=== PATIENT | male | born 1955 | race Caucasian/White ===

== ENCOUNTER 2022-09-13 20:25 | Emergency (ER) | payer OTHER, MEDICARE, SELFPAY ==
[2022-09-13 20:26] VITALS: BP 139/86; PULSE 71; RESP 16; TEMP 36.2; O2SAT 97
[2022-09-13 20:56] VITALS: BMI 25.0
--- NOTE | 2022-09-13 21:04 | RAD_ITS ---
INDICATION: Injury/Pain EXAMINATION/TECHNIQUE: X-RAY - RIGHT XR Foot 3 VIEWS COMPARISON: FINDINGS: SOFT TISSUES: No soft tissue swelling or gas. No radiopaque foreign body. BONES/JOINTS: No acute fracture or subluxation.. There is an orthopedic screw through the distal end of the talus. Normal alignment. Preservation of the joint space.. No sclerotic or destructive changes observed. RAD/Foot min 3 Views IMPRESSION: No acute bony injury. Electronically Signed: Brady Feliciano DO at 22:49 EDT ,
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
--- NOTE | 2022-09-13 22:14 | ED.RN ---
Pt initially states he needed drug screening, then later told another RN he did not. Later this RN called to room, pt stating he made a mistake and really does need drug screening per employer request. Pt had configuration release manager Christian Rodriguez on speaker phone with this RN at bedside. Christian states pt is required to have drug screening. Cindy Care still in ED, Mireya notified and states she will go speak to pt.
--- NOTE | 2022-09-13 22:23 | ED.RN ---
After speaking to Mireya from [facility], Christian Rodriguez employer's ship manager decided pt did not require drug screen.
== END 2022-09-13 23:20 | disposition home or self-care (01) ==
PROVIDERS: Emergency Provider Emergency Medicine; Visit Provider Emergency Medicine
DX: S93.601A Unspecified sprain of right foot, initial encounter (principal); F17.210 Nicotine dependence, cigarettes, uncomplicated; V09.29XA Pedestrian injured in traffic accident involving other motor vehicles, initial encounter; Y99.0 Civilian activity done for income or pay
CPT/HCPCS: 73630; 99283

== ENCOUNTER 2024-11-16 05:55 | Inpatient (IN) | payer MEDICARE, BC, SELFPAY ==
[2024-11-16] VITALS (10 sets, daily range): BP systolic 115–151; BP diastolic 70–80; PULSE 71–97; RESP 15–22; TEMP 36.9–39.6; O2SAT 93–99; BMI 24.8
--- NOTE | 2024-11-16 06:08 | CT_ITS ---
EXAM: CT Head Without Intravenous Contrast CLINICAL INDICATION: HEADACHE TECHNIQUE: Axial computed tomography images of the head/brain without intravenous contrast. This CT exam was performed using one or more of the following dose reduction techniques: automated exposure control, adjustment of the mA and/or kV according to patient size, and/or use of iterative reconstruction technique. COMPARISON: No relevant prior studies available. FINDINGS: BRAIN AND EXTRA-AXIAL SPACES: The cerebral and cerebellar sulci are mildly prominent consistent with mild brain atrophy. No acute intracranial hemorrhage, midline shift or mass effect. If symptoms persist, further evaluation with MRI is recommended. Mild areas of decreased attenuation in the deep cerebral white matter are consistent with mild small vessel ischemic/degenerative changes. BONES/JOINTS: Unremarkable. No acute fracture. SOFT TISSUES: Unremarkable. SINUSES: Mucosal thickening of the ethmoid sinuses. MASTOID AIR CELLS: Unremarkable as visualized. No mastoid effusion. CT/Brain/Head without Contrast IMPRESSION: 1. No acute intracranial hemorrhage, midline shift or mass effect. If symptoms persist, further evaluation with MRI is recommended. 2. Mild small vessel ischemic/degenerative changes. Reading Location: [id number]
[2024-11-16] MEDS: 0.9% Normal Saline (1000mL) 1,000 ML 999 ML IV (06:32)
--- NOTE | 2024-11-16 06:45 | RAD_ITS ---
EXAM: XR Chest, 1 View CLINICAL INDICATION: WEAKNESS TECHNIQUE: Frontal view of the chest. COMPARISON: No relevant prior studies available. FINDINGS: LUNGS AND PLEURAL SPACES: Unremarkable. No consolidation. No pneumothorax. HEART: Unremarkable. No cardiomegaly. MEDIASTINUM: Unremarkable. Normal mediastinal contour. BONES/JOINTS: Unremarkable. No acute fracture. RAD/Chest 1 View (Portable) IMPRESSION: No acute cardiopulmonary process. Reading Location: [id number]
--- OUTSIDE RECORDS SUMMARY | 2024-11-16 06:52 | XMS RPT_ITS | CCD ---
Author Organization [facility] Care Team Providers Care Model Maker Name Role Phone Unknown, Referring Provider Unavailable Unav ailable PCP, NONE Primary Care Unavailable Ryan Cohn Attending Unavailable Ryan Cohn Attending Unavailable Ryan Cohn Primary Care Unavailable DOMINIC WEBBER Attending Unavail able DOMINIC WEBBER Referring Unavail able UNKNOWN, PCP Primary Care Unavailable Ryan Cohn Attending Unavailable UNKNOWN, PCP Primary Care Unavailable Unavailable Primary Care Provider Unavailabl e Unavailable Unavailable Dr. Juana Scales Attending Unava ilable Danica, Dr. House Admitting Unava ilable Danica, Dr. House Attending Unava ilable Danica, Dr. House Referring Unava ilable Danica, Dr. House Admitting Unava ilable Erik Cota MD Primary Care Provider Ms. Svitlana Chino Attending U Anya Barriga RN Unavailable [phone] UNKNOWN, PCP Primary Care Unavailable MD JUANA SCALES Referring Unavai labMD JUANA Jason Attending Unavai labjodi UNKNOWN, PCP Primary Care Unavailable MD RYAN COHN Attending Unavailable Ryan Cohn Admitting Unavailable RYLEE HOLBROOK Attending Unavailable MD RYAN COHN Admitting Unavailable MD RYAN COHN Admitting Unavailable UNKNOWN, PCP Primary Care Unavailable MD RYAN COHN Attending Unavailable UNKNOWN, PCP Primary Care Unavailable MD RYAN COHN Attending Unavailable UNKNOWN, PCP Primary Care Unavailable MD RYAN COHN Referring Unavailable Erica, Dr. Scott Carmona Attending Jeannie vailable UNKNOWN, PCP Primary Care Unavailable MD RYAN COHN Referring Unavailable Erica, Dr. Scott Carmona Attending Jeannie vailable MD RYAN COHN Admitting Unavailable UNKNOWN, PCP Primary Care Unavailable MD YRAN COHN Attending Unavailable UNKNOWN, PCP Primary Care Unavailable MD RYAN COHN Attending Unavailable MD RYAN COHN Admitting Unavailable UNKNOWN, PCP Primary Care Unavailable Toni, Ms. Salgado Fatimah Attending Unav ailable UNKNOWN, PCP Primary Care Unavailable MD RYAN COHN Referring Unavailable Sanket Burgess Attending Unavailable UNKNOWN, PCP Primary Care Unavailable Sanket Burgess Referring Unavailable Sanket Burgess Attending Unavailable UNKNOWN, PCP Primary Care Unavailable MD RYAN COHN Referring Unavailable Lauren, Dr. Matt Colón Attending Unavailab le UNKNOWN, PCP Primary Care Unavailable ANTONY, JAMES TAYLOR Referring Unavailable ANTONY, JAMES TAYLOR Attending Unavailable UNKNOWN, UNKNOWN Referring Unavailable MD JUANA SCALES Attending MD JUANA Jim Referring MD JUANA Jim Attending Ori de la fuente UNKNOWN, PCP Primary Care Unavailable MD JUANA SCALES Referring MD JUANA Jim Attending Ori labjodi UNKNOWN, PCP Primary Care Unavailable MD JUANA SCALES Referring MD UJANA Jim Attending Ori labjodi Rahman MD Tatiana Unavailable Unavailable Primary Care Provider Unavailabl e JUANA SCALES Attending Unavailab Erik Ludwig MD Primary Care Provider Spieldenner Gildardo RAMIREZ Primary Care Provide r GILDARDO FOSTER Primary Care Unavaila JESSE Nguyễn Attending Unavailable YON QUINTEROS Referring Unavaila ble YON QUINTEROS Admitting Unavaila ble ALDAIR, HARSH STEVENSON Attending Unavailable GILDARDO FOSTER Primary Care Unavaila ble SPIGILDARDO MCHUGH Primary Care Unavaila ble ALDAIR, HARSH STEVENSON Attending Unavailable ALDAIR, HARSH STEVENSON Admitting Unavailable GILDARDO FOSTER Primary Care Unavaila ble SPIELDENNEGILDARDO Johnson Attending Unavaila ble SPIELDENNER, GILDARDO DELGADO Primary Care Unavaila ble SPIELDENNER, GILDARDO DELGADO Attending Unavaila ble SORTFRANTZ FLANNERY Attending Unavailable SPIELDENNER, GILDARDO DELGADO Primary Care Unavaila ble SPIELDENNER, GILDARDO DELGADO Primary Care Unavaila ble SPIELDENNER, GILDARDO DELGADO Attending Unavaila ble SPIELDENNER, GILDARDO DELGADO Referring Unavaila ble SPIELDENNER, GILDARDO DELGADO Admitting Unavaila ble SPIELDENNER, GILDARDO DELGADO Primary Care Unavaila ble ALCANTARA, SAHIL LEAL Attending Unavailab le SPIELDENNER, GILDARDO DELGADO Primary Care Unavaila ble ALCANTARA, SAHIL LEAL Attending Unavailab le SPIELDENNER, GILDARDO DELGADO Primary Care Unavaila ble HERON WILLIS Attending Unavaila ble ALDAIR, YON HCALO Referring Unavaila ble Generic Provider MD, No Assigned Pcp Primary Car e Provider Unavailable Barata Rodolfo RENE Unavailable Generic Provider MD, No Assigned Pcp Primary Car e Provider Unavailable Podlogar HEAD START DIRECTOR.JAMES, Naima Unavailable ALEX RODOLFO Alona Attending Unavailable GENERIC PROVIDER, NO ASSIGNED PCP Primary Care Unavailable GENERIC PROVIDER, NO ASSIGNED PCP Primary Care Unavailable BARATA RODOLFO M Attending Unavailable GENERIC PROVIDER, NO ASSIGNED PCP Primary Care Unavailable BARATA, RODOLFO M Attending Unavailable BARATA, RODOLFO M Referring Unavailable GENERIC PROVIDER, NO ASSIGNED PCP Primary Care Unavailable GENERIC PROVIDER, NO ASSIGNED PCP Primary Care Unavailable BARATA, RODOLFO M Attending Unavailable GENERIC PROVIDER, NO ASSIGNED PCP Primary Care Unavailable BARATA, RODOLFO M Referring Unavailable GENERIC PROVIDER, NO ASSIGNED PCP Primary Care Unavailable BARATA, RODOLFO M Referring Unavailable GENERIC PROVIDER, NO ASSIGNED PCP Primary Care Unavailable BARATA, RODOLFO M Attending Unavailable BARATA, RODOLFO M Referring Unavailable GENERIC PROVIDER, NO ASSIGNED PCP Primary Care Unavailable ROSALINDA HUYNH Referring Unavailable SPIELDENNER, GILDARDO DELGADO Attending Unavaila ble SPIELDENNER, GILDARDO DELGADO Primary Care Unavaila ble YON QUINTEROS Attending Unavaila ble SPIELDENNER, GILDARDO DELGADO Primary Care Unavaila ble QUINTEROS, YON GIRISHKAYLEIGH Referring Unavaila ble SPIELDENNER, GILDARDO DELGADO Primary Care Unavaila ble YON QUINTEROS Attending Unavaila ble QUINTEROS, YON GIRISHKAYLEIGH Referring Unavaila ble SPIELDENNER, GILDARDO DELGADO Primary Care Unavaila ble ISAI BAZAN Attending Unavailab ISAI Pinto Referring Unavailab SAHIL Foster Admitting Unavailab SAHIL Foster Attending Unavailab le SPIELDENNERGILDARDO Primary Care Unavaila ble SPIELDENNER, GILDARDO DELGADO Primary Care Unavaila ble ALDAIR, YON ISABEL Attending Unavaila ble ALDAIR, YON ISABEL Referring Unavaila ble SPIELDENNER, GILDARDO DELGADO Primary Care Unavaila ble SPIELDENNER, GILDARDO DELGADO Attending Unavaila ble SPIELDENNER, GILDARDO DELGADO Referring Unavaila ble SPIELDENNER, GILDARDO DELGADO Primary Care Unavaila ble SPIELDENNER, GILDARDO DELGADO Attending Unavaila ble SPIELDENNER, GILDARDO DELGADO Referring Unavaila ble SPIELDENNER, GILDARDO DELGADO Primary Care Unavaila ble ALDAIR, YON ISABEL Referring Unavaila ble ALDAIR, YON ISABEL Attending Unavaila ble QUINTEROS, YON ISABEL Attending Unavaila ble SPIELDENNERGILDARDO Primary Care Unavaila ble QUINTEROS, YON ISABLE Referring Unavaila ble Knoble HEAD START DIRECTOR.TOOL GRINDER SET UP OPERATOR GEAR, Chasidy Unavailable Knbrielle HEAD START DIRECTOR.TOOL GRINDER SET UP OPERATOR GEAR, Chasidy Unavailable KAVON NINO Referring Unavailable ERIK COTA Primary Care Unavailab le KAVON NINO Referring Unavailable ERIK COTA Primary Care Unavailab le GILDARDO FOSTER Primary Care Unavaila ble ALDAIR, YON ISABEL Attending Unavaila ble SPIELDENNERGILDARDO Primary Care Unavaila ble QUINTEROS, YON ISABEL Attending Unavaila ble SPIELDENNERGILDARDO Admitting Unavaila ble ALDAIR, YON ISABEL Attending Unavaila ble SPIELDENNEGILDARDO Johnson Referring Unavaila ble SPIELDENNERGILDARDO Primary Care Unavaila ble Sobia Oakes MD Unavailable ALINA BRYSON Attending Unavailable ERIK COTA Primary Care Unavailab AMADEO Lucero Attending Unavailable PREGABBY ALINA Referring Unavailable ERIK COTA Primary Care Unavailab le PREBISH, ALINA Attending Unavailable TOM COTAER B Primary Care Unavailab le PREBISH, ALINA Attending Unavailable ERIK COTA Primary Care Unavailab AMADEO Lucero Attending Unavailable PREBISH, ALINA Referring Unavailable OSIRIS COTAOPHER B Primary Care Unavailab le PREBISH, ALINA Attending Unavailable OSIRIS COTAOPHER B Primary Care Unavailab le PREBIJERSEY, ALINA Attending Unavailable ERIK COTA Primary Care Unavailab AMADEO Lucero Attending Unavailable PREBISH, ALINA Referring Unavailable JETTLEY, CHRISTOPHER B Primary Care Unavailab le Knoble HEAD START DIRECTOR.TOOL GRINDER SET UP OPERATOR GEAR, Chasidy Unavailable PODLOGAR, NAIMA Referring Unavailable ERIK COTA B Primary Care Unavailab le MONICA JUNG Referring Unavailable CIPRIANO, OSIRISOPHER B Primary Care Unavailab le OSIRIS COTAOPHER B Primary Care Unavailab le MONICA JUNG Referring Unavailable TOM COTAER B Primary Care Unavailab SOBIA Voss Attending Unavailable OSIRIS COTAOPHER B Primary Care Unavailab le KAVON NINO Referring Unavailable CIPRIANO CHRISTOPHER B Primary Care Unavailab le MONICA JUNG Referring Unavailable OSIRIS COTAOPHER B Primary Care Unavailab le MONICA JUNG Referring Unavailable TOM COTAER B Primary Care Unavailab le MONICA JUNG Referring Unavailable PODNAIMA INFANTE Attending Unavailable OSIRIS COTAOPHER B Primary Care Unavailab le JETTLEY, CHRISTOPHER B Primary Care Unavailab le JETTLEY, CHRISTOPHER B Primary Care Unavailab le KAVON NINO Attending Unavailable OSIRIS COTAOPHER B Primary Care Unavailab le MONICA JUNG Attending Unavailable OSIRIS COTAOPHER B Primary Care Unavailab le CIPRIANO CHRISTOPHER B Primary Care Unavailab le MONICA JUNG Referring Unavailable OSIRIS COTAOPHER B Primary Care Unavailab le MONICA JUNG Attending Unavailable TOM COTAER B Primary Care Unavailab le MONICA JUNG Referring Unavailable PODLOGNAIMA MONTILLA Referring Unavailable OSIRIS COTAOPHER B Primary Care Unavailab le CIPRIANO, CHRISTOPHER B Primary Care Unavailab le JETTLEY, CHRISTOPHER B Primary Care Unavailab le PREBIJERSEY, ALINA Referring Unavailable MONICA JUNG Attending Unavailable TOM COTAER B Primary Care Unavailab le CIPRIANO, CHRISTOPHER B Primary Care Unavailab le MASCMONICA Rucker Referring Unavailable MONICA JUNG Attending Unavailable TOM COTAER B Primary Care Unavailab le CIPRIANO, CHRISTOPHER B Primary Care Unavailab le SOBIA OAKES Attending Unavailable TOM COTAER B Primary Care Unavailab le PODLOGNAIMA MONTILLA Attending Unavailable TOM COTAER B Primary Care Unavailab le CIPRIANO, CHRISTOPHER B Primary Care Unavailab le SOBIA OAKES Attending Unavailable MONICA JUNG Referring Unavailable MONICA JUNG Attending Unavailable OSIRIS COTAOPHER B Primary Care Unavailab le CIPRIANO, CHRISTOPHER B Primary Care Unavailab le CIPRIANO, OSIRISOPHER B Primary Care Unavailab le MASCMONICA Rucker Referring Unavailable MONICA JUNG Attending Unavailable TOM COTAER B Primary Care Unavailab le CIPRIANO, CHRISTOPHER B Primary Care Unavailab le KURT, DAJUAN Referring Unavailable SOBIA OAKES Attending Unavailable TOM COTAER B Primary Care Unavailab le MASCMONICA Rucker Referring Unavailable OSIRIS COTAOPHER B Primary Care Unavailab le SOBIA OAKES Attending Unavailable OSIRIS COTAOPHER B Primary Care Unavailab le CIPRIANO, CHRISTOPHER B Primary Care Unavailab KAVON Soto Referring Unavailable PODLOGARNAIMA Referring Unavailable OSIRIS COTAOPHER B Primary Care Unavailab le CIPRIANO, OSIRISOPHER B Primary Care Unavailab le CIPRIANO, CHRISTOPHER B Primary Care Unavailab le CIPRIANO, CHRISTOPHER B Primary Care Unavailab le CIPRIANO, CHRISTOPHER B Primary Care Unavailab le JETTLEY, CHRISTOPHER B Primary Care Unavailab SOBIA Voss Attending Unavailable OSIRIS COTAOPHER B Primary Care Unavailab le MONICA JUNG Referring Unavailable MONICA JUNG Referring Unavailable OSIRIS COTAOPHER B Primary Care Unavailab le CIPRIANO, OSIRISOPHER B Primary Care Unavailab le MASCMONICA Rucker Referring Unavailable OSIRIS COTAOPHER B Primary Care Unavailab ADIEL Marks Attending Unavailable PODLOGNAIMA MONTILLA Referring Unavailable TOM COTAER B Primary Care Unavailab le PODLOGNAIMA MONTILLA Referring Unavailable BROWN, AIMEE TANYA Attending Unavailable ERIK COTA Primary Care Unavailab ERIK Ludwig Primary Care Unavailab jodi Allergies Allergy Classification Reported Allergen(s) Allergy Type Date of Onset Reaction(s) Facility Corticosteroids (3 sources) predniSONE Drug Allergy 3 Other (See Comments) [facility] Opioid Agonists (3 sources) Morphine Drug Allergy 3 Itching, Rash [facility] (20 sources) Morphine; Translations: [morphine] Drug Allergy 3 Rash, Itching [facility] (20 sources) predniSONE; Translations: [predniSONE] Drug Allergy 3 Mental Status Change, Other (See Comments), Other [facility] (1 source) ALLERGIES NOT ON FILE; Translations: [ALLERGIES NOT ON FILE] Propensity to adverse reactions (disorder) [facility] 1 Repository Medications Current Medications Medication Drug Class(es) Dates Sig (Normalized) Sig (Original) [id number] 200 actuat albuterol 0.09 mg/actuat metered dose inhaler (20 sources) beta2-Adrenergic Agonist Start: 09-24-2023 End: 03-22-2024 take 2 puff(s) by inhalation every four hours as needed for cough albuterol 90 mcg/actuation inhaler Inhale 2 (two) puffs every 4 (four) hours as needed for wheezing, shortness of breath or cough . 12 g 5 09/24/2023 Active Start: 01-31-2023 End: 09-14-2024 take 2 puff(s) by inhalation every four hours as needed for wheezing albuterol HFA (VENTOLIN HFA) 90 mcg/actuation inhaler Indications: Chronic obstructive pulmonary disease, unspecified COPD type (HCC) Inhale 2 puffs as instructed every 4 hours as needed for wheezing/shortness of breath. 1 each 5 09/14/2024 Active Comment on above: Inhale 2 Puffs as in structed every 4 hours as needed for wheezing/shortness of breath. ALPRAZolam 0.5 mg disintegrating oral tablet (3 sources) Benzodiazepine Start: End: ALPRAZolam 0.5 mg dissolvable tablet Indications: ACUTE PROCEDURE-RELATED ANXIETY BRING 2 TABLETS TO PROCEDURE LOCATION ON THE DAY OF PROCEDURE, TO BE ADMINISTERED BY STAFF 2 tablet 0 06/06/2023 06/06/2023 Active Comment on above: BRING 2 TABLETS TO [facility] LOCATION ON THE DAY OF PROCEDURE, TO BE ADMINISTERED BY STAFF amLODIPine 5 mg oral tablet (20 sources) Dihydropyridine Calcium Channel Nabil Start: End: take 1 tablet by mouth once daily amLODIPine (NORVASC) 5 mg tablet Take 1 tablet by mouth once daily. 90 tablet 1 09/14/2024 Active aspirin 81 mg delayed release oral tablet (20 sources) Platelet Aggregation Inhibitor, Nonsteroidal Anti-inflammatory Drug take 1 tablet by mouth once daily aspirin, enteric coated (ASPIRIN, ENTERIC COATED) 81 mg EC tablet Take 81 mg by mouth once daily. Active Comment on above: Take 81 mg by mouth once daily. atenolol 25 mg oral tablet (20 sources) beta-Adrenergic Nabil Start: atenolol (TENORMIN) 25 mg tablet Take one tablet daily along with the 50 mg tablet to equal 75 mg daily 90 tablet 1 09/14/2024 Active Start: 08-11-2023 End: 03-01-2024 atenolol (TENORMIN) 25 mg ta blet Take one tablet daily along with 50 mg to equal 75 mg daily 30 tablet 1 08/11/2023 03/01/2024 Discontinued (Duplicate Entry) Start: 08-05-2023 End: 09-14-2024 atenolol (TENORMIN) 50 mg ta blet Take one tablet daily along with 25 mg tablet to equal 75 mg daily 90 tablet 09/14/2024 Active Start: 07-16-2023 take 1 tablet by samy th once daily atenolol (TENORMIN) 25 mg tablet Indications: Essential hypertension Take 1 tablet by mouth once daily. 30 tablet 1 07/16/2023 Active Comment on above: Take 1 tablet by samy th once daily. atorvastatin 40 mg oral tablet (20 sources) HMG-CoA Reductase Inhibitor Start: End: take 1 tablet by mouth once daily at bedtime for hyperlipidemia atorvastatin (LIPITOR) 40 mg tablet Take 1 tablet by mouth daily at bedtime. For cholesterol. 90 tablet 09/14/2024 03/13/2025 Active Comment on above: Take 1 tablet by samy th daily at bedtime. For cholesterol. azithromycin 250 mg oral tablet (5 sources) Macrolide Antimicrobial Start: End: take 2 tablets by mouth once daily, then take 1 tablet by mouth once daily azithromycin (ZITHROMAX) 250 mg tablet Indications: Acute cough , COPD with exacerbation (HCC) Take 2 tablets by mouth once daily for 1 day, THEN 1 tablet once daily for 4 days. 6 tablet 03/01/2024 03/06/2024 Active benoxinate hydrochloride 4 mg/ml / fluorescein sodium 3 mg/ml ophthalmic solution (2 sources) Diagnostic Dye Start: End: fluorescein-benoxi bony 0.3-0.4 % 1 drop (FLURESS) Start: 10-19-2024 End: 10-19-2024 1 drop, BOTH EYES, DIRECT ED, Starting on Fri10/19/24 at 1000, Until Fri10/19/24 at 2159, Administer for applanation tonometry. In the event of a Fluress shortage, administer [place]-Fluor 1 drop into both eyes as directed for applanation tonometry beta-carotene,A,-vits C,E/mi ns (OCUVITE ORAL) (20 sources) take 1 tablet by mouth once daily beta-carotene,A,-vits C,E/mins (OCUVITE ORAL) Take 1 tablet by mouth once daily. Active take 1 tablet by mouth once titi y beta-carotene,A,-vits C,E/mins (OCUVITE ORAL) Take 1 tablet by mouth once daily. 0 Active take 1 tablet by mouth once titi y beta-carotene,A,-vits C,E/mins (OCUVITE ORAL) Take 1 tablet by mouth once daily. 0 Suspended Comment on above: Take 1 tablet by samy th once daily. Calcium Carbonate (20 sources) take 1 tablet by mouth once daily calcium carbonate (CALCIUM 600 ORAL) Take 1 tablet by mouth once daily. Active take 1 tablet by mouth once titi y calcium carbonate (CALCIUM 600 ORAL) Take 1 tablet by mouth once daily. 0 Active take 1 tablet by mouth once titi y calcium carbonate (CALCIUM 600 ORAL) Take 1 tablet by mouth once daily. 0 Suspended Comment on above: Take 1 tablet by samy th once daily. cholecalciferol 0.05 mg oral tablet (20 sources) Vitamin D take 1 tablet by mouth once daily cholecalciferol (VITAMIN D-3) 50 mcg (2,000 unit) tablet Take 2,000 Units by mouth once daily. Active Comment on above: Take 2,000 Units by mouth once daily. cyclobenzaprine hydrochloride 10 mg oral tablet (20 sources) Muscle Relaxant Start: 2023 End: 2024 cyclobenzaprine (FLEXERIL) 10 mg tablet Indications: Myalgia Take 1 tablet by mouth as directed. 1/2 to 1 tablet po qhs as needed for spasm 30 tablet 5 06/18/2024 Active Comment on above: Take 1 tablet by samy th as directed. 1/2 to 1 tablet po qhs as needed for spasm dexamethasone 1 mg oral tablet (15 sources) Corticosteroid Start: 2024 take 1 tablet by mouth once daily at breakfast dexAMETHasone (DECADRON) 1 mg tablet Take 1 mg by mouth daily with breakfast. 09/23/2024 Active Start: 08-16-2024 End: 08-16-2024 dexAMETHasone sodium phospha te 10 mg injection (DECADRON) Start: 08-16-2024 End: 08-16-2024 10 mg, OTHER, ONCE, 1 dose, On 08/16/24 at 1230, Administer over 5 minutes. enzalutamide 80 mg oral tablet (20 sources) Androgen Receptor Inhibitor Start: 08-27-2024 take 2 tablets by mouth once daily in the evening enzalutamide (XTANDI) 80 mg tablet Indications: Malignant neoplasm of prostate metastatic to bone (HCC) Take 2 tablets (160 mg) by mouth once daily. 60 tablet 5 11/01/2024 2:11 PM EDT 08/27/2024 Active famotidine 40 mg oral tablet (20 sources) Histamine-2 Receptor Antagonist Start: 10-30-2023 End: 09-14-2025 take 1 tablet by mouth once daily famotidine (PEPCID) 40 mg tablet Take 1 tablet by mouth once daily. 30 tablet 11 09/14/2024 09/14/2025 Active fluticasone-umecli din-vilanter (TRELEGY ELLIPTA) 200-62.5-25 mcg inhalation powder (13 sources) Start: 09-24-2024 take 1 puff(s) by inhalation once daily fluticasone-umeclid in-vilanter (TRELEGY ELLIPTA) 200-62.5-25 mcg inhalation powder Indications: Asthma-COPD overlap syndrome (HCC) Inhale 1 puff as instructed once daily. 1 each 09/24/2024 Active levoFLOXacin 500 mg oral tablet (2 sources) Quinolone Antimicrobial Start: 09-02-2023 End: 09-09-2023 take 1 tablet by mouth once daily levoFLOXacin (LEVAQUIN) 500 MG tablet Take 1 (one) tablet (500 mg total) by mouth daily for 7 days . 7 tablet 0 09/02/2023 09/09/2023 Active lisinopril 40 mg oral tablet (20 sources) Angiotensin Converting Enzyme Inhibitor Start: 05-05-2023 End: 03-13-2025 take 1 tablet by mouth once daily lisinopril (ZESTRIL) 40 mg tablet Indications: Mixed hyperlipidemia Take 1 tablet by mouth once daily. 90 tablet 09/14/2024 03/13/2025 Active Start: 03-17-2023 End: 05-05-2023 take 1 tablet by mouth once daily lisinopril (ZESTRIL) 20 mg tablet Take 1 tablet by mouth once daily. 90 tablet 1 03/17/2023 05/05/2023 Discontinued Comment on above: Take 20 mg by mouth once daily. Take 1 tablet by samy th once daily. meloxicam 15 mg oral tablet (20 sources) Nonsteroidal Anti-inflammatory Drug Start: 10-25-2024 take 1 tablet by mouth once daily meloxicam (MOBIC) 15 mg tablet Take 1 tablet by mouth once daily. 30 tablet 5 10/25/2024 Active Start: 10-25-2022 End: 12-16-2023 take 1 tablet by mouth once daily meloxicam (Mobic) 15 mg tablet Take 1 tablet (15 mg) by mouth once daily. 03/05/2023 Active Comment on above: Take 1 tablet by samy th once daily. With food. Multivitamin capsule (20 sources) take 1 capsule by mouth once daily Multivitamin capsule Take 1 capsule by mouth once daily. Active take 1 capsule by mouth once lalit ly Multivitamin capsule Take 1 capsule by mouth once daily. 0 Active take 1 capsule by mouth once lalit ly Multivitamin capsule Take 1 capsule by mouth once daily. 0 Suspended Comment on above: Take 1 capsule by mo uth once daily. multivitamin with minerals cap (20 sources) take 1 capsule by mouth once daily multivitamin with minerals cap Take 1 capsule by mouth daily . Active take 1 capsule by mouth once lalit ly multivitamin with minerals cap Take 1 capsule by mouth daily . 0 Active multivitamin with minerals capsule (6 sources) take 1 capsule by mouth once daily multivitamin with minerals capsule Take 1 capsule by mouth once daily. Active nicotine 4 mg inhalation solution (13 sources) Cholinergic Nicotinic Agonist nicotine (Nicotrol) 10 mg inhaler Inhale. Active End: 10-30-2023 nicotine (Nicotrol) 10 mg in haler 10/30/2023 Discontinued (Patient's Request) omeprazole 40 mg delayed release oral capsule (20 sources) Proton Pump Inhibitor Start: 02-28-2023 End: 12-13-2024 take 1 capsule by mouth twice daily omeprazole (PRILOSEC) 40 mg capsule Take 1 capsule by mouth two times a day. 180 capsule 09/14/2024 12/13/2024 Active End: 02-26-2023 take 1 capsule by mouth twice daily omeprazole (PRILOSEC) 40 mg capsule Take 40 mg by mouth twice daily. 0 02/26/2023 Discontinued Comment on above: Take 40 mg by mouth twice daily. Take 1 capsule by [facility] two times a day. oxyCODONE hydrochloride 5 mg oral tablet (1 source) Opioid Agonist Start: End: take 1 tablet by mouth every six hours as needed for pain oxyCODONE IR (ROXICODONE) 5 mg immediate release tablet Indications: Malignant neoplasm of prostate metastatic to bone (HCC) , Bilateral hip pain Take 1 tablet by mouth every 6 hours as needed for pain for up to 7 days. FOR PAIN. 28 tablet 08/27/2024 09/03/2024 Active phenylephrine hydrochloride 25 mg/ml ophthalmic solution (2 sources) alpha-1 Adrenergic Agonist Start: End: PHENYLephrine 2.5 % 1 drop (AK-DILATE, NAOMI-SYNEPHRINE) Start: 10-19-2024 End: 10-19-2024 1 drop, BOTH EYES, DIRECT ED, Starting on Fri10/19/24 at 1000, Until Fri10/19/24 at 2159, Administer for dilation PROTECT FROM LIGHT pregabalin 150 mg oral capsule (20 sources) Start: 09-14-2024 End: 01-12-2025 take 1 capsule by mouth three times daily pregabalin (LYRICA) 150 mg capsule Indications: Spinal stenosis of lumbar region with neurogenic claudication Take 1 capsule by mouth three times a day for 120 days. 90 capsule 3 09/14/2024 01/12/2025 Active Start: 06-04-2024 End: 12-01-2024 take 1 capsule by mouth three times daily pregabalin (LYRICA) 100 mg capsule Indications: Spinal stenosis of lumbar region with neurogenic claudication Take 1 capsule by mouth three times a day for 30 days. 90 capsule 09/06/2024 10/06/2024 Active Start: 03-11-2024 End: 11-09-2024 take 1 capsule by mouth twice daily pregabalin (LYRICA) 100 mg capsule Indications: Spinal stenosis of lumbar region with neurogenic claudication Take 1 capsule by mouth two times a day for 180 days. 180 capsule 1 05/13/2024 06/04/2024 Discontinued Start: 10-30-2023 End: 10-30-2023 take 2 capsules by mouth once daily pregabalin (LYRICA) 75 MG capsule Indications: Chronic bilateral low back pain without sciatica Take 2 (two) capsules (150 mg total) by mouth nightly . 180 capsule 1 10/30/2023 Active Start: 05-01-2023 End: 07-05-2024 pregabalin (LYRICA) 75 mg ca psule Indications: fibromyalgia Take one pill twice daily 60 capsule 5 05/01/2023 07/05/2024 Discontinued Comment on above: Take one pill twice daily sennosides, halfway 8.6 mg oral tablet (20 sources) Start: 025 take 1 tablet by mouth twice daily senna (SENOKOT) 8.6 mg tab Take 1 tablet by mouth two times a day. 09/14/2024 Active sildenafil 100 mg oral tablet (13 sources) Phosphodiesterase 5 Inhibitor End: 024 sildenafil (Viagra) 100 mg tablet Take 1 tablet (100 mg) by mouth if needed. Active spironolactone 25 mg oral tablet (20 sources) Aldosterone Antagonist Start: End: take 1 tablet by mouth once daily spironolactone (ALDACTONE) 25 MG tablet Take 1 (one) tablet (25 mg total) by mouth daily . 90 tablet 3 10/30/2023 Active Comment on above: Take 1 tablet by samy once daily. tiZANidine 4 mg oral tablet (13 sources) Central alpha-2 Adrenergic Agonist End: take 1 tablet by mouth every eight hours tiZANidine (Zanaflex) 4 mg tablet Take 1 tablet (4 mg) by mouth every 8 hours. Active tropicamide 10 mg/ml ophthalmic solution (2 sources) Anticholinergic Start: End: tropicamide 1 % 1 drop (MYDRIACYL) Start: 10-19-2024 End: 10-19-2024 1 drop, BOTH EYES, DIRECT ED, Starting on Fri10/19/24 at 1000, Until Fri10/19/24 at 2159, Administer for dilation Completed/Discontinued Medications Medication Drug Class(es) Dates Sig (Normalized) Sig (Original) 0.9% NaCl 10 mL flush (5 sources) Start: 08-16-2024 End: 08-16-2024 0.9% NaCl 10 mL flush Start: 08-16-2024 End: 08-16-2024 10 mL, OTHER, ONCE, 1 dose, On Fri08/16/24 at 1230 Start: 04-26-2024 End: 04-26-2024 0.9% NaCl 10 mL flush Start: 04-26-2024 End: 04-26-2024 10 mL, OTHER, ONCE, 1 dose, On Fri04/26/24 at 1000 Start: 07-16-2023 End: 07-16-2023 0.9% NaCl 10 mL flush acetaminophen 325 mg oral tablet (20 sources) Start: 10-05-2024 End: 10-05-2024 take 1 dose by mouth once, then take 4000 mg by mouth once daily 650 mg, ORAL, ONCE, 1 dose, On Fri10/05/24 at 1530, No more than 4000 mg of acetaminophen should be given per day (FROM ALL SOURCES) take 2 tablets by mo [facility] every eight hours as needed acetaminophen (TYLENOL EXTRA STRENGTH) 5 00 mg tablet Take 1,000 mg by mouth every 8 hours as needed. Active Comment on above: Take 1,000 mg by samy th every 8 hours as needed. 20 ml bupivacaine hydrochloride 7.5 mg/ml injection (3 sources) Amide Local Anesthetic Start: 07-16-2023 End: 07-16-2023 bupivacaine(PF) 0.75 % (7.5 mg/mL) 7.5 mg injection (MARCAINE PF) Start: 06-04-2023 End: 06-04-2023 bupivacaine(PF) 0.75 % (7.5 mg/mL) 7.5 mg injection (MARCAINE PF) Start: 05-21-2023 End: 05-21-2023 bupivacaine(PF) 0.75 % (7.5 mg/mL) 7.5 mg injection (MARCAINE PF) cefadroxil 500 mg oral capsule (12 sources) Cephalosporin Antibacterial End: 04-27-2024 cefadroxil (Duricef) 500 mg capsule Take 1 capsule (500 mg) by mouth. 04/27/2024 Discontinued (Therapy completed) celecoxib 200 mg oral capsule (12 sources) Nonsteroidal Anti-inflammatory Drug End: 04-27-2024 celecoxib (CeleBREX) 200 mg capsule Take 1 capsule (200 mg) by mouth. 04/27/2024 Discontinued (Therapy completed) docusate sodium 100 mg oral capsule (20 sources) End: 09-14-2024 take 1 capsule by mouth twice daily docusate sodium (STOOL SOFTENER) 100 mg capsule Take 100 mg by mouth twice daily. 09/14/2024 Discontinued (Course of therapy completed) Comment on above: Take 100 mg by mouth twice daily. [id number] injection 5.85 millicurie (1 source) Start: 04-27-2024 End: 04-27-2024 5.85 millicurie, intravenous, Once in imaging, Starting on Fri04/27/24 at 1335, For 1 dose, Administer 60 minutes prior to imaging unless otherwise indicated. gabapentin 300 mg oral capsule (20 sources) Anti-epileptic Agent Start: 03-17-2023 End: 06-06-2023 take 1 capsule by mouth twice daily gabapentin (NEURONTIN) 300 mg capsule Indications: Chronic bilateral low back pain with bilateral sciatica Take 1 capsule by mouth two times a day for 30 days. 03/17/2023 06/06/2023 Discontinued Start: 03-03-2023 End: 06-01-2023 take 1 capsule by mouth three times daily gabapentin (NEURONTIN) 300 mg capsule Take 1 capsule by mouth three times a day for 90 days. 270 capsule 0 03/03/2023 03/17/2023 Discontinued Start: 11-04-2022 End: 04-27-2024 take 2 capsules by mouth twice daily gabapentin (Neurontin) 300 mg capsule Take 2 capsules (600 mg) by mouth 2 times a day. 11/04/2022 04/27/2024 Discontinued (Therapy completed) End: 02-28-2023 take 1 capsule by mouth three times daily gabapentin (NEURONTIN) 300 mg capsule Take 300 mg by mouth three times daily. 0 02/28/2023 Discontinued Comment on above: Take 300 mg by mouth three times daily. Take 1 capsule by mo uth three times a day for 90 days. Take 1 capsule by mo uth two times a day for 30 days. hydroCHLOROthiazide 25 mg oral tablet (20 sources) Thiazide Diuretic Start: 019 End: take 1 tablet by mouth once daily hydroCHLOROthiazide (HYDRODiuril) 25 mg tablet Take 1 tablet (25 mg) by mouth once daily. 02/12/2023 04/27/2024 Discontinued (Therapy completed) Comment on above: Take 25 mg by mouth once daily. iohexol 300 mg injection (OMNIPAQUE 300) (7 sources) Start: 025 End: iohexol 300 mg injection (OMNIPAQUE 300) Start: 08-16-2024 End: 08-16-2024 300 mg, OTHER, ONCE, 1 dose, On Fri08/16/24 at 1230 Start: 04-26-2024 End: 04-26-2024 iohexol 300 mg injection (OM NIPAQUE 300) Start: 04-26-2024 End: 04-26-2024 300 mg, OTHER, ONCE, 1 dose, On Fri04/26/24 at 1000 Start: 07-16-2023 End: 07-16-2023 iohexol 300 mg injection (OM NIPAQUE 300) Start: 06-04-2023 End: 06-04-2023 iohexol 300 mg injection (OM NIPAQUE 300) Start: 05-21-2023 End: 05-21-2023 iohexol 300 mg injection (OM NIPAQUE 300) 0.375 ml leuprolide acetate 60 mg/ml prefilled syringe (2 sources) Gonadotropin Releasing Hormone Receptor Agonist Start: 10-25-2024 End: 10-25-2024 inject 1 dose by subcutaneous injection once 22.5 mg, SUBCUTANEOUS, ONCE, 1 dose, On Fri10/25/24 at 0830, Hazardous Chemotherapy Drug: Use appropriate PPE. Start: 07-21-2024 End: 07-21-2024 inject 1 dose by subcutaneous injection once 22.5 mg, SUBCUTANEOUS, ONCE, 1 dose, On Fri07/21/24 at 1500, Hazardous Chemotherapy Drug: Use appropriate PPE. 10 ml lidocaine hydrochloride 10 mg/ml injection (11 sources) Antiarrhythmic, Amide Local Anesthetic Start: 08-16-2024 End: 08-16-2024 lidocaine (PF) 10 mg/mL (1 %) 100 mg injection (XYLOCAINE) Start: 08-16-2024 End: 08-16-2024 100 mg, OTHER, ONCE, 1 dose, On Fri08/16/24 at 1230 Start: 05-31-2024 End: 05-31-2024 lidocaine (PF) 10 mg/mL (1 % ) 100 mg injection (XYLOCAINE) Start: 05-31-2024 End: 05-31-2024 100 mg, OTHER, ONCE, 1 dose, On Fri05/31/24 at 1200 Start: 05-31-2024 End: 05-31-2024 lidocaine (PF) 20 mg/mL (2 % ) 200 mg injection (XYLOCAINE) Start: 05-31-2024 End: 05-31-2024 200 mg, OTHER, ONCE, 1 dose, On Fri05/31/24 at 1200 Start: 04-26-2024 End: 04-26-2024 lidocaine (PF) 10 mg/mL (1 % ) 100 mg injection (XYLOCAINE) Start: 04-26-2024 End: 04-26-2024 100 mg, OTHER, ONCE, 1 dose, On Fri04/26/24 at 1000 Start: 07-16-2023 End: 07-16-2023 lidocaine (PF) 20 mg/mL (2 % ) 200 mg injection (XYLOCAINE) Start: 06-04-2023 End: 06-04-2023 lidocaine (PF) 10 mg/mL (1 % ) 100 mg injection (XYLOCAINE) Start: 05-21-2023 End: 05-21-2023 lidocaine (PF) 10 mg/mL (1 % ) 100 mg injection (XYLOCAINE) 1 ml methylPREDNISolone acetate 40 mg/ml injection (8 sources) Corticosteroid Start: 05-31-2024 End: 05-31-2024 methylPREDNISolone acetate 40 mg injection (DEPO-Medrol) Start: 05-31-2024 End: 05-31-2024 40 mg, OTHER, ONCE, 1 dose, On Fri05/31/24 at 1200 Start: 05-13-2024 End: 05-19-2024 methylPREDNISolone (MEDROL, SWEETIE,) 4 mg Dose-Pack As pkg directs 21 tablet 05/13/2024 05/19/2024 Active Start: 04-26-2024 End: 04-26-2024 methylPREDNISolone acetate 4 0 mg injection (DEPO-Medrol) Start: 04-26-2024 End: 04-26-2024 40 mg, OTHER, ONCE, 1 dose, On Fri04/26/24 at 1000 Start: 07-16-2023 End: 07-16-2023 methylPREDNISolone acetate 4 0 mg injection (DEPO-Medrol) No Reported Medications (2 sources) No Reported Medi cations Quantity: 0 Refills: 0 Ordered: 01-Oct-2022 DO Active 10 actuat olodaterol 0.0025 mg/actuat / tiotropium 0.0025 mg/actuat inhalation spray (20 sources) Anticholinergic, beta2-Adrenergic Agonist Start: 09-24-2023 End: 04-27-2024 tiotropium-olodateroL (Stiolto Respimat) 2.5-2.5 mcg/actuation Mist respimat inhaler Inhale 2 (two) puffs daily . 12 g 3 10/30/2023 Active Start: 02-05-2023 End: 12-13-2024 tiotropium-olodaterol (STIOL TO RESPIMAT) 2.5-2.5 mcg/actuation inhaler Inhale 2 puffs as instructed once daily. 90 each 1 09/14/2024 10/25/2024 Discontinued Start: 02-05-2023 End: 03-22-2024 tiotropium-olodateroL (Stiol to Respimat) 2.5-2.5 mcg/actuation mist inhaler Inhale 2 Inhalations once daily. 02/05/2023 Active Comment on above: Inhale 2 Puffs as in structed once daily. simvastatin 40 mg oral tablet (20 sources) HMG-CoA Reductase Inhibitor Start: 3 End: take 1 tablet by mouth once daily at bedtime simvastatin (ZOCOR) 40 mg tablet Take 1 tablet by mouth daily at bedtime. 90 tablet 1 03/17/2023 05/05/2023 Discontinued Start: 01-22-2019 End: 10-30-2023 take 1 tablet by mouth once daily at bedtime simvastatin (Zocor) 10 mg tablet Take 1 tablet (10 mg) by mouth once daily at bedtime. 10/29/2022 Active Comment on above: Take 40 mg by mouth daily at bedtime. Take 1 tablet by samy th daily at bedtime. sulfamethoxazole 800 mg / trimethoprim 160 mg oral tablet (7 sources) Dihydrofolate Reductase Inhibitor Antibacterial, Sulfonamide Antimicrobial Start: 2022 take 1 tablet by mouth every twelve hours Sulfamethoxazole-T rimethoprim 800-160 MG Oral Tablet take 1 tablet by mouth every 12 hours until finished; start 3 days prior to surgery Quantity: 14 Refills: 0 Ordered: 30-Oct-2022 Svitlana Lucio Start : 30-Oct-2022 Active tamsulosin hydrochloride 0.4 mg oral capsule (7 sources) alpha-Adrenergic Nabil Start: 2018 End: 2023 tamsulosin (FLOMAX) 0.4 mg capsule 01/22/2019 10/30/2023 Discontinued (Patient's Request) 10 actuat tiotropium 0.0025 mg/actuat inhalation spray (1 source) Anticholinergic End: 2023 tiotropium bromide (SPIRIVA RESPIMAT) 2.5 mcg/actuation Mist 30 actuat umeclidinium 0.0625 mg/actuat / vilanterol 0.025 mg/actuat dry powder inhaler (1 source) Anticholinergic, beta2-Adrenergic Agonist Start: 2022 End: 2022 take 1 puff(s) by inhalation once daily umeclidinium-vilan terol (ANORO ELLIPTA) 62.5-25 mcg/actuation inhaler Inhale 1 Inhalation as instructed once daily. Inhale one puff once daily. DO NOT CLICK OPEN UNTIL READY FOR DOSE 180 Each 1 02/05/2023 02/05/2023 Discontinued Comment on above: Inhale 1 Inhalation as instructed once daily. Inhale one puff once daily. DO NOT CLICK OPEN UNTIL READY FOR DOSE vit C/E/Zn/coppr/lutein/lucila vernon ([facility]-2 PO) (3 sources) End: 2024 vit C/E/Zn/coppr/lutei n/zeaxan ([facility]-2 PO) Take by mouth. 10/25/2024 Discontinued vit C/E/Zn/coppr /lutein/zeaxan ([facility]-2 PO) Take by mouth. Active 100 ml zoledronic acid 0.04 mg/ml injection (2 sources) Bisphosphonate Start: 11-02-2024 End: 11-02-2024 4 mg, INTRAVENOUS, Administer over 15 Minutes, ONCE, 1 dose, On Fri11/02/24 at 1430, Hazardous Potential Reproductive Risk Drug: Use appropriate PPE. Start: 10-05-2024 End: 10-05-2024 4 mg, INTRAVENOUS, Administe r over 15 Minutes, ONCE, 1 dose, On Fri10/05/24 at 1600, Hazardous Potential Reproductive Risk Drug: Use appropriate PPE. Problems Active Problems Problem Classification Problem Date Documented Da te Episodic/Chronic Acute and unspecified renal failure (4 sources) Acute renal failure syndrome; Translations: [Acute kidney failure, unspecified] Onset: 5 08-20-2024 Episodic Anxiety disorders (1 source) Anticipatory anxiety; Translations: [Anxiety disorder, unspecified] 06-06-2023 Chronic Aortic; peripheral; and visceral artery aneurysms (20 sources) Aortic aneurysm; Translations: [Aortic aneurysm of unspecified site, without rupture] Onset: 4 08-28-2023 Chronic Asthma (1 source) Asthma-chronic obstructive pulmonary disease overlap syndrome; Translations: [Asthma-COPD overlap syndrome (HCC)] 09-24-2024 Chronic Blindness and vision defects (4 sources) Bilateral hyperopia of eyes; Translations: [Hypermetropia, bilateral] Onset: 5 10-19-2024 Episodic Cancer of prostate (20 sources) Malignant tumor of prostate; Translations: [Malignant neoplasm of prostate] Onset: 3 Chronic Cancer of prostate (1 source) Personal history of malignant neoplasm of prostate; Translations: [Personal history of malignant neoplasm of prostate] Onset: 3 Episodic Cardiac dysrhythmias (1 source) Bradycardia, unspecified; Translations: [Bradycardia, unspecified] Onset: Episodic Cataract (2 sources) Nuclear sclerosis; Translations: [Age-related nuclear cataract, bilateral] Onset: 5 10-19-2024 Chronic Chronic obstructive pulmonary disease and bronchiectasis (20 sources) Chronic obstructive pulmonary disease, unspecified; Translations: [Chronic obstructive lung disease] Onset: 3 01-31-2023 Chronic Disorders of lipid metabolism (20 sources) Hyperlipidemia, unspecified; Translations: [Mixed hyperlipidemia] Onset: 3 01-31-2023 Chronic Esophageal disorders (20 sources) Gastroesophageal reflux disease; Translations: [Gastro-esophageal reflux disease without esophagitis] Onset: 3 01-31-2023 Chronic Essential hypertension (20 sources) Essential (primary) hypertension; Translations: [Essential hypertension] Onset: 3 01-31-2023 Chronic Fluid and electrolyte disorders (1 source) Hyponatremia; Translations: [Hypo-osmolality and hyponatremia] 06-06-2023 Episodic Genitourinary symptoms and ill-defined conditions (20 sources) Urinary incontinence; Translations: [Urinary incontinence, unspecified] Onset: 3 02-03-2023 Chronic Genitourinary symptoms and ill-defined conditions (3 sources) Lower urinary tract symptoms; Translations: [Unspecified symptoms and signs involving the genitourinary system] Onset: 3 02-03-2023 Episodic Maintenance chemotherapy; radiotherapy (1 source) Encounter for antineoplastic chemotherapy; Translations: [Encounter for antineoplastic chemotherapy] Onset: 3 Chronic Nonspecific chest pain (4 sources) Chest pain; Translations: [Chest pain, unspecified] 02-23-2024 Episodic Nutritional deficiencies (3 sources) Vitamin D deficiency; Translations: [Vitamin D deficiency, unspecified] Onset: 5 09-17-2024 Chronic Osteoarthritis (20 sources) Osteoarthritis of multiple joints ; Translations: [Polyosteoarthritis, unspecified] Onset: 3 01-31-2023 Chronic Other aftercare (1 source) intermediate (current) use of aspirin; Translations: [intermediate (current) use of aspirin] Onset: 3 Episodic Other aftercare (1 source) Other lobsterman (current) drug therapy; Translations: [Other lobsterman (current) drug therapy] Onset: 3 Episodic Other aftercare (1 source) Post-discharge follow-up; Translations: [Encounter for follow-up examination after completed treatment for conditions other than malignant neoplasm] 11-25-2022 Episodic Other aftercare (1 source) intermediate (current) use of other agents affecting estrogen receptors and estrogen levels; Translations: [Lng trm (crnt) use of agnt aff estrog recpt estrog levels] Onset: 3 Episodic Other aftercare (2 sources) Encounter for follow-up examination after completed treatment for conditions other than malignant neoplasm; Translations: [Encounter for follow-up examination after completed treatment for conditions other than malignant neoplasm] Onset: 3 Episodic Other bone disease and musculoskeletal deformities (1 source) Other specified disorders of bone density and structure, left thigh; Translations: [Oth disrd of bone density and structure, left thigh] Onset: 3 Episodic Other bone disease and musculoskeletal deformities (2 sources) Disorder of bone; Translations: [Other specified disorders of bone density and structure, multiple sites] 09-17-2024 Episodic Other circulatory disease (1 source) Ascending aorta abnormality; Translations: [Other specified disorders of arteries and arterioles] 09-29-2023 Chronic Other circulatory disease (2 sources) Other specified disorders of arteries and arterioles; Translations: [Other specified disorders of arteries and arterioles] Onset: 4 Chronic Other connective tissue disease (1 source) Presence of left artificial shoulder joint; Translations: [Presence of left artificial shoulder joint] Onset: 3 Chronic Other connective tissue disease (1 source) Bursitis of right hip; Translations: [Other bursitis of hip, right hip] 07-18-2023 Episodic Other connective tissue disease (1 source) Muscle pain; Translations: [Myalgia, unspecified site] 07-18-2023 Episodic Other connective tissue disease (3 sources) Trochanteric bursitis of left hip; Translations: [Trochanteric bursitis, left hip] 05-20-2024 Episodic Other connective tissue disease (1 source) Trochanteric bursitis, left hip; Translations: [Trochanteric bursitis of left hip] Onset: Episodic Other fractures (2 sources) Closed fracture of left acetabulum; Translations: [Other specified fracture of left acetabulum, subsequent encounter for fracture with delayed healing] 09-27-2024 Episodic Other fractures (1 source) Other specified fracture of left acetabulum, subsequent encounter for fracture with delayed healing; Translations: [Other closed fracture of left acetabulum with delayed healing, subsequent encounter] Onset: Episodic Other gastrointestinal disorders (1 source) Personal history of other diseases of the digestive system; Translations: [Personal history of other diseases of digestive system] 02-02-2023 Episodic Other gastrointestinal disorders (1 source) Defecation straining; Translations: [Other specified symptoms and signs involving the digestive system and abdomen] 01-31-2023 Episodic Other hematologic conditions (1 source) Hemoglobin low; Translations: [Precipitous drop in hematocrit] 11-25-2022 Episodic Other injuries and conditions due to external causes (1 source) At low risk for fall; Translations: [History of falling] 10-30-2023 Episodic Other lower respiratory disease (20 sources) Nodule of lung; Translations: [Solitary pulmonary nodule] Onset: 4 08-28-2023 Episodic Other lower respiratory disease (2 sources) Cough; Translations: [Acute cough] 03-01-2024 Episodic Other lower respiratory disease (2 sources) Multiple nodules of lung; Translations: [Other nonspecific abnormal finding of lung field] 09-24-2024 Episodic Other lower respiratory disease (1 source) Other nonspecific abnormal finding of lung field; Translations: [Lung nodules] Onset: 5 Episodic Other male genital disorders (20 sources) Male erectile dysfunction, unspecified; Translations: [Erectile dysfunction] Onset: 3 Chronic Other male genital disorders (2 sources) Erectile dysfunction co-occurrent and due to arterial insufficiency; Translations: [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 dysfunction] Onset: 3 02-03-2023 Chronic Other male genital disorders (1 source) 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 dysfunction; Translations: [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 dysfunction] Onset: 3 Chronic Other nervous system disorders (3 sources) Other chronic pain; Translations: [Other chronic pain] Onset: 4 Chronic Other non-traumatic joint disorders (20 sources) Hip pain; Translations: [Pain in joint, pelvic region and thigh] Onset: 4 03-17-2023 Episodic Other non-traumatic joint disorders (3 sources) Pain in right hip; Translations: [Pain in right hip] Onset: 3 Episodic Other non-traumatic joint disorders (4 sources) Pain in left hip; Translations: [Pain in left hip] Onset: 5 Episodic Other screening for suspected conditions (not mental disorders or infectious disease) (3 sources) Computed tomography result abnormal; Translations: [Abnormal findings on diagnostic imaging of other specified body structures] Onset: 4 09-04-2023 Chronic Residual codes; unclassified (1 source) Personal history of irradiation; Translations: [Personal history of irradiation] Onset: 3 Episodic Residual codes; unclassified (2 sources) Tobacco use and exposure - finding; Translations: [Tobacco use] 02-02-2023 Episodic Residual codes; unclassified (2 sources) Bilateral lower limb edema; Translations: [Localized edema] 06-06-2023 Episodic Residual codes; unclassified (1 source) Acquired absence of other genital organ(s); Translations: [S/P prostatectomy] Onset: 5 Episodic Secondary malignancies (2 sources) Secondary malignant neoplasm of intra-abdominal lymph nodes 07-07-2024 Chronic Secondary malignancies (7 sources) Secondary malignant neoplasm of bone 07-08-2024 Chronic Secondary malignancies (2 sources) Secondary and unspecified malignant neoplasm of intra-abdominal lymph nodes; Translations: [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)] Onset: 3 Chronic Secondary malignancies (2 sources) Secondary malignant neoplasm of bone; Translations: [Malignant neoplasm of prostate metastatic to bone (HCC)] Onset: 5 Chronic Secondary malignancies (1 source) Secondary and unspecified malignant neoplasm of intrapelvic lymph nodes; Translations: [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)] Onset: 4 Chronic Spondylosis; intervertebral disc disorders; other back problems (13 sources) Other spondylosis with radiculopathy, lumbar region; Translations: [Lumbar spondylosis] Onset: 3 05-21-2023 Chronic Spondylosis; intervertebral disc disorders; other back problems (20 sources) Lumbar radiculopathy; Translations: [Thoracic or lumbosacral neuritis or radiculitis, unspecified] Onset: 3 Episodic Substance-related disorders (20 sources) Tobacco smoking behavior - finding; Translations: [Tobacco use disorder] Onset: 3 11-20-2022 Chronic Unclassified (1 source) NO SHOW 02-18-2023 Unclassified (1 source) Low back pain, unspecified; Translations: [Low back pain, unspecified] Onset: 4 Unclassified (1 source) Aneurysm of the aortic arch, without rupture; Translations: [Aneurysm of the aortic arch, without rupture] Onset: 4 Unclassified (2 sources) Measurement finding 07-07-2024 Unclassified (1 source) OPENED IN ERROR 07-26-2024 Unclassified (1 source) Established Patient Onset: 5 Unclassified (1 source) Chronic bilateral low back pain, unspecified whether sciatica present; Translations: [Chronic bilateral low back pain, unspecified whether sciatica present] Onset: 4 Unclassified (1 source) Asthma-COPD overlap syndrome (HCC); Translations: [Asthma-COPD overlap syndrome (HCC)] Onset: 5 Unclassified (1 source) Acute cough; Translations: [Acute cough] Onset: 4 Past or Other Problems Problem Classification Problem Date Documented Da te Episodic/Chronic Administrative/social admission (20 sources) Patient encounter status; Translations: [Encounter for examination for insurance purposes] Onset: 3 Episodic Gastrointestinal hemorrhage (20 sources) Gastrointestinal hemorrhage; Translations: [Gastrointestinal hemorrhage, unspecified] Onset: 3 11-19-2022 Episodic Intestinal obstruction without hernia (20 sources) Small bowel obstruction; Translations: [Unspecified intestinal obstruction, unspecified as to partial versus complete obstruction] Onset: 3 11-19-2022 Episodic Mood disorders (2 sources) Mood disorders Onset: 4 11-04-2023 Nausea and vomiting (10 sources) Nausea and vomiting; Translations: [Nausea with vomiting] Onset: 3 09-30-2023 Episodic Other gastrointestinal disorders (18 sources) Heartburn; Translations: [Heartburn] Onset: 4 11-06-2023 Episodic Other gastrointestinal disorders (2 sources) Heartburn; Translations: [Heartburn] Onset: 4 Episodic Other injuries and conditions due to external causes (2 sources) History of falling; Translations: [History of falling] Onset: 4 Episodic Other lower respiratory disease (20 sources) Hemoptysis; Translations: [Hemoptysis] Onset: 4 09-15-2023 Episodic Other lower respiratory disease (8 sources) Solitary pulmonary nodule; Translations: [Solitary pulmonary nodule] Onset: 4 Episodic Other lower respiratory disease (3 sources) Hemoptysis; Translations: [Hemoptysis] Onset: 4 Episodic Other screening for suspected conditions (not mental disorders or infectious disease) (6 sources) Measurement finding; Translations: [Elevated prostate specific antigen [PSA]] Onset: 5 03-18-2024 Episodic Screening and history of mental health and substance abuse codes (2 sources) Personal history of nicotine dependence; Translations: [Personal history of nicotine dependence] Onset: 4 Episodic Unclassified (1 source) Low back pain, unspecified; Translations: [Low back pain, unspecified] Onset: 4 Unclassified (1 source) Aneurysm of the aortic arch, without rupture; Translations: [Aneurysm of the aortic arch, without rupture] Onset: 4 Unclassified (2 sources) Onset: 4 10-30-2023 Unclassified (2 sources) Closed fracture of left acetabulum 09-27-2024 Results Test Name Value Interpretation Reference Range Facility Basic metabolic 2000 panelon 11-02-2024 Anion gap [Moles/Vol] 14 mmol/L Normal 8-15 [facility] Comment on above: Order Comment: Speci men Type: BLOOD SPECIMEN Ordering Facility: [facility] Address: [address] [place] [address] Performed By: #### 2 4321-2 #### [facility] CLIA [id number] [address] [place] [address] [place] Calcium [Mass/Vol] 9.5 mg/dL Normal 8.5-10.2 [facility] Comment on above: Order Comment: Speci men Type: BLOOD SPECIMEN Ordering Facility: [facility] Address: [address] [place] [address] Performed By: #### 2 4321-2 #### [facility] CLIA [id number] [address] [place] [address] [place] Chloride [Moles/Vol] 102 mmol/L Normal 98-107 [facility] Comment on above: Order Comment: Speci men Type: BLOOD SPECIMEN Ordering Facility: [facility] Address: [address] [place] [address] Performed By: #### 2 4321-2 #### [facility] CLIA [id number] [address] [place] [address] [place] CO2 [Moles/Vol] 21 mmol/L Low 22-30 [facility] Comment on above: Order Comment: Speci men Type: BLOOD SPECIMEN Ordering Facility: [facility] Address: [address] [place] [address] Performed By: #### 2 4321-2 #### [facility] CLIA [id number] [address] [place] [address] [place] Creatinine [Mass/Vol] 0.84 mg/dL Normal 0.73-1.22 [facility] Comment on above: Order Comment: Dion hawk Type: BLOOD SPECIMEN Ordering Facility: [facility] Address: [address] [place] [address] Performed By: #### 2 4321-2 #### [facility] CLIA [id number] [address] [place] [address] [place] eGFRcr SerPlBld CKD-EPI 2020 94 mL/min/1.73m??? Normal >=60 [facility] Comment on above: Order Comment: Dion hawk Type: BLOOD SPECIMEN Ordering Facility: [facility] Address: [address] [place] [address] Result Comment: Rizwana mated Glomerular Filtration Rate (eGFR) is calculated using the 2020 CKD-EPI creatinine equation. This equation utilizes serum creatinine, sex, and age as parameters. The creatinine assay has traceable calibration to isotope dilution-mass spectrometry. Refer to KDIGO guidelines for clinical interpretation. In patients with unstable renal function, e.g. those with acute kidney injury, the eGFR may not accurately reflect actual GFR. Performed By: #### 2 4321-2 #### [facility] CLIA [id number] [address] [place] [address] [place] Glucose [Mass/Vol] 88 mg/dL Normal 74-99 [facility] Comment on above: Order Comment: Dion hawk Type: BLOOD SPECIMEN Ordering Facility: [facility] Address: [address] [place] [address] Result Comment: The [place] Diabetes [employer] (ADA) provides guidance for cutoff values for fasting glucose and random glucose. The ADA defines fasting as no caloric intake for at least 8 hours. Fasting plasma glucose results between 100 to 125 mg/dL indicate increased risk for diabetes (prediabetes). Fasting plasma glucose results greater than or equal to 126 mg/dL meet the criteria for diagnosis of diabetes. In the absence of unequivocal hyperglycemia, results should be confirmed by repeat testing. In a patient with classic symptoms of hyperglycemia or hyperglycemic crisis, random plasma glucose results greater than or equal to 200 mg/dL meet the criteria for diagnosis of diabetes. Reference: Standards of Medical Care in Diabetes 2016, [place] Diabetes Association. Diabetes Care. 2016.39(Suppl 1). Performed By: #### 2 4321-2 #### [facility] [id number] [address] [place] [address] [place] Potassium [Moles/Vol] 3.9 mmol/L Normal 3.7-5.1 [facility] Comment on above: Order Comment: Dion hawk Type: BLOOD SPECIMEN Ordering Facility: [facility] Address: [address] [place] [address] Performed By: #### 2 4321-2 #### [facility] [id number] [address] [place] [address] [place] Sodium [Moles/Vol] 137 mmol/L Normal 136-144 [facility] Comment on above: Order Comment: Dion hawk Type: BLOOD SPECIMEN Ordering Facility: [facility] Address: [address] [place] [address] Performed By: #### 2 4321-2 #### [facility] [id number] [address] [place] [address] [place] Urea nitrogen [Mass/Vol] 12 mg/dL Normal 9-24 [facility] Comment on above: Order Comment: Dion hawk Type: BLOOD SPECIMEN Ordering Facility: [facility] Address: [address] [place] [address] Performed By: #### 2 4321-2 #### [facility] [id number] [address] [place] [address] [place] CNOVSPon 10-25-2024 CNOVSP Visit (SP) Office ( [facility]) -- LUIS ANGEL [id number]) 1955 M Date Time Provider Department 10/25/24 8:30 AM MONICA JUNG During your visit today, we recorded the following information about you: Temperature Pulse Blood pressure Weight 96.8 degrees 64/minute 116/71 77.8 kg Height 1.76 m Monica Jung, DO 10/25/2024 8:47 AM Signed Oncologic problem(s): 1) Castrate sensitive prostate cancer. HPI: The patient is a 69-year-old male with past medical history significant for hyperlipidemia, hypertension, moderate COPD, GERD, previous cervical spine surgery, chronic low back pain and prostate cancer. Developed gross hematuria. PSA 50s. RP with penile implant. Bladder tear about a month later. PET--recurrence in prostate bed. 06/2021 4 weeks RT in [place] with GnRH agonist treatment (Lupron). Stopped due to side effects--Severe diarrhea and n/v. PSA undetectable 06/2022. Presumably from Lupron. CT A/P 11/18/2022: IMPRESSION: 1. Postoperative ileus versus changes of early small bowel obstruction within the right pelvis as discussed above. Short-term follow-up suggested. 2. Changes of recent prostatectomy and penile implant. There is a 6.0 x 2.7 x 9.5 cm nonencapsulated postoperative fluid collection within the right lower quadrant subcutaneous fat adjacent to the penile pump. 3. Mild free fluid. 4. Sacral insufficiency fractures. Medically managed for SBO. Saw Dr. Ariza at 11/10/2023: -Assessment/Plan I personally saw patient and counselled all visit on his diagnosis, kamilla history and coordination of his care. This is a 68 y.o. male man known with LN+ PC on ADT (d/c zytiga/pred and apa s/t AEs) with T > 50 and low PSA and negative recent PSMA (June 2022). He had incomplete salvage XRT but aborted s/t bowel tox. He is discontinuing ADT per pt preference - understands R/A of this decision. He was found with some lung abn, but PET was negative and bronch results pending. He is smoker. Will call him in few weeks to Fup on bronch results We discussed the clinical significance of diagnosis, goals of care and treatment plan in detail. Thank you for the opportunity to be involved in the care of Luis Angel Aguila. Please do not hesitate to reach out with any questions. Thank you. Path was negative. Per recent note from [facility] -Follow up sp EGD with biopsies 11/26/2023. 1 cm circumferential salmon colored mucosa seen at the GE junction at the time of EGD, consistent with short segment Oliver's esophagus. 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 We discussed the etiology of Oliver's and need for continued endoscopic surveillance due to risk of malignancy. Recommend patient continue on his PPI/H2 nabil, repeat EGD in 5 years for surveillance. OV 07/05/2024: Had a PSMA PET scan done at . 04/2024 Impression: 1. Status post prostatectomy without focally increased Ga68 PSMA expression within the prostate gland to suggest local recurrence. 2. Mild PSMA-avid sub-centimeter aortocaval lymph node, nereida metastasis cannot be excluded. Production Weigher images sent to PACS for review. 3. Mild PSMA expression within the lung nodule along right heart border which was not FDG avid on PET dated 10/01/2023, non-specific. Continued attention on follow-up imaging is recommended. 4. Mild Ga68 PSMA-avid within right iliac bone lesion, although not typical for prosthetic bone metastasis, continued attention on follow-up imaging is recommended. I'm not doing anymore of those shots. Hot flashes resolved. No symptoms of LUTS. LBP significantly improved after epidural injection. 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 OV 07/12/2024: Had repeat PET scan. Has occasional hip pain previously relieved with cortisone injections. Still working 12 to 14 hours a day. No pain getting in and out of the truck. Current therapy: 1) Radiation. Completed 07/29/2024. 2) Eligard. 3) Xtandi. Began 08/2024. Presents for ongoing oncologic management. 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 Established with palliative care--Previously Lyrica increased to TID. Tolerating Xtandi well. Side effects from Eligard are tolerable. PAST MEDICAL HISTORY Diagnosis Date Abdominal aortic aneurysm seen on CT of chest for lung cancer screening COPD (chronic obstructive pulmonary disease) (HCC) Essential hypertension GERD (gastroesophageal reflux disease) Malignant neoplasm of prostate metastatic to bone (HCC) 07/13/2024 Mixed hyperlipidemia Nodule of right lung Osteoarthritis of multiple joints 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) S/P prostatectomy Tobacco use disorder PAST SURGICAL HISTORY Procedure Laterality Date APPENDECTOMY COLONOSCOPY 12/12/2022 repeat 5 years (more content not included)... Normal [facility] CBC W Auto Differential pane l (Bld)on 10-19-2024 Basophils (Bld) [#/Vol] 0.05 10*3/uL Normal <0.11 [facility] Comment on above: Order Comment: Speci men Type: BLOOD SPECIMEN Ordering Facility: [facility] Address: [address] [place] [address] Performed By: #### 2 4323-8 #### [facility] CLIA [id number] [address] [place] [address] [place] Basophils/100 WBC (Bld) 0.7 % Normal [facility] Comment on above: Order Comment: Speci men Type: BLOOD SPECIMEN Ordering Facility: [facility] Address: [address] [place] [address] Performed By: #### 2 4323-8 #### [facility] CLIA [id number] [address] [place] [address] [place] Differential cell count method Nom (Bld) Auto Normal [facility] Comment on above: Order Comment: Speci men Type: BLOOD SPECIMEN Ordering Facility: [facility] Address: [address] [place] [address] Performed By: #### 2 4323-8 #### [facility] CLIA [id number] [address] [place] [address] [place] Eosinophils (Bld) [#/Vol] 0.28 10*3/uL Normal <0.46 [facility] Comment on above: Order Comment: Speci men Type: BLOOD SPECIMEN Ordering Facility: [facility] Address: [address] [place] [address] Performed By: #### 2 4323-8 #### [facility] CLIA [id number] [address] [place] [address] [place] Eosinophils/100 WBC (Bld) 3.7 % Normal [facility] Comment on above: Order Comment: Speci men Type: BLOOD SPECIMEN Ordering Facility: [facility] Address: [address] [place] [address] Performed By: #### 2 4323-8 #### [facility] CLIA [id number] [address] [place] [address] [place] Erythrocyte distribution width (RBC) [Ratio] 12.7 % Normal 11.5-15.0 [facility] Comment on above: Order Comment: Speci men Type: BLOOD SPECIMEN Ordering Facility: [facility] Address: [address] [place] [address] Performed By: #### 2 4323-8 #### [facility] CLIA [id number] [address] [place] [address] [place] Hematocrit (Bld) [Volume fraction] 42.2 % Normal 39.0-51.0 [facility] Comment on above: Order Comment: Speci men Type: BLOOD SPECIMEN Ordering Facility: [facility] Address: [address] [place] [address] Performed By: #### 2 4323-8 #### [facility] [id number] [address] [place] [address] [place] Hemoglobin (Bld) [Mass/Vol] 14.2 g/dL Normal 13.0-17.0 [facility] Comment on above: Order Comment: Speci men Type: BLOOD SPECIMEN Ordering Facility: [facility] Address: [address] [place] [address] Performed By: #### 2 4323-8 #### [facility] CLIA [id number] [address] [place] [address] [place] Immature granulocytes (Bld) [#/Vol] 0.08 10*3/uL Normal <0.10 [facility] Comment on above: Order Comment: Speci men Type: BLOOD SPECIMEN Ordering Facility: [facility] Address: [address] [place] [address] Performed By: #### 2 4323-8 #### [facility] CLIA [id number] [address] [place] [address] [place] Immature granulocytes/100 WBC (Bld) 1.1 % Normal [facility] Comment on above: Order Comment: Speci men Type: BLOOD SPECIMEN Ordering Facility: [facility] Address: [address] [place] [address] Performed By: #### 2 4323-8 #### [facility] CLIA [id number] [address] [place] [address] [place] Lymphocytes (Bld) [#/Vol] 1.08 10*3/uL Normal 1.00-4.00 [facility] Comment on above: Order Comment: Speci men Type: BLOOD SPECIMEN Ordering Facility: [facility] Address: [address] [place] [address] Performed By: #### 2 4323-8 #### [facility] CLIA [id number] [address] [place] [address] [place] Lymphocytes/100 WBC (Bld) 14.2 % Normal [facility] Comment on above: Order Comment: Speci men Type: BLOOD SPECIMEN Ordering Facility: [facility] Address: [address] [place] [address] Performed By: #### 2 4323-8 #### [facility] CLIA [id number] [address] [place] [address] [place] MCH (RBC) [Entitic mass] 32.2 pg Normal 26.0-34.0 [facility] Comment on above: Order Comment: Speci men Type: BLOOD SPECIMEN Ordering Facility: [facility] Address: [address] [place] [address] Performed By: #### 2 4323-8 #### [facility] CLIA [id number] [address] [place] [address] [place] MCHC (RBC) [Mass/Vol] 33.6 g/dL Normal 30.5-36.0 [facility] Comment on above: Order Comment: Speci men Type: BLOOD SPECIMEN Ordering Facility: [facility] Address: [address] [place] [address] Performed By: #### 2 4323-8 #### [facility] CLIA [id number] [address] [place] [address] [place] MCV (RBC) [Entitic vol] 95.7 fL Normal 80.0-100.0 [facility] Comment on above: Order Comment: Speci men Type: BLOOD SPECIMEN Ordering Facility: [facility] Address: [address] [place] [address] Performed By: #### 2 4323-8 #### [facility] CLIA [id number] [address] [place] [address] [place] Monocytes (Bld) [#/Vol] 0.85 10*3/uL Normal <0.87 [facility] Comment on above: Order Comment: Speci men Type: BLOOD SPECIMEN Ordering Facility: [facility] Address: [address] [place] [address] Performed By: #### 2 4323-8 #### [facility] CLIA [id number] [address] [place] [address] [place] [address] [place] Monocytes/100 WBC (Bld) 11.2 % Normal [facility] Comment on above: Order Comment: Speci men Type: BLOOD SPECIMEN Ordering Facility: [facility] Address: [address] [place] [address] Performed By: #### 2 4323-8 #### [facility] CLIA [id number] [address] [place] [address] [place] Neutrophils (Bld) [#/Vol] 5.25 10*3/uL Normal 1.45-7.50 [facility] Comment on above: Order Comment: Speci men Type: BLOOD SPECIMEN Ordering Facility: [facility] Address: [address] [place] [address] Performed By: #### 2 4323-8 #### [facility] CLIA [id number] [address] [place] [address] [place] Neutrophils/100 WBC (Bld) 69.1 % Normal [facility] Comment on above: Order Comment: Speci men Type: BLOOD SPECIMEN Ordering Facility: [facility] Address: [address] [place] [address] Performed By: #### 2 4323-8 #### [facility] CLIA [id number] [address] [place] [address] [place] Nucleated RBC (Bld) [#/Vol] 10*3/uL Normal <0.01 [facility] Comment on above: Order Comment: Speci men Type: BLOOD SPECIMEN Ordering Facility: [facility] Address: [address] [place] [address] Performed By: #### 2 4323-8 #### [facility] CLIA [id number] [address] [place] [address] [place] Nucleated RBC/100 WBC (Bld) [Ratio] 0.0 /100 WBC Normal [facility] Comment on above: Order Comment: Speci men Type: BLOOD SPECIMEN Ordering Facility: [facility] Address: [address] [place] [address] Performed By: #### 2 4323-8 #### [facility] CLIA [id number] [address] [place] [address] [place] Platelet mean volume (Bld) [Entitic vol] 9.2 fL Normal 9.0-12.7 [facility] Comment on above: Order Comment: Speci men Type: BLOOD SPECIMEN Ordering Facility: [facility] Address: [address] [place], [place] [address] Performed By: #### 2 4323-8 #### [facility] CLIA [id number] [address] [place] [address] [place] Platelets (Bld) [#/Vol] 299 10*3/uL Normal 150-400 [facility] Comment on above: Order Comment: Speci men Type: BLOOD SPECIMEN Ordering Facility: [facility] Address: [address] [place], [place] [address] Performed By: #### 2 4323-8 #### [facility] CLIA [id number] [address] [place] [address] [place] RBC (Bld) [#/Vol] 4.41 10*6/uL Normal 4.20-6.00 [facility] Comment on above: Order Comment: Speci men Type: BLOOD SPECIMEN Ordering Facility: [facility] Address: [address] [place], [place] [address] Performed By: #### 2 4323-8 #### [facility] CLIA [id number] [address] [place] [address] [place] WBC (Bld) [#/Vol] 7.59 10*3/uL Normal 3.70-11.00 [facility] Comment on above: Order Comment: Speci men Type: BLOOD SPECIMEN Ordering Facility: [facility] Address: [address] [place] [address] Performed By: #### 2 4323-8 #### [facility] CLIA [id number] [address] [place] [address] [place] Comprehensive metabolic 2000 panelon 10-19-2024 Albumin [Mass/Vol] 3.9 g/dL Normal 3.9-4.9 [facility] Comment on above: Order Comment: Speci men Type: BLOOD SPECIMEN Ordering Facility: [facility] Address: [address] [place] [address] Performed By: #### 2 4323-8 #### [facility] CLIA [id number] [address] [place] [address] [place] ALP [Catalytic activity/Vol] 84 U/L Normal 38-113 [facility] Comment on above: Order Comment: Speci men Type: BLOOD SPECIMEN Ordering Facility: [facility] Address: [address] [place] [address] Performed By: #### 2 4323-8 #### [facility] CLIA [id number] [address] [place] [address] [place] ALT [Catalytic activity/Vol] 7 U/L Low 10-54 [facility] Comment on above: Order Comment: Speci men Type: BLOOD SPECIMEN Ordering Facility: [facility] Address: [address] [place] [address] Performed By: #### 2 4323-8 #### [facility] CLIA [id number] [address] [place] [address] [place] Anion gap [Moles/Vol] 12 mmol/L Normal 8-15 [facility] Comment on above: Order Comment: Speci men Type: BLOOD SPECIMEN Ordering Facility: [facility] Address: [address] [place] [address] Performed By: #### 2 4323-8 #### [facility] CLIA [id number] [address] [place] [address] [place] AST [Catalytic activity/Vol] 19 U/L Normal 14-40 [facility] Comment on above: Order Comment: Speci men Type: BLOOD SPECIMEN Ordering Facility: [facility] Address: [facility] [place] [address] Performed By: #### 2 4323-8 #### [facility] CLIA [id number] [address] [place] [address] [place] Bilirubin [Mass/Vol] 0.3 mg/dL Normal 0.2-1.3 [facility] Comment on above: Order Comment: Speci men Type: BLOOD SPECIMEN Ordering Facility: [facility] Address: [address] [place] [address] Performed By: #### 2 4323-8 #### [facility] CLIA [id number] [address] [place] [address] [place] Calcium [Mass/Vol] 9.8 mg/dL Normal 8.5-10.2 [facility] Comment on above: Order Comment: Speci men Type: BLOOD SPECIMEN Ordering Facility: [facility] Address: [address] [place] [address] Performed By: #### 2 4323-8 #### [facility] CLIA [id number] [address] [place] [address] [place] Chloride [Moles/Vol] 103 mmol/L Normal 98-107 [facility] Comment on above: Order Comment: Speci men Type: BLOOD SPECIMEN Ordering Facility: [facility] Address: [address] [place] [address] Performed By: #### 2 4323-8 #### [facility] CLIA [id number] [address] [place] [address] [place] CO2 [Moles/Vol] 20 mmol/L Low 22-30 [facility] Comment on above: Order Comment: Speci men Type: BLOOD SPECIMEN Ordering Facility: [facility] Address: [address] [place] [address] Performed By: #### 2 4323-8 #### [facility] CLIA [id number] [address] [place] [address] [place] Creatinine [Mass/Vol] 0.97 mg/dL Normal 0.73-1.22 [facility] Comment on above: Order Comment: Speci men Type: BLOOD SPECIMEN Ordering Facility: [facility] Address: [address] [place] [address] Performed By: #### 2 4323-8 #### [facility] [id number] [address] [place] [address] [place] eGFRcr SerPlBld CKD-EPI 2020 84 mL/min/1.73m??? Normal >=60 [facility] Comment on above: Order Comment: Dion hakw Type: BLOOD SPECIMEN Ordering Facility: [facility] Address: [address] [place] [address] Result Comment: Rizwana mated Glomerular Filtration Rate (eGFR) is calculated using the 2020 CKD-EPI creatinine equation. This equation utilizes serum creatinine, sex, and age as parameters. The creatinine assay has traceable calibration to isotope dilution-mass spectrometry. Refer to KDIGO guidelines for clinical interpretation. In patients with unstable renal function, e.g. those with acute kidney injury, the eGFR may not accurately reflect actual GFR. Performed By: #### 2 4323-8 #### [facility] [id number] [address] [place] [address] [place] Glucose [Mass/Vol] 96 mg/dL Normal 74-99 [facility] Comment on above: Order Comment: Dion hawk Type: BLOOD SPECIMEN Ordering Facility: [facility] Address: [address] [place] [address] Result Comment: The [place] Diabetes Association (ADA) provides guidance for cutoff values for fasting glucose and random glucose. The ADA defines fasting as no caloric intake for at least 8 hours. Fasting plasma glucose results between 100 to 125 mg/dL indicate increased risk for diabetes (prediabetes). Fasting plasma glucose results greater than or equal to 126 mg/dL meet the criteria for diagnosis of diabetes. In the absence of unequivocal hyperglycemia, results should be confirmed by repeat testing. In a patient with classic symptoms of hyperglycemia or hyperglycemic crisis, random plasma glucose results greater than or equal to 200 mg/dL meet the criteria for diagnosis of diabetes. Reference: Standards of Medical Care in Diabetes 2016, [place] Diabetes Association. Diabetes Care. 2016.39(Suppl 1). Performed By: #### 2 4323-8 #### [facility] [id number] [address] [place] [address] [place] Potassium [Moles/Vol] 4.1 mmol/L Normal 3.7-5.1 [facility] Comment on above: Order Comment: Speci men Type: BLOOD SPECIMEN Ordering Facility: [facility] Address: [address] [place] [address] Performed By: #### 2 4323-8 #### [facility] CLIA [id number] [address] [place] [address] [place] Protein [Mass/Vol] 7.6 g/dL Normal 6.3-8.0 [facility] Comment on above: Order Comment: Speci men Type: BLOOD SPECIMEN Ordering Facility: [facility] Address: [address] [place] [address] Performed By: #### 2 4323-8 #### [facility] CLIA [id number] [address] [place] [address] [place] Sodium [Moles/Vol] 135 mmol/L Low 136-144 [facility] Comment on above: Order Comment: Speci men Type: BLOOD SPECIMEN Ordering Facility: [facility] Address: [address] [place] [address] Performed By: #### 2 4323-8 #### [facility] CLIA [id number] [address] [place] [address] [place] Urea nitrogen [Mass/Vol] 17 mg/dL Normal 9-24 [facility] Comment on above: Order Comment: Speci men Type: BLOOD SPECIMEN Ordering Facility: [facility] Address: [address] [place] [address] Performed By: #### 2 4323-8 #### [facility] CLIA [id number] [address] [place] [address] [place] PSA [facility] Prostate specific Ag [Mass/Vol] 0.02 ng/mL Normal <2.60 [facility] Comment on above: Order Comment: Speci men Type: BLOOD SPECIMEN Ordering Facility: [facility] Address: [address] [place] [address] Result Comment: Tota l PSA test methodology used is the Electrochemiluminescence Immunoassay by [employer]. Total PSA values by differing methodologies cannot be interchanged. Performed By: #### 2 857-1 #### [facility] CLIA [id number] [address] [place] [address] [place] Testost SerPl-mCncon 025 Testosterone [Mass/Vol] ng/dL Low 193-824 [facility] Comment on above: Order Comment: Speci men Type: BLOOD SPECIMEN Ordering Facility: [facility] Address: [address] [place] [address] Result Comment: A te stosterone level in the 193-320 ng/dL range with associated clinical symptoms is considered low and may indicate hypogonadism (from [facility] 2010 363:123-135). Results >320 ng/dL are considered normal. Result rechecked. Performed By: #### 2 986-8 #### [facility] CLIA [id number] [address] [place] [address] [place] Basic metabolic 2000 panelon 10-05-2024 Anion gap [Moles/Vol] 12 mmol/L Normal 8-15 [facility] Comment on above: Order Comment: Speci men Type: BLOOD SPECIMEN Ordering Facility: [facility] Address: [address] [place] [address] Performed By: #### 2 4321-2 #### [facility] CLIA [id number] [address] [place] [address] [place] Calcium [Mass/Vol] 9.9 mg/dL Normal 8.5-10.2 [facility] Comment on above: Order Comment: Speci men Type: BLOOD SPECIMEN Ordering Facility: [facility] Address: [address] [place] [address] Performed By: #### 2 4321-2 #### [facility] CLIA [id number] [address] [place] [address] [place] Chloride [Moles/Vol] 98 mmol/L Normal 98-107 [facility] Comment on above: Order Comment: Speci carine Type: BLOOD SPECIMEN Ordering Facility: [facility] Address: [address] [place] [address] Performed By: #### 2 4321-2 #### [facility] CLIA [id number] [address] [place] [address] [place] CO2 [Moles/Vol] 19 mmol/L Low 22-30 [facility] Comment on above: Order Comment: Speci men Type: BLOOD SPECIMEN Ordering Facility: [facility] Address: [address] [place] [address] Performed By: #### 2 4321-2 #### [facility] [id number] [address] [place] [address] [place] Creatinine [Mass/Vol] 0.83 mg/dL Normal 0.73-1.22 [facility] Comment on above: Order Comment: Speci men Type: BLOOD SPECIMEN Ordering Facility: [facility] Address: [address] [place] [address] Performed By: #### 2 4321-2 #### [facility] [id number] [address] [place] [address] [place] Creatinine and Glomerular filtration rate.predicted panel (S/P/Bld) 94 mL/min/1.73m??? Normal >=60 [facility] Comment on above: Order Comment: Speci men Type: BLOOD SPECIMEN Ordering Facility: [facility] Address: [address] [place] [address] Result Comment: Rizwana mated Glomerular Filtration Rate (eGFR) is calculated using the 2020 CKD-EPI creatinine equation. This equation utilizes serum creatinine, sex, and age as parameters. The creatinine assay has traceable calibration to isotope dilution-mass spectrometry. Refer to KDIGO guidelines for clinical interpretation. In patients with unstable renal function, e.g. those with acute kidney injury, the eGFR may not accurately reflect actual GFR. Performed By: #### 2 4321-2 #### [facility] [id number] [address] [place] [address] [place] Glucose [Mass/Vol] 107 mg/dL High 74-99 [facility] Comment on above: Order Comment: Dion hawk Type: BLOOD SPECIMEN Ordering Facility: [facility] Address: [address] [place] [address] Result Comment: The [place] Diabetes Association (ADA) provides guidance for cutoff values for fasting glucose and random glucose. The ADA defines fasting as no caloric intake for at least 8 hours. Fasting plasma glucose results between 100 to 125 mg/dL indicate increased risk for diabetes (prediabetes). Fasting plasma glucose results greater than or equal to 126 mg/dL meet the criteria for diagnosis of diabetes. In the absence of unequivocal hyperglycemia, results should be confirmed by repeat testing. In a patient with classic symptoms of hyperglycemia or hyperglycemic crisis, random plasma glucose results greater than or equal to 200 mg/dL meet the criteria for diagnosis of diabetes. Reference: Standards of Medical Care in Diabetes 2016, [place] Diabetes Association. Diabetes Care. 2016.39(Suppl 1). Performed By: #### 2 4321-2 #### [facility] [id number] [address] [place] [address] [place] Potassium [Moles/Vol] 4.6 mmol/L Normal 3.7-5.1 [facility] Comment on above: Order Comment: Dion hawk Type: BLOOD SPECIMEN Ordering Facility: [facility] Address: [address] [place] [address] Performed By: #### 2 4321-2 #### [facility] [id number] [address] [place] [address] [place] Sodium [Moles/Vol] 129 mmol/L Low 136-144 [facility] Comment on above: Order Comment: Dion hawk Type: BLOOD SPECIMEN Ordering Facility: [facility] Address: [address] [place], [place] [id number] Performed By: #### 2 4321-2 #### [facility] CLIA [id number] [address] [place] [id number] [place] Urea nitrogen [Mass/Vol] 16 mg/dL Normal 9-24 [facility] Comment on above: Order Comment: Speci men Type: BLOOD SPECIMEN Ordering Facility: [facility] Address: [facility] [place] [id number] Performed By: #### 2 4321-2 #### [facility] CLIA [id number] [address] [place], [place] [id number] [place] [address] [place] CNPNon 09-27-2024 JAMESN Telephone (HEMAWS) -- LUIS ANGEL AGUILA ([id number]) 1955 M Date Time Provider Department 09/27/24 MONICA JUNG During your visit today, we recorded the following information about you: Monica Jung DO 09/27/2024 5:13 PM Signed Can let his Kat know that the x-ray showed that the insufficiency fractures are healing. There is no other evidence of other fracture. DO Elvis Wesley Melanie, LPN 09/28/2024 8:49 AM Signed Patient's notified. Tg Womack LPN Allergies As of Date: 09/27/2024 Noted Allergy Reaction MORPHINE 10/25/2022 2 - Rash 9 - Itching PREDNISONE 10/25/2022 1 - Mental Status Change Date Reviewed: 09/24/2024 Reviewed by: Aimee العلي MD - Fully Assessed Reason for Visit: Results [95] Prescriptions as of 09/28/2024 - dexAMETHasone (DECADRON) 1 mg tablet Take 1 mg by mouth daily with breakfast. - ncvbzuycdrw-lrcbzehdk-ffuo nter (TRELEGY ELLIPTA) 200-62.5-25 mcg inhalation powder Inhale 1 puff as instructed once daily. - amLODIPine (NORVASC) 5 mg tablet Take 1 tablet by mouth once daily. - tiotropium-olodaterol (STIOLTO RESPIMAT) 2.5-2.5 mcg/actuation inhaler Inhale 2 puffs as instructed once daily. - omeprazole (PRILOSEC) 40 mg capsule Take 1 capsule by mouth two times a day. - lisinopril (ZESTRIL) 40 mg tablet Take 1 tablet by mouth once daily. - famotidine (PEPCID) 40 mg tablet Take 1 tablet by mouth once daily. - senna (SENOKOT) 8.6 mg tab Take 1 tablet by mouth two times a day. - atorvastatin (LIPITOR) 40 mg tablet Take 1 tablet by mouth daily at bedtime. For cholesterol. - atenolol (TENORMIN) 50 mg tablet Take one tablet daily along with 25 mg tablet to equal 75 mg daily - atenolol (TENORMIN) 25 mg tablet Take one tablet daily along with the 50 mg tablet to equal 75 mg daily - albuterol HFA (VENTOLIN HFA) 90 mcg/actuation inhaler Inhale 2 puffs as instructed every 4 hours as needed for wheezing/shortness of breath. - pregabalin (LYRICA) 150 mg capsule Take 1 capsule by mouth three times a day for 120 days. - enzalutamide (XTANDI) 80 mg tablet Take 2 tablets (160 mg) by mouth once daily. - cyclobenzaprine (FLEXERIL) 10 mg tablet Take 1 tablet by mouth as directed. 1/2 to 1 tablet po qhs as needed for spasm - acetaminophen (TYLENOL EXTRA STRENGTH) 500 mg tablet Take 1,000 mg by mouth every 8 hours as needed. - aspirin, enteric coated (ASPIRIN, ENTERIC COATED) 81 mg EC tablet Take 81 mg by mouth once daily. - cholecalciferol (VITAMIN D-3) 50 mcg (2,000 unit) tablet Take 2,000 Units by mouth once daily. - beta-carotene,A,-vits C,E/mins (OCUVITE ORAL) Take 1 tablet by mouth once daily. - calcium carbonate (CALCIUM 600 ORAL) Take 1 tablet by mouth once daily. - Multivitamin capsule Take 1 capsule by mouth once daily. Problem List As Of Date 09/27/2024 Noted Resolved Small bowel obstruction (HCC) [K56.609] 11/19/2022 GI bleed [K92.2] 11/19/2022 Nicotine use disorder, F17.2 [F17.200] 11/20/2022 Ileus (HCC) [K56.7] 11/20/2022 Screening for colon cancer [Z12.11] 12/12/2022 Prostate cancer metastatic to intraabdominal ly*01/31/2023 Osteoarthritis of multiple joints [M15.9] 01/31/2023 Mixed hyperlipidemia [E78.2] 01/31/2023 GERD (gastroesophageal reflux disease) [K21.9] 01/31/2023 Essential hypertension [I10] 01/31/2023 COPD (chronic obstructive pulmonary disease) (H*01/31/2023 Malignant neoplasm of prostate metastatic to rekha*07/13/2024 Encounter Status:Closed by TG WOMACK on 09/28/24 [facility] Telephone (HEMMOMO) -- AYLALUIS ANGEL ([id number]) 1955 M Date Time Provider Department 09/27/24 MONICA JUNG During your visit today, we recorded the following information about you: Tg Womack LPN 09/27/2024 4:57 PM Signed Dental clearance form received form Dr. Interiano. Patient is cleared for Zometa/Reclast/Xgeva. Form sent to scanning. JUAN MANUEL Vargas Paul A, DO 09/27/2024 5:00 PM Signed Thank you. Start BMP/Zometa as soon as possible. Orders filed. Tg Womack LPN 09/28/2024 8:51 AM Signed Patient's is aware and is awaiting the call to schedule: Start BMP/Zometa as soon as possible. Orders filed. JUAN MANUEL VargasNela lucero 09/28/2024 9:41 AM Signed Spoke with patients spouse and scheduled Nela Zamora Allergies As of Date: 09/27/2024 Noted Allergy Reaction MORPHINE 10/25/2022 2 - Rash 9 - Itching PREDNISONE 10/25/2022 1 - Mental Status Change Date Reviewed: 09/24/2024 Reviewed by: Aimee العلي MD - Fully Assessed Reason for Visit: Dental Clearance - Chemotherapy [1356] Prescriptions as of 09/28/2024 - dexAMETHasone (DECADRON) 1 mg tablet Take 1 mg by mouth daily with breakfast. - rmmmkuewzfy-yxgnkirfv-kvpr nter (TRELEGY ELLIPTA) 200-62.5-25 mcg inhalation powder Inhale 1 puff as instructed once daily. - amLODIPine (NORVASC) 5 mg tablet Take 1 tablet by mouth once daily. - tiotropium-olodaterol (STIOLTO RESPIMAT) 2.5-2.5 mcg/actuation inhaler Inhale 2 puffs as instructed once daily. - omeprazole (PRILOSEC) 40 mg capsule Take 1 capsule by mouth two times a day. - lisinopril (ZESTRIL) 40 mg tablet Take 1 tablet by mouth once daily. - famotidine (PEPCID) 40 mg tablet Take 1 tablet by mouth once daily. - senna (SENOKOT) 8.6 mg tab Take 1 tablet by mouth two times a day. - atorvastatin (LIPITOR) 40 mg tablet Take 1 tablet by mouth daily at bedtime. For cholesterol. - atenolol (TENORMIN) 50 mg tablet Take one tablet daily along with 25 mg tablet to equal 75 mg daily - atenolol (TENORMIN) 25 mg tablet Take one tablet daily along with the 50 mg tablet to equal 75 mg daily - albuterol HFA (VENTOLIN HFA) 90 mcg/actuation inhaler Inhale 2 puffs as instructed every 4 hours as needed for wheezing/shortness of breath. - pregabalin (LYRICA) 150 mg capsule Take 1 capsule by mouth three times a day for 120 days. - enzalutamide (XTANDI) 80 mg tablet Take 2 tablets (160 mg) by mouth once daily. - cyclobenzaprine (FLEXERIL) 10 mg tablet Take 1 tablet by mouth as directed. 1/2 to 1 tablet po qhs as needed for spasm - acetaminophen (TYLENOL EXTRA STRENGTH) 500 mg tablet Take 1,000 mg by mouth every 8 hours as needed. - aspirin, enteric coated (ASPIRIN, ENTERIC COATED) 81 mg EC tablet Take 81 mg by mouth once daily. - cholecalciferol (VITAMIN D-3) 50 mcg (2,000 unit) tablet Take 2,000 Units by mouth once daily. - beta-carotene,A,-vits C,E/mins (OCUVITE ORAL) Take 1 tablet by mouth once daily. - calcium carbonate (CALCIUM 600 ORAL) Take 1 tablet by mouth once daily. - Multivitamin capsule Take 1 capsule by mouth once daily. Problem List As Of Date 09/27/2024 Noted Resolved Small bowel obstruction (HCC) [K56.609] 11/19/2022 GI bleed [K92.2] 11/19/2022 Nicotine use disorder, F17.2 [F17.200] 11/20/2022 Ileus (HCC) [K56.7] 11/20/2022 Screening for colon cancer [Z12.11] 12/12/2022 Prostate cancer metastatic to intraabdominal ly*01/31/2023 Osteoarthritis of multiple joints [M15.9] 01/31/2023 Mixed hyperlipidemia [E78.2] 01/31/2023 GERD (gastroesophageal reflux disease) [K21.9] 01/31/2023 Essential hypertension [I10] 01/31/2023 COPD (chronic obstructive pulmonary disease) (H*01/31/2023 Malignant neoplasm of prostate metastatic to rekha*07/13/2024 Encounter Status:Closed by NELA ZAMORA on 09/28/24 [facility] XR HIP 3V PELV+ AP/LAT LTon 09-27-2024 XR HIP 3V PELV+ AP/LAT LT * * *Final Report* * * DATE OF EXAM: Sep 27 2024 4:30PM [id number] - XR HIP 3V PELV+ AP/LAT LT / PROCEDURE REASON: multiple diagnoses * * * * Physician Interpretation * * * * TITLE: XR HIP 3V PELV+ AP/LAT LT CLINICAL INDICATION: Metastatic prostate cancer. Close fracture of the left acetabulum. TECHNIQUE: AP radiograph of the pelvis and AP/frog leg lateral radiographs of the left hip COMPARISON: Radiograph dated 08/27/2024 and MRI pelvis dated 09/14/2024 FINDINGS: Persistent and slightly increased sclerosis involving the left greater than right acetabulum which when correlating with intervening MRI is most compatible with healing insufficiency fractures. Mild sclerosis in the sacral wings also compatible with healing insufficiency fractures. Degenerative changes in the visualized lower lumbar spine. Atherosclerotic calcifications of the vasculature. IMPRESSION: Healing bilateral, left larger than right, acetabular insufficiency fractures. Healing sacral fractures. No radiographic evidence of new osseous abnormality. Header Operator: [facility] Transcribe Date/Time: Sep 27 2024 4:34P Dictated by : JHON LANCASTER MD This examination was interpreted and the report reviewed and electronically signed by: JHON LANCASTER MD on Sep 27 2024 4:37PM EST [id number] Normal [facility] XR Pelvis and Hip - left AP and Lateral frogon 09-27-2024 IMPRESSION: Healing bilateral, left larger than right, acetabular insufficiency fractures. Healing sacral fractures. No radiographic evidence of new osseous abnormality. Header Operator: [facility] Transcribe Date/Time: Sep 27 2024 4:34P Dictated by : JHON LANCASTER MD This examination was interpreted and the report reviewed and electronically signed by: JHON LANCASTER MD on Sep 27 2024 4:37PM [facility] DIVISION OF RADIOLOGY * * *Final Report* * * DATE OF EXAM: Sep 27 2024 4:30PM X [id number] - XR HIP 3V PELV+ AP/LAT LT / PROCEDURE REASON: multiple diagnoses * * * * Physician Interpretation * * * * TITLE: XR HIP 3V PELV+ AP/LAT LT CLINICAL INDICATION: Metastatic prostate cancer. Close fracture of the left acetabulum. TECHNIQUE: AP radiograph of the pelvis and AP/frog leg lateral radiographs of the left hip COMPARISON: Radiograph dated 08/27/2024 and MRI pelvis dated 09/14/2024 FINDINGS: Persistent and slightly increased sclerosis involving the left greater than right acetabulum which when correlating with intervening MRI is most compatible with healing insufficiency fractures. Mild sclerosis in the sacral wings also compatible with healing insufficiency fractures. Degenerative changes in the visualized lower lumbar spine. Atherosclerotic calcifications of the vasculature. DIVISION OF RADIOLOGY Provider, Laureano Post - 09/27/2024 * * *Final Report* * * DATE OF EXAM: Sep 27 2024 4:30PM [id number] - XR HIP 3V PELV+ AP/LAT LT / PROCEDURE REASON: multiple diagnoses * * * * Physician Interpretation * * * * TITLE: XR HIP 3V PELV+ AP/LAT LT CLINICAL INDICATION: Metastatic prostate cancer. Close fracture of the left acetabulum. TECHNIQUE: AP radiograph of the pelvis and AP/frog leg lateral radiographs of the left hip COMPARISON: Radiograph dated 08/27/2024 and MRI pelvis dated 09/14/2024 FINDINGS: Persistent and slightly increased sclerosis involving the left greater than right acetabulum which when correlating with intervening MRI is most compatible with healing insufficiency fractures. Mild sclerosis in the sacral wings also compatible with healing insufficiency fractures. Degenerative changes in the visualized lower lumbar spine. Atherosclerotic calcifications of the vasculature. IMPRESSION IMPRESSION: Healing bilateral, left larger than right, acetabular insufficiency fractures. Healing sacral fractures. No radiographic evidence of new osseous abnormality. Header Operator: [facility] Transcribe Date/Time: Sep 27 2024 4:34P Dictated by : JHON LANCASTER MD This examination was interpreted and the report reviewed and electronically signed by: JHON LANCASTER MD on Sep 27 2024 4:37PM EST [facility] Radiology Study observation (narrative) [facility] XR Pelvis and Hip - left AP and Lateral frogOrdered By: [facility]cf Provider on 09-27-2024 [facility] CNOVon 09-24-2024 CNOV Office Visit (PULMWS ) -- LUIS ANGEL AGUILA ([id number]) 1955 M Date Time Provider Department 09/24/24 3:15 PM AIMEE العلي PULMWS During your visit today, we recorded the following information about you: Pulse Respiration Blood pressure Weight 69/minute 17/minute 120/60 80.3 kg Aimee العلي MD 09/24/2024 3:18 PM Signed . [facility] Note Patient name: Luis Angel Aguila PCP: Erik Cota MD Referring Physician: Naima Sinha, JAMES Recording using ambient AI software for draft documentation of the visit was discussed with the patient/authorized promotional representative; all questions welcomed and answered. Patient/authorized promotional representative agreed to proceed Consultation requested by Naima Sinha for an opinion regarding COPD. My final recommendations will be communicated back to the requesting physician by way of shared Medical record or letter to requesting physician via US mail. CC: COPD HPI: Luis Angel Aguila 69 year old male current 26-tbns-bcat smoker with COPD, metastatic prostate cancer to the bones, GERD with Oliver's esophagus, HTN, HLD and history of pulmonary nodularity, followed with pulmonary [facility], Dr. Quinteros. Has history of hemoptysis status post bronchoscopy 10/2023 with remote previous history of hemoptysis. Participating in lung cancer screening at [facility], RML nodularity (1.5 x 1.2 cm) without abnormal uptake on PET scan and adjacent 6 mm RML nodule. Previous episodes of hemoptysis occurred when he was living in [place] and attributed it to the dry air as well as altitude. He had bronchoscopy in the past treated with a epi wash. Prostate cancer initially diagnosed in 2021, s/p resection, radiation and ADT. Not tolerant of consistent ADT due to side effects. Now has bony metastases. Current therapy for prostate cancer Wali, recently completed radiation therapy to left pelvis/acetabulum. Being referred for evaluation and management of COPD. Luis Angel has been using Stiolto Respimat for approximately 1 year and reports it seems to help with breathing and expectoration of phlegm. He also uses albuterol as a rescue inhaler. He has a history of smoking since age 11 and does not intend to quit. He reports a smoker's cough primarily in the morning and experiences dyspnea with activity, which is exacerbated by heat and humidity exposure. No further hemoptysis since last year. He denies awareness of wheezing, though his confirms its presence. No history of PNA or recurrent bronchitis. No history of asthma or allergies. He does report remote exposure to extreme cold and was told he had smyth bite of his lungs. DATA: COPD Assessment Test I never cough 0 1 2 3 4 5 I cough all the time; Score 3 I have no phlegm 0 1 2 3 4 5 My chest is completely full of phlegm; Score 4 My chest does not feel tight at all 0 1 2 3 4 5 My chest chest feels very tight; Score 3 When I walk up a hill or one flight of stairs I am not breathless 0 1 2 3 4 5 When I walk up a hill or one flight or stairs I am very breathless; Score 4 I am not limited doing any activities at home 0 1 2 3 4 5 I am very limited doing activities at home; Score I am confident leaving my home despite my lung condition 0 1 2 3 4 5 I am not at all confident leaving my home because of my lung condition; Score 2 I sleep soundly 0 1 2 3 4 5 don't sleep soundly because of my lungs; Score 2 I have lots of energy 0 1 2 3 4 5 I have no energy at all; Score 4 Total Score: 26 PFT: Pulmonary function testing shows moderately severe obstruction with marked improvement postbronchodilator. Moderate reduction in diffusing capacity PFT 2017: FVC 2.88 L 60% increases to 3.61 L postbronchodilator FEV1 2.14 L 59% increases to 2.80 L later FEV1 seen ratio 74% TLC 5.96 L 83% RV 2.98 L 128% DLCO 28.18 82% Bronchoscopy 10/2023: The endotracheal tube is in good position. The visualized portion of the trachea is of normal caliber. The alexis is sharp. The tracheobronchial tree was examined to at least the first subsegmental level. Bronchial mucosa and anatomy are normal; there are no endobronchial lesions, and no secretions. I carefully probed all the airways of both lungs, all airways clear to the segmental level. NO evidence of any hemoptysis. Next, I obtained a BAL from the RML. With the bronchoscopy wedged in the RML medial segment, a total of 120 cc of saline was instilled. A total of 30 cc of slightly cellular fluid was aspirated back, and this was sent for cytology and micro (aerobic, fungal, AFB). Next, Next, I obtained a BAL from the EZRA. With the bronchoscopy wedged in the EZRA superior lingular bronchus, a total of 120 cc of saline was instilled. A total of 30 cc of slightly cellular fluid was aspirated back, and this was sent for cytology and micro (aerobic, fungal, AFB). Labs: E (more content not included)... Normal [facility] LUNG DIFFUSION CAPACITY (URVASHI O)on 09-24-2024 LUNG DIFFUSION CAPACITY (DLCO) [facility] [place] [address] 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 No contraindications or sensitivities were noted. Meds taken: Stiolto 4.5 hours before testing. Current ATS/ERS acceptability and repeatability standards for DLCO met with 2 acceptable maneuvers. PRE-BRONCHODILATOR: Current ATS/ERS acceptability and repeatability standards for spirometry met. Start of test and EOFE criteria met. POST-BRONCHODILATOR: The two largest FVCs were not repeatable. The two largest FEV1s were not repeatable. IMPRESSION: Spirometry indicates moderate obstruction. Positive bronchodilator response. The diffusing capacity (uncorrected for hemoglobin) is reduced. The reduced kCO (DLCO/VA) reflects an alteration of the normal transfer/diffusion of CO from the alveolar regions to the blood. Clinical correlation recommended. Electronically Signed On 09-24-2024 15:19:09 EDT by Aimee العلي MD ID: [id number] Name: LUIS ANGEL AGUILA Race: White Ht: 69.37 in Wt: 177.00 lbs Age: 69 Gender: Male : 1955 Dx: COPD_ Smoking Hx: Non-smoker Doctor: AIMEE العلي Test Date: 09/24/2024 Site: Tech: Dionne Linda PRE-BRONCH POST-BRONCH Jacquelyn LLN Pred ULN %Pred ZScore Jacquelyn %Pred %Chg ZScore SPIROMETRY FVC 2.73 2.93 3.94 4.97 69 -1.97 3.35 85 15 -0.95 FEV1 1.60 2.18 2.98 3.74 53 -2.75 2.14 71 18 -1.71 FEV1/FVC 0.58 0.63 0.77 0.87 76 -2.16 0.64 83 9 -1.60 FEFMax 4.79 5.88 8.16 10.43 58 -2.44 5.94 72 24 -1.60 FEF50 0.87 1.80 3.93 6.05 22 -2.37 2.31 58 166 -1.26 FIF50 3.70 3.97 7 FEF50/FIF50 0.23 90-100 0.58 147 FIVC 2.58 3.04 17 HPG93-80 0.55 1.03 2.38 4.30 22 -2.50 1.86 78 241 -0.56 ExpiredTime 12.85 13.77 7 TimeToFEFMax 0.07 0.09 33 CARLEEN 0.06 0.09 40 VolExtrap% 2 3 14 LUNG DIFFUSION DLCOunc 12.17 18.62 25.33 33.33 48 -3.61 DLCOStdPB 11.95 18.62 25.33 33.33 47 -3.69 VA 4.76 5.06 6.28 7.60 75 -2.07 Kco 2.51 3.00 4.05 5.20 61 -2.48 Comments: Medications and Allergies were reviewed for possible drug interactions per policy. No contraindications or sensitivities were noted. Meds taken: Stiolto 4.5 hours before testing. Current ATS/ERS acceptability and repeatability standards for DLCO met with 2 acceptable maneuvers. PRE-BRONCHODILATOR: Current ATS/ERS acceptability and repeatability standards for spirometry met. Start of test and EOFE criteria met. POST-BRONCHODILATOR: The two largest FVCs were not repeatable. The two largest FEV1s were not repeatable. 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 No contraindications or sensitivities were noted. Meds taken: Stiolto 4.5 hours before testing. Current ATS/ERS acceptability and repeatability standards for DLCO met with 2 acceptable maneuvers. PRE-BRONCHODILATOR: Current ATS/ERS acceptability and repeatability standards for spirometry met. Start of test and EOFE criteria met. POST-BRONCHODILATOR: The two largest FVCs were not repeatable. The two largest FEV1s were not repeatable. IMPRESSION: Spirometry indicates moderate obstruction. Positive bronchodilator response. The diffusing capacity (uncorrected for hemoglobin) is reduced. The reduced kCO (DLCO/VA) reflects an alteration of the normal transfer/diffusion of CO from the alveolar regions to the blood. Clinical correlation recommended. Electronically Signed On 09-24-2024 15:19:09 EDT by Aimee العلي MD ID: [id number] Name: LUIS ANGEL AGUILA Race: White Ht: 69.37 in Wt: 177.00 lbs Age: 69 Gender: Male : 1955 Dx: COPD_ Smoking Hx: Non-smoker Doctor: AIMEE العلي Test Date: 09/24/2024 Site: Tech: Dionne Linda PRE-BRONCH POST-BRONCH Jacquelyn LLN Pred ULN %Pred ZScore Jacquelyn %Pred %Chg ZScore SPIROMETRY FVC 2.73 2.93 3.94 4.97 69 -1.97 3.35 85 15 -0.95 FEV1 1.60 2.18 2.98 3.74 53 -2.75 2.14 71 18 -1.71 FEV1/FVC 0.58 0.63 0.77 0.87 76 -2.16 0.64 83 9 -1.60 FEFMax 4.79 5.88 8.16 10.43 58 -2.44 5.94 72 24 -1.60 FEF50 0.87 1.80 3.93 6.05 22 -2.37 2.31 58 166 -1.26 FIF50 3.70 3.97 7 FEF50/FIF50 0.23 90-100 0.58 147 FIVC 2.58 3.04 17 RZM65-27 0.55 1.03 2.38 4.30 22 -2.50 1.86 78 241 -0.56 ExpiredTime 12.85 13.77 7 TimeToFEFMax 0.07 0.09 33 CARLEEN 0.06 0.09 40 VolExtrap% 2 3 14 LUNG DIFFUSION DLCOunc 12.17 18.62 25.33 33.33 48 -3.61 DLCOStdPB 11.95 18.62 25.33 33.33 47 -3.69 VA 4.76 5.06 6.28 7.60 75 -2.07 Kco 2.51 3.00 4.05 5.20 61 -2.48 Comments: Medications and Allergies were reviewed for possible drug interactions per policy. No contraindications or sensitivities were noted. Meds taken: Stiolto 4.5 hours before testing. Current ATS/ERS acceptability and repeatability standards for DLCO met with 2 acceptable maneuvers. PRE-BRONCHODILATOR: Current ATS/ERS acceptability and repeatability standards for spirometry met. Start of test and EOFE criteria met. POST-BRONCHODILATOR: The two largest FVCs were not repeatable. The two largest FEV1s were not repeatable. PULMONARY FUNCTION LAB [facility] SPIROMETRY WITH DILATOR IF O BSTRUCTEDon 09-24-2024 DLCO (ml/min/mmHg) 12.17 ml/min/mmHg [facility] DLCO LLN (ml/min/mmHg) 18.62 ml/min/mmHg [facility] DLCO PREDICTED (ml/min/mmHg) 25.33 ml/min/mmHg [facility] DLCO ULN (ml/min/mmHg) 33.33 ml/min/mmHg [facility] DLCO/VA (ml/min/mmHg/L) 0.03 ml/min/mmHg /L [facility] DLCO/VA PREDICTED (ml/min/mmHg/L) 0.04 ml/min/mmHg /L [facility] DLCO/VAcor (ml/min/mmHg/L) 0.03 ml/min/mmHg /L [facility] DLCOcor (ml/min/mmHg) 11.95 ml/min/mmHg [facility] DLCOcor PREDICTED (ml/min/mmHg) 25.33 ml/min/mmHg [facility] ERV PREDICTED (L) 1.31 L/S [facility] FEF25% POST (L/S) 5.69 L/S [facility] FEF25% PRE (L/S) 2.8 L/S [facility] PGD81-50% LLN (L/S) 1.03 L/S [facility] PQH54-36% POST (L/S) 1.86 L/S [facility] DRD60-23% PRE (L/S) 0.55 L/S [facility] JCE43-84% PREDICTED (L/S) 2.38 L/S [facility] FEF75% LLN (L/S) 0.23 L/S [facility] FEF75% POST (L/S) 0.73 L/S [facility] FEF75% PRE (L/S0 0.16 L/S [facility] FEF75% PREDICTED (L/S) 0.64 L/S [facility] FEF75% ULN (L/S) 1.67 L/S [facility] FET POST (S) 13.77 S [facility] FET PRE (S) 12.85 S [facility] FEV1 LLN (L) 2.18 L [facility] FEV1 PRE (L) 1.6 L [facility] FEV1 PREDICTED (L) 2.98 L [facility] FEV1 ULN (L) 3.74 L [facility] FEV1/FVC LLN (%) 63 % [facility] FEV1/FVC POST (%) 64 % [facility] FEV1/FVC PRE (%) 57 % [facility] FEV1/FVC PREDICTED (%) 77 % [facility] FEV1_POST (L) 2.14 L [facility] FVC LLN (L) 2.93 L [facility] FVC POST (L) 3.35 L [facility] FVC PRE (L) 2.73 L [facility] FVC PREDICTED (L) 3.94 L [facility] FVC ULN (L) 4.97 L [facility] IC PREDICTED (L) 2.63 L/S [facility] PEF LLN (L/S) 5.88 L/S [facility] PEF POST (L/S) 5.94 L/S [facility] PEF PRE (L/S) 4.79 L/S [facility] PEF ULN (L/S) 10.43 L/S [facility] SVC LLN (L) 2.93 L/S [facility] SVC PREDICTED (L) 3.94 L/S [facility] SVC ULN (L) 4.97 L/S [facility] VA (L) 4.76 L [facility] VA PREDICTED (L) 6.28 L [facility] SPIROMETRY WITH DILATOR IF OBSTRUCTED [facility] [place] [address] [place] [address] Test Date: 2024-09-24 Pat Name: LUIS ANGEL AGUILA Department: Room: 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 No contraindications or sensitivities were noted. Meds taken: Stiolto 4.5 hours before testing. Current ATS/ERS acceptability and repeatability standards for DLCO met with 2 acceptable maneuvers. PRE-BRONCHODILATOR: Current ATS/ERS acceptability and repeatability standards for spirometry met. Start of test and EOFE criteria met. POST-BRONCHODILATOR: The two largest FVCs were not repeatable. The two largest FEV1s were not repeatable. IMPRESSION: Spirometry indicates moderate obstruction. Positive bronchodilator response. The diffusing capacity (uncorrected for hemoglobin) is reduced. The reduced kCO (DLCO/VA) reflects an alteration of the normal transfer/diffusion of CO from the alveolar regions to the blood. Clinical correlation recommended. Electronically Signed On 09-24-2024 15:19:09 EDT by Aimee العلي MD ID: [id number] Name: LUIS ANGEL AGUILA Race: White Ht: 69.37 in Wt: 177.00 lbs Age: 69 Gender: Male : 1955 Dx: COPD_ Smoking Hx: Non-smoker Doctor: AIMEE العلي Test Date: 09/24/2024 Site: WO Tech: Dionne Linda PRE-BRONCH POST-BRONCH Jacquelyn LLN Pred ULN %Pred ZScore Jacquelyn %Pred %Chg ZScore SPIROMETRY FVC 2.73 2.93 3.94 4.97 69 -1.97 3.35 85 15 -0.95 FEV1 1.60 2.18 2.98 3.74 53 -2.75 2.14 71 18 -1.71 FEV1/FVC 0.58 0.63 0.77 0.87 76 -2.16 0.64 83 9 -1.60 FEFMax 4.79 5.88 8.16 10.43 58 -2.44 5.94 72 24 -1.60 FEF50 0.87 1.80 3.93 6.05 22 -2.37 2.31 58 166 -1.26 FIF50 3.70 3.97 7 FEF50/FIF50 0.23 90-100 0.58 147 FIVC 2.58 3.04 17 AWF71-87 0.55 1.03 2.38 4.30 22 -2.50 1.86 78 241 -0.56 ExpiredTime 12.85 13.77 7 TimeToFEFMax 0.07 0.09 33 CARLEEN 0.06 0.09 40 VolExtrap% 2 3 14 LUNG DIFFUSION DLCOunc 12.17 18.62 25.33 33.33 48 -3.61 DLCOStdPB 11.95 18.62 25.33 33.33 47 -3.69 VA 4.76 5.06 6.28 7.60 75 -2.07 Kco 2.51 3.00 4.05 5.20 61 -2.48 Comments: Medications and Allergies were reviewed for possible drug interactions per policy. No contraindications or sensitivities were noted. Meds taken: Stiolto 4.5 hours before testing. Current ATS/ERS acceptability and repeatability standards for DLCO met with 2 acceptable maneuvers. PRE-BRONCHODILATOR: Current ATS/ERS acceptability and repeatability standards for spirometry met. Start of test and EOFE criteria met. POST-BRONCHODILATOR: The two largest FVCs were not repeatable. The two largest FEV1s were not repeatable. FVC_PRE (L) : 2.73 L FVC_POST (L) : 3.35 L FVC_PRED (L) : 3.94 L FVC_LLN (L) : 2.93 L FVC_ULN (L) : 4.97 L FEV1_PRE (L) : 1.60 L FEV1_POST (L) : 2.14 L FEV1_PRED (L) : 2.98 L FEV1_LLN (L) : 2.18 L FEV1_ULN (L) : 3.74 L FEV1/FVC_PRE (%) : 57 % FEV1/FVC_POST (%) : 64 % FEV1/FVC_PRED (%) : 77 % FEV1/FVC_LLN (%) : 63 % WTD22_PMB (L/S) : 2.80 L/S XKQ35_YLUY (L/S) : 5.69 L/S ATS30_VEZ (L/S) : 0.16 L/S JHD81_TQPP (L/S) : 0.73 L/S GLL16_KCBS (L/S) : 0.64 L/S QXN98_HUR (L/S) : 0.23 L/S TGT25_TTW (L/S) : 1.67 L/S VLN00-75%_PRE (L/S) : 0.55 L/S CTZ94-77%_POST (L/S) : 1.86 L/S GEI98-53%_PRED (L/S) : 2.38 L/S VCO44-98%_LLN (L/S) : 1.03 L/S PEF_PRE (L/S) : 4.79 L/S PEF_POST (L/S) : 5.94 L/S PEFMAX_LLN (L/S) : 5.88 L/S PEFMAX_ULN (L/S) : 10.43 L/S SVC_PRED (L) : 3.94 L/S SVC_LLN (L) : 2.93 L/S SVC_ULN (L/S) : 4.97 L/S IC_PRED (L) : 2.63 L/S ERV_PREDICTED (L) : 1.31 L/S DLCO (ML/MIN/MMHG) : 12.17 ml/min/mmHg DLCO_PRED (ML/MIN/MMHG) : 25.33 ml/min/mmHg DLCO_LLN(ML/MIN/MMHG) : 18.62 ml/min/mmHg DLCO_ULN (ML/MIN/MMHG) : 33.33 ml/min/mmHg FET_PRE (S) : 12.85 S FET_POST (S) : 13.77 S VA (L) : 4.76 L VA_PRD (L) : 6.28 L DLCO/VA (ML/MIN/MMHG/L) : 0.03 ml/min/mmHg/L DLCO_VA_PRED (L) : 0.04 ml/min/mmHg/L DLCOCOR (ML/MIN/MMHG) : 11.95 ml/min/mmHg DLCOCOR_PRED (ML/MIN/MMHG) : 25.33 ml/min/mmHg DLCO/VACOR (ML/MIN/MMHG/L) : 0.03 ml/min/mmHg/L Normal [facility] CNPNon 09-21-2024 CNPN Telephone (TAHIR) -- LUIS ANGEL AGUILA ([id number]) 1955 M Date Time Provider Department 09/21/24 SEBASTIÁN GARCIA During your visit today, we recorded the following information about you: Sebastián Garcia RN 09/21/2024 11:03 AM Signed ORAL ANTI-CANCER AGENTS FOLLOW-UP PHONE CALL Patient identified by name and date of . YES Patient is on day 8 of Xtandi (enzalutamide) for Prostate Cancer. SYMPTOM ASSESSMENT Headache: No Visual Changes: No Dizziness: No Do you have any periods of confusion? No Mood changes: No Mouth or throat pain: No Appetite: no changes in appetite, appetite fair Taste changes: No Nausea: No Vomiting: No Heartburn: No. Weight gain/loss: No Episodes of palpitations/chest discomfort/pressure/pain No Shortness of breath: No Cough: No Diarrhea: no Constipation: no Bladder/Urinary Changes: None Pain: Yes, continued pain in hips, being followed by Palliative care, [facility], they increased dose of Lyrica last week. Advised to reach out to them with an update. Fever: No Chills: No Cold sensitivity: No Numbness/weakness: No Edema: No Skin changes: No Itching: No Yellowing of skin or eyes: No Musculoskeletal/joint changes/issues No Bleeding issues: No Activity Level (0-100%): same as baseline Does the patient need interventions or same day appointment:No ADDITIONAL FOLLOW UP: The next outreach call is due on: na and was scheduled na The following lab tests are due: 10/18/24 Verified patient is aware of next appointment in the cancer center: Yes. Verified patient verbalized how to correctly refill the oral agent prescription. Yes Does the patient have any financial difficulties affording this medication? No Patient verbalizes understanding of when to seek Medical Attention? YES Patient verbalizes understanding of after-hours and weekend phone number? YES Patient verbalized importance of medication compliance in taking the oral agent as prescribed. Patient instructed to call if unable to comply. Sebastián Garcia RN Allergies As of Date: 09/21/2024 Noted Allergy Reaction MORPHINE 10/25/2022 2 - Rash 9 - Itching PREDNISONE 10/25/2022 1 - Mental Status Change Date Reviewed: 09/14/2024 Reviewed by: Monica Jugn DO - Fully Assessed Reason for Visit: Care Coordination [3491] Cmt: ORAL ANTI-CANCER AGENTS FOLLOW-UP PHONE CALL Prescriptions as of 09/21/2024 - amLODIPine (NORVASC) 5 mg tablet Take 1 tablet by mouth once daily. - tiotropium-olodaterol (STIOLTO RESPIMAT) 2.5-2.5 mcg/actuation inhaler Inhale 2 puffs as instructed once daily. - omeprazole (PRILOSEC) 40 mg capsule Take 1 capsule by mouth two times a day. - lisinopril (ZESTRIL) 40 mg tablet Take 1 tablet by mouth once daily. - famotidine (PEPCID) 40 mg tablet Take 1 tablet by mouth once daily. - senna (SENOKOT) 8.6 mg tab Take 1 tablet by mouth two times a day. - atorvastatin (LIPITOR) 40 mg tablet Take 1 tablet by mouth daily at bedtime. For cholesterol. - atenolol (TENORMIN) 50 mg tablet Take one tablet daily along with 25 mg tablet to equal 75 mg daily - atenolol (TENORMIN) 25 mg tablet Take one tablet daily along with the 50 mg tablet to equal 75 mg daily - albuterol HFA (VENTOLIN HFA) 90 mcg/actuation inhaler Inhale 2 puffs as instructed every 4 hours as needed for wheezing/shortness of breath. - pregabalin (LYRICA) 150 mg capsule Take 1 capsule by mouth three times a day for 120 days. - enzalutamide (XTANDI) 80 mg tablet Take 2 tablets (160 mg) by mouth once daily. - cyclobenzaprine (FLEXERIL) 10 mg tablet Take 1 tablet by mouth as directed. 1/2 to 1 tablet po qhs as needed for spasm - acetaminophen (TYLENOL EXTRA STRENGTH) 500 mg tablet Take 1,000 mg by mouth every 8 hours as needed. - aspirin, enteric coated (ASPIRIN, ENTERIC COATED) 81 mg EC tablet Take 81 mg by mouth once daily. - cholecalciferol (VITAMIN D-3) 50 mcg (2,000 unit) tablet Take 2,000 Units by mouth once daily. - beta-carotene,A,-vits C,E/mins (OCUVITE ORAL) Take 1 tablet by mouth once daily. - calcium carbonate (CALCIUM 600 ORAL) Take 1 tablet by mouth once daily. - Multivitamin capsule Take 1 capsule by mouth once daily. Problem List As Of Date 09/21/2024 Noted Resolved Small bowel obstruction (HCC) [K56.609] 11/19/2022 GI bleed [K92.2] 11/19/2022 Nicotine use disorder, F17.2 [F17.200] 11/20/2022 Ileus (HCC) [K56.7] 11/20/2022 Screening for colon cancer [Z12.11] 12/12/2022 Prostate cancer metastatic to intraabdominal ly*01/31/2023 Osteoarthritis of multiple joints [M15.9] 01/31/2023 Mixed hyperlipidemia [E78.2] 01/31/2023 GERD (gastroesophageal reflux disease) [K21.9] 01/31/2023 Essential hypertension [I10] 01/31/2023 COPD (chronic obstructive pulmonary disease) (H*01/31/2023 Malignant neoplasm of prostate metastatic to rekha*07/13/2024 (more content not included)... Normal [facility] 25(OH)D3 Shannonl-Mariela 2024 25-hydroxyvitamin D3 [Mass/Vol] 61.0 ng/mL Normal 31.0-80.0 [facility] Comment on above: Order Comment: Speci men Type: BLOOD SPECIMEN Ordering Facility: [facility] Address: [address] [place] [address] Result Comment: Clas sification of 25 [place] Vitamin D status: Deficiency/Insufficiency: < or = 30 ng/ml. Sufficiency/Optimal Levels: 31-80 ng/mL Toxicity: > 100 ng/mL. Test performed by chemiluminescent immunoassay. Performed By: #### 2 4321-2 #### [facility] CLIA [id number] [address] [place] [address] [place] 25-hydroxyvitamin D3 [Mass/V ol]on 09-16-2024 Interpretation and review of laboratory results Normal [facility] The reference range interval was based on an analysis of samples from healthy adults and may not pertain to children from 0-18 years old. [facility] VITAMIN D 25 HYDROXYon 09-16 25-hydroxyvitamin D3 [Mass/Vol] 61 ng/mL 31.0 - 80.0 ng/mL [facility] Comment on above: Classification of 25 [place] Vitamin D status: Deficiency/Insufficiency: < or = 30 ng/ml. Sufficiency/Optimal Levels: 31-80 ng/mL Toxicity: > 100 ng/mL. Test performed by chemiluminescent immunoassay. 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 Patient/authorized promotional representative agreed to proceed SUBJECTIVE: This is a 69 year old that is here today for Above Complaints. Prostate Cancer with Bone Metastasis: - Followed by Dr. Jung; has an appointment today. - Scheduled for an MRI prior to the appointment. - Recently completed a round of radiation therapy. - Reports severe pain, rated 8-10/10. - Currently taking Lyrica 150 mg TID and Tylenol Arthritis for pain management. - Prescribed Oxycodone but has not taken it due to concerns about drug screening at work. - Desires to continue working as long as possible despite pain. Hypertension: - Blood pressure readings at home are consistent with today's reading. - Taking amlodipine 5 mg, lisinopril 40 mg, and atenolol 75 mg (25 mg and 50 mg tablets). 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 COPD: - Reports increased dyspnea and productive cough with phlegm. - Uses albuterol inhaler PRN; requests a refill. - Continues to smoke; denies interest in smoking cessation. Aortic Aneurysm: - Diagnosed with aortic ectasia measuring up to 4.[address] scan. - Advised that intervention is not necessary until it reaches 5 cm. Gastroesophageal Reflux Disease: - Taking omeprazole BID and Pepcid at bedtime. - Recently switched from a stool softener to Senokot at bedtime. Hyperlipidemia: - Taking a cholesterol-lowering medication. 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 (Patient taking differently: Take 150 mg by mouth three times a day.) enzalutamide (XTANDI) 80 mg tablet Take 2 tablets (160 mg) by mouth once daily. cyclobenzaprine (FLEXERIL) 10 mg tablet Take 1 tablet by mouth as directed. 1/2 to 1 tablet po qhs as needed for spasm acetaminophen (TYLENOL EXTRA STRENGTH) 500 mg tablet Take 1,000 mg by mouth every 8 hours as needed. aspirin, enteric coated (ASPIRIN, ENTERIC COATED) 81 mg EC tablet Take 81 mg by mouth once daily. cholecalciferol (VITAMIN D-3) 50 mcg (2,000 unit) tablet Take 2,000 Units by mouth once daily. beta-carotene,A,-vits C,E/mins (OCUVITE ORAL) Take 1 tablet by mouth once daily. calcium carbonate (CALCIUM 600 ORAL) Take 1 tablet by mouth once daily. Multivitamin capsule Take 1 capsule by mouth once daily. amLODIPine (NORVASC) 5 mg tablet Take 1 tablet by mouth once daily. tiotropium-olodaterol (STIOLTO RESPIMAT) 2.5-2.5 mcg/actuation inhaler Inhale 2 puffs as instructed once daily. omeprazole (PRILOSEC) 40 mg capsule Take 1 capsule by mouth two times a day. lisinopril (ZESTRIL) 40 mg tablet Take 1 tablet by mouth once daily. famotidine (PEPCID) 40 mg tablet Take 1 tablet by mouth once daily. senna (SENOKOT) 8.6 mg tab Take 1 tablet by mouth two times a day. atorvastatin (LIPITOR) 40 mg tablet Take 1 tablet by mouth daily at bedtime. For cholesterol. atenolol (TENORMIN) 50 mg tablet Take one tablet daily along with 25 mg tablet to equal 75 mg daily atenolol (TENORMIN) 25 mg tablet Take one tablet daily along with the 50 mg tablet to equal 75 mg daily albuterol HFA (VENTOLIN HFA) 90 mcg/actuation inhaler Inhale 2 puffs as instructed every 4 hours as needed for wheezing/shortness of breath. No current facility-administered medications for this visit. Medications and allergies reviewed by this provider. SOCIAL HISTORY Social History Tobacco Use Smoking status: Every Day Current packs/day: 1.00 Average packs/day: 1 pack/day for 55.0 years (55.0 ttl pk-yrs) Types: Cigarettes Smokeless tobacco: Never Vaping Use Vaping status: Never Used Substance Use Topics Alcohol use: Yes Comment: occasionaly Drug use: Never REVIEW OF SYSTEMS All other reviewed and negative other than HPI. OBJECTIVE: BP 104/68 Pulse (!) 57 (more content not included)... Normal [facility] CNOVSPon 09-14-2024 CNOVSP Visit (SP) Office (H EMAWS) -- LUIS ANGEL AGUILA ([id number]) 1955 M Date Time Provider Department 09/14/24 4:00 PM MONICA JUNG During your visit today, we recorded the following information about you: Temperature Pulse Respiration Blood pressure 97.1 degrees 66/minute 16/minute 110/73 Weight 79.6 kg Monica Jung DO 09/14/2024 4:44 PM Signed Oncologic problem(s): 1) Castrate sensitive prostate cancer. HPI: The patient is a 69-year-old male with past medical history significant for hyperlipidemia, hypertension, moderate COPD, GERD, previous cervical spine surgery, chronic low back pain and prostate cancer. Developed gross hematuria. PSA 50s. RP with penile implant. Bladder tear about a month later. PET--recurrence in prostate bed. 06/2021 4 weeks RT in [place] with GnRH agonist treatment (Lupron). Stopped due to side effects--Severe diarrhea and n/v. PSA undetectable 06/2022. Presumably from Lupron. CT A/P 11/18/2022: IMPRESSION: 1. Postoperative ileus versus changes of early small bowel obstruction within the right pelvis as discussed above. Short-term follow-up suggested. 2. Changes of recent prostatectomy and penile implant. There is a 6.0 x 2.7 x 9.5 cm nonencapsulated postoperative fluid collection within the right lower quadrant subcutaneous fat adjacent to the penile pump. 3. Mild free fluid. 4. Sacral insufficiency fractures. Medically managed for SBO. Saw Dr. Ariza at 11/10/2023: -Assessment/Plan I personally saw patient and counselled all visit on his diagnosis, kamilla history and coordination of his care. This is a 68 y.o. male man known with LN+ PC on ADT (d/c zytiga/pred and apa s/t AEs) with T > 50 and low PSA and negative recent PSMA (June 2022). He had incomplete salvage XRT but aborted s/t bowel tox. He is discontinuing ADT per pt preference - understands R/A of this decision. He was found with some lung abn, but PET was negative and bronch results pending. He is smoker. Will call him in few weeks to Fup on bronch results We discussed the clinical significance of diagnosis, goals of care and treatment plan in detail. Thank you for the opportunity to be involved in the care of Luis Angel Aguila. Please do not hesitate to reach out with any questions. Thank you. Path was negative. Per recent note from [facility] -Follow up sp EGD with biopsies 11/26/2023. 1 cm circumferential salmon colored mucosa seen at the GE junction at the time of EGD, consistent with short segment Oliver's esophagus. 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 We discussed the etiology of Oliver's and need for continued endoscopic surveillance due to risk of malignancy. Recommend patient continue on his PPI/H2 nabil, repeat EGD in 5 years for surveillance. OV 07/05/2024: Had a PSMA PET scan done at . 04/2024 Impression: 1. Status post prostatectomy without focally increased Ga68 PSMA expression within the prostate gland to suggest local recurrence. 2. Mild PSMA-avid sub-centimeter aortocaval lymph node, nereida metastasis cannot be excluded. Production Weigher images sent to PACS for review. 3. Mild PSMA expression within the lung nodule along right heart border which was not FDG avid on PET dated 10/01/2023, non-specific. Continued attention on follow-up imaging is recommended. 4. Mild Ga68 PSMA-avid within right iliac bone lesion, although not typical for prosthetic bone metastasis, continued attention on follow-up imaging is recommended. I'm not doing anymore of those shots. Hot flashes resolved. No symptoms of LUTS. LBP significantly improved after epidural injection. 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 OV 07/12/2024: Had repeat PET scan. Has occasional hip pain previously relieved with cortisone injections. Still working 12 to 14 hours a day. No pain getting in and out of the truck. Current therapy: 1) Radiation. Completed 07/29/2024. 2) Eligard. Presents for ongoing oncologic management. 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 Established with palliative care--Lyrica increased to TID. Has Xtandi on hand--got it yesterday. Planning to start tonight. Side effects from Eligard are tolerable. PAST MEDICAL HISTORY Diagnosis Date Abdominal aortic aneurysm seen on CT of chest for lung cancer screening COPD (chronic obstructive pulmonary disease) (HCC) Essential hypertension GERD (gastroesophageal reflux disease) Malignant neoplasm of prostate metastatic to bone (HCC) 07/13/2024 Mixed hyperlipidemia Nodule of right lung Osteoarthritis of multiple joints 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) S/P prostatectomy Tobacco use disorder PAST SURGICAL HISTORY Procedure Laterality Date ABDOMINAL SURGERY HX APPENDECTOMY COLONOSC (more content not included)... Normal [facility] LIPID PANEL, NONFASTINGon Cholesterol [Mass/Vol] 195 mg/dL NINF - 200 mg/dL [facility] Comment on above: <200 mg/dL, Desirabl e 200-239 mg/dL, Borderline high >239 mg/dL, High HDL Cholesterol, Nonfasting 57 mg/dL 39 - PINF mg/dL [facility] Comment on above: 40-59 mg/dL, Accepta ble >59 mg/dL, High: Negative risk factor for coronary heart disease <40 mg/dL, Low: Positive risk factor for coronary heart disease Interpretation and review of laboratory results Abnormal [facility] LDL Cholesterol Calculated, Nonfasting 109 mg/dL High NINF - 100 mg/dL [facility] Comment on above: <100 mg/dL, Optimal 100-129 mg/dL, Near optimal/above optimal 130-159 mg/dL, Borderline high 160-189 mg/dL, High >189 mg/dL, Very high Secondary prevention optimal LDL Cholesterol levels are recommended to be <70 mg/dL LDL cholesterol is calculated using the Cortez-NIH equation. LDL/HDL Ratio, Nonfasting 1.91 mg/dL NINF - 2.54 mg/dL [facility] Comment on above: Reference: 1. National Cholesterol Education Program ATP III Guideline At-A-Glance Quick Desk Reference: National Heart, Lung, and Blood [place]. National Institutes of Health. 2001: NIH Publication No. 01-3305. 2. An International Atherosclerosis Society position paper: global recommendations for the management of dyslipidemia: executive summary, Atherosclerosis. 2014: 232(2):410-413. Non HDL Cholesterol, Nonfasting 138 mg/dL High NINF - 130 mg/dL [facility] Comment on above: <130 mg/dL, Optimal 130-159 mg/dL, Near optimal/above optimal 160-189 mg/dL, Borderline high 190-219 mg/dL, High >219 mg/dL, Very high Secondary prevention optimal non HDL Cholesterol levels are recommended to be <100 mg/dL Total Chol/HDL Ratio, Nonfasting 3.42 mg/dL NINF - 5.10 mg/dL [facility] Triglycerides, Nonfasting 165 mg/dL High NINF - 150 mg/dL [facility] Comment on above: <150 mg/dL, Normal 150-199 mg/dL, Borderline high 200-499 mg/dL, High >499 mg/dL, Very high VLDL Cholesterol, Nonfasting 28 mg/dL NINF - 30 mg/dL [facility] Cholesterol [Mass/Vol] 195 mg/dL Normal <200 [facility] Comment on above: Order Comment: Speci men Type: BLOOD SPECIMEN Ordering Facility: [facility] Address: [address] [place] [address] Result Comment: <200 mg/dL, Desirable 200-239 mg/dL, Borderline high >239 mg/dL, High Performed By: #### 2 4323-8 #### [facility] [id number] [address] [place] [address] STATES OF [facility] HDL CHOLESTEROL, NF 57 mg/dL Normal >39 [facility] Comment on above: Order Comment: Speci men Type: BLOOD SPECIMEN Ordering Facility: [facility] Address: [address] [place] [address] Result Comment: 40-5 9 mg/dL, Acceptable >59 mg/dL, High: Negative risk factor for coronary heart disease <40 mg/dL, Low: Positive risk factor for coronary heart disease Performed By: #### 2 4323-8 #### [facility] [id number] [address] [place] [address] [place] LDL CHOLESTEROL CALCULATED, NF 109 mg/dL High <100 [facility] Comment on above: Order Comment: Dion hawk Type: BLOOD SPECIMEN Ordering Facility: [facility] Address: [address] [place] [address] Result Comment: <100 mg/dL, Optimal 100-129 mg/dL, Near optimal/above optimal 130-159 mg/dL, Borderline high 160-189 mg/dL, High >189 mg/dL, Very high Secondary prevention optimal LDL Cholesterol levels are recommended to be <70 mg/dL LDL cholesterol is calculated using the Cortez-NIH equation. Performed By: #### 2 4323-8 #### [facility] [id number] [address] [place] [address] [place] LDL/HDL RATIO, NF 1.91 mg/dL Normal <2.54 [facility] Comment on above: Order Comment: Dion hawk Type: BLOOD SPECIMEN Ordering Facility: [facility] Address: [address] [place] [address] Result Comment: Rosalie noriega: 1. National Cholesterol Education Program ATP III Guideline At-A-Glance Quick Desk Reference: National Heart, Lung, and Blood [place]. National Institutes of Health. 2001: NIH Publication No. 01-3305. 2. An International Atherosclerosis Society position paper: global recommendations for the management of dyslipidemia: executive summary, Atherosclerosis. 2014: 232(2):410-413. Performed By: #### 2 4323-8 #### [facility] [id number] [address] [place] [address] [place] NON HDL CHOL, NF 138 mg/dL High <[address] [facility] Comment on above: Order Comment: Dion hawk Type: BLOOD SPECIMEN Ordering Facility: [facility] Address: [address] [place] [address] Result Comment: <130 mg/dL, Optimal 130-159 mg/dL, Near optimal/above optimal 160-189 mg/dL, Borderline high 190-219 mg/dL, High >219 mg/dL, Very high Secondary prevention optimal non HDL Cholesterol levels are recommended to be <100 mg/dL Performed By: #### 2 4323-8 #### [facility] CLIA [id number] [address] [place] [address] [place] T CHOL/HDL RATIO NF 3.42 mg/dL Normal <5.10 [facility] Comment on above: Order Comment: Speci men Type: BLOOD SPECIMEN Ordering Facility: [facility] Address: [address] [place] [address] Performed By: #### 2 4323-8 #### [facility] CLIA [id number] [address] [place] [address] OF [facility] TRIGLYCERIDES, NF 165 mg/dL High <150 [facility] Comment on above: Order Comment: Speci men Type: BLOOD SPECIMEN Ordering Facility: [facility] Address: [address] [place] [address] Result Comment: <150 mg/dL, Normal 150-199 mg/dL, Borderline high 200-499 mg/dL, High >499 mg/dL, Very high Performed By: #### 2 4323-8 #### [facility] CLIA [id number] [address] [place] [address] VLDL CHOLESTEROL, NF 28 mg/dL Normal <30 [facility] Comment on above: Order Comment: Speci men Type: BLOOD SPECIMEN Ordering Facility: [facility] Address: [address] [place] [address] Performed By: #### 2 4323-8 #### [facility] CLIA [id number] [address] [place] [address] [place] MRI HIP WO/W IVCON LTon - MRI HIP WO/W IVCON LT * * *Final Report* * * DATE OF EXAM: Sep 14 2024 4:00PM WRM [id number] - MRI HIP WO/W IVCON LT / PROCEDURE REASON: multiple diagnoses * * * * Physician Interpretation * * * * MRI LEFT HIP WITH WITHOUT CONTRAST HISTORY: Malignant neoplasm of prostate metastatic to bone (HCC) Malignant neoplasm of prostate metastatic to bone (HCC) Bilateral hip pain Bilateral hip pain COMPARISON: 08/27/2024 x-rays and 07/07/2024 PET/CT TECHNIQUE: MR sequences performed prior to and following administration of 8 ml of Elucirem IV. RESULT: There is a large supra-acetabular insufficiency fracture of the left iliac bone. There is mild extension into the left acetabulum anteriorly. This accounts for the increased uptake on the PSMA PET-CT. There is no underlying osseous lesion identified. Additionally, noted is a incomplete insufficiency fracture of the right supra-acetabular iliac bone. There are sacral insufficiency fractures noted bilaterally, larger on the left than the right. There is severe degenerative disc disease in the visualized lower lumbar spine. No significant degenerative change identified involving the bilateral hips. No joint effusion or synovitis. Pubic symphysis is maintained. Mild degenerative change at the sacroiliac joints. Muscle bulk and signal intensity around the pelvis and bilateral hips is within normal limits. There is a penile implant noted with associated reservoir in the right inguinal region.. IMPRESSION: Large left supra-acetabular left iliac bone insufficiency fracture which accounts for uptake on the PSMA PET-CT. No underlying osseous lesion to suggest osseous metastatic disease. Additional smaller insufficiency fractures involving the right supra-acetabular right iliac bone and bilateral sacral ala. Header Operator: CATRACHO Transcribe Date/Time: Sep 15 2024 9:26A Dictated by : PATRICIA CHOI MD This examination was interpreted and the report reviewed and electronically signed by: PATRICIA CHOI MD on Sep 15 2024 9:40AM EST [id number] Normal [facility] CNPJania 09-10-2024 CNPN Telephone (HEMAWS) -- LUIS ANGEL AGUILA ([id number]) 1955 M Date Time Provider Department 09/10/24 FRANK GRACE During your visit today, we recorded the following information about you: Frank Grace RN 09/10/2024 2:07 PM Signed ORAL ANTI-CANCER AGENTS EDUCATION patient called today for oral medication education of xtandi for Prostate Cancer Anticipated/Scheduled start date: TBD READINESS TO LEARN Cognitive Ability: Alert and oriented Motivation to Learn: Interested Family Support: Unable to assess - Family not present Instruction Provided to: Patient Patient learns best by: Multiple Methods Factors affecting learning: None Physical limitation affecting learning: None CAMPOS ASSESSMENT: 1.) Verified that patient knows that the oral agents are for cancer and are taken by mouth. Yes 2.) Medication review completed during visit. Yes 3.) Patient is able to swallow pills. Yes 4.) Patient is able to read the drug label/information. Yes 5.) Patient is able to open the medication bottles and packages. Yes 6.) Has patient taken other pills for cancer? No 7.) Is patient experiencing any symptoms that would affect their ability to keep down pills, for example nausea or vomiting? No 8.) Verified that patient understands prescription delivery, benefit investigation and refill process. Yes DRUG-SPECIFIC EDUCATION: 1.) Verified patient knows the drug name. Yes 2.) Verified patient understands the dose and schedule of oral anti cancer agent. Yes 3.) Verified patient knows what to do if a medication dose is missed. Yes 4.) Verified patient understands where to store the drug. Yes 5.) Verified patient understands potential side effects and how to manage them. Yes 6.)Verified patient understands handling precautions of oral anti cancer agent. Yes 7.) Verified patient was given written instructions and understands when and whom to call with questions. Yes 8.) Verified patient understands where and how to return drug. Yes 9.) Verified patient received drug specific adult education handout and neutropenic wallet card Yes EVALUATE: The patient demonstrated an understanding of all the above education using the teach-back method. Yes Instructed to call us with any questions, concerns, and/or unresolved symptoms. Will continue to follow up and provide reinforcement of teaching topics as needed. BRYSON Olson Amber, RN 09/10/2024 2:07 PM Signed Patient will receive Xtandi on Friday. Please advise when he can start and the follow-up plan. Patient has an OV with Dr. Jung on 09/14. BRYSON Olson Paul A, DO 09/13/2024 1:06 PM Signed I'll review with him tomorrow. DO Sanjay Wesley Amber, RN 09/13/2024 3:49 PM Signed Patient informed of Dr. Jung's response, stated understanding. Frank Grace RN Allergies As of Date: 09/10/2024 Noted Allergy Reaction MORPHINE 10/25/2022 2 - Rash 9 - Itching PREDNISONE 10/25/2022 1 - Mental Status Change Date Reviewed: 08/27/2024 Reviewed by: Amna Sher Ma, MA - Fully Assessed Reason for Visit: Undercollar Baster - Other [2321] Cmt: Oral Anti-Cancer Agents Education Prescriptions as of 09/13/2024 - atenolol (TENORMIN) 50 mg tablet Take one tablet daily along with 25 mg tablet to equal 75 mg daily - atorvastatin (LIPITOR) 40 mg tablet Take 1 tablet by mouth daily at bedtime. For cholesterol. - lisinopril (ZESTRIL) 40 mg tablet Take 1 tablet by mouth once daily. - omeprazole (PRILOSEC) 40 mg capsule Take 1 capsule by mouth two times a day. - pregabalin (LYRICA) 100 mg capsule Take 1 capsule by mouth three times a day for 30 days. - enzalutamide (XTANDI) 80 mg tablet Take 2 tablets (160 mg) by mouth once daily. - cyclobenzaprine (FLEXERIL) 10 mg tablet Take 1 tablet by mouth as directed. 1/2 to 1 tablet po qhs as needed for spasm - albuterol HFA (VENTOLIN HFA) 90 mcg/actuation inhaler Inhale 2 Puffs as instructed every 4 hours as needed for wheezing/shortness of breath. - tiotropium-olodaterol (STIOLTO RESPIMAT) 2.5-2.5 mcg/actuation inhaler Inhale 2 Puffs as instructed once daily. - famotidine (PEPCID) 40 mg tablet Take 40 mg by mouth once daily. - acetaminophen (TYLENOL EXTRA STRENGTH) 500 mg tablet Take 1,000 mg by mouth every 8 hours as needed. - aspirin, enteric coated (ASPIRIN, ENTERIC COATED) 81 mg EC tablet Take 81 mg by mouth once daily. - docusate sodium (STOOL SOFTENER) 100 mg capsule Take 100 mg by mouth twice daily. - cholecalciferol (VITAMIN D-3) 50 mcg (2,000 unit) tablet Take 2,000 Units by mouth once daily. - beta-carotene,A,-vits C,E/mins (OCUVITE ORAL) Take 1 tablet by mouth once daily. - calcium carbonate (CALCIUM 600 ORAL) Take 1 tablet by mouth once daily. - Multivitamin capsule Take 1 capsule by mouth once daily. Problem List As Of Date 09/10/2024 Noted Resolved Small bowel obstruction (HCC (more content not included)... Normal [facility] Basic metabolic 2000 panelon 09-03-2024 Anion gap [Moles/Vol] 12 mmol/L Normal 8-15 [facility] Comment on above: Order Comment: Speci men Type: BLOOD SPECIMEN Ordering Facility: [facility] Address: [address] [place] [address] Performed By: #### 2 4321-2 #### [facility] [id number] [address] [place] [address] [place] Calcium [Mass/Vol] 10.0 mg/dL Normal 8.5-10.2 [facility] Comment on above: Order Comment: Speci men Type: BLOOD SPECIMEN Ordering Facility: [facility] Address: [address] [place] [address] Performed By: #### 2 4321-2 #### [facility] CLIA [id number] [address] [place] [address] [place] Chloride [Moles/Vol] 97 mmol/L Low 98-107 [facility] Comment on above: Order Comment: Speci men Type: BLOOD SPECIMEN Ordering Facility: [facility] Address: [address] [place] [address] Performed By: #### 2 4321-2 #### [facility] CLIA [id number] [address] [place] [address] [place] CO2 [Moles/Vol] 21 mmol/L Low 22-30 [facility] Comment on above: Order Comment: Speci men Type: BLOOD SPECIMEN Ordering Facility: [facility] Address: [address] [place] [address] Performed By: #### 2 4321-2 #### [facility] [id number] [address] [place] [address] [place] Creatinine [Mass/Vol] 1.01 mg/dL Normal 0.73-1.22 [facility] Comment on above: Order Comment: Speci men Type: BLOOD SPECIMEN Ordering Facility: [facility] Address: [address] [place] [address] Performed By: #### 2 4321-2 #### [facility] [id number] [address] [place] [address] [place] Creatinine and Glomerular filtration rate.predicted panel (S/P/Bld) 80 mL/min/1.73m??? Normal >=60 [facility] Comment on above: Order Comment: Speci men Type: BLOOD SPECIMEN Ordering Facility: [facility] Address: [address] [place] [address] Result Comment: Rizwana mated Glomerular Filtration Rate (eGFR) is calculated using the 2020 CKD-EPI creatinine equation. This equation utilizes serum creatinine, sex, and age as parameters. The creatinine assay has traceable calibration to isotope dilution-mass spectrometry. Refer to KDIGO guidelines for clinical interpretation. In patients with unstable renal function, e.g. those with acute kidney injury, the eGFR may not accurately reflect actual GFR. Performed By: #### 2 4321-2 #### [facility] [id number] [address] [place] [address] [place] Glucose [Mass/Vol] 121 mg/dL High 74-99 [facility] Comment on above: Order Comment: Speci men Type: BLOOD SPECIMEN Ordering Facility: [facility] Address: [address] [place] [address] Result Comment: The [place] Diabetes Association (ADA) provides guidance for cutoff values for fasting glucose and random glucose. The ADA defines fasting as no caloric intake for at least 8 hours. Fasting plasma glucose results between 100 to 125 mg/dL indicate increased risk for diabetes (prediabetes). Fasting plasma glucose results greater than or equal to 126 mg/dL meet the criteria for diagnosis of diabetes. In the absence of unequivocal hyperglycemia, results should be confirmed by repeat testing. In a patient with classic symptoms of hyperglycemia or hyperglycemic crisis, random plasma glucose results greater than or equal to 200 mg/dL meet the criteria for diagnosis of diabetes. Reference: Standards of Medical Care in Diabetes 2016, [place] Diabetes Association. Diabetes Care. 2016.39(Suppl 1). Performed By: #### 2 4321-2 #### [facility] [id number] [address] [place] [address] [place] Potassium [Moles/Vol] 4.7 mmol/L Normal 3.7-5.1 [facility] Comment on above: Order Comment: Dion hawk Type: BLOOD SPECIMEN Ordering Facility: [facility] Address: [address] [place] [address] Performed By: #### 2 4321-2 #### [facility] [id number] [address] [place] [address] [place] Sodium [Moles/Vol] 130 mmol/L Low 136-144 [facility] Comment on above: Order Comment: Dion hawk Type: BLOOD SPECIMEN [facility] [facility] Address: [address] [place] [address] Performed By: #### 2 4321-2 #### [facility] [id number] [address] [place] [address] [place] Urea nitrogen [Mass/Vol] 19 mg/dL Normal 9-24 [facility] Comment on above: Order Comment: Dion hawk Type: BLOOD SPECIMEN Ordering Facility: [facility] Address: [address] [place] [address] Performed By: #### 2 4321-2 #### [facility] CLIA [id number] [address] [place] [address] [place] Basic metabolic 2000 panelon 08-27-2024 Anion gap [Moles/Vol] 12 mmol/L Normal 8-15 [facility] Comment on above: Order Comment: Speci men Type: BLOOD SPECIMEN Ordering Facility: [facility] Address: [address] [place] [address] Performed By: #### 2 4321-2 #### [facility] CLIA [id number] [address] [place] [address] [place] Calcium [Mass/Vol] 9.8 mg/dL Normal 8.5-10.2 [facility] Comment on above: Order Comment: Speci men Type: BLOOD SPECIMEN Ordering Facility: [facility] Address: [address] [place] [address] Performed By: #### 2 4321-2 #### [facility] CLIA [id number] [address] [place] [address] [place] Chloride [Moles/Vol] 100 mmol/L Normal 98-107 [facility] Comment on above: Order Comment: Speci men Type: BLOOD SPECIMEN Ordering Facility: [facility] Address: [address] [place] [address] Performed By: #### 2 4321-2 #### [facility] CLIA [id number] [address] [place] [address] [place] CO2 [Moles/Vol] 20 mmol/L Low 22-30 [facility] Comment on above: Order Comment: Speci men Type: BLOOD SPECIMEN Ordering Facility: [facility] Address: [address] [place] [address] Performed By: #### 2 4321-2 #### [facility] CLIA [id number] [address] [place] [address] [place] Creatinine [Mass/Vol] 1.06 mg/dL Normal 0.73-1.22 [facility] Comment on above: Order Comment: Speci men Type: BLOOD SPECIMEN Ordering Facility: [facility] Address: [address] [place] [address] Performed By: #### 2 4321-2 #### [facility] [id number] [address] [place] [address] [place] Creatinine and Glomerular filtration rate.predicted panel (S/P/Bld) 75 mL/min/1.73m??? Normal >=60 [facility] Comment on above: Order Comment: Dion hawk Type: BLOOD SPECIMEN Ordering Facility: [facility] Address: [address] [place] [address] Result Comment: Rizwana mated Glomerular Filtration Rate (eGFR) is calculated using the 2020 CKD-EPI creatinine equation. This equation utilizes serum creatinine, sex, and age as parameters. The creatinine assay has traceable calibration to isotope dilution-mass spectrometry. Refer to KDIGO guidelines for clinical interpretation. In patients with unstable renal function, e.g. those with acute kidney injury, the eGFR may not accurately reflect actual GFR. Performed By: #### 2 4321-2 #### [facility] [id number] [address] [place] [address] [place] Glucose [Mass/Vol] 88 mg/dL Normal 74-99 [facility] Comment on above: Order Comment: Dion hawk Type: BLOOD SPECIMEN Ordering Facility: [facility] Address: [address] [place] [address] Result Comment: The [place] Diabetes [employer] (ADA) provides guidance for cutoff values for fasting glucose and random glucose. The ADA defines fasting as no caloric intake for at least 8 hours. Fasting plasma glucose results between 100 to 125 mg/dL indicate increased risk for diabetes (prediabetes). Fasting plasma glucose results greater than or equal to 126 mg/dL meet the criteria for diagnosis of diabetes. In the absence of unequivocal hyperglycemia, results should be confirmed by repeat testing. In a patient with classic symptoms of hyperglycemia or hyperglycemic crisis, random plasma glucose results greater than or equal to 200 mg/dL meet the criteria for diagnosis of diabetes. Reference: Standards of Medical Care in Diabetes 2016, [place] Diabetes [employer]. Diabetes Care. 2016.39(Suppl 1). Performed By: #### 2 4321-2 #### [facility] CLIA [id number] [address] [place] [address] [place] Potassium [Moles/Vol] 5.2 mmol/L High 3.7-5.1 [facility] Comment on above: Order Comment: Speci men Type: BLOOD SPECIMEN Ordering Facility: [facility] Address: [address] [place] [address] Performed By: #### 2 4321-2 #### [facility] CLIA [id number] [address] [place] [address] [place] Sodium [Moles/Vol] 132 mmol/L Low 136-144 [facility] Comment on above: Order Comment: Speci men Type: BLOOD SPECIMEN Ordering Facility: [facility] Address: [address] [place] [address] Performed By: #### 2 4321-2 #### [facility] CLIA [id number] [address] [place] [address] [place] Urea nitrogen [Mass/Vol] 19 mg/dL Normal 9-24 [facility] Comment on above: Order Comment: Speci men Type: BLOOD SPECIMEN Ordering Facility: [facility] Address: [address] [place] [address] Performed By: #### 2 4321-2 #### [facility] [id number] [address] [place] [address] [place] CNOVSPon 08-27-2024 CNOVSP Visit (SP) Office (H EMAWS) -- LUIS ANGEL AGUILA ([id number]) 1955 M Date Time Provider Department 08/27/24 3:30 PM MONICA JUNG During your visit today, we recorded the following information about you: Temperature Pulse Blood pressure Weight 97.7 degrees 52/minute 109/70 80.5 kg Monica Jung, 08/27/2024 5:50 PM Signed Oncologic problem(s): 1) Castrate sensitive prostate cancer. HPI: The patient is a 69-year-old male with past medical history significant for hyperlipidemia, hypertension, moderate COPD, GERD, previous cervical spine surgery, chronic low back pain and prostate cancer. Developed gross hematuria. PSA 50s. RP with penile implant. Bladder tear about a month later. PET--recurrence in prostate bed. 06/2021 4 weeks RT in [place] with GnRH agonist treatment (Lupron). Stopped due to side effects--Severe diarrhea and n/v. PSA undetectable 06/2022. Presumably from Lupron. CT A/P 11/18/2022: IMPRESSION: 1. Postoperative ileus versus changes of early small bowel obstruction within the right pelvis as discussed above. Short-term follow-up suggested. 2. Changes of recent prostatectomy and penile implant. There is a 6.0 x 2.7 x 9.5 cm nonencapsulated postoperative fluid collection within the right lower quadrant subcutaneous fat adjacent to the penile pump. 3. Mild free fluid. 4. Sacral insufficiency fractures. Medically managed for SBO. Saw Dr. Ariza at 11/10/2023: -Assessment/Plan I personally saw patient and counselled all visit on his diagnosis, kamilla history and coordination of his care. This is a 68 y.o. male man known with LN+ PC on ADT (d/c zytiga/pred and apa s/t AEs) with T > 50 and low PSA and negative recent PSMA (June 2022). He had incomplete salvage XRT but aborted s/t bowel tox. He is discontinuing ADT per pt preference - understands R/A of this decision. He was found with some lung abn, but PET was negative and bronch results pending. He is smoker. Will call him in few weeks to Fup on bronch results We discussed the clinical significance of diagnosis, goals of care and treatment plan in detail. Thank you for the opportunity to be involved in the care of Luis Angel Aguila. Please do not hesitate to reach out with any questions. Thank you. Path was negative. Per recent note from [facility] -Follow up sp EGD with biopsies 11/26/2023. 1 cm circumferential salmon colored mucosa seen at the GE junction at the time of EGD, consistent with short segment Oliver's esophagus. 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 We discussed the etiology of Oliver's and need for continued endoscopic surveillance due to risk of malignancy. Recommend patient continue on his PPI/H2 nabil, repeat EGD in 5 years for surveillance. OV 07/05/2024: Had a PSMA PET scan done at . 04/2024 Impression: 1. Status post prostatectomy without focally increased Ga68 PSMA expression within the prostate gland to suggest local recurrence. 2. Mild PSMA-avid sub-centimeter aortocaval lymph node, nereida metastasis cannot be excluded. Production Weigher images sent to PACS for review. 3. Mild PSMA expression within the lung nodule along right heart border which was not FDG avid on PET dated 10/01/2023, non-specific. Continued attention on follow-up imaging is recommended. 4. Mild Ga68 PSMA-avid within right iliac bone lesion, although not typical for prosthetic bone metastasis, continued attention on follow-up imaging is recommended. I'm not doing anymore of those shots. Hot flashes resolved. No symptoms of LUTS. LBP significantly improved after epidural injection. 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 OV 07/12/2024: Had repeat PET scan. Has occasional hip pain previously relieved with cortisone injections. Still working 12 to 14 hours a day. No pain getting in and out of the truck. Current therapy: 1) Radiation. Completed 07/29/2024. 2) Eligard. Presents for ongoing oncologic management. Interim history: Worsening b/l hip pain. L>>R. Can walk a while, but hurts badly enough has to sit down. In groin and down lateral thigh. 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 Normal [facility] CNPNon 08-27-2024 CNPN Telephone (HEMAWS) -- AGUILALUIS ANGEL ([id number]) 1955 M Date Time Provider Department 08/27/24 MONICA JUNG During your visit today, we recorded the following information about you: Monica Jung DO 08/27/2024 1:01 PM Signed Can let him know kidney function is better but potassium is elevated. Blood pressure lower. Hold lisinopril for now. Monitor blood pressure at home daily. Call if SBP goes over 130 and/or SBP > 90. Repeat BMP in a week. DO Sage Wesley Kara, LPN 08/27/2024 1:30 PM Signed notified. Voices understanding. Will need one week lab apt. JUAN MANUEL Alfonso Naomi 08/27/2024 1:44 PM Signed Spoke w pt and he is scheduled for lab next week . Belen Staley Allergies As of Date: 08/27/2024 Noted Allergy Reaction MORPHINE 10/25/2022 2 - Rash 9 - Itching PREDNISONE 10/25/2022 1 - Mental Status Change Date Reviewed: 08/27/2024 Reviewed by: Amna Sher Ma, RIGOBERTO - Fully Assessed Reason for Visit: Results [95] Prescriptions as of 08/27/2024 - oxyCODONE IR (ROXICODONE) 5 mg immediate release tablet Take 1 tablet by mouth every 6 hours as needed for pain for up to 7 days. FOR PAIN. - enzalutamide (XTANDI) 80 mg tablet Take 2 tablets (160 mg) by mouth once daily. - cyclobenzaprine (FLEXERIL) 10 mg tablet Take 1 tablet by mouth as directed. 1/2 to 1 tablet po qhs as needed for spasm - atenolol (TENORMIN) 50 mg tablet Take one tablet daily along with 25 mg tablet to equal 75 mg daily - atorvastatin (LIPITOR) 40 mg tablet Take 1 tablet by mouth daily at bedtime. For cholesterol. - lisinopril (ZESTRIL) 40 mg tablet Take 1 tablet by mouth once daily. - pregabalin (LYRICA) 100 mg capsule Take 1 capsule by mouth three times a day for 180 days. - albuterol HFA (VENTOLIN HFA) 90 mcg/actuation inhaler Inhale 2 Puffs as instructed every 4 hours as needed for wheezing/shortness of breath. - omeprazole (PRILOSEC) 40 mg capsule Take 1 capsule by mouth two times a day. - tiotropium-olodaterol (STIOLTO RESPIMAT) 2.5-2.5 mcg/actuation inhaler Inhale 2 Puffs as instructed once daily. - famotidine (PEPCID) 40 mg tablet Take 40 mg by mouth once daily. - acetaminophen (TYLENOL EXTRA STRENGTH) 500 mg tablet Take 1,000 mg by mouth every 8 hours as needed. - aspirin, enteric coated (ASPIRIN, ENTERIC COATED) 81 mg EC tablet Take 81 mg by mouth once daily. - docusate sodium (STOOL SOFTENER) 100 mg capsule Take 100 mg by mouth twice daily. - cholecalciferol (VITAMIN D-3) 50 mcg (2,000 unit) tablet Take 2,000 Units by mouth once daily. - beta-carotene,A,-vits C,E/mins (OCUVITE ORAL) Take 1 tablet by mouth once daily. - calcium carbonate (CALCIUM 600 ORAL) Take 1 tablet by mouth once daily. - Multivitamin capsule Take 1 capsule by mouth once daily. Problem List As Of Date 08/27/2024 Noted Resolved Small bowel obstruction (HCC) [K56.609] 11/19/2022 GI bleed [K92.2] 11/19/2022 Nicotine use disorder, F17.2 [F17.200] 11/20/2022 Ileus (HCC) [K56.7] 11/20/2022 Screening for colon cancer [Z12.11] 12/12/2022 Prostate cancer metastatic to intraabdominal ly*01/31/2023 Osteoarthritis of multiple joints [M15.9] 01/31/2023 Mixed hyperlipidemia [E78.2] 01/31/2023 GERD (gastroesophageal reflux disease) [K21.9] 01/31/2023 Essential hypertension [I10] 01/31/2023 COPD (chronic obstructive pulmonary disease) (H*01/31/2023 Malignant neoplasm of prostate metastatic to rekha*07/13/2024 Encounter Status:Closed by BELEN STALEY on 08/27/24 Normal [facility] XR HIP GORDON 5V PEL+ AP/LAT EA HIPon 08-27-2024 XR HIP GORDON 5V PEL+ AP/LAT EA HIP * * *Final Report* * * DATE OF EXAM: Aug 27 2024 12:22PM [id number] - XR HIP GORDON 5V PEL+ AP/LAT EA HIP / PROCEDURE REASON: multiple diagnoses * * * * Physician Interpretation * * * * PROCEDURE: Pelvis and bilateral hips INDICATION: Malignant neoplasm of prostate metastatic to bone (HCC) Malignant neoplasm of prostate metastatic to bone (HCC) Bilateral hip pain.PT STATES BILAT HIP PAIN HISTORY OF CANCER TECHNIQUE: XR HIP GORDON 5V PEL+ AP/LAT EA HIP COMPARISON: 05/13/2024, 03/17/2023 and PET/CT 07/07/2024 FINDINGS: Permeative appearance throughout the left acetabulum corresponding to abnormal activity in recent pet CT and most consistent with metastasis. The appearance is slightly more progressive compared to the recent pelvis study. Similar but less in degree changes are seen in the right superior acetabulum concerning for metastasis as well. No fracture or dislocation. Mild bilateral hip osteoarthrosis. Advanced degenerative disc disease in the lower lumbar spine. IMPRESSION: Bilateral acetabular lesions suggestive of metastases, left greater than right. Header Operator: PSCB Transcribe Date/Time: Sep 01 2024 8:34A Dictated by : ESTEFANIA CORTES MD This examination was interpreted and the report reviewed and electronically signed by: ESTEFANIA CORTES MD on Sep 01 2024 8:39AM EST [id number] Normal [facility] US KIDNEY/BLADDERon 08-24-19 US KIDNEY/BLADDER * * *Final Report* * * DATE OF EXAM: Aug 23 2024 1:38PM [facility] 1055 - US KIDNEY/BLADDER / PROCEDURE REASON: multiple diagnoses * * * * Physician Interpretation * * * * EXAMINATION: RENAL ULTRASOUND CLINICAL HISTORY: Acute kidney injury TECHNIQUE: Sonography of the kidneys and urinary bladder was performed. Images were obtained and stored in a permanent archive. MQ: UR_1 COMPARISON: None RESULT: Right Kidney: -Renal length: 9.4 cm -Parenchyma: Normal parenchymal echogenicity. Normal parenchymal thickness. -Collecting system: No hydronephrosis. -Calculus: No echogenic, shadowing calculus. -Lesion: 1.4 cm mid to upper pole cyst Left Kidney: -Renal length: 10.5 cm -Parenchyma: Normal parenchymal echogenicity. Normal parenchymal thickness. -Collecting system: No hydronephrosis. -Calculus: No echogenic, shadowing calculus. -Lesion: 1.9 cm mid to upper pole cyst Bladder: Normal sonographic appearance. IMPRESSION: No hydronephrosis. Header Operator: [facility]ITAL[facility] Transcribe Date/Time: Aug 25 2024 6:00P Dictated by : ED RAMÍREZ MD This examination was interpreted and the report reviewed and electronically signed by: ED RAMÍREZ MD on Aug 25 2024 6:01PM EST [id number] Normal [facility] CBC W Auto Differential pane l (Bld)on 08-19-2024 Basophils (Bld) [#/Vol] 0.06 10*3/uL Normal <0.11 [facility] Comment on above: Order Comment: Speci men Type: BLOOD SPECIMEN Ordering Facility: [facility] Address: [address] [place] [address] Performed By: #### 2 4321-2 #### [facility] CLIA [id number] [address] [place] [address] [place] Basophils/100 WBC (Bld) 0.7 % Normal [facility] Comment on above: Order Comment: Speci men Type: BLOOD SPECIMEN Ordering Facility: [facility] Address: [address] [place] [address] Performed By: #### 2 4321-2 #### [facility] CLIA [id number] [address] [place] [address] [place] Differential cell count method Nom (Bld) Auto Normal [facility] Comment on above: Order Comment: Speci men Type: BLOOD SPECIMEN Ordering Facility: [facility] Address: [address] [place] [address] Performed By: #### 2 4321-2 #### [facility] CLIA [id number] [address] [place] [address] [place] Eosinophils (Bld) [#/Vol] 0.56 10*3/uL High <0.46 [facility] Comment on above: Order Comment: Speci men Type: BLOOD SPECIMEN Ordering Facility: [facility] Address: [address] [place] [address] Performed By: #### 2 4321-2 #### [facility] CLIA [id number] [address] [place] [address] [place] Eosinophils/100 WBC (Bld) 6.5 % Normal [facility] Comment on above: Order Comment: Speci men Type: BLOOD SPECIMEN Ordering Facility: [facility] Address: [address] [place] [address] Performed By: #### 2 4321-2 #### [facility] CLIA [id number] [address] [place] [address] [place] Erythrocyte distribution width (RBC) [Ratio] 13.6 % Normal 11.5-15.0 [facility] Comment on above: Order Comment: Speci men Type: BLOOD SPECIMEN Ordering Facility: [facility] Address: [address] [place] [address] Performed By: #### 2 4321-2 #### [facility] CLIA [id number] [address] [place] [address] [place] Hematocrit (Bld) [Volume fraction] 37.9 % Low 39.0-51.0 [facility] Comment on above: Order Comment: Speci men Type: BLOOD SPECIMEN Ordering Facility: [facility] Address: [address] [place] [address] Performed By: #### 2 4321-2 #### [facility] CLIA [id number] [address] [place] [address] [place] Hemoglobin (Bld) [Mass/Vol] 12.7 g/dL Low 13.0-17.0 [facility] Comment on above: Order Comment: Speci men Type: BLOOD SPECIMEN Ordering Facility: [facility] Address: [address] [place] [address] Performed By: #### 2 4321-2 #### [facility] CLIA [id number] [address] [place] [address] [place] Immature granulocytes (Bld) [#/Vol] 0.06 10*3/uL Normal <0.10 [facility] Comment on above: Order Comment: Speci men Type: BLOOD SPECIMEN Ordering Facility: [facility] Address: [address] [place] [address] Performed By: #### 2 4321-2 #### [facility] CLIA [id number] [address] [place] [address] [place] Immature granulocytes/100 WBC (Bld) 0.7 % Normal [facility] Comment on above: Order Comment: Speci men Type: BLOOD SPECIMEN Ordering Facility: [facility] Address: [address] [place] [address] Performed By: #### 2 4321-2 #### [facility] CLIA [id number] [address] [place] [address] [place] Lymphocytes (Bld) [#/Vol] 1.64 10*3/uL Normal 1.00-4.00 [facility] Comment on above: Order Comment: Speci men Type: BLOOD SPECIMEN Ordering Facility: [facility] Address: [address] [place] [address] Performed By: #### 2 4321-2 #### [facility] CLIA [id number] [address] [place] [address] [place] Lymphocytes/100 WBC (Bld) 18.9 % Normal [facility] Comment on above: Order Comment: Speci men Type: BLOOD SPECIMEN Ordering Facility: [facility] Address: [address] [place] [address] Performed By: #### 2 4321-2 #### [facility] CLIA [id number] [address] [place] [address] [place] MCH (RBC) [Entitic mass] 32.2 pg Normal 26.0-34.0 [facility] Comment on above: Order Comment: Speci men Type: BLOOD SPECIMEN Ordering Facility: [facility] Address: [address] [place] [address] Performed By: #### 2 4321-2 #### [facility] [id number] [address] [place] [address] [place] MCHC (RBC) [Mass/Vol] 33.5 g/dL Normal 30.5-36.0 [facility] Comment on above: Order Comment: Speci men Type: BLOOD SPECIMEN Ordering Facility: [facility] Address: [address] [place] [address] Performed By: #### 2 4321-2 #### [facility] [id number] [address] [place] [address] [place] MCV (RBC) [Entitic vol] 96.2 fL Normal 80.0-100.0 [facility] Comment on above: Order Comment: Speci men Type: BLOOD SPECIMEN Ordering Facility: [facility] Address: [address] [place] [address] Performed By: #### 2 4321-2 #### [facility] CLIA [id number] [address] [place] [address] [place] Monocytes (Bld) [#/Vol] 1.27 10*3/uL High <0.87 [facility] Comment on above: Order Comment: Speci men Type: BLOOD SPECIMEN Ordering Facility: [facility] Address: [address] [place] [address] Performed By: #### 2 4321-2 #### [facility] CLIA [id number] [address] [place] [address] [place] Monocytes/100 WBC (Bld) 14.6 % Normal [facility] Comment on above: Order Comment: Speci men Type: BLOOD SPECIMEN Ordering Facility: [facility] Address: [address] [place] [address] Performed By: #### 2 4321-2 #### [facility] CLIA [id number] [address] [place] [address] [place] Neutrophils (Bld) [#/Vol] 5.08 10*3/uL Normal 1.45-7.50 [facility] Comment on above: Order Comment: Speci men Type: BLOOD SPECIMEN Ordering Facility: [facility] Address: [address] [place] [address] Performed By: #### 2 4321-2 #### [facility] CLIA [id number] [address] [place] [address] [place] Neutrophils/100 WBC (Bld) 58.6 % Normal [facility] Comment on above: Order Comment: Speci men Type: BLOOD SPECIMEN Ordering Facility: [facility] Address: [address] [place] [address] Performed By: #### 2 4321-2 #### [facility] CLIA [id number] [address] [place] [address] [place] Nucleated RBC (Bld) [#/Vol] 10*3/uL Normal <0.01 [facility] Comment on above: Order Comment: Speci men Type: BLOOD SPECIMEN Ordering Facility: [facility] Address: [address] [place], [place] [id number] Performed By: #### 2 4321-2 #### [facility] CLIA [id number] [address] [place] [address] [place] Nucleated RBC/100 WBC (Bld) [Ratio] 0.0 /100 WBC Normal [facility] Comment on above: Order Comment: Speci men Type: BLOOD SPECIMEN Ordering Facility: [facility] Address: [address] [place], [place] [id number] Performed By: #### 2 4321-2 #### [facility] CLIA [id number] [address] [place] [address] [place] Platelet mean volume (Bld) [Entitic vol] 9.1 fL Normal 9.0-12.7 [facility] Comment on above: Order Comment: Speci men Type: BLOOD SPECIMEN Ordering Facility: [facility] Address: [address] [place] [address] Performed By: #### 2 4321-2 #### [facility] CLIA [id number] [address] [place] [address] [place] Platelets (Bld) [#/Vol] 256 10*3/uL Normal 150-400 [facility] Comment on above: Order Comment: Speci men Type: BLOOD SPECIMEN Ordering Facility: [facility] Address: [address] [place] [address] Performed By: #### 2 4321-2 #### [facility] CLIA [id number] [address] [place] [address] [place] RBC (Bld) [#/Vol] 3.94 10*6/uL Low 4.20-6.00 [facility] Comment on above: Order Comment: Speci men Type: BLOOD SPECIMEN Ordering Facility: [facility] Address: [address] [place] [address] Performed By: #### 2 4321-2 #### [facility] CLIA [id number] [address] [place] [address] [place] WBC (Bld) [#/Vol] 8.67 10*3/uL Normal 3.70-11.00 [facility] Comment on above: Order Comment: Speci men Type: BLOOD SPECIMEN Ordering Facility: [facility] Address: [facility] [place] [address] Performed By: #### 2 4321-2 #### [facility] CLIA [id number] [address] [place], [place] [id number] [place] CNPNon 08-19-2024 CNPN Telephone (HEMAWS) -- LUIS ANGEL AGUILA ([id number]) 1955 M Date Time Provider Department 08/19/24 MONICA JUNG During your visit today, we recorded the following information about you: Monica Jung DO 08/19/2024 4:24 PM Signed Serum creatinine elevated. Currently receiving radiation to the prostate. Please schedule for ultrasound kidneys and bladder to rule out obstruction. DO Geovanni Wesley Pamela S, LPN 08/19/2024 4:40 PM Signed Serum creatinine elevated. PSS Please schedule for ultrasound kidneys and bladder to rule out obstruction. Order is in . Pt would like for you to contact his Silvia to make those arrangements. JUAN MANUEL Booker Naomi 08/20/2024 9:44 AM Signed Spoke w pt and US has been scheduled for 08/23. 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 1/2 to 1 tablet po qhs as needed for spasm - atenolol (TENORMIN) 50 mg tablet Take one tablet daily along with 25 mg tablet to equal 75 mg daily - atorvastatin (LIPITOR) 40 mg tablet Take 1 tablet by mouth daily at bedtime. For cholesterol. - lisinopril (ZESTRIL) 40 mg tablet Take 1 tablet by mouth once daily. - pregabalin (LYRICA) 100 mg capsule Take 1 capsule by mouth three times a day for 180 days. - albuterol HFA (VENTOLIN HFA) 90 mcg/actuation inhaler Inhale 2 Puffs as instructed every 4 hours as needed for wheezing/shortness of breath. - omeprazole (PRILOSEC) 40 mg capsule Take 1 capsule by mouth two times a day. - tiotropium-olodaterol (STIOLTO RESPIMAT) 2.5-2.5 mcg/actuation inhaler Inhale 2 Puffs as instructed once daily. - famotidine (PEPCID) 40 mg tablet Take 40 mg by mouth once daily. - acetaminophen (TYLENOL EXTRA STRENGTH) 500 mg tablet Take 1,000 mg by mouth every 8 hours as needed. - aspirin, enteric coated (ASPIRIN, ENTERIC COATED) 81 mg EC tablet Take 81 mg by mouth once daily. - docusate sodium (STOOL SOFTENER) 100 mg capsule Take 100 mg by mouth twice daily. - cholecalciferol (VITAMIN D-3) 50 mcg (2,000 unit) tablet Take 2,000 Units by mouth once daily. - beta-carotene,A,-vits C,E/mins (OCUVITE ORAL) Take 1 tablet by mouth once daily. - calcium carbonate (CALCIUM 600 ORAL) Take 1 tablet by mouth once daily. - Multivitamin capsule Take 1 capsule by mouth once daily. Problem List As Of Date 08/19/2024 Noted Resolved Small bowel obstruction (HCC) [K56.609] 11/19/2022 GI bleed [K92.2] 11/19/2022 Nicotine use disorder, F17.2 [F17.200] 11/20/2022 Ileus (HCC) [K56.7] 11/20/2022 Screening for colon cancer [Z12.11] 12/12/2022 Prostate cancer metastatic to intraabdominal ly*01/31/2023 Osteoarthritis of multiple joints [M15.9] 01/31/2023 Mixed hyperlipidemia [E78.2] 01/31/2023 GERD (gastroesophageal reflux disease) [K21.9] 01/31/2023 Essential hypertension [I10] 01/31/2023 COPD (chronic obstructive pulmonary disease) (H*01/31/2023 Malignant neoplasm of prostate metastatic to rekha*07/13/2024 Encounter Status:Closed by BELEN STALEY on 08/20/24 Normal [facility] Comprehensive metabolic 2000 panelon 08-19-2024 Albumin [Mass/Vol] 4.0 g/dL Normal 3.9-4.9 [facility] Comment on above: Order Comment: Speci men Type: BLOOD SPECIMEN Ordering Facility: [facility] Address: [address] [place] [address] Performed By: #### 2 4323-8 #### [facility] [id number] [address] [place] [address] [place] ALP [Catalytic activity/Vol] 84 U/L Normal 38-113 [facility] Comment on above: Order Comment: Speci men Type: BLOOD SPECIMEN Ordering Facility: [facility] Address: [address] [place] [address] Performed By: #### 2 4323-8 #### [facility] [id number] [address] [place] [address] [place] ALT [Catalytic activity/Vol] 9 U/L Low 10-54 [facility] Comment on above: Order Comment: Speci men Type: BLOOD SPECIMEN Ordering Facility: [facility] Address: [address] [place] [address] Performed By: #### 2 4323-8 #### [facility] CLIA [id number] [address] [place] [address] [place] Anion gap [Moles/Vol] 10 mmol/L Normal 8-15 [facility] Comment on above: Order Comment: Speci men Type: BLOOD SPECIMEN Ordering Facility: [facility] Address: [address] [place] [address] Performed By: #### 2 4323-8 #### [facility] CLIA [id number] [address] [place] [address] [place] AST [Catalytic activity/Vol] 19 U/L Normal 14-40 [facility] Comment on above: Order Comment: Speci men Type: BLOOD SPECIMEN Ordering Facility: [facility] Address: [address] [place] [address] Performed By: #### 2 4323-8 #### [facility] CLIA [id number] [address] [place] [address] [place] Bilirubin [Mass/Vol] 0.2 mg/dL Normal 0.2-1.3 [facility] Comment on above: Order Comment: Speci men Type: BLOOD SPECIMEN Ordering Facility: [facility] Address: [address] [place] [address] Performed By: #### 2 4323-8 #### [facility] CLIA [id number] [address] [place] [address] [place] Calcium [Mass/Vol] 9.3 mg/dL Normal 8.5-10.2 [facility] Comment on above: Order Comment: Speci men Type: BLOOD SPECIMEN Ordering Facility: [facility] Address: [address] [place] [address] Performed By: #### 2 4323-8 #### [facility] CLIA [id number] [address] [place] [address] [place] Chloride [Moles/Vol] 104 mmol/L Normal 98-107 [facility] Comment on above: Order Comment: Speci men Type: BLOOD SPECIMEN Ordering Facility: [facility] Address: [address] [place] [address] Performed By: #### 2 4323-8 #### [facility] CLIA [id number] [address] [place] [address] [place] CO2 [Moles/Vol] 20 mmol/L Low 22-30 [facility] Comment on above: Order Comment: Speci men Type: BLOOD SPECIMEN Ordering Facility: [facility] Address: [address] [place] [address] Performed By: #### 2 4323-8 #### [facility] CLIA [id number] [address] [place] [address] [place] Creatinine [Mass/Vol] 1.33 mg/dL High 0.73-1.22 [facility] Comment on above: Order Comment: Speci men Type: BLOOD SPECIMEN Ordering Facility: [facility] Address: [address] [place] [address] Performed By: #### 2 4323-8 #### [facility] CLIA [id number] [address] [place] [address] [place] Creatinine and Glomerular filtration rate.predicted panel (S/P/Bld) 58 mL/min/1.73m??? Low >=60 [facility] Comment on above: Order Comment: Speci men Type: BLOOD SPECIMEN Ordering Facility: [facility] Address: [address] [place] [address] Result Comment: Rizwana mated Glomerular Filtration Rate (eGFR) is calculated using the 2020 CKD-EPI creatinine equation. This equation utilizes serum creatinine, sex, and age as parameters. The creatinine assay has traceable calibration to isotope dilution-mass spectrometry. Refer to KDIGO guidelines for clinical interpretation. In patients with unstable renal function, e.g. those with acute kidney injury, the eGFR may not accurately reflect actual GFR. Performed By: #### 2 4323-8 #### [facility] [id number] [address] [place] [address] [place] Glucose [Mass/Vol] 100 mg/dL High 74-99 [facility] Comment on above: Order Comment: Dion hawk Type: BLOOD SPECIMEN Ordering Facility: [facility] Address: [address] [place] [address] Result Comment: The [place] Diabetes Association (ADA) provides guidance for cutoff values for fasting glucose and random glucose. The ADA defines fasting as no caloric intake for at least 8 hours. Fasting plasma glucose results between 100 to 125 mg/dL indicate increased risk for diabetes (prediabetes). Fasting plasma glucose results greater than or equal to 126 mg/dL meet the criteria for diagnosis of diabetes. In the absence of unequivocal hyperglycemia, results should be confirmed by repeat testing. In a patient with classic symptoms of hyperglycemia or hyperglycemic crisis, random plasma glucose results greater than or equal to 200 mg/dL meet the criteria for diagnosis of diabetes. Reference: Standards of Medical Care in Diabetes 2016, [place] Diabetes Association. Diabetes Care. 2016.39(Suppl 1). Performed By: #### 2 4323-8 #### [facility] [id number] [address] [place] [address] [place] Potassium [Moles/Vol] 4.6 mmol/L Normal 3.7-5.1 [facility] Comment on above: Order Comment: Dion hawk Type: BLOOD SPECIMEN Ordering Facility: [facility] Address: [address] [place] [address] Performed By: #### 2 4323-8 #### [facility] [id number] [address] [place] [address] [place] Protein [Mass/Vol] 7.0 g/dL Normal 6.3-8.0 [facility] Comment on above: Order Comment: Dion hawk Type: BLOOD SPECIMEN Ordering Facility: [facility] Address: [address] [place] [address] Performed By: #### 2 4323-8 #### [facility] CLIA [id number] [address] [place] [address] [place] Sodium [Moles/Vol] 134 mmol/L Low 136-144 [facility] Comment on above: Order Comment: Speci men Type: BLOOD SPECIMEN Ordering Facility: [facility] Address: [address] [place] [address] Performed By: #### 2 4323-8 #### [facility] CLIA [id number] [address] [place] [address] [place] Urea nitrogen [Mass/Vol] 32 mg/dL High 9-24 [facility] Comment on above: Order Comment: Speci men Type: BLOOD SPECIMEN Ordering Facility: [facility] Address: [address] [place] [address] Performed By: #### 2 4323-8 #### [facility] CLIA [id number] [address] [place] [address] [place] PSA [facility] 08-19-2024 Prostate specific Ag [Mass/Vol] 0.33 ng/mL Normal <2.60 [facility] Comment on above: Order Comment: Speci men Type: BLOOD SPECIMEN Ordering Facility: [facility] Address: [address] [place] [address] Result Comment: Tota l PSA test methodology used is the Electrochemiluminescence Immunoassay by [employer]. Total PSA values by differing methodologies cannot be interchanged. Performed By: #### 2 4321-2 #### [facility] CLIA [id number] [address] [place] [address] [place] CNPNon 07-30-2024 CNPN Telephone (iBoxPay) -- LUIS ANGEL AGUILA ([id number]) 1955 M Date Time Provider Department 07/30/24 FINANCIAL NAVIGATOR RICK LEWIS During your visit today, we recorded the following information about you: Alin Strickland 07/30/2024 4:20 PM Signed 1st time treatment report- Spoke with patient by phone today. Pt has dual insurance, Medicare A AND B and [facility] AARP Supplement. There will be no oop cost for treatment. Patient expressed understanding. Pt confirmed no additional questions, concerns, or financial barriers at the moment. Provided pt with contact info.Cost Facit Questionnaire sent via [employer]. Allergies As of Date: 07/30/2024 Noted Allergy Reaction MORPHINE 10/25/2022 2 - Rash 9 - Itching PREDNISONE 10/25/2022 1 - Mental Status Change Date Reviewed: 07/27/2024 Reviewed by: Lilian Moreno RN - Fully Assessed Reason for Visit: Benefits Investigation [4098] Prescriptions as of 07/30/2024 - cyclobenzaprine (FLEXERIL) 10 mg tablet Take 1 tablet by mouth as directed. 1/2 to 1 tablet po qhs as needed for spasm - atenolol (TENORMIN) 50 mg tablet Take one tablet daily along with 25 mg tablet to equal 75 mg daily - atorvastatin (LIPITOR) 40 mg tablet Take 1 tablet by mouth daily at bedtime. For cholesterol. - lisinopril (ZESTRIL) 40 mg tablet Take 1 tablet by mouth once daily. - pregabalin (LYRICA) 100 mg capsule Take 1 capsule by mouth three times a day for 180 days. - albuterol HFA (VENTOLIN HFA) 90 mcg/actuation inhaler Inhale 2 Puffs as instructed every 4 hours as needed for wheezing/shortness of breath. - omeprazole (PRILOSEC) 40 mg capsule Take 1 capsule by mouth two times a day. - tiotropium-olodaterol (STIOLTO RESPIMAT) 2.5-2.5 mcg/actuation inhaler Inhale 2 Puffs as instructed once daily. - famotidine (PEPCID) 40 mg tablet Take 40 mg by mouth once daily. - acetaminophen (TYLENOL EXTRA STRENGTH) 500 mg tablet Take 1,000 mg by mouth every 8 hours as needed. - aspirin, enteric coated (ASPIRIN, ENTERIC COATED) 81 mg EC tablet Take 81 mg by mouth once daily. - docusate sodium (STOOL SOFTENER) 100 mg capsule Take 100 mg by mouth twice daily. - cholecalciferol (VITAMIN D-3) 50 mcg (2,000 unit) tablet Take 2,000 Units by mouth once daily. - beta-carotene,A,-vits C,E/mins (OCUVITE ORAL) Take 1 tablet by mouth once daily. - calcium carbonate (CALCIUM 600 ORAL) Take 1 tablet by mouth once daily. - Multivitamin capsule Take 1 capsule by mouth once daily. Problem List As Of Date 07/30/2024 Noted Resolved Small bowel obstruction (HCC) [K56.609] 11/19/2022 GI bleed [K92.2] 11/19/2022 Nicotine use disorder, F17.2 [F17.200] 11/20/2022 Ileus (HCC) [K56.7] 11/20/2022 Screening for colon cancer [Z12.11] 12/12/2022 Prostate cancer metastatic to intraabdominal ly*01/31/2023 Osteoarthritis of multiple joints [M15.9] 01/31/2023 Mixed hyperlipidemia [E78.2] 01/31/2023 GERD (gastroesophageal reflux disease) [K21.9] 01/31/2023 Essential hypertension [I10] 01/31/2023 COPD (chronic obstructive pulmonary disease) (H*01/31/2023 Malignant neoplasm of prostate metastatic to rekha*07/13/2024 Encounter Status:Closed by ALIN STRICKLAND on 07/30/24 [facility] CNOVlevi 07-27-2024 CNOV Office Visit (RADTWS ) -- LUIS ANGEL AGUILA ([id number]) 1955 M Date Time Provider Department 07/27/24 3:30 PM SOBIA OAKES During your visit today, we recorded the following information about you: Temperature Pulse Blood pressure 97.4 degrees 62/minute 126/77 Sobia Oakes MD 07/27/2024 3:36 PM Signed Radiation Oncology - On Treatment Review (OTR) Note PATIENT NAME: Luis Angel Aguila PATIENT DIAGNOSIS: Metastatic prostate cancer with bone metastasis in the left pelvis and pain. COURSE: palliative AREA TREATED: Lt Hip/pelvis CURRENT DOSE: 1500 cGy in 6 fx PLANNED DOSE: 1900 cGy in 8 fx SUBJECTIVE: He reports no significant changes in his left pelvic pain. He denies any nausea or diarrhea. EXAM: KPS: 90 General Appearance: Alert and oriented. No acute distress. IMAGING/LAB RESULTS: None Treatment chart checked: Yes Patient treatment site reviewed and verified:Yes CBCTs reviewed and current:Yes Medications started: None ASSESSMENT/PLAN: Clinically stable. No signs of toxicity. Continue radiation treatment as planned. MD Yunior Whittington Janice, RN 07/27/2024 3:36 PM Signed Radiation Therapy - Nursing Note (OTV) PATIENT NAME: Luis Angel Aguila PATIENT July 27, 2024 [facility] FACILITY/LOCATION[facility] NOTE TYPE: PROSTATE - MALE PELVIS Subjective Data no complaints Additional Data Do you want to see a Shield Operator? No Status: Patient is male Stress Scale: On a scale of 0 to 10, what number best describes how much distress you have experienced in the past week?(0 being no distress and 10 being extreme distress) 0 Social work notified: Pt denied need to see drug abuse social worker at this time. Nursing Assessment Fatigue: increased fatigue over baseline but not altering normal activities Appetite: fair Nutritional Intake: Regular oral intake. Weight Gain/Loss: Not applicable Ambulatory weight history: Last 6 Encounter Wt Readings: Date: Wt: 07/21/2024 81.2 kg (179 lb) 07/12/2024 78.9 kg (174 lb) 07/12/2024 78.9 kg (174 lb) 07/05/2024 79.6 kg (175 lb 8 oz) 03/18/2024 83.5 kg (184 lb) 03/01/2024 82.1 kg (181 lb) Nausea:None Vomiting: None Bowel Function: normal bowel movements Erythema/Hyperpigmentation :none Desquamation:none Rash:none Skin Care: Aquaphor Skin Sensation: Within Normal Limits Focused Assessment PROSTATE - MALE PELVIS: Rectal bleeding: No. Rectal pain: No. Bladder function: no problems. Urinary frequency (D/N): stable/stable. SIGNED by: Lilian Moreno RN Allergies As of Date: 07/27/2024 Noted Allergy Reaction MORPHINE 10/25/2022 2 - Rash 9 - Itching PREDNISONE 10/25/2022 1 - Mental Status Change Date Reviewed: 07/27/2024 Reviewed by: Lilian Moreno RN - Fully Assessed Reason for Visit: Radiotherapy On-treatment Visit [1722] Primary Visit Diagnosis:Prostate cancer metastatic to bone (HCC) [C61, C79.51] Prescriptions as of 07/27/2024 - cyclobenzaprine (FLEXERIL) 10 mg tablet Take 1 tablet by mouth as directed. 1/2 to 1 tablet po qhs as needed for spasm - atenolol (TENORMIN) 50 mg tablet Take one tablet daily along with 25 mg tablet to equal 75 mg daily - atorvastatin (LIPITOR) 40 mg tablet Take 1 tablet by mouth daily at bedtime. For cholesterol. - lisinopril (ZESTRIL) 40 mg tablet Take 1 tablet by mouth once daily. - pregabalin (LYRICA) 100 mg capsule Take 1 capsule by mouth three times a day for 180 days. - albuterol HFA (VENTOLIN HFA) 90 mcg/actuation inhaler Inhale 2 Puffs as instructed every 4 hours as needed for wheezing/shortness of breath. - omeprazole (PRILOSEC) 40 mg capsule Take 1 capsule by mouth two times a day. - tiotropium-olodaterol (STIOLTO RESPIMAT) 2.5-2.5 mcg/actuation inhaler Inhale 2 Puffs as instructed once daily. - famotidine (PEPCID) 40 mg tablet Take 40 mg by mouth once daily. - acetaminophen (TYLENOL EXTRA STRENGTH) 500 mg tablet Take 1,000 mg by mouth every 8 hours as needed. - aspirin, enteric coated (ASPIRIN, ENTERIC COATED) 81 mg EC tablet Take 81 mg by mouth once daily. - docusate sodium (STOOL SOFTENER) 100 mg capsule Take 100 mg by mouth twice daily. - cholecalciferol (VITAMIN D-3) 50 mcg (2,000 unit) tablet Take 2,000 Units by mouth once daily. - beta-carotene,A,-vits C,E/mins (OCUVITE ORAL) Take 1 tablet by mouth once daily. - calcium carbonate (CALCIUM 600 ORAL) Take 1 tablet by mouth once daily. - Multivitamin capsule Take 1 capsule by mouth once daily. Problem List As Of Date 07/27/2024 Noted Resolved Small bowel obstruction (HCC) [K56.609] 11/19/2022 GI bleed [K92.2] 11/19/2022 Nicotine use disorder, F17.2 [F17.200] 11/20/2022 Ileus (HCC) [K56.7] 11/20/2022 Screening for colon cancer [Z12.11] 12/12/2022 Prostate cancer metastatic to intraabdominal ly*01/31/2023 Osteoarthritis of multiple joints [M15.9] 02/01/20 (more content not included)... Normal [facility] CNPNon [facility]-26-2024 [facility] -- LUIS ANGEL AGUILA ([id number]) 1955 M Date Time Provider Department 07/26/24 AMADEO YEE [facility] During your visit today, we recorded the following information about you: Jarod Helm 07/26/2024 10:33 AM Signed this is pt is scheduled today for procedure 07/26/24. kat called in last week and spoke to someone in our office about her , he was dx'd last week with hip cancer. She was wondering can he still have his injection or need to cx all together? She knows if he can have it he will need to r/s it since its cutting close to time. Jarod Mcgee 07/26/2024 10:33 AM Signed Patient was called back and spoke with Luis Angel. He was informed his appointment was cancelled as well as the follow up. Patient said his cancer is now in his bones and has 5 more radiation treatments to go. Patient was informed he will be called back after Dr. Yee gets out of procedures and able to look in his chart. 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 He is undergoing radiation and is on lupron, but I have since clarified with his Onc team that he is not undergoing chemotherapy. Ok to proceed with ILESI, will reschedule Jarod Helm 07/27/2024 11:34 AM Signed Patient has been called and rescheduled along with his follow up. Jarod Helm Allergies As of Date: 07/26/2024 Noted Allergy Reaction MORPHINE 10/25/2022 2 - Rash 9 - Itching PREDNISONE 10/25/2022 1 - Mental Status Change Date Reviewed: 07/21/2024 Reviewed by: Chelsea Cazares LPN - Fully Assessed Reason for Visit: Appointment [186] Prescriptions as of 07/27/2024 - cyclobenzaprine (FLEXERIL) 10 mg tablet Take 1 tablet by mouth as directed. 1/2 to 1 tablet po qhs as needed for spasm - atenolol (TENORMIN) 50 mg tablet Take one tablet daily along with 25 mg tablet to equal 75 mg daily - atorvastatin (LIPITOR) 40 mg tablet Take 1 tablet by mouth daily at bedtime. For cholesterol. - lisinopril (ZESTRIL) 40 mg tablet Take 1 tablet by mouth once daily. - pregabalin (LYRICA) 100 mg capsule Take 1 capsule by mouth three times a day for 180 days. - albuterol HFA (VENTOLIN HFA) 90 mcg/actuation inhaler Inhale 2 Puffs as instructed every 4 hours as needed for wheezing/shortness of breath. - omeprazole (PRILOSEC) 40 mg capsule Take 1 capsule by mouth two times a day. - tiotropium-olodaterol (STIOLTO RESPIMAT) 2.5-2.5 mcg/actuation inhaler Inhale 2 Puffs as instructed once daily. - famotidine (PEPCID) 40 mg tablet Take 40 mg by mouth once daily. - acetaminophen (TYLENOL EXTRA STRENGTH) 500 mg tablet Take 1,000 mg by mouth every 8 hours as needed. - aspirin, enteric coated (ASPIRIN, ENTERIC COATED) 81 mg EC tablet Take 81 mg by mouth once daily. - docusate sodium (STOOL SOFTENER) 100 mg capsule Take 100 mg by mouth twice daily. - cholecalciferol (VITAMIN D-3) 50 mcg (2,000 unit) tablet Take 2,000 Units by mouth once daily. - beta-carotene,A,-vits C,E/mins (OCUVITE ORAL) Take 1 tablet by mouth once daily. - calcium carbonate (CALCIUM 600 ORAL) Take 1 tablet by mouth once daily. - Multivitamin capsule Take 1 capsule by mouth once daily. Problem List As Of Date 07/26/2024 Noted Resolved Small bowel obstruction (HCC) [K56.609] 11/19/2022 GI bleed [K92.2] 11/19/2022 Nicotine use disorder, F17.2 [F17.200] 11/20/2022 Ileus (HCC) [K56.7] 11/20/2022 Screening for colon cancer [Z12.11] 12/12/2022 Prostate cancer metastatic to intraabdominal ly*01/31/2023 Osteoarthritis of multiple joints [M15.9] 01/31/2023 Mixed hyperlipidemia [E78.2] 01/31/2023 GERD (gastroesophageal reflux disease) [K21.9] 01/31/2023 Essential hypertension [I10] 01/31/2023 COPD (chronic obstructive pulmonary disease) (H*01/31/2023 Malignant neoplasm of prostate metastatic to rekha*07/13/2024 Encounter Status:Closed by JAROD HELM on 07/26/24 [facility] 07-20-2024 CNOV Office Visit (RADTWS ) -- LUIS ANGEL AGUILA ([id number]) 1955 M Date Time Provider Department 07/20/24 1:30 PM SOBIA OAKES During your visit today, we recorded the following information about you: Temperature Pulse Blood pressure 97.8 degrees 56/minute 114/68 Sobia Oakes MD 07/20/2024 1:57 PM Signed Radiation Oncology - On Treatment Review (OTR) Note PATIENT NAME: Luis Angel Aguila PATIENT DIAGNOSIS: Metastatic prostate cancer with bone metastasis in the left pelvis and pain. COURSE: palliative AREA TREATED: Lt Hip/pelvis CURRENT DOSE: 300 cGy in 1 fx PLANNED DOSE: 3000 cGy in 10 fx SUBJECTIVE: He had the first treatment today and he tolerated it well. EXAM: KPS: 90 General Appearance: Alert and oriented. No acute distress. IMAGING/LAB RESULTS: None Treatment chart checked: Yes Patient treatment site reviewed and verified:Yes CBCTs reviewed and current:Yes Medications started: None ASSESSMENT/PLAN: Clinically stable. No signs of toxicity. Continue radiation treatment as planned. MD Yunior Whittington Janice, RN 07/20/2024 1:57 PM Signed Radiation Therapy - Nursing Note (OTV) PATIENT NAME: Luis Angel Aguila PATIENT July 20, 2024 [facility] FACILITY/LOCATION: [place] NURSING NOTE TYPE: PROSTATE - MALE PELVIS Subjective Data no complaints on day one Additional Data Do you want to see a Shield Operator? No Status: Patient is male Stress Scale: On a scale of 0 to 10, what number best describes how much distress you have experienced in the past week?(0 being no distress and 10 being extreme distress) 0 Social work notified: Pt denied need to see drug abuse social worker at this time. Nursing Assessment Fatigue: none Appetite: decreased appetite for a couple of weeks Nutritional Intake: Regular oral intake. Weight Gain/Loss: Not applicable Ambulatory weight history: Last 6 Encounter Wt Readings: Date: Wt: 07/12/2024 78.9 kg (174 lb) 07/12/2024 78.9 kg (174 lb) 07/05/2024 79.6 kg (175 lb 8 oz) 03/18/2024 83.5 kg (184 lb) 03/01/2024 82.1 kg (181 lb) 12/16/2023 80.3 kg (177 lb) Nausea:None Vomiting: None Bowel Function: normally takes a stool softener Erythema/Hyperpigmentation :none Desquamation:none Rash:none Skin Care: Aquaphor Skin Sensation: Within Normal Limits Focused Assessment PROSTATE - MALE PELVIS: Rectal bleeding: No. Rectal pain: No. Bladder function: no problems. Urinary frequency (D/N): stable /stable wears a pad due to occasional leakage. SIGNED by: Lilian Mroeno RN Allergies As of Date: 07/20/2024 Noted Allergy Reaction MORPHINE 10/25/2022 2 - Rash 9 - Itching PREDNISONE 10/25/2022 1 - Mental Status Change Date Reviewed: 07/20/2024 Reviewed by: Lilian Moreno RN - Fully Assessed Reason for Visit: Radiotherapy On-treatment Visit [1722] Primary Visit Diagnosis:Prostate cancer metastatic to bone (HCC) [C61, C79.51] Prescriptions as of 07/20/2024 - cyclobenzaprine (FLEXERIL) 10 mg tablet Take 1 tablet by mouth as directed. 1/2 to 1 tablet po qhs as needed for spasm - atenolol (TENORMIN) 50 mg tablet Take one tablet daily along with 25 mg tablet to equal 75 mg daily - atorvastatin (LIPITOR) 40 mg tablet Take 1 tablet by mouth daily at bedtime. For cholesterol. - lisinopril (ZESTRIL) 40 mg tablet Take 1 tablet by mouth once daily. - pregabalin (LYRICA) 100 mg capsule Take 1 capsule by mouth three times a day for 180 days. - albuterol HFA (VENTOLIN HFA) 90 mcg/actuation inhaler Inhale 2 Puffs as instructed every 4 hours as needed for wheezing/shortness of breath. - omeprazole (PRILOSEC) 40 mg capsule Take 1 capsule by mouth two times a day. - tiotropium-olodaterol (STIOLTO RESPIMAT) 2.5-2.5 mcg/actuation inhaler Inhale 2 Puffs as instructed once daily. - famotidine (PEPCID) 40 mg tablet Take 40 mg by mouth once daily. - acetaminophen (TYLENOL EXTRA STRENGTH) 500 mg tablet Take 1,000 mg by mouth every 8 hours as needed. - aspirin, enteric coated (ASPIRIN, ENTERIC COATED) 81 mg EC tablet Take 81 mg by mouth once daily. - docusate sodium (STOOL SOFTENER) 100 mg capsule Take 100 mg by mouth twice daily. - cholecalciferol (VITAMIN D-3) 50 mcg (2,000 unit) tablet Take 2,000 Units by mouth once daily. - beta-carotene,A,-vits C,E/mins (OCUVITE ORAL) Take 1 tablet by mouth once daily. - calcium carbonate (CALCIUM 600 ORAL) Take 1 tablet by mouth once daily. - Multivitamin capsule Take 1 capsule by mouth once daily. Problem List As Of Date 07/20/2024 Noted Resolved Small bowel obstruction (HCC) [K56.609] 11/19/2022 GI bleed [K92.2] 11/19/2022 Nicotine use disorder, F17.2 [F17.200] 11/20/2022 Ileus (HCC) [K56.7] 11/20/2022 Screening for colon cancer [Z12.11] 12/12/2022 Prostate cancer metastatic to intraabdominal ly*01/31/2023 Osteoarthritis of multiple joints [M15.9] (more content not included)... Normal [facility] CNNURSEon 07-15-2024 CNNURSE Nurse Visit (RADTWS) -- LUIS ANGEL AGUILA ([id number]) 1955 M Date Time Provider Department 07/15/24 10:45 AM NURSE RADT [facility] RADTWS During your visit today, we recorded the following information about you: Job Rucker, RN 07/15/2024 11:05 AM Signed Radiation Therapy - Patient Education Note PATIENT NAME: Luis Angel Aguila PATIENT July 15, 2024 [facility] FACILITY/LOCATION: [place] READINESS TO LEARN Cognitive Ability: Alert and oriented Motivation to learn: Eager Interested Family Support: High - Very involved in pt care Instruction provide to: Patient and Family member Patient learns best by: Multiple Methods Factors effecting learning: None Physical limitations effecting learning: None LEARNING RESPONSE Diagnosis: Pt simulated today for radiation therapy to multiple sites: left hip/pelvis. Education Topic/Teaching Points: Radiation therapy, Side effects, and OTV: Method of instruction: Teach Back skin care Individual instruction Written instruction/Handouts Verbal instruction Patient /Family response: Patient and family verbalized understanding of radiation treatments, side effects, OTV, and transportation. Follow-up plan: Patient instructed to call with any further issues Contact information given. Supplemental material: Informational handouts on Department phone list, Diarrhea, Fatigue, and [place] instructions, XRT sheet and Aquaphor handout. Referral (recommendation): None, Pt denied need for social work, van service, and ply cutter. Patient has an Onbody or Implanted device: No Signed by: Job Rucker RN Allergies As of Date: 07/15/2024 Noted Allergy Reaction MORPHINE 10/25/2022 2 - Rash 9 - Itching PREDNISONE 10/25/2022 1 - Mental Status Change Date Reviewed: 07/12/2024 Reviewed by: Job Rucker RN - Fully Assessed Reason for Visit: Patient Education [91] Primary Visit Diagnosis:Prostate cancer metastatic to bone (HCC) [C61, C79.51] Prescriptions as of 07/15/2024 - cyclobenzaprine (FLEXERIL) 10 mg tablet Take 1 tablet by mouth as directed. 1/2 to 1 tablet po qhs as needed for spasm - atenolol (TENORMIN) 50 mg tablet Take one tablet daily along with 25 mg tablet to equal 75 mg daily - atorvastatin (LIPITOR) 40 mg tablet Take 1 tablet by mouth daily at bedtime. For cholesterol. - lisinopril (ZESTRIL) 40 mg tablet Take 1 tablet by mouth once daily. - pregabalin (LYRICA) 100 mg capsule Take 1 capsule by mouth three times a day for 180 days. - albuterol HFA (VENTOLIN HFA) 90 mcg/actuation inhaler Inhale 2 Puffs as instructed every 4 hours as needed for wheezing/shortness of breath. - omeprazole (PRILOSEC) 40 mg capsule Take 1 capsule by mouth two times a day. - tiotropium-olodaterol (STIOLTO RESPIMAT) 2.5-2.5 mcg/actuation inhaler Inhale 2 Puffs as instructed once daily. - famotidine (PEPCID) 40 mg tablet Take 40 mg by mouth once daily. - acetaminophen (TYLENOL EXTRA STRENGTH) 500 mg tablet Take 1,000 mg by mouth every 8 hours as needed. - aspirin, enteric coated (ASPIRIN, ENTERIC COATED) 81 mg EC tablet Take 81 mg by mouth once daily. - docusate sodium (STOOL SOFTENER) 100 mg capsule Take 100 mg by mouth twice daily. - cholecalciferol (VITAMIN D-3) 50 mcg (2,000 unit) tablet Take 2,000 Units by mouth once daily. - beta-carotene,A,-vits C,E/mins (OCUVITE ORAL) Take 1 tablet by mouth once daily. - calcium carbonate (CALCIUM 600 ORAL) Take 1 tablet by mouth once daily. - Multivitamin capsule Take 1 capsule by mouth once daily. Problem List As Of Date 07/15/2024 Noted Resolved Small bowel obstruction (HCC) [K56.609] 11/19/2022 GI bleed [K92.2] 11/19/2022 Nicotine use disorder, F17.2 [F17.200] 11/20/2022 Ileus (HCC) [K56.7] 11/20/2022 Screening for colon cancer [Z12.11] 12/12/2022 Prostate cancer metastatic to intraabdominal ly*01/31/2023 Osteoarthritis of multiple joints [M15.9] 01/31/2023 Mixed hyperlipidemia [E78.2] 01/31/2023 GERD (gastroesophageal reflux disease) [K21.9] 01/31/2023 Essential hypertension [I10] 01/31/2023 COPD (chronic obstructive pulmonary disease) (H*01/31/2023 Malignant neoplasm of prostate metastatic to rekha*07/13/2024 Encounter Status:Closed by JOB RUCKER on 07/15/24 [facility] 07-15-2024 CNOV Office Visit (SPAGWO ) -- LUIS ANGEL AGUILA ([id number]) 1955 Date Time Provider Department 07/15/24 3:00 PM ALINA BRYOSN During your visit today, we recorded the following information about you: Pulse Respiration 65/minute 17/minute Lizabeth Araiza LPN 07/15/2024 3:21 PM Signed Review of Systems Constitutional: Positive for activity change and unexpected weight change. Negative for chills and fever. Genitourinary: Negative for difficulty urinating. Musculoskeletal: Positive for arthralgias, back pain, gait problem, myalgias, neck pain and neck stiffness. Negative for joint swelling. Neurological: Negative for weakness, numbness and headaches. Psychiatric/Behavioral: Positive for sleep disturbance. Negative for dysphoric mood and suicidal ideas. The patient is not nervous/anxious. Alina Bryson APRN.CNP 07/15/2024 3:21 PM Signed [facility] General Today's Date: 07/15/2024 Name: Luis Angel Aguila : 1955 Purpose: Follow-up Patient Evaluation - This is an established patient, returning today for continued evaluation and management of the chief complaint noted below Chief complaint: hip pain and back pain Referring Clinician: Self Pertinent Past Medical History: Hypertension (HTN), Hyperlipidemia (HLD), COPD , Gastroesophageal Reflux Disease (GERD), Ileus (11/2022), 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 node, OA multiple joints, Nicotine use disorder, Pertinent Past Surgeries: Cervical fusion, Bilat shoulder surgery Plan at last visit: (Seen on 06/17/2024 by Alina Bryson CNP) IMPRESSION: 69 year old male presents with complaint(s) of Low back pain with radicular symptoms. Patient's pain does not appear to be as severe as prior last interlaminar epidural steroid injection however it does appear to be starting to return. I will schedule the patient for a repeat interlaminar epidural steroid injection as he did receive excellent relief from this procedure in the past. Diagnoses: (M48.062) Spinal stenosis of lumbar region with neurogenic claudication (primary encounter diagnosis) (M54.16) Lumbar radiculopathy (M70.62) Trochanteric bursitis of left hip PLAN: Luis Angel Aguila would benefit from the following to reach personal goals for decreasing pain, improving function and work participation, and/or improving quality of life: Medications: Requested Prescriptions No prescriptions requested or ordered in this encounter Continue lyrica will increase to tid , 1 in am and 2 at bedtime. Interventional Procedures: Epidural Steroid Injection - Interlaminar Approach (ILESI) under fluoroscopic guidance NONE at L5-S1 Radio Recorder Needed: Epidural - YES Anticoagulant - Hold Needed: Lumbar Epidural (HOLD) Anticoagulant - Currently Taking: None Allergies (relevant): None Scheduling - Mobility (Can Patient independently transfer on/off an OR or Procedure table?): YES (May schedule at any location) Scheduling - Additional Info: None Studies: X-ray: Hip (Left) reviewed Functional Taoism: Continue home exercises from Chiropractics Referrals: No additional considerations at present Follow-up:2 months Depending on response to the above plan, consider: Right GT bursa injection and/or TPI Interval History: Overall pain and functional disability since last visit: Unchanged New Complaints since last visit: No Pain Description: Timing: Constant Character: Sharp Primary Location: left hip Radiation: left groin Exacerbating factors: getting up from sitting Relieving factors: sitting Interferes with: physical activity The patient reports leg weakness Patient is here today reporting that he has been newly diagnosed with cancer in his hips worse on the left side. Patient stating that he is scheduled to start radiation and chemotherapy. Patient stating he has been told that this will help with the pain in his hip. Patient is coming continuing the Lupron injections. Patient stating that the oncologist says we cannot do hip injections however it is okay to proceed with the back injection which is currently scheduled. Current Pain Medications: Neuropathics: lyrica NSAIDS: Muscle Relaxants: Topicals: Other Prescription or OTC Pain Medications: tylenol Opioids (when applicable): Anti-depressants or Mood-Stabilizers: None Anti-Coagulants: None Therapies Attended (Current or Most Recent): No Current Therapies 05/01/2023 03/11/2024 05/20/2024 AG SPINE COMBINATION Questionnaire GREENLIGHT Completed Date 05/01/2023 Completed Date 05/20/2024 Comments TERRANCE--Pregabalin Questionnaire Opiod Risk Tool Opiod Risk Tool Completed Date 05/01/2023 03/11/2024 Comments Low Risk (more content not included)... Normal [facility] CNOVon 07-12-2024 CNOV Office Visit (RADTWS ) -- LUIS ANGEL AGUILA ([id number]) 1955 M Date Time Provider Department 07/12/24 10:30 AM SOBIA OAKES During your visit today, we recorded the following information about you: Temperature Pulse Respiration Blood pressure 97.5 degrees 67/minute 14/minute 95/65 Weight 78.9 kg Job Rucker RN 07/14/2024 11:07 AM Signed Radiation Therapy - Nursing Note (Consult) PATIENT NAME: Luis Angel Aguila PATIENT July 12, 2024 [facility] FACILITY/LOCATION: [place] Chief Complaint: consult Reason for visit: Consult. Referring physician: Internal provider Dr Jung Subjective Data: see pain assessment Additional Data Do you want to see a Shield Operator? No Are you interested in information about fertility? No Status: Patient is male Stress Scale: On a scale of 0 to 10, what number best describes how much distress you have experienced in the past week?(0 being no distress and 10 being extreme distress) 3 Social work notified: no and Pt denied need to see drug abuse social worker at this time. SIGNED by: BRYSON Noguera Daesung, MD 07/14/2024 11:07 AM Signed Radiation Oncology - New Patient/Consult Note PATIENT NAME: Luis Angel Aguila PATIENT REQUESTING PROVIDER: Dr. Monica Jung DIAGNOSIS: Metastatic prostate cancer with bone metastasis in the left pelvis and pain. HPI: 69 year old male who presents with above diagnosis, for an opinion regarding the role of radiation therapy in the management of the patient's disease. Final recommendations will be communicated back to the requesting physician by way of the shared medical record, or letter to requesting physician via US mail. 69 year old man who was initially diagnosed with pT3 pN1 prostate cancer in 2021 treated with radical prostatectomy. He had pretreatment PSA 54 and Gia score 7 (3+4) disease with positive margins. PSMA PET scan on 06/11/21 showed multiple positive pelvic nodes. He was started on ADT and he underwent radiation treatment to the pelvis at the [facility] in [facility] under the care of Dr. Charlie Ingram. 70Gy was planned but he had severe diarrhea and nausea and it was stopped at 44Gy. He moved to [place] and saw Dr. Jung and continues ADT treatment. He has worsening pain in the left hip area aggravated with weight bearing. Steroid injection in the hip alleviated his pain only partially. PSMA PET scan on 07/07/24 showed avid uptake in the left bony pelvis likely osseous metastasis. PSA on 07/05/24 was 0.62 and it increased from 0.32 on 03/15/24 and 0.06 on 12/12/23. ALLERGIES Allergen Reactions Morphine Rash, Itching Prednisone Mental Status Change Current Outpatient Medications on File Prior to Visit Medication Sig cyclobenzaprine (FLEXERIL) 10 mg tablet Take 1 tablet by mouth as directed. 1/2 to 1 tablet po qhs as needed for spasm atenolol (TENORMIN) 50 mg tablet Take one tablet daily along with 25 mg tablet to equal 75 mg daily atorvastatin (LIPITOR) 40 mg tablet Take 1 tablet by mouth daily at bedtime. For cholesterol. lisinopril (ZESTRIL) 40 mg tablet Take 1 tablet by mouth once daily. pregabalin (LYRICA) 100 mg capsule Take 1 capsule by mouth three times a day for 180 days. albuterol HFA (VENTOLIN HFA) 90 mcg/actuation inhaler Inhale 2 Puffs as instructed every 4 hours as needed for wheezing/shortness of breath. omeprazole (PRILOSEC) 40 mg capsule Take 1 capsule by mouth two times a day. tiotropium-olodaterol (STIOLTO RESPIMAT) 2.5-2.5 mcg/actuation inhaler Inhale 2 Puffs as instructed once daily. famotidine (PEPCID) 40 mg tablet Take 40 mg by mouth once daily. acetaminophen (TYLENOL EXTRA STRENGTH) 500 mg tablet Take 1,000 mg by mouth every 8 hours as needed. aspirin, enteric coated (ASPIRIN, ENTERIC COATED) 81 mg EC tablet Take 81 mg by mouth once daily. docusate sodium (STOOL SOFTENER) 100 mg capsule Take 100 mg by mouth twice daily. cholecalciferol (VITAMIN D-3) 50 mcg (2,000 unit) tablet Take 2,000 Units by mouth once daily. beta-carotene,A,-vits C,E/mins (OCUVITE ORAL) Take 1 tablet by mouth once daily. calcium carbonate (CALCIUM 600 ORAL) Take 1 tablet by mouth once daily. Multivitamin capsule Take 1 capsule by mouth once daily. No current facility-administered medications on file prior to visit. 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) S/P prostatectomy Tobacco use disorder Prior radiation therapy, collagen vascular disease, or inflammatory bowel disease: Yes, previous radiation treatment to the pelvis as above. Any implanted or external electric devices? No PAST SURGICAL HISTORY (more content not included)... Normal [facility] CNOVSPon 07-12-2024 CNOVSP Visit (SP) Office (H EMAWS) -- LUIS ANGEL AGUILA ([id number]) 1955 M Date Time Provider Department 07/12/24 9:30 AM MONICA JUNG During your visit today, we recorded the following information about you: Temperature Pulse Blood pressure Weight 97.8 degrees 67/minute 96/65 78.9 kg Monica Jung DO 07/12/2024 10:10 AM Signed Oncologic problem(s): 1) Castrate sensitive prostate cancer. HPI: The patient is a 69-year-old male with past medical history significant for hyperlipidemia, hypertension, moderate COPD, GERD, previous cervical spine surgery, chronic low back pain and prostate cancer. Developed gross hematuria. PSA 50s. RP with penile implant. Bladder tear about a month later. PET--recurrence in prostate bed. 06/2021 4 weeks RT in [place] with GnRH agonist treatment (Lupron). Stopped due to side effects--Severe diarrhea and n/v. PSA undetectable 06/2022. Presumably from Lupron. CT A/P 11/18/2022: IMPRESSION: 1. Postoperative ileus versus changes of early small bowel obstruction within the right pelvis as discussed above. Short-term follow-up suggested. 2. Changes of recent prostatectomy and penile implant. There is a 6.0 x 2.7 x 9.5 cm nonencapsulated postoperative fluid collection within the right lower quadrant subcutaneous fat adjacent to the penile pump. 3. Mild free fluid. 4. Sacral insufficiency fractures. Medically managed for SBO. Saw Dr. Ariza at 11/10/2023: -Assessment/Plan I personally saw patient and counselled all visit on his diagnosis, kamilla history and coordination of his care. This is a 68 y.o. male man known with LN+ PC on ADT (d/c zytiga/pred and apa s/t AEs) with T > 50 and low PSA and negative recent PSMA (June 2022). He had incomplete salvage XRT but aborted s/t bowel tox. He is discontinuing ADT per pt preference - understands R/A of this decision. He was found with some lung abn, but PET was negative and bronch results pending. He is smoker. Will call him in few weeks to Fup on bronch results We discussed the clinical significance of diagnosis, goals of care and treatment plan in detail. Thank you for the opportunity to be involved in the care of Luis Angel Aguila. Please do not hesitate to reach out with any questions. Thank you. Path was negative. Per recent note from [place] [facility] -Follow up sp EGD with biopsies 11/26/2023. 1 cm circumferential salmon colored mucosa seen at the GE junction at the time of EGD, consistent with short segment Oliver's esophagus. 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 We discussed the etiology of Oliver's and need for continued endoscopic surveillance due to risk of malignancy. Recommend patient continue on his PPI/H2 nabil, repeat EGD in 5 years for surveillance. OV 07/05/2024: Had a PSMA PET scan done at . 04/2024 Impression: 1. Status post prostatectomy without focally increased Ga68 PSMA expression within the prostate gland to suggest local recurrence. 2. Mild PSMA-avid sub-centimeter aortocaval lymph node, nereida metastasis cannot be excluded. Production Weigher images sent to PACS for review. 3. Mild PSMA expression within the lung nodule along right heart border which was not FDG avid on PET dated 10/01/2023, non-specific. Continued attention on follow-up imaging is recommended. 4. Mild Ga68 PSMA-avid within right iliac bone lesion, although not typical for prosthetic bone metastasis, continued attention on follow-up imaging is recommended. I'm not doing anymore of those shots. Hot flashes resolved. No symptoms of LUTS. LBP significantly improved after epidural injection. 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 Interim history: Had repeat PET scan. Has occasional hip pain previously relieved with cortisone injections. Still working 12 to 14 hours a day. No pain getting in and out of the truck. 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 1/2 to 1 tablet po qhs as needed for spasm atenolol (TENORMIN) 50 mg tablet Take one tablet daily along with 25 mg (more content not included)... Normal [facility] NM PET/CT PROSTATE WBon 04-0 NM PET/CT PROSTATE WB * * *Final Report* * * DATE OF EXAM: Jul 07 2024 11:12AM [facility] 0093 - NM PET/CT PROSTATE WB / PROCEDURE REASON: multiple diagnoses * * * * Physician Interpretation * * * * EXAMINATION: PROSTATE-SPECIFIC MEMBRANE ANTIGEN PET-CT CLINICAL HISTORY: Prostate cancer elevated. * Prostate Cancer Grade: * PSA: 0.62 ng/mL 07/05/2024 * Previous Therapy: Radiation therapy, Lupron EXAM CATEGORY: Subsequent treatment strategy. TECHNIQUE: Radiopharmaceutical was administered intravenously followed later on by PET imaging from the skull vertex to thighs. Free breathing, low dose CT of the same body region was acquired without IV contrast for attenuation correction and anatomic localization. Unenhanced imaging is limited for the evaluation of some pathology and the acquired CT was not designed to produce diagnostic CT scan quality. Physiologic/non-pathologic uptake in some body regions could confound or obscure some pathology. * CT Dose-Length Product (DLP): 369 mGy*cm * CT Dose Reduction Employed: Yes * Injection site: Left Forearm-Antecubital * Injected activity: 8.4 mCi * Uptake Time: 60 minutes * Radiopharmaceutical: F-18 PSMA (Posluma) CORRELATION: CT abdomen and pelvis 11/18/2022 RESULT: REFERENCES: Uptake by the injected radiopharmaceutical serves as a surrogate marker for prostate-specific membrane antigen (PSMA) expression. All reported standardized uptake values represent maximum SUV (SUVmax) per body weight, unless otherwise specified. SUV Reference Values: * Background Salivary Gland: SUVmax 26 * Blood Pool (Descending Aorta): SUVmax 2 * Background Liver: SUVmax 7.4 Localizer Images: No additional findings. HEAD AND NECK: Head: No radiotracer avid lesion or mass effect in the intracranial compartment. Aerodigestive Tract: No radiotracer avid lesion. Lymph Nodes: No radiotracer avid lymphadenopathy. Neck Soft Tissues: No radiotracer avid thyroid nodule. Cervical spinal hardware. CHEST: Lungs and Pleura: No radiotracer avid mass, nodule, or consolidation. No pleural effusion. 6 mm right midlung nodule below the resolution Lymph Nodes: No radiotracer avid lymphadenopathy. Mediastinum: No radiotracer avid mass. Cardiovascular: Blood pool activity. No pericardial effusion. Normal heart size. Prominent ascending aorta. Chest Wall: No radiotracer avid soft tissue lesion. ABDOMEN AND PELVIS: Hepatobiliary: No radiotracer avid lesion. No measurable mass. Spleen: No radiotracer avid lesion. No splenomegaly. Pancreas: No radiotracer avid lesion. Adrenals: No radiotracer avid nodule. Urinary Tract: Physiologic radiotracer excretion in the urinary tract. No hydronephrosis. GI Tract: No radiotracer avid lesion. No bowel dilation. Peritoneum: No radiotracer avid lesion. No ascites. Lymph Nodes: * Abdomen (including common iliac): No radiotracer avid lymphadenopathy. * Pelvis (below common iliac): No radiotracer avid lymphadenopathy. Vasculature: Blood pool activity. Prostate and Seminal Vesicles: No radiotracer avid lesion. Pelvis Soft Tissues: No radiotracer avid lesion. Penile implant with adjacent nonavid collection in the subcutaneous right lower MUSCULOSKELETAL: Bones: Avid uptake in the left acetabulum left iliac bone with sclerotic (max SUV 10.5) likely osseous metastatic disease Mild activity with degenerative changes in the lumbar spine. Soft Tissues: No radiotracer avid lesion. IMPRESSION: PROSTATE: * No PSMA expressing prostate lesion. NEREIDA DISEASE: * No PSMA expressing pelvic lymphadenopathy. METASTATIC DISEASE: * Avid uptake in the left bony pelvis likely representing PSMA expressing osseous metastases Header Operator: CATRACHO Transcribe Date/Time: Jul 07 2024 6:03P Dictated by : DARIANA MENENDEZ MD This examination was interpreted and the report reviewed and electronically signed by: DARIANA MENENDEZ MD on Jul 07 2024 6:31PM EST [id number] [facility] PET+CT Guidance for localiza tion of tumor of Whole body-- W 18F-FDG Aster 07-07-2024 IMPRESSION: PROSTATE: * No PSMA expressing prostate lesion. NEREIDA DISEASE: * No PSMA expressing pelvic lymphadenopathy. METASTATIC DISEASE: * Avid uptake in the left bony pelvis likely representing PSMA expressing osseous metastases Header Operator: CATRACHO Transcribe Date/Time: Jul 07 2024 6:03P Dictated by : DARIANA MENENDEZ MD This examination was interpreted and the report reviewed and electronically signed by: DARIANA MENENDEZ MD on Jul 07 2024 6:31PM [facility] RADIOLOGY * * *Final Report* * * DATE OF EXAM: Jul 07 2024 11:12AM [facility] 0093 - NM PET/CT PROSTATE WB / PROCEDURE REASON: multiple diagnoses * * * * Physician Interpretation * * * * EXAMINATION: PROSTATE-SPECIFIC MEMBRANE ANTIGEN PET-CT CLINICAL HISTORY: Prostate cancer elevated. * Prostate Cancer Grade: * PSA: 0.62 ng/mL 07/05/2024 * Previous Therapy: Radiation therapy, Lupron EXAM CATEGORY: Subsequent treatment strategy. TECHNIQUE: Radiopharmaceutical was administered intravenously followed later on by PET imaging from the skull vertex to thighs. Free breathing, low dose CT of the same body region was acquired without IV contrast for attenuation correction and anatomic localization. Unenhanced imaging is limited for the evaluation of some pathology and the acquired CT was not designed to produce diagnostic CT scan quality. Physiologic/non-pathologic uptake in some body regions could confound or obscure some pathology. * CT Dose-Length Product (DLP): 369 mGy*cm * CT Dose Reduction Employed: Yes * Injection site: Left Forearm-Antecubital * Injected activity: 8.4 mCi * Uptake Time: 60 minutes * Radiopharmaceutical: F-18 PSMA (Posluma) CORRELATION: CT abdomen and pelvis 11/18/2022 RESULT: REFERENCES: Uptake by the injected radiopharmaceutical serves as a surrogate marker for prostate-specific membrane antigen (PSMA) expression. All reported standardized uptake values represent maximum SUV (SUVmax) per body weight, unless otherwise specified. SUV Reference Values: * Background Salivary Gland: SUVmax 26 * Blood Pool (Descending Aorta): SUVmax 2 * Background Liver: SUVmax 7.4 Localizer Images: No additional findings. HEAD AND NECK: Head: No radiotracer avid lesion or mass effect in the intracranial compartment. Aerodigestive Tract: No radiotracer avid lesion. Lymph Nodes: No radiotracer avid lymphadenopathy. Neck Soft Tissues: No radiotracer avid thyroid nodule. Cervical spinal hardware. CHEST: Lungs & Pleura: No radiotracer avid mass, nodule, or consolidation. No pleural effusion. 6 mm right midlung nodule below the resolution Lymph Nodes: No radiotracer avid lymphadenopathy. Mediastinum: No radiotracer avid mass. Cardiovascular: Blood pool activity. No pericardial effusion. Normal heart size. Prominent ascending aorta. Chest Wall: No radiotracer avid soft tissue lesion. ABDOMEN AND PELVIS: Hepatobiliary: No radiotracer avid lesion. No measurable mass. Spleen: No radiotracer avid lesion. No splenomegaly. Pancreas: No radiotracer avid lesion. Adrenals: No radiotracer avid nodule. Urinary Tract: Physiologic radiotracer excretion in the urinary tract. No hydronephrosis. GI Tract: No radiotracer avid lesion. No bowel dilation. Peritoneum: No radiotracer avid lesion. No ascites. Lymph Nodes: * Abdomen (including common iliac): No radiotracer avid lymphadenopathy. * Pelvis (below common iliac): No radiotracer avid lymphadenopathy. Vasculature: Blood pool activity. Prostate & Seminal Vesicles: No radiotracer avid lesion. Pelvis Soft Tissues: No radiotracer avid lesion. Penile implant with adjacent nonavid collection in the subcutaneous right lower MUSCULOSKELETAL: Bones: Avid uptake in the left acetabulum left iliac bone with sclerotic (max SUV 10.5) likely osseous metastatic disease Mild activity with degenerative changes in the lumbar spine. Soft Tissues: No radiotracer avid lesion. [facility] RADIOLOGY Provider, [facility]ure[facility] - 07/07/2024 * * *Final Report* * * DATE OF EXAM: Jul 07 2024 11:12AM [facility] 0093 - NM PET/CT PROSTATE WB / PROCEDURE REASON: multiple diagnoses * * * * Physician Interpretation * * * * EXAMINATION: PROSTATE-SPECIFIC MEMBRANE ANTIGEN PET-CT CLINICAL HISTORY: Prostate cancer elevated. * Prostate Cancer Grade: * PSA: 0.62 ng/mL 07/05/2024 * Previous Therapy: Radiation therapy, Lupron EXAM CATEGORY: Subsequent treatment strategy. TECHNIQUE: Radiopharmaceutical was administered intravenously followed later on by PET imaging from the skull vertex to thighs. Free breathing, low dose CT of the same body region was acquired without IV contrast for attenuation correction and anatomic localization. Unenhanced imaging is limited for the evaluation of some pathology and the acquired CT was not designed to produce diagnostic CT scan quality. Physiologic/non-pathologic uptake in some body regions could confound or obscure some pathology. * CT Dose-Length Product (DLP): 369 mGy*cm * CT Dose Reduction Employed: Yes * Injection site: Left Forearm-Antecubital * Injected activity: 8.4 mCi * Uptake Time: 60 minutes * Radiopharmaceutical: F-18 PSMA (Posluma) CORRELATION: CT abdomen and pelvis 11/18/2022 RESULT: REFERENCES: Uptake by the injected radiopharmaceutical serves as a surrogate marker for prostate-specific membrane antigen (PSMA) expression. All reported standardized uptake values represent maximum SUV (SUVmax) per body weight, unless otherwise specified. SUV Reference Values: * Background Salivary Gland: SUVmax 26 * Blood Pool (Descending Aorta): SUVmax 2 * Background Liver: SUVmax 7.4 Localizer Images: No additional findings. HEAD AND NECK: Head: No radiotracer avid lesion or mass effect in the intracranial compartment. Aerodigestive Tract: No radiotracer avid lesion. Lymph Nodes: No radiotracer avid lymphadenopathy. Neck Soft Tissues: No radiotracer avid thyroid nodule. Cervical spinal hardware. CHEST: Lungs & Pleura: No radiotracer avid mass, nodule, or consolidation. No pleural effusion. 6 mm right midlung nodule below the resolution Lymph Nodes: No radiotracer avid lymphadenopathy. Mediastinum: No radiotracer avid mass. Cardiovascular: Blood pool activity. No pericardial effusion. Normal heart size. Prominent ascending aorta. Chest Wall: No radiotracer avid soft tissue lesion. ABDOMEN AND PELVIS: Hepatobiliary: No radiotracer avid lesion. No measurable mass. Spleen: No radiotracer avid lesion. No splenomegaly. Pancreas: No radiotracer avid lesion. Adrenals: No radiotracer avid nodule. Urinary Tract: Physiologic radiotracer excretion in the urinary tract. No hydronephrosis. GI Tract: No radiotracer avid lesion. No bowel dilation. Peritoneum: No radiotracer avid lesion. No ascites. Lymph Nodes: * Abdomen (including common iliac): No radiotracer avid lymphadenopathy. * Pelvis (below common iliac): No radiotracer avid lymphadenopathy. Vasculature: Blood pool activity. Prostate & Seminal Vesicles: No radiotracer avid lesion. Pelvis Soft Tissues: No radiotracer avid lesion. Penile implant with adjacent nonavid collection in the subcutaneous right lower MUSCULOSKELETAL: Bones: Avid uptake in the left acetabulum left iliac bone with sclerotic (max SUV 10.5) likely osseous metastatic disease Mild activity with degenerative changes in the lumbar spine. Soft Tissues: No radiotracer avid lesion. IMPRESSION IMPRESSION: PROSTATE: * No PSMA expressing prostate lesion. NEREIDA DISEASE: * No PSMA expressing pelvic lymphadenopathy. METASTATIC DISEASE: * Avid uptake in the left bony pelvis likely representing PSMA expressing osseous metastases Header Operator: PSCB Transcribe Date/Time: Jul 07 2024 6:03P Dictated by : DARIANA MENENDEZ MD This examination was interpreted and the report reviewed and electronically signed by: DARIANA MENENDEZ MD on Jul 07 2024 6:31PM EST [facility] Radiology Study observation (narrative) [facility] PET+CT Guidance for localiza tion of tumor of Whole body-- W 18F-FDG IVOrdered By: [facility] Provider on 07-07-2024 [facility] CNOVSPon 07-05-2024 CNOVSP Visit (SP) Office (H EMAWS) -- LUIS ANGEL AGUILA ([id number]) 1955 M Date Time Provider Department 07/05/24 8:50 AM MONICA JUNG During your visit today, we recorded the following information about you: Temperature Pulse Blood pressure Weight 97.6 degrees 66/minute 105/64 79.6 kg Monica Jung DO 07/05/2024 9:21 AM Signed Oncologic problem(s): 1) Castrate sensitive prostate cancer. HPI: The patient is a 69-year-old male with past medical history significant for hyperlipidemia, hypertension, moderate COPD, GERD, previous cervical spine surgery, chronic low back pain and prostate cancer. Developed gross hematuria. PSA 50s. RP with penile implant. Bladder tear about a month later. PET--recurrence in prostate bed. 06/2021 4 weeks RT in [place] with GnRH agonist treatment (Lupron). Stopped due to side effects--Severe diarrhea and n/v. PSA undetectable 06/2022. Presumably from Lupron. CT A/P 11/18/2022: IMPRESSION: 1. Postoperative ileus versus changes of early small bowel obstruction within the right pelvis as discussed above. Short-term follow-up suggested. 2. Changes of recent prostatectomy and penile implant. There is a 6.0 x 2.7 x 9.5 cm nonencapsulated postoperative fluid collection within the right lower quadrant subcutaneous fat adjacent to the penile pump. 3. Mild free fluid. 4. Sacral insufficiency fractures. Medically managed for SBO. Saw Dr. Ariza at 11/10/2023: -Assessment/Plan I personally saw patient and counselled all visit on his diagnosis, kamilla history and coordination of his care. This is a 68 y.o. male man known with LN+ PC on ADT (d/c zytiga/pred and apa s/t AEs) with T > 50 and low PSA and negative recent PSMA (June 2022). He had incomplete salvage XRT but aborted s/t bowel tox. He is discontinuing ADT per pt preference - understands R/A of this decision. He was found with some lung abn, but PET was negative and bronch results pending. He is smoker. Will call him in few weeks to Fup on bronch results We discussed the clinical significance of diagnosis, goals of care and treatment plan in detail. Thank you for the opportunity to be involved in the care of Luis Angel Aguila. Please do not hesitate to reach out with any questions. Thank you. Path was negative. Per recent note from [facility] -Follow up sp EGD with biopsies 11/26/2023. 1 cm circumferential salmon colored mucosa seen at the GE junction at the time of EGD, consistent with short segment Oliver's esophagus. 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 We discussed the etiology of Oliver's and need for continued endoscopic surveillance due to risk of malignancy. Recommend patient continue on his PPI/H2 nabil, repeat EGD in 5 years for surveillance. Presents for ongoing oncologic management. Interim history: Had a PSMA PET scan done at . Impression: 1. Status post prostatectomy without focally increased Ga68 PSMA expression within the prostate gland to suggest local recurrence. 2. Mild PSMA-avid sub-centimeter aortocaval lymph node, nereida metastasis cannot be excluded. Production Weigher images sent to PACS for review. 3. Mild PSMA expression within the lung nodule along right heart border which was not FDG avid on PET dated 10/01/2023, non-specific. Continued attention on follow-up imaging is recommended. 4. Mild Ga68 PSMA-avid within right iliac bone lesion, although not typical for prosthetic bone metastasis, continued attention on follow-up imaging is recommended. I'm not doing anymore of those shots. Hot flashes resolved. No symptoms of LUTS. LBP significantly improved after epidural injection. 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 1/2 to 1 tablet po qhs as needed for spasm atenolol (TENORMIN) 50 mg tablet Take one tablet daily along with 25 mg tablet to equal 75 mg daily atorvastatin (LIPITOR) 40 mg tablet Take 1 tablet by mouth daily at bedtime. For cholesterol. lisinopril (ZESTRIL) 40 mg tablet Take 1 tablet by mouth once lalit (more content not included)... Normal [facility] PSA SerPl-ncon 07-05-2024 Prostate specific Ag [Mass/Vol] 0.62 ng/mL Normal <2.60 [facility] Comment on above: Order Comment: Speci men Type: BLOOD SPECIMEN Ordering Facility: [facility] Address: [address] [place] [address] Result Comment: Colt jiménez PSA test methodology used is the Electrochemiluminescence Immunoassay by [employer]. Total PSA values by differing methodologies cannot be interchanged. Performed By: #### 2 4321-2 #### [facility] CLIA [id number] [address] [place] [address] [place] Testost SerPl-mCncon 025 Testosterone [Mass/Vol] 800 ng/dL Normal 193-824 [facility] Comment on above: Order Comment: Speci men Type: BLOOD SPECIMENOrdering Facility: [facility] Address: [address] [place] [address] Result Comment: A te stosterone level in the 193-320 ng/dL range with associated clinical symptoms is considered low and may indicate hypogonadism (from NEJ 2010 363:123-135). Results >320 ng/dL are considered normal. Performed By: #### 2 986-8 ####[facility] [id number] [place] [id number] [place] [facility] CNCOon 06-17-2024 CNCO Letter Text Normal [facility] CNOVon 06-17-2024 CNOV Office Visit (SPAGWO ) -- LUIS ANGEL AGUILA ([id number]) 1955 Date Time Provider Department 06/17/24 10:45 AM ALINA BRYSON During your visit today, we recorded the following information about you: Pulse Respiration 69/minute 16/minute Lizabeth Araiza LPN 06/17/2024 12:32 PM Signed Review of Systems Constitutional: Negative for activity change, chills, fever and unexpected weight change. Genitourinary: Negative for difficulty urinating. Musculoskeletal: Positive for arthralgias, back pain, joint swelling, myalgias, neck pain and neck stiffness. Negative for gait problem. Neurological: Positive for weakness. Negative for numbness and headaches. Psychiatric/Behavioral: Negative for dysphoric mood, sleep disturbance and suicidal ideas. The patient is not nervous/anxious. Alina Bryson APRN.TOOL GRINDER SET UP OPERATOR GEAR 06/17/2024 12:32 PM Signed [facility] Today's Date: 06/17/2024 Name: Luis Angel Ayla : 1955 Purpose: Follow-up Patient Evaluation - This is an established patient, returning today for continued evaluation and management of the chief complaint noted below Chief complaint: hip pain and back pain Referring Clinician: Self Pertinent Past Medical History: Hypertension (HTN), Hyperlipidemia (HLD), COPD , Gastroesophageal Reflux Disease (GERD), Ileus (11/2022), 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 node, OA multiple joints, Nicotine use disorder, Pertinent Past Surgeries: Cervical fusion, Bilat shoulder surgery Plan at last visit: (Seen on 03/11/2024 by Alina Bryson CNP) IMPRESSION: 69 year old male presents with complaint(s) of Low back pain with radicular symptoms. Patient is also suffering from a acute left hip pain due to a recent fall. I reviewed the results of the x-ray and reassess the patient continues to appear to be left greater trochanter bursitis and sending the patient up for an injection to see if that will help with the pain. This was explained to both the patient and his and they appear to understand. Diagnoses: (M70.62) Trochanteric bursitis of left hip (primary encounter diagnosis) (M54.16) Lumbar radiculopathy (M47.816) Lumbar spondylosis (M48.062) Spinal stenosis of lumbar region with neurogenic claudication (M25.552) Pain in left hip PLAN: Luis Angel Aguila would benefit from the following to reach personal goals for decreasing pain, improving function and work participation, and/or improving quality of life: Medications: Requested Prescriptions No prescriptions requested or ordered in this encounter Continue lyrica will increase to tid , 1 in am and 2 at bedtime. Interventional Procedures: Greater Trochanteric Bursal Injection under fluoroscopic guidance LEFT-SIDED at N/A Radio Recorder Needed: Joint Injection - NO (Exception: SI Joint - YES) Anticoagulant - Hold Needed: N/A (Not currently on Anticoagulants) Anticoagulant - Currently Taking: None Allergies (relevant): None Scheduling - Mobility (Can Patient independently transfer on/off an OR or Procedure table?): YES (May schedule at any location) Scheduling - Additional Info: None Studies: X-ray: Hip (Left) reviewed Functional Taoism: Continue home exercises from Chiropractics Referrals: No additional considerations at present Follow-up:2 months Depending on response to the above plan, consider: Right GT bursa injection and/or TPI Interval History: Overall pain and functional disability since last visit: Unchanged New Complaints since last visit: No Pain Description: Timing: Constant Character: Sharp Primary Location: left hip Radiation: left groin Exacerbating factors: getting up from sitting Relieving factors: sitting Interferes with: physical activity The patient reports leg weakness On 05/11/2024 pt had a left GTB CSI reporting 85% relief. Patient stating that his hip is feeling much better. States after the exacerbation from jumping off of a wagon his pain is much better and he is trying to avoid activities that may aggravate him. Patient states he is now complaining of low back pain again. States is not to the severity it was prior to the last injection but he is having this pain. Patient stating he feels the last injection worked much better than the radiofrequency ablation. Patient stating that most of the pain is in his low back not going down his leg. Current Pain Medications: Neuropathics: lyrica NSAIDS: Muscle Relaxants: Topicals: Other Prescription or OTC Pain Medications: tylenol Opioids (when applicable): Anti-depressants or Mood-Stabilizers: None Anti-Coagulants: None Therapies Attended (Current or Most Recent): No Current Therapies (more content not included)... Normal [facility] Ernesto 06-17-2024 JAMESN Telephone (SPAGWO) -- LUIS ANGEL AGUILA ([id number]) 1955 M Date Time Provider Department 06/17/24 ALINA BRYSON During your visit today, we recorded the following information about you: Dominic Yuan 06/17/2024 10:46 AM Signed Procedure(s) being scheduled: Lumbar ILESI 1.Are you diabetic No 2. Are you on any blood thinners? No 3. Are you taking any aspirin? Yes. Please list the current medications being prescribed 81mg. 4. Are you currently taking any antibiotics? No 5. Do you have any allergies to latex? No 6. Do you have any allergies to seafood or shellfish? No 7. Do you have any allergies to x-ray dye? No 8. Does this procedure require a delivery route driver? Yes If yes, has patient been notified that a delivery route driver is needed and must be present at check in? yes 9. Were the pre-procedure instructions explained and provided to the patient? Yes 10. Do you have a pacemaker? No 11. Do you have an internal stimulator of any kind? No Dominic Yuan Allergies As of Date: 06/17/2024 Noted Allergy Reaction MORPHINE 10/25/2022 2 - Rash 9 - Itching PREDNISONE 10/25/2022 1 - Mental Status Change Date Reviewed: 06/17/2024 Reviewed by: Alina Bryson APRN.TOOL GRINDER SET UP OPERATOR GEAR - Fully Assessed Reason for Visit: Injections [199] Prescriptions as of 06/17/2024 - pregabalin (LYRICA) 100 mg capsule Take 1 capsule by mouth three times a day for 180 days. - albuterol HFA (VENTOLIN HFA) 90 mcg/actuation inhaler Inhale 2 Puffs as instructed every 4 hours as needed for wheezing/shortness of breath. - atenolol (TENORMIN) 50 mg tablet Take one tablet daily along with 25 mg tablet to equal 75 mg daily - atorvastatin (LIPITOR) 40 mg tablet Take 1 tablet by mouth daily at bedtime. For cholesterol. - lisinopril (ZESTRIL) 40 mg tablet Take 1 tablet by mouth once daily. - omeprazole (PRILOSEC) 40 mg capsule Take 1 capsule by mouth two times a day. - tiotropium-olodaterol (STIOLTO RESPIMAT) 2.5-2.5 mcg/actuation inhaler Inhale 2 Puffs as instructed once daily. - famotidine (PEPCID) 40 mg tablet Take 40 mg by mouth once daily. - cyclobenzaprine (FLEXERIL) 10 mg tablet Take 1 tablet by mouth as directed. 1/2 to 1 tablet po qhs as needed for spasm - acetaminophen (TYLENOL EXTRA STRENGTH) 500 mg tablet Take 1,000 mg by mouth every 8 hours as needed. - pregabalin (LYRICA) 75 mg capsule Take one pill twice daily - aspirin, enteric coated (ASPIRIN, ENTERIC COATED) 81 mg EC tablet Take 81 mg by mouth once daily. - docusate sodium (STOOL SOFTENER) 100 mg capsule Take 100 mg by mouth twice daily. - cholecalciferol (VITAMIN D-3) 50 mcg (2,000 unit) tablet Take 2,000 Units by mouth once daily. - beta-carotene,A,-vits C,E/mins (OCUVITE ORAL) Take 1 tablet by mouth once daily. - calcium carbonate (CALCIUM 600 ORAL) Take 1 tablet by mouth once daily. - Multivitamin capsule Take 1 capsule by mouth once daily. Problem List As Of Date 06/17/2024 Noted Resolved Small bowel obstruction (HCC) [K56.609] 11/19/2022 GI bleed [K92.2] 11/19/2022 Nicotine use disorder, F17.2 [F17.200] 11/20/2022 Ileus (HCC) [K56.7] 11/20/2022 Screening for colon cancer [Z12.11] 12/12/2022 Prostate cancer metastatic to intraabdominal ly*01/31/2023 Osteoarthritis of multiple joints [M15.9] 01/31/2023 Mixed hyperlipidemia [E78.2] 01/31/2023 GERD (gastroesophageal reflux disease) [K21.9] 01/31/2023 Essential hypertension [I10] 01/31/2023 COPD (chronic obstructive pulmonary disease) (H*01/31/2023 Encounter Status:Closed by DOMINIC YUAN on 06/17/24 [facility] Ernesto 06-04-2024 JAMESN Telephone (AGSPINE3) -- LUIS ANGEL AGUILA ([id number]) 1955 M Date Time Provider Department 06/04/24 ALINA BRYSON AGSPINE3 During your visit today, we recorded the following information about you: Grace Leo LPN 06/04/2024 4:07 PM Signed Voicemail received from patient's stating that when patient had an office visit with Alina approximately 2-3 wks ago they discussed increasing his lyrica from one time a day to 3 times a day. states that the medication was to be called into [facility] on [address] in [place].She states that they went to [facility] pickup his medication today but they said they didn't have it.. states he is out of his medication early d/t increasing the dose to 3 times a day. Please advise. JUAN MANUEL Velarde Lisa, APRN.TOOL GRINDER SET UP OPERATOR GEAR 06/04/2024 4:15 PM Signed Chart reviewed, script sent, pt notified Alina Bryson APRN.TOOL GRINDER SET UP OPERATOR GEAR 06/04/2024 4:16 PM Signed Addended by: ALINA BRYSON on: 06/04/2024 04:16 PM Modules accepted: Orders Allergies As of Date: 06/04/2024 Noted Allergy Reaction MORPHINE 10/25/2022 2 - Rash 9 - Itching PREDNISONE 10/25/2022 1 - Mental Status Change Date Reviewed: 05/31/2024 Reviewed by: Leo Stanley LPN - Fully Assessed Visit Diagnosis:Spinal stenosis of lumbar region with neurogenic claudication [M48.062] Order(s):pregabalin (LYRICA) 100 mg capsuleTake 1 capsule by mouth three times a day for 180 days.Disp: 90 capsuleRfl: 5 Prescriptions as of 06/04/2024 - pregabalin (LYRICA) 100 mg capsule Take 1 capsule by mouth three times a day for 180 days. - albuterol HFA (VENTOLIN HFA) 90 mcg/actuation inhaler Inhale 2 Puffs as instructed every 4 hours as needed for wheezing/shortness of breath. - atenolol (TENORMIN) 50 mg tablet Take one tablet daily along with 25 mg tablet to equal 75 mg daily - atorvastatin (LIPITOR) 40 mg tablet Take 1 tablet by mouth daily at bedtime. For cholesterol. - lisinopril (ZESTRIL) 40 mg tablet Take 1 tablet by mouth once daily. - omeprazole (PRILOSEC) 40 mg capsule Take 1 capsule by mouth two times a day. - tiotropium-olodaterol (STIOLTO RESPIMAT) 2.5-2.5 mcg/actuation inhaler Inhale 2 Puffs as instructed once daily. - famotidine (PEPCID) 40 mg tablet Take 40 mg by mouth once daily. - cyclobenzaprine (FLEXERIL) 10 mg tablet Take 1 tablet by mouth as directed. 1/2 to 1 tablet po qhs as needed for spasm - acetaminophen (TYLENOL EXTRA STRENGTH) 500 mg tablet Take 1,000 mg by mouth every 8 hours as needed. - pregabalin (LYRICA) 75 mg capsule Take one pill twice daily - aspirin, enteric coated (ASPIRIN, ENTERIC COATED) 81 mg EC tablet Take 81 mg by mouth once daily. - docusate sodium (STOOL SOFTENER) 100 mg capsule Take 100 mg by mouth twice daily. - cholecalciferol (VITAMIN D-3) 50 mcg (2,000 unit) tablet Take 2,000 Units by mouth once daily. - beta-carotene,A,-vits C,E/mins (OCUVITE ORAL) Take 1 tablet by mouth once daily. - calcium carbonate (CALCIUM 600 ORAL) Take 1 tablet by mouth once daily. - Multivitamin capsule Take 1 capsule by mouth once daily. Problem List As Of Date 06/04/2024 Noted Resolved Small bowel obstruction (HCC) [K56.609] 11/19/2022 GI bleed [K92.2] 11/19/2022 Nicotine use disorder, F17.2 [F17.200] 11/20/2022 Ileus (HCC) [K56.7] 11/20/2022 Screening for colon cancer [Z12.11] 12/12/2022 Prostate cancer metastatic to intraabdominal ly*01/31/2023 Osteoarthritis of multiple joints [M15.9] 01/31/2023 Mixed hyperlipidemia [E78.2] 01/31/2023 GERD (gastroesophageal reflux disease) [K21.9] 01/31/2023 Essential hypertension [I10] 01/31/2023 COPD (chronic obstructive pulmonary disease) (H*01/31/2023 Prescriptions ordered this encounter Disp Refills Start End PREGABALIN 100 MG CAPSULE 90 c* 5 06/04/2024 12/01/2024 Route: ORAL Sig: Take 1 capsule by mouth three times a day for 180 days. Medications Discontinued During This Encounter Prescriptions - pregabalin (LYRICA) 100 mg capsule (Discontinued) Take 1 capsule by mouth two times a day for 180 days. Encounter Status:Closed by GRACE LEO on 06/04/24 [facility] US OTHER-INJECTION (POC) AC USE ONLYon 05-31-2024 [facility] CNCOon 05-20-2024 CNCO Letter Text [facility] CNOVon 05-20-2024 CNOV Office Visit (SPAGWO ) -- LUIS ANGEL AGUILA ([id number]) 1955 M Date Time Provider Department 05/20/24 1:45 PM ALINA BRYSON During your visit today, we recorded the following information about you: Pulse Respiration [facility] CNPNon 05-20-2024 CNPN Telephone (SPAGWO) -- LUIS ANGEL AGUILA ([id number]) 1955 M Date Time Provider Department 05/20/24 ALINA BRYSON During your visit today, we recorded the following information about you: Dominic Yuan 05/20/2024 2:25 PM Signed Procedure(s) being scheduled: Left GTB 1.Are you diabetic No 2. Are you on any blood thinners? No 3. Are you taking any aspirin? Yes. Please list the current medications being prescribed 81mg. 4. Are you currently taking any antibiotics? No 5. Do you have any allergies to latex? No 6. Do you have any allergies to seafood or shellfish? No 7. Do you have any allergies to x-ray dye? No 8. Does this procedure require a delivery route driver? No 9. Were the pre-procedure instructions explained and provided to the patient? Yes 10. Do you have a pacemaker? No 11. Do you have an internal stimulator of any kind? Yes If yes, please bring the remote with you to your procedure visit. Dominic Yuan Allergies As of Date: 05/20/2024 Noted Allergy Reaction MORPHINE 10/25/2022 2 - Rash 9 - Itching PREDNISONE 10/25/2022 1 - Mental Status Change Date Reviewed: 05/20/2024 Reviewed by: Alina Bryson APRN.TOOL GRINDER SET UP OPERATOR GEAR - Fully Assessed Reason for Visit: Injections [199] Prescriptions as of 05/20/2024 - pregabalin (LYRICA) 100 mg capsule Take 1 capsule by mouth two times a day for 180 days. - albuterol HFA (VENTOLIN HFA) 90 mcg/actuation inhaler Inhale 2 Puffs as instructed every 4 hours as needed for wheezing/shortness of breath. - atenolol (TENORMIN) 50 mg tablet Take one tablet daily along with 25 mg tablet to equal 75 mg daily - atorvastatin (LIPITOR) 40 mg tablet Take 1 tablet by mouth daily at bedtime. For cholesterol. - lisinopril (ZESTRIL) 40 mg tablet Take 1 tablet by mouth once daily. - omeprazole (PRILOSEC) 40 mg capsule Take 1 capsule by mouth two times a day. - tiotropium-olodaterol (STIOLTO RESPIMAT) 2.5-2.5 mcg/actuation inhaler Inhale 2 Puffs as instructed once daily. - famotidine (PEPCID) 40 mg tablet Take 40 mg by mouth once daily. - cyclobenzaprine (FLEXERIL) 10 mg tablet Take 1 tablet by mouth as directed. 1/2 to 1 tablet po qhs as needed for spasm - acetaminophen (TYLENOL EXTRA STRENGTH) 500 mg tablet Take 1,000 mg by mouth every 8 hours as needed. - pregabalin (LYRICA) 75 mg capsule Take one pill twice daily - aspirin, enteric coated (ASPIRIN, ENTERIC COATED) 81 mg EC tablet Take 81 mg by mouth once daily. - docusate sodium (STOOL SOFTENER) 100 mg capsule Take 100 mg by mouth twice daily. - cholecalciferol (VITAMIN D-3) 50 mcg (2,000 unit) tablet Take 2,000 Units by mouth once daily. - beta-carotene,A,-vits C,E/mins (OCUVITE ORAL) Take 1 tablet by mouth once daily. - calcium carbonate (CALCIUM 600 ORAL) Take 1 tablet by mouth once daily. - Multivitamin capsule Take 1 capsule by mouth once daily. Problem List As Of Date 05/20/2024 Noted Resolved Small bowel obstruction (HCC) [K56.609] 11/19/2022 GI bleed [K92.2] 11/19/2022 Nicotine use disorder, F17.2 [F17.200] 11/20/2022 Ileus (HCC) [K56.7] 11/20/2022 Screening for colon cancer [Z12.11] 12/12/2022 Prostate cancer metastatic to intraabdominal ly*01/31/2023 Osteoarthritis of multiple joints [M15.9] 01/31/2023 Mixed hyperlipidemia [E78.2] 01/31/2023 GERD (gastroesophageal reflux disease) [K21.9] 01/31/2023 Essential hypertension [I10] 01/31/2023 COPD (chronic obstructive pulmonary disease) (H*01/31/2023 Encounter Status:Closed by DOMINIC YUAN on 05/20/24 [facility] Ernesto 05-17-2024 BIGG Telephone (AGSPINE3) -- LUIS ANGEL AGUILA ([id number]) 1955 M Date Time Provider Department 05/17/24 ALINA BRYSON AGSPINE3 During your visit today, we recorded the following information about you: Hazel Nicholson 05/17/2024 1:16 PM Signed 05/17/24- patient called asking to schedule an appointment with Alina to discuss another injection or TPI because he's still in pain. Scheduled him on 05/20/24 with Alina in the [place] office. Patient is aware this appointment is not for injections but to discuss . Hazel Nicholson Allergies As of Date: 05/17/2024 Noted Allergy Reaction MORPHINE 10/25/2022 2 - Rash 9 - Itching PREDNISONE 10/25/2022 1 - Mental Status Change Date Reviewed: 05/13/2024 Reviewed by: Alina Bryson APRN.TOOL GRINDER SET UP OPERATOR GEAR - Fully Assessed Reason for Visit: Appointment [186] Prescriptions as of 05/17/2024 - pregabalin (LYRICA) 100 mg capsule Take 1 capsule by mouth two times a day for 180 days. - methylPREDNISolone (MEDROL, SWEETIE,) 4 mg Dose-Pack As pkg directs - albuterol HFA (VENTOLIN HFA) 90 mcg/actuation inhaler Inhale 2 Puffs as instructed every 4 hours as needed for wheezing/shortness of breath. - atenolol (TENORMIN) 50 mg tablet Take one tablet daily along with 25 mg tablet to equal 75 mg daily - atorvastatin (LIPITOR) 40 mg tablet Take 1 tablet by mouth daily at bedtime. For cholesterol. - lisinopril (ZESTRIL) 40 mg tablet Take 1 tablet by mouth once daily. - omeprazole (PRILOSEC) 40 mg capsule Take 1 capsule by mouth two times a day. - tiotropium-olodaterol (STIOLTO RESPIMAT) 2.5-2.5 mcg/actuation inhaler Inhale 2 Puffs as instructed once daily. - famotidine (PEPCID) 40 mg tablet Take 40 mg by mouth once daily. - cyclobenzaprine (FLEXERIL) 10 mg tablet Take 1 tablet by mouth as directed. 1/2 to 1 tablet po qhs as needed for spasm - acetaminophen (TYLENOL EXTRA STRENGTH) 500 mg tablet Take 1,000 mg by mouth every 8 hours as needed. - pregabalin (LYRICA) 75 mg capsule Take one pill twice daily - aspirin, enteric coated (ASPIRIN, ENTERIC COATED) 81 mg EC tablet Take 81 mg by mouth once daily. - docusate sodium (STOOL SOFTENER) 100 mg capsule Take 100 mg by mouth twice daily. - cholecalciferol (VITAMIN D-3) 50 mcg (2,000 unit) tablet Take 2,000 Units by mouth once daily. - beta-carotene,A,-vits C,E/mins (OCUVITE ORAL) Take 1 tablet by mouth once daily. - calcium carbonate (CALCIUM 600 ORAL) Take 1 tablet by mouth once daily. - Multivitamin capsule Take 1 capsule by mouth once daily. Problem List As Of Date 05/17/2024 Noted Resolved Small bowel obstruction (HCC) [K56.609] 11/19/2022 GI bleed [K92.2] 11/19/2022 Nicotine use disorder, F17.2 [F17.200] 11/20/2022 Ileus (HCC) [K56.7] 11/20/2022 Screening for colon cancer [Z12.11] 12/12/2022 Prostate cancer metastatic to intraabdominal ly*01/31/2023 Osteoarthritis of multiple joints [M15.9] 01/31/2023 Mixed hyperlipidemia [E78.2] 01/31/2023 GERD (gastroesophageal reflux disease) [K21.9] 01/31/2023 Essential hypertension [I10] 01/31/2023 COPD (chronic obstructive pulmonary disease) (H*01/31/2023 Encounter Status:Closed by HAZEL NICHOLSON on 05/17/[address] [facility] [address] CHEST LOW DOSE LUNG DIAGN OSTIC - ONLY LCSPon 05-17-2024 CT CHEST LOW DOSE LUNG DIAGNOSTIC - ONLY LCSP EXAMINATION: CT CHEST LOW DOSE LUNG DIAGNOSTIC - ONLY LCSP HISTORY: ORDERING SYSTEM PROVIDED HISTORY: Lung nodule, 6-8mm, TECHNOLOGIST PROVIDED HISTORY: Illness/Other Reason for exam: Lung nodule, 6-8mm, Lung nodule Encounter Type: Subsequent/Follow-up Additional signs and symptoms: n ORDERING SYSTEM PROVIDED DIAGNOSIS CODES: R91.1 Lung nodule COMPARISON: CT chest dated 01/12/2024, 10/10/2023, 08/21/2023. PET-CT dated 10/01/2023. TECHNIQUE: Dose reduction techniques were achieved by using automated exposure control and/or adjustment of mA and/or kV according to patient size and/or use of iterative reconstruction technique. Multiaxial CT images are obtained of the chest using low dose technique without contrast. Sagittal and coronal reformats are provided by the technologist. Axial MIP reconstructions are also provided. FINDINGS: Lower neck: The visualized thyroid is normal. No bulky lower cervical or axillary lymphadenopathy. Mediastinum: Ectasia of the ascending thoracic aorta measuring up to 4.1 cm, unchanged. Heart size is normal. No pericardial effusion. No bulky mediastinal or perihilar lymphadenopathy. Mild calcified coronary artery disease. Lungs: Moderate upper lung predominant emphysema. No pneumothorax, pleural effusion, or focal consolidation. A 1.5 x 1.2 cm juxta cardial nodule within the right middle lobe measuring 15 x 12 mm is unchanged. A 6 mm solid nodule adjacent to the right minor fissure within the right middle lobe, series 3, image 93 is also unchanged. A 4 mm solid nodule within the left lower lobe, series 3, image 120 is unchanged. Several additional sub 3 mm nodules are scattered bilaterally. No new or enlarging pulmonary nodules. Central airways are patent. Visualized upper abdomen: 15 mm right hepatic cyst. Vascular calcifications. Musculoskeletal: No acute or aggressive osseous lesions. IMPRESSION: Stable appearance of the multiple bilateral pulmonary nodules including a 1.5 x 1.2 cm juxta cardial nodule within the right middle lobe that did not demonstrate any FDG uptake. Recommend continued imaging surveillance with a repeat chest CT in 6 months. Moderate upper lung predominant emphysema. Mild calcified coronary artery disease. WTW/tde Workstation ID: [id number] Addended: FriMay 23, 2024 9:44 AM by Wilder Rogers DO ADDENDUM: Lung-RADS 3 - Probably Benign (v2022) Management: 6 month LDCT Workstation ID: [id number] Dictated by: WILDER ROGERS on [place] May 23, 2024 7:56:48 AM EST Transcribed by: MARIANNE CORDOVA on FriMay 23, 2024 8:01:18 AM EST Finalized by: WILDER ROGERS on Sun May 23, 2024 8:29:24 AM EST Normal [facility] Comment on above: Order Comment: Injur y/Trauma or Illness?:Illness/Other How long have you had these symptoms (acute/chronic)?:Chronic Reason for exam?:Lung nodule, 6-8mm, Lung nodule Type of Exam?:Subsequent/Follow-up Additional signs and symptoms?:n CNOVon 05-13-2024 CNOV Office Visit (SPAGWO ) -- LUIS ANGEL AGUILA ([id number]) 1955 Date Time Provider Department 05/13/24 9:30 AM ALINA BRYSON During your visit today, we recorded the following information about you: Pulse Respiration 68/minute 18/minute Lizabeth Araiza LPN 05/13/2024 9:55 AM Signed Review of Systems Constitutional: Positive for activity change. Negative for chills, fever and unexpected weight change. Genitourinary: Negative for difficulty urinating. Musculoskeletal: Positive for arthralgias, back pain, gait problem, joint swelling, myalgias, neck pain and neck stiffness. Neurological: Positive for numbness. Negative for weakness and headaches. Psychiatric/Behavioral: Negative for dysphoric mood, sleep disturbance and suicidal ideas. The patient is not nervous/anxious. Alina Bryson APRN.TOOL GRINDER SET UP OPERATOR GEAR 05/13/2024 9:55 AM Signed [facility] [place] Today's Date: 05/13/2024 Name: Luis Angel Aguila : 1955 Purpose: Follow-up Patient Evaluation - This is an established patient, returning today for continued evaluation and management of the chief complaint noted below Chief complaint: hip pain and back pain Referring Clinician: Self Pertinent Past Medical History: Hypertension (HTN), Hyperlipidemia (HLD), COPD , Gastroesophageal Reflux Disease (GERD), Ileus (11/2022), 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 node, OA multiple joints, Nicotine use disorder, Pertinent Past Surgeries: Cervical fusion, Bilat shoulder surgery Plan at last visit: (Seen on 03/11/2024 by Alina Bryson CNP) IMPRESSION: 69 year old male presents with complaint(s) of Low back pain with radicular symptoms. I reviewed the MRI with the lumbar spine with the patient at this point we will attempt to do an interlaminar epidural steroid injection at L5-S1. Patient is in agreement with this plan. We will also continue Lyrica however will increase it from 75 mg twice daily to 100 mg twice daily to see if the patient gets better relief. Medications: Requested Prescriptions Signed Prescriptions Disp Refills pregabalin (LYRICA) 100 mg capsule 60 capsule 2 Sig: Take 1 capsule by mouth two times a day for 90 days. Interventional Procedures: Epidural Steroid Injection - Interlaminar Approach (ILESI) under fluoroscopic guidance NONE at L5-S1 Radio Recorder Needed: Epidural - YES Anticoagulant - Hold Needed: N/A (Not currently on Anticoagulants) Anticoagulant - Currently Taking: None Allergies (relevant): None Scheduling - Mobility (Can Patient independently transfer on/off an OR or Procedure table?): YES (May schedule at any location) Scheduling - Additional Info: None Studies: MRI: Lumbar Spine was reviewed pt states understanding. Functional Taoism: Continue home exercises from Chiropractics Referrals: No additional considerations at present Follow-up:1 month after injection Depending on response to the above plan, consider: Right GT bursa injection and/or TPI Interval History: Overall pain and functional disability since last visit: Unchanged New Complaints since last visit: No 04/26/2024 patient had transforaminal epidural steroid injection from L5-S1 reporting 100% relief. Patient stating he was doing great. He was doing all the activities he normally does without having pain. Patient states last week he was loading a truck and he fell on ice and twisted. States he has had pain ever since and his left hip. Patient has had left hip x-rays in the past. Patient stating that his left hip pain is worse with ambulation. States pretty much the minute he stands up the pain increases in his hip stating the pain starts in the back of the hip and will go strongly into his groin and down the front of his thigh. This is all on the left side. Patient stating his back is feeling much better. Current Pain Medications: Neuropathics: lyrica NSAIDS: Muscle Relaxants: Topicals: Other Prescription or OTC Pain Medications: tylenol Opioids (when applicable): Anti-depressants or Mood-Stabilizers: None Anti-Coagulants: None Therapies Attended (Current or Most Recent): No Current Therapies 05/01/2023 03/11/2024 [facility] SPINE COMBINATION Questionnaire GREENLIGHT Completed Date 05/01/2023 Questionnaire Opiod Risk Tool Opiod Risk Tool Completed Date 05/01/2023 03/11/2024 Comments Low Risk 0 - Low Risk No question data found. (All drug screens are appropriate unless indicated otherwise) Notable Events During Course of Treatment: Interval History: Overall pain and functional disability since last visit: Better New Complaints since last visit: No PAIN DE (more content not included)... Normal [facility] XR HIP 3V PELV+ AP/LAT LTon 05-13-2024 XR HIP 3V PELV+ AP/LAT LT * * *Final Report* * * DATE OF EXAM: May 13 2024 10:03AM [id number] - XR HIP 3V PELV+ AP/LAT LT / PROCEDURE REASON: Pain in left hip * * * * Physician Interpretation * * * * XR HIP 3V PELV+ AP/LAT LT 05/13/2024 10:03 AM HISTORY: Pain in left hip TECHNIQUE: 2 view(s) of the left hip and AP view of the pelvis COMPARISON: No prior similar exams are available for comparison RESULT: Bone mineralization/ degenerative changes: Bone density grossly within normal limits. Severe degenerative change in the lower lumbar spine. Alignment of the osseous structures: The alignment appears anatomical without a subluxation or dislocation seen. Fractures: No acute fractures are seen. Soft tissues: No radiopaque foreign bodies are seen. Vascular calcifications are present. IMPRESSION: Unremarkable appearance of the left hip with no acute fracture or dislocation seen Header Operator: [facility] HOSPITALAnkit Transcribe Date/Time: May 15 2024 1:24P Dictated by : FERNANDO RIVAS MD This examination was interpreted and the report reviewed and electronically signed by: FERNANDO RIVAS MD on May 15 2024 1:24PM EST [id number] Normal [facility] PET CT PROSTATE PSMAon [place] PET CT PROSTATE PSMA Interpreted By: Dominic Stallworth and Kaur Arashdeep STUDY: NM PET CT PROSTATE PSMA; 04/27/2024 2:52 pm INDICATION: Signs/Symptoms:staging recurrent prostate cancer. 67-year-old male with a history of prostate cancer with Mets to pelvic lymph nodes diagnosed in 2020 status post prostatectomy on 04/20/2021. PSMA PET dated 05/29/2021: Lymph node positive with no distant disease. From 11/07/2021-12/07/2021 EBRT whole pelvis and prostate bed boost. ADT locally on 03/14/2023. FDG PET 11/10/2023 was negative. Serum PSA dated 03/15/2024:0.32, 03/05/2024: 0.33. ,C61 Malignant neoplasm of prostate (Multi) COMPARISON: FDG PET-CT dated 10/01/2023. ACCESSION NUMBER(S): [id number] ORDERING CLINICIAN: RODOLFO ARIZA TECHNIQUE: DIVISION OF NUCLEAR MEDICINE POSITRON EMISSION TOMOGRAPHY (PET-CT) The patient received an intravenous dose of 5.8 mCi of Ga68 PSMA Positron emission tomographic (PET) images from mid-thigh to skull vertex were then acquired after a delay of approximately 60 minutes. Also acquired was a contemporaneous noncontrast CT scan performed for attenuation correction of PET images and anatomic localization. The PET and CT images were digitally fused for display. All images were acquired on a combined PET-CT scanner unit. Some areas of PSMA accumulation may be described in standardized uptake value (SUV) units. FINDINGS: NECK AND CHEST: *Mild Ga68 PSMA uptake within bilateral axillary lymph nodes with SUV max 1.7 on left, likely non-specific. *Ga68 PSMA avid lung nodule along right heart border with a SUV max 2.5. *No abnormal Ga68 PSMA neck and mediastinal lymph nodes. *Physiologic activity is seen within the bilateral parotid and submandibular glands. ABDOMEN: *There is subcentimeter aortocaval lymph node with mild Ga68 PSMA uptake with a SUV max 2.5. *Intensely increased Ga68 PSMA uptake within the liver and the spleen, which is physiologic. *Physiologic activity is noted within bilateral kidneys. Physiologic tracer excretion into the small bowel. Photopenic hypodense cyst within right hepatic lobe PELVIS: *Status post prostatectomy with no focal increased Ga68 PSMA uptake within the postsurgical bed to suggest local recurrence. *No abnormal Ga68 PSMA uptake is seen within periprostatic and pelvic lymph nodes. MUSCULOSKELETAL: *Mild Ga68 PSMA activity with a SUV max 1.6 seen within right iliac bone lesion. IMPRESSION: 1. Status post prostatectomy without focally increased Ga68 PSMA expression within the prostate gland to suggest local recurrence. 2. Mild PSMA-avid sub-centimeter aortocaval lymph node, nereida metastasis cannot be excluded. Production Weigher images sent to PACS for review. 3. Mild PSMA expression within the lung nodule along right heart border which was not FDG avid on PET dated 10/01/2023, non-specific. Continued attention on follow-up imaging is recommended. 4. Mild Ga68 PSMA-avid within right iliac bone lesion, although not typical for prosthetic bone metastasis, continued attention on follow-up imaging is recommended. I personally reviewed the images/study and I agree with the findings as stated by Gulshan Fine MD. This study was interpreted at [facility], [place], [place]. MACRO: None Signed by: Dominic Stallworth 04/28/2024 10:47 AM Dictation workstation: [id number] [facility] CNOVSPon 03-18-2024 CNOVSP Visit (SP) Office (H EMAWS) -- LUIS ANGEL AGUILA ([id number]) 1955 M Date Time Provider Department 03/18/24 8:30 AM KAVON NINO During your visit today, we recorded the following information about you: Temperature Pulse Respiration Blood pressure 96.8 degrees 63/minute 12/minute 131/80 Weight 83.5 kg Kavon Nino 03/18/2024 11:40 AM Signed Luis Angel Aguila 1955 03/18/2024 Oncologic problem(s): 1) Castrate sensitive prostate cancer. HPI: The patient is a 68-year-old male with past medical history significant for hyperlipidemia, hypertension, moderate COPD, GERD, previous cervical spine surgery, chronic low back pain and prostate cancer. Developed gross hematuria. PSA 50s. RP with penile implant. Bladder tear about a month later. PET--recurrence in prostate bed. 06/2021 4 weeks RT in [place] with GnRH agonist treatment (Lupron). Stopped due to side effects--Severe diarrhea and n/v. PSA undetectable 06/2022. Presumably from Lupron. CT A/P 11/18/2022: IMPRESSION: 1. Postoperative ileus versus changes of early small bowel obstruction within the right pelvis as discussed above. Short-term follow-up suggested. 2. Changes of recent prostatectomy and penile implant. There is a 6.0 x 2.7 x 9.5 cm nonencapsulated postoperative fluid collection within the right lower quadrant subcutaneous fat adjacent to the penile pump. 3. Mild free fluid. 4. Sacral insufficiency fractures. Medically managed for SBO. Presents for ongoing oncologic management. Interim history: Saw Dr. Ariza at 11/10/2023: -Assessment/Plan I personally saw patient and counselled all visit on his diagnosis, kamilla history and coordination of his care. This is a 68 y.o. male man known with LN+ PC on ADT (d/c monetytninaa/pred and apa s/t AEs) with T > 50 and low PSA and negative recent PSMA (June 2022). He had incomplete salvage XRT but aborted s/t bowel tox. He is discontinuing ADT per pt preference - understands R/A of this decision. He was found with some lung abn, but PET was negative and bronch results pending. He is smoker. Will call him in few weeks to Fup on bronch results We discussed the clinical significance of diagnosis, goals of care and treatment plan in detail. Thank you for the opportunity to be involved in the care of Luis Angel Aguila. Please do not hesitate to reach out with any questions. Thank you. Path was negative. Per recent note from [facility] -Follow up sp EGD with biopsies 11/26/2023. 1 cm circumferential salmon colored mucosa seen at the GE junction at the time of EGD, consistent with short segment Oliver's esophagus. 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 We discussed the etiology of Oliver's and need for continued endoscopic surveillance due to risk of malignancy. Recommend patient continue on his PPI/H2 nabil, repeat EGD in 5 years for surveillance. Hot flashes resolved. No symptoms of LUTS. No change in chronic LBP. Interval Hx: Pt presents today for follow up and lab review with his spouse. He reports feeling well. [place] about [place], caught a good cold. Cough, sinus pressure almost entirely resolved at this time. Denies new issues. Denies new aches or pains, just old ones No SOB, CP, or palpitations. No CORTEZ, dizziness, or changes in vision. No changes in bowel or bladder habits. No rash or skin changes. Bleeding hemorrhoids, stable. Managing intermittent constipation has been ongoing issue. Reviewed PSA doubling time today as well as recommendation to resume ADT, pt declines. 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 albuterol HFA (VENTOLIN HFA) 90 mcg/actuation inhaler Inhale 2 Puffs as instructed every 4 hours as needed for wheezing/shortness of breath. atenolol (TENORMIN) 50 mg tablet Take one tablet daily along with 25 mg tablet to equal 75 mg daily atorvastatin (LIPITOR) 40 mg tablet Take 1 tablet by mouth daily at bedtime. For cholesterol. lisinopril (ZESTRIL) 40 mg (more content not included)... Normal [facility] PSA SerPl-ncon 03-15-2024 Prostate specific Ag [Mass/Vol] 0.32 ng/mL Normal <2.60 [facility] Comment on above: Order Comment: Speci men Type: BLOOD SPECIMEN Ordering Facility: [facility] Address: [address] [place] [address] Result Comment: Colt jiménez PSA test methodology used is the Electrochemiluminescence Immunoassay by [employer]. Total PSA values by differing methodologies cannot be interchanged. Performed By: #### 2 4321-2 #### [facility] [id number] [address] [place] [address] [place] CNPJania 03-12-2024 JAMESN Telephone (TAHIR) -- LUIS ANGEL AGUILA ([id number]) 1955 M Date Time Provider Department 03/12/24 KAVON NINO During your visit today, we recorded the following information about you: Chelsea Cazares LPN 03/12/2024 9:10 AM Signed Called pt to remind him that he needed to get his PSA drawn prior to his upcoming apt with Ankit Nino APRN. Spoke to . states pt needs apt rescheduled. Please contact pt to reschedule lab and apt. He can have his labs in [place] if he wishes. JUAN MANUEL Alfonso Kaitlyn 03/12/2024 9:20 AM Signed Called patient and got his appointment with Kavon Nino to [facility] Allergies As of Date: 03/12/2024 Noted Allergy Reaction MORPHINE 10/25/2022 2 - Rash 9 - Itching PREDNISONE 10/25/2022 1 - Mental Status Change Date Reviewed: 03/11/2024 Reviewed by: Alina Bryson APRN.TOOL GRINDER SET UP OPERATOR GEAR - Fully Assessed Reason for Visit: Appointment [186] Prescriptions as of 03/12/2024 - pregabalin (LYRICA) 100 mg capsule Take 1 capsule by mouth two times a day for 90 days. - albuterol HFA (VENTOLIN HFA) 90 mcg/actuation inhaler Inhale 2 Puffs as instructed every 4 hours as needed for wheezing/shortness of breath. - atenolol (TENORMIN) 50 mg tablet Take one tablet daily along with 25 mg tablet to equal 75 mg daily - atorvastatin (LIPITOR) 40 mg tablet Take 1 tablet by mouth daily at bedtime. For cholesterol. - lisinopril (ZESTRIL) 40 mg tablet Take 1 tablet by mouth once daily. - omeprazole (PRILOSEC) 40 mg capsule Take 1 capsule by mouth two times a day. - tiotropium-olodaterol (STIOLTO RESPIMAT) 2.5-2.5 mcg/actuation inhaler Inhale 2 Puffs as instructed once daily. - famotidine (PEPCID) 40 mg tablet Take 40 mg by mouth once daily. - cyclobenzaprine (FLEXERIL) 10 mg tablet Take 1 tablet by mouth as directed. 1/2 to 1 tablet po qhs as needed for spasm - acetaminophen (TYLENOL EXTRA STRENGTH) 500 mg tablet Take 1,000 mg by mouth every 8 hours as needed. - pregabalin (LYRICA) 75 mg capsule Take one pill twice daily - aspirin, enteric coated (ASPIRIN, ENTERIC COATED) 81 mg EC tablet Take 81 mg by mouth once daily. - docusate sodium (STOOL SOFTENER) 100 mg capsule Take 100 mg by mouth twice daily. - cholecalciferol (VITAMIN D-3) 50 mcg (2,000 unit) tablet Take 2,000 Units by mouth once daily. - beta-carotene,A,-vits C,E/mins (OCUVITE ORAL) Take 1 tablet by mouth once daily. - calcium carbonate (CALCIUM 600 ORAL) Take 1 tablet by mouth once daily. - Multivitamin capsule Take 1 capsule by mouth once daily. Problem List As Of Date 03/12/2024 Noted Resolved Small bowel obstruction (HCC) [K56.609] 11/19/2022 GI bleed [K92.2] 11/19/2022 Nicotine use disorder, F17.2 [F17.200] 11/20/2022 Ileus (HCC) [K56.7] 11/20/2022 Screening for colon cancer [Z12.11] 12/12/2022 Prostate cancer metastatic to intraabdominal ly*01/31/2023 Osteoarthritis of multiple joints [M15.9] 01/31/2023 Mixed hyperlipidemia [E78.2] 01/31/2023 GERD (gastroesophageal reflux disease) [K21.9] 01/31/2023 Essential hypertension [I10] 01/31/2023 COPD (chronic obstructive pulmonary disease) (H*01/31/2023 Encounter Status:Closed by HADLEY JONES on 03/12/24 [facility] Audra 03-11-2024 CNCO Letter Text Normal [facility] CNOVon 03-11-2024 CNOV Office Visit (SPAGWO ) -- LUIS ANGEL AGUILA ([id number]) 1955 M Date Time Provider Department 03/11/24 2:45 PM ALINA BRYSON During your visit today, we recorded the following information about you: Pulse Respiration Normal [facility] Ernesto 03-11-2024 CNPN Telephone (SPAGWO) -- LUIS ANGEL AGUILA ([id number]) 1955 Date Time Provider Department 03/11/24 ALINA BRYSON During your visit today, we recorded the following information about you: Dominic Yuan 03/11/2024 3:13 PM Signed Procedure(s) being scheduled: ILESI 1.Are you diabetic No 2. Are you on any blood thinners? No 3. Are you taking any aspirin? Yes. Please list the current medications being prescribed 81mg aspirin. 4. Are you currently taking any antibiotics? No 5. Do you have any allergies to latex? No 6. Do you have any allergies to seafood or shellfish? No 7. Do you have any allergies to x-ray dye? No 8. Does this procedure require a delivery route driver? Yes If yes, has patient been notified that a delivery route driver is needed and must be present at check in? yes 9. Were the pre-procedure instructions explained and provided to the patient? No 10. Do you have a pacemaker? No 11. Do you have an internal stimulator of any kind? Sherri Barillas Yuan Allergies As of Date: 03/11/2024 Noted Allergy Reaction MORPHINE 10/25/2022 2 - Rash 9 - Itching PREDNISONE 10/25/2022 1 - Mental Status Change Date Reviewed: 03/11/2024 Reviewed by: Alina Bryson APRN.TOOL GRINDER SET UP OPERATOR GEAR - Fully Assessed Reason for Visit: Injections [199] Prescriptions as of 03/11/2024 - pregabalin (LYRICA) 100 mg capsule Take 1 capsule by mouth two times a day for 90 days. - albuterol HFA (VENTOLIN HFA) 90 mcg/actuation inhaler Inhale 2 Puffs as instructed every 4 hours as needed for wheezing/shortness of breath. - atenolol (TENORMIN) 50 mg tablet Take one tablet daily along with 25 mg tablet to equal 75 mg daily - atorvastatin (LIPITOR) 40 mg tablet Take 1 tablet by mouth daily at bedtime. For cholesterol. - lisinopril (ZESTRIL) 40 mg tablet Take 1 tablet by mouth once daily. - omeprazole (PRILOSEC) 40 mg capsule Take 1 capsule by mouth two times a day. - tiotropium-olodaterol (STIOLTO RESPIMAT) 2.5-2.5 mcg/actuation inhaler Inhale 2 Puffs as instructed once daily. - famotidine (PEPCID) 40 mg tablet Take 40 mg by mouth once daily. - cyclobenzaprine (FLEXERIL) 10 mg tablet Take 1 tablet by mouth as directed. 1/2 to 1 tablet po qhs as needed for spasm - acetaminophen (TYLENOL EXTRA STRENGTH) 500 mg tablet Take 1,000 mg by mouth every 8 hours as needed. - pregabalin (LYRICA) 75 mg capsule Take one pill twice daily - aspirin, enteric coated (ASPIRIN, ENTERIC COATED) 81 mg EC tablet Take 81 mg by mouth once daily. - docusate sodium (STOOL SOFTENER) 100 mg capsule Take 100 mg by mouth twice daily. - cholecalciferol (VITAMIN D-3) 50 mcg (2,000 unit) tablet Take 2,000 Units by mouth once daily. - beta-carotene,A,-vits C,E/mins (OCUVITE ORAL) Take 1 tablet by mouth once daily. - calcium carbonate (CALCIUM 600 ORAL) Take 1 tablet by mouth once daily. - Multivitamin capsule Take 1 capsule by mouth once daily. Problem List As Of Date 03/11/2024 Noted Resolved Small bowel obstruction (HCC) [K56.609] 11/19/2022 GI bleed [K92.2] 11/19/2022 Nicotine use disorder, F17.2 [F17.200] 11/20/2022 Ileus (HCC) [K56.7] 11/20/2022 Screening for colon cancer [Z12.11] 12/12/2022 Prostate cancer metastatic to intraabdominal ly*01/31/2023 Osteoarthritis of multiple joints [M15.9] 01/31/2023 Mixed hyperlipidemia [E78.2] 01/31/2023 GERD (gastroesophageal reflux disease) [K21.9] 01/31/2023 Essential hypertension [I10] 01/31/2023 COPD (chronic obstructive pulmonary disease) (H*01/31/2023 Encounter Status:Closed by DOMINIC YUAN on 03/11/24 Normal [facility] Prostate specific Agon 03-05 Prostate specific Ag [Mass/Vol] 0.33 ng/mL Normal <=4.00 [facility] Comment on above: Order Comment: The F DA requires that the method used for PSA assay be reported to the physician. Values obtained with different assay methods must not be used interchangeably. This test was performed at [facility] using the [employer] PSA assay is a two-site immunoenzymatic sandwich assay. The assay is approved for measurement of prostate-specific antigen (PSA)in serum and may be used in conjunction with a digital rectal examination in men 50 years and older as an aid in detection of prostate cancer. 6-Tunbw-vqqyewhkl inhibitors (e.g. Proscar, Finasteride, Avodart, Dutasteride and Rosita) for the treatment of BPH have been shown to lower PSA levels by an average of 50% after 6 months of treatment. Performed By: #### 2 857-1 #### EULALIO VELEZ ([id number]) [facility] ([facility]) [address] [place] [address] Testosteroneon 03-05-2024 Testosterone [Mass/Vol] 648 ng/dL Normal 250-1100 [facility] Comment on above: Result Comment: Men with clinically significant hypogonadal symptoms and testosterone values repeatedly in the range of the 200-300 ng/dL or less, may benefit from testosterone treatment after adequate risk and benefits counseling. For additional information, please refer to http://education.[employer].Tour Raiser/faq/ [id number] (This link is being provided for informational/ educational purposes only.) This test was developed and its analytical performance characteristics have been determined by [employer] [facility]. It has not been cleared or approved by the U.S. Food and Drug Administration. This assay has been validated pursuant to the CLIA regulations and is used for clinical purposes. Performed By: #### 2 986-8 #### AINSLEY GRAHAM ([id number]) [address] [place] Asher 03-01-2024 [facility] Office Visit (FAMPWS ) -- LUIS ANGEL AGUILA ([id number]) 1955 Date Time Provider Department 03/01/24 8:00 AM NAIMA SINHA During your visit today, we recorded the following information about you: Temperature Pulse Respiration Blood pressure 97.5 degrees 64/minute 18/minute 126/82 Weight 82.1 kg Naima Sinha APRN.CNP 03/01/2024 8:25 AM Signed 03/01/2024 Patient presents with: Cough: Spitting up yellow phlegm SUBJECTIVE: This is a 69 year old that is here today for Above Complaints.. For the past two weeks has had productive cough. Started on his way back from [place] on plane right. Using albuterol inhaler once a day when he remembers. Negative COVID-19 test about one week ago. Admits he thinks he had a fever around that time. Admits to SOB, wheezing, muscle aches, rhinorrhea, sore throat, nasal congestion- which have improved. Continues to smoke of pack a day.Taking Nyquil, Dayquil and Mucinex. 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 atenolol (TENORMIN) 25 mg tablet Take one tablet daily along with 50 mg to equal 75 mg daily atenolol (TENORMIN) 50 mg tablet Take one tablet daily along with 25 mg tablet to equal 75 mg daily cyclobenzaprine (FLEXERIL) 10 mg tablet Take 1 tablet by mouth as directed. 1/2 to 1 tablet po qhs as needed for spasm acetaminophen (TYLENOL EXTRA STRENGTH) 500 mg tablet Take 1,000 mg by mouth every 8 hours as needed. atorvastatin (LIPITOR) 40 mg tablet Take 1 tablet by mouth daily at bedtime. For cholesterol. lisinopril (ZESTRIL) 40 mg tablet Take 1 tablet by mouth once daily. pregabalin (LYRICA) 75 mg capsule Take one pill twice daily omeprazole (PRILOSEC) 40 mg capsule Take 1 capsule by mouth two times a day. tiotropium-olodaterol (STIOLTO RESPIMAT) 2.5-2.5 mcg/actuation Inhale 2 Puffs as instructed once daily. albuterol HFA (VENTOLIN HFA) 90 mcg/actuation inhaler Inhale 2 Puffs as instructed every 4 hours as needed for wheezing/shortness of breath. aspirin, enteric coated (ASPIRIN, ENTERIC COATED) 81 mg EC tablet Take 81 mg by mouth once daily. docusate sodium (STOOL SOFTENER) 100 mg capsule Take 100 mg by mouth twice daily. cholecalciferol (VITAMIN D-3) 50 mcg (2,000 unit) tablet Take 2,000 Units by mouth once daily. beta-carotene,A,-vits C,E/mins (OCUVITE ORAL) Take 1 tablet by mouth once daily. calcium carbonate (CALCIUM 600 ORAL) Take 1 tablet by mouth once daily. Multivitamin capsule Take 1 capsule by mouth once daily. No current facility-administered medications for this visit. Medications and allergies reviewed by this provider. SOCIAL HISTORY Social History Tobacco Use Smoking status: Every Day Current packs/day: 1.00 Average packs/day: 1 pack/day for 55.0 years (55.0 ttl pk-yrs) Types: Cigarettes Smokeless tobacco: Never Tobacco comments: Pt has cut back to 1/2 pack daily. Vaping Use Vaping status: Never Used Substance Use Topics Alcohol use: Yes Comment: occasionaly Drug use: Never REVIEW OF SYSTEMS All other reviewed and negative other than HPI. OBJECTIVE: BP 126/82 Pulse 64 Temp 36.4 ?C (97.5 ?F) Resp 18 Wt 82.1 kg (181 lb) SpO2 95% BMI 26.21 kg/m? . Vital signs reviewed by this provider. APPEARANCE Well appearing, alert, in no acute distress, well-hydrated, well nourished. EYES conjunctiva and sclera normal. EARS External ears normal, canals clear THROAT normal, no erythema NECK Supple, no adenopathy; thyroid symmetric, normal size, no bruits HEART RRR with normal S1 and S2, no murmurs, no gallops, no JVD appreciated LUNG clear to auscultation. No wheezes, rhonchi or rales SKIN Skin color, texture, turgor normal, no suspicious rashes or lesions to exposed skin Abdominal Aortic Aneurysm Screening Never done Depression Screening Never done Anxiety Screening Never done Hepatitis C Screening Never done BP Controlled (<130/80) Never done Shingrix Vaccine(1 of 2) Never done RSV Vaccine(1 - Risk 60-74 years 1-dose series) Never done Advance Directive Discussion Never done Influenza Vaccine(1) Never done Covid-19 Vaccine( season) due on 12/07/2023 Lung Cancer Screening due on 01/11/2025 Annual PCP Team Chronic Disease Visit due on 03/01/2025 Diabetes Screening due on 10/22/2026 Lipid Screening due on 12/13/2027 Colorectal Cancer Screening due on 12/12 (more content not included)... Normal [facility] Ernesto 03-01-2024 BIGG Telephone (MUKESHWS) -- LUIS ANGEL AGUILA ([id number]) 1955 M Date Time Provider Department 03/01/24 ERIK COTA During your visit today, we recorded the following information about you: Lorraine Green LPN 03/01/2024 3:18 PM Signed ----- Message from Naima Sinha APRN.TOOL GRINDER SET UP OPERATOR GEAR sent at 03/01/2024 3:10 PM EST ----- No acute abnormality on chest xray. MARY JO Roper Laurie Lynn, LPN 03/01/2024 3:19 PM Signed Left a message for pt to call the office and ask to speak to a nurse. JUAN MANUEL Manzo M Robin, RN 03/01/2024 4:47 PM Signed Pt returned call and given provider's message below with verbalized understanding. Allergies As of Date: 03/01/2024 Noted Allergy Reaction MORPHINE 10/25/2022 2 - Rash 9 - Itching PREDNISONE 10/25/2022 1 - Mental Status Change Date Reviewed: 03/01/2024 Reviewed by: Ashlie Osborn LPN - Fully Assessed Prescriptions as of 03/01/2024 - azithromycin (ZITHROMAX) 250 mg tablet Take 2 tablets by mouth once daily for 1 day, THEN 1 tablet once daily for 4 days. - albuterol HFA (VENTOLIN HFA) 90 mcg/actuation inhaler Inhale 2 Puffs as instructed every 4 hours as needed for wheezing/shortness of breath. - atenolol (TENORMIN) 50 mg tablet Take one tablet daily along with 25 mg tablet to equal 75 mg daily - atorvastatin (LIPITOR) 40 mg tablet Take 1 tablet by mouth daily at bedtime. For cholesterol. - lisinopril (ZESTRIL) 40 mg tablet Take 1 tablet by mouth once daily. - omeprazole (PRILOSEC) 40 mg capsule Take 1 capsule by mouth two times a day. - tiotropium-olodaterol (STIOLTO RESPIMAT) 2.5-2.5 mcg/actuation inhaler Inhale 2 Puffs as instructed once daily. - famotidine (PEPCID) 40 mg tablet Take 40 mg by mouth once daily. - cyclobenzaprine (FLEXERIL) 10 mg tablet Take 1 tablet by mouth as directed. 1/2 to 1 tablet po qhs as needed for spasm - acetaminophen (TYLENOL EXTRA STRENGTH) 500 mg tablet Take 1,000 mg by mouth every 8 hours as needed. - pregabalin (LYRICA) 75 mg capsule Take one pill twice daily - aspirin, enteric coated (ASPIRIN, ENTERIC COATED) 81 mg EC tablet Take 81 mg by mouth once daily. - docusate sodium (STOOL SOFTENER) 100 mg capsule Take 100 mg by mouth twice daily. - cholecalciferol (VITAMIN D-3) 50 mcg (2,000 unit) tablet Take 2,000 Units by mouth once daily. - beta-carotene,A,-vits C,E/mins (OCUVITE ORAL) Take 1 tablet by mouth once daily. - calcium carbonate (CALCIUM 600 ORAL) Take 1 tablet by mouth once daily. - Multivitamin capsule Take 1 capsule by mouth once daily. Problem List As Of Date 03/01/2024 Noted Resolved Small bowel obstruction (HCC) [K56.609] 11/19/2022 GI bleed [K92.2] 11/19/2022 Nicotine use disorder, F17.2 [F17.200] 11/20/2022 Ileus (HCC) [K56.7] 11/20/2022 Screening for colon cancer [Z12.11] 12/12/2022 Prostate cancer metastatic to intraabdominal ly*01/31/2023 Osteoarthritis of multiple joints [M15.9] 01/31/2023 Mixed hyperlipidemia [E78.2] 01/31/2023 GERD (gastroesophageal reflux disease) [K21.9] 01/31/2023 Essential hypertension [I10] 01/31/2023 COPD (chronic obstructive pulmonary disease) (H*01/31/2023 Encounter Status:Closed by LORRAINE GREEN on 03/01/24 Normal [facility] XR CHEST 2V FRONTAL/LATon XR CHEST 2V FRONTAL/LAT * * *Final Report* * * DATE OF EXAM: Mar 01 2024 2:54PM [id number] - XR CHEST 2V FRONTAL/LAT / PROCEDURE REASON: multiple diagnoses * * * * Physician Interpretation * * * * EXAMINATION: CHEST RADIOGRAPH (2 VIEW FRONTAL and LATERAL) CLINICAL HISTORY: Acute cough COPD with exacerbation (HCC) MQ: XC2_6 EXAM DATE/TIME: 03/01/2024 2:54 PM COMPARISON: No relevant prior studies available. RESULT: Lines, tubes, and devices: None. Lungs and pleura: Focal atelectasis/scarring noted in the lingula. No consolidation. No lung mass. No pleural effusion. No pneumothorax. Cardiomediastinal silhouette: The cardiac silhouette is within normal limits. There are atherosclerotic calcifications in the thoracic aorta. Bones and soft tissues: Status post cervical spinal fusion. There are surgical screws along the left acromion. IMPRESSION: No acute radiographic abnormality. Header Operator: PSC Transcribe Date/Time: Mar 01 2024 2:56P Dictated by : TATIANA CA MD This examination was interpreted and the report reviewed and electronically signed by: TATIANA CA MD on Mar 01 2024 2:58PM EST [id number] Normal [facility] XR Chest PA and Lateralon Radiology Study observation (narrative) [facility] IMPRESSION: No acute radiographic abnormality. Header Operator: [facility] Transcribe Date/Time: Mar 01 2024 2:56P Dictated by : TATIANA CA MD This examination was interpreted and the report reviewed and electronically signed by: TATIANA CA MD on Mar 01 2024 2:58PM EST DIVISION OF RADIOLOGY * * *Final Report* * * DATE OF EXAM: Mar 01 2024 2:54PM [id number] - XR CHEST 2V FRONTAL/LAT / PROCEDURE REASON: multiple diagnoses * * * * Physician Interpretation * * * * EXAMINATION: CHEST RADIOGRAPH (2 VIEW FRONTAL & LATERAL) CLINICAL HISTORY: Acute cough COPD with exacerbation (HCC) MQ: XC2_6 EXAM DATE/TIME: 03/01/2024 2:54 PM COMPARISON: No relevant prior studies available. RESULT: Lines, tubes, and devices: None. Lungs and pleura: Focal atelectasis/scarring noted in the lingula. No consolidation. No lung mass. No pleural effusion. No pneumothorax. Cardiomediastinal silhouette: The cardiac silhouette is within normal limits. There are atherosclerotic calcifications in the thoracic aorta. Bones and soft tissues: Status post cervical spinal fusion. There are surgical screws along the left acromion. DIVISION OF RADIOLOGY Provider, [facility] - 03/01/2024 * * *Final Report* * * DATE OF EXAM: Mar 01 2024 2:54PM [id number] - XR CHEST 2V FRONTAL/LAT / PROCEDURE REASON: multiple diagnoses * * * * Physician Interpretation * * * * EXAMINATION: CHEST RADIOGRAPH (2 VIEW FRONTAL & LATERAL) CLINICAL HISTORY: Acute cough COPD with exacerbation (HCC) MQ: XC2_6 EXAM DATE/TIME: 03/01/2024 2:54 PM COMPARISON: No relevant prior studies available. RESULT: Lines, tubes, and devices: None. Lungs and pleura: Focal atelectasis/scarring noted in the lingula. No consolidation. No lung mass. No pleural effusion. No pneumothorax. Cardiomediastinal silhouette: The cardiac silhouette is within normal limits. There are atherosclerotic calcifications in the thoracic aorta. Bones and soft tissues: Status post cervical spinal fusion. There are surgical screws along the left acromion. IMPRESSION IMPRESSION: No acute radiographic abnormality. Header Operator: PSCB Transcribe Date/Time: Mar 01 2024 2:56P Dictated by : TATIANA CA MD This examination was interpreted and the report reviewed and electronically signed by: TATIANA CA MD on Mar 01 2024 2:58PM EST [facility] XR Chest PA and LateralOrder ed By: Ccf Provider on 03-01-2024 [facility] CT CHEST WITHOUT CONTRASTon 01-12-2024 CT CHEST WITHOUT CONTRAST EXAMINATION: CT CHEST WITHOUT CONTRAST HISTORY: ORDERING SYSTEM PROVIDED HISTORY: Lung nodule, > 8mm, TECHNOLOGIST PROVIDED HISTORY: Illness/Other Reason for exam: bilateral lung nodules, hx of prostrate cancer with mets Encounter Type: Ongoing Additional signs and symptoms: . ORDERING SYSTEM PROVIDED DIAGNOSIS CODES: R91.1 Lung nodule COMPARISON: CT chest October 10, 2023. TECHNIQUE: CT examination of the chest without IV contrast. Coronal and sagittal reformations were performed. Dose reduction techniques were achieved by using automated exposure control and/or adjustment of mA and/or kV according to patient size and/or use of iterative reconstruction technique. FINDINGS: Lungs/pleura: Noncalcified 7 mm solid nodule along the minor fissure (series 3, image 66) is stable. Additional smaller nodules are stable which include a 5 mm nodule in the left lower lobe (image 86), punctate nodule right upper lobe (image 53), 3 mm nodule at the left major fissure (image 62) and 3 mm subpleural nodule at the left lower lobe (image 94). Stable small focal area of consolidation in the medial segment of the middle lobe (image 77) which may be related to atelectasis. No new pulmonary nodules, acute airspace disease or pleural effusion. Stable background changes upper lobe predominant centrilobular and paraseptal emphysema. Mediastinum: Stable fusiform ectasia of ascending thoracic aorta at 4.1 cm. There are no pathologically enlarged mediastinal or appreciable hilar lymph nodes. Aortic valvular calcifications are again noted as well scattered small coronary artery calcifications. Upper abdomen: Several stable small low-density liver lesions consistent with cysts and stable probable upper pole small left renal cortical cysts. No suspicious masses identified on the unenhanced study. Chest wall: No enlarged axillary lymph nodes or suspicious chest wall masses. Osseous structures: No aggressive bone lesions. IMPRESSION: 1. Stable bilateral subcentimeter noncalcified solid nodules. No new nodules or convincing evidence of disease progression. 2. Aortic valvular calcification and stable ectasia of the ascending thoracic aorta 4.1 cm. 3. No intrathoracic adenopathy. Between Digital Workstation ID: [id number] Dictated by: SAHIL HERRING on FriJan 13, 2024 9:34:05 AM EDT Transcribed by: APRIL MASSEY on FriJan 13, 2024 9:37:36 AM EDT Finalized by: SAHIL HERRING on FriJan 13, 2024 12:07:14 PM [address]T [facility] Comment on above: Order Comment: Injur y/Trauma or Illness?:Illness/Other How long have you had these symptoms (acute/chronic)?:Unknown Reason for exam?:bilateral lung nodules, hx of prostrate cancer with mets Type of Exam?:Ongoing Additional signs and symptoms?:. CNOVSPon 12-16-2023 [facility] Visit (SP) Office (H EMAWS) -- LUIS ANGEL AGUILA ([id number]) 1955 M Date Time Provider Department 12/16/23 8:30 AM MONICA JUNG During your visit today, we recorded the following information about you: Temperature Pulse Blood pressure Weight 97.1 degrees 73/minute 135/74 80.3 kg Monica Jung DO 12/16/2023 8:47 AM Signed Oncologic problem(s): 1) Castrate sensitive prostate cancer. HPI: The patient is a 68-year-old male with past medical history significant for hyperlipidemia, hypertension, moderate COPD, GERD, previous cervical spine surgery, chronic low back pain and prostate cancer. Developed gross hematuria. PSA 50s. RP with penile implant. Bladder tear about a month later. PET--recurrence in prostate bed. 06/2021 4 weeks RT in [place] with GnRH agonist treatment (Lupron). Stopped due to side effects--Severe diarrhea and n/v. PSA undetectable 06/2022. Presumably from Lupron. CT A/P 11/18/2022: IMPRESSION: 1. Postoperative ileus versus changes of early small bowel obstruction within the right pelvis as discussed above. Short-term follow-up suggested. 2. Changes of recent prostatectomy and penile implant. There is a 6.0 x 2.7 x 9.5 cm nonencapsulated postoperative fluid collection within the right lower quadrant subcutaneous fat adjacent to the penile pump. 3. Mild free fluid. 4. Sacral insufficiency fractures. Medically managed for SBO. Presents for ongoing oncologic management. Interim history: Saw Dr. Ariza at 11/10/2023: -Assessment/Plan I personally saw patient and counselled all visit on his diagnosis, kamilla history and coordination of his care. This is a 68 y.o. male man known with LN+ PC on ADT (d/c zytiga/pred and apa s/t AEs) with T > 50 and low PSA and negative recent PSMA (June 2022). He had incomplete salvage XRT but aborted s/t bowel tox. He is discontinuing ADT per pt preference - understands R/A of this decision. He was found with some lung abn, but PET was negative and bronch results pending. He is smoker. Will call him in few weeks to Fup on bronch results We discussed the clinical significance of diagnosis, goals of care and treatment plan in detail. Thank you for the opportunity to be involved in the care of Luis Angel Aguila. Please do not hesitate to reach out with any questions. Thank you. Path was negative. Per recent note from [facility] -Follow up sp EGD with biopsies 11/26/2023. 1 cm circumferential salmon colored mucosa seen at the GE junction at the time of EGD, consistent with short segment Oliver's esophagus. 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 We discussed the etiology of Oliver's and need for continued endoscopic surveillance due to risk of malignancy. Recommend patient continue on his PPI/H2 nabil, repeat EGD in 5 years for surveillance. Hot flashes resolved. No symptoms of LUTS. No change in chronic LBP. 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) No date: S/P prostatectomy No date: Tobacco use disorder PAST SURGICAL HISTORY No date: ABDOMINAL SURGERY HX No date: APPENDECTOMY 12/12/2022: COLONOSCOPY Comment: repeat 5 years No date: FOOT RIGHT OP SURGERY; Right No date: FRACTURE SURGERY No date: REMOVAL OF PROSTATE No date: REPAIR ABDOMINAL HERNIA No date: SHOULDER SURGERY HX; Bilateral No date: XR CERVICAL FUSION OR ALLERGIES Allergen Reactions Morphine Rash, Itching Prednisone Mental Status Change Current Outpatient Medications Medication Sig atenolol (TENORMIN) 25 mg tablet Take one tablet daily along with 50 mg to equal 75 mg daily atenolol (TENORMIN) 50 mg tablet Take one tablet daily along with 25 mg tablet to equal 75 mg daily cyclobenzaprine (FLEXERIL) 10 mg tablet Take 1 tablet by mouth as directed. 1/2 to 1 tablet po qhs as needed for spasm acetaminophen (TYLENOL EXTRA STRENGTH) 500 mg tablet Take 1,000 mg by mouth every 8 hours as needed. atorvastatin (LIPITOR) 40 mg tablet Take 1 tablet by mouth daily at bedtime. For cholesterol. lisinopril (ZESTRIL) 40 mg tablet Take 1 tablet by mouth once daily. pregabalin (LYRICA) 75 mg capsule Take one pill twice daily meloxicam (MOBIC) 15 mg tablet Take 1 tablet by mouth once daily. With food. (Patient not taking: Reported on 09/15/2023) omeprazole (PRILOSEC) 40 mg capsule Take 1 capsule by mouth two times a day. tiotropium-olodaterol (STIOLTO RESPIMAT) 2.5-2.5 mcg/actuation Inhale 2 Puffs as instructed once daily. albuterol HFA (VENTOLIN HFA) 90 mcg/actuation inhaler Inhale 2 Puffs as instructed every 4 hours (more content not included)... Normal [facility] PSA SerPl-mCncon 12-12-2023 Prostate specific Ag [Mass/Vol] 0.06 ng/mL Normal <2.60 [facility] Comment on above: Order Comment: Speci men Type: BLOOD SPECIMEN Ordering Facility: [facility] Address: [address] [place] [address] Result Comment: Tota l PSA test methodology used is the Electrochemiluminescence Immunoassay by [employer]. Total PSA values by differing methodologies cannot be interchanged. Performed By: #### 2 4321-2 #### [facility] CLIA [id number] [address] [place] [address] [place] Testost SerPl-mCncon 024 Testosterone [Mass/Vol] 137 ng/dL Low 193-824 [facility] Comment on above: Order Comment: Speci men Type: BLOOD SPECIMEN Ordering Facility: [facility] Address: [address] [place] [address] Result Comment: A te stosterone level in the 193-320 ng/dL range with associated clinical symptoms is considered low and may indicate hypogonadism (from NEJM 2010 363:123-135). Results >320 ng/dL are considered normal. Performed By: #### 2 4323-8 #### [facility] CLIA [id number] [address] [place] [address] OF [place] TISSUE EXAMon 11-26-2023 TISSUE EXAM Surgical Pathology R eport Case: [id number] Authorizing Provider: Sahil Alcantara MD Collected: 11/26/2023 08:36 AM Ordering Location: [facility] Received: 11/26/2023 02:30 PM Endoscopy Pathologist: Darvin Piña DO Specimen: Esophagus, Lower Third A. Esophagus, Lower Third, biopsy: Gastroesophageal junction mucosa with intestinal metaplasia, see comment. Comment: The findings are consistent with Oliver's esophagus in the appropriate endoscopic setting. Reflux-type changes are present in the background and there is no evidence of dysplasia. Gastroesophageal reflux disease, unspecified whether esophagitis present [K21.9] Heartburn [R12] A. Received in formalin, designated Esophagus, Lower ThirBiopsy, are 4 chappell fragment(s) of tissue measuring 0.8 x 0.6 x 0.2 cm in aggregate. Totally submitted in 1 cassette(s). KD Gross examination performed at: [facility] - [address] [place] [id number] Microscopic examination is performed. Normal [facility] Comment on above: Performed By: #### 4 7015 #### LAB [address] [place], [place] [address] Emiliano Mccoy M.D. [id number] Prostate specific Agon 11-05 Prostate specific Ag [Mass/Vol] 0.02 ng/mL Normal <=4.00 [facility] Comment on above: Order Comment: The DA requires that the method used for PSA assay be reported to the physician. Values obtained with different assay methods must not be used interchangeably. This test was performed at [facility] using the [place] PSA assay is a two-site immunoenzymatic sandwich assay. The assay is approved for measurement of prostate-specific antigen (PSA)in serum and may be used in conjunction with a digital rectal examination in men 50 years and older as an aid in detection of prostate cancer. 4-Fpple-jicxxuokz inhibitors (e.g. Proscar, Finasteride, Avodart, Dutasteride and Rosita) for the treatment of BPH have been shown to lower PSA levels by an average of 50% after 6 months of treatment. Performed By: #### 2 857-1 #### TSAI AGUSTIN ([id number]) [facility] ([facility]) [address] [place] [address] Testosteroneon 11-06-2023 Testosterone [Mass/Vol] 6 ng/dL Low 250-1100 [facility] Comment on above: Result Comment: Men with clinically significant hypogonadal symptoms and testosterone values repeatedly in the range of the 200-300 ng/dL or less, may benefit from testosterone treatment after adequate risk and benefits counseling. For additional information, please refer to http://education.[employer].com/faq/ [email or web address] (This link is being provided for informational/ educational purposes only.) This test was developed and its analytical performance characteristics have been determined by [employer] [place], [place]. It has not been cleared or approved by the U.S. Food and Drug Administration. This assay has been validated pursuant to the CLIA regulations and is used for clinical purposes. Performed By: #### 2 986-8 #### AINSLEY GRAHAM ([id number]) [address] [facility] [place], [place] BRONCHIAL AEROBIC CULTUREon 11-04-2023 BRONCHIAL AEROBIC CULTURE AEROBIC CULTURE No Growth after 48 hrs GRAM STAIN RESULT No Organisms Seen Moderate WBC Normal [facility] Comment on above: Performed By: #### 4 4017 #### [facility] [address] [place] [address] Scott Murillo M.D. [id number] BRONCHIAL AEROBIC CULTURE AEROBIC CULTURE No Growth after 48 hrs GRAM STAIN RESULT No Organisms Seen Many WBC Rare Epithelial Cells Normal [facility] Comment on above: Performed By: #### 4 4017 #### [facility] [address] [place] [address] Scott Murillo M.D. [id number] BRONCHIAL AFB CULTUREon 10-07 BRONCHIAL AFB CULTURE AFB CULTURE No Growth of Acid Fast Bacilli after 8 Weeks AFB STAIN (2017) No Acid Fast Bacilli Seen Normal [facility] Comment on above: Performed By: #### 4 4208 #### [facility] [address] [place], [place] [address] Scott Murillo M.D. [id number] BRONCHIAL AFB CULTURE AFB CULTURE No Growth of Acid Fast Bacilli after 8 Weeks AFB STAIN (2017) No Acid Fast Bacilli Seen Normal [facility] Comment on above: Performed By: #### 4 4208 #### [facility] [address] [place] [address] Scott Murillo M.D. [id number] BRONCHIAL FUNGUS CULTUREon 11-04-2023 BRONCHIAL FUNGUS CULTURE FUNGUS CULTURE No Fungus Isolated At 4 Weeks FUNGAL SMEAR No Fungal or Yeast Elements Normal [facility] Comment on above: Performed By: #### 4 4211 #### [facility] [address] [place], [place] [address] Scott Murillo M.D. [id number] BRONCHIAL FUNGUS CULTURE FUNGUS CULTURE No Fungus Isolated At 4 Weeks FUNGAL SMEAR No Fungal or Yeast Elements Normal [facility] Comment on above: Performed By: #### 4 6124 #### [facility] [address] [address] Rebecca Buckner M.D. [id number] NONGYN CYTOLOGYon 11-04-2023 NONGYN CYTOLOGY Medical Cytology Rep ort Case: [id number] Authorizing Provider: Frank Quinteros MD Collected: 11/04/2023 12:24 PM Ordering Location: [facility] Received: 11/04/2023 01:13 PM Periop Pathologist: Brie Quintero MD Specimens: A) - Lung, Middle Lobe, Right B) - Lung, Upper Lobe, Left Negative for malignant cells Negative for malignant cells R91.1 - Lung nodule [ICD-10-CM] R04.2 - Hemoptysis [ICD-10-CM] A. (Mid right lobe) 2 mL clear colorless fluid 1 ThinPrep slide, Pap stained 1 Cellblock with 1 H&E slide B. (Upper left lobe) 5 mL clear colorless fluid 1 ThinPrep slide, Pap stained 1 Cellblock with 1 H&E slide Specimen Processing and Primary Screening performed at: [facility] - [address] [place] [address] Normal [facility] Comment on above: Performed By: #### 4 6998 #### [facility] [address] [address] Breezy Vogt M.D. [id number] [facility] [address] [place] [address] Scott Murillo M.D. [id number] BASIC METABOLIC PANEL 10-05 Anion gap [Moles/Vol] 16 mmol/L Normal 10-20 [facility] Comment on above: Order Comment: [facility] has implemented the eGFR calculation approach that does not have a coefficient for race that conforms to the NKF-ASN Task Force Recommendations. Performed By: #### 4 6124 #### [facility] [address] [place], [place] [address] Rebecca Buckner M.D. [id number] Calcium [Mass/Vol] 10.2 mg/dL Normal 8.4-10.2 [facility] Comment on above: Order Comment: [facility] has implemented the eGFR calculation approach that does not have a coefficient for race that conforms to the NKF-ASN Task Force Recommendations. Performed By: #### 4 6124 #### [facility] [address] [place] [address] Rebecca Buckner M.D. [id number] Chloride [Moles/Vol] 98 mmol/L Normal 98-108 [facility] Comment on above: Order Comment: [facility] has implemented the eGFR calculation approach that does not have a coefficient for race that conforms to the NKF-ASN Task Force Recommendations. Performed By: #### 4 6124 #### [facility] [address] [place], [place] [address] Rebecca Buckner M.D. [id number] Creatinine [Mass/Vol] 0.86 mg/dL Normal 0.80-1.30 [facility] Comment on above: Order Comment: [facility] has implemented the eGFR calculation approach that does not have a coefficient for race that conforms to the NKF-ASN Task Force Recommendations. Performed By: #### 4 6124 #### [facility] [address] [place], [place] [address] Rebecca Buckner M.D. [id number] EGFR 94 mL/min/1.73 m2 Normal >=60 [facility] Comment on above: Order Comment: [facility] has implemented the eGFR calculation approach that does not have a coefficient for race that conforms to the NKF-ASN Task Force Recommendations. Result Comment: Rizwana mated GFR was calculated using the 2020 CKD-EPI creatinine equation. Performed By: #### 4 6124 #### [facility] [address] [place], [place] [address] Rebecca Buckner M.D. [id number] Glucose [Mass/Vol] 93 mg/dL Normal 65-99 [facility] Comment on above: Order Comment: [facility] has implemented the eGFR calculation approach that does not have a coefficient for race that conforms to the NKF-ASN Task Force Recommendations. Performed By: #### 4 6124 #### [facility] [address] [place], [place] [address] Rebecca Buckner M.D. [id number] HCO3 (Bld) [Moles/Vol] 26 mmol/L Normal 21-32 [facility] Comment on above: Order Comment: [facility] has implemented the eGFR calculation approach that does not have a coefficient for race that conforms to the NKF-ASN Task Force Recommendations. Performed By: #### 4 6124 #### [facility] [address] [place], [place] [address] Rebecca Buckner M.D. [id number] Potassium [Moles/Vol] 4.8 mmol/L Normal 3.5-5.1 [facility] Comment on above: Order Comment: [facility] has implemented the eGFR calculation approach that does not have a coefficient for race that conforms to the NKF-ASN Task Force Recommendations. Result Comment: Slig htly Hemolyzed Performed By: #### 4 6124 #### [facility] [address] [place], [place] [address] Rebecca Buckner M.D. [id number] Sodium [Moles/Vol] 135 mmol/L Normal 135-145 [facility] Comment on above: Order Comment: [facility] has implemented the eGFR calculation approach that does not have a coefficient for race that conforms to the NKF-ASN Task Force Recommendations. Performed By: #### 4 6124 #### [facility] [address] [place], [place] [address] Rebecca Buckner M.D. [id number] Urea nitrogen [Mass/Vol] 12 mg/dL Normal 8-25 [facility] Comment on above: Order Comment: [facility] has implemented the eGFR calculation approach that does not have a coefficient for race that conforms to the NKF-ASN Task Force Recommendations. Performed By: #### 4 6124 #### [facility] [address] [place], [place] [address] Rebecca Buckner M.D. [id number] Urea nitrogen/Creatinine [Mass ratio] 14.0 mg/mg Normal 10.0-20.0 [facility] Comment on above: Order Comment: [facility] has implemented the eGFR calculation approach that does not have a coefficient for race that conforms to the NKF-ASN Task Force Recommendations. Performed By: #### [id number] #### [facility] [address] [place], [place] [address] Rebecca Buckner M.D. [id number] Basic metabolic 2000 panelOr dered By: Alina Lozada on 10-23-2023 Anion gap [Moles/Vol] 16 mmol/L 10 - 20 mmol/L [facility] Calcium [Mass/Vol] 10.2 mg/dL 8.4 - 10. 2 mg/dL [facility] Chloride [Moles/Vol] 98 mmol/L 98 - 10 8 mmol/L [facility] Creatinine [Mass/Vol] 0.86 mg/dL 0.80 - 1.30 mg/dL [facility] GFR/1.73 sq M.predicted CKD-EPI (S/P/Bld) [Vol rate/Area] 94 - PINF [facility] Comment on above: Estimated GFR was ca lculated using the 2020 CKD-EPI creatinine equation. Glucose [Mass/Vol] 93 mg/dL 65 - 99 mg/dL [facility] HCO3 [Moles/Vol] 26 mmol/L 21 - 32 mmol/L [facility] Interpretation and review of laboratory results Normal [facility] Potassium [Moles/Vol] 4.8 mmol/L 3.5 - 5.1 mmol/L [facility] Comment on above: Slightly Hemolyzed Sodium [Moles/Vol] 135 mmol/L 135 - 145 mmol/L [facility] Urea nitrogen [Mass/Vol] 12 mg/dL 8 - 25 mg/dL [facility] Urea nitrogen/Creatinine [Mass ratio] 14.0 mg/mg 10.0 - 20.0 [facility] has implemented the eGFR calculation approach that does not have a coefficient for race that conforms to the NKF-ASN Task Force Recommendations. [facility] CBCon 10-23-2023 AUTO NRBC 0.0 % Normal [facility] Comment on above: Performed By: #### [id number] #### [facility] [address] [place], [place] [address] Rebecca Buckner M.D. [id number] AUTO NRBC ABS COUNT 0.00 K/mcL Normal 0.00-0.00 [facility] Comment on above: Performed By: #### [id number] #### [facility] [address] [place] [address] Rebecca Buckner M.D. [id number] Erythrocyte distribution width (RBC) [Ratio] 12.8 % Normal 11.6-14.8 [facility] Comment on above: Performed By: #### [id number] #### [facility] [address] [place] [address] Rebecca Buckner M.D. [id number] Hematocrit (Bld) [Volume fraction] 45.5 % Normal 41.0-53.0 [facility] Comment on above: Performed By: #### [id number] #### [facility] [address] [place], [place] [address] Rebecca Buckner M.D. [id number] Hemoglobin (Bld) [Mass/Vol] 14.8 g/dL Normal 13.5-17.5 [facility] Comment on above: Performed By: #### [id number] #### [facility] [address] [place], [place] [address] Rebecca Buckner M.D. [id number] MCH (RBC) [Entitic mass] 31.4 pg Normal 26.0-34.0 [facility] Comment on above: Performed By: #### [id number] #### [facility] [address] [place], [place] [address] Rebecca Buckner M.D. [id number] MCV (RBC) [Entitic vol] 96.6 fL Normal 80.0-100.0 [facility] Comment on above: Performed By: #### [id number] #### [facility] [address] [place], [place] [address] Rebecca Buckner M.D. [id number] MEAN CORPUSCULAR HEMOGLOBIN CONC 32.5 g/dL Normal 31.0-37.0 [facility] Comment on above: Performed By: #### [id number] #### [facility] [address] [place], [place] [address] Rebecca Buckner M.D. [id number] Platelet mean volume (Bld) [Entitic vol] 9.6 fL Normal 9.4-12.4 [facility] Comment on above: Performed By: #### [id number] #### [facility] [address] [place], [place] [address] Rebecca Buckner M.D. [id number] Platelets (Bld) [#/Vol] 264 10*3/uL Normal 150-400 [facility] Comment on above: Performed By: #### [id number] #### [facility] [address] [place], [place] [address] Rebecca Buckner M.D. [id number] RBC (Bld) [#/Vol] 4.71 10*6/uL Normal 4.50-5.90 [facility] Comment on above: Performed By: #### [id number] #### [facility] [address] [place], [place] [address] Rebecca Buckner M.D. [id number] WBC (Bld) [#/Vol] 7.57 10*3/uL Normal 4.50-11.00 [facility] Comment on above: Performed By: #### [id number] #### [facility] [address] [place], [place] [address] Rebecca Buckner M.D. [id number] CBC panel Auto (Bld)on 10-22 Erythrocyte distribution width (RBC) [Entitic vol] 12.8 % 11.6 - 14.8 % [facility] Hematocrit (Bld) [Volume fraction] 45.5 % 41.0 - 53.0 % [facility] Hemoglobin (Bld) [Mass/Vol] 14.8 g/dL 13.5 - 17.5 g/dL [facility] MCH (RBC) [Entitic mass] 31.4 pg 26.0 - 34.0 pg [facility] MCHC (RBC) [Mass/Vol] 32.5 g/dL 31.0 - 37.0 g/dL [facility] MCV (RBC) [Entitic vol] 96.6 fL 80.0 - 100.0 fL [facility] Nucleated RBC (Bld) [#/Vol] 0.00 10*3/uL [facility] Nucleated RBC/100 WBC (Bld) [Ratio] 0.0 % [facility] Platelet mean volume (Bld) [Entitic vol] 9.6 fL 9.4 - 12.4 fL [facility] Platelets (Bld) [#/Vol] 264 10*3/uL [facility] RBC (Bld) [#/Vol] 4.71 10*6/uL [facility] WBC (Bld) [#/Vol] 7.57 10*3/uL [facility] INR Coag (PPP) [Relative serina e]on 10-23-2023 Interpretation and review of laboratory results Normal [facility] PT Coag (PPP) [Time] 12.7 s [facility] During the induction phase of oral anticoagulation, the INR may not reflect the anticoagulation status of the patient. Therapeutic ranges for INR's are: Most clinical situations: INR 2.0-3.0 Mechanical Prosthetic Valve: INR 2.5-3.5 Critical: INR >5.0 [facility] PT/INRon 10-23-2023 INR Coag (PPP) [Relative time] 1.0 {INR} 0.8 - 1.1 [facility] INR Coag (PPP) [Relative time] 1.0 {INR} Normal 0.8-1.1 [facility] Comment on above: Order Comment: Nancy harmon the induction phase of oral anticoagulation, the INR may not reflect the anticoagulation status of the patient. Therapeutic ranges for INR's are: Most clinical situations: INR 2.0-3.0 Mechanical Prosthetic Valve: INR 2.5-3.5 Critical: INR >5.0 Performed By: #### [id number] #### [facility] [address] [place] [address] Rebecca Buckner M.D. [id number] PT Coag (PPP) [Time] 12.7 s Normal 11.8-14.3 [facility] Comment on above: Order Comment: Nancy harmon the induction phase of oral anticoagulation, the INR may not reflect the anticoagulation status of the patient. Therapeutic ranges for INR's are: Most clinical situations: INR 2.0-3.0 Mechanical Prosthetic Valve: INR 2.5-3.5 Critical: INR >5.0 Performed By: #### [id number] #### [facility] [address] [place] [address] Rebecca Buckner M.D. [id number] CT CHEST WITHOUT CONTRASTon 10-10-2023 CT CHEST WITHOUT CONTRAST EXAMINATION: CT CHEST WITHOUT CONTRAST HISTORY: ORDERING SYSTEM PROVIDED HISTORY: Lung nodule, > 8mm, TECHNOLOGIST PROVIDED HISTORY: Illness/Other Reason for exam: lung nodule. robotic bronch protocol Encounter Type: Initial Additional signs and symptoms: . ORDERING SYSTEM PROVIDED DIAGNOSIS CODES: R91.1 Lung nodule COMPARISON: 08/21/2023 TECHNIQUE: CT chest without contrast. Dose reduction techniques were achieved by using automated exposure control and/or adjustment of mA and/or kV according to patient size and/or use of iterative reconstruction technique. FINDINGS: MEDIASTINUM: Trachea and central airways are patent. Ectatic ascending thoracic aorta, measures 4.2 x 4.3 cm in the axial plane at the level of the right pulmonary artery. Remaining thoracic aorta is normal caliber. Mild atherosclerotic changes seen throughout the aorta. Heart is normal in size without pericardial effusion. No mediastinal or hilar lymphadenopathy. Small amount of intraluminal debris within the upper esophagus, suggestive of gastroesophageal reflux. Coronary Arteries: Mild scattered coronary arterial vascular calcifications. PLEURAL CAVITY: No pneumothorax. No pleural effusion. LUNGS: Mild upper lobe predominant centrilobular and paraseptal emphysematous changes. No focal airspace consolidation. Right middle lobe 0.9 x 1.6 cm subpleural nodule is mildly decreased compared to 08/21/2023 (1.9 x 1.0 cm). Several additional subpleural and pulmonary nodules are identified measuring up to 7 mm along the right minor fissure (series 3, image 60) and 5 mm in the left lower lobe (series 3, image 80). These findings are unchanged dating back to 08/21/2023. CHEST WALL/AXILLA: No axillary lymphadenopathy. VISUALIZED UPPER ABDOMEN: No acute findings. 1.7 cm right hepatic lobe cyst. Adjacent subcentimeter low-density lesion is too small to definitively characterize. OSSEOUS STRUCTURES: No destructive lesions. IMPRESSION: Dominant subpleural nodule at the right middle lobe measures 1.6 x 0.9 cm. Mildly decreased on 08/21/2023, remeasured at 1.9 x 1.0 cm. Recommend 3-[address] follow-up. Several additional subpleural pulmonary nodules measuring up to 7 mm, unchanged compared to 08/21/2023. Recommend attention on follow-up. No lymphadenopathy. Mild emphysematous changes. Mild ectasia of the ascending thoracic aorta. Suggestion of gastroesophageal reflux. [employer] Workstation ID: [id number] Dictated by: KIMBERLY CERVANTES on FriOct 12, 2023 6:26:04 AM EDT Transcribed by: CURTIS LONGORIA on FriOct 12, 2023 6:52:09 AM EDT Finalized by: KIMBERLY CERVANTES on FriOct 13, 2023 11:01:14 PM EDT Normal [facility] Comment on above: Order Comment: ROBOT IC BRONCH PROTOCOL Injury/Trauma or Illness?:Illness/Other How long have you had these symptoms (acute/chronic)?:Acute Reason for exam?:lung nodule. robotic bronch protocol Type of Exam?:Initial Additional signs and symptoms?:. PET ANGELINA IMAG W CT SKULL TO T HIGHon 10-01-[address] W [address] SKULL TO THIGH EXAMINATION: PET/CT HISTORY: ORDERING SYSTEM PROVIDED HISTORY: Lung nodule, > 8mm, TECHNOLOGIST PROVIDED HISTORY: Illness/Other Reason for exam: Lung nodule, > 8mm, Lung nodule Encounter Type: Unknown Additional signs and symptoms: na ORDERING SYSTEM PROVIDED DIAGNOSIS CODES: R91.1 Lung nodule COMPARISON: CT chest 08/21/2023 TECHNIQUE: The patient was injected with 10.53 mCi of F-18 fluorodeoxyglucose (FDG) and an emission scan was performed from the skull base to the midthigh. Noncontrast CT was performed for attenuation correction and anatomic localization. The blood glucose level was 78 mg/dl. Uptake time is 59 minutes. Mediastinal blood pool SUVmax 2.5. SUV calculations based on body weight. FINDINGS: Head and Neck: No hypermetabolic mass or adenopathy. There are carotid artery calcifications. Chest: A 1.7 cm nodule along the right heart border shows SUVmax 0.8. Additional subcentimeter lung nodules measuring up to 0.7 cm are also not hypermetabolic. No hypermetabolic lung nodule. No hypermetabolic adenopathy. There are emphysematous changes. No pleural effusion or pneumothorax. No pericardial effusion. There are coronary artery and aortic valve calcifications. Stable ectasia of the ascending aorta. Abdomen and Pelvis: No hypermetabolic mass or adenopathy. A small hypodensity within the liver is not hypermetabolic, suggesting a benign etiology. The pancreas, spleen and adrenal glands are unremarkable. No hydronephrosis. Small bilateral renal hypodensities, not well characterized due to technique. Moderate diffuse bladder wall thickening, nonspecific. Prior prostatectomy. Penile prosthesis is noted. No bowel obstruction. No free air or free fluid. Mild ectasia of the distal aorta. Musculoskeletal: Focal uptake seen in the left hemisacrum which appears to correspond to partial fusion of the left L5 transverse process to the sacrum. This is likely inflammatory. There is degenerative uptake within the lumbar spine. No other hypermetabolic bone lesion. There are postsurgical changes in the cervical spine. IMPRESSION: 1. Previously described lung nodules are not hypermetabolic. Recommend follow-up CT chest in 3 months. 2. No other hypermetabolic mass or adenopathy identified. 3. Additional incidental findings described above. [facility]/ Workstation ID: [id number] Dictated by: NINO BENTLEY on FriOct 03, 2023 12:58:46 PM EDT Transcribed by: MICKIE CORTEZ on FriOct 03, 2023 1:05:41 PM EDT Finalized by: NINO BENTLEY on FriOct 03, 2023 6:13:35 PM EDT Normal [facility] Comment on above: Order Comment: Injur y/Trauma or Illness?:Illness/Other How long have you had these symptoms (acute/chronic)?:Unknown Reason for exam?:Lung nodule, > 8mm, Lung nodule Type of Exam?:Unknown Additional signs and symptoms?:na POC [facility] Glucose [Mass/Vol] 78 mg/dL Normal 65-99 [facility] ECHOCARDIOGRAM COMPLETEon ECHOCARDIOGRAM COMPLETE Patient Info Name: LUIS ANGEL AGUILA Age: 68 years : 1955 Gender: Male Ht: 175 cm Wt: 78 kg BSA: 1.96 m2 HR: 60 bpm Heart Rhythm: Sinus Rhythm Technical Quality: Fair Exam Date: 09/16/2023 8:45 AM Patient Status: Outpatient Athletic Coach: Mireya Ruffin RN, RCS Exam Type: ECHOCARDIOGRAM COMPLETE Study Info Indications - Chest pain - Valve disease/murmur Referring Physician: ISAI BAZAN ; [id number] BMI: 25.55 kg/m2 Summary 1. Left ventricular chamber dimension is normal. 2. Left ventricular systolic function is normal with an ejection fraction by Biplane Method of Discs of 58 %. 3. The left ventricular diastolic function is normal. 4. The proximal ascending aorta is dilated measuring 4.0 cm with an index of 2.1 cm/m2. 5. No significant valvular disease identified. History/Risk Factors Hypertension: Yes Dyslipidemia: Yes COPD: On Meds Tobacco Use: Current - Every Day History/Risk Factors GERD, prostate cancer and ascending aort enlargement per CT scan. Procedure(s): Complete two-dimensional, color flow and Doppler transthoracic echocardiogram is performed. Left Ventricle Left ventricular chamber dimension is normal. Left ventricular systolic function is normal with an ejection fraction by Biplane Method of Discs of 58 %. Normal left ventricular mass. Left ventricular segmental wall motion is normal. The left ventricular diastolic function is normal. Right Ventricle Right ventricular size and systolic function are normal. Left Atria Left atrial chamber is normal with a left atrial volume index of 20 ml/m2 by BP MOD. Right Atria Right atrial chamber dimension is normal. Aortic Valve The aortic valve is trileaflet. There is moderate aortic valve sclerosis. There is no aortic valve stenosis. There is no aortic valve regurgitation. Pulmonic Valve The pulmonic valve is normal. There is no pulmonic valve stenosis. There is trace pulmonic regurgitation. Mitral Valve The mitral valve has normal leaflets. There is no mitral valve stenosis. There is trace mitral valve regurgitation. Normal pulmonary vein flow. Tricuspid Valve The tricuspid valve leaflets are normal. There is no significant tricuspid valve stenosis. There is trace tricuspid valve regurgitation. There is no pulmonary hypertension, estimated right ventricle systolic pressure is 20 mmHg. Pericardium/Pleural There is no pericardial effusion. Inferior Vena Cava Normal inferior vena cava with >50% collapse upon inspiration consistent with normal right atrial pressure. Aorta The aortic measurements are indexed to age and body surface area. The aortic root is normal measuring 3.2 cm with an index of 1.6 cm/m2. The proximal ascending aorta is dilated measuring 4.0 cm with an index of 2.1 cm/m2. Left Ventricular Outflow Tract Name Value Normal LVOT 2D LVOT Diameter 2.1 cm LVOT Doppler LVOT Peak Velocity 1.0 m/s LVOT Peak Gradient 4 mmHg LVOT Mean Gradient 2 mmHg LVOT VTI 20 cm LVOT VTI/AV VTI Ratio 1.0 LVOT Stroke Volume 73 ml LVOT Stroke Index 36.98 ml/m2 Pulmonic Valve Name Value Normal PV 2D RVOT Diameter (2D) 2.8 cm 1.7-2.7 RVOT Doppler RVOT Peak Velocity 89 cm/s RVOT Peak Gradient 3 mmHg RVOT Mean Gradient 2 mmHg RVOT VTI 17 cm PV Doppler PV Peak Velocity 0.88 m/s PV Peak Gradient 3 mmHg PV Mean Gradient 2 mmHg PV VTI 18 cm PV Area (Cont Eq VTI) 5.8 cm2 PV Area Index (Cont Eq VTI) 2.98 cm2/m2 PV Area (Cont Eq Carlos) 6.2 cm2 PV Area Index (Cont Eq Carlos) 3.16 cm2/m2 Mitral Valve Name Value Normal MV Doppler MV Peak Velocity 0.91 m/s MV Peak Gradient 3 mmHg MV Mean Gradient 1 mmHg MV VTI 24 cm MV Decel Nobles 415 cm/s2 MV PHT 53 ms MV Area (PHT) 4.2 cm2 4.0-5.0 MV Area (Cont Eq VTI) 3.0 cm2 MV Area Index (Cont Eq VTI) 1.52 cm2/m2 MV DVI 1.20 MV Diastolic Function MV E Peak Velocity 0.75 m/s MV A Peak Velocity 0.65 m/s MV E/A (more content not included)... Normal [facility] Ambulatory XR CHEST AP/PA AND LATon XR CHEST AP/PA AND LAT EXAMINATION: XR CHEST AP/PA AND LAT 09/15/2023 1:39 pm HISTORY: ORDERING SYSTEM PROVIDED HISTORY: hemoptysis, TECHNOLOGIST PROVIDED HISTORY: Illness/Other Reason for exam: hemoptysis Cancer History: prostate Surgery, RadiationHistory: prostatectomy, radiation AND chemo Encounter Type: Ongoing Additional signs and symptoms: Current smoker ORDERING SYSTEM PROVIDED DIAGNOSIS CODES: R04.2 Hemoptysis COMPARISON: CT chest August 21, 2023. TECHNIQUE: Frontal and lateral views of the chest. FINDINGS: There is a small opacity in the middle lobe which appears to correlate with the focal consolidation described on the CT of the chest recommending follow-up. Otherwise, lungs appear to be clear with no acute consolidative infiltrates or pleural effusion. Cardiac silhouette and mediastinal contours are stable and within normal limits. There is atherosclerotic plaquing of the thoracic aortic arch. IMPRESSION: Persistent small middle lobe opacity corresponding to the recent CT that may be an area of atelectasis or persistent infiltrate. Otherwise, no acute cardiopulmonary disease is identified. [employer] Workstation ID: [id number] Dictated by: SAHIL HERRING on FriSep 16, 2023 2:40:48 PM EDT Transcribed by: RAJIV ELIZABETH on FriSep 16, 2023 3:23:04 PM EDT Finalized by: SAHIL HERRING on FriSep 16, 2023 4:00:04 PM EDT [facility] Comment on above: Order Comment: Injur y/Trauma or Illness?:Illness/Other How long have you had these symptoms (acute/chronic)?:Acute Reason for exam?:hemoptysis History of cancer?:prostate Surgeries, chemotherapy, or radiation?:prostatectomy, radiation AND chemo Type of Exam?:Ongoing Additional signs and symptoms?:Current smoker US RENAL AND BLADDERon 08-21 US RENAL AND BLADDER EXAMINATION: US RENAL AND BLADDER HISTORY: ORDERING SYSTEM PROVIDED HISTORY: Essential hypertension, TECHNOLOGIST PROVIDED HISTORY: Illness/Other Reason for exam: hypertension Cancer History: prostate Surgery, RadiationHistory: prostatectomy Encounter Type: Initial Additional signs and symptoms: none ORDERING SYSTEM PROVIDED DIAGNOSIS CODES: I10 Essential hypertension COMPARISON: None TECHNIQUE: Ultrasound of the kidneys and bladder. FINDINGS: Both kidneys demonstrate normal echotexture and echogenicity. The right kidney measures 11.7 x 5.4 x 5.2 cm. There is no hydronephrosis of right kidney. The left kidney measures 11.5 x 5.4 x 6.2 cm. Mild hydronephrosis of left kidney with renal pelvis measuring 2 cm. The bladder is distended with prevoid volume of 213 cc. Bilateral ureteral jets are seen within bladder lumen. Postvoid volume is 6 cc. IMPRESSION: 1. Mild left hydronephrosis. No hydronephrosis on the right. 2. Small postvoid bladder volume is 6 cc. Bilateral ureteral jets are seen within bladder lumen. Workstation ID: [id number] Dictated by: MANFRED NIELSON on Sat August 23, 2023 11:51:41 AM EDT Transcribed by: MANFRED NIELSON on Sat August 23, 2023 11:51:41 AM EDT Finalized by: MANFRED NIELSON on Sat August 23, 2023 11:51:41 AM EDT Normal [facility] Comment on above: Order Comment: Injur y/Trauma or Illness?:Illness/Other How long have you had these symptoms (acute/chronic)?:Acute Reason for exam?:hypertension History of cancer?:prostate Surgeries, chemotherapy, or radiation?:prostatectomy Type of Exam?:Initial Additional signs and symptoms?:none CT CHEST LOW DOSE LUNG SCREE KARELY Carballo 08-21-2023 CT CHEST LOW DOSE LUNG SCREENING - [facility] EXAMINATION: CT CHEST LOW DOSE LUNG SCREENING - [facility] HISTORY: Dx: F17.200 (Nicotine use disorder)ORDERING SYSTEM PROVIDED HISTORY: Lung cancer screening, < 20 pk-yr smoking history (Age >= 50y), TECHNOLOGIST PROVIDED HISTORY: Illness/Other Reason for exam: lung ca screen Encounter Type: Initial Additional signs and symptoms: 59 pk yrs current smoker ORDERING SYSTEM PROVIDED DIAGNOSIS CODES: F17.200 Nicotine use disorder Injury/Trauma or Illness?:Illness/Other How long have you had these symptoms (acute/chronic)?:Chronic COMPARISON: None available at time of dictation. TECHNIQUE: Routine low-dose CT lung screen without intravenous contrast. Dose reduction techniques were achieved by using automated exposure control and/or adjustment of mA and/or kV according to patient size and/or use of iterative reconstruction technique. FINDINGS: Coronary Arteries: Coronary calcifications are mild. Cardiovascular: Mild coronary artery calcification. Mild to moderate aortic valvular calcification. Mild fusiform aneurysm of the ascending thoracic aorta measuring 4.1 cm. Moderate atheromatous calcification thoracic and proximal abdominal aorta. Mild atheromatous calcification both subclavian arteries, splenic artery, superior mesenteric artery and left renal artery. Lungs: Paraseptal and centrilobular emphysema. Mild irregular biapical pleuroparenchymal scarring. There is mild peribronchial thickening consistent with acute and/or chronic bronchitis. There is a 0.8 x 1.4 x 1.7 cm masslike area of right middle lobe consolidation which may be secondary to atelectasis or infiltrate (series 2, image 113 and coronal image 23). Nodules: There is a 0.7 cm noncalcified perifissural nodule right minor fissure (series 2, image 96). There is a 0.3 cm noncalcified right lower lobe nodule (series 2, image 97). There is a 0.2 cm noncalcified perifissural nodule left major fissure (series 2, image 87). There is a 0.5 cm noncalcified left lower lobe nodule (series 2, image 123). There are a few small calcified granuloma within the right chest. Lymphadenopathy: There are no pathologically enlarged lymph nodes. Other: The trachea and thyroid gland are unremarkable. There is a small amount of debris within the esophageal lumen suggesting either esophageal dysmotility or gastroesophageal reflux. Upper Abdomen: There is a 1.4 cm hypodense lesion within the liver measuring -6 Hounsfield units which most commonly is a cyst or a hemangioma. There is fatty infiltration of the pancreas, most pronounced and severe within the pancreatic head. Musculoskeletal: The bony structures appear osteopenic. Postop changes left acromion. Moderate degenerative changes both glenohumeral articulations and right acromioclavicular articulation. There is slight scoliosis. Partially imaged spinal fixation hardware cervical spine. Mild discogenic degenerative changes at L1-2. IMPRESSION: Paraseptal and centrilobular emphysema and mild peribronchial thickening consistent with acute and/or chronic bronchitis. There is a 0.8 x 1.4 x 1.7 cm masslike area of right middle lobe consolidation which may be secondary to atelectasis or infiltrate (series 2, image 113 and coronal image 23). A CT examination of the chest in 1 month following appropriate medical treatment is recommended to confirm complete resolution. Noncalcified nodules within the chest ranging in size from 0.2 cm to 0.7 cm. There are no pathologically enlarged lymph nodes. Mild fusiform aneurysm of the ascending thoracic aorta measuring 4.1 cm. Atherosclerotic disease as described in the body of the report. Small amount of debris within the esophageal lumen suggesting either esophageal dysmotility or gastroesophageal reflux. There is a 1.4 cm hypodense lesion within the liver which most commonly is a cyst or a hemangioma. Fatty infiltration of the pancreas, most pronounced and severe within the pancreatic head. Lung rads score 2 S. Workstation ID: [id number] Dictated by: IVAN ROSAS on FriAugust 26, 2023 3:03:55 PM EDT Transcribed by: IVAN ROSAS on FriAugust 26, 2023 3:03:55 PM EDT Finalized by: IVAN ROSAS on FriAugust 26, 2023 3:03:55 PM EDT Normal [facility] Comment on above: Order Comment: Injur y/Trauma or Illness?:Illness/Other How long have you had these symptoms (acute/chronic)?:Chronic Reason for exam?:lung ca screen Type of Exam?:Initial Additional signs and symptoms?:59 pk yrs current smoker MR Lumbar spine WO contrasto n 05-27-2023 [facility] No Panel Informationon 03-18 IMPRESSION: DEGENERATIVE CHANGE AND ALIGNMENT ABNORMALITIES WITHIN THE LUMBAR SPINE DESCRIBED. MILD DEGENERATIVE CHANGE INVOLVING BOTH HIPS. Header Operator: PSCB Transcribe Date/Time: Mar 18 2023 12:48P Dictated by : ALEX EWING MD This examination was interpreted and the report reviewed and electronically signed by: ALEX EWING MD on Mar 18 2023 12:58PM [facility] DIVISION OF RADIOLOGY No Panel InformationOrdered By: Ccf Provider on 03-18-2023 [facility] XR HIP BILATERAL 5V PEL/AP/L AT EACH HIPon 03-18-2023 * * *Final Report* * * DATE OF EXAM: Mar 17 2023 1:13PM WOX [id number] - XR HIP GORDON 5V PEL+ AP/LAT EA HIP / PROCEDURE REASON: multiple diagnoses * * * * Physician Interpretation * * * * Examination: XR LUMBAR 3V AP/LAT/L5-S1, XR HIP GORDON 5V PEL+ AP/LAT EA HIP History: 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 For numbering purposes, L4-5 is at the level of the iliac crest. Severe disc space narrowing and multilevel vacuum phenomenon from L1 through S1. No acute fracture or focal bony abnormality. Degenerative change involving the posterior elements from L4 through S1. Levoscoliosis of 22 degrees as measured from inferior L1 to superior L4. AP pelvis and 2 coned-down views of each hip show mild degenerative change. No significant joint space narrowing. No fracture or focal bony abnormality. Normal mineralization and alignment. 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 For numbering purposes, L4-5 is at the level of the iliac crest. Severe disc space narrowing and multilevel vacuum phenomenon from L1 through S1. No acute fracture or focal bony abnormality. Degenerative change involving the posterior elements from L4 through S1. Levoscoliosis of 22 degrees as measured from inferior L1 to superior L4. AP pelvis and 2 coned-down views of each hip show mild degenerative change. No significant joint space narrowing. No fracture or focal bony abnormality. Normal mineralization and alignment. SI joints are unremarkable IMPRESSION IMPRESSION: DEGENERATIVE CHANGE AND ALIGNMENT ABNORMALITIES WITHIN THE LUMBAR SPINE DESCRIBED. MILD DEGENERATIVE CHANGE INVOLVING BOTH HIPS. Header Operator: PSCAnkit Transcribe Date/Time: Mar 18 2023 12:48P Dictated by : ALEX EWING MD This examination was interpreted and the report reviewed and electronically signed by: ALEX EWING MD on Mar 18 2023 12:58PM 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 For numbering purposes, L4-5 is at the level of the iliac crest. Severe disc space narrowing and multilevel vacuum phenomenon from L1 through S1. No acute fracture or focal bony abnormality. Degenerative change involving the posterior elements from L4 through S1. Levoscoliosis of 22 degrees as measured from inferior L1 to superior L4. AP pelvis and 2 coned-down views of each hip show mild degenerative change. No significant joint space narrowing. No fracture or focal bony abnormality. Normal mineralization and alignment. SI joints are unremarkable DIVISION OF RADIOLOGY Provider, 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 For numbering purposes, L4-5 is at the level of the iliac crest. Severe disc space narrowing and multilevel vacuum phenomenon from L1 through S1. No acute fracture or focal bony abnormality. Degenerative change involving the posterior elements from L4 through S1. Levoscoliosis of 22 degrees as measured from inferior L1 to superior L4. AP pelvis and 2 coned-down views of each hip show mild degenerative change. No significant joint space narrowing. No fracture or focal bony abnormality. Normal mineralization and alignment. SI joints are unremarkable IMPRESSION IMPRESSION: DEGENERATIVE CHANGE AND ALIGNMENT ABNORMALITIES WITHIN THE LUMBAR SPINE DESCRIBED. MILD DEGENERATIVE CHANGE INVOLVING BOTH HIPS. Header Operator: CATRACHO Transcribe Date/Time: Mar 18 2023 12:48P Dictated by : ALEX EWING MD This examination was interpreted and the report reviewed and electronically signed by: ALEX EWING MD on Mar 18 2023 12:58PM EST [facility] No Panel Informationon 03-17 Radiology Study observation (narrative) [facility] SPIROMETRY - BASELINE AND PO ST DILATORon 02-03-2023 CQM39-01% POST (L/S) 0.85 L/S [facility] STE71-93% PRE (L/S) 0.83 L[facility]S [facility] FEV1 PRE (L) 1.93 L [facility] FEV1/FVC POST (%) 67 % [facility] FEV1/FVC PRE (%) 62 % [facility] FEV1_POST (L) 1.97 L [facility] FVC POST (L) 2.94 L [facility] FVC PRE (L) 3.10 L [facility] PEF POST (L/S) 4.49 L/S [facility] PEF PRE (L/S) 5.24 L/S [facility] [id number] BLon 01-31 Alpha 1 antitrypsin [Mass/Vol] 135 mg/dL 90 - 200 mg/dL [facility] Phone Note - Heme Onc-test r esultson 12-26-2022 Phone Note - Heme Onc-test results Phone Call Information: Patient Demographics: Name: LUIS ANGEL AGUILA Date: 1955 Address: [address] [place] [address] Primary Phone Number: [phone] Reason for Call: Reason for Calltest results Message: Message: Spoke with , PSA 0.23, testosterone 948. Have spoke with Dr Cohn and he said that he would just watch at this time. Nasra Holbrook PA-C Outpatient Medication Profile: * Patient Currently Takes Medications as of 13-Dec-2022 12:01 documented in Structured Notes traMADol 50 mg oral tablet: 1 tab(s) orally every 6 hours Dx G89.18, Start Date: 14-Nov-2022 Bactrim DS 800 mg-160 mg oral tablet: 1 tab(s) orally 2 times a day , Start Date: 14-Nov-2022 Tylenol 325 mg oral tablet: 3 tab(s) orally every 6 hours , Start Date: 14-Nov-2022 MiraLax oral powder for reconstitution: 17 gram(s) orally once a day , Start Date: 14-Nov-2022 Peridex 0.12% mucous membrane liquid: 15 milliliter(s) orally 2 times a day . use night before and morning of surgery. , Start Date: 04-Nov-2022 meloxicam 15 mg oral tablet: 1 tab(s) orally once a day Aleve 220 mg oral capsule: 1 cap(s) orally every 12 hours, As Needed simvastatin 40 mg oral tablet: 1 tab(s) orally once a day lisinopril 20 mg oral tablet: 1 tab(s) orally once a day gabapentin 300 mg oral capsule: 1 cap(s) orally 3 times a day omeprazole 40 mg oral delayed release capsule: 1 cap(s) orally 2 times a day hydroCHLOROthiazide 25 mg oral tablet: 1 tab(s) orally once a day aspirin 81 mg oral tablet: 1 tab(s) orally once a day Stool Softener with Laxative: 1 tab(s) orally 2 times a day Vitamin D3 50 mcg (2000 intl units) oral tablet: 1 tab(s) orally once a day Ocuvite oral tablet: 1 tab(s) orally once a day calcium citrate: 600 milligram(s) orally once a day Multiple Vitamins oral tablet: 1 tab(s) orally once a day Orders: PET CT Prostate PSMA, [place]; Outpatient Ambulatory Special Instructions: Please have prior to 06/21/22 Lupron injection per request of , 19-Jun-2022, Pending, Standard Allergies: morphine: Itching, Hives/Urticaria predniSONE: Other Lab Results: Results CBC date/time WBC HGB HCT PLT Neut 13-Dec-2022 12:03 6.0 13.8 41.9 268 3.64 BMP date/time NA K CL CO2 BUN CREAT 13-Dec-2022 12:03 135 4.2 99 N/A 11 0.93 Electronic Signatures: Nasra Holbrook (PAC) (Signed 26-Dec-2022 10:22) Authored: Phone Call Information, Outpatient Medication Profile, Orders, Allergies, Results Last Updated: 26-Dec-2022 10:22 by Nasra Holbrook (PAC) Normal [facility] Office Visit (Urology)on Follow-up visit Patient Discussion/S louiebridgette #Erectile Dysfunction -sp inflatable penile prosthesis (NB) -wound care reviewed -pumping instructions reviewed -warning signs reviewed -Dr. Torres information given to #Smoking Addiction -Smoking cessation encouraged. #Prostate Cancer -S/p prostatectomy. #Pain with urination -S/P cystoscopy, normal. By signing my name below, I, wyatt Philippe, attest that this documentation has been prepared under the direction and in the presence of Dr. Juana Scales. All medical record entries made by the scribe were at my direction and personally dictated by me. I have reviewed the chart and agree that the record accurately reflects my personal performance of the history, physical exam, discussion, and plan. Chief Complaint FUV, IPP History of Present Kgwoyby68 year old patient who presents with an elevated PSA. Hx of prostate cancer. Last Visit 12/03/2022: -sp inflatable penile prosthesis (NB) 11/14/22 -IPP care reviewed -smoking cessation discussed Today's visit: #Erectile Dysfunction -sp inflatable penile prosthesis (NB) -doing very well, feels as though he has healed well. #Elevated PSA Urinary Difficulties: yes Unexpected weight loss: yes Bone pain: yes-lower back/hips Family history of prostate cancer: yes-self Previous biopsy:yes, prostatectomy Smoker? yes [place] with agent orange exposure: No #Erectile Dysfunction 11/14/22: sp insertion of 3 piece inflatable penile prosthesis (reservoir placed superficial on right -admitted with [facility] at [facility] - notes reviewed -pain controlled -no fevers/chills -urinating well -no wound drainage -smoker? yes from 2 packs to 1/2 pack. Active Problems Problems Acute pain of right hip (719.45) (M25.551) Erectile dysfunction (607.84) (N52.9) Lumbar radiculopathy (724.4) (M54.16) Nausea and vomiting (787.01) (R11.2) Neck pain (723.1) (M54.2) Prostate cancer (185) (C61) Smoking addiction (305.1) (F17.200) Urinary incontinence (788.30) (R32) Past Medical History Problems History of radiation therapy (V15.3) (Z92.3) Social History Problems Smoking addiction (305.1) (F17.200) Allergies Medication morphine Recorded By: Rhonda Hartmann; 10/01/2022 4:48:24 PM predniSONE Recorded By: Rhonda Hartmann; 10/01/2022 4:48:24 PM Current Meds Medication NameInstruction Sulfamethoxazole-Trimethop rim 800-160 MG Oral Tablettake 1 tablet by mouth every 12 hours until finished; start 3 days prior to surgery Vitals Vital Signs Recorded: 24Dec2022 03:00PM Tobacco Useb) No Falls Screening (Age 18+)a) No falls within the last year Physical Exam Implant in place. Cylinders in appropriate location Pump in place, nonfixed, able to inflate and deflate wound healing well no signs of infection erosion or extrusion Signatures Electronically signed by : Juana Scales MD; Dec 24 2022 4:17PM EST (Author) Normal [facility] Tobacco Screening.on 023 Fall risk assessment a) No falls within the last year KR-Fbnhzfc-G edar Yun Yun Work Phone: Tobacco use status CPHS b) No WF-Vloblub-J Meridiumar Yun Yun Work Phone: CBC AND DIFFERENTIALon 12-13 % AUTOMATED IMMATURE GRAN 0.3 % Normal 0.0 - 0.9 [facility] Comment on above: Result Comment: Ania ture Granulocyte Count (IG) includes promyelocytes, myelocytes and metamyelocytes but does not include bands. Percent differential counts (%) should be interpreted in the context of the absolute cell counts (cells/L). Performed By: #### U A #### [facility] [address] [place] [address] Basophils (Bld) [#/Vol] 0.04 10*3/uL Normal 0.00 - 0.10 [facility] Comment on above: Performed By: #### U A #### [facility] [address] [place] [address] Basophils/100 WBC (Bld) 0.7 % Normal 0.0 - 2.0 [facility] Comment on above: Performed By: #### U A #### [facility] [address] [place] [address] Eosinophils (Bld) [#/Vol] 0.38 10*3/uL Normal 0.00 - 0.70 [facility] Comment on above: Performed By: #### U A #### [facility] [address] [place] [address] Eosinophils/100 WBC (Bld) 6.3 % Normal 0.0 - 6.0 [facility] Comment on above: Performed By: #### U A #### [facility] [address] [place] [address] Erythrocyte distribution width (RBC) [Ratio] 13.4 % Normal 11.5 - 14.5 [facility] Comment on above: Performed By: #### U A #### [facility] [address] [place] [address] Hematocrit (Bld) [Volume fraction] 41.9 % Normal 41.0 - 52.0 [facility] Comment on above: Performed By: #### U A #### [facility] [address] [place] [address] Hemoglobin (Bld) [Mass/Vol] 13.8 g/dL Normal 13.5 - 17.5 [facility] Comment on above: Performed By: #### U A #### [facility] [address] [place] [address] Lymphocytes (Bld) [#/Vol] 1.28 10*3/uL Normal 1.20 - 4.80 [facility] Comment on above: Performed By: #### U A #### [facility] [address] [place] [address] Lymphocytes/100 WBC (Bld) 21.3 % Normal 13.0 - 44.0 [facility] Comment on above: Performed By: #### U A #### [facility] [address] [place] [address] MCHC (RBC) [Mass/Vol] 32.9 g/dL Normal 32.0 - 36.0 [facility] Comment on above: Performed By: #### U A #### [facility] [address] [place] [address] MCV (RBC) [Entitic vol] 96 fL Normal 80 - 100 [facility] Comment on above: Performed By: #### U A #### [facility] [address] [place] [address] Monocytes (Bld) [#/Vol] 0.65 10*3/uL Normal 0.10 - 1.00 [facility] Comment on above: Performed By: #### U A #### [facility] [address] [place] [address] Monocytes/100 WBC (Bld) 10.8 % Normal 2.0 - 10.0 [facility] Comment on above: Performed By: #### U A #### [facility] [address] [place] [address] Neutrophils (Bld) [#/Vol] 3.64 10*3/uL Normal 1.20 - 7.70 [facility] Comment on above: Performed By: #### U A #### [facility] [address] [place] [address] Neutrophils/100 WBC (Bld) 60.6 % Normal 40.0 - 80.0 [facility] Comment on above: Performed By: #### U A #### [facility] [address] [place] [address] Platelets (Bld) [#/Vol] 268 10*3/uL Normal 150 - 450 [facility] Comment on above: Performed By: #### U A #### [facility] [address] [place] [address] RBC 4.35 x10E12/L Low 4.50 - 5.90 [facility] Comment on above: Performed By: #### U A #### [facility] [address] [place] [address] WBC (Bld) [#/Vol] 6.0 10*3/uL Normal 4.4 - 11.3 [facility] Comment on above: Performed By: #### U A #### [facility] [address] [place] [address] COMPREHENSIVE PANELon 2022 Albumin [Mass/Vol] 4.2 g/dL Normal 3.5 - 5.0 [facility] Comment on above: Performed By: #### C MP #### [facility] [address] [address] [place] [address] ALP [Catalytic activity/Vol] 76 U/L Normal 35 - 125 [facility] Comment on above: Performed By: #### C MP #### [facility] [address] [place] [address] ALT [Catalytic activity/Vol] 7 U/L Normal 5 - 40 [facility] Comment on above: Result Comment: Lashon ents treated with Sulfasalazine may generate falsely decreased results for ALT. Performed By: #### C MP #### [facility] [address] [place] [address] Anion gap [Moles/Vol] 11 mmol/L Normal 0 - 19 [facility] Comment on above: Performed By: #### C MP #### [facility] [address] [place] [address] AST [Catalytic activity/Vol] 19 U/L Normal 5 - 40 [facility] Comment on above: Performed By: #### C MP #### [facility] [address] [place] [address] Bilirubin [Mass/Vol] 0.4 mg/dL Normal 0.1 - 1.2 [facility] Comment on above: Performed By: #### C MP #### [facility] [address] [place] [address] Calcium [Mass/Vol] 9.6 mg/dL Normal 8.5 - 10.4 [facility] Comment on above: Performed By: #### C MP #### [facility] [address] [place] [address] Chloride [Moles/Vol] 99 mmol/L Normal 97 - 107 [facility] Comment on above: Performed By: #### C MP #### [facility] [address] [place] [address] Creatinine [Mass/Vol] 0.93 mg/dL Normal 0.40 - 1.60 [facility] Comment on above: Performed By: #### C MP #### [facility] [address] [place] [address] GFR/1.73 sq M.predicted among non-blacks MDRD (S/P/Bld) [Vol rate/Area] 89 mL/min/{1.73_m2} Normal >90 [facility] Comment on above: Result Comment: CALC ULATIONS OF ESTIMATED GFR ARE PERFORMED USING THE 2020 CKD-EPI STUDY REFIT EQUATION WITHOUT THE RACE VARIABLE FOR THE IDMS-TRACEABLE CREATININE METHODS. https://jasn.asnjournals.org/content/early/ASN.7042575 988 Performed By: #### C MP #### [facility] [address] [place] [address] Glucose [Mass/Vol] 90 mg/dL Normal 65 - 99 [facility] Comment on above: Performed By: #### C MP #### [facility] [address] [place] [address] HCO3 (Bld) [Moles/Vol] 29 mmol/L Normal 24 - 31 [facility] Comment on above: Performed By: #### C MP #### [facility] [address] [place] [address] Potassium [Moles/Vol] 4.2 mmol/L Normal 3.4 - 5.1 [facility] Comment on above: Performed By: #### C MP #### [facility] [address] [place] [address] Protein [Mass/Vol] 7.5 g/dL Normal 5.9 - 7.9 [facility] Comment on above: Performed By: #### C MP #### [facility] [address] [place] [address] Sodium [Moles/Vol] 135 mmol/L Normal 133 - 145 [facility] Comment on above: Performed By: #### C MP #### [facility] [address] [facility] [address] [place] [address] Urea nitrogen [Mass/Vol] 11 mg/dL Normal 8 - 25 [facility] Comment on above: Performed By: #### C MP #### [facility] [address] [facility] [address] [place] [address] Clinic Note - Heme Onc-Follo w Up Visiton 12-13-2022 Clinic Note - Heme Onc-Follow Up Visit Patient Visit Information: Visit Type: Follow Up Visit History of Present Illness: ID Statement: LUIS ANGEL AGUILA is a 67 year old Male Chief Complaint: distance to office Interval History: 67 yo man here for prostate cancer: H/o htn, oa, mild COPD. 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, no distant mets or osseous mets 05/29 back to OR for vesicoureteral anastomosis for leak Treatment: 06/26 Lupron 22.5 mg x 2 - stopped d/t patient preference along with apalutamide - stopped d/t constipation and brain fog 11/07/21 - 12/07/21 EBRT whole pelvis and prostate bed boost - aborted early during third week d/t bowel toxicity (severe diarrhea, c diff neg, nausea and poor by mouth intake) (patients decision) Treatment d/c after 44 [place] instead of 70 Gy Prostate bed and nodes - 1400 cGy 7 Prost bed boost 1000 cGy 5 Whole Pelvis 4600 cGy 23 History of Present Illness: ID Statement: LUIS ANGEL AGUILA is a 67 year old Male Interval History: Pt last seen 04/12/22 with slowly rising PSA 0.12 and testosterone 809 04/05/22 MR pelvis - no explanation for scrotal/perineal pain, small local recurrence along vesicourethral anastamosis - 6 mm on L He does not want further Lupron due to side effects. Last dose 06/21/22. He never really took abiaterone prescribed 06/12/22 due to side effects and not willing to try. He did get penile implant. PSA <0.1 on 06/12/22 and 09/20/22. He knows that without treatment it will likely go up. Review of Systems: System ReviewAll other systems have been reviewed and are negative for complaint. Allergies and Intolerances: Allergies: morphine: Drug, Itching, Hives/Urticaria, Active predniSONE: Drug, Other, Active Outpatient Medication Profile: * Patient Currently Takes Medications as of 13-Dec-2022 12:01 documented in Structured Notes traMADol 50 mg oral tablet: Last Dose Taken: , 1 tab(s) orally every 6 hours Dx G89.18, Start Date: 14-Nov-2022 Tylenol 325 mg oral tablet: Last Dose Taken: , 3 tab(s) orally every 6 hours , Start Date: 14-Nov-2022 MiraLax oral powder for reconstitution: Last Dose Taken: , 17 gram(s) orally once a day , Start Date: 14-Nov-2022 Peridex 0.12% mucous membrane liquid: Last Dose Taken: , 15 milliliter(s) orally 2 times a day . use night before and morning of surgery. , Start Date: 04-Nov-2022 meloxicam 15 mg oral tablet: Last Dose Taken: , 1 tab(s) orally once a day Aleve 220 mg oral capsule: Last Dose Taken: , 1 cap(s) orally every 12 hours, As Needed simvastatin 40 mg oral tablet: Last Dose Taken: , 1 tab(s) orally once a day lisinopril 20 mg oral tablet: Last Dose Taken: , 1 tab(s) orally once a day gabapentin 300 mg oral capsule: Last Dose Taken: , 1 cap(s) orally 3 times a day omeprazole 40 mg oral delayed release capsule: Last Dose Taken: , 1 cap(s) orally 2 times a day hydroCHLOROthiazide 25 mg oral tablet: Last Dose Taken: , 1 tab(s) orally once a day aspirin 81 mg oral tablet: Last Dose Taken: , 1 tab(s) orally once a day Stool Softener with Laxative: Last Dose Taken: , 1 tab(s) orally 2 times a day Vitamin D3 50 mcg (2000 intl units) oral tablet: Last Dose Taken: , 1 tab(s) orally once a day Ocuvite oral tablet: Last Dose Taken: , 1 tab(s) orally once a day calcium citrate: Last Dose Taken: , 600 milligram(s) orally once a day Multiple Vitamins oral tablet: Last Dose Taken: , 1 tab(s) orally once a day Family History: No Family History items are recorded in the problem list. Social History: Social Substance History: Smoking Statuscurrent every day smoker (1) Tobacco Usedaily Alcohol Usedenies Drug Usedenies Additional History [place] is too far for visits and treatment. Vitals and Measurements: Vitals: Temp: 36.1 HR: 76 RR: 18 BP: 155/91 SPO2%: 97 Measurements: HT(cm): 176.9 WT(kg): 77.9 BSA: 1.95 BMI: 24.8 Physical Exam: Constitutional: Well developed, awake/alert/oriented x3, no distress, alert and cooperative Eyes: PERRL, EOMI, clear sclera No sinus tenderness ENMT: Anicteric no lesions noted Head/Neck: Neck supple, no apparent injury, thyroid without mass or tenderness, No palpable lymphadenopathy Respiratory/Thorax: normal breath sounds with good chest expansion, bilaterally equal breath sounds without wheezes, rhonchi or rales Cardiovascular: Regular, rate and rhythm, no murmurs, 2+ equal pulses of the extremities, normal S 1and S 2 Gastrointestinal: No tympany to percussion, without notable hepatomegaly or splenomegaly. No suprapubic pain. No inguinal lymphadenopathy, no palp (more content not included)... Normal [facility] Clinic Note - Intakeon 12-13 Clinic Note - Intake Patient Visit Infor mation: Visit TypeFollow Up Visit Source of Informationpatient Admission Information: Admission Since Last VisitYes, 3 weeks ago [facility] Name of LocationHospital, Bowel blockage Admission [id number] Vital Signs: Temp (degrees C)36.1 degrees C Heart Rate (beats/min)76 beats per minute Respiration (breaths/min)18 breath per minute BP Systolic (mm Hg)Image has been removed. 155 mmHg BP Diastolic (mm Hg)Image has been removed. 91 mmHg BP Mean (mm Hg)Image has been removed. 112 mmHg Height in cm176.9 centimeter(s) Weight in kg77.9 kilogram(s) Weightstanding BMI (kg/m2)24.8 kg/M2 BSA (m2)1.95 M2 Last 3 Weights & HeightsDate: Weight/Scale Type:Height: 01-Oct-2022 12:4879.5 kg 176.9 cm 20-Sep-2022 08:5578.5 kg 176.9 cm 02-Aug-2022 14:5879.7 kg 176.9 cm SpO2 (%)97 % SpO2 Patient Onroom air Pain Screening: Patient States Painno (0) Allergies: morphine: Drug, Itching, Hives/Urticaria, Active predniSONE: Drug, Other, Active Outpatient Medication Profile: * Patient Currently Takes Medications as of 13-Dec-2022 12:01 documented in Structured Notes traMADol 50 mg oral tablet: Last Dose Taken: , 1 tab(s) orally every 6 hours Dx G89.18, Start Date: 14-Nov-2022 Bactrim DS 800 mg-160 mg oral tablet: Last Dose Taken: , 1 tab(s) orally 2 times a day , Start Date: 14-Nov-2022 Tylenol 325 mg oral tablet: Last Dose Taken: , 3 tab(s) orally every 6 hours , Start Date: 14-Nov-2022 MiraLax oral powder for reconstitution: Last Dose Taken: , 17 gram(s) orally once a day , Start Date: 14-Nov-2022 Peridex 0.12% mucous membrane liquid: Last Dose Taken: , 15 milliliter(s) orally 2 times a day . use night before and morning of surgery. , Start Date: 04-Nov-2022 meloxicam 15 mg oral tablet: Last Dose Taken: , 1 tab(s) orally once a day Aleve 220 mg oral capsule: Last Dose Taken: , 1 cap(s) orally every 12 hours, As Needed simvastatin 40 mg oral tablet: Last Dose Taken: , 1 tab(s) orally once a day lisinopril 20 mg oral tablet: Last Dose Taken: , 1 tab(s) orally once a day gabapentin 300 mg oral capsule: Last Dose Taken: , 1 cap(s) orally 3 times a day omeprazole 40 mg oral delayed release capsule: Last Dose Taken: , 1 cap(s) orally 2 times a day hydroCHLOROthiazide 25 mg oral tablet: Last Dose Taken: , 1 tab(s) orally once a day aspirin 81 mg oral tablet: Last Dose Taken: , 1 tab(s) orally once a day Stool Softener with Laxative: Last Dose Taken: , 1 tab(s) orally 2 times a day Vitamin D3 50 mcg (2000 intl units) oral tablet: Last Dose Taken: , 1 tab(s) orally once a day Ocuvite oral tablet: Last Dose Taken: , 1 tab(s) orally once a day calcium citrate: Last Dose Taken: , 600 milligram(s) orally once a day Multiple Vitamins oral tablet: Last Dose Taken: , 1 tab(s) orally once a day Notification: NotificationsAnnual Screens Due Dates ____ Advanced Directives: Nov 14, 2023 Family Violence: Nov 14, 2023 Depression (Due every 6 months for ONC only; all others use Annual date): May 13, 2023 Substance Use - Alcohol: Nov 14, 2023 Substance Use - Drugs: Nov 14, 2023 Nutrition: Nov 14, 2023 Learning: Nov 14, 2023 Travel History: COVID-19 Screening Completedno exposure or symptoms Travel or ExposureNO travel to International locations in the past 30 days Falls: Have you fallen in the last 6 monthsno Do you have a fear of fallingno Do you feel you need assistanceno Is the patient using an assistive deviceno Not a falls riskimplement environmental risk factors interventions Spiritual/Procedural: Spiritual/cultural/religio us practices important for us to knowno Oncology Nutrition: I am now taking(1) normal food but less than normal amount During the past 2 weeks, weight has(0) not changed Intake past month, compared to normal intake(1) less than usual Problems keeping me from eating past 2 weeks (0) no problem eating In the past month, my activity/functioning rating is(0) normal with no limitations Clinician notifiedno Score 6 or > notify clinician2 Violence: Are you or have you been threatened or abused physically,emotionally or sexually abused by anyoneno Do you feel UNSAFE going back to the place you are livingno Depression: Past 2 wks: [place] down, depressed or hopelessno Past 2 wks: [place] little interest/pleasure doing thingsno Any Thoughts of Harming Othersno In the Past Month: Have you wished you were or could go to sleep and not wake upno In the Past Month: Have you had any actual thoughts of killing yourselfno Lifetime: Have you ever done, started to do, or prepared to do anything to end your lifeno Electronic Signatures: Luci Munguia (RIGOBERTO I) (Signed 13-Dec-2022 12:01) Authored: Patient Visit Information, Vital Signs, Allergies, Outpatient Medication Profile, Notification, Travel History, Falls, Spiritual/Procedural, Oncology Nutrition, Vi (more content not included)... Normal [facility] Complete Blood Count + Diffe torres 12-13-2022 Basophils/100 WBC (Bld) 0.7 % 0.0 - 2.0 RA-Mermxle-W [facility] [place] Work Phone: [phone] Erythrocyte distribution width (RBC) [Ratio] 13.4 % See Below ZP-Luwkrse-Z edar [place] Work Phone: Comment on above: Reference Range: 11. 5 - 14.5 Hematocrit (Bld) [Volume fraction] 41.9 % See Below YC-Axbzxsi-F ed[facility] [place] Work Phone: Comment on above: Reference Range: 41. 0 - 52.0 Hemoglobin (Bld) [Mass/Vol] 13.8 g/dL See Below OQ-Wqdwtzp-U edar [place] Work Phone: Comment on above: Reference Range: 13. 5 - 17.5 Lymphocytes/100 WBC (Bld) 21.3 % See Below SP-Moyawhk-C [facility] [place] Work Phone: Comment on above: Reference Range: 13. 0 - 44.0 MCHC (RBC) [Mass/Vol] 32.9 g/dL See Below QH-Pftmmwm-D ed[facility] [place] Work Phone: Comment on above: Reference Range: 32. 0 - 36.0 MCV (RBC) [Entitic vol] 96 fL 80 - 100 HV-Tocoete-P ed[facility] [place] Work Phone: [phone] Monocytes/100 WBC (Bld) 10.8 % 2.0 - 10.0 XX-Srspytn-D [facility] [place] Work Phone: [phone] Neutrophils/100 WBC (Bld) 60.6 % See Below JO-Exznbpp-G [facility] [place] Work Phone: Comment on above: Reference Range: 40. 0 - 80.0 Platelets (Bld) [#/Vol] 268 10*3/uL 150 - 450 GV-Lujkpph-T ed[facility] [place] Work Phone: RBC (Bld) [#/Vol] 4.35 {x10E12/L} below low threshold See Below BX-Vjgoyqq-B ed[facility] [place] Work Phone: [phone] Comment on above: Reference Range: 4.5 0 - 5.90 WBC (Bld) [#/Vol] 6.0 10*3/uL 4.4 - 11.3 MG-Uro logy-C [facility] [place] Work Phone: [phone] Complete Blood Count + Differential 0.04 {x10E9/L} See Below AD-Rrhhcav-Q [facility] [place] Work Phone: [phone] Comment on above: Reference Range: 0.0 0 - 0.10 Complete Blood Count + Differential 0.38 {x10E9/L} See Below QI-Ylvyrek-P ed[facility] [place] Work Phone: [phone] Comment on above: Reference Range: 0.0 0 - 0.70 Complete Blood Count + Differential 0.65 {x10E9/L} See Below AY-Qeefsut-S ed[facility] [place] Work Phone: Comment on above: Reference Range: 0.1 0 - 1.00 Complete Blood Count + Differential 1.28 {x10E9/L} See Below AU-Ivineal-M ed[facility] [place] Work Phone: [phone] Comment on above: Reference Range: 1.2 0 - 4.80 Complete Blood Count + Differential 3.64 {x10E9/L} See Below VN-Jcvunol-K ed[facility] [place] Work Phone: Comment on above: Reference Range: 1.2 0 - 7.70 Complete Blood Count + Differential 6.3 % 0.0 - 6.0 EF-Kghofpj-K ed[facility] [place] Work Phone: [phone] Complete Blood Count + Differential 0.3 % 0.0 - 0.9 VK-Azkcldz-X ed[facility] [place] Work Phone: [phone] Comment on above: Immature Granulocyte Count (IG) includes promyelocytes, myelocytes and metamyelocytes but does not include bands. Percent differential counts (%) should be interpreted in the context of the absolute cell counts (cells/L). Laboratory - Chemistry and C hemistry - challengeon 12-13-2022 Albumin BCP dye [Mass/Vol] 4.2 g/dL 3.5 - 5.0 VR-Tqdxpxn-Q ed[facility] [place] Work Phone: ALP [Catalytic activity/Vol] 76 U/L 35 - 125 NG-Iitbmgl-Y edar [place] Work Phone: [phone] ALT With P-5'-P [Catalytic activity/Vol] 7 U/L 5 - 40 HR-Dnovtmm-I [place] Work Phone: [phone] Comment on above: Patients treated wit h Sulfasalazine may generate falsely decreased results for ALT. Anion gap [Moles/Vol] 11 mmol/L 0 - 19 CS-Xltonlf-W [facility] Work Phone: AST With P-5'-P [Catalytic activity/Vol] 19 U/L 5 - 40 TJ-Nbrdvyr-Z [facility] Work Phone: Bilirubin [Mass/Vol] 0.4 mg/dL 0.1 - 1.2 MG-U rology-C [facility] Work Phone: [phone] Calcium [Mass/Vol] 9.6 mg/dL 8.5 - 10.4 MG-Uro logy-C [facility] Work Phone: [phone] Chloride [Moles/Vol] 99 mmol/L 97 - 107 MG-U rology-C [facility] [place] Work Phone: [phone] CO2 [Moles/Vol] 29 mmol/L 24 - 31 MG-Urolog y-C [facility] Work Phone: Creatinine [Mass/Vol] 0.93 mg/dL See Below XY-Rhnstoz-J ed[facility] [place] Work Phone: Comment on above: Reference Range: 0.4 0 - 1.60 Glucose [Mass/Vol] 90 mg/dL 65 - 99 MG-Uro logy-C ed[facility] [place] Work Phone: Potassium [Moles/Vol] 4.2 mmol/L 3.4 - 5.1 PX-Napkfcq-F edar [place] Work Phone: [phone] Protein [Mass/Vol] 7.5 g/dL 5.9 - 7.9 MG-Uro logy-C edar [place] Work Phone: [phone] Sodium [Moles/Vol] 135 mmol/L 133 - 145 MG-Uro logy-C ed[facility] [place] Work Phone: Urea nitrogen [Mass/Vol] 11 mg/dL 8 - 25 PS-Qkodadx-J [facility] [place] Work Phone: No Panel Informationon 12-13 89 {mL/min/1.73m2} >90 MG-Uro logy-C [facility] [place] Work Phone: Comment on above: CALCULATIONS OF [place] MATED GFR ARE PERFORMED USING THE 2020 CKD-EPI STUDY REFIT EQUATION WITHOUT THE RACE VARIABLE FOR THE IDMS-TRACEABLE CREATININE METHODS.https://jasn.asnjournals.org/content//ASN .6706807275 PROSTATE SPECIFIC AGon 12-13 Prostate specific Ag [Mass/Vol] 0.23 ng/mL Normal 0.00 - 4.00 [facility] Comment on above: Result Comment: The FDA requires that the method used for PSA assay be reported to the physician. Values obtained with different assay methods must not be used interchangeably. This test was performed at [facility] using the [employer] PSA method, which is a sandwich immunoassay using chemiluminescence for quantitation. The assay is approved for measurement of prostate-specific antigen (PSA) in serum and may be used in conjunction with a digital rectal examination in men 50 years and older as an aid in detection of prostate cancer. 3-Kmtew-qrseybynx inhibitors (e.g. Proscar, Finasteride, Avodart, Dutasteride and Rosita) for the treatment of BPH have been shown to lower PSA levels by an average of 50% after 6 months of treatment. Performed By: #### P #### [facility] [id number] [facility] [place] [id number] Prostate Specific Antigenon 12-13-2022 Prostate specific Ag [Mass/Vol] 0.23 ng/mL See Below UE-Hbwdtik-I anita [place] Work Phone: Comment on above: Reference Range: 0.0 0 - 4.00The FDA requires that the method used for PSA assay be reported to the physician. Values obtained with different assay methods must not be used interchangeably. This test was performed at [facility] using the [employer] PSA method, which is a sandwich immunoassay using chemiluminescence for quantitation. The assay is approvedfor measurement of prostate-specific antigen (PSA) in serum and may be used in conjunction with a digital rectalexamination in men 50 years and older as an aid in detection of prostate cancer. 8-Pcjcs-baniwkkey inhibitors (e.g. Proscar, Finasteride, Avodart, Dutasteride and Rosita) for the treatment of BPH have been shown to lower PSA levels by an average of 50% after 6 months of treatment. SURGICAL PATHOLOGYon 023 Case Report Surgical Pathology R eport Case: [id number] Authorizing Provider: Devin Sanchez MD Collected: 12/12/2022 10:33 AM Ordering Location: Ambulatory Surgery Received: 12/12/2022 02:34 PM Pathologist: Ivet Cerda MD Specimen: RECTAL BIOPSY [facility] FINAL DIAGNOSIS A. Rectum, biopsy: - Rectal mucosa with no significant pathologic change. [facility] Gross Description A. RECTAL BIOPSY Received in formalin is one piece of chappell, soft tissue measuring 0.4 x 0.2 x 0.2 cm. Totally submitted in one cassette. Gross examination performed at [facility], [address] [place], [place] [id number] KK December 13, 2022 12:37 AM [facility] Performing Lab Diagnostic interpret ation performed at [facility], [address] [place] [address] CLIA# [id number] [employer] Officer: Miguelito Bai M.D. [facility] TESTOSTERONEon 12-13-2022 Testosterone [Mass/Vol] 948 ng/dL Normal 240 - 1000 [facility] Comment on above: Result Comment: Nand rolone decanoate, 11 Beta-hydroxytestosterone, androstenedione, testosterone propionate and 53-xkbm-lejyywkgaodn strongly cross react with this test method. Biotin interference may cause falsely elevated results. Patients taking a Biotin dose of up to 5 mg/day should refrain from taking Biotin for 24 hours before sample collection. Providers may contact their local laboratory for further information. Performed By: #### U A #### [facility] [address] [place] [address] Testosterone, Levelon 2022 Testosterone [Mass/Vol] 948 ng/dL 240 - 1000 JH-Huolija-V anita [place] Work Phone: Comment on above: Nandrolone decanoate , 11 Beta-hydroxytestosterone, androstenedione, testosterone propionate and 52-ipoo-eepsyqhkozua strongly cross react with this test method. Biotin interference may cause falsely elevated results. Patients taking a Biotin dose of up to 5 mg/day should refrain from taking Biotin for 24 hours before sample collection. Providers may contact their local laboratory for further information. COLONOSCOPY SCREENINGon [facility] Office Visit (Urology)on Follow-up visit Patient Discussion/S ummary - sp inflatable penile prosthesis (NB) -wound care reviewed -pumping instructions reviewed -warning signs reviewed #Smoking Addiction -Smoking cessation encouraged. fu in 3 weeks History of Present Illness 67 year old patient who presents with an elevated PSA. Hx of prostate cancer. Today's visit: #Pain with urination -Presents today for cystoscopy. #Elevated PSA Urinary Difficulties: yes Unexpected weight loss: yes Bone pain: yes-lower back/hips Family history of prostate cancer: yes-self Previous biopsy:yes, prostatectomy Smoker? yes [place] with agent orange exposure: No #Erectile Dysfunction 11/14/22: sp insertion of 3 piece inflatable penile prosthesis (reservoir placed superficial on right -admitted with [facility] at [facility] - notes reviewed -pain controlled -no fevers/chills -urinating well -no wound drainage -smoker? yes from 2 packs to 1/2 pack. Active Problems Problems Acute pain of right hip (719.45) (M25.551) Erectile dysfunction (607.84) (N52.9) Lumbar radiculopathy (724.4) (M54.16) Nausea and vomiting (787.01) (R11.2) Neck pain (723.1) (M54.2) Prostate cancer (185) (C61) Smoking addiction (305.1) (F17.200) Urinary incontinence (788.30) (R32) Past Medical History Problems History of radiation therapy (V15.3) (Z92.3) Social History Problems Smoking addiction (305.1) (F17.200) Allergies Medication morphine Recorded By: Rhonda Hartmann; 10/01/2022 4:48:24 PM predniSONE Recorded By: Rhonda Hartmann; 10/01/2022 4:48:24 PM Current Meds Medication NameInstruction Sulfamethoxazole-Trimethop rim 800-160 MG Oral Tablettake 1 tablet by mouth every 12 hours until finished; start 3 days prior to surgery Physical Exam GENITOURINARY / GENITALIA: Testicles descended bilaterally, testicular size 15 cc bilaterally, soft, nontender to palpation Varicocele: none palpable Hydrocele: none palpable Vas deferens and epididymis palpable bilaterally Penis: normal circumcised phallus without lesions, meatus in normal anatomic location. Implant in place. Cylinders in appropriate location Pump in place, nonfixed, able to inflate and deflate wound healing well - penoscrotal no signs of infection erosion or extrusion Signatures Electronically signed by : Juana Scales MD; Dec 03 2022 1:37PM EST (Author) Normal [facility] Office Visit (Urology)on Follow-up visit Diagnoses/Problems Assessed Erectile dysfunction (607.84) (N52.9) Nausea and vomiting (787.01) (R11.2) Patient Discussion/Summary 67 year old patient with history of prostate cancer s/p prostatectomy and ED now s/p IPP with Dr. Scales on 11/14/2022. He reports persistent nausea with vomiting since surgery. Reports abdominal distension and bloating. He has had 1 BM. He is passing flatus. He is unable to keep any medications down. He attempted to take Miralax but was unable to keep this down. No fevers or chills. Pain is well controlled. 1) ED s/ip IPP - Surgically looks great - Drain removed without issue - Discussed postoperative care - Follow-up with Dr. Scales in 2 weeks 2) Nausea, vomiting, abdominal distension - Recommend ER for labs and imaging, rule out obstruction - Patient and in agreement Chief Complaint POV TOV Adult Risk ScreeningThere are no spiritual/cultural practices/values/needs that are important to know Initial Fall Risk Screening: LUIS ANGEL has not fallen in the last 6 months. His fall did not result in injury. LUIS ANGEL does not have a fear of falling. He does not need assistance with sitting, standing or walking. Does not need assistance walking in his home. He does not need assistance in an unfamiliar setting. The patient is not using an assistive device. Pain Scale: On a scale of 0 to 10, the patient rates the pain at 0. History of Present Illness 67 year old patient with history of prostate cancer s/p prostatectomy and ED now s/p IPP with Dr. Scales on 11/14/2022. He reports persistent nausea with vomiting since surgery. Reports abdominal distension and bloating. He has had 1 BM. He is passing flatus. He is unable to keep any medications down. He attempted to take Miralax but was unable to keep this down. No fevers or chills. Pain is well controlled. Review of Systems Constitutional: no fever, no chills and not feeling poorly. Eyes: no eyesight problems. ENT: no hearing loss, no nosebleeds and no sore throat. Cardiovascular: no chest pain, no palpitations and no extremity edema. Respiratory: no shortness of breath, no wheezing, no cough and no shortness of breath during exertion. Gastrointestinal: no abdominal pain, no constipation, no heartburn, no diarrhea, no vomiting and no blood in stools. Genitourinary: no dysuria, no incontinence, normal micturition and no testicular pain. Musculoskeletal: no arthralgias and no gait abnormality. Integumentary: no skin lesions, no skin wound and no change in a mole. Neurological: no confusion, no dizziness, no fainting and no difficulty walking. Psychiatric: not suicidal, no anxiety and no depression. All other systems have been reviewed and are negative for complaint. Active Problems Problems Acute pain of right hip (719.45) (M25.551) Erectile dysfunction (607.84) (N52.9) Lumbar radiculopathy (724.4) (M54.16) Neck pain (723.1) (M54.2) Prostate cancer (185) (C61) Smoking addiction (305.1) (F17.200) Urinary incontinence (788.30) (R32) Past Medical History Problems History of radiation therapy (V15.3) (Z92.3) Social History Problems Smoking addiction (305.1) (F17.200) Allergies Medication morphine Recorded By: Rhonda Hartmann; 10/01/2022 4:48:24 PM predniSONE Recorded By: Rhodna Hartmann; 10/01/2022 4:48:24 PM Current Meds Medication NameInstruction Sulfamethoxazole-Trimethop rim 800-160 MG Oral Tablettake 1 tablet by mouth every 12 hours until finished; start 3 days prior to surgery Vitals Vital Signs Recorded: [id number] 01:25PM Height5 ft 11 in Gdavda577 lb BMI Zfuyohfame45.13 kg/m2 BSA Calculated1.98 Physical Exam General: Well developed, well nourished, alert and cooperative, appears in no acute distress Eyes: Non-injected conjunctiva, sclera clear, no proptosis Cardiac: Extremities are warm and well perfused. No edema, cyanosis or pallor. Lungs: Breathing is easy, non-labored. Speaking in clear and complete sentences. Normal diaphragmatic movement. MSK: Ambulatory with steady gait, unassisted Neuro: alert and oriented to person, place and time Psych: Demonstrates good judgement and reason, without hallucinations, abnormal affect or abnormal behaviors. Skin: no obvious lesions, no rashes. : penoscrotal incision C,D,I . ANGELA with scant SS drainage. Cylinders are in good position; pump palpable midline scrotum Signatures Electronically signed by : MARGIE Crane; Nov 18 2022 1:38PM EST (Author) Normal [facility] ABO/RH GROUP TESTon 11-15-19 23 ABO TYPE O Normal [facility] [place][note 2] Comment on above: Performed By: #### V ERAB #### [facility] [address] [place] [address] RH TYPE Positive Normal [facility] [place][note 2] Comment on above: Performed By: #### V ERAB #### [facility] [address] [place] [address] Homegoing Instructionson Homegoing Instructions Care Providers: Juana Scales(Attending): Additional Instructions: Additional Information: Additional Instructions Image has been removed. Post-Operative Instructions: Penile Prosthesis Diet You may experience nausea (a side effect of anesthesia) this usually goes away in 24 hours. We recommend drinking fluids and having a light meal in the first 24 hours after surgery then resuming your regular diet. Activity No strenuous exercise, work, or any activity involving lifting, pulling, or pushing over 15 pounds for 4-6 weeks after surgery We recommend you walk for 10 minutes out of every hour you are awake to help prevent the possibility of blood clot formation in your legs No driving for 1 week or while taking prescription pain medication No sexual activity of any kind for 6 weeks and until cleared by our office You will go home with the device partially inflated. You should wear an athletic supporter (jock strap) or tight fitting jockey shorts with your penis lying against your lower abdomen pointing towards your head for the first week after surgery. This will improve pain control and allow for better healing. You may shower 48 hours after surgery, allowing the shower water to clean the incisional area. Avoid scrubbing the incision. You may take tub baths after your incision is healed. Swelling/Bruising You will experience swelling and bruising of the scrotum/penis after surgery To control swelling and reduce pain, we recommend you wear an athletic supporter (jock strap) or tight-fitting shorts with your penis lying against your lower abdomen pointing toward your head for the first week after surgery We recommend you apply ice to the scrotum for the first 2-4 days after surgery. You should be lying down or sitting in a recliner with the legs raised, position a hand towel under the scrotum (for elevation) and apply ice (frozen peas or corn work well) with a washcloth between the skin and the ice pack. You should alternate 15-30 minutes of ice on then 15-30 minutes of no ice throughout the day while awake Your scrotum may initially look black and blue an overtime with turn yellowish. This will go away on its own and your normal skin color will return Pain You will be given a prescription for pain medication to be taken as needed. The application of ice, wearing the athletic supporter and controlling activity all will help to reduce discomfort. If you feel you do not need prescription pain medication, you may use Tylenol or Motrin. Most patients are off prescription pain medication within 1-2 weeks after surgery. Self Inflation: It is possible for the prosthesis to spontaneously inflate after surgery, this is not an emergency. Take your pain medication for any discomfort that this may cause and call our office. When to Call the Surgeon: Fever higher than 102F Repeated vomiting with inability to keep down fluids Severe pain not controlled with medication Separation of your incision Pus like discharge, increasing redness, increasing pain of the incision site For questions or problems, call our office at Evenings and weekends: call the hospital refinery operator coking and ask for the ertuxro-yrxpcqgc-be-call. In case of emergency, call [phone]. Follow-Up Appointment: You have a scheduled appointment for drain removal in the coming days. Please call if you need to reschedule. Electronic Signatures: Salazar Wilkinson (Resident)) (Signed 14-Nov-2022 09:55) Authored: Hospitalization Information, Additional Instructions Last Updated: 14-Nov-2022 09:55 by Salazar Wilkinson (Resident)) Normal [facility] [place][note 2] Order Reconciliationon 11-14 Order Reconciliation Page 1 Discharge Reconciliation Document Reconciliation Type: Discharge requested on behalf of Salazar Wilkinson (Resident) done by Salazar Wilkinson ( (Resident)) Discharge - Reconciliation: 14-Nov-2022 09:58 by: Salazar Wilkinson ( (Resident)) Home Medications EnteredHOME MEDICATIONS AT DISCHARGE DateReconciliation Comment/ Additional Information Aleve 220 mg oral capsule 1 cap(s) orally every 12 hours, As Needed 04-Nov-2022 07:48 Aleve 220 mg oral capsule 1 cap(s) orally every 12 hours, As Needed 04-Nov-2022 07:48 Aleve 220 mg oral capsule is continued as Aleve 220 mg oral capsule aspirin 81 mg oral tablet 1 tab(s) orally once a day 12-Jun-2022 10:55 aspirin 81 mg oral tablet 1 tab(s) orally once a day 12-Jun-2022 10:55 aspirin 81 mg oral tablet is continued as aspirin 81 mg oral tablet calcium citrate 600 milligram(s) orally once a day 12-Jun-2022 10:56 calcium citrate 600 milligram(s) orally once a day 12-Jun-2022 10:56 calcium citrate is continued as calcium citrate gabapentin 300 mg oral capsule 1 cap(s) orally 3 times a day 12-Jun-2022 10:54 gabapentin 300 mg oral capsule 1 cap(s) orally 3 times a day 12-Jun-2022 10:54 gabapentin 300 mg oral capsule is continued as gabapentin 300 mg oral capsule hydroCHLOROthiazide 25 mg oral tablet 1 tab(s) orally once a day 12-Jun-2022 10:54 hydroCHLOROthiazide 25 mg oral tablet 1 tab(s) orally once a day 12-Jun-2022 10:54 hydroCHLOROthiazide 25 mg oral tablet is continued as hydroCHLOROthiazide 25 mg oral tablet lisinopril 20 mg oral tablet 1 tab(s) orally once a day 12-Jun-2022 10:53 lisinopril 20 mg oral tablet 1 tab(s) orally once a day 12-Jun-2022 10:53 lisinopril 20 mg oral tablet is continued as lisinopril 20 mg oral tablet meloxicam 15 mg oral tablet 1 tab(s) orally once a day 04-Nov-2022 07:47 meloxicam 15 mg oral tablet 1 tab(s) orally once a day 04-Nov-2022 07:47 meloxicam 15 mg oral tablet is continued as meloxicam 15 mg oral tablet Multiple Vitamins oral tablet 1 tab(s) orally once a day 12-Jun-2022 10:56 Multiple Vitamins oral tablet 1 tab(s) orally once a day 12-Jun-2022 10:56 Multiple Vitamins oral tablet is continued as Multiple Vitamins oral tablet Ocuvite oral tablet 1 tab(s) orally once a day 12-Jun-2022 10:55 Ocuvite oral tablet 1 tab(s) orally once a day 12-Jun-2022 10:55 Ocuvite oral tablet is continued as Ocuvite oral tablet omeprazole 40 mg oral delayed release capsule 1 cap(s) orally 2 times a day 12-Jun-2022 10:54 omeprazole 40 mg oral delayed release capsule 1 cap(s) orally 2 times a day 12-Jun-2022 10:54 omeprazole 40 mg oral delayed release capsule is continued as omeprazole 40 mg oral delayed release capsule Peridex 0.12% mucous membrane liquid 15 milliliter(s) orally 2 times a day . use night before and morning of surgery. 04-Nov-2022 08:19 Peridex 0.12% mucous membrane liquid 15 milliliter(s) orally 2 times a day . use night before and morning of surgery. 04-Nov-2022 08:19 Peridex 0.12% mucous membrane liquid is continued as Peridex 0.12% mucous membrane liquid simvastatin 40 mg oral tablet 1 tab(s) orally once a day 12-Jun-2022 10:53 simvastatin 40 mg oral tablet 1 tab(s) orally once a day 12-Jun-2022 10:53 simvastatin 40 mg oral tablet is continued as simvastatin 40 mg oral tablet Stool Softener with Laxative 1 tab(s) orally 2 times a day 12-Jun-2022 10:55 Stool Softener with Laxative 1 tab(s) orally 2 times a day 12-Jun-2022 10:55 Stool Softener with Laxative is continued as Stool Softener with Laxative Vitamin D3 50 mcg (2000 intl units) oral tablet 1 tab(s) orally once a day 12-Jun-2022 10:55 Vitamin D3 50 mcg (2000 intl units) oral tablet 1 tab(s) orally once a day 12-Jun-2022 10:55 Vitamin D3 50 mcg (2000 intl units) oral tablet is continued as Vitamin D3 50 mcg (2000 intl units) oral tablet Current OrdersDateHOME MEDICATIONS AT DISCHARGE DateReconciliation Comment/ Additional Information Albuterol 2.5 mg/ 3 mL Nebulizer Soln (PROVENTIL)DOSE = 3 mL Inhalation Once via Nebulizer, PRN Wheezing (PACU)Clinician Notes: Autumn-operative order ONLY 13-Nov-2022 10:36 Albuterol 2.5 mg/ 3 mL Nebulizer Soln is not required HYDROmorphone Injectable (DILAUDID)DOSE = 0.5 mg IntraVenous Push Every 5 Minutes, PRN Pain - Severe (7-10) (PACU)Clinician Notes: Autumn-operative order ONLYMax total of 4 mg regardless of dose. 13-Nov-2022 10:36 HYDROmorphone Injectable is not required Labetalol Injectable (TRANDATE)DOSE = 5 mg IntraVenous Push Once, PRN For SBP>180, DBP>100, HR>60Clinician Notes: Autumn-operative order ONLY 13-Nov-2022 10:36 Labetalol Injectable is not required Lidocaine 1% Injectable DOSE = 0.1 mL SubCutaneous Once, PRN analgesia for IV startClinician Notes: Autumn-operative order ONLYTo be used for IV Insertion Only 13-Nov-2022 10:36 Lidocaine 1% Injectable is not required Ondansetron Injectable (ZOFRAN)DOSE = 4 mg IntraVenous Push Once, PRN PONV (more content not included)... Normal [facility] [place]note 2] Patient Profile - Preop v3on 11-14-2022 Patient Profile - Preop v3 Patient Profile - Preop: Initial Info: Patient DemographicsName: LUIS ANGEL AGUILA Date: 1955 Address: [address] [place] [address] [place] [address] Primary Phone [phone] How to be Addressedbilly Spoken Language PreferredEnglish Source of Informationpatient Stated Reason for Admissionpenile implant Primary Contact Name and Numberbarb () [phone] Medications Brought to Hospitalno General Health: Weight in kg79.1 kilogram(s) Weight in agy481.3 pound(s) Weight Methodactual (measured) Scale Typestanding Height in feet5 feet Height in soyhjo65.94 inch(es) Height in cm180.1 centimeter(s) Height Methodstated BMI (kg/m2)24.386 square meter Patient or Family Member Reaction to Anesthesiano previous reaction; no previous family member reaction Blood Avoidance/Restrictionsnone Previous Transfusion Reactionnot applicable Health Mgmt: Symptoms/Conditions Managed at HomeMedical History HTN HLD COPD Right hip pain Neck pain Lumbar radiculopathy ED Prostate cancer -- grade group 2, inv seminal vesicles bilat, extraprostatic extension, PNI/LVI, positive surgical margin, [address] pos - pT3bN1 ([place] 3+4) --s/p androgen deprivation therapy (ADT) and RT (11/2021-12/2021), prostatectomy (04/2021) Urinary incontinence Nicotine dependence --1/2 PPD x 60 years STOP BANG = HTN, >50, male = 3 Caprini = 6 Surgical History Prostatectomy (04/2021) appendectomy b/l inguinal hernia repair L total shoulder replacement L acromion repair R shoulder surgery x 3 right bicep tendon repair lumbar spine surgery cervical spine surgery Barriers to Managing Healthnone Relationship/Environ: Lives Withspouse Living Arrangementscondominium Resource/Environmental Concernsnone Anticipated Transition [facility] Services Anticipated at Transitionnone Tobacco Use: Tobacco Useyes Tobacco Typecigarettes Last Tobacco [id number] Pre-op Checklist: Arrival [id number] Arrival Time08:20 Procedure Typeinflatable penile prothesis implant NPOyes Last Food [id number] 19:00 Last Clear Fluid [id number] 04:30 ID Band On Patientpatient ID (name), allergy, falls risk Consent Signedpending H&P Completepending Anesthesia Assessment Completedpending EKG Performedsee results tab Chest X-Ray Performednot ordered Preop Antibioticsstarted in preop Type and Screen Resultedyes Chlorhexadine Bath Givencompleted at home, given night before surgery, completed morning of surgery Nasal Antiseptic Appliednot applicable Soap and Water Bath the Night Before Surgerynot applicable Hair Washed with Shampoonot applicable Bowel Prepno Surgical Site Infection Preventionyes Pain Scales and Managementyes Additional Information: Information Review: Allergies, Home Meds and Significant Events have been Reviewed and Verified with Patient/Familyyes Allergy, Intolerance, Adverse Event: Allergies: morphine: Drug, Itching, Hives/Urticaria, Active predniSONE: Drug, Other, Active Electronic Signatures: Digna Morgan (BRYSON) (Signed 14-Nov-2022 08:29) Authored: Initial Info, General Health, Health Mgmt, Relationship/Environ, Tobacco Use, Pre-op Checklist, Additional Information Last Updated: 14-Nov-2022 08:29 by Digna Morgan) [facility] - Blood bankon ABO group Nom (Bld) O MG-Ur ology-C anita Chavarria Work Phone: Rh immune globulin screen (Bld) [Interp] Positive ZP-Hpklbou-V anita Chavarria Work Phone: Cult, Urineon 11-04-2022 Bacteria identified Cx Nom (U) GQ-Randvnq-G anita Chavarria Work Phone: Discharge [id number] 023 Discharge Profile2 Discharge Orders: Code Status: Code Status at Discharge: Full Code DNR Order Additional Instructions (peds only): Additional Orders: Additional Instructions 7 DAYS BEFORE SURGERY, ON ___11/07/22 , STOP these medications: Ocuvite oral tablet: 1 tab(s) orally once a day calcium citrate: 600 milligram(s) orally once a day Multiple Vitamins oral tablet: 1 tab(s) orally once a day meloxicam 15 mg oral tablet: 1 tab(s) orally once a day Aleve 220 mg oral capsule: 1 cap(s) orally every 12 hours, As Needed aspirin 81 mg oral tablet: 1 tab(s) orally once a day THE NIGHT BEFORE AND MORNING OF SURGERY HOLD THESE MEDS: lisinopril 20 mg oral tablet: 1 tab(s) orally once a day DAY OF SURGERY, TAKE THESE MEDICATIONS: simvastatin 40 mg oral tablet: 1 tab(s) orally once a day gabapentin 300 mg oral capsule: 1 cap(s) orally 3 times a day omeprazole 40 mg oral delayed release capsule: 1 cap(s) orally 2 times a day hydroCHLOROthiazide 25 mg oral tablet: 1 tab(s) orally once a day DAY OF SURGERY, DO NOT TAKE THESE MEDICATIONS: Stool Softener with Laxative: 1 tab(s) orally 2 times a day Vitamin D3 50 mcg (2000 intl units) oral tablet: 1 tab(s) orally once a day Please swish, gargle and spit Peridex mouthwash the evening prior to surgery and the morning of surgery. CONTACT SURGEON'S OFFICE IF YOU DEVELOP: * Fever = 100.4 F * New respiratory symptoms (e.g. cough, shortness of breath, respiratory distress, sore throat) * Recent loss of taste or smell *Flu like symptoms such as headache, fatigue or gastrointestinal symptoms * You develop any open sores, shingles, burning or painful urination AND/OR: * You no longer wish to have the surgery. * Any other personal circumstances change that may lead to the need to cancel or defer this surgery. *You were admitted to any hospital within one week of your planned procedure. SMOKING: *Quitting smoking can make a huge difference to your health and recovery from surgery. *If you need help with quitting, call 2-520-SHCI-NOW. THE DAY BEFORE SURGERY: *Do not eat any food after midnight the night before surgery. *You are permitted to drink clear liquids (i.e. water, black coffee, tea, clear broth, apple juice) up to 2 hours before your surgery. DIABETICS: Please check fasting blood sugar upon waking up. If fasting sugar is <80 mg/dl, please drink 100ml/3oz of apple juice no later than 2 hours prior to surgery. SURGICAL TIME *You will be contacted between 2 p.m. and 6 p.m. the day before your surgery with your arrival time. *If you haven't received a call by 6pm, call [phone]. *Scheduled surgery times may change and you will be notified if this occurs-check your personal voicemail for any updates. ON THE MORNING OF SURGERY: *Wear comfortable, loose fitting clothing. *Do not use moisturizers, creams, lotions or perfume. *All jewelry and valuables should be left at home. *Prosthetic devices such as contact lenses, hearing aids, dentures, eyelash extensions, hairpins and body piercing must be removed before surgery. BRING WITH YOU: *Photo ID and insurance card *Current list of medicines and allergies *Pacemaker/Defibrillator/H eart stent cards *CPAP machine and mask *Slings/splints/crutches *Copy of your complete Advanced Directive/DHPOA-if applicable *Neurostimulator implant remote PARKING AND ARRIVAL: *Check in at the Main Entrance desk and let them know you are here for surgery. *You will be directed to the 2nd floor surgical waiting area. AFTER OUTPATIENT SURGERY: *A responsible adult MUST accompany you at the time of discharge and stay with you for 24 hours after your surgery. *You may NOT drive yourself home after surgery. *You may use a taxi or ride sharing service ([employer], [employer]) to return home ONLY if you are accompanied by a friend or family member. *Instructions for resuming your medications will be provided by your surgeon. Electronic Signatures: Nahomy Garcia (PAC) (Signed 04-Nov-2022 07:52) Authored: Discharge Orders Cassandra Huerta (RN) (Signed 04-Nov-2022 07:49) Authored: Discharge Orders, Gold Form - Engineering Mgr Summary Last Updated: 04-Nov-2022 07:52 by Nahomy Garcia (PAC) Normal [facility] [place][note 2] Electrocardiogram 12 Leadon 11-04-2022 Electrocardiogram 12 Lead Ventricular Rate 57 Atrial Rate 57 P-R Interval 200 QRS Duration 96 Q-T Interval 442 QTC Calculation(Bazett) 430 P Houston 63 R Houston 71 T Houston 63 QRS Count 10 Q Onset 219 P Onset 119 P Offset 178 T Offset 440 QTC Fredericia 434 Diagnosis Class Borderline Abnormal Diagnosis Sinus bradycardia Otherwise normal ECG No previous ECGs available Confirmed by Nate Alba ([id number]) on 11/05/2022 8:53:25 AM Normal [facility] - Blood bankon ABO group Nom (Bld) O MG-Ur ology-A 3600 Work Phone: Blood group antibody screen Ql Negative RE-Nwhbnat-Z 3600 Work Phone: Rh immune globulin screen (Bld) [Interp] Positive AJ-Zzsvmwd-E 3600 Work Phone: MRSA Screenon 11-04-2022 Staphylococcus sp identified Org specific cx Nom (Unsp spec) DY-Lqpxkdq-C edar [place] Work Phone: No Panel Informationon 11-04 [email or web address] ?RetrieveTestByDateTime?Pa kutvxGS=[id number]&Date=&Time=06%3a52%3a01% 3a00&TestType=ECG&Site=1&O utputType=PDF&Ext=PDF GL-Spnobsz-C edar [place] Work Phone: Sinus bradycardia MG-Urol ogy-C edar [place] Work Phone: [phone] Borderline Abnormal MG-Ur ology-C edar [place] Work Phone: [phone] PU-Qewpgvf-M edar [place] Work Phone: [phone] BX-Iaekgpw-G edar [place] Work Phone: [phone] MK-Ndmnfce-B edar [place] Work Phone: [phone] MQ-Tyhulie-C edar [place] Work Phone: [phone] JN-Brluiko-S edar [place] Work Phone: [phone] DC-Oslcvga-Q edar [place] Work Phone: [phone] WO-Dbsrgpd-D edar [place] Work Phone: [phone] CS-Lyfcdtb-I edar [place] Work Phone: [phone] TI-Ctyaimz-M edar [place] Work Phone: [phone] NJ-Khdejee-K edar [place] Work Phone: [phone] MJ-Acpxabo-P edar [place] Work Phone: [phone] QK-Duhdzib-C edar [place] Work Phone: [phone] BS-Ifxdile-V edar [place] Work Phone: STAPH/MRSA SCREENon 11-05-19 23 STAPH/MRSA SCREEN PATIENT: ALINA AGUILA LOCATION: [facility] ALINA#: [id number] : 53 AGE: SEX: M ORDERED BY: JUANA SCALES SOURCE: ANTERIOR NARES COLLECTED: 11/04/22 09:11 ANTIBIOTICS AT ITZEL.: RECEIVED : 11/04/22 17:25 SITE: Nasal R E S U L T S STAPH/MRSA SCREEN FINAL 11/06/22 10:15 NO Staphylococcus aureus ISOLATED. Normal [facility] [place][note 2] Comment on above: Performed By: #### S TAP #### [facility] [address] [place] [id number] TYPE + SCREENon 11-04-2022 ABO TYPE O Normal [facility] [place][note 2] Comment on above: Performed By: #### T +S #### [facility] [address] [place] [id number] RH TYPE Positive Normal [facility] [place][note 2] Comment on above: Performed By: #### T +S #### [facility] [address] [place] [address] URINE CULTURE,BACTERIALon URINE CULTURE,BACTERIAL PATIENT: LUIS ANGEL AGUILA LOCATION: [facility] ALINA#: [id number] : 53 AGE: SEX: M ORDERED BY: JUANA SCALES SOURCE: URINE COLLECTED: 11/04/22 09:19 ANTIBIOTICS AT ITZEL.: RECEIVED : 11/04/22 17:16 SITE: R E S U L T S URINE CULTURE,BACTERIAL FINAL 11/05/22 09:43 NO SIGNIFICANT GROWTH. Normal [facility] [place][note 2] Comment on above: Performed By: #### U RINC #### [facility] [address] [place] [address] Office Visit (Urology)on Follow-up visit Diagnoses/Problems Assessed Prostate cancer (185) (C61) Erectile dysfunction (607.84) (N52.9) Orders Erectile dysfunction Start: Sulfamethoxazole-Trimethop rim 800-160 MG Oral Tablet; take 1 tablet by mouth every 12 hours until finished; start 3 days prior to surgery Rx By: Svitlana Chino; Dispense: 7 Days ; #:14 Tablet; Refill: 0;For: Erectile dysfunction; UNRULY = N; Sent To: [facility] #[id number] Patient Discussion/Summary 67 year old patient with history of prostate cancer s/p prostatectomy and ED now pending IPP with Dr. Scales next month. He has no complaints. We reviewed all pertinent laboratory work and imaging as it pertains to patient's upcoming surgery. We discussed the risks, benefits and alternatives to patient's upcoming surgery. We discussed the post operative course including incision care, drain care, and catheter care. We had an opportunity to review IPP including pump, reservoir and cylinders. We reviewed use and indication of preoperative antibiotic, of which he verbalized understanding. All questions were addressed and answered appropriately. Patient feels comfortable following this teaching visit. Chief Complaint IPP PreOp Adult Risk ScreeningThere are no spiritual/cultural practices/values/needs that are important to know Initial Fall Risk Screening: LUIS ANGEL has not fallen in the last 6 months. His fall did not result in injury. LUIS ANGEL does not have a fear of falling. He does not need assistance with sitting, standing or walking. Does not need assistance walking in his home. He does not need assistance in an unfamiliar setting. The patient is not using an assistive device. Pain Scale: On a scale of 0 to 10, the patient rates the pain at 0. Tobacco Screening: LUIS ANGEL does not use tobacco. Has not used tobacco in the past 6 months. Has not tried to quit or thought about quitting tobacco. Domestic Violence Screen: Does not feel threatened or abused physically, emotionally or sexually. Do you feel UNSAFE? The patient feels safe in the home. Depression/Suicide Screening: During the past 2 weeks, the patient has not felt down, depressed or hopeless. During the past 2 weeks, the patient has not felt little interest or pleasure in doing things. He does not have a risk of suicide. He has not had thoughts of harming others. History of Present Illness 67 year old patient with history of prostate cancer s/p prostatectomy and ED now pending IPP with Dr. Scales next month. He has no complaints. Review of Systems Constitutional: no fever, no chills and not feeling poorly. Eyes: no eyesight problems. ENT: no hearing loss, no nosebleeds and no sore throat. Cardiovascular: no chest pain, no palpitations and no extremity edema. Respiratory: no shortness of breath, no wheezing, no cough and no shortness of breath during exertion. Gastrointestinal: no abdominal pain, no constipation, no heartburn, no diarrhea, no vomiting and no blood in stools. Genitourinary: no dysuria, no incontinence, normal micturition and no testicular pain. Musculoskeletal: no arthralgias and no gait abnormality. Integumentary: no skin lesions, no skin wound and no change in a mole. Neurological: no confusion, no dizziness, no fainting and no difficulty walking. Psychiatric: not suicidal, no anxiety and no depression. All other systems have been reviewed and are negative for complaint. Active Problems Problems Acute pain of right hip (719.45) (M25.551) Erectile dysfunction (607.84) (N52.9) Lumbar radiculopathy (724.4) (M54.16) Neck pain (723.1) (M54.2) Prostate cancer (185) (C61) Smoking addiction (305.1) (F17.200) Urinary incontinence (788.30) (R32) Past Medical History Problems History of radiation therapy (V15.3) (Z92.3) Social History Problems Smoking addiction (305.1) (F17.200) Allergies Medication morphine Recorded By: Rhonda Hartmann; 10/01/2022 4:48:24 PM predniSONE Recorded By: Rhonda Hartmann; 10/01/2022 4:48:24 PM Current Meds Medication NameInstruction No Reported Medications Vitals Vital Signs Recorded: [id number] 08:18AM Apqejqaccyt59.5 F Height5 ft 10.5 in Wbvzfz037 lb BMI Kbwrtxjbzr00.76 kg/m2 BSA Calculated1.98 Physical Exam General: Well developed, well nourished, alert and cooperative, appears in no acute distress Eyes: Non-injected conjunctiva, sclera clear, no proptosis Cardiac: Extremities are warm and well perfused. No edema, cyanosis or pallor. Lungs: Breathing is easy, non-labored. Speaking in clear and complete sentences. Normal diaphragmatic movement. MSK: Ambulatory with steady gait, unassisted Neuro: alert and oriented to person, place and time Psych: Demonstrates good judgement and reason, without hallucinations, abnormal affect or abnormal behaviors. Skin: no obvious lesions, no rashes. Signatures Electronically signed by : MARGIE Crane; Oct 30 2022 8:27AM EST (Author) Normal [facility] Note - Heme Onc-New altaf 10-01-2022 Clinic Note - Heme Onc-New Visit Patient Visit Information: Visit Type: New Visit, Follow Up Visit Cancer History: Treatment Synopsis: Treatment Synopsis: 67 yo man visiting from [place] (Dr. Luis Escobedo) here for prostate cancer: H/o htn, oa, mild COPD. 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, no distant mets or osseous mets 05/29 back to OR for vesicoureteral anastomosis for leak Treatment: 06/26 Lupron 22.5 mg x 2 - stopped d/t patient preference along with apalutamide - stopped d/t constipation and brain fog 11/07/21 - 12/07/21 EBRT whole pelvis and prostate bed boost - aborted early during third week d/t bowel toxicity (severe diarrhea, c diff neg, nausea and poor by mouth intake) (patients decision) Treatment d/c after 44 Barbosa instead of 70 Gy Prostate bed and nodes - 1400 cGy 7 Prost bed boost 1000 cGy 5 Whole Pelvis 4600 cGy 23 History of Present Illness: ID Statement: LUIS ANGEL AGUILA is a 67 year old Male Interval History: Pt last seen 04/12/22 with slowly rising PSA 0.12 and testosterone 809 04/05/22 MR pelvis - no explanation for scrotal/perineal pain, small local recurrence along vesicourethral anastamosis - 6 mm on L On gabapentin 300 mg by mouth twice a day for pain, not helping could not tolerate zytiga/pred - insomnia and anxiety - stopped after 2 days ED Mild fatigue 06/27 resumed lupron - c/o sweats/hot flashes, insomnia Allergies and Intolerances: Allergies: morphine: Drug, Itching, Hives/Urticaria, Active predniSONE: Drug, Other, Active Outpatient Medication Profile: * Patient Currently Takes Medications as of 01-Oct-2022 12:50 documented in Structured Notes simvastatin 40 mg oral tablet: Last Dose Taken: , 1 tab(s) orally once a day lisinopril 20 mg oral tablet: Last Dose Taken: , 1 tab(s) orally once a day gabapentin 300 mg oral capsule: Last Dose Taken: , 1 cap(s) orally 3 times a day omeprazole 40 mg oral delayed release capsule: Last Dose Taken: , 1 cap(s) orally 2 times a day meloxicam 15 mg oral tablet: Last Dose Taken: , 1 tab(s) orally 2 times a day hydroCHLOROthiazide 25 mg oral tablet: Last Dose Taken: , 1 tab(s) orally once a day aspirin 81 mg oral tablet: Last Dose Taken: , 1 tab(s) orally once a day Stool Softener with Laxative: Last Dose Taken: , 1 tab(s) orally 2 times a day Vitamin D3 50 mcg (2000 intl units) oral tablet: Last Dose Taken: , 1 tab(s) orally once a day Ocuvite oral tablet: Last Dose Taken: , 1 tab(s) orally once a day calcium citrate: Last Dose Taken: , 600 milligram(s) orally once a day Multiple Vitamins oral tablet: Last Dose Taken: , 1 tab(s) orally once a day Family History: No Family History items are recorded in the problem list. Social History: Social Substance History: Smoking Statuscurrent every day smoker (1) Vitals and Measurements: Vitals: Temp: 35.4 HR: 64 RR: 16 BP: 147/84 SPO2%: 100 Measurements: HT(cm): 176.9 WT(kg): 79.5 BSA: 1.97 BMI: 25.4 Physical Exam: Constitutional: Well developed, awake/alert/oriented x3, no distress, alert and cooperative Eyes: PERRL, EOMI, clear sclera ENMT: mucous membranes moist, no apparent injury, no lesions seen Head/Neck: Neck supple, no apparent injury, thyroid without mass or tenderness, No JVD, trachea midline, no bruits Respiratory/Thorax: Patent airways, CTAB, normal breath sounds with good chest expansion, thorax symmetric Cardiovascular: Regular, rate and rhythm, no murmurs, 2+ equal pulses of the extremities, normal S 1and S 2 Gastrointestinal: Nondistended, soft, non-tender, no rebound tenderness or guarding, no masses palpable, no organomegaly, +BS, no bruits Genitourinary: No Discharge, vesicles or other abnormalities Musculoskeletal: ROM intact, no joint swelling, normal strength Extremities: normal extremities, no cyanosis edema, contusions or wounds, no clubbing Neurological: alert and oriented x3, intact senses, motor, response and reflexes, normal strength Breast: No masses, tenderness, no discharge or discoloration Lymphatic: No significant lymphadenopathy Psychological: Appropriate mood and behavior Skin: Warm and dry, no lesions, no rashes Lab Results: Results I have reviewed these laboratory results: Prostate Specific Antigen 20-Sep-2022 08:47:00 ResultValue Prostate Specific Antigen <0.10 Testosterone, Level 20-Sep-2022 08:47:00 ResultValue Testosterone, Level 92 L Radiology Result: Results 09/06/22 MR T Spine: IMPRESSION: 1. Moderate multilevel lumbar spondylosis as detailed above, worst at L4-5 and L5 (more content not included)... Normal [facility] Clinic Note - Intakeon 10-01 Clinic Note - Intake Patient Visit Infor lloyd: Source of Informationpatient Accompanied byspouse Admission Information: Admission Since Last VisitNo Vital Signs: Temp (degrees C)35.4 degrees C Temperatureskin Heart Rate (beats/min)64 beats per minute Respiration (breaths/min)16 breath per minute BP Systolic (mm Hg)Image has been removed. 147 mmHg BP Diastolic (mm Hg)84 mmHg BP Mean (mm Hg)105 mmHg Height in cm176.9 centimeter(s) Weight in kg79.5 kilogram(s) Weightstanding BMI (kg/m2)25.4 kg/M2 BSA (m2)1.97 M2 Nursing Verification [id number] Nursing Verification Height in cm176.9 centimeter(s) Nursing Verification Commentht verified with nurse SpO2 (%)100 % SpO2 Patient Onroom air Pain Screening: Patient States Painno (0) Allergies: morphine: Drug, Itching, Hives/Urticaria, Active predniSONE: Drug, Other, Active Outpatient Medication Profile: * Patient Currently Takes Medications as of 01-Oct-2022 12:50 documented in Structured Notes simvastatin 40 mg oral tablet: Last Dose Taken: , 1 tab(s) orally once a day lisinopril 20 mg oral tablet: Last Dose Taken: , 1 tab(s) orally once a day gabapentin 300 mg oral capsule: Last Dose Taken: , 1 cap(s) orally 3 times a day omeprazole 40 mg oral delayed release capsule: Last Dose Taken: , 1 cap(s) orally 2 times a day meloxicam 15 mg oral tablet: Last Dose Taken: , 1 tab(s) orally 2 times a day hydroCHLOROthiazide 25 mg oral tablet: Last Dose Taken: , 1 tab(s) orally once a day aspirin 81 mg oral tablet: Last Dose Taken: , 1 tab(s) orally once a day Stool Softener with Laxative: Last Dose Taken: , 1 tab(s) orally 2 times a day Vitamin D3 50 mcg (2000 intl units) oral tablet: Last Dose Taken: , 1 tab(s) orally once a day Ocuvite oral tablet: Last Dose Taken: , 1 tab(s) orally once a day calcium citrate: Last Dose Taken: , 600 milligram(s) orally once a day Multiple Vitamins oral tablet: Last Dose Taken: , 1 tab(s) orally once a day Notification: NotificationsAnnual Screens Due Dates ____ Advanced Directives: Jun 12, 2023 Family Violence: Sep 20, 2023 Depression (Due every 6 months for ONC only; all others use Annual date): Mar 19, 2023 Substance Use - Alcohol: Jun 12, 2023 Substance Use - Drugs: Jun 12, 2023 Nutrition: Sep 20, 2023 Learning: Sep 20, 2023 Travel History: COVID-19 Screening Completedno exposure or symptoms Travel or ExposureNO travel to International locations in the past 30 days Falls: Have you fallen in the last 6 monthsno Do you have a fear of fallingno Do you feel you need assistanceno Is the patient using an assistive deviceno Not a falls riskimplement environmental risk factors interventions Electronic Signatures: Tiffany Vásquez (RN) (Signed 01-Oct-2022 15:16) Authored: Vital Signs Sue Hayden (PCNA) (Signed 01-Oct-2022 12:53) Authored: Patient Visit Information, Vital Signs, Allergies, Outpatient Medication Profile, Notification, Travel History, Falls Last Updated: 01-Oct-2022 15:16 by Tiffany Vásquez (RN) Normal [facility] Cult, Urineon 10-01-2022 Bacteria identified Cx Nom (U) GE-Btzrosc-B anita Chavarria Work Phone: IO Ultrasound, measurement p ost-void resid urine and/or bl cap; no imagon 10-01-2022 IO Ultrasound, measurement post-void resid urine and/or bl cap; no imag 7 ml/min DG-[id number]-Z anita Aura Work Phone: Office Visit (Urology)on Follow-up visit Diagnoses/Problems Assessed Urinary incontinence (788.30) (R32) Smoking addiction (305.1) (F17.200) Prostate cancer (185) (C61) Erectile dysfunction (607.84) (N52.9) Orders Erectile dysfunction Cult, Urine; Status:Active; Requested for:01Oct2022; Perform:Lab Services - Lab To Draw (Non-Blood Test); Due:30Dec2022;Ordered; For:Erectile dysfunction; Ordered By:Juana Scales; Urinary incontinence IO Ultrasound, measurement post-void resid urine and/or bl cap; no imag; Status:Complete; Done: 01Oct2022 10:50AM Performed:In Office; Due:30Dec2022;Ordered; For:Urinary incontinence; Ordered By:Juana Scales; Patient Discussion/Summary #Erectile Dysfunction - secondary to arterial insufficiency and corporo veno-occlusive dysfunction refractory to medical management with PDE's (Viagra, Cialis) and intracavernosal therapy. Plan: Penile prosthesis, the risks and benefits were explained in detail and educational material was provided. We had a long discussion regarding penile prosthesis, including risks, benefits, and alternatives. We discussed risks including but not limited to pain, bleeding, infection, damage to adjacent structures, need for further procedures, malfunction, erosion, extrusion, complications of anesthesia etc. We discussed the postoperative course and expectations, and specifically that after getting an implant, other methods such as injections etc are no longer effective. We also discussed the effect of the implant on length and that it will likely be shorter than previous given age and duration of ED. Further, if he gets an infection and the implant has to be removed, there is potential for him to never have erections again. All questions were answered and reading materials were given. The patient was given models of both the inflatable and malleable implants, and his ability to squeeze the pump was also assessed -Will proceed with inflatable penile prosthesis. -Penoscrotal approach. -Abx: Vancomycin / Gentamicin -[place] [facility]. -Urine Cx/PVR today. -reviewed oncology notes, not doing clinical trial - continuing intermittent ADT for prsotate cancer #Prostate Cancer -S/p prostatectomy. #Pain with urination -S/P cystoscopy, normal. #Smoking Addiction -Smoking cessation encouraged. fu with ipp. Will reach out to his oncologist. By signing my name below, I, wyatt Cerda, attest that this documentation has been prepared under the direction and in the presence of Dr. Juana Scales. All medical record entries made by the dianaibe were at my direction and personally dictated by me. I have reviewed the chart and agree that the record accurately reflects my personal performance of the history, physical exam, discussion, and plan. Chief Complaint Doppler 20 units of mix #5. History of Present Hrrjksr89 year old patient who presents with an elevated PSA. Hx of prostate cancer. Last visit 09/11/22: -will fu for doppler, already scheduled. -S/p prostatectomy. -Cystoscopy normal, completed today without complication. -Smoking cessation encouraged. Today's visit: #Pain with urination -Presents today for cystoscopy. #Elevated PSA Urinary Difficulties: yes Unexpected weight loss: yes Bone pain: yes-lower back/hips Family history of prostate cancer: yes-self Previous biopsy:yes, prostatectomy Smoker? yes with agent orange exposure: No #Erectile Dysfunction -Patient presents today for doppler 20 units of mix #5. -Duration: 2 years -Rigidity of erections:0 /10 -Able to maintain until ejaculation:no -Morning Erections: absent -s/p prostatectomy: yes -Hernia Repair? yes as a child -on nitrates/NTG?: no -smoker? yes from 2 packs to 1/2 pack. -partner- -Tried PDE5is?: no ---Viagra/sildenafil - response: No response after prostatectomy. ---Cialis/tadalafil- response: No response after prostatectomy. -Tried penile injections: no - Libido/Desire: strong - been on Testosterone /anabolic steroids? yes -Pain or curvature in penis when erect: none -Premature or delayed ejaculation: none -Pain on straining during urination. Urinalysis 07/08/22: Within normal ranges. Urine Culture 09/03/22: Negative. Active Problems Problems Acute pain of right hip (719.45) (M25.551) Lumbar radiculopathy (724.4) (M54.16) Neck pain (723.1) (M54.2) Prostate cancer (185) (C61) Smoking addiction (305.1) (F17.200) Urinary incontinence (788.30) (R32) Past Medical History Problems History of radiation therapy (V15.3) (Z92.3) Social History Problems Smoking addiction (305.1) (F17.200) Vitals Vital Signs Recorded: 01Oct2022 10:02AM Nevjnbqvzui98.3 F Heart Rate57 Eerubkom598 Mijgfehxo32 Height5 ft 11 in Czzexu716 lb 2 oz BMI Fosjbhseny26.56 kg/m2 BSA Calculated2 Tobacco Useb) No Falls Screening (Age 18+)a) No falls within the last year Physical Exam GENITOURINARY / GENITALIA: Testicles descended (more content not included)... Normal [facility] Tobacco Screening.on 023 Fall risk assessment a) No falls within the last year II-Grcplya-H [place] Work Phone: Tobacco use status CPHS b) No ZH-Koyzbbd-J [place] Work Phone: URINE CULTURE,BACTERIALon URINE CULTURE,BACTERIAL PATIENT: LUIS ANGEL AGUILA LOCATION: [address]#: [id number] : 53 AGE: SEX: M ORDERED BY: JUANA SCALES SOURCE: URINE COLLECTED: 10/01/22 11:02 ANTIBIOTICS AT TIZEL.: RECEIVED : 10/01/22 18:26 SITE: Unspecified R E S U L T S URINE CULTURE,BACTERIAL FINAL 10/02/22 10:44 NO GROWTH Normal [facility] Comment on above: Performed By: #### U [facility] ####[id number] [place] [address] AMB - Narrative Note Nursing -F/U and Injectionon 09-20-2022 AMB - Narrative Note Nursing-F/U and Injection Topic and Description: Topic: F/U & Injection Description: Patient here with his for f/u and injection with Dr. Cohn; seen for prostate cancer. Receives Lupron injection every 3 months; per patient he does not want to receive this today as he is having bad night sweats and not sleeping; made aware. Labs drawn this morning CBCd, CMP, PSA, Testosterone. Referral to Dr. Ariza for Provenge. No barriers to education noted, pt agreed to plan and verbalized understanding using teach back method. Bridgette Mcguire RN OCN Electronic Signatures: Bridgette Mcguire (BRYSON) (Signed 20-Sep-2022 10:24) Authored: Topic and Description Last Updated: 20-Sep-2022 10:24 by Bridgette Mcguire) Normal [facility] CBC AND DIFFERENTIALon 09-20 % AUTOMATED IMMATURE GRAN 0.5 % Normal 0.0 - 0.9 [facility] Comment on above: Result Comment: Ania ture Granulocyte Count (IG) includes promyelocytes, myelocytes and metamyelocytes but does not include bands. Percent differential counts (%) should be interpreted in the context of the absolute cell counts (cells/L). Performed By: #### C BCDF #### [facility] [address] [place] [address] Basophils (Bld) [#/Vol] 0.06 10*3/uL Normal 0.00 - 0.10 [facility] Comment on above: Performed By: #### C BCDF #### [facility] [address] [place] [address] Basophils/100 WBC (Bld) 1.0 % Normal 0.0 - 2.0 [facility] Comment on above: Performed By: #### C BCDF #### [facility] [address] [place] [address] Eosinophils (Bld) [#/Vol] 0.36 10*3/uL Normal 0.00 - 0.70 [facility] Comment on above: Performed By: #### C BCDF #### [facility] [address] [place] [address] Eosinophils/100 WBC (Bld) 5.7 % Normal 0.0 - 6.0 [facility] Comment on above: Performed By: #### C BCDF #### [facility] [address] [place] [address] [place] [address] Erythrocyte distribution width (RBC) [Ratio] 13.2 % Normal 11.5 - 14.5 [facility] Comment on above: Performed By: #### C BCDF #### [facility] [address] [place] [address] Hematocrit (Bld) [Volume fraction] 44.0 % Normal 41.0 - 52.0 [facility] Comment on above: Performed By: #### C BCDF #### [facility] [address] [place] [address] Hemoglobin (Bld) [Mass/Vol] 14.3 g/dL Normal 13.5 - 17.5 [facility] Comment on above: Performed By: #### C BCDF #### [facility] [address] [place] [address] Lymphocytes (Bld) [#/Vol] 0.93 10*3/uL Low 1.20 - 4.80 [facility] Comment on above: Performed By: #### C BCDF #### [facility] [address] [place] [address] Lymphocytes/100 WBC (Bld) 14.8 % Normal 13.0 - 44.0 [facility] Comment on above: Performed By: #### C BCDF #### [facility] [address] [place] [address] MCHC (RBC) [Mass/Vol] 32.5 g/dL Normal 32.0 - 36.0 [facility] Comment on above: Performed By: #### C BCDF #### [facility] [address] [place] [address] MCV (RBC) [Entitic vol] 96 fL Normal 80 - 100 [facility] Comment on above: Performed By: #### C BCDF #### [facility] [address] [place] [address] [place] [address] Monocytes (Bld) [#/Vol] 0.61 10*3/uL Normal 0.10 - 1.00 [facility] Comment on above: Performed By: #### C BCDF #### [facility] [address] [place] [place] [address] Monocytes/100 WBC (Bld) 9.7 % Normal 2.0 - 10.0 [facility] Comment on above: Performed By: #### C BCDF #### [facility] [address] [place] [address] [place] [address] Neutrophils (Bld) [#/Vol] 4.29 10*3/uL Normal 1.20 - 7.70 [facility] Comment on above: Performed By: #### C BCDF #### [facility] [address] [place] [address] [place] [address] Neutrophils/100 WBC (Bld) 68.3 % Normal 40.0 - 80.0 [facility] Comment on above: Performed By: #### C BCDF #### [facility] [address] [place] [address] [place] [address] Platelets (Bld) [#/Vol] 292 10*3/uL Normal 150 - 450 [facility] Comment on above: Performed By: #### C BCDF #### [facility] [address] [address] [place] [address] RBC 4.59 x10E12/L Normal 4.50 - 5.90 [facility] Comment on above: Performed By: #### C BCDF #### [facility] [address] [place] [address] [place] [address] WBC (Bld) [#/Vol] 6.3 10*3/uL Normal 4.4 - 11.3 [facility] Comment on above: Performed By: #### C BCDF #### [facility] [address] [place] [address] [place] [address] COMPREHENSIVE PANELon 2022 Albumin [Mass/Vol] 4.2 g/dL Normal 3.5 - 5.0 [facility] Comment on above: Performed By: #### U RINC #### [facility] [address] [place] [address] ALP [Catalytic activity/Vol] 93 U/L Normal 35 - 125 [facility] Comment on above: Performed By: #### U RINC #### [facility] [address] [place] [address] ALT [Catalytic activity/Vol] 9 U/L Normal 5 - 40 [facility] Comment on above: Result Comment: Lashon ents treated with Sulfasalazine may generate falsely decreased results for ALT. Performed By: #### U RINC #### [facility] [address] [place] [address] Anion gap [Moles/Vol] 11 mmol/L Normal 0 - 19 [facility] Comment on above: Performed By: #### U RINC #### [facility] [address] [place] [address] AST [Catalytic activity/Vol] 21 U/L Normal 5 - 40 [facility] Comment on above: Performed By: #### U RINC #### [facility] [address] [place] [address] Bilirubin [Mass/Vol] 0.6 mg/dL Normal 0.1 - 1.2 [facility] Comment on above: Performed By: #### U RINC #### [facility] [address] [place] [address] Calcium [Mass/Vol] 10.1 mg/dL Normal 8.5 - 10.4 [facility] Comment on above: Performed By: #### U RINC #### [facility] [address] [place] [address] Chloride [Moles/Vol] 99 mmol/L Normal 97 - 107 [facility] Comment on above: Performed By: #### U RINC #### [facility] [address] [place] [address] Creatinine [Mass/Vol] 0.83 mg/dL Normal 0.40 - 1.60 [facility] Comment on above: Performed By: #### U RINC #### [facility] [address] [place] [address] eGFR MALE >90 Normal >90 [facility] Comment on above: Result Comment: CALC ULATIONS OF ESTIMATED GFR ARE PERFORMED USING THE 2020 CKD-EPI STUDY REFIT EQUATION WITHOUT THE RACE VARIABLE FOR THE IDMS-TRACEABLE CREATININE METHODS. https://jasn.asnjournals.org/content//ASN.5949827 988 Performed By: #### U RINC #### [facility] [address] [place] [address] Glucose [Mass/Vol] 92 mg/dL Normal 65 - 99 [facility] Comment on above: Performed By: #### U RINC #### [facility] [address] [place] [address] HCO3 (Bld) [Moles/Vol] 29 mmol/L Normal 24 - 31 [facility] Comment on above: Performed By: #### U RINC #### [facility] [address] [place] [address] Potassium [Moles/Vol] 3.9 mmol/L Normal 3.4 - 5.1 [facility] Comment on above: Performed By: #### U RINC #### [facility] [address] [place] [address] Protein [Mass/Vol] 7.8 g/dL Normal 5.9 - 7.9 [facility] Comment on above: Performed By: #### U RINC #### [facility] [address] [place] [address] Sodium [Moles/Vol] 135 mmol/L Normal 133 - 145 [facility] Comment on above: Performed By: #### U RINC #### [facility] [address] [place] [address] Urea nitrogen [Mass/Vol] 15 mg/dL Normal 8 - 25 [facility] Comment on above: Performed By: #### U RINC #### [facility] [address] [place] [address] Clinic Note - Heme Onc-Follo w Up Visiton 09-20-2022 Clinic Note - Heme Onc-Follow Up Visit Patient Visit Information: Visit Type: Follow Up Visit Cancer History: Treatment Synopsis: Treatment Synopsis: 67 yo man visiting from [place] (Dr. Luis Escobedo) here for prostate cancer: H/o htn, oa, mild COPD. 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 12/[address] 01/25 biopsy with grade group 3 prostate adenocarcinoma Bone scan neg 04/20/21 Prostatectomy grade group 2, inv seminal vesicles bilat, extraprostatic extension, PNI/LVI, positive surgical margin, [address] pos - pT3bN1 (Gia 3+4) Post op PSA 18 PSMA pet - e/o mets within LN's in pelvis, no distant mets or osseous mets 05/29 back to OR for vesicoureteral anastomosis for leak Treatment: 06/26 Lupron 22.5 mg x 2 - stopped d/t patient preference along with apalutamide - stopped d/t constipation and brain fog 11/07/21 - 12/07/21 EBRT whole pelvis and prostate bed boost - aborted early during third week d/t bowel toxicity (severe diarrhea, c diff neg, nausea and poor by mouth intake) (patients decision) Treatment d/c after 44 [place]osa instead of 70 Gy Prostate bed and nodes - 1400 cGy 7 Prost bed boost 1000 cGy 5 Whole Pelvis 4600 cGy 23 History of Present Illness: ID Statement: LUIS ANGEL AGUILA is a 67 year old Male Interval History: Pt last seen 04/12/22 with slowly rising PSA 0.12 and testosterone 809 04/05/22 MR pelvis - no explanation for scrotal/perineal pain, small local recurrence along vesicourethral anastamosis - 6 mm on L On gabapentin 300 mg by mouth twice a day for pain, not helping could not tolerate zytiga/pred - insomnia and anxiety - stopped after 2 days ED Mild fatigue 06/27 resumed lupron - c/o sweats/hot flashes, insomnia Review of Systems: System ReviewAll Systems: Negative Allergies and Intolerances: Allergies: morphine: Drug, Itching, Hives/Urticaria, Active predniSONE: Drug, Other, Active Outpatient Medication Profile: * Patient Currently Takes Medications as of 02-Aug-2022 15:04 documented in Structured Notes simvastatin 40 mg oral tablet: 1 tab(s) orally once a day lisinopril 20 mg oral tablet: 1 tab(s) orally once a day gabapentin 300 mg oral capsule: 1 cap(s) orally 3 times a day omeprazole 40 mg oral delayed release capsule: 1 cap(s) orally 2 times a day meloxicam 15 mg oral tablet: 1 tab(s) orally 2 times a day hydroCHLOROthiazide 25 mg oral tablet: 1 tab(s) orally once a day aspirin 81 mg oral tablet: 1 tab(s) orally once a day Stool Softener with Laxative: 1 tab(s) orally 2 times a day Vitamin D3 50 mcg (2000 intl units) oral tablet: 1 tab(s) orally once a day Ocuvite oral tablet: 1 tab(s) orally once a day calcium citrate: 600 milligram(s) orally once a day Multiple Vitamins oral tablet: 1 tab(s) orally once a day Social History: Social Substance History: Smoking Statuscurrent every day smoker (1) Physical Exam: Constitutional: Well developed, awake/alert/oriented x3, no distress, alert and cooperative Eyes: PERRL, EOMI, clear sclera ENMT: mucous membranes moist, no apparent injury, no lesions seen Head/Neck: Neck supple, no apparent injury, thyroid without mass or tenderness, No JVD, trachea midline, no bruits Respiratory/Thorax: Patent airways, CTAB, normal breath sounds with good chest expansion, thorax symmetric Cardiovascular: Regular, rate and rhythm, no murmurs, 2+ equal pulses of the extremities, normal S 1and S 2 Gastrointestinal: Nondistended, soft, non-tender, no rebound tenderness or guarding, no masses palpable, no organomegaly, +BS, no bruits Genitourinary: No Discharge, vesicles or other abnormalities Musculoskeletal: ROM intact, no joint swelling, normal strength Extremities: normal extremities, no cyanosis edema, contusions or wounds, no clubbing Neurological: alert and oriented x3, intact senses, motor, response and reflexes, normal strength Breast: No masses, tenderness, no discharge or discoloration Lymphatic: No significant lymphadenopathy Psychological: Appropriate mood and behavior Skin: Warm and dry, no lesions, no rashes Lab Results: Results CBC date/time WBC HGB HCT PLT Neut 12-Jun-2022 11:44 6.1 13.9 42.6 263 3.98 BMP date/time NA K CL CO2 BUN CREAT 12-Jun-2022 11:44 138 4.3 101 N/A 16 0.84 06/27 PSA < 0.1 Radiology Result: Results 09/06/22 MR T Spine: IMPRESSION: 1. Moderate multilevel lumbar spondylosis as detailed above, worst at L4-5 and L5-S1 where there is mild central spinal canal and severe bilateral neural foraminal narrowing. 2. New abnormal T1 hypointense, STIR hyperintense signal within the bilateral sacral ala, incompletely characterized however suggesting sacral insufficiency fractures. Results 06/17/22 PSMA PET: negative Impression: classify patients as: Normal (T-score at or above -1.0), Osteopenia (T-score between -1.0 and -2.5), or Osteoporosis (T-score at or b (more content not included)... Normal [facility] Clinic Note - Intakeon 09-20 Clinic Note - Intake Patient Visit Infor mation: Visit TypeFollow Up Visit Source of Informationpatient Accompanied byspouse Admission Information: Admission Since Last VisitNo Admission [id number] Vital Signs: Temp (degrees C)36.1 degrees C Temperaturetemporal Heart Rate (beats/min)66 beats per minute Respiration (breaths/min)16 breath per minute BP Systolic (mm Hg)Image has been removed. 144 mmHg BP Diastolic (mm Hg)83 mmHg BP Mean (mm Hg)103 mmHg Height in cm176.9 centimeter(s) Weight in kg78.5 kilogram(s) Weightstanding BMI (kg/m2)25 kg/M2 BSA (m2)1.96 M2 SpO2 (%)97 % SpO2 Patient Onroom air Pain Screening: Patient States Painno (0) Allergies: morphine: Drug, Itching, Hives/Urticaria, Active predniSONE: Drug, Other, Active Outpatient Medication Profile: * Patient Currently Takes Medications as of 20-Sep-2022 08:56 documented in Structured Notes simvastatin 40 mg oral tablet: Last Dose Taken: , 1 tab(s) orally once a day lisinopril 20 mg oral tablet: Last Dose Taken: , 1 tab(s) orally once a day gabapentin 300 mg oral capsule: Last Dose Taken: , 1 cap(s) orally 3 times a day omeprazole 40 mg oral delayed release capsule: Last Dose Taken: , 1 cap(s) orally 2 times a day meloxicam 15 mg oral tablet: Last Dose Taken: , 1 tab(s) orally 2 times a day hydroCHLOROthiazide 25 mg oral tablet: Last Dose Taken: , 1 tab(s) orally once a day aspirin 81 mg oral tablet: Last Dose Taken: , 1 tab(s) orally once a day Stool Softener with Laxative: Last Dose Taken: , 1 tab(s) orally 2 times a day Vitamin D3 50 mcg (2000 intl units) oral tablet: Last Dose Taken: , 1 tab(s) orally once a day Ocuvite oral tablet: Last Dose Taken: , 1 tab(s) orally once a day calcium citrate: Last Dose Taken: , 600 milligram(s) orally once a day Multiple Vitamins oral tablet: Last Dose Taken: , 1 tab(s) orally once a day Notification: NotificationsAnnual Screens Due Dates ____ Advanced Directives: Jun 12, 2023 Family Violence: Aug 02, 2023 Depression (Due every 6 months for ONC only; all others use Annual date): Jan 29, 2023 Substance Use - Alcohol: Jun 12, 2023 Substance Use - Drugs: Jun 12, 2023 Nutrition: Aug 02, 2023 Learning: Aug 02, 2023 Travel History: COVID-19 Screening Completedno exposure or symptoms Travel or ExposureNO travel to International locations in the past 30 days Falls: Have you fallen in the last 6 monthsno Do you have a fear of fallingno Do you feel you need assistanceno Is the patient using an assistive deviceno Lowage 65 or older Spiritual/Procedural: Spiritual/cultural/religio us practices important for us to knowno Alcohol, prescription or recreational drugs taken this AM for non medical reasonsno Oncology Nutrition: I am now taking(1) normal food but less than normal amount During the past 2 weeks, weight has(0) not changed Intake past month, compared to normal intake(0) unchanged Problems keeping me from eating past 2 weeks (0) no problem eating In the past month, my activity/functioning rating is(1) not my normal self, but able to be up and about with fairly normal activities Score 6 or > notify clinician2 Violence: Are you or have you been threatened or abused physically,emotionally or sexually abused by anyoneno Do you feel UNSAFE going back to the place you are livingno Depression: Past 2 wks: [place] down, depressed or hopelessno Past 2 wks: [place] little interest/pleasure doing thingsno Any Thoughts of Harming Othersno In the Past Month: Have you wished you were or could go to sleep and not wake upno In the Past Month: Have you had any actual thoughts of killing yourselfno Lifetime: Have you ever done, started to do, or prepared to do anything to end your lifeno Nutrition/Learning: In the past month, was there any day when you or anyone in your family went hungry because you didn't have enough foodno Primary LanguageEnglish Do you, or others today, need extra help due to problems with hearing,speaking, seeing, moving around or learningno Other Campos Learnerno Electronic Signatures: Nela Monroe) (Signed 20-Sep-2022 08:58) Authored: Patient Visit Information, Vital Signs, Allergies, Outpatient Medication Profile, Notification, Travel History, Falls, Spiritual/Procedural, Oncology Nutrition, Violence, Depression, Nutrition/Learning Last Updated: 20-Sep-2022 08:58 by Nela Monroe (RIGOBERTO) Normal [facility] Complete Blood Count + Diffe torres 09-20-2022 Basophils/100 WBC (Bld) 1.0 % 0.0 - 2.0 QR-Clefkad-K [employer] Work Phone: Erythrocyte distribution width (RBC) [Ratio] 13.2 % See Below HQ-Ijyukhf-S [employer] Work Phone: [phone] Comment on above: Reference Range: 11. 5 - 14.5 Hematocrit (Bld) [Volume fraction] 44.0 % See Below FG-Fyesnlr-D edar [employer] Work Phone: Comment on above: Reference Range: 41. 0 - 52.0 Hemoglobin (Bld) [Mass/Vol] 14.3 g/dL See Below KP-Zldvwfy-T edar [place] Work Phone: Comment on above: Reference Range: 13. 5 - 17.5 Lymphocytes/100 WBC (Bld) 14.8 % See Below OD-Wqeofnd-U [employer] Work Phone: [phone] Comment on above: Reference Range: 13. 0 - 44.0 MCHC (RBC) [Mass/Vol] 32.5 g/dL See Below RX-Zvsfsjg-J ed[facility] [place] Work Phone: [phone] Comment on above: Reference Range: 32. 0 - 36.0 MCV (RBC) [Entitic vol] 96 fL 80 - 100 NC-Mykprpa-B edar [employer] Work Phone: [phone] Monocytes/100 WBC (Bld) 9.7 % 2.0 - 10.0 LD-Fvgiobg-A [employer] Work Phone: [phone] Neutrophils/100 WBC (Bld) 68.3 % See Below HU-Cjuimfo-S ed[facility] [place] Work Phone: [phone] Comment on above: Reference Range: 40. 0 - 80.0 Platelets (Bld) [#/Vol] 292 10*3/uL 150 - 450 XS-Wypxeof-U [employer] Work Phone: [phone] RBC (Bld) [#/Vol] 4.59 {x10E12/L} See Below MG -Urology-C [facility] [employer] Work Phone: [phone] Comment on above: Reference Range: 4.5 0 - 5.90 WBC (Bld) [#/Vol] 6.3 10*3/uL 4.4 - 11.3 MG-Uro logy-C anita [employer] Work Phone: [phone] Complete Blood Count + Differential 0.06 {x10E9/L} See Below ZI-Gukuhxz-E [employer] Work Phone: [phone] Comment on above: Reference Range: 0.0 0 - 0.10 Complete Blood Count + Differential 0.36 {x10E9/L} See Below FK-Fagagss-Y [employer] Work Phone: [phone] Comment on above: Reference Range: 0.0 0 - 0.70 Complete Blood Count + Differential 0.61 {x10E9/L} See Below FI-Tdcnrcq-L ed[facility] [place] Work Phone: [phone] Comment on above: Reference Range: 0.1 0 - 1.00 Complete Blood Count + Differential 0.93 {x10E9/L} below low threshold See Below VV-Rldsnxf-B [employer] Work Phone: Comment on above: Reference Range: 1.2 0 - 4.80 Complete Blood Count + Differential 4.29 {x10E9/L} See Below BV-Sijfrjq-U [employer] Work Phone: [phone] Comment on above: Reference Range: 1.2 0 - 7.70 Complete Blood Count + Differential 5.7 % 0.0 - 6.0 OM-Nizehhr-B [employer] Work Phone: Complete Blood Count + Differential 0.5 % 0.0 - 0.9 RI-Lthfrcy-U [employer] Work Phone: [phone] Comment on above: Immature Granulocyte Count (IG) includes promyelocytes, myelocytes and metamyelocytes but does not include bands. Percent differential counts (%) should be interpreted in the context of the absolute cell counts (cells/L). Laboratory - Chemistry and C hemistry - challengeon 09-20-2022 Albumin BCP dye [Mass/Vol] 4.2 g/dL 3.5 - 5.0 BN-Wvyeeew-I [employer] Work Phone: ALP [Catalytic activity/Vol] 93 U/L 35 - 125 AB-Bgzuamr-X [employer] Work Phone: [phone] ALT With P-5'-P [Catalytic activity/Vol] 9 U/L 5 - 40 LY-Cajcesk-A [employer] Work Phone: [phone] Comment on above: Patients treated wit h Sulfasalazine may generate falsely decreased results for ALT. Anion gap [Moles/Vol] 11 mmol/L 0 - 19 KO-Regngts-Z [employer] Work Phone: AST With P-5'-P [Catalytic activity/Vol] 21 U/L 5 - 40 LB-Rsowzfa-P [employer] Work Phone: Bilirubin [Mass/Vol] 0.6 mg/dL 0.1 - 1.2 MG-U rology-C ed[facility] [place] Work Phone: Calcium [Mass/Vol] 10.1 mg/dL 8.5 - 10.4 MG-Uro logy-C [employer] Work Phone: Chloride [Moles/Vol] 99 mmol/L 97 - 107 MG-U rology-C [employer] Work Phone: CO2 [Moles/Vol] 29 mmol/L 24 - 31 MG-Urolog y-C ed[facility] [place] Work Phone: Creatinine [Mass/Vol] 0.83 mg/dL See Below ZG-Ueabakj-R [employer] Work Phone: Comment on above: Reference Range: 0.4 0 - 1.60 Glucose [Mass/Vol] 92 mg/dL 65 - 99 MG-Uro logy-C [employer] Work Phone: Potassium [Moles/Vol] 3.9 mmol/L 3.4 - 5.1 IR-[place]-K edar [place] Work Phone: Protein [Mass/Vol] 7.8 g/dL 5.9 - 7.9 MG-Uro logy-C [employer] [employer] Work Phone: Sodium [Moles/Vol] 135 mmol/L 133 - 145 MG-Uro logy-C edar [place] Work Phone: [phone] Urea nitrogen [Mass/Vol] 15 mg/dL 8 - 25 PX-Epkofnc-P ed[facility] [place] Work Phone: No Panel Informationon 09-20 >90 >90 HH-Jtfuuuz-S ed[facility] [place] Work Phone: Comment on above: CALCULATIONS OF [place] MATED GFR ARE PERFORMED USING THE 2020 CKD-EPI STUDY REFIT EQUATION WITHOUT THE RACE VARIABLE FOR THE IDMS-TRACEABLE CREATININE METHODS.https://jasn.asnjournals.org/content//ASN .7435541488 PROSTATE SPECIFIC AGon 09-20 Prostate specific Ag [Mass/Vol] ng/mL Normal 0.00 - 4.00 [facility] Comment on above: Result Comment: The FDA requires that the method used for PSA assay be reported to the physician. Values obtained with different assay methods must not be used interchangeably. This test was performed at [facility] using the Siemens Atellica PSA method, which is a sandwich immunoassay using chemiluminescence for quantitation. The assay is approved for measurement of prostate-specific antigen (PSA) in serum and may be used in conjunction with a digital rectal examination in men 50 years and older as an aid in detection of prostate cancer. 7-Sqpah-tawaymbry inhibitors (e.g. Proscar, Finasteride, Avodart, Dutasteride and Rosita) for the treatment of BPH have been shown to lower PSA levels by an average of 50% after 6 months of treatment. Performed By: #### P SA #### [facility] [address] [place] [address] Phone Note - Heme Onc-appoin tment question - NPVon 09-20-2022 Phone Note - Heme Onc-appointment question - NPV Phone Call Information: Patient Demographics: Name: LUIS ANGEL AGUILA Date: 1955 Address: [address] [place], [place] [address] [address] Primary Phone Number: [phone] Reason for Call: Reason for Callappointment question, NPV Outpatient Medication Profile: * Patient Currently Takes Medications as of 20-Sep-2022 08:56 documented in Structured Notes simvastatin 40 mg oral tablet: 1 tab(s) orally once a day lisinopril 20 mg oral tablet: 1 tab(s) orally once a day gabapentin 300 mg oral capsule: 1 cap(s) orally 3 times a day omeprazole 40 mg oral delayed release capsule: 1 cap(s) orally 2 times a day meloxicam 15 mg oral tablet: 1 tab(s) orally 2 times a day hydroCHLOROthiazide 25 mg oral tablet: 1 tab(s) orally once a day aspirin 81 mg oral tablet: 1 tab(s) orally once a day Stool Softener with Laxative: 1 tab(s) orally 2 times a day Vitamin D3 50 mcg (2000 intl units) oral tablet: 1 tab(s) orally once a day Ocuvite oral tablet: 1 tab(s) orally once a day calcium citrate: 600 milligram(s) orally once a day Multiple Vitamins oral tablet: 1 tab(s) orally once a day Orders: PET CT Prostate PSMA, [place]; Outpatient Ambulatory Special Instructions: Please have prior to 06/21/22 Lupron injection per request of , 19-Jun-2022, Pending, Standard Allergies: morphine: Itching, Hives/Urticaria predniSONE: Other Lab Results: Results CBC date/time WBC HGB HCT PLT Neut 20-Sep-2022 08:47 6.3 14.3 44.0 292 4.29 BMP date/time NA K CL CO2 BUN CREAT 20-Sep-2022 08:47 135 3.9 99 N/A 15 0.83 Electronic Signatures: Trini Kumar (RN) (Signed 20-Sep-2022 12:23) Authored: Phone Call Information, Outpatient Medication Profile, Orders, Allergies, Results Last Updated: 20-Sep-2022 12:23 by Trini Kumar (RN) Normal [facility] Prostate Specific Antigenon 09-20-2022 Prostate specific Ag [Mass/Vol] ng/mL See Below VT-Qardmvu-F anita [place] Work Phone: Comment on above: Reference Range: 0.0 0 - 4.00The FDA requires that the method used for PSA assay be reported to the physician. Values obtained with different assay methods must not be used interchangeably. This test was performed at [facility] using the JumpLinc PSA method, which is a sandwich immunoassay using chemiluminescence for quantitation. The assay is approvedfor measurement of prostate-specific antigen (PSA) in serum and may be used in conjunction with a digital rectalexamination in men 50 years and older as an aid in detection of prostate cancer. 8-Kursn-czucbhrhs inhibitors (e.g. Proscar, Finasteride, Avodart, Dutasteride and Rosita) for the treatment of BPH have been shown to lower PSA levels by an average of 50% after 6 months of treatment. TESTOSTERONEon 09-20-2022 Testosterone [Mass/Vol] 92 ng/dL Low 240 - 1000 [facility] Comment on above: Result Comment: Nand rolone decanoate, 11 Beta-hydroxytestosterone, androstenedione, testosterone propionate and 52-pyux-wzqjziqjexcw strongly cross react with this test method. Biotin interference may cause falsely elevated results. Patients taking a Biotin dose of up to 5 mg/day should refrain from taking Biotin for 24 hours before sample collection. Providers may contact their local laboratory for further information. Performed By: #### T EST #### [facility] [address] [place] [address] Testosterone, Levelon 2022 Testosterone [Mass/Vol] 92 ng/dL below low threshold 240 - 1000 OM-Kiiayct-C anita [place] Work Phone: Comment on above: Nandrolone decanoate , 11 Beta-hydroxytestosterone, androstenedione, testosterone propionate and 71-fwvl-vgiwmupeokmc strongly cross react with this test method. Biotin interference may cause falsely elevated results. Patients taking a Biotin dose of up to 5 mg/day should refrain from taking Biotin for 24 hours before sample collection. Providers may contact their local laboratory for further information. Established Visit (Orthopaed ic Surgery)on 09-11-2022 Established Visit (Orthopaedic Surgery) Diagnoses/Problems Assessed Lumbar radiculopathy (724.4) (M54.16) Orders Lumbar radiculopathy Pain Management Referral Evaluation and Treatment Evaluate AND Treat Status: Hold For - Scheduling,Retrospective Authorization Requested for: [id number] Neck pain Physical Therapy - [facility] Referral Evaluation and Treatment Evaluate AND Treat Status: Hold For - Scheduling,Retrospective Authorization Requested for: [id number] Chief Complaint Low back pain. MRI review. History of Present Illness Patient returns for follow-up. He was seen recently by Gil Muñoz. Has a history of prostate cancer and previous laminectomy done in the in his lumbar spine. He has had progressively worsening lower back pain with difficulty standing and walking. The pain radiates down his posterior thighs bilaterally. He is quite miserable at this point. He has not had any formal treatment for his lower back. He is a current smoker, cutting down from 2 packs a day, smokes just under a pack a day currently. On exam he does not have any focal neurologic deficits. Normal gait without assistive device. I personally reviewed imaging studies of his lumbar spine. These demonstrate previous laminectomy from L3-5. He has good central decompression. There is degenerative scoliosis present with persistent lateral recess and foraminal stenosis from L2-5. At this point I explained we should attempt some conservative measures. I recommended physical therapy and pain management referrals. I also discussed the importance of smoking cessation and told him in this he quit smoking he is not really a surgical candidate at all. He can follow-up with me as needed if he does not improve and would like to pursue surgery. This note was dictated using speech recognition software and was not corrected for spelling or grammatical errors. Active Problems Problems Acute pain of right hip (719.45) (M25.551) Lumbar radiculopathy (724.4) (M54.16) Prostate cancer (185) (C61) Smoking addiction (305.1) (F17.200) Urinary incontinence (788.30) (R32) Past Medical History Problems History of radiation therapy (V15.3) (Z92.3) Social History Problems Smoking addiction (305.1) (F17.200) Signatures Electronically signed by : Sanket Burgess MD; Sep 11 2022 3:59PM EST (Author) Normal [facility] IO UA (automated w/o microsc opy)on 09-11-2022 Protein (U) [Mass/Vol] Negative TI-Txrcixt-H edar [employer] Work Phone: [phone] IO UA (automated w/o microscopy) Negative RD-Tmxluax-L edar [place] Work Phone: [phone] IO UA (automated w/o microscopy) Normal (0.2-1.0 mg/dl) MG-Urolog y-C edar [place] Work Phone: [phone] IO UA (automated w/o microscopy) 7.0 1 UP-Xexqneq-K edar [place] Work Phone: [phone] IO UA (automated w/o microscopy) 1.015 1 QA-Zcazaes-M ed[facility] [employer] Work Phone: [phone] IO UA (automated w/o microscopy) Clear OV-Tbskmja-H [facility] Work Phone: [phone] IO UA (automated w/o microscopy) Yellow GU-Oqhxkfy-D [facility] [employer] Work Phone: Office Visit (Urology)on Follow-up visit Diagnoses/Problems Assessed Prostate cancer (185) (C61) Smoking addiction (305.1) (F17.200) Urinary incontinence (788.30) (R32) Orders Prostate cancer IO UA (automated w/o microscopy); Status:Resulted - Requires Verification,Retrospective By Protocol Authorization; Done: 11Sep2022 09:27AM Performed:In Office; Due:10Dec2022; Last Updated By:Malcom Osborn; 09/11/2022 9:28:55 AM;Ordered; For:Prostate cancer; Ordered By:Juana Scales; Patient Discussion/Summary #Erectile Dysfunction -will fu for doppler, already scheduled. #Prostate Cancer S/p prostatectomy. #Pain with urination -Cystoscopy normal, completed today without complication. #Smoking Addiction -Smoking cessation encouraged. fu for doppler, already scheduled. By signing my name below, I, Fred Day scribe, attest that this documentation has been prepared under the direction and in the presence of Dr. Juana Scales. All medical record entries made by the scribe were at my direction and personally dictated by me. I have reviewed the chart and agree that the record accurately reflects my personal performance of the history, physical exam, discussion, and plan. Chief Complaint Cystoscopy History of Present IllnessPatient who presents with an elevated PSA. Last visit 09/03/22: -will schedule intracavernosal injection and penile duplex ultrasound. S/p prostatectomy. -Cystoscopy. Discussed risks, including bleeding, infection, damage to adjacent structures, need for further procedures, recurrence, etc -urine cx -Smoking cessation encouraged. Today's visit: #Pain with urination -Presents today for cystoscopy. #Elevated PSA Urinary Difficulties: yes Unexpected weight loss: yes Bone pain: yes-lower back/hips Family history of prostate cancer: yes-self Previous biopsy:yes, prostatectomy Smoker? yes [place] with agent orange exposure: No #Erectile Dysfunction -Duration: 2 years -Rigidity of erections:0 /10 -Able to maintain until ejaculation:no -Morning Erections: absent -s/p prostatectomy: yes -Hernia Repair? yes as a child -on nitrates/NTG?: no -smoker? yes from 2 packs to 1/2 pack. -partner- -Tried PDE5is?: no ---Viagra/sildenafil - response: No response after prostatectomy. ---Cialis/tadalafil- response: No response after prostatectomy. -Tried penile injections: no - Libido/Desire: strong - been on Testosterone /anabolic steroids? yes -Pain or curvature in penis when erect: none -Premature or delayed ejaculation: none -Pain on straining during urination. Urinalysis 07/08/22: Within normal ranges. Urine Culture 09/03/22: Negative. Active Problems Problems Acute pain of right hip (719.45) (M25.551) Lumbar radiculopathy (724.4) (M54.16) Prostate cancer (185) (C61) Smoking addiction (305.1) (F17.200) Urinary incontinence (788.30) (R32) Past Medical History Problems History of radiation therapy (V15.3) (Z92.3) Social History Problems Smoking addiction (305.1) (F17.200) Vitals Vital Signs Recorded: 11Sep2022 09:25AM Bkzbyztknrm14.9 F Heart Rate61 Modwukho506 Kpehzdxji57 Height5 ft 11 in Thmqie721 lb BMI Lweyxshder10.27 kg/m2 BSA Calculated1.99 Physical Exam GENITOURINARY / GENITALIA: Testicles descended bilaterally, testicular size 15 cc bilaterally, soft, nontender to palpation Varicocele: none palpable Hydrocele: none palpable Vas deferens and epididymis palpable bilaterally Penis: normal circumcised phallus without lesions, meatus in normal anatomic location. Results/Data IO UA (automated w/o microscopy)11Sep2022 09:27AMThiJuana perez Test NameResultFlagReference IO ColorYellow IO AppearanceClear IO Glucose - UrineNegative IO BilirubinNegative IO KetonesNegative IO Specific Gravity1.015 IO BloodNegative IO pH7.0 IO Protein, UrineNegative IO Urobilinogen Normal (0.2-1.0 mg/dl) IO Nitrite, UrineNegative IO LeukocytesNegative IO ColorYellow IO AppearanceClear IO Glucose - UrineNegative IO BilirubinNegative IO KetonesNegative IO Specific Gravity1.015 IO BloodNegative IO pH7.0 IO Protein, UrineNegative IO Urobilinogen Normal (0.2-1.0 mg/dl) IO Nitrite, UrineNegative IO LeukocytesNegative Cult, [id number] 10:06Juana Alves Test NameResultFlagReference Culture, Urine(Report) PATIENT: LUIS ANGEL AGUILA LOCATION: [facility] [place] ALINA#: [id number] : 53 AGE: SEX: M ORDERED BY: JUANA SCALES SOURCE: URINE COLLECTED: 09/03/22 10:06 ANTIBIOTICS AT [facility].: RECEIVED : 09/03/22 20:23 SITE: Unspecified R E S U L T S URINE CULTURE,BACTERIAL FINAL 09/04/22 13:43 NO GROWTH IO Ultrasound, measurement post-void resid urine and/or bl cap; no [id number] 09:32AMThiJuana perez Test NameResultFlagReference IO Ultrasound, measurement post void resid urine and/or bl cap; non-imag4 mL Procedure Cystoscopy - male LUIS ANGEL AGUILA ident (more content not included)... [facility] Spine w/wo Contraston 09-06-2022 MR Lumbar spine WO and W contrast IT Normal MG-Orthopaed ics-[place] [address] Work Phone: NR MR L-SPINE WO/W CONTRASTo n 09-06-2022 NR MR L-SPINE WO/W CONTRAST Patient Name: LUIS ANGEL AGUILA STUDY: MR L-SPINE WO/W CONTRAST; 09/06/2022 3:10 pm INDICATION: Lumbar radiculopathy; Prostate cancer C61: Prostate cancer M54.16: Lumbar radiculopathy. COMPARISON: Prostate MRI dated 04/05/2022 ACCESSION NUMBER(S): [id number] ORDERING CLINICIAN: GIL MUÑOZ TECHNIQUE: Sagittal T1, T2, STIR, axial T1 and T2 weighted images of the lumbar spine were acquired. Postcontrast axial and sagittal T1 weighted images of the lumbar spine were obtained after intravenous administration of 16 cc Dotarem. FINDINGS: There are 5 lumbar type vertebral bodies with the last well-formed disc space labeled L5-S1. Alignment: There is levocurvature of the lower lumbar spine centered at L3-4. There is straightening of the normal lumbar lordosis. Vertebra/intervertebral discs: Vertebral body heights are maintained. There is diffuse heterogeneity of bone marrow signal with no discrete marrow replacing lesions identified within the lumbar spine. Multilevel fatty endplate degenerative signal changes are seen throughout the lumbar spine. There is moderate to severe multilevel intervertebral disc height loss with disc desiccation. New from the prior prostate MRI from 04/05/2022, there is interval development of T1 hypointense signal within the bilateral sacral ala with associated increased STIR hyperintense signal. Conus medullaris: The conus medullaris terminates normally at the L1-2 level. The cauda equina nerve roots are normal in size. T12-L1: Mild facet hypertrophy without spinal canal or neural foraminal narrowing. L1-2: Posterior disc osteophyte complex mildly effaces the ventral thecal sac. There is mild facet and ligamentum flavum hypertrophy with moderate left and mild right neural foraminal narrowing. L2-3: There is mild central spinal canal narrowing secondary to a posterior disc osteophyte complex along with facet and ligamentum flavum hypertrophy. There is moderate right and mild left neural foraminal narrowing. L3-4: There is a posterior disc osteophyte complex with a superimposed right subarticular disc extrusion which extends approximally 1.0 cm inferiorly along the posterior L4 vertebral body. There is mild narrowing of the right lateral recess with abutment of the traversing right L4 nerve root without definite compression. There is overall mild central spinal canal narrowing at this level. Disc osteophyte complex along with facet hypertrophy contributes to moderate right and mild left neural foraminal narrowing. L4-5: There is mild central spinal canal narrowing secondary to components of a posterior disc osteophyte complex along with facet and ligamentum flavum hypertrophy. There is severe bilateral neural foraminal narrowing. L5-S1: There is mild central spinal canal narrowing secondary to components of a posterior disc osteophyte complex along with facet and ligamentum flavum hypertrophy. There is severe bilateral neural foraminal narrowing. Paravertebral and posterior paraspinal soft tissues are unremarkable. Numerous T2 hyperintense lesions are seen within the bilateral kidneys, likely relating to benign renal cysts. IMPRESSION: 1. Moderate multilevel lumbar spondylosis as detailed above, worst at L4-5 and L5-S1 where there is mild central spinal canal and severe bilateral neural foraminal narrowing. 2. New abnormal T1 hypointense, STIR hyperintense signal within the bilateral sacral ala, incompletely characterized however suggesting sacral insufficiency fractures. Recommend dedicated sacral MRI and or nuclear medicine bone scan for further characterization. Note: Notify message sent I personally reviewed the images/study and I agree with the findings as stated. This study was interpreted at [facility], [place], [place]. Electronically signed by: OLAF UNGER MD Normal [facility] Cult, Urineon 09-03-2022 Bacteria identified Cx Nom (U) [id number] Meridiumar Yun Yun Work Phone: IO Ultrasound, measurement p ost-void resid urine and/or bl cap; no imagon 09-03-2022 IO Ultrasound, measurement post-void resid urine and/or bl cap; no imag 4 mL [id number] [place] Work Phone: Office Visit (Urology)on Follow-up visit Diagnoses/Problems Assessed Prostate cancer (185) (C61) Smoking addiction (305.1) (F17.200) Urinary incontinence (788.30) (R32) Orders Prostate cancer, Urinary incontinence IO Ultrasound, measurement post-void resid urine and/or bl cap; no imag; Status:Resulted - Requires Verification,Retrospective By Protocol Authorization; Done: 03Sep2022 09:32AM Performed:In Office; Due:02Dec2022; Last Updated By:Malcom Osborn; 09/03/2022 9:32:50 AM;Ordered; For:Prostate cancer, Urinary incontinence; Ordered By:Juana Scales; Urinary incontinence Cult, Urine; Status:Active - Retrospective By Protocol Authorization; Requested for:03Sep2022; Perform:Lab Services - Lab To Draw (Non-Blood Test); Due:02Dec2022; Last Updated By:Rhonda Hartmann; 09/03/2022 10:06:42 AM;Ordered; For:Urinary incontinence; Ordered By:Juana Scales; Patient Discussion/Summary #Erectile Dysfunction - I discussed the etiology and different treatment modalities for erectile dysfunction. Specifically, we talked about lifestyle factors like smoking, diet, and exercise. We also discussed ED as a sign of systemic disease, and the contributions of elevated cholesterol and elevated blood sugars on erections. We then discussed treatment modalities, specifically PDE5 inhibitors, intracavernosal injections, vacuum erectile devices, and penile prostheses. -will schedule intracavernosal injection and penile duplex ultrasound ? Discussed that this involves an injection in the penis and subsequent ultrasound of penis to measure vasculature. This may result in a prolonged erection, which may require injection of reversal agent prior to discharge. Risks of priapism, pain, scar tissue, bruising, discussed. All questions answered. #Prostate Cancer S/p prostatectomy. #Pain with urination -Cystoscopy. Discussed risks, including bleeding, infection, damage to adjacent structures, need for further procedures, recurrence, etc -urine cx #Smoking Addiction -Smoking cessation encouraged. fu for cysto/doppler By signing my name below, I, diana Cerdaibe, attest that this documentation has been prepared under the direction and in the presence of Dr. Juana Scales. All medical record entries made by the scribe were at my direction and personally dictated by me. I have reviewed the chart and agree that the record accurately reflects my personal performance of the history, physical exam, discussion, and plan. Chief Complaint NPV History of Present IllnessPatient who presents with an elevated PSA #Elevated PSA Urinary Difficulties: yes Unexpected weight loss: yes Bone pain: yes-lower back/hips Family history of prostate cancer: yes-self Previous biopsy:yes, prostatectomy Smoker? yes [place] with agent orange exposure: No #Erectile Dysfunction -Duration: 2 years -Rigidity of erections:0 /10 -Able to maintain until ejaculation:no -Morning Erections: absent -s/p prostatectomy: yes -Hernia Repair? yes as a child -on nitrates/NTG?: no -smoker? yes from 2 packs to 1/2 pack. -partner- -Tried PDE5is?: no ---Viagra/sildenafil - response: No response after prostatectomy. ---Cialis/tadalafil- response: No response after prostatectomy. -Tried penile injections: no - Libido/Desire: strong - been on Testosterone /anabolic steroids? yes -Pain or curvature in penis when erect: none -Premature or delayed ejaculation: none -Pain on straining during urination. Urinalysis 04/03/23: Within normal ranges. Urine Culture 07/08/22: Negative. Active Problems Problems Lumbar radiculopathy (724.4) (M54.16) Prostate cancer (185) (C61) Urinary incontinence (788.30) (R32) Past Medical History Problems History of radiation therapy (V15.3) (Z92.3) Social History Problems Smoking addiction (305.1) (F17.200) Physical Exam GENITOURINARY / GENITALIA: Testicles descended bilaterally, testicular size 15 cc bilaterally, soft, nontender to palpation Varicocele: none palpable Hydrocele: none palpable Vas deferens and epididymis palpable bilaterally Penis: normal circumcised phallus without lesions, meatus in normal anatomic location. Results/Data IO Ultrasound, measurement post-void resid urine and/or bl cap; no [id number] 09:32AMThiJuana perez Test NameResultFlagReference IO Ultrasound, measurement post void resid urine and/or bl cap; non-imag4 mL Cult, [id number] 09:54AMMatt Aguilar Test NameResultFlagReference Culture, Urine(Report) PATIENT: LUIS ANGEL AGUILA LOCATION: C0639 BILL#: [id number] : 53 AGE: SEX: M ORDERED BY: MATT AGUILAR SOURCE: URINE COLLECTED: 07/08/22 09:54 ANTIBIOTICS AT ITZEL.: RECEIVED : 07/09/22 04:05 SITE: R E S U L T S URINE CULTURE,BACTERIAL FINAL 07/10/22 08:32 NO GROWTH Urinalysis, [id number] 09:54AMMatt Aguilar Test NameResultFlagReference White Cells<1 /HPF0-5 Red Blood Cells<1 /HPF0-5 MucousFEW / (more content not included)... Normal [facility] URINE CULTURE,BACTERIALon URINE CULTURE,BACTERIAL PATIENT: LUIS ANGEL AGUILA LOCATION: C1009 BILL#: [id number] : 53 AGE: SEX: M ORDERED BY: JUANA SCALES SOURCE: URINE COLLECTED: 09/03/22 10:06 ANTIBIOTICS AT ITZEL.: RECEIVED : 09/03/22 20:23 SITE: Unspecified R E S U L T S URINE CULTURE,BACTERIAL FINAL 09/04/22 13:43 NO GROWTH Normal [facility] Comment on above: Performed By: #### U A #### [facility] [address] [place] [address] Initial Visit (Orthopaedic S urgery)on 08-22-2022 Initial Visit (Orthopaedic Surgery) *Orders MRI L Spine w/wo Contrast; Status:Active; Requested for:06Sep2022; Perform: Radiology Services Imaging;Ordered; For:Lumbar radiculopathy, Prostate cancer; Ordered By:Gil Muñoz; Chief Complaint patient here for npv lumbar spine pain. -AR History of Present Illness Luis Angel is a 67-year-old male reporting clinic today for evaluation of his low back pain with bilateral radiculopathy. He has a history of prostate cancer with recent recurrence and possible metastases. He has imaging from [facility] which him and his thought included a MRI of the lumbar spine. I do not see any imaging of the lumbar spine included on any of his discs. He has centrally located low back pain that radiates into beltline distribution. He has pain radiating down his legs bilaterally, right worse than left. He does intermittently feel his legs are weak, mostly due to pain. His symptoms are increased with activity, especially bending. He has found nothing makes his symptoms better. He denies dragging or tripping over his feet. He denies any recent change in his bowel or bladder function. Family, social, and medical histories are obtained and reviewed. Current smoker, 3/4 a pack a day. I reviewed the complete 30-point review of systems that was documented on the scanned patient intake form. All other systems are non-contributory except as defined in history of present illness. Const: Well-appearing, well-nourished male in no distress. Eyes: Normal appearing sclera and conjunctiva, no jaundice, pupils normal in appearance. Resp: breathing comfortably, normal respiratory rate. CV: No upper or lower extremity edema. Musculoskeletal: Slow forward leaning gait. Lumbar ROM is supple. Strength exam of the lower extremities reveals 5/5 strength in all major muscle groups with the exception of weakness in the right lower extremity graded 4/5 in the quadriceps and 3/5 in tibialis anterior. Negative straight leg raise bilaterally. Neuro: Sensation is intact and equal bilaterally. Deep tendon reflexes are normal and symmetric. No clonus. Skin: Intact without any lesions, normal turgor. Psych: Alert and oriented x3, normal mood and affect. The plan moving forward is to further evaluate his lumbar radiculopathy with right lower extremity weakness and a history of prostate cancer with metastases. A MRI of the lumbar spine with and without contrast was ordered today. Labs to check kidney function were ordered. He will follow-up with Dr. Burgess once his MRI is complete. This note was dictated using speech recognition software and was not corrected for spelling or grammatical errors. Active Problems Problems Urinary incontinence (788.30) (R32) Past Medical History Problems History of radiation therapy (V15.3) (Z92.3) Signatures Electronically signed by : Gil Muñoz PA-C; Aug 22 2022 4:16PM EST (Author) Normal [facility] AMB - Narrative Note Nursing -F/Uon 08-02-2022 AMB - Narrative Note Nursing-F/U Topic and Description: Topic: F/U Description: Patient here with his for f/u with Dr. Cohn; seen for prostate cancer. Currently holding Zytiga/Prednisone. Patient states the prednisone makes him crazy and he is unable to sleep. Per MD patient to return in September for Lupron injection, referral to ortho, Dominic Webber, for hip and back pain and referral to men's health, Dr. Juana Scales, for sexual dysfunction in the presence of prostate cancer. Patient has a f/u with Dr. Aguilar on 10/07/22. Patient and asking about Provenge treatment. Will research who in does this treatment and make referral accordingly. No barriers to education noted, pt agreed to plan and verbalized understanding using teach back method. Bridgette Mcguire RN OCN Electronic Signatures: Bridgette Mcguire) (Signed 02-Aug-2022 16:49) Authored: Topic and Description Last Updated: 02-Aug-2022 16:49 by Bridgette Mcguire) Normal [facility] Clinic Note - Heme Onc-Follo w Up Visiton 04-28-2023 Clinic Note - Heme Onc-Follow Up Visit Patient Visit Information: Visit Type: Follow Up Visit Cancer History: Treatment Synopsis: Treatment Synopsis: 67 yo man visiting from [place] (Dr. Luis Escobedo) here for prostate cancer: H/o htn, oa, mild COPD. 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, no distant mets or osseous mets 05/29 back to OR for vesicoureteral anastomosis for leak Treatment: 06/26 Lupron 22.5 mg x 2 - stopped d/t patient preference along with apalutamide - stopped d/t constipation and brain fog 11/07/21 - 12/07/21 EBRT whole pelvis and prostate bed boost - aborted early during third week d/t bowel toxicity (severe diarrhea, c diff neg, nausea and poor by mouth intake) (patients decision) Treatment d/c after 44 [place] instead of 70 Gy Prostate bed and nodes - 1400 cGy 7 Prost bed boost 1000 cGy 5 Whole Pelvis 4600 cGy 23 History of Present Illness: ID Statement: LUIS ANGEL AGUILA is a 67 year old Male Interval History: Pt last seen 04/12/22 with slowly rising PSA 0.12 and testosterone 809 04/05/22 MR pelvis - no explanation for scrotal/perineal pain, small local recurrence along vesicourethral anastamosis - 6 mm on L On gabapentin 300 mg by mouth twice a day for pain, not helping could not tolerate zytiga/pred - insomnia and anxiety - stopped after 2 days ED Mild fatigue Review of Systems: System ReviewAll Systems: Negative Allergies and Intolerances: Allergies: morphine: Drug, Itching, Hives/Urticaria, Active predniSONE: Drug, Other, Active Outpatient Medication Profile: * Patient Currently Takes Medications as of 02-Aug-2022 15:04 documented in Structured Notes simvastatin 40 mg oral tablet: Last Dose Taken: , 1 tab(s) orally once a day lisinopril 20 mg oral tablet: Last Dose Taken: , 1 tab(s) orally once a day gabapentin 300 mg oral capsule: Last Dose Taken: , 1 cap(s) orally 3 times a day omeprazole 40 mg oral delayed release capsule: Last Dose Taken: , 1 cap(s) orally 2 times a day meloxicam 15 mg oral tablet: Last Dose Taken: , 1 tab(s) orally 2 times a day hydroCHLOROthiazide 25 mg oral tablet: Last Dose Taken: , 1 tab(s) orally once a day aspirin 81 mg oral tablet: Last Dose Taken: , 1 tab(s) orally once a day Stool Softener with Laxative: Last Dose Taken: , 1 tab(s) orally 2 times a day Vitamin D3 50 mcg (2000 intl units) oral tablet: Last Dose Taken: , 1 tab(s) orally once a day Ocuvite oral tablet: Last Dose Taken: , 1 tab(s) orally once a day calcium citrate: Last Dose Taken: , 600 milligram(s) orally once a day Multiple Vitamins oral tablet: Last Dose Taken: , 1 tab(s) orally once a day Family History: No Family History items are recorded in the problem list. Social History: Social Substance History: Smoking Statuscurrent every day smoker (1) Vitals and Measurements: Vitals: Temp: 35.9 HR: 67 RR: 18 BP: 131/88 SPO2%: 97 Measurements: HT(cm): 176.9 WT(kg): 79.7 BSA: 1.97 BMI: 25.4 Physical Exam: Constitutional: Well developed, awake/alert/oriented x3, no distress, alert and cooperative Eyes: PERRL, EOMI, clear sclera ENMT: mucous membranes moist, no apparent injury, no lesions seen Head/Neck: Neck supple, no apparent injury, thyroid without mass or tenderness, No JVD, trachea midline, no bruits Respiratory/Thorax: Patent airways, CTAB, normal breath sounds with good chest expansion, thorax symmetric Cardiovascular: Regular, rate and rhythm, no murmurs, 2+ equal pulses of the extremities, normal S 1and S 2 Gastrointestinal: Nondistended, soft, non-tender, no rebound tenderness or guarding, no masses palpable, no organomegaly, +BS, no bruits Genitourinary: No Discharge, vesicles or other abnormalities Musculoskeletal: ROM intact, no joint swelling, normal strength Extremities: normal extremities, no cyanosis edema, contusions or wounds, no clubbing Neurological: alert and oriented x3, intact senses, motor, response and reflexes, normal strength Breast: No masses, tenderness, no discharge or discoloration Lymphatic: No significant lymphadenopathy Psychological: Appropriate mood and behavior Skin: Warm and dry, no lesions, no rashes Lab Results: Results CBC date/time WBC HGB HCT PLT Neut 12-Jun-2022 11:44 6.1 13.9 42.6 263 3.98 BMP date/time NA K CL CO2 BUN CREAT 12-Jun-2022 11:44 138 4.3 101 N/A 16 0.84 Prostate Specific Antigen 12-Jun-2022 11:44:00 ResultValue Prostate Specific Antigen <0.10 Testosterone, Level 12-Jun-2022 11:44:00 ResultValue Testosterone, Level 534 Radiology Result: Results Re (more content not included)... Normal [facility] Clinic Note - Intakeon 08-02 Clinic Note - Intake Patient Visit Infor mation: Visit TypeFollow Up Visit Source of Informationpatient Admission Information: Admission Since Last VisitNo Admission [id number] Vital Signs: Temp (degrees C)35.9 degrees C Temperaturetympanic Heart Rate (beats/min)67 beats per minute Respiration (breaths/min)18 breath per minute BP Systolic (mm Hg)131 mmHg BP Diastolic (mm Hg)88 mmHg BP Mean (mm Hg)102 mmHg Height in cm176.9 centimeter(s) Weight in kg79.7 kilogram(s) Weightstanding BMI (kg/m2)25.4 kg/M2 BSA (m2)1.97 M2 Last 3 Weights & HeightsDate: Weight/Scale Type:Height: 22-Jul-2022 10:3677.7 kg 176.9 cm 21-Jun-2022 08:2182 kg 176.9 cm 12-Jun-2022 10:4781.2 kg 176.9 cm SpO2 (%)97 % SpO2 Patient Onroom air Pain Screening: Patient States Painyes Current Pain Score (0-10)5 Pain Description/Locationback Pain Scale UsedNumeric (0-10) Currently on a Pain Regimenyes Adequately Controlledyes Nurse Notifiedyes 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 Notifiedno Notifiedyes Surgical Corsetier for intimate exam offered to patient: Patient hasdeclined Allergies: morphine: Drug, Itching, Hives/Urticaria, Active predniSONE: Drug, Other, Active Outpatient Medication Profile: * Patient Currently Takes Medications as of 02-Aug-2022 15:04 documented in Structured Notes simvastatin 40 mg oral tablet: Last Dose Taken: , 1 tab(s) orally once a day lisinopril 20 mg oral tablet: Last Dose Taken: , 1 tab(s) orally once a day gabapentin 300 mg oral capsule: Last Dose Taken: , 1 cap(s) orally 3 times a day omeprazole 40 mg oral delayed release capsule: Last Dose Taken: , 1 cap(s) orally 2 times a day meloxicam 15 mg oral tablet: Last Dose Taken: , 1 tab(s) orally 2 times a day hydroCHLOROthiazide 25 mg oral tablet: Last Dose Taken: , 1 tab(s) orally once a day aspirin 81 mg oral tablet: Last Dose Taken: , 1 tab(s) orally once a day Stool Softener with Laxative: Last Dose Taken: , 1 tab(s) orally 2 times a day Vitamin D3 50 mcg (2000 intl units) oral tablet: Last Dose Taken: , 1 tab(s) orally once a day Ocuvite oral tablet: Last Dose Taken: , 1 tab(s) orally once a day calcium citrate: Last Dose Taken: , 600 milligram(s) orally once a day Multiple Vitamins oral tablet: Last Dose Taken: , 1 tab(s) orally once a day Notification: NotificationsAnnual Screens Due Dates ____ Advanced Directives: Jun 12, 2023 Family Violence: Jul 22, 2023 Depression (Due every 6 months for ONC only; all others use Annual date): Dec 18, 2022 Substance Use - Alcohol: Jun 12, 2023 Substance Use - Drugs: Jun 12, 2023 Nutrition: Jul 22, 2023 Learning: Jul 22, 2023 Travel History: COVID-19 Screening Completedno exposure or symptoms Travel or ExposureNO travel to International locations in the past 30 days Falls: Have you fallen in the last 6 monthsno Do you have a fear of fallingno Do you feel you need assistanceno Is the patient using an assistive deviceno Not a falls riskimplement environmental risk factors interventions Spiritual/Procedural: Spiritual/cultural/religio us practices important for us to knowno Oncology Nutrition: During the past 2 weeks, weight has(0) not changed Intake past month, compared to normal intake(0) unchanged Problems keeping me from eating past 2 weeks (0) no problem eating In the past month, my activity/functioning rating is(0) normal with no limitations Score 6 or > notify clinician0 Violence: Are you or have you been threatened or abused physically,emotionally or sexually abused by anyoneno Do you feel UNSAFE going back to the place you are livingno Depression: Past 2 wks: [place] down, depressed or hopelessno Past 2 wks: [place] little interest/pleasure doing thingsno Any Thoughts of Harming Othersno In the Past Month: Have you wished you were or could go to sleep and not wake upno In the Past Month: Have you had any actual thoughts of killing yourselfno Lifetime: Have you ever done, started to do, or prepared to do anything to end your lifeno Nutrition/Learning: In the past month, was there any day when you or anyone in your family went hungry because you didn't have enough foodno Primary LanguageEnglish Do you, or others today, need extra help due to problems with hearing,speaking, seeing, moving around or learningno Electronic Signatures: Tiffani Mcelroy) (Signed 02-Aug-2022 15:05) Authored: Patient Visit Information, Vital Signs, Surgical Corsetier, Allergies, Outpatient Medication Profile, Notification, Travel History, Falls, Spiritual/Procedural, Oncology Nutrition, Violence, Depression, Nutrition/Learning Last Updated: 02-Aug-2022 15:05 by Tiffani Mcelroy) Normal [facility] Phone Note - Heme Onc-order entry administrator - f/uon 07-29-2022 Phone Note - Heme Onc-order entry administrator - f/u Phone Call Information: Patient Demographics: Name: LUIS ANGEL AGUILA Date: 1955 Address: [address] [place] [address] [place] [address] Primary Phone Number: [phone] Reason for Call: Reason for Callorder entry, f/u Outpatient Medication Profile: * Patient Currently Takes Medications as of 22-Jul-2022 10:42 documented in Structured Notes simvastatin 40 mg oral tablet: 1 tab(s) orally once a day lisinopril 20 mg oral tablet: 1 tab(s) orally once a day gabapentin 300 mg oral capsule: 1 cap(s) orally 3 times a day omeprazole 40 mg oral delayed release capsule: 1 cap(s) orally 2 times a day meloxicam 15 mg oral tablet: 1 tab(s) orally 2 times a day hydroCHLOROthiazide 25 mg oral tablet: 1 tab(s) orally once a day aspirin 81 mg oral tablet: 1 tab(s) orally once a day Stool Softener with Laxative: 1 tab(s) orally 2 times a day Vitamin D3 50 mcg (2000 intl units) oral tablet: 1 tab(s) orally once a day Ocuvite oral tablet: 1 tab(s) orally once a day calcium citrate: 600 milligram(s) orally once a day Multiple Vitamins oral tablet: 1 tab(s) orally once a day Orders: PET CT Prostate PSMA, [place]; Outpatient Ambulatory Special Instructions: Please have prior to 06/21/22 Lupron injection per request of , 19-Jun-2022, Pending, Standard Allergies: morphine: Itching, Hives/Urticaria predniSONE: Other Lab Results: Results CBC date/time WBC HGB HCT PLT Neut 12-Jun-2022 11:44 6.1 13.9 42.6 263 3.98 BMP date/time NA K CL CO2 BUN CREAT 12-Jun-2022 11:44 138 4.3 101 N/A 16 0.84 Electronic Signatures: Bridgette Mcguire) (Signed 29-Jul-2022 16:55) Authored: Phone Call Information, Outpatient Medication Profile, Orders, Allergies, Results Last Updated: 29-Jul-2022 16:55 by Bridgette Mcguire) Normal [facility] Clinic Note - Intakeon 07-22 Clinic Note - Intake Patient Visit Infor mation: Visit TypeNew Visit, Consult Source of Informationpatient Accompanied byspouse Admission Information: Admission [id number] Vital Signs: Temp (degrees C)30.2 degrees C Temperaturetympanic Heart Rate (beats/min)75 beats per minute Respiration (breaths/min)18 breath per minute BP Systolic (mm Hg)137 mmHg BP Diastolic (mm Hg)79 mmHg BP Mean (mm Hg)98 mmHg Height in cm176.9 centimeter(s) Weight in kg77.7 kilogram(s) Weightstanding BMI (kg/m2)24.8 kg/M2 BSA (m2)1.95 M2 SpO2 (%)95 % SpO2 Patient Onroom air Pain Screening: Patient States Painno (0) Allergies: morphine: Drug, Itching, Hives/Urticaria, Active predniSONE: Drug, Other, Active Outpatient Medication Profile: * Patient Currently Takes Medications as of 22-Jul-2022 10:42 documented in Structured Notes simvastatin 40 mg oral tablet: Last Dose Taken: , 1 tab(s) orally once a day lisinopril 20 mg oral tablet: Last Dose Taken: , 1 tab(s) orally once a day gabapentin 300 mg oral capsule: Last Dose Taken: , 1 cap(s) orally 3 times a day omeprazole 40 mg oral delayed release capsule: Last Dose Taken: , 1 cap(s) orally 2 times a day meloxicam 15 mg oral tablet: Last Dose Taken: , 1 tab(s) orally 2 times a day hydroCHLOROthiazide 25 mg oral tablet: Last Dose Taken: , 1 tab(s) orally once a day aspirin 81 mg oral tablet: Last Dose Taken: , 1 tab(s) orally once a day Stool Softener with Laxative: Last Dose Taken: , 1 tab(s) orally 2 times a day Vitamin D3 50 mcg (2000 intl units) oral tablet: Last Dose Taken: , 1 tab(s) orally once a day Ocuvite oral tablet: Last Dose Taken: , 1 tab(s) orally once a day calcium citrate: Last Dose Taken: , 600 milligram(s) orally once a day Multiple Vitamins oral tablet: Last Dose Taken: , 1 tab(s) orally once a day Notification: NotificationsAnnual Screens Due Dates ____ Advanced Directives: Jun 12, 2023 Family Violence: Jun 21, 2023 Depression (Due every 6 months for ONC only; all others use Annual date): Dec 18, 2022 Substance Use - Alcohol: Jun 12, 2023 Substance Use - Drugs: Jun 12, 2023 Nutrition: Jun 21, 2023 Learning: Jun 21, 2023 Travel History: COVID-19 Screening Completedno exposure or symptoms Travel or ExposureNO travel to International locations in the past 30 days Falls: Have you fallen in the last 6 monthsno Do you have a fear of fallingno Do you feel you need assistanceno Is the patient using an assistive deviceno Not a falls riskimplement environmental risk factors interventions Oncology Nutrition: I am now taking(1) normal food but less than normal amount During the past 2 weeks, weight has(0) not changed Intake past month, compared to normal intake(0) more than usual Problems keeping me from eating past 2 weeks (2) mouth sores In the past month, my activity/functioning rating is(1) not my normal self, but able to be up and about with fairly normal activities Score 6 or > notify clinician4 Violence: Are you or have you been threatened or abused physically,emotionally or sexually abused by anyoneno Do you feel UNSAFE going back to the place you are livingno Nutrition/Learning: In the past month, was there any day when you or anyone in your family went hungry because you didn't have enough foodno Primary LanguageEnglish Do you, or others today, need extra help due to problems with hearing,speaking, seeing, moving around or learningno Electronic Signatures: Silvia Frazier) (Signed 22-Jul-2022 10:43) Authored: Patient Visit Information, Vital Signs, Allergies, Outpatient Medication Profile, Notification, Travel History, Falls, Oncology Nutrition, Violence, Nutrition/Learning Last Updated: 22-Jul-2022 10:43 by Silvia Frazier) Normal [facility] Clinic Note - Rad Onc-Outpat ient Consulton 07-22-2022 Clinic Note - Rad Onc-Outpatient Consult Visit Information: Visit TypeOutpatient Consult Disease GroupAdult Oncology History of Present Illness: Interval History: RADIATION ONCOLOGY NEW PATIENT CONSULTATION DIAGNOSIS: (1) Prostate adenocarcinoma. Stage III vs IV cT2 N1 M0 GG2 PSA 54. Pathological Stage IV pT3b N1 M0 R1. Disease noted in pelvic LNs on PSMA PET post op. s/p salvage radiation therapy, but treatment discontinued due to nausea and vomiting. (1a) Rising PSA, now on Lupron. This is the reason for evaluation today. (2) R Hip and back pain from history of trauma and degenerative disease CHIEF COMPLAINT: Interested in hearing about radiation therapy options for this cancer REFERRING PHYSICIAN: Dept of Radiation Oncology in [facility] in [place] requested for the patient to see me in the Department of Radiation Oncology regarding the chief complaint. The patient was seen for an opinion regarding radiation options for the diagnosis above. I personally reviewed the available outside records and imaging studies. A summary of these findings is detailed below. In addition, I included a detailed history provided to me by the patient. The allergies, medications, past medical history, surgical history, social history, family history, and review of systems on the nursing intake form from today were reviewed and are uploaded separately. HISTORY OF PRESENT ILLNESS: He presented with hematuria which prompted a CT AP. Dec 2020 PSA 54. He was seen by Dr Luis Escobedo. Jan 24, 2021 prostate bx reveals GG3 adenocarcinoma. Apr 07, 2021 he had RP that revealed pT3b N1 R1 disease. There was HELADIO, PNI, LVI. There was [address] involved. Post op PSA was 18. May 17, 2021 he was taken back to the OR due to a leak from the VUA June 07, 2021 PMSA PET revealed metastatic disease in the pelvic lymph nodes. June 28, 2021 He started Lupron Sep 20, 2021 he stopped Lupron JulyAugust 2021 He was on apalutamide but stopped due to brain fog, constipation. Nov 07, 2021 Dec 07, 2021 he received radiotherapy to the prostate and pelvis, but it was aborted at week 3 because he was having nausea and diarrhea, which the pt presumed was from radiotherapy. He received 44 Gy in 2 Gy fractions total. Dec 13, 2021 PSA 0.03. Mar 2022 he was planning to relocate to [place]. He was having pain in his pelvis for several weeks, which eh attributed to RT. Apr 05, 2022 MRI pelvis performed. Impression from outside facility is that it did not show any reason for the pain. There was reportedly a possible local recurrence near the VUA, measuring 6 mm. I do not have the images available for review; however, in general, for a lesion < 1 cm, it is difficult to ascertain if it is recurrence. Moreover, with PSA so low, it is very unlikely to be recurrence. Apr 12, 2022 his PSA is 0.12 and testosterone is 809. He was seen by Dr Escobedo. His case was reportedly discussed at tumor board. It was unclear that this was causing his scrotal pain. He was recommended to start ADT and see Dr Ryan Cohn. July 22, 2022 he reports to radiation oncology with his . He feels relatively well. There is chief complaint has been L-spine back pain and right-sided hip pain. He tells me that he has a history of trauma from bull riding accidents that are likely the cause of this. He has seen an orthopedic physician in [place] for this, and surgical treatment options were discussed, but he was not a good candidate because he continues to smoke cigarettes. He has been smoking for over 50 years, and he has no interest in quitting today. Next, he is dissatisfied with his sexual function, which started after his surgery, his CAMILA score is less than 5 today. He has a meeting scheduled with a urologist in this area to discuss treatment options for the erectile dysfunction, but he does not the name of the urologist. PMH: HTN, LD, OA, COPD, tobacco abuse with cigarettes System ReviewAll Systems: Negative Allergies and Intolerances: Allergies: morphine: Drug, Itching, Hives/Urticaria, Active predniSONE: Drug, Other, Active Outpatient Medication Profile: * Patient Currently Takes Medications as of 22-Jul-2022 10:42 documented in Structured Notes simvastatin 40 mg oral tablet: Last Dose Taken: , 1 tab(s) orally once a day lisinopril 20 mg oral tablet: Last Dose Taken: , 1 tab(s) orally once a day gabapentin 300 mg oral capsule: Last Dose Taken: , 1 cap(s) orally 3 times a day omeprazole 40 mg oral delayed release capsule: Last Dose Taken: , 1 cap(s) orally 2 times a day meloxicam 15 mg oral tablet: Last Dose Taken: , 1 tab(s) orally 2 times a day hydroCHLOROthiazide 25 mg oral tablet: Last Dose Taken: , 1 tab(s) orally once a day aspirin 81 mg oral tablet: Last Dose Taken: , 1 tab(s) orally once a day Stool Softener with Laxative: Last Dose Taken: , 1 tab(s) orally 2 times a day Vitamin D3 50 mcg (1999 i (more content not included)... Normal [facility] UA MICROSCOPICon 07-09-2022 Mucus Ql (Urine sed) FEW Normal [facility] Comment on above: Performed By: #### U A #### [facility] [address] [place] [address] RBC (U) [#/Vol] /uL Normal 0-5 [facility] Comment on above: Performed By: #### U A #### [facility] [address] [place] [address] WBC (U) [#/Vol] /uL Normal 0-5 [facility] Comment on above: Performed By: #### U A #### [facility] [address] [place] [address] Cult, Urineon 07-08-2022 Bacteria identified Cx Nom (U) JQ-Ofwwrws-P entor Work Phone: IO Ultrasound, measurement p ost-void resid urine and/or bl cap; no imagon 07-08-2022 IO Ultrasound, measurement post-void resid urine and/or bl cap; no imag 0 ml/min LJ-Bvmkpkg-B eauga Work Phone: Office Visit (Urology)on Follow-up visit Diagnoses/Problems Assessed Prostate cancer (185) (C61) History of radiation therapy (V15.3) (Z92.3) Urinary incontinence (788.30) (R32) Orders Prostate cancer Urinalysis, Microscopic; Status:Active - Retrospective Authorization; Requested for:08Jul2022; Perform:Lab Services - Lab To Draw (Non-Blood Test); Due:06Oct2022; Last Updated By:Savannah Gage; 07/08/2022 9:54:32 AM;Ordered; For:Prostate cancer; Ordered By:Matt Aguilar; Prostate cancer, Urinary incontinence Cult, Urine; Status:Active - Retrospective By Protocol Authorization; Requested for:08Jul2022; Perform:Lab Services - Lab To Draw (Non-Blood Test); Due:06Oct2022; Last Updated By:Savannah Gage; 07/08/2022 9:54:32 AM;Ordered; For:Prostate cancer, Urinary incontinence; Ordered By:Matt Aguilar; IO Ultrasound, measurement post-void resid urine and/or bl cap; no imag; Status:Resulted - Requires Verification,Retrospective Authorization; Done: 08Jul2022 09:48AM Performed:In Office; Due:06Oct2022; Last Updated By:Savannah Gage; 07/08/2022 9:54:32 AM;Ordered; For:Prostate cancer, Urinary incontinence; Ordered By:Matt Aguilar; Patient Discussion/Summary 67 yo male with metastatic prostate cancer, s/p ADT, and XRT. He was referred to urology for evaluation of urinary symptoms, specifically urinary leakage. I personally reviewed the medical records of the patient including the lab values, the note of the referring physician, and I reviewed the report and visualized the images performed. *Now, PSA is undetectable. Negative UA, and urine culture. He has spontaneously leakage of urine, not particularly affected by a cough or sneeze. One week ago, he was started on Oxybutynin, has minor side effect of dry mouth. Bladder scan today shows empty bladder. Plan: Continue Oxybutinin Continue treatment as per medical oncology, will discuss with Dr. Cohn Continue to observe the 6mm nodule in prostate fossa Continue to monitor PSA Scribed for Dr. Matt Aguilar by Marizol Méndez medical technician, on 07/08/22 at 9:10 am EST. I, Dr. Matt Aguilar, have personally reviewed and agree with the information entered by the scribe. Chief Complaint Urinary incontinence History of Present [age]mmeg60 yo male, NPV, was kindly referred by Dr. Ryan Cohn for urinary incontinence. He is followed by oncology for metastatic prostate cancer, s/p ADT, and XRT. He was referred to urology for evaluation of urinary symptoms, specifically urinary leakage, which has worsened. Negative UA, and urine culture. He reports post-operative bladder tear, which occurred 1 month after prostatectomy in December 2021. He had another surgery for re-anastomosis. He is actively being treated with Lupron. Zytiga with prednisone was added, but he became very irritable and jittery so he decided to stop the proednisone. *Now, he has urinary leakage, occasionally there is blood in the urine. He is wearing incontinence pads. He continues the Kegel exercises. The leakage occurs spontaneously, and is not affected by a cough or sneeze. 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 One week ago, he was started on oxybutynin by Dr. Cohn.He reports that since he started it, his symptoms are getting better. He has a dry mouth with the medication. Significant history: (per oncology note) 1. On 12/26 PSA 54 2. On 01/25 prostate biopsy, GG3 prostate adenocarcinoma, on path 3. On 04/28 s/p prostatectomy, GG2, invasion seminal vesicles bilat, extraprostatic extension, positive surgical margin 4. On 06/26 s/p Lupron, stopped d/t brain fog and constipation 5. On 12/27 s/p salvage radiation, stopped d/t bowel toxicity June 2022 PSA <0.10, Testosterone 534. 04/02/22 PSA 0.12 03/20/22 PSA 0.23 January 2022 PSA 0.08 September 2021 PSA 0.14 12/26 PSA 54 04/29/22 MRI prostate: ([facility]) 6mm Left lateral recurrence along vesicoureteral anastomosis (previously surgically repaired) PMH: HTN, and COPD CAMILA Score: 0 International Prostate Symptom Score (I-PSS) I-PSS Total Score: 15 Quality of Life Score: 3 Review of Systems A complete review of systems was performed. All systems are noted to be negative unless indicated in the history of present illness, impression, active problem list, or past histories. Past Medical History Problems History of radiation therapy (V15.3) (Z92.3) Physical Exam General: Well developed, well nourished, alert and cooperative, appears in no acute distress Eyes: Non-injected conjunctiva, sclera clear, no proptosis Cardiac: Extremities are warm and well perfused. No edema, cyanosis or pallor. Lungs: Breathing is easy, non-labored. Speaking in clear and complete sentences. Normal diaphragmatic movement. Abdomen: laparoscopic cars, soft, non-tender MSK: Ambulatory with steady gait, unassisted Neuro: alert and oriented to person, place and time Psych: Demonstrates good judgement and reason, without hallucinations, abnormal affect or (more content not included)... Normal [facility] URINE CULTURE,BACTERIALon URINE CULTURE,BACTERIAL PATIENT: LUIS ANGEL AGUILA LOCATION: [id number] BILL#: [id number] : 53 AGE: SEX: M ORDERED BY: MATT AGUILAR SOURCE: URINE COLLECTED: 07/08/22 09:54 ANTIBIOTICS AT ITZEL.: RECEIVED : 07/09/22 04:05 SITE: R E S U L T S URINE CULTURE,BACTERIAL FINAL 07/10/22 08:32 NO GROWTH Normal [facility] Comment on above: Performed By: #### U [facility] #### [facility] [id number] [place] [address] Urinalysis, Microscopicon Urinalysis, Microscopic FEW VS-Ganalpu-S eauga Work Phone: Urinalysis, Microscopic <1 0-5 XU-Oqwdxng-S eauga Work Phone: AMB - Narrative Note Nursing -Abirateroneon 07-03-2022 AMB - Narrative Note Nursing-Abiraterone Topic and Description: Topic: Abiraterone Description: Received email from [facility], Kim Miller, Patient to receive his Abiraterone/Prednisone this Friday (07/05/22/). Bridgette Mcguire RN OCN Electronic Signatures: Bridgette Mcguire) (Signed 03-Jul-2022 15:46) Authored: Topic and Description Last Updated: 03-Jul-2022 15:46 by Bridgette Mcguire (BRYSON) Normal [facility] AMB - Narrative Note Nursing -F/U and Txon 06-21-2022 AMB - Narrative Note Nursing-F/U and Tx Topic and Description: Topic: F/U & Tx Description: Patient here with his for f/u and treatment with Dr. Cohn; seen for prostate cancer. Receives Lupron Q 3 months. Will receive today per MD. Labs drawn today CBCd, CMP, PSA, Testosterone. Patient states he was diagnosed with strep throat yesterday and placed on antibiotics. MD made aware. Patient to return in 3 months for f/u, above labs and Lupron injection. No barriers to education noted, pt agreed to plan and verbalized understanding using teach back method. Bridgette Mcguire RN OCN Electronic Signatures: Bridgette Mcguire) (Signed 21-Jun-2022 09:15) Authored: Topic and Description Last Updated: 21-Jun-2022 09:15 by Bridgette Mcguire (BRYSON) Normal [facility] Clinic Note - Heme Onc-Follo w Up Visiton 03-17-2023 Clinic Note - Heme Onc-Follow Up Visit Patient Visit Information: Visit Type: Follow Up Visit Cancer History: Treatment Synopsis: Treatment Synopsis: 67 yo man visiting from [place] (Dr. Luis Escobedo) here for prostate cancer: H/o htn, oa, mild COPD. 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 12/[address] 01/25 biopsy with grade group 3 prostate adenocarcinoma Bone scan neg 04/20/21 Prostatectomy grade group 2, inv seminal vesicles bilat, extraprostatic extension, PNI/LVI, positive surgical margin, [address] pos - pT3bN1 (Gia 3+4) Post op PSA 18 PSMA pet - e/o mets within LN's in pelvis, no distant mets or osseous mets 05/29 back to OR for vesicoureteral anastomosis for leak Treatment: 06/26 Lupron 22.5 mg x 2 - stopped d/t patient preference along with apalutamide - stopped d/t constipation and brain fog 11/07/21 - 12/07/21 EBRT whole pelvis and prostate bed boost - aborted early during third week d/t bowel toxicity (severe diarrhea, c diff neg, nausea and poor by mouth intake) (patients decision) Treatment d/c after 44 [place] instead of 70 Gy Prostate bed and nodes - 1400 cGy 7 Prost bed boost 1000 cGy 5 Whole Pelvis 4600 cGy 23 History of Present Illness: ID Statement: LUIS ANGEL AGUILA is a 67 year old Male Interval History: Pt last seen 04/12/22 with slowly rising PSA 0.12 and testosterone 809 04/05/22 MR pelvis - no explanation for scrotal/perineal pain, small local recurrence along vesicourethral anastamosis - 6 mm on L On gabapentin 300 mg by mouth twice a day for pain, not helping Urinary incont last month and worsening often, wearing diapers. Gaining wt post radiation now Tolerated lupron 04/29 without side effects Pt had some hematuria, improved, now with strep throat yest on amox Review of Systems: System ReviewAll Systems: Negative Allergies and Intolerances: Allergies: morphine: Drug, Itching, Hives/Urticaria, Active Outpatient Medication Profile: * Patient Currently Takes Medications as of 12-Jun-2022 11:44 documented in Structured Notes predniSONE 5 mg oral tablet: 1 tab(s) orally once a day , Start Date: 12-Jun-2022 abiraterone 250 mg oral tablet: 4 tab(s) orally once a day , Start Date: 12-Jun-2022 simvastatin 40 mg oral tablet: 1 tab(s) orally once a day lisinopril 20 mg oral tablet: 1 tab(s) orally once a day gabapentin 300 mg oral capsule: 1 cap(s) orally 3 times a day omeprazole 40 mg oral delayed release capsule: 1 cap(s) orally 2 times a day meloxicam 15 mg oral tablet: 1 tab(s) orally 2 times a day hydroCHLOROthiazide 25 mg oral tablet: 1 tab(s) orally once a day aspirin 81 mg oral tablet: 1 tab(s) orally once a day Stool Softener with Laxative: 1 tab(s) orally 2 times a day Vitamin D3 50 mcg (2000 intl units) oral tablet: 1 tab(s) orally once a day Ocuvite oral tablet: 1 tab(s) orally once a day calcium citrate: 600 milligram(s) orally once a day Multiple Vitamins oral tablet: 1 tab(s) orally once a day Social History: Social Substance History: Smoking Statusunknown if ever smoked (1) Physical Exam: Constitutional: Well developed, awake/alert/oriented x3, no distress, alert and cooperative Eyes: PERRL, EOMI, clear sclera ENMT: mucous membranes moist, no apparent injury, no lesions seen Head/Neck: Neck supple, no apparent injury, thyroid without mass or tenderness, No JVD, trachea midline, no bruits Respiratory/Thorax: Patent airways, CTAB, normal breath sounds with good chest expansion, thorax symmetric Cardiovascular: Regular, rate and rhythm, no murmurs, 2+ equal pulses of the extremities, normal S 1and S 2 Gastrointestinal: Nondistended, soft, non-tender, no rebound tenderness or guarding, no masses palpable, no organomegaly, +BS, no bruits Genitourinary: No Discharge, vesicles or other abnormalities Musculoskeletal: ROM intact, no joint swelling, normal strength Extremities: normal extremities, no cyanosis edema, contusions or wounds, no clubbing Neurological: alert and oriented x3, intact senses, motor, response and reflexes, normal strength Breast: No masses, tenderness, no discharge or discoloration Lymphatic: No significant lymphadenopathy Psychological: Appropriate mood and behavior Skin: Warm and dry, no lesions, no rashes Lab Results: Results CBC date/time WBC HGB HCT PLT Neut 12-Jun-2022 11:44 6.1 13.9 42.6 263 3.98 BMP date/time NA K CL CO2 BUN CREAT 12-Jun-2022 11:44 138 4.3 101 N/A 16 0.84 I have reviewed these laboratory results: Prostate Specific Antigen 12-Jun-2022 11:44:00 ResultValue Prostate Specific Antigen <0.10 Testosterone, Level 12-Jun-2022 11:44:00 ResultValue Testosterone, Level 534 I have reviewed these laboratory results: Urinalysis 12-Jun-2022 11:47:00 ResultValue Color, Urine YELLOW Reference Range: STRAW,YELLOW Appearance, Urine CLEAR Specific [place], Urine 1 (more content not included)... Normal [facility] Clinic Note - Intakeon 06-21 Clinic Note - Intake Patient Visit Infor mation: Visit TypeFollow Up Visit Admission Information: Admission Since Last VisitNo Admission [id number] Vital Signs: Temp (degrees C)36.6 degrees C Temperaturetympanic Heart Rate (beats/min)81 beats per minute Respiration (breaths/min)18 breath per minute BP Systolic (mm Hg)Image has been removed. 157 mmHg BP Diastolic (mm Hg)84 mmHg BP Mean (mm Hg)Image has been removed. 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 Notifiedno Notifiedyes Surgical Corsetier for intimate exam offered to patient: Patient hasdeclined Allergies: morphine: Drug, Itching, Hives/Urticaria, Active Outpatient Medication Profile: * Patient Currently Takes Medications as of 21-Jun-2022 08:29 documented in Structured Notes predniSONE 5 mg oral tablet: Last Dose Taken: , 1 tab(s) orally once a day , Start Date: 12-Jun-2022 abiraterone 250 mg oral tablet: Last Dose Taken: , 4 tab(s) orally once a day , Start Date: 12-Jun-2022 simvastatin 40 mg oral tablet: Last Dose Taken: , 1 tab(s) orally once a day lisinopril 20 mg oral tablet: Last Dose Taken: , 1 tab(s) orally once a day gabapentin 300 mg oral capsule: Last Dose Taken: , 1 cap(s) orally 3 times a day omeprazole 40 mg oral delayed release capsule: Last Dose Taken: , 1 cap(s) orally 2 times a day meloxicam 15 mg oral tablet: Last Dose Taken: , 1 tab(s) orally 2 times a day hydroCHLOROthiazide 25 mg oral tablet: Last Dose Taken: , 1 tab(s) orally once a day aspirin 81 mg oral tablet: Last Dose Taken: , 1 tab(s) orally once a day Stool Softener with Laxative: Last Dose Taken: , 1 tab(s) orally 2 times a day Vitamin D3 50 mcg (2000 intl units) oral tablet: Last Dose Taken: , 1 tab(s) orally once a day Ocuvite oral tablet: Last Dose Taken: , 1 tab(s) orally once a day calcium citrate: Last Dose Taken: , 600 milligram(s) orally once a day Multiple Vitamins oral tablet: Last Dose Taken: , 1 tab(s) orally once a day Notification: NotificationsAnnual Screens Due Dates ____ Advanced Directives: Jun 12, 2023 Family Violence: Jun 12, 2023 Depression (Due every 6 months for ONC only; all others use Annual date): Dec 09, 2022 Substance Use - Alcohol: Jun 12, 2023 Substance Use - Drugs: Jun 12, 2023 Nutrition: Jun 12, 2023 Learning: Jun 12, 2023 Travel History: COVID-19 Screening Completedno exposure or symptoms Travel or ExposureNO travel to International locations in the past 30 days Falls: Have you fallen in the last 6 monthsno Do you have a fear of fallingno Do you feel you need assistanceno Is the patient using an assistive deviceno Not a falls riskimplement environmental risk factors interventions Spiritual/Procedural: Spiritual/cultural/religio us practices important for us to knowno Oncology Nutrition: During the past 2 weeks, weight has(0) not changed Intake past month, compared to normal intake(0) unchanged Problems keeping me from eating past 2 weeks (0) no problem eating In the past month, my activity/functioning rating is(0) normal with no limitations Score 6 or > notify clinician0 Violence: Are you or have you been threatened or abused physically,emotionally or sexually abused by anyoneno Do you feel UNSAFE going back to the place you are livingno Depression: Past 2 wks: [place]aver[place] down, depressed or hopelessno Past 2 wks: [place] little interest/pleasure doing thingsno Any Thoughts of Harming Othersno In the Past Month: Have you wished you were or could go to sleep and not wake upno In the Past Month: Have you had any actual thoughts of killing yourselfno Lifetime: Have you ever done, started to do, or prepared to do anything to end your lifeno Nutrition/Learning: In the past month, was there any day when you or anyone in your family went hungry because you didn't have enough foodno Primary LanguageEnglish Do you, or others today, need extra help due to problems with hearing,speaking, seeing, moving around or learningno Electronic Signatures: Tiffani Mcelroy) (Signed 21-Jun-2022 08:29) Authored: Patient Visit Information, Vital Signs, Surgical Corsetier, Allergies, Outpatient Medication Profile, Notification, Travel History, Falls, Spiritual/Procedural, Oncology Nutrition, Violence, Depression, Nutrition/Learning Last Updated: 21-Jun-2022 08:29 by Tiffani Mcelroy) Normal [facility] DXA BONE DENSITY AXIAL SKELE TON W/IVAon 06-19-2022 DXA BONE DENSITY AXIAL SKELETON W/KANDIS Bone Density and Vertebral Assessment Report Name: LUIS ANGEL AGUILA Age: 67 Sex: Male Ethnicity: White Date of : 1955 Indication: Prostate cancer Referring Provider: RYAN COHN Study: Bone densitometry and vertebral deformity assessment were performed. Exam Date: June 19, 2022 Accession number: [id number] Bone Density: Region BMD T-score Z-score Classification AP Spine(L1-L4) 1.268 1.6 2.5 Normal Femoral Neck (Left) 0.612 -2.3 -1.2 Osteopenia Total Hip (Left) 0.702 -2.2 -1.6 Osteopenia World Health Organization criteria for BMD impression classify patients as: Normal (T-score at or above -1.0), Osteopenia (T-score between -1.0 and -2.5), or Osteoporosis (T-score at or below -2.5). 10-year Fracture Risk(1): Major Osteoporotic Fracture 25% Hip Fracture 11% Reported Risk Factors: [place] (), Neck BMD=0.612, BMI=24.4, previous fracture, parental fracture, smoking (1) FRAX(R) Version 3.08. Fracture probability calculated for an untreated patient. Fracture probability may be lower if the patient has received treatment. Vertebral Deformity Assessment: Exam date 06/19/2022 Vertebral Level Impression T4 Normal T5 Normal T6 Moderate Wedge Deformity T7 Moderate Biconcave Deformity T8 Normal T9 Normal T10 Normal T11 Normal T12 Normal L1 Normal L2 Normal L3 Normal L4 Moderate Crush Deformity A spine fracture indicates 5X risk for subsequent spine fracture and 2X risk for subsequent hip fracture. Impression: The patient has osteopenia as determined by WHO criteria. Based on the results of the patient?s bone density assessment, the risk of future fracture increases approximately two fold for each 1.0 SD decrease in T-score. However, low BMD is not the only risk factor for a future fragility fracture. Other clinical risk factors for osteoporotic fracture should be considered in ascertaining this patient?s future fracture risk including the patient?s age, previous osteoporotic (fragility) fracture, estrogen deficiency/hypogonadal, risk of falling, use of medications implicated in bone loss (glucocorticoids), family history of osteoporotic fracture, diseases and conditions associated with bone loss, low body weight, smoking, high bone turnover, etc. Combining low BMD and other clinical risk factors result in a more precise assessment of future fracture risk. Secondary causes for osteoporosis, such as osteomalacia, other metabolic bone disorders, and diseases and conditions that may contribute to accelerated bone loss may have to be considered depending on the clinical situation. A repeat bone density assessment should be considered in two years.The patient has low bone mass, based on the Left Femoral Neck T-score. The patient has an estimated ten-year risk of hip fracture of 11% and an estimated ten-year risk of major fracture of 25%, based on the WHO FRAX algorithm. The patient has risk factors, including: parental hip fracture, smoking, previous fracture. Patient has a Moderate Wedge Deformity fracture of vertebra T6. Patient has a Moderate Biconcave Deformity fracture of vertebra T7. Patient has a Moderate Crush Deformity fracture of vertebra L4. Discussion: BONE DENSITY IS LOW AT ONE OR MORE SKELETAL SITES. THE PATIENT'S BMD AND CLINICAL RISK FACTORS CONTRIBUTE TO THIS PATIENT'S HIGH RISK OF FRACTURE. This patient's lowest T-score is low at one or more skeletal sites. It meets the World Health Organization's (WHO) criteria for ?low bone mass? (T-score between -1.0 and -2.5). The patient's 10-year risk of hip fracture and 10 year risk of a major osteoporotic fracture as calculated by FRAX exceeds the threshold where pharmacological therapy is recommended by the National Osteoporosis Foundation (NOF). However, all treatment decisions require clinical judgment and consideration of individual patient factors, including patient preferences, comorbidities, previous drug use, risk factors not captured in the FRAX model (e.g., frailty, falls, vitamin D deficiency, increased bone turnover, interval significant decline in bone densi (more content not included)... Normal [facility] Dexa Bone Density Axial Skel etonon 0315-2023 DXA Skeletal system Views for bone density Normal YR-Gdocxkg-W ruby Work Phone: PET W CT SKULL TO THIGH SUBS Qon 06-17-[address] SKULL TO THIGH SUBSQ *FINAL Date of Service: 06/17/2022 09:54 Adm #: [id number] Reading Dr:DAVID LUEVANO Signoff Dr: DAVID LUEVANO PROCEDURE: PET W CT SKULL TO THIGH SUBSQ - CPT 5541 REASON FOR EXAM: MALIGNANT NEOPLASM OF PROSTATE RESULT: Patient Name: LUIS ANGEL AGUILA STUDY: PET W CT SKULL TO THIGH SUBSQ; 06/17/2022 9:54 am INDICATION: MALIGNANT NEOPLASM OF PROSTATE. PET/CT imaging of the torso for prostate cancer staging: Patient was diagnosed with prostate cancer in January 2021. Prostatectomy and radiation treatment, completed on March 2022 COMPARISON: None. ACCESSION NUMBER(S): [id number] ORDERING CLINICIAN: RYAN COHN TECHNIQUE: 62 minutes after intravenous injection of 9.1 mCi of F18 PSMA, PET/CT imaging from skull base to the mid thigh was performed, and CT scan was performed without intravenous injection or oral administration of contrast using low radiation dose technique. FINDINGS: No abnormal foci of radiotracer uptake are identified in the neck, chest, abdomen and pelvis suggest metastatic disease. Specifically there are no hypermetabolic lymph nodes or hypermetabolic osseous activity. Small cyst is noted in the right lobe of the liver. Calcifications involve the aorta. There are few colonic diverticula, without acute diverticulitis. IMPRESSION: No evidence of metastatic disease. Dictation workstation: [id number] This exam is available in DICOM format to non-affiliated healthcare facilities on a secure media free searchable basis with prior patient authorization. The patient exposure is reported to a radiation dose index registry. All CT examinations are performed with one or more of the following dose reduction techniques: Automated Exposure Control, Adjustment of mA and/or KV according to patient size, or use of iterative reconstruction techniques. Original Interpreting Physician: DAVID LUEVANO M.D. Original Transcribed by/Date: JENNA Jun 17 2022 8:23A Original Electronically Signed by/Date: DAVID LUEVANO M.D. Jun 17 2022 11:03A Addendum Interpreting Physician: Addendum Transcribed by/Date: NO ADDENDUM Addendum Electronically Signed by/Date: [facility] AMB - Narrative Note Nursing -NPVon 06-12-2022 AMB - Narrative Note Nursing-NPV Topic and Description: Topic: NPV Description: Patient here with his for new patient visit with Dr. Cohn; seen for Prostate Cancer, formerly seen at [facility]. Labs drawn today CBCd, CMP, PSA, Testosterone, UA and culture. DEXA and PET PSMA to be completed, orders to schedule patient for Lupron injection on 06/21/22. Per MD would like to have scans done prior to Lupron injection. Lexicomp information reviewed for Zytiga and Prednisone with patient and spouse. Referrals to Dr. Aguilar as Dr. Garcia would not see patient as Dr. Cohn as oncologist sees patient. Patient to f/u with radiation downtown per MD No barriers to education noted, pt agreed to plan and verbalized understanding using teach back method. Bridgette Mcguire RN OCN Electronic Signatures: Bridgette Mcguire) (Signed 12-Jun-2022 12:40) Authored: Topic and Description Last Updated: 12-Jun-2022 12:40 by Bridgette Mcguire (BRYSON) Normal [facility] CBC AND DIFFERENTIALon 06-12 % AUTOMATED IMMATURE GRAN 0.3 % Normal 0.0 - 0.9 [facility] Comment on above: Result Comment: Ania ture Granulocyte Count (IG) includes promyelocytes, myelocytes and metamyelocytes but does not include bands. Percent differential counts (%) should be interpreted in the context of the absolute cell counts (cells/L). Performed By: #### C BCDF #### [place] [facility] [address] [facility] [address] [place] [address] Basophils (Bld) [#/Vol] 0.04 10*3/uL Normal 0.00 - 0.10 [facility] Comment on above: Performed By: #### C BCDF #### [facility] [address] [facility] [address] [place] [address] Basophils/100 WBC (Bld) 0.7 % Normal 0.0 - 2.0 [facility] Comment on above: Performed By: #### C BCDF #### [facility] [address] [place] [address] [place] [address] Eosinophils (Bld) [#/Vol] 0.43 10*3/uL Normal 0.00 - 0.70 [facility] Comment on above: Performed By: #### C BCDF #### [facility] [address] [place] [address] [place] [address] Eosinophils/100 WBC (Bld) 7.0 % Normal 0.0 - 6.0 [facility] Comment on above: Performed By: #### C BCDF #### [facility] [address] [place] [address] Erythrocyte distribution width (RBC) [Ratio] 13.2 % Normal 11.5 - 14.5 [facility] Comment on above: Performed By: #### C BCDF #### [facility] [address] [place] [address] Hematocrit (Bld) [Volume fraction] 42.6 % Normal 41.0 - 52.0 [facility] Comment on above: Performed By: #### C BCDF #### [facility] [address] [place] [address] Hemoglobin (Bld) [Mass/Vol] 13.9 g/dL Normal 13.5 - 17.5 [facility] Comment on above: Performed By: #### C BCDF #### [facility] [address] [place] [address] Lymphocytes (Bld) [#/Vol] 1.05 10*3/uL Low 1.20 - 4.80 [facility] Comment on above: Performed By: #### C BCDF #### [facility] [address] [place] [address] Lymphocytes/100 WBC (Bld) 17.1 % Normal 13.0 - 44.0 [facility] Comment on above: Performed By: #### C BCDF #### [facility] [address] [place] [address] MCHC (RBC) [Mass/Vol] 32.6 g/dL Normal 32.0 - 36.0 [facility] Comment on above: Performed By: #### C BCDF #### [facility] [address] [place] [address] MCV (RBC) [Entitic vol] 95 fL Normal 80 - 100 [facility] Comment on above: Performed By: #### C BCDF #### [facility] [address] [place] [address] Monocytes (Bld) [#/Vol] 0.62 10*3/uL Normal 0.10 - 1.00 [facility] Comment on above: Performed By: #### C BCDF #### [facility] [address] [place] [address] Monocytes/100 WBC (Bld) 10.1 % Normal 2.0 - 10.0 [facility] Comment on above: Performed By: #### C BCDF #### [facility] [address] [place] [address] Neutrophils (Bld) [#/Vol] 3.98 10*3/uL Normal 1.20 - 7.70 [facility] Comment on above: Performed By: #### C BCDF #### [facility] [address] [place] [address] Neutrophils/100 WBC (Bld) 64.8 % Normal 40.0 - 80.0 [facility] Comment on above: Performed By: #### C BCDF #### [facility] [address] [place] [address] Platelets (Bld) [#/Vol] 263 10*3/uL Normal 150 - 450 [facility] Comment on above: Performed By: #### C BCDF #### [facility] [address] [place] [address] RBC 4.49 x10E12/L Low 4.50 - 5.90 [facility] Comment on above: Performed By: #### C BCDF #### [facility] [address] [place] [address] WBC (Bld) [#/Vol] 6.1 10*3/uL Normal 4.4 - 11.3 [facility] Comment on above: Performed By: #### C BCDF #### [facility] [address] [place] [address] COMPREHENSIVE PANELon 2022 Albumin [Mass/Vol] 4.0 g/dL Normal 3.5 - 5.0 [facility] Comment on above: Performed By: #### U RINC #### [facility] [address] [place] [address] ALP [Catalytic activity/Vol] 102 U/L Normal 35 - 125 [facility] Comment on above: Performed By: #### U RINC #### [facility] [address] [place] [address] ALT [Catalytic activity/Vol] 8 U/L Normal 5 - 40 [facility] Comment on above: Result Comment: Lashon ents treated with Sulfasalazine may generate falsely decreased results for ALT. Performed By: #### U RINC #### [facility] [address] [place] [address] Anion gap [Moles/Vol] 12 mmol/L Normal 0 - 19 [facility] Comment on above: Performed By: #### U RINC #### [facility] [address] [place] [address] AST [Catalytic activity/Vol] 20 U/L Normal 5 - 40 [facility] Comment on above: Performed By: #### U RINC #### [facility] [address] [place] [address] Bilirubin [Mass/Vol] 0.2 mg/dL Normal 0.1 - 1.2 [facility] Comment on above: Performed By: #### U RINC #### [facility] [address] [place] [address] Calcium [Mass/Vol] 9.6 mg/dL Normal 8.5 - 10.4 [facility] Comment on above: Performed By: #### U RINC #### [facility] [address] [place] [address] Chloride [Moles/Vol] 101 mmol/L Normal 97 - 107 [facility] Comment on above: Performed By: #### U RINC #### [facility] [address] [place] [address] Creatinine [Mass/Vol] 0.84 mg/dL Normal 0.40 - 1.60 [facility] Comment on above: Performed By: #### U RINC #### [facility] [address] [place] [address] eGFR MALE >90 Normal >90 [facility] Comment on above: Result Comment: CALC ULATIONS OF ESTIMATED GFR ARE PERFORMED USING THE 2020 CKD-EPI STUDY REFIT EQUATION WITHOUT THE RACE VARIABLE FOR THE IDMS-TRACEABLE CREATININE METHODS. https://jasn.asnjournals.org/content/early/ASN.6846876 988 Performed By: #### U RINC #### [facility] [address] [place] [address] Glucose [Mass/Vol] 76 mg/dL Normal 65 - 99 [facility] Comment on above: Performed By: #### U RINC #### [facility] [address] [place] [address] HCO3 (Bld) [Moles/Vol] 29 mmol/L Normal 24 - 31 [facility] Comment on above: Performed By: #### U RINC #### [facility] [address] [place] [address] Potassium [Moles/Vol] 4.3 mmol/L Normal 3.4 - 5.1 [facility] Comment on above: Performed By: #### U RINC #### [facility] [address] [place] [address] Protein [Mass/Vol] 7.1 g/dL Normal 5.9 - 7.9 [facility] Comment on above: Performed By: #### U RINC #### [facility] [address] [place] [address] Sodium [Moles/Vol] 138 mmol/L Normal 133 - 145 [facility] Comment on above: Performed By: #### U RINC #### [facility] [address] [place] [address] Urea nitrogen [Mass/Vol] 16 mg/dL Normal 8 - 25 [facility] Comment on above: Performed By: #### U [facility] #### [facility] [address] [place] [id number] Clinic Note - Heme Onc-New V altaf 06-12-2022 Clinic Note - Heme Onc-New Visit Patient Visit Information: Visit Type: New Visit Cancer History: Treatment Synopsis: 67 yo man visiting from [place] (Dr. Luis Escobedo) here for prostate cancer: H/o htn, oa, mild COPD. 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, no distant mets or osseous mets 05/29 back to OR for vesicoureteral anastomosis for leak Treatment: 06/26 Lupron 22.5 mg x 2 - stopped d/t patient preference along with apalutamide - stopped d/t constipation and brain fog 11/07/21 - 12/07/21 EBRT whole pelvis and prostate bed boost - aborted early during third week d/t bowel toxicity (severe diarrhea, c diff neg, nausea and poor by mouth intake) (patients decision) Treatment d/c after 44 [place] instead of 70 Gy Prostate bed and nodes - 1400 cGy 7 Prost bed boost 1000 cGy 5 Whole Pelvis 4600 cGy 23 History of Present Illness: ID Statement: LUIS ANGEL AGUILA is a 67 year old Male Interval History: Pt last seen 04/12/22 with slowly rising PSA 0.12 and testosterone 809 04/05/22 MR pelvis - no explanation for scrotal/perineal pain, small local recurrence along vesicourethral anastamosis - 6 mm on L On gabapentin 300 mg by mouth twice a day for pain, not helping Urinary incont last month and worsening often, wearing diapers. Gaining wt post radiation now Tolerated lupron 04/29 without side effects Review of Systems: System ReviewAll Systems: Negative Allergies and Intolerances: Allergies: morphine: Drug, Itching, Hives/Urticaria, Active Outpatient Medication Profile: * Patient Currently Takes Medications as of 12-Jun-2022 10:56 documented in Structured Notes simvastatin 40 mg oral tablet: Last Dose Taken: , 1 tab(s) orally once a day lisinopril 20 mg oral tablet: Last Dose Taken: , 1 tab(s) orally once a day gabapentin 300 mg oral capsule: Last Dose Taken: , 1 cap(s) orally 3 times a day omeprazole 40 mg oral delayed release capsule: Last Dose Taken: , 1 cap(s) orally 2 times a day meloxicam 15 mg oral tablet: Last Dose Taken: , 1 tab(s) orally 2 times a day hydroCHLOROthiazide 25 mg oral tablet: Last Dose Taken: , 1 tab(s) orally once a day aspirin 81 mg oral tablet: Last Dose Taken: , 1 tab(s) orally once a day Stool Softener with Laxative: Last Dose Taken: , 1 tab(s) orally 2 times a day Vitamin D3 50 mcg (2000 intl units) oral tablet: 1 tab(s) orally once a day Ocuvite oral tablet: Last Dose Taken: , 1 tab(s) orally once a day calcium citrate: Last Dose Taken: , 600 milligram(s) orally once a day Multiple Vitamins oral tablet: Last Dose Taken: , 1 tab(s) orally once a day Family History: No Family History items are recorded in the problem list. Social History: Social Substance History: Smoking Statusunknown if ever smoked Vitals and Measurements: Vitals: Temp: 36.4 HR: 73 RR: 18 BP: 174/83 SPO2%: 97 Measurements: HT(cm): 176.9 WT(kg): 81.2 BSA: 1.99 BMI: 25.9 Second Set of Vitals/Vitals Comment: pt. didn't take BP med today.(1) Physical Exam: Constitutional: Well developed, awake/alert/oriented x3, no distress, alert and cooperative Eyes: PERRL, EOMI, clear sclera ENMT: mucous membranes moist, no apparent injury, no lesions seen Head/Neck: Neck supple, no apparent injury, thyroid without mass or tenderness, No JVD, trachea midline, no bruits Respiratory/Thorax: Patent airways, CTAB, normal breath sounds with good chest expansion, thorax symmetric Cardiovascular: Regular, rate and rhythm, no murmurs, 2+ equal pulses of the extremities, normal S 1and S 2 Gastrointestinal: Nondistended, soft, non-tender, no rebound tenderness or guarding, no masses palpable, no organomegaly, +BS, no bruits Genitourinary: No Discharge, vesicles or other abnormalities Musculoskeletal: ROM intact, no joint swelling, normal strength Extremities: normal extremities, no cyanosis edema, contusions or wounds, no clubbing Neurological: alert and oriented x3, intact senses, motor, response and reflexes, normal strength Breast: No masses, tenderness, no discharge or discoloration Lymphatic: No significant lymphadenopathy Psychological: Appropriate mood and behavior Skin: Warm and dry, no lesions, no rashes Assessment and Plan: Assessment and Plan: Assessment: 67 yo man with h/o htn, mild copd, now s/p prostatectomy 04/28 with gia 3+4 prostate adenocarcinoma Workup revealed positive LN at time of surgery and PSMA PET with pos LN's and no distal mets Pt initiated on lupron/apalutamide but stopped after 2 cycles d/t constipation/brain fog. S/p salvage radiation 12/27 aborted d/t bow (more content not included)... Normal [facility] Clinic Note - Intakeon 06-12 Clinic Note - Intake Patient Visit Infor lloyd: Visit TypeNew Visit, Consult Source of Informationpatient Accompanied byspouse Admission Information: Admission [id number] Vital Signs: Temp (degrees C)36.4 degrees C Temperaturetympanic Heart Rate (beats/min)73 beats per minute Respiration (breaths/min)18 breath per minute BP Systolic (mm Hg)Image has been removed. 174 mmHg BP Diastolic (mm Hg)83 mmHg BP Mean (mm Hg)Image has been removed. 113 mmHg Height in cm176.9 centimeter(s) Height Methodmeasured Heightstanding Weight in kg81.2 kilogram(s) Weightstanding BMI (kg/m2)25.9 kg/M2 BSA (m2)1.99 M2 Second Set of Vitals/Vitals Commentpt. didn't take BP med today. Nursing Verification [id number] Nursing Verification Height in cm176.9 centimeter(s) SpO2 (%)97 % SpO2 Patient Onroom air Pain Screening: Patient States Painyes Current Pain Score (0-10)5 Pain Description/Locationlower back & Rt. hip Allergies: morphine: Drug, Itching, Hives/Urticaria, Active Outpatient Medication Profile: * Outpatient Medication Status not yet specified Notification: NotificationsAnnual Screens Due Dates ____ Advanced Directives: Jun 12, 2023 Family Violence: Jun 12, 2023 Depression (Due every 6 months for ONC only; all others use Annual date): Dec 09, 2022 Substance Use - Alcohol: Jun 12, 2023 Substance Use - Drugs: Jun 12, 2023 Nutrition: Jun 12, 2023 Learning: Jun 12, 2023 Travel History: COVID-19 Screening Completedno exposure or symptoms Travel or ExposureNO travel to International locations in the past 30 days Falls: Have you fallen in the last 6 monthsno Do you have a fear of fallingno Do you feel you need assistanceno Is the patient using an assistive deviceno Not a falls riskimplement environmental risk factors interventions Lowage 65 or older, current pain Spiritual/Procedural: Spiritual/cultural/religio us practices important for us to knowyes If yes, please listChristian Oncology Nutrition: During the past 2 weeks, weight has(0) not changed Intake past month, compared to normal intake(0) unchanged Problems keeping me from eating past 2 weeks (0) no problem eating In the past month, my activity/functioning rating is(3) able to do little activity and spend most of the day in bed or chair Score 6 or > notify clinician3 Adv Dir: Living [facility] POAyes Living Will Formsasked to bring forms next visit Healthcare POA Formsasked to bring forms next visit Violence: Are you or have you been threatened or abused physically,emotionally or sexually abused by anyoneno Do you feel UNSAFE going back to the place you are livingno Depression: Past 2 wks: [place] down, depressed or hopelessno Past 2 wks: [place] little interest/pleasure doing thingsno Any Thoughts of Harming Othersno Substance: How many times in the past year have you hd 5 or more drinks within 24 hours0 How many times in past year have you used recreational or prescription drugs for non-medical reasons0 Nutrition/Learning: In the past month, was there any day when you or anyone in your family went hungry because you didn't have enough foodno Primary LanguageEnglish Electronic Signatures: Beatrice Vasquez (RN) (Signed 12-Jun-2022 15:48) Authored: Vital Signs, Notification Co-Signer: Patient Visit Information, Vital Signs, Allergies, Outpatient Medication Profile, Notification, Travel History, Falls, Spiritual/Procedural, Oncology Nutrition, Adv Dir, Violence, Depression, Substance, Nutrition/Learning Katie Quinteros (RIGOBERTO) (Signed 12-Jun-2022 10:52) Authored: Patient Visit Information, Vital Signs, Allergies, Outpatient Medication Profile, Notification, Travel History, Falls, Spiritual/Procedural, Oncology Nutrition, Adv Dir, Violence, Depression, Substance, Nutrition/Learning Last Updated: 12-Jun-2022 15:48 by Beatrice Vasquez (RN) Normal [facility] Complete Blood Count + Diffe rentialon 06-12-2022 Basophils/100 WBC (Bld) 0.7 % 0.0 - 2.0 HG-Bhbfgjn-G [employer] Work Phone: [phone] Erythrocyte distribution width (RBC) [Ratio] 13.2 % See Below IQ-Psvdqzt-T [employer] Work Phone: Comment on above: Reference Range: 11. 5 - 14.5 Hematocrit (Bld) [Volume fraction] 42.6 % See Below ZS-Zdrhxov-V [employer] Work Phone: Comment on above: Reference Range: 41. 0 - 52.0 Hemoglobin (Bld) [Mass/Vol] 13.9 g/dL See Below TB-Rqxilpk-P [facility] Work Phone: Comment on above: Reference Range: 13. 5 - 17.5 Lymphocytes/100 WBC (Bld) 17.1 % See Below VO-Luxkikf-G [employer] Work Phone: Comment on above: Reference Range: 13. 0 - 44.0 MCHC (RBC) [Mass/Vol] 32.6 g/dL See Below KP-Aryizft-P [facility] Work Phone: Comment on above: Reference Range: 32. 0 - 36.0 MCV (RBC) [Entitic vol] 95 fL 80 - 100 RQ-Udtwopl-U [employer] Work Phone: Monocytes/100 WBC (Bld) 10.1 % 2.0 - 10.0 DT-Etmodsa-I [employer] Work Phone: Neutrophils/100 WBC (Bld) 64.8 % See Below IZ-Kbgaock-G [employer] Work Phone: Comment on above: Reference Range: 40. 0 - 80.0 Platelets (Bld) [#/Vol] 263 10*3/uL 150 - 450 NP-Sokkwvx-A [employer] Work Phone: RBC (Bld) [#/Vol] 4.49 {x10E12/L} below low threshold See Below PE-Pypught-T [employer] Work Phone: Comment on above: Reference Range: 4.5 0 - 5.90 WBC (Bld) [#/Vol] 6.1 10*3/uL 4.4 - 11.3 MP-Uro logy-G [employer] Work Phone: Complete Blood Count + Differential 0.04 {x10E9/L} See Below HZ-Scdkexa-K [employer] Work Phone: Comment on above: Reference Range: 0.0 0 - 0.10 Complete Blood Count + Differential 0.43 {x10E9/L} See Below IQ-Gwuqcer-N [employer] Work Phone: Comment on above: Reference Range: 0.0 0 - 0.70 Complete Blood Count + Differential 0.62 {x10E9/L} See Below PC-Wnxxnhd-T [employer] Work Phone: Comment on above: Reference Range: 0.1 0 - 1.00 Complete Blood Count + Differential 1.05 {x10E9/L} below low threshold See Below FQ-Rwippco-H [employer] Work Phone: Comment on above: Reference Range: 1.2 0 - 4.80 Complete Blood Count + Differential 3.98 {x10E9/L} See Below DW-Pmwfteq-Q [employer] Work Phone: Comment on above: Reference Range: 1.2 0 - 7.70 Complete Blood Count + Differential 7.0 % 0.0 - 6.0 PI-Bsbftup-M [employer] Work Phone: Complete Blood Count + Differential 0.3 % 0.0 - 0.9 YD-Zuthqar-B [facility] Work Phone: Comment on above: Immature Granulocyte Count (IG) includes promyelocytes, myelocytes and metamyelocytes but does not include bands. Percent differential counts (%) should be interpreted in the context of the absolute cell counts (cells/L). Cult, Urineon 06-12-2022 Bacteria identified Cx Nom (U) LB-Tuwqdoi-I [employer] Work Phone: [phone] Laboratory - Chemistry and C hemistry - challengeon 06-12-2022 Albumin BCP dye [Mass/Vol] 4.0 g/dL 3.5 - 5.0 [employer] Work Phone: [phone] ALP [Catalytic activity/Vol] 102 U/L 35 - 125 MI-Jrkuxvi-I [facility] Work Phone: [phone] ALT With P-5'-P [Catalytic activity/Vol] 8 U/L 5 - 40 [employer] Work Phone: [phone] Comment on above: Patients treated wit h Sulfasalazine may generate falsely decreased results for ALT. Anion gap [Moles/Vol] 12 mmol/L 0 - 19 AL-Pfxdswo-V [facility] Work Phone: [phone] AST With P-5'-P [Catalytic activity/Vol] 20 U/L 5 - 40 DD-Vylptbx-Q [facility] Work Phone: [phone] Bilirubin [Mass/Vol] 0.2 mg/dL 0.1 - 1.2 MP-U [facility] Work Phone: [phone] Calcium [Mass/Vol] 9.6 mg/dL 8.5 - 10.4 MP-Uro logy[facility] Work Phone: [phone] Chloride [Moles/Vol] 101 mmol/L 97 - 107 MP-U rologyWoven Orthopedic TechnologiesG [employer] Work Phone: CO2 [Moles/Vol] 29 mmol/L 24 - 31 MP-Urolog y-G [facility] Work Phone: Creatinine [Mass/Vol] 0.84 mg/dL See Below CA-Fwstrpq-E [facility] Work Phone: Comment on above: Reference Range: 0.4 0 - 1.60 Glucose [Mass/Vol] 76 mg/dL 65 - 99 MP-Uro logy-G [facility] Work Phone: Potassium [Moles/Vol] 4.3 mmol/L 3.4 - 5.1 FE-Jmqvwnf-O [facility] Work Phone: Protein [Mass/Vol] 7.1 g/dL 5.9 - 7.9 MP-Uro logy-G [facility] Work Phone: Sodium [Moles/Vol] 138 mmol/L 133 - 145 MP-Uro logy-G [facility] Work Phone: Urea nitrogen [Mass/Vol] 16 mg/dL 8 - 25 JZ-Lrkfhcf-Z [facility] Work Phone: No Panel Informationon 06-12 >90 >90 SG-Dfecljm-L [employer] Work Phone: Comment on above: CALCULATIONS OF [place] MATED GFR ARE PERFORMED USING THE 2020 CKD-EPI STUDY REFIT EQUATION WITHOUT THE RACE VARIABLE FOR THE IDMS-TRACEABLE CREATININE METHODS.https://jasn.asnjournals.org/content/early/ASN .4894341904 PROSTATE SPECIFIC AGon 06-12 Prostate specific Ag [Mass/Vol] ng/mL Normal 0.00 - 4.00 [facility] Comment on above: Result Comment: The FDA requires that the method used for PSA assay be reported to the physician. Values obtained with different assay methods must not be used interchangeably. This test was performed at [facility] using the Siemens [employer] PSA method, which is a sandwich immunoassay using chemiluminescence for quantitation. The assay is approved for measurement of prostate-specific antigen (PSA) in serum and may be used in conjunction with a digital rectal examination in men 50 years and older as an aid in detection of prostate cancer. 0-Budfq-tbulcoyeu inhibitors (e.g. Proscar, Finasteride, Avodart, Dutasteride and Rosita) for the treatment of BPH have been shown to lower PSA levels by an average of 50% after 6 months of treatment. Performed By: #### P SA ####[id number] [place] [address] Prostate Specific Antigenon 06-12-2022 Prostate specific Ag [Mass/Vol] ng/mL See Below WF-Ybpfmab-Q [facility] Work Phone: Comment on above: Reference Range: 0.0 0 - 4.00The FDA requires that the method used for PSA assay be reported to the physician. Values obtained with different assay methods must not be used interchangeably. This test was performed at [facility] using the [employer] PSA method, which is a sandwich immunoassay using chemiluminescence for quantitation. The assay is approvedfor measurement of prostate-specific antigen (PSA) in serum and may be used in conjunction with a digital rectalexamination in men 50 years and older as an aid in detection of prostate cancer. 8-Oxmqs-qzwnylypc inhibitors (e.g. Proscar, Finasteride, Avodart, Dutasteride and Rosita) for the treatment of BPH have been shown to lower PSA levels by an average of 50% after 6 months of treatment. TESTOSTERONEon 06-12-2022 Testosterone [Mass/Vol] 534 ng/dL Normal 240 - 1000 [facility] Comment on above: Result Comment: Dylan rolone decanoate, 11 Beta-hydroxytestosterone, androstenedione, testosterone propionate and 42-wynv-vqzttszbrsyi strongly cross react with this test method. Biotin interference may cause falsely elevated results. Patients taking a Biotin dose of up to 5 mg/day should refrain from taking Biotin for 24 hours before sample collection. Providers may contact their local laboratory for further information. Performed By: #### U RINC #### [facility] [id number] [place] [address] Testosterone, Levelon 2022 Testosterone [Mass/Vol] 534 ng/dL 240 - 1000 RP-Gxhtknu-K [facility] Work Phone: Comment on above: Nandrolone decanoate , 11 Beta-hydroxytestosterone, androstenedione, testosterone propionate and 62-jjov-olztwkaijfkb strongly cross react with this test method. Biotin interference may cause falsely elevated results. Patients taking a Biotin dose of up to 5 mg/day should refrain from taking Biotin for 24 hours before sample collection. Providers may contact their local laboratory for further information. URINALYSISon 06-12-2022 Appearance (U) CLEAR Normal CLEAR [facility] Comment on above: Performed By: #### U A #### [facility] [address] [place] [address] Bilirubin Ql (U) Negative Normal NEGATIVE [facility] Comment on above: Performed By: #### U A #### [facility] [address] [place] [address] Color (U) YELLOW Normal STRAW,YELLO W [facility] Comment on above: Performed By: #### U A #### [facility] [address] [place] [address] Glucose Ql (U) Negative Normal NEGATIVE [facility] Comment on above: Performed By: #### U A #### [facility] [address] [place] [address] Hemoglobin Ql (U) Negative Normal NEGATIVE [facility] Comment on above: Performed By: #### U A #### [facility] [address] [place] [address] Ketones Ql (U) Negative Normal NEGATIVE [facility] Comment on above: Performed By: #### U A #### [facility] [address] [place] [address] Leukocyte esterase Test strip Ql (U) Negative Normal NEGATIVE [facility] Comment on above: Performed By: #### U A #### [facility] [address] [place] [address] Nitrite Ql (U) Negative Normal NEGATIVE [facility] Comment on above: Performed By: #### U A #### [facility] [address] [place] [address] pH (U) 6.0 [pH] Normal 5.0 - 8.0 [facility] Comment on above: Performed By: #### U A #### [facility] [address] [place] [address] Protein Ql (U) Negative Normal NEGATIVE [facility] Comment on above: Performed By: #### U A #### [facility] [address] [place] [address] Specific gravity (U) [Rel density] 1.015 Normal 1.005 - 1.035 [facility] Comment on above: Performed By: #### U A #### [facility] [address] [place] [address] Urobilinogen (U) [Mass/Vol] mg/dL Normal 0.0 - 1.9 [facility] Comment on above: Performed By: #### U A #### [facility] [address] [place] [address] URINE CULTURE,BACTERIALon URINE CULTURE,BACTERIAL PATIENT: LUIS ANGEL AGUILA LOCATION: [facility]#: [id number] : 53 AGE: SEX: M ORDERED BY: RYNA COHN SOURCE: URINE COLLECTED: 06/12/22 11:47 ANTIBIOTICS AT [facility].: RECEIVED : 06/12/22 18:26 SITE: R E S U L T S URINE CULTURE,BACTERIAL FINAL 06/13/22 11:53 NO GROWTH Normal [facility] Comment on above: Performed By: #### U RINC #### [facility] [address] [place] [address] Urinalysison 06-12-2022 Color (U) YELLOW See Below FC-Vrrcybh-S [facility] Work Phone: Comment on above: Reference Range: STR AW,YELLOW Glucose Ql (U) Negative NEGATIVE MP-Urology -G [facility] Work Phone: Ketones Ql (U) Negative NEGATIVE MP-Urology -G [facility] Work Phone: Leukocyte esterase Test strip Ql (U) Negative NEGATIVE SI-Sfzkpvg-H [facility] Work Phone: pH (U) 6.0 [pH] 5.0 - 8.0 AA-Myuhucs-F [facility] Work Phone: Protein (U) [Mass/Vol] Negative NEGATIVE AW-Huqkjjf-K [facility] Work Phone: RBC (U) [#/Vol] Negative NEGATIVE MP-Urolog y-G [facility] Work Phone: Specific gravity (U) [Rel density] 1.015 1 See Below BG-Ypefyus-R [facility] Work Phone: Comment on above: Reference Range: 1.0 05 - 1.035 Urinalysis Negative NEGATIVE HK-Oukelin-G [facility] Work Phone: Urinalysis <2.0 0.0 - 1.9 TJ-Corbkln-H [facility] Work Phone: Urinalysis CLEAR CLEAR KR-Oqplcdu-V [facility] Work Phone: Oncology Nurse Navigator-[facility] - Transfer of careon 06-03-2022 Oncology Nurse Navigator-other - Transfer of care Summary/Preview: Nurse Navigator Note Care Navigation Interaction with patient Visit Type: initial evaluation Location of Visit: telephone Is this your first navigation interaction with this patient yes Continuum of Care: other (Transfer of care) Diagnosis: Malignant/non-malignant: malignant Records: other institution(s) (All records from [facility] in [place].) Assessment Patient Needs and Barriers: access to care and education needs Access to Care: distance (Patient moving to be closer to family.) Interventions Education: appointment information and orientation and expectations Counseling: active listening, education and triage Acuity: 3 Team [employer] 06/03/2022 Patient called to back in December of 2021, he was inquiring about moving to [place] and to establish care. Per patient as well as some records from [facility], patient is s/p prostatectomy in April of 2021, pathology showed [place] 7 disease (3+4), tertiary pattern 5, +SVI and EPE +LVI. 1 right iliac node involved. Post-op PSA was 18. Patient was started on Lupron 22.5mg 06/28/2021, received two doses then stopped per his request. PSMA PET obtained revealing local metastatic disease but no distant mets. Apalutamide 240mg from July to late August of 2021, patient didn't like side effects. Underwent EBRT to pelvis with boost to prostate bed 11/07/2021-12/07/2021, treatment stopped early secondary to bowel toxicity. PSA's as below: 04/02/2022: 0.12Testosterone: 809 03/20/2022: 0.09 Testosterone: 753 01/24/2022: 0.04Testosterone: 403 12/13/2021: 0.03Testosterone: <12 09/20/2021: 0.14Testosterone: <12 08/09/2021: 1.88 Testosterone: <12 06/11/2021: 18.12 05/31/2021: 18.14 Per notes there is a question of a local recurrence just left of the vesicoureteral anastomosis, patient complaining of scrotal discomfort, yet unclear if this is source, they were going to trial him on a low dose of Lupron, 7.5mg to see if symptoms improve. He was to receive this in mid-. Outside information will be forwarded to Dr. Cohn's clinic for his upcoming appointment on 06/12/2022. Pipe Vee RN. Electronic Signatures: Magdalena Vee (BRYSON) (Signed 03-Jun-2022 14:52) Authored: Care Navigation, Assessment, Interventions, Acuity/Communication, Summary/Preview Last Updated: 03-Jun-2022 14:52 by Magdalena Vee) Normal [facility] Vital Signs Date Time Vital Sign Value Performing Clinician Jesus cerna 11-02-2024 13:56-0400 Body temperature 97.7 [degF] Treatment Wstr Work Phone: [facility] 11-02-2024 13:56-0400 Diastolic blood pressure 67 mm[Hg] Treatment Wstr Work Phone: [facility] 11-02-2024 13:56-0400 Heart rate 57 /min Treatment Wstr Work Phone: [facility] 11-02-2024 13:56-0400 SaO2% (BldA) [Mass fraction] 98 % Treatment Wstr Work Phone: [facility] 11-02-2024 13:56-0400 Systolic blood pressure 105 mm[Hg] Treatment Wstr Work Phone: [facility] 10-25-2024 08:12-0400 Body height 176 cm Moinca Masci DO Work Phone: [facility] 10-25-2024 08:12-0400 Body mass index (BMI) [Ratio] 25.11 kg/m2 Monica Masci DO Work Phone: [facility] 10-25-2024 08:12-0400 Body temperature 96.8 [degF] Monica Masci DO Work Phone: [facility] 10-25-2024 08:12-0400 Body weight 77.79 kg Monica Masci DO Work Phone: [facility] 10-25-2024 08:12-0400 Diastolic blood pressure 71 mm[Hg] Monica Masci DO Work Phone: [facility] 10-25-2024 08:12-0400 Heart rate 64 /min Monica Masci DO Work Phone: [facility] 10-25-2024 08:12-0400 SaO2% (BldA) [Mass fraction] 98 % Monica Masci DO Work Phone: [facility] 10-25-2024 08:12-0400 Systolic blood pressure 116 mm[Hg] Monica Masci DO Work Phone: [facility] 10-05-2024 15:00-0400 Body height 174.6 cm Treatment Wstr Work Phone: [facility] 10-05-2024 15:00-0400 Body mass index (BMI) [Ratio] 26.11 kg/m2 Treatment Wstr Work Phone: [facility] 10-05-2024 15:00-0400 Body temperature 97.39 [degF] Treatment Wstr Work Phone: [facility] 10-05-2024 15:00-0400 Body weight 79.6 kg Treatment Wstr Work Phone: [facility] 10-05-2024 15:00-0400 Diastolic blood pressure 66 mm[Hg] Treatment Wstr Work Phone: [facility] 10-05-2024 15:00-0400 Heart rate 56 /min Treatment Wstr Work Phone: [facility] 10-05-2024 15:00-0400 Respiratory rate 16 /min Treatment Wstr Work Phone: [facility] 10-05-2024 15:00-0400 SaO2% (BldA) [Mass fraction] 96 % Treatment Wstr Work Phone: [facility] 10-05-2024 15:00-0400 Systolic blood pressure 104 mm[Hg] Treatment Wstr Work Phone: [facility] 09-24-2024 14:15-0400 Body mass index (BMI) [Ratio] 25.63 kg/m2 Pulm Wstr Work Phone: [facility] 09-24-2024 14:15-0400 Body weight 80.29 kg Pulm Wstr Work Phone: [facility] 09-24-2024 14:15-0400 Heart rate 72 /min Pulm Wstr Work Phone: [facility] 09-24-2024 14:15-0400 SaO2% (BldA) [Mass fraction] 96 % Pulm Wstr Work Phone: [facility] 09-24-2024 14:13-0400 Body mass index (BMI) [Ratio] 25.63 kg/m2 Pulm Wstr Work Phone: [facility] 09-24-2024 14:13-0400 Body weight 80.29 kg Pulm Wstr Work Phone: [facility] 09-24-2024 14:13-0400 Diastolic blood pressure 60 mm[Hg] Aimee العلي MD Work Phone: [facility] 09-24-2024 14:13-0400 Heart rate 69 /min Aimee العلي MD Work Phone: [facility] 09-24-2024 14:13-0400 Respiratory rate 17 /min Aimee العلي MD Work Phone: [facility] 09-24-2024 14:13-0400 SaO2% (BldA) [Mass fraction] 94 % Aimee العلي MD Work Phone: [facility] 09-24-2024 14:13-0400 Systolic blood pressure 120 mm[Hg] Aimee العلي MD Work Phone: [facility] 09-14-2024 16:10-0400 Body mass index (BMI) [Ratio] 25.41 kg/m2 Monica Masci DO Work Phone: [facility] 09-14-2024 16:10-0400 Body temperature 97.11 [degF] Monica Masci DO Work Phone: [facility] 09-14-2024 16:10-0400 Body weight 79.61 kg Monica Masci DO Work Phone: [facility] 09-14-2024 16:10-0400 Diastolic blood pressure 73 mm[Hg] Monica Masci DO Work Phone: [facility] 09-14-2024 16:10-0400 Heart rate 66 /min Monica Masci DO Work Phone: [facility] 09-14-2024 16:10-0400 Respiratory rate 16 /min Monica Masci DO Work Phone: [facility] 09-14-2024 16:10-0400 SaO2% (BldA) [Mass fraction] 98 % Monica Masci DO Work Phone: [facility] 09-14-2024 16:10-0400 Systolic blood pressure 110 mm[Hg] Monica Masci DO Work Phone: [facility] 09-14-2024 13:20-0400 Body mass index (BMI) [Ratio] 25.48 kg/m2 Naima Sinha APRN.CNP Work Phone: [facility] 09-14-2024 13:20-0400 Body weight 79.83 kg Naima Podlogar HEAD START DIRECTOR.TOOL GRINDER SET UP OPERATOR GEAR Work Phone: [facility] 09-14-2024 13:20-0400 Diastolic blood pressure 68 mm[Hg] Naima Podlogar HEAD START DIRECTOR.TOOL GRINDER SET UP OPERATOR GEAR Work Phone: [facility] 09-14-2024 13:20-0400 Heart rate 57 /min Naima Podlogar HEAD START DIRECTOR.TOOL GRINDER SET UP OPERATOR GEAR Work Phone: [facility] 09-14-2024 13:20-0400 Respiratory rate 18 /min Naima Podlogar HEAD START DIRECTOR.TOOL GRINDER SET UP OPERATOR GEAR Work Phone: [facility] 09-14-2024 13:20-0400 SaO2% (BldA) [Mass fraction] 95 % Naima Podlogar HEAD START DIRECTOR.TOOL GRINDER SET UP OPERATOR GEAR Work Phone: [facility] 09-14-2024 13:20-0400 Systolic blood pressure 104 mm[Hg] Naima Podlogar HEAD START DIRECTOR.TOOL GRINDER SET UP OPERATOR GEAR Work Phone: [facility] 08-16-2024 12:17-0400 Diastolic blood pressure 80 mm[Hg] Amadeo Yee MD Work Phone: [facility] 08-16-2024 12:17-0400 Heart rate 57 /min Amadeo Yee MD Work Phone: [facility] 08-16-2024 12:17-0400 Respiratory rate 17 /min Amadeo Yee MD Work Phone: [facility] 08-16-2024 12:17-0400 SaO2% (BldA) [Mass fraction] 99 % Amadeo Yee MD Work Phone: [facility] 08-16-2024 12:17-0400 Systolic blood pressure 140 mm[Hg] Amadeo Yee MD Work Phone: [facility] 07-27-2024 15:27-0400 Body temperature 97.39 [degF] Sobia Oakes MD Work Phone: [facility] 07-27-2024 15:27-0400 Diastolic blood pressure 77 mm[Hg] Sobia Oakes MD Work Phone: [facility] 07-27-2024 15:27-0400 Heart rate 62 /min Sobia Oakes MD Work Phone: [facility] 07-27-2024 15:27-0400 SaO2% (BldA) [Mass fraction] 98 % Sobia Oakes MD Work Phone: [facility] 07-27-2024 15:27-0400 Systolic blood pressure 126 mm[Hg] Sobia Oakes MD Work Phone: [facility] 07-21-2024 14:41-0400 Body mass index (BMI) [Ratio] 25.92 kg/m2 Injection Wstr Work Phone: [facility] 07-21-2024 14:41-0400 Body temperature 98.1 [degF] Injection Wstr Work Phone: [facility] 07-21-2024 14:41-0400 Body weight 81.19 kg Injection Wstr Work Phone: [facility] 07-21-2024 14:41-0400 Diastolic blood pressure 73 mm[Hg] Injection Wstr Work Phone: [facility] 07-21-2024 14:41-0400 Heart rate 71 /min Injection Wstr Work Phone: [facility] 07-21-2024 14:41-0400 Respiratory rate 12 /min Injection Wstr Work Phone: [facility] 07-21-2024 14:41-0400 SaO2% (BldA) [Mass fraction] 96 % Injection Wstr Work Phone: [facility] 07-21-2024 14:41-0400 Systolic blood pressure 116 mm[Hg] Injection Wstr Work Phone: [facility] 07-20-2024 13:49-0400 Body temperature 97.81 [degF] Sobia Oakes MD Work Phone: [facility] 07-20-2024 13:49-0400 Diastolic blood pressure 68 mm[Hg] Sobia Oakes MD Work Phone: [facility] 07-20-2024 13:49-0400 Heart rate 56 /min Sobia Oakes MD Work Phone: [facility] 07-20-2024 13:49-0400 SaO2% (BldA) [Mass fraction] 100 % Sobia Oakes MD Work Phone: [facility] 07-20-2024 13:49-0400 Systolic blood pressure 114 mm[Hg] Sobia Oakes MD Work Phone: [facility] 07-15-2024 14:46-0400 Heart rate 65 /min Alina Prebish HEAD START DIRECTOR.CN P Work Phone: [facility] 07-15-2024 14:46-0400 Respiratory rate 17 /min Alina Prebish HEAD START DIRECTOR.CN P Work Phone: [facility] 07-15-2024 14:46-0400 SaO2% (BldA) [Mass fraction] 99 % Alina Prebish HEAD START DIRECTOR.TOOL GRINDER SET UP OPERATOR GEAR Work Phone: [facility] 07-12-2024 10:14-0400 Body mass index (BMI) [Ratio] 25.19 kg/m2 Sobia Oakes MD Work Phone: [facility] 07-12-2024 10:14-0400 Body temperature 97.5 [degF] Sobia Oakes MD Work Phone: [facility] 07-12-2024 10:14-0400 Body weight 78.93 kg Sobia Oakes MD Work Phone: [facility] 07-12-2024 10:14-0400 Diastolic blood pressure 65 mm[Hg] Sobia Oakes MD Work Phone: [facility] 07-12-2024 10:14-0400 Heart rate 67 /min Sobia Oakes MD Work Phone: [facility] 07-12-2024 10:14-0400 Respiratory rate 14 /min Sobia Oakes MD Work Phone: [facility] 07-12-2024 10:14-0400 SaO2% (BldA) [Mass fraction] 97 % Sobia Oakes MD Work Phone: [facility] 07-12-2024 10:14-0400 Systolic blood pressure 95 mm[Hg] Sobia Oakes MD Work Phone: [facility] 07-12-2024 09:34-0400 Body mass index (BMI) [Ratio] 25.19 kg/m2 Monica Bhartii DO Work Phone: [facility] 07-12-2024 09:34-0400 Body temperature 97.81 [degF] Monica Masci DO Work Phone: [facility] 07-12-2024 09:34-0400 Body weight 78.93 kg Monica Masci DO Work Phone: [facility] 07-12-2024 09:34-0400 Diastolic blood pressure 65 mm[Hg] Monica Masci DO Work Phone: [facility] 07-12-2024 09:34-0400 Heart rate 67 /min Monica Masci DO Work Phone: [facility] 07-12-2024 09:34-0400 SaO2% (BldA) [Mass fraction] 97 % Monica Masci DO Work Phone: [facility] 07-12-2024 09:34-0400 Systolic blood pressure 96 mm[Hg] Monica Bhartii DO Work Phone: [facility] 07-07-2024 16:04-0400 Body height 175.3 cm Yon Quinteros MD Work Phone: [facility] 07-07-2024 16:04-0400 Body mass index (BMI) [Ratio] 26.37 kg/m2 Yon Quinteros MD Work Phone: [facility] 07-07-2024 16:04-0400 Body weight 81.01 kg Yon Quinteros MD Work Phone: [facility] 07-07-2024 16:04-0400 Diastolic blood pressure 70 mm[Hg] Yon Quinteros MD Work Phone: [facility] 07-07-2024 16:04-0400 Heart rate 60 /min Yon Quinteros MD Work Phone: [facility] 07-07-2024 16:04-0400 SaO2% (BldA) [Mass fraction] 97 % Yon Quinteros MD Work Phone: [facility] Comment on above: [facility] 07-07-2024 16:04-0400 Systolic blood pressure 107 mm[Hg] Yon Quinteros MD Work Phone: [facility] 07-05-2024 08:39-0400 Body mass index (BMI) [Ratio] 25.41 kg/m2 Monica Bhartii DO Work Phone: [facility] 07-05-2024 08:39-0400 Body temperature 97.59 [degF] Monica KnowRei DO Work Phone: [facility] 07-05-2024 08:39-0400 Body weight 79.61 kg Monica Masci DO Work Phone: [facility] 07-05-2024 08:39-0400 Diastolic blood pressure 64 mm[Hg] Monica Bhartii DO Work Phone: [facility] 07-05-2024 08:39-0400 Heart rate 66 /min Monica Bhartii DO Work Phone: [facility] 07-05-2024 08:39-0400 SaO2% (BldA) [Mass fraction] 99 % Monica Masci DO Work Phone: [facility] 07-05-2024 08:39-0400 Systolic blood pressure 105 mm[Hg] Monica Masci DO Work Phone: [facility] 06-17-2024 10:11-0400 Heart rate 69 /min Alina Preliorsh HEAD START DIRECTOR.CN P Work Phone: [facility] 06-17-2024 10:11-0400 Respiratory rate 16 /min Alina Prebish HEAD START DIRECTOR.CN P Work Phone: [facility] 06-17-2024 10:11-0400 SaO2% (BldA) [Mass fraction] 100 % Alina Prebish HEAD START DIRECTOR.TOOL GRINDER SET UP OPERATOR GEAR Work Phone: [facility] 05-31-2024 12:13-0500 Diastolic blood pressure 82 mm[Hg] Amadeo Yee MD Work Phone: [facility] 05-31-2024 12:13-0500 Heart rate 76 /min Amadeo Yee MD Work Phone: [facility] 05-31-2024 12:13-0500 Respiratory rate 20 /min Amadeo Yee MD Work Phone: [facility] 05-31-2024 12:13-0500 SaO2% (BldA) [Mass fraction] 97 % Amadeo Yee MD Work Phone: [facility] 05-31-2024 12:13-0500 Systolic blood pressure 129 mm[Hg] Amadeo Yee MD Work Phone: [facility] 05-20-2024 13:58-0500 Heart rate 74 /min Alina Prebish HEAD START DIRECTOR.CN P Work Phone: [facility] 05-20-2024 13:58-0500 Respiratory rate 18 /min Alina Prebish HEAD START DIRECTOR.CN P Work Phone: [facility] 05-20-2024 13:58-0500 SaO2% (BldA) [Mass fraction] 94 % Alina Prebish HEAD START DIRECTOR.TOOL GRINDER SET UP OPERATOR GEAR Work Phone: [facility] 05-13-2024 09:03-0500 Heart rate 68 /min Alina Prebish HEAD START DIRECTOR.CN P Work Phone: [facility] 05-13-2024 09:03-0500 Respiratory rate 18 /min Alina Prebish HEAD START DIRECTOR.CN P Work Phone: [facility] 05-13-2024 09:03-0500 SaO2% (BldA) [Mass fraction] 99 % Alina Prebish HEAD START DIRECTOR.TOOL GRINDER SET UP OPERATOR GEAR Work Phone: [facility] 04-27-2024 15:02-0500 Body mass index (BMI) [Ratio] 25.78 kg/m2 Rodolfo Ariza MD Work Phone: [facility] 04-27-2024 15:02-0500 Body temperature 97.7 [degF] Rodolfo Ariza MD Work Phone: [facility] 04-27-2024 15:02-0500 Body weight 79.3 kg Rodolfo Ariza MD Work Phone: [facility] 04-27-2024 15:02-0500 Heart rate 63 /min Rodolfo Ariza MD Work Phone: [facility] 04-27-2024 15:02-0500 Respiratory rate 18 /min Rodolfo Ariza MD Work Phone: [facility] 04-27-2024 15:02-0500 SaO2% (BldA) [Mass fraction] 97 % Rodolfo Ariza MD Work Phone: [facility] 04-26-2024 09:54-0500 Diastolic blood pressure 95 mm[Hg] Amadeo Yee MD Work Phone: [facility] 04-26-2024 09:54-0500 Heart rate 62 /min Amadeo Yee MD Work Phone: [facility] 04-26-2024 09:54-0500 Respiratory rate 17 /min Amadeo Yee MD Work Phone: [facility] 04-26-2024 09:54-0500 SaO2% (BldA) [Mass fraction] 98 % Amadeo Yee MD Work Phone: [facility] 04-26-2024 09:54-0500 Systolic blood pressure 148 mm[Hg] Amadeo Yee MD Work Phone: [facility] 03-18-2024 08:43-0500 Body mass index (BMI) [Ratio] 26.64 kg/m2 Kavon Nino Work Phone: [facility] 03-18-2024 08:43-0500 Body temperature 96.8 [degF] Kavon Nino Work Phone: [facility] 03-18-2024 08:43-0500 Body weight 83.46 kg Kavon Nino Work Phone: [facility] 03-18-2024 08:43-0500 Diastolic blood pressure 80 mm[Hg] Kavon Nino Work Phone: [facility] 03-18-2024 08:43-0500 Heart rate 63 /min Kavon Nino Work Phone: [facility] 03-18-2024 08:43-0500 Respiratory rate 12 /min Kavon Nino Work Phone: [facility] 03-18-2024 08:43-0500 SaO2% (BldA) [Mass fraction] 98 % Kavon Nino Work Phone: [facility] 03-18-2024 08:43-0500 Systolic blood pressure 131 mm[Hg] Kavon Nino Work Phone: [facility] 03-11-2024 14:46-0500 Heart rate 72 /min Alina Prebish HEAD START DIRECTOR.CN P Work Phone: [facility] 03-11-2024 14:46-0500 Respiratory rate 18 /min Alina Prebish HEAD START DIRECTOR.CN P Work Phone: [facility] 03-11-2024 14:46-0500 SaO2% (BldA) [Mass fraction] 97 % Alina Prebish HEAD START DIRECTOR.TOOL GRINDER SET UP OPERATOR GEAR Work Phone: [facility] 03-01-2024 08:01-0500 Body mass index (BMI) [Ratio] 26.21 kg/m2 Naima Podlogeladia HEAD START DIRECTOR.TOOL GRINDER SET UP OPERATOR GEAR Work Phone: [facility] 03-01-2024 08:01-0500 Body temperature 97.5 [degF] Naima Podlogar HEAD START DIRECTOR.TOOL GRINDER SET UP OPERATOR GEAR Work Phone: [facility] 03-01-2024 08:01-0500 Body weight 82.1 kg Naima Podlogar HEAD START DIRECTOR.TOOL GRINDER SET UP OPERATOR GEAR Work Phone: [facility] 03-01-2024 08:01-0500 Diastolic blood pressure 82 mm[Hg] Naima Podlogar HEAD START DIRECTOR.TOOL GRINDER SET UP OPERATOR GEAR Work Phone: [facility] 03-01-2024 08:01-0500 Heart rate 64 /min Naima Podlogar HEAD START DIRECTOR.TOOL GRINDER SET UP OPERATOR GEAR Work Phone: [facility] 03-01-2024 08:01-0500 Respiratory rate 18 /min Naima Podlogar HEAD START DIRECTOR.TOOL GRINDER SET UP OPERATOR GEAR Work Phone: [facility] 03-01-2024 08:01-0500 SaO2% (BldA) [Mass fraction] 95 % Naima Podlogar HEAD START DIRECTOR.TOOL GRINDER SET UP OPERATOR GEAR Work Phone: [facility] 03-01-2024 08:01-0500 Systolic blood pressure 126 mm[Hg] Naima Podlogar HEAD START DIRECTOR.TOOL GRINDER SET UP OPERATOR GEAR Work Phone: [facility] 2024 13:20-0500 Body height 175.3 cm Heron Willis MD Work Phone: [facility] 2024 13:20-0500 Body mass index (BMI) [Ratio] 25.4 kg/m2 Heron Willis MD Work Phone: [facility] 2024 13:20-0500 Body weight 78.02 kg Heron Willis MD Work Phone: [facility] 2024 13:20-0500 Diastolic blood pressure 80 mm[Hg] Heron Willis MD Work Phone: [facility] 2024 13:20-0500 Heart rate 97 /min Heron Willis MD Work Phone: [facility] 2024 13:20-0500 SaO2% (BldA) [Mass fraction] 93 % Heron Willis MD Work Phone: [facility] 2024 13:20-0500 Systolic blood pressure 126 mm[Hg] Heron Willis MD Work Phone: [facility] 12-16-2023 08:30-0400 Body mass index (BMI) [Ratio] 25.63 kg/m2 Monica Masci DO Work Phone: [facility] 12-16-2023 08:30-0400 Body temperature 97.11 [degF] Monica Masci DO Work Phone: [facility] 12-16-2023 08:30-0400 Body weight 80.29 kg Monica Masci DO Work Phone: [facility] 12-16-2023 08:30-0400 Diastolic blood pressure 74 mm[Hg] Monica Masci DO Work Phone: [facility] 12-16-2023 08:30-0400 Heart rate 73 /min Monica Masci DO Work Phone: [facility] 12-16-2023 08:30-0400 SaO2% (BldA) [Mass fraction] 98 % Monica Masci DO Work Phone: [facility] 12-16-2023 08:30-0400 Systolic blood pressure 135 mm[Hg] Monica Masci DO Work Phone: [facility] 12-04-2023 16:01-0400 Body height 175.3 cm Yon Quinteros MD Work Phone: [facility] 12-04-2023 16:01-0400 Body mass index (BMI) [Ratio] 25.7 kg/m2 Yon Quinteros MD Work Phone: [facility] 12-04-2023 16:01-0400 Body weight 78.93 kg Yon Quinteros MD Work Phone: [facility] 12-04-2023 16:01-0400 Diastolic blood pressure 68 mm[Hg] Yon Quinteros MD Work Phone: [facility] 12-04-2023 16:01-0400 Heart rate 83 /min Yon Quinteros MD Work Phone: [facility] 12-04-2023 16:01-0400 Respiratory rate 18 /min Yon Quinteros MD Work Phone: [facility] 12-04-2023 16:01-0400 SaO2% (BldA) [Mass fraction] 94 % Yon Quinteros MD Work Phone: [facility] 12-04-2023 16:01-0400 Systolic blood pressure 100 mm[Hg] Yon Quinteros MD Work Phone: [facility] 12-03-2023 11:00-0400 Body mass index (BMI) [Ratio] 25.84 kg/m2 Sahil Alcantara MD Work Phone: [facility] 12-03-2023 11:00-0400 Body weight 79.38 kg Sahil Alcantara MD Work Phone: [facility] 12-03-2023 11:00-0400 Diastolic blood pressure 77 mm[Hg] Sahil Alcantara MD Work Phone: [facility] 12-03-2023 11:00-0400 Heart rate 64 /min Sahil Alcantara MD Work Phone: [facility] 12-03-2023 11:00-0400 Systolic blood pressure 122 mm[Hg] Sahil Alcantara MD Work Phone: [facility] 11-10-2023 09:37-0400 Body mass index (BMI) [Ratio] 25.21 kg/m2 Rodolfo Ariza MD Work Phone: [facility] 11-10-2023 09:37-0400 Body temperature 98.2 [degF] Rodolfo Ariza MD Work Phone: [facility] 11-10-2023 09:37-0400 Body weight 77.56 kg Rodolfo Ariza MD Work Phone: [facility] 11-10-2023 09:37-0400 Diastolic blood pressure 81 mm[Hg] Rodolfo Ariza MD Work Phone: [facility] 11-10-2023 09:37-0400 Heart rate 63 /min Rodolfo Ariza MD Work Phone: [facility] 11-10-2023 09:37-0400 Respiratory rate 18 /min Rodolfo Ariza MD Work Phone: [facility] 11-10-2023 09:37-0400 SaO2% (BldA) [Mass fraction] 95 % Rodolfo Ariza MD Work Phone: [facility] 11-10-2023 09:37-0400 Systolic blood pressure 115 mm[Hg] Rodolfo Ariza MD Work Phone: [facility] 11-06-2023 12:47-0400 Body height 175.3 cm Sahil Alcantara MD Work Phone: [facility] 11-06-2023 12:47-0400 Body mass index (BMI) [Ratio] 25.49 kg/m2 Sahil Alcantara MD Work Phone: [facility] 11-06-2023 12:47-0400 Body weight 78.29 kg Sahil Alcantara MD Work Phone: [facility] 11-06-2023 12:47-0400 Diastolic blood pressure 78 mm[Hg] Sahil Alcantara MD Work Phone: [facility] 11-06-2023 12:47-0400 Heart rate 64 /min Sahil Alcantara MD Work Phone: [facility] 11-06-2023 12:47-0400 SaO2% (BldA) [Mass fraction] 95 % Sahil Alcantara MD Work Phone: [facility] 11-06-2023 12:47-0400 Systolic blood pressure 120 mm[Hg] Sahil Alcantara MD Work Phone: [facility] 10-30-2023 08:17-0400 Body height 176.5 cm Gildardo Foster CNP Work Phone: [facility] 10-30-2023 08:17-0400 Body mass index (BMI) [Ratio] 25.04 kg/m2 Gildardo Spieldenner TOOL GRINDER SET UP OPERATOR GEAR Work Phone: [facility] 10-30-2023 08:17-0400 Body temperature 98.4 [degF] Gildardo Spieldenner TOOL GRINDER SET UP OPERATOR GEAR Work Phone: [facility] 10-30-2023 08:17-0400 Body weight 78.02 kg Gildardo Spieldenner TOOL GRINDER SET UP OPERATOR GEAR Work Phone: [facility] 10-30-2023 08:17-0400 Diastolic blood pressure 78 mm[Hg] Gildardo Spieldenner TOOL GRINDER SET UP OPERATOR GEAR Work Phone: [facility] 10-30-2023 08:17-0400 Heart rate 65 /min Gildardo Spieldenner TOOL GRINDER SET UP OPERATOR GEAR Work Phone: [facility] 10-30-2023 08:17-0400 SaO2% (BldA) [Mass fraction] 93 % Gildardo Spieldenner TOOL GRINDER SET UP OPERATOR GEAR Work Phone: [facility] 10-30-2023 08:17-0400 Systolic blood pressure 117 mm[Hg] Gildardo Spieldenner TOOL GRINDER SET UP OPERATOR GEAR Work Phone: [facility] 10-23-2023 10:24-0400 Body height 176.5 cm Frank Quinteros MD Work Phone: [facility] 10-23-2023 10:24-0400 Body mass index (BMI) [Ratio] 24.74 kg/m2 Frank Quinteros MD Work Phone: [facility] 10-23-2023 10:24-0400 Body weight 77.11 kg Frank Quinteros MD Work Phone: [facility] 10-23-2023 10:24-0400 Diastolic blood pressure 87 mm[Hg] Frank Quinteros MD Work Phone: [facility] 10-23-2023 10:24-0400 Heart rate 65 /min Frank Quinteros MD Work Phone: [facility] 10-23-2023 10:24-0400 SaO2% (BldA) [Mass fraction] 93 % Frank Quinteros MD Work Phone: [facility] 10-23-2023 10:24-0400 Systolic blood pressure 135 mm[Hg] Frank Quinteros MD Work Phone: [facility] 09-30-2023 13:03-0400 Body height 175.4 cm Rodolfo Ariza MD Work Phone: [facility] 09-30-2023 13:03-0400 Body mass index (BMI) [Ratio] 24.83 kg/m2 Rodolfo Ariza MD Work Phone: [facility] 09-30-2023 13:03-0400 Body temperature 97 [degF] Rodolfo Ariza MD Work Phone: [facility] 09-30-2023 13:03-0400 Body weight 76.4 kg Rodolfo Ariza MD Work Phone: [facility] 09-30-2023 13:03-0400 Diastolic blood pressure 65 mm[Hg] Rodolfo Ariza MD Work Phone: [facility] 09-30-2023 13:03-0400 Heart rate 55 /min Rodolfo Ariza MD Work Phone: [facility] 09-30-2023 13:03-0400 Respiratory rate 22 /min Rodolfo Ariza MD Work Phone: [facility] 09-30-2023 13:03-0400 SaO2% (BldA) [Mass fraction] 99 % Rodolfo Ariza MD Work Phone: [facility] 09-30-2023 13:03-0400 Systolic blood pressure 116 mm[Hg] Rodolfo Ariza MD Work Phone: [facility] 09-29-2023 11:24-0400 Body height 176.5 cm Frantz Manzo MD Work Phone: [facility] 09-29-2023 11:24-0400 Body mass index (BMI) [Ratio] 24.74 kg/m2 Frantz Manzo MD Work Phone: [facility] 09-29-2023 11:24-0400 Body weight 77.11 kg Frantz Manzo MD Work Phone: [facility] 09-29-2023 11:24-0400 Diastolic blood pressure 67 mm[Hg] Frantz Manzo MD Work Phone: [facility] 09-29-2023 11:24-0400 Heart rate 68 /min Frantz Manzo MD Work Phone: [facility] 09-29-2023 11:24-0400 SaO2% (BldA) [Mass fraction] 96 % Frantz Manzo MD Work Phone: [facility] 09-29-2023 11:24-0400 Systolic blood pressure 109 mm[Hg] Frantz Manzo MD Work Phone: [facility] 09-24-2023 12:04-0400 Body height 176.5 cm Yon Quinteros MD Work Phone: [facility] 09-24-2023 12:04-0400 Body mass index (BMI) [Ratio] 25.12 kg/m2 Yon Quinteros MD Work Phone: [facility] 09-24-2023 12:04-0400 Body weight 78.29 kg Yon Quinteros MD Work Phone: [facility] 09-24-2023 12:04-0400 Diastolic blood pressure 82 mm[Hg] Yon Quinteros MD Work Phone: [facility] 09-24-2023 12:04-0400 Heart rate 71 /min Yon Quinteros MD Work Phone: [facility] 09-24-2023 12:04-0400 SaO2% (BldA) [Mass fraction] 96 % Yon Quinteros MD Work Phone: [facility] Comment on above: [facility] 09-24-2023 12:04-0400 Systolic blood pressure 129 mm[Hg] Yon Quinteros MD Work Phone: [facility] 09-15-2023 09:36-0400 Body mass index (BMI) [Ratio] 24.9 kg/m2 Monica Hayi DO Work Phone: [facility] 09-15-2023 09:36-0400 Body temperature 97.5 [degF] Monica Hayi DO Work Phone: [facility] 09-15-2023 09:36-0400 Body weight 78.02 kg Monica Hayi DO Work Phone: [facility] 09-15-2023 09:36-0400 Diastolic blood pressure 80 mm[Hg] Monica Hayi DO Work Phone: [facility] 09-15-2023 09:36-0400 Heart rate 63 /min Monica Hayi DO Work Phone: [facility] 09-15-2023 09:36-0400 SaO2% (BldA) [Mass fraction] 99 % Monica Hayi DO Work Phone: [facility] 09-15-2023 09:36-0400 Systolic blood pressure 124 mm[Hg] Monica Hayi DO Work Phone: [facility] 08-28-2023 16:06-0400 Body height 176.5 cm Gildardo Spieldenner TOOL GRINDER SET UP OPERATOR GEAR Work Phone: [facility] 08-28-2023 16:06-0400 Body mass index (BMI) [Ratio] 25.25 kg/m2 Gildardo Spieldenner TOOL GRINDER SET UP OPERATOR GEAR Work Phone: [facility] 08-28-2023 16:06-0400 Body temperature 98.29 [degF] Gildardo Spieldenner TOOL GRINDER SET UP OPERATOR GEAR Work Phone: [facility] 08-28-2023 16:06-0400 Body weight 78.7 kg Gildardo Spieldenner TOOL GRINDER SET UP OPERATOR GEAR Work Phone: [facility] 08-28-2023 16:06-0400 Diastolic blood pressure 81 mm[Hg] Gildardo Spieldenner TOOL GRINDER SET UP OPERATOR GEAR Work Phone: [facility] 08-28-2023 16:06-0400 Heart rate 67 /min Gildardo Spieldenner TOOL GRINDER SET UP OPERATOR GEAR Work Phone: [facility] 08-28-2023 16:06-0400 SaO2% (BldA) [Mass fraction] 94 % Gildardo Spieldenner TOOL GRINDER SET UP OPERATOR GEAR Work Phone: [facility] 08-28-2023 16:06-0400 Systolic blood pressure 126 mm[Hg] Gildardo Spieldenner TOOL GRINDER SET UP OPERATOR GEAR Work Phone: [facility] 08-12-2023 09:20-0400 Diastolic blood pressure 99 mm[Hg] Gildardo Spieldenner TOOL GRINDER SET UP OPERATOR GEAR Work Phone: [facility] 08-12-2023 09:20-0400 Systolic blood pressure 187 mm[Hg] Gildardo Spieldenner TOOL GRINDER SET UP OPERATOR GEAR Work Phone: [facility] 08-12-2023 08:35-0400 Body height 176.5 cm Gildardo Spieldenner TOOL GRINDER SET UP OPERATOR GEAR Work Phone: [facility] 08-12-2023 08:35-0400 Body mass index (BMI) [Ratio] 25.25 kg/m2 Gildardo Spieldenner TOOL GRINDER SET UP OPERATOR GEAR Work Phone: [facility] 08-12-2023 08:35-0400 Body temperature 98.4 [degF] Gildardo Spieldenner TOOL GRINDER SET UP OPERATOR GEAR Work Phone: [facility] 08-12-2023 08:35-0400 Body weight 78.7 kg Gildardo Spieldenner TOOL GRINDER SET UP OPERATOR GEAR Work Phone: [facility] 08-12-2023 08:35-0400 Heart rate 59 /min Gildardo Spieldenner TOOL GRINDER SET UP OPERATOR GEAR Work Phone: [facility] 08-12-2023 08:35-0400 SaO2% (BldA) [Mass fraction] 94 % Gildardo Spieldenner TOOL GRINDER SET UP OPERATOR GEAR Work Phone: [facility] 08-06-2023 18:30-0400 Diastolic blood pressure 90 mm[Hg] Naima Sinha HEAD START DIRECTOR.TOOL GRINDER SET UP OPERATOR GEAR Work Phone: [facility] Comment on above: [facility] 08-06-2023 18:30-0400 Heart rate 64 /min Naima Sinha HEAD START DIRECTOR.TOOL GRINDER SET UP OPERATOR GEAR Work Phone: [facility] 08-06-2023 18:30-0400 Systolic blood pressure 169 mm[Hg] Naima Podlogar HEAD START DIRECTOR.TOOL GRINDER SET UP OPERATOR GEAR Work Phone: [facility] Comment on above: [facility] 08-06-2023 17:54-0400 Body mass index (BMI) [Ratio] 25.83 kg/m2 Naima Podlogar HEAD START DIRECTOR.TOOL GRINDER SET UP OPERATOR GEAR Work Phone: [facility] 08-06-2023 17:54-0400 Body weight 80.92 kg Naima Podlogar HEAD START DIRECTOR.TOOL GRINDER SET UP OPERATOR GEAR Work Phone: [facility] 08-06-2023 17:54-0400 Respiratory rate 18 /min Naima Podlogar HEAD START DIRECTOR.TOOL GRINDER SET UP OPERATOR GEAR Work Phone: [facility] 08-06-2023 17:54-0400 SaO2% (BldA) [Mass fraction] 96 % Naima Podlogar HEAD START DIRECTOR.TOOL GRINDER SET UP OPERATOR GEAR Work Phone: [facility] 07-18-2023 08:46-0400 Heart rate 70 /min Alina Prebish HEAD START DIRECTOR.CN P Work Phone: [facility] 07-18-2023 08:46-0400 Respiratory rate 18 /min Alina Prebish HEAD START DIRECTOR.CN P Work Phone: [facility] 07-18-2023 08:46-0400 SaO2% (BldA) [Mass fraction] 97 % Alina Prebish HEAD START DIRECTOR.TOOL GRINDER SET UP OPERATOR GEAR Work Phone: [facility] 07-16-2023 15:33-0400 Diastolic blood pressure 89 mm[Hg] Naima Podlogar HEAD START DIRECTOR.TOOL GRINDER SET UP OPERATOR GEAR Work Phone: [facility] 07-16-2023 15:33-0400 Heart rate 75 /min Naima Podlogar HEAD START DIRECTOR.TOOL GRINDER SET UP OPERATOR GEAR Work Phone: [facility] 07-16-2023 15:33-0400 Systolic blood pressure 158 mm[Hg] Naima Podlogar HEAD START DIRECTOR.TOOL GRINDER SET UP OPERATOR GEAR Work Phone: [facility] 07-16-2023 15:19-0400 Body weight 78.56 kg Naima Podlogar HEAD START DIRECTOR.TOOL GRINDER SET UP OPERATOR GEAR Work Phone: [facility] 07-16-2023 15:19-0400 Respiratory rate 18 /min Naima Podlogar HEAD START DIRECTOR.TOOL GRINDER SET UP OPERATOR GEAR Work Phone: [facility] 07-16-2023 15:19-0400 SaO2% (BldA) [Mass fraction] 94 % Naima Podlogar HEAD START DIRECTOR.TOOL GRINDER SET UP OPERATOR GEAR Work Phone: [facility] 07-16-2023 11:36-0400 Diastolic blood pressure 97 mm[Hg] Hector Ritchie MD Work Phone: [facility] 07-16-2023 11:36-0400 Heart rate 69 /min Hector Ritchie MD Work Phone: [facility] 07-16-2023 11:36-0400 Respiratory rate 15 /min Hector Ritchie MD Work Phone: [facility] 07-16-2023 11:36-0400 SaO2% (BldA) [Mass fraction] 98 % Hector Ritchie MD Work Phone: [facility] 07-16-2023 11:36-0400 Systolic blood pressure 177 mm[Hg] Hector Ritchie MD Work Phone: [facility] 06-16-2023 08:32-0400 Body temperature 97.5 [degF] Monica Masci DO Work Phone: [facility] 06-16-2023 08:32-0400 Body weight 79.83 kg Monica Masci DO Work Phone: [facility] 06-16-2023 08:32-0400 Diastolic blood pressure 94 mm[Hg] Monica Masci DO Work Phone: [facility] 06-16-2023 08:32-0400 Heart rate 80 /min Monica Masci DO Work Phone: [facility] 06-16-2023 08:32-0400 SaO2% (BldA) [Mass fraction] 100 % Monica Masci DO Work Phone: [facility] 06-16-2023 08:32-0400 Systolic blood pressure 166 mm[Hg] Monica Jung DO Work Phone: [facility] 06-10-2023 09:28-0500 Diastolic blood pressure 94 mm[Hg] Naima Podlogar HEAD START DIRECTOR.TOOL GRINDER SET UP OPERATOR GEAR Work Phone: [facility] 06-10-2023 09:28-0500 Heart rate 59 /min Naima Podlogar HEAD START DIRECTOR.TOOL GRINDER SET UP OPERATOR GEAR Work Phone: [facility] 06-10-2023 09:28-0500 Systolic blood pressure 169 mm[Hg] Naima Podlogar HEAD START DIRECTOR.TOOL GRINDER SET UP OPERATOR GEAR Work Phone: [facility] 06-10-2023 08:31-0500 Body weight 80.38 kg Naima Podlogar HEAD START DIRECTOR.TOOL GRINDER SET UP OPERATOR GEAR Work Phone: [facility] 06-10-2023 08:31-0500 Respiratory rate 18 /min Naima Podlogar HEAD START DIRECTOR.TOOL GRINDER SET UP OPERATOR GEAR Work Phone: [facility] 06-10-2023 08:31-0500 SaO2% (BldA) [Mass fraction] 95 % Naima Podlogar HEAD START DIRECTOR.TOOL GRINDER SET UP OPERATOR GEAR Work Phone: [facility] 06-06-2023 11:23-0500 Body weight 81.65 kg Antonia Muñoz HEAD START DIRECTOR.TOOL GRINDER SET UP OPERATOR GEAR Work Phone: [facility] 06-06-2023 11:23-0500 Diastolic blood pressure 88 mm[Hg] Antonia Muñoz HEAD START DIRECTOR.TOOL GRINDER SET UP OPERATOR GEAR Work Phone: [facility] 06-06-2023 11:23-0500 Heart rate 80 /min Antonia Muñoz HEAD START DIRECTOR.TOOL GRINDER SET UP OPERATOR GEAR Work Phone: [facility] 06-06-2023 11:23-0500 Respiratory rate 16 /min Antonia Muñoz HEAD START DIRECTOR.TOOL GRINDER SET UP OPERATOR GEAR Work Phone: [facility] 06-06-2023 11:23-0500 Systolic blood pressure 160 mm[Hg] Antonia Muñoz HEAD START DIRECTOR.TOOL GRINDER SET UP OPERATOR GEAR Work Phone: [facility] 06-04-2023 07:58-0500 Diastolic blood pressure 83 mm[Hg] Hector Ritchie MD Work Phone: [facility] 06-04-2023 07:58-0500 Heart rate 67 /min Hector Ritchie MD Work Phone: [facility] 06-04-2023 07:58-0500 Respiratory rate 16 /min Hector Ritchie MD Work Phone: [facility] 06-04-2023 07:58-0500 SaO2% (BldA) [Mass fraction] 97 % Hector Ritchie MD Work Phone: [facility] 06-04-2023 07:58-0500 Systolic blood pressure 154 mm[Hg] Hector Ritchie MD Work Phone: [facility] 05-21-2023 08:13-0500 Diastolic blood pressure 96 mm[Hg] Hector Ritchie MD Work Phone: [facility] 05-21-2023 08:13-0500 Heart rate 61 /min Hector Ritchie MD Work Phone: [facility] 05-21-2023 08:13-0500 Respiratory rate 15 /min Hector Ritchie MD Work Phone: [facility] 05-21-2023 08:13-0500 SaO2% (BldA) [Mass fraction] 98 % Hector Ritchie MD Work Phone: [facility] 05-21-2023 08:13-0500 Systolic blood pressure 164 mm[Hg] Hector Ritchie MD Work Phone: [facility] 03-17-2023 12:13-0500 Body weight 82.92 kg Naima Podlogar HEAD START DIRECTOR.TOOL GRINDER SET UP OPERATOR GEAR Work Phone: [facility] 03-17-2023 12:13-0500 Diastolic blood pressure 76 mm[Hg] Naima Podlogar HEAD START DIRECTOR.TOOL GRINDER SET UP OPERATOR GEAR Work Phone: [facility] 03-17-2023 12:13-0500 Heart rate 71 /min Naima Podlogar HEAD START DIRECTOR.TOOL GRINDER SET UP OPERATOR GEAR Work Phone: [facility] 03-17-2023 12:13-0500 Respiratory rate 18 /min Naima Podlogar HEAD START DIRECTOR.TOOL GRINDER SET UP OPERATOR GEAR Work Phone: [facility] 03-17-2023 12:13-0500 SaO2% (BldA) [Mass fraction] 95 % Naima Podlogar HEAD START DIRECTOR.TOOL GRINDER SET UP OPERATOR GEAR Work Phone: [facility] 03-17-2023 12:13-0500 Systolic blood pressure 108 mm[Hg] Naima Podlogar HEAD START DIRECTOR.TOOL GRINDER SET UP OPERATOR GEAR Work Phone: [facility] 03-14-2023 10:43-0500 Body temperature 97.2 [degF] Monica Bhartii DO Work Phone: [facility] 03-14-2023 10:43-0500 Body weight 82.56 kg Monica Masci DO Work Phone: [facility] 03-14-2023 10:43-0500 Heart rate 100 /min Monica Masci DO Work Phone: [facility] 02-03-2023 09:31-0400 Body height 176.2 cm Pulm Wstr Work Phone: [facility] 02-03-2023 09:31-0400 Body weight 80.74 kg Pulm Wstr Work Phone: [facility] 01-31-2023 09:04-0400 Diastolic blood pressure 72 mm[Hg] Erik Cota MD Work Phone: [facility] 01-31-2023 09:04-0400 Systolic blood pressure 132 mm[Hg] Erik Cota MD Work Phone: [facility] 01-31-2023 07:53-0400 Body weight 79.74 kg Erik Cota MD Work Phone: [facility] 01-31-2023 07:53-0400 Heart rate 67 /min Erik Cota MD Work Phone: [facility] 01-31-2023 07:53-0400 Respiratory rate 18 /min Erik Cota MD Work Phone: [facility] 01-31-2023 07:53-0400 SaO2% (BldA) [Mass fraction] 94 % Erik Cota MD Work Phone: [facility] 01-06-2023 09:35-0400 Body height 180.5 cm Tatiana Rahman MD Work Phone: [facility] 01-06-2023 09:35-0400 Body temperature 97.3 [degF] Tatiana Rahman MD Work Phone: [facility] 01-06-2023 09:35-0400 Body weight 81.01 kg Tatiana Rahman MD Work Phone: [facility] 01-06-2023 09:35-0400 Diastolic blood pressure 90 mm[Hg] Tatiana Rahman MD Work Phone: [facility] 01-06-2023 09:35-0400 Heart rate 64 /min Tatiana Rahman MD Work Phone: [facility] 01-06-2023 09:35-0400 Respiratory rate 18 /min Tatiana Rahman MD Work Phone: [facility] 01-06-2023 09:35-0400 SaO2% (BldA) [Mass fraction] 100 % Tatiana Rahman MD Work Phone: [facility] 01-06-2023 09:35-0400 Systolic blood pressure 158 mm[Hg] Tatiana Rahman MD Work Phone: [facility] 12-12-2022 11:19-0400 Diastolic blood pressure 88 mm[Hg] Devin Sanchez MD Work Phone: [facility] 12-12-2022 11:19-0400 Heart rate 73 /min Devin Sanchez MD Work Phone: [facility] 12-12-2022 11:19-0400 Respiratory rate 16 /min Devin Sanchez MD Work Phone: [facility] 12-12-2022 11:19-0400 SaO2% (BldA) [Mass fraction] 97 % Devin Sanchez MD Work Phone: [facility] 12-12-2022 11:19-0400 Systolic blood pressure 154 mm[Hg] Devin Sanchez MD Work Phone: [facility] 12-12-2022 09:48-0400 Body temperature 98.01 [degF] Devin Sanchez MD Work Phone: [facility] 11-25-2022 13:34-0400 Body weight 80.74 kg Naima Podlogar HEAD START DIRECTOR.TOOL GRINDER SET UP OPERATOR GEAR Work Phone: [facility] 11-25-2022 13:34-0400 Diastolic blood pressure 80 mm[Hg] Naima Podlogar HEAD START DIRECTOR.TOOL GRINDER SET UP OPERATOR GEAR Work Phone: [facility] 11-25-2022 13:34-0400 Heart rate 77 /min Naima Podlogar HEAD START DIRECTOR.TOOL GRINDER SET UP OPERATOR GEAR Work Phone: [facility] 11-25-2022 13:34-0400 Respiratory rate 16 /min Naima Podlogar HEAD START DIRECTOR.TOOL GRINDER SET UP OPERATOR GEAR Work Phone: [facility] 11-25-2022 13:34-0400 SaO2% (BldA) [Mass fraction] 96 % Naima Podlogar HEAD START DIRECTOR.TOOL GRINDER SET UP OPERATOR GEAR Work Phone: [facility] 11-25-2022 13:34-0400 Systolic blood pressure 132 mm[Hg] Naima Podlogar HEAD START DIRECTOR.TOOL GRINDER SET UP OPERATOR GEAR Work Phone: [facility] 11-18-2022 13:25-0400 Body height 180.34 cm Referring Provider Unknown SC-Jnavwfc-Djbkx [facility] Work Phone: 11-18-2022 13:25-0400 Body mass index (BMI) [Ratio] 24.13 kg/m2 Referring Provider Unknown ZA-Vdvmxgj-Wjbkw [facility] Work Phone: 11-18-2022 13:25-0400 Body surface area Derived from formula 1.98 m2 Referring Provider Unknown ZO-Mcnvadd-Ebbds [place] Work Phone: 11-18-2022 13:25-0400 Body weight 78.47 kg Referring Provider Unknown LY-Mmtddnd-Deocj [place] Work Phone: 11-14-2022 08:14-0400 Body height 180.1 cm Juana pearce MD Work Phone: [facility] 11-14-2022 08:14-0400 Body mass index (BMI) [Ratio] 24.39 kg/m2 Juana Scales MD Work Phone: [facility] 11-14-2022 08:14-040 Body weight 79.1 kg Juana pearce MD Work Phone: [facility] 10-30-2022 08:18-0400 Body height 179.07 cm Referring Provider Unknown LC-Hickrpp-GKT 3600 Work Phone: 10-30-2022 08:18-0400 Body mass index (BMI) [Ratio] 24.76 kg/m2 Referring Provider Unknown YP-Yiueuzu-TEC 3600 Work Phone: 10-30-2022 08:18-0400 Body surface area Derived from formula 1.98 m2 Referring Provider Unknown JK-Fnpkysa-REA 3600 Work Phone: 10-30-2022 08:18-0400 Body temperature 97.5 [degF] Referring Provider Unknown AH-Hfzofmp-SVI 3600 Work Phone: 10-30-2022 08:18-0400 Body weight 79.38 kg Referring Provider Unknown NA-Nhsnmei-JGK 3600 Work Phone: 10-01-2022 10:02-0400 Body height 180.34 cm Referring Provider Unknown CR-Fmrgwpt-Bpmcy [facility] Work Phone: 10-01-2022 10:02-0400 Body mass index (BMI) [Ratio] 24.56 kg/m2 Referring Provider Unknown JL-Hwseckh-Qsiys [place] Work Phone: 10-01-2022 10:02-0400 Body surface area Derived from formula 2 m2 Referring Provider Unknown XF-Orwdprf-Xqyey [facility] Work Phone: 10-01-2022 10:02-0400 Body temperature 97.3 [degF] Referring Provider Unknown RJ-Wtniydk-Xctmy [facility] Work Phone: 10-01-2022 10:02-0400 Body weight 79.89 kg Referring Provider Unknown AP-Wvabfbr-Vlqyb [place] Work Phone: 10-01-2022 10:02-0400 Diastolic blood pressure 83 mm[Hg] Referring Provider Unknown CJ-Vwrzmun-Efpoa [place] Work Phone: 10-01-2022 10:02-0400 Heart rate 57 /min Referring Provider Unknown UN-Myvewiq-Qmwjk [facility] Work Phone: 10-01-2022 10:02-0400 Systolic blood pressure 150 mm[Hg] Referring Provider Unknown FQ-Taglrmz-Jvimv [facility] Work Phone: 09-11-2022 09:25-0400 Body height 180.34 cm Referring Provider Unknown GK-Toxapmblwfup-M isman 200 Work Phone: 09-11-2022 09:25-0400 Body mass index (BMI) [Ratio] 24.27 kg/m2 Referring Provider Unknown EP-Kchiqapynhyj-G isman 200 Work Phone: 09-11-2022 09:25-0400 Body surface area Derived from formula 1.99 m2 Referring Provider Unknown YL-Vroynyxqbdnt-S isman 200 Work Phone: 09-11-2022 09:25-0400 Body temperature 97.9 [degF] Referring Provider Unknown FX-Uljyzxmzkchk-C isman 200 Work Phone: 09-11-2022 09:25-0400 Body weight 78.93 kg Referring Provider Unknown II-Cmzpbpjuzkku-O isman 200 Work Phone: 09-11-2022 09:25-0400 Diastolic blood pressure 90 mm[Hg] Referring Provider Unknown EG-Sdqqtdtgvoop-U isman 200 Work Phone: 09-11-2022 09:25-0400 Heart rate 61 /min Referring Provider Unknown JC-Ianisnwtpvxe-D isman 200 Work Phone: 09-11-2022 09:25-0400 Systolic blood pressure 162 mm[Hg] Referring Provider Unknown XR-Xttqjyaykhfc-C isman 200 Work Phone: Encounters Encounter Date Encounter Type Care Provider Facility Start: 11-02-2024 End: 11-02-2024 ambulatory Treatment Rm 15 Rick [facility] Work Phone: Hematology/Oncology Comment on above: Malignant neoplasm o f prostate metastatic to bone (HCC) (Primary Dx) Start: 10-29-2024 End: 10-29-2024 Specialty Pharmacy [facility] Comment on above: SPP Oral Oncology/he matology - Medication Refill (Xtandi 80mg) Start: 10-25-2024 End: 10-25-2024 Office outpatient visit 25 minutes Monica Jung DO Work Phone: Hematology/Oncology Comment on above: Malignant neoplasm o f prostate metastatic to bone (HCC) (Primary Dx); Left hip pain; 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) Start: 10-25-2024 End: 10-25-2024 ambulatory Injection [facility] Work Phone: Hematology/Oncology Comment on above: Malignant neoplasm o f prostate metastatic to bone (HCC) (Primary Dx); 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) Start: 10-19-2024 End: 10-19-2024 Patient encounter procedure Adiel Elam OD Work Phone: Ophthalmology Comment on above: Nuclear sclerosis of both eyes (Primary Dx); Hypermetropia, bilateral; Presbyopia Start: 10-19-2024 End: 10-19-2024 ambulatory ERIK COTA Facility:[facility] Start: 10-05-2024 End: 10-05-2024 ambulatory Treatment Rm 14 Rick [facility] Work Phone: Hematology/Oncology Comment on above: Malignant neoplasm o f prostate metastatic to bone (HCC) (Primary Dx) Start: 10-05-2024 End: 10-05-2024 ambulatory ERIK COTA Facility:[facility] Start: 10-04-2024 End: 10-04-2024 Specialty Pharmacy C[facility] Comment on above: SPP Oral Oncology/he matology - Medication Refill (xtandi) Malignant neoplasm o f prostate metastatic to bone (HCC) (Primary Dx) Start: 09-27-2024 End: 09-27-2024 Subsequent hospital visit by physician Xr [facility] [place] Work Phone: Radiology Comment on above: Malignant neoplasm o f prostate metastatic to bone (HCC) [C61, C79.51] Start: 09-27-2024 End: 09-27-2024 ambulatory Monica Jung DO Work Phone: Hematology/Oncology Comment on above: Hip Start: 09-27-2024 End: 09-28-2024 Telephone encounter Mnoica Jung DO Work Phone: Hematology/Oncology Comment on above: Results Dental Clearance - C hemotherapy Start: 09-24-2024 End: 09-24-2024 Patient encounter procedure Pulm Lab [facility] Work Phone: PUL LAB [facility] [employer] Comment on above: Asthma-COPD overlap syndrome (HCC) (Primary Dx); Lung nodules; Prostate cancer metastatic to bone (HCC); Cigarette smoker Start: 09-24-2024 End: 09-24-2024 ambulatory Pulm Lab [facility] Work Phone: PULM LAB [facility] [employer] Comment on above: Spirometry Start: 09-21-2024 End: 09-21-2024 Telephone encounter Sebastián Garcia RN Work Phone: Hematology/Oncology Comment on above: Care Coordination (O RAL ANTI-CANCER AGENTS FOLLOW-UP PHONE CALL) Start: 09-16-2024 End: 09-16-2024 ambulatory Monica Jung DO Work Phone: Hematology/Oncology Comment on above: MRI Start: 09-15-2024 End: 09-17-2024 ambulatory Monica Jung DO Work Phone: Hematology/Oncology Comment on above: MRI results Start: 09-15-2024 End: 11-15-2024 Follow-up encounter Ashlie Osborn LPN [facility] [place] Start: 09-14-2024 End: 09-14-2024 Subsequent hospital visit by physician Mri Radio [facility] (I-Stat/1.5t) Work Phone: Radiology Comment on above: Malignant neoplasm o f prostate metastatic to bone (HCC) [C61, C79.51] Start: 09-14-2024 End: 09-14-2024 Patient encounter procedure Naima Sinha APRN.TOOL GRINDER SET UP OPERATOR GEAR Work Phone: [facility] [place] Comment on above: Essential (primary) hypertension (Primary Dx); Mixed hyperlipidemia; Chronic obstructive pulmonary disease, unspecified COPD type (HCC); Nicotine dependence, cigarettes, uncomplicated; 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); S/P prostatectomy Start: 09-14-2024 End: 09-14-2024 ambulatory Monica Jung DO Work Phone: Hematology/Oncology Comment on above: Malignant neoplasm o f prostate metastatic to bone (HCC) (Primary Dx); Bilateral hip pain; 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); Spinal stenosis of lumbar region with neurogenic claudication Start: 09-10-2024 End: 09-13-2024 Telephone encounter Frank rGace RN Hematology/Oncology Comment on above: Undercollar Baster - O ther (Oral Anti-Cancer Agents Education) Start: 09-07-2024 End: 09-08-2024 ambulatory Monica Jung DO Work Phone: Hematology/Oncology Comment on above: Increase hip pain Start: 09-06-2024 End: 09-06-2024 ambulatory Naima Sinha APRN.TOOL GRINDER SET UP OPERATOR GEAR Work Phone: [facility] [place] Comment on above: Meds Refill Request Start: 09-03-2024 End: 09-03-2024 ambulatory ERIK COTA Facility:[facility] Start: 08-31-2024 End: 09-01-2024 ambulatory Monica Jung DO Work Phone: Hematology/Oncology Comment on above: MRI Start: 08-27-2024 End: 08-27-2024 ambulatory ERIK COTA Facility:[facility] Start: 08-27-2024 End: 08-27-2024 ambulatory MONICA JUNG Facility:[facility] Start: 08-26-2024 End: 08-26-2024 ambulatory ERIK COTA Facility:[facility] Start: 08-23-2024 ambulatory ERIK COTA F acility:[facility] Start: 08-23-2024 End: 08-23-2024 Subsequent hospital visit by physician [facility] 2 Work Phone: Radiology Comment on above: YADIEL (acute kidney in jury) [N17.9] Start: 08-19-2024 End: 08-19-2024 ambulatory ERIK COTA Facility:[facility] Start: 08-19-2024 End: 08-20-2024 Telephone encounter Monica Jung DO Work Phone: Hematology/Oncology Comment on above: Results Start: 08-16-2024 End: 08-16-2024 Patient encounter procedure Amadeo Yee MD Work Phone: [facility] Start: 08-16-2024 End: 08-16-2024 ambulatory Amadeo Yee MD Work Phone: [facility] Comment on above: Procedure (ilesi); B ack Pain (Lower - bilateral - right is worse) Start: 08-04-2024 End: 08-05-2024 ambulatory Monica Jung DO Work Phone: Hematology/Oncology Comment on above: Don t know about thi s Start: 07-29-2024 End: 07-29-2024 ambulatory ERIK COTA Facility:[facility] Start: 07-28-2024 End: 07-28-2024 ambulatory ERIK COTA Facility:[facility] Start: 07-27-2024 End: 07-27-2024 Patient encounter procedure Sobia Oakes MD Work Phone: Radiation Oncology Comment on above: Prostate cancer meta static to bone (HCC) (Primary Dx) Start: 07-27-2024 End: 07-27-2024 ambulatory ERIK COTA Facility:[facility] Start: 07-26-2024 End: 07-26-2024 ambulatory ERIK COTA Facility:[facility] Start: 07-26-2024 End: 07-26-2024 Telephone encounter Amadeo Yee MD Work Phone: [facility] Start: 07-26-2024 End: 07-26-2024 Unlisted evaluation and management service Amadeo Yee MD Work Phone: [facility] Comment on above: Opened In Error Start: 07-23-2024 End: 07-23-2024 ambulatory ERIK COTA Facility:[facility] Start: 07-22-2024 End: 07-22-2024 ambulatory TOM Ankit COTA Facility:[facility] Start: 07-21-2024 End: 07-21-2024 ambulatory Injection Rick [facility] Work Phone: Hematology/Oncology Comment on above: Malignant neoplasm o f prostate metastatic to bone (HCC) (Primary Dx); 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) Start: 07-20-2024 End: 07-20-2024 ambulatory ERIK COTA Facility:[facility] Start: 07-20-2024 End: 07-20-2024 Patient encounter procedure Sobia Oakes MD Work Phone: Radiation Oncology Comment on above: Prostate cancer meta static to bone (HCC) (Primary Dx) Start: 07-15-2024 End: 07-15-2024 ambulatory ALINA PREBISH Facility:[facility] Start: 07-15-2024 End: 07-17-2024 Patient encounter procedure Alina Prebish HEAD START DIRECTOR.TOOL GRINDER SET UP OPERATOR GEAR Work Phone: [facility] Comment on above: Spinal stenosis of l umbar region with neurogenic claudication (Primary Dx); Lumbar radiculopathy; Lumbar spondylosis; Pain in left hip Start: 07-15-2024 End: 07-17-2024 Radiation Oncology Note Sobia Oakes MD Work Phone: Radiation Oncology Comment on above: Treatment Planning Simulation Note Start: 07-15-2024 End: 07-15-2024 ambulatory ERIK COTA Facility:[facility] Start: 07-12-2024 End: 07-12-2024 Patient encounter procedure Sobia Oakes MD Work Phone: Radiation Oncology Comment on above: Rising PSA level; Prostate cancer metastatic to bone (HCC) Start: 07-12-2024 End: 07-12-2024 ambulatory Sobia Oakes MD Work Phone: Radiation Oncology Comment on above: Radiation tx Start: 07-12-2024 End: 07-12-2024 Office outpatient visit 25 minutes Monica uJng DO Work Phone: Hematology/Oncology Comment on above: Prostate cancer meta static to bone (HCC) (Primary Dx) Start: 07-08-2024 End: 07-08-2024 ambulatory Kavon Nino Work Phone: Hematology/Oncology Comment on above: Pet scan results Start: 07-07-2024 End: 07-07-2024 Office outpatient visit 15 minutes Yon Quinteros MD Work Phone: [facility] Pulmonology Comment on above: Chronic obstructive pulmonary disease, unspecified COPD type (HCC) (Primary Dx); Lung nodule; Cigarette smoker Start: 07-07-2024 End: 07-07-2024 Patient encounter procedure Estrellita Sheldon RT(R) Nuclear Medicine Start: 07-07-2024 End: 07-07-2024 ambulatory Estrellita Sheldon RT(R) Nuclear Medicine Comment on above: Radiology [place] Start: 07-07-2024 End: 07-07-2024 Subsequent hospital visit by physician Pet Injection [facility] Work Phone: Nuclear Medicine Comment on above: Rising PSA level [R9 7.20] Start: 07-05-2024 End: 07-05-2024 ambulatory MONICA JUNG Facility:[facility] Start: 07-05-2024 End: 07-05-2024 Office outpatient visit 25 minutes Monica A Masci DO Work Phone: Hematology/Oncology Comment on above: 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) (Primary Dx); Continuous dependence on cigarette smoking Start: 07-05-2024 End: 07-05-2024 ambulatory ERIK COTA Facility:[facility] Start: 06-18-2024 End: 06-18-2024 Refill Naima Sinha HEAD START DIRECTOR.TOOL GRINDER SET UP OPERATOR GEAR Work Phone: [facility] [place] Comment on above: Refill Request Start: 06-17-2024 End: 06-17-2024 Telephone encounter Alina Preliorsh HEAD START DIRECTOR.TOOL GRINDER SET UP OPERATOR GEAR Work Phone: [facility] Comment on above: Injections Start: 06-17-2024 End: 06-17-2024 Patient encounter procedure Alina Prebish HEAD START DIRECTOR.TOOL GRINDER SET UP OPERATOR GEAR Work Phone: [facility] Comment on above: Spinal stenosis of l umbar region with neurogenic claudication (Primary Dx); Lumbar radiculopathy; Trochanteric bursitis of left hip Start: 06-17-2024 End: 06-17-2024 ambulatory ALINA PREBISH Facility:[facility] Start: 06-04-2024 End: 06-04-2024 Telephone encounter Alina Braydon HEAD START DIRECTOR.TOOL GRINDER SET UP OPERATOR GEAR Work Phone: [facility] Start: 05-31-2024 End: 05-31-2024 Patient encounter procedure Amadeo Yee MD Work Phone: [facility] [place] Start: 05-31-2024 End: 05-31-2024 ambulatory Amadeo Yee MD Work Phone: [facility] [place] Comment on above: Procedure (L GTB inj ection) Start: 05-24-2024 End: 05-24-2024 Orders Only Yon Quinteros MD Work Phone: [facility] Pulmonary Comment on above: Lung nodule (Primary Dx) Start: 05-20-2024 End: 05-20-2024 Telephone encounter Alina Prebish HEAD START DIRECTOR.TOOL GRINDER SET UP OPERATOR GEAR Work Phone: [facility] Comment on above: Injections Start: 05-20-2024 End: 05-20-2024 ambulatory ALINA PREBISH Facility:[facility] Start: 05-20-2024 End: 05-20-2024 Patient encounter procedure Alina Prebish HEAD START DIRECTOR.TOOL GRINDER SET UP OPERATOR GEAR Work Phone: [facility] Comment on above: Trochanteric bursiti s of left hip (Primary Dx); Lumbar radiculopathy; Lumbar spondylosis; Spinal stenosis of lumbar region with neurogenic claudication; Pain in left hip Start: 05-17-2024 End: 05-17-2024 Telephone encounter Alina Prebish HEAD START DIRECTOR.JAMES Work Phone: [facility] [place] Comment on above: Appointment Start: 05-17-2024 End: 05-17-2024 ambulatory [facility] Start: 05-13-2024 End: 05-13-2024 Subsequent hospital visit by physician Twan [facility] [place] Work Phone: Radiology Comment on above: Pain in left hip [M2 5.552] Start: 05-13-2024 End: 05-13-2024 Patient encounter procedure Alina Prebish HEAD START DIRECTOR.TOOL GRINDER SET UP OPERATOR GEAR Work Phone: [facility] Comment on above: Spinal stenosis of l umbar region with neurogenic claudication (Primary Dx); Lumbar radiculopathy; Lumbar spondylosis; Pain in left hip; Primary osteoarthritis of both hips Start: 05-13-2024 End: 05-13-2024 ambulatory ALINA PREBISH Facility:[facility] Start: 04-27-2024 End: 04-27-2024 Office outpatient visit 25 minutes Rodolfo Ariza MD Work Phone: [facility] Comment on above: Prostate cancer (Mul ti) Start: 04-27-2024 End: 04-27-2024 ambulatory RODOLFO ARIZA [facility] Start: 04-27-2024 End: 04-27-2024 Subsequent hospital visit by physician [facility] [address] [facility] Comment on above: Arrived Prostate cancer (Mul ti) Start: 04-27-2024 End: 04-27-2024 ambulatory RODOLFO [facility] Start: 04-26-2024 End: 04-26-2024 Patient encounter procedure Amadeo Yee MD Work Phone: [facility] Start: 04-26-2024 End: 04-26-2024 ambulatory Amadeo Yee MD Work Phone: [facility] Comment on above: Procedure (ilesi); B ack Pain (Lower - bilateral ) Start: 03-18-2024 End: 03-18-2024 ambulatory Kavon Nino Work Phone: Hematology/Oncology Comment on above: 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) (Primary Dx); Rising PSA level Start: 03-18-2024 End: 03-18-2024 Patient encounter procedure Kavon Nino Work Phone: Hematology/Oncology Start: 03-15-2024 End: 03-15-2024 ambulatory ERIK COTA Facility:[facility] Start: 03-12-2024 End: 03-12-2024 Telephone encounter Kavon Nino Work Phone: Hematology/Oncology Comment on above: Appointment Start: 03-11-2024 End: 03-11-2024 Patient encounter procedure Alina Braydon HEAD START DIRECTOR.TOOL GRINDER SET UP OPERATOR GEAR Work Phone: [facility] Comment on above: Spinal stenosis of l umbar region with neurogenic claudication (Primary Dx); Lumbar spondylosis; Primary osteoarthritis of both hips; Chronic bilateral low back pain, unspecified whether sciatica present Start: 03-11-2024 End: 03-11-2024 ambulatory ALINA PREBISH Facility:[facility] Start: 03-11-2024 End: 03-11-2024 Telephone encounter Alina Pregabby HEAD START DIRECTOR.TOOL GRINDER SET UP OPERATOR GEAR Work Phone: [facility] Comment on above: Injections Start: 03-08-2024 End: 03-08-2024 Office outpatient visit 25 minutes Rodolfo Ariza MD Work Phone: [facility] Comment on above: Prostate cancer (Mul ti) (Primary Dx) Start: 03-08-2024 End: 03-08-2024 ambulatory RODOLFO ARIZA [facility] Start: 03-06-2024 End: 03-09-2024 E-mail encounter from caregiver Alina Bryson EMELY.TOOL GRINDER SET UP OPERATOR GEAR Work Phone: [facility] Start: 03-06-2024 End: 03-09-2024 Patient encounter procedure Alina Bryson HEAD START DIRECTOR.TOOL GRINDER SET UP OPERATOR GEAR Work Phone: [facility] Comment on above: Appointment Request Start: 03-05-2024 End: 03-05-2024 ambulatory NO ASSIGNED PCP GENERIC PROVIDER [facility] Start: 03-01-2024 End: 03-01-2024 Subsequent hospital visit by physician Xr [facility] [place] Crowe Work Phone: Radiology Comment on above: Acute cough [R05.1] Start: 03-01-2024 End: 03-01-2024 Telephone encounter Erik Cota MD Work Phone: [facility] [place] Start: 03-01-2024 End: 03-01-2024 ambulatory Naima Sinha APRN.TOOL GRINDER SET UP OPERATOR GEAR Work Phone: [facility] [place] Start: 03-01-2024 End: 03-01-2024 Patient encounter procedure Naima Sinha APRN.TOOL GRINDER SET UP OPERATOR GEAR Work Phone: [facility] [place] Comment on above: Acute cough (Primary Dx); COPD with exacerbation (HCC) Refill Request Refill Start: 02-23-2024 End: 02-23-2024 Orders Only Yon Quinteros MD Work Phone: [facility] Comment on above: Chest pain, unspecif ied type (Primary Dx) Atypical chest pain (Primary Dx) Start: 2024 End: 2024 Office outpatient new 45 minutes Heron Willis MD Work Phone: [facility] Comment on above: Aneurysm of ascendin g aorta 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) (Primary Dx); Aortic ectasia, thoracic (HCC) Start: 2024 End: [address] [facility] Ambulatory Start: 02-08-2024 End: 02-08-2024 Orders Only Yon Quinteros MD Work Phone: [facility] Comment on above: Aortic ectasia, thor acic (HCC) (Primary Dx) Start: 01-12-2024 End: 01-12-2024 ambulatory YON QUINTEROS [facility] Start: 12-16-2023 End: 12-16-2023 ambulatory Monica Jung DO Work Phone: Hematology/Oncology Comment on above: 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) (Primary Dx) Start: 12-16-2023 End: 12-16-2023 Patient encounter procedure Monica Jung DO Work Phone: Hematology/Oncology Start: 12-12-2023 End: 12-12-2023 ambulatory ERIK COTA Facility:[facility] Start: 12-04-2023 End: 12-04-2023 Office outpatient visit 15 minutes Yon Quinteros MD Work Phone: [facility] Comment on above: Lung nodule (Primary Dx); Chronic obstructive pulmonary disease, unspecified COPD type (HCC); Cigarette smoker Start: 12-04-2023 End: 12-04-2023 ambulatory GILDARDO TANYA [facility] Start: 12-03-2023 End: 12-03-2023 Office outpatient visit 10 minutes Sahil Alcantara MD Work Phone: [facility] Comment on above: 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 Ambulatory Start: 12-01-2023 End: 12-01-2023 Office outpatient visit 25 minutes Rodolfo Ariza MD Work Phone: [facility] Comment on above: Prostate cancer (Mul ti) (Primary Dx) Start: 12-01-2023 End: 12-01-2023 ambulatory RODOLFO Alona [facility] Start: 11-26-2023 End: 11-26-2023 ambulatory [facility] Start: 11-10-2023 End: 11-10-2023 Office outpatient visit 25 minutes Rodolfo Ariza MD Work Phone: [facility] Comment on above: Prostate cancer (Mul ti) Start: 11-10-2023 End: 11-10-2023 ambulatory RODOLFO M [facility] Start: 11-06-2023 End: 11-06-2023 Office outpatient new 30 minutes Gildardo Foster CNP Work Phone: [facility] Comment on above: Gastroesophageal ref lux disease, unspecified whether esophagitis present (Primary Dx); Heartburn Start: 11-06-2023 End: 11-06-2023 ambulatory [facility] [place] Start: 11-04-2023 End: 11-04-2023 ambulatory [facility] Start: 10-31-2023 End: 10-31-2023 Admission to same day surgery center Rosalinda Huynh CNP Work Phone: [facility] Start: 10-30-2023 End: 10-30-2023 Patient encounter procedure Gildardo Foster CNP Work Phone: [facility] Comment on above: Mixed hyperlipidemia (Primary Dx); Essential hypertension; Aortic aneurysm, unspecified portion of aorta, unspecified whether ruptured (HCC); Panlobular emphysema (HCC); Gastroesophageal reflux disease, unspecified whether esophagitis present; General medical exam; Personal history of tobacco use; At low risk for fall; Chronic bilateral low back pain without sciatica Start: 10-30-2023 End: 10-30-2023 Patient encounter status Gildardo Foster CNP Work Phone: [facility] Start: 10-30-2023 End: 10-30-2023 ambulatory GILDARDO FOSTER [facility] Ambulatory Start: 10-30-2023 End: 10-30-2023 Encounter for general adult medical examination without abnormal findings GILDARDO FOSTER [facility] Ambulatory Start: 10-23-2023 End: 10-23-2023 Office outpatient visit 40 minutes Yon Quinteros MD Work Phone: [facility] Comment on above: Preop respiratory ex am (Primary Dx); Lung nodule; Hemoptysis Start: 10-23-2023 End: 10-23-2023 Patient encounter status Yon Quinteros MD Work Phone: [facility] Work Phone: Start: 10-23-2023 End: 10-23-2023 ambulatory YONBRIAN QUINTEROS [facility] Start: 10-23-2023 ambulatory [facility] Start: 10-11-2023 End: 10-13-2023 Refill Gildardo Foster [facility] Work Phone: [facility] Start: 10-10-2023 End: 10-10-2023 ambulatory [facility] Start: 10-06-2023 End: 10-06-2023 Orders Only Yon Quinteros MD Work Phone: [facility] Comment on above: Lung nodule (Primary Dx) Start: 10-01-2023 End: 10-01-2023 ambulatory YON QUINTEROS [facility] Start: 09-30-2023 End: 09-30-2023 Office outpatient visit 25 minutes Rodolfo Ariza MD Work Phone: [facility] Comment on above: Prostate cancer (Mul ti) (Primary Dx) Start: 09-30-2023 End: 09-30-2023 ambulatory RODOLFO ARIZA [facility] Start: 09-29-2023 End: 10-03-2023 ambulatory FRANTZNATALIO MANZO [facility] Ambulatory Start: 09-29-2023 End: 09-29-2023 Office outpatient new 45 minutes Frantz Manzo MD Work Phone: [facility] Comment on above: Ascending aorta enla rgement (HCC) (Primary Dx) Start: 09-25-2023 Orders Only Rosalinda Aldridge gina TOOL GRINDER SET UP OPERATOR GEAR Work Phone: [facility] Comment on above: Lung nodule (Primary Dx) Start: 09-24-2023 End: 09-24-2023 Office outpatient new 45 minutes Gildardo Tanya Spieldenner TOOL GRINDER SET UP OPERATOR GEAR Work Phone: [facility] Comment on above: Hemoptysis (Primary Dx); Lung nodule Start: 09-24-2023 End: 09-24-2023 ambulatory GILDARDO TANYA JERSEYENNER [facility] Start: 09-16-2023 End: 09-16-2023 ambulatory GILDARDO TANYA DAVIONELDENNER [facility] Start: 09-15-2023 End: 09-15-2023 [facility] Comment on above: Hemoptysis (Primary Dx) 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) (Primary Dx) Start: 09-04-2023 Orders Only Isai henry PA-C Work Phone: [facility] Comment on above: Abnormal CT scan (Pr imary Dx); Ascending aorta dilatation (HCC); Hypertension, unspecified type; Aneurysm of the aortic arch, 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) Start: 09-02-2023 Orders Only Yon Quinteros MD Work Phone: [facility] Start: 08-28-2023 End: 08-28-2023 Office outpatient visit 15 minutes Gildardo Tanya Spieldenner TOOL GRINDER SET UP OPERATOR GEAR Work Phone: [facility] Comment on above: Lung nodule (Primary Dx); Aortic aneurysm, unspecified portion of aorta, unspecified whether ruptured (HCC) Start: 08-28-2023 End: 08-28-2023 ambulatory GILDARDO TANYA SPIELDENNER [facility] Ambulatory Start: 08-27-2023 Telephone encounter Monica rosa DO Work Phone: Hematology/Oncology Comment on above: Results Start: 08-22-2023 End: 08-22-2023 ambulatory GILDARDO TANYA JERSEYENNER [facility] Start: 08-21-2023 End: 08-21-2023 ambulatory GILDARDO TANYA DAVIONELDENNER [facility] Start: 08-12-2023 End: 08-12-2023 Refill Gildardo Foster TOOL GRINDER SET UP OPERATOR GEAR Work Phone: [facility] Start: 08-12-2023 End: 08-12-2023 Office outpatient new 45 minutes Gildardo Foster TOOL GRINDER SET UP OPERATOR GEAR Work Phone: [facility] Comment on above: Chronic bilateral lo w back pain without sciatica (Primary Dx); Gastroesophageal reflux disease, unspecified whether esophagitis present; Panlobular emphysema (HCC); Essential hypertension; Mixed hyperlipidemia; Nicotine use disorder Start: 08-11-2023 Orders Only Naima Sinha HEAD START DIRECTOR.TOOL GRINDER SET UP OPERATOR GEAR Work Phone: [facility] [place] Start: 08-08-2023 ambulatory Naima Sinha HEAD START DIRECTOR.TOOL GRINDER SET UP OPERATOR GEAR Work Phone: [facility] [place] Comment on above: Atenolol Start: 08-06-2023 End: 08-06-2023 Patient encounter procedure Naima Sinha APRN.TOOL GRINDER SET UP OPERATOR GEAR Work Phone: [facility] [place] Comment on above: Essential hypertensi on (Primary Dx) Start: 07-18-2023 End: 07-18-2023 Office outpatient visit 25 minutes Alina Bryson HEAD START DIRECTOR.TOOL GRINDER SET UP OPERATOR GEAR Work Phone: [facility] Comment on above: Chronic bilateral lo w back pain, unspecified whether sciatica present (Primary Dx); Lumbar spondylosis; Primary osteoarthritis of both hips; Spinal stenosis of lumbar region with neurogenic claudication; Bursitis of right hip, unspecified bursa; Myalgia Start: 07-16-2023 End: 07-16-2023 Patient encounter procedure Naima Sinha HEAD START DIRECTOR.TOOL GRINDER SET UP OPERATOR GEAR Work Phone: [facility] Comment on above: Essential hypertensi on (Primary Dx) Start: 07-16-2023 End: 07-16-2023 ambulatory Hector Ritchie MD Work Phone: [facility] Comment on above: Procedure (rfa); Justino k Pain (Lower bilateral - right is worse) Start: 07-16-2023 End: 07-16-2023 Patient encounter procedure Hector Ritchie MD Work Phone: [facility] Start: 06-30-2023 Refill Antonia Muñoz HEAD START DIRECTOR.TOOL GRINDER SET UP OPERATOR GEAR Work Phone: [facility] Comment on above: Med Change Request Start: 06-16-2023 End: 06-16-2023 ambulatory Monica Jung DO Work Phone: Hematology/Oncology Comment on above: 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) (Primary Dx) Start: 06-16-2023 End: 06-16-2023 Patient encounter procedure Monica Jung DO Work Phone: [facility] Start: 06-12-2023 Manual pelvic examination Monica Jung DO Work Phone: Hematology/Oncology Comment on above: 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) (Primary Dx); 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) Start: 06-10-2023 End: 06-10-2023 Patient encounter procedure Naima Sinha HEAD START DIRECTOR.TOOL GRINDER SET UP OPERATOR GEAR Work Phone: [facility] Comment on above: Essential hypertensi on (Primary Dx); Bilateral leg edema Start: 06-09-2023 Telephone encounter Cintia Babb PA-C Work Phone: [facility] Comment on above: Injection Questions Start: 06-06-2023 End: 06-06-2023 ambulatory Cintia Martin PA-C Work Phone: [facility] Comment on above: Lumbar spondylosis ( Primary Dx); Primary osteoarthritis of both hips; Spinal stenosis of lumbar region with neurogenic claudication; Anxiety due to invasive procedure BP high Start: 06-06-2023 End: 06-06-2023 Patient encounter procedure Antonia Muñoz TOOL GRINDER SET UP OPERATOR GEAR Work Phone: [facility] Comment on above: Essential hypertensi on (Primary Dx); Hyponatremia; Bilateral leg edema Start: 06-06-2023 End: 06-06-2023 Telemedicine consultation with patient Cintia Martin PA-C Work Phone: [facility] Start: 06-04-2023 End: 06-04-2023 ambulatory Hector Ritchie MD Work Phone: [facility] Comment on above: Procedure (mbb); Justino k Pain (Lower bilateral - right is worse); Hip Pain (Bilateral) Start: 06-04-2023 End: 06-04-2023 Patient encounter procedure Hector Ritchie MD Work Phone: [facility] Start: 05-27-2023 End: 05-27-2023 Subsequent hospital visit by physician [employer] [facility] (I-Stat/1.5t) Work Phone: Radiology Comment on above: Chronic bilateral lo w back pain, unspecified whether sciatica present [M54.50, G89.29] Start: 05-23-2023 End: 05-23-2023 ambulatory Cintia Martin PA-C Work Phone: [facility] [place] Comment on above: Lumbar spondylosis ( Primary Dx); Primary osteoarthritis of both hips Start: 05-23-2023 End: 05-23-2023 Telemedicine consultation with patient Cintia VICKERS-C Work Phone: [facility] Start: 05-21-2023 End: 05-21-2023 ambulatory Hector Ritchie MD Work Phone: [facility] [place] Comment on above: Procedure (MBB); Justino k Pain (LOWER - BILATERAL - HAD RADIATION IN BACK WHICH CAUSED THE BACK ISSUE 2 YEARS AGO) Start: 05-21-2023 End: 05-21-2023 Patient encounter procedure Hector Ritchie MD Work Phone: [facility] Start: 03-26-2023 ambulatory No Pcp (Hist) [facility] Start: 03-17-2023 Telephone encounter Naima sharma HEAD START DIRECTOR.TOOL GRINDER SET UP OPERATOR GEAR Work Phone: Family [facility] [place] Start: 03-17-2023 End: 03-17-2023 Subsequent hospital visit by physician Xr [facility] [place] Work Phone: Radiology Comment on above: Chronic bilateral lo w back pain with bilateral sciatica [M54.42, M54.41, G89.29] Start: 03-17-2023 End: 03-17-2023 Patient encounter procedure Naima Sinha HEAD START DIRECTOR.TOOL GRINDER SET UP OPERATOR GEAR Work Phone: [facility] [place] Comment on above: Bilateral hip pain ( Primary Dx); Chronic bilateral low back pain with bilateral sciatica Start: 03-14-2023 End: 03-14-2023 ambulatory Monica Jung DO Work Phone: Hematology/Oncology Comment on above: 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) (Primary Dx) Start: 03-14-2023 End: 03-14-2023 Patient encounter procedure Monica Jung DO Work Phone: [facility] Start: 03-07-2023 Manual pelvic examination Monica Jung DO Work Phone: Hematology/Oncology Comment on above: 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) (Primary Dx); 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) Start: 03-05-2023 Refill Erik Cota MD Work Phone: [facility] [place] Comment on above: Refill Request Start: 02-28-2023 ambulatory Naima Podlogeladia HAN.TOOL GRINDER SET UP OPERATOR GEAR Work Phone: Family [facility] [place] Comment on above: Gabapentin Start: 02-26-2023 ambulatory Naima Podlogeladia HAN.TOOL GRINDER SET UP OPERATOR GEAR Work Phone: [facility] [place] Comment on above: omeprazole Out of refills Start: 02-18-2023 End: 02-18-2023 Patient encounter procedure Liliya Jacobo APRN.TOOL GRINDER SET UP OPERATOR GEAR Work Phone: Pulmonary Medicine Comment on above: NO SHOW (Primary Dx) Start: 02-10-2023 Telephone encounter Monica rosa DO Work Phone: Hematology/Oncology Comment on above: Results Start: 02-05-2023 Telephone encounter Killian Cota MD Work Phone: [facility] [place] Comment on above: Results Start: 02-03-2023 End: 02-03-2023 Office outpatient visit 15 minutes Juana Scales MD Work Phone: [facility][note 2] Comment on above: Encounter for follow -up (Primary Dx); S/P insertion of penile implant; Lower urinary tract symptoms (LUTS); 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 dysfunction; Stress incontinence of urine; Smoker Start: 02-03-2023 Telephone encounter Killian Cota MD Work Phone: Family [facility] [place] Start: 02-03-2023 End: 02-04-2023 ambulatory [facility] Work Phone: [facility] Comment on above: Spirometry Start: 02-03-2023 End: 02-03-2023 Patient encounter procedure Pulm Lab [facility] Work Phone: [facility] Start: 01-31-2023 Telephone encounter Monica rosa DO Work Phone: Hematology/Oncology Comment on above: New Patient Start: 01-31-2023 End: 01-31-2023 Patient encounter procedure Erik Cota MD Work Phone: Family [facility] [place] Comment on above: 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) (Primary Dx); S/P prostatectomy; History of small bowel obstruction; Straining during bowel movements; Chronic obstructive pulmonary disease, unspecified COPD type (HCC); Essential hypertension; Mixed hyperlipidemia; Gastroesophageal reflux disease, unspecified whether esophagitis present; Primary osteoarthritis involving multiple joints; Tobacco use Start: 01-06-2023 End: 01-06-2023 Manual pelvic examination Tatiana Rahman MD Work Phone: Hematology/Oncology Comment on above: 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) (Primary Dx) Start: 01-06-2023 End: 01-06-2023 Patient encounter procedure Tatiana Rahman MD Work Phone: [facility] Start: 12-24-2022 ambulatory MD JUANA SCALES Facility:[id number] Start: 12-24-2022 Postop follow up vis it related to original px Referring Provider Unknown IN-Kcsuldr-Myyfp [place] Work Phone: Start: 12-13-2022 Telephone encounter Naima sharma APRN.CNP Work Phone: [facility] [place] Comment on above: Results Start: 12-13-2022 ambulatory PA-Tia HOLBROOK Faci lity: Start: 12-12-2022 ambulatory Vivi Smith RN Work Phone: [facility] Start: 12-12-2022 Follow-up encounter Vivi Smith RN Work Phone: [employer] [facility] Comment on above: Transition Of Care ( TCM Follow Up/) Start: 12-12-2022 End: 12-12-2022 Subsequent hospital visit by physician Devin Sanchez MD Work Phone: Ambulatory Surgery Comment on above: Screening for colon cancer [Z12.11] Start: 12-04-2022 Patient Outreach Rose Xiong RN [facility] [place] Comment on above: Transition Of Care ( TCM f/u call ) Start: 12-03-2022 ambulatory UNKNOWN UNKNOWN Facilit [id number] Start: 11-26-2022 Telephone encounter Randa Szymanski RN NOC Comment on above: Follow Up (All Clear ) Start: 11-25-2022 End: 11-25-2022 Patient Outreach Anya Aldana RN Work Phone: [facility] [employer] [facility] Comment on above: Transition Of Care ( TCM Initial [facility] Discharge 11/22/22) Hospital discharge f ollow-up (Primary Dx); Decreased hemoglobin; Gastrointestinal hemorrhage, unspecified gastrointestinal hemorrhage type; Ileus (HCC); Small bowel obstruction (HCC) Start: 11-19-2022 Telephone encounter Killian Cota MD Work Phone: [facility] [place] Comment on above: Patient Update Start: 11-18-2022 ambulatory Ms. Svitlana Chino Facility:[facility] Start: 11-18-2022 Postop follow up vis it related to original px Referring Provider Unknown DM-Uiwoyxe-Njgzq [place] Work Phone: Start: 11-15-2022 Telephone encounter Referring Provider Unknown AV-Ioyllog-Jtrmx [facility] Work Phone: Start: 11-14-2022 Chart Update Referring Prov ider Unknown VQ-Yviuhdw-Liwvi [facility] Work Phone: Start: 11-14-2022 End: 11-14-[address] uJana Scales Facility:[facility] Start: 11-14-2022 End: 11-14-2022 Subsequent hospital visit by physician Juana Scales MD Work Phone: [facility] Comment on above: Male erectile dysfun ction, unspecified Start: 11-07-2022 Chart Update Referring Prov ider Unknown RD-Odjsmjg-Lxcjr [facility] Work Phone: Start: 11-04-2022 Chart Update Referring Prov ider Unknown [id number] Work Phone: Start: 11-04-[address] Juana Scales Facility:[facility] Start: 11-04-2022 Encounter for blood typing Dr. Juana Scales [facility][note 2] Start: 11-04-2022 Encounter for preprocedural cardiovascular examination Dr. Juana Scales [facility] [place][note 2] Start: 10-30-2022 ambulatory PCP UNKNOWN Facility:[id number] Start: 10-04-2022 Chart Update Referring Prov ider Unknown RI-Dbpljiu-Qfszj Aura Work Phone: Start: 10-01-2022 ambulatory PCP UNKNOWN Facility:U Start: 10-01-2022 Office outpatient vi sit 40 minutes Referring Provider Unknown XQ-Zzjpnmq-Ergoh Aura Work Phone: Start: 10-01-2022 ambulatory PCP UNKNOWN Facility:9 185 Start: 09-20-2022 End: 09-20-2022 Patient encounter procedure Chasidy Luciano HEAD START DIRECTOR.TOOL GRINDER SET UP OPERATOR GEAR Work Phone: [facility] Comment on above: Encounter related to worker's compensation claim (Primary Dx) Start: 09-20-2022 ambulatory MD RYAN Turner ty: Start: 09-11-2022 Chart Update Referring Prov ider Unknown XG-Wnnngep-Poxfw [place] Work Phone: Start: 09-11-2022 Office outpatient vi sit 25 minutes Referring Provider Unknown [facility] Work Phone: Start: 09-11-2022 ambulatory PCP UNKNOWN Facility:9 404 Start: 09-11-2022 ambulatory PCP UNKNOWN Facility:9 185 Start: 09-11-2022 Chart Update Referring Prov ider Unknown MZ-Sbvccuddzqau-Chotm n 200 Work Phone: Start: 09-10-2022 ambulatory DOMINIC WEBBER Facility: Start: 09-06-2022 ambulatory PCP UNKNOWN Facility:1 5369 Start: 09-04-2022 Chart Update Referring Prov ider Unknown UO-Jqndfou-Rmivq Aura Work Phone: Start: 09-03-2022 ambulatory PCP UNKNOWN Facility:9 185 Start: 09-03-2022 Office outpatient ne w 45 minutes Referring Provider Unknown QX-Wlhbfkg-Yhmoc Aura Work Phone: Start: 08-22-2022 ambulatory PCP UNKNOWN Facility:9 333 Start: 08-02-2022 ambulatory MD RYAN Turner ty: Start: 07-22-2022 ambulatory PCP UNKNOWN Facility:1 9898 Start: 07-11-2022 Chart Update Referring Prov ider Unknown GC-Wvfdokr-Khpxdw Work Phone: Start: 07-09-2022 Chart Update Referring Prov ider Unknown FO-Nzyuztn-Nnoyrj Work Phone: Start: 07-08-2022 ambulatory PCP UNKNOWN Facility:9 139 Start: 07-01-2022 ambulatory PCP UNKNOWN Facility:1 9898 Start: 06-21-2022 ambulatory PCP UNKNOWN Facility:1 9898 Start: 06-19-2022 ambulatory Ryan Cohn Facility:2 0053 Start: 06-17-2022 ambulatory Ryan Cohn Faci lity:UNKNOWN Start: 06-12-2022 ambulatory PCP UNKNOWN Facility:1 9898 Procedures Date Procedure Procedure Detail Performing Clinician Start: 09-27-2024 Radex hip unilateral with pelvis 2-3 views Monica Jung DO Work Phone: Start: 09-24-2024 Co diffusing capacity E oli العلي MD Work Phone: Start: 09-14-2024 Lipid 1996 panel - Serum or Plasma Naima Podlogeladia HEAD START DIRECTOR.TOOL GRINDER SET UP OPERATOR GEAR Work Phone: Start: 07-07-2024 Follow-up visit Follow-up YON QUINTEROS Start: 07-07-[address] attenuation skull base mid-thigh Kavon Nino Work Phone: Start: 05-31-2024 US OTHER-INJECTION (POC) AC USE ONLY Amadeo Yee MD Work Phone: Start: 03-01-2024 Radiologic exam ches t 2 views Naima Sinha HEAD START DIRECTOR.TOOL GRINDER SET UP OPERATOR GEAR Work Phone: Start: 10-23-2023 Basic metabolic pane l calcium total Harsh Stevenson Quinteros MD Work Phone: Start: 08-12-2023 Adult depression screening assessment Gildardo Foster TOOL GRINDER SET UP OPERATOR GEAR Work Phone: Start: 05-27-2023 Mri spinal canal lumbar w/o contrast material Hector Ritchie MD Work Phone: Start: 03-17-2023 Radex hips bilateral with pelvis minimum 5 views Naima Sinha HEAD START DIRECTOR.TOOL GRINDER SET UP OPERATOR GEAR Work Phone: Start: 02-03-2023 Brncdilat rspse spmtry pre&post-brncdilat admn Erik Cota MD Work Phone: Start: 12-12-2022 Level iv surg pathology gross&microscopic exam Devin Sanchez MD Work Phone: Start: 12-12-2022 Colonoscopy flx dx w/collj spec when pfrmd Naima Sinha HEAD START DIRECTOR.TOOL GRINDER SET UP OPERATOR GEAR Work Phone: Start: 12-12-2022 Colonoscopy Vivi Smith RN Work Phone: Start: 12-12-2022 Lipid 1996 panel - Serum or Plasma Tatiana Rahman MD Work Phone: Start: 11-04-[address] Noa Scales Comment on above: Performed By: #### T +S #### [facility] [address] [place] [address] H/O: surgery S/P prostatectomy Killian Cota MD Work Phone: H/O: surgery S/P prostatectomy Naima sharma HEAD START DIRECTOR.TOOL GRINDER SET UP OPERATOR GEAR Work Phone: History of radiation therapy History of radiation therapy Referring Provider Unknown Plan of Treatment Date Care Activity Detail Author Start: 06-10-2033 DTaP/Tdap/Td Vaccines (2 - Td or Tdap) DTaP/Tdap/Td Vaccines (2 - Td or Tdap) [facility] Start: 06-10-2033 Tetanus vaccination Tetanus: Every 10yrs [facility] Start: 06-10-2033 Urine microalbumin profile DTaP,Tdap,Td Vaccine (2 - T d or Tdap) [facility] Start: 12-12-2032 Screening for malignant neoplasm of colon [facility] Start: 09-14-2029 Lipid panel Lipid Screening [facility] Start: 03-10-2028 Prostate Cancer Screening Discussion Prostate Cancer Screening Discussion [facility] Start: 03-10-2028 Prostate specific antigen measurement Prostate Cancer Screening Discussion [facility] Start: 02-07-2028 Prostate Cancer Screening Discussion Prostate Cancer Screening Discussion [facility] Start: 12-14-2027 Prostate Cancer Screening Discussion Prostate Cancer Screening Discussion [facility] Start: 12-13-2027 Colonoscopy Colonoscopy [facility] Start: 12-13-2027 Colorectal Cancer Screening Colorectal Cancer Screening [facility] Start: 12-13-2027 Lipid 1996 panel - Serum or Plasma Lipid Screening [facility] Start: 12-13-2027 Lipid panel Lipid Screening [facility] Start: 12-13-2027 LIPID SCREEN LIPID SCREEN [facility] Start: 12-13-2027 Screening for malignant neoplasm of colon [facility] Start: 11-03-2027 Diabetes Screening Diabetes Screening [facility] Start: 10-20-2027 Diabetes Screening Diabetes Screening [facility] Start: 10-06-2027 Diabetes Screening Diabetes Screening [facility] Start: 09-21-2027 PROSTATE CANCER SCREENING DISCUSSION PROSTATE CANCER SCREENING DISCUSSION [facility] Start: 09-04-2027 Diabetes Screening Diabetes Screening [facility] Start: 08-28-2027 Diabetes Screening Diabetes Screening [facility] Start: 08-20-2027 Diabetes Screening Diabetes Screening [facility] Start: 10-22-2026 Diabetes Screening Diabetes Screening [facility] Start: 06-05-2026 Diabetes Screening Diabetes Screening [facility] Start: 05-05-2026 Diabetes Screening Diabetes Screening [facility] Start: 03-10-2026 Diabetes Screening Diabetes Screening [facility] Start: 12-13-2025 Diabetes Screening Diabetes Screening [facility] Start: 12-12-2025 DIABETES SCREEN DIABETES SCREEN [facility] Start: 11-20-2025 DIABETES SCREEN DIABETES SCREEN [facility] Start: 10-25-2025 End: 10-25-2025 Patient encounter procedure 10/25/2025 9:00 AM EDT Off ice Visit [facility] [address] [place], [place] [id number] Adiel Elam, OD [address] [place] [address] Diagnostics, [facility] [address] [place] [address] 1 YR F/U FOR COMPLETE EYE EXAM Ophthalmology Comment on above: 1 YR F/U FOR COMPLETE EYE EXAM Start: 09-20-2025 DIABETES SCREEN DIABETES SCREEN [facility] Start: 09-14-2025 Annual PCP Team Chronic Disease Visit Annual PCP Team Chronic Disease Visit [facility] Start: 08-27-2025 BP Controlled (<130/80) BP Controlled (<130/80) [facility] Start: 07-27-2025 BP Controlled (<130/80) BP Controlled (<130/80) [facility] Start: 07-20-2025 BP Controlled (<130/80) BP Controlled (<130/80) [facility] Start: 07-12-2025 BP Controlled (<130/80) BP Controlled (<130/80) [facility] Start: 07-05-2025 BP Controlled (<130/80) BP Controlled (<130/80) [facility] Start: 07-02-2025 Prostate specific antigen measurement PSA Level [facility] Start: 05-17-2025 Screening for malignant neoplasm of lung [facility] Start: 03-15-2025 End: 03-15-2025 Patient encounter procedure 03/15/2025 10:40 AM EST Office Visit [facility] [address] [place], [place] [id number] Erik Cota MD [address] [place] [id number] 6 month follow up [facility] Comment on above: 6 month follow up Start: 03-01-2025 Annual PCP Team Chronic Disease Visit Annual PCP Team Chronic Disease Visit [facility] Start: 01-17-2025 End: 01-17-2025 ambulatory Hematology/Oncol ogy Comment on above: Q3MO ELIGARD* LATE PM APPTS CBC/CMP/PSA/TESTOSTE DAVID 3MO OV Start: 01-11-2025 Screening for malignant neoplasm of lung [facility] Start: 01-05-2025 End: 01-05-2025 Patient encounter procedure 01/05/2025 1:30 PM EDT Off ice Visit [facility] Pulmonology [address] [facility] [place] [id number] Yon Quinteros MD [facility] [place] [address] [facility] Pulmonology Start: 12-28-2024 End: 12-28-2024 ambulatory [place] [place] Laboratory Comment on above: BMP(S) 2ND FLOOR (SO)BMP(S)* Start: 12-28-2024 End: 12-28-2024 Patient encounter procedure Cat Scan Comment on above: Lung nodules [R91.8]; Prostate cancer me tastatic to bone (HCC) [C61, C79.51] Start: 12-17-2024 End: 12-17-2024 Patient encounter procedure 12/17/2024 2:15 PM EDT Appointment Radiology [address] [place] [id number] Malignant neoplasm of prostate metastatic to bone (HCC) [C61, C79.51] Radiology Comment on above: Malignant neoplasm of prostate metastati c to bone (HCC) [C61, C79.51] Start: 12-06-2024 Influenza vaccination [facility] Start: 11-30-2024 End: 11-30-2024 ambulatory [facility] Comment on above: BMP(S) 2ND FLOOR (SO)BMP(S)* Start: 11-26-2024 End: 11-26-2024 Specialty Pharmacy 11/26/2024 7:00 AM EDT Specialty Pharmacy [facility] [address] [place], [place] [id number] [id number] Pharmacist, [facility] [address] [place] [id number] Refill - Xtandi (30DS) - call nathan Stephens [facility] Comment on above: Refill - Xtandi (30DS) - call nathan Stephens Start: 11-22-2024 End: 11-22-2024 ambulatory 11/22/2024 4:45 PM EDT Results Only [place] [address] [place] [address] PSA [facility] Comment on above: PSA Start: 11-22-2024 End: 11-22-2024 Patient encounter procedure 11/22/2024 10:00 AM EDT Appointment [facility] CT Scan [address] [place] [phone] Yon Quinteros MD [address] [place] [address] [place] [address] [facility] CT Scan Start: 11-21-2024 End: 05-24-2025 CT Chest W contrast IV and CT angiogram Pulmonary arteries for pulmonary embolus W contrast IV CT Chest Low Dose Lung Diagnostic - Only [facility] Imaging Routine Lung nodule Expected: 11/21/2024, Expires: 05/24/2025 [facility] Work Phone: Comment on above: Expected: 11/21/2024, Expires: Start: 11-18-2024 End: 11-18-2024 Patient encounter procedure 11/18/2024 8:00 AM EDT Off ice Visit [facility] [address] [place] [place] [address] Alina Bryson APRN.TOOL GRINDER SET UP OPERATOR GEAR [address] [place], [place] [id number] Discuss injections for left hip pain [facility] Comment on above: Discuss injections for left hip pain Start: 11-15-2024 End: 10-24-[address]25 CT Chest WO contrast CT CHEST WO IVCON Radiology Routine Lung nodules Prostate cancer metastatic to bone (HCC) Expected: 11/15/2024, Expires: 10/24/2025 [facility] Comment on above: Expected: 11/15/2024, Expires: Start: 11-03-2024 Depression screening using PHQ-9 (Patient Health Questionnaire 9) score Depression Screening/Follow-Up (PHQ-2/9) [facility] Start: 11-02-2024 End: 11-02-2024 ambulatory 11/02/2024 3:30 PM EDT [facility] Hematology/Oncology [address] [place] [address] 2ND FLOOR Hematology/Oncol ogy Comment on above: 2ND FLOOR Start: 11-02-2024 End: 11-02-2024 ambulatory [facility] Comment on above: BMP(S) 2ND FLOOR Start: 10-29-2024 Depression screening using PHQ-9 (Patient Health Questionnaire 9) score Depression Screening/Follow-Up (PHQ-2/9) [facility] Start: 10-29-2024 Fall risk assessment Falls Risk Assessment [facility] Start: 10-29-2024 Medicare Wellness Visit Medicare Wellness Visit [facility] Start: 10-29-2024 End: 10-29-2024 Specialty Pharmacy 10/29/2024 7:15 AM EDT Specialty Pharmacy [facility] [address] [place], [place] [id number] [place] [address] Pharmacist, [facility] [address] [place] [address] [place] [address] Refill - Xtandi (30 DS) - call Kat [facility] Comment on above: Refill - Xtandi (30 DS) - call Kat Start: 10-25-2024 End: 10-25-2024 ambulatory Hematology/Oncol ogy Comment on above: 3-4MO OV ELIGUARD/3-4MO OV ELIGUARD/ 1 MO OV Q3MO ELIGARD* LATE P M APPTS Start: 10-19-2024 End: 10-19-2024 Patient encounter procedure 10/19/2024 9:45 AM EDT Off ice Visit [facility] [address] [place] [address] Adiel Elam, OD [address] [address] Diagnostics, [facility] [address] [address] My eyes exam Ophthalmology Comment on above: My eyes exam Start: 10-18-2024 End: 10-18-2024 ambulatory [facility] Comment on above: PSA/TESTOSTERONE CBC/CMP/PSA/TESTOSTE DAVID* Start: 10-09-2024 Screening for malignant neoplasm of lung [facility] Start: 10-05-2024 End: 10-05-2024 ambulatory [place] [facility] Laboratory Comment on above: BMP 2ND FLOOR BMP(S)* LAB AT 2:30 FLOO R Start: 10-05-2024 End: 01-04-2025 Basic metabolic 2000 panel - Serum or Plasma BASIC METABOLIC PANEL Lab STAT Malignant neoplasm of prostate metastatic to bone (HCC) Expected: 10/05/2024, Expires: 01/04/2025 [facility] Work Phone: Comment on above: Expected: 10/05/2024, Expires: Start: 10-04-2024 End: 10-04-2024 Specialty Pharmacy 10/04/2024 7:30 AM EDT Specialty [facility]acy [facility] [id number] [place] [address] Pharmacist, [facility] [address] [place] [address] [place], [place] [phone] Refill - Xtandi (30 DS) - call Kat [facility] Comment on above: Refill - Xtandi (30 DS) - call Kat Start: 09-24-2024 End: 09-24-2024 Patient encounter procedure 09/24/2024 3:15 PM EDT Off ice Visit Pulmonary Medicine [address] [place] [phone] Aimee العلي MD [address] [place] [phone] Chronic obstructive pulmonary disease, unspecified COPD type (HCC) [J44.9] Pulmonary Medicine Comment on above: Chronic obstructive pulmonary disease, u nspecified COPD type (HCC) [J44.9] Start: 09-24-2024 End: 09-24-2024 ambulatory PULM LAB [facility] Comment on above: Chronic obstructive pulmonary disease, u nspecified COPD type (HCC) [J44.9] Start: 09-14-2024 End: 09-14-2024 ambulatory 09/14/2024 4:00 PM EDT Visit (SP) Office Hematology/Oncology [address] [place], [place] [phone] Monica Jung DO [address] [place] [address] 1MO OV Hematology/Oncol ogy Comment on above: 1MO OV Start: 09-14-2024 End: 09-14-2024 Patient encounter procedure Radiology Comment on above: Dx: Malignant neoplasm of prostate metas tatic to bone (HCC) [C61, C79.51]; Bilateral hip pain [M25.551, M25.552] 6 month follow up Start: 09-03-2024 End: 09-03-2024 ambulatory 09/03/2024 4:45 PM EDT Results Only [facility] [address] [place] [address] BMP(S)* [facility] Comment on above: BMP(S)* Start: 08-27-2024 End: 08-27-2024 ambulatory Hematology/Oncol ogy Comment on above: 6 WK OV/LAB EARLY* late pm appts NEEDS ELIGUARD INJEC TION AT OCTOBER VISIT/6 WK OV/LAB EARLY* late pm appts Start: 08-27-2024 End: 08-27-2024 Patient encounter procedure 08/27/2024 8:00 AM EDT Off ice Visit [facility] [address] [facility] [address] [place] [address] Dominic Baazn DO [address] [facility] [address] [place] [address] follow up from [facility] Comment on above: follow up from iesi Start: 08-26-2024 End: 08-26-2024 ambulatory 08/26/2024 3:30 PM EDT [facility] Radiation Oncology [address] [place] [address] Sobia Oakes MD [address] [place] [address] 4WK OV Radiation Oncology Comment on above: 4WK OV Start: 08-23-2024 End: 08-23-2024 Patient encounter procedure 08/23/2024 1:45 PM EDT Appointment Radiology [address] [place] [address] YADIEL (acute kidney injury) [N17.9] Radiology Comment on above: YADIEL (acute kidney injury) [N17.9] Start: 08-20-2024 Screening for malignant neoplasm of lung [facility] Start: 08-19-2024 End: 08-19-2024 ambulatory 08/19/2024 4:45 PM EDT Results Only [place] [facility] [address] [place] [address] CBC/CMP/PSA [facility] Comment on above: CBC/CMP/PSA Start: 08-16-2024 End: 08-16-2024 ambulatory 08/16/2024 12:00 PM EDT Procedure [facility] [address] [place] [address] Amadeo Yee MD [address] [place] [address] ILESI w fluoro at L5-S1; 81mg asp [facility] Comment on above: ILESI w fluoro at L5-S1; 81mg asp Start: 08-12-2024 End: 08-12-2024 Follow-up encounter 08/12/2024 4:15 PM EDT [facility] [address] [place] [address] Alina Bryson APRN.TOOL GRINDER SET UP OPERATOR GEAR [address] [place] [address] CARINE follow up [facility] Comment on above: CARINE follow up Start: 08-11-2024 Administration of herpes zoster vaccine Zoster Vaccines (1 of 2) [facility] Comment on above: Postponed from 02/20/2004 (Patient Refus ed) Start: 08-11-2024 COVID-19 Vaccine () COVID-19 Vaccine () [facility] Comment on above: Postponed from 12/20/2022 (Patient Refus ed) Start: 08-11-2024 Depression screening using PHQ-9 (Patient Health Questionnaire 9) score [facility] Start: 08-05-2024 Annual PCP Team Chronic Disease Visit Annual PCP Team Chronic Disease Visit [facility] Start: 08-02-2024 End: 08-02-2024 Patient encounter procedure 08/02/2024 3:15 PM EDT Appointment Radiation Oncology [address] [place] [address] Location: [facility] Comment on above: Location: [facility] Start: 07-30-2024 End: 07-30-2024 Patient encounter procedure 07/30/2024 3:15 PM EDT Appointment Radiation Oncology [address] [place] [address] Location: [facility] Comment on above: Location: [facility] Start: 07-29-2024 End: 07-29-2024 Patient encounter procedure 07/29/2024 3:15 PM EDT Appointment Radiation Oncology [address] [place] [address] Location: [facility] Comment on above: Location: [facility] Start: 07-28-2024 End: 07-28-2024 Patient encounter procedure 07/28/2024 3:15 PM EDT Appointment Radiation Oncology [address] [place] [address] Location: [facility] Comment on above: Location: [facility] Start: 07-27-2024 End: 07-27-2024 Patient encounter procedure Radiation Oncology Comment on above: Location: [facility] Location: [facility] VISIT Start: 07-27-2024 End: 07-27-2024 Patient encounter procedure 07/27/2024 8:30 AM EDT Off ice Visit [facility] [address] [place] [id number] [place] [address] [place] [address] [facility] Start: 07-26-2024 End: 07-26-2024 Patient encounter procedure 07/26/2024 3:15 PM EDT Appointment Radiation Oncology [address] [place] [phone] Location: [facility] Comment on above: Location: [facility] Start: 07-26-2024 End: 04-27-2025 Prostate specific Ag [Mass/volume] in Serum or Plasma Prostate Specific Antigen Lab Routine Prostate cancer (Multi) Expected: 07/26/2024 (Approximate), Expires: 04/27/2025 [facility] Work Phone: Comment on above: Expected: 07/26/2024 (Approximate), Expi res: 04/27/2025 Start: 07-26-2024 End: 04-27-2025 Testosterone [Mass/volume] in Serum or Plasma Testosterone,Total, LC-MS/MS Lab Routine Prostate cancer (Multi) Expected: 07/26/2024 (Approximate), Expires: 04/27/2025 [facility] Service [facility] Work Phone: Comment on above: Expected: 07/26/2024 (Approximate), Expi res: 04/27/2025 Start: 07-26-2024 End: 07-26-2024 ambulatory [facility] Comment on above: ILESI w fluoro at L5-S1; 81mg asp Start: 07-23-2024 End: 07-23-2024 Patient encounter procedure 07/23/2024 3:15 PM EDT Appointment Radiation Oncology [address] [place] [address] Location: [facility] Comment on above: Location: [facility] Start: 07-22-2024 End: 07-22-2024 Patient encounter procedure 07/22/2024 3:15 PM EDT Appointment Radiation Oncology [address] [place] [address] Location: [facility] Comment on above: Location: [facility] Start: 07-21-2024 End: 07-21-2024 Patient encounter procedure 07/21/2024 3:15 PM EDT Appointment Radiation Oncology [address] [place] [address] Location: [facility] Radiation Oncology Comment on above: Location: [facility] Start: 07-21-2024 End: 07-21-2024 ambulatory 07/21/2024 2:45 PM EDT Infusion Center Hematology/Oncology [address] [place] [address] Wstr, Injection Rick [facility] [address] [place] [address] START Q3MO ELIGARD* late pm appts Hematology/Oncol ogy Comment on above: START Q3MO ELIGARD* late pm appts Start: 07-20-2024 End: 07-20-2024 Patient encounter procedure Radiation Oncology Comment on above: needs 315 appt time Location: [facility] TRE[facility] MENT VISIT Start: 07-15-2024 Annual PCP Team Chronic Disease Visit Annual PCP Team Chronic Disease Visit [facility] Start: 07-15-2024 End: 07-15-2024 Patient encounter procedure [facility] Comment on above: 2 months follow up in office sim at this time. re treatment. needs consent Start: 07-15-2024 End: 07-15-2024 Nursing evaluation of patient and report 07/15/2024 10:45 AM EDT Nurse Visit Radiation Oncology [address] [place] [address] Wstr, Nurse Radt [facility] [address] [place] [address] needs consent Radiation Oncology Comment on above: needs consent Start: 07-12-2024 End: 07-12-2024 Patient encounter procedure 07/12/2024 10:30 AM EDT Office Visit Radiation Oncology [address] [place] [address] Sobia Oakes MD [address] [place] [address] CONSULTATION- Rising PSA level/Prostate cancer metastatic to bone* THIS DATE AND TIME PER PATIENT Radiation Oncology Comment on above: CONSULTATION- Rising PSA level/Prostate cancer metastatic to bone* THIS DATE AND TIME PER PATIENT Start: 07-12-2024 End: 07-12-2024 ambulatory 07/12/2024 9:30 AM EDT Visit (SP) Office Hematology/Oncology [address] [place] [address] Monica Jung, DO [address] [place] [address] OV/PER TE 4/3* Hematology/Oncol ogy Comment on above: OV/PER TE 43* Start: 07-07-2024 End: 07-07-2024 Patient encounter procedure Nuclear Medi cine Comment on above: NM PET CT PROSTATE WHOLE BODY Start: 07-05-2024 End: 07-05-2024 ambulatory [facility] Comment on above: PSA, testosterone 3MO OV Start: 06-21-2024 End: 06-21-2024 Patient encounter procedure Nuclear Medi cine Comment on above: Rising PSA level [R97.20]; Prostate canc er metastatic to intraabdominal lymph node (HCC) [C61, C77.2] Start: 06-17-2024 End: 06-17-2024 Patient encounter procedure [facility] [facility] Comment on above: GTB injection follow up Start: 06-16-2024 End: 04-17-2025 PET+CT Guidance for localization of tumor of Whole body-- W 18F-FDG IV NM PET/CT PROSTATE WHOLE BODY IMAGING Radiology Routine Rising PSA level 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) Expected: 06/16/2024 (Approximate), Expires: 04/17/2025 [facility] Work Phone: Comment on above: Expected: 06/16/2024 (Approximate), Expi res: 04/17/2025 Start: 06-09-2024 Annual PCP Team Chronic Disease Visit Annual PCP Team Chronic Disease Visit [facility] Start: 03-01-2025 Annual PCP Team Chronic Disease Visit Annual PCP Team Chronic Disease Visit [facility] Start: 05-31-2024 End: 05-31-2024 ambulatory 05/31/2024 12:00 PM EST Procedure [facility] [address] [place] [address] Amadeo Yee MD [address] [facility] [address] [place] [address] Left GTB injection; 81mg asp [facility] Comment on above: Left GTB injection; 81mg asp Start: 05-20-2024 End: 05-20-2024 Patient encounter procedure 05/20/2024 1:45 PM EST Off ice Visit [facility] [address] [place] [address] Alina Bryson APRN.TOOL GRINDER SET UP OPERATOR GEAR [address] [place], [place] [address] discuss injections [facility] Comment on above: discuss injections Start: 05-17-2024 End: 05-17-2024 Patient encounter procedure 05/17/2024 10:00 AM EST Appointment [facility] CT Scan [address] [place] [phone] Yon Quinteros MD [address] [place] [address] [facility] CT Scan Start: 05-13-2024 End: 05-13-2024 Patient encounter procedure 05/13/2024 9:30 AM EST Off ice Visit [facility] [address] [place] [address] Alina Bryson APRN.TOOL GRINDER SET UP OPERATOR GEAR [address] [place] [address] ILESI follow up [facility] Comment on above: ILESI follow up Start: 05-05-2024 Annual PCP Team Chronic Disease Visit Annual PCP Team Chronic Disease Visit [facility] Start: 04-26-2024 End: 04-26-2024 ambulatory 04/26/2024 10:10 AM EST Procedure [facility] [address] [place] [address] Amadeo Yee MD [address] [place] [address] ILESI w fluoro at L5-S1 [facility] Comment on above: ILESI w fluoro at L5-S1 Start: 04-07-2024 Advance Directive Discussion Advance Directive Discussion [facility] Start: 03-18-2024 End: 03-18-2024 ambulatory 03/18/2024 8:30 AM EST Visit (SP) Office Hematology/Oncology [address] [place] [address] Kavon Nino [address] [place] [address] 3MO OV/ LABS 12/11* masci Hematology/Oncol ogy Comment on above: 3MO OV/ LABS 12/11* masci Start: 03-17-2024 Annual PCP Team Chronic Disease Visit Annual PCP Team Chronic Disease Visit [facility] Start: 03-17-2024 BP Controlled (<130/80) BP Controlled (<130/80) [facility] Start: 03-15-2024 End: 03-15-2024 ambulatory 03/15/2024 10:30 AM EST Visi t (SP) Office Hematology/Oncology [address] [place] [address] Kavon Nino [address] [place] [address] 3MO OV/ LABS 12/11* masci Hematology/Oncol ogy Comment on above: 3MO OV/ LABS 12/11* masci Start: 03-15-2024 End: 03-15-2024 ambulatory 03/15/2024 9:10 AM EST Visit (SP) Office Hematology/Oncology [address] [place] [address] Monica Jung DO [address] [place] [address] 3MO OV/ LABS 12/11* Hematology/Oncol ogy Comment on above: 3MO OV/ LABS 12/11* Start: 03-11-2024 End: 03-11-2024 ambulatory 03/11/2024 4:45 PM EST Results Only Marcos [facility] [address] [place] [address] PSA* [facility] Comment on above: PSA* Start: 03-11-2024 End: 03-11-2024 Patient encounter procedure 03/11/2024 2:45 PM EST Off ice Visit [facility] [address] [place] [address] Alina Bryson APRN.TOOL GRINDER SET UP OPERATOR GEAR [address] [place] [address] discuss pain, lyrica refill [facility] Comment on above: discuss pain, lyrica refill Start: 03-11-2024 End: 03-11-2024 Patient encounter procedure 03/11/2024 1:40 PM EST Off [place] Visit [facility] [address] [place] [address] Gildardo Foster, JAMES [address] [place] [address] [facility] Start: 03-10-2024 End: 03-10-[address] prostate PSMA NM PET CT prostate PSMA Imaging Routine Prostate cancer (Multi) Expected: 03/10/2024 (Approximate), Expires: 03/10/2025 [facility] Service Area Work Phone: Comment on above: Expected: 03/10/2024 (Approximate), Expi res: 03/10/2025 Start: 03-02-2024 End: 11-30-2024 Prostate specific Ag [Mass/volume] in Serum or Plasma Prostate Specific Antigen Lab Routine Prostate cancer (Multi) Expected: 03/02/2024 (Approximate), Expires: 11/30/2024 [facility] Work Phone: Comment on above: Expected: 03/02/2024 (Approximate), Expi res: 11/30/2024 Start: 03-02-2024 End: 11-30-2024 Testosterone [Mass/volume] in Serum or Plasma Testosterone,Total, LC-MS/MS Lab Routine Prostate cancer (Multi) Expected: 03/02/2024 (Approximate), Expires: 11/30/2024 [facility] Service Area Work Phone: Comment on above: Expected: 03/02/2024 (Approximate), Expi res: 11/30/2024 Start: 03-01-2024 End: 03-01-2024 Patient encounter procedure 03/01/2024 3:10 PM EST Appointment Radiology [address] [place] [address] Acute cough [R05.1]; COPD with exacerbation (HCC) [J44.1] Radiology Comment on above: Acute cough [R05.1]; COPD with exacerbat ion (HCC) [J44.1] Start: 02-03-2024 End: 02-03-2024 Patient encounter procedure 02/03/2024 8:00 AM EDT Off ice Visit [facility] [address] [place] [phone] Gildardo Foster, JAMES [address] [place] [address] [facility] Start: 02-01-2024 Annual PCP Team Chronic Disease Visit Annual PCP Team Chronic Disease Visit [facility] Start: 02-01-2024 Covid-19 Vaccine () Covid-19 Vaccine () [facility] Comment on above: Postponed from 12/20/2022 (Declined at t his time) Start: 02-01-2024 Hepatitis C Screening Hepatitis C Screening [facility] Comment on above: Postponed from 02/20/1972 (Declined at t his time) Start: 02-01-2024 Hepatitis C screening Hepatitis C Screening [facility] Comment on above: Postponed from 02/20/1972 (Declined at t his time) Start: 02-01-2024 RSV Vaccine (1 - 1-dose 60+ series) RSV Vaccine (1 - 1-dose 60+ series) [facility] Comment on above: Postponed from 2014 (Declined at t his time) Start: 02-01-2024 Urine microalbumin profile DTaP,Tdap,Td Vaccine (1 - Tdap) [facility] Comment on above: Postponed from 1973 (Declined at t his time) Start: 01-12-2024 End: 01-12-2024 Patient encounter procedure 01/12/2024 1:00 PM EDT Appointment [facility] CT Scan [address] [place] [address] Yon Quinteros MD [address] [place] [address] [facility] CT Scan Start: 01-08-2024 End: 01-08-2024 Patient encounter procedure 01/08/2024 11:20 AM EDT Appointment [facility] CT Scan [address] [place] [address] [facility] [address] Scan Start: 01-08-2024 Subsequent hospital visit by physician 01/08/2024 11:20 AM EDT Hospital Encounter [facility] CT Scan [address] [place] [phone] [facility] [address] Scan Start: 01-06-2024 End: 10-05-2024 CT Chest WO contrast CT Chest Without Contrast Imaging Routine Lung nodule Expected: 01/06/2024, Expires: 10/05/2024 [facility] Work Phone: Comment on above: Expected: 01/06/2024, Expires: Start: 12-16-2023 End: 12-16-2023 ambulatory 12/16/2023 8:30 AM EDT Visit (SP) Office Hematology/Oncology [address] [place] [address] Monica Jung DO [address] [place] [address] 3MO OV/ LABS 12/11* Hematology/Oncol ogy Comment on above: 3MO OV/ LABS 12/11* Start: 12-13-2023 Colonoscopy COLONOSCOPY [facility] Start: 12-13-2023 COLORECTAL CANCER SCREENING COLORECTAL CANCER SCREENING [facility] Start: 12-12-2023 End: 12-12-2023 ambulatory 12/12/2023 4:45 PM EDT Results Only Marcos Ochoawn [facility] [address] [place] [address] PSA/TESTOSTERONE* [place] [facility] Comment on above: PSA/TESTOSTERONE* Start: 12-07-2023 Covid-19 Vaccine ( season) Covid-19 Vaccine ( season) [facility] Start: 12-07-2023 COVID-19 Vaccine ( season) COVID-19 Vaccine ( season) [facility] Start: 12-07-2023 Influenza vaccination [facility] Start: 12-04-2023 End: 12-04-2023 Patient encounter procedure 12/04/2023 4:20 PM EDT Off ice Visit [facility] Pulmonology [address] [facility], [place] [address] Yon Quinteros MD [address] [place] [address] [facility] Start: 11-26-2023 End: 11-26-2023 Admission to same day surgery center 11/26/2023 8:20 AM EDT - 11/26/2023 8:50 AM EDT Surgery [facility] Endoscopy [address] [place] [address] Sahil Alcantara MD [address] [facility] [address] [place] [address] ESOPHAGOGASTRODUODENOSCOPY [facility] Endoscopy Comment on above: ESOPHAGOGASTRODUODENOSCOPY Start: 11-26-2023 End: 11-26-2023 Esophagogastroduodenoscopy ESOPHAGOGASTRODUODENOSCOPY Gastroesophageal reflux disease, unspecified whether esophagitis present Heartburn 11/26/2023 8:20 AM EDT [facility] Start: 11-26-2023 Subsequent hospital visit by physician [facility]oscopy Start: 11-19-2023 COLORECTAL CANCER SCREENING COLORECTAL CANCER SCREENING [facility] Start: 11-19-2023 FECAL OCCULT BLOOD FECAL OCCULT BLOOD [facility] Start: 11-19-2023 Screening for malignant neoplasm of colon [facility] Start: 11-11-2023 End: 09-29-2024 Prostate specific Ag [Mass/volume] in Serum or Plasma Prostate Specific Antigen Lab Routine Prostate cancer (Multi) Expected: 11/11/2023, Expires: 09/29/2024 [facility] Work Phone: Comment on above: Expected: 11/11/2023, Expires: 5 Start: 11-11-2023 End: 09-29-2024 Testosterone [Mass/volume] in Serum or Plasma Testosterone,Total, LC-MS/MS Lab Routine Prostate cancer (Multi) Expected: 11/11/2023, Expires: 09/29/2024 [facility] Service Area Work Phone: Comment on above: Expected: 11/11/2023, Expires: 5 Start: 11-06-2023 End: 11-06-2023 Patient encounter procedure 11/06/2023 1:00 PM EDT Off ice Visit [facility] [address] [facility] [facility] [address] [facility], 5th [place] [address] Gildardo Foster, [facility] [address] [place] [address] Sahil Alcantara MD [address] [address] [facility] Start: 11-04-2023 End: 11-04-2023 Admission to same day surgery center [facility] Perc Cardiac Interv Comment on above: BRONCHOSCOPY; BAL; APC Start: 11-04-2023 End: 11-04-2023 Bronchoscopy w/transbronchial lung bx 1 lobe [facility] Start: 11-04-2023 Subsequent hospital visit by physician [facility] Cardiac Diagnostic Care Unit Start: 10-30-2023 End: 10-30-2023 Patient encounter procedure 10/30/2023 2:20 PM EDT Off ice Visit [facility] Pulmonology [address] [place] [address] Yon Quinteros MD [address] [place] [address] [facility] Start: 10-30-2023 End: 10-30-2023 Patient encounter procedure 10/30/2023 8:40 AM EDT Off ice Visit [facility] [address] [place] [address] Gildardo Foster, JAMES [address] [place] [address] [facility] Start: 10-26-2023 Pneumococcal Vaccine: 65+ (1 - PCV) Pneumococcal Vaccine: 65+ (1 - PCV) [facility] Comment on above: Postponed from 02/20/1960 (Declined at t his time) Start: 10-26-2023 Pneumococcal Vaccine: 65+ (1 of 2 - PCV) Pneumococcal Vaccine: 65+ (1 of 2 - PCV) [facility] Comment on above: Postponed from 02/20/1960 (Declined at t his time) Start: 10-26-2023 PNEUMOCOCCAL: 65+ (1 - PCV) PNEUMOCOCCAL: 65+ (1 - PCV) [facility] Comment on above: Postponed from 02/20/1960 (Declined at t his time) Start: 10-26-2023 SHINGRIX VACCINE (1 of 2) SHINGRIX VACCINE (1 of 2) [facility] Comment on above: Postponed from 02/20/2004 (Declined at t his time) Start: 10-23-2023 End: 10-23-2023 Patient encounter procedure [facility] Start: 10-15-2023 End: 10-15-2023 Patient encounter procedure 10/15/2023 7:40 AM EDT Off ice Visit [facility] [address] [place] [phone] Gildardo Foster CNP [address] [place] [address] [facility] Start: 10-10-2023 End: 10-10-2023 Patient encounter procedure 10/10/2023 6:30 PM EDT Appointment [facility] CT Scan [address] [place] [phone] [facility] CT Scan Start: 10-05-2023 Influenza vaccination Influenza Vaccine (#1) [place] [facility] Comment on above: Postponed from 12/06/2022 (Declined at t his time) Start: 10-01-2023 End: 10-01-2023 Patient encounter procedure [facility] Imaging Services PET Start: 09-30-2023 End: 09-30-2023 Patient encounter procedure 09/30/2023 1:10 PM EDT Off ice Visit [facility] [address] [facility] 1st [place] [address] [place] [address] [place] [address] [facility] Start: 09-29-2023 End: 09-29-2023 Patient encounter procedure 09/29/2023 11:00 AM EDT Office Visit [facility] [address] [facility] [place] [phone] Frantz Manzo MD [address] [place] [address] [facility] Start: 09-26-2023 End: 09-24-2024 CT Chest WO contrast CT Chest Without Contrast Imaging Routine Lung nodule Expected: 09/26/2023, Expires: 09/24/2024 [employer] Work Phone: Comment on above: Expected: 09/26/2023, Expires: Start: 09-24-2023 End: 09-23-2024 PET+CT Guidance for localization of tumor of Skull base to mid-thigh-- W 18F-FDG IV PET Tumor Imaging With CT Skull To Thigh Imaging Routine Lung nodule Expected: 09/24/2023, Expires: 09/23/2024 [employer] Work Phone: Comment on above: Expected: 09/24/2023, Expires: Start: 09-24-2023 End: 09-24-2023 Patient encounter procedure 09/24/2023 12:20 PM EDT Office Visit [facility] Pulmonology [address] [place] [address] Gildardo Foster, [address] [address] Yon Quinteros MD [facility] [place] [address] [facility] Start: 09-16-2023 End: 09-16-2023 Patient encounter procedure 09/16/2023 9:00 AM EDT Appointment [facility] [address] [place] [address] [place] [address] Isai Bazan PA-C [address] [place] [address] [facility] Start: 09-15-2023 End: 09-15-2023 ambulatory 09/15/2023 9:50 AM EDT Visit (SP) Office Hematology/Oncology [address] [place] [address] Monica Jung DO [address] [place] [address] 3MO OV/ LUPRON TODAY / LABS 09/11* Hematology/Oncol ogy Comment on above: 3MO OV/ LUPRON TODAY / LABS 09/11* Start: 09-12-2023 End: 09-12-2023 ambulatory 09/12/2023 8:30 AM EDT Results Only Marcos Ochoawn [facility] [address] [place] [address] PSA/Testosterone [facility] Comment on above: PSA/Testosterone Start: 09-09-2023 End: 09-09-2023 Patient encounter procedure [facility] Start: 08-22-2023 End: 08-22-2023 Patient encounter procedure 08/22/2023 3:00 PM EDT Appointment [facility] Ultrasound [address] [place] [phone] [facility] Ultrasound Start: 08-15-2023 End: 08-15-2023 Follow-up encounter 08/15/2023 11:30 AM EDT [facility] [address] [place] [address] Alina Bryson APRN.TOOL GRINDER SET UP OPERATOR GEAR [address] [place] [address] Follow up from injection [facility] Comment on above: Follow up from injection Start: 06-13-2023 End: 09-12-2023 Prostate specific Ag [Mass/volume] in Serum or Plasma PSA/PROSTSPECAG DIAG Lab Routine 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) 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) Expected: 06/13/2023, Expires: 09/12/2023 [facility] Work Phone: Comment on above: Expected: 06/13/2023, Expires: Start: 06-06-2023 End: 09-05-2023 Comprehensive metabolic 2000 panel - Serum or Plasma [facility] Work Phone: Comment on above: Expected: 06/06/2023, Expires: Start: 04-07-2023 Advance Directive Discussion Advance Directive Discussion [facility] Start: 04-07-2023 Depression Assessment Depression Assessment [facility] Start: 03-21-2023 End: 03-21-2023 Patient encounter procedure 03/21/2023 11:00 AM EST Office Visit [facility] [address] [facility] [address] [place] [address] Ryan Cohn MD [address] [facility], [address] [place] [address] [facility] Start: 03-10-2023 End: 06-09-2023 CBC W Auto Differential panel - Blood CBC + DIFF Lab STAT 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) 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) Expected: 03/10/2023, Expires: 06/09/2023 [facility] Work Phone: Comment on above: Expected: 03/10/2023, Expires: 4 Start: 03-10-2023 End: 06-09-2023 Comprehensive metabolic 2000 panel - Serum or Plasma COMP METABOLIC PANEL Lab STAT 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) 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) Expected: 03/10/2023, Expires: 06/09/2023 [facility] Work Phone: Comment on above: Expected: 03/10/2023, Expires: 4 Start: 03-10-2023 End: 06-09-2023 Prostate specific Ag [Mass/volume] in Serum or Plasma PSA/PROSTSPECAG DIAG Lab Routine 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) 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) Expected: 03/10/2023, Expires: 06/09/2023 [facility] Work Phone: Comment on above: Expected: 03/10/2023, Expires: 4 Start: 03-10-2023 End: 06-09-2023 Testosterone [Mass/volume] in Serum or Plasma TESTOSTERONE TOTAL Lab Routine 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) 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) Expected: 03/10/2023, Expires: 06/09/2023 [facility] Work Phone: Comment on above: Expected: 03/10/2023, Expires: Start: 02-25-2023 COVID-19 VACCINE (4 - Pfizer series) COVID-19 VACCINE (4 - Pfizer series) [facility] Start: 12-20-2022 COVID-19 Vaccine (3 - Pfizer series) COVID-19 Vaccine (3 - Pfizer series) [facility] Start: 12-20-2022 COVID-19 Vaccine (2022- season) COVID-19 Vaccine ( season) [facility] Start: 12-06-2022 Influenza vaccination [facility] Start: 12-03-2022 FUV, Provider: Juana Scales, Status: Pen, Time: 1:20 PM FUV, Provider: Juana Scales, Status: Pen, Time: 1:20 PM KK-Bpjppyu-Qbfmh [place] Work Phone: Start: 12-02-2022 End: 02-01-2023 Hemoglobin [Mass/volume] in Blood HEMOGLOBIN (HGB) Lab Routine Decreased hemoglobin Expected: 12/02/2022, Expires: 02/01/2023 [facility] Work Phone: Comment on above: Expected: 12/02/2022, Expires: 3 Start: 11-25-2022 End: 01-25-2023 Hematocrit [Volume Fraction] of Blood HEMATOCRIT (HCT) Lab Routine Decreased hemoglobin Expected: 11/25/2022, Expires: 01/25/2023 [facility] Work Phone: Comment on above: Expected: 11/25/2022, Expires: Start: 11-18-2022 POV, Provider: Svitlana Chino, Status: Pen, Time: 1:00 PM POV, Provider: Svitlana Chino, Status: Pen, Time: 1:00 PM GK-Kzruhtj-Jftvy [place] Work Phone: Start: 11-14-2022 SURGAMC, Provider: Juana Scales, Status: Pen, Time: 8:00 AM SURGAMC, Provider: Juana Scales, Status: Pen, Time: 8:00 AM KA-Ukgdxpl-Xabkt [place] Work Phone: Start: 10-30-2022 FUV, Provider: Svitlana Chino, Status: Pen, Time: 8:20 AM FUV, Provider: Svitlana Chino, Status: Pen, Time: 8:20 AM ZH-Nvakigl-Kxinn [place] Work Phone: Start: 10-21-2022 FUV, Provider: Matt Aguilar, Status: Pen, Time: 2:40 PM FUV, Provider: Matt Aguilar, Status: Pen, Time: 2:40 PM XL-Wkzshlm-Njsqc [facility] Work Phone: Start: 10-07-2022 NPV, Provider: Aurea Rubio, Status: Pen, Time: 2:30 PM NPV, Provider: Aurea Rubio, Status: Pen, Time: 2:30 PM [facility] [place] [address] Work Phone: Start: 10-07-2022 FUV, Provider: Matt Aguilar, Status: Pen, Time: 2:00 PM FUV, Provider: Matt Aguilar, Status: Pen, Time: 2:00 PM [facility] Work Phone: Start: 10-07-2022 FUV, Provider: Matt Aguilar, Status: Pen, Time: 9:20 AM FUV, Provider: Matt Aguilar, Status: Pen, Time: 9:20 AM IH-Mifvjkg-Pltjt a Work Phone: Start: 10-01-2022 DOPPLERPEN, Provider: Juana Scales, Status: Pen, Time: 9:30 AM DOPPLERPEN, Provider: Juana Scales, Status: Pen, Time: 9:30 AM KC-Yluqkxq-Skipu [place] Work Phone: Start: 09-11-2022 NEWPROB, Provider: Sanket Burgess, Status: Pen, Time: 3:30 PM NEWPROB, Provider: Sanket Burgess, Status: Pen, Time: 3:30 PM TF-Wvuthhy-Hyndk [place] Work Phone: Start: 09-11-2022 CYSTOSCOPY, Provider: Juana Scales, Status: Pen, Time: 8:50 AM CYSTOSCOPY, Provider: Juana Scales, Status: Pen, Time: 8:50 AM PR-Vthbkrj-Mkreb [facility] Work Phone: Start: 09-10-2022 NPV, Provider: Dominic Webber, Status: Pen, Time: 10:30 AM NPV, Provider: Dominic Webber, Status: Pen, Time: 10:30 AM HR-Dsnrins-Ingmm [place] Work Phone: Start: 04-07-2022 ADVANCE DIRECTIVE DISCUSSION ADVANCE DIRECTIVE DISCUSSION [facility] Start: 04-07-2022 DEPRESSION ASSESSMENT DEPRESSION ASSESSMENT [facility] Start: 2019 Abdominal aortic aneurysm screening Abdominal Aortic Aneurysm (AAA) Screening [facility] Start: 2019 Fall risk assessment Falls Risk Assessment [facility] Start: 2019 PNEUMOCOCCAL: 65+ (1 - PCV) PNEUMOCOCCAL: 65+ (1 - PCV) [facility] Start: 02-05-2019 Medicare Annual Wellness Visit Medicare Annual Wellness Visit [facility] Start: 2014 Respiratory Syncytial Virus Immunization: Risk, 60-74 Risk, or 75+ (1 - Risk 60-74 years 1-dose series) Respiratory Syncytial Virus Immunization: Risk, 60-74 Risk, or 75+ (1 - Risk 60-74 years 1-dose series) [facility] Start: 2014 RSV High Risk: (Elderly (60+) or Population) (1 - Risk 60-74 years 1-dose series) RSV High Risk: (Elderly (60+) or Population) (1 - Risk 60-74 years 1-dose series) [facility] Start: 2014 RSV patients and/or patients aged 60+ years (1 - 1-dose 60+ series) RSV patients and/or patients aged 60+ years (1 - 1-dose 60+ series) [facility] Start: 2014 RSV Vaccine (1 - Risk 60-74 years 1-dose series) RSV Vaccine (1 - Risk 60-74 years 1-dose series) [facility] Start: 2009 PROSTATE CANCER SCREENING DISCUSSION PROSTATE CANCER SCREENING DISCUSSION [facility] Start: 02-20-2004 Influenza vaccination LUNG CANCER SCREENING [facility] Start: 02-20-2004 Screening for malignant neoplasm of colon Flexible sigmoidoscopy [facility] Start: 02-20-2004 Screening for malignant neoplasm of lung Lung Cancer Screening [facility] Start: 02-20-2004 SHINGRIX VACCINE (1 of 2) SHINGRIX VACCINE (1 of 2) [facility] Start: 02-20-2004 Zoster Vaccines (1 of 2) Zoster Vaccines (1 of 2) [facility] Start: 1999 COLOGUARD (FIT-DNA) COLOGUARD (FIT-DNA) [facility] Start: 1999 Colonoscopy COLONOSCOPY [facility] Start: 1999 COLORECTAL CANCER SCREENING COLORECTAL CANCER SCREENING [facility] Start: [address] COLONOGRAPHY [facility] Start: 1999 FECAL OCCULT BLOOD FECAL OCCULT BLOOD [facility] Start: 1999 Screening for malignant neoplasm of colon [facility] Start: 1999 SIGMOIDOSCOPY SIGMOIDOSCOPY [facility] Start: 1989 LIPID SCREEN LIPID SCREEN [facility] Start: 02-20-1976 DTaP/Tdap/Td Vaccines (1 - Tdap) DTaP/Tdap/Td Vaccines (1 - Tdap) [facility] Start: 1973 Shingrix Vaccine (1 of 2) Shingrix Vaccine (1 of 2) [facility] Start: 1973 Urine microalbumin profile [facility] Start: 02-20-1972 Anxiety Screening Anxiety Screening [facility] Start: 02-20-1972 BP Controlled (<130/80) BP Controlled (<130/80) [facility] Start: 02-20-1972 Depression Screening Depression Screening [facility] Start: 02-20-1972 Diabetes mellitus screening Diabetes Screening [facility] Start: 02-20-1972 HEPATITIS C SCREENING HEPATITIS C SCREENING [facility] Start: 02-20-1972 Hepatitis C screening Hepatitis C Screening [facility] Start: 02-20-1972 Spirometry Spirometry [facility] Start: 1966 Depression screening using PHQ-9 (Patient Health Questionnaire 9) score Depression Screening (PHQ-2/9) [facility] Start: 02-20-1960 Pneumococcal Vaccine: 65+ Years (1 - PCV) Pneumococcal Vaccine: 65+ Years (1 - PCV) [facility] Start: 1957 History and physical examination, annual for health maintenance Wellness Visit [facility] Start: 1957 Medicare Wellness Visit Medicare Wellness Visit [facility] Start: 1954 COVID-19 VACCINE (#1) COVID-19 VACCINE (#1) [facility] Start: 1954 ABDOMINAL AORTIC ANEURYSM SCREENING ABDOMINAL AORTIC ANEURYSM SCREENING [facility] Start: 1954 Abdominal aortic aneurysm screening [facility] Start: 1954 Lipid panel Lipid Panel [facility] Start: 1954 Medicare Annual Wellness Visit Medicare Annual Wellness Visit (AWV) [facility] Start: 1954 Prostate specific antigen measurement PSA Level [facility] Start: 1954 Screening for malignant neoplasm of colon [facility] Arthrocentesis aspir &/inj major jt/bursa w/o us DRAIN/INJECT LARGE JOINT/BURSA Procedures Routine Trochanteric bursitis of left hip Ordered: 05/31/2024 [facility] Work Phone: Comment on above: Ordered: 05/31/2024 End: 10-16-2025 BD DXA TRABECULAR BONE SCORE (TBS) BD DXA TRABECULAR BONE SCORE (TBS) Radiology Routine Malignant neoplasm of prostate metastatic to bone (HCC) Prostate cancer metastatic to bone (HCC) Vitamin D deficiency 1 Occurrences starting 09/16/2024 until 10/16/2025 [facility] Comment on above: 1 Occurrences starting 09/16/2024 until 10/16/2025 End: 10-29-2024 Comprehensive metabolic 2000 panel - Serum or Plasma Comprehensive Metabolic Panel Lab Routine Mixed hyperlipidemia 1 Occurrences starting 10/30/2023 until 10/29/2024 [facility] Work Phone: Comment on above: 1 Occurrences starting 10/30/2023 until 10/29/2024 End: 08-11-2024 CT Chest for screening WO contrast CT Lung Cancer Screening Imaging Routine Nicotine use disorder 1 Occurrences starting 08/12/2023 until 08/11/2024 [facility] Work Phone: Comment on above: 1 Occurrences starting 08/12/2023 until 08/11/2024 Dstr nrolytc agnt pa rverteb fct addl lmbr/sacral DSTR NROLYTC AGNT PARVERTEB FCT ADDL LMBR/SACRAL Procedures Routine Lumbar spondylosis Ordered: 07/16/2023 [facility] Work Phone: Comment on above: Ordered: 07/16/2023 Dstr nrolytc agnt pa rverteb fct sngl lmbr/sacral DSTR NROLYTC AGNT PARVERTEB FCT SNGL LMBR/SACRAL Procedures Routine Lumbar spondylosis Ordered: 07/16/2023 [facility] Work Phone: Comment on above: Ordered: 07/16/2023 End: 10-16-2025 DXA Skeletal system.axial Views for bone density DXA-AXIAL SKELETON Radiology Routine Malignant neoplasm of prostate metastatic to bone (HCC) Prostate cancer metastatic to bone (HCC) Vitamin D deficiency Other specified disorders of bone density and structure, multiple sites 1 Occurrences starting 09/16/2024 until 10/16/2025 [facility] Work Phone: Comment on above: 1 Occurrences starting 09/16/2024 until 10/16/2025 End: 11-03-2024 Echocardiography Echocardiogram complete Echocardiography Routine Ascending aorta dilatation (HCC) Hypertension, unspecified type Abnormal CT scan Aneurysm of the aortic arch, 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) 1 Occurrences starting 09/04/2023 until 11/03/2024 [facility] Work Phone: Comment on above: 1 Occurrences starting 09/04/2023 until 11/03/2024 Esophagogastroduodenoscopy ESOPH AGOGASTRODUODENOSCOPY Gastroesophageal reflux disease, unspecified whether esophagitis present Heartburn [facility] End: 10-29-2024 Lipid 1996 panel - Serum or Plasma Lipid Panel Lab Routine Mixed hyperlipidemia 1 Occurrences starting 10/30/2023 until 10/29/2024 [facility] Comment on above: 1 Occurrences starting 10/30/2023 until 10/29/2024 MR Hip - left WO and W contrast IV MRI HIP WO/W IVCON LEFT Radiology Routine Malignant neoplasm of prostate metastatic to bone (HCC) Bilateral hip pain 09/14/2024 4:27 PM EDT [facility] Work Phone: Njx dx/ther agt pvrt facet jt lmbr/sac 1 level NJX DX/THER AGT PVRT FACET JT LMBR/SAC 1 LEVEL Procedures Routine Lumbar spondylosis Ordered: 05/21/2023 [facility] Work Phone: Comment on above: Ordered: 05/21/2023 Njx dx/ther agt pvrt facet jt lmbr/sac 1 level NJX DX/THER AGT PVRT FACET JT LMBR/SAC 1 LEVEL Procedures Routine Lumbar spondylosis Ordered: 06/04/2023 [facility] Work Phone: Comment on above: Ordered: 06/04/2023 Njx dx/ther agt pvrt facet jt lmbr/sac 2nd level NJX DX/THER AGT PVRT FACET JT LMBR/SAC 2ND LEVEL Procedures Routine Lumbar spondylosis Ordered: 05/21/2023 [facility] Work Phone: Comment on above: Ordered: 05/21/2023 Njx dx/ther agt pvrt facet jt lmbr/sac 2nd level NJX DX/THER AGT PVRT FACET JT LMBR/SAC 2ND LEVEL Procedures Routine Lumbar spondylosis Ordered: 06/04/2023 [facility] Work Phone: Comment on above: Ordered: 06/04/2023 Njx dx/ther sbst int rlmnr lmbr/sac w/img gdn EPI LUMBAR OR SACRAL W/IMAGING Procedures Routine Lumbar radiculopathy Ordered: 04/26/2024 [facility] Work Phone: Comment on above: Ordered: 04/26/2024 Njx dx/ther sbst int rlmnr lmbr/sac w/img gdn EPI LUMBAR OR SACRAL W/IMAGING Procedures Routine Lumbar radiculopathy Ordered: 08/16/2024 [facility] Work Phone: Comment on above: Ordered: 08/16/2024 End: 04-27-[address] prostate [facility] Service Area Work Phone: Comment on above: Once for 1 Occurrences starting 04/27/19 until 04/27/2024 OXIMETRY - NOCTURNAL OXIMETRY - NOCTURNAL Procedures Routine Asthma-COPD overlap syndrome (HCC) Ordered: 09/24/2024 [facility] Work Phone: Comment on above: Ordered: 09/24/2024 End: 04-15-2024 Radex spine lumbosacral 2/3 views XR LUMBAR GENERAL 3V AP/LAT/L5-S1 Radiology Routine Chronic bilateral low back pain with bilateral sciatica 1 Occurrences starting 03/17/2023 until 04/15/2024 [facility] Work Phone: Comment on above: 1 Occurrences starting 03/17/2023 until 04/15/2024 Radex spine lumbosac ral 2/3 views XR LUMBAR GENERAL 3V AP/LAT/L5-S1 Radiology Routine Chronic bilateral low back pain with bilateral sciatica 03/17/2023 1:13 PM EST [facility] Work Phone: End: 03-01-2024 SPIROMETRY - BASELINE AND POST DILATOR SPIROMETRY - BASELINE AND POST DILATOR PFT Routine Chronic obstructive pulmonary disease, unspecified COPD type (HCC) 1 Occurrences starting 01/31/2023 until 03/01/2024 [facility] Work Phone: Comment on above: 1 Occurrences starting 01/31/2023 until 03/01/2024 End: 04-24-2025 Stress test only, exercise Stress test only, exercise Cardiac Services Routine Atypical chest pain 1 Occurrences starting 02/23/2024 until 04/24/2025 [facility] Work Phone: Comment on above: 1 Occurrences starting 02/23/2024 until 04/24/2025 End: 10-29-2024 Thyrotropin [Units/volume] in Serum or Plasma TSH with Reflex Free T4 Lab Routine Essential hypertension Gastroesophageal reflux disease, unspecified whether esophagitis present 1 Occurrences starting 10/30/2023 until 10/29/2024 [facility] Comment on above: 1 Occurrences starting 10/30/2023 until 10/29/2024 End: 08-11-2024 US Kidney - bilateral and Urinary bladder US Renal and Bladder Imaging Routine Essential hypertension 1 Occurrences starting 08/12/2023 until 08/11/2024 [facility] Comment on above: 1 Occurrences starting 08/12/2023 until 08/11/2024 End: 09-18-2025 US Kidney - bilateral and Urinary bladder US KIDNEY/BLADDER Radiology Routine YADIEL (acute kidney injury) Malignant neoplasm of prostate metastatic to bone (HCC) 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) 1 Occurrences starting 08/19/2024 until 09/18/2025 [facility] Work Phone: Comment on above: 1 Occurrences starting 08/19/2024 until 09/18/2025 US Kidney - bilatera l and Urinary bladder US KIDNEY/BLADDER Radiology Routine YADIEL (acute kidney injury) Malignant neoplasm of prostate metastatic to bone (HCC) 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) 08/23/2024 1:38 PM EDT [facility] Work Phone: End: 03-31-2025 XR Chest PA and Lateral XR CHEST 2V FRONTAL/LAT Radiology STAT Acute cough COPD with exacerbation (HCC) 1 Occurrences starting 03/01/2024 until 03/31/2025 [facility] Work Phone: Comment on above: 1 Occurrences starting 03/01/2024 until 03/31/2025 End: 09-14-2024 XR Chest PA and Lateral and AP lateral-decubitus XR Chest AP/PA and LAT Imaging Routine Hemoptysis 1 Occurrences starting 09/15/2023 until 09/14/2024 [facility] Work Phone: Comment on above: 1 Occurrences starting 09/15/2023 until 09/14/2024 XR Chest PA and Late ral and AP lateral-decubitus XR Chest AP/PA and LAT Imaging Routine Hemoptysis 09/15/2023 1:49 PM EDT [facility] End: 04-15-2024 XR HIP BILATERAL 5V PEL/AP/LAT EACH HIP XR HIP BILATERAL 5V PEL/AP/LAT EACH HIP Radiology Routine Bilateral hip pain 1 Occurrences starting 03/17/2023 until 04/15/2024 [facility] Work Phone: Comment on above: 1 Occurrences starting 03/17/2023 until 04/15/2024 XR HIP BILATERAL 5V PEL/AP/LAT EACH HIP XR HIP BILATERAL 5V PEL/AP/LAT EACH HIP Radiology Routine Bilateral hip pain 03/17/2023 1:13 PM EST [facility] Work Phone: End: 06-12-2025 XR Pelvis and Hip - left AP and Lateral frog XR HIP GENERAL 3V PELV/AP/LAT LEFT Radiology Routine Pain in left hip 1 Occurrences starting 05/13/2024 until 06/12/2025 [facility] Work Phone: Comment on above: 1 Occurrences starting 05/13/2024 until 06/12/2025 XR Pelvis and Hip - left AP and Lateral frog XR HIP GENERAL 3V PELV/AP/LAT LEFT Radiology Routine Pain in left hip 05/13/2024 10:03 AM EST [facility] Immunizations Immunization Date Immunization Notes Care Provider Eliecer gaston 06-11-2023 Pneumococcal Conjuga te 20-Valent (Prevnar 20) Gildardo Foster [facility] Work Phone: [facility] 06-11-2023 tetanus toxoid, reduced diphtheria toxoid, and acellular pertussis vaccine, adsorbed Gildardo Kristin [facility] Work Phone: [facility] 10-25-2022 Pfizer COVID-19 Vac Bivalent 30 MCG/0.3ML Intramuscular Suspension Referring Provider Unknown [facility] 07-14-2020 Pfizer-BioNTech COVID-19 Vacc 30 MCG/0.3ML Intramuscular Suspension Referring Provider Unknown [facility] Work Phone: 06-23-2020 Pfizer-BioNTech COVID-19 Vacc 30 MCG/0.3ML Intramuscular Suspension Referring Provider Unknown [facility] Work Phone: Payers Date Payer Category Payer Medicare [id number] 2022 [facility] [employer] [id number] 2022 [facility] (Indemnity or Managed Care) - Out of State [id number] 2022 [employer] Managed Care [facility] [id number] 2022 Unknown 2022 Unknown [id number] 2019 Medicare [id number]. [id number] 2019 Medicare [id number] 1954 Unknown [id number] 2.16.840.1.129119.3.579. 2.693 1954 Unknown [id number] 2.16.840.1.453888.3.579. 2.693 1954 Unknown [id number] 2.16.840.1.885030.3.579. 2.356 1954 Unknown [id number] 2.16.840.1.231010.3.579. 2. 1954 Unknown [id number] 2.16.840.1.416632.3.579. 2. 1954 Unknown [id number] 2.16.840.1.568787.3.579. 2.356 1954 Unknown [id number] 2.16.840.1.798479.3.579. 2. 1954 Unknown [id number] 2.16.840.1.367897.3.579. 2.356 1954 Unknown [id number] 2.16.840.1.838623.3.579. 2. 1954 Unknown [id number] 2.16.840.1.463157.3.579. 2.356 1954 Unknown [id number] 2.16.840.1.913870.3.579. 2. 1954 Unknown [id number] 2.16.840.1.219035.3.579. 2. 1954 Unknown [id number] 2.16.840.1.608557.3.579. 2.356 1954 Unknown [id number] 2.16.840.1.322835.3.579. 2.356 1954 Unknown [id number] 2.16.840.1.294103.3.579. 2.356 1954 Unknown [id number] 2.16.840.1.897506.3.579. 2.356 1954 Unknown [id number] 2.16.840.1.110221.3.579. 2.356 1954 Unknown [id number] 2.16.840.1.123251.3.579. 2.356 1954 Unknown [id number] 2.16.840.1.955484.3.579. 2. 1954 Unknown [id number] 2.16.840.1.153898.3.579. 2.356 1954 Unknown [id number] 2.16.840.1.172110.3.579. 2.356 1954 Unknown [id number] 2.16.840.1.897313.3.579. 2.356 1954 Unknown [id number] 2.16.840.1.455213.3.579. 2.356 1954 Unknown [id number] 2.16.840.1.565997.3.579. 2.356 1954 Unknown [id number] 2.16.840.1.953031.3.579. 2.356 1954 Unknown [id number] 2.16.840.1.969961.3.579. 2.1242 1954 Unknown [id number] 2.16.840.1.738394.3.579. 2.903 1954 Unknown [id number] 2.16.840.1.434816.3.579. 2.903 1954 Unknown [id number] 2.16.840.1.955920.3.579. 2.3 1954 Unknown [id number] 2.16.840.1.413843.3.579. 2. 1954 Unknown [id number] 2.16.840.1.710183.3.579. 2. 1954 Unknown [id number] 2.16.840.1.608517.3.579. 2. 1954 Unknown [id number] 2.16.840.1.358679.3.579. 2. 1954 Unknown [id number] 2..840.1.545107.3.579. 2. 1954 Unknown [id number] 2..840.1.342420.3.579. 2. 1954 Unknown [id number] 2.840.1.104356.3.579. 2. 1954 Unknown [id number] 2..840.1.537046.3.579. 2.1244 1954 Unknown [id number] 2.840.1.749006.3.579. 2.1244 1954 Unknown [id number] 2.840.1.127191.3.579. 2.1244 1954 Unknown [id number] 2..840.1.572817.3.579. 2.1244 1954 Unknown [id number] 2..840.1.633330.3.579. 2.1244 1954 Unknown [id number] 2.16.840.1.285108.3.579. 2.1244 1954 Unknown [id number] 2.16.840.1.623664.3.579. 2.1244 1954 Unknown [id number] 2.16.840.1.594082.3.579. 2.5 1954 Unknown [id number] 2.16.840.1.303538.3.579. 2.5 1954 Unknown [id number] 2.16.840.1.987949.3.579. 2.903 1954 Unknown [id number] 2.16.840.1.956977.3.579. 2. 1954 Unknown [id number] 2.16.840.1.636054.3.579. 2.90 1954 Unknown [id number] 2.16.840.1.208933.3.579. 2. 1954 Unknown [id number] 2.16.840.1.857360.3.579. 2. 1954 Unknown [id number] 2.16.840.1.963235.3.579. 2. 1954 Unknown [id number] 2.16.840.1.708267.3.579. 2. 1954 Unknown [id number] 2.16.840.1.462638.3.579. 2. 1954 Unknown [id number] 2.16.840.1.778526.3.579. 2. 1954 Unknown [id number] 2.16.840.1.668858.3.579. 2. 1954 Unknown [id number] 2.16.840.1.250583.3.579. 2. 1954 Unknown [id number] 2.16.840.1.163909.3.579. 2. 1954 Unknown [id number] 2.16.840.1.567865.3.579. 2.90 Social History Date Type Detail Facility Start: 10-25-2022 End: 07-05-2024 Smoking addiction Smoking addiction [facility] Work Phone: Start: 09-20-2022 Tobacco smoking status MDIS Tobacco smoking consumption unknown [facility] Start: 1955 Sex Assigned At Not on file [facility] Start: 10-25-2022 End: 08-27-2024 Tobacco smoking status NHIS Smokes tobacco daily [facility] Start: 04-07-1964 History of tobacco use Cigarette Smoker [facility] Start: 10-25-2022 End: 08-27-2024 Tobacco use and exposure Smokeless tobacco non-user [facility] Start: 11-18-2022 End: 09-14-2024 Alcohol intake Current drinker of alcohol (finding) [facility] Start: 11-18-2022 End: 07-05-2024 Tobacco use panel [facility] Work Phone: Start: 06-03-2022 How hard is it for you to pay for the very basics like food, housing, medical care, and heating Not hard at all [facility] Work Phone: (I/We) worried venecia castillo (my/our) food would run out before (I/we) got money to buy more. Never true [facility] Work Phone: In the past 12 month s, was there a time when you were not able to pay the mortgage or rent on time? No [facility] Work Phone: Start: 10-25-2022 Alcohol Comment occasionaly [facility] Start: 1955 Sex Assigned At Male [facility] Start: 12-10-2022 Gender identity Identifies as male gender (finding) [facility] Start: 12-10-2022 Sexual orientation Heterosexual (finding) [facility] Start: 01-24-2023 End: 04-27-2024 Exposure to SARS-CoV-2 (event) Not sure [facility] Start: 02-06-2023 Tobacco Comment Currently smoking 04/08 ppd 02/06/2023 [facility] Are you now , , , , never or living with a partner? [facility] How often to you hav e a drink containing alcohol? Monthly or less [facility] How many standard drinks containing alcohol do you have on a typical day? 1 or 2 [facility] How often do you hav e 6 or more drinks on 1 occasion? Never [facility] Do you feel stress - tense, restless, nervous, or anxious, or unable to sleep at night because your mind is troubled all the time - these days [OSQ] Only a little [facility] Start: 06-16-2023 Tobacco Comment Pt has cut back to 1/2 pack daily. [facility] Start: 08-12-2023 Alcohol Comment 1-2/year [facility] Start: 09-24-2023 End: 07-07-2024 Alcohol intake Ex-drinker (finding) [facility] Start: 09-24-2023 Tobacco Comment 1/2 PPD 09/24/2023 [facility] Start: 09-24-2023 Alcohol Comment 1-2/year 09/24/2023 [facility] Start: 10-23-2023 Tobacco Comment 1/2 PPD 09/24/2023, 1/2 PPD--10/23/2023 [facility] Start: 12-04-2023 Tobacco Comment 1/2 PPD 09/24/2023, 1/2 PPD--10/23/2023, 12/04/23 [facility] History of tobacco use Passive smoker [facility] Work Phone: Start: 07-07-2024 Tobacco Comment 1/2 PPD 09/24/2023, 1/2 PPD--10/23/2023, 12/04/23, 1/2 PPD 07/07/24, [facility] Start: 07-07-2024 Alcohol Comment 1-2/year 09/24/2023, 07/07/24, [facility] How hard is it for y ou to pay for the very basics like food, housing, medical care, and heating Not very hard [facility] Clinical Notes 06-12-2022 to 10-29-2024 Shayna Bhatia - 10/29/2024 10:19 AM Chelsea Cox LPN - 10/25/2024 8:39 AM Monica Arce DO - 10/25/2024 8:28 AM Adiel Davis OD - 10/19/2024 10:27 AM EDTPatient Instructions Note Date & Type Note Facility 10-29-2024 History of Present illness Narrative [facility]ill Assessment Medication(s): Xtandi 80mg Patient's current medication list and adherence status to current therapy were reviewed by Specialty Pharmacy clinical pharmacist to identify any new drug interactions or non-compliance to therapy. Therapy continues to be appropriate for disease, patient response, and medical condition. Verification of therapeutic benefit and effectiveness with current therapy was completed. Adverse events, barriers in adherence, and side effects were assessed and addressed if applicable. Will proceed with refill with no changes in therapy - patient progressing towards achieving therapeutic goals based on medication-specific laboratory parameters, disease state markers and outcomes. Office/provider notes have been reviewed prior to dispensing the medication. 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 Patient confirmed: Yes Med/dose confirmed: Yes Supplies needed: No supplies needed Missed doses: No Estimated days supply on hand: 9 Copay amount: 0 Payment confirmed: Yes Delivery method: FedEx Signature required: Waived on patient request Delivery address: [address], [place], [address] Delivery date: 11/02/24 (Aware of labs on 11/02, but stated that she would be home all day Friday to get package.) Questions or concerns for the pharmacist?: No Did you have any side effects believed to be related to this medication, that resulted in hospitalization?: No Current Outpatient Medications on File Prior to Visit Medication Sig meloxicam (MOBIC) 15 mg tablet Take 1 tablet by mouth once daily. dexAMETHasone (DECADRON) 1 mg tablet Take 1 mg by mouth daily with breakfast. apocgaquuts-jaieukkxn-rgvbjqoy (TRELEGY ELLIPTA) 200-62.5-25 mcg inhalation powder Inhale 1 puff as instructed once daily. amLODIPine (NORVASC) 5 mg tablet Take 1 tablet by mouth once daily. omeprazole (PRILOSEC) 40 mg capsule Take 1 capsule by mouth two times a day. lisinopril (ZESTRIL) 40 mg tablet Take 1 tablet by mouth once daily. famotidine (PEPCID) 40 mg tablet Take 1 tablet by mouth once daily. senna (SENOKOT) 8.6 mg tab Take 1 tablet by mouth two times a day. atorvastatin (LIPITOR) 40 mg tablet Take 1 tablet by mouth daily at bedtime. For cholesterol. atenolol (TENORMIN) 50 mg tablet Take one tablet daily along with 25 mg tablet to equal 75 mg daily atenolol (TENORMIN) 25 mg tablet Take one tablet daily along with the 50 mg tablet to equal 75 mg daily albuterol HFA (VENTOLIN HFA) 90 mcg/actuation inhaler Inhale 2 puffs as instructed every 4 hours as needed for wheezing/shortness of breath. pregabalin (LYRICA) 150 mg capsule Take 1 capsule by mouth three times a day for 120 days. enzalutamide (XTANDI) 80 mg tablet Take 2 tablets (160 mg) by mouth once daily. cyclobenzaprine (FLEXERIL) 10 mg tablet Take 1 tablet by mouth as directed. 1/2 to 1 tablet po qhs as needed for spasm acetaminophen (TYLENOL EXTRA STRENGTH) 500 mg tablet Take 1,000 mg by mouth every 8 hours as needed. aspirin, enteric coated (ASPIRIN, ENTERIC COATED) 81 mg EC tablet Take 81 mg by mouth once daily. cholecalciferol (VITAMIN D-3) 50 mcg (2,000 unit) tablet Take 2,000 Units by mouth once daily. beta-carotene,A,-vits C,E/mins (OCUVITE ORAL) Take 1 tablet by mouth once daily. calcium carbonate (CALCIUM 600 ORAL) Take 1 tablet by mouth once daily. Multivitamin capsule Take 1 capsule by mouth once daily. No current facility-administered medications on file prior to visit. [facility] RX SPECIALTY CLINICAL ASSESSMENT - HEMATOLOGY ONCOLOGY V6: Assessment to use: Refill Date of influenza vaccination reminder: 09/09/2024 Date of most recent vaccination assessment: 09/09/2024 Treatment Plan Information: Diagnosis: metastatic castration sensitive prostate cancer (LN+) Previous treatment(s): - Radical prostatectomy in April 2021 - 4 weeks of RT with Lupron in 2021 - topped d/t SEs. - PSA undetectable in June 2022 (presumably from Lupron) - RT + ADT Tx Plan: Xtandi + Eligard (ADT) - Next Eligard due in October 2024 Starting Dose/Titration: Xtandi 160 mg once daily orally Administration: Administer at the same time each day, either with or without food. Side Effects/Warnings: include but are not limited to ischemic heart disease, falls/fractures, hypersensitivity, PRES (manifesting as CORTEZ, seizure, lethargy, confusion, blindness), seizures, hyperglycemia, cytopenias, fatigue Monitoring: - CBC with differential and liver function tests (baseline and periodic) - Additional INR monitoring (if on warfarin) - Blood pressure (baseline and periodic) - Monitor for signs/symptoms of ischemic heart disease, posterior reversible encephalopathy syndrome, and seizure; evaluate fall and fracture risk. - Monitor adherence. Drug-Drug Interactions: - Category C interactions with atorvastatin and omeprazole. Xtandi may decrease concentration of both. Monitor for reduced effectiveness Est. Tx Plan Start Date: No information available Estimated Start Date Info: Per Dr. Jung's discretion Est. Estimated Treatment Duration: Until disease progression or unacceptable toxicity Shayna Bhatia documented in this encounter [facility] 10-29-2024 Note HNO ID: [id number] Author: CHIQUITA LOCO RPh Service: ? Author Type: ? Type: Progress Notes Filed: 10/30/2024 11:53 Note Text: [facility] Specialty Refill Assessment Medication(s): Xtandi 80mg Reviewed OV note on 10/25/24. Labs reviewed. Plan to continue Xtandi. PSA 0.02 (down from 0.33 on 08/19/24), Testosterone <12 Next clinic visit scheduled 01/17/25. ALLERGIES Allergen Reactions Morphine Rash, Itching Prednisone Mental Status Change Patient's current medication list and adherence status to current therapy were reviewed by Specialty Pharmacy clinical pharmacist to identify any new drug interactions or non-compliance to therapy. Therapy continues to be appropriate for disease, patient response, and medical condition. Verification of therapeutic benefit and effectiveness with current therapy was completed. Adverse events, barriers in adherence, and side effects were assessed and addressed if applicable. Will proceed with refill with no changes in therapy - patient progressing towards achieving therapeutic goals based on medication-specific laboratory parameters, disease state markers and outcomes. Office/provider notes have been reviewed prior to dispensing the medication. Chiquita Loco, PharmD, BCOP Clinical Pharmacist, Oncology [facility] P: , F: Pool: P [facility] ONCOL[facility] Pool #: [id number] 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 Patient confirmed: Yes Med/dose confirmed: Yes Supplies needed: No supplies needed Missed doses: No Estimated days supply on hand: 9 Copay amount: 0 Payment confirmed: Yes Delivery method: FedEx Signature required: Waived on patient request Delivery address: [address], [place], [address] Delivery date: 11/02/24 (Aware of labs on 11/02, but stated that she would be home all day Friday to get package.) Questions or concerns for the pharmacist?: No Did you have any side effects believed to be related to this medication, that resulted in hospitalization?: No Current Outpatient Medications on File Prior to Visit Medication Sig meloxicam (MOBIC) 15 mg tablet Take 1 tablet by mouth once daily. dexAMETHasone (DECADRON) 1 mg tablet Take 1 mg by mouth daily with breakfast. aoaiduodolt-ztjgqivfv-bflkyaxe (TRELEGY ELLIPTA) 200-62.5-25 mcg inhalation powder Inhale 1 puff as instructed once daily. amLODIPine (NORVASC) 5 mg tablet Take 1 tablet by mouth once daily. omeprazole (PRILOSEC) 40 mg capsule Take 1 capsule by mouth two times a day. lisinopril (ZESTRIL) 40 mg tablet Take 1 tablet by mouth once daily. famotidine (PEPCID) 40 mg tablet Take 1 tablet by mouth once daily. senna (SENOKOT) 8.6 mg tab Take 1 tablet by mouth two times a day. atorvastatin (LIPITOR) 40 mg tablet Take 1 tablet by mouth daily at bedtime. For cholesterol. atenolol (TENORMIN) 50 mg tablet Take one tablet daily along with 25 mg tablet to equal 75 mg daily atenolol (TENORMIN) 25 mg tablet Take one tablet daily along with the 50 mg tablet to equal 75 mg daily albuterol HFA (VENTOLIN HFA) 90 mcg/actuation inhaler Inhale 2 puffs as instructed every 4 hours as needed for wheezing/shortness of breath. pregabalin (LYRICA) 150 mg capsule Take 1 capsule by mouth three times a day for 120 days. enzalutamide (XTANDI) 80 mg tablet Take 2 tablets (160 mg) by mouth once daily. cyclobenzaprine (FLEXERIL) 10 mg tablet Take 1 tablet by mouth as directed. 1/2 to 1 tablet po qhs as needed for spasm acetaminophen (TYLENOL EXTRA STRENGTH) 500 mg tablet Take 1,000 mg by mouth every 8 hours as needed. aspirin, enteric coated (ASPIRIN, ENTERIC COATED) 81 mg EC tablet Take 81 mg by mouth once daily. cholecalciferol (VITAMIN D-3) 50 mcg (2,000 unit) tablet Take 2,000 Units by mouth once daily. beta-carotene,A,-vits C,E/mins (OCUVITE ORAL) Take 1 tablet by mouth once daily. calcium carbonate (CALCIUM 600 ORAL) Take 1 tablet by mouth once daily. Multivitamin capsule Take 1 capsule by mouth once daily. No current facility-administered medications on file prior to visit. [facility] RX SPECIALTY CLINICAL ASSESSMENT - HEMATOLOGY ONCOLOGY V6: Ivent complete: No Assessment to use: Refill Lab monitoring inclusive of CBC, Chem-7, and other labs as pertinent for therapy: Yes Chemo cycle timing assessment: N/A Assessment of injection issues: N/A Current medication list (including drug interaction assessment): Yes Experience of adverse reactions to the medication: Yes Date of influenza vaccination reminder: 09/09/2024 Date of most recent vaccination assessment: 09/09/2024 Treatment Plan Information: Diagnosis: metastatic castration sensitive prostate cancer (LN+) Previous treatment(s): - Radical prostatectomy in April 2021 - 4 weeks of RT with Lupron in 2021 - topped d/t SEs. - PSA undetectable in June 2022 (presumably from Lupron) - RT + ADT Tx Plan: Xtandi + Eligard (ADT) - Next Eligard due in October 2024 Starting Do (more content not included)... [facility] 10-25-2024 Note HNO ID: [id number] Author: CHELSEA CAZARES LPN Service: ? Author Type: LICENSED NURSE Type: Progress Notes Filed: 10/25/2024 08:41 Note Text: Patient here for injection of Eligard. Given SQ in LLQ. Patient tolerated well. For all other information regarding today, see today's OV note with Dr Jung. Chelsea Cazares LPN [facility] 10-25-2024 History of Present illness Narrative Patient here for injection of Eligard. Given SQ in LLQ. Patient tolerated well. For all other information regarding today, see today's OV note with Dr Jung. Chelsea Cazares LPN documented in this encounter [facility] 10-25-2024 Note HNO ID: [id number] Author: MONICA JUNG, DO Service: ? Author Type: Physician Type: Progress Notes Filed: 10/25/2024 08:47 Note Text: Oncologic problem(s): 1) Castrate sensitive prostate cancer. HPI: The patient is a 69-year-old male with past medical history significant for hyperlipidemia, hypertension, moderate COPD, GERD, previous cervical spine surgery, chronic low back pain and prostate cancer. Developed gross hematuria. PSA 50s. RP with penile implant. Bladder tear about a month later. PET--recurrence in prostate bed. 06/2021 4 weeks RT in [place] with GnRH agonist treatment (Lupron). Stopped due to side effects--Severe diarrhea and n/v. PSA undetectable 06/2022. Presumably from Lupron. CT A/P 11/18/2022: IMPRESSION: 1. Postoperative ileus versus changes of early small bowel obstruction within the right pelvis as discussed above. Short-term follow-up suggested. 2. Changes of recent prostatectomy and penile implant. There is a 6.0 x 2.7 x 9.5 cm nonencapsulated postoperative fluid collection within the right lower quadrant subcutaneous fat adjacent to the penile pump. 3. Mild free fluid. 4. Sacral insufficiency fractures. Medically managed for SBO. Saw Dr. Ariza at 11/10/2023: -Assessment/Plan I personally saw patient and counselled all visit on his diagnosis, kamilla history and coordination of his care. This is a 68 y.o. male man known with LN+ PC on ADT (d/c zytiga/pred and apa s/t AEs) with T > 50 and low PSA and negative recent PSMA (June 2022). He had incomplete salvage XRT but aborted s/t bowel tox. He is discontinuing ADT per pt preference - understands R/A of this decision. He was found with some lung abn, but PET was negative and bronch results pending. He is smoker. Will call him in few weeks to Fup on bronch results We discussed the clinical significance of diagnosis, goals of care and treatment plan in detail. Thank you for the opportunity to be involved in the care of Luis Angel Aguila. Please do not hesitate to reach out with any questions. Thank you. Path was negative. Per recent note from [facility] -Follow up sp EGD with biopsies 11/26/2023. 1 cm circumferential salmon colored mucosa seen at the GE junction at the time of EGD, consistent with short segment Oliver's esophagus. 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 We discussed the etiology of Oliver's and need for continued endoscopic surveillance due to risk of malignancy. Recommend patient continue on his PPI/H2 nabil, repeat EGD in 5 years for surveillance. OV 07/05/2024: Had a PSMA PET scan done at . 04/2024 Impression: 1. Status post prostatectomy without focally increased Ga68 PSMA expression within the prostate gland to suggest local recurrence. 2. Mild PSMA-avid sub-centimeter aortocaval lymph node, nereida metastasis cannot be excluded. Production Weigher images sent to PACS for review. 3. Mild PSMA expression within the lung nodule along right heart border which was not FDG avid on PET dated 10/01/2023, non-specific. Continued attention on follow-up imaging is recommended. 4. Mild Ga68 PSMA-avid within right iliac bone lesion, although not typical for prosthetic bone metastasis, continued attention on follow-up imaging is recommended. I'm not doing anymore of those shots. Hot flashes resolved. No symptoms of LUTS. LBP significantly improved after epidural injection. 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 OV 07/12/2024: Had repeat PET scan. Has occasional hip pain previously relieved with cortisone injections. Still working 12 to 14 hours a day. No pain getting in and out of the truck. Current therapy: 1) Radiation. Completed 07/29/2024. 2) Eligard. 3) Xtandi. Began 08/2024. Presents for ongoing oncologic management. 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 Established with palliative care--Previously Lyrica increased to TID. Tolerating Xtandi well. Side effects from Eligard are tolerable. PAST MEDICAL HISTORY Diagnosis Date Abdominal aortic aneurysm seen on CT of chest for lung cancer screening COPD (chronic obstructive pulmonary disease) (HCC) Essential hypertension GERD (gastroesophageal reflux disease) Malignant neoplasm of prostate metastatic to bone (HCC) 07/13/2024 Mixed hyperlipidemia Nodule of right lung Osteoarthritis of multiple joints 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) S/P prostatectomy Tobacco use disorder PAST SURGICAL HISTORY Procedure Laterality Date APPENDECTOMY COLONOSCOPY 12/12/2022 repeat 5 years FOOT RIGHT OP SURGERY Right FRACTURE SURGERY REMOVAL OF PROSTATE REPAIR ABDOMINAL HERNIA SHOULDER SURGERY HX Bilateral XR CERVICAL FUSION OR ALLERGIES Allergen Reactions Morphine Rash, Itching Prednisone Mental Status Change Current Outpatient Medications Medication Sig (more content not included)... [facility] 10-25-2024 History of Present illness Narrative Oncologic problem(s): 1) Castrate sensitive prostate cancer. HPI: The patient is a 69-year-old male with past medical history significant for hyperlipidemia, hypertension, moderate COPD, GERD, previous cervical spine surgery, chronic low back pain and prostate cancer. Developed gross hematuria. PSA 50s. RP with penile implant. Bladder tear about a month later. PET--recurrence in prostate bed. 06/2021 4 weeks RT in [place] with GnRH agonist treatment (Lupron). Stopped due to side effects--Severe diarrhea and n/v. PSA undetectable 06/2022. Presumably from Lupron. CT A/P 11/18/2022: IMPRESSION: 1. Postoperative ileus versus changes of early small bowel obstruction within the right pelvis as discussed above. Short-term follow-up suggested. 2. Changes of recent prostatectomy and penile implant. There is a 6.0 x 2.7 x 9.5 cm nonencapsulated postoperative fluid collection within the right lower quadrant subcutaneous fat adjacent to the penile pump. 3. Mild free fluid. 4. Sacral insufficiency fractures. Medically managed for SBO. Saw Dr. Ariza at 11/10/2023: -Assessment/Plan I personally saw patient and counselled all visit on his diagnosis, kamilla history and coordination of his care. This is a 68 y.o. male man known with LN+ PC on ADT (d/c zytiga/pred and apa s/t AEs) with T > 50 and low PSA and negative recent PSMA (June 2022). He had incomplete salvage XRT but aborted s/t bowel tox. He is discontinuing ADT per pt preference - understands R/A of this decision. He was found with some lung abn, but PET was negative and bronch results pending. He is smoker. Will call him in few weeks to Fup on bronch results We discussed the clinical significance of diagnosis, goals of care and treatment plan in detail. Thank you for the opportunity to be involved in the care of Luis Angel Aguila. Please do not hesitate to reach out with any questions. Thank you. Path was negative. Per recent note from [facility] -Follow up sp EGD with biopsies 11/26/2023. 1 cm circumferential salmon colored mucosa seen at the GE junction at the time of EGD, consistent with short segment Oliver's esophagus. 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 We discussed the etiology of Oliver's and need for continued endoscopic surveillance due to risk of malignancy. Recommend patient continue on his PPI/H2 nabil, repeat EGD in 5 years for surveillance. OV 07/05/2024: Had a PSMA PET scan done at . 04/2024 Impression: 1. Status post prostatectomy without focally increased Ga68 PSMA expression within the prostate gland to suggest local recurrence. 2. Mild PSMA-avid sub-centimeter aortocaval lymph node, nereida metastasis cannot be excluded. Production Weigher images sent to PACS for review. 3. Mild PSMA expression within the lung nodule along right heart border which was not FDG avid on PET dated 10/01/2023, non-specific. Continued attention on follow-up imaging is recommended. 4. Mild Ga68 PSMA-avid within right iliac bone lesion, although not typical for prosthetic bone metastasis, continued attention on follow-up imaging is recommended. I'm not doing anymore of those shots. Hot flashes resolved. No symptoms of LUTS. LBP significantly improved after epidural injection. 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 OV 07/12/2024: Had repeat PET scan. Has occasional hip pain previously relieved with cortisone injections. Still working 12 to 14 hours a day. No pain getting in and out of the truck. Current therapy: 1) Radiation. Completed 07/29/2024. 2) Eligard. 3) Xtandi. Began 08/2024. Presents for ongoing oncologic management. 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 Established with palliative care--Previously Lyrica increased to TID. Tolerating Xtandi well. Side effects from Eligard are tolerable. PAST MEDICAL HISTORY Diagnosis Date Abdominal aortic aneurysm seen on CT of chest for lung cancer screening COPD (chronic obstructive pulmonary disease) (HCC) Essential hypertension GERD (gastroesophageal reflux disease) Malignant neoplasm of prostate metastatic to bone (HCC) 07/13/2024 Mixed hyperlipidemia Nodule of right lung Osteoarthritis of multiple joints 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) S/P prostatectomy Tobacco use disorder PAST SURGICAL HISTORY Procedure Laterality Date APPENDECTOMY COLONOSCOPY 12/12/2022 repeat 5 years FOOT RIGHT OP SURGERY Right FRACTURE SURGERY REMOVAL OF PROSTATE REPAIR ABDOMINAL HERNIA SHOULDER SURGERY HX Bilateral XR CERVICAL FUSION OR ALLERGIES Allergen Reactions Morphine Rash, Itching Prednisone Mental Status Change Current Outpatient Medications Medication Sig dexAMETHasone (DECADRON) 1 mg tablet Take 1 mg by mouth daily with breakfast. dmdpxwvlhvr-whnkxlrgz-uduqtwru (TRELEGY ELLIPTA) 200-62.5-25 mcg inhalation powder Inhale 1 puff as instructed once daily. amLODIPine (NORVASC) 5 mg tablet Take 1 tablet by mouth once daily. omeprazole (PRILOSEC) 40 mg capsule Take 1 capsule by mouth two times a day. lisinopril (ZESTRIL) 40 mg tablet Take 1 tablet by mouth once daily. famotidine (PEPCID) 40 mg tablet Take 1 tablet by mouth once daily. senna (SENOKOT) 8.6 mg tab Take 1 tablet by mouth two times a day. atorvastatin (LIPITOR) 40 mg tablet Take 1 tablet by mouth daily at bedtime. For cholesterol. atenolol (TENORMIN) 50 mg tablet Take one tablet daily along with 25 mg tablet to equal 75 mg daily atenolol (TENORMIN) 25 mg tablet Take one tablet daily along with the 50 mg tablet to equal 75 mg daily albuterol HFA (VENTOLIN HFA) 90 mcg/actuation inhaler Inhale 2 puffs as instructed every 4 hours as needed for wheezing/shortness of breath. pregabalin (LYRICA) 150 mg capsule Take 1 capsule by mouth three times a day for 120 days. enzalutamide (XTANDI) 80 mg tablet Take 2 tablets (160 mg) by mouth once daily. cyclobenzaprine (FLEXERIL) 10 mg tablet Take 1 tablet by mouth as directed. 1/2 to 1 tablet po qhs as needed for spasm acetaminophen (TYLENOL EXTRA STRENGTH) 500 mg tablet Take 1,000 mg by mouth every 8 hours as needed. aspirin, enteric coated (ASPIRIN, ENTERIC COATED) 81 mg EC tablet Take 81 mg by mouth once daily. cholecalciferol (VITAMIN D-3) 50 mcg (2,000 unit) tablet Take 2,000 Units by mouth once daily. beta-carotene,A,-vits C,E/mins (OCUVITE ORAL) Take 1 tablet by mouth once daily. calcium carbonate (CALCIUM 600 ORAL) Take 1 tablet by mouth once daily. Multivitamin capsule Take 1 capsule by mouth once daily. vit C/E/Zn/coppr/lutein/zeaxan (EYE HEALTH AREDS-2 PO) Take by mouth. (Patient not taking: Reported on 10/25/2024) tiotropium-olodaterol (STIOLTO RESPIMAT) 2.5-2.5 mcg/actuation inhaler Inhale 2 puffs as instructed once daily. No current facility-administered medications for this visit. Facility-Administered Medications Ordered in Other Visits Medication Dose Route Frequency leuprolide 22.5 mg subcutaneous syringe (ELIGARD) 22.5 mg SUBCUTANEOUS ONCE Social History Tobacco Use Smoking status: Every Day Current packs/day: 1.00 Average packs/day: 1 pack/day for 55.0 years (55.0 ttl pk-yrs) Types: Cigarettes Smokeless tobacco: Never Vaping Use Vaping status: Never Used Substance Use Topics Alcohol use: Yes Comment: occasionaly Drug use: Never Family History Problem Relation Age of Onset Glaucoma Father Dementia Father other (ETOH) Father COPD Father Lung Cancer Mother Hypertension Brother Aneurysm Maternal Grandmother other (car accident) Maternal Grandfather other (car accident) Paternal Grandfather ROS: Constitutional: No fever. No drenching night sweats. No unexplained weight loss. Neuro: No recent CORTEZ. HEENT: No recent change in voice, vision or hearing. Resp: No cough, wheeze of hemoptysis. No shortness of breath at rest. Chronic stable ANDERSON. CVS: No exertional chest pain, PND or orthopnea. GI: No reflux, n/v, change in bowel habits. No abdominal pain, bloating or distension. No black or bloody stools. Endo: No hot flashes. No polyuria or polydipsia. No heat or cold intolerance. Musculoskeletal: See above Derm: No current rash. No history of jaundice. No diffuse pruritis. Heme: No unusual bleeding and unexplained bruising. Psych: Normal mood. PHYSICAL EXAM: Vitals: Blood pressure 116/71, pulse 64, temperature 36 C (96.8 F), temperature source Temporal, height 176 cm (5' 9.29), weight 77.8 kg (171 lb 8 oz), SpO2 98%. Well-appearing and in no acute distress. EYES: Sclerae are anicteric bilaterally. LYMPHATIC: There is no palpable cervical or supraclavicular adenopathy. CARDIOVASCULAR: Rhythm is regular. ABDOMEN: The abdomen is nondistended. Extremities: No swelling or edema. SKIN: No jaundice. MS: Antalgic gait left side. ASSESSMENT/PLAN: (C61, C79.51) Malignant neoplasm of prostate metastatic to bone (HCC) (primary encounter diagnosis) (M25.551, M25.552) Bilateral hip pain (C61, C77.2) 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) Left hip pain. Assessment: -The patient is a 69-year-old male with past medical history as outlined above. Diagnosed with prostate cancer after developing gross hematuria. Underwent RP in [place]. Shortly thereafter he was started on ADT and radiation. Was not able to complete therapy secondary to severe diarrhea, nausea and vomiting. Had been receiving intermittent ADT. Significant hot flashes and mood swings with ADT. - He agreed to receive ADT once he started radiation. - Advised enzalutamide after completing palliative radiation to left pelvis/acetabulum. - Plan: - Continue Xtandi. - Stop ASA--no clear indication for it. - Rx meloxicam. - Continue Eligard injections every 3 months. - Recheck PSA in about a month. - Continue monthly Zometa. - Follow up with PCP for other health issues. - OV with next Eligard. Portions of this documentation were copied and pasted from my previous office visit note dated 09/14/2024 in order to provide a cohesive continuity of the history. The note has been reviewed and edited and updated as necessary. Monica Jung DO documented in this encounter [facility] 10-19-2024 Note HNO ID: [id number] Author: ADIEL ELAM OD Service: ? Author Type: [employer] Type: Progress Notes Filed: 10/19/2024 10:29 Note Text: 1. Nuclear sclerosis of both eyes (Primary) Mild visual significance- monitor 2. Hypermetropia, bilateral 3. Presbyopia Finalized spec rx- minimal change Follow-up in 1 year or sooner as needed I have confirmed and edited as necessary the relevant HPI, ophthalmic history, ROS, and the neuro exam findings as obtained by others. I have seen and examined Luis Angel Aguila. I have discussed the case and the management of this patient's care with the Resident/Fellow, if applicable. I also have reviewed and agree with the assessment and plan as stated above and agree with all of its relevant components. Adiel Elam, OD October 19, 2024 10:27 AM [facility] 10-19-2024 History of Present illness Narrative 1. Nuclear sclerosis of both eyes (Primary) Mild visual significance- monitor 2. Hypermetropia, bilateral 3. Presbyopia Finalized spec rx- minimal change Follow-up in 1 year or sooner as needed I have confirmed and edited as necessary the relevant HPI, ophthalmic history, ROS, and the neuro exam findings as obtained by others. I have seen and examined Luis Angel Ayla. I have discussed the case and the management of this patient's care with the Resident/Fellow, if applicable. I also have reviewed and agree with the assessment and plan as stated above and agree with all of its relevant components. Adiel Elam, GIAN October 19, 2024 10:27 AM documented in this encounter [facility] 10-05-2024 Note HNO ID: [id number] Author: ANA PAULA SAENZ RN Service: ? Author Type: Registered Nurse Type: Progress Notes Filed: 10/05/2024 16:03 Note Text: Dentures upper and lower. No gum issues or concerns. Ana Paula Saenz RN [facility] 10-05-2024 History of Present illness Narrative Dentures upper and lower. No gum issues or concerns. Ana Paula Saenz RN documented in this encounter [facility] 10-04-2024 History of Present illness Narrative [facility] Refill Assessment Medication(s): Xtandi 80 Reviewed OV note on 09/14 - pt just planning to start xtandi same day as visit; noted eligard SEs were tolerable. Labs reviewed. Next clinic visit scheduled 10/25/24. ALLERGIES Allergen Reactions Morphine Rash, Itching Prednisone Mental Status Change Patient's current medication list and adherence status to current therapy were reviewed by Specialty Pharmacy clinical pharmacist to identify any new drug interactions or non-compliance to therapy. Therapy continues to be appropriate for disease, patient response, and medical condition. Verification of therapeutic benefit and effectiveness with current therapy was completed. Adverse events, barriers in adherence, and side effects were assessed and addressed if applicable. Will proceed with refill with no changes in therapy - patient progressing towards achieving therapeutic goals based on medication-specific laboratory parameters, disease state markers and outcomes. Office/provider notes have been reviewed prior to dispensing the medication. Cesar Houston, MihaiD Clinical Pharmacist, Oncology [facility] P: , F: Pool: P [facility] Pool #: [id number] 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 Patient confirmed: Yes Med/dose confirmed: Yes Supplies needed: No supplies needed Missed doses: No Estimated days supply on hand: 5 Copay amount: 0 Payment confirmed: Yes Delivery method: FedEx Signature required: No Delivery address: [address] [facility] [address] Delivery date: 10/06/24 Questions or concerns for the pharmacist?: No Did you have any side effects believed to be related to this medication, that resulted in hospitalization?: No Current Outpatient Medications on File Prior to Visit Medication Sig dexAMETHasone (DECADRON) 1 mg tablet Take 1 mg by mouth daily with breakfast. wpctwwyewqq-qiqqbrouj-rjihwsyl (TRELEGY ELLIPTA) 200-62.5-25 mcg inhalation powder Inhale 1 puff as instructed once daily. amLODIPine (NORVASC) 5 mg tablet Take 1 tablet by mouth once daily. tiotropium-olodaterol (STIOLTO RESPIMAT) 2.5-2.5 mcg/actuation inhaler Inhale 2 puffs as instructed once daily. omeprazole (PRILOSEC) 40 mg capsule Take 1 capsule by mouth two times a day. lisinopril (ZESTRIL) 40 mg tablet Take 1 tablet by mouth once daily. famotidine (PEPCID) 40 mg tablet Take 1 tablet by mouth once daily. senna (SENOKOT) 8.6 mg tab Take 1 tablet by mouth two times a day. atorvastatin (LIPITOR) 40 mg tablet Take 1 tablet by mouth daily at bedtime. For cholesterol. atenolol (TENORMIN) 50 mg tablet Take one tablet daily along with 25 mg tablet to equal 75 mg daily atenolol (TENORMIN) 25 mg tablet Take one tablet daily along with the 50 mg tablet to equal 75 mg daily albuterol HFA (VENTOLIN HFA) 90 mcg/actuation inhaler Inhale 2 puffs as instructed every 4 hours as needed for wheezing/shortness of breath. pregabalin (LYRICA) 150 mg capsule Take 1 capsule by mouth three times a day for 120 days. enzalutamide (XTANDI) 80 mg tablet Take 2 tablets (160 mg) by mouth once daily. cyclobenzaprine (FLEXERIL) 10 mg tablet Take 1 tablet by mouth as directed. 1/2 to 1 tablet po qhs as needed for spasm acetaminophen (TYLENOL EXTRA STRENGTH) 500 mg tablet Take 1,000 mg by mouth every 8 hours as needed. aspirin, enteric coated (ASPIRIN, ENTERIC COATED) 81 mg EC tablet Take 81 mg by mouth once daily. cholecalciferol (VITAMIN D-3) 50 mcg (2,000 unit) tablet Take 2,000 Units by mouth once daily. beta-carotene,A,-vits C,E/mins (OCUVITE ORAL) Take 1 tablet by mouth once daily. calcium carbonate (CALCIUM 600 ORAL) Take 1 tablet by mouth once daily. Multivitamin capsule Take 1 capsule by mouth once daily. No current facility-administered medications on file prior to visit. [facility] CLINICAL ASSESSMENT - HEMATOLOGY ONCOLOGY V6: Ivent complete: No Assessment to use: Refill Lab monitoring inclusive of CBC, Chem-7, and other labs as pertinent for therapy: Yes Chemo cycle timing assessment: N/A Assessment of injection issues: N/A Current medication list (including drug interaction assessment): Yes Experience of adverse reactions to the medication: Yes Date of influenza vaccination reminder: 09/09/2024 Date of most recent vaccination assessment: 09/09/2024 Treatment Plan Information: Diagnosis: metastatic castration sensitive prostate cancer (LN+) Previous treatment(s): - Radical prostatectomy in April 2021 - 4 weeks of RT with Lupron in 2021 - topped d/t SEs. - PSA undetectable in June 2022 (presumably from Lupron) - RT + ADT Tx Plan: Xtandi + Eligard (ADT) - Next Eligard due in October 2024 Starting Dose/Titration: Xtandi 160 mg once daily orally Administration: Administer at the same time each day, either with or without food. Side Effects/Warnings: include but are not limited to ischemic heart disease, falls/fractures, hypersensitivity, PRES (manifesting as CORTEZ, seizure, lethargy, confusion, blindness), seizures, hyperglycemia, cytopenias, fatigue Monitoring: - CBC with differential and liver function tests (baseline and periodic) - Additional INR monitoring (if on warfarin) - Blood pressure (baseline and periodic) - Monitor for signs/symptoms of ischemic heart disease, posterior reversible encephalopathy syndrome, and seizure; evaluate fall and fracture risk. - Monitor adherence. Drug-Drug Interactions: - Category C interactions with atorvastatin and omeprazole. Xtandi may decrease concentration of both. Monitor for reduced effectiveness Est. Tx Plan Start Date: No information available Estimated Start Date Info: Per Dr. Jung's discretion Est. Estimated Treatment Duration: Until disease progression or unacceptable toxicity Jess Tobin documented in this encounter [facility] 10-04-2024 Note HNO ID: [id number] Author: CESAR HOUSTON RPh Service: ? Author Type: ? Type: Progress Notes Filed: 10/04/2024 15:01 Note Text: [facility] Refill Assessment Medication(s): Xtandi 80 Reviewed OV note on 09/14 - pt just planning to start xtandi same day as visit; noted eligard SEs were tolerable. Labs reviewed. Next clinic visit scheduled 10/25/24. ALLERGIES Allergen Reactions Morphine Rash, Itching Prednisone Mental Status Change Patient's current medication list and adherence status to current therapy were reviewed by Specialty Pharmacy clinical pharmacist to identify any new drug interactions or non-compliance to therapy. Therapy continues to be appropriate for disease, patient response, and medical condition. Verification of therapeutic benefit and effectiveness with current therapy was completed. Adverse events, barriers in adherence, and side effects were assessed and addressed if applicable. Will proceed with refill with no changes in therapy - patient progressing towards achieving therapeutic goals based on medication-specific laboratory parameters, disease state markers and outcomes. Office/provider notes have been reviewed prior to dispensing the medication. Cesar Houston, MihaiD Clinical Pharmacist, Oncology [facility] P: , F: Pool: P [facility] Pool #: [id number] 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 Patient confirmed: Yes Med/dose confirmed: Yes Supplies needed: No supplies needed Missed doses: No Estimated days supply on hand: 5 Copay amount: 0 Payment confirmed: Yes Delivery method: FedEx Signature required: No Delivery address: [address] [place] [id number] Delivery date: 10/06/24 Questions or concerns for the pharmacist?: No Did you have any side effects believed to be related to this medication, that resulted in hospitalization?: No Current Outpatient Medications on File Prior to Visit Medication Sig dexAMETHasone (DECADRON) 1 mg tablet Take 1 mg by mouth daily with breakfast. bbxbpzdjgxp-bqtnrygwl-tidffgnz (TRELEGY ELLIPTA) 200-62.5-25 mcg inhalation powder Inhale 1 puff as instructed once daily. amLODIPine (NORVASC) 5 mg tablet Take 1 tablet by mouth once daily. tiotropium-olodaterol (STIOLTO RESPIMAT) 2.5-2.5 mcg/actuation inhaler Inhale 2 puffs as instructed once daily. omeprazole (PRILOSEC) 40 mg capsule Take 1 capsule by mouth two times a day. lisinopril (ZESTRIL) 40 mg tablet Take 1 tablet by mouth once daily. famotidine (PEPCID) 40 mg tablet Take 1 tablet by mouth once daily. senna (SENOKOT) 8.6 mg tab Take 1 tablet by mouth two times a day. atorvastatin (LIPITOR) 40 mg tablet Take 1 tablet by mouth daily at bedtime. For cholesterol. atenolol (TENORMIN) 50 mg tablet Take one tablet daily along with 25 mg tablet to equal 75 mg daily atenolol (TENORMIN) 25 mg tablet Take one tablet daily along with the 50 mg tablet to equal 75 mg daily albuterol HFA (VENTOLIN HFA) 90 mcg/actuation inhaler Inhale 2 puffs as instructed every 4 hours as needed for wheezing/shortness of breath. pregabalin (LYRICA) 150 mg capsule Take 1 capsule by mouth three times a day for 120 days. enzalutamide (XTANDI) 80 mg tablet Take 2 tablets (160 mg) by mouth once daily. cyclobenzaprine (FLEXERIL) 10 mg tablet Take 1 tablet by mouth as directed. 1/2 to 1 tablet po qhs as needed for spasm acetaminophen (TYLENOL EXTRA STRENGTH) 500 mg tablet Take 1,000 mg by mouth every 8 hours as needed. aspirin, enteric coated (ASPIRIN, ENTERIC COATED) 81 mg EC tablet Take 81 mg by mouth once daily. cholecalciferol (VITAMIN D-3) 50 mcg (2,000 unit) tablet Take 2,000 Units by mouth once daily. beta-carotene,A,-vits C,E/mins (OCUVITE ORAL) Take 1 tablet by mouth once daily. calcium carbonate (CALCIUM 600 ORAL) Take 1 tablet by mouth once daily. Multivitamin capsule Take 1 capsule by mouth once daily. No current facility-administered medications on file prior to visit. [facility] CLINICAL ASSESSMENT - HEMATOLOGY ONCOLOGY V6: Ivent complete: No Assessment to use: Refill Lab monitoring inclusive of CBC, Chem-7, and other labs as pertinent for therapy: Yes Chemo cycle timing assessment: N/A Assessment of injection issues: N/A Current medication list (including drug interaction assessment): Yes Experience of adverse reactions to the medication: Yes Date of influenza vaccination reminder: 09/09/2024 Date of most recent vaccination assessment: 09/09/2024 Treatment Plan Information: Diagnosis: metastatic castration sensitive prostate cancer (LN+) Previous treatment(s): - Radical prostatectomy in April 2021 - 4 weeks of RT with Lupron in 2021 - topped d/t SEs. - PSA undetectable in June 2022 (presumably from Lupron) - RT + ADT Tx Plan: Xtandi + Eligard (ADT) - Next Eligard due in October 2024 Starting Dose/Titration: Xtandi 160 mg once daily orally Administration: Administer at t (more content not included)... [facility] 09-28-2024 Telephone encounter Note Spoke with patients spouse and scheduled Nela Zamora [facility] 09-28-2024 Miscellaneous Notes Spoke with patients spouse and scheduled Nela Zamora Patient's is aware and is awaiting the call to schedule: Start BMP/Zometa as soon as possible. Orders filed. Tg Womack LPN Thank you. Start BMP/Zometa as soon as possible. Orders filed. Dental clearance form received form Dr. Interiano. Patient is cleared for Zometa/Reclast/Xgeva. Form sent to scanning. Tg Womack LPN documented in this encounter [facility] 09-28-2024 Telephone encounter Note Patient's is aware and is awaiting the call to schedule: Start BMP/Zometa as soon as possible. Orders filed. Tg Womack LPN [facility] 09-28-2024 Telephone encounter Note Patient's notified. Tg Womack LPN [facility] 09-28-2024 Miscellaneous Notes Patient's notified. Tg Womack LPN Can let his Kat know that the x-ray showed that the insufficiency fractures are healing. There is no other evidence of other fracture. Monica Jung DO documented in this encounter [facility] 09-27-2024 Telephone encounter Note Can let his Kat know that the x-ray showed that the insufficiency fractures are healing. There is no other evidence of other fracture. Monica Jung DO [facility] 09-27-2024 Telephone encounter Note Thank you. Start BMP/Zometa as soon as possible. Orders filed. [facility] 09-27-2024 Telephone encounter Note Dental clearance form received form Dr. Interiano. Patient is cleared for Zometa/Reclast/Xgeva. Form sent to scanning. Tg Womack LPN [facility] 09-27-2024 History of Present illness Narrative Radiology Service Progress Note PATIENT NAME: Luis Angel Aguila DATE OF SERVICE: September 27, 2024 TIME: 4:19 PM PATIENT IDENTITY VERIFICATION COMPLETED USING TWO (2) IDENTIFIERS: Name and Date of confirmed by patient verbally. FALL SCREENING: Has the patient had 2 falls in the last year or 1 fall with injury or currently using an Ambulatory Assistive Device (Walker, Cane, Wheelchair, Crutches, etc.)? No PATIENT GENDER DATA: Assigned male at PATIENT RELEVANT IMPLANT DATA REVIEWED: Not Applicable PATIENT PRESENTS WITH AN IMPLANTABLE OR ATTACHED WIND TURBINE PERFORMANCE ENGINEER: No RADIOLOGY DEPARTMENT: General X-ray: Exam(s) Completed: Pelvis X-Ray: Pelvis with Hip Left PERIPHERAL IV DATA: Not applicable SIGNED BY: Arvind Camp September 27, 2024 4:19 PM documented in this encounter [facility] 09-27-2024 Note HNO ID: [id number] Author: BIPIN SY Tech Service: ? Author Type: Technologist Type: Progress Notes Filed: 09/27/2024 16:30 Note Text: Radiology Service Progress Note PATIENT NAME: Luis Angel Aguila DATE OF SERVICE: September 27, 2024 TIME: 4:19 PM PATIENT IDENTITY VERIFICATION COMPLETED USING TWO (2) IDENTIFIERS: Name and Date of confirmed by patient verbally. FALL SCREENING: Has the patient had 2 falls in the last year or 1 fall with injury or currently using an Ambulatory Assistive Device (Walker, Cane, Wheelchair, Crutches, etc.)? No PATIENT GENDER DATA: Assigned male at PATIENT RELEVANT IMPLANT DATA REVIEWED: Not Applicable PATIENT PRESENTS WITH AN IMPLANTABLE OR ATTACHED WIND TURBINE PERFORMANCE ENGINEER: No RADIOLOGY DEPARTMENT: General X-ray: Exam(s) Completed: Pelvis X-Ray: Pelvis with Hip Left PERIPHERAL IV DATA: Not applicable SIGNED BY: Arvind Camp September 27, 2024 4:19 PM [facility] 09-27-2024 Telephone encounter Note Patient's is on the phone with the wastewater analyst lab analyst. Tg Womack LPN [facility] 09-27-2024 Miscellaneous Notes Patient's is on the phone with the wastewater analyst lab analyst. Tg Womack LPN documented in this encounter [facility] 09-24-2024 History of Present illness Narrative Images from the original note were not included. . [facility] [place] Note Patient name: Luis Angel Aguila PCP: Erik Cota MD Referring Physician: Naima Sinha, JAMES Recording using ambient AI software for draft documentation of the visit was discussed with the patient/authorized promotional representative; all questions welcomed and answered. Patient/authorized promotional representative agreed to proceed Consultation requested by Naima Sinha for an opinion regarding COPD. My final recommendations will be communicated back to the requesting physician by way of shared Medical record or letter to requesting physician via US mail. CC: COPD HPI: Luis Angel Aguila 69 year old male current [id number] smoker with COPD, metastatic prostate cancer to the bones, GERD with Oliver's esophagus, HTN, HLD and history of pulmonary nodularity, followed with pulmonary [facility], Dr. Quinteros. Has history of hemoptysis status post bronchoscopy 10/2023 with remote previous history of hemoptysis. Participating in lung cancer screening at [facility], RML nodularity (1.5 x 1.2 cm) without abnormal uptake on PET scan and adjacent 6 mm RML nodule. Previous episodes of hemoptysis occurred when he was living in [place] and attributed it to the dry air as well as altitude. He had bronchoscopy in the past treated with a epi wash. Prostate cancer initially diagnosed in 2021, s/p resection, radiation and ADT. Not tolerant of consistent ADT due to side effects. Now has bony metastases. [facility] recently completed radiation therapy to left pelvis/acetabulum. Being referred for evaluation and management of COPD. Luis Angel has been using Stiolto Respimat for approximately 1 year and reports it seems to help with breathing and expectoration of phlegm. He also uses albuterol as a rescue inhaler. He has a history of smoking since age 11 and does not intend to quit. He reports a smoker's cough primarily in the morning and experiences dyspnea with activity, which is exacerbated by heat and humidity exposure. No further hemoptysis since last year. He denies awareness of wheezing, though his confirms its presence. No history of PNA or recurrent bronchitis. No history of asthma or allergies. He does report remote exposure to extreme cold and was told he had smyth bite of his lungs. DATA: COPD Assessment Test I never cough 0 1 2 3 4 5 I cough all the time; Score 3 I have no phlegm 0 1 2 3 4 5 My chest is completely full of phlegm; Score 4 My chest does not feel tight at all 0 1 2 3 4 5 My chest chest feels very tight; Score 3 When I walk up a hill or one flight of stairs I am not breathless 0 1 2 3 4 5 When I walk up a hill or one flight or stairs I am very breathless; Score 4 I am not limited doing any activities at home 0 1 2 3 4 5 I am very limited doing activities at home; Score I am confident leaving my home despite my lung condition 0 1 2 3 4 5 I am not at all confident leaving my home because of my lung condition; Score 2 I sleep soundly 0 1 2 3 4 5 don't sleep soundly because of my lungs; Score 2 I have lots of energy 0 1 2 3 4 5 I have no energy at all; Score 4 Total Score: 26 PFT: Pulmonary function testing shows moderately severe obstruction with marked improvement postbronchodilator. Moderate reduction in diffusing capacity PFT 2017: FVC 2.88 L 60% increases to 3.61 L postbronchodilator FEV1 2.14 L 59% increases to 2.80 L later FEV1 seen ratio 74% TLC 5.96 L 83% RV 2.98 L 128% DLCO 28.18 82% Bronchoscopy 10/2023: The endotracheal tube is in good position. The visualized portion of the trachea is of normal caliber. The alexis is sharp. The tracheobronchial tree was examined to at least the first subsegmental level. Bronchial mucosa and anatomy are normal; there are no endobronchial lesions, and no secretions. I carefully probed all the airways of both lungs, all airways clear to the segmental level. NO evidence of any hemoptysis. Next, I obtained a BAL from the RML. With the bronchoscopy wedged in the RML medial segment, a total of 120 cc of saline was instilled. A total of 30 cc of slightly cellular fluid was aspirated back, and this was sent for cytology and micro (aerobic, fungal, AFB). Next, Next, I obtained a BAL from the EZRA. With the bronchoscopy wedged in the EZRA superior lingular bronchus, a total of 120 cc of saline was instilled. A total of 30 cc of slightly cellular fluid was aspirated back, and this was sent for cytology and micro (aerobic, fungal, AFB). Labs: Eosinophils % % 6.5 8.9 8.6 Abs Eosin <0.46 k/uL 0.56 High 0.51 High 0.45 Imaging / Diagnostic Studies: DATE OF EXAM: Jul 07 2024 11:12AM RHP 0093 - NM PET/CT PROSTATE WB / PROCEDURE REASON: multiple diagnoses CLINICAL HISTORY: Prostate cancer elevated. * Prostate Cancer Grade: * PSA: 0.62 ng/mL 07/05/2024 * Previous Therapy: Radiation therapy, Lupron EXAM CATEGORY: Subsequent treatment strategy. CORRELATION: CT abdomen and pelvis 11/18/2022 RESULT: REFERENCES: Uptake by the injected radiopharmaceutical serves as a surrogate marker for prostate-specific membrane antigen (PSMA) expression. All reported standardized uptake values represent maximum SUV (SUVmax) per body weight, unless otherwise specified. SUV Reference Values: * Background Salivary Gland: SUVmax 26 * Blood Pool (Descending Aorta): SUVmax 2 * Background Liver: SUVmax 7.4 Localizer Images: No additional findings. HEAD AND NECK: Head: No radiotracer avid lesion or mass effect in the intracranial compartment. Aerodigestive Tract: No radiotracer avid lesion. Lymph Nodes: No radiotracer avid lymphadenopathy. Neck Soft Tissues: No radiotracer avid thyroid nodule. Cervical spinal hardware. CHEST: Lungs & Pleura: No radiotracer avid mass, nodule, or consolidation. No pleural effusion. 6 mm right midlung nodule below the resolution Lymph Nodes: No radiotracer avid lymphadenopathy. Mediastinum: No radiotracer avid mass. Cardiovascular: Blood pool activity. No pericardial effusion. Normal heart size. Prominent ascending aorta. Chest Wall: No radiotracer avid soft tissue lesion. ABDOMEN AND PELVIS: Hepatobiliary: No radiotracer avid lesion. No measurable mass. Spleen: No radiotracer avid lesion. No splenomegaly. Pancreas: No radiotracer avid lesion. Adrenals: No radiotracer avid nodule. Urinary Tract: Physiologic radiotracer excretion in the urinary tract. No hydronephrosis. GI Tract: No radiotracer avid lesion. No bowel dilation. Peritoneum: No radiotracer avid lesion. No ascites. Lymph Nodes: * Abdomen (including common iliac): No radiotracer avid lymphadenopathy. * Pelvis (below common iliac): No radiotracer avid lymphadenopathy. Vasculature: Blood pool activity. Prostate & Seminal Vesicles: No radiotracer avid lesion. Pelvis Soft Tissues: No radiotracer avid lesion. Penile implant with adjacent nonavid collection in the subcutaneous right lower MUSCULOSKELETAL: Bones: Avid uptake in the left acetabulum left iliac bone with sclerotic (max SUV 10.5) likely osseous metastatic disease Mild activity with degenerative changes in the lumbar spine. Soft Tissues: No radiotracer avid lesion. Chest CT 05/17/24: EXAMINATION: CT CHEST LOW DOSE LUNG DIAGNOSTIC - ONLY [facility] HISTORY: ORDERING SYSTEM PROVIDED HISTORY: Lung nodule, 6-8mm, ORDERING SYSTEM PROVIDED DIAGNOSIS CODES: R91.1 Lung nodule COMPARISON: CT chest dated 01/12/2024, 10/10/2023, 08/21/2023. PET-CT dated 10/01/2023. FINDINGS: Lower neck: The visualized thyroid is normal. No bulky lower cervical or axillary lymphadenopathy. Mediastinum: Ectasia of the ascending thoracic aorta measuring up to 4.1 cm, unchanged. Heart size is normal. No pericardial effusion. No bulky mediastinal or perihilar lymphadenopathy. Mild calcified coronary artery disease. Lungs: Moderate upper lung predominant emphysema. No pneumothorax, pleural effusion, or focal consolidation. A 1.5 x 1.2 cm juxta cardial nodule within the right middle lobe measuring 15 x 12 mm is unchanged. A 6 mm solid nodule adjacent to the right minor fissure within the right middle lobe, series 3, image 93 is also unchanged. A 4 mm solid nodule within the left lower lobe, series 3, image 120 is unchanged. Several additional sub 3 mm nodules are scattered bilaterally. No new or enlarging pulmonary nodules. Central airways are patent. Visualized upper abdomen: 15 mm right hepatic cyst. Vascular calcifications. Musculoskeletal: No acute or aggressive osseous lesions. Addendum by Wilder Rogers DO on 05/23/2024 9:44 AM EST ADDENDUM: Lung-RADS 3 - Probably Benign ([id number]) Management: [address] 01/2024: I personally viewed images which shows extensive emphysema, 6 mm right middle lobe nodule, greater than 1 cm right middle lobe nodular opacity, right lower lobe groundglass opacity PAST MEDICAL HISTORY Diagnosis Date Abdominal aortic aneurysm seen on CT of chest for lung cancer screening COPD (chronic obstructive pulmonary disease) (HCC) Essential hypertension GERD (gastroesophageal reflux disease) Malignant neoplasm of prostate metastatic to bone ([facility]) 07/13/2024 Mixed hyperlipidemia Nodule of right lung Osteoarthritis of multiple joints 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) S/P prostatectomy Tobacco use disorder ALLERGIES Allergen Reactions Morphine Rash, Itching Prednisone Mental Status Change dexAMETHasone (DECADRON) 1 mg tablet Take 1 mg by mouth daily with breakfast. swiskcgskfe-sjvhlaxee-vwfwjfqj (TRELEGY ELLIPTA) 200-62.5-25 mcg inhalation powder Inhale 1 puff as instructed once daily. amLODIPine (NORVASC) 5 mg tablet Take 1 tablet by mouth once daily. tiotropium-olodaterol (STIOLTO RESPIMAT) 2.5-2.5 mcg/actuation inhaler Inhale 2 puffs as instructed once daily. omeprazole (PRILOSEC) 40 mg capsule Take 1 capsule by mouth two times a day. lisinopril (ZESTRIL) 40 mg tablet Take 1 tablet by mouth once daily. famotidine (PEPCID) 40 mg tablet Take 1 tablet by mouth once daily. senna (SENOKOT) 8.6 mg tab Take 1 tablet by mouth two times a day. atorvastatin (LIPITOR) 40 mg tablet Take 1 tablet by mouth daily at bedtime. For cholesterol. atenolol (TENORMIN) 50 mg tablet Take one tablet daily along with 25 mg tablet to equal 75 mg daily atenolol (TENORMIN) 25 mg tablet Take one tablet daily along with the 50 mg tablet to equal 75 mg daily albuterol HFA (VENTOLIN HFA) 90 mcg/actuation inhaler Inhale 2 puffs as instructed every 4 hours as needed for wheezing/shortness of breath. pregabalin (LYRICA) 150 mg capsule Take 1 capsule by mouth three times a day for 120 days. enzalutamide (XTANDI) 80 mg tablet Take 2 tablets (160 mg) by mouth once daily. cyclobenzaprine (FLEXERIL) 10 mg tablet Take 1 tablet by mouth as directed. 1/2 to 1 tablet po qhs as needed for spasm acetaminophen (TYLENOL EXTRA STRENGTH) 500 mg tablet Take 1,000 mg by mouth every 8 hours as needed. aspirin, enteric coated (ASPIRIN, ENTERIC COATED) 81 mg EC tablet Take 81 mg by mouth once daily. cholecalciferol (VITAMIN D-3) 50 mcg (2,000 unit) tablet Take 2,000 Units by mouth once daily. beta-carotene,A,-vits C,E/mins (OCUVITE ORAL) Take 1 tablet by mouth once daily. calcium carbonate (CALCIUM 600 ORAL) Take 1 tablet by mouth once daily. Multivitamin capsule Take 1 capsule by mouth once daily. Social History Tobacco Use Smoking status: Every Day Current packs/day: 1.00 Average packs/day: 1 pack/day for 55.0 years (55.0 ttl pk-yrs) Types: Cigarettes Smokeless tobacco: Never Vaping Use Vaping status: Never Used Substance Use Topics Alcohol use: Yes Comment: occasionaly Drug use: Never FAMILY HISTORY Problem Relation Age of Onset Lung Cancer Mother Dementia Father other (ETOH) Father COPD Father Hypertension Brother Aneurysm Maternal Grandmother other (car accident) Maternal Grandfather other (car accident) Paternal Grandfather PAST SURGICAL HISTORY Procedure Laterality Date APPENDECTOMY COLONOSCOPY 12/12/2022 repeat 5 years FOOT RIGHT OP SURGERY Right FRACTURE SURGERY REMOVAL OF PROSTATE REPAIR ABDOMINAL HERNIA SHOULDER SURGERY HX Bilateral XR CERVICAL FUSION OR PMH, Social history, family history and surgical history reviewed and updated in EMR REVIEW OF SYSTEMS: CONSTITUTIONAL: No fevers, chills, nightsweats, unintended weight loss. Fatigue HEENT: Denies nasal congestion/sinus symptoms, allergy problems. EYES: No visual changes CARDIOVASCULAR: No chest pain, palpitations, orthopnea. Edema PULM: See HPI GI: GERD with Oliver's esophagus NEURO: No balance problems, peripheral weakness/paresthesias or numbness of concern. MUSC-SKEL: Hip pain PSY: No concerns regarding depression, anxiety INTEGUMENTARY: No new skin changes PHYSICAL EXAMINATION: BP 120/60 Pulse 69 Resp 17 Wt 177 lb (80.3kg) SpO2 94% General Appearance: Age-appropriate male, NAD. Skin: Skin color, texture, turgor normal, no suspicious rashes or lesions. Head: Normocephalic, no masses, lesions, tenderness or abnormalities. Eyes: Sclera, conjunctiva normal. Oropharynx: Edentulous. Neck: No masses or adenopathy Lungs: Not labored, normal to percussion, diminished breath sound, no wheezes or crackles. Heart: Regular rate and rhythm, no murmurs. Extremities: Mild edema, no clubbing. Assessment/Plan: 1. Asthma COPD overlap -Marked improvement with bronchodilator and peripheral eosinophilia suggestive of asthmatic component. Emphysema by CT - Changed inhaled therapy to Trelegy Ellipta. Continue albuterol as needed -Smoking cessation is strongly encouraged but patient has no desire to quit -Overnight oxygen assessment 2. Pulmonary nodules -Images available show stable pulmonary nodules for almost a year -Repeat CT 6 months 3. Prostate cancer metastatic to bones -Active treatment per oncology 4. Cigarette smoker -Current smoker with sequelae of emphysema - Qualifies for lung cancer screening but actively surveilling pulmonary nodules - Smoking cessation strongly encouraged but patient has no desire to quit I spent a total of 70 minutes on the date of the service which included preparing to see the patient, [id number] patient care, completing clinical documentation, obtaining and/or reviewing separately obtained history, performing a medically appropriate examination, ordering medications, tests, or procedures, and independently interpreting results (not separately reported). Aimee العلي MD [facility] documented in this encounter [facility] 09-24-2024 Note HNO ID: [id number] Author: AIMEE العلي MD Service: ? Author Type: Physician Type: Progress Notes Filed: 09/24/2024 15:18 Note Text: . [facility] Note Patient name: Luis Angel Aguila PCP: Erik Cota MD Referring Physician: Naima Sinha CNP Recording using Teleport software for draft documentation of the visit was discussed with the patient/authorized promotional representative; all questions welcomed and answered. Patient/authorized promotional representative agreed to proceed Consultation requested by Naima Sinha for an opinion regarding COPD. My final recommendations will be communicated back to the requesting physician by way of shared Medical record or letter to requesting physician via US mail. CC: COPD HPI: Luis Angel Aguila 69 year old male current [id number] smoker with COPD, metastatic prostate cancer to the bones, GERD with Oliver's esophagus, HTN, HLD and history of pulmonary nodularity, followed with pulmonary [facility], Dr. Quinteros. Has history of hemoptysis status post bronchoscopy 10/2023 with remote previous history of hemoptysis. Participating in lung cancer screening at [facility], RML nodularity (1.5 x 1.2 cm) without abnormal uptake on PET scan and adjacent 6 mm RML nodule. Previous episodes of hemoptysis occurred when he was living in [place] and attributed it to the dry air as well as altitude. He had bronchoscopy in the past treated with a epi wash. Prostate cancer initially diagnosed in 2021, s/p resection, radiation and ADT. Not tolerant of consistent ADT due to side effects. Now has bony metastases. Current therapy for prostate cancer Wali, recently completed radiation therapy to left pelvis/acetabulum. Being referred for evaluation and management of COPD. Luis Angel has been using Stiolto Respimat for approximately 1 year and reports it seems to help with breathing and expectoration of phlegm. He also uses albuterol as a rescue inhaler. He has a history of smoking since age 11 and does not intend to quit. He reports a smoker's cough primarily in the morning and experiences dyspnea with activity, which is exacerbated by heat and humidity exposure. No further hemoptysis since last year. He denies awareness of wheezing, though hiswife confirms its presence. No history of PNA or recurrent bronchitis. No history of asthma or allergies. He does report remote exposure to extreme cold and was told he had smyth bite of his lungs. DATA: COPD Assessment Test I never cough 0 1 2 3 4 5 I cough all the time; Score 3 I have no phlegm 0 1 2 3 4 5 My chest is completely full of phlegm; Score 4 My chest does not feel tight at all 0 1 2 3 4 5 My chest chest feels very tight; Score 3 When I walk up a hill or one flight of stairs I am not breathless 0 1 2 3 4 5 When I walk up a hill or one flight or stairs I am very breathless; Score 4 I am not limited doing any activities at home 0 1 2 3 4 5 I am very limited doing activities at home; Score I am confident leaving my home despite my lung condition 0 1 2 3 4 5 I am not at all confident leaving my home because of my lung condition; Score 2 I sleep soundly 0 1 2 3 4 5 don't sleep soundly because of my lungs; Score 2 I have lots of energy 0 1 2 3 4 5 I have no energy at all; Score 4 Total Score: 26 PFT: Pulmonary function testing shows moderately severe obstruction with marked improvement postbronchodilator. Moderate reduction in diffusing capacity PFT 2017: FVC 2.88 L 60% increases to 3.61 L postbronchodilator FEV1 2.14 L 59% increases to 2.80 L later FEV1 seen ratio 74% TLC 5.96 L 83% RV 2.98 L 128% DLCO 28.18 82% Bronchoscopy 10/2023: The endotracheal tube is in good position. The visualized portion of the trachea is of normal caliber. The alexis is sharp. The tracheobronchial tree was examined to at least the first subsegmental level. Bronchial mucosa and anatomy are normal; there are no endobronchial lesions, and no secretions. I carefully probed all the airways of both lungs, all airways clear to the segmental level. NO evidence of any hemoptysis. Next, I obtained a BAL from the RML. With the bronchoscopy wedged in the RML medial segment, a total of 120 cc of saline was instilled. A total of 30 cc of slightly cellular fluid was aspirated back, and this was sent for cytology and micro (aerobic, fungal, AFB). Next, Next, I obtained a BAL from the EZRA. With the bronchoscopy wedged in the EZRA superior lingular bronchus, a total of 120 cc of saline was instilled. A total of 30 cc of slightly cellular fluid was aspirated back, and this was sent for cytology and micro (aerobic, fungal, AFB). Labs: Eosinophils % % 6.5 8.9 8.6 Abs Eosin <0.46 k/uL 0.56 High 0.51 High 0.45 Imaging / Diagnostic Studies: DATE OF EXAM: Jul 07 2024 11:12AM [facility] [id number] - NM PET/CT PROSTATE WB / PROCEDURE REASON: multiple diagnoses CLINICAL HISTORY: Prostate cancer (more content not included)... [facility] 09-21-2024 Telephone encounter Note ORAL ANTI-CANCER AGENTS FOLLOW-UP PHONE CALL Patient identified by name and date of . YES Patient is on day 8 of Xtandi (enzalutamide) for Prostate Cancer. SYMPTOM ASSESSMENT Headache: No Visual Changes: No Dizziness: No Do you have any periods of confusion? No Mood changes: No Mouth or throat pain: No Appetite: no changes in appetite, appetite fair Taste changes: No Nausea: No Vomiting: No Heartburn: No. Weight gain/loss: No Episodes of palpitations/chest discomfort/pressure/pain No Shortness of breath: No Cough: No Diarrhea: no Constipation: no Bladder/Urinary Changes: None Pain: Yes, continued pain in hips, being followed by Palliative care, [facility], they increased dose of Lyrica last week. Advised to reach out to them with an update. Fever: No Chills: No Cold sensitivity: No Numbness/weakness: No Edema: No Skin changes: No Itching: No Yellowing of skin or eyes: No Musculoskeletal/joint changes/issues No Bleeding issues: No Activity Level (0-100%): same as baseline Does the patient need interventions or same day appointment:No ADDITIONAL FOLLOW UP: The next outreach call is due on: na and was scheduled na The following lab tests are due: 10/18/24 Verified patient is aware of next appointment in the cancer center: Yes. Verified patient verbalized how to correctly refill the oral agent prescription. Yes Does the patient have any financial difficulties affording this medication? No Patient verbalizes understanding of when to seek Medical Attention? YES Patient verbalizes understanding of after-hours and weekend phone number? YES Patient verbalized importance of medication compliance in taking the oral agent as prescribed. Patient instructed to call if unable to comply. Sebastián Garcia RN [facility] Work Phone: 09-21-2024 Miscellaneous Notes ORAL ANTI-CANCER AGENTS FOLLOW-UP PHONE CALL Patient identified by name and date of . YES Patient is on day 8 of Xtandi (enzalutamide) for Prostate Cancer. SYMPTOM ASSESSMENT Headache: No Visual Changes: No Dizziness: No Do you have any periods of confusion? No Mood changes: No Mouth or throat pain: No Appetite: no changes in appetite, appetite fair Taste changes: No Nausea: No Vomiting: No Heartburn: No. Weight gain/loss: No Episodes of palpitations/chest discomfort/pressure/pain No Shortness of breath: No Cough: No Diarrhea: no Constipation: no Bladder/Urinary Changes: None Pain: Yes, continued pain in hips, being followed by Palliative care, [facility], they increased dose of Lyrica last week. Advised to reach out to them with an update. Fever: No Chills: No Cold sensitivity: No Numbness/weakness: No Edema: No Skin changes: No Itching: No Yellowing of skin or eyes: No Musculoskeletal/joint changes/issues No Bleeding issues: No Activity Level (0-100%): same as baseline Does the patient need interventions or same day appointment:No ADDITIONAL FOLLOW UP: The next outreach call is due on: na and was scheduled na The following lab tests are due: 10/18/24 Verified patient is aware of next appointment in the cancer center: Yes. Verified patient verbalized how to correctly refill the oral agent prescription. Yes Does the patient have any financial difficulties affording this medication? No Patient verbalizes understanding of when to seek Medical Attention? YES Patient verbalizes understanding of after-hours and weekend phone number? YES Patient verbalized importance of medication compliance in taking the oral agent as prescribed. Patient instructed to call if unable to comply. Sebastián Garcia RN documented in this encounter [facility] 09-16-2024 Telephone encounter Note Yes, I would still like him to see the dentist because he may have a lot of atrophy of the gum and potentially exposed bone. Orders filed. Monica Jung DO\ [facility] 09-16-2024 Miscellaneous Notes Yes, I would still like him to see the dentist because he may have a lot of atrophy of the gum and potentially exposed bone. Orders filed. Monica Jung DO\ Please see my response. Pend order for bone density test and vitamin D. Can provide his with dental clearance form. Monica Jung DO Spouse called asking to speak to clinical. She said spouse is very anxious. documented in this encounter [facility] 09-16-2024 Telephone encounter Note Added to previous [employer] message. Tg Womack LPN [facility] 09-16-2024 Miscellaneous Notes Added to previous [employer] message. Tg Womack LPN documented in this encounter [facility] 09-16-2024 Telephone encounter Note Please see my response. Pend order for bone density test and vitamin D. Can provide his with dental clearance form. Monica Jung DO [facility] 09-16-2024 Telephone encounter Note Spouse called asking to speak to clinical. She said spouse is very anxious. [facility] Work Phone: 09-14-2024 Note HNO ID: [id number] Author: MONICA JUNG DO Service: ? Author Type: Physician Type: Progress Notes Filed: 09/14/2024 16:44 Note Text: Oncologic problem(s): 1) Castrate sensitive prostate cancer. HPI: The patient is a 69-year-old male with past medical history significant for hyperlipidemia, hypertension, moderate COPD, GERD, previous cervical spine surgery, chronic low back pain and prostate cancer. Developed gross hematuria. PSA 50s. RP with penile implant. Bladder tear about a month later. PET--recurrence in prostate bed. 06/2021 4 weeks RT in [place] with GnRH agonist treatment (Lupron). Stopped due to side effects--Severe diarrhea and n/v. PSA undetectable 06/2022. Presumably from Lupron. CT A/P 11/18/2022: IMPRESSION: 1. Postoperative ileus versus changes of early small bowel obstruction within the right pelvis as discussed above. Short-term follow-up suggested. 2. Changes of recent prostatectomy and penile implant. There is a 6.0 x 2.7 x 9.5 cm nonencapsulated postoperative fluid collection within the right lower quadrant subcutaneous fat adjacent to the penile pump. 3. Mild free fluid. 4. Sacral insufficiency fractures. Medically managed for SBO. Saw Dr. Ariza at 11/10/2023: -Assessment/Plan I personally saw patient and counselled all visit on his diagnosis, kamilla history and coordination of his care. This is a 68 y.o. male man known with LN+ PC on ADT (d/c zytiga/pred and apa s/t AEs) with T > 50 and low PSA and negative recent PSMA (June 2022). He had incomplete salvage XRT but aborted s/t bowel tox. He is discontinuing ADT per pt preference - understands R/A of this decision. He was found with some lung abn, but PET was negative and bronch results pending. He is smoker. Will call him in few weeks to Fup on bronch results We discussed the clinical significance of diagnosis, goals of care and treatment plan in detail. Thank you for the opportunity to be involved in the care of Luis Angel Aguila. Please do not hesitate to reach out with any questions. Thank you. Path was negative. Per recent note from [facility] -Follow up sp EGD with biopsies 11/26/2023. 1 cm circumferential salmon colored mucosa seen at the GE junction at the time of EGD, consistent with short segment Oliver's esophagus. 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 We discussed the etiology of Oliver's and need for continued endoscopic surveillance due to risk of malignancy. Recommend patient continue on his PPI/H2 nabil, repeat EGD in 5 years for surveillance. OV 07/05/2024: Had a PSMA PET scan done at . 04/2024 Impression: 1. Status post prostatectomy without focally increased Ga68 PSMA expression within the prostate gland to suggest local recurrence. 2. Mild PSMA-avid sub-centimeter aortocaval lymph node, nereida metastasis cannot be excluded. Production Weigher images sent to PACS for review. 3. Mild PSMA expression within the lung nodule along right heart border which was not FDG avid on PET dated 10/01/2023, non-specific. Continued attention on follow-up imaging is recommended. 4. Mild Ga68 PSMA-avid within right iliac bone lesion, although not typical for prosthetic bone metastasis, continued attention on follow-up imaging is recommended. I'm not doing anymore of those shots. Hot flashes resolved. No symptoms of LUTS. LBP significantly improved after epidural injection. 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 OV 07/12/2024: Had repeat PET scan. Has occasional hip pain previously relieved with cortisone injections. Still working 12 to 14 hours a day. No pain getting in and out of the truck. Current therapy: 1) Radiation. Completed 07/29/2024. 2) Eligard. Presents for ongoing oncologic management. 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 Established with palliative care--Lyrica increased to TID. Has Xtandi on hand--got it yesterday. Planning to start tonight. Side effects from Eligard are tolerable. PAST MEDICAL HISTORY Diagnosis Date Abdominal aortic aneurysm seen on CT of chest for lung cancer screening COPD (chronic obstructive pulmonary disease) (HCC) Essential hypertension GERD (gastroesophageal reflux disease) Malignant neoplasm of prostate metastatic to bone (HCC) 07/13/2024 Mixed hyperlipidemia Nodule of right lung Osteoarthritis of multiple joints 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) S/P prostatectomy Tobacco use disorder PAST SURGICAL HISTORY Procedure Laterality Date ABDOMINAL SURGERY HX APPENDECTOMY COLONOSCOPY 12/12/2022 repeat 5 years FOOT RIGHT OP SURGERY Right FRACTURE SURGERY REMOVAL OF PROSTATE REPAIR ABDOMINAL HERNIA SHOULDER SURGERY HX Bilateral XR CERVICAL FUSION OR ALLERGIES Allergen Reactions Morphine Rash, Itching Prednisone Mental Status Change Current Outpatient Medi (more content not included)... [facility] 09-14-2024 History of Present illness Narrative Oncologic problem(s): 1) Castrate sensitive prostate cancer. HPI: The patient is a 69-year-old male with past medical history significant for hyperlipidemia, hypertension, moderate COPD, GERD, previous cervical spine surgery, chronic low back pain and prostate cancer. Developed gross hematuria. PSA 50s. RP with penile implant. Bladder tear about a month later. PET--recurrence in prostate bed. 06/2021 4 weeks RT in [place] with GnRH agonist treatment (Lupron). Stopped due to side effects--Severe diarrhea and n/v. PSA undetectable 06/2022. Presumably from Lupron. CT A/P 11/18/2022: IMPRESSION: 1. Postoperative ileus versus changes of early small bowel obstruction within the right pelvis as discussed above. Short-term follow-up suggested. 2. Changes of recent prostatectomy and penile implant. There is a 6.0 x 2.7 x 9.5 cm nonencapsulated postoperative fluid collection within the right lower quadrant subcutaneous fat adjacent to the penile pump. 3. Mild free fluid. 4. Sacral insufficiency fractures. Medically managed for SBO. Saw Dr. Ariza at 11/10/2023: -Assessment/Plan I personally saw patient and counselled all visit on his diagnosis, kamilla history and coordination of his care. This is a 68 y.o. male man known with LN+ PC on ADT (d/c zytiga/pred and apa s/t AEs) with T > 50 and low PSA and negative recent PSMA (June 2022). He had incomplete salvage XRT but aborted s/t bowel tox. He is discontinuing ADT per pt preference - understands R/A of this decision. He was found with some lung abn, but PET was negative and bronch results pending. He is smoker. Will call him in few weeks to Fup on bronch results We discussed the clinical significance of diagnosis, goals of care and treatment plan in detail. Thank you for the opportunity to be involved in the care of Luis Angel Aguila. Please do not hesitate to reach out with any questions. Thank you. Path was negative. Per recent note from [facility] -Follow up sp EGD with biopsies 11/26/2023. 1 cm circumferential salmon colored mucosa seen at the GE junction at the time of EGD, consistent with short segment Oliver's esophagus. 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 We discussed the etiology of Oliver's and need for continued endoscopic surveillance due to risk of malignancy. Recommend patient continue on his PPI/H2 nabil, repeat EGD in 5 years for surveillance. OV 07/05/2024: Had a PSMA PET scan done at . 04/2024 Impression: 1. Status post prostatectomy without focally increased Ga68 PSMA expression within the prostate gland to suggest local recurrence. 2. Mild PSMA-avid sub-centimeter aortocaval lymph node, nereida metastasis cannot be excluded. Production Weigher images sent to PACS for review. 3. Mild PSMA expression within the lung nodule along right heart border which was not FDG avid on PET dated 10/01/2023, non-specific. Continued attention on follow-up imaging is recommended. 4. Mild Ga68 PSMA-avid within right iliac bone lesion, although not typical for prosthetic bone metastasis, continued attention on follow-up imaging is recommended. I'm not doing anymore of those shots. Hot flashes resolved. No symptoms of LUTS. LBP significantly improved after epidural injection. 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 OV 07/12/2024: Had repeat PET scan. Has occasional hip pain previously relieved with cortisone injections. Still working 12 to 14 hours a day. No pain getting in and out of the truck. Current therapy: 1) Radiation. Completed 07/29/2024. 2) Eligard. Presents for ongoing oncologic management. 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 Established with palliative care--Lyrica increased to TID. Has Xtandi on hand--got it yesterday. Planning to start tonight. Side effects from Eligard are tolerable. 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 tiotropium-olodaterol (STIOLTO RESPIMAT) 2.5-2.5 mcg/actuation inhaler Inhale 2 puffs as instructed once daily. omeprazole (PRILOSEC) 40 mg capsule Take 1 capsule by mouth two times a day. lisinopril (ZESTRIL) 40 mg tablet Take 1 tablet by mouth once daily. famotidine (PEPCID) 40 mg tablet Take 1 tablet by mouth once daily. senna (SENOKOT) 8.6 mg tab Take 1 tablet by mouth two times a day. atorvastatin (LIPITOR) 40 mg tablet Take 1 tablet by mouth daily at bedtime. For cholesterol. atenolol (TENORMIN) 50 mg tablet Take one tablet daily along with 25 mg tablet to equal 75 mg daily atenolol (TENORMIN) 25 mg tablet Take one tablet daily along with the 50 mg tablet to equal 75 mg daily albuterol HFA (VENTOLIN HFA) 90 mcg/actuation inhaler Inhale 2 puffs as instructed every 4 hours as needed for wheezing/shortness of breath. pregabalin (LYRICA) 100 mg capsule Take 1 capsule by mouth three times a day for 30 days. enzalutamide (XTANDI) 80 mg tablet Take 2 tablets (160 mg) by mouth once daily. cyclobenzaprine (FLEXERIL) 10 mg tablet Take 1 tablet by mouth as directed. 1/2 to 1 tablet po qhs as needed for spasm acetaminophen (TYLENOL EXTRA STRENGTH) 500 mg tablet Take 1,000 mg by mouth every 8 hours as needed. aspirin, enteric coated (ASPIRIN, ENTERIC COATED) 81 mg EC tablet Take 81 mg by mouth once daily. cholecalciferol (VITAMIN D-3) 50 mcg (2,000 unit) tablet Take 2,000 Units by mouth once daily. beta-carotene,A,-vits C,E/mins (OCUVITE ORAL) Take 1 tablet by mouth once daily. calcium carbonate (CALCIUM 600 ORAL) Take 1 tablet by mouth once daily. Multivitamin capsule Take 1 capsule by mouth once daily. No current facility-administered medications for this visit. Social History Tobacco Use Smoking status: Every Day Current packs/day: 1.00 Average packs/day: 1 pack/day for 55.0 years (55.0 ttl pk-yrs) Types: Cigarettes Smokeless tobacco: Never Vaping Use Vaping status: Never Used Substance Use Topics Alcohol use: Yes Comment: occasionaly Drug use: Never Family History Problem Relation Age of Onset Lung Cancer Mother Dementia Father other (ETOH) Father Hypertension Brother Aneurysm Maternal Grandmother other (car accident) Maternal Grandfather other (car accident) Paternal Grandfather ROS: Constitutional: No fever. No drenching night sweats. No unexplained weight loss. Neuro: No recent CORTEZ. HEENT: No recent change in voice, vision or hearing. Resp: No cough, wheeze of hemoptysis. No shortness of breath at rest. Chronic stable ANDERSON. CVS: No exertional chest pain, PND or orthopnea. GI: No reflux, n/v, change in bowel habits. No abdominal pain, bloating or distension. No black or bloody stools. Endo: No hot flashes. No polyuria or polydipsia. No heat or cold intolerance. Musculoskeletal: See above Derm: No current rash. No history of jaundice. No diffuse pruritis. Heme: No unusual bleeding and unexplained bruising. Psych: Normal mood. PHYSICAL EXAM: Vitals: Blood pressure 110/73, pulse 66, temperature 36.2 C (97.1 F), temperature source Tympanic, resp. rate 16, weight 79.6 kg (175 lb 8 oz), SpO2 98%. Well-appearing and in no acute distress. EYES: Sclerae are anicteric bilaterally. LYMPHATIC: There is no palpable cervical or supraclavicular adenopathy. CARDIOVASCULAR: Rhythm is regular. ABDOMEN: The abdomen is nondistended. Extremities: No swelling or edema. SKIN: No jaundice. MS: Antalgic gait left side. 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 Diagnosed with prostate cancer after developing gross hematuria. Underwent RP in [place]. Shortly thereafter he was started on ADT and radiation. Was not able to complete therapy secondary to severe diarrhea, nausea and vomiting. Had been receiving intermittent ADT. Significant hot flashes and mood swings with ADT. - He agreed to receive ADT once he started radiation. - Advised enzalutamide after completing palliative radiation to left pelvis/acetabulum. Discussed the rationale for enzalutamide. Plan: - Start Xtandi tonluca. - Continue Eligard injections every 3 months. - We will follow-up with him on the results of today's MRI of the left hip. MRI left hip. - Recheck PSA in October. - Office visit 10/26 Will discuss bisphosphonate therapy. -Follow up with PCP for other health issues. Portions of this documentation were copied and pasted from my previous office visit note dated 08/27/2024 in order to provide a cohesive continuity of the history. The note has been reviewed and edited and updated as necessary. I spent a total of 20 minutes on the date of the service which included preparing to see the patient, [id number] patient care, completing clinical documentation, counseling and educating the patient/family/caregiver. Monica Jung DO documented in this encounter [facility] 09-14-2024 Instructions Naima Sinha APRN.TOOL GRINDER SET UP OPERATOR GEAR - 09/14/2024 1:45 PM EDT - Continue taking amlodipine 5 mg daily, lisinopril 40 mg daily, and atenolol (25 mg + 50 mg tablets to total 75 mg daily) for blood pressure control. - Continue omeprazole twice daily and Pepcid once nightly at bedtime for stomach protection. - Stop the stool softener and start one Sennacot tablet at bedtime. - Continue pregabalin (Lyrica) 150 mg three times a day for pain management; use Tylenol as needed for arthritis discomfort. - Refill albuterol rescue inhaler for shortness of breath; use it when you feel out of breath. - Continue your cholesterol medicine as prescribed. - All prescription refills have been sent to [facility] pharmacy. - A pulmonology consultation has been requested to follow up on lung nodules and breathing concerns; the clinic will call you to schedule that appointment. documented in this encounter [facility] 09-14-2024 Note HNO ID: [id number] Author: NAIMA SINHA APRN.TOOL GRINDER SET UP OPERATOR [employer]AR Service: ? Author Type: Nurse Practitioner Type: Progress Notes Filed: 09/14/2024 14:23 Note Text: 09/14/2024 Patient presents with: F/U 6 months Recording using Teleport software for draft documentation of the visit was discussed with the patient/authorized promotional representative; all questions welcomed and answered. Patient/authorized promotional representative agreed to proceed SUBJECTIVE: This is a 69 year old that is here today for Above Complaints. Prostate Cancer with Bone Metastasis: - Followed by Dr. Jung; has an appointment today. - Scheduled for an MRI prior to the appointment. - Recently completed a round of radiation therapy. - Reports severe pain, rated 8-10/10. - Currently taking Lyrica 150 mg TID and Tylenol Arthritis for pain management. - Prescribed Oxycodone but has not taken it due to concerns about drug screening at work. - Desires to continue working as long as possible despite pain. Hypertension: - Blood pressure readings at home are consistent with today's reading. - Taking amlodipine 5 mg, lisinopril 40 mg, and atenolol 75 mg (25 mg and 50 mg tablets). 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 COPD: - Reports increased dyspnea and productive cough with phlegm. - Uses albuterol inhaler PRN; requests a refill. - Continues to smoke; denies interest in smoking cessation. Aortic Aneurysm: - Diagnosed with aortic ectasia measuring up to 4.[address] scan. - Advised that intervention is not necessary until it reaches 5 cm. Gastroesophageal Reflux Disease: - Taking omeprazole BID and Pepcid at bedtime. - Recently switched from a stool softener to Senokot at bedtime. Hyperlipidemia: - Taking a cholesterol-lowering medication. 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 (Patient taking differently: Take 150 mg by mouth three times a day.) enzalutamide (XTANDI) 80 mg tablet Take 2 tablets (160 mg) by mouth once daily. cyclobenzaprine (FLEXERIL) 10 mg tablet Take 1 tablet by mouth as directed. 1/2 to 1 tablet po qhs as needed for spasm acetaminophen (TYLENOL EXTRA STRENGTH) 500 mg tablet Take 1,000 mg by mouth every 8 hours as needed. aspirin, enteric coated (ASPIRIN, ENTERIC COATED) 81 mg EC tablet Take 81 mg by mouth once daily. cholecalciferol (VITAMIN D-3) 50 mcg (2,000 unit) tablet Take 2,000 Units by mouth once daily. beta-carotene,A,-vits C,E/mins (OCUVITE ORAL) Take 1 tablet by mouth once daily. calcium carbonate (CALCIUM 600 ORAL) Take 1 tablet by mouth once daily. Multivitamin capsule Take 1 capsule by mouth once daily. amLODIPine (NORVASC) 5 mg tablet Take 1 tablet by mouth once daily. tiotropium-olodaterol (STIOLTO RESPIMAT) 2.5-2.5 mcg/actuation inhaler Inhale 2 puffs as instructed once daily. omeprazole (PRILOSEC) 40 mg capsule Take 1 capsule by mouth two times a day. lisinopril (ZESTRIL) 40 mg tablet Take 1 tablet by mouth once daily. famotidine (PEPCID) 40 mg tablet Take 1 tablet by mouth once daily. senna (SENOKOT) 8.6 mg tab Take 1 tablet by mouth two times a day. atorvastatin (LIPITOR) 40 mg tablet Take 1 tablet by mouth daily at bedtime. For cholesterol. atenolol (TENORMIN) 50 mg tablet Take one tablet daily along with 25 mg tablet to equal 75 mg daily atenolol (TENORMIN) 25 mg tablet Take one tablet daily along with the 50 mg tablet to equal 75 mg daily albuterol HFA (VENTOLIN HFA) 90 mcg/actuation inhaler Inhale 2 puffs as instructed every 4 hours as needed for wheezing/shortness of breath. No current facility-administered medications for this visit. Medications and allergies reviewed by this provider. SOCIAL HISTORY Social History Tobacco Use Smoking status: Every Day Current packs/day: 1.00 Average packs/day: 1 pack/day for 55.0 years (55.0 ttl pk-yrs) Types: Cigarettes Smokeless tobacco: Never Vaping Use Vaping status: Never Used Substance Use Topics Alcohol use: Yes Comment: occasionaly Drug use: Never REVIEW OF SYSTEMS All other reviewed and negative other than HPI. OBJECTIVE: BP 104/68 Pulse (!) 57 Resp 18 Wt 79.8 kg (176 lb) SpO2 95% BMI 25.48 kg/m? . Vital signs reviewed by this provider. GENERAL: NAD, alert and oriented. SKIN: Unremarkable, no rash or skin lesions to exposed skin HEAD: Normocephalic. EYES: conjunctiva clear. LUNGS: C (more content not included)... [facility] 09-14-2024 History of Present illness Narrative 09/14/2024 Patient presents with: F/U 6 months Recording using Teleport software for draft documentation of the visit was discussed with the patient/authorized promotional representative; all questions welcomed and answered. Patient/authorized promotional representative agreed to proceed SUBJECTIVE: This is a 69 year old that is here today for Above Complaints. Prostate Cancer with Bone Metastasis: - Followed by Dr. Jung; has an appointment today. - Scheduled for an MRI prior to the appointment. - Recently completed a round of radiation therapy. - Reports severe pain, rated 8-10/10. - Currently taking Lyrica 150 mg TID and Tylenol Arthritis for pain management. - Prescribed Oxycodone but has not taken it due to concerns about drug screening at work. - Desires to continue working as long as possible despite pain. Hypertension: - Blood pressure readings at home are consistent with today's reading. - Taking amlodipine 5 mg, lisinopril 40 mg, and atenolol 75 mg (25 mg and 50 mg tablets). 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 COPD: - Reports increased dyspnea and productive cough with phlegm. - Uses albuterol inhaler PRN; requests a refill. - Continues to smoke; denies interest in smoking cessation. Aortic Aneurysm: - Diagnosed with aortic ectasia measuring up to 4.[address] scan. - Advised that intervention is not necessary until it reaches 5 cm. Gastroesophageal Reflux Disease: - Taking omeprazole BID and Pepcid at bedtime. - Recently switched from a stool softener to Senokot at bedtime. Hyperlipidemia: - Taking a cholesterol-lowering medication. 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 (Patient taking differently: Take 150 mg by mouth three times a day.) enzalutamide (XTANDI) 80 mg tablet Take 2 tablets (160 mg) by mouth once daily. cyclobenzaprine (FLEXERIL) 10 mg tablet Take 1 tablet by mouth as directed. 1/2 to 1 tablet po qhs as needed for spasm acetaminophen (TYLENOL EXTRA STRENGTH) 500 mg tablet Take 1,000 mg by mouth every 8 hours as needed. aspirin, enteric coated (ASPIRIN, ENTERIC COATED) 81 mg EC tablet Take 81 mg by mouth once daily. cholecalciferol (VITAMIN D-3) 50 mcg (2,000 unit) tablet Take 2,000 Units by mouth once daily. beta-carotene,A,-vits C,E/mins (OCUVITE ORAL) Take 1 tablet by mouth once daily. calcium carbonate (CALCIUM 600 ORAL) Take 1 tablet by mouth once daily. Multivitamin capsule Take 1 capsule by mouth once daily. amLODIPine (NORVASC) 5 mg tablet Take 1 tablet by mouth once daily. tiotropium-olodaterol (STIOLTO RESPIMAT) 2.5-2.5 mcg/actuation inhaler Inhale 2 puffs as instructed once daily. omeprazole (PRILOSEC) 40 mg capsule Take 1 capsule by mouth two times a day. lisinopril (ZESTRIL) 40 mg tablet Take 1 tablet by mouth once daily. famotidine (PEPCID) 40 mg tablet Take 1 tablet by mouth once daily. senna (SENOKOT) 8.6 mg tab Take 1 tablet by mouth two times a day. atorvastatin (LIPITOR) 40 mg tablet Take 1 tablet by mouth daily at bedtime. For cholesterol. atenolol (TENORMIN) 50 mg tablet Take one tablet daily along with 25 mg tablet to equal 75 mg daily atenolol (TENORMIN) 25 mg tablet Take one tablet daily along with the 50 mg tablet to equal 75 mg daily albuterol HFA (VENTOLIN HFA) 90 mcg/actuation inhaler Inhale 2 puffs as instructed every 4 hours as needed for wheezing/shortness of breath. No current facility-administered medications for this visit. Medications and allergies reviewed by this provider. SOCIAL HISTORY Social History Tobacco Use Smoking status: Every Day Current packs/day: 1.00 Average packs/day: 1 pack/day for 55.0 years (55.0 ttl pk-yrs) Types: Cigarettes Smokeless tobacco: Never Vaping Use Vaping status: Never Used Substance Use Topics Alcohol use: Yes Comment: occasionaly Drug use: Never REVIEW OF SYSTEMS All other reviewed and negative other than HPI. OBJECTIVE: BP 104/68 Pulse (!) 57 Resp 18 Wt 79.8 kg (176 lb) SpO2 95% BMI 25.48 kg/m . Vital signs reviewed by this provider. GENERAL: NAD, alert and oriented. SKIN: Unremarkable, no rash or skin lesions to exposed skin HEAD: Normocephalic. EYES: conjunctiva clear. LUNGS: Clear to auscultation bilaterally, no wheezes/rhonchi/rales. HEART: Regular rate and rhythm, no murmurs. No ectopy. EXTREMITIES: Normal, no deformities, no skin discoloration, no edema. . Latest Ref Rng 09/03/2024 Glucose 74 - 99 mg/dL 121 (H) BUN 9 - 24 mg/dL 19 Creatinine 0.73 - 1.22 mg/dL 1.01 Sodium 136 - 144 mmol/L 130 (L) Potassium 3.7 - 5.1 mmol/L 4.7 Chloride 98 - 107 mmol/L 97 (L) CO2 22 - 30 mmol/L 21 (L) Anion Gap 8 - 15 mmol/L 12 Calcium 8.5 - 10.2 mg/dL 10.0 eGFR >=60 mL/min/1.73m 80 Latest Ref Rng 08/19/2024 WBC 3.70 - 11.00 k/uL 8.67 RBC 4.20 - 6.00 m/uL 3.94 (L) Hemoglobin 13.0 - 17.0 g/dL 12.7 (L) Hematocrit 39.0 - 51.0 % 37.9 (L) MCV 80.0 - 100.0 fL 96.2 MCH 26.0 - 34.0 pg 32.2 MCHC 30.5 - 36.0 g/dL 33.5 RDW-CV 11.5 - 15.0 % 13.6 Platelet Count 150 - 400 k/uL 256 MPV 9.0 - 12.7 fL 9.1 Neut% % 58.6 Abs Neut (ANC) 1.45 - 7.50 k/uL 5.08 Lymph% % 18.9 Abs Lymph 1.00 - 4.00 k/uL 1.64 Letcher% % 14.6 Abs Letcher <0.87 k/uL 1.27 (H) Eosin% % 6.5 Abs Eosin <0.46 k/uL 0.56 (H) Baso% % 0.7 Abs Baso <0.11 k/uL 0.06 Immature Gran % % 0.7 IMMATURE GRANS (ABS) <0.10 k/uL 0.06 NRBC /100 WBC 0.0 Absolute nRBC <0.01 k/uL <0.01 DTYPE Auto Latest Ref Rng 12/12/2022 Cholesterol, Total <200 mg/dL 210 (H) Triglyceride <150 mg/dL 116 HDL Cholesterol >39 mg/dL 54 Non HDL Cholesterol <130 mg/dL 156 (H) Fasting Time hrs 29.5 VLDL Cholesterol <30 mg/dL 23 TC:HDL Ratio <5.10 3.89 LDL Cholesterol, Calculated <100 mg/dL 133 (H) LDL:HDL Ratio <2.54 2.46 Abdominal Aortic Aneurysm Screening Never done Depression Screening Never done Anxiety Screening Never done Hepatitis C Screening Never done Shingrix Vaccine(1 of 2) Never done RSV Vaccine(1 - Risk 60-74 years 1-dose series) Never done Covid-19 Vaccine( season) due on 12/07/2023 Advance Directive Discussion Never done Influenza Vaccine(Season Ended) due on 12/06/2024 Lung Cancer Screening due on 05/17/2025 Annual PCP Team Chronic Disease Visit due on 09/14/2025 BP Controlled (<130/80) due on 09/14/2025 Diabetes Screening due on 09/04/2027 Lipid Screening due on 12/13/2027 Colorectal Cancer Screening due on 12/13/2027 DTaP,Tdap,Td Vaccine(2 - Td or Tdap) due on 06/10/2033 Pneumococcal Vaccine: 50+ Completed 1. Essential (primary) hypertension (I10) - Blood pressure is well-controlled. - Continue current antihypertensive regimen: amlodipine, lisinopril 40 mg, and atenolol 75 mg (25 mg and 50 mg tablets). - Refilled prescriptions for amlodipine, lisinopril, and atenolol. 2. Mixed hyperlipidemia (E78.2) - Continue current medication regimen. - Refilled prescription. 3. Chronic obstructive pulmonary disease, unspecified COPD type (HCC) (J44.9) - Experiencing shortness of breath and increased sputum production. - Using albuterol inhaler as needed; refilled prescription. - Consulted Pulmonology for further evaluation and management. 4. Nicotine dependence, cigarettes, uncomplicated (F17.210) - Continues to smoke; declined smoking cessation discussion. 5. 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 S/P prostatectomy (Z90.79) - Undergoing treatment with Dr. Jung; scheduled for MRI today. - Experiencing significant pain managed with Lyrica 150 mg TID and Tylenol Arthritis. - Prescribed oxycodone for severe pain but patient is hesitant to use due to work-related drug screening concerns. - Discussed potential need to reconsider work if pain becomes unmanageable. - Refilled all current medications including omeprazole BID, Pepcid at bedtime, and Senokot at bedtime. Naima Sinha APRN.JAMES Prescription instructions reviewed with patient as applicable. Patient advised if symptoms do not improve or if symptoms worsen sooner, to contact their primary care physician. Potential red flag symptoms discussed with the patient. Reviewed appropriate action plan to take if red flag symptoms occur. Patient agreeable to treatment plan. Medical Decision Making: Problems: Moderate: 2+ stable chronic illnesses Data: Unique test(s) ordered: 1 Risk: Moderate: Drug management Medical Decision Making Level: 4 - Moderate documented in this encounter [facility] 09-13-2024 Telephone encounter Note Patient informed of Dr. Jung's response, stated understanding. Frank Grace RN [facility] 09-13-2024 Miscellaneous Notes Patient informed of Dr. Jung's response, stated understanding. Frank Grace RN I'll review with him tomorrow. Monica Jung DO Patient will receive Xtandi on Friday. Please advise when he can start and the follow-up plan. Patient has an OV with Dr. Jung on 09/14. Frank Grace RN ORAL ANTI-CANCER AGENTS EDUCATION patient called today for oral medication education of xtandi for Prostate Cancer Anticipated/Scheduled start date: TBD READINESS TO LEARN Cognitive Ability: Alert and oriented Motivation to Learn: Interested Family Support: Unable to assess - Family not present Instruction Provided to: Patient Patient learns best by: Multiple Methods Factors affecting learning: None Physical limitation affecting learning: None CAMPOS ASSESSMENT: 1.) Verified that patient knows that the oral agents are for cancer and are taken by mouth. Yes 2.) Medication review completed during visit. Yes 3.) Patient is able to swallow pills. Yes 4.) Patient is able to read the drug label/information. Yes 5.) Patient is able to open the medication bottles and packages. Yes 6.) Has patient taken other pills for cancer? No 7.) Is patient experiencing any symptoms that would affect their ability to keep down pills, for example nausea or vomiting? No 8.) Verified that patient understands prescription delivery, benefit investigation and refill process. Yes DRUG-SPECIFIC EDUCATION: 1.) Verified patient knows the drug name. Yes 2.) Verified patient understands the dose and schedule of oral anti cancer agent. Yes 3.) Verified patient knows what to do if a medication dose is missed. Yes 4.) Verified patient understands where to store the drug. Yes 5.) Verified patient understands potential side effects and how to manage them. Yes 6.)Verified patient understands handling precautions of oral anti cancer agent. Yes 7.) Verified patient was given written instructions and understands when and whom to call with questions. Yes 8.) Verified patient understands where and how to return drug. Yes 9.) Verified patient received drug specific adult education handout and neutropenic wallet card Yes EVALUATE: The patient demonstrated an understanding of all the above education using the teach-back method. Yes Instructed to call us with any questions, concerns, and/or unresolved symptoms. Will continue to follow up and provide reinforcement of teaching topics as needed. Frank Grace RN documented in this encounter [facility] 09-13-2024 Telephone encounter Note I'll review with him tomorrow. Monica Jung DO [facility] 09-10-2024 Telephone encounter Note Patient will receive Xtandi on Friday. Please advise when he can start and the follow-up plan. Patient has an OV with Dr. Jung on 09/14. Frank Grace RN [facility] 09-10-2024 Telephone encounter Note ORAL ANTI-CANCER AGENTS EDUCATION patient called today for oral medication education of xtandi for Prostate Cancer Anticipated/Scheduled start date: TBD READINESS TO LEARN Cognitive Ability: Alert and oriented Motivation to Learn: Interested Family Support: Unable to assess - Family not present Instruction Provided to: Patient Patient learns best by: Multiple Methods Factors affecting learning: None Physical limitation affecting learning: None CAMPOS ASSESSMENT: 1.) Verified that patient knows that the oral agents are for cancer and are taken by mouth. Yes 2.) Medication review completed during visit. Yes 3.) Patient is able to swallow pills. Yes 4.) Patient is able to read the drug label/information. Yes 5.) Patient is able to open the medication bottles and packages. Yes 6.) Has patient taken other pills for cancer? No 7.) Is patient experiencing any symptoms that would affect their ability to keep down pills, for example nausea or vomiting? No 8.) Verified that patient understands prescription delivery, benefit investigation and refill process. Yes DRUG-SPECIFIC EDUCATION: 1.) Verified patient knows the drug name. Yes 2.) Verified patient understands the dose and schedule of oral anti cancer agent. Yes 3.) Verified patient knows what to do if a medication dose is missed. Yes 4.) Verified patient understands where to store the drug. Yes 5.) Verified patient understands potential side effects and how to manage them. Yes 6.)Verified patient understands handling precautions of oral anti cancer agent. Yes 7.) Verified patient was given written instructions and understands when and whom to call with questions. Yes 8.) Verified patient understands where and how to return drug. Yes 9.) Verified patient received drug specific adult education handout and neutropenic wallet card Yes EVALUATE: The patient demonstrated an understanding of all the above education using the teach-back method. Yes Instructed to call us with any questions, concerns, and/or unresolved symptoms. Will continue to follow up and provide reinforcement of teaching topics as needed. Frank Grace RN [facility] 09-08-2024 Telephone encounter Note Palliative referral faxed to [facility]. . Tg Womack LPN [facility] 09-08-2024 Miscellaneous Notes Palliative referral faxed to [facility]. . Tg Womack LPN Palliative care referral. Monica Jung DO documented in this encounter [facility] 09-07-2024 Telephone encounter Note Palliative care referral. Monica Jung DO [facility] 09-06-2024 Telephone encounter Note Patient is scheduled with Naiam on 09/14/2024. Destinee Stallworth RN [facility] 09-06-2024 Telephone encounter Note Prescription Refill Information The patient has been identified by name and date of : Yes Caregiver verified no other encounters exist for this prescription request: Yes Caregiver confirmed with patient/requestor that no other refills are due, in the near future, with this provider at this time: Yes The last office visit in the department: 03/01/24 Does the patient have a future office visit with this provider/department: Yes, 09/14/24 Requested Prescriptions Pending Prescriptions Disp Refills omeprazole (PRILOSEC) 40 mg capsule 180 capsule 0 Sig: Take 1 capsule by mouth two times a day. Rudy Stearns LPN September 06, 2024 10:45 AM [facility] 09-06-2024 Miscellaneous Notes Patient is scheduled with Naima on 09/14/2024. Destinee Stallworth RN Patient is due for follow-up. Please assist in making appointment. Naima Sinha APRN.CNP Prescription Refill Information The patient has been identified by name and date of : Yes Caregiver verified no other encounters exist for this prescription request: Yes Caregiver confirmed with patient/requestor that no other refills are due, in the near future, with this provider at this time: Yes The last office visit in the department: 03/01/24 Does the patient have a future office visit with this provider/department: No- Message left for spouse that patient past due for OV last routine OV over a year ago advised needs appointment. Requested Prescriptions Pending Prescriptions Disp Refills atenolol (TENORMIN) 50 mg tablet 90 tablet 0 Sig: Take one tablet daily along with 25 mg tablet to equal 75 mg daily atorvastatin (LIPITOR) 40 mg tablet 90 tablet 0 Sig: Take 1 tablet by mouth daily at bedtime. For cholesterol. lisinopril (ZESTRIL) 40 mg tablet 90 tablet 0 Sig: Take 1 tablet by mouth once daily. Amna Renner LPN September 06, 2024 8:05 AM documented in this encounter [facility] 09-06-2024 Miscellaneous Notes Prescription Refill Information The patient has been identified by name and date of : Yes Caregiver verified no other encounters exist for this prescription request: Yes Caregiver confirmed with patient/requestor that no other refills are due, in the near future, with this provider at this time: Yes The last office visit in the department: 03/01/24 Does the patient have a future office visit with this provider/department: Yes, 09/14/24 Requested Prescriptions Pending Prescriptions Disp Refills omeprazole (PRILOSEC) 40 mg capsule 180 capsule 0 Sig: Take 1 capsule by mouth two times a day. Rudy Stearns LPN September 06, 2024 10:45 AM documented in this encounter [facility] 09-06-2024 Telephone encounter Note Patient is due for follow-up. Please assist in making appointment. Naima Sinha APRN.CNP [facility] 09-06-2024 Telephone encounter Note Prescription Refill Information The patient has been identified by name and date of : Yes Caregiver verified no other encounters exist for this prescription request: Yes Caregiver confirmed with patient/requestor that no other refills are due, in the near future, with this provider at this time: Yes The last office visit in the department: 03/01/24 Does the patient have a future office visit with this provider/department: No- Message left for spouse that patient past due for OV last routine OV over a year ago advised needs appointment. Requested Prescriptions Pending Prescriptions Disp Refills atenolol (TENORMIN) 50 mg tablet 90 tablet 0 Sig: Take one tablet daily along with 25 mg tablet to equal 75 mg daily atorvastatin (LIPITOR) 40 mg tablet 90 tablet 0 Sig: Take 1 tablet by mouth daily at bedtime. For cholesterol. lisinopril (ZESTRIL) 40 mg tablet 90 tablet 0 Sig: Take 1 tablet by mouth once daily. Amna Renner LPN September 06, 2024 8:05 AM [facility] 09-01-2024 Telephone encounter Note Scheduled MRI with Barb. Stephens requests 08/27 xray results to be sent thru My Chart. [facility] Work Phone: 09-01-2024 Miscellaneous Notes Scheduled MRI with Barb. Stephens requests 08/27 xray results to be sent thru My Chart. I have order for left hip MRI in. Please go ahead and schedule. Monica Jung DO documented in this encounter [facility] 09-01-2024 Telephone encounter Note I have order for left hip MRI in. Please go ahead and schedule. Monica Jung DO [facility] 08-27-2024 Note HNO ID: [id number] Author: ?, ?, ? Service: ? Author Type: ? Type: Progress Notes Filed: 09/07/2024 15:35 Note Text: Patient has been enrolled in a new mart for Dx: Prostate Cancer through [facility] active 04/07/24 to 04/06/25. Corin Hernandez CPhT [facility], Oncology P: / F: [facility] 08-27-2024 Note HNO ID: [id number] Author: BREEZY SCHAFER RPh Service: ? Author Type: Pharmacist Type: Progress Notes Filed: 09/09/2024 14:29 Note Text: [facility] received prescription(s) for Xtandi from Dr. Jung's office. Benefits investigation was conducted, indicating that a prior authorization is required. PA was approved with details listed below: Plan Name: [employer] Plan Agent/Campos: [id number] Phone/ PA reference number: [id number] Approval Dates: 04/07/24 - 04/06/25 Pt's copay is $0 with mart. Shipment has been arranged, and pt will receive medication(s) on 09/13. Pt has been instructed to follow-up with clinic to confirm start date. A full drug interaction report was conducted, and 2 drug interactions identified. Category C interactions with atorvastatin and omeprazole. Xtandi may decrease concentration of both. Monitor for reduced effectiveness I reviewed with patient's , Kat, appropriate dose and dosing frequency, administration directions (Take with or without food at approximately the same time each day. Swallow whole), potential side effects, ability to self-administer and proper storage and handling requirements. S/he expressed understanding of the information we provided today, and received our contact information for the pharmacy if s/he had any other questions. Office/provider notes have been reviewed prior to dispensing the medication. 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 cyclobenzaprine (FLEXERIL) 10 mg tablet Take 1 tablet by mouth as directed. 1/2 to 1 tablet po qhs as needed for spasm albuterol HFA (VENTOLIN HFA) 90 mcg/actuation inhaler Inhale 2 Puffs as instructed every 4 hours as needed for wheezing/shortness of breath. tiotropium-olodaterol (STIOLTO RESPIMAT) 2.5-2.5 mcg/actuation inhaler Inhale 2 Puffs as instructed once daily. famotidine (PEPCID) 40 mg tablet Take 40 mg by mouth once daily. acetaminophen (TYLENOL EXTRA STRENGTH) 500 mg tablet Take 1,000 mg by mouth every 8 hours as needed. aspirin, enteric coated (ASPIRIN, ENTERIC COATED) 81 mg EC tablet Take 81 mg by mouth once daily. docusate sodium (STOOL SOFTENER) 100 mg capsule Take 100 mg by mouth twice daily. cholecalciferol (VITAMIN D-3) 50 mcg (2,000 unit) tablet Take 2,000 Units by mouth once daily. beta-carotene,A,-vits C,E/mins (OCUVITE ORAL) Take 1 tablet by mouth once daily. calcium carbonate (CALCIUM 600 ORAL) Take 1 tablet by mouth once daily. Multivitamin capsule Take 1 capsule by mouth once daily. No current facility-administered medications on file prior to visit. 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) 01/31/2023 Erik Cota MD No Osteoarthritis of multiple joints 01/31/2023 Erik Cota MD No Mixed hyperlipidemia 01/31/2023 Erik Cota MD No GERD (gastroesophageal reflux disease) 01/31/2023 Erik Cota MD No Essential hypertension 01/31/2023 Erik Cota MD No COPD (chronic obstructive pulmonary disease) (HCC) 01/31/2023 Erik Cota MD No Screening for colon cancer 12/12/2022 Devin Sanchez MD No Nicotine use disorder, F17.2 11/20/2022 Eugenio Damon DO No Ileus (HCC) 11/20/2022 Bridgette Hand APRN.LATHMAKER No Small bowel obstruction (HCC) 11/19/2022 Beni Dewey MD No GI bleed 11/19/2022 Beni Dewey MD No 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 Patient confirmed: Yes Med/dose confirmed: Yes Supplies needed: Welcome packet Missed doses: No Estimated days supply on hand: 0 Copay amount: 0 Delivery method: FedEx Signature required: Waived on patient request Delivery address: [address] [place] [address] Delivery date: 09/13/24 Questions or concerns for the pharmacist?: Yes Patient questions/concerns: Medication cost, Co-pay/assistance programs, Medication dose, Medication route, Medication storage, Side effects, Delivery Did you have any side effects believed to be related to this medication, that resulted in hospitalization?: No [facility] CLINICAL ASSESSMENT - HEMATOLOGY ONCOLOGY V6: Ivent complete: No Assessment to use: Initial testing and baseline labs: Yes R (more content not included)... [facility] 08-27-2024 Note HNO ID: [id number] Author: BREEZY SCHAFER RPh Service: ? Author Type: Registered Nurse Type: Progress Notes Filed: 09/07/2024 15:21 Note Text: [facility] received prescription(s) for Xtandi from Dr. Jung's office. PA was approved with details listed below. Plan Name: [employer] Plan Agent/Campos: [id number] Phone/ PA reference number: [id number] Approval Dates: 04/07/24 - 04/06/25 Prescriptions will now be processed through [facility] for determination of next steps. HADLEY Ramirez RN Addendum September 07, 2024 3:20 PM : The first copay is high ~$661 due to the $2000 maximum out of pocket limit or cap on prescription drug expenses. After this fill the patient has reached their cap, and it is expected his/her copays will be $0 thereafter. A mart is currently available for patient's diagnosis. We will be contacting patient to discuss affordability and enroll into available funding program if appropriate. Breezy Schafer, MihaiD Clinical Pharmacist, Oncology [facility] P: ; F: Pool: P [facility] Pool #: [id number] [facility] 08-27-2024 Note HNO ID: [id number] Author: ?, ?, ? Service: ? Author Type: ? Type: Progress Notes Filed: 08/27/2024 15:46 Note Text: [facility] received prescription(s) for Xtandi from Dr. Jung's office. Benefits investigation was conducted, indicating that a prior authorization is required by patient's insurance plan with [employer]. Encounter will be updated once prior authorization has been submitted by [facility]. Corin Hernandez CPhT [facility], On[facility] P: / F: [facility] 08-27-2024 Note HNO ID: [id number] Author: MONICA JUNG, Service: ? Author Type: Physician Type: Progress Notes Filed: 08/27/2024 17:50 Note Text: Oncologic problem(s): 1) Castrate sensitive prostate cancer. HPI: The patient is a 69-year-old male with past medical history significant for hyperlipidemia, hypertension, moderate COPD, GERD, previous cervical spine surgery, chronic low back pain and prostate cancer. Developed gross hematuria. PSA 50s. RP with penile implant. Bladder tear about a month later. PET--recurrence in prostate bed. 06/2021 4 weeks RT in [place] with GnRH agonist treatment (Lupron). Stopped due to side effects--Severe diarrhea and n/v. PSA undetectable 06/2022. Presumably from Lupron. CT A/P 11/18/2022: IMPRESSION: 1. Postoperative ileus versus changes of early small bowel obstruction within the right pelvis as discussed above. Short-term follow-up suggested. 2. Changes of recent prostatectomy and penile implant. There is a 6.0 x 2.7 x 9.5 cm nonencapsulated postoperative fluid collection within the right lower quadrant subcutaneous fat adjacent to the penile pump. 3. Mild free fluid. 4. Sacral insufficiency fractures. Medically managed for SBO. Saw Dr. Ariza at 11/10/2023: -Assessment/Plan I personally saw patient and counselled all visit on his diagnosis, kamilla history and coordination of his care. This is a 68 y.o. male man known with LN+ PC on ADT (d/c zytiga/pred and apa s/t AEs) with T > 50 and low PSA and negative recent PSMA (June 2022). He had incomplete salvage XRT but aborted s/t bowel tox. He is discontinuing ADT per pt preference - understands R/A of this decision. He was found with some lung abn, but PET was negative and bronch results pending. He is smoker. Will call him in few weeks to Fup on bronch results We discussed the clinical significance of diagnosis, goals of care and treatment plan in detail. Thank you for the opportunity to be involved in the care of Luis Angel Aguila. Please do not hesitate to reach out with any questions. Thank you. Path was negative. Per recent note from [facility] -Follow up sp EGD with biopsies 11/26/2023. 1 cm circumferential salmon colored mucosa seen at the GE junction at the time of EGD, consistent with short segment Oliver's esophagus. 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 We discussed the etiology of Oliver's and need for continued endoscopic surveillance due to risk of malignancy. Recommend patient continue on his PPI/H2 nabil, repeat EGD in 5 years for surveillance. OV 07/05/2024: Had a PSMA PET scan done at . 04/2024 Impression: 1. Status post prostatectomy without focally increased Ga68 PSMA expression within the prostate gland to suggest local recurrence. 2. Mild PSMA-avid sub-centimeter aortocaval lymph node, nereida metastasis cannot be excluded. Production Weigher images sent to PACS for review. 3. Mild PSMA expression within the lung nodule along right heart border which was not FDG avid on PET dated 10/01/2023, non-specific. Continued attention on follow-up imaging is recommended. 4. Mild Ga68 PSMA-avid within right iliac bone lesion, although not typical for prosthetic bone metastasis, continued attention on follow-up imaging is recommended. I'm not doing anymore of those shots. Hot flashes resolved. No symptoms of LUTS. LBP significantly improved after epidural injection. 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 OV 07/12/2024: Had repeat PET scan. Has occasional hip pain previously relieved with cortisone injections. Still working 12 to 14 hours a day. No pain getting in and out of the truck. Current therapy: 1) Radiation. Completed 07/29/2024. 2) Eligard. Presents for ongoing oncologic management. Interim history: Worsening b/l hip pain. L>>R. Can walk a while, but hurts badly enough has to sit down. In groin and down lateral thigh. 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 1/2 to 1 tablet po qhs as needed for spasm atenolol (TENORMIN) (more content not included)... [facility] 08-26-2024 Note HNO ID: [id number] Author: SOBIA OAKES MD Service: ? Author Type: Physician Type: Progress Notes Filed: 08/27/2024 13:41 Note Text: AMBULATORY TELEPHONE VISIT Luis Angel Aguila has consented to this telephone encounter. Persons Present: patient Chief Complaint/Reason: Four week follow-up after radiation treatment. HPI: Metastatic prostate cancer with bone metastasis in the left pelvis and pain s/p palliative radiation treatment finished on 07/29/24. He continues to have pain in the left hip aggravated with walking. He denies any nausea/diarrhea or skin changes. His most recent PSA was 0.33 and it decreased from 0.62 on 07/05/24. He had steroid injection to the L5-S1 on 08/16/24. Data Reviewed: Most recent labs Assessment: Although he had biochemical response with decrease in PSA from radiation treatment, his pain didn't improve. Perhaps his pain is more from other etiology. Previous MRI lumbar spine on 05/27/23 showed, Lumbar spondylosis and scoliosis with multiple levels of mild spinal canal stenosis. Moderate right subarticular recess effacement at L3-L4 secondary to small caudally directed extrusion...Up to severe bilateral foraminal stenosis at L5-S1. Steroid injection on 08/16/24 doesn't seem to help, though. Plan: He will see Dr. Jung tomorrow for follow-up. Total Time Spent: 10 minutes Sobia Oakes MD [facility] 08-20-2024 Telephone encounter Note Spoke w pt and US has been scheduled for 08/23. [facility] 08-20-2024 Miscellaneous Notes Spoke w pt and US has been scheduled for 08/23. Serum creatinine elevated. PSS Please schedule for ultrasound kidneys and bladder to rule out obstruction. Order is in . Pt would like for you to contact his Silvia to make those arrangements. Vivi Galarza LPN Serum creatinine elevated. Currently receiving radiation to the prostate. Please schedule for ultrasound kidneys and bladder to rule out obstruction. Monica Jung DO documented in this encounter [facility] 08-19-2024 Telephone encounter Note Serum creatinine elevated. PSS Please schedule for ultrasound kidneys and bladder to rule out obstruction. Order is in . Pt would like for you to contact his Silvia to make those arrangements. Vivi Galarza LPN [facility] 08-19-2024 Telephone encounter Note Serum creatinine elevated. Currently receiving radiation to the prostate. Please schedule for ultrasound kidneys and bladder to rule out obstruction. Monica Jung DO [facility] 08-16-2024 Note HNO ID: [id number] Author: AMADEO YEE MD Service: ? Author Type: Physician Type: Progress Notes Filed: 08/16/2024 15:12 Note Text: [facility] Date: 08/16/2024 Patient name: Luis Angel Aguila Physician performing procedure: Amadeo Yee MD Diagnosis: (M54.16) Lumbar radiculopathy (primary encounter diagnosis) Procedure: Epidural Steroid Injection - Interlaminar Approach (ILESI) under fluoroscopic guidance MIDLINE at L5-S1 Injectate: A total of 5 ml volume was injected The injectate consisted of: 1 ml of Dexamethasone (10mg/ml), 1 ml of Lidocaine 1%, The remainder consisting of Normal Saline Comments: None Improvement after today's procedure: as per nursing report HPI: Luis Angel Aguila is an 69 year old MALE who presents today, in pain, for the procedure noted above. Review of Systems: Pertinent Positives: MSK: pain in the region being treated Neuro: no weakness or numbness in the region being treated Skin: Negative (No itching) Eyes: Negative (No blurred or double vision) Respiratory: Negative (No Cough, [id number], Dyspnea on exertion, wheezing) Cardiovascular: Negative (No Chest Pain, Tightness, Pressure, Palpitations) Gastrointestinal: Negative (No Abdominal pain, Nausea, Vomiting, Constipation, Diarrhea) Genitourinary: Negative (No dysuria) Hematologic: Negative (No bleeding, bruising) OB: is Denied or Not Applicable Endocrine: Negative (No hot/cold intolerance) Psychiatric: Negative (No depression, anxiety or suicidal ideation) PAST MEDICAL HISTORY Diagnosis Date COPD (chronic obstructive pulmonary disease) (HCC) Essential hypertension GERD (gastroesophageal reflux disease) Malignant neoplasm of prostate metastatic to bone (HCC) 07/13/2024 Mixed hyperlipidemia Nodule of right lung Osteoarthritis of multiple joints 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) S/P prostatectomy Tobacco use disorder PAST SURGICAL HISTORY Procedure Laterality Date ABDOMINAL SURGERY HX APPENDECTOMY COLONOSCOPY 12/12/2022 repeat 5 years FOOT RIGHT OP SURGERY Right FRACTURE SURGERY REMOVAL OF PROSTATE REPAIR ABDOMINAL HERNIA SHOULDER SURGERY HX Bilateral XR CERVICAL FUSION OR FAMILY HISTORY Problem Relation Age of Onset Lung Cancer Mother Dementia Father other (ETOH) Father Hypertension Brother Aneurysm Maternal Grandmother other (car accident) Maternal Grandfather other (car accident) Paternal Grandfather Social History Tobacco Use Smoking status: Every Day Current packs/day: 1.00 Average packs/day: 1 pack/day for 55.0 years (55.0 ttl pk-yrs) Types: Cigarettes Smokeless tobacco: Never Tobacco comments: Pt has cut back to 1/2 pack daily. Vaping Use Vaping status: Never Used Substance Use Topics Alcohol use: Yes Comment: occasionaly Drug use: Never Current Outpatient Medications on File Prior to Visit Medication Sig cyclobenzaprine (FLEXERIL) 10 mg tablet Take 1 tablet by mouth as directed. 1/2 to 1 tablet po qhs as needed for spasm atenolol (TENORMIN) 50 mg tablet Take one tablet daily along with 25 mg tablet to equal 75 mg daily atorvastatin (LIPITOR) 40 mg tablet Take 1 tablet by mouth daily at bedtime. For cholesterol. lisinopril (ZESTRIL) 40 mg tablet Take 1 tablet by mouth once daily. pregabalin (LYRICA) 100 mg capsule Take 1 capsule by mouth three times a day for 180 days. albuterol HFA (VENTOLIN HFA) 90 mcg/actuation inhaler Inhale 2 Puffs as instructed every 4 hours as needed for wheezing/shortness of breath. famotidine (PEPCID) 40 mg tablet Take 40 mg by mouth once daily. acetaminophen (TYLENOL EXTRA STRENGTH) 500 mg tablet Take 1,000 mg by mouth every 8 hours as needed. aspirin, enteric coated (ASPIRIN, ENTERIC COATED) 81 mg EC tablet Take 81 mg by mouth once daily. docusate sodium (STOOL SOFTENER) 100 mg capsule Take 100 mg by mouth twice daily. cholecalciferol (VITAMIN D-3) 50 mcg (2,000 unit) tablet Take 2,000 Units by mouth once daily. beta-carotene,A,-vits C,E/mins (OCUVITE ORAL) Take 1 tablet by mouth once daily. calcium carbonate (CALCIUM 600 ORAL) Take 1 tablet by mouth once daily. Multivitamin capsule Take 1 capsule by mouth once daily. omeprazole (PRILOSEC) 40 mg capsule Take 1 capsule by mouth two times a day. tiotropium-olodaterol (STIOLTO RESPIMAT) 2.5-2.5 mcg/actuation inhaler Inhale 2 Puffs as instructed once daily. No current facility-administered medications on file prior to visit. Objective Exam: Vitals: As per nursing documentation Constitutional: Normal Appearance, Oriented to Time, Place and Person Head: No lacerations, no external signs of trauma Eyes: Conjunctiva clear. No discharge from the eyes Cardiovascular: Appears well-perfused Pulmonary: Non-labored respirations Abdominal: Non-distended Skin: No visible rashes or ecchymosis (more content not included)... [facility] 08-16-2024 History of Present illness Narrative [facility] Date: 08/16/2024 Patient name: Luis Angel Aguila Physician performing procedure: Amadeo Yee MD Diagnosis: (M54.16) Lumbar radiculopathy (primary encounter diagnosis) Procedure: Epidural Steroid Injection - Interlaminar Approach (ILESI) under fluoroscopic guidance MIDLINE at L5-S1 Injectate: A total of 5 ml volume was injected The injectate consisted of: 1 ml of Dexamethasone (10mg/ml), 1 ml of Lidocaine 1%, The remainder consisting of Normal Saline Comments: None Improvement after today's procedure: as per nursing report HPI: Luis Angel Aguila is an 69 year old MALE who presents today, in pain, for the procedure noted above. Review of Systems: Pertinent Positives: MSK: pain in the region being treated Neuro: no weakness or numbness in the region being treated Skin: Negative (No itching) Eyes: Negative (No blurred or double vision) Respiratory: Negative (No Cough, [id number], Dyspnea on exertion, wheezing) Cardiovascular: Negative (No Chest Pain, Tightness, Pressure, Palpitations) Gastrointestinal: Negative (No Abdominal pain, Nausea, Vomiting, Constipation, Diarrhea) Genitourinary: Negative (No dysuria) Hematologic: Negative (No bleeding, bruising) OB: is Denied or Not Applicable Endocrine: Negative (No hot/cold intolerance) Psychiatric: Negative (No depression, anxiety or suicidal ideation) PAST MEDICAL HISTORY Diagnosis Date COPD (chronic obstructive pulmonary disease) (HCC) Essential hypertension GERD (gastroesophageal reflux disease) Malignant neoplasm of prostate metastatic to bone (HCC) 07/13/2024 Mixed hyperlipidemia Nodule of right lung Osteoarthritis of multiple joints 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) S/P prostatectomy Tobacco use disorder PAST SURGICAL HISTORY Procedure Laterality Date ABDOMINAL SURGERY HX APPENDECTOMY COLONOSCOPY 12/12/2022 repeat 5 years FOOT RIGHT OP SURGERY Right FRACTURE SURGERY REMOVAL OF PROSTATE REPAIR ABDOMINAL HERNIA SHOULDER SURGERY HX Bilateral XR CERVICAL FUSION OR FAMILY HISTORY Problem Relation Age of Onset Lung Cancer Mother Dementia Father other (ETOH) Father Hypertension Brother Aneurysm Maternal Grandmother other (car accident) Maternal Grandfather other (car accident) Paternal Grandfather Social History Tobacco Use Smoking status: Every Day Current packs/day: 1.00 Average packs/day: 1 pack/day for 55.0 years (55.0 ttl pk-yrs) Types: Cigarettes Smokeless tobacco: Never Tobacco comments: Pt has cut back to 1/2 pack daily. Vaping Use Vaping status: Never Used Substance Use Topics Alcohol use: Yes Comment: occasionaly Drug use: Never Current Outpatient Medications on File Prior to Visit Medication Sig cyclobenzaprine (FLEXERIL) 10 mg tablet Take 1 tablet by mouth as directed. 1/2 to 1 tablet po qhs as needed for spasm atenolol (TENORMIN) 50 mg tablet Take one tablet daily along with 25 mg tablet to equal 75 mg daily atorvastatin (LIPITOR) 40 mg tablet Take 1 tablet by mouth daily at bedtime. For cholesterol. lisinopril (ZESTRIL) 40 mg tablet Take 1 tablet by mouth once daily. pregabalin (LYRICA) 100 mg capsule Take 1 capsule by mouth three times a day for 180 days. albuterol HFA (VENTOLIN HFA) 90 mcg/actuation inhaler Inhale 2 Puffs as instructed every 4 hours as needed for wheezing/shortness of breath. famotidine (PEPCID) 40 mg tablet Take 40 mg by mouth once daily. acetaminophen (TYLENOL EXTRA STRENGTH) 500 mg tablet Take 1,000 mg by mouth every 8 hours as needed. aspirin, enteric coated (ASPIRIN, ENTERIC COATED) 81 mg EC tablet Take 81 mg by mouth once daily. docusate sodium (STOOL SOFTENER) 100 mg capsule Take 100 mg by mouth twice daily. cholecalciferol (VITAMIN D-3) 50 mcg (2,000 unit) tablet Take 2,000 Units by mouth once daily. beta-carotene,A,-vits C,E/mins (OCUVITE ORAL) Take 1 tablet by mouth once daily. calcium carbonate (CALCIUM 600 ORAL) Take 1 tablet by mouth once daily. Multivitamin capsule Take 1 capsule by mouth once daily. omeprazole (PRILOSEC) 40 mg capsule Take 1 capsule by mouth two times a day. tiotropium-olodaterol (STIOLTO RESPIMAT) 2.5-2.5 mcg/actuation inhaler Inhale 2 Puffs as instructed once daily. No current facility-administered medications on file prior to visit. Objective Exam: Vitals: As per nursing documentation Constitutional: Normal Appearance, Oriented to Time, Place and Person Head: No lacerations, no external signs of trauma Eyes: Conjunctiva clear. No discharge from the eyes Cardiovascular: Appears well-perfused Pulmonary: Non-labored respirations Abdominal: Non-distended Skin: No visible rashes or ecchymosis Psychiatric: Mood appropriate for given condition Neurological: Gross movements are limited by pain, but otherwise unremarkable Data Reviewed: Nursing note and vitals reviewed. Additional imaging reviewed as appropriate Assessment and Plan: As noted above [place] protocol documentation / Pre-Procedure Checklist: Consent: Obtained in writing prior to procedure I had a nice discussion with the patient today about their current pain and the pathology that could be causing it We discussed different treatment options, including risks, benefits and alternatives. We agreed to proceed as previously discussed, or the plan was modified in accordance with the comments noted above Unless stated otherwise in the procedure note, the risks include but are not limited to infection, allergic reaction, increased pain, lack of therapeutic benefit, steroid reaction, nerve damage, paralysis, stroke, epidural hematoma, syncope, headache, respiratory or cardiac arrest, pneumothorax, and scar formation Once the plan was agreed upon, the patient gave written consent to proceed and was transported into the procedure room Surgical/Procedure pause or Time Out : Time Out was led by the physician in the procedure room, with the patient and all staff present and participating The following information was verified during the Time Out process: Patient name, patient date of , procedure site (marked), laterality, anticoagulants and allergies Procedure: The patient was prepped and draped in a sterile fashion in the prone position after informed consent was signed and all the patient's questions were answered including the risks, benefits, alternative treatment options, and prognosis. The risks are as mentioned above. Using the approach mentioned above, the region overlying the inferior lamina was localized under fluoroscopic visualization and the soft tissues overlying this structure were infiltrated with 2-4 cc. of 1% Lidocaine without Epinephrine. A #20 gauge, 3.5 inch Tuohy needle was inserted into the epidural space using the approach mentioned above. The epidural space was localized using loss of resistance after negative aspirate for air, blood, and CSF. A 2 cc volume of Omnipaque 300 was injected into the epidural space and the flow of contrast was observed to be epidural. Needle placement was confirmed with AP, oblique, and contralateral oblique imaging. The above injectate was injected without complication. Please see the nursing note for exact times (time out, procedure start, procedure end). After careful removal of the needle, there was minimal bleeding. The injection site was covered with appropriate sterile dressing. The patient was noted to have tolerated the procedure well and was discharged after an appropriate period of post-procedure observation. The patient was instructed to contact us if there were any complications. The patient was advised to follow-up with the requesting physician within one to two weeks or as per their requested follow-up plan. Post procedure visit summary with written instructions was offered to the patient. Amadeo Yee MD Pain Management [facility] Order has been placed in the patient's chart with the following parameters for discharge from the physician: Patient is alert and oriented Vitals: Diastolic/Systolic +/- 20mmHg Respirations: 12-18 Pulse: 60-100 SpO2 is greater than or equal to 90% Patient has no nausea or vomiting Patient has no dizziness Pain level is +/- 2 from initial evaluation Dressing, dry and intact with no evidence of bleeding Criteria has been met, patient is okay to be discharged per the physician. Physician has gone in and evaluated the patient. Dressing dry and intact. No drainage noted. The patient denies nausea, numbness, tingling, weakness, shortness of breath, dizziness, or headache. Pain level 4/10. Vital signs within normal limits. Patient denied needing walked out by clinical staff and denied needing a wheelchair. Patient given discharge instructions and sent to transportation via ambulatory method. Patient left in good condition. Procedure to be performed: L5/S1 LUMBAR INTERLAMINAR EPIDURAL INJECTION Patient was wheeled on stretcher from pre op bay to procedure room and assisted onto the procedure tablePatient s procedure was performed in an [facility] Procedure room. Pause completed at each level by provider to verify correct level and laterality placement Pressure was applied to patient s injection site(s) and bleeding was minimal. Patient had no complaint of shortness of breath, dizziness, headache, numbness, tingling, weakness or complications from procedure. Patient was assisted from the procedure table onto the stretcher and wheeled into a post op bay. Patient was advised a clinician will be to obtain another set of vitals. Time Out: 1209 Confirmed patient name, date of , procedure site, laterality, and allergies Procedure Start: 1212 Procedure End: 1214 Review of Systems Constitutional: Positive for activity change, chills and unexpected weight change. Negative for fever. Gastrointestinal: Negative for bowel retention or incontinence Genitourinary: Negative for difficulty urinating. Negative for bladder retention or incontinence Musculoskeletal: Positive for arthralgias, back pain, gait problem, myalgias, neck pain and neck stiffness. Negative for joint swelling. Neurological: Positive for weakness and numbness. Negative for headaches. Psychiatric/Behavioral: Positive for dysphoric mood and sleep disturbance. Negative for suicidal ideas. The patient is not nervous/anxious. Radio Recorder's Name: silvia Are you on a blood thinner: n If yes, is a hold required: n Last dose of blood thinner: n INR Result today: n Do you require a Lovenox bridge:n Are you a diabetic:n Are you/or could you be : n Are you taking Xanax for the procedure: n Are you currently on a steroid? n Are you currently on an antibiotic: n documented in this encounter [facility] 08-16-2024 Note HNO ID: [id number] Author: ASHLEIGH ACOSTA LPN Service: ? Author Type: LICENSED NURSE Type: Progress Notes Filed: 08/16/2024 15:12 Note Text: Order has been placed in the patient's chart with the following parameters for discharge from the physician: Patient is alert and oriented Vitals: Diastolic/Systolic +/- 20mmHg Respirations: 12-18 Pulse: 60-100 SpO2 is greater than or equal to 90% Patient has no nausea or vomiting Patient has no dizziness Pain level is +/- 2 from initial evaluation Dressing, dry and intact with no evidence of bleeding Criteria has been met, patient is okay to be discharged per the physician. Physician has gone in and evaluated the patient. Dressing dry and intact. No drainage noted. The patient denies nausea, numbness, tingling, weakness, shortness of breath, dizziness, or headache. Pain level 4/10. Vital signs within normal limits. Patient denied needing walked out by clinical staff and denied needing a wheelchair. Patient given discharge instructions and sent to transportation via ambulatory method. Patient left in good condition. [facility] 08-16-2024 Note HNO ID: [id number] Author: LEO STANLEY LPN Service: ? Author Type: LICENSED NURSE Type: Progress Notes Filed: 08/16/2024 15:12 Note Text: Procedure to be performed: L5/S1 LUMBAR INTERLAMINAR EPIDURAL INJECTION Patient was wheeled on stretcher from pre op bay to procedure room and assisted onto the procedure tablePatient?s procedure was performed in an [facility] Procedure room. Pause completed at each level by provider to verify correct level and laterality placement Pressure was applied to patient?s injection site(s) and bleeding was minimal. Patient had no complaint of shortness of breath, dizziness, headache, numbness, tingling, weakness or complications from procedure. Patient was assisted from the procedure table onto the stretcher and wheeled into a post op bay. Patient was advised a clinician will be to obtain another set of vitals. Time Out: 1209 Confirmed patient name, date of , procedure site, laterality, and allergies Procedure Start: 1212 Procedure End: 1214 [facility] 08-16-2024 Instructions Ashleigh Acosta LPN - 08/16/2024 11:38 AM EDT PROCEDURE DISCHARGE INSTRUCTIONS 08/16/2024 Luis Angel Aguila 1955 Physician: Amadeo Yee MD Procedure: LUMBAR INTERLAMINAR EPIDURAL INJECTION Post Procedure Instructions: If sedation not given, no driving for 3 hours after the procedure., Rest the day of the procedure., You may resume normal activities the day after the procedure, as tolerated., Pain should gradually subside over the next 2-3 weeks., Avoid movements that may aggravate pain., Apply cold compresses to injection site if needed., If medically acceptable, take over the counter anti-inflammatories such as ibuprofen or Aleve if needed for post procedure discomfort., and No hot baths, hot tubs or hot compresses for 24 hours. If you have any of the following signs or symptoms, please call our office at Fever and/or chills Swelling and/or drainage from injection site New pain that is different than your normal pain (other than soreness at the site of the procedure) Stiff neck Shortness of breath Severe increase in pain Motor dysfunctions, such as difficulty walking, bowel or bladder dysfunction and/or incontinence Headache that is severe, light sensitive or develops when changing positions (positional headache) Nausea and/or vomiting accompanied by headache that started 24-48 hours after the procedure If you have any emergent concerns, please call 911 or go to your local emergency room. Please also contact our office to let us know you will be seeking emergency care and why. documented in this encounter [facility] 08-16-2024 Note HNO ID: [id number] Author: MERARI HERMAN LPN Service: ? Author Type: LICENSED NURSE Type: Progress Notes Filed: 08/16/2024 15:12 Note Text: Review of Systems Constitutional: Positive for activity change, chills and unexpected weight change. Negative for fever. Gastrointestinal: Negative for bowel retention or incontinence Genitourinary: Negative for difficulty urinating. Negative for bladder retention or incontinence Musculoskeletal: Positive for arthralgias, back pain, gait problem, myalgias, neck pain and neck stiffness. Negative for joint swelling. Neurological: Positive for weakness and numbness. Negative for headaches. Psychiatric/Behavioral: Positive for dysphoric mood and sleep disturbance. Negative for suicidal ideas. The patient is not nervous/anxious. [facility] 08-16-2024 Note HNO ID: [id number] Author: MERARI HERMAN LPN Service: ? Author Type: LICENSED NURSE Type: Progress Notes Filed: 08/16/2024 15:12 Note Text: Radio Recorder's Name: silvia Are you on a blood thinner: n If yes, is a hold required: n Last dose of blood thinner: n INR Result today: n Do you require a Lovenox bridge:n Are you a diabetic:n Are you/or could you be : n Are you taking Xanax for the procedure: n Are you currently on a steroid? n Are you currently on an antibiotic: n [facility] 07-29-2024 Note HNO ID: [id number] Author: JOB RUCKER RN Service: ? Author Type: Registered Nurse Type: Progress Notes Filed: 07/29/2024 15:59 Note Text: AMBULATORY PATIENT EDUCATION NOTE TOPIC: SURVIVAL SKILLS: Symptom Management READINESS TO LEARN COGNITIVE ABILITY: Alert and oriented MOTIVATION TO LEARN: Eager Interested FAMILY SUPPORT: High - Very involved in pt care INSTRUCTION PROVIDED TO: Patient and Caregiver PATIENT LEARNS BEST BY: Multiple Methods FACTORS AFFECTING LEARNING: None PHYSICAL LIMITATIONS AFFECTING LEARNING: Pain LEARNING RESPONSE DIAGNOSIS: C79.51 METHOD OF INSTRUCTION: Teach Back skin care Individual instruction Written instruction/Handouts Verbal instruction PATIENT / FAMILY RESPONSE: Verbalizes understanding of: SYMPTOM MANAGEMENT-Correct actions to take to manage symptoms associated with his/her disease/illness FOLLOW-UP PLAN: Patient instructed to call with any further issues Reinforce - Repeat previous content Contact information given. SUPPLEMENTAL MATERIAL: D/C sheet REFERRAL (RECOMMENDATION): None Written discharge instructions given and reviewed with patient. Patient verbalizes understanding. Encouraged to call with any questions or concerns. Instruction for 4 week phone follow up appointment given by Dr. Oakes. Electronically Signed By: Job Rucker, BRYSON In Department: RADIATION ONCOLOGY Time spent on patient education: 05 minutes. [facility] 07-29-2024 Note Education (AMPARO) ---- LUIS ANGEL AGUILA ([id number]) 1955 M Date Time Provider Department 07/29/24 SOBIA OAKES Reason for Visit: Patient Education [91] Cmt: Discharge instructions-completed radiation During your visit today, we recorded the following information about you: Allergies As of Date: 07/29/2024 Noted Allergy Reaction MORPHINE 10/25/2022 2 - Rash 9 - Itching PREDNISONE 10/25/2022 1 - Mental Status Change Date Reviewed: 07/27/2024 Reviewed by: Lilian Moreno, BRYSON - Fully Assessed Prescriptions as of 07/29/2024 - cyclobenzaprine (FLEXERIL) 10 mg tablet Take 1 tablet by mouth as directed. 1/2 to 1 tablet po qhs as needed for spasm - atenolol (TENORMIN) 50 mg tablet Take one tablet daily along with 25 mg tablet to equal 75 mg daily - atorvastatin (LIPITOR) 40 mg tablet Take 1 tablet by mouth daily at bedtime. For cholesterol. - lisinopril (ZESTRIL) 40 mg tablet Take 1 tablet by mouth once daily. - pregabalin (LYRICA) 100 mg capsule Take 1 capsule by mouth three times a day for 180 days. - albuterol HFA (VENTOLIN HFA) 90 mcg/actuation inhaler Inhale 2 Puffs as instructed every 4 hours as needed for wheezing/shortness of breath. - omeprazole (PRILOSEC) 40 mg capsule Take 1 capsule by mouth two times a day. - tiotropium-olodaterol (STIOLTO RESPIMAT) 2.5-2.5 mcg/actuation inhaler Inhale 2 Puffs as instructed once daily. - famotidine (PEPCID) 40 mg tablet Take 40 mg by mouth once daily. - acetaminophen (TYLENOL EXTRA STRENGTH) 500 mg tablet Take 1,000 mg by mouth every 8 hours as needed. - aspirin, enteric coated (ASPIRIN, ENTERIC COATED) 81 mg EC tablet Take 81 mg by mouth once daily. - docusate sodium (STOOL SOFTENER) 100 mg capsule Take 100 mg by mouth twice daily. - cholecalciferol (VITAMIN D-3) 50 mcg (2,000 unit) tablet Take 2,000 Units by mouth once daily. - beta-carotene,A,-vits C,E/mins (OCUVITE ORAL) Take 1 tablet by mouth once daily. - calcium carbonate (CALCIUM 600 ORAL) Take 1 tablet by mouth once daily. - Multivitamin capsule Take 1 capsule by mouth once daily. Encounter Status:Closed by JOB RUCKER on 07/29/24 [facility] 07-29-2024 Note HNO ID: [id number] Author: SOBIA OAKES MD Service: Radiation Oncology Author Type: Physician Type: Progress Notes Filed: 07/30/2024 10:22 Note Text: LUIS ANGEL AGUILA [id number] : 1955 07/29/2024 [facility] Department of Radiation Oncology RADIATION ONCOLOGY - COMPLETION NOTE DATE OF SIMULATION: 07/15/24 DATES OF TREATMENT: 07/20/24 - 07/29/24 UNIT: [id number]_[facility] AREA TREATED: Left hip/pelvis DISEASE: Metastatic prostate cancer with bone metastasis in the left pelvis and pain. DELIVERED DOSE: 1900 cGy in 8 fractions (900 cGy in 3 fractions followed by 1000 cGy in 5 fractions) treating to the 100% isodose line with 15 MV / and 2 arana. ELAPSED TIME: 9 days. TOLERANCE/ RESPONSE: He reports no significant changes in his left pelvic pain. He denies any nausea or diarrhea. REMARKS: He tolerated radiation treatment well. Four week follow-up with me. Staff Physician SOBIA OAKES M.D. / 0:22 AM Electronically Signed cc: Erik Cota [address] [place] [address] Monica Jung [address] [facility] [address] [facility] 07-27-2024 Note HNO ID: [id number] Author: LILIAN MORENO RN Service: ? Author Type: Registered Nurse Type: Progress Notes Filed: 07/27/2024 15:36 Note Text: Radiation Therapy - Nursing Note (OTV) PATIENT NAME: Luis Angel Aguila PATIENT July 27, 2024 [facility] FACILITY/LOCATION: [facility] NOTE TYPE: PROSTATE - MALE PELVIS Subjective Data no complaints Additional Data Do you want to see a Shield Operator? No Status: Patient is male Stress Scale: On a scale of 0 to 10, what number best describes how much distress you have experienced in the past week?(0 being no distress and 10 being extreme distress) 0 Social work notified: Pt denied need to see drug abuse social worker at this time. Nursing Assessment Fatigue: increased fatigue over baseline but not altering normal activities Appetite: fair Nutritional Intake: Regular oral intake. Weight Gain/Loss: Not applicable Ambulatory weight history: Last 6 Encounter Wt Readings: Date: Wt: 07/21/2024 81.2 kg (179 lb) 07/12/2024 78.9 kg (174 lb) 07/12/2024 78.9 kg (174 lb) 07/05/2024 79.6 kg (175 lb 8 oz) 03/18/2024 83.5 kg (184 lb) 03/01/2024 82.1 kg (181 lb) Nausea:None Vomiting: None Bowel Function: normal bowel movements Erythema/Hyperpigmentation:none Desquamation:none Rash:none Skin Care: Aquaphor Skin Sensation: Within Normal Limits Focused Assessment PROSTATE - MALE PELVIS: Rectal bleeding: No. Rectal pain: No. Bladder function: no problems. Urinary frequency (D/N): stable/stable. SIGNED by: Lilian Moreno RN [facility] 07-27-2024 History of Present illness Narrative Radiation Therapy - Nursing Note (OTV) PATIENT NAME: Luis Angel Aguila PATIENT July 27, 2024 [facility] FACILITY/LOCATION[facility] NOTE TYPE: PROSTATE - MALE PELVIS Subjective Data no complaints Additional Data Do you want to see a Shield Operator? No Status: Patient is male Stress Scale: On a scale of 0 to 10, what number best describes how much distress you have experienced in the past week?(0 being no distress and 10 being extreme distress) 0 Social work notified: Pt denied need to see drug abuse social worker at this time. Nursing Assessment Fatigue: increased fatigue over baseline but not altering normal activities Appetite: fair Nutritional Intake: Regular oral intake. Weight Gain/Loss: Not applicable Ambulatory weight history: Last 6 Encounter Wt Readings: Date: Wt: 07/21/2024 81.2 kg (179 lb) 07/12/2024 78.9 kg (174 lb) 07/12/2024 78.9 kg (174 lb) 07/05/2024 79.6 kg (175 lb 8 oz) 03/18/2024 83.5 kg (184 lb) 03/01/2024 82.1 kg (181 lb) Nausea:None Vomiting: None Bowel Function: normal bowel movements Erythema/Hyperpigmentation:none Desquamation:none Rash:none Skin Care: Aquaphor Skin Sensation: Within Normal Limits Focused Assessment PROSTATE - MALE PELVIS: Rectal bleeding: No. Rectal pain: No. Bladder function: no problems. Urinary frequency (D/N): stable/stable. SIGNED by: Lilian Moreno RN Radiation Oncology - On Treatment Review (OTR) Note PATIENT NAME: Luis Angel Aguila PATIENT DIAGNOSIS: Metastatic prostate cancer with bone metastasis in the left pelvis and pain. COURSE: palliative AREA TREATED: Lt Hip/pelvis CURRENT DOSE: 1500 cGy in 6 fx PLANNED DOSE: 1900 cGy in 8 fx SUBJECTIVE: He reports no significant changes in his left pelvic pain. He denies any nausea or diarrhea. EXAM: KPS: 90 General Appearance: Alert and oriented. No acute distress. IMAGING/LAB RESULTS: None Treatment chart checked: Yes Patient treatment site reviewed and verified:Yes CBCTs reviewed and current:Yes Medications started: None ASSESSMENT/PLAN: Clinically stable. No signs of toxicity. Continue radiation treatment as planned. Sobia Oakes MD documented in this encounter [facility] 07-27-2024 Note HNO ID: [id number] Author: SOBIA OAKES MD Service: ? Author Type: Physician Type: Progress Notes Filed: 07/27/2024 15:36 Note Text: Radiation Oncology - On Treatment Review (OTR) Note PATIENT NAME: Luis Angel Aguila PATIENT DIAGNOSIS: Metastatic prostate cancer with bone metastasis in the left pelvis and pain. COURSE: palliative AREA TREATED: Lt Hip/pelvis CURRENT DOSE: 1500 cGy in 6 fx PLANNED DOSE: 1900 cGy in 8 fx SUBJECTIVE: He reports no significant changes in his left pelvic pain. He denies any nausea or diarrhea. EXAM: KPS: 90 General Appearance: Alert and oriented. No acute distress. IMAGING/LAB RESULTS: None Treatment chart checked: Yes Patient treatment site reviewed and verified:Yes CBCTs reviewed and current:Yes Medications started: None ASSESSMENT/PLAN: Clinically stable. No signs of toxicity. Continue radiation treatment as planned. 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 He is undergoing radiation and is on lupron, but I have since clarified with his Onc team that he is not undergoing chemotherapy. 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 He is undergoing radiation and is on lupron, but I have since clarified with his Onc team that he is not undergoing chemotherapy. Ok to proceed with ILESI, will reschedule Patient was called back and spoke with Luis Angel. He was informed his appointment was cancelled as well as the follow up. Patient said his cancer is now in his bones and has 5 more radiation treatments to go. Patient was informed he will be called back after Dr. Yee gets out of procedures and able to look in his chart. Jarod Helm this is pt is scheduled today for procedure 07/26/24. kat called in last week and spoke to someone in our office about her , he was dx'd last week with hip cancer. She was wondering can he still have his injection or need to cx all together? She knows if he can have it he will need to r/s it since its cutting close to time. Jarod Helm documented in this encounter [facility] 07-26-2024 Telephone encounter Note This encounter was opened in error. [facility] 07-26-2024 Miscellaneous Notes This encounter was opened in error. documented in this encounter [facility] 07-26-2024 Telephone encounter Note Patient was called back and spoke with Luis Angel. He was informed his appointment was cancelled as well as the follow up. Patient said his cancer is now in his bones and has 5 more radiation treatments to go. Patient was informed he will be called back after Dr. Yee gets out of procedures and able to look in his chart. Jarod Helm [facility] 07-26-2024 Telephone encounter Note this is pt is scheduled today for procedure 07/26/24. kat called in last week and spoke to someone in our office about her , he was dx'd last week with hip cancer. She was wondering can he still have his injection or need to cx all together? She knows if he can have it he will need to r/s it since its cutting close to time. Jarod Helm [facility] 07-21-2024 Note HNO ID: [id number] Author: CHELSEA CAZARES LPN Service: ? Author Type: LICENSED NURSE Type: Progress Notes Filed: 07/21/2024 15:41 Note Text: Patient here for injection of Eligard. Given SQ in RLQ. Patient tolerated well. Pt to go back to radiation for radiation treatment. Pt leaves at 1539 with with no signs or symptoms of adverse reaction. Chelsea Cazares LPN [facility] 07-21-2024 History of Present illness Narrative Patient here for injection of Eligard. Given SQ in RLQ. Patient tolerated well. Pt to go back to radiation for radiation treatment. Pt leaves at 1539 with with no signs or symptoms of adverse reaction. Chelsea Cazares LPN documented in this encounter [facility] 07-20-2024 Note HNO ID: [id number] Author: LILIAN MORENO, BRYSON Service: ? Author Type: Registered Nurse Type: Progress Notes Filed: 07/20/2024 13:57 Note Text: Radiation Therapy - Nursing Note (OTV) PATIENT NAME: Luis Angel Aguila PATIENT July 20, 2024 [facility] FACILITY[facility]LOCATION[facility] NOTE TYPE: PROSTATE - MALE PELVIS Subjective Data no complaints on day one Additional Data Do you want to see a Shield Operator? No Status: Patient is male Stress Scale: On a scale of 0 to 10, what number best describes how much distress you have experienced in the past week?(0 being no distress and 10 being extreme distress) 0 Social work notified: Pt denied need to see drug abuse social worker at this time. Nursing Assessment Fatigue: none Appetite: decreased appetite for a couple of weeks Nutritional Intake: Regular oral intake. Weight Gain/Loss: Not applicable Ambulatory weight history: Last 6 Encounter Wt Readings: Date: Wt: 07/12/2024 78.9 kg (174 lb) 07/12/2024 78.9 kg (174 lb) 07/05/2024 79.6 kg (175 lb 8 oz) 03/18/2024 83.5 kg (184 lb) 03/01/2024 82.1 kg (181 lb) 12/16/2023 80.3 kg (177 lb) Nausea:None Vomiting: None Bowel Function: normally takes a stool softener Erythema/Hyperpigmentation:none Desquamation:none Rash:none Skin Care: Aquaphor Skin Sensation: Within Normal Limits Focused Assessment PROSTATE - MALE PELVIS: Rectal bleeding: No. Rectal pain: No. Bladder function: no problems. Urinary frequency (D/N): stable /stable wears a pad due to occasional leakage. SIGNED by: Lilian Moreno RN [facility] 07-20-2024 History of Present illness Narrative Radiation Therapy - Nursing Note (OTV) PATIENT NAME: Luis Angel Aguial PATIENT July 20, 2024 [facility] FACILITY[facility]LOCATION: [facility] NOTE TYPE: PROSTATE - MALE PELVIS Subjective Data no complaints on day one Additional Data Do you want to see a Shield Operator? No Status: Patient is male Stress Scale: On a scale of 0 to 10, what number best describes how much distress you have experienced in the past week?(0 being no distress and 10 being extreme distress) 0 Social work notified: Pt denied need to see drug abuse social worker at this time. Nursing Assessment Fatigue: none Appetite: decreased appetite for a couple of weeks Nutritional Intake: Regular oral intake. Weight Gain/Loss: Not applicable Ambulatory weight history: Last 6 Encounter Wt Readings: Date: Wt: 07/12/2024 78.9 kg (174 lb) 07/12/2024 78.9 kg (174 lb) 07/05/2024 79.6 kg (175 lb 8 oz) 03/18/2024 83.5 kg (184 lb) 03/01/2024 82.1 kg (181 lb) 12/16/2023 80.3 kg (177 lb) Nausea:None Vomiting: None Bowel Function: normally takes a stool softener Erythema/Hyperpigmentation:none Desquamation:none Rash:none Skin Care: Aquaphor Skin Sensation: Within Normal Limits Focused Assessment PROSTATE - MALE PELVIS: Rectal bleeding: No. Rectal pain: No. Bladder function: no problems. Urinary frequency (D/N): stable /stable wears a pad due to occasional leakage. SIGNED by: Liilan Moreno RN Radiation Oncology - On Treatment Review (OTR) Note PATIENT NAME: Luis Angel Aguila PATIENT DIAGNOSIS: Metastatic prostate cancer with bone metastasis in the left pelvis and pain. COURSE: palliative AREA TREATED: Lt Hip/pelvis CURRENT DOSE: 300 cGy in 1 fx PLANNED DOSE: 3000 cGy in 10 fx SUBJECTIVE: He had the first treatment today and he tolerated it well. EXAM: KPS: 90 General Appearance: Alert and oriented. No acute distress. IMAGING/LAB RESULTS: None Treatment chart checked: Yes Patient treatment site reviewed and verified:Yes CBCTs reviewed and current:Yes Medications started: None ASSESSMENT/PLAN: Clinically stable. No signs of toxicity. Continue radiation treatment as planned. Sobia Oakes MD documented in this encounter [facility] 07-20-2024 Note HNO ID: [id number] Author: SOBIA OAKES MD Service: ? Author Type: Physician Type: Progress Notes Filed: 07/20/2024 13:57 Note Text: Radiation Oncology - On Treatment Review (OTR) Note PATIENT NAME: Luis Angel Aguila PATIENT DIAGNOSIS: Metastatic prostate cancer with bone metastasis in the left pelvis and pain. COURSE: palliative AREA TREATED: Lt Hip/pelvis CURRENT DOSE: 300 cGy in 1 fx PLANNED DOSE: 3000 cGy in 10 fx SUBJECTIVE: He had the first treatment today and he tolerated it well. EXAM: KPS: 90 General Appearance: Alert and oriented. No acute distress. IMAGING/LAB RESULTS: None Treatment chart checked: Yes Patient treatment site reviewed and verified:Yes CBCTs reviewed and current:Yes Medications started: None ASSESSMENT/PLAN: Clinically stable. No signs of toxicity. Continue radiation treatment as planned. Sobia Oakes MD [facility] 07-15-2024 Note HNO ID: [id number] Author: ALINA BRYSON APRN.JAMES Service: ? Author Type: Nurse Practitioner Type: Progress Notes Filed: 07/15/2024 15:21 Note Text: [facility] Today's Date: 07/15/2024 Name: Luis Angel Aguila : 1955 Purpose: Follow-up Patient Evaluation - This is an established patient, returning today for continued evaluation and management of the chief complaint noted below Chief complaint: hip pain and back pain Referring Clinician: Self Pertinent Past Medical History: Hypertension (HTN), Hyperlipidemia (HLD), COPD , Gastroesophageal Reflux Disease (GERD), Ileus (11/2022), 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 node, OA multiple joints, Nicotine use disorder, Pertinent Past Surgeries: Cervical fusion, Bilat shoulder surgery Plan at last visit: (Seen on 06/17/2024 by Alina Bryson CNP) IMPRESSION: 69 year old male presents with complaint(s) of Low back pain with radicular symptoms. Patient's pain does not appear to be as severe as prior last interlaminar epidural steroid injection however it does appear to be starting to return. I will schedule the patient for a repeat interlaminar epidural steroid injection as he did receive excellent relief from this procedure in the past. Diagnoses: (M48.062) Spinal stenosis of lumbar region with neurogenic claudication (primary encounter diagnosis) (M54.16) Lumbar radiculopathy (M70.62) Trochanteric bursitis of left hip PLAN: Luis Angel Aguila would benefit from the following to reach personal goals for decreasing pain, improving function and work participation, and/or improving quality of life: Medications: Requested Prescriptions No prescriptions requested or ordered in this encounter Continue lyrica will increase to tid , 1 in am and 2 at bedtime. Interventional Procedures: Epidural Steroid Injection - Interlaminar Approach (ILESI) under fluoroscopic guidance NONE at L5-S1 Radio Recorder Needed: Epidural - YES Anticoagulant - Hold Needed: Lumbar Epidural (HOLD) Anticoagulant - Currently Taking: None Allergies (relevant): None Scheduling - Mobility (Can Patient independently transfer on/off an OR or Procedure table?): YES (May schedule at any location) Scheduling - Additional Info: None Studies: X-ray: Hip (Left) reviewed Functional Taoism: Continue home exercises from Chiropractics Referrals: No additional considerations at present Follow-up:2 months Depending on response to the above plan, consider: Right GT bursa injection and/or TPI Interval History: Overall pain and functional disability since last visit: Unchanged New Complaints since last visit: No Pain Description: Timing: Constant Character: Sharp Primary Location: left hip Radiation: left groin Exacerbating factors: getting up from sitting Relieving factors: sitting Interferes with: physical activity The patient reports leg weakness Patient is here today reporting that he has been newly diagnosed with cancer in his hips worse on the left side. Patient stating that he is scheduled to start radiation and chemotherapy. Patient stating he has been told that this will help with the pain in his hip. Patient is coming continuing the Lupron injections. Patient stating that the oncologist says we cannot do hip injections however it is okay to proceed with the back injection which is currently scheduled. Current Pain Medications: Neuropathics: lyrica NSAIDS: Muscle Relaxants: Topicals: Other Prescription or OTC Pain Medications: tylenol Opioids (when applicable): Anti-depressants or Mood-Stabilizers: None Anti-Coagulants: None Therapies Attended (Current or Most Recent): No Current Therapies 05/01/2023 03/11/2024 05/20/2024 AG SPINE COMBINATION Questionnaire GREENLIGHT Completed Date 05/01/2023 Completed Date 05/20/2024 Comments TERRANCE--Pregabalin Questionnaire Opiod Risk Tool Opiod Risk Tool Completed Date 05/01/2023 03/11/2024 Comments Low Risk 0 - Low Risk No question data found. 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 [facility] 07-15-2024 History of Present illness Narrative Images from the original note were not included. [facility] Today's Date: 07/15/2024 Name: Luis Angel Aguila : 1955 Purpose: Follow-up Patient Evaluation - This is an established patient, returning today for continued evaluation and management of the chief complaint noted below Chief complaint: hip pain and back pain Referring Clinician: Self Pertinent Past Medical History: Hypertension (HTN), Hyperlipidemia (HLD), COPD , Gastroesophageal Reflux Disease (GERD), Ileus (11/2022), 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 node, OA multiple joints, Nicotine use disorder, Pertinent Past Surgeries: Cervical fusion, Bilat shoulder surgery Plan at last visit: (Seen on 06/17/2024 by Alina Bryson CNP) IMPRESSION: 69 year old male presents with complaint(s) of Low back pain with radicular symptoms. Patient's pain does not appear to be as severe as prior last interlaminar epidural steroid injection however it does appear to be starting to return. I will schedule the patient for a repeat interlaminar epidural steroid injection as he did receive excellent relief from this procedure in the past. Diagnoses: (M48.062) Spinal stenosis of lumbar region with neurogenic claudication (primary encounter diagnosis) (M54.16) Lumbar radiculopathy (M70.62) Trochanteric bursitis of left hip PLAN: Luis Angel Aguila would benefit from the following to reach personal goals for decreasing pain, improving function and work participation, and/or improving quality of life: Medications: Requested Prescriptions No prescriptions requested or ordered in this encounter Continue lyrica will increase to tid , 1 in am and 2 at bedtime. Interventional Procedures: Epidural Steroid Injection - Interlaminar Approach (ILESI) under fluoroscopic guidance NONE at L5-S1 Radio Recorder Needed: Epidural - YES Anticoagulant - Hold Needed: Lumbar Epidural (HOLD) Anticoagulant - Currently Taking: None Allergies (relevant): None Scheduling - Mobility (Can Patient independently transfer on/off an OR or Procedure table?): YES (May schedule at any location) Scheduling - Additional Info: None Studies: X-ray: Hip (Left) reviewed Functional Taoism: Continue home exercises from Chiropractics Referrals: No additional considerations at present Follow-up:2 months Depending on response to the above plan, consider: Right GT bursa injection and/or TPI In terval History: Overall pain and functional disability since last visit: Unchanged New Complaints since last visit: No Pain Description: Timing: Constant Character: Sharp Primary Location: left hip Radiation: left groin Exacerbating factors: getting up from sitting Relieving factors: sitting Interferes with: physical activity The patient reports leg weakness Patient is here today reporting that he has been newly diagnosed with cancer in his hips worse on the left side. Patient stating that he is scheduled to start radiation and chemotherapy. Patient stating he has been told that this will help with the pain in his hip. Patient is coming continuing the Lupron injections. Patient stating that the oncologist says we cannot do hip injections however it is okay to proceed with the back injection which is currently scheduled. Current Pain Medications: Neuropathics: lyrica NSAIDS: Muscle Relaxants: Topicals: Other Prescription or OTC Pain Medications: tylenol Opioids (when applicable): Anti-depressants or Mood-Stabilizers: None Anti-Coagulants: None Therapies Attended (Current or Most Recent): No Current Therapies 05/01/2023 03/11/2024 05/20/2024 AG SPINE COMBINATION Questionnaire GREENLIGHT Completed Date 05/01/2023 Completed Date 05/20/2024 Comments TERRANCE--Pregabalin Questionnaire Opiod Risk Tool Opiod Risk Tool Completed Date 05/01/2023 03/11/2024 Comments Low Risk 0 - Low Risk No question data found. 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 (All drug screens are appropriate unless indicated otherwise) No table Events During Course of Treatment: History of Present Illness (HPI): 04/29/2023 - Initial HPI (Obtained by Hector Ritchie M.D.). DURATION AND ONSET: The pain complaint has been present for approximately many years. The pain had a gradual onset. The mechanism of injury is unknown. He reports he has had years of low back pain, but that the past 4-5 years, he has had worsening pain. He reports that he was told that radiation may have damaged the lumbar discs. He was 6'2 at one point, now is 5'9. He had radiation therapy for Prostate cancer in 2021, cancer returned, now using Lupron injections. RED FLAG SYMPTOMS: difficulty with bowel or bladder control. Treatment History: PAIN PROCEDURES: DATE PROCEDURE IMPROVEMENT 05/31/2024 L GTB CSI 85% 04/26/2024 ILESI L5-S1 100% 07/16/2023 B/L RFA L4-S1 55% MEDICATIONS Taken TO DATE (for the chief complaint(s)): Neuropathics: Neurontin (Gabapentin) NSAIDS: Mobic (Meloxicam) Muscle Relaxants: None Topicals: None Other Prescription or OTC Pain Medications: Aspirin Opioids: None Data Reviewed Today: Allergies: ALLERGIES Allergen Reactions Morphine Rash, Itching Prednisone Mental Status Change Social History Tobacco Use Smoking status: Every Day Current packs/day: 1.00 Average packs/day: 1 pack/day for 55.0 years (55.0 ttl pk-yrs) Types: Cigarettes Smokeless tobacco: Never Tobacco comments: Pt has cut back to 1/2 pack daily. Vaping Use Vaping status: Never Used Substance Use Topics Alcohol use: Yes Comment: occasionaly Drug use: Never 07/12/2024 07/14/2024 INTAKE PAIN ASSESSMENT Are you having pain associated with your visit today? 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 No suspicious activity was identified. Tramadol 50mg, #12 (11/14/2022) 05/01/2023 03/11/2024 05/20/2024 AG SPINE COMBINATION Questionnaire GREENLIGHT Completed Date 05/01/2023 Completed Date 05/20/2024 Comments TERRANCE--Pregabalin Questionnaire Opiod Risk Tool Opiod Risk Tool Completed Date 05/01/2023 03/11/2024 Comments Low Risk 0 - Low Risk (All drug screens are appropriate unless indicated otherwise) Risk Assessment: LAST-7: 05/01/2023 LAST - 7 SCORES Score 0 (0-4) minimal anxiety, (5-9) mild anxiety, (10-14) moderate anxiety, (15-21) severe anxiety PHQ-9: 05/01/2023 PHQ-9 Score 1 (0-4) minimal depression, (5-9) mild depression, (10-14) moderate depression, (15-19) moderately severe depression, (20-27) severe depression Opioid Risk Tool: Family History of Substance Abuse: Yes Alcohol: 1 -Female Personal History of Substance Abuse: 0 - No Age between 16-45: 0 - No History of Pre-Adolescence Sexual Abuse: 0 - No Psychological Disease: 0 - No Risk Total: 1 Total Score Risk Category: Low Risk 0-3 (0-3, low risk or no risk; 4-7, moderate risk, 8+, high risk) Diagnostic Studies: Relevant Imagin05/15/2024 1:26 PM - Radiology, [place] In Impression IMPRESSION: Unremarkable appearance of the left hip with no acute fracture or dislocation seen Header Operator: PSCB Transcribe Date/Time: May 15 2024 1:24P Dictated by : FERNANDO RIVAS MD This examination was interpreted and the report reviewed and electronically signed by: FERNANDO RIVAS MD on May 15 2024 1:24PM EST Results-Findings * * *Final Report* * * DATE OF EXAM: May 13 2024 10:03AM WRX [id number] - XR HIP 3V PELV+ AP/LAT LT / PROCEDURE REASON: Pain in left hip * * * * Physician Interpretation * * * * XR HIP 3V PELV+ AP/LAT LT 05/13/2024 10:03 AM HISTORY: Pain in left hip TECHNIQUE: 2 view(s) of the left hip and AP view of the pelvis COMPARISON: No prior similar exams are available for comparison RESULT: Bone mineralization/ degenerative changes: Bone density grossly within normal limits. Severe degenerative change in the lower lumbar spine. Alignment of the osseous structures: The alignment appears anatomical without a subluxation or dislocation seen. Fractures: No acute fractures are seen. Soft tissues: No radiopaque foreign bodies are seen. Vascular calcifications are present. MRI Spine Report MRI LUMBAR SPINE WO IVCON Exam End: 05/27/2023 9:29 AM (Final result) Narrative: * * *Final Report* * * DATE OF EXAM: May 27 2023 9:00AM [facility] [id number] - MRI LUMBAR SPINE WO IVCON / PROCEDURE REASON: multiple diagnoses * * * * Physician Interpretation * * * * EXAMINATION: MRI LUMBAR SPINE WO IVCON CLINICAL HISTORY: Chronic bilateral low back pain, unspecified whether sciatica present. Failed NSAIDS for three months. TECHNIQUE: Routine lumbosacral spine MR protocol without gadolinium. MQ: [id number] COMPARISON: None. RESULT: Counting reference: Lumbosacral junction. For the purposes of this report, L4-5 is considered the level of the iliac crest and assume there are 5 lumbar-type vertebrae. Anatomic variant: None. Localizer images: T2 hyperintense presumed renal cysts. Alignment: Levoscoliosis, apex L3-L4. Bone marrow signal/fracture: No evidence of pathologic marrow infiltration. No evidence of prior fracture. Multilevel scattered predominantly type I endplate marrow degenerative signal changes most notably at L1-L2, L4-L5 and L5-S1. Conus: The conus is within normal limits of signal intensity and morphology. Paraspinal soft tissues: Paraspinal soft tissues are within normal limits. Lower thoracic spine: Visualized lower thoracic canal and foramina are patent. L1-L2: Mild spinal canal stenosis secondary disc osteophyte complex. Minimal degenerative facet arthrosis. Mild left and no significant right foraminal stenosis. L2-L3: Mild spinal canal stenosis secondary to right eccentric disc osteophyte complex. Mild to moderate right subarticular recess effacement. Mild degenerative facet arthrosis. Moderate left and mild right foraminal stenosis. L3-L4: Mild spinal canal stenosis secondary disc bulging and dorsal osteophytic endplate spurring. Right subarticular superimposed extrusion with caudal extension effacing the right subarticular zone and contacting/minimally impinging upon the traversing right L4 nerve root. Moderate degenerative facet arthrosis. Moderate right and mild left foraminal stenosis. L4-L5: Mild spinal canal stenosis secondary disc bulging and dorsal osteophytic endplate spurring. Moderate degenerative facet arthrosis. Mild left subarticular recess effacement. Moderate right and mild left foraminal stenosis. L5-S1: Mild spinal canal stenosis secondary disc bulging and dorsal osteophytic endplate spurring. Moderate degenerative facet arthrosis. Severe bilateral foraminal stenosis. Sacrum and iliac wings: Edema in both sacral ala which may be reflective of acute subacute sacral insufficiency fractures. Impression: IMPRESSION: Lumbar spondylosis and scoliosis with multiple levels of mild spinal canal stenosis. Moderate right subarticular recess effacement at L3-L4 secondary to small caudally directed extrusion. No high-grade spinal canal stenosis. Up to severe bilateral foraminal stenosis at L5-S1. Left greater than right sacral edema, suspicious of bilateral acute to subacute sacral insufficiency fractures. Anatomic Lumbar Variant: None. L4-5 is considered the level of the iliac crest and assume there are 5 lumbar-type vertebrae. Header Operator: PSCB Transcribe Date/Time: May 27 2023 9:49A Dictated by : SALAZAR HOFFMAN DO This examination was interpreted and the report reviewed and electronically signed by: SALAZAR HOFFMAN DO on May 27 2023 9:56AM EST X-ray Bilat. Hip / Lumbar 03/2023 RESULT: 5 nonrib-bearing lumbar-type vertebrae. For numbering purposes, L4-5 is at the level of the iliac crest. Severe disc space narrowing and multilevel vacuum phenomenon from L1 through S1. No acute fracture or focal bony abnormality. Degenerative change involving the posterior elements from L4 through S1. Levoscoliosis of 22 degrees as measured from inferior L1 to superior L4. AP pelvis and 2 coned-down views of each hip show mild degenerative change. No significant joint space narrowing. No fracture or focal bony abnormality. Normal mineralization and alignment. SI joints are Unremarkable IMPRESSION: DEGENERATIVE CHANGE AND ALIGNMENT ABNORMALITIES WITHIN THE LUMBAR SPINE DESCRIBED. MILD DEGENERATIVE CHANGE INVOLVING BOTH HIPS. Electrodiagnostic Study (EMG): None Recent Labs: Creatinine Date Value Ref Range Status 06/06/2023 0.84 0.73 - 1.22 mg/dL Final No results found for: EGFR No results found for: PCGLUCOSE Current Medications, Past Medical History, Past Surgical History, Family History, Social History and Review of Systems: On today's date, noted above, I have confirmed and edited as necessary, the PFSH and ROS obtained by others. Physical Exam Vitals reviewed. Constitutional: General: He is not in acute distress. Appearance: He is not ill-appearing. HENT: Head: Normocephalic and atraumatic. Eyes: Conjunctiva/sclera: Conjunctivae normal. Cardiovascular: Pulses: Normal pulses. Pulmonary: Effort: Pulmonary effort is normal. No respiratory distress. Musculoskeletal: Thoracic back: No tenderness or bony tenderness. No scoliosis. Lumbar back: No spasms or tenderness. Decreased range of motion. Positive left straight leg raise test. Negative right straight leg raise test. No scoliosis. Right hip: Tenderness (pain elicited with light palpation to right GT region) present. Decreased range of motion. Left hip: Tenderness and bony tenderness present. Decreased range of motion. Comments: Hip Flexion: Right- 5/5; Left- 5/5 Knee Extension: Right- 5/5; Left- 5/5 Dorsiflexion: Right- 5/5; Left- 5/5 Plantarflexion: Right- 5/5; Left- 5/5 Special Tests- Facet Loading: Right-Positive ; Left Positive SI Compression:Negative ISAAC:Right-Positive; Left Positive Skin: General: Skin is warm and dry. Neurological: Mental Status: He is alert and oriented to person, place, and time. Gait: Gait and tandem walk normal. Deep Tendon Reflexes: Reflexes are normal and symmetric. Reflex Scores: Patellar reflexes are 2+ on the right side and 2+ on the left side. Psychiatric: Mood and Affect: Mood and affect normal. Behavior: Behavior normal. Behavior is cooperative. IMPRESSION: 69 year old male presents with complaint(s) of Low back pain with radicular symptoms. Patient has recently been diagnosed with left hip cancer and the treatment plan is in place per the oncologist. Will refrain from any hip injections the oncologist is in agreement with this plan. Patient is currently scheduled for an interlaminar epidural steroid injection which is okay with the oncologist to proceed with. Will follow-up after the injection to evaluate the relief. Diagnoses: (M48.062) Spinal stenosis of lumbar region with neurogenic claudication (primary encounter diagnosis) (M54.16) Lumbar radiculopathy (M47.816) Lumbar spondylosis (M25.552) Pain in left hip PLAN: Luis Angel Aguila would benefit from the following to reach personal goals for decreasing pain, improving function and work participation, and/or improving quality of life: Medications: Requested Prescriptions No prescriptions requested or ordered in this encounter Continue lyrica will increase to tid , 1 in am and 2 at bedtime. Interventional Procedures: Previously scheduled Epidural Steroid Injection - Interlaminar Approach (ILESI) under fluoroscopic guidance NONE at L5-S1 Radio Recorder Needed: Epidural - YES Anticoagulant - Hold Needed: Lumbar Epidural (HOLD) Anticoagulant - Currently Taking: None Allergies (relevant): None Scheduling - Mobility (Can Patient independently transfer on/off an OR or Procedure table?): YES (May schedule at any location) Scheduling - Additional Info: None Studies: X-ray: Hip (Left) reviewed Functional Taoism: Continue home exercises from Chiropractics Referrals: No additional considerations at present Follow-up:1 month after injection (currently scheduled). Depending on response to the above plan, consider: Right GT bursa injection and/or TPI Attribution: In addition to reviewing the information noted above, some elements copied from my most recent clinical note(s), including the physical exam (completed in entirety today), and the impression and plan sections, have been updated where appropriate. All reflect current medical decision making from today's date. Alina Bryson APRN.[facility] [place] [facility] Review of Systems Constitutional: Positive for activity change and unexpected weight change. Negative for chills and fever. Genitourinary: Negative for difficulty urinating. Musculoskeletal: Positive for arthralgias, back pain, gait problem, myalgias, neck pain and neck stiffness. Negative for joint swelling. Neurological: Negative for weakness, numbness and headaches. Psychiatric/Behavioral: Positive for sleep disturbance. Negative for dysphoric mood and suicidal ideas. The patient is not nervous/anxious. documented in this encounter [facility] 07-15-2024 Note HNO ID: [id number] Author: LIZABETH ARAIZA LPN Service: ? Author Type: LICENSED NURSE Type: Progress Notes Filed: 07/15/2024 15:21 Note Text: Review of Systems Constitutional: Positive for activity change and unexpected weight change. Negative for chills and fever. Genitourinary: Negative for difficulty urinating. Musculoskeletal: Positive for arthralgias, back pain, gait problem, myalgias, neck pain and neck stiffness. Negative for joint swelling. Neurological: Negative for weakness, numbness and headaches. Psychiatric/Behavioral: Positive for sleep disturbance. Negative for dysphoric mood and suicidal ideas. The patient is not nervous/anxious. [facility] 07-15-2024 Note HNO ID: [id number] Author: JOB RUCKER RN Service: ? Author Type: Registered Nurse Type: Progress Notes Filed: 07/15/2024 11:05 Note Text: Radiation Therapy - Patient Education Note PATIENT NAME: Luis Angel Aguila PATIENT July 15, 2024 [facility] FACILITY/LOCATION: [place] READINESS TO LEARN Cognitive Ability: Alert and oriented Motivation to learn: Eager Interested Family Support: High - Very involved in pt care Instruction provide to: Patient and Family member Patient learns best by: Multiple Methods Factors effecting learning: None Physical limitations effecting learning: None LEARNING RESPONSE Diagnosis: Pt simulated today for radiation therapy to multiple sites: left hip/pelvis. Education Topic/Teaching Points: Radiation therapy, Side effects, and OTV: Method of instruction: Teach Back skin care Individual instruction Written instruction/Handouts Verbal instruction Patient /Family response: Patient and family verbalized understanding of radiation treatments, side effects, OTV, and transportation. Follow-up plan: Patient instructed to call with any further issues Contact information given. Supplemental material: Informational handouts on Department phone list, Diarrhea, Fatigue, and [place] instructions, XRT sheet and Aquaphor handout. Referral (recommendation): None, Pt denied need for social work, van service, and ply cutter. Patient has an Onbody or Implanted device: No Signed by: Job Rucker RN [facility] 07-15-2024 History of Present illness Narrative LUIS ANGEL AGUILA [id number] 07/15/2024 [facility] [place] [facility] - Department of Radiation Oncology Treatment Planning Note For reasons stated in the consult note, Luis Angel Aguila is a candidate for radiation therapy. Based on review and interpretation of the relevant diagnostic studies together with the exam findings, Luis Angel Aguila was simulated on 07/15/2024 at which time the target volume and/or requisite arana were delineated, as indicated in the simulation note, to be treated according to the prescription. After reviewing the treatment plan with dosimetry Using the fused PET, the plan was approved to deliver the prescribed course of radiation to the target area to allow for the best isodose distribution, treating to the 100% isodose line with 15 MV / and 2 arana. Custom MLC wedges asym jaws were the treatment device(s) used to shape/modify the beams. Special consideration to these and other structures was given in light of the potential for increased toxicities of re- treatment of a previously irradiated site. A completed summary of this plan dated 07/16/2024 incorporated herein by reference includes dose, beam arrangements, energy, blocking, isodose distribution, and/or ports and DVH. Electronically Signed Sobia Oakes M.D. :12 AM documented in this encounter [facility] 07-15-2024 History of Present illness Narrative LUIS ANGEL AGUILA [id number] 07/15/2024 [facility] Department of Radiation Oncology [facility] RADIATION ONCOLOGY SIMULATION NOTE DATE OF SIMULATION: 07/15/2024 MACHINE: [employer] Definition CT Simulator Diagnosis: Metastatic prostate cancer with bone metastasis in the left pelvis and pain. AREA:Lt Hip/pelvis PATIENT POSITION: Supine. CONTRAST: None PROTOCOL: None BLOCKING: Custom blocking to be determined at treatment planning. FIXATION DEVICE: In order to achieve accurate and reproducible treatments, the patient is to be immobilized with a vac bag. PROCEDURE: A time-out was conducted and recorded by the therapist. Patient was simulated on the CT scanner for external beam radiation therapy. Treatment site was marked by the simulation therapist. ASSESSMENT/PLAN: Patient tolerated simulation procedure well. Treatments will be initiated after treatment planning. The patient is scheduled for a verification simulation on the treatment machine to ensure proper set-up and field arrangement is correct prior to the first treatment of primary and boost arana if applicable. Electronically Signed Sobia Oakes M.D./fritz :11 AM documented in this encounter [facility] 07-15-2024 Note HNO ID: [id number] Author: SOBIA OAKES MD Service: Radiation Oncology Author Type: Physician Type: Progress Notes Filed: 07/16/2024 09:12 Note Text: LUIS ANGEL AGUILA [id number] 07/15/2024 [facility] - Department of Radiation Oncology Treatment Planning Note For reasons stated in the consult note, Luis Angel Aguila is a candidate for radiation therapy. Based on review and interpretation of the relevant diagnostic studies together with the exam findings, Luis Angel Aguila was simulated on 07/15/2024 at which time the target volume and/or requisite arana were delineated, as indicated in the simulation note, to be treated according to the prescription. After reviewing the treatment plan with dosimetry Using the fused PET, the plan was approved to deliver the prescribed course of radiation to the target area to allow for the best isodose distribution, treating to the 100% isodose line with 15 MV / and 2 arana. Custom MLC wedges asym jaws were the treatment device(s) used to shape/modify the beams. Special consideration to these and other structures was given in light of the potential for increased toxicities of re- treatment of a previously irradiated site. A completed summary of this plan dated 07/16/2024 incorporated herein by reference includes dose, beam arrangements, energy, blocking, isodose distribution, and/or ports and DVH. Electronically Signed Sobia Oakes M.D. 59:12 AM [facility] 07-15-2024 Note HNO ID: [id number] Author: SOBIA OAKES MD Service: Radiation Oncology Author Type: Physician Type: Progress Notes Filed: 07/16/2024 09:11 Note Text: LUIS ANGEL AGUILA [id number] 07/15/2024 [facility] Department of Radiation Oncology [facility] RADIATION ONCOLOGY SIMULATION NOTE DATE OF SIMULATION: 07/15/2024 MACHINE: [employer] Definition CT Simulator Diagnosis: Metastatic prostate cancer with bone metastasis in the left pelvis and pain. AREA:Lt Hip/pelvis PATIENT POSITION: Supine. CONTRAST: None PROTOCOL: None BLOCKING: Custom blocking to be determined at treatment planning. FIXATION DEVICE: In order to achieve accurate and reproducible treatments, the patient is to be immobilized with a vac bag. PROCEDURE: A time-out was conducted and recorded by the therapist. Patient was simulated on the CT scanner for external beam radiation therapy. Treatment site was marked by the simulation therapist. ASSESSMENT/PLAN: Patient tolerated simulation procedure well. Treatments will be initiated after treatment planning. The patient is scheduled for a verification simulation on the treatment machine to ensure proper set-up and field arrangement is correct prior to the first treatment of primary and boost arana if applicable. Electronically Signed Sobia Oakes M.D./fritz 59:11 AM [facility] 07-12-2024 Telephone encounter Note I spoke with radiation therapist and pt has not been scheduled for simulation yet. I called pt's spouse to discuss and they have not decided if he is going to proceed with radiation yet. I explained that we only have 1 machine and schedule every 15 minutes. Currently 3:30 is not available and potentially 3:15 as well. They are aware that the simulation will be late morning or early afternoon. He is talking to his boss to see what arrangement can be made. They have not decided if he is going to proceed yet or not. They will discuss further and call back possibly 07/13. [facility] 07-12-2024 Miscellaneous Notes I spoke with radiation therapist and pt has not been scheduled for simulation yet. I called pt's spouse to discuss and they have not decided if he is going to proceed with radiation yet. I explained that we only have 1 machine and schedule every 15 minutes. Currently 3:30 is not available and potentially 3:15 as well. They are aware that the simulation will be late morning or early afternoon. He is talking to his boss to see what arrangement can be made. They have not decided if he is going to proceed yet or not. They will discuss further and call back possibly 07/13. documented in this encounter [facility] 07-12-2024 Note HNO ID: [id number] Author: SOBIA OAKES MD Service: ? Author Type: Physician Type: Progress Notes Filed: 07/14/2024 11:07 Note Text: Radiation Oncology - New Patient/Consult Note PATIENT NAME: Luis Angel Aguila PATIENT REQUESTING PROVIDER: Dr. Monica Jung DIAGNOSIS: Metastatic prostate cancer with bone metastasis in the left pelvis and pain. HPI: 69 year old male who presents with above diagnosis, for an opinion regarding the role of radiation therapy in the management of the patient's disease. Final recommendations will be communicated back to the requesting physician by way of the shared medical record, or letter to requesting physician via US mail. 69 year old man who was initially diagnosed with pT3 pN1 prostate cancer in 2021 treated with radical prostatectomy. He had pretreatment PSA 54 and [place] score 7 (3+4) disease with positive margins. PSMA PET scan on 06/11/21 showed multiple positive pelvic nodes. He was started on ADT and he underwent radiation treatment to the pelvis at the [facility] in [facility] under the care of Dr. Charlie Ingram. 70Gy was planned but he had severe diarrhea and nausea and it was stopped at 44Gy. He moved to [place] and saw Dr. Jung and continues ADT treatment. He has worsening pain in the left hip area aggravated with weight bearing. Steroid injection in the hip alleviated his pain only partially. PSMA PET scan on 07/07/24 showed avid uptake in the left bony pelvis likely osseous metastasis. PSA on 07/05/24 was 0.62 and it increased from 0.32 on 03/15/24 and 0.06 on 12/12/23. ALLERGIES Allergen Reactions Morphine Rash, Itching Prednisone Mental Status Change Current Outpatient Medications on File Prior to Visit Medication Sig cyclobenzaprine (FLEXERIL) 10 mg tablet Take 1 tablet by mouth as directed. 1/2 to 1 tablet po qhs as needed for spasm atenolol (TENORMIN) 50 mg tablet Take one tablet daily along with 25 mg tablet to equal 75 mg daily atorvastatin (LIPITOR) 40 mg tablet Take 1 tablet by mouth daily at bedtime. For cholesterol. lisinopril (ZESTRIL) 40 mg tablet Take 1 tablet by mouth once daily. pregabalin (LYRICA) 100 mg capsule Take 1 capsule by mouth three times a day for 180 days. albuterol HFA (VENTOLIN HFA) 90 mcg/actuation inhaler Inhale 2 Puffs as instructed every 4 hours as needed for wheezing/shortness of breath. omeprazole (PRILOSEC) 40 mg capsule Take 1 capsule by mouth two times a day. tiotropium-olodaterol (STIOLTO RESPIMAT) 2.5-2.5 mcg/actuation inhaler Inhale 2 Puffs as instructed once daily. famotidine (PEPCID) 40 mg tablet Take 40 mg by mouth once daily. acetaminophen (TYLENOL EXTRA STRENGTH) 500 mg tablet Take 1,000 mg by mouth every 8 hours as needed. aspirin, enteric coated (ASPIRIN, ENTERIC COATED) 81 mg EC tablet Take 81 mg by mouth once daily. docusate sodium (STOOL SOFTENER) 100 mg capsule Take 100 mg by mouth twice daily. cholecalciferol (VITAMIN D-3) 50 mcg (2,000 unit) tablet Take 2,000 Units by mouth once daily. beta-carotene,A,-vits C,E/mins (OCUVITE ORAL) Take 1 tablet by mouth once daily. calcium carbonate (CALCIUM 600 ORAL) Take 1 tablet by mouth once daily. Multivitamin capsule Take 1 capsule by mouth once daily. No current facility-administered medications on file prior to visit. 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) S/P prostatectomy Tobacco use disorder Prior radiation therapy, collagen vascular disease, or inflammatory bowel disease: Yes, previous radiation treatment to the pelvis as above. Any implanted or external electric devices? No PAST SURGICAL HISTORY Procedure Laterality Date ABDOMINAL SURGERY HX APPENDECTOMY COLONOSCOPY 12/12/2022 repeat 5 years FOOT RIGHT OP SURGERY Right FRACTURE SURGERY REMOVAL OF PROSTATE REPAIR ABDOMINAL HERNIA SHOULDER SURGERY HX Bilateral XR CERVICAL FUSION OR FAMILY HISTORY Problem Relation Age of Onset Lung Cancer Mother Dementia Father other (ETOH) Father Hypertension Brother Aneurysm Maternal Grandmother other (car accident) Maternal Grandfather other (car accident) Paternal Grandfather Social History Tobacco Use Smoking status: Every Day Current packs/day: 1.00 Average packs/day: 1 pack/day for 55.0 years (55.0 ttl pk-yrs) Types: Cigarettes Smokeless tobacco: Never Tobacco comments: Pt has cut back to 1/2 pack daily. Vaping Use Vaping status: Never Used Substance Use Topics Alcohol use: Yes Comment: occasionaly Drug use: Never COMPLETE REVIEW OF SYSTEMS: GENERAL: feeling well without fatigue, no recent change in weight HEENT: denies CORTEZ, change in hearing or vision, no other ENT complaints NECK: denies swell (more content not included)... [facility] 07-12-2024 History of Present illness Narrative Radiation Oncology - New Patient/Consult Note PATIENT NAME: Luis Angel Aguila PATIENT REQUESTING PROVIDER: Dr. Monica Jung DIAGNOSIS: Metastatic prostate cancer with bone metastasis in the left pelvis and pain. HPI: 69 year old male who presents with above diagnosis, for an opinion regarding the role of radiation therapy in the management of the patient's disease. Final recommendations will be communicated back to the requesting physician by way of the shared medical record, or letter to requesting physician via US mail. 69 year old man who was initially diagnosed with pT3 pN1 prostate cancer in 2021 treated with radical prostatectomy. He had pretreatment PSA 54 and Gia score 7 (3+4) disease with positive margins. PSMA PET scan on 06/11/21 showed multiple positive pelvic nodes. He was started on ADT and he underwent radiation treatment to the pelvis at the [facility] in [facility] under the care of Dr. Charlie Ingram. 70Gy was planned but he had severe diarrhea and nausea and it was stopped at 44Gy. He moved to [place] and saw Dr. Jung and continues ADT treatment. He has worsening pain in the left hip area aggravated with weight bearing. Steroid injection in the hip alleviated his pain only partially. PSMA PET scan on 07/07/24 showed avid uptake in the left bony pelvis likely osseous metastasis. PSA on 07/05/24 was 0.62 and it increased from 0.32 on 03/15/24 and 0.06 on 12/12/23. ALLERGIES Allergen Reactions Morphine Rash, Itching Prednisone Mental Status Change Current Outpatient Medications on File Prior to Visit Medication Sig cyclobenzaprine (FLEXERIL) 10 mg tablet Take 1 tablet by mouth as directed. 1/2 to 1 tablet po qhs as needed for spasm atenolol (TENORMIN) 50 mg tablet Take one tablet daily along with 25 mg tablet to equal 75 mg daily atorvastatin (LIPITOR) 40 mg tablet Take 1 tablet by mouth daily at bedtime. For cholesterol. lisinopril (ZESTRIL) 40 mg tablet Take 1 tablet by mouth once daily. pregabalin (LYRICA) 100 mg capsule Take 1 capsule by mouth three times a day for 180 days. albuterol HFA (VENTOLIN HFA) 90 mcg/actuation inhaler Inhale 2 Puffs as instructed every 4 hours as needed for wheezing/shortness of breath. omeprazole (PRILOSEC) 40 mg capsule Take 1 capsule by mouth two times a day. tiotropium-olodaterol (STIOLTO RESPIMAT) 2.5-2.5 mcg/actuation inhaler Inhale 2 Puffs as instructed once daily. famotidine (PEPCID) 40 mg tablet Take 40 mg by mouth once daily. acetaminophen (TYLENOL EXTRA STRENGTH) 500 mg tablet Take 1,000 mg by mouth every 8 hours as needed. aspirin, enteric coated (ASPIRIN, ENTERIC COATED) 81 mg EC tablet Take 81 mg by mouth once daily. docusate sodium (STOOL SOFTENER) 100 mg capsule Take 100 mg by mouth twice daily. cholecalciferol (VITAMIN D-3) 50 mcg (2,000 unit) tablet Take 2,000 Units by mouth once daily. beta-carotene,A,-vits C,E/mins (OCUVITE ORAL) Take 1 tablet by mouth once daily. calcium carbonate (CALCIUM 600 ORAL) Take 1 tablet by mouth once daily. Multivitamin capsule Take 1 capsule by mouth once daily. No current facility-administered medications on file prior to visit. 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) S/P prostatectomy Tobacco use disorder Prior radiation therapy, collagen vascular disease, or inflammatory bowel disease: Yes, previous radiation treatment to the pelvis as above. Any implanted or external electric devices? No PAST SURGICAL HISTORY Procedure Laterality Date ABDOMINAL SURGERY HX APPENDECTOMY COLONOSCOPY 12/12/2022 repeat 5 years FOOT RIGHT OP SURGERY Right FRACTURE SURGERY REMOVAL OF PROSTATE REPAIR ABDOMINAL HERNIA SHOULDER SURGERY HX Bilateral XR CERVICAL FUSION OR FAMILY HISTORY Problem Relation Age of Onset Lung Cancer Mother Dementia Father other (ETOH) Father Hypertension Brother Aneurysm Maternal Grandmother other (car accident) Maternal Grandfather other (car accident) Paternal Grandfather Social History Tobacco Use Smoking status: Every Day Current packs/day: 1.00 Average packs/day: 1 pack/day for 55.0 years (55.0 ttl pk-yrs) Types: Cigarettes Smokeless tobacco: Never Tobacco comments: Pt has cut back to 1/2 pack daily. Vaping Use Vaping status: Never Used Substance Use Topics Alcohol use: Yes Comment: occasionaly Drug use: Never COMPLETE REVIEW OF SYSTEMS: GENERAL: feeling well without fatigue, no recent change in weight HEENT: denies CORTEZ, change in hearing or vision, no other ENT complaints NECK: denies swelling or pain in neck RESPIRATORY: COPD CARDIOVASCULAR: no chest pain, no palpitations GI: constipation. : urination is normal MUSCULOSKELETAL: see HPI. SKIN: no rash HEMATOLOGY/LYMPHOLOGY: negative for prolonged bleeding, no swollen lymph nodes NEURO: no numbness or paresthesias and no weakness of the extremities PHYSICAL EXAM: VS: BP 95/65 Pulse 67 Temp 36.4 C (97.5 F) Resp 14 Wt 78.9 kg (174 lb) SpO2 97% BMI 25.19 kg/m KPS: 80 General Appearance: Alert and oriented. No acute distress. HEENT: NCAT. Sclera anicteric. EOMI. Neck: Normal ROM. Chest: No respiratory distress. Musculoskeletal: Normal ROM in extremities. Neuro: Speech fluent. Gait normal. No focal deficits. Hematologic: No signs of active bleeding. RADIOLOGY/LABORATORY DATA: see HPI ASSESSMENT AND PLAN: 69 year old man with metastatic prostate cancer with bone metastasis in the left pelvis and pain. I recommend palliative radiation treatment to the left pelvis. I explained the rationale, benefits, alternative management options and potential complications of radiation treatment to the patient and he understands. He wishes to think over and will let us know of his decision. Thank you very much for allowing us to participate in his care. Signed by: Sobia Oakes MD cc: Erik Cota [address] [place] [id number] Monica Jung [address] [facility] [id number] Radiation Therapy - Nursing Note (Consult) PATIENT NAME: Luis Angel Aguila PATIENT July 12, 2024 [facility] FACILITY/LOCATION: [place] Chief Complaint: consult Reason for visit: Consult. Referring physician: Internal provider Dr Jung Subjective Data: see pain assessment Additional Data Do you want to see a Shield Operator? No Are you interested in information about fertility? No Status: Patient is male Stress Scale: On a scale of 0 to 10, what number best describes how much distress you have experienced in the past week?(0 being no distress and 10 being extreme distress) 3 Social work notified: no and Pt denied need to see drug abuse social worker at this time. SIGNED by: Job Rucker RN documented in this encounter [facility] 07-12-2024 Note HNO ID: [id number] Author: JOB RUCKER RN Service: ? Author Type: Registered Nurse Type: Progress Notes Filed: 07/14/2024 11:07 Note Text: Radiation Therapy - Nursing Note (Consult) PATIENT NAME: Luis Angel Aguila PATIENT July 12, 2024 [facility] FACILITY/LOCATION: [place] Chief Complaint: consult Reason for visit: Consult. Referring physician: Internal provider Dr Jung Subjective Data: see pain assessment Additional Data Do you want to see a Shield Operator? No Are you interested in information about fertility? No Status: Patient is male Stress Scale: On a scale of 0 to 10, what number best describes how much distress you have experienced in the past week?(0 being no distress and 10 being extreme distress) 3 Social work notified: no and Pt denied need to see drug abuse social worker at this time. SIGNED by: Job Rucker RN [facility] 07-12-2024 History of Present illness Narrative Oncologic problem(s): 1) Castrate sensitive prostate cancer. HPI: The patient is a 69-year-old male with past medical history significant for hyperlipidemia, hypertension, moderate COPD, GERD, previous cervical spine surgery, chronic low back pain and prostate cancer. Developed gross hematuria. PSA 50s. RP with penile implant. Bladder tear about a month later. PET--recurrence in prostate bed. 06/2021 4 weeks RT in [place] with GnRH agonist treatment (Lupron). Stopped due to side effects--Severe diarrhea and n/v. PSA undetectable 06/2022. Presumably from Lupron. CT A/P 11/18/2022: IMPRESSION: 1. Postoperative ileus versus changes of early small bowel obstruction within the right pelvis as discussed above. Short-term follow-up suggested. 2. Changes of recent prostatectomy and penile implant. There is a 6.0 x 2.7 x 9.5 cm nonencapsulated postoperative fluid collection within the right lower quadrant subcutaneous fat adjacent to the penile pump. 3. Mild free fluid. 4. Sacral insufficiency fractures. Medically managed for SBO. Saw Dr. Ariza at 11/10/2023: -Assessment/Plan I personally saw patient and counselled all visit on his diagnosis, kamilla history and coordination of his care. This is a 68 y.o. male man known with LN+ PC on ADT (d/c zytiga/pred and apa s/t AEs) with T > 50 and low PSA and negative recent PSMA (June 2022). He had incomplete salvage XRT but aborted s/t bowel tox. He is discontinuing ADT per pt preference - understands R/A of this decision. He was found with some lung abn, but PET was negative and bronch results pending. He is smoker. Will call him in few weeks to Fup on bronch results We discussed the clinical significance of diagnosis, goals of care and treatment plan in detail. Thank you for the opportunity to be involved in the care of Luis Angel Aguila. Please do not hesitate to reach out with any questions. Thank you. Path was negative. Per recent note from [facility] -Follow up sp EGD with biopsies 11/26/2023. 1 cm circumferential salmon colored mucosa seen at the GE junction at the time of EGD, consistent with short segment Oliver's esophagus. 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 We discussed the etiology of Oliver's and need for continued endoscopic surveillance due to risk of malignancy. Recommend patient continue on his PPI/H2 nabil, repeat EGD in 5 years for surveillance. OV 07/05/2024: Had a PSMA PET scan done at . 04/2024 Impression: 1. Status post prostatectomy without focally increased Ga68 PSMA expression within the prostate gland to suggest local recurrence. 2. Mild PSMA-avid sub-centimeter aortocaval lymph node, nereida metastasis cannot be excluded. Production Weigher images sent to PACS for review. 3. Mild PSMA expression within the lung nodule along right heart border which was not FDG avid on PET dated 10/01/2023, non-specific. Continued attention on follow-up imaging is recommended. 4. Mild Ga68 PSMA-avid within right iliac bone lesion, although not typical for prosthetic bone metastasis, continued attention on follow-up imaging is recommended. I'm not doing anymore of those shots. Hot flashes resolved. No symptoms of LUTS. LBP significantly improved after epidural injection. 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 Interim history: Had repeat PET scan. Has occasional hip pain previously relieved with cortisone injections. Still working 12 to 14 hours a day. No pain getting in and out of the truck. 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 1/2 to 1 tablet po qhs as needed for spasm atenolol (TENORMIN) 50 mg tablet Take one tablet daily along with 25 mg tablet to equal 75 mg daily atorvastatin (LIPITOR) 40 mg tablet Take 1 tablet by mouth daily at bedtime. For cholesterol. lisinopril (ZESTRIL) 40 mg tablet Take 1 tablet by mouth once daily. pregabalin (LYRICA) 100 mg capsule Take 1 capsule by mouth three times a day for 180 days. albuterol HFA (VENTOLIN HFA) 90 mcg/actuation inhaler Inhale 2 Puffs as instructed every 4 hours as needed for wheezing/shortness of breath. omeprazole (PRILOSEC) 40 mg capsule Take 1 capsule by mouth two times a day. tiotropium-olodaterol (STIOLTO RESPIMAT) 2.5-2.5 mcg/actuation inhaler Inhale 2 Puffs as instructed once daily. famotidine (PEPCID) 40 mg tablet Take 40 mg by mouth once daily. acetaminophen (TYLENOL EXTRA STRENGTH) 500 mg tablet Take 1,000 mg by mouth every 8 hours as needed. aspirin, enteric coated (ASPIRIN, ENTERIC COATED) 81 mg EC tablet Take 81 mg by mouth once daily. docusate sodium (STOOL SOFTENER) 100 mg capsule Take 100 mg by mouth twice daily. cholecalciferol (VITAMIN D-3) 50 mcg (2,000 unit) tablet Take 2,000 Units by mouth once daily. beta-carotene,A,-vits C,E/mins (OCUVITE ORAL) Take 1 tablet by mouth once daily. calcium carbonate (CALCIUM 600 ORAL) Take 1 tablet by mouth once daily. Multivitamin capsule Take 1 capsule by mouth once daily. No current facility-administered medications for this visit. Social History Tobacco Use Smoking status: Every Day Current packs/day: 1.00 Average packs/day: 1 pack/day for 55.0 years (55.0 ttl pk-yrs) Types: Cigarettes Smokeless tobacco: Never Tobacco comments: Pt has cut back to 1/2 pack daily. Vaping Use Vaping status: Never Used Substance Use Topics Alcohol use: Yes Comment: occasionaly Drug use: Never Family History Problem Relation Age of Onset Lung Cancer Mother Dementia Father other (ETOH) Father Hypertension Brother Aneurysm Maternal Grandmother other (car accident) Maternal Grandfather other (car accident) Paternal Grandfather ROS: Constitutional: No fever. No drenching night sweats. Normal appetite. No unexplained weight loss. No significant fatigue. Neuro: No recent CORTEZ, vertigo, dizziness or imbalance. HEENT: No recent change in voice, vision or hearing. Resp: No cough, wheeze of hemoptysis. No shortness of breath at rest. ANDERSON--can't climb full set of stairs. CVS: No exertional chest pain, PND or orthopnea. No extremity swelling/edema. No symptoms of claudication. No painful or tender varicose veins. GI: No dysgeusia. No symptoms of stomatitis. No dysphagia or odynophagia. No reflux, n/v, change in bowel habits. No abdominal pain, bloating or distension. No black or bloody stools. : See HPI. Endo: No hot flashes. No polyuria or polydipsia. No heat or cold intolerance. Musculoskeletal: Chronic LBP. Derm: No current rash. No history of jaundice. No diffuse pruritis. Heme: No unusual bleeding and unexplained bruising. Psych: Normal mood. PHYSICAL EXAM: Vitals: Blood pressure 96/65, pulse 67, temperature 36.6 C (97.8 F), temperature source Temporal, weight 78.9 kg (174 lb), SpO2 97%. Well-appearing and in no acute distress. EYES: Sclerae are anicteric bilaterally. LYMPHATIC: There is no palpable cervical, supraclavicula adenopathy. RESPIRATORY: Inspiratory breath sounds are of normal intensity in all arana. No rales, wheezes or rhonchi. CARDIOVASCULAR: Rhythm is regular. ABDOMEN: The abdomen is nondistended. Extremities: No swelling or edema. SKIN: No jaundice. ASSESSMENT/PLAN: (C61, C77.2) 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) (primary encounter diagnosis) Assessment: -The patient is a 69-year-old male with past medical history as outlined above. Diagnosed with prostate cancer after developing gross hematuria. Underwent RP in [place]. Shortly thereafter he was started on ADT and radiation. Was not able to complete therapy secondary to severe diarrhea, nausea and vomiting. Had been receiving intermittent ADT. -Significant hot flashes and mood swings with ADT. -PSA undetectable 09/2022. 0.23 ng/mL 12/13/2022. -Dr. Rahman's recommendations that: Continue to monitor PSA every 3 months. Once PSADT <6 months, start intermittent Lupron. Once he develops mCRPC, Provenge vs. Pluvicto would be indicated at that time, pending data from PSMAfore trial, which will be presented at the [employer] in 01/2023. -PSA doubling time was 2.9 months--restarted Lupron 03/14/2023. -Again educated him on the importance of addressing modifiable cardiovascular risk factors particularly since he will be undergoing intermittent testosterone suppression. He does not appear to be psychologically motivated to quit smoking at this time although he has cut back. - Reviewed PET scan images with him and his . Significant disease in the left acetabulum and iliac bone. We discussed the importance of resuming ADT and adding second-generation antiandrogen medication. He still declines treatment understanding for well very high risk of disease progression and potential fracture of the left acetabulum. He is amenable to discussing potential for radiation with Dr. Oakes. Plan: -Hold Lupron for now. -See Dr. Oakes today. - Office visit following radiation. If he is adamant about not resuming testosterone suppression then consider high-dose bicalutamide, starting with 50 mg daily and titrating up to 150 mg daily. -Also consider referral to [facility] for second opinion. -Follow up with PCP for other health issues. Portions of this documentation were copied and pasted from my previous office visit note dated 07/05/2024 in order to provide a cohesive continuity of the history. The note has been reviewed and edited and updated as necessary. Monica Jung DO documented in this encounter [facility] 07-12-2024 Note HNO ID: [id number] Author: MONICA JUNG DO Service: ? Author Type: Physician Type: Progress Notes Filed: 07/12/2024 10:10 Note Text: Oncologic problem(s): 1) Castrate sensitive prostate cancer. HPI: The patient is a 69-year-old male with past medical history significant for hyperlipidemia, hypertension, moderate COPD, GERD, previous cervical spine surgery, chronic low back pain and prostate cancer. Developed gross hematuria. PSA 50s. RP with penile implant. Bladder tear about a month later. PET--recurrence in prostate bed. 06/2021 4 weeks RT in [place] with GnRH agonist treatment (Lupron). Stopped due to side effects--Severe diarrhea and n/v. PSA undetectable 06/2022. Presumably from Lupron. CT A/P 11/18/2022: IMPRESSION: 1. Postoperative ileus versus changes of early small bowel obstruction within the right pelvis as discussed above. Short-term follow-up suggested. 2. Changes of recent prostatectomy and penile implant. There is a 6.0 x 2.7 x 9.5 cm nonencapsulated postoperative fluid collection within the right lower quadrant subcutaneous fat adjacent to the penile pump. 3. Mild free fluid. 4. Sacral insufficiency fractures. Medically managed for SBO. Saw Dr. Ariza at 11/10/2023: -Assessment/Plan I personally saw patient and counselled all visit on his diagnosis, kamilla history and coordination of his care. This is a 68 y.o. male man known with LN+ PC on ADT (d/c zytiga/pred and apa s/t AEs) with T > 50 and low PSA and negative recent PSMA (June 2022). He had incomplete salvage XRT but aborted s/t bowel tox. He is discontinuing ADT per pt preference - understands R/A of this decision. He was found with some lung abn, but PET was negative and bronch results pending. He is smoker. Will call him in few weeks to Fup on bronch results We discussed the clinical significance of diagnosis, goals of care and treatment plan in detail. Thank you for the opportunity to be involved in the care of Luis Angel Aguila. Please do not hesitate to reach out with any questions. Thank you. Path was negative. Per recent note from [facility] -Follow up sp EGD with biopsies 11/26/2023. 1 cm circumferential salmon colored mucosa seen at the GE junction at the time of EGD, consistent with short segment Oliver's esophagus. 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 We discussed the etiology of Oliver's and need for continued endoscopic surveillance due to risk of malignancy. Recommend patient continue on his PPI/H2 nabil, repeat EGD in 5 years for surveillance. OV 07/05/2024: Had a PSMA PET scan done at . 04/2024 Impression: 1. Status post prostatectomy without focally increased Ga68 PSMA expression within the prostate gland to suggest local recurrence. 2. Mild PSMA-avid sub-centimeter aortocaval lymph node, nereida metastasis cannot be excluded. Production Weigher images sent to PACS for review. 3. Mild PSMA expression within the lung nodule along right heart border which was not FDG avid on PET dated 10/01/2023, non-specific. Continued attention on follow-up imaging is recommended. 4. Mild Ga68 PSMA-avid within right iliac bone lesion, although not typical for prosthetic bone metastasis, continued attention on follow-up imaging is recommended. I'm not doing anymore of those shots. Hot flashes resolved. No symptoms of LUTS. LBP significantly improved after epidural injection. 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 Interim history: Had repeat PET scan. Has occasional hip pain previously relieved with cortisone injections. Still working 12 to 14 hours a day. No pain getting in and out of the truck. 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 1/2 to 1 tablet po qhs as needed for spasm atenolol (TENORMIN) 50 mg tablet Take one tablet daily along with 25 mg tablet to equal 75 mg daily atorvastatin (LIPITOR) 40 mg tablet Take 1 tablet by mouth daily at bedtime. For cholesterol. lisinopril (ZESTRIL) 40 mg tablet Take 1 tablet by mouth once daily. pregabalin (LYRICA) 100 mg capsule Take 1 capsule by mouth three times a (more content not included)... [facility] 07-08-2024 Telephone encounter Note Spoke to patient and scheduled both Dr. Jung and Dr Oakes on 07/12 per patient request Nela Zamora [facility] 07-08-2024 Miscellaneous Notes Spoke to patient and scheduled both Dr. Jung and Dr Oakes on 07/12 per patient request Nela Zamora Called patient and spouse to review PET scan results. PET was compared to CT 2022. PET scan showing new bone lesion from previous. Kat asking if there are any alternatives to Lupron for treatment as pt continues to decline an GnRH agonists. Dr. Jung recommending radiation consult. He is also hesitant to pursue radiation due to a previous experience. They are willing to pursue consult. Will send referral to Dr. Oakes. PSR: can you please schedule consult with Dr. Oakes and a follow up with Dr. Jung Pt will need Friday appts or as late in the day as possible. Thank you, Kavon Spouse called stating a lot of concern/questions from results of Pet Scan. Requesting to speak with clinical today. documented in this encounter [facility] 07-08-2024 Telephone encounter Note Called patient and spouse to review PET scan results. PET was compared to CT 2022. PET scan showing new bone lesion from previous. Kat asking if there are any alternatives to Lupron for treatment as pt continues to decline an GnRH agonists. Dr. Jung recommending radiation consult. He is also hesitant to pursue radiation due to a previous experience. They are willing to pursue consult. Will send referral to Dr. Oakes. PSR: can you please schedule consult with Dr. Oakes and a follow up with Dr. Jung Pt will need Friday appts or as late in the day as possible. Thank you, [facility] 07-08-2024 Telephone encounter Note Spouse called stating a lot of concern/questions from results of Pet Scan. Requesting to speak with clinical today. [facility] Work Phone: 07-07-2024 Note Luis Angel AguilaISA69 y .o. male BEING SEEN TODAY, 07/07/24, FOR Follow-up (6 mo) and Results (CT Scan) . .Mr. Aguila, 69 , past medical history significant for prostatic cancer, history of COPD, smoking with prior history of hemoptysis and lung nodule, was seen post bronch, doing well, without hemoptysis. He follows up at [facility] regarding prostate cancer.just had PET Scan. He is doing okay now. The hemoptysis subsided. Otherwise denies cough, phlegm, fever. He has been a smoker for the last 40-50 years. And still smokes. IMPRESSION 1. Lung nodule : stable Return to clinic in 6 months, further CT based on PET scan, coming up next months. 2. Hemoptysis, resolved. 3. Continue Stiolto, albuterol for chronic obstructive pulmonary disease. 4. Smoker: not receptive of cessation. cc:GILDARDO FOSTER CNP HPI Review of Systems Respiratory: Positive for shortness of breath. Negative for apnea, cough, choking and chest tightness. Cardiovascular: Negative. Gastrointestinal: Negative. Past Medical History: Diagnosis Date Arthritis Yrs ago Back pain Yrs ago Bladder problem 2021 Cancer (HCC) Feb 15 Prostate Chronic pain disorder Yrs The last 2 yrs COPD (chronic obstructive pulmonary disease) (HCC) GERD (gastroesophageal reflux disease) GI (gastrointestinal bleed) 2022 Was at [facility] Hyperlipemia Hypertension Lung nodule 2016 They only found 1 in [facility] Prior to Admission medications Medication Sig Start Date End Date Taking? Authorizing Provider acetaminophen (TYLENOL) 500 MG tablet Take 2 (two) tablets (1,000 mg total) by mouth every 8 (eight) hours as needed for pain . Yes Fortunato Hicks MD albuterol 90 mcg/actuation inhaler Inhale 2 (two) puffs every 4 (four) hours as needed for wheezing, shortness of breath or cough . 09/24/23 07/07/24 Yes Yon Quinteros MD amLODIPine (NORVASC) 5 MG tablet Take 1 (one) tablet (5 mg total) by mouth daily . 10/30/23 Yes Gildardo Foster CNP aspirin 81 MG EC tablet Take 1 (one) tablet (81 mg total) by mouth daily . Yes ProviderFortunato MD atenoloL (TENORMIN) 50 MG tablet Take 1 (one) tablet (50 mg total) by mouth daily . 10/30/23 Yes Gildardo Foster CNP atorvastatin (LIPITOR) 40 MG tablet Take 1 (one) tablet (40 mg total) by mouth every night at bedtime . 10/30/23 Yes Gidlardo Foster CNP cholecalciferol, vitamin D3, 50 mcg (2,000 unit) Tab Take 1 (one) tablet (2,000 Units total) by mouth daily . Yes ProviderFortunato MD cyclobenzaprine (FLEXERIL) 10 MG tablet Take 1 (one) tablet (10 mg total) by mouth nightly . 10/30/23 Yes Gildardo Foster CNP docusate sodium (COLACE) 100 MG capsule Take 1 (one) capsule (100 mg total) by mouth 2 (two) times a day . Yes ProviderFortunato MD famotidine (PEPCID) 40 MG tablet Take 1 (one) tablet (40 mg total) by mouth daily . 10/30/23 10/29/24 Yes Gildardo Foster CNP lisinopriL (PRINIVIL,ZESTRIL) 40 MG tablet Take 1 (one) tablet (40 mg total) by mouth daily . 10/30/23 Yes Gildardo Foster CNP multivitamin with minerals cap Take 1 capsule by mouth daily . Yes ProviderFortunato MD omeprazole (PRILOSEC) 40 MG capsule Take 1 (one) capsule (40 mg total) by mouth 2 (two) times a day . 10/30/23 Yes Gildardo Foster CNP pregabalin (LYRICA) 75 MG capsule Take 2 (two) capsules (150 mg total) by mouth nightly . 10/30/23 Yes Gildardo Foster CNP spironolactone (ALDACTONE) 25 MG tablet Take 1 (one) tablet (25 mg total) by mouth daily . 10/30/23 Yes Gildardo Foster CNP tiotropium-olodateroL (Stiolto Respimat) 2.5-2.5 mcg/actuation Mist respimat inhaler Inhale 2 (two) puffs daily . 10/30/23 07/07/24 Yes Gildardo Foster CNP OARRS/NARxCHECK Report Received and Assessed: Date controlled substance agreement signed: No data found Date of last drug screen: BP 107/70 (BP Location: Left arm, Patient Position: Sitting, BP Cuff Size: Adult) Comment (BP Cuff Size): long Pulse 60 Ht 5' 9 Wt 81 kg (178 lb 9.6 oz) SpO2 97% Comment: AIR BMI 26.37 kg/m Physical Exam HENT: Head: Normocephalic and atraumatic. Cardiovascular: Rate and Rhythm: Normal rate. Pulmonary: Effort: Pulmonary effort is normal. No respiratory distress. Breath sounds: No stridor. No wheezing or rhonchi. Neurological: General: No focal deficit present. Mental Status: He is oriented to person, place, and time. Psychiatric: Mood and Affect: Mood normal. Thought Content: Thought content normal. Judgment: Judgment normal. PULMONARY TESTING: @CXR/CT@Stable appearance of the multiple bilateral pulmonary nodules including a 1.5 x 1.2 cm juxta cardial nodule within the right middle lobe that did not demonstrate any FDG uptake. Recommend continued imaging surveillance with a repeat chest CT in 6 months. Moderate upper lung predominant emphysema. Mild calcified coronary artery d (more content not included)... [facility] 07-07-2024 History of Present illness Narrative Luis Angel AguilaISA69 y.o. male BEING SEEN TODAY, 07/07/24, FOR Follow-up (6 mo) and Results (CT Scan) . .Mr. Aguila, 69 , past medical history significant for prostatic cancer, history of COPD, smoking with prior history of hemoptysis and lung nodule, was seen post bronch, doing well, without hemoptysis. He follows up at [facility] regarding prostate cancer.just had PET Scan. He is doing okay now. The hemoptysis subsided. Otherwise denies cough, phlegm, fever. He has been a smoker for the last 40-50 years. And still smokes. IMPRESSION 1. Lung nodule : stable Return to clinic in 6 months, further CT based on PET scan, coming up next months. 2. Hemoptysis, resolved. 3. Continue Stiolto, albuterol for chronic obstructive pulmonary disease. 4. Smoker: not receptive of cessation. cc:GILDARDO FOSTER, TOOL GRINDER SET UP OPERATOR GEAR HPI Review of Systems Respiratory: Positive for shortness of breath. Negative for apnea, cough, choking and chest tightness. Cardiovascular: Negative. Gastrointestinal: Negative. Past Medical History: Diagnosis Date Arthritis Yrs ago Back pain Yrs ago Bladder problem 2021 Cancer (HCC) Feb 15 Prostate Chronic pain disorder Yrs The last 2 yrs COPD (chronic obstructive pulmonary disease) (HCC) GERD (gastroesophageal reflux disease) GI (gastrointestinal bleed) 2022 Was at [facility] Hyperlipemia Hypertension Lung nodule 2017 They only found 1 in [facility] Prior to Admission medications Medication Sig Start Date End Date Taking? Authorizing Provider acetaminophen (TYLENOL) 500 MG tablet Take 2 (two) tablets (1,000 mg total) by mouth every 8 (eight) hours as needed for pain . Yes Fortunato Hicks MD albuterol 90 mcg/actuation inhaler Inhale 2 (two) puffs every 4 (four) hours as needed for wheezing, shortness of breath or cough . 09/24/23 07/07/24 Yes Yon Quinteros MD amLODIPine (NORVASC) 5 MG tablet Take 1 (one) tablet (5 mg total) by mouth daily . 10/30/23 Yes Gildardo Foster CNP aspirin 81 MG EC tablet Take 1 (one) tablet (81 mg total) by mouth daily . Yes ProviderFortunato MD atenoloL (TENORMIN) 50 MG tablet Take 1 (one) tablet (50 mg total) by mouth daily . 10/30/23 Yes Gildardo Fosetr CNP atorvastatin (LIPITOR) 40 MG tablet Take 1 (one) tablet (40 mg total) by mouth every night at bedtime . 10/30/23 Yes Gildardo Foster CNP cholecalciferol, vitamin D3, 50 mcg (2,000 unit) Tab Take 1 (one) tablet (2,000 Units total) by mouth daily . Yes ProviderFortunato MD cyclobenzaprine (FLEXERIL) 10 MG tablet Take 1 (one) tablet (10 mg total) by mouth nightly . 10/30/23 Yes Gildardo Foster CNP docusate sodium (COLACE) 100 MG capsule Take 1 (one) capsule (100 mg total) by mouth 2 (two) times a day . Yes Fortunato Hicks MD famotidine (PEPCID) 40 MG tablet Take 1 (one) tablet (40 mg total) by mouth daily . 10/30/23 10/29/24 Yes Gildardo Foster CNP lisinopriL (PRINIVIL,ZESTRIL) 40 MG tablet Take 1 (one) tablet (40 mg total) by mouth daily . 10/30/23 Yes Gildardo Foster CNP multivitamin with minerals cap Take 1 capsule by mouth daily . Yes Provider, MD Fortunato omeprazole (PRILOSEC) 40 MG capsule Take 1 (one) capsule (40 mg total) by mouth 2 (two) times a day . 10/30/23 Yes Gildardo Foster CNP pregabalin (LYRICA) 75 MG capsule Take 2 (two) capsules (150 mg total) by mouth nightly . 10/30/23 Yes Gildardo Foster CNP spironolactone (ALDACTONE) 25 MG tablet Take 1 (one) tablet (25 mg total) by mouth daily . 10/30/23 Yes Gildardo Foster CNP tiotropium-olodateroL (Stiolto Respimat) 2.5-2.5 mcg/actuation Mist respimat inhaler Inhale 2 (two) puffs daily . 10/30/23 07/07/24 Yes Gildardo Foster CNP OARRS/NARxCHECK Report Received and Assessed: Date controlled substance agreement signed: No data found Date of last drug screen: BP 107/70 (BP Location: Left arm, Patient Position: Sitting, BP Cuff Size: Adult) Comment (BP Cuff Size): long Pulse 60 Ht 5' 9 Wt 81 kg (178 lb 9.6 oz) SpO2 97% Comment: RM AIR BMI 26.37 kg/m Physical Exam HENT: Head: Normocephalic and atraumatic. Cardiovascular: Rate and Rhythm: Normal rate. Pulmonary: Effort: Pulmonary effort is normal. No respiratory distress. Breath sounds: No stridor. No wheezing or rhonchi. Neurological: General: No focal deficit present. Mental Status: He is oriented to person, place, and time. Psychiatric: Mood and Affect: Mood normal. Thought Content: Thought content normal. Judgment: Judgment normal. PULMONARY TESTING: @CXR/CT@Stable appearance of the multiple bilateral pulmonary nodules including a 1.5 x 1.2 cm juxta cardial nodule within the right middle lobe that did not demonstrate any FDG uptake. Recommend continued imaging surveillance with a repeat chest CT in 6 months. Moderate upper lung predominant emphysema. Mild calcified coronary artery disease. WTW/tde There are no diagnoses linked to this encounter. Yon quinteros MD. documented in this encounter [facility] 07-07-2024 Instructions Silvia Foreman MA - 07/07/2024 4:04 PM EDT Our office does not accept electronic refill requests from pharmacies. If you need refills, please notify our staff at the time of your office visit or by contacting our office via phone or MyChart. documented in this encounter [facility] 07-07-2024 Note HNO ID: [id number] Author: ESTRELLITA SHELDON RT(Otilia) Service: ? Author Type: Technologist Type: Progress Notes Filed: 07/07/2024 09:52 Note Text: RADIOLOGY SERVICE PROGRESS NOTE SERVICE DATE: 07/07/2024 SERVICE TIME: 9:51 AM PATIENT IDENTITY VERIFICATION COMPLETED USING TWO (2) STANDARD IDENTIFIERS: Name and Date of confirmed by patient verbally FALL SCREENING: Has the patient had 2 falls in the last year or 1 fall with injury or currently using an Ambulatory Assistive Device (Walker, Cane, Wheelchair, Crutches, etc.)? No PATIENT GENDER DATA: .male ALLERGIES: NA MEDICATIONS REVIEWED: Not applicable PATIENT RELEVANT IMPLANT DATA REVIEWED: Not Applicable PATIENT PRESENTS WITH AN IMPLANTABLE OR ATTACHED WIND TURBINE PERFORMANCE ENGINEER: NA CREATININE: Creatinine Date Value Ref Range Status 06/06/2023 0.84 0.73 - 1.22 mg/dL Final 05/05/2023 0.91 0.73 - 1.22 mg/dL Final 03/10/2023 0.97 0.73 - 1.22 mg/dL Final Estimated Glomerular Filtration Rate Date Value Ref Range Status 06/06/2023 94 >=60 mL/min/1.73m? Final Comment: Estimated Glomerular Filtration Rate (eGFR) is calculated using the 2020 CKD-EPI creatinine equation. This equation utilizes serum creatinine, sex, and age as parameters. The creatinine assay has traceable calibration to isotope dilution-mass spectrometry. Refer to KDIGO guidelines for clinical interpretation. In patients with unstable renal function, e.g. those with acute kidney injury, the eGFR may not accurately reflect actual GFR. P.O.C.T. RESULTS: N/A July 07, [address] PERFORMED: No IV SITE: Ambulatory: A peripheral IV was started in the Left antecubital site with a Angio cath: 22 gauge. POST EXAM PIV STATUS: Discontinued PROCEDURE TYPE: NM INJECT: PET/CT BODY SCAN. 8.4 mCi [id number]. No other medications given.. ADMINISTRATION TIME: 09 PATIENT DISCHARGED TO: Ambulatory patient, left NM department area. Is this a therapy: No A Diagnostic radioactive procedure has taken place, with no further precautions necessary other than routine body substance precautions. More information regarding radiation safety can be found using this link: [email or web address] [email or web address] 20Diagnostic%20Nuclear%20Medicine%20Pr [email or web address] SIGNATURE: RT Christina(R) PATIENT NAME: Luis Angel Aguila DATE: July 07, 2024 TIME: 9:51 AM PAGER/CONTACT #: [facility] 07-07-2024 History of Present illness Narrative RADIOLOGY SERVICE PROGRESS NOTE SERVICE DATE: 07/07/2024 SERVICE TIME: 9:51 AM PATIENT IDENTITY VERIFICATION COMPLETED USING TWO (2) STANDARD IDENTIFIERS: Name and Date of confirmed by patient verbally FALL SCREENING: Has the patient had 2 falls in the last year or 1 fall with injury or currently using an Ambulatory Assistive Device (Walker, Cane, Wheelchair, Crutches, etc.)? No PATIENT GENDER DATA: .male ALLERGIES: NA MEDICATIONS REVIEWED: Not applicable PATIENT RELEVANT IMPLANT DATA REVIEWED: Not Applicable PATIENT PRESENTS WITH AN IMPLANTABLE OR ATTACHED WIND TURBINE PERFORMANCE ENGINEER: NA CREATININE: Creatinine Date Value Ref Range Status 06/06/2023 0.84 0.73 - 1.22 mg/dL Final 05/05/2023 0.91 0.73 - 1.22 mg/dL Final 03/10/2023 0.97 0.73 - 1.22 mg/dL Final Estimated Glomerular Filtration Rate Date Value Ref Range Status 06/06/2023 94 >=60 mL/min/1.73m Final Comment: Estimated Glomerular Filtration Rate (eGFR) is calculated using the 2020 CKD-EPI creatinine equation. This equation utilizes serum creatinine, sex, and age as parameters. The creatinine assay has traceable calibration to isotope dilution-mass spectrometry. Refer to KDIGO guidelines for clinical interpretation. In patients with unstable renal function, e.g. those with acute kidney injury, the eGFR may not accurately reflect actual GFR. P.O.C.T. RESULTS: N/A July 07, [address] PERFORMED: No IV SITE: Ambulatory: A peripheral IV was started in the Left antecubital site with a Angio cath: 22 gauge. POST EXAM PIV STATUS: Discontinued PROCEDURE TYPE: NM INJECT: PET/CT BODY SCAN. 8.4 mCi [id number]. No other medications given.. ADMINISTRATION TIME: 941 PATIENT DISCHARGED TO: Ambulatory patient, left NM department area. Is this a therapy: No A Diagnostic radioactive procedure has taken place, with no further precautions necessary other than routine body substance precautions. More information regarding radiation safety can be found using this link: [email or web address] [email or web address]%20Nuclear%20Medicine% 20Procedures.pdf SIGNATURE: FALGUNI VasquezR) PATIENT NAME: Luis Angel Aguila DATE: July 07, 2024 TIME: 9:51 AM PAGER/CONTACT #: documented in this encounter [facility] 07-05-2024 Note HNO ID: [id number] Author: MONICA JUNG, DO Service: ? Author Type: Physician Type: Progress Notes Filed: 07/05/2024 09:21 Note Text: Oncologic problem(s): 1) Castrate sensitive prostate cancer. HPI: The patient is a 69-year-old male with past medical history significant for hyperlipidemia, hypertension, moderate COPD, GERD, previous cervical spine surgery, chronic low back pain and prostate cancer. Developed gross hematuria. PSA 50s. RP with penile implant. Bladder tear about a month later. PET--recurrence in prostate bed. 06/2021 4 weeks RT in [place] with GnRH agonist treatment (Lupron). Stopped due to side effects--Severe diarrhea and n/v. PSA undetectable 06/2022. Presumably from Lupron. CT A/P 11/18/2022: IMPRESSION: 1. Postoperative ileus versus changes of early small bowel obstruction within the right pelvis as discussed above. Short-term follow-up suggested. 2. Changes of recent prostatectomy and penile implant. There is a 6.0 x 2.7 x 9.5 cm nonencapsulated postoperative fluid collection within the right lower quadrant subcutaneous fat adjacent to the penile pump. 3. Mild free fluid. 4. Sacral insufficiency fractures. Medically managed for SBO. Saw Dr. Ariza at 11/10/2023: -Assessment/Plan I personally saw patient and counselled all visit on his diagnosis, kamilla history and coordination of his care. This is a 68 y.o. male man known with LN+ PC on ADT (d/c zytiga/pred and apa s/t AEs) with T > 50 and low PSA and negative recent PSMA (June 2022). He had incomplete salvage XRT but aborted s/t bowel tox. He is discontinuing ADT per pt preference - understands R/A of this decision. He was found with some lung abn, but PET was negative and bronch results pending. He is smoker. Will call him in few weeks to Fup on bronch results We discussed the clinical significance of diagnosis, goals of care and treatment plan in detail. Thank you for the opportunity to be involved in the care of Luis Angel Aguila. Please do not hesitate to reach out with any questions. Thank you. Path was negative. Per recent note from [facility] -Follow up sp EGD with biopsies 11/26/2023. 1 cm circumferential salmon colored mucosa seen at the GE junction at the time of EGD, consistent with short segment Oliver's esophagus. 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 We discussed the etiology of Oliver's and need for continued endoscopic surveillance due to risk of malignancy. Recommend patient continue on his PPI/H2 nabil, repeat EGD in 5 years for surveillance. Presents for ongoing oncologic management. Interim history: Had a PSMA PET scan done at . Impression: 1. Status post prostatectomy without focally increased Ga68 PSMA expression within the prostate gland to suggest local recurrence. 2. Mild PSMA-avid sub-centimeter aortocaval lymph node, nereida metastasis cannot be excluded. Production Weigher images sent to PACS for review. 3. Mild PSMA expression within the lung nodule along right heart border which was not FDG avid on PET dated 10/01/2023, non-specific. Continued attention on follow-up imaging is recommended. 4. Mild Ga68 PSMA-avid within right iliac bone lesion, although not typical for prosthetic bone metastasis, continued attention on follow-up imaging is recommended. I'm not doing anymore of those shots. Hot flashes resolved. No symptoms of LUTS. LBP significantly improved after epidural injection. 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 1/2 to 1 tablet po qhs as needed for spasm atenolol (TENORMIN) 50 mg tablet Take one tablet daily along with 25 mg tablet to equal 75 mg daily atorvastatin (LIPITOR) 40 mg tablet Take 1 tablet by mouth daily at bedtime. For cholesterol. lisinopril (ZESTRIL) 40 mg tablet Take 1 tablet by mouth once daily. pregabalin (LYRICA) 100 mg capsule Take 1 capsule by mouth three times a day for 180 days. albuterol HFA (VENTOLIN HFA) 90 mcg/actuation inhaler Inhale 2 Puffs as instructed every 4 hours as needed for wheezing/shortness of breath. omeprazole (PRILOSEC) 40 mg ca (more content not included)... [facility] 07-05-2024 History of Present illness Narrative Oncologic problem(s): 1) Castrate sensitive prostate cancer. HPI: The patient is a 69-year-old male with past medical history significant for hyperlipidemia, hypertension, moderate COPD, GERD, previous cervical spine surgery, chronic low back pain and prostate cancer. Developed gross hematuria. PSA 50s. RP with penile implant. Bladder tear about a month later. PET--recurrence in prostate bed. 06/2021 4 weeks RT in [place] with GnRH agonist treatment (Lupron). Stopped due to side effects--Severe diarrhea and n/v. PSA undetectable 06/2022. Presumably from Lupron. CT A/P 11/18/2022: IMPRESSION: 1. Postoperative ileus versus changes of early small bowel obstruction within the right pelvis as discussed above. Short-term follow-up suggested. 2. Changes of recent prostatectomy and penile implant. There is a 6.0 x 2.7 x 9.5 cm nonencapsulated postoperative fluid collection within the right lower quadrant subcutaneous fat adjacent to the penile pump. 3. Mild free fluid. 4. Sacral insufficiency fractures. Medically managed for SBO. Saw Dr. Ariza at 11/10/2023: -Assessment/Plan I personally saw patient and counselled all visit on his diagnosis, kamilla history and coordination of his care. This is a 68 y.o. male man known with LN+ PC on ADT (d/c zytiga/pred and apa s/t AEs) with T > 50 and low PSA and negative recent PSMA (June 2022). He had incomplete salvage XRT but aborted s/t bowel tox. He is discontinuing ADT per pt preference - understands R/A of this decision. He was found with some lung abn, but PET was negative and bronch results pending. He is smoker. Will call him in few weeks to Fup on bronch results We discussed the clinical significance of diagnosis, goals of care and treatment plan in detail. Thank you for the opportunity to be involved in the care of Luis Angel Aguila. Please do not hesitate to reach out with any questions. Thank you. Path was negative. Per recent note from [facility] -Follow up sp EGD with biopsies 11/26/2023. 1 cm circumferential salmon colored mucosa seen at the GE junction at the time of EGD, consistent with short segment Oliver's esophagus. 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 We discussed the etiology of Oliver's and need for continued endoscopic surveillance due to risk of malignancy. Recommend patient continue on his PPI/H2 nabil, repeat EGD in 5 years for surveillance. Presents for ongoing oncologic management. Interim history: Had a PSMA PET scan done at . Impression: 1. Status post prostatectomy without focally increased Ga68 PSMA expression within the prostate gland to suggest local recurrence. 2. Mild PSMA-avid sub-centimeter aortocaval lymph node, nereida metastasis cannot be excluded. Production Weigher images sent to PACS for review. 3. Mild PSMA expression within the lung nodule along right heart border which was not FDG avid on PET dated 10/01/2023, non-specific. Continued attention on follow-up imaging is recommended. 4. Mild Ga68 PSMA-avid within right iliac bone lesion, although not typical for prosthetic bone metastasis, continued attention on follow-up imaging is recommended. I'm not doing anymore of those shots. Hot flashes resolved. No symptoms of LUTS. LBP significantly improved after epidural injection. 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 1/2 to 1 tablet po qhs as needed for spasm atenolol (TENORMIN) 50 mg tablet Take one tablet daily along with 25 mg tablet to equal 75 mg daily atorvastatin (LIPITOR) 40 mg tablet Take 1 tablet by mouth daily at bedtime. For cholesterol. lisinopril (ZESTRIL) 40 mg tablet Take 1 tablet by mouth once daily. pregabalin (LYRICA) 100 mg capsule Take 1 capsule by mouth three times a day for 180 days. albuterol HFA (VENTOLIN HFA) 90 mcg/actuation inhaler Inhale 2 Puffs as instructed every 4 hours as needed for wheezing/shortness of breath. omeprazole (PRILOSEC) 40 mg capsule Take 1 capsule by mouth two times a day. tiotropium-olodaterol (STIOLTO RESPIMAT) 2.5-2.5 mcg/actuation inhaler Inhale 2 Puffs as instructed once daily. famotidine (PEPCID) 40 mg tablet Take 40 mg by mouth once daily. acetaminophen (TYLENOL EXTRA STRENGTH) 500 mg tablet Take 1,000 mg by mouth every 8 hours as needed. aspirin, enteric coated (ASPIRIN, ENTERIC COATED) 81 mg EC tablet Take 81 mg by mouth once daily. docusate sodium (STOOL SOFTENER) 100 mg capsule Take 100 mg by mouth twice daily. cholecalciferol (VITAMIN D-3) 50 mcg (2,000 unit) tablet Take 2,000 Units by mouth once daily. beta-carotene,A,-vits C,E/mins (OCUVITE ORAL) Take 1 tablet by mouth once daily. calcium carbonate (CALCIUM 600 ORAL) Take 1 tablet by mouth once daily. Multivitamin capsule Take 1 capsule by mouth once daily. pregabalin (LYRICA) 75 mg capsule Take one pill twice daily (Patient not taking: Reported on 05/20/2024) No current facility-administered medications for this visit. Social History Tobacco Use Smoking status: Every Day Current packs/day: 1.00 Average packs/day: 1 pack/day for 55.0 years (55.0 ttl pk-yrs) Types: Cigarettes Smokeless tobacco: Never Tobacco comments: Pt has cut back to 1/2 pack daily. Vaping Use Vaping status: Never Used Substance Use Topics Alcohol use: Yes Comment: occasionaly Drug use: Never Family History Problem Relation Age of Onset Lung Cancer Mother Dementia Father other (ETOH) Father Hypertension Brother Aneurysm Maternal Grandmother other (car accident) Maternal Grandfather other (car accident) Paternal Grandfather ROS: Constitutional: No fever. No drenching night sweats. Normal appetite. No unexplained weight loss. No significant fatigue. Neuro: No recent CORTEZ, vertigo, dizziness or imbalance. HEENT: No recent change in voice, vision or hearing. Resp: No cough, wheeze of hemoptysis. No shortness of breath at rest. ANDERSON--can't climb full set of stairs. CVS: No exertional chest pain, PND or orthopnea. No extremity swelling/edema. No symptoms of claudication. No painful or tender varicose veins. GI: No dysgeusia. No symptoms of stomatitis. No dysphagia or odynophagia. No reflux, n/v, change in bowel habits. No abdominal pain, bloating or distension. No black or bloody stools. : See HPI. Endo: No hot flashes. No polyuria or polydipsia. No heat or cold intolerance. Musculoskeletal: Chronic LBP. Derm: No current rash. No history of jaundice. No diffuse pruritis. Heme: No unusual bleeding and unexplained bruising. Psych: Normal mood. PHYSICAL EXAM: Vitals: Blood pressure 105/64, pulse 66, temperature 36.4 C (97.6 F), temperature source Temporal, weight 79.6 kg (175 lb 8 oz), SpO2 99%. Well-appearing and in no acute distress. EYES: Sclerae are anicteric bilaterally. LYMPHATIC: There is no palpable cervical, supraclavicula adenopathy. RESPIRATORY: Inspiratory breath sounds are of normal intensity in all arana. No rales, wheezes or rhonchi. CARDIOVASCULAR: Rhythm is regular. ABDOMEN: The abdomen is nondistended. Extremities: No swelling or edema. SKIN: No jaundice. MUSCULOSKELETAL: No muscle wasting. ASSESSMENT/PLAN: (C61, C77.2) 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) (primary encounter diagnosis) Assessment: -The patient is a 69-year-old male with past medical history as outlined above. Diagnosed with prostate cancer after developing gross hematuria. Underwent RP in [place]. Shortly thereafter he was started on ADT and radiation. Was not able to complete therapy secondary to severe diarrhea, nausea and vomiting. Had been receiving intermittent ADT. -Significant hot flashes and mood swings with ADT. -PSA undetectable 09/2022. 0.23 ng/mL 12/13/2022. -Dr. Rahman's recommendations that: Continue to monitor PSA every 3 months. Once PSADT <6 months, start intermittent Lupron. Once he develops mCRPC, Provenge vs. Pluvicto would be indicated at that time, pending data from PSMAfore trial, which will be presented at the [employer] in 01/2023. -PSA doubling time was 2.9 months--restarted Lupron 03/14/2023. -Again educated him on the importance of addressing modifiable cardiovascular risk factors particularly since he will be undergoing intermittent testosterone suppression. He does not appear to be psychologically motivated to quit smoking at this time although he has cut back. -Again discussed the strategy of intermittent ADT, but he is not willing. He understands the implications of this decision--he is at risk of earlier and more rapid disease progression which could ultimately compromise his overall survival. -Discussed a trial of bicalutamide if/when has further progression of disease. Plan: -Hold Lupron for now. -PSA then OV in 3-4 months. -Follow up with PCP for other health issues. Portions of this documentation were copied and pasted from my previous office visit note dated 12/16/2023 in order to provide a cohesive continuity of the history. The note has been reviewed and edited and updated as necessary. Monica Jung DO documented in this encounter [facility] 06-18-2024 Telephone encounter Note Notified via [employer] Melba Benitez MA [facility] 06-18-2024 Miscellaneous Notes Notified via [employer] Melba Benitez MA 90 day rx sent. Overdue for routine follow up. Recommend OV in next 1-2 months. Prescription Refill Information The patient has been identified by name and date of : Yes Caregiver verified no other encounters exist for this prescription request: Yes Caregiver confirmed with patient/requestor that no other refills are due, in the near future, with this provider at this time: Yes The last office visit in the department: 03/01/24 Does the patient have a future office visit with this provider/department: No Requested Prescriptions Pending Prescriptions Disp Refills atenolol (TENORMIN) 50 mg tablet 90 tablet 1 Sig: Take one tablet daily along with 25 mg tablet to equal 75 mg daily atorvastatin (LIPITOR) 40 mg tablet 90 tablet 1 Sig: Take 1 tablet by mouth daily at bedtime. For cholesterol. lisinopril (ZESTRIL) 40 mg tablet 90 tablet 1 Sig: Take 1 tablet by mouth once daily. Rudy Stearns LPN June 18, 2024 10:03 AM documented in this encounter [facility] 06-18-2024 Telephone encounter Note 90 day rx sent. Overdue for routine follow up. Recommend OV in next 1-2 months. [facility] 06-18-2024 Telephone encounter Note Prescription Refill Information The patient has been identified by name and date of : Yes Caregiver verified no other encounters exist for this prescription request: Yes Caregiver confirmed with patient/requestor that no other refills are due, in the near future, with this provider at this time: Yes The last office visit in the department: 03/01/24 Does the patient have a future office visit with this provider/department: No Requested Prescriptions Pending Prescriptions Disp Refills atenolol (TENORMIN) 50 mg tablet 90 tablet 1 Sig: Take one tablet daily along with 25 mg tablet to equal 75 mg daily atorvastatin (LIPITOR) 40 mg tablet 90 tablet 1 Sig: Take 1 tablet by mouth daily at bedtime. For cholesterol. lisinopril (ZESTRIL) 40 mg tablet 90 tablet 1 Sig: Take 1 tablet by mouth once daily. Rudy Stearns LPN June 18, 2024 10:03 AM [facility] 06-17-2024 Telephone encounter Note Procedure(s) being scheduled: Lumbar ILESI 1.Are you diabetic No 2. Are you on any blood thinners? No 3. Are you taking any aspirin? Yes. Please list the current medications being prescribed 81mg. 4. Are you currently taking any antibiotics? No 5. Do you have any allergies to latex? No 6. Do you have any allergies to seafood or shellfish? No 7. Do you have any allergies to x-ray dye? No 8. Does this procedure require a delivery route driver? Yes If yes, has patient been notified that a delivery route driver is needed and must be present at check in? yes 9. Were the pre-procedure instructions explained and provided to the patient? Yes 10. Do you have a pacemaker? No 11. Do you have an internal stimulator of any kind? Sherri Yuan [facility] 06-17-2024 Miscellaneous Notes Procedure(s) being scheduled: Lumbar ILESI 1.Are you diabetic No 2. Are you on any blood thinners? No 3. Are you taking any aspirin? Yes. Please list the current medications being prescribed 81mg. 4. Are you currently taking any antibiotics? No 5. Do you have any allergies to latex? No 6. Do you have any allergies to seafood or shellfish? No 7. Do you have any allergies to x-ray dye? No 8. Does this procedure require a delivery route driver? Yes If yes, has patient been notified that a delivery route driver is needed and must be present at check in? yes 9. Were the pre-procedure instructions explained and provided to the patient? Yes 10. Do you have a pacemaker? No 11. Do you have an internal stimulator of any kind? No Dominic Yuan documented in this encounter [facility] 06-17-2024 Note HNO ID: [id number] Author: ALINA BRYSON APRN.TOOL GRINDER SET UP OPERATOR [employer] Service: ? Author Type: Nurse Practitioner Type: Progress Notes Filed: 06/17/2024 12:32 Note Text: [facility] Today's Date: 06/17/2024 Name: Luis Angel Aguila : 1955 Purpose: Follow-up Patient Evaluation - This is an established patient, returning today for continued evaluation and management of the chief complaint noted below Chief complaint: hip pain and back pain Referring Clinician: Self Pertinent Past Medical History: Hypertension (HTN), Hyperlipidemia (HLD), COPD , Gastroesophageal Reflux Disease (GERD), Ileus (11/2022), 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 node, OA multiple joints, Nicotine use disorder, Pertinent Past Surgeries: Cervical fusion, Bilat shoulder surgery Plan at last visit: (Seen on 03/11/2024 by Alina Bryson CNP) IMPRESSION: 69 year old male presents with complaint(s) of Low back pain with radicular symptoms. Patient is also suffering from a acute left hip pain due to a recent fall. I reviewed the results of the x-ray and reassess the patient continues to appear to be left greater trochanter bursitis and sending the patient up for an injection to see if that will help with the pain. This was explained to both the patient and his and they appear to understand. Diagnoses: (M70.62) Trochanteric bursitis of left hip (primary encounter diagnosis) (M54.16) Lumbar radiculopathy (M47.816) Lumbar spondylosis (M48.062) Spinal stenosis of lumbar region with neurogenic claudication (M25.552) Pain in left hip PLAN: Luis Angel Aguila would benefit from the following to reach personal goals for decreasing pain, improving function and work participation, and/or improving quality of life: Medications: Requested Prescriptions No prescriptions requested or ordered in this encounter Continue lyrica will increase to tid , 1 in am and 2 at bedtime. Interventional Procedures: Greater Trochanteric Bursal Injection under fluoroscopic guidance LEFT-SIDED at N/A Radio Recorder Needed: Joint Injection - NO (Exception: SI Joint - YES) Anticoagulant - Hold Needed: N/A (Not currently on Anticoagulants) Anticoagulant - Currently Taking: None Allergies (relevant): None Scheduling - Mobility (Can Patient independently transfer on/off an OR or Procedure table?): YES (May schedule at any location) Scheduling - Additional Info: None Studies: X-ray: Hip (Left) reviewed Functional Taoism: Continue home exercises from Chiropractics Referrals: No additional considerations at present Follow-up:2 months Depending on response to the above plan, consider: Right GT bursa injection and/or TPI Interval History: Overall pain and functional disability since last visit: Unchanged New Complaints since last visit: No Pain Description: Timing: Constant Character: Sharp Primary Location: left hip Radiation: left groin Exacerbating factors: getting up from sitting Relieving factors: sitting Interferes with: physical activity The patient reports leg weakness On 05/11/2024 pt had a left GTB CSI reporting 85% relief. Patient stating that his hip is feeling much better. States after the exacerbation from jumping off of a wagon his pain is much better and he is trying to avoid activities that may aggravate him. Patient states he is now complaining of low back pain again. States is not to the severity it was prior to the last injection but he is having this pain. Patient stating he feels the last injection worked much better than the radiofrequency ablation. Patient stating that most of the pain is in his low back not going down his leg. Current Pain Medications: Neuropathics: lyrica NSAIDS: Muscle Relaxants: Topicals: Other Prescription or OTC Pain Medications: tylenol Opioids (when applicable): Anti-depressants or Mood-Stabilizers: None Anti-Coagulants: None Therapies Attended (Current or Most Recent): No Current Therapies 05/01/2023 03/11/2024 05/20/2024 AG SPINE COMBINATION Questionnaire GREENLIGHT Completed Date 05/01/2023 Completed Date 05/20/2024 Comments TERRANCE--Pregabalin Questionnaire Opiod Risk Tool Opiod Risk Tool Completed Date 05/01/2023 03/11/2024 Comments Low Risk 0 - Low Risk No question data found. (All drug screens are appropriate unless indicated otherwise) Notable Events During Course of Treatment: Interval History: Overall pain and functional disability since last visit: Better New Complaints since last visit: No PAIN DESCRIPTION: Timing: Intermittent Character: Aching, Primary Location: axial low back Radiation: bilateral buttocks and bilateral proximal lateral hips Exacerbati (more content not included)... [facility] 06-17-2024 History of Present illness Narrative Images from the original note were not included. [facility] Today's Date: 06/17/2024 Name: Luis Angel Aguila : 1955 Purpose: Follow-up Patient Evaluation - This is an established patient, returning today for continued evaluation and management of the chief complaint noted below Chief complaint: hip pain and back pain Referring Clinician: Self Pertinent Past Medical History: Hypertension (HTN), Hyperlipidemia (HLD), COPD , Gastroesophageal Reflux Disease (GERD), Ileus (11/2022), 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 node, OA multiple joints, Nicotine use disorder, Pertinent Past Surgeries: Cervical fusion, Bilat shoulder surgery Plan at last visit: (Seen on 03/11/2024 by Alina Bryson CNP) IMPRESSION: 69 year old male presents with complaint(s) of Low back pain with radicular symptoms. Patient is also suffering from a acute left hip pain due to a recent fall. I reviewed the results of the x-ray and reassess the patient continues to appear to be left greater trochanter bursitis and sending the patient up for an injection to see if that will help with the pain. This was explained to both the patient and his and they appear to understand. Diagnoses: (M70.62) Trochanteric bursitis of left hip (primary encounter diagnosis) (M54.16) Lumbar radiculopathy (M47.816) Lumbar spondylosis (M48.062) Spinal stenosis of lumbar region with neurogenic claudication (M25.552) Pain in left hip PLAN: Luis Angel Aguila would benefit from the following to reach personal goals for decreasing pain, improving function and work participation, and/or improving quality of life: Medications: Requested Prescriptions No prescriptions requested or ordered in this encounter Continue lyrica will increase to tid , 1 in am and 2 at bedtime. Interventional Procedures: Greater Trochanteric Bursal Injection under fluoroscopic guidance LEFT-SIDED at N/A Radio Recorder Needed: Joint Injection - NO (Exception: SI Joint - YES) Anticoagulant - Hold Needed: N/A (Not currently on Anticoagulants) Anticoagulant - Currently Taking: None Allergies (relevant): None Scheduling - Mobility (Can Patient independently transfer on/off an OR or Procedure table?): YES (May schedule at any location) Scheduling - Additional Info: None Studies: X-ray: Hip (Left) reviewed Functional Taoism: Continue home exercises from Chiropractics Referrals: No additional considerations at present Follow-up:2 months Depending on response to the above plan, consider: Right GT bursa injection and/or TPI In terval History: Overall pain and functional disability since last visit: Unchanged New Complaints since last visit: No Pain Description: Timing: Constant Character: Sharp Primary Location: left hip Radiation: left groin Exacerbating factors: getting up from sitting Relieving factors: sitting Interferes with: physical activity The patient reports leg weakness On 05/11/2024 pt had a left GTB CSI reporting 85% relief. Patient stating that his hip is feeling much better. States after the exacerbation from jumping off of a wagon his pain is much better and he is trying to avoid activities that may aggravate him. Patient states he is now complaining of low back pain again. States is not to the severity it was prior to the last injection but he is having this pain. Patient stating he feels the last injection worked much better than the radiofrequency ablation. Patient stating that most of the pain is in his low back not going down his leg. Current Pain Medications: Neuropathics: lyrica NSAIDS: Muscle Relaxants: Topicals: Other Prescription or OTC Pain Medications: tylenol Opioids (when applicable): Anti-depressants or Mood-Stabilizers: None Anti-Coagulants: None Therapies Attended (Current or Most Recent): No Current Therapies 05/01/2023 03/11/2024 05/20/2024 AG SPINE COMBINATION Questionnaire GREENLIGHT Completed Date 05/01/2023 Completed Date 05/20/2024 Comments TERRANCE--Pregabalin Questionnaire Opiod Risk Tool Opiod Risk Tool Completed Date 05/01/2023 03/11/2024 Comments Low Risk 0 - Low Risk No question data found. 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 (All drug screens are appropriate unless indicated otherwise) No table Events During Course of Treatment: History of Present Illness (HPI): 04/29/2023 - Initial HPI (Obtained by Hector Ritchie M.D.). DURATION AND ONSET: The pain complaint has been present for approximately many years. The pain had a gradual onset. The mechanism of injury is unknown. He reports he has had years of low back pain, but that the past 4-5 years, he has had worsening pain. He reports that he was told that radiation may have damaged the lumbar discs. He was 6'2 at one point, now is 5'9. He had radiation therapy for Prostate cancer in 2021, cancer returned, now using Lupron injections. RED FLAG SYMPTOMS: difficulty with bowel or bladder control. Treatment History: PAIN PROCEDURES: DATE PROCEDURE IMPROVEMENT 05/31/2024 L GTB CSI 85% 04/26/2024 ILESI L5-S1 100% 07/16/2023 B/L RFA L4-S1 55% MEDICATIONS Taken TO DATE (for the chief complaint(s)): Neuropathics: Neurontin (Gabapentin) NSAIDS: Mobic (Meloxicam) Muscle Relaxants: None Topicals: None Other Prescription or OTC Pain Medications: Aspirin Opioids: None Data Reviewed Today: Allergies: ALLERGIES Allergen Reactions Morphine Rash, Itching Prednisone Mental Status Change Social History Tobacco Use Smoking status: Every Day Current packs/day: 1.00 Average packs/day: 1 pack/day for 55.0 years (55.0 ttl pk-yrs) Types: Cigarettes Smokeless tobacco: Never Tobacco comments: Pt has cut back to 1/2 pack daily. Vaping Use Vaping status: Never Used Substance Use Topics Alcohol use: Yes Comment: occasionaly Drug use: Never 05/28/2024 06/14/2024 INTAKE PAIN ASSESSMENT Are you having pain associated with your visit today? Yes, Provider notified Yes, Provider notified Pain Scales Verbal (Numeric Rating or Visual Analog Scale) Pain Level 8 4 Pain Location Hip-Right Leg-Left Description Aching;Burning;Pressure;Radiating;[place] p;Shooting;Stabbing;Throbbing Aching Duration Units Years Frequency Continuous Continuous Intervention/Comfort measure Medication -- Comments Really really painful Proxy-reported Compliance: PDMP website checked and validated on 06/17/2024 by Alina Bryson APRN.TOOL GRINDER SET UP OPERATOR GEAR All prescriptions have been APPROPRIATELY filled. No suspicious activity was identified. Tramadol 50mg, #12 (11/14/2022) 05/01/2023 03/11/2024 05/20/2024 AG SPINE COMBINATION Questionnaire GREENLIGHT Completed Date 05/01/2023 Completed Date 05/20/2024 Comments TERRANCE--Pregabalin Questionnaire Opiod Risk Tool Opiod Risk Tool Completed Date 05/01/2023 03/11/2024 Comments Low Risk 0 - Low Risk (All drug screens are appropriate unless indicated otherwise) Risk Assessment: LAST-7: 05/01/2023 LAST - 7 SCORES Score 0 (0-4) minimal anxiety, (5-9) mild anxiety, (10-14) moderate anxiety, (15-21) severe anxiety PHQ-9: 05/01/2023 PHQ-9 Score 1 (0-4) minimal depression, (5-9) mild depression, (10-14) moderate depression, (15-19) moderately severe depression, (20-27) severe depression Opioid Risk Tool: Family History of Substance Abuse: Yes Alcohol: 1 -Female Personal History of Substance Abuse: 0 - No Age between 16-45: 0 - No History of Pre-Adolescence Sexual Abuse: 0 - No Psychological Disease: 0 - No Risk Total: 1 Total Score Risk Category: Low Risk 0-3 (0-3, low risk or no risk; 4-7, moderate risk, 8+, high risk) Diagnostic Studies: Relevant Imagin05/15/2024 1:26 PM - Radiology, [place] In Impression IMPRESSION: Unremarkable appearance of the left hip with no acute fracture or dislocation seen Header Operator: CATRACHO Transcribe Date/Time: May 15 2024 1:24P Dictated by : FERNANDO RIVAS MD This examination was interpreted and the report reviewed and electronically signed by: FERNANDO RIVAS MD on May 15 2024 1:24PM EST Results-Findings * * *Final Report* * * DATE OF EXAM: May 13 2024 10:03AM [id number] - XR HIP 3V PELV+ AP/LAT LT / PROCEDURE REASON: Pain in left hip * * * * Physician Interpretation * * * * XR HIP 3V PELV+ AP/LAT LT 05/13/2024 10:03 AM HISTORY: Pain in left hip TECHNIQUE: 2 view(s) of the left hip and AP view of the pelvis COMPARISON: No prior similar exams are available for comparison RESULT: Bone mineralization/ degenerative changes: Bone density grossly within normal limits. Severe degenerative change in the lower lumbar spine. Alignment of the osseous structures: The alignment appears anatomical without a subluxation or dislocation seen. Fractures: No acute fractures are seen. Soft tissues: No radiopaque foreign bodies are seen. Vascular calcifications are present. MRI Spine Report MRI LUMBAR SPINE WO IVCON Exam End: 05/27/2023 9:29 AM (Final result) Narrative: * * *Final Report* * * DATE OF EXAM: May 27 2023 9:00AM [facility] [id number] - MRI LUMBAR SPINE WO IVCON / PROCEDURE REASON: multiple diagnoses * * * * Physician Interpretation * * * * EXAMINATION: MRI LUMBAR SPINE WO IVCON CLINICAL HISTORY: Chronic bilateral low back pain, unspecified whether sciatica present. Failed NSAIDS for three months. TECHNIQUE: Routine lumbosacral spine MR protocol without gadolinium. MQ: [id number] COMPARISON: None. RESULT: Counting reference: Lumbosacral junction. For the purposes of this report, L4-5 is considered the level of the iliac crest and assume there are 5 lumbar-type vertebrae. Anatomic variant: None. Localizer images: T2 hyperintense presumed renal cysts. Alignment: Levoscoliosis, apex L3-L4. Bone marrow signal/fracture: No evidence of pathologic marrow infiltration. No evidence of prior fracture. Multilevel scattered predominantly type I endplate marrow degenerative signal changes most notably at L1-L2, L4-L5 and L5-S1. Conus: The conus is within normal limits of signal intensity and morphology. Paraspinal soft tissues: Paraspinal soft tissues are within normal limits. Lower thoracic spine: Visualized lower thoracic canal and foramina are patent. L1-L2: Mild spinal canal stenosis secondary disc osteophyte complex. Minimal degenerative facet arthrosis. Mild left and no significant right foraminal stenosis. L2-L3: Mild spinal canal stenosis secondary to right eccentric disc osteophyte complex. Mild to moderate right subarticular recess effacement. Mild degenerative facet arthrosis. Moderate left and mild right foraminal stenosis. L3-L4: Mild spinal canal stenosis secondary disc bulging and dorsal osteophytic endplate spurring. Right subarticular superimposed extrusion with caudal extension effacing the right subarticular zone and contacting/minimally impinging upon the traversing right L4 nerve root. Moderate degenerative facet arthrosis. Moderate right and mild left foraminal stenosis. L4-L5: Mild spinal canal stenosis secondary disc bulging and dorsal osteophytic endplate spurring. Moderate degenerative facet arthrosis. Mild left subarticular recess effacement. Moderate right and mild left foraminal stenosis. L5-S1: Mild spinal canal stenosis secondary disc bulging and dorsal osteophytic endplate spurring. Moderate degenerative facet arthrosis. Severe bilateral foraminal stenosis. Sacrum and iliac wings: Edema in both sacral ala which may be reflective of acute subacute sacral insufficiency fractures. Impression: IMPRESSION: Lumbar spondylosis and scoliosis with multiple levels of mild spinal canal stenosis. Moderate right subarticular recess effacement at L3-L4 secondary to small caudally directed extrusion. No high-grade spinal canal stenosis. Up to severe bilateral foraminal stenosis at L5-S1. Left greater than right sacral edema, suspicious of bilateral acute to subacute sacral insufficiency fractures. Anatomic Lumbar Variant: None. L4-5 is considered the level of the iliac crest and assume there are 5 lumbar-type vertebrae. Header Operator: [facility] Transcribe Date/Time: May 27 2023 9:49A Dictated by : SALAZAR HOFFMAN DO This examination was interpreted and the report reviewed and electronically signed by: SALAZAR HOFFMAN DO on May 27 2023 9:56AM EST X-ray Bilat. Hip / Lumbar 03/2023 RESULT: 5 nonrib-bearing lumbar-type vertebrae. For numbering purposes, L4-5 is at the level of the iliac crest. Severe disc space narrowing and multilevel vacuum phenomenon from L1 through S1. No acute fracture or focal bony abnormality. Degenerative change involving the posterior elements from L4 through S1. Levoscoliosis of 22 degrees as measured from inferior L1 to superior L4. AP pelvis and 2 coned-down views of each hip show mild degenerative change. No significant joint space narrowing. No fracture or focal bony abnormality. Normal mineralization and alignment. SI joints are Unremarkable IMPRESSION: DEGENERATIVE CHANGE AND ALIGNMENT ABNORMALITIES WITHIN THE LUMBAR SPINE DESCRIBED. MILD DEGENERATIVE CHANGE INVOLVING BOTH HIPS. Electrodiagnostic Study (EMG): None Recent Labs: Creatinine Date Value Ref Range Status 06/06/2023 0.84 0.73 - 1.22 mg/dL Final No results found for: EGFR No results found for: PCGLUCOSE Current Medications, Past Medical History, Past Surgical History, Family History, Social History and Review of Systems: On today's date, noted above, I have confirmed and edited as necessary, the PFSH and ROS obtained by others. Physical Exam Vitals reviewed. Constitutional: General: He is not in acute distress. Appearance: He is not ill-appearing. HENT: Head: Normocephalic and atraumatic. Eyes: Conjunctiva/sclera: Conjunctivae normal. Cardiovascular: Pulses: Normal pulses. Pulmonary: Effort: Pulmonary effort is normal. No respiratory distress. Musculoskeletal: Thoracic back: No tenderness or bony tenderness. No scoliosis. Lumbar back: No spasms or tenderness. Decreased range of motion. Positive left straight leg raise test. Negative right straight leg raise test. No scoliosis. Right hip: Tenderness (pain elicited with light palpation to right GT region) present. Decreased range of motion. Left hip: Tenderness and bony tenderness present. Decreased range of motion. Comments: Hip Flexion: Right- 5/5; Left- 5/5 Knee Extension: Right- 5/5; Left- 5/5 Dorsiflexion: Right- 5/5; Left- 5/5 Plantarflexion: Right- 5/5; Left- 5/5 Special Tests- Facet Loading: Right-Positive ; Left Positive SI Compression:Negative ISAAC:Right-Positive; Left Positive Skin: General: Skin is warm and dry. Neurological: Mental Status: He is alert and oriented to person, place, and time. Gait: Gait and tandem walk normal. Deep Tendon Reflexes: Reflexes are normal and symmetric. Reflex Scores: Patellar reflexes are 2+ on the right side and 2+ on the left side. Psychiatric: Mood and Affect: Mood and affect normal. Behavior: Behavior normal. Behavior is cooperative. IMPRESSION: 69 year old male presents with complaint(s) of Low back pain with radicular symptoms. Patient's pain does not appear to be as severe as prior last interlaminar epidural steroid injection however it does appear to be starting to return. I will schedule the patient for a repeat interlaminar epidural steroid injection as he did receive excellent relief from this procedure in the past. Diagnoses: (M48.062) Spinal stenosis of lumbar region with neurogenic claudication (primary encounter diagnosis) (M54.16) Lumbar radiculopathy (M70.62) Trochanteric bursitis of left hip PLAN: Luis Angel Aguila would benefit from the following to reach personal goals for decreasing pain, improving function and work participation, and/or improving quality of life: Medications: Requested Prescriptions No prescriptions requested or ordered in this encounter Continue lyrica will increase to tid , 1 in am and 2 at bedtime. Interventional Procedures: Epidural Steroid Injection - Interlaminar Approach (ILESI) under fluoroscopic guidance NONE at L5-S1 Radio Recorder Needed: Epidural - YES Anticoagulant - Hold Needed: Lumbar Epidural (HOLD) Anticoagulant - Currently Taking: None Allergies (relevant): None Scheduling - Mobility (Can Patient independently transfer on/off an OR or Procedure table?): YES (May schedule at any location) Scheduling - Additional Info: None Studies: X-ray: Hip (Left) reviewed Functional Taoism: Continue home exercises from Chiropractics Referrals: No additional considerations at present Follow-up:2 months Depending on response to the above plan, consider: Right GT bursa injection and/or TPI Attribution: In addition to reviewing the information noted above, some elements copied from my most recent clinical note(s), including the physical exam (completed in entirety today), and the impression and plan sections, have been updated where appropriate. All reflect current medical decision making from today's date. Alina Bryson APRN.TOOL GRINDER SET UP OPERATOR GEAR [facility] Review of Systems Constitutional: Negative for activity change, chills, fever and unexpected weight change. Genitourinary: Negative for difficulty urinating. Musculoskeletal: Positive for arthralgias, back pain, joint swelling, myalgias, neck pain and neck stiffness. Negative for gait problem. Neurological: Positive for weakness. Negative for numbness and headaches. Psychiatric/Behavioral: Negative for dysphoric mood, sleep disturbance and suicidal ideas. The patient is not nervous/anxious. documented in this encounter [facility] 06-17-2024 Note HNO ID: [id number] Author: LIZABETH ARAIZA LPN Service: ? Author Type: LICENSED NURSE Type: Progress Notes Filed: 06/17/2024 12:32 Note Text: Review of Systems Constitutional: Negative for activity change, chills, fever and unexpected weight change. Genitourinary: Negative for difficulty urinating. Musculoskeletal: Positive for arthralgias, back pain, joint swelling, myalgias, neck pain and neck stiffness. Negative for gait problem. Neurological: Positive for weakness. Negative for numbness and headaches. Psychiatric/Behavioral: Negative for dysphoric mood, sleep disturbance and suicidal ideas. The patient is not nervous/anxious. [facility] 06-04-2024 Note Addended by: ALINA BRYSON on: 06/04/2024 04:16 PM Modules accepted: Orders [facility] 06-04-2024 Miscellaneous Notes Addended by: ALINA BRYSON on: 06/04/2024 04:16 PM Modules accepted: Orders Chart reviewed, script sent, pt notified Voicemail received from patient's stating that when patient had an office visit with Alina approximately 2-3 wks ago they discussed increasing his lyrica from one time a day to 3 times a day. states that the medication was to be called into [facility] on [address] in [place].She states that they went to [facility] his medication today but they said they didn't have it.. states he is out of his medication early d/t increasing the dose to 3 times a day. Please advise. Grace Leo LPN documented in this encounter [facility] 06-04-2024 Telephone encounter Note Chart reviewed, script sent, pt notified [facility] 06-04-2024 Telephone encounter Note Voicemail received from patient's stating that when patient had an office visit with Alina approximately 2-3 wks ago they discussed increasing his lyrica from one time a day to 3 times a day. states that the medication was to be called into [facility] on [address] in [place].She states that they went to [facility] his medication today but they said they didn't have it.. states he is out of his medication early d/t increasing the dose to 3 times a day. Please advise. Grace Leo LPN [facility] 05-31-2024 Note HNO ID: [id number] Author: AMADEO YEE MD Service: ? Author Type: Physician Type: Progress Notes Filed: 05/31/2024 13:05 Note Text: [facility] Patient name: Luis Angel Aguila Date of : 1955 Today's date: 05/31/2024 Purpose: Ultrasound-guided injection Diagnosis: (M70.62) Trochanteric bursitis of left hip (primary encounter diagnosis) Procedure: Left Hip/Pelvis [employer] Technician: Amadeo Yee MD Comments: None HPI: Luis Angel Aguila is an 69 year old MALE who presents today, in pain, for the procedure noted above. Review of Systems: Pertinent Positives: MSK: pain in the region being treated Neuro: no weakness or numbness in the region being treated Skin: Negative (No itching) Eyes: Negative (No blurred or double vision) Respiratory: Negative (No Cough, [id number], Dyspnea on exertion, wheezing) Cardiovascular: Negative (No Chest Pain, Tightness, Pressure, Palpitations) Gastrointestinal: Negative (No Abdominal pain, Nausea, Vomiting, Constipation, Diarrhea) Genitourinary: Negative (No dysuria) Hematologic: Negative (No bleeding, bruising) OB: is Denied or Not Applicable Endocrine: Negative (No hot/cold intolerance) Psychiatric: Negative (No depression, anxiety or suicidal ideation) 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) S/P prostatectomy Tobacco use disorder PAST SURGICAL HISTORY Procedure Laterality Date ABDOMINAL SURGERY HX APPENDECTOMY COLONOSCOPY 12/12/2022 repeat 5 years FOOT RIGHT OP SURGERY Right FRACTURE SURGERY REMOVAL OF PROSTATE REPAIR ABDOMINAL HERNIA SHOULDER SURGERY HX Bilateral XR CERVICAL FUSION OR FAMILY HISTORY Problem Relation Age of Onset Lung Cancer Mother Dementia Father other (ETOH) Father Hypertension Brother Aneurysm Maternal Grandmother other (car accident) Maternal Grandfather other (car accident) Paternal Grandfather Social History Tobacco Use Smoking status: Every Day Current packs/day: 1.00 Average packs/day: 1 pack/day for 55.0 years (55.0 ttl pk-yrs) Types: Cigarettes Smokeless tobacco: Never Tobacco comments: Pt has cut back to 1/2 pack daily. Vaping Use Vaping status: Never Used Substance Use Topics Alcohol use: Yes Comment: occasionaly Drug use: Never Current Outpatient Medications on File Prior to Visit Medication Sig pregabalin (LYRICA) 100 mg capsule Take 1 capsule by mouth two times a day for 180 days. albuterol HFA (VENTOLIN HFA) 90 mcg/actuation inhaler Inhale 2 Puffs as instructed every 4 hours as needed for wheezing/shortness of breath. atenolol (TENORMIN) 50 mg tablet Take one tablet daily along with 25 mg tablet to equal 75 mg daily atorvastatin (LIPITOR) 40 mg tablet Take 1 tablet by mouth daily at bedtime. For cholesterol. lisinopril (ZESTRIL) 40 mg tablet Take 1 tablet by mouth once daily. omeprazole (PRILOSEC) 40 mg capsule Take 1 capsule by mouth two times a day. tiotropium-olodaterol (STIOLTO RESPIMAT) 2.5-2.5 mcg/actuation inhaler Inhale 2 Puffs as instructed once daily. famotidine (PEPCID) 40 mg tablet Take 40 mg by mouth once daily. cyclobenzaprine (FLEXERIL) 10 mg tablet Take 1 tablet by mouth as directed. 1/2 to 1 tablet po qhs as needed for spasm acetaminophen (TYLENOL EXTRA STRENGTH) 500 mg tablet Take 1,000 mg by mouth every 8 hours as needed. aspirin, enteric coated (ASPIRIN, ENTERIC COATED) 81 mg EC tablet Take 81 mg by mouth once daily. docusate sodium (STOOL SOFTENER) 100 mg capsule Take 100 mg by mouth twice daily. cholecalciferol (VITAMIN D-3) 50 mcg (2,000 unit) tablet Take 2,000 Units by mouth once daily. beta-carotene,A,-vits C,E/mins (OCUVITE ORAL) Take 1 tablet by mouth once daily. calcium carbonate (CALCIUM 600 ORAL) Take 1 tablet by mouth once daily. Multivitamin capsule Take 1 capsule by mouth once daily. pregabalin (LYRICA) 75 mg capsule Take one pill twice daily (Patient not taking: Reported on 05/20/2024) No current facility-administered medications on file prior to visit. Objective Exam: Vitals: As per nursing documentation Constitutional: Normal Appearance, Oriented to Time, Place and Person Head: No lacerations, no external signs of trauma Eyes: Conjunctiva clear. No discharge from the eyes Cardiovascular: Appears well-perfused Pulmonary: Non-labored respirations Abdominal: Non-distended Skin: No visible rashes or ecchymosis Psychiatric: Mood appropriate for given condition Neurological: Gross movements are limited by pain, but otherwise unremarkable Data Reviewed: Nursing note and vitals reviewed. Additional imaging reviewed as appropriate (more content not included)... [facility] 05-31-2024 History of Present illness Narrative [facility] Patient name: Luis Angel Aguila Date of : 1955 Today's date: 05/31/2024 Purpose: Ultrasound-guided injection Diagnosis: (M70.62) Trochanteric bursitis of left hip (primary encounter diagnosis) Procedure: Left Hip/Pelvis [employer] Technician: Amadeo Yee MD Comments: None HPI: Luis Angel Aguila is an 69 year old MALE who presents today, in pain, for the procedure noted above. Review of Systems: Pertinent Positives: MSK: pain in the region being treated Neuro: no weakness or numbness in the region being treated Skin: Negative (No itching) Eyes: Negative (No blurred or double vision) Respiratory: Negative (No Cough, [id number], Dyspnea on exertion, wheezing) Cardiovascular: Negative (No Chest Pain, Tightness, Pressure, Palpitations) Gastrointestinal: Negative (No Abdominal pain, Nausea, Vomiting, Constipation, Diarrhea) Genitourinary: Negative (No dysuria) Hematologic: Negative (No bleeding, bruising) OB: is Denied or Not Applicable Endocrine: Negative (No hot/cold intolerance) Psychiatric: Negative (No depression, anxiety or suicidal ideation) 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) S/P prostatectomy Tobacco use disorder PAST SURGICAL HISTORY Procedure Laterality Date ABDOMINAL SURGERY HX APPENDECTOMY COLONOSCOPY 12/12/2022 repeat 5 years FOOT RIGHT OP SURGERY Right FRACTURE SURGERY REMOVAL OF PROSTATE REPAIR ABDOMINAL HERNIA SHOULDER SURGERY HX Bilateral XR CERVICAL FUSION OR FAMILY HISTORY Problem Relation Age of Onset Lung Cancer Mother Dementia Father other (ETOH) Father Hypertension Brother Aneurysm Maternal Grandmother other (car accident) Maternal Grandfather other (car accident) Paternal Grandfather Social History Tobacco Use Smoking status: Every Day Current packs/day: 1.00 Average packs/day: 1 pack/day for 55.0 years (55.0 ttl pk-yrs) Types: Cigarettes Smokeless tobacco: Never Tobacco comments: Pt has cut back to 1/2 pack daily. Vaping Use Vaping status: Never Used Substance Use Topics Alcohol use: Yes Comment: occasionaly Drug use: Never Current Outpatient Medications on File Prior to Visit Medication Sig pregabalin (LYRICA) 100 mg capsule Take 1 capsule by mouth two times a day for 180 days. albuterol HFA (VENTOLIN HFA) 90 mcg/actuation inhaler Inhale 2 Puffs as instructed every 4 hours as needed for wheezing/shortness of breath. atenolol (TENORMIN) 50 mg tablet Take one tablet daily along with 25 mg tablet to equal 75 mg daily atorvastatin (LIPITOR) 40 mg tablet Take 1 tablet by mouth daily at bedtime. For cholesterol. lisinopril (ZESTRIL) 40 mg tablet Take 1 tablet by mouth once daily. omeprazole (PRILOSEC) 40 mg capsule Take 1 capsule by mouth two times a day. tiotropium-olodaterol (STIOLTO RESPIMAT) 2.5-2.5 mcg/actuation inhaler Inhale 2 Puffs as instructed once daily. famotidine (PEPCID) 40 mg tablet Take 40 mg by mouth once daily. cyclobenzaprine (FLEXERIL) 10 mg tablet Take 1 tablet by mouth as directed. 1/2 to 1 tablet po qhs as needed for spasm acetaminophen (TYLENOL EXTRA STRENGTH) 500 mg tablet Take 1,000 mg by mouth every 8 hours as needed. aspirin, enteric coated (ASPIRIN, ENTERIC COATED) 81 mg EC tablet Take 81 mg by mouth once daily. docusate sodium (STOOL SOFTENER) 100 mg capsule Take 100 mg by mouth twice daily. cholecalciferol (VITAMIN D-3) 50 mcg (2,000 unit) tablet Take 2,000 Units by mouth once daily. beta-carotene,A,-vits C,E/mins (OCUVITE ORAL) Take 1 tablet by mouth once daily. calcium carbonate (CALCIUM 600 ORAL) Take 1 tablet by mouth once daily. Multivitamin capsule Take 1 capsule by mouth once daily. pregabalin (LYRICA) 75 mg capsule Take one pill twice daily (Patient not taking: Reported on 05/20/2024) No current facility-administered medications on file prior to visit. Objective Exam: Vitals: As per nursing documentation Constitutional: Normal Appearance, Oriented to Time, Place and Person Head: No lacerations, no external signs of trauma Eyes: Conjunctiva clear. No discharge from the eyes Cardiovascular: Appears well-perfused Pulmonary: Non-labored respirations Abdominal: Non-distended Skin: No visible rashes or ecchymosis Psychiatric: Mood appropriate for given condition Neurological: Gross movements are limited by pain, but otherwise unremarkable Data Reviewed: Nursing note and vitals reviewed. Additional imaging reviewed as appropriate Assessment and Plan: As noted above [place] protocol documentation / Pre-Procedure Checklist: Consent: Obtained in writing prior to procedure I had a nice discussion with the patient today about their current pain and the pathology that could be causing it We discussed different treatment options, including risks, benefits and alternatives. We agreed to proceed as previously discussed, or the plan was modified in accordance with the comments noted above Unless stated otherwise in the procedure note, the risks include but are not limited to infection, allergic reaction, increased pain, lack of therapeutic benefit, steroid reaction, nerve damage, paralysis, stroke, epidural hematoma, syncope, headache, respiratory or cardiac arrest, pneumothorax, and scar formation Once the plan was agreed upon, the patient gave written consent to proceed and was transported into the procedure room Surgical/Procedure pause or Time Out : Time Out was led by the physician in the procedure room, with the patient and all staff present and participating The following information was verified during the Time Out process: Patient name, patient date of , procedure site (marked), laterality, anticoagulants and allergies ID verified by two sources: Name and Site(s) marked: yes Position: as per procedure note Consent: obtained verbally prior to procedure Allergies reviewed and verified with patient: yes Recent History and Physical: available Relevant images: available Surgical/Procedure pause: yes Other pre-procedural information: given Patient concurs: yes Team present and concurs: yes Static views were obtained using a 6-13 Hz linear probe After identifying the region mentioned above, the patient was positioned Right Lateral Decubitus. The area was prepped in aseptic fashion with Chloraprep. Doppler imaging was utilized to verify no major vessels in the anticipated needle trajectory. Using a 27 gauge, 1.5 inch needle, 1cc of 1% Lidocaine was injected beneath the skin, and a wheal was raised. Subsequently, at this site, a 22gauge, 110mm SonoTAP needle was directed into the above-mentioned target area utilizing real-time ultrasound guidance. The injection was completed under real-time ultrasound guidance, with the following medication injected slowly and with consistent pressure: 1cc of Depo-medrol (40mg/cc) and 3cc of 2% Lidocaine. The injected medication was visualized in its intended position. Where appropriate, there was distention of the involved joint and/or bursa. The needle was then removed. The remainder of the single use vials were wasted. The patient tolerated the procedure without difficulty and was instructed on post-injection care. Pre- and post-injection pictures, as well as pictures of any relevant findings, were obtained and saved for purposes of documentation. Patient was advised to watch for any signs of infection in the area of the injection (redness, streaky appearance of skin, etc.) and call the office immediately for treatment if those symptoms develop. The patient was instructed to follow-up with the requesting physician. Amadeo Yee MD Pain Management [facility] Order has been placed in the patient's chart with the following parameters for discharge from the physician: Patient is alert and oriented Vitals: Diastolic/Systolic +/- 20mmHg Respirations: 12-18 Pulse: 60-100 SpO2 is greater than or equal to 90% Patient has no nausea or vomiting Patient has no dizziness Pain level is +/- 2 from initial evaluation Dressing, dry and intact with no evidence of bleeding Criteria has been met, patient is okay to be discharged per the physician. Physician has gone in and evaluated the patient. Dressing dry and intact. No drainage noted. The patient denies nausea, numbness, tingling, weakness, shortness of breath, dizziness, or headache. Pain level 0/10. Vital signs within normal limits. Patient denied needing walked out by clinical staff and denied needing a wheelchair. Patient given discharge instructions and sent to transportation via ambulatory method. Patient left in good condition. Procedure to be performed: LEFT GREATER TROCHANTER BURSA INJECTION Patient was wheeled on stretcher from pre op bay to procedure room and assisted onto the procedure tablePatient s procedure was performed in an [facility] Procedure room. Pause completed at each level by provider to verify correct level and laterality placement Pressure was applied to patient s injection site(s) and bleeding was minimal. Patient had no complaint of shortness of breath, dizziness, headache, numbness, tingling, weakness or complications from procedure. Patient was assisted from the procedure table onto the stretcher and wheeled into a post op bay. Patient was advised a clinician will be to obtain another set of vitals. Time Out: 1202 Confirmed patient name, date of , procedure site, laterality, and allergies Procedure Start: 1205 Procedure End: 1208 Radio Recorder's Name: Silvia Are you on a blood thinner: n If yes, is a hold required: n Last dose of blood thinner: n INR Result today: n Do you require a Lovenox bridge:n Are you a diabetic:n Are you/or could you be : n/a Are you taking Xanax for the procedure: n Are you currently on a steroid? n Are you currently on an antibiotic: n Review of Systems Constitutional: Positive for activity change. Negative for chills, fever and unexpected weight change. Genitourinary: Negative for difficulty urinating. Musculoskeletal: Positive for arthralgias, back pain, gait problem and myalgias. Negative for joint swelling, neck pain and neck stiffness. Neurological: Positive for weakness and numbness. Negative for headaches. Psychiatric/Behavioral: Positive for sleep disturbance. Negative for dysphoric mood and suicidal ideas. The patient is not nervous/anxious. documented in this encounter [facility] 05-31-2024 Note HNO ID: [id number] Author: KIKE JAUREGUI LPN Service: ? Author Type: LICENSED NURSE Type: Progress Notes Filed: 05/31/2024 13:05 Note Text: Order has been placed in the patient's chart with the following parameters for discharge from the physician: Patient is alert and oriented Vitals: Diastolic/Systolic +/- 20mmHg Respirations: 12-18 Pulse: 60-100 SpO2 is greater than or equal to 90% Patient has no nausea or vomiting Patient has no dizziness Pain level is +/- 2 from initial evaluation Dressing, dry and intact with no evidence of bleeding Criteria has been met, patient is okay to be discharged per the physician. Physician has gone in and evaluated the patient. Dressing dry and intact. No drainage noted. The patient denies nausea, numbness, tingling, weakness, shortness of breath, dizziness, or headache. Pain level 0/10. Vital signs within normal limits. Patient denied needing walked out by clinical staff and denied needing a wheelchair. Patient given discharge instructions and sent to transportation via ambulatory method. Patient left in good condition. [facility] 05-31-2024 Note HNO ID: [id number] Author: LEO STANLEY LPN Service: ? Author Type: LICENSED NURSE Type: Progress Notes Filed: 05/31/2024 13:05 Note Text: Procedure to be performed: LEFT GREATER TROCHANTER BURSA INJECTION Patient was wheeled on stretcher from pre op bay to procedure room and assisted onto the procedure tablePatient?s procedure was performed in an [facility] Procedure room. Pause completed at each level by provider to verify correct level and laterality placement Pressure was applied to patient?s injection site(s) and bleeding was minimal. Patient had no complaint of shortness of breath, dizziness, headache, numbness, tingling, weakness or complications from procedure. Patient was assisted from the procedure table onto the stretcher and wheeled into a post op bay. Patient was advised a clinician will be to obtain another set of vitals. Time Out: 1202 Confirmed patient name, date of , procedure site, laterality, and allergies Procedure Start: 1205 Procedure End: 1208 [facility] 05-31-2024 Instructions Lizabeth Araiza LPN - 05/31/2024 11:20 AM EST PPROCEDURE DISCHARGE INSTRUCTIONS 05/31/2024 Luis Angel Aguila 1955 Physician: Amadeo Yee MD Procedure: Other: Greater Trochanter Injection Post Procedure Instructions: If sedation not given, no driving for 3 hours after the procedure., Rest the day of the procedure., You may resume normal activities the day after the procedure, as tolerated., Pain should gradually subside over the next 2-3 weeks., Avoid movements that may aggravate pain., Apply cold compresses to injection site if needed., If medically acceptable, take over the counter anti-inflammatories such as ibuprofen or Aleve if needed for post procedure discomfort., and No hot baths, hot tubs or hot compresses for 24 hours. If you have any of the following signs or symptoms, please call our office at Fever and/or chills Swelling and/or drainage from injection site New pain that is different than your normal pain (other than soreness at the site of the procedure) Stiff neck Shortness of breath Severe increase in pain Motor dysfunctions, such as difficulty walking, bowel or bladder dysfunction and/or incontinence Headache that is severe, light sensitive or develops when changing positions (positional headache) Nausea and/or vomiting accompanied by headache that started 24-48 hours after the procedure If you have any emergent concerns, please call 911 or go to your local emergency room. Please also contact our office to let us know you will be seeking emergency care and why. documented in this encounter [facility] 05-31-2024 Note HNO ID: [id number] Author: GRACE LEO LPN Service: ? Author Type: LICENSED NURSE Type: Progress Notes Filed: 05/31/2024 13:05 Note Text: Radio Recorder's Name: Silvia Are you on a blood thinner: n If yes, is a hold required: n Last dose of blood thinner: n INR Result today: n Do you require a Lovenox bridge:n Are you a diabetic:n Are you/or could you be : n/a Are you taking Xanax for the procedure: n Are you currently on a steroid? n Are you currently on an antibiotic: n Review of Systems Constitutional: Positive for activity change. Negative for chills, fever and unexpected weight change. Genitourinary: Negative for difficulty urinating. Musculoskeletal: Positive for arthralgias, back pain, gait problem and myalgias. Negative for joint swelling, neck pain and neck stiffness. Neurological: Positive for weakness and numbness. Negative for headaches. Psychiatric/Behavioral: Positive for sleep disturbance. Negative for dysphoric mood and suicidal ideas. The patient is not nervous/anxious. [facility] 05-20-2024 Telephone encounter Note Procedure(s) being scheduled: Left GTB 1.Are you diabetic No 2. Are you on any blood thinners? No 3. Are you taking any aspirin? Yes. Please list the current medications being prescribed 81mg. 4. Are you currently taking any antibiotics? No 5. Do you have any allergies to latex? No 6. Do you have any allergies to seafood or shellfish? No 7. Do you have any allergies to x-ray dye? No 8. Does this procedure require a delivery route driver? No 9. Were the pre-procedure instructions explained and provided to the patient? Yes 10. Do you have a pacemaker? No 11. Do you have an internal stimulator of any kind? Yes If yes, please bring the remote with you to your procedure visit. Dominic Yuan [facility] 05-20-2024 Miscellaneous Notes Procedure(s) being scheduled: Left GTB 1.Are you diabetic No 2. Are you on any blood thinners? No 3. Are you taking any aspirin? Yes. Please list the current medications being prescribed 81mg. 4. Are you currently taking any antibiotics? No 5. Do you have any allergies to latex? No 6. Do you have any allergies to seafood or shellfish? No 7. Do you have any allergies to x-ray dye? No 8. Does this procedure require a delivery route driver? No 9. Were the pre-procedure instructions explained and provided to the patient? Yes 10. Do you have a pacemaker? No 11. Do you have an internal stimulator of any kind? Yes If yes, please bring the remote with you to your procedure visit. Dominic Yuan documented in this encounter [facility] 05-20-2024 Note HNO ID: [id number] Author: ALINA BRYSON APRN.JAMES Service: ? Author Type: Nurse Practitioner Type: Progress Notes Filed: 05/20/2024 16:31 Note Text: [facility] Today's Date: 05/20/2024 Name: Luis Angel Aguila : 1955 Purpose: Follow-up Patient Evaluation - This is an established patient, returning today for continued evaluation and management of the chief complaint noted below Chief complaint: hip pain and back pain Referring Clinician: Self Pertinent Past Medical History: Hypertension (HTN), Hyperlipidemia (HLD), COPD , Gastroesophageal Reflux Disease (GERD), Ileus (11/2022), 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 node, OA multiple joints, Nicotine use disorder, Pertinent Past Surgeries: Cervical fusion, Bilat shoulder surgery Plan at last visit: (Seen on 03/11/2024 by Alina Bryson CNP) IMPRESSION: 69 year old male presents with complaint(s) of Low back pain with radicular symptoms. Patient is also suffering from a acute left hip pain due to a recent fall. I ordered an x-ray of his left hip we will give him oral steroids short-term to see if this will help with the pain. In the meantime his lower back is feeling much better and had been since the injection. Will repeat a transforaminal epidural injection if needed in the future. Will also continue Lyrica as patient feels it is beneficial. Diagnoses: (M48.062) Spinal stenosis of lumbar region with neurogenic claudication (primary encounter diagnosis) (M54.16) Lumbar radiculopathy (M47.816) Lumbar spondylosis (M25.552) Pain in left hip (M16.0) Primary osteoarthritis of both hips PLAN: Luis Angel Aguila would benefit from the following to reach personal goals for decreasing pain, improving function and work participation, and/or improving quality of life: Medications: Requested Prescriptions Signed Prescriptions Disp Refills pregabalin (LYRICA) 100 mg capsule 180 capsule 1 Sig: Take 1 capsule by mouth two times a day for 180 days. methylPREDNISolone (MEDROL, SWEETIE,) 4 mg Dose-Pack 21 tablet 0 Sig: As pkg directs Interventional Procedures: none Studies: X-ray: Hip (Left) Functional Taoism: Continue home exercises from Chiropractics Referrals: No additional considerations at present Follow-up:2 months Depending on response to the above plan, consider: Right GT bursa injection and/or TPI Interval History: Overall pain and functional disability since last visit: Unchanged New Complaints since last visit: No Pain Description: Timing: Constant Character: Sharp Primary Location: left hip Radiation: left groin Exacerbating factors: getting up from sitting Relieving factors: sitting Interferes with: physical activity The patient reports leg weakness Patient is here an x-ray of his left hip done. Patient has chronic back pain that was managed after having an injection. Patient fell on the ice a few weeks ago and we obtained an x-ray of the left hip. Patient stating he continues to have left hip pain with pain into his groin. Patient is here to see what could be done to help with this pain and to see the results of the left hip x-ray. Current Pain Medications: Neuropathics: lyrica NSAIDS: Muscle Relaxants: Topicals: Other Prescription or OTC Pain Medications: tylenol Opioids (when applicable): Anti-depressants or Mood-Stabilizers: None Anti-Coagulants: None Therapies Attended (Current or Most Recent): No Current Therapies 05/01/2023 03/11/2024 05/20/2024 AG SPINE COMBINATION Questionnaire GREENLIGHT Completed Date 05/01/2023 Completed Date 05/20/2024 Comments TERRANCE--Pregabalin Questionnaire Opiod Risk Tool Opiod Risk Tool Completed Date 05/01/2023 03/11/2024 Comments Low Risk 0 - Low Risk Completed Date 05/20/2024 Comments TERRANCE--Pregabalin (All drug screens are appropriate unless indicated otherwise) Notable Events During Course of Treatment: Interval History: Overall pain and functional disability since last visit: Better New Complaints since last visit: No PAIN DESCRIPTION: Timing: Intermittent Character: Aching, Primary Location: axial low back Radiation: bilateral buttocks and bilateral proximal lateral hips Exacerbating factors: Standing, Walking more than 2 minutes 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 Patient stating he was doing great. He was doing all the activities he normally does without having pain. Patient states last week he was loading a truck and he fell on ice and twisted. States he has had pain cornel (more content not included)... [facility] 05-20-2024 History of Present illness Narrative Images from the original note were not included. [facility] Today's Date: 05/20/2024 Name: Luis Angel Aguila : 1955 Purpose: Follow-up Patient Evaluation - This is an established patient, returning today for continued evaluation and management of the chief complaint noted below Chief complaint: hip pain and back pain Referring Clinician: Self Pertinent Past Medical History: Hypertension (HTN), Hyperlipidemia (HLD), COPD , Gastroesophageal Reflux Disease (GERD), Ileus (11/2022), 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 node, OA multiple joints, Nicotine use disorder, Pertinent Past Surgeries: Cervical fusion, Bilat shoulder surgery Plan at last visit: (Seen on 03/11/2024 by Alina Bryson CNP) IMPRESSION: 69 year old male presents with complaint(s) of Low back pain with radicular symptoms. Patient is also suffering from a acute left hip pain due to a recent fall. I ordered an x-ray of his left hip we will give him oral steroids short-term to see if this will help with the pain. In the meantime his lower back is feeling much better and had been since the injection. Will repeat a transforaminal epidural injection if needed in the future. Will also continue Lyrica as patient feels it is beneficial. Diagnoses: (M48.062) Spinal stenosis of lumbar region with neurogenic claudication (primary encounter diagnosis) (M54.16) Lumbar radiculopathy (M47.816) Lumbar spondylosis (M25.552) Pain in left hip (M16.0) Primary osteoarthritis of both hips PLAN: LuisA ngel Aguila would benefit from the following to reach personal goals for decreasing pain, improving function and work participation, and/or improving quality of life: Medications: Requested Prescriptions Signed Prescriptions Disp Refills pregabalin (LYRICA) 100 mg capsule 180 capsule 1 Sig: Take 1 capsule by mouth two times a day for 180 days. methylPREDNISolone (MEDROL, SWEETIE,) 4 mg Dose-Pack 21 tablet 0 Sig: As pkg directs Interventional Procedures: none Studies: X-ray: Hip (Left) Functional Taoism: Continue home exercises from Chiropractics Referrals: No additional considerations at present Follow-up:2 months Depending on response to the above plan, consider: Right GT bursa injection and/or TPI In terval History: Overall pain and functional disability since last visit: Unchanged New Complaints since last visit: No Pain Description: Timing: Constant Character: Sharp Primary Location: left hip Radiation: left groin Exacerbating factors: getting up from sitting Relieving factors: sitting Interferes with: physical activity The patient reports leg weakness Patient is here an x-ray of his left hip done. Patient has chronic back pain that was managed after having an injection. Patient fell on the ice a few weeks ago and we obtained an x-ray of the left hip. Patient stating he continues to have left hip pain with pain into his groin. Patient is here to see what could be done to help with this pain and to see the results of the left hip x-ray. Current Pain Medications: Neuropathics: lyrica NSAIDS: Muscle Relaxants: Topicals: Other Prescription or OTC Pain Medications: tylenol Opioids (when applicable): Anti-depressants or Mood-Stabilizers: None Anti-Coagulants: None Therapies Attended (Current or Most Recent): No Current Therapies 05/01/2023 03/11/2024 05/20/2024 AG SPINE COMBINATION Questionnaire GREENLIGHT Completed Date 05/01/2023 Completed Date 05/20/2024 Comments TERRANCE--Pregabalin Questionnaire Opiod Risk Tool Opiod Risk Tool Completed Date 05/01/2023 03/11/2024 Comments Low Risk 0 - Low Risk Completed Date 05/20/2024 Comments TERRANCE--Pregabalin (All drug screens are appropriate unless indicated otherwise) No table Events During Course of Treatment: Interval History: Overall pain and functional disability since last visit: Better New Complaints since last visit: No PAIN DESCRIPTION: Timing: Intermittent Character: Aching, Primary Location: axial low back Radiation: bilateral buttocks and bilateral proximal lateral hips Exacerbating factors: Standing, Walking more than 2 minutes 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 Patient stating he was doing great. He was doing all the activities he normally does without having pain. Patient states last week he was loading a truck and he fell on ice and twisted. States he has had pain ever since and his left hip. Patient has had left hip x-rays in the past. Patient stating that his left hip pain is worse with ambulation. States pretty much the minute he stands up the pain increases in his hip stating the pain starts in the back of the hip and will go strongly into his groin and down the front of his thigh. This is all on the left side. Patient stating his back is feeling much better. 05/01/2023 03/11/2024 05/20/2024 AG SPINE COMBINATION Questionnaire GREENLIGHT Completed Date 05/01/2023 Completed Date 05/20/2024 Comments TERRANCE--Pregabalin Questionnaire Opiod Risk Tool Opiod Risk Tool Completed Date 05/01/2023 03/11/2024 Comments Low Risk 0 - Low Risk Completed Date 05/20/2024 Comments TERRANCE--Pregabalin (All drug screens are appropriate unless indicated otherwise) No table Events During Course of Treatment: History of Present Illness (HPI): 04/29/2023 - Initial HPI (Obtained by Hector Ritchie M.D.). DURATION AND ONSET: The pain complaint has been present for approximately many years. The pain had a gradual onset. The mechanism of injury is unknown. He reports he has had years of low back pain, but that the past 4-5 years, he has had worsening pain. He reports that he was told that radiation may have damaged the lumbar discs. He was 6'2 at one point, now is 5'9. He had radiation therapy for Prostate cancer in 2021, cancer returned, now using Lupron injections. RED FLAG SYMPTOMS: difficulty with bowel or bladder control. Treatment History: PAIN PROCEDURES: DATE PROCEDURE IMPROVEMENT 04/26/2024 TFESI L5-S1 100% 07/16/2023 B/L RFA L4-S1 To soon to tell. MEDICATIONS Taken TO DATE (for the chief complaint(s)): Neuropathics: Neurontin (Gabapentin) NSAIDS: Mobic (Meloxicam) Muscle Relaxants: None Topicals: None Other Prescription or OTC Pain Medications: Aspirin Opioids: None Data Reviewed Today: Allergies: ALLERGIES Allergen Reactions Morphine Rash, Itching Prednisone Mental Status Change Social History Tobacco Use Smoking status: Every Day Current packs/day: 1.00 Average packs/day: 1 pack/day for 55.0 years (55.0 ttl pk-yrs) Types: Cigarettes Smokeless tobacco: Never Tobacco comments: Pt has cut back to 1/2 pack daily. Vaping Use Vaping status: Never Used Substance Use Topics Alcohol use: Yes Comment: occasionaly Drug use: Never 05/07/2024 05/18/2024 INTAKE PAIN ASSESSMENT Are you having pain associated with your visit today? 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 No suspicious activity was identified. Tramadol 50mg, #12 (11/14/2022) 05/01/2023 03/11/2024 05/20/2024 AG SPINE COMBINATION Questionnaire GREENLIGHT Completed Date 05/01/2023 Completed Date 05/20/2024 Comments TERRANCE--Pregabalin Questionnaire Opiod Risk Tool Opiod Risk Tool Completed Date 05/01/2023 03/11/2024 Comments Low Risk 0 - Low Risk (All drug screens are appropriate unless indicated otherwise) Risk Assessment: LAST-7: 05/01/2023 LAST - 7 SCORES Score 0 (0-4) minimal anxiety, (5-9) mild anxiety, (10-14) moderate anxiety, (15-21) severe anxiety PHQ-9: 05/01/2023 PHQ-9 Score 1 (0-4) minimal depression, (5-9) mild depression, (10-14) moderate depression, (15-19) moderately severe depression, (20-27) severe depression Opioid Risk Tool: Family History of Substance Abuse: Yes Alcohol: 1 -Female Personal History of Substance Abuse: 0 - No Age between 16-45: 0 - No History of Pre-Adolescence Sexual Abuse: 0 - No Psychological Disease: 0 - No Risk Total: 1 Total Score Risk Category: Low Risk 0-3 (0-3, low risk or no risk; 4-7, moderate risk, 8+, high risk) Diagnostic Studies: Relevant Imagin05/15/2024 1:26 PM - Radiology, [place] In Impression IMPRESSION: Unremarkable appearance of the left hip with no acute fracture or dislocation seen Header Operator: CATRACHO Transcribe Date/Time: May 15 2024 1:24P Dictated by : FERNANDO RIVAS MD This examination was interpreted and the report reviewed and electronically signed by: FERNANDO RIVAS MD on May 15 2024 1:24PM EST Results-Findings * * *Final Report* * * DATE OF EXAM: May 13 2024 10:03AM [id number] - XR HIP 3V PELV+ AP/LAT LT / PROCEDURE REASON: Pain in left hip * * * * Physician Interpretation * * * * XR HIP 3V PELV+ AP/LAT LT 05/13/2024 10:03 AM HISTORY: Pain in left hip TECHNIQUE: 2 view(s) of the left hip and AP view of the pelvis COMPARISON: No prior similar exams are available for comparison RESULT: Bone mineralization/ degenerative changes: Bone density grossly within normal limits. Severe degenerative change in the lower lumbar spine. Alignment of the osseous structures: The alignment appears anatomical without a subluxation or dislocation seen. Fractures: No acute fractures are seen. Soft tissues: No radiopaque foreign bodies are seen. Vascular calcifications are present. MRI Spine Report MRI LUMBAR SPINE WO IVCON Exam End: 05/27/2023 9:29 AM (Final result) Narrative: * * *Final Report* * * DATE OF EXAM: May 27 2023 9:00AM [id number] - MRI LUMBAR SPINE WO IVCON / PROCEDURE REASON: multiple diagnoses * * * * Physician Interpretation * * * * EXAMINATION: MRI LUMBAR SPINE WO IVCON CLINICAL HISTORY: Chronic bilateral low back pain, unspecified whether sciatica present. Failed NSAIDS for three months. TECHNIQUE: Routine lumbosacral spine MR protocol without gadolinium. MQ: [id number] COMPARISON: None. RESULT: Counting reference: Lumbosacral junction. For the purposes of this report, L4-5 is considered the level of the iliac crest and assume there are 5 lumbar-type vertebrae. Anatomic variant: None. Localizer images: T2 hyperintense presumed renal cysts. Alignment: Levoscoliosis, apex L3-L4. Bone marrow signal/fracture: No evidence of pathologic marrow infiltration. No evidence of prior fracture. Multilevel scattered predominantly type I endplate marrow degenerative signal changes most notably at L1-L2, L4-L5 and L5-S1. Conus: The conus is within normal limits of signal intensity and morphology. Paraspinal soft tissues: Paraspinal soft tissues are within normal limits. Lower thoracic spine: Visualized lower thoracic canal and foramina are patent. L1-L2: Mild spinal canal stenosis secondary disc osteophyte complex. Minimal degenerative facet arthrosis. Mild left and no significant right foraminal stenosis. L2-L3: Mild spinal canal stenosis secondary to right eccentric disc osteophyte complex. Mild to moderate right subarticular recess effacement. Mild degenerative facet arthrosis. Moderate left and mild right foraminal stenosis. L3-L4: Mild spinal canal stenosis secondary disc bulging and dorsal osteophytic endplate spurring. Right subarticular superimposed extrusion with caudal extension effacing the right subarticular zone and contacting/minimally impinging upon the traversing right L4 nerve root. Moderate degenerative facet arthrosis. Moderate right and mild left foraminal stenosis. L4-L5: Mild spinal canal stenosis secondary disc bulging and dorsal osteophytic endplate spurring. Moderate degenerative facet arthrosis. Mild left subarticular recess effacement. Moderate right and mild left foraminal stenosis. L5-S1: Mild spinal canal stenosis secondary disc bulging and dorsal osteophytic endplate spurring. Moderate degenerative facet arthrosis. Severe bilateral foraminal stenosis. Sacrum and iliac wings: Edema in both sacral ala which may be reflective of acute subacute sacral insufficiency fractures. Impression: IMPRESSION: Lumbar spondylosis and scoliosis with multiple levels of mild spinal canal stenosis. Moderate right subarticular recess effacement at L3-L4 secondary to small caudally directed extrusion. No high-grade spinal canal stenosis. Up to severe bilateral foraminal stenosis at L5-S1. Left greater than right sacral edema, suspicious of bilateral acute to subacute sacral insufficiency fractures. Anatomic Lumbar Variant: None. L4-5 is considered the level of the iliac crest and assume there are 5 lumbar-type vertebrae. Header Operator: [facility] Transcribe Date/Time: May 27 2023 9:49A Dictated by : SALAZAR HOFFMAN DO This examination was interpreted and the report reviewed and electronically signed by: SALAZAR HOFFMAN DO on May 27 2023 9:56AM EST X-ray Bilat. Hip / Lumbar 03/2023 RESULT: 5 nonrib-bearing lumbar-type vertebrae. For numbering purposes, L4-5 is at the level of the iliac crest. Severe disc space narrowing and multilevel vacuum phenomenon from L1 through S1. No acute fracture or focal bony abnormality. Degenerative change involving the posterior elements from L4 through S1. Levoscoliosis of 22 degrees as measured from inferior L1 to superior L4. AP pelvis and 2 coned-down views of each hip show mild degenerative change. No significant joint space narrowing. No fracture or focal bony abnormality. Normal mineralization and alignment. SI joints are Unremarkable IMPRESSION: DEGENERATIVE CHANGE AND ALIGNMENT ABNORMALITIES WITHIN THE LUMBAR SPINE DESCRIBED. MILD DEGENERATIVE CHANGE INVOLVING BOTH HIPS. Electrodiagnostic Study (EMG): None Recent Labs: Creatinine Date Value Ref Range Status 06/06/2023 0.84 0.73 - 1.22 mg/dL Final No results found for: EGFR No results found for: PCGLUCOSE Current Medications, Past Medical History, Past Surgical History, Family History, Social History and Review of Systems: On today's date, noted above, I have confirmed and edited as necessary, the PFSH and ROS obtained by others. Physical Exam Vitals reviewed. Constitutional: General: He is not in acute distress. Appearance: He is not ill-appearing. HENT: Head: Normocephalic and atraumatic. Eyes: Conjunctiva/sclera: Conjunctivae normal. Cardiovascular: Pulses: Normal pulses. Pulmonary: Effort: Pulmonary effort is normal. No respiratory distress. Musculoskeletal: Thoracic back: No tenderness or bony tenderness. No scoliosis. Lumbar back: No spasms or tenderness. Decreased range of motion. Positive left straight leg raise test. Negative right straight leg raise test. No scoliosis. Right hip: Tenderness (pain elicited with light palpation to right GT region) present. Decreased range of motion. Left hip: Tenderness and bony tenderness present. Decreased range of motion. Comments: Hip Flexion: Right- 5/5; Left- 5/5 Knee Extension: Right- 5/5; Left- 5/5 Dorsiflexion: Right- 5/5; Left- 5/5 Plantarflexion: Right- 5/5; Left- 5/5 Special Tests- Facet Loading: Right-Positive ; Left Positive SI Compression:Negative ISAAC:Right-Positive; Left Positive Skin: General: Skin is warm and dry. Neurological: Mental Status: He is alert and oriented to person, place, and time. Gait: Gait and tandem walk normal. Deep Tendon Reflexes: Reflexes are normal and symmetric. Reflex Scores: Patellar reflexes are 2+ on the right side and 2+ on the left side. Psychiatric: Mood and Affect: Mood and affect normal. Behavior: Behavior normal. Behavior is cooperative. IMPRESSION: 69 year old male presents with complaint(s) of Low back pain with radicular symptoms. Patient is also suffering from a acute left hip pain due to a recent fall. I reviewed the results of the x-ray and reassess the patient continues to appear to be left greater trochanter bursitis and sending the patient up for an injection to see if that will help with the pain. This was explained to both the patient and his and they appear to understand. Diagnoses: (M70.62) Trochanteric bursitis of left hip (primary encounter diagnosis) (M54.16) Lumbar radiculopathy (M47.816) Lumbar spondylosis (M48.062) Spinal stenosis of lumbar region with neurogenic claudication (M25.552) Pain in left hip PLAN: Luis Angel Aguila would benefit from the following to reach personal goals for decreasing pain, improving function and work participation, and/or improving quality of life: Medications: Requested Prescriptions No prescriptions requested or ordered in this encounter Continue lyrica will increase to tid , 1 in am and 2 at bedtime. Interventional Procedures: Greater Trochanteric Bursal Injection under fluoroscopic guidance LEFT-SIDED at N/A Radio Recorder Needed: Joint Injection - NO (Exception: SI Joint - YES) Anticoagulant - Hold Needed: N/A (Not currently on Anticoagulants) Anticoagulant - Currently Taking: None Allergies (relevant): None Scheduling - Mobility (Can Patient independently transfer on/off an OR or Procedure table?): YES (May schedule at any location) Scheduling - Additional Info: None Studies: X-ray: Hip (Left) reviewed Functional Taoism: Continue home exercises from Chiropractics Referrals: No additional considerations at present Follow-up:2 months Depending on response to the above plan, consider: Right GT bursa injection and/or TPI Attribution: In addition to reviewing the information noted above, some elements copied from my most recent clinical note(s), including the physical exam (completed in entirety today), and the impression and plan sections, have been updated where appropriate. All reflect current medical decision making from today's date. Alina Bryson APRN.TOOL GRINDER SET UP OPERATOR GEAR Pain Management [facility] Review of Systems Constitutional: Positive for activity change. Negative for chills, fever and unexpected weight change. Genitourinary: Negative for difficulty urinating. Musculoskeletal: Positive for arthralgias, back pain and gait problem. Negative for joint swelling, myalgias, neck pain and neck stiffness. Neurological: Positive for weakness and numbness. Negative for headaches. Psychiatric/Behavioral: Positive for sleep disturbance. Negative for dysphoric mood and suicidal ideas. The patient is not nervous/anxious. documented in this encounter [facility] 05-20-2024 Note HNO ID: [id number] Author: JERRICA JASMINE LPN Service: ? Author Type: LICENSED NURSE Type: Progress Notes Filed: 05/20/2024 16:31 Note Text: Review of Systems Constitutional: Positive for activity change. Negative for chills, fever and unexpected weight change. Genitourinary: Negative for difficulty urinating. Musculoskeletal: Positive for arthralgias, back pain and gait problem. Negative for joint swelling, myalgias, neck pain and neck stiffness. Neurological: Positive for weakness and numbness. Negative for headaches. Psychiatric/Behavioral: Positive for sleep disturbance. Negative for dysphoric mood and suicidal ideas. The patient is not nervous/anxious. [facility] 05-17-2024 Telephone encounter Note 05/17/24- patient called asking to schedule an appointment with Alina to discuss another injection or TPI because he's still in pain. Scheduled him on 05/20/24 with Alina in the [place] office. Patient is aware this appointment is not for injections but to discuss . Hazel Nicholson [facility] 05-17-2024 Miscellaneous Notes 05/17/24- patient called asking to schedule an appointment with Alina to discuss another injection or TPI because he's still in pain. Scheduled him on 05/20/24 with Alina in the [place] office. Patient is aware this appointment is not for injections but to discuss . Hazel Nicholson documented in this encounter [facility] 05-13-2024 History of Present illness Narrative Radiology Service Progress Note PATIENT NAME: Luis Angel Aguila DATE OF SERVICE: May 13, 2024 TIME: 11:43 AM PATIENT IDENTITY VERIFICATION COMPLETED USING TWO (2) IDENTIFIERS: Name and Date of confirmed by patient verbally. FALL SCREENING: Has the patient had 2 falls in the last year or 1 fall with injury or currently using an Ambulatory Assistive Device (Walker, Cane, Wheelchair, Crutches, etc.)? Yes, Patient High Risk for Falls What interventions were put in place to prevent falls during this visit? Increased Observations by Caregivers PATIENT GENDER DATA: Assigned male at PATIENT RELEVANT IMPLANT DATA REVIEWED: Not Applicable PATIENT PRESENTS WITH AN IMPLANTABLE OR ATTACHED WIND TURBINE PERFORMANCE ENGINEER: No RADIOLOGY DEPARTMENT: General X-ray: Exam(s) Completed: Pelvis X-Ray: Pelvis with Hip Left PERIPHERAL IV DATA: Not applicable SIGNED BY: MELODY Young) May 13, 2024 11:43 AM documented in this encounter [facility] 05-13-2024 Note HNO ID: [id number] Author: KATHARINA GARCIA RT(R) Service: ? Author Type: Technologist Type: Progress Notes Filed: 05/13/2024 11:44 Note Text: Radiology Service Progress Note PATIENT NAME: Luis Angel Aguila DATE OF SERVICE: May 13, 2024 TIME: 11:43 AM PATIENT IDENTITY VERIFICATION COMPLETED USING TWO (2) IDENTIFIERS: Name and Date of confirmed by patient verbally. FALL SCREENING: Has the patient had 2 falls in the last year or 1 fall with injury or currently using an Ambulatory Assistive Device (Walker, Cane, Wheelchair, Crutches, etc.)? Yes, Patient High Risk for Falls What interventions were put in place to prevent falls during this visit? Increased Observations by Caregivers PATIENT GENDER DATA: Assigned male at PATIENT RELEVANT IMPLANT DATA REVIEWED: Not Applicable PATIENT PRESENTS WITH AN IMPLANTABLE OR ATTACHED WIND TURBINE PERFORMANCE ENGINEER: No RADIOLOGY DEPARTMENT: General X-ray: Exam(s) Completed: Pelvis X-Ray: Pelvis with Hip Left PERIPHERAL IV DATA: Not applicable SIGNED BY: RT Hannah(R) May 13, 2024 11:43 AM [facility] 05-13-2024 Note HNO ID: [id number] Author: ALINA BRYSON APRN.JAMES Service: ? Author Type: Nurse Practitioner Type: Progress Notes Filed: 05/13/2024 09:55 Note Text: [facility] [place] Today's Date: 05/13/2024 Name: Luis Angel Aguila : 1955 Purpose: Follow-up Patient Evaluation - This is an established patient, returning today for continued evaluation and management of the chief complaint noted below Chief complaint: hip pain and back pain Referring Clinician: Self Pertinent Past Medical History: Hypertension (HTN), Hyperlipidemia (HLD), COPD , Gastroesophageal Reflux Disease (GERD), Ileus (11/2022), 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 node, OA multiple joints, Nicotine use disorder, Pertinent Past Surgeries: Cervical fusion, Bilat shoulder surgery Plan at last visit: (Seen on 03/11/2024 by Alina Bryson CNP) IMPRESSION: 69 year old male presents with complaint(s) of Low back pain with radicular symptoms. I reviewed the MRI with the lumbar spine with the patient at this point we will attempt to do an interlaminar epidural steroid injection at L5-S1. Patient is in agreement with this plan. We will also continue Lyrica however will increase it from 75 mg twice daily to 100 mg twice daily to see if the patient gets better relief. Medications: Requested Prescriptions Signed Prescriptions Disp Refills pregabalin (LYRICA) 100 mg capsule 60 capsule 2 Sig: Take 1 capsule by mouth two times a day for 90 days. Interventional Procedures: Epidural Steroid Injection - Interlaminar Approach (ILESI) under fluoroscopic guidance NONE at L5-S1 Radio Recorder Needed: Epidural - YES Anticoagulant - Hold Needed: N/A (Not currently on Anticoagulants) Anticoagulant - Currently Taking: None Allergies (relevant): None Scheduling - Mobility (Can Patient independently transfer on/off an OR or Procedure table?): YES (May schedule at any location) Scheduling - Additional Info: None Studies: MRI: Lumbar Spine was reviewed pt states understanding. Functional Taoism: Continue home exercises from Chiropractics Referrals: No additional considerations at present Follow-up:1 month after injection Depending on response to the above plan, consider: Right GT bursa injection and/or TPI Interval History: Overall pain and functional disability since last visit: Unchanged New Complaints since last visit: No 04/26/2024 patient had transforaminal epidural steroid injection from L5-S1 reporting 100% relief. Patient stating he was doing great. He was doing all the activities he normally does without having pain. Patient states last week he was loading a truck and he fell on ice and twisted. States he has had pain ever since and his left hip. Patient has had left hip x-rays in the past. Patient stating that his left hip pain is worse with ambulation. States pretty much the minute he stands up the pain increases in his hip stating the pain starts in the back of the hip and will go strongly into his groin and down the front of his thigh. This is all on the left side. Patient stating his back is feeling much better. Current Pain Medications: Neuropathics: lyrica NSAIDS: Muscle Relaxants: Topicals: Other Prescription or OTC Pain Medications: tylenol Opioids (when applicable): Anti-depressants or Mood-Stabilizers: None Anti-Coagulants: None Therapies Attended (Current or Most Recent): No Current Therapies 05/01/2023 03/11/2024 AG SPINE COMBINATION Questionnaire GREENLIGHT Completed Date 05/01/2023 Questionnaire Opiod Risk Tool Opiod Risk Tool Completed Date 05/01/2023 03/11/2024 Comments Low Risk 0 - Low Risk No question data found. 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 Patient stating he was doing great. He was doing all the activities he normally does without having pain. Patient states last week he was loading a truck and he fell on ice and twisted. States he has had pain ever since and his left hip. Patient has had left hip x-rays in the past. Patient stating that his left hip pain is worse with ambulation. (more content not included)... [facility] 05-13-2024 History of Present illness Narrative Images from the original note were not included. [facility] Today's Date: 05/13/2024 Name: Luis Angel Aguila : 1955 Purpose: Follow-up Patient Evaluation - This is an established patient, returning today for continued evaluation and management of the chief complaint noted below Chief complaint: hip pain and back pain Referring Clinician: Self Pertinent Past Medical History: Hypertension (HTN), Hyperlipidemia (HLD), COPD , Gastroesophageal Reflux Disease (GERD), Ileus (11/2022), 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 node, OA multiple joints, Nicotine use disorder, Pertinent Past Surgeries: Cervical fusion, Bilat shoulder surgery Plan at last visit: (Seen on 03/11/2024 by Alina Bryson CNP) IMPRESSION: 69 year old male presents with complaint(s) of Low back pain with radicular symptoms. I reviewed the MRI with the lumbar spine with the patient at this point we will attempt to do an interlaminar epidural steroid injection at L5-S1. Patient is in agreement with this plan. We will also continue Lyrica however will increase it from 75 mg twice daily to 100 mg twice daily to see if the patient gets better relief. Medications: Requested Prescriptions Signed Prescriptions Disp Refills pregabalin (LYRICA) 100 mg capsule 60 capsule 2 Sig: Take 1 capsule by mouth two times a day for 90 days. Interventional Procedures: Epidural Steroid Injection - Interlaminar Approach (ILESI) under fluoroscopic guidance NONE at L5-S1 Radio Recorder Needed: Epidural - YES Anticoagulant - Hold Needed: N/A (Not currently on Anticoagulants) Anticoagulant - Currently Taking: None Allergies (relevant): None Scheduling - Mobility (Can Patient independently transfer on/off an OR or Procedure table?): YES (May schedule at any location) Scheduling - Additional Info: None Studies: MRI: Lumbar Spine was reviewed pt states understanding. Functional Taoism: Continue home exercises from Chiropractics Referrals: No additional considerations at present Follow-up:1 month after injection Depending on response to the above plan, consider: Right GT bursa injection and/or TPI In terval History: Overall pain and functional disability since last visit: Unchanged New Complaints since last visit: No 04/26/2024 patient had transforaminal epidural steroid injection from L5-S1 reporting 100% relief. Patient stating he was doing great. He was doing all the activities he normally does without having pain. Patient states last week he was loading a truck and he fell on ice and twisted. States he has had pain ever since and his left hip. Patient has had left hip x-rays in the past. Patient stating that his left hip pain is worse with ambulation. States pretty much the minute he stands up the pain increases in his hip stating the pain starts in the back of the hip and will go strongly into his groin and down the front of his thigh. This is all on the left side. Patient stating his back is feeling much better. Current Pain Medications: Neuropathics: lyrica NSAIDS: Muscle Relaxants: Topicals: Other Prescription or OTC Pain Medications: tylenol Opioids (when applicable): Anti-depressants or Mood-Stabilizers: None Anti-Coagulants: None Therapies Attended (Current or Most Recent): No Current Therapies 05/01/2023 03/11/2024 AG SPINE COMBINATION Questionnaire GREENLIGHT Completed Date 05/01/2023 Questionnaire Opiod Risk Tool Opiod Risk Tool Completed Date 05/01/2023 03/11/2024 Comments Low Risk 0 - Low Risk No question data found. 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 Patient stating he was doing great. He was doing all the activities he normally does without having pain. Patient states last week he was loading a truck and he fell on ice and twisted. States he has had pain ever since and his left hip. Patient has had left hip x-rays in the past. Patient stating that his left hip pain is worse with ambulation. States pretty much the minute he stands up the pain increases in his hip stating the pain starts in the back of the hip and will go strongly into his groin and down the front of his thigh. This is all on the left side. Patient stating his back is feeling much better. 05/01/2023 03/11/2024 AG SPINE COMBINATION Questionnaire GREENLIGHT Completed Date 05/01/2023 Questionnaire Opiod Risk Tool Opiod Risk Tool Completed Date 05/01/2023 03/11/2024 Comments Low Risk 0 - Low Risk No question data found. (All drug screens are appropriate unless indicated otherwise) No table Events During Course of Treatment: History of Present Illness (HPI): 04/29/2023 - Initial HPI (Obtained by Hector Ritchie M.D.). DURATION AND ONSET: The pain complaint has been present for approximately many years. The pain had a gradual onset. The mechanism of injury is unknown. He reports he has had years of low back pain, but that the past 4-5 years, he has had worsening pain. He reports that he was told that radiation may have damaged the lumbar discs. He was 6'2 at one point, now is 5'9. He had radiation therapy for Prostate cancer in 2021, cancer returned, now using Lupron injections. RED FLAG SYMPTOMS: difficulty with bowel or bladder control. Treatment History: PAIN PROCEDURES: DATE PROCEDURE IMPROVEMENT 04/26/2024 TFESI L5-S1 100% 07/16/2023 B/L RFA L4-S1 To soon to tell. MEDICATIONS Taken TO DATE (for the chief complaint(s)): Neuropathics: Neurontin (Gabapentin) NSAIDS: Mobic (Meloxicam) Muscle Relaxants: None Topicals: None Other Prescription or OTC Pain Medications: Aspirin Opioids: None Data Reviewed Today: Allergies: ALLERGIES Allergen Reactions Morphine Rash, Itching Prednisone Mental Status Change Social History Tobacco Use Smoking status: Every Day Current packs/day: 1.00 Average packs/day: 1 pack/day for 55.0 years (55.0 ttl pk-yrs) Types: Cigarettes Smokeless tobacco: Never Tobacco comments: Pt has cut back to 1/2 pack daily. Vaping Use Vaping status: Never Used Substance Use Topics Alcohol use: Yes Comment: occasionaly Drug use: Never 04/24/2024 05/07/2024 INTAKE PAIN ASSESSMENT Are you having pain associated with your visit today? Yes, Provider notified Yes, Provider notified Pain Scales Verbal (Numeric Rating or Visual Analog Scale) Pain Level 8 7 Pain Location Back-Lower Groin Description Aching;Radiating;Sharp;Shooting;Sore;S tabbing;Tenderness;Throbbing;Tingling Aching;Sharp Duration Units Days Weeks Frequency Continuous Intermittent Intervention/Comfort measure Medication;Reposition Comments nothing really helps Compliance: PDMP website checked and validated on 05/13/2024 by Alina Bryson APRN.TOOL GRINDER SET UP OPERATOR GEAR All prescriptions have been APPROPRIATELY filled. No suspicious activity was identified. Tramadol 50mg, #12 (11/14/2022) 05/01/2023 03/11/2024 AG SPINE COMBINATION Questionnaire GREENLIGHT Completed Date 05/01/2023 Questionnaire Opiod Risk Tool Opiod Risk Tool Completed Date 05/01/2023 03/11/2024 Comments Low Risk 0 - Low Risk (All drug screens are appropriate unless indicated otherwise) Risk Assessment: LAST-7: 05/01/2023 LAST - 7 SCORES Score 0 (0-4) minimal anxiety, (5-9) mild anxiety, (10-14) moderate anxiety, (15-21) severe anxiety PHQ-9: 05/01/2023 PHQ-9 Score 1 (0-4) minimal depression, (5-9) mild depression, (10-14) moderate depression, (15-19) moderately severe depression, (20-27) severe depression Opioid Risk Tool: Family History of Substance Abuse: Yes Alcohol: 1 -Female Personal History of Substance Abuse: 0 - No Age between 16-45: 0 - No History of Pre-Adolescence Sexual Abuse: 0 - No Psychological Disease: 0 - No Risk Total: 1 Total Score Risk Category: Low Risk 0-3 (0-3, low risk or no risk; 4-7, moderate risk, 8+, high risk) Diagnostic Studies: Relevant Imaging: MRI Spine Report MRI LUMBAR SPINE WO IVCON Exam End: 05/27/2023 9:29 AM (Final result) Narrative: * * *Final Report* * * DATE OF EXAM: May 27 2023 9:00AM [facility] 0303 - MRI LUMBAR SPINE WO IVCON / PROCEDURE REASON: multiple diagnoses * * * * Physician Interpretation * * * * EXAMINATION: MRI LUMBAR SPINE WO IVCON CLINICAL HISTORY: Chronic bilateral low back pain, unspecified whether sciatica present. Failed NSAIDS for three months. TECHNIQUE: Routine lumbosacral spine MR protocol without gadolinium. MQ: [id number] COMPARISON: None. RESULT: Counting reference: Lumbosacral junction. For the purposes of this report, L4-5 is considered the level of the iliac crest and assume there are 5 lumbar-type vertebrae. Anatomic variant: None. Localizer images: T2 hyperintense presumed renal cysts. Alignment: Levoscoliosis, apex L3-L4. Bone marrow signal/fracture: No evidence of pathologic marrow infiltration. No evidence of prior fracture. Multilevel scattered predominantly type I endplate marrow degenerative signal changes most notably at L1-L2, L4-L5 and L5-S1. Conus: The conus is within normal limits of signal intensity and morphology. Paraspinal soft tissues: Paraspinal soft tissues are within normal limits. Lower thoracic spine: Visualized lower thoracic canal and foramina are patent. L1-L2: Mild spinal canal stenosis secondary disc osteophyte complex. Minimal degenerative facet arthrosis. Mild left and no significant right foraminal stenosis. L2-L3: Mild spinal canal stenosis secondary to right eccentric disc osteophyte complex. Mild to moderate right subarticular recess effacement. Mild degenerative facet arthrosis. Moderate left and mild right foraminal stenosis. L3-L4: Mild spinal canal stenosis secondary disc bulging and dorsal osteophytic endplate spurring. Right subarticular superimposed extrusion with caudal extension effacing the right subarticular zone and contacting/minimally impinging upon the traversing right L4 nerve root. Moderate degenerative facet arthrosis. Moderate right and mild left foraminal stenosis. L4-L5: Mild spinal canal stenosis secondary disc bulging and dorsal osteophytic endplate spurring. Moderate degenerative facet arthrosis. Mild left subarticular recess effacement. Moderate right and mild left foraminal stenosis. L5-S1: Mild spinal canal stenosis secondary disc bulging and dorsal osteophytic endplate spurring. Moderate degenerative facet arthrosis. Severe bilateral foraminal stenosis. Sacrum and iliac wings: Edema in both sacral ala which may be reflective of acute subacute sacral insufficiency fractures. Impression: IMPRESSION: Lumbar spondylosis and scoliosis with multiple levels of mild spinal canal stenosis. Moderate right subarticular recess effacement at L3-L4 secondary to small caudally directed extrusion. No high-grade spinal canal stenosis. Up to severe bilateral foraminal stenosis at L5-S1. Left greater than right sacral edema, suspicious of bilateral acute to subacute sacral insufficiency fractures. Anatomic Lumbar Variant: None. L4-5 is considered the level of the iliac crest and assume there are 5 lumbar-type vertebrae. Header Operator: [facility] HOSPITALAnkit Transcribe Date/Time: May 27 2023 9:49A Dictated by : SALAZAR HOFFMAN DO This examination was interpreted and the report reviewed and electronically signed by: SALAZAR HOFFMAN DO on May 27 2023 9:56AM EST X-ray Bilat. Hip / Lumbar 03/2023 RESULT: 5 nonrib-bearing lumbar-type vertebrae. For numbering purposes, L4-5 is at the level of the iliac crest. Severe disc space narrowing and multilevel vacuum phenomenon from L1 through S1. No acute fracture or focal bony abnormality. Degenerative change involving the posterior elements from L4 through S1. Levoscoliosis of 22 degrees as measured from inferior L1 to superior L4. AP pelvis and 2 coned-down views of each hip show mild degenerative change. No significant joint space narrowing. No fracture or focal bony abnormality. Normal mineralization and alignment. SI joints are Unremarkable IMPRESSION: DEGENERATIVE CHANGE AND ALIGNMENT ABNORMALITIES WITHIN THE LUMBAR SPINE DESCRIBED. MILD DEGENERATIVE CHANGE INVOLVING BOTH HIPS. Electrodiagnostic Study (EMG): None Recent Labs: Creatinine Date Value Ref Range Status 06/06/2023 0.84 0.73 - 1.22 mg/dL Final No results found for: EGFR No results found for: PCGLUCOSE Current Medications, Past Medical History, Past Surgical History, Family History, Social History and Review of Systems: On today's date, noted above, I have confirmed and edited as necessary, the PFSH and ROS obtained by others. Physical Exam Vitals reviewed. Constitutional: General: He is not in acute distress. Appearance: He is not ill-appearing. HENT: Head: Normocephalic and atraumatic. Eyes: Conjunctiva/sclera: Conjunctivae normal. Cardiovascular: Pulses: Normal pulses. Pulmonary: Effort: Pulmonary effort is normal. No respiratory distress. Musculoskeletal: Thoracic back: No tenderness or bony tenderness. No scoliosis. Lumbar back: No spasms or tenderness. Decreased range of motion. Positive left straight leg raise test. Negative right straight leg raise test. No scoliosis. Right hip: Tenderness (pain elicited with light palpation to right GT region) present. Decreased range of motion. Left hip: Tenderness and bony tenderness present. Decreased range of motion. Comments: Hip Flexion: Right- 5/5; Left- 5/5 Knee Extension: Right- 5/5; Left- 5/5 Dorsiflexion: Right- 5/5; Left- 5/5 Plantarflexion: Right- 5/5; Left- 5/5 Special Tests- Facet Loading: Right-Positive ; Left Positive SI Compression:Negative ISAAC:Right-Positive; Left Positive Skin: General: Skin is warm and dry. Neurological: Mental Status: He is alert and oriented to person, place, and time. Gait: Gait and tandem walk normal. Deep Tendon Reflexes: Reflexes are normal and symmetric. Reflex Scores: Patellar reflexes are 2+ on the right side and 2+ on the left side. Psychiatric: Mood and Affect: Mood and affect normal. Behavior: Behavior normal. Behavior is cooperative. IMPRESSION: 69 year old male presents with complaint(s) of Low back pain with radicular symptoms. Patient is also suffering from a acute left hip pain due to a recent fall. I ordered an x-ray of his left hip we will give him oral steroids short-term to see if this will help with the pain. In the meantime his lower back is feeling much better and had been since the injection. Will repeat a transforaminal epidural injection if needed in the future. Will also continue Lyrica as patient feels it is beneficial. Diagnoses: (M48.062) Spinal stenosis of lumbar region with neurogenic claudication (primary encounter diagnosis) (M54.16) Lumbar radiculopathy (M47.816) Lumbar spondylosis (M25.552) Pain in left hip (M16.0) Primary osteoarthritis of both hips PLAN: Luis Angel Aguila would benefit from the following to reach personal goals for decreasing pain, improving function and work participation, and/or improving quality of life: Medications: Requested Prescriptions Signed Prescriptions Disp Refills pregabalin (LYRICA) 100 mg capsule 180 capsule 1 Sig: Take 1 capsule by mouth two times a day for 180 days. methylPREDNISolone (MEDROL, SWEETIE,) 4 mg Dose-Pack 21 tablet 0 Sig: As pkg directs Interventional Procedures: none Studies: X-ray: Hip (Left) Functional Taoism: Continue home exercises from Chiropractics Referrals: No additional considerations at present Follow-up:2 months Depending on response to the above plan, consider: Right GT bursa injection and/or TPI Attribution: In addition to reviewing the information noted above, some elements copied from my most recent clinical note(s), including the physical exam (completed in entirety today), and the impression and plan sections, have been updated where appropriate. All reflect current medical decision making from today's date. Alina Bryson APRN.TOOL GRINDER SET UP OPERATOR GEAR Pain Management [facility], [facility] Review of Systems Constitutional: Positive for activity change. Negative for chills, fever and unexpected weight change. Genitourinary: Negative for difficulty urinating. Musculoskeletal: Positive for arthralgias, back pain, gait problem, joint swelling, myalgias, neck pain and neck stiffness. Neurological: Positive for numbness. Negative for weakness and headaches. Psychiatric/Behavioral: Negative for dysphoric mood, sleep disturbance and suicidal ideas. The patient is not nervous/anxious. documented in this encounter [facility] 05-13-2024 Note HNO ID: [id number] Author: LIZABETH ARAIZA LPN Service: ? Author Type: LICENSED NURSE Type: Progress Notes Filed: 05/13/2024 09:55 Note Text: Review of Systems Constitutional: Positive for activity change. Negative for chills, fever and unexpected weight change. Genitourinary: Negative for difficulty urinating. Musculoskeletal: Positive for arthralgias, back pain, gait problem, joint swelling, myalgias, neck pain and neck stiffness. Neurological: Positive for numbness. Negative for weakness and headaches. Psychiatric/Behavioral: Negative for dysphoric mood, sleep disturbance and suicidal ideas. The patient is not nervous/anxious. [facility] 04-27-2024 History of Present illness Narrative Patient ID: Luis Angel Aguila is a 69 y.o. male. Diagnosis: metastatic PC HISTORY OF PRESENT ILLNESS: 67 yo man visiting from [place] (Dr. Luis Escobedo) here for prostate cancer: H/o htn, oa, mild COPD. 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 12/[address] 01/25 biopsy with grade group 3 prostate adenocarcinoma Bone scan neg 04/20/21 Prostatectomy grade group 2, inv seminal vesicles bilat, extraprostatic extension, PNI/LVI, positive surgical margin, [address] pos - pT3bN1 ([place] 3+4) Post op PSA 18 05/29/21 - PSMA - LN +. / no distant disease. back to OR for vesicoureteral anastomosis for leak 06/2021 Lupron 22.5 mg x 2 - stopped d/t patient preference along with apalutamide - stopped d/t constipation and brain fog 11/07/21 - 12/07/21 EBRT whole pelvis and prostate bed boost - aborted early during third week d/t bowel toxicity (severe diarrhea, c diff neg, nausea and poor by mouth intake) (patients decision) Pt has been on intermittent ADT 03/14/23 - ADT locally 11/10/23 - negative FDG PET. PSA low with ADT. discontinue ADT per pt preference 03/08/24 - Observation PSA 03/15/24 - PSA 0.32 03/05/24 - 0.33 -- T 648 12/12/23 - 0.06 -- T 137 11/06/23 - 0.02 -- T 6 09/12/23 - 0.03 -- T < 12 06/13/23 - 0.03 03/10/23 - 0.45 -- T 883 02/06/23 - 0.37 OBJECTIVE: VS / Pain: Pulse 63 Temp 36.5 C (97.7 F) (Temporal) Resp 18 Wt 79.3 kg (174 lb 13.2 oz) SpO2 97% BMI 25.78 kg/m BSA: 1.97 meters squared Performance Status: ECOG Score: 0- Fully active, able to carry on all pre-disease performance w/o restriction. Assessment/Plan I personally saw patient and counselled all visit on his diagnosis, kamilla history and coordination of his care. This is a 69 y.o. male man known with LN+ PC on ADT (d/c zytiga/pred and apa s/t AEs) with T > 50 and low PSA and negative recent PSMA (June 2022). He had incomplete salvage XRT but aborted s/t bowel tox. He is discontinuing ADT per pt preference - understands R/A of this decision. He was found with some lung abn, but PET was negative and bronch results negative. He is smoker. CPM with labs in 3 months PET looks reassuring, will wait for report. We discussed the clinical significance of diagnosis, goals of care and treatment plan in detail. Thank you for the opportunity to be involved in the care of Luis Angel Aguila. Please do not hesitate to reach out with any questions. Thank you. Rodolfo Ariza MD, Msc, [facility] Chair in Cancer Research Co-Leader Genitourinary () Disease Team Director of Medical Oncology Research Program [facility] sports information director [address], [address] [place] [id number] [email or web address] Luis Angel is here with his Kat today for follow up with Dr Ariza. He reports he is doing well with no new complaints. Meds and allergies reviewed and updated. Plan for labs and MD follow up in 3 months. Lab reqs printed and given to patient to have labs drawn at [place]. Education Documentation Healthy Lifestyle, taught by Verenice Colon RN at 04/27/2024 3:40 PM. Learner: Significant Other, Patient Readiness: Acceptance Method: Explanation, Handout Response: Verbalizes Understanding Comment: Patient printed and given lab reqs to have labs drawn prior to next MD appt. Treatment Plan and Schedule, taught by Verenice Colon RN at 04/27/2024 3:40 PM. Learner: Significant Other, Patient Readiness: Acceptance Method: Explanation, Handout Response: Verbalizes Understanding Comment: Patient printed and given lab reqs to have labs drawn prior to next MD appt. General Medication Information, taught by Verenice Colon RN at 04/27/2024 3:40 PM. Learner: Significant Other, Patient Readiness: Acceptance Method: Explanation, Handout Response: Verbalizes Understanding Comment: Patient printed and given lab reqs to have labs drawn prior to next MD appt. Supportive Medications, taught by Verenice Colon RN at 04/27/2024 3:40 PM. Learner: Significant Other, Patient Readiness: Acceptance Method: Explanation, Handout Response: Verbalizes Understanding Comment: Patient printed and given lab reqs to have labs drawn prior to next MD appt. Diagnostic Studies, taught by Verenice Colon RN at 04/27/2024 3:40 PM. Learner: Significant Other, Patient Readiness: Acceptance Method: Explanation, Handout Response: Verbalizes Understanding Comment: Patient printed and given lab reqs to have labs drawn prior to next MD appt. When and How to Contact Clinic, taught by Verenice Colon RN at 04/27/2024 3:40 PM. Learner: Significant Other, Patient Readiness: Acceptance Method: Explanation, Handout Response: Verbalizes Understanding Comment: Patient printed and given lab reqs to have labs drawn prior to next MD appt. Education Comments No comments found. ' documented in this encounter [facility] Work Phone: 04-26-2024 Note HNO ID: [id number] Author: AMADEO YEE MD Service: ? Author Type: Physician Type: Progress Notes Filed: 04/26/2024 10:11 Note Text: [facility] Date: 04/26/2024 Patient name: Luis Angel Aguila Physician performing procedure: Amadeo Yee MD Diagnosis: (M54.16) Lumbar radiculopathy (primary encounter diagnosis) Procedure: Epidural Steroid Injection - Interlaminar Approach (ILESI) under fluoroscopic guidance MIDLINE at L5-S1 Injectate: A total of 5 ml volume was injected The injectate consisted of: 1 ml of Depo-Medrol (40mg/ml), 1 ml of Lidocaine 1%, The remainder consisting of Normal Saline Comments: Significant degenerative changes. Improvement after today's procedure: as per nursing report HPI: Luis Angel Aguila is an 69 year old MALE who presents today, in pain, for the procedure noted above. Review of Systems: Pertinent Positives: MSK: pain in the region being treated Neuro: weakness or numbness in the region being treated Skin: Negative (No itching) Eyes: Negative (No blurred or double vision) Respiratory: Negative (No Cough, [id number]-[id number], Dyspnea on exertion, wheezing) Cardiovascular: Negative (No Chest Pain, Tightness, Pressure, Palpitations) Gastrointestinal: Negative (No Abdominal pain, Nausea, Vomiting, Constipation, Diarrhea) Genitourinary: Negative (No dysuria) Hematologic: Negative (No bleeding, bruising) OB: is Denied or Not Applicable Endocrine: Negative (No hot/cold intolerance) Psychiatric: Negative (No depression, anxiety or suicidal ideation) 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) S/P prostatectomy Tobacco use disorder PAST SURGICAL HISTORY Procedure Laterality Date ABDOMINAL SURGERY HX APPENDECTOMY COLONOSCOPY 12/12/2022 repeat 5 years FOOT RIGHT OP SURGERY Right FRACTURE SURGERY REMOVAL OF PROSTATE REPAIR ABDOMINAL HERNIA SHOULDER SURGERY HX Bilateral XR CERVICAL FUSION OR FAMILY HISTORY Problem Relation Age of Onset Lung Cancer Mother Dementia Father other (ETOH) Father Hypertension Brother Aneurysm Maternal Grandmother other (car accident) Maternal Grandfather other (car accident) Paternal Grandfather Social History Tobacco Use Smoking status: Every Day Current packs/day: 1.00 Average packs/day: 1 pack/day for 55.0 years (55.0 ttl pk-yrs) Types: Cigarettes Smokeless tobacco: Never Tobacco comments: Pt has cut back to 1/2 pack daily. Vaping Use Vaping status: Never Used Substance Use Topics Alcohol use: Yes Comment: occasionaly Drug use: Never Current Outpatient Medications on File Prior to Visit Medication Sig pregabalin (LYRICA) 100 mg capsule Take 1 capsule by mouth two times a day for 90 days. albuterol HFA (VENTOLIN HFA) 90 mcg/actuation inhaler Inhale 2 Puffs as instructed every 4 hours as needed for wheezing/shortness of breath. atenolol (TENORMIN) 50 mg tablet Take one tablet daily along with 25 mg tablet to equal 75 mg daily atorvastatin (LIPITOR) 40 mg tablet Take 1 tablet by mouth daily at bedtime. For cholesterol. lisinopril (ZESTRIL) 40 mg tablet Take 1 tablet by mouth once daily. omeprazole (PRILOSEC) 40 mg capsule Take 1 capsule by mouth two times a day. tiotropium-olodaterol (STIOLTO RESPIMAT) 2.5-2.5 mcg/actuation inhaler Inhale 2 Puffs as instructed once daily. famotidine (PEPCID) 40 mg tablet Take 40 mg by mouth once daily. cyclobenzaprine (FLEXERIL) 10 mg tablet Take 1 tablet by mouth as directed. 1/2 to 1 tablet po qhs as needed for spasm acetaminophen (TYLENOL EXTRA STRENGTH) 500 mg tablet Take 1,000 mg by mouth every 8 hours as needed. aspirin, enteric coated (ASPIRIN, ENTERIC COATED) 81 mg EC tablet Take 81 mg by mouth once daily. docusate sodium (STOOL SOFTENER) 100 mg capsule Take 100 mg by mouth twice daily. cholecalciferol (VITAMIN D-3) 50 mcg (2,000 unit) tablet Take 2,000 Units by mouth once daily. beta-carotene,A,-vits C,E/mins (OCUVITE ORAL) Take 1 tablet by mouth once daily. calcium carbonate (CALCIUM 600 ORAL) Take 1 tablet by mouth once daily. Multivitamin capsule Take 1 capsule by mouth once daily. pregabalin (LYRICA) 75 mg capsule Take one pill twice daily No current facility-administered medications on file prior to visit. Objective Exam: Vitals: As per nursing documentation Constitutional: Normal Appearance, Oriented to Time, Place and Person Head: No lacerations, no external signs of trauma Eyes: Conjunctiva clear. No discharge from the eyes Cardiovascular: Appears well-perfused Pulmonary: Non-labored respirations Abdominal: Non-distended Skin: No visible rashes o (more content not included)... [facility] 01-20-2025 History of Present illness Narrative [facility] Date: 04/26/2024 Patient name: Luis Angel Aguila Physician performing procedure: Amadeo Yee MD Diagnosis: (M54.16) Lumbar radiculopathy (primary encounter diagnosis) Procedure: Epidural Steroid Injection - Interlaminar Approach (ILESI) under fluoroscopic guidance MIDLINE at L5-S1 Injectate: A total of 5 ml volume was injected The injectate consisted of: 1 ml of Depo-Medrol (40mg/ml), 1 ml of Lidocaine 1%, The remainder consisting of Normal Saline Comments: Significant degenerative changes. Improvement after today's procedure: as per nursing report HPI: Luis Angel Aguila is an 69 year old MALE who presents today, in pain, for the procedure noted above. Review of Systems: Pertinent Positives: MSK: pain in the region being treated Neuro: weakness or numbness in the region being treated Skin: Negative (No itching) Eyes: Negative (No blurred or double vision) Respiratory: Negative (No Cough, [id number]-[id number], Dyspnea on exertion, wheezing) Cardiovascular: Negative (No Chest Pain, Tightness, Pressure, Palpitations) Gastrointestinal: Negative (No Abdominal pain, Nausea, Vomiting, Constipation, Diarrhea) Genitourinary: Negative (No dysuria) Hematologic: Negative (No bleeding, bruising) OB: is Denied or Not Applicable Endocrine: Negative (No hot/cold intolerance) Psychiatric: Negative (No depression, anxiety or suicidal ideation) 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) S/P prostatectomy Tobacco use disorder PAST SURGICAL HISTORY Procedure Laterality Date ABDOMINAL SURGERY HX APPENDECTOMY COLONOSCOPY 12/12/2022 repeat 5 years FOOT RIGHT OP SURGERY Right FRACTURE SURGERY REMOVAL OF PROSTATE REPAIR ABDOMINAL HERNIA SHOULDER SURGERY HX Bilateral XR CERVICAL FUSION OR FAMILY HISTORY Problem Relation Age of Onset Lung Cancer Mother Dementia Father other (ETOH) Father Hypertension Brother Aneurysm Maternal Grandmother other (car accident) Maternal Grandfather other (car accident) Paternal Grandfather Social History Tobacco Use Smoking status: Every Day Current packs/day: 1.00 Average packs/day: 1 pack/day for 55.0 years (55.0 ttl pk-yrs) Types: Cigarettes Smokeless tobacco: Never Tobacco comments: Pt has cut back to 1/2 pack daily. Vaping Use Vaping status: Never Used Substance Use Topics Alcohol use: Yes Comment: occasionaly Drug use: Never Current Outpatient Medications on File Prior to Visit Medication Sig pregabalin (LYRICA) 100 mg capsule Take 1 capsule by mouth two times a day for 90 days. albuterol HFA (VENTOLIN HFA) 90 mcg/actuation inhaler Inhale 2 Puffs as instructed every 4 hours as needed for wheezing/shortness of breath. atenolol (TENORMIN) 50 mg tablet Take one tablet daily along with 25 mg tablet to equal 75 mg daily atorvastatin (LIPITOR) 40 mg tablet Take 1 tablet by mouth daily at bedtime. For cholesterol. lisinopril (ZESTRIL) 40 mg tablet Take 1 tablet by mouth once daily. omeprazole (PRILOSEC) 40 mg capsule Take 1 capsule by mouth two times a day. tiotropium-olodaterol (STIOLTO RESPIMAT) 2.5-2.5 mcg/actuation inhaler Inhale 2 Puffs as instructed once daily. famotidine (PEPCID) 40 mg tablet Take 40 mg by mouth once daily. cyclobenzaprine (FLEXERIL) 10 mg tablet Take 1 tablet by mouth as directed. 1/2 to 1 tablet po qhs as needed for spasm acetaminophen (TYLENOL EXTRA STRENGTH) 500 mg tablet Take 1,000 mg by mouth every 8 hours as needed. aspirin, enteric coated (ASPIRIN, ENTERIC COATED) 81 mg EC tablet Take 81 mg by mouth once daily. docusate sodium (STOOL SOFTENER) 100 mg capsule Take 100 mg by mouth twice daily. cholecalciferol (VITAMIN D-3) 50 mcg (2,000 unit) tablet Take 2,000 Units by mouth once daily. beta-carotene,A,-vits C,E/mins (OCUVITE ORAL) Take 1 tablet by mouth once daily. calcium carbonate (CALCIUM 600 ORAL) Take 1 tablet by mouth once daily. Multivitamin capsule Take 1 capsule by mouth once daily. pregabalin (LYRICA) 75 mg capsule Take one pill twice daily No current facility-administered medications on file prior to visit. Objective Exam: Vitals: As per nursing documentation Constitutional: Normal Appearance, Oriented to Time, Place and Person Head: No lacerations, no external signs of trauma Eyes: Conjunctiva clear. No discharge from the eyes Cardiovascular: Appears well-perfused Pulmonary: Non-labored respirations Abdominal: Non-distended Skin: No visible rashes or ecchymosis Psychiatric: Mood appropriate for given condition Neurological: Gross movements are limited by pain, but otherwise unremarkable Data Reviewed: Nursing note and vitals reviewed. Additional imaging reviewed as appropriate Assessment and Plan: As noted above [place] protocol documentation / Pre-Procedure Checklist: Consent: Obtained in writing prior to procedure I had a nice discussion with the patient today about their current pain and the pathology that could be causing it We discussed different treatment options, including risks, benefits and alternatives. We agreed to proceed as previously discussed, or the plan was modified in accordance with the comments noted above Unless stated otherwise in the procedure note, the risks include but are not limited to infection, allergic reaction, increased pain, lack of therapeutic benefit, steroid reaction, nerve damage, paralysis, stroke, epidural hematoma, syncope, headache, respiratory or cardiac arrest, pneumothorax, and scar formation Once the plan was agreed upon, the patient gave written consent to proceed and was transported into the procedure room Surgical/Procedure pause or Time Out : Time Out was led by the physician in the procedure room, with the patient and all staff present and participating The following information was verified during the Time Out process: Patient name, patient date of , procedure site (marked), laterality, anticoagulants and allergies Procedure: The patient was prepped and draped in a sterile fashion in the prone position after informed consent was signed and all the patient's questions were answered including the risks, benefits, alternative treatment options, and prognosis. The risks are as mentioned above. Using the approach mentioned above, the region overlying the inferior lamina was localized under fluoroscopic visualization and the soft tissues overlying this structure were infiltrated with 2-4 cc. of 1% Lidocaine without Epinephrine. A #20 gauge, 3.5 inch Tuohy needle was inserted into the epidural space using the approach mentioned above. The epidural space was localized using loss of resistance after negative aspirate for air, blood, and CSF. A 2 cc volume of Omnipaque 300 was injected into the epidural space and the flow of contrast was observed to be epidural. Needle placement was confirmed with AP, oblique, and contralateral oblique imaging. The above injectate was injected without complication. Please see the nursing note for exact times (time out, procedure start, procedure end). After careful removal of the needle, there was minimal bleeding. The injection site was covered with appropriate sterile dressing. The patient was noted to have tolerated the procedure well and was discharged after an appropriate period of post-procedure observation. The patient was instructed to contact us if there were any complications. The patient was advised to follow-up with the requesting physician within one to two weeks or as per their requested follow-up plan. Post procedure visit summary with written instructions was offered to the patient. Amadeo Yee MD Pain Management [facility] Review of Systems Order has been placed in the patient's chart with the following parameters for discharge from the physician: Patient is alert and oriented Vitals: Diastolic/Systolic +/- 20mmHg Respirations: 12-18 Pulse: 60-100 SpO2 is greater than or equal to 90% Patient has no nausea or vomiting Patient has no dizziness Pain level is +/- 2 from initial evaluation Dressing, dry and intact with no evidence of bleeding Criteria has been met, patient is okay to be discharged per the physician. Physician has gone in and evaluated the patient. Dressing dry and intact. No drainage noted. The patient denies nausea, numbness, tingling, weakness, shortness of breath, dizziness, or headache. Pain level 3/10. Vital signs within normal limits. Patient denied needing walked out by clinical staff and denied needing a wheelchair. Patient given discharge instructions and sent to transportation via ambulatory method. Patient left in good condition. Procedure to be performed: L5/S1 LUMBAR INTERLAMINAR EPIDURAL INJECTION Patient was wheeled on stretcher from pre op bay to procedure room and assisted onto the procedure tablePatient s procedure was performed in an [facility] Procedure room. Pause completed at each level by provider to verify correct level and laterality placement Pressure was applied to patient s injection site(s) and bleeding was minimal. Patient had no complaint of shortness of breath, dizziness, headache, numbness, tingling, weakness or complications from procedure. Patient was assisted from the procedure table onto the stretcher and wheeled into a post op bay. Patient was advised a clinician will be to obtain another set of vitals. Time Out: 941 Confirmed patient name, date of , procedure site, laterality, and allergies Procedure Start: 944 Procedure End: 948 Review of Systems Constitutional: Positive for activity change and chills. Negative for fever and unexpected weight change. Gastrointestinal: Negative for bowel retention or incontinence Genitourinary: Negative for difficulty urinating. Negative for bladder retention or incontinence Musculoskeletal: Positive for arthralgias, back pain, gait problem, joint swelling, myalgias, neck pain and neck stiffness. Neurological: Positive for weakness and numbness. Negative for headaches. Psychiatric/Behavioral: Positive for sleep disturbance. Negative for dysphoric mood and suicidal ideas. The patient is not nervous/anxious. Radio Recorder's Name: kat Are you on a blood thinner: n If yes, is a hold required: n Last dose of blood thinner: n INR Result today: n Do you require a Lovenox bridge:n Are you a diabetic:n Are you/or could you be : n Are you taking Xanax for the procedure: n Are you currently on a steroid? n Are you currently on an antibiotic: n documented in this encounter [facility] 04-26-2024 Note HNO ID: [id number] Author: ASHLEIGH ACOSTA LPN Service: ? Author Type: LICENSED NURSE Type: Progress Notes Filed: 04/26/2024 10:11 Note Text: Review of Systems Order has been placed in the patient's chart with the following parameters for discharge from the physician: Patient is alert and oriented Vitals: Diastolic/Systolic +/- 20mmHg Respirations: 12-18 Pulse: 60-100 SpO2 is greater than or equal to 90% Patient has no nausea or vomiting Patient has no dizziness Pain level is +/- 2 from initial evaluation Dressing, dry and intact with no evidence of bleeding Criteria has been met, patient is okay to be discharged per the physician. Physician has gone in and evaluated the patient. Dressing dry and intact. No drainage noted. The patient denies nausea, numbness, tingling, weakness, shortness of breath, dizziness, or headache. Pain level 3/10. Vital signs within normal limits. Patient denied needing walked out by clinical staff and denied needing a wheelchair. Patient given discharge instructions and sent to transportation via ambulatory method. Patient left in good condition. [facility] 04-26-2024 Note HNO ID: [id number] Author: LEO STANLEY LPN Service: ? Author Type: LICENSED NURSE Type: Progress Notes Filed: 04/26/2024 10:11 Note Text: Procedure to be performed: L5/S1 LUMBAR INTERLAMINAR EPIDURAL INJECTION Patient was wheeled on stretcher from pre op bay to procedure room and assisted onto the procedure tablePatient?s procedure was performed in an [facility] Procedure room. Pause completed at each level by provider to verify correct level and laterality placement Pressure was applied to patient?s injection site(s) and bleeding was minimal. Patient had no complaint of shortness of breath, dizziness, headache, numbness, tingling, weakness or complications from procedure. Patient was assisted from the procedure table onto the stretcher and wheeled into a post op bay. Patient was advised a clinician will be to obtain another set of vitals. Time Out: 941 Confirmed patient name, date of , procedure site, laterality, and allergies Procedure Start: 944 Procedure End: 948 [facility] 04-26-2024 Instructions Ashleigh Acosta LPN - 04/26/2024 9:30 AM EST PROCEDURE DISCHARGE INSTRUCTIONS 04/26/2024 Luis Angel Aguila 1955 Physician: Amadeo Yee MD Procedure: LUMBAR INTERLAMINAR EPIDURAL INJECTION Post Procedure Instructions: If sedation not given, no driving for 3 hours after the procedure., Rest the day of the procedure., You may resume normal activities the day after the procedure, as tolerated., Pain should gradually subside over the next 2-3 weeks., Avoid movements that may aggravate pain., Apply cold compresses to injection site if needed., If medically acceptable, take over the counter anti-inflammatories such as ibuprofen or Aleve if needed for post procedure discomfort., and No hot baths, hot tubs or hot compresses for 24 hours. If you have any of the following signs or symptoms, please call our office at Fever and/or chills Swelling and/or drainage from injection site New pain that is different than your normal pain (other than soreness at the site of the procedure) Stiff neck Shortness of breath Severe increase in pain Motor dysfunctions, such as difficulty walking, bowel or bladder dysfunction and/or incontinence Headache that is severe, light sensitive or develops when changing positions (positional headache) Nausea and/or vomiting accompanied by headache that started 24-48 hours after the procedure If you have any emergent concerns, please call 911 or go to your local emergency room. Please also contact our office to let us know you will be seeking emergency care and why. documented in this encounter [facility] 04-26-2024 Note HNO ID: [id number] Author: MERARI HERMAN LPN Service: ? Author Type: LICENSED NURSE Type: Progress Notes Filed: 04/26/2024 10:11 Note Text: Review of Systems Constitutional: Positive for activity change and chills. Negative for fever and unexpected weight change. Gastrointestinal: Negative for bowel retention or incontinence Genitourinary: Negative for difficulty urinating. Negative for bladder retention or incontinence Musculoskeletal: Positive for arthralgias, back pain, gait problem, joint swelling, myalgias, neck pain and neck stiffness. Neurological: Positive for weakness and numbness. Negative for headaches. Psychiatric/Behavioral: Positive for sleep disturbance. Negative for dysphoric mood and suicidal ideas. The patient is not nervous/anxious. [facility] 04-26-2024 Note HNO ID: [id number] Author: MERARI HERMAN LPN Service: ? Author Type: LICENSED NURSE Type: Progress Notes Filed: 04/26/2024 10:11 Note Text: Radio Recorder's Name: kat Are you on a blood thinner: n If yes, is a hold required: n Last dose of blood thinner: n INR Result today: n Do you require a Lovenox bridge:n Are you a diabetic:n Are you/or could you be : n Are you taking Xanax for the procedure: n Are you currently on a steroid? n Are you currently on an antibiotic: n [facility] 03-18-2024 Note HNO ID: [id number] Author: KAVON NINO, ? Service: ? Author Type: Nurse Practitioner Type: Progress Notes Filed: 03/18/2024 11:40 Note Text: Luis Angel Aguila 1955 03/18/2024 Oncologic problem(s): 1) Castrate sensitive prostate cancer. HPI: The patient is a 68-year-old male with past medical history significant for hyperlipidemia, hypertension, moderate COPD, GERD, previous cervical spine surgery, chronic low back pain and prostate cancer. Developed gross hematuria. PSA 50s. RP with penile implant. Bladder tear about a month later. PET--recurrence in prostate bed. 06/2021 4 weeks RT in [place] with GnRH agonist treatment (Lupron). Stopped due to side effects--Severe diarrhea and n/v. PSA undetectable 06/2022. Presumably from Lupron. CT A/P 11/18/2022: IMPRESSION: 1. Postoperative ileus versus changes of early small bowel obstruction within the right pelvis as discussed above. Short-term follow-up suggested. 2. Changes of recent prostatectomy and penile implant. There is a 6.0 x 2.7 x 9.5 cm nonencapsulated postoperative fluid collection within the right lower quadrant subcutaneous fat adjacent to the penile pump. 3. Mild free fluid. 4. Sacral insufficiency fractures. Medically managed for SBO. Presents for ongoing oncologic management. Interim history: Saw Dr. Ariza at 11/10/2023: -Assessment/Plan I personally saw patient and counselled all visit on his diagnosis, kamilla history and coordination of his care. This is a 68 y.o. male man known with LN+ PC on ADT (d/c zytiga/pred and apa s/t AEs) with T > 50 and low PSA and negative recent PSMA (June 2022). He had incomplete salvage XRT but aborted s/t bowel tox. He is discontinuing ADT per pt preference - understands R/A of this decision. He was found with some lung abn, but PET was negative and bronch results pending. He is smoker. Will call him in few weeks to Fup on bronch results We discussed the clinical significance of diagnosis, goals of care and treatment plan in detail. Thank you for the opportunity to be involved in the care of Luis Angel Aguila. Please do not hesitate to reach out with any questions. Thank you. Path was negative. Per recent note from [facility] -Follow up sp EGD with biopsies 11/26/2023. 1 cm circumferential salmon colored mucosa seen at the GE junction at the time of EGD, consistent with short segment Oliver's esophagus. 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 We discussed the etiology of Oliver's and need for continued endoscopic surveillance due to risk of malignancy. Recommend patient continue on his PPI/H2 nabil, repeat EGD in 5 years for surveillance. Hot flashes resolved. No symptoms of LUTS. No change in chronic LBP. Interval Hx: Pt presents today for follow up and lab review with his spouse. He reports feeling well. [place], caught a good cold. Cough, sinus pressure almost entirely resolved at this time. Denies new issues. Denies new aches or pains, just old ones No SOB, CP, or palpitations. No CORTEZ, dizziness, or changes in vision. No changes in bowel or bladder habits. No rash or skin changes. Bleeding hemorrhoids, stable. Managing intermittent constipation has been ongoing issue. Reviewed PSA doubling time today as well as recommendation to resume ADT, pt declines. 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 albuterol HFA (VENTOLIN HFA) 90 mcg/actuation inhaler Inhale 2 Puffs as instructed every 4 hours as needed for wheezing/shortness of breath. atenolol (TENORMIN) 50 mg tablet Take one tablet daily along with 25 mg tablet to equal 75 mg daily atorvastatin (LIPITOR) 40 mg tablet Take 1 tablet by mouth daily at bedtime. For cholesterol. lisinopril (ZESTRIL) 40 mg tablet Take 1 tablet by mouth once daily. omeprazole (PRILOSEC) 40 mg capsule Take 1 capsule by mouth two times a day. tiotropium-olodaterol (STIOLTO RESPIMAT) 2.5-2.5 mcg/actuation inhaler Inhale 2 Puffs as instructed once daily. famotidine (PEPCID) 40 mg tablet Take 40 mg by mouth o (more content not included)... [facility] 03-18-2024 History of Present illness Narrative Luis Angel Aguila 1955 03/18/2024 Oncologic problem(s): 1) Castrate sensitive prostate cancer. HPI: The patient is a 68-year-old male with past medical history significant for hyperlipidemia, hypertension, moderate COPD, GERD, previous cervical spine surgery, chronic low back pain and prostate cancer. Developed gross hematuria. PSA 50s. RP with penile implant. Bladder tear about a month later. PET--recurrence in prostate bed. 06/2021 4 weeks RT in [place] with GnRH agonist treatment (Lupron). Stopped due to side effects--Severe diarrhea and n/v. PSA undetectable 06/2022. Presumably from Lupron. CT A/P 11/18/2022: IMPRESSION: 1. Postoperative ileus versus changes of early small bowel obstruction within the right pelvis as discussed above. Short-term follow-up suggested. 2. Changes of recent prostatectomy and penile implant. There is a 6.0 x 2.7 x 9.5 cm nonencapsulated postoperative fluid collection within the right lower quadrant subcutaneous fat adjacent to the penile pump. 3. Mild free fluid. 4. Sacral insufficiency fractures. Medically managed for SBO. Presents for ongoing oncologic management. Interim history: Saw Dr. Ariza at 11/10/2023: -Assessment/Plan I personally saw patient and counselled all visit on his diagnosis, kamilla history and coordination of his care. This is a 68 y.o. male man known with LN+ PC on ADT (d/c zytiga/pred and apa s/t AEs) with T > 50 and low PSA and negative recent PSMA (June 2022). He had incomplete salvage XRT but aborted s/t bowel tox. He is discontinuing ADT per pt preference - understands R/A of this decision. He was found with some lung abn, but PET was negative and bronch results pending. He is smoker. Will call him in few weeks to Fup on bronch results We discussed the clinical significance of diagnosis, goals of care and treatment plan in detail. Thank you for the opportunity to be involved in the care of Luis Angel Aguila. Please do not hesitate to reach out with any questions. Thank you. Path was negative. Per recent note from [facility] -Follow up sp EGD with biopsies 11/26/2023. 1 cm circumferential salmon colored mucosa seen at the GE junction at the time of EGD, consistent with short segment Oliver's esophagus. 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 We discussed the etiology of Oliver's and need for continued endoscopic surveillance due to risk of malignancy. Recommend patient continue on his PPI/H2 nabil, repeat EGD in 5 years for surveillance. Hot flashes resolved. No symptoms of LUTS. No change in chronic LBP. Interval Hx: Pt presents today for follow up and lab review with his spouse. He reports feeling well. Went [place] about a [place], caught a good cold. Cough, sinus pressure almost entirely resolved at this time. Denies new issues. Denies new aches or pains, just old ones No SOB, CP, or palpitations. No CORTEZ, dizziness, or changes in vision. No changes in bowel or bladder habits. No rash or skin changes. Bleeding hemorrhoids, stable. Managing intermittent constipation has been ongoing issue. Reviewed PSA doubling time today as well as recommendation to resume ADT, pt declines. 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 albuterol HFA (VENTOLIN HFA) 90 mcg/actuation inhaler Inhale 2 Puffs as instructed every 4 hours as needed for wheezing/shortness of breath. atenolol (TENORMIN) 50 mg tablet Take one tablet daily along with 25 mg tablet to equal 75 mg daily atorvastatin (LIPITOR) 40 mg tablet Take 1 tablet by mouth daily at bedtime. For cholesterol. lisinopril (ZESTRIL) 40 mg tablet Take 1 tablet by mouth once daily. omeprazole (PRILOSEC) 40 mg capsule Take 1 capsule by mouth two times a day. tiotropium-olodaterol (STIOLTO RESPIMAT) 2.5-2.5 mcg/actuation inhaler Inhale 2 Puffs as instructed once daily. famotidine (PEPCID) 40 mg tablet Take 40 mg by mouth once daily. cyclobenzaprine (FLEXERIL) 10 mg tablet Take 1 tablet by mouth as directed. 1/2 to 1 tablet po qhs as needed for spasm acetaminophen (TYLENOL EXTRA STRENGTH) 500 mg tablet Take 1,000 mg by mouth every 8 hours as needed. pregabalin (LYRICA) 75 mg capsule Take one pill twice daily aspirin, enteric coated (ASPIRIN, ENTERIC COATED) 81 mg EC tablet Take 81 mg by mouth once daily. docusate sodium (STOOL SOFTENER) 100 mg capsule Take 100 mg by mouth twice daily. cholecalciferol (VITAMIN D-3) 50 mcg (2,000 unit) tablet Take 2,000 Units by mouth once daily. beta-carotene,A,-vits C,E/mins (OCUVITE ORAL) Take 1 tablet by mouth once daily. calcium carbonate (CALCIUM 600 ORAL) Take 1 tablet by mouth once daily. Multivitamin capsule Take 1 capsule by mouth once daily. No current facility-administered medications for this visit. Social History Tobacco Use Smoking status: Every Day Current packs/day: 1.00 Average packs/day: 1 pack/day for 55.0 years (55.0 ttl pk-yrs) Types: Cigarettes Smokeless tobacco: Never Tobacco comments: Pt has cut back to 1/2 pack daily. Vaping Use Vaping status: Never Used Substance Use Topics Alcohol use: Yes Comment: occasionaly Drug use: Never Family History Problem Relation Age of Onset Lung Cancer Mother Dementia Father other (ETOH) Father Hypertension Brother Aneurysm Maternal Grandmother other (car accident) Maternal Grandfather other (car accident) Paternal Grandfather Lab Results Component Value Date PSA 0.32 03/15/2024 PSA 0.06 12/12/2023 PSA 0.03 09/12/2023 PSA 0.03 06/13/2023 PSA 0.45 03/10/2023 PSA 0.37 02/06/2023 ROS: Constitutional: No fever. No drenching night sweats. Normal appetite. No unexplained weight loss. No significant fatigue. All systems reviewed on 03/18/2024 with pertinent positives and negatives as outlined in the interval history. PHYSICAL EXAM: Vitals: Blood pressure 131/80, pulse 63, temperature 36 C (96.8 F), resp. rate 12, weight 83.5 kg (184 lb), SpO2 98%. Well-appearing and in no acute distress. EYES: Sclerae are anicteric bilaterally. LYMPHATIC: There is no palpable cervical, supraclavicula adenopathy. RESPIRATORY: Inspiratory breath sounds are of normal intensity in all arana. No rales, wheezes or rhonchi. CARDIOVASCULAR: Rhythm is regular. ABDOMEN: The abdomen is nondistended. Extremities: No swelling or edema. SKIN: No jaundice. MUSCULOSKELETAL: No muscle wasting. I have performed the physical exam today (03/18/2024) and have edited the note to correlate with current findings. 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 Diagnosed with prostate cancer after developing gross hematuria. Underwent RP in [place]. Shortly thereafter he was started on ADT and radiation. Was not able to complete therapy secondary to severe diarrhea, nausea and vomiting. Had been receiving intermittent ADT. -Significant hot flashes and mood swings with ADT. -PSA undetectable 09/2022. 0.23 ng/mL 12/13/2022. -Dr. Rahman's recommendations that: Continue to monitor PSA every 3 months. Once PSADT <6 months, start intermittent Lupron. Once he develops mCRPC, Provenge vs. Pluvicto would be indicated at that time, pending data from PSMAfore trial, which will be presented at the [employer] in 01/2023. -PSA doubling time was 2.9 months--restarted Lupron 03/14/2023. -Discussed smoking cessation don't even go there -Again discussed the strategy of intermittent ADT. -Testosterone lower and PSA remains lower as well so will hold Lupron for now. -Discussed PSA doubling time and recommendation to restart ADT, reviewed risks and benefits. He declines resuming Lupron as it was poorly tolerated d/t fatigue, lack of energy, weakness, mood swings. Plan: -Recommend resuming ADT for rising PSA. Pt declines -Will plan for PSMA PET, PSA and follow up with Dr. Jung in 3 months to review. -Follow up with PCP for other health issues. Kavon Nino APRN.TOOL GRINDER SET UP OPERATOR GEAR I spent a total of 30 minutes on the date of the service which included preparing to see the patient, [id number] patient care, completing clinical documentation, obtaining and/or reviewing separately obtained history, counseling and educating the patient/family/caregiver, and ordering medications, tests, or procedures. Portions of this note including HPI, ROS, impression/plan may have been copied forward as to provide important historical information essential in contributing to medical decision making. Documentation has been reviewed and edited as necessary to support clinical decision making for today's visit and to reflect my own independent evaluation of this patient. documented in this encounter [facility] 03-12-2024 Telephone encounter Note Called patient and got his appointment with Kavon Nino to [facility] 03-12-2024 Miscellaneous Notes Called patient and got his appointment with Kavon Nino to [facility] Called pt to remind him that he needed to get his PSA drawn prior to his upcoming apt with Ankit Nino APRN. Spoke to . states pt needs apt rescheduled. Please contact pt to reschedule lab and apt. He can have his labs in [place] if he wishes. Chelsea Cazares LPN documented in this encounter [facility] 03-12-2024 Telephone encounter Note Called pt to remind him that he needed to get his PSA drawn prior to his upcoming apt with Ankit Nino APRN. Spoke to . states pt needs apt rescheduled. Please contact pt to reschedule lab and apt. He can have his labs in [place] if he wishes. Chelsea Cazares LPN [facility] 03-11-2024 Telephone encounter Note Procedure(s) being scheduled: ILESI 1.Are you diabetic No 2. Are you on any blood thinners? No 3. Are you taking any aspirin? Yes. Please list the current medications being prescribed 81mg aspirin. 4. Are you currently taking any antibiotics? No 5. Do you have any allergies to latex? No 6. Do you have any allergies to seafood or shellfish? No 7. Do you have any allergies to x-ray dye? No 8. Does this procedure require a delivery route driver? Yes If yes, has patient been notified that a delivery route driver is needed and must be present at check in? yes 9. Were the pre-procedure instructions explained and provided to the patient? No 10. Do you have a pacemaker? No 11. Do you have an internal stimulator of any kind? No Dominic Yuan [facility] 03-11-2024 Miscellaneous Notes Procedure(s) being scheduled: ILESI 1.Are you diabetic No 2. Are you on any blood thinners? No 3. Are you taking any aspirin? Yes. Please list the current medications being prescribed 81mg aspirin. 4. Are you currently taking any antibiotics? No 5. Do you have any allergies to latex? No 6. Do you have any allergies to seafood or shellfish? No 7. Do you have any allergies to x-ray dye? No 8. Does this procedure require a delivery route driver? Yes If yes, has patient been notified that a delivery route driver is needed and must be present at check in? yes 9. Were the pre-procedure instructions explained and provided to the patient? No 10. Do you have a pacemaker? No 11. Do you have an internal stimulator of any kind? No Dominic Yuan documented in this encounter [facility] 03-11-2024 History of Present illness Narrative Images from the original note were not included. [facility] Today's Date: 03/11/2024 Name: Luis Angel Aguila : 1955 Purpose: New Patient Evaluation Chief complaint: hip pain and back pain Referring Clinician: Self Pertinent Past Medical History: Hypertension (HTN), Hyperlipidemia (HLD), COPD , Gastroesophageal Reflux Disease (GERD), Ileus (11/2022), 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 node, OA multiple joints, Nicotine use disorder, Pertinent Past Surgeries: Cervical fusion, Bilat shoulder surgery Plan at last visit: (Seen on 07/18/2023 by Alina Bryson CNP) Medications: Requested Prescriptions Signed Prescriptions Disp Refills cyclobenzaprine (FLEXERIL) 10 mg tablet 30 tablet 2 Sig: Take 1 tablet by mouth as directed. 1/2 to 1 tablet po qhs as needed for spasm Interventional Procedures: NONE Studies: MRI: Lumbar Spine was reviewed pt states understanding. Functional Taoism: Continue home exercises from Chiropractics Referrals: No additional considerations at present Follow-up: 2 months Depending on response to the above plan, consider: Right GT bursa injection and/or TPI In terval History: Overall pain and functional disability since last visit: Unchanged New Complaints since last visit: No Pain Description: Timing: Constant Character: Aching Primary Location: low back Radiation: down the back of his legs into his feet, states his toes are falling asleep Exacerbating factors: walking Relieving factors: sitting Interferes with: physical activity and walking The patient reports numbness or tingling Patient is here today to review the results of his MRI of his lumbar spine. Patient states he continues to have low back pain with radicular symptoms down his legs. Patient stating the pain is interfering with his activity of daily living on a daily basis. Patient stating he has recently had an elevation in his PSI and is going to have a another PET scan. Patient is states that he was taking Lyrica he ran out he did not think it did help to a point with his pain. Current Pain Medications: Neuropathics: lyrica NSAIDS: Muscle Relaxants: Topicals: Other Prescription or OTC Pain Medications: tylenol Opioids (when applicable): Anti-depressants or Mood-Stabilizers: None Anti-Coagulants: None Therapies Attended (Current or Most Recent): No Current Therapies 05/01/2023 03/11/2024 AG SPINE COMBINATION Questionnaire GREENLIGHT Completed Date 05/01/2023 Questionnaire Opiod Risk Tool Opiod Risk Tool Completed Date 05/01/2023 03/11/2024 Comments Low Risk 0 - Low Risk Opioid Risk Tool Opiod Risk Tool Date Completed 03/11/2024 Comments 0 - Low Risk (All drug screens are appropriate unless indicated otherwise) No table Events During Course of Treatment: Interval History: Overall pain and functional disability since last visit: Better New Complaints since last visit: No PAIN DESCRIPTION: Timing: Intermittent Character: Aching, Primary Location: axial low back Radiation: bilateral buttocks and bilateral proximal lateral hips Exacerbating factors: Standing, Walking more than 2 minutes 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 05/01/2023 03/11/2024 AG SPINE COMBINATION Questionnaire GREENLIGHT Completed Date 05/01/2023 Questionnaire Opiod Risk Tool Opiod Risk Tool Completed Date 05/01/2023 03/11/2024 Comments Low Risk 0 - Low Risk Opioid Risk Tool Opiod Risk Tool Date Completed 03/11/2024 Comments 0 - Low Risk (All drug screens are appropriate unless indicated otherwise) No table Events During Course of Treatment: History of Present Illness (HPI): 04/29/2023 - Initial HPI (Obtained by Hector Ritchie M.D.). DURATION AND ONSET: The pain complaint has been present for approximately many years. The pain had a gradual onset. The mechanism of injury is unknown. He reports he has had years of low back pain, but that the past 4-5 years, he has had worsening pain. He reports that he was told that radiation may have damaged the lumbar discs. He was 6'2 at one point, now is 5'9. He had radiation therapy for Prostate cancer in 2021, cancer returned, now using Lupron injections. RED FLAG SYMPTOMS: difficulty with bowel or bladder control. Treatment History: PAIN PROCEDURES: DATE PROCEDURE IMPROVEMENT 07/16/2023 B/L RFA L4-S1 To soon to tell. MEDICATIONS Taken TO DATE (for the chief complaint(s)): Neuropathics: Neurontin (Gabapentin) NSAIDS: Mobic (Meloxicam) Muscle Relaxants: None Topicals: None Other Prescription or OTC Pain Medications: Aspirin Opioids: None Data Reviewed Today: Allergies: ALLERGIES Allergen Reactions Morphine Rash, Itching Prednisone Mental Status Change Social History Tobacco Use Smoking status: Every Day Current packs/day: 1.00 Average packs/day: 1 pack/day for 55.0 years (55.0 ttl pk-yrs) Types: Cigarettes Smokeless tobacco: Never Tobacco comments: Pt has cut back to 1/2 pack daily. Vaping Use Vaping status: Never Used Substance Use Topics Alcohol use: Yes Comment: occasionaly Drug use: Never 03/01/2024 03/10/2024 INTAKE PAIN ASSESSMENT Are you having pain associated with your visit today? No Yes, Provider notified Pain Level 7 8 Pain Location Back-Lower Description Aching;Numbness;Pressure;Radiating;Sha rp;Shooting;Sore;Spasm;Stabbing;Stiffn ess;Tenderness;Throbbing;Tightness Duration Amount of Time 12 Duration Units Hours Frequency Continuous Intervention/Comfort measure Medication;Positioning Compliance: PDMP website checked and validated on 03/11/2024 by Alina Bryson APRN.TOOL GRINDER SET UP OPERATOR GEAR All prescriptions have been APPROPRIATELY filled. No suspicious activity was identified. Tramadol 50mg, #12 (11/14/2022) 05/01/2023 03/11/2024 AG SPINE COMBINATION Questionnaire GREENLIGHT Completed Date 05/01/2023 Questionnaire Opiod Risk Tool Opiod Risk Tool Completed Date 05/01/2023 03/11/2024 Comments Low Risk 0 - Low Risk (All drug screens are appropriate unless indicated otherwise) Risk Assessment: LAST-7: 05/01/2023 LAST - 7 SCORES Score 0 (0-4) minimal anxiety, (5-9) mild anxiety, (10-14) moderate anxiety, (15-21) severe anxiety PHQ-9: 05/01/2023 PHQ-9 Score 1 (0-4) minimal depression, (5-9) mild depression, (10-14) moderate depression, (15-19) moderately severe depression, (20-27) severe depression Opioid Risk Tool: Family History of Substance Abuse: Yes Alcohol: 1 -Female Personal History of Substance Abuse: 0 - No Age between 16-45: 0 - No History of Pre-Adolescence Sexual Abuse: 0 - No Psychological Disease: 0 - No Risk Total: 1 Total Score Risk Category: Low Risk 0-3 (0-3, low risk or no risk; 4-7, moderate risk, 8+, high risk) Diagnostic Studies: Relevant Imaging: MRI Spine Report MRI LUMBAR SPINE WO IVCON Exam End: 05/27/2023 9:29 AM (Final result) Narrative: * * *Final Report* * * DATE OF EXAM: May 27 2023 9:00AM [facility] [id number] - MRI LUMBAR SPINE WO IVCON / PROCEDURE REASON: multiple diagnoses * * * * Physician Interpretation * * * * EXAMINATION: MRI LUMBAR SPINE WO IVCON CLINICAL HISTORY: Chronic bilateral low back pain, unspecified whether sciatica present. Failed NSAIDS for three months. TECHNIQUE: Routine lumbosacral spine MR protocol without gadolinium. MQ: [id number] COMPARISON: None. RESULT: Counting reference: Lumbosacral junction. For the purposes of this report, L4-5 is considered the level of the iliac crest and assume there are 5 lumbar-type vertebrae. Anatomic variant: None. Localizer images: T2 hyperintense presumed renal cysts. Alignment: Levoscoliosis, apex L3-L4. Bone marrow signal/fracture: No evidence of pathologic marrow infiltration. No evidence of prior fracture. Multilevel scattered predominantly type I endplate marrow degenerative signal changes most notably at L1-L2, L4-L5 and L5-S1. Conus: The conus is within normal limits of signal intensity and morphology. Paraspinal soft tissues: Paraspinal soft tissues are within normal limits. Lower thoracic spine: Visualized lower thoracic canal and foramina are patent. L1-L2: Mild spinal canal stenosis secondary disc osteophyte complex. Minimal degenerative facet arthrosis. Mild left and no significant right foraminal stenosis. L2-L3: Mild spinal canal stenosis secondary to right eccentric disc osteophyte complex. Mild to moderate right subarticular recess effacement. Mild degenerative facet arthrosis. Moderate left and mild right foraminal stenosis. L3-L4: Mild spinal canal stenosis secondary disc bulging and dorsal osteophytic endplate spurring. Right subarticular superimposed extrusion with caudal extension effacing the right subarticular zone and contacting/minimally impinging upon the traversing right L4 nerve root. Moderate degenerative facet arthrosis. Moderate right and mild left foraminal stenosis. L4-L5: Mild spinal canal stenosis secondary disc bulging and dorsal osteophytic endplate spurring. Moderate degenerative facet arthrosis. Mild left subarticular recess effacement. Moderate right and mild left foraminal stenosis. L5-S1: Mild spinal canal stenosis secondary disc bulging and dorsal osteophytic endplate spurring. Moderate degenerative facet arthrosis. Severe bilateral foraminal stenosis. Sacrum and iliac wings: Edema in both sacral ala which may be reflective of acute subacute sacral insufficiency fractures. Impression: IMPRESSION: Lumbar spondylosis and scoliosis with multiple levels of mild spinal canal stenosis. Moderate right subarticular recess effacement at L3-L4 secondary to small caudally directed extrusion. No high-grade spinal canal stenosis. Up to severe bilateral foraminal stenosis at L5-S1. Left greater than right sacral edema, suspicious of bilateral acute to subacute sacral insufficiency fractures. Anatomic Lumbar Variant: None. L4-5 is considered the level of the iliac crest and assume there are 5 lumbar-type vertebrae. Header Operator: PSCB Transcribe Date/Time: May 27 2023 9:49A Dictated by : SALAZAR HOFFMAN DO This examination was interpreted and the report reviewed and electronically signed by: SALAZAR HOFFMAN DO on May 27 2023 9:56AM EST X-ray Bilat. Hip / Lumbar 03/2023 RESULT: 5 nonrib-bearing lumbar-type vertebrae. For numbering purposes, L4-5 is at the level of the iliac crest. Severe disc space narrowing and multilevel vacuum phenomenon from L1 through S1. No acute fracture or focal bony abnormality. Degenerative change involving the posterior elements from L4 through S1. Levoscoliosis of 22 degrees as measured from inferior L1 to superior L4. AP pelvis and 2 coned-down views of each hip show mild degenerative change. No significant joint space narrowing. No fracture or focal bony abnormality. Normal mineralization and alignment. SI joints are Unremarkable IMPRESSION: DEGENERATIVE CHANGE AND ALIGNMENT ABNORMALITIES WITHIN THE LUMBAR SPINE DESCRIBED. MILD DEGENERATIVE CHANGE INVOLVING BOTH HIPS. Electrodiagnostic Study (EMG): None Recent Labs: Creatinine Date Value Ref Range Status 06/06/2023 0.84 0.73 - 1.22 mg/dL Final No results found for: EGFR No results found for: PCGLUCOSE Current Medications, Past Medical History, Past Surgical History, Family History, Social History and Review of Systems: On today's date, noted above, I have confirmed and edited as necessary, the PFSH and ROS obtained by others. Physical Exam Vitals reviewed. Constitutional: General: He is not in acute distress. Appearance: He is not ill-appearing. HENT: Head: Normocephalic and atraumatic. Eyes: Conjunctiva/sclera: Conjunctivae normal. Cardiovascular: Pulses: Normal pulses. Pulmonary: Effort: Pulmonary effort is normal. No respiratory distress. Musculoskeletal: Thoracic back: No tenderness or bony tenderness. No scoliosis. Lumbar back: Spasms and tenderness present. Decreased range of motion. Positive right straight leg raise test and positive left straight leg raise test. No scoliosis. Right hip: Tenderness (pain elicited with light palpation to right GT region) present. Decreased range of motion. Left hip: Tenderness present. Comments: Hip Flexion: Right- 5/5; Left- 5/5 Knee Extension: Right- 5/5; Left- 5/5 Dorsiflexion: Right- 5/5; Left- 5/5 Plantarflexion: Right- 5/5; Left- 5/5 Special Tests- Facet Loading: Right-Positive ; Left Positive SI Compression:Negative ISAAC:Right-Positive; Left Positive Skin: General: Skin is warm and dry. Neurological: Mental Status: He is alert and oriented to person, place, and time. Gait: Gait and tandem walk normal. Deep Tendon Reflexes: Reflexes are normal and symmetric. Reflex Scores: Patellar reflexes are 2+ on the right side and 2+ on the left side. Psychiatric: Mood and Affect: Mood and affect normal. Behavior: Behavior normal. Behavior is cooperative. IMPRESSION: 69 year old male presents with complaint(s) of Low back pain with radicular symptoms. I reviewed the MRI with the lumbar spine with the patient at this point we will attempt to do an interlaminar epidural steroid injection at L5-S1. Patient is in agreement with this plan. We will also continue Lyrica however will increase it from 75 mg twice daily to 100 mg twice daily to see if the patient gets better relief. Diagnoses: (M48.062) Spinal stenosis of lumbar region with neurogenic claudication (primary encounter diagnosis) (M47.816) Lumbar spondylosis (M16.0) Primary osteoarthritis of both hips (M54.50, G89.29) Chronic bilateral low back pain, unspecified whether sciatica present PLAN: Luis Angel Aguila would benefit from the following to reach personal goals for decreasing pain, improving function and work participation, and/or improving quality of life: Medications: Requested Prescriptions Signed Prescriptions Disp Refills pregabalin (LYRICA) 100 mg capsule 60 capsule 2 Sig: Take 1 capsule by mouth two times a day for 90 days. Interventional Procedures: Epidural Steroid Injection - Interlaminar Approach (ILESI) under fluoroscopic guidance NONE at L5-S1 Radio Recorder Needed: Epidural - YES Anticoagulant - Hold Needed: N/A (Not currently on Anticoagulants) Anticoagulant - Currently Taking: None Allergies (relevant): None Scheduling - Mobility (Can Patient independently transfer on/off an OR or Procedure table?): YES (May schedule at any location) Scheduling - Additional Info: None Studies: MRI: Lumbar Spine was reviewed pt states understanding. Functional Taoism: Continue home exercises from Chiropractics Referrals: No additional considerations at present Follow-up:1 month after injection Depending on response to the above plan, consider: Right GT bursa injection and/or TPI Attribution: In addition to reviewing the information noted above, some elements copied from my most recent clinical note(s), including the physical exam (completed in entirety today), and the impression and plan sections, have been updated where appropriate. All reflect current medical decision making from today's date. Alina Bryson APRN.[facility] Review of Systems Constitutional: Negative for activity change, chills, fever and unexpected weight change. Gastrointestinal: Negative for bowel retention or incontinence Genitourinary: Negative for difficulty urinating. Negative for bladder retention or incontinence Musculoskeletal: Positive for arthralgias, back pain, gait problem, joint swelling, myalgias, neck pain and neck stiffness. Neurological: Positive for weakness and numbness. Negative for headaches. Psychiatric/Behavioral: Negative for dysphoric mood, sleep disturbance and suicidal ideas. The patient is not nervous/anxious. documented in this encounter [facility] 03-11-2024 Note HNO ID: [id number] Author: ALINA BRYSON APRN.CNP Service: ? Author Type: Nurse Practitioner Type: Progress Notes Filed: 03/11/2024 16:31 Note Text: [facility] Today's Date: 03/11/2024 Name: Luis Angel Aguila : 1955 Purpose: New Patient Evaluation Chief complaint: hip pain and back pain Referring Clinician: Self Pertinent Past Medical History: Hypertension (HTN), Hyperlipidemia (HLD), COPD , Gastroesophageal Reflux Disease (GERD), Ileus (11/2022), 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 node, OA multiple joints, Nicotine use disorder, Pertinent Past Surgeries: Cervical fusion, Bilat shoulder surgery Plan at last visit: (Seen on 07/18/2023 by Alina Bryson CNP) Medications: Requested Prescriptions Signed Prescriptions Disp Refills cyclobenzaprine (FLEXERIL) 10 mg tablet 30 tablet 2 Sig: Take 1 tablet by mouth as directed. /2 to 1 tablet po qhs as needed for spasm Interventional Procedures: NONE Studies: MRI: Lumbar Spine was reviewed pt states understanding. Functional Taoism: Continue home exercises from Chiropractics Referrals: No additional considerations at present Follow-up: 2 months Depending on response to the above plan, consider: Right GT bursa injection and/or TPI Interval History: Overall pain and functional disability since last visit: Unchanged New Complaints since last visit: No Pain Description: Timing: Constant Character: Aching Primary Location: low back Radiation: down the back of his legs into his feet, states his toes are falling asleep Exacerbating factors: walking Relieving factors: sitting Interferes with: physical activity and walking The patient reports numbness or tingling Patient is here today to review the results of his MRI of his lumbar spine. Patient states he continues to have low back pain with radicular symptoms down his legs. Patient stating the pain is interfering with his activity of daily living on a daily basis. Patient stating he has recently had an elevation in his PSI and is going to have a another PET scan. Patient is states that he was taking Lyrica he ran out he did not think it did help to a point with his pain. Current Pain Medications: Neuropathics: lyrica NSAIDS: Muscle Relaxants: Topicals: Other Prescription or OTC Pain Medications: tylenol Opioids (when applicable): Anti-depressants or Mood-Stabilizers: None Anti-Coagulants: None Therapies Attended (Current or Most Recent): No Current Therapies 05/01/2023 03/11/2024 AG SPINE COMBINATION Questionnaire GREENLIGHT Completed Date 05/01/2023 Questionnaire Opiod Risk Tool Opiod Risk Tool Completed Date 05/01/2023 03/11/2024 Comments Low Risk 0 - Low Risk Opioid Risk Tool Opiod Risk Tool Date Completed 03/11/2024 Comments 0 - Low Risk (All drug screens are appropriate unless indicated otherwise) Notable Events During Course of Treatment: Interval History: Overall pain and functional disability since last visit: Better New Complaints since last visit: No PAIN DESCRIPTION: Timing: Intermittent Character: Aching, Primary Location: axial low back Radiation: bilateral buttocks and bilateral proximal lateral hips Exacerbating factors: Standing, Walking more than 2 minutes 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 05/01/2023 03/11/2024 AG SPINE COMBINATION Questionnaire GREENLIGHT Completed Date 05/01/2023 Questionnaire Opiod Risk Tool Opiod Risk Tool Completed Date 05/01/2023 03/11/2024 Comments Low Risk 0 - Low Risk Opioid Risk Tool Opiod Risk Tool Date Completed 03/11/2024 Comments 0 - Low Risk (All drug screens are appropriate unless indicated otherwise) Notable Events During Course of Treatment: History of Present Illness (HPI): 04/29/2023 - Initial HPI (Obtained by Hector Ritchie M.D.). DURATION AND ONSET: The pain complaint has been present for approximately many years. The pain had a gradual onset. The mechanism of injury is unknown. He reports he has had years of low back pain, but that the past 4-5 years, he has had worsening pain. He reports that he was told that radiation may have damaged the lumbar discs. He was 6'2 at one point, now is 5'9. He had radiation therapy for Prostate cancer in 2021, cancer returned, now us (more content not included)... [facility] 03-11-2024 Note HNO ID: [id number] Author: AMNA WHITE MA Service: ? Author Type: Bakery Technician Type: Progress Notes Filed: 03/11/2024 16:31 Note Text: Review of Systems Constitutional: Negative for activity change, chills, fever and unexpected weight change. Gastrointestinal: Negative for bowel retention or incontinence Genitourinary: Negative for difficulty urinating. Negative for bladder retention or incontinence Musculoskeletal: Positive for arthralgias, back pain, gait problem, joint swelling, myalgias, neck pain and neck stiffness. Neurological: Positive for weakness and numbness. Negative for headaches. Psychiatric/Behavioral: Negative for dysphoric mood, sleep disturbance and suicidal ideas. The patient is not nervous/anxious. [facility] 03-09-2024 Telephone encounter Note Patient has been scheduled. Dominic Yuan [facility] 03-09-2024 Miscellaneous Notes Patient has been scheduled. Dominic Yuan documented in this encounter [facility] 03-08-2024 History of Present illness Narrative Patient ID: Luis Angel Aguila is a 69 y.o. male. Diagnosis: metastatic PC HISTORY OF PRESENT ILLNESS: 67 yo man visiting from [place] (Dr. Luis Escobedo) here for prostate cancer: H/o htn, oa, mild COPD. 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 12/[address] 01/25 biopsy with grade group 3 prostate adenocarcinoma Bone scan neg 04/20/21 Prostatectomy grade group 2, inv seminal vesicles bilat, extraprostatic extension, PNI/LVI, positive surgical margin, [address] pos - [id number] ([place] 3+4) Post op PSA 18 05/29/21 - PSMA - LN +. / no distant disease. back to OR for vesicoureteral anastomosis for leak 06/2021 Lupron 22.5 mg x 2 - stopped d/t patient preference along with apalutamide - stopped d/t constipation and brain fog 11/07/21 - 12/07/21 EBRT whole pelvis and prostate bed boost - aborted early during third week d/t bowel toxicity (severe diarrhea, c diff neg, nausea and poor by mouth intake) (patients decision) Pt has been on intermittent ADT 03/14/23 - ADT locally 11/10/23 - negative FDG PET. PSA low with ADT. discontinue ADT per pt preference 03/08/24 - Observation PSA 03/05/24 - 0.33 -- T 648 12/12/23 - 0.06 -- T 137 11/06/23 - 0.02 -- T 6 09/12/23 - 0.03 -- T < 12 06/13/23 - 0.03 03/10/23 - 0.45 -- T 883 02/06/23 - 0.37 OBJECTIVE: VS / Pain: There were no vitals taken for this visit. BSA: There is no height or weight on file to calculate BSA. Performance Status: ECOG Score: 0- Fully active, able to carry on all pre-disease performance w/o restriction. Assessment/Plan I personally saw patient and counselled all visit on his diagnosis, kamilla history and coordination of his care. This is a 69 y.o. male man known with LN+ PC on ADT (d/c zytiga/pred and apa s/t AEs) with T > 50 and low PSA and negative recent PSMA (June 2022). He had incomplete salvage XRT but aborted s/t bowel tox. He is discontinuing ADT per pt preference - understands R/A of this decision. He was found with some lung abn, but PET was negative and bronch results negative. He is smoker. CPM with labs in 3 months We discussed the clinical significance of diagnosis, goals of care and treatment plan in detail. Thank you for the opportunity to be involved in the care of Luis Angel Aguila. Please do not hesitate to reach out with any questions. Thank you. Rodolfo Ariza MD, Msc, [facility] Chair in Cancer Research Co-Leader Genitourinary () Disease Team Director of Medical Oncology Research Program [facility] sports information director [address] [place] [address] [email or web address] documented in this encounter [facility] Work Phone: 03-01-2024 Telephone encounter Note Pt returned call and given provider's message below with verbalized understanding. [facility] 03-01-2024 Miscellaneous Notes Pt returned call and given provider's message below with verbalized understanding. Left a message for pt to call the office and ask to speak to a nurse. Lorraine Green LPN ----- Message from Naima Sinha APRN.TOOL GRINDER SET UP OPERATOR GEAR sent at 03/01/2024 3:10 PM EST ----- No acute abnormality on chest xray. Naima Sinha APRN.TOOL GRINDER SET UP OPERATOR GEAR documented in this encounter [facility] 03-01-2024 Telephone encounter Note Left a message for pt to call the office and ask to speak to a nurse. Lorraine Green LPN [facility] 03-01-2024 Telephone encounter Note ----- Message from Naima Sinha APRN.TOOL GRINDER SET UP OPERATOR GEAR sent at 03/01/2024 3:10 PM EST ----- No acute abnormality on chest xray. Naima Sinha APRN.TOOL GRINDER SET UP OPERATOR GEAR [facility] 03-01-2024 History of Present illness Narrative Radiology Service Progress Note PATIENT NAME: Luis Angel Aguila DATE OF SERVICE: March 01, 2024 TIME: 4:02 PM PATIENT IDENTITY VERIFICATION COMPLETED USING TWO (2) IDENTIFIERS: Name and Date of confirmed by patient verbally. FALL SCREENING: Has the patient had 2 falls in the last year or 1 fall with injury or currently using an Ambulatory Assistive Device (Walker, Cane, Wheelchair, Crutches, etc.)? No PATIENT GENDER DATA: Male PATIENT RELEVANT IMPLANT DATA REVIEWED: Not Applicable PATIENT PRESENTS WITH AN IMPLANTABLE OR ATTACHED WIND TURBINE PERFORMANCE ENGINEER: No RADIOLOGY DEPARTMENT: General X-ray: Exam(s) Completed: Chest X-Ray PERIPHERAL IV DATA: Not applicable SIGNED BY: RT Hannah(R) March 01, 2024 4:02 PM documented in this encounter [facility] 03-01-2024 Note HNO ID: [id number] Author: KATHARINA GARCIA RT(R) Service: ? Author Type: Technologist Type: Progress Notes Filed: 03/01/2024 16:03 Note Text: Radiology Service Progress Note PATIENT NAME: Luis Angel Aguila DATE OF SERVICE: March 01, 2024 TIME: 4:02 PM PATIENT IDENTITY VERIFICATION COMPLETED USING TWO (2) IDENTIFIERS: Name and Date of confirmed by patient verbally. FALL SCREENING: Has the patient had 2 falls in the last year or 1 fall with injury or currently using an Ambulatory Assistive Device (Walker, Cane, Wheelchair, Crutches, etc.)? No PATIENT GENDER DATA: Male PATIENT RELEVANT IMPLANT DATA REVIEWED: Not Applicable PATIENT PRESENTS WITH AN IMPLANTABLE OR ATTACHED WIND TURBINE PERFORMANCE ENGINEER: No RADIOLOGY DEPARTMENT: General X-ray: Exam(s) Completed: Chest X-Ray PERIPHERAL IV DATA: Not applicable SIGNED BY: RT Hannah(R) March 01, 2024 4:02 PM [facility] 03-01-2024 Telephone encounter Note Please schedule an in person office visit. He has not been seen in almost a year in person. Once he is scheduled we can send in a bridge prescription Cassandra Domínguez APRN.CNP [facility] Work Phone: 03-01-2024 Miscellaneous Notes Please schedule an in person office visit. He has not been seen in almost a year in person. Once he is scheduled we can send in a bridge prescription Cassandra Domínguez APRN.CNP [facility] [employer] message requesting the following refill: Refill(s) Requested: Requested Prescriptions Pending Prescriptions Disp Refills pregabalin (LYRICA) 75 mg capsule 60 capsule 5 Sig: Take one pill twice daily ALLERGIES Allergen Reactions Morphine Rash, Itching Prednisone Mental Status Change (home) [phone] (cell) Last Office Visit Date: 07/18/2023 Last Distance Health Visit: Visit date not found Future Appointment: Visit date not found Provider: Hector Ritchie MD The patients preferred pharmacy has been captured for this encounter? not asked Request is for script(s) to be escript to pharmacy. Specialty Problems None Grace Leo LPN March 01, 2024 12:09 PM documented in this encounter [facility] 03-01-2024 Telephone encounter Note [facility] [employer] message requesting the following refill: Refill(s) Requested: Requested Prescriptions Pending Prescriptions Disp Refills pregabalin (LYRICA) 75 mg capsule 60 capsule 5 Sig: Take one pill twice daily ALLERGIES Allergen Reactions Morphine Rash, Itching Prednisone Mental Status Change (home) [phone] (cell) Last Office Visit Date: 07/18/2023 Last Distance Health Visit: Visit date not found Future Appointment: Visit date not found Provider: Hector Ritchie MD The patients preferred pharmacy has been captured for this encounter? not asked Request is for script(s) to be escript to pharmacy. Specialty Problems None Grace Leo LPN March 01, 2024 12:09 PM [facility] 03-01-2024 Telephone encounter Note Please review message from Kat regarding pt's Lyrica. Currently PCP's office does not fill pt's Lyrica this comes from Pain Mgmt. Are you wanting to fill this? I have pended refills for medications on list that are due/past due for refills. Prescription Refill Information The patient has been identified by name and date of : Yes Caregiver verified no other encounters exist for this prescription request: Yes Caregiver confirmed with patient/requestor that no other refills are due, in the near future, with this provider at this time: Yes The last office visit in the department: March 01, 2024 Does the patient have a future office visit with this provider/department: No Requested Prescriptions Pending Prescriptions Disp Refills albuterol HFA (VENTOLIN HFA) 90 mcg/actuation inhaler 1 Each 5 Sig: Inhale 2 Puffs as instructed every 4 hours as needed for wheezing/shortness of breath. atenolol (TENORMIN) 50 mg tablet 90 tablet 1 Sig: Take one tablet daily along with 25 mg tablet to equal 75 mg daily atorvastatin (LIPITOR) 40 mg tablet 90 tablet 1 Sig: Take 1 tablet by mouth daily at bedtime. For cholesterol. lisinopril (ZESTRIL) 40 mg tablet 90 tablet 1 Sig: Take 1 tablet by mouth once daily. omeprazole (PRILOSEC) 40 mg capsule 180 capsule 0 Sig: Take 1 capsule by mouth two times a day. tiotropium-olodaterol (STIOLTO RESPIMAT) 2.5-2.5 mcg/actuation inhaler 3 Each 1 Sig: Inhale 2 Puffs as instructed once daily. Maty Raza MA March 01, 2024 10:26 AM [facility] 03-01-2024 Miscellaneous Notes Please review message from Kat regarding pt's Lyrica. Currently PCP's office does not fill pt's Lyrica this comes from Pain Mgmt. Are you wanting to fill this? I have pended refills for medications on list that are due/past due for refills. Prescription Refill Information The patient has been identified by name and date of : Yes Caregiver verified no other encounters exist for this prescription request: Yes Caregiver confirmed with patient/requestor that no other refills are due, in the near future, with this provider at this time: Yes The last office visit in the department: March 01, 2024 Does the patient have a future office visit with this provider/department: No Requested Prescriptions Pending Prescriptions Disp Refills albuterol HFA (VENTOLIN HFA) 90 mcg/actuation inhaler 1 Each 5 Sig: Inhale 2 Puffs as instructed every 4 hours as needed for wheezing/shortness of breath. atenolol (TENORMIN) 50 mg tablet 90 tablet 1 Sig: Take one tablet daily along with 25 mg tablet to equal 75 mg daily atorvastatin (LIPITOR) 40 mg tablet 90 tablet 1 Sig: Take 1 tablet by mouth daily at bedtime. For cholesterol. lisinopril (ZESTRIL) 40 mg tablet 90 tablet 1 Sig: Take 1 tablet by mouth once daily. omeprazole (PRILOSEC) 40 mg capsule 180 capsule 0 Sig: Take 1 capsule by mouth two times a day. tiotropium-olodaterol (STIOLTO RESPIMAT) 2.5-2.5 mcg/actuation inhaler 3 Each 1 Sig: Inhale 2 Puffs as instructed once daily. Maty Raza MA March 01, 2024 10:26 AM documented in this encounter [facility] 03-01-2024 Note HNO ID: [id number] Author: NAIMA SINHA APRN.TOOL GRINDER SET UP OPERATOR GEAR Service: ? Author Type: Nurse Practitioner Type: Progress Notes Filed: 03/01/2024 08:25 Note Text: 03/01/2024 Patient presents with: Cough: Spitting up yellow phlegm SUBJECTIVE: This is a 69 year old that is here today for Above Complaints.. For the past two weeks has had productive cough. Started on his way back from [place] on plane right. Using albuterol inhaler once a day when he remembers. Negative COVID-19 test about one week ago. Admits he thinks he had a fever around that time. Admits to SOB, wheezing, muscle aches, rhinorrhea, sore throat, nasal congestion- which have improved. Continues to smoke of pack a day.Taking Nyquil, Dayquil and Mucinex. 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 atenolol (TENORMIN) 25 mg tablet Take one tablet daily along with 50 mg to equal 75 mg daily atenolol (TENORMIN) 50 mg tablet Take one tablet daily along with 25 mg tablet to equal 75 mg daily cyclobenzaprine (FLEXERIL) 10 mg tablet Take 1 tablet by mouth as directed. 1/2 to 1 tablet po qhs as needed for spasm acetaminophen (TYLENOL EXTRA STRENGTH) 500 mg tablet Take 1,000 mg by mouth every 8 hours as needed. atorvastatin (LIPITOR) 40 mg tablet Take 1 tablet by mouth daily at bedtime. For cholesterol. lisinopril (ZESTRIL) 40 mg tablet Take 1 tablet by mouth once daily. pregabalin (LYRICA) 75 mg capsule Take one pill twice daily omeprazole (PRILOSEC) 40 mg capsule Take 1 capsule by mouth two times a day. tiotropium-olodaterol (STIOLTO RESPIMAT) 2.5-2.5 mcg/actuation Inhale 2 Puffs as instructed once daily. albuterol HFA (VENTOLIN HFA) 90 mcg/actuation inhaler Inhale 2 Puffs as instructed every 4 hours as needed for wheezing/shortness of breath. aspirin, enteric coated (ASPIRIN, ENTERIC COATED) 81 mg EC tablet Take 81 mg by mouth once daily. docusate sodium (STOOL SOFTENER) 100 mg capsule Take 100 mg by mouth twice daily. cholecalciferol (VITAMIN D-3) 50 mcg (2,000 unit) tablet Take 2,000 Units by mouth once daily. beta-carotene,A,-vits C,E/mins (OCUVITE ORAL) Take 1 tablet by mouth once daily. calcium carbonate (CALCIUM 600 ORAL) Take 1 tablet by mouth once daily. Multivitamin capsule Take 1 capsule by mouth once daily. No current facility-administered medications for this visit. Medications and allergies reviewed by this provider. SOCIAL HISTORY Social History Tobacco Use Smoking status: Every Day Current packs/day: 1.00 Average packs/day: 1 pack/day for 55.0 years (55.0 ttl pk-yrs) Types: Cigarettes Smokeless tobacco: Never Tobacco comments: Pt has cut back to 1/2 pack daily. Vaping Use Vaping status: Never Used Substance Use Topics Alcohol use: Yes Comment: occasionaly Drug use: Never REVIEW OF SYSTEMS All other reviewed and negative other than HPI. OBJECTIVE: BP 126/82 Pulse 64 Temp 36.4 ?C (97.5 ?F) Resp 18 Wt 82.1 kg (181 lb) SpO2 95% BMI 26.21 kg/m? . Vital signs reviewed by this provider. APPEARANCE Well appearing, alert, in no acute distress, well-hydrated, well nourished. EYES conjunctiva and sclera normal. EARS External ears normal, canals clear THROAT normal, no erythema NECK Supple, no adenopathy; thyroid symmetric, normal size, no bruits HEART RRR with normal S1 and S2, no murmurs, no gallops, no JVD appreciated LUNG clear to auscultation. No wheezes, rhonchi or rales SKIN Skin color, texture, turgor normal, no suspicious rashes or lesions to exposed skin Abdominal Aortic Aneurysm Screening Never done Depression Screening Never done Anxiety Screening Never done Hepatitis C Screening Never done BP Controlled (<130/80) Never done Shingrix Vaccine(1 of 2) Never done RSV Vaccine(1 - Risk 60-74 years 1-dose series) Never done Advance Directive Discussion Never done Influenza Vaccine(1) Never done Covid-19 Vaccine( season) due on 12/07/2023 Lung Cancer Screening due on 01/11/2025 Annual PCP Team Chronic Disease Visit due on 03/01/2025 Diabetes Screening due on 10/22/2026 Lipid Screening due on 12/13/2027 Colorectal Cancer Screening due on 12/13/2027 DTaP,Tdap,Td Vaccine(2 - Td or Tdap) due on 06/10/2033 Alpha-1 Antitrypsin Deficiency Screening Completed Spirometry Completed Pneumococcal Vaccine: 65+ Completed HPV Vaccine Aged Out ASSESSMENT/PLAN: 1. Acute cough - ICD9: 786.2, ICD10: R05.1 (primary diagnosis) - wi (more content not included)... [facility] 03-01-2024 History of Present illness Narrative 03/01/2024 Patient presents with: Cough: Spitting up yellow phlegm SUBJECTIVE: This is a 69 year old that is here today for Above Complaints.. For the past two weeks has had productive cough. Started on his way back from [place] on plane right. Using albuterol inhaler once a day when he remembers. Negative COVID-19 test about one week ago. Admits he thinks he had a fever around that time. Admits to SOB, wheezing, muscle aches, rhinorrhea, sore throat, nasal congestion- which have improved. Continues to smoke of pack a day.Taking Nyquil, Dayquil and Mucinex. Denies chills, dyspnea, orthopnea, nausea, vomiting or diarrhea PAST MEDICAL HISTORY Diagnosis Date COPD (chronic obstructive pulmonary disease) ([facility]) Essential hypertension GERD (gastroesophageal reflux disease) Mixed hyperlipidemia Nodule of right lung Osteoarthritis of multiple joints 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 node ([facility]) S/P prostatectomy Tobacco use disorder ALLERGIES Morphine and Prednisone MEDICATIONS Current Outpatient Medications Medication Sig famotidine (PEPCID) 40 mg tablet Take 40 mg by mouth once daily. atenolol (TENORMIN) 25 mg tablet Take one tablet daily along with 50 mg to equal 75 mg daily atenolol (TENORMIN) 50 mg tablet Take one tablet daily along with 25 mg tablet to equal 75 mg daily cyclobenzaprine (FLEXERIL) 10 mg tablet Take 1 tablet by mouth as directed. 1/2 to 1 tablet po qhs as needed for spasm acetaminophen (TYLENOL EXTRA STRENGTH) 500 mg tablet Take 1,000 mg by mouth every 8 hours as needed. atorvastatin (LIPITOR) 40 mg tablet Take 1 tablet by mouth daily at bedtime. For cholesterol. lisinopril (ZESTRIL) 40 mg tablet Take 1 tablet by mouth once daily. pregabalin (LYRICA) 75 mg capsule Take one pill twice daily omeprazole (PRILOSEC) 40 mg capsule Take 1 capsule by mouth two times a day. tiotropium-olodaterol (STIOLTO RESPIMAT) 2.5-2.5 mcg/actuation Inhale 2 Puffs as instructed once daily. albuterol HFA (VENTOLIN HFA) 90 mcg/actuation inhaler Inhale 2 Puffs as instructed every 4 hours as needed for wheezing/shortness of breath. aspirin, enteric coated (ASPIRIN, ENTERIC COATED) 81 mg EC tablet Take 81 mg by mouth once daily. docusate sodium (STOOL SOFTENER) 100 mg capsule Take 100 mg by mouth twice daily. cholecalciferol (VITAMIN D-3) 50 mcg (2,000 unit) tablet Take 2,000 Units by mouth once daily. beta-carotene,A,-vits C,E/mins (OCUVITE ORAL) Take 1 tablet by mouth once daily. calcium carbonate (CALCIUM 600 ORAL) Take 1 tablet by mouth once daily. Multivitamin capsule Take 1 capsule by mouth once daily. No current facility-administered medications for this visit. Medications and allergies reviewed by this provider. SOCIAL HISTORY Social History Tobacco Use Smoking status: Every Day Current packs/day: 1.00 Average packs/day: 1 pack/day for 55.0 years (55.0 ttl pk-yrs) Types: Cigarettes Smokeless tobacco: Never Tobacco comments: Pt has cut back to 1/2 pack daily. Vaping Use Vaping status: Never Used Substance Use Topics Alcohol use: Yes Comment: occasionaly Drug use: Never REVIEW OF SYSTEMS All other reviewed and negative other than HPI. OBJECTIVE: BP 126/82 Pulse 64 Temp 36.4 C (97.5 F) Resp 18 Wt 82.1 kg (181 lb) SpO2 95% BMI 26.21 kg/m . Vital signs reviewed by this provider. APPEARANCE Well appearing, alert, in no acute distress, well-hydrated, well nourished. EYES conjunctiva and sclera normal. EARS External ears normal, canals clear THROAT normal, no erythema NECK Supple, no adenopathy; thyroid symmetric, normal size, no bruits HEART RRR with normal S1 and S2, no murmurs, no gallops, no JVD appreciated LUNG clear to auscultation. No wheezes, rhonchi or rales SKIN Skin color, texture, turgor normal, no suspicious rashes or lesions to exposed skin Abdominal Aortic Aneurysm Screening Never done Depression Screening Never done Anxiety Screening Never done Hepatitis C Screening Never done BP Controlled (<130/80) Never done Shingrix Vaccine(1 of 2) Never done RSV Vaccine(1 - Risk 60-74 years 1-dose series) Never done Advance Directive Discussion Never done Influenza Vaccine(1) Never done Covid-19 Vaccine( season) due on 12/07/2023 Lung Cancer Screening due on 01/11/2025 Annual PCP Team Chronic Disease Visit due on 03/01/2025 Diabetes Screening due on 10/22/2026 Lipid Screening due on 12/13/2027 Colorectal Cancer Screening due on 12/13/2027 DTaP,Tdap,Td Vaccine(2 - Td or Tdap) due on 06/10/2033 Alpha-1 Antitrypsin Deficiency Screening Completed Spirometry Completed Pneumococcal Vaccine: 65+ Completed HPV Vaccine Aged Out ASSESSMENT/PLAN: 1. Acute cough - ICD9: 786.2, ICD10: R05.1 (primary diagnosis) - will treat as COPD exacerbation - no red flag symptoms or exam findings - red flag symptoms discussed, verbalizes understanding - AZITHROMYCIN 250 MG TABLET - XR CHEST 2V FRONTAL/LAT - follow-up if symptoms fail to improve to ER with red flag symptoms 2. COPD with exacerbation (HCC) - ICD9: 491.21, ICD10: J44.1 - plan as in #1 - AZITHROMYCIN 250 MG TABLET - XR CHEST 2V FRONTAL/LAT Naima Sinha APRN.JAMES Prescription instructions reviewed with patient as applicable. Patient advised if symptoms do not improve or if symptoms worsen sooner, to contact their primary care physician. Potential red flag symptoms discussed with the patient. Reviewed appropriate action plan to take if red flag symptoms occur. Patient agreeable to treatment plan. Medical Decision Making: Problems: Low: Acute, uncomplicated illness or injury Data: Unique test(s) ordered: 1 Risk: Moderate: Drug management and Moderate risk from testing/treatment Medical Decision Making Level: 3 - Low documented in this encounter [facility] 02-23-2024 History of Present illness Narrative Detailed VM left on authorized voicemail requesting return call to notify if willing to complete stress test recommended by cardiology. Will also send [employer] message. Center Mgr recommended a stress test-is patient willing? Pt states he is not been having chest pain. States he was in [place] and had caught a cold, was able to cough up a lot of phlegm and doing alright. Can we call and see how patient is feeling with chest pain? How long going on? CARDIOTHORACIC CONSULT NOTE Patient Name: Luis Angel Aguila Admit Date: MR #: [id number] : 1955 Physicians: Gildardo Foster CNP (Family); Yon Quinteros* (Referring) Chief Complaint/Reason for Visit: thoracic aneurysm History of Present Illness: Luis Angel Aguila is a 68 y.o. y/o male presenting from home with c/o thoracic aneruysm. This was discovered incidentally on noncontrast CT scanning for lung cancer screening. He has had episodes of hemoptysis at altitude; none for multiple years. He is followed by Dr. Quinteros for this. He has multiple subcentimeter nodules that are being followed with noncontrast CT scanning. He denies chest pain, intrascapular back pain, paroxysmal nocturnal dyspnea, orthopnea, lower extremity edema. He does note dyspnea on exertion; this is alleviated by rest. He does note intermittent chest pain that is alleviated by rest. He has not had a stress test in some time. He does have known COPD. Review of recent blood work reveals a normal CBC, normal basic metabolic panel. He did undergo bronchoscopy recently, and the cytology was normal. History: Past Medical History: Diagnosis Date COPD (chronic obstructive pulmonary disease) (HCC) GERD (gastroesophageal reflux disease) Hyperlipemia Hypertension Lung nodule 2016 They only found 1 in [facility] Past Surgical History: Procedure Laterality Date APPENDECTOMY BLADDER SURGERY 2020 bladder ripped EGD N/A 11/26/2023 Procedure: ESOPHAGOGASTRODUODENOSCOPY WITH BIOPSY (PTEK); Surgeon: Sahil Alcantara MD; Location: [facility]; Service: General Surgery EPIDIDYMECTOMY HAND SURGERY Right boxer HERNIA REPAIR Bilateral inguinal NECK SURGERY plate PENILE PROSTHESIS IMPLANT 2022 [place] BRONCHOSCOPY W/TRANSBRONCHIAL LUNG BX 1 LOBE Bilateral 11/04/2023 Procedure: BRONCHOSCOPY; BAL; Surgeon: Frank Quinteros MD; Location: [facility]; Service: Pulmonary PROSTATECTOMY right ankle ORIF ROTATOR CUFF REPAIR Bilateral 2015 SPINE SURGERY L4-L5 Family History Problem Relation Age of Onset Cancer Mother Lung COPD Father Social History Socioeconomic History Marital status: Tobacco Use Smoking status: Every Day Current packs/day: 1.00 Average packs/day: 1 pack/day for 60.9 years (60.9 ttl pk-yrs) Types: Cigarettes Start date: 1963 Smokeless tobacco: Never Tobacco comments: 2 PPD 09/24/2023, 2 PPD--10/23/2023, 12/04/23 Vaping Use Vaping status: Never Used Substance and Sexual Activity Alcohol use: Not Currently Comment: 1-2/year 09/24/2023 Drug use: Never Comment: 09/24/2023 Social Drivers of Health Financial Resource Strain: Low Risk (03/17/2023) Received from [facility] Overall Financial Resource Strain (CARDIA) Difficulty of Paying Living Expenses: Not hard at all Food Insecurity: No Food Insecurity (10/30/2023) Hunger Vital Sign Worried About Running Out of Food in the Last Year: Never true Ran Out of Food in the Last Year: Never true Transportation Needs: No Transportation Needs (10/30/2023) PRAPARE - Transportation Lack of Transportation (Medical): No Lack of Transportation (Non-Medical): No Physical Activity: Insufficiently Active (03/17/2023) Received from [facility] Exercise Vital Sign Days of Exercise per Week: 1 day Minutes of Exercise per Session: 10 min Stress: No Stress Concern Present (03/17/2023) Received from [facility] [employer] - Occupational Stress Questionnaire Feeling of Stress : Only a little Social Connections: Moderately Integrated (03/17/2023) Received from [facility] Social Connection and Isolation Panel [NHANES] Frequency of Communication with Friends and Family: Three times a week Attends Caodaism Services: 1 to 4 times per year Active Member of Clubs or Organizations: No Attends Club or Organization Meetings: Never Marital Status: Housing Stability: Low Risk (10/30/2023) Housing Stability Vital Sign Unable to Pay for Housing in the Last Year: No Number of Times Moved in the Last Year: 0 Homeless in the Last Year: No Allergy Information: I have reviewed the patient's allergies. Prednisone and Morphine Home Medications: Outpatient Medications as of 2024 Medication Sig acetaminophen (TYLENOL) 500 MG tablet Take 2 (two) tablets (1,000 mg total) by mouth every 8 (eight) hours as needed for pain . albuterol 90 mcg/actuation inhaler Inhale 2 (two) puffs every 4 (four) hours as needed for wheezing, shortness of breath or cough . amLODIPine (NORVASC) 5 MG tablet Take 1 (one) tablet (5 mg total) by mouth daily . aspirin 81 MG EC tablet Take 1 (one) tablet (81 mg total) by mouth daily . atenoloL (TENORMIN) 50 MG tablet Take 1 (one) tablet (50 mg total) by mouth daily . atorvastatin (LIPITOR) 40 MG tablet Take 1 (one) tablet (40 mg total) by mouth every night at bedtime . cholecalciferol, vitamin D3, 50 mcg (2,000 unit) Tab Take 1 (one) tablet (2,000 Units total) by mouth daily . cyclobenzaprine (FLEXERIL) 10 MG tablet Take 1 (one) tablet (10 mg total) by mouth nightly . docusate sodium (COLACE) 100 MG capsule Take 1 (one) capsule (100 mg total) by mouth 2 (two) times a day . famotidine (PEPCID) 40 MG tablet Take 1 (one) tablet (40 mg total) by mouth daily . lisinopriL (PRINIVIL,ZESTRIL) 40 MG tablet Take 1 (one) tablet (40 mg total) by mouth daily . multivitamin with minerals cap Take 1 capsule by mouth daily . omeprazole (PRILOSEC) 40 MG capsule Take 1 (one) capsule (40 mg total) by mouth 2 (two) times a day . pregabalin (LYRICA) 75 MG capsule Take 2 (two) capsules (150 mg total) by mouth nightly . spironolactone (ALDACTONE) 25 MG tablet Take 1 (one) tablet (25 mg total) by mouth daily . tiotropium-olodateroL (Stiolto Respimat) 2.5-2.5 mcg/actuation Mist respimat inhaler Inhale 2 (two) puffs daily . Review of Systems: The following system(s) were reviewed and pertinent findings noted: Constitutional:No fever, no weight loss Eyes:No diplopia ENT:No sinus drainage CV:No chest pain. Resp:denies copd/asthma/+ ANDERSON GI:No abdominal pain.No abdominal distention denies melana :No dysuria Neuro:denies sx cva or tia Integumentary:No skin rash MuscSkel:No arthralgias Endo:denies sx dm Heme/lymphatic:No apparent lymphadenopathy Psych:No unusual mood swings Physical Examination: Vital Signs: BP 126/80 (BP Location: Left arm, Patient Position: Sitting, BP Cuff Size: Adult) Pulse 97 Ht 5' 9 Wt 78 kg (172 lb) SpO2 93% BMI 25.40 kg/m General: Alert, cooperative, no distress, appears stated age Head: Normocephalic, without obvious abnormality, atraumatic Eyes: PERRL, conjunctiva/corneas clear, EOM's intact Throat: Lips, mucosa, and tongue normal; teeth and gums normal Neck: Supple, symmetrical, trachea midline, no adenopathy; thyroid: no enlargement/tenderness/nodules; no carotid bruit or JVD Lungs: Clear to auscultation bilaterally, no wheeze or rhonchi no accessory muscles used Chest Wall: No tenderness or deformity Cardiovascular: Regular rate and rhythm, S1 and S2 normal, no murmur, rub or gallop; Pulses 1+ and symmetric all extremities Abdomen: Soft, non-tender, bowel sounds active all four quadrants,no masses, no organomegaly Extremities: Normal, atraumatic, no cyanosis , no clubbing Skin: Skin color, texture, turgor normal, no rashes or lesions Musculoskeletal: Full range of motion of all extremities; no joint edema Neurologic: Awake and alert, CASSIE x 4 equal, no focal deficits Psych: Mood and affect appropriate Laboratory and Additional Data Reviewed: Laboratory 02/19/24 2:11 PM Microbiology 02/19/24 2:11 PM Pathology 02/19/24 2:11 PM Radiology 02/19/24 2:11 PM Cardiology 02/19/24 2:11 PM Medications 02/19/24 2:11 PM Transcriptions 02/19/24 2:11 PM Assessment and Plan: Mr. Aguila was incidentally found to have an asymptomatic 4.1 cm ascending aortic aneurysm during a workup of hemoptysis. No intervention is currently warranted. We will get a noncontrast CT scan in 2 years' time to evaluate for aneurysmal degeneration. We will continue to keep his blood pressure control less than 140/90. We have encouraged smoking cessation. documented in this encounter [facility] 02-23-2024 Note Center Mgr recomme nded a stress test-is patient willing? AUTHENTICATED BY GILDARDO FOSTER, ON 02/23/2024 11:42:14 [facility] 02-23-2024 History of Present illness Narrative Center Mgr recommended a stress test-is patient willing? Pt states he is not been having chest pain. States he was in [place] and had caught a cold, was able to cough up a lot of phlegm and doing alright. Can we call and see how patient is feeling with chest pain? How long going on? CARDIOTHORACIC CONSULT NOTE Patient Name: Luis Angel Aguila Admit Date: MR #: [id number] : 1955 Physicians: Gildardo Foster CNP (Family); Yon Quinteros* (Referring) Chief Complaint/Reason for Visit: thoracic aneurysm History of Present Illness: Luis Angel Aguila is a 68 y.o. y/o male presenting from home with c/o thoracic aneruysm. This was discovered incidentally on noncontrast CT scanning for lung cancer screening. He has had episodes of hemoptysis at altitude; none for multiple years. He is followed by Dr. Quinteros for this. He has multiple subcentimeter nodules that are being followed with noncontrast CT scanning. He denies chest pain, intrascapular back pain, paroxysmal nocturnal dyspnea, orthopnea, lower extremity edema. He does note dyspnea on exertion; this is alleviated by rest. He does note intermittent chest pain that is alleviated by rest. He has not had a stress test in some time. He does have known COPD. Review of recent blood work reveals a normal CBC, normal basic metabolic panel. He did undergo bronchoscopy recently, and the cytology was normal. History: Past Medical History: Diagnosis Date COPD (chronic obstructive pulmonary disease) (HCC) GERD (gastroesophageal reflux disease) Hyperlipemia Hypertension Lung nodule 2016 They only found 1 in [facility] Past Surgical History: Procedure Laterality Date APPENDECTOMY BLADDER SURGERY 2020 bladder ripped EGD N/A 11/26/2023 Procedure: ESOPHAGOGASTRODUODENOSCOPY WITH BIOPSY (PTEK); Surgeon: Sahil Alcantara MD; Location: [facility]; Service: General Surgery EPIDIDYMECTOMY HAND SURGERY Right boxer HERNIA REPAIR Bilateral inguinal NECK SURGERY plate PENILE PROSTHESIS IMPLANT 2022 [place] BRONCHOSCOPY W/TRANSBRONCHIAL LUNG BX 1 LOBE Bilateral 11/04/2023 Procedure: BRONCHOSCOPY; BAL; Surgeon: Frank Quinteros MD; Location: [facility]; Service: Pulmonary PROSTATECTOMY right ankle ORIF ROTATOR CUFF REPAIR Bilateral 2015 SPINE SURGERY L4-L5 Family History Problem Relation Age of Onset Cancer Mother Lung COPD Father Social History Socioeconomic History Marital status: Tobacco Use Smoking status: Every Day Current packs/day: 1.00 Average packs/day: 1 pack/day for 60.9 years (60.9 ttl pk-yrs) Types: Cigarettes Start date: 1963 Smokeless tobacco: Never Tobacco comments: 1/2 PPD 09/24/2023, 2 PPD--10/23/2023, 12/04/23 Vaping Use Vaping status: Never Used Substance and Sexual Activity Alcohol use: Not Currently Comment: 1-2/year 09/24/2023 Drug use: Never Comment: 09/24/2023 Social Drivers of Health Financial Resource Strain: Low Risk (03/17/2023) [facility] Overall Financial Resource Strain (CARDIA) Difficulty of Paying Living Expenses: Not hard at all Food Insecurity: No Food Insecurity (10/30/2023) Hunger Vital Sign Worried About Running Out of Food in the Last Year: Never true Ran Out of Food in the Last Year: Never true Transportation Needs: No Transportation Needs (10/30/2023) PRAPARE - Transportation Lack of Transportation (Medical): No Lack of Transportation (Non-Medical): No Physical Activity: Insufficiently Active (03/17/2023) Received from [facility] Exercise Vital Sign Days of Exercise per Week: 1 day Minutes of Exercise per Session: 10 min Stress: No Stress Concern Present (03/17/2023) Received from [facility] [employer] - Occupational Stress Questionnaire Feeling of Stress : Only a little Social Connections: Moderately Integrated (03/17/2023) Received from [facility] Social Connection and Isolation Panel [NHANES] Frequency of Communication with Friends and Family: Three times a week Attends Caodaism Services: 1 to 4 times per year Active Member of Clubs or Organizations: No Attends Club or Organization Meetings: Never Marital Status: Housing Stability: Low Risk (10/30/2023) Housing Stability Vital Sign Unable to Pay for Housing in the Last Year: No Number of Times Moved in the Last Year: 0 Homeless in the Last Year: No Allergy Information: I have reviewed the patient's allergies. Prednisone and Morphine Home Medications: Outpatient Medications as of 2024 Medication Sig acetaminophen (TYLENOL) 500 MG tablet Take 2 (two) tablets (1,000 mg total) by mouth every 8 (eight) hours as needed for pain . albuterol 90 mcg/actuation inhaler Inhale 2 (two) puffs every 4 (four) hours as needed for wheezing, shortness of breath or cough . amLODIPine (NORVASC) 5 MG tablet Take 1 (one) tablet (5 mg total) by mouth daily . aspirin 81 MG EC tablet Take 1 (one) tablet (81 mg total) by mouth daily . atenoloL (TENORMIN) 50 MG tablet Take 1 (one) tablet (50 mg total) by mouth daily . atorvastatin (LIPITOR) 40 MG tablet Take 1 (one) tablet (40 mg total) by mouth every night at bedtime . cholecalciferol, vitamin D3, 50 mcg (2,000 unit) Tab Take 1 (one) tablet (2,000 Units total) by mouth daily . cyclobenzaprine (FLEXERIL) 10 MG tablet Take 1 (one) tablet (10 mg total) by mouth nightly . docusate sodium (COLACE) 100 MG capsule Take 1 (one) capsule (100 mg total) by mouth 2 (two) times a day . famotidine (PEPCID) 40 MG tablet Take 1 (one) tablet (40 mg total) by mouth daily . lisinopriL (PRINIVIL,ZESTRIL) 40 MG tablet Take 1 (one) tablet (40 mg total) by mouth daily . multivitamin with minerals cap Take 1 capsule by mouth daily . omeprazole (PRILOSEC) 40 MG capsule Take 1 (one) capsule (40 mg total) by mouth 2 (two) times a day . pregabalin (LYRICA) 75 MG capsule Take 2 (two) capsules (150 mg total) by mouth nightly . spironolactone (ALDACTONE) 25 MG tablet Take 1 (one) tablet (25 mg total) by mouth daily . tiotropium-olodateroL (Stiolto Respimat) 2.5-2.5 mcg/actuation Mist respimat inhaler Inhale 2 (two) puffs daily . Review of Systems: The following system(s) were reviewed and pertinent findings noted: Constitutional:No fever, no weight loss Eyes:No diplopia ENT:No sinus drainage CV:No chest pain. Resp:denies copd/asthma/+ ANDERSON GI:No abdominal pain.No abdominal distention denies melana :No dysuria Neuro:denies sx cva or tia Integumentary:No skin rash MuscSkel:No arthralgias Endo:denies sx dm Heme/lymphatic:No apparent lymphadenopathy Psych:No unusual mood swings Physical Examination: Vital Signs: BP 126/80 (BP Location: Left arm, Patient Position: Sitting, BP Cuff Size: Adult) Pulse 97 Ht 5' 9 Wt 78 kg (172 lb) SpO2 93% BMI 25.40 kg/m General: Alert, cooperative, no distress, appears stated age Head: Normocephalic, without obvious abnormality, atraumatic Eyes: PERRL, conjunctiva/corneas clear, EOM's intact Throat: Lips, mucosa, and tongue normal; teeth and gums normal Neck: Supple, symmetrical, trachea midline, no adenopathy; thyroid: no enlargement/tenderness/nodules; no carotid bruit or JVD Lungs: Clear to auscultation bilaterally, no wheeze or rhonchi no accessory muscles used Chest Wall: No tenderness or deformity Cardiovascular: Regular rate and rhythm, S1 and S2 normal, no murmur, rub or gallop; Pulses 1+ and symmetric all extremities Abdomen: Soft, non-tender, bowel sounds active all four quadrants,no masses, no organomegaly Extremities: Normal, atraumatic, no cyanosis , no clubbing Skin: Skin color, texture, turgor normal, no rashes or lesions Musculoskeletal: Full range of motion of all extremities; no joint edema Neurologic: Awake and alert, CASSIE x 4 equal, no focal deficits Psych: Mood and affect appropriate Laboratory and Additional Data Reviewed: Laboratory 02/19/24 2:11 PM Microbiology 02/19/24 2:11 PM Pathology 02/19/24 2:11 PM Radiology 02/19/24 2:11 PM Cardiology 02/19/24 2:11 PM Medications 02/19/24 2:11 PM Transcriptions 02/19/24 2:11 PM Assessment and Plan: Mr. Aguila was incidentally found to have an asymptomatic 4.1 cm ascending aortic aneurysm during a workup of hemoptysis. No intervention is currently warranted. We will get a noncontrast CT scan in 2 years' time to evaluate for aneurysmal degeneration. We will continue to keep his blood pressure control less than 140/90. We have encouraged smoking cessation. documented in this encounter [facility] 02-23-2024 History of Present illness Narrative Pt states he is not been having chest pain. States he was in [place] and had caught a cold, was able to cough up a lot of phlegm and doing alright. Can we call and see how patient is feeling with chest pain? How long going on? CARDIOTHORACIC CONSULT NOTE Patient Name: Luis Angel Aguila Admit Date: MR #: [id number] : 1955 Physicians: Gildardo Foster CNP (Family); Yon Quinteros* (Referring) Chief Complaint/Reason for Visit: thoracic aneurysm History of Present Illness: Luis Angel Aguila is a 68 y.o. y/o male presenting from home with c/o thoracic aneruysm. This was discovered incidentally on noncontrast CT scanning for lung cancer screening. He has had episodes of hemoptysis at altitude; none for multiple years. He is followed by Dr. Quinteros for this. He has multiple subcentimeter nodules that are being followed with noncontrast CT scanning. He denies chest pain, intrascapular back pain, paroxysmal nocturnal dyspnea, orthopnea, lower extremity edema. He does note dyspnea on exertion; this is alleviated by rest. He does note intermittent chest pain that is alleviated by rest. He has not had a stress test in some time. He does have known COPD. Review of recent blood work reveals a normal CBC, normal basic metabolic panel. He did undergo bronchoscopy recently, and the cytology was normal. History: Past Medical History: Diagnosis Date COPD (chronic obstructive pulmonary disease) (HCC) GERD (gastroesophageal reflux disease) Hyperlipemia Hypertension Lung nodule 2016 They only found 1 in [facility] Past Surgical History: Procedure Laterality Date APPENDECTOMY BLADDER SURGERY 2020 bladder ripped EGD N/A 11/26/2023 Procedure: ESOPHAGOGASTRODUODENOSCOPY WITH BIOPSY (PTEK); Surgeon: Sahil Alcantara MD; Location: [facility]; Service: General Surgery EPIDIDYMECTOMY HAND SURGERY Right boxer HERNIA REPAIR Bilateral inguinal NECK SURGERY plate PENILE PROSTHESIS IMPLANT 2022 [place] BRONCHOSCOPY W/TRANSBRONCHIAL LUNG BX 1 LOBE Bilateral 11/04/2023 Procedure: BRONCHOSCOPY; BAL; Surgeon: Frank Quinteros MD; Location: [facility]; Service: Pulmonary PROSTATECTOMY right ankle ORIF ROTATOR CUFF REPAIR Bilateral 2014 SPINE SURGERY L4-L5 Family History Problem Relation Age of Onset Cancer Mother Lung COPD Father Social History Socioeconomic History Marital status: Tobacco Use Smoking status: Every Day Current packs/day: 1.00 Average packs/day: 1 pack/day for 60.9 years (60.9 ttl pk-yrs) Types: Cigarettes Start date: 1964 Smokeless tobacco: Never Tobacco comments: 12 PPD 09/24/2023, 2 PPD--10/23/2023, 12/04/23 Vaping Use Vaping status: Never Used Substance and Sexual Activity Alcohol use: Not Currently Comment: 1-2/year 09/24/2023 Drug use: Never Comment: 09/24/2023 Social Drivers of Health Financial Resource Strain: Low Risk (03/17/2023) Received from [facility] Overall Financial Resource Strain (CARDIA) Difficulty of Paying Living Expenses: Not hard at all Food Insecurity: No Food Insecurity (10/30/2023) Hunger Vital Sign Worried About Running Out of Food in the Last Year: Never true Ran Out of Food in the Last Year: Never true Transportation Needs: No Transportation Needs (10/30/2023) PRAPARE - Transportation Lack of Transportation (Medical): No Lack of Transportation (Non-Medical): No Physical Activity: Insufficiently Active (03/17/2023) Received from [facility] Exercise Vital Sign Days of Exercise per Week: 1 day Minutes of Exercise per Session: 10 min Stress: No Stress Concern Present (03/17/2023) Received from [facility] [employer] [facility] [employer] - Occupational Stress Questionnaire Feeling of Stress : Only a little Social Connections: Moderately Integrated (03/17/2023) Received from [facility] Social Connection and Isolation Panel [NHANES] Frequency of Communication with Friends and Family: Three times a week Attends Caodaism Services: 1 to 4 times per year Active Member of Clubs or Organizations: No Attends Club or Organization Meetings: Never Marital Status: Housing Stability: Low Risk (10/30/2023) Housing Stability Vital Sign Unable to Pay for Housing in the Last Year: No Number of Times Moved in the Last Year: 0 Homeless in the Last Year: No Allergy Information: I have reviewed the patient's allergies. Prednisone and Morphine Home Medications: Outpatient Medications as of 2024 Medication Sig acetaminophen (TYLENOL) 500 MG tablet Take 2 (two) tablets (1,000 mg total) by mouth every 8 (eight) hours as needed for pain . albuterol 90 mcg/actuation inhaler Inhale 2 (two) puffs every 4 (four) hours as needed for wheezing, shortness of breath or cough . amLODIPine (NORVASC) 5 MG tablet Take 1 (one) tablet (5 mg total) by mouth daily . aspirin 81 MG EC tablet Take 1 (one) tablet (81 mg total) by mouth daily . atenoloL (TENORMIN) 50 MG tablet Take 1 (one) tablet (50 mg total) by mouth daily . atorvastatin (LIPITOR) 40 MG tablet Take 1 (one) tablet (40 mg total) by mouth every night at bedtime . cholecalciferol, vitamin D3, 50 mcg (2,000 unit) Tab Take 1 (one) tablet (2,000 Units total) by mouth daily . cyclobenzaprine (FLEXERIL) 10 MG tablet Take 1 (one) tablet (10 mg total) by mouth nightly . docusate sodium (COLACE) 100 MG capsule Take 1 (one) capsule (100 mg total) by mouth 2 (two) times a day . famotidine (PEPCID) 40 MG tablet Take 1 (one) tablet (40 mg total) by mouth daily . lisinopriL (PRINIVIL,ZESTRIL) 40 MG tablet Take 1 (one) tablet (40 mg total) by mouth daily . multivitamin with minerals cap Take 1 capsule by mouth daily . omeprazole (PRILOSEC) 40 MG capsule Take 1 (one) capsule (40 mg total) by mouth 2 (two) times a day . pregabalin (LYRICA) 75 MG capsule Take 2 (two) capsules (150 mg total) by mouth nightly . spironolactone (ALDACTONE) 25 MG tablet Take 1 (one) tablet (25 mg total) by mouth daily . tiotropium-olodateroL (Stiolto Respimat) 2.5-2.5 mcg/actuation Mist respimat inhaler Inhale 2 (two) puffs daily . Review of Systems: The following system(s) were reviewed and pertinent findings noted: Constitutional:No fever, no weight loss Eyes:No diplopia ENT:No sinus drainage CV:No chest pain. Resp:denies copd/asthma/+ ANDERSON GI:No abdominal pain.No abdominal distention denies melana :No dysuria Neuro:denies sx cva or tia Integumentary:No skin rash MuscSkel:No arthralgias Endo:denies sx dm Heme/lymphatic:No apparent lymphadenopathy Psych:No unusual mood swings Physical Examination: Vital Signs: BP 126/80 (BP Location: Left arm, Patient Position: Sitting, BP Cuff Size: Adult) Pulse 97 Ht 5' 9 Wt 78 kg (172 lb) SpO2 93% BMI 25.40 kg/m General: Alert, cooperative, no distress, appears stated age Head: Normocephalic, without obvious abnormality, atraumatic Eyes: PERRL, conjunctiva/corneas clear, EOM's intact Throat: Lips, mucosa, and tongue normal; teeth and gums normal Neck: Supple, symmetrical, trachea midline, no adenopathy; thyroid: no enlargement/tenderness/nodules; no carotid bruit or JVD Lungs: Clear to auscultation bilaterally, no wheeze or rhonchi no accessory muscles used Chest Wall: No tenderness or deformity Cardiovascular: Regular rate and rhythm, S1 and S2 normal, no murmur, rub or gallop; Pulses 1+ and symmetric all extremities Abdomen: Soft, non-tender, bowel sounds active all four quadrants,no masses, no organomegaly Extremities: Normal, atraumatic, no cyanosis , no clubbing Skin: Skin color, texture, turgor normal, no rashes or lesions Musculoskeletal: Full range of motion of all extremities; no joint edema Neurologic: Awake and alert, CASSIE x 4 equal, no focal deficits Psych: Mood and affect appropriate Laboratory and Additional Data Reviewed: Laboratory 02/19/24 2:11 PM Microbiology 02/19/24 2:11 PM Pathology 02/19/24 2:11 PM Radiology 02/19/24 2:11 PM Cardiology 02/19/24 2:11 PM Medications 02/19/24 2:11 PM Transcriptions 02/19/24 2:11 PM Assessment and Plan: Mr. Aguila was incidentally found to have an asymptomatic 4.1 cm ascending aortic aneurysm during a workup of hemoptysis. No intervention is currently warranted. We will get a noncontrast CT scan in 2 years' time to evaluate for aneurysmal degeneration. We will continue to keep his blood pressure control less than 140/90. We have encouraged smoking cessation. documented in this encounter [facility] 02-23-2024 Note Can we call and see how patient is feeling with chest pain? How long going on? AUTHENTICATED BY GILDARDO FOSTER, ON 02/23/2024 11:02:25 [facility] 02-23-2024 History of Present illness Narrative Can we call and see how patient is feeling with chest pain? How long going on? CARDIOTHORACIC CONSULT NOTE Patient Name: Luis Angel Aguila Admit Date: MR #: [id number] : 1955 Physicians: Gildardo Foster CNP (Family); Yon Quinteros* (Referring) Chief Complaint/Reason for Visit: thoracic aneurysm History of Present Illness: Luis Angel Aguila is a 68 y.o. y/o male presenting from home with c/o thoracic aneruysm. This was discovered incidentally on noncontrast CT scanning for lung cancer screening. He has had episodes of hemoptysis at altitude; none for multiple years. He is followed by Dr. Quinteros for this. He has multiple subcentimeter nodules that are being followed with noncontrast CT scanning. He denies chest pain, intrascapular back pain, paroxysmal nocturnal dyspnea, orthopnea, lower extremity edema. He does note dyspnea on exertion; this is alleviated by rest. He does note intermittent chest pain that is alleviated by rest. He has not had a stress test in some time. He does have known COPD. Review of recent blood work reveals a normal CBC, normal basic metabolic panel. He did undergo bronchoscopy recently, and the cytology was normal. History: Past Medical History: Diagnosis Date COPD (chronic obstructive pulmonary disease) (HCC) GERD (gastroesophageal reflux disease) Hyperlipemia Hypertension Lung nodule 2016 They only found 1 in [facility] Past Surgical History: Procedure Laterality Date APPENDECTOMY BLADDER SURGERY 2020 bladder ripped EGD N/A 11/26/2023 Procedure: ESOPHAGOGASTRODUODENOSCOPY WITH BIOPSY (PTEK); Surgeon: Sahil Alcantara MD; Location: Endo; Service: General Surgery EPIDIDYMECTOMY HAND SURGERY Right boxer HERNIA REPAIR Bilateral inguinal NECK SURGERY plate PENILE PROSTHESIS IMPLANT 2022 [place] BRONCHOSCOPY W/TRANSBRONCHIAL LUNG BX 1 LOBE Bilateral 11/04/2023 Procedure: BRONCHOSCOPY; BAL; Surgeon: Frank Quinteros MD; Location: [facility]; Service: Pulmonary PROSTATECTOMY right ankle ORIF ROTATOR CUFF REPAIR Bilateral 2015 SPINE SURGERY L4-L5 Family History Problem Relation Age of Onset Cancer Mother Lung COPD Father Social History Socioeconomic History Marital status: Tobacco Use Smoking status: Every Day Current packs/day: 1.00 Average packs/day: 1 pack/day for 60.9 years (60.9 ttl pk-yrs) Types: Cigarettes Start date: 1963 Smokeless tobacco: Never Tobacco comments: 1/2 PPD 09/24/2023, 2 PPD--10/23/2023, 12/04/23 Vaping Use Vaping status: Never Used Substance and Sexual Activity Alcohol use: Not Currently Comment: 1-2/year 09/24/2023 Drug use: Never Comment: 09/24/2023 Social Drivers of Health Financial Resource Strain: Low Risk (03/17/2023) Received from [facility] Overall Financial Resource Strain (CARDIA) Difficulty of Paying Living Expenses: Not hard at all Food Insecurity: No Food Insecurity (10/30/2023) Hunger Vital Sign Worried About Running Out of Food in the Last Year: Never true Ran Out of Food in the Last Year: Never true Transportation Needs: No Transportation Needs (10/30/2023) PRAPARE - Transportation Lack of Transportation (Medical): No Lack of Transportation (Non-Medical): No Physical Activity: Insufficiently Active (03/17/2023) Received from [facility] Exercise Vital Sign Days of Exercise per Week: 1 day Minutes of Exercise per Session: 10 min Stress: No Stress Concern Present (03/17/2023) Received from [facility] [employer] - Occupational Stress Questionnaire Feeling of Stress : Only a little Social Connections: Moderately Integrated (03/17/2023) Received from [facility] Social Connection and Isolation Panel [NHANES] Frequency of Communication with Friends and Family: Three times a week Attends Caodaism Services: 1 to 4 times per year Active Member of Clubs or Organizations: No Attends Club or Organization Meetings: Never Marital Status: Housing Stability: Low Risk (10/30/2023) Housing Stability Vital Sign Unable to Pay for Housing in the Last Year: No Number of Times Moved in the Last Year: 0 Homeless in the Last Year: No Allergy Information: I have reviewed the patient's allergies. Prednisone and Morphine Home Medications: Outpatient Medications as of 2024 Medication Sig acetaminophen (TYLENOL) 500 MG tablet Take 2 (two) tablets (1,000 mg total) by mouth every 8 (eight) hours as needed for pain . albuterol 90 mcg/actuation inhaler Inhale 2 (two) puffs every 4 (four) hours as needed for wheezing, shortness of breath or cough . amLODIPine (NORVASC) 5 MG tablet Take 1 (one) tablet (5 mg total) by mouth daily . aspirin 81 MG EC tablet Take 1 (one) tablet (81 mg total) by mouth daily . atenoloL (TENORMIN) 50 MG tablet Take 1 (one) tablet (50 mg total) by mouth daily . atorvastatin (LIPITOR) 40 MG tablet Take 1 (one) tablet (40 mg total) by mouth every night at bedtime . cholecalciferol, vitamin D3, 50 mcg (2,000 unit) Tab Take 1 (one) tablet (2,000 Units total) by mouth daily . cyclobenzaprine (FLEXERIL) 10 MG tablet Take 1 (one) tablet (10 mg total) by mouth nightly . docusate sodium (COLACE) 100 MG capsule Take 1 (one) capsule (100 mg total) by mouth 2 (two) times a day . famotidine (PEPCID) 40 MG tablet Take 1 (one) tablet (40 mg total) by mouth daily . lisinopriL (PRINIVIL,ZESTRIL) 40 MG tablet Take 1 (one) tablet (40 mg total) by mouth daily . multivitamin with minerals cap Take 1 capsule by mouth daily . omeprazole (PRILOSEC) 40 MG capsule Take 1 (one) capsule (40 mg total) by mouth 2 (two) times a day . pregabalin (LYRICA) 75 MG capsule Take 2 (two) capsules (150 mg total) by mouth nightly . spironolactone (ALDACTONE) 25 MG tablet Take 1 (one) tablet (25 mg total) by mouth daily . tiotropium-olodateroL (Stiolto Respimat) 2.5-2.5 mcg/actuation Mist respimat inhaler Inhale 2 (two) puffs daily . Review of Systems: The following system(s) were reviewed and pertinent findings noted: Constitutional:No fever, no weight loss Eyes:No diplopia ENT:No sinus drainage CV:No chest pain. Resp:denies copd/asthma/+ ANDERSON GI:No abdominal pain.No abdominal distention denies melana :No dysuria Neuro:denies sx cva or tia Integumentary:No skin rash MuscSkel:No arthralgias Endo:denies sx dm Heme/lymphatic:No apparent lymphadenopathy Psych:No unusual mood swings Physical Examination: Vital Signs: BP 126/80 (BP Location: Left arm, Patient Position: Sitting, BP Cuff Size: Adult) Pulse 97 Ht 5' 9 Wt 78 kg (172 lb) SpO2 93% BMI 25.40 kg/m General: Alert, cooperative, no distress, appears stated age Head: Normocephalic, without obvious abnormality, atraumatic Eyes: PERRL, conjunctiva/corneas clear, EOM's intact Throat: Lips, mucosa, and tongue normal; teeth and gums normal Neck: Supple, symmetrical, trachea midline, no adenopathy; thyroid: no enlargement/tenderness/nodules; no carotid bruit or JVD Lungs: Clear to auscultation bilaterally, no wheeze or rhonchi no accessory muscles used Chest Wall: No tenderness or deformity Cardiovascular: Regular rate and rhythm, S1 and S2 normal, no murmur, rub or gallop; Pulses 1+ and symmetric all extremities Abdomen: Soft, non-tender, bowel sounds active all four quadrants,no masses, no organomegaly Extremities: Normal, atraumatic, no cyanosis , no clubbing Skin: Skin color, texture, turgor normal, no rashes or lesions Musculoskeletal: Full range of motion of all extremities; no joint edema Neurologic: Awake and alert, CASSIE x 4 equal, no focal deficits Psych: Mood and affect appropriate Laboratory and Additional Data Reviewed: Laboratory 02/19/24 2:11 PM Microbiology 02/19/24 2:11 PM Pathology 02/19/24 2:11 PM Radiology 02/19/24 2:11 PM Cardiology 02/19/24 2:11 PM Medications 02/19/24 2:11 PM Transcriptions 02/19/24 2:11 PM Assessment and Plan: Mr. Aguila was incidentally found to have an asymptomatic 4.1 cm ascending aortic aneurysm during a workup of hemoptysis. No intervention is currently warranted. We will get a noncontrast CT scan in 2 years' time to evaluate for aneurysmal degeneration. We will continue to keep his blood pressure control less than 140/90. We have encouraged smoking cessation. documented in this encounter [facility] 2024 Note CARDIOTHORACIC CONSU LT NOTE Patient Name: Luis Angel Aguila Admit Date: MR #: [id number] : 1955 Physicians: Gildardo Foster, JAMES (Family); Yon Quinteros* (Referring) Chief Complaint/Reason for Visit: thoracic aneurysm History of Present Illness: Luis Angel Aguila is a 68 y.o. y/o male presenting from home with c/o thoracic aneruysm. This was discovered incidentally on noncontrast CT scanning for lung cancer screening. He has had episodes of hemoptysis at altitude; none for multiple years. He is followed by Dr. Quinteros for this. He has multiple subcentimeter nodules that are being followed with noncontrast CT scanning. He denies chest pain, intrascapular back pain, paroxysmal nocturnal dyspnea, orthopnea, lower extremity edema. He does note dyspnea on exertion; this is alleviated by rest. He does note intermittent chest pain that is alleviated by rest. He has not had a stress test in some time. He does have known COPD. Review of recent blood work reveals a normal CBC, normal basic metabolic panel. He did undergo bronchoscopy recently, and the cytology was normal. History: Past Medical History: Diagnosis Date COPD (chronic obstructive pulmonary disease) (HCC) GERD (gastroesophageal reflux disease) Hyperlipemia Hypertension Lung nodule 2016 They only found 1 in [facility] Past Surgical History: Procedure Laterality Date APPENDECTOMY BLADDER SURGERY 2020 bladder ripped EGD N/A 11/26/2023 Procedure: ESOPHAGOGASTRODUODENOSCOPY WITH BIOPSY (PTEK); Surgeon: Sahil Alcantara MD; Location: Endo; Service: General Surgery EPIDIDYMECTOMY HAND SURGERY Right boxer HERNIA REPAIR Bilateral inguinal NECK SURGERY plate PENILE PROSTHESIS IMPLANT 2022 [place] BRONCHOSCOPY W/TRANSBRONCHIAL LUNG BX 1 LOBE Bilateral 11/04/2023 Procedure: BRONCHOSCOPY; BAL; Surgeon: Frank Quinteros MD; Location: [facility] Endo; Service: Pulmonary PROSTATECTOMY right ankle ORIF ROTATOR CUFF REPAIR Bilateral 2014 SPINE SURGERY L4-L5 Family History Problem Relation Age of Onset Cancer Mother Lung COPD Father Social History Socioeconomic History Marital status: Tobacco Use Smoking status: Every Day Current packs/day: 1.00 Average packs/day: 1 pack/day for 60.9 years (60.9 ttl pk-yrs) Types: Cigarettes Start date: 1964 Smokeless tobacco: Never Tobacco comments: 1/2 PPD 09/24/2023, 12 PPD--10/23/2023, 12/04/23 Vaping Use Vaping status: Never Used Substance and Sexual Activity Alcohol use: Not Currently Comment: 1-2/year 09/24/2023 Drug use: Never Comment: 09/24/2023 Social Drivers of Health Financial Resource Strain: Low Risk (03/17/2023) Received from [facility] Overall Financial Resource Strain (CARDIA) Difficulty of Paying Living Expenses: Not hard at all Food Insecurity: No Food Insecurity (10/30/2023) Hunger Vital Sign Worried About Running Out of Food in the Last Year: Never true Ran Out of Food in the Last Year: Never true Transportation Needs: No Transportation Needs (10/30/2023) PRAPARE - Transportation Lack of Transportation (Medical): No Lack of Transportation (Non-Medical): No Physical Activity: Insufficiently Active (03/17/2023) Received from [facility] Exercise Vital Sign Days of Exercise per Week: 1 day Minutes of Exercise per Session: 10 min Stress: No Stress Concern Present (03/17/2023) Received from [facility] [employer] - Occupational Stress Questionnaire Feeling of Stress : Only a little Social Connections: Moderately Integrated (03/17/2023) Received from [facility] Social Connection and Isolation Panel [NHANES] Frequency of Communication with Friends and Family: Three times a week Attends Caodaism Services: 1 to 4 times per year Active Member of Clubs or Organizations: No Attends Club or Organization Meetings: Never Marital Status: Housing Stability: Low Risk (10/30/2023) Housing Stability Vital Sign Unable to Pay for Housing in the Last Year: No Number of Times Moved in the Last Year: 0 Homeless in the Last Year: No Allergy Information: I have reviewed the patient's allergies. Prednisone and Morphine Home Medications: Outpatient Medications as of 2024 Medication Sig acetaminophen (TYLENOL) 500 MG tablet Take 2 (two) tablets (1,000 mg total) by mouth every 8 (eight) hours as needed for pain . albuterol 90 mcg/actuation inhaler Inhale 2 (two) puffs every 4 (four) hours as needed for wheezing, shortness of breath or cough . amLODIPine (NORVASC) 5 MG tablet Take 1 (one) tablet (5 mg total) by mouth daily . aspirin 81 MG EC tablet Take 1 (one) tablet (81 mg total) by mouth daily . atenoloL (TENORMIN) 50 MG tablet Take 1 (one) tablet (50 mg total) by mouth daily . atorvastatin (LIPITOR) 40 MG tablet Take 1 (one) (more content not included)... [facility] 12-16-2023 History of Present illness Narrative Oncologic problem(s): 1) Castrate sensitive prostate cancer. HPI: The patient is a 68-year-old male with past medical history significant for hyperlipidemia, hypertension, moderate COPD, GERD, previous cervical spine surgery, chronic low back pain and prostate cancer. Developed gross hematuria. PSA 50s. RP with penile implant. Bladder tear about a month later. PET--recurrence in prostate bed. 06/2021 4 weeks RT in [place] with GnRH agonist treatment (Lupron). Stopped due to side effects--Severe diarrhea and n/v. PSA undetectable 06/2022. Presumably from Lupron. CT A/P 11/18/2022: IMPRESSION: 1. Postoperative ileus versus changes of early small bowel obstruction within the right pelvis as discussed above. Short-term follow-up suggested. 2. Changes of recent prostatectomy and penile implant. There is a 6.0 x 2.7 x 9.5 cm nonencapsulated postoperative fluid collection within the right lower quadrant subcutaneous fat adjacent to the penile pump. 3. Mild free fluid. 4. Sacral insufficiency fractures. Medically managed for SBO. Presents for ongoing oncologic management. Interim history: Saw Dr. Ariza at 11/10/2023: -Assessment/Plan I personally saw patient and counselled all visit on his diagnosis, kamilla history and coordination of his care. This is a 68 y.o. male man known with LN+ PC on ADT (d/c zytiga/pred and apa s/t AEs) with T > 50 and low PSA and negative recent PSMA (June 2022). He had incomplete salvage XRT but aborted s/t bowel tox. He is discontinuing ADT per pt preference - understands R/A of this decision. He was found with some lung abn, but PET was negative and bronch results pending. He is smoker. Will call him in few weeks to Fup on bronch results We discussed the clinical significance of diagnosis, goals of care and treatment plan in detail. Thank you for the opportunity to be involved in the care of Luis Angel Aguila. Please do not hesitate to reach out with any questions. Thank you. Path was negative. Per recent note from [facility] -Follow up sp EGD with biopsies 11/26/2023. 1 cm circumferential salmon colored mucosa seen at the GE junction at the time of EGD, consistent with short segment Oliver's esophagus. 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 We discussed the etiology of Oliver's and need for continued endoscopic surveillance due to risk of malignancy. Recommend patient continue on his PPI/H2 nabil, repeat EGD in 5 years for surveillance. Hot flashes resolved. No symptoms of LUTS. No change in chronic LBP. 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) No date: S/P prostatectomy No date: Tobacco use disorder PAST SURGICAL HISTORY No date: ABDOMINAL SURGERY HX No date: APPENDECTOMY 12/12/2022: COLONOSCOPY Comment: repeat 5 years No date: FOOT RIGHT OP SURGERY; Right No date: FRACTURE SURGERY No date: REMOVAL OF PROSTATE No date: REPAIR ABDOMINAL HERNIA No date: SHOULDER SURGERY HX; Bilateral No date: XR CERVICAL FUSION OR ALLERGIES Allergen Reactions Morphine Rash, Itching Prednisone Mental Status Change Current Outpatient Medications Medication Sig atenolol (TENORMIN) 25 mg tablet Take one tablet daily along with 50 mg to equal 75 mg daily atenolol (TENORMIN) 50 mg tablet Take one tablet daily along with 25 mg tablet to equal 75 mg daily cyclobenzaprine (FLEXERIL) 10 mg tablet Take 1 tablet by mouth as directed. 1/2 to 1 tablet po qhs as needed for spasm acetaminophen (TYLENOL EXTRA STRENGTH) 500 mg tablet Take 1,000 mg by mouth every 8 hours as needed. atorvastatin (LIPITOR) 40 mg tablet Take 1 tablet by mouth daily at bedtime. For cholesterol. lisinopril (ZESTRIL) 40 mg tablet Take 1 tablet by mouth once daily. pregabalin (LYRICA) 75 mg capsule Take one pill twice daily meloxicam (MOBIC) 15 mg tablet Take 1 tablet by mouth once daily. With food. (Patient not taking: Reported on 09/15/2023) omeprazole (PRILOSEC) 40 mg capsule Take 1 capsule by mouth two times a day. tiotropium-olodaterol (STIOLTO RESPIMAT) 2.5-2.5 mcg/actuation Inhale 2 Puffs as instructed once daily. albuterol HFA (VENTOLIN HFA) 90 mcg/actuation inhaler Inhale 2 Puffs as instructed every 4 hours as needed for wheezing/shortness of breath. aspirin, enteric coated (ASPIRIN, ENTERIC COATED) 81 mg EC tablet Take 81 mg by mouth once daily. docusate sodium (STOOL SOFTENER) 100 mg capsule Take 100 mg by mouth twice daily. cholecalciferol (VITAMIN D-3) 50 mcg (2,000 unit) tablet Take 2,000 Units by mouth once daily. beta-carotene,A,-vits C,E/mins (OCUVITE ORAL) Take 1 tablet by mouth once daily. calcium carbonate (CALCIUM 600 ORAL) Take 1 tablet by mouth once daily. Multivitamin capsule Take 1 capsule by mouth once daily. No current facility-administered medications for this visit. Social History Tobacco Use Smoking status: Every Day Current packs/day: 1.00 Average packs/day: 1 pack/day for 55.0 years (55.0 ttl pk-yrs) Types: Cigarettes Smokeless tobacco: Never Tobacco comments: Pt has cut back to 1/2 pack daily. Vaping Use Vaping status: Never Used Substance Use Topics Alcohol use: Yes Comment: occasionaly Drug use: Never Family History Problem Relation Age of Onset Lung Cancer Mother Dementia Father other (ETOH) Father Hypertension Brother Aneurysm Maternal Grandmother other (car accident) Maternal Grandfather other (car accident) Paternal Grandfather ROS: Constitutional: No fever. No drenching night sweats. Normal appetite. No unexplained weight loss. No significant fatigue. Neuro: No recent CORTEZ, vertigo, dizziness or imbalance. HEENT: No recent change in voice, vision or hearing. Resp: No cough, wheeze of hemoptysis. No shortness of breath at rest. ANDERSON--can't climb full set of stairs. CVS: No exertional chest pain, PND or orthopnea. No extremity swelling/edema. No symptoms of claudication. No painful or tender varicose veins. GI: No dysgeusia. No symptoms of stomatitis. No dysphagia or odynophagia. No reflux, n/v, change in bowel habits. No abdominal pain, bloating or distension. No black or bloody stools. : See HPI. Endo: No hot flashes. No polyuria or polydipsia. No heat or cold intolerance. Musculoskeletal: Chronic LBP. Derm: No current rash. No history of jaundice. No diffuse pruritis. Heme: No unusual bleeding and unexplained bruising. Psych: Normal mood. PHYSICAL EXAM: Vitals: Blood pressure 135/74, pulse 73, temperature 36.2 C (97.1 F), temperature source Temporal, weight 80.3 kg (177 lb), SpO2 98%. Well-appearing and in no acute distress. EYES: Sclerae are anicteric bilaterally. LYMPHATIC: There is no palpable cervical, supraclavicula adenopathy. RESPIRATORY: Inspiratory breath sounds are of normal intensity in all arana. No rales, wheezes or rhonchi. CARDIOVASCULAR: Rhythm is regular. ABDOMEN: The abdomen is nondistended. Extremities: No swelling or edema. SKIN: No jaundice. MUSCULOSKELETAL: No muscle wasting. 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 Diagnosed with prostate cancer after developing gross hematuria. Underwent RP in [place]. Shortly thereafter he was started on ADT and radiation. Was not able to complete therapy secondary to severe diarrhea, nausea and vomiting. Had been receiving intermittent ADT. -Significant hot flashes and mood swings with ADT. -PSA undetectable 09/2022. 0.23 ng/mL 12/13/2022. -Dr. Rahman's recommendations that: Continue to monitor PSA every 3 months. Once PSADT <6 months, start intermittent Lupron. Once he develops mCRPC, Provenge vs. Pluvicto would be indicated at that time, pending data from PSMAfore trial, which will be presented at the [employer] Annual [employer] in 01/2023. -PSA doubling time was 2.9 months--restarted Lupron 03/14/2023. -Again educated him on the importance of addressing modifiable cardiovascular risk factors particularly since he will be undergoing intermittent testosterone suppression. He does not appear to be psychologically motivated to quit smoking at this time although he has cut back. -Again discussed the strategy of intermittent ADT. -Testosterone lower and PSA remains lower as well so will hold Lupron for now. Plan: -Hold Lupron for now. -PSA then OV in 3-4 months. -Follow up with PCP for other health issues. Portions of this documentation were copied and pasted from previous office visit notes in order to provide a cohesive continuity of the history. The note has been reviewed and edited and updated as necessary. I spent a total of 15 minutes on the date of the service which included preparing to see the patient, [id number] patient care, completing clinical documentation, obtaining and/or reviewing separately obtained history, performing a medically appropriate examination, counseling and educating the patient/family/caregiver, ordering medications, tests, or procedures, communicating with other HCPs (not separately reported), and communicating results to the patient/family/caregiver. Monica Jung DO documented in this encounter [facility] 12-16-2023 Note HNO ID: [id number] Author: MONICA JUNG DO Service: ? Author Type: Physician Type: Progress Notes Filed: 12/16/2023 08:47 Note Text: Oncologic problem(s): 1) Castrate sensitive prostate cancer. HPI: The patient is a 68-year-old male with past medical history significant for hyperlipidemia, hypertension, moderate COPD, GERD, previous cervical spine surgery, chronic low back pain and prostate cancer. Developed gross hematuria. PSA 50s. RP with penile implant. Bladder tear about a month later. PET--recurrence in prostate bed. 06/2021 4 weeks RT in [place] with GnRH agonist treatment (Lupron). Stopped due to side effects--Severe diarrhea and n/v. PSA undetectable 06/2022. Presumably from Lupron. CT A/P 11/18/2022: IMPRESSION: 1. Postoperative ileus versus changes of early small bowel obstruction within the right pelvis as discussed above. Short-term follow-up suggested. 2. Changes of recent prostatectomy and penile implant. There is a 6.0 x 2.7 x 9.5 cm nonencapsulated postoperative fluid collection within the right lower quadrant subcutaneous fat adjacent to the penile pump. 3. Mild free fluid. 4. Sacral insufficiency fractures. Medically managed for SBO. Presents for ongoing oncologic management. Interim history: Saw Dr. Ariza at 11/10/2023: -Assessment/Plan I personally saw patient and counselled all visit on his diagnosis, kamilla history and coordination of his care. This is a 68 y.o. male man known with LN+ PC on ADT (d/c zytiga/pred and apa s/t AEs) with T > 50 and low PSA and negative recent PSMA (June 2022). He had incomplete salvage XRT but aborted s/t bowel tox. He is discontinuing ADT per pt preference - understands R/A of this decision. He was found with some lung abn, but PET was negative and bronch results pending. He is smoker. Will call him in few weeks to Fup on bronch results We discussed the clinical significance of diagnosis, goals of care and treatment plan in detail. Thank you for the opportunity to be involved in the care of Luis Angel Aguila. Please do not hesitate to reach out with any questions. Thank you. Path was negative. Per recent note from [facility] -Follow up sp EGD with biopsies 11/26/2023. 1 cm circumferential salmon colored mucosa seen at the GE junction at the time of EGD, consistent with short segment Oliver's esophagus. 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 We discussed the etiology of Oliver's and need for continued endoscopic surveillance due to risk of malignancy. Recommend patient continue on his PPI/H2 nabil, repeat EGD in 5 years for surveillance. Hot flashes resolved. No symptoms of LUTS. No change in chronic LBP. 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) No date: S/P prostatectomy No date: Tobacco use disorder PAST SURGICAL HISTORY No date: ABDOMINAL SURGERY HX No date: APPENDECTOMY 12/12/2022: COLONOSCOPY Comment: repeat 5 years No date: FOOT RIGHT OP SURGERY; Right No date: FRACTURE SURGERY No date: REMOVAL OF PROSTATE No date: REPAIR ABDOMINAL HERNIA No date: SHOULDER SURGERY HX; Bilateral No date: XR CERVICAL FUSION OR ALLERGIES Allergen Reactions Morphine Rash, Itching Prednisone Mental Status Change Current Outpatient Medications Medication Sig atenolol (TENORMIN) 25 mg tablet Take one tablet daily along with 50 mg to equal 75 mg daily atenolol (TENORMIN) 50 mg tablet Take one tablet daily along with 25 mg tablet to equal 75 mg daily cyclobenzaprine (FLEXERIL) 10 mg tablet Take 1 tablet by mouth as directed. 1/2 to 1 tablet po qhs as needed for spasm acetaminophen (TYLENOL EXTRA STRENGTH) 500 mg tablet Take 1,000 mg by mouth every 8 hours as needed. atorvastatin (LIPITOR) 40 mg tablet Take 1 tablet by mouth daily at bedtime. For cholesterol. lisinopril (ZESTRIL) 40 mg tablet Take 1 tablet by mouth once daily. pregabalin (LYRICA) 75 mg capsule Take one pill twice daily meloxicam (MOBIC) 15 mg tablet Take 1 tablet by mouth once daily. With food. (Patient not taking: Reported on 09/15/2023) omeprazole (PRILOSEC) 40 mg capsule Take 1 capsule by mouth two times a day. tiotropium-olodaterol (STIOLTO RESPIMAT) 2.5-2.5 mcg/actuation Inhale 2 Puffs as instructed once daily. albuterol HFA (VENTOLIN HFA) 90 mcg/actuation inhaler Inhale 2 Puffs as instructed every 4 hours as needed for wheezing/shortness of breath. aspirin, enteric coated (ASPIRIN, ENTERIC COATED) 81 mg EC tablet Take 81 mg by mouth once daily. docusate sodium (STOOL SOFTENER) 100 mg capsule Take 100 mg by mouth twice daily. cholecalciferol (VITAMIN D-3) 50 mcg (2,00 (more content not included)... [facility] 12-04-2023 Note Luis Angel AguilaISA68 y.o . male BEING SEEN TODAY, 12/04/23, FOR Follow-up and Lung Nodule . Mr. Aguila, 68, past medical history significant for prostatic cancer, history of COPD, smoking with prior history of hemoptysis and lung nodule, was seen post bronch. He is doing okay now. The hemoptysis subsided. Otherwise had a bronchoscopy. So far, cytology is negative. Otherwise denies cough, phlegm, fever. He has been a smoker for the last 40-50 years. IMPRESSION 1. Lung nodule to be followed in January. Return to clinic in 6 months, but advised to get back in January. 2. Hemoptysis, resolved. 3. Continue Stiolto, albuterol for chronic obstructive pulmonary disease. cc:GILDARDO FOSTER, JAMES . HPI Review of Systems Respiratory: Negative. Cardiovascular: Negative. Past Medical History: Diagnosis Date COPD (chronic obstructive pulmonary disease) (HCC) GERD (gastroesophageal reflux disease) Hyperlipemia Hypertension Lung nodule 2016 They only found 1 in [facility] Prior to Admission medications Medication Sig Start Date End Date Taking? Authorizing Provider acetaminophen (TYLENOL) 500 MG tablet Take 2 (two) tablets (1,000 mg total) by mouth every 8 (eight) hours as needed for pain . Yes Provider, MD Fortunato albuterol 90 mcg/actuation inhaler Inhale 2 (two) puffs every 4 (four) hours as needed for wheezing, shortness of breath or cough . 09/24/23 03/22/24 Yes Yon Quinteros MD amLODIPine (NORVASC) 5 MG tablet Take 1 (one) tablet (5 mg total) by mouth daily . 10/30/23 Yes Gildardo Foster CNP aspirin 81 MG EC tablet Take 1 (one) tablet (81 mg total) by mouth daily . Yes Fortunato Hicks MD atenoloL (TENORMIN) 50 MG tablet Take 1 (one) tablet (50 mg total) by mouth daily . 10/30/23 Yes Gildardo Foster CNP atorvastatin (LIPITOR) 40 MG tablet Take 1 (one) tablet (40 mg total) by mouth every night at bedtime . 10/30/23 Yes Gildardo Foster CNP cholecalciferol, vitamin D3, 50 mcg (2,000 unit) Tab Take 1 (one) tablet (2,000 Units total) by mouth daily . Yes Fortunato Hicks MD cyclobenzaprine (FLEXERIL) 10 MG tablet Take 1 (one) tablet (10 mg total) by mouth nightly . 10/30/23 Yes Gildardo Foster CNP docusate sodium (COLACE) 100 MG capsule Take 1 (one) capsule (100 mg total) by mouth 2 (two) times a day . Yes Fortunato Hicks MD famotidine (PEPCID) 40 MG tablet Take 1 (one) tablet (40 mg total) by mouth daily . 10/30/23 10/29/24 Yes Gildardo Foster CNP lisinopriL (PRINIVIL,ZESTRIL) 40 MG tablet Take 1 (one) tablet (40 mg total) by mouth daily . 10/30/23 Yes Gildardo Foster CNP multivitamin with minerals cap Take 1 capsule by mouth daily . Yes Fortunato Hicks MD omeprazole (PRILOSEC) 40 MG capsule Take 1 (one) capsule (40 mg total) by mouth 2 (two) times a day . 10/30/23 Yes Gildardo Foster CNP pregabalin (LYRICA) 75 MG capsule Take 2 (two) capsules (150 mg total) by mouth nightly . 10/30/23 Yes Gildardo Foster CNP spironolactone (ALDACTONE) 25 MG tablet Take 1 (one) tablet (25 mg total) by mouth daily . 10/30/23 Yes Gildardo Foster CNP tiotropium-olodateroL (Stiolto Respimat) 2.5-2.5 mcg/actuation Mist respimat inhaler Inhale 2 (two) puffs daily . 10/30/23 04/27/24 Yes Gildardo Foster CNP OARRS/NARxCHECK Report Received and Assessed: Date controlled substance agreement signed: No data found Date of last drug screen: BP 100/68 (BP Location: Left arm, Patient Position: Sitting, BP Cuff Size: X-large Adult) Pulse 83 Resp 18 Ht 5' 9 Wt 78.9 kg (174 lb) SpO2 94% BMI 25.70 kg/m Physical Exam HENT: Head: Normocephalic and atraumatic. Pulmonary: Effort: Pulmonary effort is normal. No respiratory distress. Neurological: General: No focal deficit present. Mental Status: He is oriented to person, place, and time. Psychiatric: Mood and Affect: Mood normal. Thought Content: Thought content normal. PULMONARY TESTING: @CXR/CT@Interpretation Specimen ANegative for malignant cells at 1520 Interpretation Specimen BNegative for malignant cells at 1520 Luis Angel was seen today for follow-up and lung nodule . Diagnoses and all orders for this visit: Lung nodule Comments: rtc after CT in oct Chronic obstructive pulmonary disease, unspecified COPD type (HCC) Comments: stiolto and albuterol Cigarette smoker Comments: smoking cessation d/w him Yon quinteros MD. AUTHENTICATED BY YON QUINTEROS, ON 12/21/2023 21:14:19 [facility] 12-03-2023 Note Follow up sp EGD wit h biopsies 11/25. 1 cm circumferential salmon colored mucosa seen at the GE junction at the time of EGD, consistent with short segment Oliver's esophagus. 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 We discussed the etiology of Oliver's and need for continued endoscopic surveillance due to risk of malignancy. Recommend patient continue on his PPI/H2 nabil, repeat EGD in 5 years for surveillance. Total face to face time of 10 minutes was spent in discussion with the patient today, with greater than 50% of the face to face time spent in counseling and/or coordination of care. AUTHENTICATED BY SAHIL ALCANTARA, ON 12/03/2023 11:27:42 [facility] 12-03-2023 History of Present illness Narrative Follow up sp EGD with biopsies 11/25. 1 cm circumferential salmon colored mucosa seen at the GE junction at the time of EGD, consistent with short segment Oliver's esophagus. 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 We discussed the etiology of Oliver's and need for continued endoscopic surveillance due to risk of malignancy. Recommend patient continue on his PPI/H2 nabil, repeat EGD in 5 years for surveillance. Total face to face time of 10 minutes was spent in discussion with the patient today, with greater than 50% of the face to face time spent in counseling and/or coordination of care. documented in this encounter [facility] 11-10-2023 History of Present illness Narrative Patient ID: Luis Angel Aguila is a 68 y.o. male. Diagnosis: metastatic PC HISTORY OF PRESENT ILLNESS: 67 yo man visiting from [place] (Dr. Luis Escobedo) here for prostate cancer: H/o htn, oa, mild COPD. 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 12/[address] 01/25 biopsy with grade group 3 prostate adenocarcinoma Bone scan neg 04/20/21 Prostatectomy grade group 2, inv seminal vesicles bilat, extraprostatic extension, PNI/LVI, positive surgical margin, [address] pos - [id number] (Gia 3+4) Post op PSA 18 05/29/21 - PSMA - LN +. / no distant disease. back to OR for vesicoureteral anastomosis for leak 06/2021 Lupron 22.5 mg x 2 - stopped d/t patient preference along with apalutamide - stopped d/t constipation and brain fog 11/07/21 - 12/07/21 EBRT whole pelvis and prostate bed boost - aborted early during third week d/t bowel toxicity (severe diarrhea, c diff neg, nausea and poor by mouth intake) (patients decision) Pt has been on intermittent ADT 03/14/23 - ADT locally 11/10/23 - negative FDG PET. PSA low with ADT. discontinue ADT per pt preference PSA 11/06/23 - 0.02 09/12/23 - 0,03 -- T < 12 06/13/23 - 0.03 03/10/23 - 0.45 -- T 883 02/06/23 - 0.37 OBJECTIVE: VS / Pain: BP 115/81 Pulse 63 Temp 36.8 C (98.2 F) (Core) Resp 18 Wt 77.6 kg (171 lb) SpO2 95% BMI 25.21 kg/m BSA: 1.94 meters squared Performance Status: ECOG Score: 0- Fully active, able to carry on all pre-disease performance w/o restriction. Assessment/Plan I personally saw patient and counselled all visit on his diagnosis, kamilla history and coordination of his care. This is a 68 y.o. male man known with LN+ PC on ADT (d/c zytiga/pred and apa s/t AEs) with T > 50 and low PSA and negative recent PSMA (June 2022). He had incomplete salvage XRT but aborted s/t bowel tox. He is discontinuing ADT per pt preference - understands R/A of this decision. He was found with some lung abn, but PET was negative and bronch results pending. He is smoker. Will call him in few weeks to Fup on bronch results We discussed the clinical significance of diagnosis, goals of care and treatment plan in detail. Thank you for the opportunity to be involved in the care of Luis Angel Aguila. Please do not hesitate to reach out with any questions. Thank you. Rodolfo Ariza MD, Msc, FACP [facility] Family Chair in Cancer Research Co-Leader Genitourinary () Disease Team Director of Medical Oncology Research Program [facility] sports information director [address], [address] [place] [id number] [email or web address] in this encounter [facility] Work Phone: 11-06-2023 Note Subjective Patient ID: Luis Angel Aguila is a 68 y.o. male. HPI Patient referred for evaluation of GERD. Patient reports 30+ years of reflux symptoms. Previously was on xantac, now taking omeprazole BID. Reports he experiences pain in the epigastric region with radiation up the chest. No specific food triggers. Reports symptoms are mostly controlled with medications except for the past several months symptoms have been worse. He reports a remote EGD in the . He does report some decreased appetite and weight loss which he has attributed to the weather. He denies any regurgitation or dysphagia. Past Medical History: Diagnosis Date COPD (chronic obstructive pulmonary disease) (HCC) GERD (gastroesophageal reflux disease) Hyperlipemia Hypertension Lung nodule 2017 They only found 1 in [facility] Past Surgical History: Procedure Laterality Date APPENDECTOMY BLADDER SURGERY 2020 bladder ripped EPIDIDYMECTOMY HAND SURGERY Right boxer HERNIA REPAIR Bilateral inguinal NECK SURGERY plate PENILE PROSTHESIS IMPLANT 2022 [facility] BRONCHOSCOPY W/TRANSBRONCHIAL LUNG BX 1 LOBE Bilateral 11/04/2023 Procedure: BRONCHOSCOPY; BAL; Surgeon: Frank Quinteros MD; Location: [facility]; Service: Pulmonary PROSTATECTOMY right ankle ORIF ROTATOR CUFF REPAIR Bilateral 2014 SPINE SURGERY L4-L5 has a current medication list which includes the following prescription(s): acetaminophen, albuterol, amlodipine, aspirin, atenolol, atorvastatin, cholecalciferol (vitamin d3), cyclobenzaprine, docusate sodium, lisinopril, multivitamin with minerals, omeprazole, pregabalin, spironolactone, stiolto respimat, and famotidine. Allergies: Prednisone and Morphine Social History Socioeconomic History Marital status: Tobacco Use Smoking status: Every Day Current packs/day: 1.00 Average packs/day: 1 pack/day for 60.6 years (60.6 ttl pk-yrs) Types: Cigarettes Start date: 1964 Smokeless tobacco: Never Tobacco comments: 12 PPD 09/24/2023, 2 PPD--10/23/2023 Vaping Use Vaping status: Never Used Substance and Sexual Activity Alcohol use: Not Currently Comment: 1-2/year 09/24/2023 Drug use: Never Comment: 09/24/2023 Social Determinants of Health Financial Resource Strain: Low Risk (03/17/2023) Received from [facility] Overall Financial Resource Strain (CARDIA) Difficulty of Paying Living Expenses: Not hard at all Food Insecurity: No Food Insecurity (10/30/2023) Hunger Vital Sign Worried About Running Out of Food in the Last Year: Never true Ran Out of Food in the Last Year: Never true Transportation Needs: No Transportation Needs (10/30/2023) PRAPARE - Transportation Lack of Transportation (Medical): No Lack of Transportation (Non-Medical): No Physical Activity: Insufficiently Active (03/17/2023) Received from [facility] Exercise Vital Sign Days of Exercise per Week: 1 day Minutes of Exercise per Session: 10 min Stress: No Stress Concern Present (03/17/2023) Received from [facility] - Occupational Stress Questionnaire Feeling of Stress : Only a little Social Connections: Moderately Integrated (03/17/2023) Received from [facility] Social Connection and Isolation Panel [NHANES] Frequency of Communication with Friends and Family: Three times a week Attends Caodaism Services: 1 to 4 times per year Active Member of Clubs or Organizations: No Attends Club or Organization Meetings: Never Marital Status: Housing Stability: Low Risk (10/30/2023) Housing Stability Vital Sign Unable to Pay for Housing in the Last Year: No Number of Times Moved in the Last Year: 0 Homeless in the Last Year: No Family History Problem Relation Age of Onset Cancer Mother Lung COPD Father Review of Systems Constitutional: Negative for activity change, appetite change, chills, fatigue, fever and unexpected weight change. HENT: Negative for hearing loss, nosebleeds and trouble swallowing. Eyes: Negative for visual disturbance. Respiratory: Positive for shortness of breath. Negative for cough, wheezing and stridor. Cardiovascular: Negative for chest pain and leg swelling. Gastrointestinal: Negative for abdominal distention, abdominal pain, blood in stool, constipation, diarrhea, nausea and vomiting. Endocrine: Negative for cold intolerance and heat intolerance. Genitourinary: Negative for difficulty urinating, frequency, hematuria and urgency. Musculoskeletal: Negative for arthralgias. Skin: Negative for rash and wound. Allergic/Immunologic: Negative for environmental allergies and food allergies. Neurological: Negative for seizures, syncope, weakness and numbness. Hematological: Negative for adenopathy. Does not bruise/bleed easily. Psychiatric/Behavioral: Negative for agitation and dysphoric mood. Objective (more content not included)... [facility] 11-06-2023 History of Present illness Narrative Subjective Patient ID: Luis Angel Aguila is a 68 y.o. male. HPI Patient referred for evaluation of GERD. Patient reports 30+ years of reflux symptoms. Previously was on xantac, now taking omeprazole BID. Reports he experiences pain in the epigastric region with radiation up the chest. No specific food triggers. Reports symptoms are mostly controlled with medications except for the past several months symptoms have been worse. He reports a remote EGD in the . He does report some decreased appetite and weight loss which he has attributed to the weather. He denies any regurgitation or dysphagia. Past Medical History: Diagnosis Date COPD (chronic obstructive pulmonary disease) (HCC) GERD (gastroesophageal reflux disease) Hyperlipemia Hypertension Lung nodule 2016 They only found 1 in [facility] Past Surgical History: Procedure Laterality Date APPENDECTOMY BLADDER SURGERY 2020 bladder ripped EPIDIDYMECTOMY HAND SURGERY Right boxer HERNIA REPAIR Bilateral inguinal NECK SURGERY plate PENILE PROSTHESIS IMPLANT 2022 [facility] BRONCHOSCOPY W/TRANSBRONCHIAL LUNG BX 1 LOBE Bilateral 11/04/2023 Procedure: BRONCHOSCOPY; BAL; Surgeon: Frank Quinteros MD; Location: [facility]; Service: Pulmonary PROSTATECTOMY right ankle ORIF ROTATOR CUFF REPAIR Bilateral 2015 SPINE SURGERY L4-L5 has a current medication list which includes the following prescription(s): acetaminophen, albuterol, amlodipine, aspirin, atenolol, atorvastatin, cholecalciferol (vitamin d3), cyclobenzaprine, docusate sodium, lisinopril, multivitamin with minerals, omeprazole, pregabalin, spironolactone, stiolto respimat, and famotidine. Allergies: Prednisone and Morphine Social History Socioeconomic History Marital status: Tobacco Use Smoking status: Every Day Current packs/day: 1.00 Average packs/day: 1 pack/day for 60.6 years (60.6 ttl pk-yrs) Types: Cigarettes Start date: 1964 Smokeless tobacco: Never Tobacco comments: 2 PPD 09/24/2023, 2 PPD--10/23/2023 Vaping Use Vaping status: Never Used Substance and Sexual Activity Alcohol use: Not Currently Comment: 1-2/year 09/24/2023 Drug use: Never Comment: 09/24/2023 Social Determinants of Health Financial Resource Strain: Low Risk (03/17/2023) Received from [facility] Overall Financial Resource Strain (CARDIA) Difficulty of Paying Living Expenses: Not hard at all Food Insecurity: No Food Insecurity (10/30/2023) Hunger Vital Sign Worried About Running Out of Food in the Last Year: Never true Ran Out of Food in the Last Year: Never true Transportation Needs: No Transportation Needs (10/30/2023) PRAPARE - Transportation Lack of Transportation (Medical): No Lack of Transportation (Non-Medical): No Physical Activity: Insufficiently Active (03/17/2023) Received from [facility] Exercise Vital Sign Days of Exercise per Week: 1 day Minutes of Exercise per Session: 10 min Stress: No Stress Concern Present (03/17/2023) Received from [facility] [employer] [place] [facility] - Occupational Stress Questionnaire Feeling of Stress : Only a little Social Connections: Moderately Integrated (03/17/2023) Received from [facility] Social Connection and Isolation Panel [NHANES] Frequency of Communication with Friends and Family: Three times a week Attends Caodaism Services: 1 to 4 times per year Active Member of Clubs or Organizations: No Attends Club or Organization Meetings: Never Marital Status: Housing Stability: Low Risk (10/30/2023) Housing Stability Vital Sign Unable to Pay for Housing in the Last Year: No Number of Times Moved in the Last Year: 0 Homeless in the Last Year: No Family History Problem Relation Age of Onset Cancer Mother Lung COPD Father Review of Systems Constitutional: Negative for activity change, appetite change, chills, fatigue, fever and unexpected weight change. HENT: Negative for hearing loss, nosebleeds and trouble swallowing. Eyes: Negative for visual disturbance. Respiratory: Positive for shortness of breath. Negative for cough, wheezing and stridor. Cardiovascular: Negative for chest pain and leg swelling. Gastrointestinal: Negative for abdominal distention, abdominal pain, blood in stool, constipation, diarrhea, nausea and vomiting. Endocrine: Negative for cold intolerance and heat intolerance. Genitourinary: Negative for difficulty urinating, frequency, hematuria and urgency. Musculoskeletal: Negative for arthralgias. Skin: Negative for rash and wound. Allergic/Immunologic: Negative for environmental allergies and food allergies. Neurological: Negative for seizures, syncope, weakness and numbness. Hematological: Negative for adenopathy. Does not bruise/bleed easily. Psychiatric/Behavioral: Negative for agitation and dysphoric mood. Objective Physical Exam Vitals reviewed. Constitutional: General: He is not in acute distress. Appearance: Normal appearance. He is well-developed. He is not diaphoretic. HENT: Head: Normocephalic and atraumatic. Right Ear: External ear normal. Left Ear: External ear normal. Nose: Nose normal. Eyes: Pupils: Pupils are equal, round, and reactive to light. Neck: Thyroid: No thyromegaly. Vascular: No JVD. Trachea: No tracheal deviation. Cardiovascular: Rate and Rhythm: Normal rate and regular rhythm. Heart sounds: Normal heart sounds. Pulmonary: Effort: Pulmonary effort is normal. No respiratory distress. Breath sounds: Normal breath sounds. Abdominal: General: Bowel sounds are normal. There is no distension. Palpations: Abdomen is soft. There is no mass. Tenderness: There is no abdominal tenderness. There is no guarding or rebound. Musculoskeletal: General: Normal range of motion. Cervical back: Normal range of motion. Skin: General: Skin is warm and dry. Neurological: General: No focal deficit present. Mental Status: He is alert. Mental status is at baseline. Cranial Nerves: No cranial nerve deficit. Psychiatric: Behavior: Behavior normal. Assessment/Plan: Diagnoses and all orders for this visit: Gastroesophageal reflux disease, unspecified whether esophagitis present - Ambulatory referral to General Surgery - Case Request Operating Room: ESOPHAGOGASTRODUODENOSCOPY Heartburn - Case Request Operating Room: ESOPHAGOGASTRODUODENOSCOPY Other orders - Vital signs; Future - Height and weight; Standing - Vital signs; Standing - Insert peripheral IV; Standing - lactated Ringers infusion EGD with biopsies documented in this encounter [facility] 10-30-2023 Evaluation + Plan note Associated Problem(s): Mixed hyperlipidemia Chronic, controlled [facility] 10-30-2023 Evaluation + Plan note Associated Problem(s): Chronic back pain Chronic, controlled [facility] 10-30-2023 Evaluation + Plan note Associated Problem(s): Essential hypertension Chronic, controlled [facility] 10-30-2023 Evaluation + Plan note Associated Problem(s): Aortic aneurysm (HCC) Chronic, stable Follow up cardiology [facility] 10-30-2023 Miscellaneous Notes Associated Problem(s): Mixed hyperlipidemia Chronic, controlled Associated Problem(s): Chronic back pain Chronic, controlled Associated Problem(s): Essential hypertension Chronic, controlled Associated Problem(s): Aortic aneurysm (HCC) Chronic, stable Follow up cardiology Associated Problem(s): COPD (chronic obstructive pulmonary disease) (HCC) Chronic, controlled Associated Problem(s): GERD (gastroesophageal reflux disease) Chronic, uncontrolled Add pepcid and refer for EGD documented in this encounter [facility] 10-30-2023 Evaluation + Plan note Associated Problem(s): COPD (chronic obstructive pulmonary disease) (HCC) Chronic, controlled [facility] 10-30-2023 Evaluation + Plan note Associated Problem(s): GERD (gastroesophageal reflux disease) Chronic, uncontrolled Add pepcid and refer for EGD [facility] 10-30-2023 Instructions Gildardo Foster CNP - 10/30/2023 8:23 AM EDT Thank you for choosing our office for your Medicare Wellness Visit. Below you will find the plans we discussed today for your future medical treatments. Please keep this plan in a visible location so you can refer to it often and let our office know if you have any questions. 5-Year Plan Health Maintenance Topic Date Due Medicare Wellness Visit Never done Falls Risk Assessment Never done Zoster Vaccines (1 of 2) 08/11/2024 (Originally 02/20/2004) COVID-19 Vaccine (2022-24 season) 2024 (Originally 12/20/2022) Colorectal Cancer Screening/Monitoring 11/19/2023 Influenza Vaccine (1) 12/07/2023 Depression Screening/Follow-Up (PHQ-2/9) 08/11/20[address] Low-[address] Lung Cancer Screen 10/09/2024 PSA Level 07/02/2025 Tetanus: Every 10yrs 06/10/2033 Abdominal Aortic Ultrasound Completed Pneumococcal Vaccine: Age 65+ Completed Hepatitis C Screening Discontinued STEADI Low Risk Patient Instructions: Your Falls Screening today shows that you are at low risk for falls. To further protect yourself from falls and maintain your independence, we recommend: 1. Read through the brochure, What You Can Do to Prevent Falls (from [facility]). 2. Go through the brochure, Check for Safety: A Home Fall Prevention Checklist for Older Adults (from [facility]), and make changes as recommended. 3. Join a community falls prevention program: Stepping On, a 7-week evidence based program that teaches balance exercises and fall prevention strategies Florentino Chi for older adults, group exercise that teaches Florentino Chi forms that reduce fall risk (weight shifting, postural alignment and control, and coordinated movements of the arms, legs, head, and trunk) Matter of Balance, an evidence based program designed to reduce the fear of falling and increase activity levels of older adults OR an exercise class for strength and balance. 4. Take your Vitamin D with or without Calcium, as determined by your healthcare provider. 5. Get your vision and hearing checked annually. Falls At Home Each year, thousands of older Americans fall at home. Many of them are seriously injured, and some are disabled. In 2011, nearly 23,000 people over age 65 and 2.4 million were treated in emergency departments because of falls. Falls are often due to hazards that are easy to overlook but easy to fix. This checklist will help you find and fix those hazards in your home. The checklist asks about hazards found in each room of your home. For each hazard, the checklist tells you how to fix the problem. At the end of the checklist, you ll find other tips for preventing falls. FLOORS: Look at the floor in each room. Q: When you walk through a room, do you have to walk around furniture? A. Ask someone to move the furniture so your path is clear Q: Do you have throw rugs on the floor? A. Remove the rugs or use double-sided tape or a non-slip backing so the rugs won t slip. Q: Are there papers, books, towels, shoes, magazines, boxes, blankets, or other objects on the floor? A.supervisor enrobing things that are on the floor. Always keep objects off the floor. Q: Do you have to walk over or around wires or cords (like lamp, telephone, or extension cords)? A. Coil or tape cords and wires next to the wall so you can t trip over them. If needed, have an electrician helper powerhouse put in another outlet. STAIRS AND STEPS: Look at the stairs you use both inside and outside your home. Q: Are there papers, shoes, books, or other objects on the stairs? A. supervisor enrobing things on the stairs. Always keep objects off stairs. Q: Are some steps broken or uneven? A. Fix loose or uneven steps. Q: Are you missing a light over the stairway? A. Have an electrician helper powerhouse put in an overhead light at the top and bottom of the stairs. Q: Do you have only one light switch for your stairs (only at the top or at the bottom of the stairs)? A. Have an electrician helper powerhouse put in a light switch at the top and bottom of the stairs. You can get light switches that glow. Q: Has the stairway light bulb burned out? A. Have a friend or family member change the light bulb. Q: Is the carpet on the steps loose or torn? A. Make sure the carpet is firmly attached to every step, or remove the carpet and attach non-slip rubber treads to the stairs. Q: Are the handrails loose or broken? Is there a handrail on only one side of the stairs? A. Fix loose handrails or put in new ones. Make sure handrails are on both sides of the stairs and are as long as the stairs. KITCHEN: Look at your kitchen and eating area. Q: Are the things you use often on high shelves? A. Move items in your cabinets. Keep things you use often on the lower shelves (about waist level). Q: Is your step stool unsteady? A. If you must use a step stool, get one with a bar to hold on to. Never use a chair as a step stool. BATHROOMS: Look at all your bathrooms. Q: Is the tub or shower floor slippery? A. Put a non-slip rubber mat or self-stick strips on the floor of the tub or shower. Q: Do you need some support when you get in and out of the tub or up from the toilet? A. Have grab bars put in next to and inside the tub and next to the toilet. BEDROOMS: Look at all your bedrooms. Q: Is the light near the bed hard to reach? A. Place a lamp close to the bed where it s easy to reach. Q: Is the path from your bed to the bathroom dark? A. Put in a night-light so you can see where you re walking. Some night-lights go on by themselves after dark. Other Things You Can Do to Prevent Falls Do exercises that improve your balance and make your legs stronger. Exercise also helps you feel better and more confident. Have your doctor or pharmacist look at all the medicines you take, even [id number] medicines. Some medicines can make you sleepy or dizzy. Have your eyes checked by an eye doctor at least once a year and update your glasses. Get up slowly after you sit or lie down. Wear shoes both inside and outside the house. Avoid going barefoot or wearing slippers. Improve the lighting in your home. Put in brighter light bulbs. Florescent bulbs are bright and cost less to use. It s safest to have uniform lighting in a room. Add lighting to dark areas. Hang lightweight curtains or shades to reduce glare. [place] a contrasting color on the top edge of all steps so you can see the stairs better. For example, use a light color paint on dark wood. To access this brochure online, please visit the CDC website at http://www.cdc.gov/steadi/pdf/check_fo r_safety_brochure-a.pdf Chair Rise Exercise What it does: Strengthens the muscles in your thighs & buttocks. Goal: To do this exercise without using your hands as you become stronger. How to do it: 1. Sit toward the front of a sturdy chair with your knees bent & feet flat on the floor shoulder-width apart 2. Rest your hands lightly on the seat on either side of you, keeping your back & neck straight & and chest slightly forward. 3. Breathe in slowly. Lean forward & feel your weight on the front of your feet. 4. Breathe out and slowly stand up, using your hands as little as possible. 5. Pause for a full breath in & out. 6. Breathe in as you slowly sit down. Do not let yourself collapse back down into the chair. Rather, control your lowering as much as possible. 7. Breathe out. Repeat 10-15 times. If this number is too hard for you when you first start practicing this exercise, begin with fewer and work up to this number. Rest for a minute & then do a final set of 10-15. For detailed instructions, please visit the CDC website at http://www.cdc.gov/steadi/pdf/chair_ri se_exercise-a.pdf Stepping On is an evidence based program proven to reduce falls in older adults. It is a workshop offered once a week for seven weeks. In a small-group setting, you will learn balance exercises and develop specific knowledge and skills to prevent falls. Older adults who should attend are those who: are at risk of falling who have fallen one or more times lives at home are able to walk without the help of another person Local guest experts provide information on exercise, safety, vision, and medications. Classes are offered at [facility]. To find out specifics about a class, please call [phone]. Florentino chi: Moving for Better Balance involves low impact exercise. The 12-week class is offered for three hours per week and is led by a trained work adjustment instructor. It is intended for people aged 60 and older. Participants learn and perform a program of eight forms that progress from easy to more difficult. The program can accommodate persons with various physical conditions. Health Benefits of Florentino Chi: Moving for Better Balance: Improved social and mental well-being, Improved balance and physical functioning, Improved confidence in conducting daily activities, Reduced risk of falling and sustaining associated injuries, and Maintained independence and improved quality of life. To find a Florentino Chi program in your area or additional resources about fall prevention please contact: [facility] Violence and Injury Prevention Program at [phone] or [email or web address] A Matter of Balance: Managing Concerns about Falls is an evidence based program designed to reduce the fear of falling and increase activity levels of older adults. A trained manager fine leads 8 two-hour sessions for small groups of older adults. The class is intended for people 60 and older who are at risk of falling have a fear of falling or restrict activities who have fallen in the past are interested in improving flexibility, balance, and strength. Participants will learn to view falls as controllable, set goals to increase activity levels, and reduce fall risks at home. Classes are offered in all [address] [place] [address] in [place]. For more information about specific classes near you, please visit http://aging.[place].gov/steadyu/resource s/matterofbalance.aspx. documented in this encounter [facility] 10-30-2023 Note Subjective: Luis Angel Aguila is a 68 y.o. male here for a Medicare Annual Wellness Visit. Hypertension -home blood pressure 120/70-no added salt GERD-states not doing well-omeprazole BID not holding COPD-albuterol 2/week HLD declines problems with statin Aortic aneurysm cardiology 2/year Chronic back pain-controlled with Lyrica-still working eats well Last eye exam 2022 Review of Systems Constitutional: Negative. HENT: Negative. Eyes: Negative. Respiratory: Positive for shortness of breath. No change Cardiovascular: Negative. Gastrointestinal: Negative. Endocrine: Negative. Genitourinary: Negative. Musculoskeletal: Negative. Skin: Negative. Neurological: Negative. Psychiatric/Behavioral: Negative. Reviewed by Provider: Tobacco Allergies Meds Problems Med Hx Surg Hx Fam Hx Care Team Patient Care Team: Gildardo Foster CNP as PCP - General (Nurse Practitioner) Pharmacy / Equipment Co. (DME) [facility] - [place], [place] - [address] [id number] Medicare Risk Assessment Do you have an Advanced Directive (Living Will and/or Durable Power of Lime Spreader for Health Care)? If not, would you like more information about Advanced Directives?: Yes What is your exercise level?: Light (like stretching/slow walking) What is your diet?: Regular Can you prepare your own meals?: Yes Do you have trouble with finding transportation?: No Because of any health problems, do you need the help of another person with your personal care needs? (For example, eating, bathing, dressing, or getting around the house.): No Does your home have throw rugs, poor lighting or slippery bathtub or shower?: (!) Throw Rugs; Slippery Bathtub/Shower Does your home have grab bars in bathrooms or handrails on stairs and steps?: (!) Only handrails on the stairs During the past four weeks, how would you rate your health in general?: Good Whether or not you use a hearing aid, do you think you have a hearing problem or do others think you have a hearing problem?: No Whether or not you use glasses or contacts, do you have difficulty driving, watching television, reading, or doing any of your daily activities because of your eyesight?: No In the past six months, have you had an unexplained weight loss of 10 pounds or more?: (!) Yes Do you take your medications as prescribed?: I do not miss doses of my medications During the past four weeks, how much have you been bothered by emotional problems such as feeling anxious, depressed, irritable, sad, or downhearted and blue?: Not at all During the past four weeks, has your physical and emotional health limited your social activites with family, friends, neighbors, or groups? : Not at all Falls Risk Assessment Is Patient Ambulatory?: Y Fell in past year: 2 (Yes) How many falls in the past year?: 1 Did any of these falls result in an injury?: No Unsteady when walks: 0 (No) Worried about fallin (No) Advised to use cane/walker?: 0 (No) Holds onto furniture/ambrocio: 0 (No) Uses hands to stand up from a chair: 0 (No) Trouble stepping onto curb: 0 (No) Rushes to toilet: 0 (No) Lost feeling in feet: 0 (No) Medicine makes me light-headed: 0 (No) Medicine for sleep or mood: 0 (No) Often feel sad/depressed: 0 (No) Patient Self Risk Assessment Score: 2 Timed Up and Go (TUG): 12 seconds or less Medicare Mini Cog Step 1: Three Word Registration Version Used: Version 1: Banana, [place], Chair Step 2: Clock Drawing Step 2 score: Normal clock - 2 points Clock has all numbers placed in the correct sequence & position (e.g., 12, 3, 6 and 9 are in anchor positions) with no missing or duplicate numbers. Hands are pointing to the 11 & 2 (11:10). Hand length is not scored. Step 3: Three Word Recall Record patient's answers to the right: banana, sunrise, chair Step 3: Three Word Recall Score: 3 Words Recalled Total score = Word Recall score + Clock Draw score A cut point of <3 on the Mini-Cog has been validated for dementia screening, but many individuals with clinically meaningful cognitive impairment will score higher. A cut point of <4 may indicate a need for further evaluation of cognitive status.: 5 5-Year Plan: Health Maintenance Topic Date Due Falls Risk Assessment Never done Zoster Vaccines (1 of 2) 08/11/2024 (Originally 02/20/2004) COVID-19 Vaccine (2022- season) 2024 (Originally 12/20/2022) Colorectal Cancer Screening/Monitoring 11/19/2023 Influenza Vaccine (1) 12/07/2023 Depression Screening/Follow-Up (PHQ-2/9) 08/11/20[address] Low-dose CT Lung Cancer Screen 10/09/2024 Medicare Wellness Visit 10/29/2024 PSA Level 07/02/2025 Tetanus: Every 10yrs 06/10/2033 Abdominal Aortic Ultrasound Completed Pneumococcal Vaccine: Age 65+ Completed Hepatitis C Screening Discontinued Immunization History A (more content not included)... [facility] 10-30-2023 History of Present illness Narrative Subjective: Luis Angel Aguila is a 68 y.o. male here for a Medicare Annual Wellness Visit. Hypertension -home blood pressure 120/70-no added salt GERD-states not doing well-omeprazole BID not holding COPD-albuterol 2/week HLD declines problems with statin Aortic aneurysm cardiology 2/year Chronic back pain-controlled with Lyrica-still working eats well Last eye exam 2022 Review of Systems Constitutional: Negative. HENT: Negative. Eyes: Negative. Respiratory: Positive for shortness of breath. No change Cardiovascular: Negative. Gastrointestinal: Negative. Endocrine: Negative. Genitourinary: Negative. Musculoskeletal: Negative. Skin: Negative. Neurological: Negative. Psychiatric/Behavioral: Negative. Reviewed by Provider: Tobacco Allergies Meds Problems Med Hx Surg Hx Fam Hx Care Team Patient Care Team: Gildardo Foster CNP as PCP - General (Nurse Practitioner) Pharmacy / Equipment Co. (DME) [facility] - [place], [place] - [address] [id number] Medicare Risk Assessment Do you have an Advanced Directive (Living Will and/or Durable Power of Lime Spreader for Health Care)? If not, would you like more information about Advanced Directives?: Yes What is your exercise level?: Light (like stretching/slow walking) What is your diet?: Regular Can you prepare your own meals?: Yes Do you have trouble with finding transportation?: No Because of any health problems, do you need the help of another person with your personal care needs? (For example, eating, bathing, dressing, or getting around the house.): No Does your home have throw rugs, poor lighting or slippery bathtub or shower?: (!) Throw Rugs; Slippery Bathtub/Shower Does your home have grab bars in bathrooms or handrails on stairs and steps?: (!) Only handrails on the stairs During the past four weeks, how would you rate your health in general?: Good Whether or not you use a hearing aid, do you think you have a hearing problem or do others think you have a hearing problem?: No Whether or not you use glasses or contacts, do you have difficulty driving, watching television, reading, or doing any of your daily activities because of your eyesight?: No In the past six months, have you had an unexplained weight loss of 10 pounds or more?: (!) Yes Do you take your medications as prescribed?: I do not miss doses of my medications During the past four weeks, how much have you been bothered by emotional problems such as feeling anxious, depressed, irritable, sad, or downhearted and blue?: Not at all During the past four weeks, has your physical and emotional health limited your social activites with family, friends, neighbors, or groups? : Not at all Falls Risk Assessment Is Patient Ambulatory?: Y Fell in past year: 2 (Yes) How many falls in the past year?: 1 Did any of these falls result in an injury?: No Unsteady when walks: 0 (No) Worried about fallin (No) Advised to use cane/walker?: 0 (No) Holds onto furniture/ambrocio: 0 (No) Uses hands to stand up from a chair: 0 (No) Trouble stepping onto curb: 0 (No) Rushes to toilet: 0 (No) Lost feeling in feet: 0 (No) Medicine makes me light-headed: 0 (No) Medicine for sleep or mood: 0 (No) Often feel sad/depressed: 0 (No) Patient Self Risk Assessment Score: 2 Timed Up and Go (TUG): 12 seconds or less Medicare Mini Cog Step 1: Three Word Registration Version Used: Version 1: Banana, [place], Chair Step 2: Clock Drawing Step 2 score: Normal clock - 2 points Clock has all numbers placed in the correct sequence & position (e.g., 12, 3, 6 and 9 are in anchor positions) with no missing or duplicate numbers. Hands are pointing to the 11 & 2 (11:10). Hand length is not scored. Step 3: Three Word Recall Record patient's answers to the right: banana, sunrise, chair Step 3: Three Word Recall Score: 3 Words Recalled Total score = Word Recall score + Clock Draw score A cut point of <3 on the Mini-Cog has been validated for dementia screening, but many individuals with clinically meaningful cognitive impairment will score higher. A cut point of <4 may indicate a need for further evaluation of cognitive status.: 5 5-Year Plan: Health Maintenance Topic Date Due Falls Risk Assessment Never done Zoster Vaccines (1 of 2) 08/11/2024 (Originally 02/20/2004) COVID-19 Vaccine (2022- season) 2024 (Originally 12/20/2022) Colorectal Cancer Screening/Monitoring 11/19/2023 Influenza Vaccine (1) 12/07/2023 Depression Screening/Follow-Up (PHQ-2/9) 08/11/20[address] Low-dose [address] Lung Cancer Screen 10/09/2024 Medicare Wellness Visit 10/29/2024 PSA Level 07/02/2025 Tetanus: Every 10yrs 06/10/2033 Abdominal Aortic Ultrasound Completed Pneumococcal Vaccine: Age 65+ Completed Hepatitis C Screening Discontinued Immunization History Administered Date(s) Administered [employer] COVID-19 VACCINE BIVALENT BOOSTER (12+) 10/25/2022 Pneumococcal Conjugate 20-Valent (Prevnar 20) 06/11/2023 Tdap 06/11/2023 Objective: BP 117/78 Pulse 65 Temp 98.4 F (36.9 C) (Temporal) Ht 5' 9.5 Wt 78 kg (172 lb) SpO2 93% BMI 25.04 kg/m Hearing/Vision Screen No results found. Physical Exam Constitutional: General: He is not in acute distress. Appearance: Normal appearance. He is normal weight. He is not ill-appearing or toxic-appearing. HENT: Right Ear: Tympanic membrane, ear canal and external ear normal. Left Ear: Tympanic membrane, ear canal and external ear normal. Mouth/Throat: Mouth: Mucous membranes are moist. Eyes: Extraocular Movements: Extraocular movements intact. Pupils: Pupils are equal, round, and reactive to light. Neck: Vascular: No carotid bruit. Cardiovascular: Rate and Rhythm: Normal rate and regular rhythm. Pulses: Normal pulses. Heart sounds: Normal heart sounds. Pulmonary: Effort: Pulmonary effort is normal. Breath sounds: Normal breath sounds. Abdominal: General: Abdomen is flat. Bowel sounds are normal. Palpations: Abdomen is soft. Musculoskeletal: General: Normal range of motion. Cervical back: Normal range of motion and neck supple. Right lower leg: No edema. Left lower leg: No edema. Comments: Pain with neck, shoulder and lower back ROM Skin: General: Skin is warm. Capillary Refill: Capillary refill takes less than 2 seconds. Neurological: Mental Status: He is alert and oriented to person, place, and time. Cranial Nerves: No cranial nerve deficit. Sensory: No sensory deficit. Motor: No weakness. Coordination: Coordination normal. Gait: Gait normal. Deep Tendon Reflexes: Reflexes normal. Psychiatric: Mood and Affect: Mood normal. Behavior: Behavior normal. Thought Content: Thought content normal. Judgment: Judgment normal. I am managing Luis Angel Aguila for complex chronic condition(s) serving as the focal point for the patient's care for consistency and continuity over time. Assessment/Plan: Diagnoses and all orders for this visit: Mixed hyperlipidemia - Comprehensive Metabolic Panel; Future - Lipid Panel; Future Essential hypertension - TSH with Reflex Free T4; Future - amLODIPine (NORVASC) 5 MG tablet; Take 1 (one) tablet (5 mg total) by mouth daily . Aortic aneurysm, unspecified portion of aorta, unspecified whether ruptured (HCC) Panlobular emphysema (HCC) Gastroesophageal reflux disease, unspecified whether esophagitis present - TSH with Reflex Free T4; Future - famotidine (PEPCID) 40 MG tablet; Take 1 (one) tablet (40 mg total) by mouth daily . - Ambulatory referral to General Surgery; Future General medical exam Personal history of tobacco use At low risk for fall Chronic bilateral low back pain without sciatica - pregabalin (LYRICA) 75 MG capsule; Take 2 (two) capsules (150 mg total) by mouth nightly . Other orders - lisinopriL (PRINIVIL,ZESTRIL) 40 MG tablet; Take 1 (one) tablet (40 mg total) by mouth daily . - spironolactone (ALDACTONE) 25 MG tablet; Take 1 (one) tablet (25 mg total) by mouth daily . - atenoloL (TENORMIN) 50 MG tablet; Take 1 (one) tablet (50 mg total) by mouth daily . - atorvastatin (LIPITOR) 40 MG tablet; Take 1 (one) tablet (40 mg total) by mouth every night at bedtime . - omeprazole (PRILOSEC) 40 MG capsule; Take 1 (one) capsule (40 mg total) by mouth 2 (two) times a day . - tiotropium-olodateroL (Stiolto Respimat) 2.5-2.5 mcg/actuation Mist respimat inhaler; Inhale 2 (two) puffs daily . - cyclobenzaprine (FLEXERIL) 10 MG tablet; Take 1 (one) tablet (10 mg total) by mouth nightly . Vaccination counseling provided but patient/guardian declined. Return in about 3 months (around 01/30/2024) for Recheck GERD, lung nodule. Patient Instructions (the written plan) and additional handouts provided to the patient with their After Visit Summary. 08/12/2023 8:48 AM 10/30/2023 8:24 AM Depression Screening Little interest or pleasure in doing things 0 0 Feeling down, depressed, or hopeless 0 0 PHQ-2 Total Score 0 0 documented in this encounter [facility] 10-23-2023 Instructions Frank Quinteros MD - 10/23/2023 11:08 AM EDT We will plan for bronchoscopy, and evaluation for the coughing up of blood on 11/04/2023. The tentative time is around 1:30 PM, which means he will have to arrive around 12:30 PM this time is tentative. You will get a call the day before with final reporting time. Nothing to eat after midnight The morning of procedure, you may have black coffee (NO cream or milk), gatorade, or water before 8 am. Morning of procedure, HOLD all medicines except the atenolol Please follow-up the results with Dr. Yon Quinteros documented in this encounter [facility] 10-23-2023 Note Interventional Pulmo nology Outpatient Consult Note Reason for Consultation: Hemoptysis Follows with Dr. Yon Quinteros, patient is new to me History of Presenting Illness: Luis Angel Aguila is a 68 y.o. male, 1/2 ppd smoker for 60 years, COPD, who is referred to us by his primary multiple drum sander Dr. Yon Quinteros for hemoptysis. He states several weeks ago he had developed some hemoptysis which initially was almost daily about a tablespoon each time 3-4 times per day. However it has now improved and is now just occasional, maybe only 3-4 times a week with blood-tinged sputum only. He otherwise denies any fevers or chills. Again it has now improved and is only slight/intermittent. He states he had a similar episode 6 years ago when he had been visiting [place], which she thinks may have been attributed to the altitude. He was reportedly seen in the local hospital there and told he may have a nodule, and he was treated with an epi wash. Otherwise at baseline, he gets dyspnea with exertion, overall has improved o Stiolto. 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 Review of Systems: Relevant ROS per above HPI section, remainder of the ROS is negative Past Medical History Past Medical History: Diagnosis Date COPD (chronic obstructive pulmonary disease) ([facility]) GERD (gastroesophageal reflux disease) Hyperlipemia Hypertension Lung nodule 2016 They only found 1 in [facility] Allergies and Medications: Allergies: I have reviewed the patient's allergies. Prednisone and Morphine Current Outpatient Medications Medication Instructions acetaminophen (TYLENOL) 1,000 mg, Oral, Every 8 hours PRN albuterol 90 mcg/actuation inhaler 2 puffs, Inhalation, Every 4 hours PRN amLODIPine (NORVASC) 5 mg, Oral, Daily aspirin 81 mg, Oral, Daily atenoloL (TENORMIN) 50 mg, Oral, Daily atorvastatin (LIPITOR) 40 mg, Oral, Every night at bedtime cholecalciferol (vitamin D3) 2,000 Units, Oral, Daily cyclobenzaprine (FLEXERIL) 10 mg, Oral, Nightly docusate sodium (COLACE) 100 mg, Oral, 2 times daily famotidine (PEPCID) 40 mg, Oral, Daily lisinopriL (PRINIVIL,ZESTRIL) 40 mg, Oral, Daily multivitamin with minerals cap 1 capsule, Oral, Daily omeprazole (PRILOSEC) 40 mg, Oral, 2 times daily pregabalin (LYRICA) 150 mg, Oral, Nightly spironolactone (ALDACTONE) 25 mg, Oral, Daily tiotropium-olodateroL (Stiolto Respimat) 2.5-2.5 mcg/actuation Mist respimat inhaler 2 puffs, Inhalation, Daily Exam: Respiratory Support PACU Vitals 10/23/23 1024 BP: 135/87 Pulse: 65 SpO2: 93% General: NAD, conversing normally HEENT: Atraumatic, normocephalic. Oropharynx Clear. Neck supple Cardiovascular: RRR, no murmur Respiratory: Normal respiratory effort. Clear to ausculation. No wheezes/rales. Abdomen: Soft, non-distended Musculoskeletal: No obvious deformity. Extremities: No clubbing or cyanosis. Neurological: Non-focal examination. Skin: no rash DIAGNOSTICS 10/22 preop cbc, bmp, inr all normal IMAGING CT chest 10/10/2023 reviewed versus the older low-dose chest CT 08/21/2023: The right middle lobe medial nodule adjacent to the cardiac border is unchanged on the latest scan otherwise also stable subcentimeter bilateral small lung nodules. Moderate emphysema. CT chest 10/10/23 impression reviewed: RML nodule 1.6 x 0.9 cm nodule mildly decreased from 08/2023, recommend 3-[address] Additional subpleural nodules up to 7 mm unchanged from 08/2023 No lymphadenopathy Mild emphysematous changes Suggestion of reflux PET scan 10/01/23 reviewed chest portion: No uptake in the right middle lobe medial density, which again looks partly atelectatic in nature to me. No PET avid chest adenopathy, and there is really no PET avid chest lesion. PET scan 10/01/23 impression reviewed: Lungs nodules are NOT pet avid, recommend ct chest 3 months No other hypermetabolic mass or adenopathy identified Unchanged RML medial nodularity (looks partly atelectatic in nature, NOT PET avid). New scan on R Impression and Recommendations Hemoptysis - now almost completely resolved - suspect was infectious/inflammatory in nature, but we can do bronchoscopy and BAL to confirm. Suspect he may have had RML pneumonia with imaging findings of the RML fleeting like density RML nodule/fleeting like density -The PET scan is negative, no uptake in the RML atelectatic like density/nodularity, which may even be slightly smaller from 08/2023 - Possible this could have been infectious culprit. -Likely start middle density could be sampled with time, I do not think it is necessary at this time. It is not PET avid, may be slightly smaller, and appears atelectatic in nature. In my opinion at the current time the risk of sampli (more content not included)... [facility] 10-23-2023 History of Present illness Narrative Images from the original note were not included. Interventional Pulmonology Outpatient Consult Note Reason for Consultation: Hemoptysis Follows with Dr. Yon Quinteros, patient is new to me History of Presenting Illness: Luis Angel Aguila is a 68 y.o. male, 1/2 ppd smoker for 60 years, COPD, who is referred to us by his primary multiple drum sander Dr. Yon Quinteros for hemoptysis. He states several weeks ago he had developed some hemoptysis which initially was almost daily about a tablespoon each time 3-4 times per day. However it has now improved and is now just occasional, maybe only 3-4 times a week with blood-tinged sputum only. He otherwise denies any fevers or chills. Again it has now improved and is only slight/intermittent. He states he had a similar episode 6 years ago when he had been visiting [place], which she thinks may have been attributed to the altitude. He was reportedly seen in the local hospital there and told he may have a nodule, and he was treated with an epi wash. Otherwise at baseline, he gets dyspnea with exertion, overall has improved o Stiolto. 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 Review of Systems: Relevant ROS per above HPI section, remainder of the ROS is negative Past Medical History Past Medical History: Diagnosis Date COPD (chronic obstructive pulmonary disease) ([facility]) GERD (gastroesophageal reflux disease) Hyperlipemia Hypertension Lung nodule 2016 They only found 1 in [facility] Allergies and Medications: Allergies: I have reviewed the patient's allergies. Prednisone and Morphine Current Outpatient Medications Medication Instructions acetaminophen (TYLENOL) 1,000 mg, Oral, Every 8 hours PRN albuterol 90 mcg/actuation inhaler 2 puffs, Inhalation, Every 4 hours PRN amLODIPine (NORVASC) 5 mg, Oral, Daily aspirin 81 mg, Oral, Daily atenoloL (TENORMIN) 50 mg, Oral, Daily atorvastatin (LIPITOR) 40 mg, Oral, Every night at bedtime cholecalciferol (vitamin D3) 2,000 Units, Oral, Daily cyclobenzaprine (FLEXERIL) 10 mg, Oral, Nightly docusate sodium (COLACE) 100 mg, Oral, 2 times daily famotidine (PEPCID) 40 mg, Oral, Daily lisinopriL (PRINIVIL,ZESTRIL) 40 mg, Oral, Daily multivitamin with minerals cap 1 capsule, Oral, Daily omeprazole (PRILOSEC) 40 mg, Oral, 2 times daily pregabalin (LYRICA) 150 mg, Oral, Nightly spironolactone (ALDACTONE) 25 mg, Oral, Daily tiotropium-olodateroL (Stiolto Respimat) 2.5-2.5 mcg/actuation Mist respimat inhaler 2 puffs, Inhalation, Daily Exam: Respiratory Support PACU Vitals 10/23/23 1024 BP: 135/87 Pulse: 65 SpO2: 93% General: NAD, conversing normally HEENT: Atraumatic, normocephalic. Oropharynx Clear. Neck supple Cardiovascular: RRR, no murmur Respiratory: Normal respiratory effort. Clear to ausculation. No wheezes/rales. Abdomen: Soft, non-distended Musculoskeletal: No obvious deformity. Extremities: No clubbing or cyanosis. Neurological: Non-focal examination. Skin: no rash DIAGNOSTICS 10/22 preop cbc, bmp, inr all normal IMAGING CT chest 10/10/2023 reviewed versus the older low-dose chest CT 08/21/2023: The right middle lobe medial nodule adjacent to the cardiac border is unchanged on the latest scan otherwise also stable subcentimeter bilateral small lung nodules. Moderate emphysema. CT chest 10/10/23 impression reviewed: RML nodule 1.6 x 0.9 cm nodule mildly decreased from 08/2023, recommend 3-[address] Additional subpleural nodules up to 7 mm unchanged from 08/2023 No lymphadenopathy Mild emphysematous changes Suggestion of reflux PET scan 10/01/23 reviewed chest portion: No uptake in the right middle lobe medial density, which again looks partly atelectatic in nature to me. No PET avid chest adenopathy, and there is really no PET avid chest lesion. PET scan 10/01/23 impression reviewed: Lungs nodules are NOT pet avid, recommend ct chest 3 months No other hypermetabolic mass or adenopathy identified Unchanged RML medial nodularity (looks partly atelectatic in nature, NOT PET avid). New scan on R Impression and Recommendations Hemoptysis - now almost completely resolved - suspect was infectious/inflammatory in nature, but we can do bronchoscopy and BAL to confirm. Suspect he may have had RML pneumonia with imaging findings of the RML fleeting like density RML nodule/fleeting like density -The PET scan is negative, no uptake in the RML atelectatic like density/nodularity, which may even be slightly smaller from 08/2023 - Possible this could have been infectious culprit. -Likely start middle density could be sampled with time, I do not think it is necessary at this time. It is not PET avid, may be slightly smaller, and appears atelectatic in nature. In my opinion at the current time the risk of sampling the lesion next to the cardiac border outweighs any benefit. However I am planning on doing BAL in this region given potential infection. Consent for bronchoscopy and bilateral BAL (RML medial segment, lingula) obtained He already has follow up CT chest 01/08/[address] Yon Quinteros Follow up after with Dr. Yon Quinteros MD Interventional Pulmonology documented in this encounter [facility] 10-13-2023 Telephone encounter Note Last OV: 08/12/2023 Next OV: 10/30/2023 Patient was due to be seen 09/09/2023 but has cancelled 3 appts via MyChart Atorvastatin: Filled by previous PCP Flexeril: Filled by previous PCP Omeprazole: Filled by previous PCP [facility] 10-13-2023 Miscellaneous Notes Last OV: 08/12/2023 Next OV: 10/30/2023 Patient was due to be seen 09/09/2023 but has cancelled 3 appts via MyChart Atorvastatin: Filled by previous PCP Flexeril: Filled by previous PCP Omeprazole: Filled by previous PCP documented in this encounter [facility] 09-30-2023 History of Present illness Narrative Patient ID: Luis Angel Aguila is a 68 y.o. male. Diagnosis: metastatic PC HISTORY OF PRESENT ILLNESS: 67 yo man visiting from [place] (Dr. Luis Escobedo) here for prostate cancer: H/o htn, oa, mild COPD. 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 12/[address] 01/25 biopsy with grade group 3 prostate adenocarcinoma Bone scan neg 04/20/21 Prostatectomy grade group 2, inv seminal vesicles bilat, extraprostatic extension, PNI/LVI, positive surgical margin, [address] pos - [id number] (Gia 3+4) Post op PSA 18 05/29/21 - PSMA - LN +. / no distant disease. back to OR for vesicoureteral anastomosis for leak 06/2021 Lupron 22.5 mg x 2 - stopped d/t patient preference along with apalutamide - stopped d/t constipation and brain fog 11/07/21 - 12/07/21 EBRT whole pelvis and prostate bed boost - aborted early during third week d/t bowel toxicity (severe diarrhea, c diff neg, nausea and poor by mouth intake) (patients decision) Pt has been on intermittent ADT 03/14/23 - ADT locally PSA 09/12/23 - 0,03 -- T < 12 06/13/23 - 0.03 03/10/23 - 0.45 -- T 883 02/06/23 - 0.37 OBJECTIVE: VS / Pain: There were no vitals taken for this visit. BSA: There is no height or weight on file to calculate BSA. Performance Status: ECOG Score: 0- Fully active, able to carry on all pre-disease performance w/o restriction. Assessment/Plan I personally saw patient and counselled all visit on his diagnosis, kamilla history and coordination of his care. This is a 68 y.o. male man known with LN+ PC on ADT (d/c zytiga/pred and apa s/t AEs) with T > 50 and undetectable PSA and negative recent PSMA (June 2022). He had incomplete salvage XRT but aborted s/t bowel tox. On intermittent ADT with local team. He was found with some lung abn, has PET and bronch scheduled. He is smoker. We discussed the clinical significance of diagnosis, goals of care and treatment plan in detail. Thank you for the opportunity to be involved in the care of Luis Angel Aguila. Please do not hesitate to reach out with any questions. Thank you. Rodolfo Ariza MD, Msc, FACP [facility] Chair in Cancer Research Co-Leader Genitourinary () Disease Team Director of Medical Oncology Research Program [facility] sports information director [address] [place] [address] [email or web address] documented in this encounter [facility] Work Phone: 09-29-2023 History of Present illness Narrative Luis Angel Aguila [id number] [email or web address] Frantz Manzo MD 09/29/23 Outpatient clinic Consultation Request was placed by PCP for incidental finding of slight dilatation of the ascending aorta in the process of a workup for a lung nodule Slight dilatation of the ascending aorta History of Present Illness 68 years old patient I was asked to see to render opinion in reference of incidental finding of slight dilatation of the ascending aorta in the process of the patient being worked up for lung issues Patient has never been made aware of any issues relating to his ascending aorta he has never reported any history of severe acute pain in between his shoulder blades Patient has history of essential hypertension CT CHEST LOW DOSE LUNG SCREENING - [facility] 08/21/2023 COMPARISON: None available at time of dictation. FINDINGS: Coronary Arteries: Coronary calcifications are mild. Cardiovascular: Mild coronary artery calcification. Mild to moderate aortic valvular calcification. Mild fusiform aneurysm of the ascending thoracic aorta measuring 4.1 cm. Moderate atheromatous calcification thoracic and proximal abdominal aorta. Mild atheromatous calcification both subclavian arteries, splenic artery, superior mesenteric artery and left renal artery. Lungs: Paraseptal and centrilobular emphysema. Mild irregular biapical pleuroparenchymal scarring. There is mild peribronchial thickening consistent with acute and/or chronic bronchitis. There is a 0.8 x 1.4 x 1.7 cm masslike area of right middle lobe consolidation which may be secondary to atelectasis or infiltrate (series 2, image 113 and coronal image 23). Nodules: There is a 0.7 cm noncalcified perifissural nodule right minor fissure (series 2, image 96). There is a 0.3 cm noncalcified right lower lobe nodule (series 2, image 97). There is a 0.2 cm noncalcified perifissural nodule left major fissure (series 2, image 87). There is a 0.5 cm noncalcified left lower lobe nodule (series 2, image 123). There are a few small calcified granuloma within the right chest. Lymphadenopathy: There are no pathologically enlarged lymph nodes. Other: The trachea and thyroid gland are unremarkable. There is a small amount of debris within the esophageal lumen suggesting either esophageal dysmotility or gastroesophageal reflux. Upper Abdomen: There is a 1.4 cm hypodense lesion within the liver measuring -6 Hounsfield units which most commonly is a cyst or a hemangioma. There is fatty infiltration of the pancreas, most pronounced and severe within the pancreatic head. Musculoskeletal: The bony structures appear osteopenic. Postop changes left acromion. Moderate degenerative changes both glenohumeral articulations and right acromioclavicular articulation. There is slight scoliosis. Partially imaged spinal fixation hardware cervical spine. Mild discogenic degenerative changes at L1-2. IMPRESSION: Paraseptal and centrilobular emphysema and mild peribronchial thickening consistent with acute and/or chronic bronchitis. There is a 0.8 x 1.4 x 1.7 cm masslike area of right middle lobe consolidation which may be secondary to atelectasis or infiltrate (series 2, image 113 and coronal image 23). A CT examination of the chest in 1 month following appropriate medical treatment is recommended to confirm complete resolution. Noncalcified nodules within the chest ranging in size from 0.2 cm to 0.7 cm. There are no pathologically enlarged lymph nodes. Mild fusiform aneurysm of the ascending thoracic aorta measuring 4.1 cm. Atherosclerotic disease as described in the body of the report. Small amount of debris within the esophageal lumen suggesting either esophageal dysmotility or gastroesophageal reflux. There is a 1.4 cm hypodense lesion within the liver which most commonly is a cyst or a hemangioma. Fatty infiltration of the pancreas, most pronounced and severe within the pancreatic head. Lung rads score 2 S. ECHOCARDIOGRAM COMPLETE 09/16/2023 BMI: 25.55 kg/m2 Summary 1. Left ventricular chamber dimension is normal. 2. Left ventricular systolic function is normal with an ejection fraction by Biplane Method of Discs of 58 %. 3. The left ventricular diastolic function is normal. 4. The proximal ascending aorta is dilated measuring 4.0 cm with an index of 2.1 cm/m2. 5. No significant valvular disease identified Left Ventricle Left ventricular chamber dimension is normal. Left ventricular systolic function is normal with an ejection fraction by Biplane Method of Discs of 58 %. Normal left ventricular mass. Left ventricular segmental wall motion is normal. The left ventricular diastolic function is normal. Right Ventricle Right ventricular size and systolic function are normal. Left Atria Left atrial chamber is normal with a left atrial volume index of 20 ml/m2 by BP MOD. Right Atria Right atrial chamber dimension is normal. Aortic Valve The aortic valve is trileaflet. There is moderate aortic valve sclerosis. There is no aortic valve stenosis. There is no aortic valve regurgitation. Pulmonic Valve The pulmonic valve is normal. There is no pulmonic valve stenosis. There is trace pulmonic regurgitation. Mitral Valve The mitral valve has normal leaflets. There is no mitral valve stenosis. There is trace mitral valve regurgitation. Normal pulmonary vein flow. Tricuspid Valve The tricuspid valve leaflets are normal. There is no significant tricuspid valve stenosis. There is trace tricuspid valve regurgitation. There is no pulmonary hypertension, estimated right ventricle systolic pressure is 20 mmHg. Pericardium/Pleural There is no pericardial effusion. Inferior Vena Cava Normal inferior vena cava with >50% collapse upon inspiration consistent with normal right atrial pressure. Aorta The aortic measurements are indexed to age and body surface area. The aortic root is normal measuring 3.2 cm with an index of 1.6 cm/m2. The proximal ascending aorta is dilated measuring 4.0 cm with an index of 2.1 cm/m2. Assessment and Plan Met [id number] with patient At the time of my evaluation patient is neurologically intact not in acute distress no short of breath no signs of congestive failure chest pain oriented x3 able to understand explanation able to ask questions understand my answers Family member present at the time of my evaluation Patient is aware of his clinical condition for which being evaluated today I have reassured patient that this incidental findings will not interfere with his lifestyle and made them aware that even though the CT scan that elicited the finding of the dilatation of the ascending aorta is not the ideal testing for appropriate measurement in view of the small amount of dilatation we will make arrangements in 6 months from now to perform a baseline gated CT angio of the chest and thereafter established a surveillance approach with yearly or every 2-year testing including a 2D echo color Doppler A 2D echo was indeed performed on 09/16/2023 showing a trileaflet aortic valve with no evidence aortic valve insufficiency or stenosis Patient has been made aware that the management and control of the essential hypertension is of paramount importance and I will defer the follow-up and treatment of it as well as any other medical problems to PCP Patient states that he has been experiencing some midsternal lower chest discomfort radiating to the left side of his chest I have reassured him that this symptoms is not caused by the dilatation of the ascending aorta and he should discuss this with PCP Past Medical History: Diagnosis Date COPD (chronic obstructive pulmonary disease) (HCC) GERD (gastroesophageal reflux disease) Hyperlipemia Hypertension Lung nodule 2017 They only found 1 in [facility] Past Surgical History: Procedure Laterality Date APPENDECTOMY BLADDER SURGERY 2020 bladder ripped EPIDIDYMECTOMY HAND SURGERY Right boxer HERNIA REPAIR Bilateral inguinal NECK SURGERY plate PENILE PROSTHESIS IMPLANT 2022 PROSTATECTOMY right ankle ORIF ROTATOR CUFF REPAIR Bilateral 2015 SPINE SURGERY L4-L5 Current Outpatient Medications on File Prior to Visit Medication Sig Dispense Refill acetaminophen (TYLENOL) 500 MG tablet Take 2 (two) tablets (1,000 mg total) by mouth every 8 (eight) hours as needed for pain . albuterol 90 mcg/actuation inhaler Inhale 2 (two) puffs every 4 (four) hours as needed for wheezing, shortness of breath or cough . 12 g 5 amLODIPine (NORVASC) 5 MG tablet Take 1 (one) tablet (5 mg total) by mouth daily . 30 tablet 11 aspirin 81 MG EC tablet Take 1 (one) tablet (81 mg total) by mouth daily . atenoloL (TENORMIN) 25 MG tablet Take 1 (one) tablet (25 mg total) by mouth daily . atenoloL (TENORMIN) 50 MG tablet Take 1 (one) tablet (50 mg total) by mouth daily . atorvastatin (LIPITOR) 40 MG tablet Take 1 (one) tablet (40 mg total) by mouth every night at bedtime . cefadroxil (DURICEF) 500 MG capsule celecoxib (CELEBREX) 200 MG capsule cholecalciferol, vitamin D3, 50 mcg (2,000 unit) Tab Take 1 (one) tablet (2,000 Units total) by mouth daily . cyclobenzaprine (FLEXERIL) 10 MG tablet Take 1 (one) tablet (10 mg total) by mouth See Admin Instructions . docusate sodium (COLACE) 100 MG capsule Take 1 (one) capsule (100 mg total) by mouth 2 (two) times a day . hydroCHLOROthiazide (HYDRODIURIL) 25 MG tablet lisinopriL (PRINIVIL,ZESTRIL) 40 MG tablet Take 1 (one) tablet (40 mg total) by mouth daily . meloxicam (MOBIC) 15 MG tablet multivitamin with minerals cap Take 1 capsule by mouth daily . nicotine (Nicotrol) 10 mg inhaler omeprazole (PRILOSEC) 40 MG capsule Take 1 (one) capsule (40 mg total) by mouth 2 (two) times a day . pregabalin (LYRICA) 75 MG capsule Take by mouth 2 (two) times a day . sildenafiL (VIAGRA) 100 MG tablet simvastatin (ZOCOR) 10 MG tablet spironolactone (ALDACTONE) 25 MG tablet Take 1 (one) tablet (25 mg total) by mouth daily . 90 tablet 3 tamsulosin (FLOMAX) 0.4 mg capsule tiotropium-olodateroL (Stiolto Respimat) 2.5-2.5 mcg/actuation Mist respimat inhaler Inhale 2 (two) puffs daily . 12 g 2 tiZANidine (ZANAFLEX) 4 MG tablet Take 1 tablet every 8 hours by oral route for 30 days. No current facility-administered medications on file prior to visit. Allergies Allergen Reactions Prednisone Other (See Comments) Morphine Itching and Rash Family History Problem Relation Age of Onset Cancer Mother Lung COPD Father Social History Socioeconomic History Marital status: Tobacco Use Smoking status: Every Day Current packs/day: 1.00 Average packs/day: 1 pack/day for 60.5 years (60.5 ttl pk-yrs) Types: Cigarettes Start date: 1964 Smokeless tobacco: Never Tobacco comments: 2 PPD 09/24/2023 Vaping Use Vaping status: Never Used Substance and Sexual Activity Alcohol use: Not Currently Comment: 1-2/year 09/24/2023 Drug use: Never Comment: 09/24/2023 Social Determinants of Health Financial Resource Strain: Low Risk (03/17/2023) Received from [facility] Overall Financial Resource Strain (CARDIA) Difficulty of Paying Living Expenses: Not hard at all Food Insecurity: No Food Insecurity (03/17/2023) Received from [facility] Hunger Vital Sign Worried About Running Out of Food in the Last Year: Never true Ran Out of Food in the Last Year: Never true Transportation Needs: No Transportation Needs (03/17/2023) Received from [facility] PRAPARE - Transportation Lack of Transportation (Medical): No Lack of Transportation (Non-Medical): No Physical Activity: Insufficiently Active (03/17/2023) Received from [facility] Exercise Vital Sign Days of Exercise per Week: 1 day Minutes of Exercise per Session: 10 min Stress: No Stress Concern Present (03/17/2023) Received from [facility] [employer] [place] [employer] - Occupational Stress Questionnaire Feeling of Stress : Only a little Social Connections: Moderately Integrated (03/17/2023) Received from [facility] Social Connection and Isolation Panel [NHANES] Frequency of Communication with Friends and Family: Three times a week Attends Caodaism Services: 1 to 4 times per year Active Member of Clubs or Organizations: No Attends Club or Organization Meetings: Never Marital Status: Housing Stability: Low Risk (03/17/2023) Received from [facility] Housing Stability Vital Sign Unable to Pay for Housing in the Last Year: No Number of Places Lived in the Last Year: 1 In the last 12 months, was there a time when you did not have a steady place to sleep or slept in a fci (including now)?: No ROS see HPI for pertinent positive other systems reviewed and negative There were no vitals taken for this visit. Physical Exam Constitutional: General: He is not in acute distress. Appearance: Normal appearance. He is normal weight. He is not ill-appearing, toxic-appearing or diaphoretic. HENT: Head: Normocephalic and atraumatic. Right Ear: External ear normal. Left Ear: External ear normal. Nose: Nose normal. No congestion or rhinorrhea. Mouth/Throat: Mouth: Mucous membranes are moist. Pharynx: Oropharynx is clear. No oropharyngeal exudate or posterior oropharyngeal erythema. Eyes: General: No scleral icterus. Right eye: No discharge. Left eye: No discharge. Conjunctiva/sclera: Conjunctivae normal. Pupils: Pupils are equal, round, and reactive to light. Cardiovascular: Rate and Rhythm: Normal rate and regular rhythm. Heart sounds: Normal heart sounds. Pulmonary: Effort: Pulmonary effort is normal. Chest: Chest wall: No tenderness. Abdominal: General: Abdomen is flat. Palpations: Abdomen is soft. Musculoskeletal: General: No swelling, tenderness or deformity. Normal range of motion. Cervical back: Normal range of motion and neck supple. No rigidity or tenderness. Right lower leg: No edema. Left lower leg: No edema. Skin: General: Skin is warm. Coloration: Skin is not jaundiced or pale. Findings: No bruising, erythema or rash. Neurological: General: No focal deficit present. Mental Status: He is alert. Mental status is at baseline. Cranial Nerves: No cranial nerve deficit. Sensory: No sensory deficit. Motor: No weakness. Coordination: Coordination normal. Psychiatric: Mood and Affect: Mood normal. Behavior: Behavior normal. Thought Content: Thought content normal. Judgment: Judgment normal. No results found for: WBC, HGB, HCT, MCV, PLT, HGBA1C, GLUCOSE, CALCIUM, NA, K, CL, BUN, CREATININE, APTT, INR, PTT, LABPROT, ALBUMIN] Problem List Items Addressed This Visit None documented in this encounter [facility] 09-29-2023 Note Luis Angel Aguila [id number] @[email or web address]@ Frantz Manzo MD 09/29/23 Outpatient clinic Consultation Request was placed by PCP for incidental finding of slight dilatation of the ascending aorta in the process of a workup for a lung nodule Slight dilatation of the ascending aorta History of Present Illness 68 years old patient I was asked to see to render opinion in reference of incidental finding of slight dilatation of the ascending aorta in the process of the patient being worked up for lung issues Patient has never been made aware of any issues relating to his ascending aorta he has never reported any history of severe acute pain in between his shoulder blades Patient has history of essential hypertension CT CHEST LOW DOSE LUNG SCREENING - [facility] 08/21/2023 COMPARISON: None available at time of dictation. FINDINGS: Coronary Arteries: Coronary calcifications are mild. Cardiovascular: Mild coronary artery calcification. Mild to moderate aortic valvular calcification. Mild fusiform aneurysm of the ascending thoracic aorta measuring 4.1 cm. Moderate atheromatous calcification thoracic and proximal abdominal aorta. Mild atheromatous calcification both subclavian arteries, splenic artery, superior mesenteric artery and left renal artery. Lungs: Paraseptal and centrilobular emphysema. Mild irregular biapical pleuroparenchymal scarring. There is mild peribronchial thickening consistent with acute and/or chronic bronchitis. There is a 0.8 x 1.4 x 1.7 cm masslike area of right middle lobe consolidation which may be secondary to atelectasis or infiltrate (series 2, image 113 and coronal image 23). Nodules: There is a 0.7 cm noncalcified perifissural nodule right minor fissure (series 2, image 96). There is a 0.3 cm noncalcified right lower lobe nodule (series 2, image 97). There is a 0.2 cm noncalcified perifissural nodule left major fissure (series 2, image 87). There is a 0.5 cm noncalcified left lower lobe nodule (series 2, image 123). There are a few small calcified granuloma within the right chest. Lymphadenopathy: There are no pathologically enlarged lymph nodes. Other: The trachea and thyroid gland are unremarkable. There is a small amount of debris within the esophageal lumen suggesting either esophageal dysmotility or gastroesophageal reflux. Upper Abdomen: There is a 1.4 cm hypodense lesion within the liver measuring -6 Hounsfield units which most commonly is a cyst or a hemangioma. There is fatty infiltration of the pancreas, most pronounced and severe within the pancreatic head. Musculoskeletal: The bony structures appear osteopenic. Postop changes left acromion. Moderate degenerative changes both glenohumeral articulations and right acromioclavicular articulation. There is slight scoliosis. Partially imaged spinal fixation hardware cervical spine. Mild discogenic degenerative changes at L1-2. IMPRESSION: Paraseptal and centrilobular emphysema and mild peribronchial thickening consistent with acute and/or chronic bronchitis. There is a 0.8 x 1.4 x 1.7 cm masslike area of right middle lobe consolidation which may be secondary to atelectasis or infiltrate (series 2, image 113 and coronal image 23). A CT examination of the chest in 1 month following appropriate medical treatment is recommended to confirm complete resolution. Noncalcified nodules within the chest ranging in size from 0.2 cm to 0.7 cm. There are no pathologically enlarged lymph nodes. Mild fusiform aneurysm of the ascending thoracic aorta measuring 4.1 cm. Atherosclerotic disease as described in the body of the report. Small amount of debris within the esophageal lumen suggesting either esophageal dysmotility or gastroesophageal reflux. There is a 1.4 cm hypodense lesion within the liver which most commonly is a cyst or a hemangioma. Fatty infiltration of the pancreas, most pronounced and severe within the pancreatic head. Lung rads score 2 S. ECHOCARDIOGRAM COMPLETE 09/16/2023 BMI: 25.55 kg/m2 Summary 1. Left ventricular chamber dimension is normal. 2. Left ventricular systolic function is normal with an ejection fraction by Biplane Method of Discs of 58 %. 3. The left ventricular diastolic function is normal. 4. The proximal ascending aorta is dilated measuring 4.0 cm with an index of 2.1 cm/m2. 5. No significant valvular disease identified Left Ventricle Left ventricular chamber dimension is normal. Left ventricular systolic function is normal with an ejection fraction by Biplane Method of Discs of 58 %. Normal left ventricular mass. Left ventricular segmental wall motion is normal. The left ventricular diastolic function is normal. Right Ventricle Right ventricular size and systolic function are normal. Left Atria Left atrial chamber is normal with a left atrial volume index of 20 ml/m2 by BP MOD. Right Atria Right atrial chamber dimension is normal. Aortic Valve The aort (more content not included)... [facility] 09-25-2023 Note Patient has not yet been seen, referred by Dr. Yon Quinteros with pulmonology for enlarging lung nodule, needs sampling with robotic bronchoscopy. Will plan to see in clinic, but will need chest CT without contrast with thin robotic series first for procedure planning. CT chest ordered Note to insurance if needed - Patient is referred for robotic bronchoscopy and sampling of the enlarging lung nodule. To be able to conduct the procedure, a chest CT without contrast with special thin slices are needed. Otherwise the procedure is not possible. The patient's last chest CT from 08/26/23 will not work for that purpose. Nguyen Huynh APRN, JARED-KARLEE, AGAALEJANDRINAP-BC Interventional Pulmonology AUTHENTICATED BY ROSALINDA HUYNH, ON 09/25/2023 09:04:59 [facility] 09-25-2023 History of Present illness Narrative Patient has not yet been seen, referred by Dr. Yon Quinteros with pulmonology for enlarging lung nodule, needs sampling with robotic bronchoscopy. Will plan to see in clinic, but will need chest CT without contrast with thin robotic series first for procedure planning. CT chest ordered Note to insurance if needed - Patient is referred for robotic bronchoscopy and sampling of the enlarging lung nodule. To be able to conduct the procedure, a chest CT without contrast with special thin slices are needed. Otherwise the procedure is not possible. The patient's last chest CT from 08/26/23 will not work for that purpose. Nguyen Huynh APRN, JARED-KARLEE, SANGITA-KARLEE Interventional Pulmonology documented in this encounter [facility] 09-24-2023 Note CONSULT NOTE Patient Name: Luis Angel Aguila Admit Date: MR #: [id number] : 1955 Physicians: Gildardo Foster CNP (Family); Gildardo Foster* (Referring) Chief Complaint/Reason for Visit: lung nodule and hemoptysis. History of Present Illness: Luis Angel Aguila is a 68 y.o. y/o male presenting from home with above reason. Mr. Aguila, 68, past medical history significant for active and prolonged smoking, history of HAPE, history of lung nodule as well as prolonged smoking and stage IV prostatic cancer, was seen today regarding lung nodule as well as hemoptysis. Antibiotic was given but was not helpful, he claims. Otherwise, some blood streaked phlegm is still present. Denies fever, chills. Smokes half a pack of cigarettes a day. He is from [place], residing outside [place] for the last 7 years but has seen significant hemoptysis in the past in [place], required bronchoscopy and epinephrine use. Now he is here with the lung nodule as well as with the hemoptysis. Denies fever, chills. Otherwise was on Stiolto and albuterol for COPD. He was asked to follow up with a multiple drum sander in the past but did not see one. Otherwise, had a prostatectomy for prostatic cancer. He follows up at [facility] regarding prostatic cancer. CURRENT MEDICATIONS Reviewed. PERTINENT FINDINGS Lungs: Decreased air entry bilaterally, but clear to auscultate. Cardiac: S1, S2. Regular rate. Extremities: No swelling. Skin: No rash. CAT scan findings discussed, show emphysema as well as the lung nodule in the middle lobe measuring 1 cm. Impression 1. Hemoptysis 2. Lung nodule 3. COPD 4. Active smoker 5. Stage IV prostatic cancer Plan 1. Bronchoscopy 2. Received antibiotics 3. PET scan 4. Stiolto and albuterol 5. Return to clinic in 4 weeks 6. Smoking cessation discussed. Thank you Kristin for allowing me to participate in care of Mr. Aguila. History: Past Medical History: Diagnosis Date COPD (chronic obstructive pulmonary disease) (HCC) GERD (gastroesophageal reflux disease) Hyperlipemia Hypertension Lung nodule 2016 They only found 1 in [facility] Past Surgical History: Procedure Laterality Date APPENDECTOMY BLADDER SURGERY 2020 bladder ripped EPIDIDYMECTOMY HAND SURGERY Right boxer HERNIA REPAIR Bilateral inguinal NECK SURGERY plate PENILE PROSTHESIS IMPLANT 2022 PROSTATECTOMY right ankle ORIF ROTATOR CUFF REPAIR Bilateral 2015 SPINE SURGERY L4-L5 Family History Problem Relation Age of Onset Cancer Mother Lung COPD Father Social History Socioeconomic History Marital status: Tobacco Use Smoking status: Every Day Packs/day: 1.00 Years: 50.00 Additional pack years: 0.00 Total pack years: 50.00 Types: Cigarettes Start date: 1963 Smokeless tobacco: Never Tobacco comments: 12 PPD 09/24/2023 Vaping Use Vaping Use: Never used Substance and Sexual Activity Alcohol use: Not Currently Comment: 1-2/year 09/24/2023 Drug use: Never Comment: 09/24/2023 Allergy Information: I have reviewed the patient's allergies. Prednisone and Morphine Home Medications: Outpatient Medications as of 09/24/2023 Medication Sig acetaminophen (TYLENOL) 500 MG tablet Take 2 (two) tablets (1,000 mg total) by mouth every 8 (eight) hours as needed for pain . amLODIPine (NORVASC) 5 MG tablet Take 1 (one) tablet (5 mg total) by mouth daily . aspirin 81 MG EC tablet Take 1 (one) tablet (81 mg total) by mouth daily . atenoloL (TENORMIN) 25 MG tablet Take 1 (one) tablet (25 mg total) by mouth daily . atenoloL (TENORMIN) 50 MG tablet Take 1 (one) tablet (50 mg total) by mouth daily . atorvastatin (LIPITOR) 40 MG tablet Take 1 (one) tablet (40 mg total) by mouth every night at bedtime . cholecalciferol, vitamin D3, 50 mcg (2,000 unit) Tab Take 1 (one) tablet (2,000 Units total) by mouth daily . cyclobenzaprine (FLEXERIL) 10 MG tablet Take 1 (one) tablet (10 mg total) by mouth See Admin Instructions . docusate sodium (COLACE) 100 MG capsule Take 1 (one) capsule (100 mg total) by mouth 2 (two) times a day . hydroCHLOROthiazide (HYDRODIURIL) 25 MG tablet lisinopriL (PRINIVIL,ZESTRIL) 40 MG tablet Take 1 (one) tablet (40 mg total) by mouth daily . multivitamin with minerals cap Take 1 capsule by mouth daily . omeprazole (PRILOSEC) 40 MG capsule Take 1 (one) capsule (40 mg total) by mouth 2 (two) times a day . pregabalin (LYRICA) 75 MG capsule Take by mouth 2 (two) times a day . simvastatin (ZOCOR) 10 MG tablet spironolactone (ALDACTONE) 25 MG tablet Take 1 (one) tablet (25 mg total) by mouth daily . tamsulosin (FLOMAX) 0.4 mg capsule albuterol 90 mcg/actuation inhaler Inhale 2 (two) puffs every 4 (four) hours as needed for wheezing, shortness of breath or cough . tiotropium-olodateroL (Stiolto Respimat) 2.5-2.5 mcg/actuation Mist respimat inhaler Inhale 2 (two) puffs lalit (more content not included)... [facility] 09-15-2023 History of Present illness Narrative Oncologic problem(s): 1) Castrate sensitive prostate cancer. HPI: The patient is a 68-year-old male with past medical history significant for hyperlipidemia, hypertension, moderate COPD, GERD, previous cervical spine surgery, chronic low back pain and prostate cancer. Developed gross hematuria. PSA 50s. RP with penile implant. Bladder tear about a month later. PET--recurrence in prostate bed. 06/2021 4 weeks RT in [place] with GnRH agonist treatment (Lupron). Stopped due to side effects--Severe diarrhea and n/v. PSA undetectable 06/2022. Presumably from Lupron. CT A/P 11/18/2022: IMPRESSION: 1. Postoperative ileus versus changes of early small bowel obstruction within the right pelvis as discussed above. Short-term follow-up suggested. 2. Changes of recent prostatectomy and penile implant. There is a 6.0 x 2.7 x 9.5 cm nonencapsulated postoperative fluid collection within the right lower quadrant subcutaneous fat adjacent to the penile pump. 3. Mild free fluid. 4. Sacral insufficiency fractures. Medically managed for SBO. Presents for ongoing oncologic management. Interim history: ADT--I lose my strength. Hot flashes not as bad since end of 3 months. No symptoms of LUTS. No change in chronic LBP. Recent CT chest findings noted. Was given a course of antibiotics. Has follow-up chest x-ray today. Was referred to multiple drum sander. Been having left-sided squeezing chest pain. Saw his at risk paraprofessional. Echocardiogram ordered. 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) S/P prostatectomy Tobacco use disorder PAST SURGICAL HISTORY Procedure Laterality Date ABDOMINAL SURGERY HX APPENDECTOMY COLONOSCOPY 12/12/2022 repeat 5 years FOOT RIGHT OP SURGERY Right FRACTURE SURGERY REMOVAL OF PROSTATE REPAIR ABDOMINAL HERNIA SHOULDER SURGERY HX Bilateral XR CERVICAL FUSION OR ALLERGIES Allergen Reactions Morphine Rash, Itching Prednisone Mental Status Change Current Outpatient Medications Medication Sig atenolol (TENORMIN) 25 mg tablet Take one tablet daily along with 50 mg to equal 75 mg daily atenolol (TENORMIN) 50 mg tablet Take one tablet daily along with 25 mg tablet to equal 75 mg daily cyclobenzaprine (FLEXERIL) 10 mg tablet Take 1 tablet by mouth as directed. 1/2 to 1 tablet po qhs as needed for spasm acetaminophen (TYLENOL EXTRA STRENGTH) 500 mg tablet Take 1,000 mg by mouth every 8 hours as needed. atorvastatin (LIPITOR) 40 mg tablet Take 1 tablet by mouth daily at bedtime. For cholesterol. lisinopril (ZESTRIL) 40 mg tablet Take 1 tablet by mouth once daily. pregabalin (LYRICA) 75 mg capsule Take one pill twice daily omeprazole (PRILOSEC) 40 mg capsule Take 1 capsule by mouth two times a day. tiotropium-olodaterol (STIOLTO RESPIMAT) 2.5-2.5 mcg/actuation Inhale 2 Puffs as instructed once daily. albuterol HFA (VENTOLIN HFA) 90 mcg/actuation inhaler Inhale 2 Puffs as instructed every 4 hours as needed for wheezing/shortness of breath. aspirin, enteric coated (ASPIRIN, ENTERIC COATED) 81 mg EC tablet Take 81 mg by mouth once daily. docusate sodium (STOOL SOFTENER) 100 mg capsule Take 100 mg by mouth twice daily. cholecalciferol (VITAMIN D-3) 50 mcg (2,000 unit) tablet Take 2,000 Units by mouth once daily. beta-carotene,A,-vits C,E/mins (OCUVITE ORAL) Take 1 tablet by mouth once daily. calcium carbonate (CALCIUM 600 ORAL) Take 1 tablet by mouth once daily. Multivitamin capsule Take 1 capsule by mouth once daily. meloxicam (MOBIC) 15 mg tablet Take 1 tablet by mouth once daily. With food. (Patient not taking: Reported on 09/15/2023) No current facility-administered medications for this visit. Social History Tobacco Use Smoking status: Every Day Packs/day: 1.00 Years: 55.00 Additional pack years: 0.00 Total pack years: 55.00 Types: Cigarettes Smokeless tobacco: Never Tobacco comments: Pt has cut back to 1/2 pack daily. Vaping Use Vaping Use: Never used Substance Use Topics Alcohol use: Yes Comment: occasionaly Drug use: Never Family History Problem Relation Age of Onset Lung Cancer Mother Dementia Father other (ETOH) Father Hypertension Brother Aneurysm Maternal Grandmother other (car accident) Maternal Grandfather other (car accident) Paternal Grandfather ROS: Constitutional: No fever. No drenching night sweats. Normal appetite. No unexplained weight loss. No significant fatigue. Neuro: No recent CORTEZ, vertigo, dizziness or imbalance. HEENT: No recent change in voice, vision or hearing. Resp: No cough, wheeze of hemoptysis. No shortness of breath at rest. ANDERSON--can't climb full set of stairs. CVS: No exertional chest pain, PND or orthopnea. No extremity swelling/edema. No symptoms of claudication. No painful or tender varicose veins. GI: No dysgeusia. No symptoms of stomatitis. No dysphagia or odynophagia. No reflux, n/v, change in bowel habits. No abdominal pain, bloating or distension. No black or bloody stools. : See HPI. Endo: No hot flashes. No polyuria or polydipsia. No heat or cold intolerance. Musculoskeletal: Chronic LBP. Derm: No current rash. No history of jaundice. No diffuse pruritis. Heme: No unusual bleeding and unexplained bruising. Psych: Normal mood. PHYSICAL EXAM: Vitals: Blood pressure 124/80, pulse 63, temperature 36.4 C (97.5 F), weight 78 kg (172 lb), SpO2 99%. Well-appearing and in no acute distress. EYES: Sclerae are anicteric bilaterally. LYMPHATIC: There is no palpable cervical, supraclavicula adenopathy. RESPIRATORY: Inspiratory breath sounds are of normal intensity in all arana. No rales, wheezes or rhonchi. CARDIOVASCULAR: Rhythm is regular. ABDOMEN: The abdomen is nondistended. Extremities: No swelling or edema. SKIN: No jaundice. MUSCULOSKELETAL: No muscle wasting. 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 Diagnosed with prostate cancer after developing gross hematuria. Underwent RP in [place]. Shortly thereafter he was started on ADT and radiation. Was not able to complete therapy secondary to severe diarrhea, nausea and vomiting. Had been receiving intermittent ADT since. He gets significant hot flashes and mood swings with ADT. -PSA undetectable 09/2022. 0.23 ng/mL 12/13/2022. -Reviewed Dr. Rahman's recommendations with him: Continue to monitor PSA every 3 months. Once PSADT <6 months, start intermittent Lupron. Once he develops mCRPC, Provenge vs. Pluvicto would be indicated at that time, pending data from PSMAfore trial, which will be presented at the [employer] in 01/2023. -PSA doubling time was 2.9 months--restarted Lupron 03/14/2023. -Again educated him on the importance of addressing modifiable cardiovascular risk factors particularly since he will be undergoing intermittent testosterone suppression. He does not appear to be psychologically motivated to quit smoking at this time although he has cut back. -Again discussed the strategy of intermittent ADT. Will continue till PSA undetectable then consider taking a break. -Testosterone low so will hold Lupron for now. Plan: -Hold Lupron for now. -PSA then OV in 3-4 months. -Follow up with PCP and pulmonology regarding RML consolidation. Portions of this documentation were copied and pasted from previous office visit notes in order to provide a cohesive continuity of the history. The note has been reviewed and edited and updated as necessary. I spent a total of 15 minutes on the date of the service which included preparing to see the patient, [id number] patient care, completing clinical documentation, obtaining and/or reviewing separately obtained history, performing a medically appropriate examination, counseling and educating the patient/family/caregiver, ordering medications, tests, or procedures, communicating with other HCPs (not separately reported), and communicating results to the patient/family/caregiver. Monica Jung DO documented in this encounter [facility] 08-28-2023 Evaluation + Plan note Associated Problem(s): Aortic aneurysm (HCC) Chronic, control? 4.1cm [facility] 08-28-2023 Miscellaneous Notes Associated Problem(s): Aortic aneurysm (HCC) Chronic, control? 4.1cm documented in this encounter [facility] 08-28-2023 Note OFFICE VISIT PROGRBLANKA S NOTE HPI patient here to discuss CT scan result Lung nodule-oncologist requested patient to have biopsy-will refer to pulm Aortic aneurysm-not seen before Denies chest pain, SOB no change in cough. The following portions of the patient's history were reviewed and updated as appropriate: allergies, current medications and problem list. The patient's surgical, family, and social history was reviewed and updated as appropriate. Review of Systems Review of Systems Constitutional: Negative for chills and fever. Respiratory: Negative for cough and shortness of breath. Cardiovascular: Negative. Neurological: Negative. Psychiatric/Behavioral: Negative. Vitals: 08/28/23 1606 BP: 126/81 Pulse: 67 Temp: 98.3 degrees F (36.8 degrees C) TempSrc: Temporal SpO2: 94% Weight: 78.7 kg (173 lb 8 oz) Height: 5' 9.5 Body mass index is 25.25 kg/m . Physical Exam Physical Exam Constitutional: General: He is not in acute distress. Appearance: Normal appearance. He is normal weight. He is not ill-appearing or toxic-appearing. Neck: Vascular: No carotid bruit. Cardiovascular: Rate and Rhythm: Normal rate and regular rhythm. Pulses: Normal pulses. Heart sounds: Normal heart sounds. Pulmonary: Effort: Pulmonary effort is normal. Breath sounds: Normal breath sounds. Musculoskeletal: Cervical back: Neck supple. Right lower leg: No edema. Left lower leg: No edema. Skin: General: Skin is warm. Neurological: Mental Status: He is alert and oriented to person, place, and time. Psychiatric: Mood and Affect: Mood normal. Behavior: Behavior normal. Thought Content: Thought content normal. Judgment: Judgment normal. OARRS/NARxCHECK Report Received and Assessed: Date controlled substance agreement signed: No data found Date of last drug screen: Assessment/Plan Problem List Items Addressed This Visit Aortic aneurysm (HCC) Chronic, control? 4.1cm Relevant Orders Ambulatory referral to Cardiology Other Visit Diagnoses Lung nodule - Primary Relevant Orders Ambulatory referral to Pulmonology Return if symptoms worsen or fail to improve, for Next scheduled follow up. If any referrals were placed at today's visit the patient was instructed to call the office if they havn't heard anything about the referral within 2 weeks of today's visit. For any new medications prescribed today, patient was educated about indications for the medication, how to take the medication and potential side effects of the medications. Gildardo Foster TOOL GRINDER SET UP OPERATOR GEAR AUTHENTICATED BY GILDARDO FOSTER, ON 08/28/2023 16:33:20 [facility] 08-28-2023 History of Present illness Narrative OFFICE VISIT PROGRESS NOTE HPI patient here to discuss CT scan result Lung nodule-oncologist requested patient to have biopsy-will refer to pulm Aortic aneurysm-not seen before Denies chest pain, SOB no change in cough. The following portions of the patient's history were reviewed and updated as appropriate: allergies, current medications and problem list. The patient's surgical, family, and social history was reviewed and updated as appropriate. Review of Systems Review of Systems Constitutional: Negative for chills and fever. Respiratory: Negative for cough and shortness of breath. Cardiovascular: Negative. Neurological: Negative. Psychiatric/Behavioral: Negative. Vitals: 08/28/23 1606 BP: 126/81 Pulse: 67 Temp: 98.3 F (36.8 C) TempSrc: Temporal SpO2: 94% Weight: 78.7 kg (173 lb 8 oz) Height: 5' 9.5 Body mass index is 25.25 kg/m . Physical Exam Physical Exam Constitutional: General: He is not in acute distress. Appearance: Normal appearance. He is normal weight. He is not ill-appearing or toxic-appearing. Neck: Vascular: No carotid bruit. Cardiovascular: Rate and Rhythm: Normal rate and regular rhythm. Pulses: Normal pulses. Heart sounds: Normal heart sounds. Pulmonary: Effort: Pulmonary effort is normal. Breath sounds: Normal breath sounds. Musculoskeletal: Cervical back: Neck supple. Right lower leg: No edema. Left lower leg: No edema. Skin: General: Skin is warm. Neurological: Mental Status: He is alert and oriented to person, place, and time. Psychiatric: Mood and Affect: Mood normal. Behavior: Behavior normal. Thought Content: Thought content normal. Judgment: Judgment normal. OARRS/NARxCHECK Report Received and Assessed: Date controlled substance agreement signed: No data found Date of last drug screen: Assessment/Plan Problem List Items Addressed This Visit Aortic aneurysm (HCC) Chronic, control? 4.1cm Relevant Orders Ambulatory referral to Cardiology Other Visit Diagnoses Lung nodule - Primary Relevant Orders Ambulatory referral to Pulmonology Return if symptoms worsen or fail to improve, for Next scheduled follow up. If any referrals were placed at today's visit the patient was instructed to call the office if they havn't heard anything about the referral within 2 weeks of today's visit. For any new medications prescribed today, patient was educated about indications for the medication, how to take the medication and potential side effects of the medications. Gildardo Foster CNP documented in this encounter [facility] 08-27-2023 Telephone encounter Note Patient's aware of all information. Tg Womack LPN [facility] 08-27-2023 Miscellaneous Notes Patient's aware of all information. Tg Womack LPN We are managing his prostate cancer. He is on Lupron and PSA has been declining very nicely. He is a smoker. Therefore recommend his PCP evaluate him for symptoms and possible pneumonia (if hasn't already) and set him up to see pulmonary ZEINAB. Monica Jung DO Patient's sent a message to the office asking Dr. Jung to review CT lung cancer screening ordered by patient's new PCP: Chest -- Computed Tomography Impression Paraseptal and centrilobular emphysema and mild peribronchial thickening consistent with acute and/or chronic bronchitis. There is a 0.8 x 1.4 x 1.7 cm masslike area of right middle lobe consolidation which may be secondary to atelectasis or infiltrate (series 2, image 113 and coronal image 23). A CT examination of the chest in 1 month following appropriate medical treatment is recommended to confirm complete resolution. Noncalcified nodules within the chest ranging in size from 0.2 cm to 0.7 cm. There are no pathologically enlarged lymph nodes. Mild fusiform aneurysm of the ascending thoracic aorta measuring 4.1 cm. Atherosclerotic disease as described in the body of the report. Small amount of debris within the esophageal lumen suggesting either esophageal dysmotility or gastroesophageal reflux. There is a 1.4 cm hypodense lesion within the liver which most commonly is a cyst or a hemangioma. Fatty infiltration of the pancreas, most pronounced and severe within the pancreatic head. Lung rads score 2 S. Patient has follow up with Dr. Jung 09/15/2023 (prostate cancer). He is concerned about these results and new PCP ([facility]) advised he contact this office. Tg Womack LPN documented in this encounter [facility] 08-27-2023 Telephone encounter Note We are managing his prostate cancer. He is on Lupron and PSA has been declining very nicely. He is a smoker. Therefore recommend his PCP evaluate him for symptoms and possible pneumonia (if hasn't already) and set him up to see pulmonary ZEINAB. Monica Jung DO [facility] Work Phone: 08-27-2023 Telephone encounter Note Patient's sent a message to the office asking Dr. Jung to review CT lung cancer screening ordered by patient's new PCP: Chest -- Computed Tomography Impression Paraseptal and centrilobular emphysema and mild peribronchial thickening consistent with acute and/or chronic bronchitis. There is a 0.8 x 1.4 x 1.7 cm masslike area of right middle lobe consolidation which may be secondary to atelectasis or infiltrate (series 2, image 113 and coronal image 23). A CT examination of the chest in 1 month following appropriate medical treatment is recommended to confirm complete resolution. Noncalcified nodules within the chest ranging in size from 0.2 cm to 0.7 cm. There are no pathologically enlarged lymph nodes. Mild fusiform aneurysm of the ascending thoracic aorta measuring 4.1 cm. Atherosclerotic disease as described in the body of the report. Small amount of debris within the esophageal lumen suggesting either esophageal dysmotility or gastroesophageal reflux. There is a 1.4 cm hypodense lesion within the liver which most commonly is a cyst or a hemangioma. Fatty infiltration of the pancreas, most pronounced and severe within the pancreatic head. Lung rads score 2 S. Patient has follow up with Dr. Jung 09/15/2023 (prostate cancer). He is concerned about these results and new PCP ([facility]) advised he contact this office. Tg Womack LPN [facility] 08-12-2023 Telephone encounter Note Pt spouse requesting medication refill. [facility] 08-12-2023 Miscellaneous Notes Pt spouse requesting medication refill. documented in this encounter [facility] 08-12-2023 Note Addended by: GIULIANA YEUNG on: 08/12/2023 09:31 AM Modules accepted: Orders [facility] 08-12-2023 Note Addended by: GIULIANA YEUNG on: 08/12/2023 09:31 AM Modules accepted: Orders [facility] 08-12-2023 Miscellaneous Notes Addended by: GIULIANA FOSTER on: 08/12/2023 09:31 AM Modules accepted: Orders Associated Problem(s): Chronic back pain Chronic, control? Follow up pain management Associated Problem(s): Nicotine use disorder Chronic, uncontrolled Stop smoking Associated Problem(s): Mixed hyperlipidemia Chronic, controlled Associated Problem(s): Essential hypertension Chronic, uncontrolled Add norvasc 5mg daily Associated Problem(s): COPD (chronic obstructive pulmonary disease) (HCC) Chronic, uncontrolled Take stilito daily Associated Problem(s): GERD (gastroesophageal reflux disease) Chronic, controlled Continue omeprazole x 6 months for GI bleed documented in this encounter [facility] 08-12-2023 Evaluation + Plan note Associated Problem(s): Chronic back pain Chronic, control? Follow up pain management [facility] 08-12-2023 Evaluation + Plan note Associated Problem(s): Nicotine use disorder Chronic, uncontrolled Stop smoking [facility] 08-12-2023 Evaluation + Plan note Associated Problem(s): Mixed hyperlipidemia Chronic, controlled [facility] 08-12-2023 Evaluation + Plan note Associated Problem(s): Essential hypertension Chronic, uncontrolled Add norvasc 5mg daily T [facility] 08-12-2023 Evaluation + Plan note Associated Problem(s): COPD (chronic obstructive pulmonary disease) ([facility]) Chronic, uncontrolled Take stilito daily T [facility] 08-12-2023 Evaluation + Plan note Associated Problem(s): GERD (gastroesophageal reflux disease) Chronic, controlled Continue omeprazole x 6 months for GI bleed T [facility] 08-12-2023 Note OFFICE VISIT RANGEL Lucero NOTE HPI patient here to get established Hypertension home blood pressure 180-200/90-100-no added salt Prostate cancer-[facility] COPD-not taking Stilito daily-using albuterol QOD Pain management-back injections The following portions of the patient's history were reviewed and updated as appropriate: allergies, current medications and problem list. The patient's surgical, family, and social history was reviewed and updated as appropriate. Review of Systems Review of Systems Constitutional: Negative. Respiratory: Positive for shortness of breath. No changes Cardiovascular: Negative. Gastrointestinal: Positive for constipation. Negative for nausea and vomiting. Genitourinary: Negative. Neurological: Negative. Psychiatric/Behavioral: Negative. Vitals: 08/12/23 0835 08/12/23 0920 BP: (!) 202/106 (!) 187/99 Pulse: (!) 59 Temp: 98.4 degrees F (36.9 degrees C) TempSrc: Temporal SpO2: 94% Weight: 78.7 kg (173 lb 8 oz) Height: 5' 9.5 Body mass index is 25.25 kg/m . Physical Exam Physical Exam Constitutional: General: He is not in acute distress. Appearance: Normal appearance. He is normal weight. He is not ill-appearing or toxic-appearing. Neck: Vascular: No carotid bruit. Cardiovascular: Rate and Rhythm: Normal rate and regular rhythm. Pulses: Normal pulses. Heart sounds: Normal heart sounds. Pulmonary: Effort: Pulmonary effort is normal. Breath sounds: Rhonchi present. Comments: Clears with cough Abdominal: General: Abdomen is flat. Bowel sounds are normal. Palpations: Abdomen is soft. Musculoskeletal: Cervical back: Neck supple. Right lower leg: No edema. Left lower leg: No edema. Skin: General: Skin is warm. Neurological: Mental Status: He is alert and oriented to person, place, and time. Psychiatric: Mood and Affect: Mood normal. Behavior: Behavior normal. Thought Content: Thought content normal. Judgment: Judgment normal. OARRS/NARxCHECK Report Received and Assessed: Date controlled substance agreement signed: No data found Date of last drug screen: Assessment/Plan Problem List Items Addressed This Visit COPD (chronic obstructive pulmonary disease) (HCC) Chronic, uncontrolled Take stilito daily Relevant Medications albuterol 90 mcg/actuation inhaler tiotropium-olodateroL (Stiolto Respimat) 2.5-2.5 mcg/actuation Mist respimat inhaler Essential hypertension Chronic, uncontrolled Add norvasc 5mg daily Relevant Medications atenoloL (TENORMIN) 25 MG tablet atenoloL (TENORMIN) 50 MG tablet lisinopriL (PRINIVIL,ZESTRIL) 40 MG tablet spironolactone (ALDACTONE) 25 MG tablet amLODIPine (NORVASC) 5 MG tablet GERD (gastroesophageal reflux disease) Chronic, controlled Continue omeprazole x 6 months for GI bleed Mixed hyperlipidemia Chronic, controlled Relevant Medications atorvastatin (LIPITOR) 40 MG tablet Nicotine use disorder Chronic, uncontrolled Stop smoking Relevant Orders CT Lung Cancer Screening Chronic back pain - Primary Chronic, control? Follow up pain management I am managing Luis Angel Aguila for complex chronic condition(s) serving as the focal point for the patient's care for consistency and continuity over time. Return in about 4 weeks (around 09/09/2023) for Recheck HTN. If any referrals were placed at today's visit the patient was instructed to call the office if they havn't heard anything about the referral within 2 weeks of today's visit. For any new medications prescribed today, patient was educated about indications for the medication, how to take the medication and potential side effects of the medications. Gildardo Foster CNP 08/12/2023 8:48 AM Depression Screening Little interest or pleasure in doing things 0 Feeling down, depressed, or hopeless 0 PHQ-2 Total Score 0 AUTHENTICATED BY GILDARDO FOSTER, ON 08/12/2023 09:24:49 [facility] 08-12-2023 History of Present illness Narrative OFFICE VISIT PROGRESS NOTE HPI patient here to get established Hypertension home blood pressure 180-200/90-100-no added salt Prostate cancer-[facility] COPD-not taking Stilito daily-using albuterol QOD Pain management-back injections The following portions of the patient's history were reviewed and updated as appropriate: allergies, current medications and problem list. The patient's surgical, family, and social history was reviewed and updated as appropriate. Review of Systems Review of Systems Constitutional: Negative. Respiratory: Positive for shortness of breath. No changes Cardiovascular: Negative. Gastrointestinal: Positive for constipation. Negative for nausea and vomiting. Genitourinary: Negative. Neurological: Negative. Psychiatric/Behavioral: Negative. Vitals: 08/12/23 0835 08/12/23 0920 BP: (!) 202/106 (!) 187/99 Pulse: (!) 59 Temp: 98.4 F (36.9 C) TempSrc: Temporal SpO2: 94% Weight: 78.7 kg (173 lb 8 oz) Height: 5' 9.5 Body mass index is 25.25 kg/m . Physical Exam Physical Exam Constitutional: General: He is not in acute distress. Appearance: Normal appearance. He is normal weight. He is not ill-appearing or toxic-appearing. Neck: Vascular: No carotid bruit. Cardiovascular: Rate and Rhythm: Normal rate and regular rhythm. Pulses: Normal pulses. Heart sounds: Normal heart sounds. Pulmonary: Effort: Pulmonary effort is normal. Breath sounds: Rhonchi present. Comments: Clears with cough Abdominal: General: Abdomen is flat. Bowel sounds are normal. Palpations: Abdomen is soft. Musculoskeletal: Cervical back: Neck supple. Right lower leg: No edema. Left lower leg: No edema. Skin: General: Skin is warm. Neurological: Mental Status: He is alert and oriented to person, place, and time. Psychiatric: Mood and Affect: Mood normal. Behavior: Behavior normal. Thought Content: Thought content normal. Judgment: Judgment normal. OARRS/NARxCHECK Report Received and Assessed: Date controlled substance agreement signed: No data found Date of last drug screen: Assessment/Plan Problem List Items Addressed This Visit COPD (chronic obstructive pulmonary disease) (HCC) Chronic, uncontrolled Take stilito daily Relevant Medications albuterol 90 mcg/actuation inhaler tiotropium-olodateroL (Stiolto Respimat) 2.5-2.5 mcg/actuation Mist respimat inhaler Essential hypertension Chronic, uncontrolled Add norvasc 5mg daily Relevant Medications atenoloL (TENORMIN) 25 MG tablet atenoloL (TENORMIN) 50 MG tablet lisinopriL (PRINIVIL,ZESTRIL) 40 MG tablet spironolactone (ALDACTONE) 25 MG tablet amLODIPine (NORVASC) 5 MG tablet GERD (gastroesophageal reflux disease) Chronic, controlled Continue omeprazole x 6 months for GI bleed Mixed hyperlipidemia Chronic, controlled Relevant Medications atorvastatin (LIPITOR) 40 MG tablet Nicotine use disorder Chronic, uncontrolled Stop smoking Relevant Orders CT Lung Cancer Screening Chronic back pain - Primary Chronic, control? Follow up pain management I am managing Luis Angel Aguila for complex chronic condition(s) serving as the focal point for the patient's care for consistency and continuity over time. Return in about 4 weeks (around 09/09/2023) for Recheck HTN. If any referrals were placed at today's visit the patient was instructed to call the office if they havn't heard anything about the referral within 2 weeks of today's visit. For any new medications prescribed today, patient was educated about indications for the medication, how to take the medication and potential side effects of the medications. Gildardo Foster CNP 08/12/2023 8:48 AM Depression Screening Little interest or pleasure in doing things 0 Feeling down, depressed, or hopeless 0 PHQ-2 Total Score 0 documented in this encounter [facility] 08-06-2023 History of Present illness Narrative 08/06/2023 Patient presents with: Blood Pressure Check SUBJECTIVE: This is a 68 year old that is here today for Above Complaints. BP readings have been elevated at home. has been checking with manual cuff. Atenolol increased three days ago. Readings have been 170-190/94-101. Patient admits to intermittent headaches and one day saw some black spot in his vision. Denies lightheadedness, dizziness, diplopia, visual loss, slurred speech, facial drooping, extremity numbness, tingling or weakness PAST MEDICAL HISTORY Diagnosis Date COPD (chronic obstructive pulmonary disease) ([facility]) Essential hypertension GERD (gastroesophageal reflux disease) Mixed hyperlipidemia Nodule of right lung Osteoarthritis of multiple joints 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) S/P prostatectomy Tobacco use disorder ALLERGIES Morphine and Prednisone MEDICATIONS Current Outpatient Medications Medication Sig atenolol (TENORMIN) 50 mg tablet Take 1 tablet by mouth once daily. cyclobenzaprine (FLEXERIL) 10 mg tablet Take 1 tablet by mouth as directed. 1/2 to 1 tablet po qhs as needed for spasm acetaminophen (TYLENOL EXTRA STRENGTH) 500 mg tablet Take 1,000 mg by mouth every 8 hours as needed. atorvastatin (LIPITOR) 40 mg tablet Take 1 tablet by mouth daily at bedtime. For cholesterol. lisinopril (ZESTRIL) 40 mg tablet Take 1 tablet by mouth once daily. pregabalin (LYRICA) 75 mg capsule Take one pill twice daily meloxicam (MOBIC) 15 mg tablet Take 1 tablet by mouth once daily. With food. omeprazole (PRILOSEC) 40 mg capsule Take 1 capsule by mouth two times a day. tiotropium-olodaterol (STIOLTO RESPIMAT) 2.5-2.5 mcg/actuation Inhale 2 Puffs as instructed once daily. albuterol HFA (VENTOLIN HFA) 90 mcg/actuation inhaler Inhale 2 Puffs as instructed every 4 hours as needed for wheezing/shortness of breath. aspirin, enteric coated (ASPIRIN, ENTERIC COATED) 81 mg EC tablet Take 81 mg by mouth once daily. docusate sodium (STOOL SOFTENER) 100 mg capsule Take 100 mg by mouth twice daily. cholecalciferol (VITAMIN D-3) 50 mcg (2,000 unit) tablet Take 2,000 Units by mouth once daily. beta-carotene,A,-vits C,E/mins (OCUVITE ORAL) Take 1 tablet by mouth once daily. calcium carbonate (CALCIUM 600 ORAL) Take 1 tablet by mouth once daily. Multivitamin capsule Take 1 capsule by mouth once daily. No current facility-administered medications for this visit. Medications and allergies reviewed by this provider. SOCIAL HISTORY Social History Tobacco Use Smoking status: Every Day Packs/day: 1.00 Years: 55.00 Additional pack years: 0.00 Total pack years: 55.00 Types: Cigarettes Smokeless tobacco: Never Tobacco comments: Pt has cut back to 1/2 pack daily. Vaping Use Vaping Use: Never used Substance Use Topics Alcohol use: Yes Comment: occasionaly Drug use: Never REVIEW OF SYSTEMS All other reviewed and negative other than HPI. OBJECTIVE: BP 169/90 Pulse 64 Resp 18 Wt 80.9 kg (178 lb 6.4 oz) SpO2 96% BMI 25.83 kg/m . Vital signs reviewed by this provider. APPEARANCE Well appearing, alert, in no acute distress, well-hydrated, well nourished. EYES PERRLA, conjunctiva and sclera normal. HEART RRR with normal S1 and S2, no murmurs, no gallops, no JVD appreciated LUNG clear to auscultation. No wheezes, rhonchi or rales EXTREMITIES Extremities normal, No deformities, No skin discoloration, and No edema NEURO Awake, alert and oriented x 3, Cranial nerves II-XII grossly intact, Reflexes symmetrical, Normal gait, No involuntary motions., and negative findings: speech normal, mental status intact, gait, including heel, toe, and tandem walking normal, Romberg negative, muscle tone normal, muscle strength normal, rapid alternating movements normal, finger to nose normal, reflexes normal and symmetric, plantar response downgoing bilaterally SKIN Skin color, texture, turgor normal, no suspicious rashes or lesions to exposed skin Abdominal Aortic Aneurysm Screening Never done BP Controlled (<130/80) Never done Lung Cancer Screening Never done Advance Directive Discussion Never done Shingrix Vaccine(1 of 2) due on 10/26/2023 Pneumococcal Vaccine: 65+(1 of 2 - PCV) due on 10/26/2023 DTaP,Tdap,Td Vaccine(1 - Tdap) due on 02/01/2024 RSV Vaccine(1 - 1-dose 60+ series) due on 02/01/2024 Hepatitis C Screening due on 02/01/2024 Covid-19 Vaccine( season) due on 02/01/2024 Influenza Vaccine(Season Ended) due on 12/07/2023 Annual PCP Team Chronic Disease Visit due on 08/05/2024 Diabetes Screening due on 06/05/2026 Lipid Screening due on 12/13/2027 Colorectal Cancer Screening due on 12/13/2027 Alpha-1 Antitrypsin Deficiency Screening Completed Spirometry Completed Behavioral Health Screening Completed HPV Vaccine Aged Out ASSESSMENT/PLAN: 1. Essential hypertension - ICD9: 401.9, ICD10: I10 - Uncontrolled - no red fla symptoms or exam findings - red fla symptoms discussed, verbalizes understanding - Continue current medications - Recommend home blood pressure monitoring, to bring results to next visit - Encouraged sodium restriction, DASH or Mediterranean diet - Recommend regular aerobic exercise - Smoking cessation encouraged; discussed risks to health and quitting strategies. Patient is not ready to quit - continue to wear compression hose - will continue to monitor BP and update me Friday, if remains elevated will titrate Atenol to 100 mg - discussed red flag symptoms in detail and if experience needs to go to ER, verbalizes understanding Naima Sinha APRN.[employer] GRINDER SET UP OPERATOR [employer] Prescription instructions reviewed with patient as applicable. Patient advised if symptoms do not improve or if symptoms worsen sooner, to contact their primary care physician. Potential red flag symptoms discussed with the patient. Reviewed appropriate action plan to take if red flag symptoms occur. Patient agreeable to treatment plan. Medical Decision Making: Problems: Moderate: 1+ chronic illnesses with change Risk: Moderate: Drug management Medical Decision Making Level: 4 - Moderate documented in this encounter [facility] 07-18-2023 History of Present illness Narrative Review of Systems Constitutional: Negative for activity change, chills, fever and unexpected weight change. Gastrointestinal: Negative for bowel retention or incontinence Genitourinary: Negative for difficulty urinating. Negative for bladder retention or incontinence Musculoskeletal: Positive for back pain, gait problem, myalgias, neck pain and neck stiffness. Negative for arthralgias and joint swelling. Neurological: Negative for weakness, numbness and headaches. Psychiatric/Behavioral: Negative for dysphoric mood, sleep disturbance and suicidal ideas. The patient is not nervous/anxious. Images from the original note were not included. [facility] [place] [facility] Today's Date: 07/18/2023 Name: Luis Angel Aguila : 1955 Purpose: New Patient Evaluation Chief complaint: hip pain and back pain Referring Clinician: Self Pertinent Past Medical History: Hypertension (HTN), Hyperlipidemia (HLD), COPD , Gastroesophageal Reflux Disease (GERD), Ileus (11/2022), 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 node, OA multiple joints, Nicotine use disorder, Pertinent Past Surgeries: Cervical fusion, Bilat shoulder surgery Interval History: Overall pain and functional disability since last visit: Better New Complaints since last visit: No PAIN DESCRIPTION: Timing: Intermittent Character: Aching, Primary Location: axial low back Radiation: bilateral buttocks and bilateral proximal lateral hips Exacerbating factors: Standing, Walking more than 2 minutes 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 Current Pain Medications: Neuropathics: lyrica NSAIDS: Mobic 15mg daily - helps a little bit Muscle Relaxants: Topicals: Other Prescription or OTC Pain Medications: ASA 81mg Opioids (when applicable): No question data found. Anti-depressants or Mood-Stabilizers: None Anti-Coagulants: None Therapies Attended (Current or Most Recent): Director Of Labor Relations - 1 time per week for 3 months (01/2023-04/2023), no relief PT remotely 05/01/2023 [facility] Questionnaire GREENLIGHT Completed Date 05/01/2023 Questionnaire Opiod Risk Tool Completed Date 05/01/2023 Comments Low Risk No question data found. (All drug screens are appropriate unless indicated otherwise) No table Events During Course of Treatment: History of Present Illness (HPI): 04/29/2023 - Initial HPI (Obtained by Hector Ritchie M.D.). DURATION AND ONSET: The pain complaint has been present for approximately many years. The pain had a gradual onset. The mechanism of injury is unknown. He reports he has had years of low back pain, but that the past 4-5 years, he has had worsening pain. He reports that he was told that radiation may have damaged the lumbar discs. He was 6'2 at one point, now is 5'9. He had radiation therapy for Prostate cancer in 2021, cancer returned, now using Lupron injections. RED FLAG SYMPTOMS: difficulty with bowel or bladder control. Treatment History: PAIN PROCEDURES: DATE PROCEDURE IMPROVEMENT 07/16/2023 B/L RFA L4-S1 To soon to tell. MEDICATIONS Taken TO DATE (for the chief complaint(s)): Neuropathics: Neurontin (Gabapentin) NSAIDS: Mobic (Meloxicam) Muscle Relaxants: None Topicals: None Other Prescription or OTC Pain Medications: Aspirin Opioids: None Data Reviewed Today: Allergies: ALLERGIES Allergen Reactions Morphine Rash, Itching Prednisone Mental Status Change Social History Tobacco Use Smoking status: Every Day Packs/day: 1.00 Years: 55.00 Additional pack years: 0.00 Total pack years: 55.00 Types: Cigarettes Smokeless tobacco: Never Tobacco comments: Pt has cut back to 1/2 pack daily. Vaping Use Vaping Use: Never used Substance Use Topics Alcohol use: Yes Comment: occasionaly Drug use: Never 07/16/2023 07/16/2023 INTAKE PAIN ASSESSMENT Are you having pain associated with your visit today? Yes, Provider notified No Pain Scales Verbal (Numeric Rating or Visual Analog Scale) Pain Level 5 Pain Location Back-Lower Description Aching Duration Units Years Frequency Continuous Intervention/Comfort measure Medication;Reposition;Relaxation;Cold; Exercise;Heat;Massage;Positioning;Ther apeutic techniques-CPRP Compliance: PDMP website checked and validated on 07/18/2023 by Alina Bryson APRN.TOOL GRINDER SET UP OPERATOR [employer] All prescriptions have been APPROPRIATELY filled. No suspicious activity was identified. Tramadol 50mg, #12 (11/14/2022) 05/01/2023 [facility] Questionnaire GREENLIGHT Completed Date 05/01/2023 Questionnaire Opiod Risk Tool Completed Date 05/01/2023 Comments Low Risk (All drug screens are appropriate unless indicated otherwise) Risk Assessment: LAST-7: 05/01/2023 LAST - 7 SCORES Score 0 (0-4) minimal anxiety, (5-9) mild anxiety, (10-14) moderate anxiety, (15-21) severe anxiety PHQ-9: 05/01/2023 PHQ-9 Score 1 (0-4) minimal depression, (5-9) mild depression, (10-14) moderate depression, (15-19) moderately severe depression, (20-27) severe depression Opioid Risk Tool: Family History of Substance Abuse: Yes Alcohol: 1 -Female Personal History of Substance Abuse: 0 - No Age between 16-45: 0 - No History of Pre-Adolescence Sexual Abuse: 0 - No Psychological Disease: 0 - No Risk Total: 1 Total Score Risk Category: Low Risk 0-3 (0-3, low risk or no risk; 4-7, moderate risk, 8+, high risk) Diagnostic Studies: Relevant Imaging: MRI Spine Report MRI LUMBAR SPINE WO IVCON Exam End: 05/27/2023 9:29 AM (Final result) Narrative: * * *Final Report* * * DATE OF EXAM: May 27 2023 9:00AM WOOD 0303 - MRI LUMBAR SPINE WO IVCON / PROCEDURE REASON: multiple diagnoses * * * * Physician Interpretation * * * * EXAMINATION: MRI LUMBAR SPINE WO IVCON CLINICAL HISTORY: Chronic bilateral low back pain, unspecified whether sciatica present. Failed NSAIDS for three months. TECHNIQUE: Routine lumbosacral spine MR protocol without gadolinium. MQ: [id number] COMPARISON: None. RESULT: Counting reference: Lumbosacral junction. For the purposes of this report, L4-5 is considered the level of the iliac crest and assume there are 5 lumbar-type vertebrae. Anatomic variant: None. Localizer images: T2 hyperintense presumed renal cysts. Alignment: Levoscoliosis, apex L3-L4. Bone marrow signal/fracture: No evidence of pathologic marrow infiltration. No evidence of prior fracture. Multilevel scattered predominantly type I endplate marrow degenerative signal changes most notably at L1-L2, L4-L5 and L5-S1. Conus: The conus is within normal limits of signal intensity and morphology. Paraspinal soft tissues: Paraspinal soft tissues are within normal limits. Lower thoracic spine: Visualized lower thoracic canal and foramina are patent. L1-L2: Mild spinal canal stenosis secondary disc osteophyte complex. Minimal degenerative facet arthrosis. Mild left and no significant right foraminal stenosis. L2-L3: Mild spinal canal stenosis secondary to right eccentric disc osteophyte complex. Mild to moderate right subarticular recess effacement. Mild degenerative facet arthrosis. Moderate left and mild right foraminal stenosis. L3-L4: Mild spinal canal stenosis secondary disc bulging and dorsal osteophytic endplate spurring. Right subarticular superimposed extrusion with caudal extension effacing the right subarticular zone and contacting/minimally impinging upon the traversing right L4 nerve root. Moderate degenerative facet arthrosis. Moderate right and mild left foraminal stenosis. L4-L5: Mild spinal canal stenosis secondary disc bulging and dorsal osteophytic endplate spurring. Moderate degenerative facet arthrosis. Mild left subarticular recess effacement. Moderate right and mild left foraminal stenosis. L5-S1: Mild spinal canal stenosis secondary disc bulging and dorsal osteophytic endplate spurring. Moderate degenerative facet arthrosis. Severe bilateral foraminal stenosis. Sacrum and iliac wings: Edema in both sacral ala which may be reflective of acute subacute sacral insufficiency fractures. Impression: IMPRESSION: Lumbar spondylosis and scoliosis with multiple levels of mild spinal canal stenosis. Moderate right subarticular recess effacement at L3-L4 secondary to small caudally directed extrusion. No high-grade spinal canal stenosis. Up to severe bilateral foraminal stenosis at L5-S1. Left greater than right sacral edema, suspicious of bilateral acute to subacute sacral insufficiency fractures. Anatomic Lumbar Variant: None. L4-5 is considered the level of the iliac crest and assume there are 5 lumbar-type vertebrae. Header Operator: [facility] Transcribe Date/Time: May 27 2023 9:49A Dictated by : SALAZAR HOFFMAN DO This examination was interpreted and the report reviewed and electronically signed by: SALAZAR HOFFMAN DO on May 27 2023 9:56AM EST X-ray Bilat. Hip / Lumbar 03/2023 RESULT: 5 nonrib-bearing lumbar-type vertebrae. For numbering purposes, L4-5 is at the level of the iliac crest. Severe disc space narrowing and multilevel vacuum phenomenon from L1 through S1. No acute fracture or focal bony abnormality. Degenerative change involving the posterior elements from L4 through S1. Levoscoliosis of 22 degrees as measured from inferior L1 to superior L4. AP pelvis and 2 coned-down views of each hip show mild degenerative change. No significant joint space narrowing. No fracture or focal bony abnormality. Normal mineralization and alignment. SI joints are Unremarkable IMPRESSION: DEGENERATIVE CHANGE AND ALIGNMENT ABNORMALITIES WITHIN THE LUMBAR SPINE DESCRIBED. MILD DEGENERATIVE CHANGE INVOLVING BOTH HIPS. Electrodiagnostic Study (EMG): None Recent Labs: Creatinine Date Value Ref Range Status 06/06/2023 0.84 0.73 - 1.22 mg/dL Final No results found for: EGFR No results found for: PCGLUCOSE Current Medications, Past Medical History, Past Surgical History, Family History, Social History and Review of Systems: On today's date, noted above, I have confirmed and edited as necessary, the PFSH and ROS obtained by others. Physical Exam Vitals reviewed. Constitutional: General: He is not in acute distress. Appearance: He is not ill-appearing. HENT: Head: Normocephalic and atraumatic. Eyes: Conjunctiva/sclera: Conjunctivae normal. Cardiovascular: Pulses: Normal pulses. Pulmonary: Effort: Pulmonary effort is normal. No respiratory distress. Musculoskeletal: Thoracic back: No tenderness or bony tenderness. No scoliosis. Lumbar back: Spasms and tenderness present. Decreased range of motion. Positive right straight leg raise test and positive left straight leg raise test. No scoliosis. Right hip: Tenderness (pain elicited with light palpation to right GT region) present. Decreased range of motion. Left hip: Tenderness present. Comments: Hip Flexion: Right- 5/5; Left- 5/5 Knee Extension: Right- 5/5; Left- 5/5 Dorsiflexion: Right- 5/5; Left- 5/5 Plantarflexion: Right- 5/5; Left- 5/5 Special Tests- Facet Loading: Right-Positive ; Left Positive SI Compression:Negative ISAAC:Right-Positive; Left Positive Skin: General: Skin is warm and dry. Neurological: Mental Status: He is alert and oriented to person, place, and time. Gait: Gait and tandem walk normal. Deep Tendon Reflexes: Reflexes are normal and symmetric. Reflex Scores: Patellar reflexes are 2+ on the right side and 2+ on the left side. Psychiatric: Mood and Affect: Mood and affect normal. Behavior: Behavior normal. Behavior is cooperative. IMPRESSION: 68 year old male presents with complaint(s) of axial low back pain, facet-mediated and hip pain, worse on the right. Will continue Lyrica nightly as patient feels it is beneficial. With assessment muscle spasms were noted in his paralumbar's spinal region. Will attempt Flexeril at bedtime patient was instructed he can take a half a tablet if it causes too much fatigue. Patient did have a radiofrequency ablation done on bilateral L 4 through S1. It is too soon to evaluate the effects will assess at his next visit. Diagnoses: (M54.50, G89.29) Chronic bilateral low back pain, unspecified whether sciatica present (primary encounter diagnosis) (M47.816) Lumbar spondylosis (M16.0) Primary osteoarthritis of both hips (M48.062) Spinal stenosis of lumbar region with neurogenic claudication (M70.71) Bursitis of right hip, unspecified bursa (M79.10) Myalgia PLAN: Luis Angel Aguila would benefit from the following to reach personal goals for decreasing pain, improving function and work participation, and/or improving quality of life: Medications: Requested Prescriptions Signed Prescriptions Disp Refills cyclobenzaprine (FLEXERIL) 10 mg tablet 30 tablet 2 Sig: Take 1 tablet by mouth as directed. 1/2 to 1 tablet po qhs as needed for spasm Interventional Procedures: NONE Studies: MRI: Lumbar Spine was reviewed pt states understanding. Functional Taoism: Continue home exercises from Chiropractics Referrals: No additional considerations at present Follow-up: 2 months Depending on response to the above plan, consider: Right GT bursa injection and/or TPI Attribution: In addition to reviewing the information noted above, some elements copied from my most recent clinical note(s), including the physical exam (completed in entirety today), and the impression and plan sections, have been updated where appropriate. All reflect current medical decision making from today's date. Alina Bryson APRN.CNP Pain Management [facility] documented in this encounter [facility] 07-16-2023 Instructions Naima Sinha APRN.CNP - 07/16/2023 3:43 PM EDT Check blood pressure daily and update me in one week with readings documented in this encounter [facility] 07-16-2023 History of Present illness Narrative 07/15/2023 Patient presents with: Blood Pressure Check SUBJECTIVE: This is a 68 year old that is here today for Above Complaints. BP elevated at last appointment. No medication changes made at that visit. Stopped his aldactone and restarted his HCTZ. BP elevated at home but can not give me specific readings. Denies visual changes, headaches, lightheadedness, slurred speech, facial drooping, extremity numbness, tingling or weakness 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) S/P prostatectomy Tobacco use disorder ALLERGIES Morphine and Prednisone MEDICATIONS Current Outpatient Medications Medication Sig hydroCHLOROthiazide 25 mg tablet Take 25 mg by mouth once daily. acetaminophen (TYLENOL EXTRA STRENGTH) 500 mg tablet Take 1,000 mg by mouth every 8 hours as needed. spironolactone (ALDACTONE) 25 mg tablet Take 1 tablet by mouth once daily. atorvastatin (LIPITOR) 40 mg tablet Take 1 tablet by mouth daily at bedtime. For cholesterol. lisinopril (ZESTRIL) 40 mg tablet Take 1 tablet by mouth once daily. pregabalin (LYRICA) 75 mg capsule Take one pill twice daily meloxicam (MOBIC) 15 mg tablet Take 1 tablet by mouth once daily. With food. omeprazole (PRILOSEC) 40 mg capsule Take 1 capsule by mouth two times a day. tiotropium-olodaterol (STIOLTO RESPIMAT) 2.5-2.5 mcg/actuation Inhale 2 Puffs as instructed once daily. albuterol HFA (VENTOLIN HFA) 90 mcg/actuation inhaler Inhale 2 Puffs as instructed every 4 hours as needed for wheezing/shortness of breath. aspirin, enteric coated (ASPIRIN, ENTERIC COATED) 81 mg EC tablet Take 81 mg by mouth once daily. docusate sodium (STOOL SOFTENER) 100 mg capsule Take 100 mg by mouth twice daily. cholecalciferol (VITAMIN D-3) 50 mcg (2,000 unit) tablet Take 2,000 Units by mouth once daily. beta-carotene,A,-vits C,E/mins (OCUVITE ORAL) Take 1 tablet by mouth once daily. calcium carbonate (CALCIUM 600 ORAL) Take 1 tablet by mouth once daily. Multivitamin capsule Take 1 capsule by mouth once daily. No current facility-administered medications for this visit. Medications and allergies reviewed by this provider. SOCIAL HISTORY Social History Tobacco Use Smoking status: Every Day Packs/day: 1.00 Years: 55.00 Additional pack years: 0.00 Total pack years: 55.00 Types: Cigarettes Smokeless tobacco: Never Tobacco comments: Pt has cut back to 1/2 pack daily. Vaping Use Vaping Use: Never used Substance Use Topics Alcohol use: Yes Comment: occasionaly Drug use: Never REVIEW OF SYSTEMS All other reviewed and negative other than HPI. OBJECTIVE: BP 158/89 Pulse 75 Resp 18 Wt 78.6 kg (173 lb 3.2 oz) SpO2 94% BMI 25.08 kg/m . Vital signs reviewed by this provider. APPEARANCE Well appearing, alert, in no acute distress, well-hydrated, well nourished. Abdominal Aortic Aneurysm Screening Never done BP Controlled (<130/80) Never done Lung Cancer Screening Never done Advance Directive Discussion Never done Shingrix Vaccine(1 of 2) due on 10/26/2023 Pneumococcal Vaccine: 65+(1 of 2 - PCV) due on 10/26/2023 DTaP,Tdap,Td Vaccine(1 - Tdap) due on 02/01/2024 RSV Vaccine(1 - 1-dose 60+ series) due on 02/01/2024 Hepatitis C Screening due on 02/01/2024 Covid-19 Vaccine( season) due on 02/01/2024 Influenza Vaccine(Season Ended) due on 12/07/2023 Annual PCP Team Chronic Disease Visit due on 07/15/2024 Diabetes Screening due on 06/05/2026 Lipid Screening due on 12/13/2027 Colorectal Cancer Screening due on 12/13/2027 Alpha-1 Antitrypsin Deficiency Screening Completed Spirometry Completed Behavioral Health Screening Completed HPV Vaccine Aged Out ASSESSMENT/PLAN: 1. Essential hypertension - ICD9: 401.9, ICD10: I10 - Uncontrolled - Start atenolol - Recommend home blood pressure monitoring, to bring results to next visit - Encouraged sodium restriction, DASH or Mediterranean diet - Recommend regular aerobic exercise - Smoking cessation encouraged; discussed risks to health and quitting strategies. 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 She will update me in one week with readings. Will titrate up if needed Naima Sinha APRN.JAMES Prescription instructions reviewed with patient as applicable. Patient advised if symptoms do not improve or if symptoms worsen sooner, to contact their primary care physician. Potential red flag symptoms discussed with the patient. Reviewed appropriate action plan to take if red flag symptoms occur. Patient agreeable to treatment plan. Medical Decision Making: Problems: Moderate: 1+ chronic illnesses with change Risk: Moderate: Drug management Medical Decision Making Level: 4 - Moderate documented in this encounter [facility] 07-16-2023 Nurse Note Order has been placed in the patient's chart with the following parameters for discharge from the physician: Patient is alert and oriented Vitals: Diastolic/Systolic +/- 20mmHg Respirations: 12-18 Pulse: 60-100 SpO2 is greater than or equal to 90% Patient has no nausea or vomiting Patient has no dizziness Pain level is +/- 2 from initial evaluation Dressing, dry and intact with no evidence of bleeding Criteria has been met, patient is okay to be discharged per the physician. Physician has gone in and evaluated the patient. Dressing dry and intact. No drainage noted. The patient denies nausea, numbness, tingling, weakness, shortness of breath, dizziness, or headache. Pain level 6/10. Vital signs within normal limits. Patient denied needing walked out by clinical staff and denied needing a wheelchair. Patient given discharge instructions and sent to transportation via ambulatory method. Patient left in good condition. Procedure to be performed: BILATERAL L4/5,L5/S1 LUMBAR RADIOFREQUENCY ABLATION Patient was wheeled on stretcher from pre op bay to procedure room and assisted onto the procedure tablePatient s procedure was performed in an [facility] Procedure room. Pause completed at each level by provider to verify correct level and laterality placement Pressure was applied to patient s injection site(s) and bleeding was minimal. Patient had no complaint of shortness of breath, dizziness, headache, numbness, tingling, weakness or complications from procedure. Patient was assisted from the procedure table onto the stretcher and wheeled into a post op bay. Patient was advised a clinician will be to obtain another set of vitals. Time Out: 1105 Confirmed patient name, date of , procedure site, laterality, and allergies Procedure Start: 1107 Procedure End: 112 Radio Recorder's Name: silvia Are you on a blood thinner: asa 81 If yes, is a hold required: n Last dose of blood thinner: n INR Result today: n Do you require a Lovenox bridge:n Are you a diabetic:n Are you/or could you be : n Are you taking Xanax for the procedure: y Are you currently on a steroid? n Are you currently on an antibiotic: n Have you had a COVID-19 vaccine in the last 14 days Or are you scheduled to receive one? n documented in this encounter [facility] 07-16-2023 Instructions Ashleigh Acosta LPN - 07/16/2023 11:05 AM EDT PROCEDURE DISCHARGE INSTRUCTIONS 07/16/2023 Luis Angel Aguila 1955 Physician: Hector Ritchie MD Procedure: BILATERAL L4/5,L5/S1 LUMBAR RADIOFREQUENCY ABLATION Post Procedure Instructions: If sedation given, no driving the day of the procedure., Rest the day of the procedure., You may resume normal activities the day after the procedure, as tolerated., Avoid movements that may aggravate pain., Apply cold compresses to injection site if needed., If medically acceptable, take over the counter anti-inflammatories such as ibuprofen or Aleve if needed for post procedure discomfort., No hot baths, hot tubs or hot compresses for 24 hours., and Your pain should subside in the next 4-6 weeks. If you have any of the following signs or symptoms, please call our office at Fever and/or chills Swelling and/or drainage from injection site New pain that is different than your normal pain (other than soreness at the site of the procedure) Stiff neck Shortness of breath Severe increase in pain Motor dysfunctions, such as difficulty walking, bowel or bladder dysfunction and/or incontinence Headache that is severe, light sensitive or develops when changing positions (positional headache) Nausea and/or vomiting accompanied by headache that started 24-48 hours after the procedure If you have any emergent concerns, please call 911 or go to your local emergency room. Please also contact our office to let us know you will be seeking emergency care and why. documented in this encounter [facility] 07-16-2023 History of Present illness Narrative Review of Systems Constitutional: Positive for activity change and chills. Negative for fever and unexpected weight change. Gastrointestinal: Negative for bowel retention or incontinence Genitourinary: Negative for difficulty urinating. Negative for bladder retention or incontinence Musculoskeletal: Positive for arthralgias, back pain, gait problem, joint swelling, myalgias, neck pain and neck stiffness. Neurological: Positive for weakness, numbness and headaches. Psychiatric/Behavioral: Positive for dysphoric mood and sleep disturbance. Negative for suicidal ideas. The patient is nervous/anxious. [facility] Date: 07/16/2023 Patient name: Luis Angel Aguila Physician performing procedure: Hector Ritchie M.D., M.B.A. Diagnosis: (M47.816) Lumbar spondylosis (primary encounter diagnosis) Procedure: Radiofrequency Ablation (Thermal RFA) - Lumbar Medial Branches under fluoroscopic guidance BILATERAL SIDES at L4-5 and L5-S1 Injectate: A total of 4 ml volume was injected The injectate consisted of: 1 ml of Depo-Medrol (40mg/ml), The remainder consisting of 0.75% Bupivacaine, . Each site received equal volumes of this injectate. Comments: Strong motor stim at L4, medium at L5 and S1 Improvement after today's procedure: as per nursing report HPI: Luis Angel Aguila is an 68 year old MALE who presents today, in pain, for the procedure noted above. Review of Systems: Pertinent Positives: MSK: pain in the region being treated Neuro: weakness or numbness in the region being treated (unless otherwise noted) Skin: Negative (No itching) Eyes: Negative (No blurred or double vision) Respiratory: Negative (No Cough, [id number], Dyspnea on exertion, wheezing) Cardiovascular: Negative (No Chest Pain, Tightness, Pressure, Palpitations) Gastrointestinal: Negative (No Abdominal pain, Nausea, Vomiting, Constipation, Diarrhea) Genitourinary: Negative (No dysuria) Hematologic: Negative (No bleeding, bruising) OB: is Denied or Not Applicable Endocrine: Negative (No hot/cold intolerance) Psychiatric: Negative (No depression, anxiety or suicidal ideation) 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) S/P prostatectomy Tobacco use disorder PAST SURGICAL HISTORY Procedure Laterality Date ABDOMINAL SURGERY HX APPENDECTOMY COLONOSCOPY 12/12/2022 repeat 5 years FOOT RIGHT OP SURGERY Right FRACTURE SURGERY REMOVAL OF PROSTATE REPAIR ABDOMINAL HERNIA SHOULDER SURGERY HX Bilateral XR CERVICAL FUSION OR FAMILY HISTORY Problem Relation Age of Onset Lung Cancer Mother Dementia Father other (ETOH) Father Hypertension Brother Aneurysm Maternal Grandmother other (car accident) Maternal Grandfather other (car accident) Paternal Grandfather Social History Tobacco Use Smoking status: Every Day Packs/day: 1.00 Years: 55.00 Additional pack years: 0.00 Total pack years: 55.00 Types: Cigarettes Smokeless tobacco: Never Tobacco comments: Pt has cut back to 1/2 pack daily. Vaping Use Vaping Use: Never used Substance Use Topics Alcohol use: Yes Comment: occasionaly Drug use: Never Current Outpatient Medications on File Prior to Visit Medication Sig acetaminophen (TYLENOL EXTRA STRENGTH) 500 mg tablet Take 1,000 mg by mouth every 8 hours as needed. spironolactone (ALDACTONE) 25 mg tablet Take 1 tablet by mouth once daily. atorvastatin (LIPITOR) 40 mg tablet Take 1 tablet by mouth daily at bedtime. For cholesterol. lisinopril (ZESTRIL) 40 mg tablet Take 1 tablet by mouth once daily. pregabalin (LYRICA) 75 mg capsule Take one pill twice daily meloxicam (MOBIC) 15 mg tablet Take 1 tablet by mouth once daily. With food. omeprazole (PRILOSEC) 40 mg capsule Take 1 capsule by mouth two times a day. tiotropium-olodaterol (STIOLTO RESPIMAT) 2.5-2.5 mcg/actuation Inhale 2 Puffs as instructed once daily. albuterol HFA (VENTOLIN HFA) 90 mcg/actuation inhaler Inhale 2 Puffs as instructed every 4 hours as needed for wheezing/shortness of breath. aspirin, enteric coated (ASPIRIN, ENTERIC COATED) 81 mg EC tablet Take 81 mg by mouth once daily. docusate sodium (STOOL SOFTENER) 100 mg capsule Take 100 mg by mouth twice daily. cholecalciferol (VITAMIN D-3) 50 mcg (2,000 unit) tablet Take 2,000 Units by mouth once daily. beta-carotene,A,-vits C,E/mins (OCUVITE ORAL) Take 1 tablet by mouth once daily. calcium carbonate (CALCIUM 600 ORAL) Take 1 tablet by mouth once daily. Multivitamin capsule Take 1 capsule by mouth once daily. No current facility-administered medications on file prior to visit. Objective Exam: Vitals: As per nursing documentation Constitutional: Normal Appearance, Oriented to Time, Place and Person Head: No lacerations, no external signs of trauma Eyes: Conjunctiva clear. No discharge from the eyes Cardiovascular: Appears well-perfused Pulmonary: Non-labored respirations Abdominal: Non-distended Skin: No visible rashes or ecchymosis Psychiatric: Mood appropriate for given condition Neurological: Gross movements are limited by pain, but otherwise unremarkable Data Reviewed: Nursing note and vitals reviewed. Additional imaging reviewed as appropriate Assessment and Plan: As noted above [place] protocol documentation / Pre-Procedure Checklist: Consent: Obtained in writing prior to procedure I had a nice discussion with the patient today about their current pain and the pathology that could be causing it We discussed different treatment options, including risks, benefits and alternatives. We agreed to proceed as previously discussed, or the plan was modified in accordance with the comments noted above Unless stated otherwise in the procedure note, the risks include but are not limited to infection, allergic reaction, increased pain, lack of therapeutic benefit, steroid reaction, nerve damage, paralysis, stroke, epidural hematoma, syncope, headache, respiratory or cardiac arrest, pneumothorax, and scar formation Once the plan was agreed upon, the patient gave written consent to proceed and was transported into the procedure room Surgical/Procedure pause or Time Out : Time Out was led by the physician in the procedure room, with the patient and all staff present and participating The following information was verified during the Time Out process: Patient name, patient date of , procedure site (marked), laterality, anticoagulants and allergies Procedure: The patient was prepped and draped in a sterile fashion in the prone position after informed consent was signed and all patient questions were answered including the risks, benefits, alternative treatment options, and prognosis. The risks are as mentioned above, except for pneumothorax. For all levels except L5, the transverse processes of these levels were localized. A 25 gauge needle was utilized to infiltrate the cutaneous layers with 1-2 ccs. of buffered 1% Lidocaine without Epinephrine for local anesthesia. The outer cannula was inserted ventrally and medially down to the base of the periosteum at the superomedial aspect of the transverse process. This was confirmed with an oblique view as well. To denervate the L5 facet joint nerve (the L5 dorsal ramus), the skin was anesthetized as noted above, then the outer cannula was fluoroscopically positioned at the junction of the superior articular process of the sacrum and the ala. For all levels treated, the outer cannula was placed as described above and the position was then confirmed with biplanar imaging. Test stimulation was done at motor levels to ensure that there was no radicular stimulation. The soft tissues were then infiltrated with 1-2 ccs. Of 2% Lidocaine without Epinephrine at each level. Subsequent to this, a pulsed neurotomy was carried out for 90 seconds at 55 degrees Celsius. Then, percutaneous neurotomy was carried out for 90 seconds at 80 degrees Celsius one additional time at each level for a total of three lesions per level. It was then repeated for each facet joint nerve mentioned above. Appropriate radiographs were obtained to verify the probe placement during the neurotomy. Please see the nursing note for exact times (time out, procedure start, procedure end). After careful removal of the needle, there was minimal bleeding. The injection site was covered with appropriate sterile dressing. The patient was noted to have tolerated the procedure well and was discharged after an appropriate period of post-procedure observation. The patient was instructed to contact us if there were any complications. The patient was advised to follow-up with the requesting physician within one to two weeks or as per their requested follow-up plan. Post procedure visit summary with written instructions was offered to the patient. Hector MARQUESA [facility] documented in this encounter [facility] 06-16-2023 History of Present illness Narrative Oncologic problem(s): 1) Castrate sensitive prostate cancer. HPI: The patient is a 68-year-old male with past medical history significant for hyperlipidemia, hypertension, moderate COPD, GERD, previous cervical spine surgery, chronic low back pain and prostate cancer. Developed gross hematuria. PSA 50s. RP with penile implant. Bladder tear about a month later. PET--recurrence in prostate bed. 06/2021 4 weeks RT in [place] with GnRH agonist treatment (Lupron). Stopped due to side effects--Severe diarrhea and n/v. PSA undetectable 06/2022. Presumably from Lupron. CT A/P 11/18/2022: IMPRESSION: 1. Postoperative ileus versus changes of early small bowel obstruction within the right pelvis as discussed above. Short-term follow-up suggested. 2. Changes of recent prostatectomy and penile implant. There is a 6.0 x 2.7 x 9.5 cm nonencapsulated postoperative fluid collection within the right lower quadrant subcutaneous fat adjacent to the penile pump. 3. Mild free fluid. 4. Sacral insufficiency fractures. Medically managed for SBO. Presents for ongoing oncologic management. Interim history: Frequent hot flashes especially at night. Started bifrontal, throbbing HAs about a month ago. Daily. Wakes up with them--worse in the morning. Eases to about 7/10 throughout the day. Was taking off HCTZ due to low sodium. Tried spironolactone. Went back to HCTZ. HAs don't respond to lower BP. Very stress over moving this past weekend. No symptoms of LUTS. No change in chronic LBP. 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) S/P prostatectomy Tobacco use disorder PAST SURGICAL HISTORY Procedure Laterality Date ABDOMINAL SURGERY HX APPENDECTOMY COLONOSCOPY 12/12/2022 repeat 5 years FOOT RIGHT OP SURGERY Right FRACTURE SURGERY REMOVAL OF PROSTATE REPAIR ABDOMINAL HERNIA SHOULDER SURGERY HX Bilateral XR CERVICAL FUSION OR ALLERGIES Allergen Reactions Morphine Rash, Itching Prednisone Mental Status Change Current Outpatient Medications Medication Sig hydroCHLOROthiazide 25 mg tablet Take 25 mg by mouth once daily. atorvastatin (LIPITOR) 40 mg tablet Take 1 tablet by mouth daily at bedtime. For cholesterol. lisinopril (ZESTRIL) 40 mg tablet Take 1 tablet by mouth once daily. pregabalin (LYRICA) 75 mg capsule Take one pill twice daily meloxicam (MOBIC) 15 mg tablet Take 1 tablet by mouth once daily. With food. omeprazole (PRILOSEC) 40 mg capsule Take 1 capsule by mouth two times a day. tiotropium-olodaterol (STIOLTO RESPIMAT) 2.5-2.5 mcg/actuation Inhale 2 Puffs as instructed once daily. albuterol HFA (VENTOLIN HFA) 90 mcg/actuation inhaler Inhale 2 Puffs as instructed every 4 hours as needed for wheezing/shortness of breath. aspirin, enteric coated (ASPIRIN, ENTERIC COATED) 81 mg EC tablet Take 81 mg by mouth once daily. docusate sodium (STOOL SOFTENER) 100 mg capsule Take 100 mg by mouth twice daily. cholecalciferol (VITAMIN D-3) 50 mcg (2,000 unit) tablet Take 2,000 Units by mouth once daily. beta-carotene,A,-vits C,E/mins (OCUVITE ORAL) Take 1 tablet by mouth once daily. calcium carbonate (CALCIUM 600 ORAL) Take 1 tablet by mouth once daily. Multivitamin capsule Take 1 capsule by mouth once daily. spironolactone (ALDACTONE) 25 mg tablet Take 1 tablet by mouth once daily. No current facility-administered medications for this visit. Social History Tobacco Use Smoking status: Every Day Packs/day: 1.00 Years: 55.00 Additional pack years: 0.00 Total pack years: 55.00 Types: Cigarettes Smokeless tobacco: Never Tobacco comments: Currently smoking 04/08 ppd 02/06/2023 Vaping Use Vaping Use: Never used Substance Use Topics Alcohol use: Yes Comment: occasionaly Drug use: Never Family History Problem Relation Age of Onset Lung Cancer Mother Dementia Father other (ETOH) Father Hypertension Brother Aneurysm Maternal Grandmother other (car accident) Maternal Grandfather other (car accident) Paternal Grandfather ROS: Constitutional: No fever. No drenching night sweats. Normal appetite. No unexplained weight loss. No significant fatigue. Neuro: No recent CORTEZ, vertigo, dizziness or imbalance. HEENT: No recent change in voice, vision or hearing. Resp: No cough, wheeze of hemoptysis. No shortness of breath at rest. ANDERSON--can't climb full set of stairs. CVS: No exertional chest pain, PND or orthopnea. No extremity swelling/edema. No symptoms of claudication. No painful or tender varicose veins. GI: No dysgeusia. No symptoms of stomatitis. No dysphagia or odynophagia. No reflux, n/v, change in bowel habits. No abdominal pain, bloating or distension. No black or bloody stools. : See HPI. Endo: No hot flashes. No polyuria or polydipsia. No heat or cold intolerance. Musculoskeletal: Chronic LBP. Derm: No current rash. No history of jaundice. No diffuse pruritis. Heme: No unusual bleeding and unexplained bruising. Psych: Normal mood. PHYSICAL EXAM: Vitals: Blood pressure 166/94, pulse 80, temperature 36.4 C (97.5 F), temperature source Temporal, weight 79.8 kg (176 lb), SpO2 100%. Well-appearing and in no acute distress. EYES: Sclerae are anicteric bilaterally. LYMPHATIC: There is no palpable cervical, supraclavicula adenopathy. RESPIRATORY: Inspiratory breath sounds are of normal intensity in all arana. No rales, wheezes or rhonchi. CARDIOVASCULAR: Rhythm is regular. ABDOMEN: The abdomen is nondistended. Extremities: No swelling or edema. SKIN: No jaundice. MUSCULOSKELETAL: No muscle wasting. 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 Diagnosed with prostate cancer after developing gross hematuria. Underwent RP in [place]. Shortly thereafter he was started on ADT and radiation. Was not able to complete therapy secondary to severe diarrhea, nausea and vomiting. Has been receiving intermittent ADT since. He gets significant hot flashes and mood swings with ADT. -PSA undetectable 09/2022. 0.23 ng/mL 12/13/2022. -Reviewed Dr. Rahman's recommendations with him: Continue to monitor PSA every 3 months. Once PSADT <6 months, start intermittent Lupron. Once he develops mCRPC, Provenge vs. Pluvicto would be indicated at that time, pending data from PSMAfore trial, which will be presented at the [employer] Annual [employer] in 01/2023. -Again educated him on the importance of addressing modifiable cardiovascular risk factors particularly since he will be undergoing intermittent testosterone suppression. He does not appear to be psychologically motivated to quit smoking at this time although he has cut back. -PSA doubling time was 2.9 months--restarted Lupron 03/14/2023. -Again discussed the strategy of intermittent ADT. Will continue till PSA undetectable then consider taking a break. Plan: -Lupron today. -PSA then OV in 3 months. -Needs follow-up with PCPs office for management of hypertension, headaches and hypercholesterolemia. Portions of this documentation were copied and pasted from previous office visit notes in order to provide a cohesive continuity of the history. The note has been reviewed and edited and updated as necessary. I spent a total of 20 minutes on the date of the service which included preparing to see the patient, [id number] patient care, completing clinical documentation, obtaining and/or reviewing separately obtained history, performing a medically appropriate examination, counseling and educating the patient/family/caregiver, ordering medications, tests, or procedures, communicating with other HCPs (not separately reported), and communicating results to the patient/family/caregiver. Monica Jung DO documented in this encounter [facility] 06-10-2023 Nurse Note JOAQUIN BP average: BP 169/94 P 59 #1 BP 189/89 P 66 #2 BP 172/98 P 60 #3 BP 165/95 P 59 #4 BP 163/95 P 60 #5 BP 176/89 P 58 #6 BP 172/92 P 58 Ashlie Osborn LPN documented in this encounter [facility] 06-10-2023 Instructions KalpeshlogNaima montilla APRN.JAMES - 06/10/2023 8:55 AM EST Compression daily put on in AM and off at bedtime. Low salt diet- less than 2000 mg daily. Stay hydrated with water Take BP at home daily and record. Bring home BP cuff to office at next visit documented in this encounter [facility] 06-10-2023 History of Present illness Narrative 06/10/2023 Patient presents with: Hypertension: With bilateral lower extremity swelling SUBJECTIVE: This is a 68 year old that is here today for Above Complaints.. Seen on 06/06/2023 for increased BP and leg swelling since stopping his HCTZ. Lisinopril was increased to 40 mg when HCTZ stopped. Aldactone started on 06/06/2023 visit. Took his first dose of the aldactone on 06/07/2023. Swelling gone in the morning but comes as the day goes on. Has not taken any of his BP medications today yet. Has been checking BP at home and runing 180/90's. Has noted some headaches and some dizziness however he reports he has had some dizziness on and off for some time. Denies visual changes, presyncope syncope, slurred speech, facial drooping, SOB, dyspnea, chest pain, palpitations, extremity numbness, tingling or weakness 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) S/P prostatectomy Tobacco use disorder ALLERGIES Morphine and Prednisone MEDICATIONS Current Outpatient Medications Medication Sig spironolactone (ALDACTONE) 25 mg tablet Take 1 tablet by mouth once daily. atorvastatin (LIPITOR) 40 mg tablet Take 1 tablet by mouth daily at bedtime. For cholesterol. lisinopril (ZESTRIL) 40 mg tablet Take 1 tablet by mouth once daily. pregabalin (LYRICA) 75 mg capsule Take one pill twice daily meloxicam (MOBIC) 15 mg tablet Take 1 tablet by mouth once daily. With food. omeprazole (PRILOSEC) 40 mg capsule Take 1 capsule by mouth two times a day. tiotropium-olodaterol (STIOLTO RESPIMAT) 2.5-2.5 mcg/actuation Inhale 2 Puffs as instructed once daily. albuterol HFA (VENTOLIN HFA) 90 mcg/actuation inhaler Inhale 2 Puffs as instructed every 4 hours as needed for wheezing/shortness of breath. aspirin, enteric coated (ASPIRIN, ENTERIC COATED) 81 mg EC tablet Take 81 mg by mouth once daily. docusate sodium (STOOL SOFTENER) 100 mg capsule Take 100 mg by mouth twice daily. cholecalciferol (VITAMIN D-3) 50 mcg (2,000 unit) tablet Take 2,000 Units by mouth once daily. beta-carotene,A,-vits C,E/mins (OCUVITE ORAL) Take 1 tablet by mouth once daily. calcium carbonate (CALCIUM 600 ORAL) Take 1 tablet by mouth once daily. Multivitamin capsule Take 1 capsule by mouth once daily. No current facility-administered medications for this visit. Medications and allergies reviewed by this provider. SOCIAL HISTORY Social History Tobacco Use Smoking status: Every Day Packs/day: 1.00 Years: 55.00 Additional pack years: 0.00 Total pack years: 55.00 Types: Cigarettes Smokeless tobacco: Never Tobacco comments: Currently smoking / ppd 02/06/2023 Vaping Use Vaping Use: Never used Substance Use Topics Alcohol use: Yes Comment: occasionaly Drug use: Never REVIEW OF SYSTEMS All other reviewed and negative other than HPI. OBJECTIVE: BP 169/94 Pulse (!) 59 Resp 18 Wt 80.4 kg (177 lb 3.2 oz) SpO2 95% BMI 25.66 kg/m . Vital signs reviewed by this provider. APPEARANCE Well appearing, alert, in no acute distress, well-hydrated, well nourished. EYES conjunctiva and sclera normal. NECK Supple, no bruits HEART RRR with normal S1 and S2, no murmurs, no gallops, no JVD appreciated LUNG clear to auscultation. No wheezes, rhonchi or rales EXTREMITIES Extremities normal, No deformities, No skin discoloration, No edema, and Normal pulses bilaterally. SKIN Skin color, texture, turgor normal, no suspicious rashes or lesions to exposed skin Abdominal Aortic Aneurysm Screening Never done BP Controlled (<130/80) Never done Lung Cancer Screening Never done Advance Directive Discussion Never done Depression Assessment due on 04/07/2023 Influenza Vaccine(1) due on 10/05/2023 Shingrix Vaccine(1 of 2) due on 10/26/2023 Pneumococcal Vaccine: 65+(1 of 2 - PCV) due on 10/26/2023 DTaP,Tdap,Td Vaccine(1 - Tdap) due on 02/01/2024 RSV Vaccine(1 - 1-dose 60+ series) due on 02/01/2024 Hepatitis C Screening due on 02/01/2024 Covid-19 Vaccine( - 2022- season) due on 02/01/2024 Annual PCP Team Chronic Disease Visit due on 06/05/2024 Diabetes Screening due on 06/05/2026 Lipid Screening due on 12/13/2027 Colorectal Cancer Screening due on 12/13/2027 Alpha-1 Antitrypsin Deficiency Screening Completed Spirometry Completed HPV Vaccine Aged Out ASSESSMENT/PLAN: 1. Essential hypertension - ICD9: 401.9, ICD10: I10 (primary diagnosis) - Uncontrolled - Continue current medications - Recommend home blood pressure monitoring, to bring results to next visit - Encouraged sodium restriction, DASH or Mediterranean diet - Recommend regular aerobic exercise - Smoking cessation encouraged; discussed risks to health and quitting strategies. Patient is not ready to quit - Follow up in 2 weeks for hypertension visit 2. Bilateral leg edema - ICD9: 782.3, ICD10: R60.0 - none on exam today - discussed compression hose and low salt diet - follow-up if fails to improve Naima Sinha APRN.CNP Prescription instructions reviewed with patient as applicable. Patient advised if symptoms do not improve or if symptoms worsen sooner, to contact their primary care physician. Potential red flag symptoms discussed with the patient. Reviewed appropriate action plan to take if red flag symptoms occur. Patient agreeable to treatment plan. ' Medical Decision Making: Problems: Moderate: 1+ chronic illnesses with change Risk: Moderate: Moderate risk from testing/treatment Medical Decision Making Level: 4 - Moderate documented in this encounter [facility] 06-09-2023 Miscellaneous Notes Procedure(s) being scheduled: Bilateral L4-5 and L5-S1 RFA under fluoroscopic guidance (xanax) 1.Are you diabetic No 2. Are you on any blood thinners? No If yes, does it require a hold? No If yes, was approval letter sent? No 3. Are you taking any aspirin? Yes 81mg 4. Are you currently taking any antibiotics? No If yes, is it prophylactic or for treatment of an infection? Yes 5. Do you have any allergies to latex? No 6. Do you have any allergies to seafood or shellfish? No 7. Do you have any allergies to x-ray dye? No 8. Did the physician instruct you to take any medication prior to your procedure? Yes 9. Does this procedure require a delivery route driver? Yes If yes, has patient been notified that a delivery route driver is needed and must be present at check in? Yes 10. Were the pre-procedure instructions explained and provided to the patient? Yes 11. Do you have a pacemaker? No 12. Do you have an internal stimulator of any kind? No If yes, please bring the remote with you to your procedure visit. 13. Have you received the COVID-19 Vaccine? Yes. If yes, date(s) received: N/A (Patient should not receive a procedure including steroids 14 days prior to their first dose of the COVID vaccine. They should not receive any procedure containing steroids in the time frame between their 1st and 2nd doses of the COVID vaccine. They should not receive a procedure containing steroids 14 days after their 2nd dose of the COVID vaccine.) Felipa Monsivais documented in this encounter [facility] 06-06-2023 History of Present illness Narrative Chief Complaint Patient presents with: BP Check HPI Luis Angel Aguila is a 68 year old male who presents here today for Above Complaints. Luis Angel is an established patient of Dr. Cipriano MD. He is a new patient to me today. Per TE: If possible can Luis Angel come and see Naima today BP been high this am 189/98. Headache and still having edema in both feet and ankles. Ever since Dr Cota took him off his HCTZ his BP climbing and increasing edema. He s off today. Please try. Thanks Last office visit with Dr. Cota on 05/05/23: ASSESSMENT/PLAN: 1. Essential hypertension - ICD9: 401.9, ICD10: I10 (primary diagnosis) - Controlled - Discontinue HCTZ for hyponatremia and increase lisinopril to 40 mg daily. Recheck CMP today. - Recommend home blood pressure monitoring, to bring results to next visit - Encouraged sodium restriction, DASH or Mediterranean diet - Recommend regular aerobic exercise - Smoking cessation encouraged; discussed risks to health and quitting strategies. Patient is not ready to quit - Follow up in 2 weeks for hypertension visit 2. Hyponatremia - ICD9: 276.1, ICD10: E87.1 See above. - COMP METABOLIC PANEL CMP showed normal kidney function and potassium level. Sodium level was 132. In office today... He states compliant with current blood pressure medication(s): lisinopril 40 mg daily. He does check BP at home once daily. Average home readings: 180s/90s the last few days. Systolic in the 200s when in Dr. Ritchie's office on Friday, BP came down enough on own enough to have procedure completed. He denies chest pain, shortness of breath, palpitations, dizziness, headaches, or vision changes. Pt does report bilateral ankle and feet swelling and pitting edema since coming off of the HCTZ. Tries to elevated feet as much as possible which does help the swelling slightly per pt. Pt reports swelling is the best today that it has been. Last 14 Encounter BP Readings: Date: BP: 06/06/2023 160/88 06/04/2023 154/83 05/21/2023 164/96 05/05/2023 134/80 03/17/2023 108/76 02/06/2023 149/87 01/31/2023 132/72[recheck[ 01/06/2023 158/90 12/12/2022 154/88 11/25/2022 132/80 11/18/2022 141/88 11/18/2022 124/75 10/25/2022 134/84 Past medical history, appointments, medications, allergies reviewed. Previous Medical History 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) S/P prostatectomy Tobacco use disorder Previous Surgical History PAST SURGICAL HISTORY Procedure Laterality Date ABDOMINAL SURGERY HX APPENDECTOMY COLONOSCOPY 12/12/2022 repeat 5 years FOOT RIGHT OP SURGERY Right FRACTURE SURGERY REMOVAL OF PROSTATE REPAIR ABDOMINAL HERNIA SHOULDER SURGERY HX Bilateral XR CERVICAL FUSION OR Family History FAMILY HISTORY Problem Relation Age of Onset Lung Cancer Mother Dementia Father other (ETOH) Father Hypertension Brother Aneurysm Maternal Grandmother other (car accident) Maternal Grandfather other (car accident) Paternal Grandfather Patient Allergies ALLERGIES Allergen Reactions Morphine Rash, Itching Prednisone Mental Status Change Current Medications Current Outpatient Medications on File Prior to Visit Medication Sig ALPRAZolam 0.5 mg dissolvable tablet BRING 2 TABLETS TO PROCEDURE LOCATION ON THE DAY OF PROCEDURE, TO BE ADMINISTERED BY STAFF atorvastatin (LIPITOR) 40 mg tablet Take 1 tablet by mouth daily at bedtime. For cholesterol. lisinopril (ZESTRIL) 40 mg tablet Take 1 tablet by mouth once daily. pregabalin (LYRICA) 75 mg capsule Take one pill twice daily gabapentin (NEURONTIN) 300 mg capsule Take 1 capsule by mouth two times a day for 30 days. (Patient taking differently: Take 300 mg by mouth two times a day. Discontinued and lyrica started) meloxicam (MOBIC) 15 mg tablet Take 1 tablet by mouth once daily. With food. omeprazole (PRILOSEC) 40 mg capsule Take 1 capsule by mouth two times a day. tiotropium-olodaterol (STIOLTO RESPIMAT) 2.5-2.5 mcg/actuation Inhale 2 Puffs as instructed once daily. albuterol HFA (VENTOLIN HFA) 90 mcg/actuation inhaler Inhale 2 Puffs as instructed every 4 hours as needed for wheezing/shortness of breath. aspirin, enteric coated (ASPIRIN, ENTERIC COATED) 81 mg EC tablet Take 81 mg by mouth once daily. docusate sodium (STOOL SOFTENER) 100 mg capsule Take 100 mg by mouth twice daily. cholecalciferol (VITAMIN D-3) 50 mcg (2,000 unit) tablet Take 2,000 Units by mouth once daily. beta-carotene,A,-vits C,E/mins (OCUVITE ORAL) Take 1 tablet by mouth once daily. calcium carbonate (CALCIUM 600 ORAL) Take 1 tablet by mouth once daily. Multivitamin capsule Take 1 capsule by mouth once daily. No current facility-administered medications on file prior to visit. Social History Social History Tobacco Use Smoking status: Every Day Packs/day: 1.00 Years: 55.00 Additional pack years: 0.00 Total pack years: 55.00 Types: Cigarettes Smokeless tobacco: Never Tobacco comments: Currently smoking / ppd 02/06/2023 Vaping Use Vaping Use: Never used Substance Use Topics Alcohol use: Yes Comment: occasionaly Drug use: Never REVIEW OF SYSTEMS: as above Reviewed relevant PMHx, PSHx, Social Hx, current medications and allergies. Review of Symptoms REVIEW OF SYSTEMS See HPI. EXAM: BP 160/88 (BP Site: Left Arm, BP Position: Sitting, BP Cuff Size: Large Adult) Pulse 80 Resp 16 Wt 81.6 kg (180 lb) BMI 26.06 kg/m General Appearance: Well appearing, alert, in no acute distress, well-hydrated, well nourished.. Skin: Skin color, texture, turgor normal, no suspicious rashes or lesions. Head: Normocephalic, no masses, lesions, tenderness or abnormalities. Lungs: Lungs clear to auscultation. No wheezing, rhonchi, rales.. Heart: RRR without murmur, gallop, or rubs. No ectopy. Extremities: No deformities, skin discoloration, clubbing or cyanosis. Good capillary refill. , Positive findings: mild bilateral ankle and feet edema, non-pitting in office. Health Maintenance List Abdominal Aortic Aneurysm Screening Never done BP Controlled (<130/80) Never done Lung Cancer Screening Never done Advance Directive Discussion Never done Depression Assessment due on 04/07/2023 Influenza Vaccine(1) due on 10/05/2023 Shingrix Vaccine(1 of 2) due on 10/26/2023 Pneumococcal Vaccine: 65+(1 of 2 - PCV) due on 10/26/2023 DTaP,Tdap,Td Vaccine(1 - Tdap) due on 02/01/2024 RSV Vaccine(1 - 1-dose 60+ series) due on 02/01/2024 Hepatitis C Screening due on 02/01/2024 Covid-19 Vaccine(4 - 2022- season) due on 02/01/2024 Annual PCP Team Chronic Disease Visit due on 05/05/2024 Diabetes Screening due on 05/05/2026 Lipid Screening due on 12/13/2027 Colorectal Cancer Screening due on 12/13/2027 Alpha-1 Antitrypsin Deficiency Screening Completed Spirometry Completed HPV Vaccine Aged Out ASSESSMENT/PLAN: 1. Essential hypertension - ICD9: 401.9, ICD10: I10 (primary diagnosis) - Worsening control - Continue current medications - Start spironolactone 25 mg daily -- trial alternative diuretic to help with swelling and BP. Need to monitor potassium and sodium levels closely. - Recommend home blood pressure monitoring, to bring results to next visit - Encouraged sodium restriction, DASH or Mediterranean diet - Recommend regular aerobic exercise - Follow up in 1 week as scheduled for hypertension visit - SPIRONOLACTONE 25 MG TABLET 2. Hyponatremia - ICD9: 276.1, ICD10: E87.1 Repeat CMP today to recheck sodium level after being off of HCTZ x 1 month. Pt aware that new diuretic regimen of spirolactone is less likely to cause hyponatremia but can still occur. Need to keep close eye on potassium and sodium levels. Follow-up with PCP team as scheduled next week to reassess. - COMP METABOLIC PANEL - COMP METABOLIC PANEL 3. Bilateral leg edema - ICD9: 782.3, ICD10: R60.0 See above. RTO as scheduled. Prescription instructions reviewed with patient as applicable. Potential red flag symptoms discussed with the patient. Reviewed appropriate action plan to take if red flag symptoms occur. Patient agreeable to treatment plan. Antonia Rogers APRN.TOOL GRINDER SET UP OPERATOR [employer] [address] [place] [address] documented in this encounter [facility] 06-06-2023 Miscellaneous Notes Noted. Will assess today. Thank you, Antonia Muñoz APRN.TOOL GRINDER SET UP OPERATOR [employer] Patient scheduled with Kathleen Muñoz NP at 1140am. Ashlie Osborn LPN documented in this encounter [facility] 06-06-2023 Instructions Cintia Martin PA-C - 06/06/2023 9:32 AM EST [facility] What is it? Facet joint and sacroiliac joint denervation (also called rhizotomy, ablation, neurotomy or neurolysis) uses radiofrequency energy to temporarily interrupt or destroy the nerve that carries pain signals from the facet (zygapophyseal) joint or sacroiliac joint. The nerve branches from the facet joints are called the medial branches and the nerve branches from the sacroiliac joints are called the lateral branches. Each facet joint receives input from the two medial branches and each sacroiliac joint receives input from four lateral branches. Prior to performing a radiofrequency procedure, an injection of short-acting anesthetic (numbing medication) is injected to achieve short-term pain relief. If significant short-term pain relief is seen with the anesthetic, then a patient may be a candidate for the radiofrequency denervation procedure. Who should get radiofrequency denervation? The procedures are typically ordered for patients who have gotten significant short-term pain relief from facet joint medial branch injections and sacroiliac joint injections but have failed to get long-term improvement from these injections. How long does the injection take? Typically the radiofrequency ablation takes about one hour to perform, but expect to spend 15-20 minutes at our facility due to preparation time before the procedure and evaluation after the procedure. What are the risks of radiofrequency ablation? With all injections there is a risk of infection, bleeding, temporary increase in pain and injury to the structures along the course of the needle or injury to other nerve branches by the radiofrequency probe. By using sterile equipment and technique we minimize the Risk of infection. The risk of bleeding is minimized by discontinuation of blood thinners (this typically requires approval from the prescribing doctor) and non-steroidal anti-inflammatory medications (except Celebrex). By using X-ray guidance (fluoroscopy) we minimize the risk of injury to the structure along the course of the needle. The sensory and motor stimulation reduce the risk of injury to other nerves. Who should NOT have this injection? If you have an active infection, poorly controlled hypertension, diabetes, congestive heart failure or are unable to stop taking blood thinners, you may not be a candidate for these types of injections. documented in this encounter [facility] 06-06-2023 History of Present illness Narrative VIRTUAL VISIT PROGRESS NOTE This is a virtual visit using [employer] Zoom Video Visit. It required patient-provider interaction for the medical decision making as documented below. Pain score 3-4/10. Chief Complaint/Reason: Low back pain Interval History: Patient underwent the following injection with Dr. Ritchie on 06/04/23: Medial Branch Block (Diagnostic only, NO STEROIDS) under fluoroscopic guidance BILATERAL SIDES at L4-5 and L5-S1 CMS Checklist, Response to Fluoroscopically-guided, Diagnostic (non-steroid) Facet Joint Blockade (aka Medial Branch Block ): Block: 2 of 2 Date: 06/04/23 Pain response post procedure: 3/10 Pain response pre procedure: 8/10 % overall improvement: 80% Duration of improvement: 1-2 days (Agent utilized: Bupivacaine 0.75%) Functional Metric Post-Injection (Oswestry Questionnaire at 2 hours post-injection): 6 Baseline (Pre-Injection) Score: 35 % overall functional improvement: 80% Positive Diagnostic Response? yes Date of Block #1: 03/20/2024 Response to block #1: Pain response post procedure: 2/10 Pain response pre procedure: 8/10 % overall improvement: 80% Duration of improvement: 1-2 days (Agent utilized: Bupivacaine 0.75%) Functional Metric Post-Injection (Oswestry Questionnaire at 2 hours post-injection): 6 Baseline (Pre-Injection) Score: 35 % overall functional improvement: 80% Positive Diagnostic Response? yes Per CMS criteria, the patient has had two positive responses to diagnostic (non-steroid) medial branch blocks under fluoroscopic guidanceand is appropriate for Radiofrequency Ablation (RFA), aka Facet Joint Denervation of the involved facet joints under fluoroscopic guidance. Review of Systems: Reviewed on today's date. Pertinent Positives: MSK - pain in the region being treated Neuro: No weakness or numbness in the region being treated Skin: Negative (No itching) Eyes: Negative (No blurred or double vision) Respiratory: Negative (No Cough, [id number], Dyspnea on exertion, wheezing) Cardiovascular: Negative (No Chest Pain, Tightness, Pressure, Palpitations) Gastrointestinal: Negative (No Abdominal pain, Nausea, Vomiting, Constipation, Diarrhea) Genitourinary: Negative (No dysuria) Hematologic: Negative (No bleeding, bruising) Endocrine: Negative (No hot/cold intolerance) Psychiatric: Negative (No change in mood/affect) PDMP website checked and validated on today's date by Cintia Martin PA-C. No suspicious activity was identified. REVIEWED IMAGING: None new to review PHYSICAL EXAMINATION: There were no vitals taken for this visit. VIDEO EXAM: (if completed, performed via video enabled technology) GENERAL: alert and appropriate, in no distress, well-hydrated, well nourished, and happy, smiling, interactive SKIN: no rash noted HEAD: normocephalic, no abnormality or lesion noted EYES: no injection and visual acuity is grossly normal EARS: hearing grossly normal NOSE: external nose normal without rhinorrhea OROPHARYNX: moist mucus membranes NECK: full ROM, no cervical LNs noted RESPIRATORY: breathing non-labored CHEST: equal chest rise with normal respiratory effort EXTREMITIES: Gross movements intact NEUROLOGIC: no obvious deficit Current Medications, Past Medical History, Past Surgical History, Family History, Social History and Review of Systems: On today's date, noted above, I have confirmed and edited as necessary, the PFSH and ROS obtained. 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 Unless explicitly instructed otherwise, patient was advised that they will need a delivery route driver for after the procedure and that if no delivery route driver is available and on site at the time of the procedure, the procedure will be cancelled. For any anticoagulants, the patient was advised on whether to continue or hold for this procedure. The patient expressed understanding and gave verbal consent to proceed Follow-up: In person follow up 4 weeks after RFA, patient wants to discuss neck and hip pain Cintia Martin PA-C ([place]) Pain [facility] I spent a total of 31 minutes on the date of the service which included preparing to see the patient, [id number] patient care, completing clinical documentation, obtaining and/or reviewing separately obtained history, counseling and educating the patient/family/caregiver, and ordering medications, tests, or procedures. Patient Instructions [facility] What is it? Facet joint and sacroiliac joint denervation (also called rhizotomy, ablation, neurotomy or neurolysis) uses radiofrequency energy to temporarily interrupt or destroy the nerve that carries pain signals from the facet (zygapophyseal) joint or sacroiliac joint. The nerve branches from the facet joints are called the medial branches and the nerve branches from the sacroiliac joints are called the lateral branches. Each facet joint receives input from the two medial branches and each sacroiliac joint receives input from four lateral branches. Prior to performing a radiofrequency procedure, an injection of short-acting anesthetic (numbing medication) is injected to achieve short-term pain relief. If significant short-term pain relief is seen with the anesthetic, then a patient may be a candidate for the radiofrequency denervation procedure. Who should get radiofrequency denervation? The procedures are typically ordered for patients who have gotten significant short-term pain relief from facet joint medial branch injections and sacroiliac joint injections but have failed to get long-term improvement from these injections. How long does the injection take? Typically the radiofrequency ablation takes about one hour to perform, but expect to spend 15-20 minutes at our facility due to preparation time before the procedure and evaluation after the procedure. What are the risks of radiofrequency ablation? With all injections there is a risk of infection, bleeding, temporary increase in pain and injury to the structures along the course of the needle or injury to other nerve branches by the radiofrequency probe. By using sterile equipment and technique we minimize the Risk of infection. The risk of bleeding is minimized by discontinuation of blood thinners (this typically requires approval from the prescribing doctor) and non-steroidal anti-inflammatory medications (except Celebrex). By using X-ray guidance (fluoroscopy) we minimize the risk of injury to the structure along the course of the needle. The sensory and motor stimulation reduce the risk of injury to other nerves. Who should NOT have this injection? If you have an active infection, poorly controlled hypertension, diabetes, congestive heart failure or are unable to stop taking blood thinners, you may not be a candidate for these types of injections. documented in this encounter [facility] 06-04-2023 Nurse Note Order has been placed in the patient's chart with the following parameters for discharge from the physician: Patient is alert and oriented Vitals: Diastolic/Systolic +/- 20mmHg Respirations: 12-18 Pulse: 60-100 SpO2 is greater than or equal to 90% Patient has no nausea or vomiting Patient has no dizziness Pain level is +/- 2 from initial evaluation Dressing, dry and intact with no evidence of bleeding Criteria has been met, patient is okay to be discharged per the physician. Physician has gone in and evaluated the patient. Dressing dry and intact. No drainage noted. The patient denies nausea, numbness, tingling, weakness, shortness of breath, dizziness, or headache. Pain level 7/10. Vital signs within normal limits. Patient denied needing walked out by clinical staff and denied needing a wheelchair. Patient given discharge instructions and sent to transportation via ambulatory method. Patient left in good condition. Procedure to be performed: BILATERAL L4/L5, L5/S1 LUMBAR MEDIAL BRANCH BLOCK Patient was wheeled on stretcher from pre op bay to procedure room and assisted onto the procedure tablePatient s procedure was performed in an [facility] Procedure room. Pause completed at each level by provider to verify correct level and laterality placement Pressure was applied to patient s injection site(s) and bleeding was minimal. Patient had no complaint of shortness of breath, dizziness, headache, numbness, tingling, weakness or complications from procedure. Patient was assisted from the procedure table onto the stretcher and wheeled into a post op bay. Patient was advised a clinician will be to obtain another set of vitals. Time Out: 738 Confirmed patient name, date of , procedure site, laterality, and allergies Procedure Start: 741 Procedure End: 751 Radio Recorder's Name: Silvia Are you on a blood thinner: asa 81 If yes, is a hold required: n Last dose of blood thinner: n INR Result today: n Do you require a Lovenox bridge:n Are you a diabetic:n Are you/or could you be : n Are you taking Xanax for the procedure: n Are you currently on a steroid? n Are you currently on an antibiotic: n Have you had a COVID-19 vaccine in the last 14 days Or are you scheduled to receive one? n documented in this encounter [facility] 06-04-2023 Instructions Ashleigh Acosta LPN - 06/04/2023 7:46 AM EST PROCEDURE DISCHARGE INSTRUCTIONS 06/04/2023 Luis Angel Aguila 1955 Physician: Hector Ritchie MD Procedure: BILATERAL L4/L5, L5/S1 LUMBAR MEDIAL BRANCH BLOCK Post Procedure Instructions: If sedation not given, no driving for 3 hours after the procedure., Perform activities that typically make you have pain and monitor your pain level during these activities for the next 3-4 hours., Apply cold compresses to injection site if needed., If medically acceptable, take over the counter anti-inflammatories such as ibuprofen or Aleve if needed for post procedure discomfort., and No hot baths, hot tubs or hot compresses for 24 hours. If you have any of the following signs or symptoms, please call our office at Fever and/or chills Swelling and/or drainage from injection site New pain that is different than your normal pain (other than soreness at the site of the procedure) Stiff neck Shortness of breath Severe increase in pain Motor dysfunctions, such as difficulty walking, bowel or bladder dysfunction and/or incontinence Headache that is severe, light sensitive or develops when changing positions (positional headache) Nausea and/or vomiting accompanied by headache that started 24-48 hours after the procedure If you have any emergent concerns, please call 911 or go to your local emergency room. Please also contact our office to let us know you will be seeking emergency care and why. documented in this encounter [facility] 06-04-2023 History of Present illness Narrative [facility] Date: 06/04/2023 Patient name: Luis Angel Aguila Physician performing procedure: Hector Ritchie M.D., M.B.A. Diagnosis: (M47.816) Lumbar spondylosis (primary encounter diagnosis) Procedure: Medial Branch Block (Diagnostic only, NO STEROIDS) under fluoroscopic guidance BILATERAL SIDES at L4-5 and L5-S1 Injectate: A total of 4 ml volume was injected The injectate consisted of: 4 ml of 0.75% Bupivacaine, . Each site received equal volumes of this injectate. Comments: None Improvement after today's procedure: as per nursing report HPI: Luis Angel Aguila is an 68 year old MALE who presents today, in pain, for the procedure noted above. Review of Systems: Pertinent Positives: MSK: pain in the region being treated Neuro: weakness or numbness in the region being treated (unless otherwise noted) Skin: Negative (No itching) Eyes: Negative (No blurred or double vision) Respiratory: Negative (No Cough, [id number], Dyspnea on exertion, wheezing) Cardiovascular: Negative (No Chest Pain, Tightness, Pressure, Palpitations) Gastrointestinal: Negative (No Abdominal pain, Nausea, Vomiting, Constipation, Diarrhea) Genitourinary: Negative (No dysuria) Hematologic: Negative (No bleeding, bruising) OB: is Denied or Not Applicable Endocrine: Negative (No hot/cold intolerance) Psychiatric: Negative (No depression, anxiety or suicidal ideation) 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) S/P prostatectomy Tobacco use disorder PAST SURGICAL HISTORY Procedure Laterality Date ABDOMINAL SURGERY HX APPENDECTOMY COLONOSCOPY 12/12/2022 repeat 5 years FOOT RIGHT OP SURGERY Right FRACTURE SURGERY REMOVAL OF PROSTATE REPAIR ABDOMINAL HERNIA SHOULDER SURGERY HX Bilateral XR CERVICAL FUSION OR FAMILY HISTORY Problem Relation Age of Onset Lung Cancer Mother Dementia Father other (ETOH) Father Hypertension Brother Aneurysm Maternal Grandmother other (car accident) Maternal Grandfather other (car accident) Paternal Grandfather Social History Tobacco Use Smoking status: Every Day Packs/day: 1.00 Years: 55.00 Additional pack years: 0.00 Total pack years: 55.00 Types: Cigarettes Smokeless tobacco: Never Tobacco comments: Currently smoking 04/08 ppd 02/06/2023 Vaping Use Vaping Use: Never used Substance Use Topics Alcohol use: Yes Comment: occasionaly Drug use: Never Current Outpatient Medications on File Prior to Visit Medication Sig atorvastatin (LIPITOR) 40 mg tablet Take 1 tablet by mouth daily at bedtime. For cholesterol. lisinopril (ZESTRIL) 40 mg tablet Take 1 tablet by mouth once daily. pregabalin (LYRICA) 75 mg capsule Take one pill twice daily meloxicam (MOBIC) 15 mg tablet Take 1 tablet by mouth once daily. With food. tiotropium-olodaterol (STIOLTO RESPIMAT) 2.5-2.5 mcg/actuation Inhale 2 Puffs as instructed once daily. albuterol HFA (VENTOLIN HFA) 90 mcg/actuation inhaler Inhale 2 Puffs as instructed every 4 hours as needed for wheezing/shortness of breath. aspirin, enteric coated (ASPIRIN, ENTERIC COATED) 81 mg EC tablet Take 81 mg by mouth once daily. docusate sodium (STOOL SOFTENER) 100 mg capsule Take 100 mg by mouth twice daily. cholecalciferol (VITAMIN D-3) 50 mcg (2,000 unit) tablet Take 2,000 Units by mouth once daily. beta-carotene,A,-vits C,E/mins (OCUVITE ORAL) Take 1 tablet by mouth once daily. calcium carbonate (CALCIUM 600 ORAL) Take 1 tablet by mouth once daily. Multivitamin capsule Take 1 capsule by mouth once daily. gabapentin (NEURONTIN) 300 mg capsule Take 1 capsule by mouth two times a day for 30 days. (Patient taking differently: Take 300 mg by mouth two times a day. Discontinued and lyrica started) omeprazole (PRILOSEC) 40 mg capsule Take 1 capsule by mouth two times a day. No current facility-administered medications on file prior to visit. Objective Exam: Vitals: As per nursing documentation Constitutional: Normal Appearance, Oriented to Time, Place and Person Head: No lacerations, no external signs of trauma Eyes: Conjunctiva clear. No discharge from the eyes Cardiovascular: Appears well-perfused Pulmonary: Non-labored respirations Abdominal: Non-distended Skin: No visible rashes or ecchymosis Psychiatric: Mood appropriate for given condition Neurological: Gross movements are limited by pain, but otherwise unremarkable Data Reviewed: Nursing note and vitals reviewed. Additional imaging reviewed as appropriate Assessment and Plan: As noted above [place] protocol documentation / Pre-Procedure Checklist: Consent: Obtained in writing prior to procedure I had a nice discussion with the patient today about their current pain and the pathology that could be causing it We discussed different treatment options, including risks, benefits and alternatives. We agreed to proceed as previously discussed, or the plan was modified in accordance with the comments noted above Unless stated otherwise in the procedure note, the risks include but are not limited to infection, allergic reaction, increased pain, lack of therapeutic benefit, steroid reaction, nerve damage, paralysis, stroke, epidural hematoma, syncope, headache, respiratory or cardiac arrest, pneumothorax, and scar formation Once the plan was agreed upon, the patient gave written consent to proceed and was transported into the procedure room Surgical/Procedure pause or Time Out : Time Out was led by the physician in the procedure room, with the patient and all staff present and participating The following information was verified during the Time Out process: Patient name, patient date of , procedure site (marked), laterality, anticoagulants and allergies Procedure: The patient was prepped and draped in a sterile fashion in the prone position after informed consent was signed and all patient questions were answered including the risks, benefits, alternative treatment options, and prognosis. The risks are as mentioned above, with the exception of Pneumothorax. To block the L5 dorsal rami (when applicable), a spinal needle of the same dimensions as mentioned below was positioned at the junction of the superior articular process of the sacrum and the ala under biplanar fluoroscopic control. A 22 gauge, 5 inch spinal needle was inserted a few centimeters lateral to the pedicles of the remaining lumbar levels mentioned above and advanced ventral and medial through the muscles to the target point. Once the needle contacted periosteum at the superior-most medial edge of the transverse process, the C-arm was obliqued such that the axis of the lumbar facet joints could be fluoroscopically visualized, and the correct position of the needle confirmed. After contact with periosteum and negative aspirate for blood and CSF, correct placement without intravascular or epidural spread was confirmed by injecting 0.2cc of Omnipaque 300. A spot radiograph was obtained of this image. Next, a 0.5cc volume of the injectate noted above was placed. A needle was similarly directed to the other facet joint nerves mentioned above, with completion of the procedure at each level as described above. Please see the nursing note for exact times (time out, procedure start, procedure end). After careful removal of the needle, there was minimal bleeding. The injection site was covered with appropriate sterile dressing. The patient was noted to have tolerated the procedure well and was discharged after an appropriate period of post-procedure observation. The patient was instructed to contact us if there were any complications. The patient was advised to follow-up with the requesting physician within one to two weeks or as per their requested follow-up plan. Post procedure visit summary with written instructions was offered to the patient. Hector MARQUESA [facility] Review of Systems Constitutional: Positive for activity change. Negative for chills, fever and unexpected weight change. Gastrointestinal: Negative for bowel retention or incontinence Genitourinary: Negative for difficulty urinating. Negative for bladder retention or incontinence Musculoskeletal: Positive for arthralgias, back pain, gait problem, joint swelling, neck pain and neck stiffness. Negative for myalgias. Neurological: Positive for weakness, numbness and headaches. Psychiatric/Behavioral: Positive for sleep disturbance. Negative for dysphoric mood and suicidal ideas. The patient is not nervous/anxious. documented in this encounter [facility] 05-27-2023 History of Present illness Narrative Radiology Service Progress Note PATIENT NAME: Luis Angel Aguila DATE OF SERVICE: May 27, 2023 TIME: 9:01 AM PATIENT IDENTITY VERIFICATION COMPLETED USING TWO (2) IDENTIFIERS: Name and Date of confirmed by patient verbally. FALL SCREENING: Has the patient had 2 falls in the last year or 1 fall with injury or currently using an Ambulatory Assistive Device (Walker, Cane, Wheelchair, Crutches, etc.)? No PATIENT GENDER DATA: Male PATIENT RELEVANT IMPLANT DATA REVIEWED: Yes PATIENT PRESENTS WITH AN IMPLANTABLE OR ATTACHED W[employer] PERFORMANCE ENGINEER: No RADIOLOGY DEPARTMENT: MR; Exam(s) Completed: Spine: Lumbar spine PERIPHERAL IV DATA: Not applicable SIGNED BY: RT Deanna(R) May 27, 2023 9:01 AM documented in this encounter [facility] 05-23-2023 Instructions Cintia Martin PA-C - 05/23/2023 9:03 AM EST [facility] What is it? Facet joint and sacroiliac joint denervation (also called rhizotomy, ablation, neurotomy or neurolysis) uses radiofrequency energy to temporarily interrupt or destroy the nerve that carries pain signals from the facet (zygapophyseal) joint or sacroiliac joint. The nerve branches from the facet joints are called the medial branches and the nerve branches from the sacroiliac joints are called the lateral branches. Each facet joint receives input from the two medial branches and each sacroiliac joint receives input from four lateral branches. Prior to performing a radiofrequency procedure, an injection of short-acting anesthetic (numbing medication) is injected to achieve short-term pain relief. If significant short-term pain relief is seen with the anesthetic, then a patient may be a candidate for the radiofrequency denervation procedure. Who should get radiofrequency denervation? The procedures are typically ordered for patients who have gotten significant short-term pain relief from facet joint medial branch injections and sacroiliac joint injections but have failed to get long-term improvement from these injections. How long does the injection take? Typically the radiofrequency ablation takes about one hour to perform, but expect to spend 15-20 minutes at our facility due to preparation time before the procedure and evaluation after the procedure. What are the risks of radiofrequency ablation? With all injections there is a risk of infection, bleeding, temporary increase in pain and injury to the structures along the course of the needle or injury to other nerve branches by the radiofrequency probe. By using sterile equipment and technique we minimize the Risk of infection. The risk of bleeding is minimized by discontinuation of blood thinners (this typically requires approval from the prescribing doctor) and non-steroidal anti-inflammatory medications (except Celebrex). By using X-ray guidance (fluoroscopy) we minimize the risk of injury to the structure along the course of the needle. The sensory and motor stimulation reduce the risk of injury to other nerves. Who should NOT have this injection? If you have an active infection, poorly controlled hypertension, diabetes, congestive heart failure or are unable to stop taking blood thinners, you may not be a candidate for these types of injections. documented in this encounter [facility] 05-23-2023 History of Present illness Narrative VIRTUAL VISIT PROGRESS NOTE This is a virtual visit using [employer] Video Visit. It required patient-provider interaction for the medical decision making as documented below. Pain score 2/10. Chief Complaint/Reason: Low back pain Interval History: CMS Checklist, Response to Fluoroscopically-guided, Diagnostic (non-steroid) Facet Joint Blockade (aka Medial Branch Block ): Medial Branch Block (Diagnostic only, NO STEROIDS) under fluoroscopic guidance BILATERAL SIDES at L4-5 and L5-S1 Date of Block #1: 03/20/2024 Response to block #1: Pain response post procedure: 2/10 Pain response pre procedure: 8/10 % overall improvement: 80% Duration of improvement: 1-2 days (Agent utilized: Bupivacaine 0.75%) Functional Metric Post-Injection (Oswestry Questionnaire at 2 hours post-injection): 6 Baseline (Pre-Injection) Score: 35 % overall functional improvement: 80% Positive Diagnostic Response? yes Pain Intensity 1 - The pain is very mild at the moment Personal Care (Washing/Dressing) 0 - I can look after myself normally without causing extra pain Lifting 3 - Pain prevents me from lifting heavy weights but I can manage light/medium weights if conveniently positioned (e.g. on a table) Walking 1 - Pain prevents me from walking more than 1 mile Sitting 0 - I can sit in any chair as long as I like Standing 1 - I can stand as long as I want but it gives me extra pain Sleeping 0 - Pain does not prevent me from sleeping well Sex Life 0 - My sex life is normal and causes no pain Social Life 0 - My social life is normal and causes no extra pain Traveling 0 - I can travel anywhere without extra pain Total Score 6 Interpretation 0% - 20% - minimal disability Review of Systems: Reviewed on today's date. Pertinent Positives: MSK - pain in the region being treated Neuro: No weakness or numbness in the region being treated Skin: Negative (No itching) Eyes: Negative (No blurred or double vision) Respiratory: Negative (No Cough, [id number]-cuhodn, Dyspnea on exertion, wheezing) Cardiovascular: Negative (No Chest Pain, Tightness, Pressure, Palpitations) Gastrointestinal: Negative (No Abdominal pain, Nausea, Vomiting, Constipation, Diarrhea) Genitourinary: Negative (No dysuria) Hematologic: Negative (No bleeding, bruising) Endocrine: Negative (No hot/cold intolerance) Psychiatric: Negative (No change in mood/affect) PDMP website checked and validated on today's date by Cintia Martin PA-C. No suspicious activity was identified. REVIEWED IMAGING: None new to review PHYSICAL EXAMINATION: There were no vitals taken for this visit. VIDEO EXAM: (if completed, performed via video enabled technology) GENERAL: alert and appropriate, in no distress, well-hydrated, well nourished, and happy, smiling, interactive SKIN: no rash noted HEAD: normocephalic, no abnormality or lesion noted EYES: no injection and visual acuity is grossly normal EARS: hearing grossly normal NOSE: external nose normal without rhinorrhea OROPHARYNX: moist mucus membranes NECK: full ROM, no cervical LNs noted RESPIRATORY: breathing non-labored CHEST: equal chest rise with normal respiratory effort EXTREMITIES: Gross movements intact NEUROLOGIC: no obvious deficit Current Medications, Past Medical History, Past Surgical History, Family History, Social History and Review of Systems: On today's date, noted above, I have confirmed and edited as necessary, the PFSH and ROS obtained. ASSESSMENT: (M47.816) Lumbar spondylosis (primary encounter diagnosis) (M16.0) Primary osteoarthritis of both hips PLAN: Continue current medications-no refill needed on the Lyrica Requested Prescriptions No prescriptions requested or ordered in this encounter Follow-up: Keep second round of MBBs as scheduled Cintia Martin PA-C ([place]) [facility] I spent a total of 31 minutes on the date of the service which included preparing to see the patient, [id number] patient care, completing clinical documentation, obtaining and/or reviewing separately obtained history, counseling and educating the patient/family/caregiver, and ordering medications, tests, or procedures. Patient Instructions [facility] What is it? Facet joint and sacroiliac joint denervation (also called rhizotomy, ablation, neurotomy or neurolysis) uses radiofrequency energy to temporarily interrupt or destroy the nerve that carries pain signals from the facet (zygapophyseal) joint or sacroiliac joint. The nerve branches from the facet joints are called the medial branches and the nerve branches from the sacroiliac joints are called the lateral branches. Each facet joint receives input from the two medial branches and each sacroiliac joint receives input from four lateral branches. Prior to performing a radiofrequency procedure, an injection of short-acting anesthetic (numbing medication) is injected to achieve short-term pain relief. If significant short-term pain relief is seen with the anesthetic, then a patient may be a candidate for the radiofrequency denervation procedure. Who should get radiofrequency denervation? The procedures are typically ordered for patients who have gotten significant short-term pain relief from facet joint medial branch injections and sacroiliac joint injections but have failed to get long-term improvement from these injections. How long does the injection take? Typically the radiofrequency ablation takes about one hour to perform, but expect to spend 15-20 minutes at our facility due to preparation time before the procedure and evaluation after the procedure. What are the risks of radiofrequency ablation? With all injections there is a risk of infection, bleeding, temporary increase in pain and injury to the structures along the course of the needle or injury to other nerve branches by the radiofrequency probe. By using sterile equipment and technique we minimize the Risk of infection. The risk of bleeding is minimized by discontinuation of blood thinners (this typically requires approval from the prescribing doctor) and non-steroidal anti-inflammatory medications (except Celebrex). By using X-ray guidance (fluoroscopy) we minimize the risk of injury to the structure along the course of the needle. The sensory and motor stimulation reduce the risk of injury to other nerves. Who should NOT have this injection? If you have an active infection, poorly controlled hypertension, diabetes, congestive heart failure or are unable to stop taking blood thinners, you may not be a candidate for these types of injections. documented in this encounter [facility] 05-21-2023 Instructions Ashleigh Acosta LPN - 05/21/2023 8:08 AM EST PROCEDURE DISCHARGE INSTRUCTIONS 05/21/2023 Luis Angel Aguila 1955 Physician: Hector Ritchie MD Procedure: Facet Joint Injection/Medial Branch Block Post Procedure Instructions: If sedation not given, no driving for 3 hours after the procedure., Perform activities that typically make you have pain and monitor your pain level during these activities for the next 3-4 hours., Apply cold compresses to injection site if needed., If medically acceptable, take over the counter anti-inflammatories such as ibuprofen or Aleve if needed for post procedure discomfort., No hot baths, hot tubs or hot compresses for 24 hours., and Increased pain the day after the procedure may occur. If you have any of the following signs or symptoms, please call our office at Fever and/or chills Swelling and/or drainage from injection site New pain that is different than your normal pain (other than soreness at the site of the procedure) Stiff neck Shortness of breath Severe increase in pain Motor dysfunctions, such as difficulty walking, bowel or bladder dysfunction and/or incontinence Headache that is severe, light sensitive or develops when changing positions (positional headache) Nausea and/or vomiting accompanied by headache that started 24-48 hours after the procedure If you have any emergent concerns, please call 911 or go to your local emergency room. Please also contact our office to let us know you will be seeking emergency care and why. documented in this encounter [facility] 05-21-2023 Nurse Note Order has been placed in the patient's chart with the following parameters for discharge from the physician: Patient is alert and oriented Vitals: Diastolic/Systolic +/- 20mmHg Respirations: 12-18 Pulse: 60-100 SpO2 is greater than or equal to 90% Patient has no nausea or vomiting Patient has no dizziness Pain level is +/- 2 from initial evaluation Dressing, dry and intact with no evidence of bleeding Criteria has been met, patient is okay to be discharged per the physician. Physician has gone in and evaluated the patient. Dressing dry and intact. No drainage noted. The patient denies nausea, numbness, tingling, weakness, shortness of breath, dizziness, or headache. Pain level 7/10. Vital signs within normal limits. Patient denied needing walked out by clinical staff and denied needing a wheelchair. Patient given discharge instructions and sent to transportation via ambulatory method. Patient left in good condition. Procedure to be performed: BILATERAL L4/L5, L5/S1 LUMBAR MEDIAL BRANCH BLOCK Patient was walked from exam room to procedure room and assisted onto the procedure tablePatient s procedure was performed in an [facility] Procedure room. Pause completed at each level by provider to verify correct level and laterality placement Pressure was applied to patient s injection site(s) and bleeding was minimal. Patient had no complaint of shortness of breath, dizziness, headache, numbness, tingling, weakness or complications from procedure. Patient was assisted from the procedure table and walked back to exam room. Patient was advised a clinician will be to obtain another set of vitals. Time Out: 748 Confirmed patient name, date of , procedure site, laterality, and allergies Procedure Start: 751 Procedure End: 800 Radio Recorder's Name: NICO Are you on a blood thinner: ASA 81 If yes, is a hold required: N Last dose of blood thinner: N INR Result today: N Do you require a Lovenox bridge:N Are you a diabetic:N Are you/or could you be : N Are you taking Xanax for the procedure: N Are you currently on a steroid? N Are you currently on an antibiotic: N Have you had a COVID-19 vaccine in the last 14 days Or are you scheduled to receive one? N documented in this encounter [facility] 05-21-2023 History of Present illness Narrative [facility] Date: 05/21/2023 Patient name: Luis Angel Aguila Physician performing procedure: Hector Ritchie M.D., M.B.A. Diagnosis: (M47.816) Lumbar spondylosis (primary encounter diagnosis) Procedure: Medial Branch Block (Diagnostic only, NO STEROIDS) under fluoroscopic guidance BILATERAL SIDES at L4-5 and L5-S1 Injectate: A total of 4 ml volume was injected The injectate consisted of: 4 ml of 0.75% Bupivacaine, . Each site received equal volumes of this injectate. Comments: None Improvement after today's procedure: as per nursing report HPI: Luis Angel Aguila is an 68 year old MALE who presents today, in pain, for the procedure noted above. Review of Systems: Pertinent Positives: MSK: pain in the region being treated Neuro: weakness or numbness in the region being treated (unless otherwise noted) Skin: Negative (No itching) Eyes: Negative (No blurred or double vision) Respiratory: Negative (No Cough, [id number], Dyspnea on exertion, wheezing) Cardiovascular: Negative (No Chest Pain, Tightness, Pressure, Palpitations) Gastrointestinal: Negative (No Abdominal pain, Nausea, Vomiting, Constipation, Diarrhea) Genitourinary: Negative (No dysuria) Hematologic: Negative (No bleeding, bruising) OB: is Denied or Not Applicable Endocrine: Negative (No hot/cold intolerance) Psychiatric: Negative (No depression, anxiety or suicidal ideation) 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) S/P prostatectomy Tobacco use disorder PAST SURGICAL HISTORY Procedure Laterality Date ABDOMINAL SURGERY HX APPENDECTOMY COLONOSCOPY 12/12/2022 repeat 5 years FOOT RIGHT OP SURGERY Right FRACTURE SURGERY REMOVAL OF PROSTATE REPAIR ABDOMINAL HERNIA SHOULDER SURGERY HX Bilateral XR CERVICAL FUSION OR FAMILY HISTORY Problem Relation Age of Onset Lung Cancer Mother Dementia Father other (ETOH) Father Hypertension Brother Aneurysm Maternal Grandmother other (car accident) Maternal Grandfather other (car accident) Paternal Grandfather Social History Tobacco Use Smoking status: Every Day Packs/day: 1.00 Years: 55.00 Additional pack years: 0.00 Total pack years: 55.00 Types: Cigarettes Smokeless tobacco: Never Tobacco comments: Currently smoking / ppd 02/06/2023 Vaping Use Vaping Use: Never used Substance Use Topics Alcohol use: Yes Comment: occasionaly Drug use: Never Current Outpatient Medications on File Prior to Visit Medication Sig atorvastatin (LIPITOR) 40 mg tablet Take 1 tablet by mouth daily at bedtime. For cholesterol. lisinopril (ZESTRIL) 40 mg tablet Take 1 tablet by mouth once daily. pregabalin (LYRICA) 75 mg capsule Take one pill twice daily meloxicam (MOBIC) 15 mg tablet Take 1 tablet by mouth once daily. With food. omeprazole (PRILOSEC) 40 mg capsule Take 1 capsule by mouth two times a day. tiotropium-olodaterol (STIOLTO RESPIMAT) 2.5-2.5 mcg/actuation Inhale 2 Puffs as instructed once daily. albuterol HFA (VENTOLIN HFA) 90 mcg/actuation inhaler Inhale 2 Puffs as instructed every 4 hours as needed for wheezing/shortness of breath. aspirin, enteric coated (ASPIRIN, ENTERIC COATED) 81 mg EC tablet Take 81 mg by mouth once daily. docusate sodium (STOOL SOFTENER) 100 mg capsule Take 100 mg by mouth twice daily. cholecalciferol (VITAMIN D-3) 50 mcg (2,000 unit) tablet Take 2,000 Units by mouth once daily. beta-carotene,A,-vits C,E/mins (OCUVITE ORAL) Take 1 tablet by mouth once daily. calcium carbonate (CALCIUM 600 ORAL) Take 1 tablet by mouth once daily. Multivitamin capsule Take 1 capsule by mouth once daily. gabapentin (NEURONTIN) 300 mg capsule Take 1 capsule by mouth two times a day for 30 days. (Patient taking differently: Take 300 mg by mouth two times a day. Discontinued and lyrica started) No current facility-administered medications on file prior to visit. Objective Exam: Vitals: As per nursing documentation Constitutional: Normal Appearance, Oriented to Time, Place and Person Head: No lacerations, no external signs of trauma Eyes: Conjunctiva clear. No discharge from the eyes Cardiovascular: Appears well-perfused Pulmonary: Non-labored respirations Abdominal: Non-distended Skin: No visible rashes or ecchymosis Psychiatric: Mood appropriate for given condition Neurological: Gross movements are limited by pain, but otherwise unremarkable Data Reviewed: Nursing note and vitals reviewed. Additional imaging reviewed as appropriate Assessment and Plan: As noted above [place] protocol documentation / Pre-Procedure Checklist: Consent: Obtained in writing prior to procedure I had a nice discussion with the patient today about their current pain and the pathology that could be causing it We discussed different treatment options, including risks, benefits and alternatives. We agreed to proceed as previously discussed, or the plan was modified in accordance with the comments noted above Unless stated otherwise in the procedure note, the risks include but are not limited to infection, allergic reaction, increased pain, lack of therapeutic benefit, steroid reaction, nerve damage, paralysis, stroke, epidural hematoma, syncope, headache, respiratory or cardiac arrest, pneumothorax, and scar formation Once the plan was agreed upon, the patient gave written consent to proceed and was transported into the procedure room Surgical/Procedure pause or Time Out : Time Out was led by the physician in the procedure room, with the patient and all staff present and participating The following information was verified during the Time Out process: Patient name, patient date of , procedure site (marked), laterality, anticoagulants and allergies Procedure: The patient was prepped and draped in a sterile fashion in the prone position after informed consent was signed and all patient questions were answered including the risks, benefits, alternative treatment options, and prognosis. The risks are as mentioned above, with the exception of Pneumothorax. To block the L5 dorsal rami, a spinal needle of the same dimensions as mentioned below was positioned at the junction of the superior articular process of the sacrum and the ala under biplanar fluoroscopic control. A 22 gauge, 5 inch spinal needle was inserted a few centimeters lateral to the pedicles of the remaining lumbar levels mentioned above and advanced ventral and medial through the muscles to the target point. Once the needle contacted periosteum at the superior-most medial edge of the transverse process, the C-arm was obliqued such that the axis of the lumbar facet joints could be fluoroscopically visualized, and the correct position of the needle confirmed. After contact with periosteum and negative aspirate for blood and CSF, correct placement without intravascular or epidural spread was confirmed by injecting 0.2cc of Omnipaque 300. A spot radiograph was obtained of this image. Next, a 0.5cc volume of the injectate noted above was placed. A needle was similarly directed to the other facet joint nerves mentioned above, with completion of the procedure at each level as described above. Please see the nursing note for exact times (time out, procedure start, procedure end). After careful removal of the needle, there was minimal bleeding. The injection site was covered with appropriate sterile dressing. The patient was noted to have tolerated the procedure well and was discharged after an appropriate period of post-procedure observation. The patient was instructed to contact us if there were any complications. The patient was advised to follow-up with the requesting physician within one to two weeks or as per their requested follow-up plan. Post procedure visit summary with written instructions was offered to the patient. Hector Ritchie MD, MBA Pain Management [facility] Review of Systems Constitutional: Positive for activity change and unexpected weight change. Negative for chills and fever. Gastrointestinal: Negative for bowel retention or incontinence Genitourinary: Negative for difficulty urinating. Negative for bladder retention or incontinence Musculoskeletal: Positive for arthralgias, back pain, gait problem, joint swelling, myalgias, neck pain and neck stiffness. Neurological: Positive for weakness, numbness and headaches. Psychiatric/Behavioral: Positive for sleep disturbance. Negative for dysphoric mood and suicidal ideas. The patient is not nervous/anxious. documented in this encounter [facility] 03-26-2023 History of Present illness Narrative POPULATION HEALTH NAVIGATION OUTREACH Action/FYI [place] Support: Called pt to schedule an appt in Pain Management. Phone disconnected Patient Identified by Name and : NO Outreach Outcome/Action Unable to reach patient: Phone number not valid / voicemail full Did you use a PCP flex slot to schedule this appointment? N/A Reason for Outreach Care Gap or Scheduling/Wellness visits Payer: Payor: MEDICARE / Plan: MEDICARE A AND B / Product Type: Medicare / Care Gap Reviewed:: Specialty Scheduling Reminder: Reminder note to check Health Maintenance for items below Health Maintenance items due: Abdominal Aortic Aneurysm Screening Never done Lung Cancer Screening Never done Advance Directive Discussion Never done Navigation Signature: Joanie Lugo March 26, 2023 10:46 AM documented in this encounter [facility] 03-18-2023 Miscellaneous Notes Physicians result form faxed to [phone]. Copy made and sent to scanning. Handelyssap david along with original physician form placed in medical records for sampler pickup. Kat telephoned and made aware. Will be in to sampler pickup. Ahslie Osborn LPN Handicap letter in my out box. Please take to medical records and let him know he can sampler pickup. Also his physician result form is completed. [place] fax to [phone]. Please make copy for our records. Naima Sinha APRN.JAMES documented in this encounter [facility] 03-17-2023 History of Present illness Narrative Radiology Service Progress Note PATIENT NAME: Luis Angel Aguila DATE OF SERVICE: March 17, 2023 TIME: 12:52 PM PATIENT IDENTITY VERIFICATION COMPLETED USING TWO (2) IDENTIFIERS: Name and Date of confirmed by patient verbally. FALL SCREENING: Has the patient had 2 falls in the last year or 1 fall with injury or currently using an Ambulatory Assistive Device (Walker, Cane, Wheelchair, Crutches, etc.)? No PATIENT GENDER DATA: Male PATIENT RELEVANT IMPLANT DATA REVIEWED: Not Applicable RADIOLOGY DEPARTMENT: General X-ray: Exam(s) Completed: Spine X-Ray(s): Lumbar AP / LAT / L5-S1 Pelvis X-Ray: Pelvis with Hip Bilateral PERIPHERAL IV DATA: Not applicable SIGNED BY: RT Anika(R) March 17, 2023 12:52 PM documented in this encounter [facility] 03-17-2023 History of Present illness Narrative 03/17/2023 Patient presents with: Pain: Lower back and bilateral hip pain SUBJECTIVE: This is a 68 year old that is here today for Above Complaints. Reports hx of chronic back and hip pain for a couple of years. Worsening over the last couple of months. Described as aching. Mild relief with meloxicam and gabapentin. Aggravated with walking. He reports was told he has DDD and bulging discus but could not have surgery unless he stopped smoking and he reports he will not stop smoking. Would like to decrease gabapentin due to some brain fog. Denies hx of back injury/surgery, saddle anaesthesia, extremity weakness, urinary/bowel incontinence or inability. Wants to see pain management 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) S/P prostatectomy Tobacco use disorder ALLERGIES Morphine and Prednisone MEDICATIONS Current Outpatient Medications Medication Sig meloxicam (MOBIC) 15 mg tablet Take 1 tablet by mouth once daily. With food. gabapentin (NEURONTIN) 300 mg capsule Take 1 capsule by mouth three times a day for 90 days. (Patient taking differently: Take 600 mg by mouth two times a day.) omeprazole (PRILOSEC) 40 mg capsule Take 1 capsule by mouth two times a day. tiotropium-olodaterol (STIOLTO RESPIMAT) 2.5-2.5 mcg/actuation Inhale 2 Puffs as instructed once daily. (Patient not taking: Reported on 03/14/2023) albuterol HFA (VENTOLIN HFA) 90 mcg/actuation inhaler Inhale 2 Puffs as instructed every 4 hours as needed for wheezing/shortness of breath. simvastatin (ZOCOR) 40 mg tablet Take 40 mg by mouth daily at bedtime. lisinopril (ZESTRIL) 20 mg tablet Take 20 mg by mouth once daily. hydroCHLOROthiazide 25 mg tablet Take 25 mg by mouth once daily. aspirin, enteric coated (ASPIRIN, ENTERIC COATED) 81 mg EC tablet Take 81 mg by mouth once daily. docusate sodium (STOOL SOFTENER) 100 mg capsule Take 100 mg by mouth twice daily. cholecalciferol (VITAMIN D-3) 50 mcg (2,000 unit) tablet Take 2,000 Units by mouth once daily. beta-carotene,A,-vits C,E/mins (OCUVITE ORAL) Take 1 tablet by mouth once daily. calcium carbonate (CALCIUM 600 ORAL) Take 1 tablet by mouth once daily. Multivitamin capsule Take 1 capsule by mouth once daily. No current facility-administered medications for this visit. Medications and allergies reviewed by this provider. SOCIAL HISTORY Social History Tobacco Use Smoking status: Every Day Packs/day: 1.00 Years: 55.00 Additional pack years: 0.00 Total pack years: 55.00 Types: Cigarettes Smokeless tobacco: Never Tobacco comments: Currently smoking 04/08 ppd 02/06/2023 Substance Use Topics Alcohol use: Yes Comment: occasionaly Drug use: Never REVIEW OF SYSTEMS All other reviewed and negative other than HPI. OBJECTIVE: BP 108/76 Pulse 71 Resp 18 Wt 82.9 kg (182 lb 12.8 oz) SpO2 95% BMI 26.47 kg/m . Vital signs reviewed by this provider. APPEARANCE Well appearing, alert, in no acute distress, well-hydrated, well nourished. EYES conjunctiva and sclera normal. BACK: No obvious deformity, rashes or swelling. Limited ROM due to reported discomfort. + SLR. Mild TTP across lumbar spine EXTREMITIES Extremities normal, No deformities, No skin discoloration, and No edema NEURO Reflexes symmetrical, Normal gait, No involuntary motions., and negative findings: muscle tone normal, muscle strength normal, reflexes normal and symmetric, plantar response downgoing bilaterally SKIN Skin color, texture, turgor normal, no suspicious rashes or lesions to exposed skin HIPS: No obvious deformity. Decreased ROM. Reports discomfort with all hip ROM. No clunking Abdominal Aortic Aneurysm Screening Never done Lung Cancer Screening Never done Advance Directive Discussion Never done Influenza Vaccine(1) due on 10/05/2023 Shingrix Vaccine(1 of 2) due on 10/26/2023 Pneumococcal Vaccine: 65+(1 - PCV) due on 10/26/2023 DTaP,Tdap,Td Vaccine(1 - Tdap) due on 02/01/2024 RSV Vaccine(1 - 1-dose 60+ series) due on 02/01/2024 Hepatitis C Screening due on 02/01/2024 Covid-19 Vaccine( season) due on 02/01/2024 Annual PCP Team Chronic Disease Visit due on 03/17/2024 BP Controlled (<130/80) due on 03/17/2024 Diabetes Screening due on 03/10/2026 Lipid Screening due on 12/13/2027 Colorectal Cancer Screening due on 12/13/2027 Prostate Cancer Screening Discussion due on 03/10/2028 Alpha-1 Antitrypsin Deficiency Screening Completed Spirometry Completed Depression Assessment Completed HPV Vaccine Aged Out ASSESSMENT/PLAN: 1. Bilateral hip pain - ICD9: 719.45, ICD10: M25.551, M25.552 (primary diagnosis) - possible referred from back vs arthritis - no red flag symptoms or exam findings - red flag symptoms discussed, verbalizes understanding - declines PT - CONSULT TO PAIN MGT - XR HIP BILATERAL 5V PEL/AP/LAT EACH HIP -may use heat for 15 minutes at a time - follow-up as needed to ER with red flag symptoms 2. Chronic bilateral low back pain with bilateral sciatica - ICD9: 724.2, 724.3, 338.29, ICD10: M54.42, M54.41, G89.29 - can decrease gabapentin to 300 mg BID - no red flag symptoms or exam findings - red flag symptoms discussed, verbalizes understanding - continue medications, may use heat for 15 minutes at a time - GABAPENTIN 300 MG CAPSULE - CONSULT TO PAIN MGT - XR LUMBAR GENERAL 3V AP/LAT/L5-S1 - follow-up as needed to ER with red flag symptoms Naima Podlogar, HEAD START DIRECTOR.TOOL GRINDER SET UP OPERATOR GEAR Prescription instructions reviewed with patient as applicable. Patient advised if symptoms do not improve or if symptoms worsen sooner, to contact their primary care physician. Potential red flag symptoms discussed with the patient. Reviewed appropriate action plan to take if red flag symptoms occur. Patient agreeable to treatment plan. I spent a total of 30 minutes on the date of the service which included preparing to see the patient, [id number] patient care, completing clinical documentation, obtaining and/or reviewing separately obtained history, performing a medically appropriate examination, counseling and educating the patient/family/caregiver, and ordering medications, tests, or procedures. documented in this encounter [facility] 03-14-2023 History of Present illness Narrative Oncologic problem(s): 1) Castrate sensitive prostate cancer. HPI: The patient is a 67-year-old male with past medical history significant for hyperlipidemia, hypertension, moderate COPD, GERD, previous cervical spine surgery, chronic low back pain and prostate cancer. Developed gross hematuria. PSA 50s. RP with penile implant. Bladder tear about a month later. PET--recurrence in prostate bed. 06/2021 4 weeks RT in [place] with GnRH agonist treatment (Lupron). Stopped due to side effects--Severe diarrhea and n/v. PSA undetectable 06/2022. Presumably from Lupron. CT A/P 11/18/2022: IMPRESSION: 1. Postoperative ileus versus changes of early small bowel obstruction within the right pelvis as discussed above. Short-term follow-up suggested. 2. Changes of recent prostatectomy and penile implant. There is a 6.0 x 2.7 x 9.5 cm nonencapsulated postoperative fluid collection within the right lower quadrant subcutaneous fat adjacent to the penile pump. 3. Mild free fluid. 4. Sacral insufficiency fractures. Medically managed for SBO. Presents for ongoing oncologic management. Interim history: No symptoms of LUTS. No change in chronic LBP. 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) S/P prostatectomy Tobacco use disorder PAST SURGICAL HISTORY Procedure Laterality Date ABDOMINAL SURGERY HX APPENDECTOMY COLONOSCOPY 12/12/2022 repeat 5 years FOOT RIGHT OP SURGERY Right FRACTURE SURGERY REMOVAL OF PROSTATE REPAIR ABDOMINAL HERNIA SHOULDER SURGERY HX Bilateral XR CERVICAL FUSION OR ALLERGIES Allergen Reactions Morphine Rash, Itching Prednisone Mental Status Change Current Outpatient Medications Medication Sig meloxicam (MOBIC) 15 mg tablet Take 1 tablet by mouth once daily. With food. gabapentin (NEURONTIN) 300 mg capsule Take 1 capsule by mouth three times a day for 90 days. (Patient taking differently: Take 600 mg by mouth two times a day.) omeprazole (PRILOSEC) 40 mg capsule Take 1 capsule by mouth two times a day. albuterol HFA (VENTOLIN HFA) 90 mcg/actuation inhaler Inhale 2 Puffs as instructed every 4 hours as needed for wheezing/shortness of breath. simvastatin (ZOCOR) 40 mg tablet Take 40 mg by mouth daily at bedtime. lisinopril (ZESTRIL) 20 mg tablet Take 20 mg by mouth once daily. hydroCHLOROthiazide 25 mg tablet Take 25 mg by mouth once daily. aspirin, enteric coated (ASPIRIN, ENTERIC COATED) 81 mg EC tablet Take 81 mg by mouth once daily. docusate sodium (STOOL SOFTENER) 100 mg capsule Take 100 mg by mouth twice daily. cholecalciferol (VITAMIN D-3) 50 mcg (2,000 unit) tablet Take 2,000 Units by mouth once daily. beta-carotene,A,-vits C,E/mins (OCUVITE ORAL) Take 1 tablet by mouth once daily. calcium carbonate (CALCIUM 600 ORAL) Take 1 tablet by mouth once daily. Multivitamin capsule Take 1 capsule by mouth once daily. omeprazole (PRILOSEC) 40 mg capsule Take 1 capsule by mouth two times a day. tiotropium-olodaterol (STIOLTO RESPIMAT) 2.5-2.5 mcg/actuation Inhale 2 Puffs as instructed once daily. (Patient not taking: Reported on 03/14/2023) No current facility-administered medications for this visit. Social History Tobacco Use Smoking status: Every Day Packs/day: 1.00 Years: 55.00 Additional pack years: 0.00 Total pack years: 55.00 Types: Cigarettes Smokeless tobacco: Never Tobacco comments: Currently smoking 04/08 ppd 02/06/2023 Substance Use Topics Alcohol use: Yes Comment: occasionaly Drug use: Never Family History Problem Relation Age of Onset Lung Cancer Mother Dementia Father other (ETOH) Father Hypertension Brother Aneurysm Maternal Grandmother other (car accident) Maternal Grandfather other (car accident) Paternal Grandfather ROS: Constitutional: No fever. No drenching night sweats. Normal appetite. No unexplained weight loss. No significant fatigue. Neuro: No recent CORTEZ, vertigo, dizziness or imbalance. HEENT: No recent change in voice, vision or hearing. Resp: No cough, wheeze of hemoptysis. No shortness of breath at rest. ANDERSON--can't climb full set of stairs. CVS: No exertional chest pain, PND or orthopnea. No extremity swelling/edema. No symptoms of claudication. No painful or tender varicose veins. GI: No dysgeusia. No symptoms of stomatitis. No dysphagia or odynophagia. No reflux, n/v, change in bowel habits. No abdominal pain, bloating or distension. No black or bloody stools. : See HPI. Endo: No hot flashes. No polyuria or polydipsia. No heat or cold intolerance. Musculoskeletal: Chronic LBP. Derm: No current rash. No history of jaundice. No diffuse pruritis. Heme: No unusual bleeding and unexplained bruising. Psych: Normal mood. PHYSICAL EXAM: Vitals: Pulse 100, temperature 36.2 C (97.2 F), weight 82.6 kg (182 lb). Well-appearing and in no acute distress. EYES: Sclerae are anicteric bilaterally. LYMPHATIC: There is no palpable cervical, supraclavicula adenopathy. RESPIRATORY: Inspiratory breath sounds are of normal intensity in all arana. No rales, wheezes or rhonchi. CARDIOVASCULAR: Rhythm is regular. ABDOMEN: The abdomen is nondistended. No splenomegaly or hepatomegaly. No tenderness. Extremities: No swelling or edema. SKIN: No jaundice. MUSCULOSKELETAL: No muscle wasting. ASSESSMENT/PLAN: (C61, C77.2) 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) (primary encounter diagnosis) Assessment: -The patient is a 67-year-old male with past medical history as outlined above. Diagnosed with prostate cancer after developing gross hematuria. Underwent RP in [place]. Shortly thereafter he was started on ADT and radiation. Was not able to complete therapy secondary to severe diarrhea, nausea and vomiting. Has been receiving intermittent ADT since. He gets significant hot flashes and mood swings with ADT. -Most recent Lupron 6 months ago. -PSA undetectable 09/2022. 0.23 ng/mL 12/13/2022. -Reviewed Dr. Rahman's recommendations with him: Continue to monitor PSA every 3 months. Once PSADT <6 months, start intermittent Lupron. Once he develops mCRPC, Provenge vs. Pluvicto would be indicated at that time, pending data from PSMAfore trial, which will be presented at the [employer] Annual Congress in 01/2023. -Again educated him on the importance of addressing modifiable cardiovascular risk factors particularly since he will be undergoing intermittent testosterone suppression. He does not appear to be psychologically motivated to quit smoking at this time although he has cut back. -PSA doubling time based on measurements from December and earlier this month is 2.9 months. -Discussed indication to resume ADT. Plan: -Lupron today. -PSA then OV in 3 months. -Follow-up with Dr. Cota for management of hypercholesterolemia and hypertension. Portions of this documentation were copied and pasted from previous office visit notes in order to provide a cohesive continuity of the history. The note has been reviewed and edited and updated as necessary. I spent a total of 20 minutes on the date of the service which included preparing to see the patient, [id number] patient care, completing clinical documentation, obtaining and/or reviewing separately obtained history, performing a medically appropriate examination, counseling and educating the patient/family/caregiver, ordering medications, tests, or procedures, communicating with other HCPs (not separately reported), and communicating results to the patient/family/caregiver. Monica Jung DO Est. Pt, discuss recent lab results. Vivi Galarza LPN documented in this encounter [facility] 03-05-2023 Miscellaneous Notes Patient phones requesting refills as follows: Requested Prescriptions Pending Prescriptions Disp Refills meloxicam (MOBIC) 15 mg tablet 90 tablet 1 Sig: Take 1 tablet by mouth once daily. With food. DIANA 01/31/23 NOV 05/05/23 Please review and advise. Rudy Stearns documented in this encounter [facility] 03-05-2023 Miscellaneous Notes Patient phones requesting refills as follows: Requested Prescriptions Pending Prescriptions Disp Refills gabapentin (NEURONTIN) 300 mg capsule 270 capsule 0 Sig: Take 1 capsule by mouth three times a day for 90 days. DIANA 01/31/23 NOV 05/05/23 Last rx written 03/03/23 #270 with 0 refills. Pt is not due for refill. message to pt advising of the same. Please review and advise. Rudy Stearns documented in this encounter [facility] 03-03-2023 Miscellaneous Notes [facility] website checked and validated. All prescriptions have been APPROPRIATELY filled. No suspicious activity was identified. 03/03/2023 by Erik Coat MD Pended refill for 30 days if provider agreeable. Patient has been identified by name and date of : Yes Patient phones for refill(s): Requested Prescriptions Pending Prescriptions Disp Refills gabapentin (NEURONTIN) 300 mg capsule 90 capsule 0 Sig: Take 1 capsule by mouth three times a day for 30 days. omeprazole (PRILOSEC) 40 mg capsule 60 capsule 0 Sig: Take 1 capsule by mouth two times a day. Date of last office visit in primary care: 01/31/2023 Date of next office visit in primary care: 05/05/2023 Last 2 Encounter Wt Readings: Date: Wt: 02/06/2023 81.6 kg (180 lb) 02/03/2023 80.7 kg (178 lb) Please advise. Thank you. CRUZITO Perkins. documented in this encounter [facility] 02-28-2023 Miscellaneous Notes Rx sent as requested. Patient has been identified by name and date of : Yes Requested Prescriptions Pending Prescriptions Disp Refills omeprazole (PRILOSEC) 40 mg capsule 180 capsule 3 Sig: Take 1 capsule by mouth two times a day. RX INSTRUCTIONS: Patient aware RX will be sent to pharmacy. No need to notify patient. Alina Stovall Ma documented in this encounter [facility] 02-18-2023 History of Present illness Narrative Pt did not show for Lung cancer screening consult. documented in this encounter [facility] 02-10-2023 Miscellaneous Notes Spoke with patient's and scheduled at times that worked best for the patient. Destinee Burton notified. Please reach out to pt or and set up labs/ OV Chelsea Cazares LPN Can let him know PSA is up a little since September. Recommend recheck in March. Please schedule for CBC/CMP/PSA/Testosterone then OV in mid-March. Monica Jung DO documented in this encounter [facility] 02-05-2023 Miscellaneous Notes Anoro cancelled. Rx for stiolto sent instead. Anoro Ellipta not covered with insurance please send alternative below -Stiolto Respimat -Striverdi Respimat -Bevespi Aerosphere HFA -Spiriva Respimat Aimee Montaño Ma Rx sent as requested. Call if SOB, cough, wheezing symptoms persist or if he is needing to use his inhaler daily. Pt's advised of results and instructions. verbalizes understanding. Would like to have inhaler sent to [facility]. Duke Soria LPN ----- Message from Erik Cota MD sent at 02/05/2023 8:36 AM EDT ----- PFTs show moderate COPD. Recommend starting patient on Anoro Ellipta 1 puff daily to help control COPD and prevent flare ups. If agreeable, will send rx to requested pharmacy. documented in this encounter [facility] 02-05-2023 Miscellaneous Notes Pt's notified of pcp's message. was transferred to schedule appointment. Duke Soria LPN Naima ordered lung cancer screening in October for his history of smoking. Can call [phone] number if he is wanting to schedule this. Per patient's the scan from [address] done as far as she knows. I advised her of provider's remarks based on 2017 imaging and she voiced understanding. Can we see if patient had any recent testing that we are not aware of. The CT results above say interval resolution so I wouldn't re image based on that from 6 years ago. Naima Sinha APRN.CNP Images from the original note were not included. Looked in Care Everywhere, found CT scan done in 2017 that mentions right upper lobe nodule. Pt stated that he had testing done in [facility] 4-5 years ago. I don't see any imaging that mentions a lung nodule. Did he has a test somewhere else? Naima Sinha APRN.JAMES Phoned patient and spoke with his Kat and reviewed results and recommendations with her. She voiced understanding and reports she will review with her . She stated the patient was inquiring if he was to have a CT due to the lung nodule? I explained I would route her question to PCP for review and get back with her with his response- advised likely to be Friday or after. She voiced understanding. ----- Message from Erik Cota MD sent at 01/31/2023 4:20 PM EDT ----- Normal alpha 1 antitrypsin to workup cause for COPD. Follow up with PFTs as ordered. documented in this encounter [facility] 02-03-2023 History of Present illness Narrative HPI 67 year old patient who presents with an elevated PSA. Hx of prostate cancer. Last Visit 12/24/2022: -sp inflatable penile prosthesis (NB) 11/14/22 -wound care reviewed -pumping instructions reviewed -warning signs reviewed -Dr. Torres information given to -Smoking cessation encouraged. -S/p prostatectomy. -S/P cystoscopy, normal Today's visit: #Erectile Dysfunction -sp insertion of 3 piece inflatable penile prosthesis (reservoir placed superficial on right) 11/14/22 -doing well, having intercourse -reports a lot of liquid coming out after sex, likely urine -high amount is very bothersome -some leakage with bending, none with coughing or sneezing #Elevated PSA Urinary Difficulties: yes Unexpected weight loss: yes Bone pain: yes-lower back/hips Family history of prostate cancer: yes-self Previous biopsy:yes, prostatectomy Smoker? yes with agent orange exposure: No -smoker? yes from 2 packs to 1/2 pack. Lab Results Component Value Date TESTOSTERONE 948 12/13/2022 TESTOSTERONE 92 (L) 09/20/2022 TESTOSTERONE 534 06/12/2022 Current Medications: No current outpatient medications on file. No current facility-administered medications for this visit. PMH: No past medical history on file. PSH: No past surgical history on file. FMH: No family history on file. Allergies: Not on File Physical Exam Implant: tips properly placed, inflates and deflates properly Pump in place, nonfixed, able to inflate and deflate No signs of infection erosion or extrusion Assesment/Plan #Erectile Dysfunction -sp inflatable penile prosthesis (NB) -wound care reviewed -pumping instructions reviewed -warning signs reviewed #Smoking Addiction -Smoking cessation encouraged. #Prostate Cancer -S/p prostatectomy. #Climacturia -discussed climacturia -discussed treatment including sling, pt declined at this time -rec emptying bladder prio to sex Follow up prn Scribe Attestation By signing my name below, I, Savannah Sheri , Scribe attest that this documentation has been prepared under the direction and in the presence of Juana Scales MD. documented in this encounter [facility] Work Phone: 02-03-2023 History of Present illness Narrative PULM FUNCTION SMARTBLOCK: Provider: Erik Cota MD Assisting Tech: Dionne Linda RPFT Spirometry w/BD: 1 documented in this encounter [facility] 01-31-2023 Miscellaneous Notes Patient already scheduled by a non-[place] staff. Destinee Burton Next new patient time with either me or Dr. Gorman. Monica Jung DO Saw PCP today, saw Dr Eldon Rahman at main 01/06/23. Please advise. Chelsea Cazares LPN Patient being referred by Dr. Cota for prostate cancer metastatic to intraabdominal lymph node. Please advise. Destinee Burton documented in this encounter [facility] 01-31-2023 History of Present illness Narrative Chief Complaint Patient presents with: Follow Up: 3 month HPI Luis Angel Aguila is a 67 year old male who presents here today for Above Complaints.. Prostate cancer s/p prostatectomy: Managed by Dr. Rahman, oncology. Last OV from 01/06 reviewed. Monitoring PSA every 3 months. Recommending intermittent Lupron. No worsening urinary symptoms. Looking into getting oncology in [place]. BP elevated on initial check. Has not taken pills yet today. Checking once per week with readings in the 120-140-/80's. Had small bowel obstruction back in November after his prostate removal surgery. States that he has BM every other morning instead of every morning. Soft BM with straining. Denies hematochezia, melena, abdominal pain, nausea, vomiting. Taking Docusate BID. Uses Miralax about once a week. COPD: Diagnosed more than 10 years ago. Has not been on inhaler in about 5 years. Admits to cough, wheezing, SOB on a regular basis. Still smoking about 3/4 pack per day. Not ready to quit smoking. PHQ-2 / Depression screen He in the past two weeks denies having felt down, depressed, hopeless or with little interest or pleasure in doing things. States that he has had his COVID and flu shot already this year. Past medical history, appointments, medications, allergies reviewed. Previous Medical History PAST MEDICAL HISTORY Diagnosis Date COPD (chronic obstructive pulmonary disease) (HCC) Essential hypertension GERD (gastroesophageal reflux disease) Mixed hyperlipidemia Osteoarthritis of multiple joints 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) S/P prostatectomy Previous Surgical History PAST SURGICAL HISTORY Procedure Laterality Date ABDOMINAL SURGERY HX APPENDECTOMY COLONOSCOPY 12/12/2022 repeat 5 years FOOT RIGHT OP SURGERY Right FRACTURE SURGERY REMOVAL OF PROSTATE REPAIR ABDOMINAL HERNIA SHOULDER SURGERY HX Bilateral XR CERVICAL FUSION OR Family History FAMILY HISTORY Problem Relation Age of Onset Lung Cancer Mother Dementia Father other (ETOH) Father Hypertension Brother Aneurysm Maternal Grandmother other (car accident) Maternal Grandfather other (car accident) Paternal Grandfather Patient Allergies ALLERGIES Allergen Reactions Morphine Rash, Itching Prednisone Mental Status Change Current Medications Current Outpatient Medications on File Prior to Visit Medication Sig simvastatin (ZOCOR) 40 mg tablet Take 40 mg by mouth daily at bedtime. lisinopril (ZESTRIL) 20 mg tablet Take 20 mg by mouth once daily. gabapentin (NEURONTIN) 300 mg capsule Take 300 mg by mouth three times daily. omeprazole (PRILOSEC) 40 mg capsule Take 40 mg by mouth twice daily. hydroCHLOROthiazide 25 mg tablet Take 25 mg by mouth once daily. aspirin, enteric coated (ASPIRIN, ENTERIC COATED) 81 mg EC tablet Take 81 mg by mouth once daily. docusate sodium (STOOL SOFTENER) 100 mg capsule Take 100 mg by mouth twice daily. cholecalciferol (VITAMIN D-3) 50 mcg (2,000 unit) tablet Take 2,000 Units by mouth once daily. beta-carotene,A,-vits C,E/mins (OCUVITE ORAL) Take 1 tablet by mouth once daily. calcium carbonate (CALCIUM 600 ORAL) Take 1 tablet by mouth once daily. Multivitamin capsule Take 1 capsule by mouth once daily. meloxicam (MOBIC) 15 mg tablet Take 1 tablet by mouth once daily. With food. No current facility-administered medications on file prior to visit. Social History Social History Tobacco Use Smoking status: Every Day Packs/day: 1.00 Years: 55.00 Additional pack years: 0.00 Total pack years: 55.00 Types: Cigarettes Smokeless tobacco: Never Substance Use Topics Alcohol use: Yes Comment: occasionaly Drug use: Never Review of Symptoms REVIEW OF SYSTEMS GENERAL: No weight loss, malaise or fevers RESPIRATORY: See HPI CARDIOVASCULAR: Negative for chest pain, leg swelling, hypertension, CHF or palpitations GI: See HPI SKIN: Negative for lesions, rash, and itching EXAM: BP 144/82 Pulse 67 Resp 18 Wt 79.7 kg (175 lb 12.8 oz) SpO2 94% BMI 24.48 kg/m General Appearance: Well appearing, alert, in no acute distress, well-hydrated, well nourished.. Skin: Skin color, texture, turgor normal, no suspicious rashes or lesions. Lungs: Lungs clear to auscultation. No wheezing, rhonchi, rales.. Heart: RRR without murmur, gallop, or rubs. No ectopy. Abdomen: Normal abdominal exam, Abdomen soft, non-tender. Bowel sounds normal. No masses, organomegaly. Extremities: No deformities, edema, skin discoloration, clubbing or cyanosis. Good capillary refill. . Health Maintenance List Abdominal Aortic Aneurysm Screening Never done Hepatitis C Screening Never done DTaP,Tdap,Td Vaccine(1 - Tdap) Never done Lung Cancer Screening Never done RSV Vaccine(1 - 1-dose 60+ series) Never done Advance Directive Discussion Never done Depression Assessment Never done Influenza Vaccine(1) Never done Covid-19 Vaccine( - 2022- season) due on 12/20/2022 Shingrix Vaccine(1 of 2) due on 10/26/2023 Pneumococcal Vaccine: 65+(1 - PCV) due on 10/26/2023 Diabetes Screening due on 12/13/2025 Lipid Screening due on 12/13/2027 Colorectal Cancer Screening due on 12/13/2027 Prostate Cancer Screening Discussion due on 12/14/2027 Data reviewed Component Latest Ref Rng & Units 12/12/2022 WBC 3.70 - 11.00 k/uL 5.25 RBC 4.20 - 6.00 m/uL 4.60 Hemoglobin 13.0 - 17.0 g/dL 14.2 Hematocrit 39.0 - 51.0 % 43.7 MCV 80.0 - 100.0 fL 95.0 MCH 26.0 - 34.0 pg 30.9 MCHC 30.5 - 36.0 g/dL 32.5 RDW-CV 11.5 - 15.0 % 13.3 Platelet Count 150 - 400 k/uL 288 MPV 9.0 - 12.7 fL 9.1 Neut% % 60.7 Abs Neut (ANC) 1.45 - 7.50 k/uL 3.19 Lymph% % 17.9 Abs Lymph 1.00 - 4.00 k/uL 0.94 (L) Letcher% % 11.4 Abs Letcher <0.87 k/uL 0.60 Eosin% % 8.6 Abs Eosin <0.46 k/uL 0.45 Baso% % 1.0 Abs Baso <0.11 k/uL 0.05 Immature Gran % % 0.4 IMMATURE GRANS (ABS) <0.10 k/uL <0.03 NRBC /100 WBC 0.0 Absolute nRBC <0.01 k/uL <0.01 DTYPE Auto Protein, Total 6.3 - 8.0 g/dL 8.0 Albumin 3.9 - 4.9 g/dL 4.6 Calcium 8.5 - 10.2 mg/dL 10.6 (H) Bilirubin, Total 0.2 - 1.3 mg/dL 0.5 Alkaline Phosphatase 38 - 113 U/L 103 AST 14 - 40 U/L 22 ALT 10 - 54 U/L 7 (L) Glucose 74 - 99 mg/dL 105 (H) BUN 9 - 24 mg/dL 7 (L) Creatinine 0.73 - 1.22 mg/dL 0.89 Sodium 136 - 144 mmol/L 132 (L) Potassium 3.7 - 5.1 mmol/L 4.0 Chloride 97 - 105 mmol/L 94 (L) CO2 22 - 30 mmol/L 25 Anion Gap 9 - 18 mmol/L 13 eGFR >=60 mL/min/1.73m 93 Cholesterol, Total <200 mg/dL 210 (H) Triglyceride <150 mg/dL 116 HDL Cholesterol >39 mg/dL 54 Non HDL Cholesterol <130 mg/dL 156 (H) Fasting Time hrs 29.5 VLDL Cholesterol <30 mg/dL 23 TC:HDL Ratio <5.10 3.89 LDL Cholesterol <100 mg/dL 133 (H) LDL:HDL Ratio <2.54 2.46 ASSESSMENT/PLAN: 1. 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 Requesting referral to oncology here in [place]. No recurrent symptoms. Will f/u recommendations - CONSULT TO ONCOLOGY 2. S/P prostatectomy - ICD9: V45.89, ICD10: Z90.79 See above. 3. History of small bowel obstruction - ICD9: V12.79, ICD10: Z87.19 Resolved. 4. Straining during bowel movements - ICD9: 787.99, ICD10: R19.8 Soft stools without blood or black stools. Discussed increasing water and fiber intake. Use miralax PRN for constipation. 5. Chronic obstructive pulmonary disease, unspecified COPD type (HCC) - ICD9: 496, ICD10: J44.9 Uncontrolled. Refill albuterol for PRN use. Obtain PFTs. Check alpha 1 antitrypsin. Recommended smoking cessation. - SPIROMETRY - BASELINE AND POST DILATOR - ALBUTEROL SULFATE HFA 90 MCG/ACTUATION AEROSOL INHALER - ALBUTEROL SULFATE HFA 90 MCG/ACTUATION AEROSOL INHALER - [id number] BL 6. Essential hypertension - ICD9: 401.9, ICD10: I10 - Controlled - Continue current medications - Recommend home blood pressure monitoring, to bring results to next visit - Encouraged sodium restriction, DASH or Mediterranean diet - Recommend regular aerobic exercise 7. Mixed hyperlipidemia - ICD9: 272.2, ICD10: E78.2 - Uncontrolled - Continue current medications - Counseled on healthy diet and regular exercise 8. Gastroesophageal reflux disease, unspecified whether esophagitis present - ICD9: 530.81, ICD10: K21.9 - Continue treatment with Prilosec 40 mg QD 9. Primary osteoarthritis involving multiple joints - ICD9: 715.98, ICD10: M15.9 Discussed ice/heat, and tylenol for chronic aches and pains. 10. Tobacco use - ICD9: 305.1, ICD10: Z72.0 - Cessation encouraged. - Physiologic and physical aspects of tobacco addiction as well as strategies for quitting were discussed. - Counseling was given focusing on the harmful effects of this addiction especially given the patient's medical condition(s) which will be worsened because of the chemicals in tobacco. Erik Cota MD documented in this encounter [facility] 01-06-2023 History of Present illness Narrative Images from the original note were not included. [facility] NEW PATIENT EVALUATION PATIENT NAME: Luis Angel Aguila : 1955 ATTENDING PHYSICIAN: Tatiana Rahman MD DATE OF SERVICE: January 06, 2023 PCP: Erik Cota MD REFERRING PROVIDER: Self REASON FOR EVALUATION: Self-requested consultation for an opinion regarding the medical oncologic management of node-positive metastatic CSPC My final recommendations will be communicated back to the requesting physician by way of shared electronic medical record or letter to the requesting physician via [place] mail. DIAGNOSIS: Node-positive metastatic CSPC HISTORY OF PRESENT ILLNESS: Mr. 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 - Could not tolerate pelvic RT, apa, or AA/P - Last Lupron mid-06/2022 PAST MEDICAL HISTORY: PAST MEDICAL HISTORY Diagnosis Date Arthritis COPD (chronic obstructive pulmonary disease) (HCC) Essential hypertension GERD (gastroesophageal reflux disease) Mixed hyperlipidemia Osteoarthritis of multiple joints 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) PAST SURGICAL HISTORY: PAST SURGICAL HISTORY Procedure Laterality Date ABDOMINAL SURGERY HX APPENDECTOMY FOOT RIGHT OP SURGERY Right FRACTURE SURGERY REMOVAL OF PROSTATE REPAIR ABDOMINAL HERNIA SHOULDER SURGERY HX Bilateral XR CERVICAL FUSION OR MEDICATIONS: Current Outpatient Medications Medication Sig simvastatin (ZOCOR) 40 mg tablet Take 40 mg by mouth daily at bedtime. lisinopril (ZESTRIL) 20 mg tablet Take 20 mg by mouth once daily. gabapentin (NEURONTIN) 300 mg capsule Take 300 mg by mouth three times daily. omeprazole (PRILOSEC) 40 mg capsule Take 40 mg by mouth twice daily. hydroCHLOROthiazide 25 mg tablet Take 25 mg by mouth once daily. aspirin, enteric coated (ASPIRIN, ENTERIC COATED) 81 mg EC tablet Take 81 mg by mouth once daily. docusate sodium (STOOL SOFTENER) 100 mg capsule Take 100 mg by mouth twice daily. cholecalciferol (VITAMIN D-3) 50 mcg (2,000 unit) tablet Take 2,000 Units by mouth once daily. beta-carotene,A,-vits C,E/mins (OCUVITE ORAL) Take 1 tablet by mouth once daily. calcium carbonate (CALCIUM 600 ORAL) Take 1 tablet by mouth once daily. Multivitamin capsule Take 1 capsule by mouth once daily. meloxicam (MOBIC) 15 mg tablet Take 1 tablet by mouth once daily. With food. No current facility-administered medications for this visit. ? ALLERGIES: ALLERGIES Allergen Reactions Morphine Rash, Itching Prednisone Mental Status Change ? FAMILY HISTORY: FAMILY HISTORY Problem Relation Age of Onset Lung Cancer Mother Dementia Father other (ETOH) Father Hypertension Brother Aneurysm Maternal Grandmother other (car accident) Maternal Grandfather other (car accident) Paternal Grandfather SOCIAL HISTORY: Social History Tobacco Use Smoking status: Every Day Packs/day: 1.00 Years: 55.00 Additional pack years: 0.00 Total pack years: 55.00 Types: Cigarettes Smokeless tobacco: Never Substance Use Topics Alcohol use: Yes Comment: occasionaly Drug use: Never REVIEW OF SYSTEMS: Complete 10-point review of systems reviewed and negative except for that noted in the history of present illness. PHYSICAL EXAM: BP 158/90 Pulse 64 Temp 36.3 C (97.3 F) (Temporal) Resp 18 Ht 180.5 cm (5' 11.06) Wt 81 kg (178 lb 9.6 oz) SpO2 100% BMI 24.87 kg/m Body surface area is 2.02 meters squared. ECOG/Karnofsky Performance Score: 0/100% General: In no acute distress, comfortable HEENT: Normocephalic, EOMI, conjunctiva clear CV: Regular rate and rhythm, no m/r/g Lungs: Non-labored respirations Extremities: No lower extremity edema Skin: No rashes or lesions Neuro: No gross or focal motor deficits, sensation intact LABS: Reviewed and summarized as above under HPI. PATHOLOGY: Reviewed and summarized as above under HPI. IMAGING: Reviewed and summarized as above under HPI. ASSESSMENT: Mr. 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 I recommended intermittent Lupron pending his PSADT. For now, can continue to monitor. Once he develops metastatic CRPC, Provenge vs. Pluvicto would be indicated at that time, pending data from PSMAfore trial, which will be presented at the [employer] Annual Congress in 01/2023. PLAN: Continue to monitor PSA every 3 months. Once PSADT <6 months, start intermittent Lupron. Once he develops mCRPC, Provenge vs. Pluvicto would be indicated at that time, pending data from PSMAfore trial, which will be presented at the [employer] Annual Congress in 01/2023. I will arrange for him to see Dr. Monica Jung at [facility] as he would like to follow with someone closer to home. He may also continue to follow with Dr. Cohn at and I advised that he at least see him again in 03/2023, when his next PSA will be due. RTC as needed. Mr. Aguila has our office contact information and knows how to reach us at any time with questions/concerns or if his clinical condition changes. I spent 90 minutes in total on this patient encounter including time [id number] with the patient, review of relevant records, and communication with other members of the treatment team. Tatiana Rahman MD Associate Staff, Genitourinary Medical Oncology [place] [address] January 06, 2023 Cc: Monica Jung DO documented in this encounter [facility] 01-06-2023 Nurse Note Additional intake questions: Has the patient had fever, nausea, vomiting, diarrhea, constipation, fatigue for > 1 week? No Does the patient have a decreased appetite? No Does patient want to see a Shield Operator? No (yes to any of above refer patient to schedulers for dietitian appointment) ) Does patient have any new or increased numbness or tingling of extremities? No Is patient interested in fertility information? No Does patient need any prescription refills? No Does patient have an advanced directive in place? No, Patient refused referral to Social Work or Resource Center documented in this encounter [facility] 12-13-2022 Miscellaneous Notes [employer] message sent to pt notifying him of results and recommendations below. Notified pt to repeat labs in 1 month, 01/09/23. If questions to contact office. Maty Raza Ma ----- Message from Naima Sinha APRN.TOOL GRINDER SET UP OPERATOR GEAR sent at 12/13/2022 6:54 AM EDT ----- Total cholesterol and bad cholesterol(LDL) borderline high. Continue medication. Also recommend low saturated fat diet and aim for at least 150 minutes of exercise per week. Sodium mildly low. Recommend recheck in one month. The rest of his blood wor k in acceptable ranges. Naima Sinha APRN.TOOL GRINDER SET UP OPERATOR GEAR documented in this encounter [facility] 12-12-2022 History of Present illness Narrative TRANSITION CARE MANAGEMENT (TCM) FOLLOW-UP NOTE Provider Action/FYI Spoke to spouse Validated that above caregiver is involved in patient's care CG states patient is currently resting Patient completed colonoscopy today Caregiver states she is requesting that patients Oncology care be transferred from to [facility]. States she is awaiting a call from [facility], states she will call again Provided spouse with Urologist phone number for Dr. Olivera, patient to schedule follow up after discharge. CG will call and schedule. No concerns at this time. Advised to notify PCP for recurring, new/worsening symptoms. Verbalized understanding. PCP TCM follow up: Patient identified by name and date of : YES Spoke to spouse Discharge Network Status: In-Network Discharge Summary: Pt discharged from [facility] on 11/22/22. Admitted for: Small bowel obstruction Undercollar Baster plan for next outreach: Will follow up 1 week. TETE Education Ordered -: No Signature Vivi Smith RN December 12, 2022 documented in this encounter [facility] 12-12-2022 History and physical note UPDATED HISTORY AND PHYSICAL EXAMINATION SERVICE DATE: 12/12/2022 SERVICE TIME: 10:17 AM PHYSICAL EXAM MUST BE COMPLETED ON ADMISSION The History and Physical (completed in the past 30 days) has been reviewed and the patient has been examined. The contents accurately reflect the patient's condition with the following additions or revisions since the H&P was completed. Examination indicates no changes. This H&P can be found in the attached. SIGNATURE: Devin Sanchez III, MD PATIENT NAME: Luis Angel Aguila DATE: December 12, 2022 TIME: 10:16 AM Source Note - Beni Dewey MD - 11/19/2022 5:21 AM EDT DEPARTMENT OF HOSPITAL MEDICINE HISTORY AND PHYSICAL EXAM SERVICE DATE: 11/19/2022 SERVICE TIME: 5:21 AM Primary Care Physician: Erik Cota MD NIGHT & WEEKEND COVERAGE: From 7am - 7pm, please call Sound After 7pm, please call cross cover pager #[phone] Subjective CHIEF COMPLAINT: Abdominal pain, distention, nausea with hematemesis HPI: This is a 67 year old male with hx of HTN, GERD, HLD, distant appendectomy, prostate CA with mets to lymph nodes s/p prostatectomy in 2020 and radiation (not currently on any treatment), and erectile dysfunction s/p penile implant 11/18 at [facility]. He presented to the ED complaining of abdominal pain and distention since his surgery 4 days ago. His last normal bowel movement was Friday. He passed a small amount of gas yesterday morning. He has developed nausea, and has vomited black/coffee ground emesis. He is taking Tramadol for postop pain and denies using NSAIDs. CT AP showed a postop ileus vs early SBO with non-abrupt tapering and without an obvious transition point. Also seen was a 6x2.7x9.5 cm postop fluid collection adjacent to the penile pump. Pt denies headache, fever, chills, vision changes, swallowing problems, neck pain, chest pain, shortness of breath, cough, diarrhea, constipation, urinary problems, muscle pain or weakness, numbness, tingling, or joint pain/swelling. No other associated symptoms. No other known aggravating or relieving factors. He is afebrile and HD stable, 96% on RA. Glucose 111, Na 131, K 4.2, creatinine 1.49, CBC was normal. 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) PAST SURGICAL HISTORY Procedure Laterality Date APPENDECTOMY FOOT RIGHT OP SURGERY Right REPAIR ABDOMINAL HERNIA SHOULDER SURGERY HX Bilateral XR CERVICAL FUSION OR FAMILY HISTORY Problem Relation Age of Onset Lung Cancer Mother Dementia Father other (ETOH) Father Hypertension Brother Aneurysm Maternal Grandmother other (car accident) Maternal Grandfather other (car accident) Paternal Grandfather Social History Tobacco Use Smoking status: Every Day Packs/day: 1.00 Years: 55.00 Additional pack years: 0.00 Total pack years: 55.00 Types: Cigarettes Smokeless tobacco: Never Substance Use Topics Alcohol use: Yes Comment: occasionaly Drug use: Never HOME MEDICATIONS: Prior to Admission Medications Prescriptions Last Dose Informant Patient Reported? Taking? Multivitamin capsule Yes No Sig: Take 1 capsule by mouth once daily. aspirin, enteric coated (ASPIRIN, ENTERIC COATED) 81 mg EC tablet Yes No Sig: Take 81 mg by mouth once daily. beta-carotene,A,-vits C,E/mins (OCUVITE ORAL) Yes No Sig: Take by mouth. calcium carbonate (CALCIUM 600 ORAL) Yes No Sig: Take 1 tablet by mouth once daily. cholecalciferol (VITAMIN D-3) 50 mcg (2,000 unit) tablet Yes No Sig: Take 2,000 Units by mouth once daily. docusate sodium (STOOL SOFTENER) 100 mg capsule Yes No Sig: Take 100 mg by mouth twice daily. gabapentin (NEURONTIN) 300 mg capsule Yes No Sig: Take 300 mg by mouth three times daily. hydroCHLOROthiazide 25 mg tablet Yes No Sig: Take 25 mg by mouth once daily. lisinopril (ZESTRIL) 20 mg tablet Yes No Sig: Take 20 mg by mouth once daily. meloxicam (MOBIC) 15 mg tablet No No Sig: Take 1 tablet by mouth once daily. With food. omeprazole (PRILOSEC) 40 mg capsule Yes No Sig: Take 40 mg by mouth twice daily. simvastatin (ZOCOR) 40 mg tablet Yes No Sig: Take 40 mg by mouth daily at bedtime. Facility-Administered Medications: None ALLERGIES Allergen Reactions Morphine Rash, Itching Prednisone Mental Status Change REVIEW OF SYSTEM: All ROS are negative except those noted in HPI Objective PHYSICAL EXAM: BP 138/95 Pulse 87 Temp (Src) 98.1 (Oral) Resp 16 Ht 5' 11 (1.80m) Wt 174 lb 6.1 oz (79.1kg) SpO2 96% BMI 24.33 kg/(m^2). O2 Therapy: Room Air GENERAL: Alert, no distress, cooperative SKIN: Warm, dry intact, no open lesions, no rash HEAD/SINUSES: Normocephalic, atraumatic, oral mucosa moist EYES: PERRLA, EOMI NECK: No jugulovenous distention, Supple, no adenopathy LUNGS: Lungs clear to auscultation, no wheezes, ronchi, or rales CARDIAC: RRR, Normal S1 and S2; no rubs, murmurs, or gallops ABDOMEN: Abdomen soft, slightly distended, non-tender, BS diminished. Well healed surgical scars EXTREMITIES: Extremities normal, no deformities, edema, clubbing or skin discoloration. NEURO: Sensation grossly intact, Cranial nerves II-XII intact, moves all 4 extremities, speech was clear and coherent - no chronic fuentes DATA: Diagnostic tests reviewed for today's visit: Most recent labs and imaging results. CBC: Recent Labs 11/18/22 1618 WBC 10.89 RBC 4.86 HB 15.3 HCT 46.4 PLT 296 MCV 95.5 MCH 31.5 MPV 9.1 Coags: Recent Labs 11/18/22 1618 INR 1.0 BMP: Recent Labs 11/18/22 1618 NA 131* K 4.2 CHLOR 93* CO2 27 BUN 19 CREAT 1.49* GLUC 111* CMP: Recent Labs 11/18/22 1618 NA 131* K 4.2 CHLOR 93* CO2 27 BUN 19 CREAT 1.49* GLUC 111* CA 10.3 ANION 11 Cardiac Enzymes: No results for input(s): CK, MB, CKMB, TROPT in the last 24 hours. Liver Function, Amylase, Lipase: No results for input(s): TPROT, ALB, ALT, AST, ALKPHOS, TBILI, AMYLASE, LIPASE, LACTATE in the last 24 hours. MG/PHOS: No results for input(s): MG, P in the last 24 hours. Renal Panel: Recent Labs 11/18/22 1618 CREAT 1.49* BUN 19 GLUC 111* CA 10.3 CHLOR 93* K 4.2 CO2 27 NA 131* Heme: No results for input(s): RETICP, ABSRETIC, LD, KITTY, FE, TIBC, TRANSFERSAT in the last 24 hours. Assessment/Plan Active Problems: GI bleed/coffee-ground emesis, SBO v ileus -- NPO -- IV protonix -- GI consult -- monitor H/H, transfuse PRBC if Hb <7 -- No NSAIDs -- Surgery ordered NG tube 2. YADIEL, hyponatremia -- IVF, monitor 3. Postop (penile pump implant) fluid collection -- Urology consult -- ED offered to send pt to [facility] where his recent surgery was done but pt refused and stated he preferred to stay here 4. HL -- continue statin VTE Prophylaxis: Contraindication: GI Bleed Disposition: Pending workup Plan of care discussed with: Provider, RN, Patient Code status: Full SIGNATURE: Beni Dewey MD PATIENT NAME: Luis Angel Aguila DATE: November 19, 2022 TIME: 5:21 AM PAGER/CONTACT #: Sound SUBJECTIVE: This is a 67 year old, accompanied by that is here today for Above Complaints HOSPITAL/ER FOLLOW UP: Reason for visit: abdominal pain/ GI bleed Which facility: [facility] Date of visit: 11/18/2022-11/22/2022 Diagnosis: ileus partial SBO Testing done: CT ABD/PEL Treatment given: NG tube, IV fluids Had small bowel movement this AM. Taking colace as prescribed. Not taking tramadol anymore. Has a little pain to epigastric area but reports this is related to his GERD at times. Denies fevers, chills, nausea, vomiting, hematemesis, hematochezia or melana. Has colonoscopy on December 12 for screening colonoscopy Hospital records reviewed PAST MEDICAL HISTORY 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) ALLERGIES Morphine and Prednisone MEDICATIONS CURRENT MEDICATIONS Current Outpatient Medications Medication Sig simvastatin (ZOCOR) 40 mg tablet Take 40 mg by mouth daily at bedtime. lisinopril (ZESTRIL) 20 mg tablet Take 20 mg by mouth once daily. gabapentin (NEURONTIN) 300 mg capsule Take 300 mg by mouth three times daily. omeprazole (PRILOSEC) 40 mg capsule Take 40 mg by mouth twice daily. hydroCHLOROthiazide 25 mg tablet Take 25 mg by mouth once daily. aspirin, enteric coated (ASPIRIN, ENTERIC COATED) 81 mg EC tablet Take 81 mg by mouth once daily. docusate sodium (STOOL SOFTENER) 100 mg capsule Take 100 mg by mouth twice daily. cholecalciferol (VITAMIN D-3) 50 mcg (2,000 unit) tablet Take 2,000 Units by mouth once daily. beta-carotene,A,-vits C,E/mins (OCUVITE ORAL) Take 1 tablet by mouth once daily. calcium carbonate (CALCIUM 600 ORAL) Take 1 tablet by mouth once daily. Multivitamin capsule Take 1 capsule by mouth once daily. meloxicam (MOBIC) 15 mg tablet Take 1 tablet by mouth once daily. With food. No current facility-administered medications for this visit. Medications and allergies reviewed by this provider. SOCIAL HISTORY SOCIAL HISTORY Social History Tobacco Use Smoking status: Every Day Packs/day: 1.00 Years: 55.00 Additional pack years: 0.00 Total pack years: 55.00 Types: Cigarettes Smokeless tobacco: Never Substance Use Topics Alcohol use: Yes Comment: occasionaly Drug use: Never REVIEW OF SYSTEMS All other reviewed and negative other than HPI. OBJECTIVE: BP 132/80 Pulse 77 Resp 16 Wt 80.7 kg (178 lb) SpO2 96% BMI 24.83 kg/m . Vital signs reviewed by this provider. APPEARANCE Well appearing, alert, in no acute distress, well-hydrated, well nourished. EYES conjunctiva and sclera normal. HEART RRR with normal S1 and S2, no murmurs, no gallops, no JVD appreciated LUNG clear to auscultation. No wheezes, rhonchi or rales ABDOMEN bowel sounds hypoactive no bruits, soft, non-tender, non-distended, without organomegaly or palpable masses. No rebound tenderness or guarding SKIN Skin color, texture, turgor normal, no suspicious rashes or lesions to exposed skin ABDOMINAL AORTIC ANEURYSM SCREENING Never done HEPATITIS C SCREENING Never done DTAP,TDAP,TD(1 - Tdap) Never done LIPID SCREEN Never done LUNG CANCER SCREENING Never done ADVANCE DIRECTIVE DISCUSSION Never done DEPRESSION ASSESSMENT Never done SHINGRIX VACCINE(1 of 2) due on 10/26/2023 PNEUMOCOCCAL: 65+(1 - PCV) due on 10/26/2023 INFLUENZA(1) due on 12/06/2022 COVID-19 VACCINE(4 - Pfizer series) due on 02/25/2023 COLORECTAL CANCER SCREENING due on 11/19/2023 DIABETES SCREEN due on 11/20/2025 PROSTATE CANCER SCREENING DISCUSSION due on 09/21/2027 ASSESSMENT/PLAN: 1. Hospital discharge follow-up - ICD9: V67.59, ICD10: Z09 (primary diagnosis) - improved 2. Decreased hemoglobin - ICD9: 285.9, ICD10: R71.0 - will recheck next week - no red flag symptoms or exam findings - red flag symptoms discussed, verbalizes understanding - HEMOGLOBIN (HGB) - HEMATOCRIT (HCT) 3. Gastrointestinal hemorrhage, unspecified gastrointestinal hemorrhage type - ICD9: 578.9, ICD10: K92.2 - continue omeprazole - plan as in #2 4. Ileus (HCC) - ICD9: 560.1, ICD10: K56.7 - continue colace - no red flag symptoms or exam findings - red flag symptoms discussed, verbalizes understanding - follow-up as needed to ER with red flag symptoms 5. Small bowel obstruction (HCC) - ICD9: 560.9, ICD10: K56.609 - plan as in #4 Naima Sinha APRN.TOOL GRINDER SET UP OPERATOR GEAR UPDATED HISTORY AND PHYSICAL EXAMINATION SERVICE DATE: 12/12/2022 SERVICE TIME: 10:17 AM PHYSICAL EXAM MUST BE COMPLETED ON ADMISSION The History and Physical (completed in the past 30 days) has been reviewed and the patient has been examined. The contents accurately reflect the patient's condition with the following additions or revisions since the H&P was completed. Examination indicates no changes. This H&P can be found in the attached. SIGNATURE: Devin Sanchez III, MD PATIENT NAME: Luis Angel Aguila DATE: December 12, 2022 TIME: 10:17 AM documented in this encounter [facility] 12-12-2022 Nurse Note Pt. arrives in left lateral position. Resting. Passing gas. Abd. soft. Non distended. Denies pain. SR up x 2, call light in reach. Isa Landa, BRYSON documented in this encounter [facility] 12-04-2022 History of Present illness Narrative TRANSITION CARE MANAGEMENT (TCM) FOLLOW-UP NOTE Provider Action/FY Discharge Network Status: In-Network Discharge Summary: Patient due for weekly care coordination call after his hospital D/C on 11/22 from [facility] Patient admitted for SBO I was unable to reach the patient Phone number when called has a recording saying the call cant be completed as dailed and to check the number and call again Called again and it number has the same message No other numbers in [facility] [employer] plan for next outreach: Will follow up in one week TETE Education Ordered -: No Signature Rose Xiong RN December 04, 2022 documented in this encounter [facility] 12-03-2022 History of Present illness Narrative 67 year old patient who presents with an elevated PSA. Hx of prostate cancer.Last Visit 12/03/2022:-sp inflatable penile prosthesis (NB) 11/14/22-IPP care reviewed-smoking cessation discussedToday's visit:#Erectile Dysfunction-sp inflatable penile prosthesis (NB)-doing very well, feels as though he has healed well.#Elevated PSAUrinary Difficulties: yesUnexpected weight loss: yesBone pain: yes-lower back/hipsFamily history of prostate cancer: yes-selfPrevious biopsy:yes, prostatectomySmoker? yesVeteran with agent orange exposure: No#Erectile Dysfunction11/14/22:sp insertion of 3 piece inflatable penile prosthesis (reservoir placed superficial on right-admitted with SBO at [facility] - notes reviewed-pain controlled-no fevers/chills-urinating well-no wound drainage-smoker? yes from 2 packs to 1/2 pack. [facility] Work Phone: 11-26-2022 Miscellaneous Notes PATIENT INFORMATION Record ID: [id number] Patient Name: [facility] Hospital: [facility] [place]: [facility] Attending: Lesa De La Rosa Center: Hospital Medicine INSTRUCTIONS All Clear SN to remind patient of next upcoming appointment date, time, location Transfer to Setter Out Manager [phone] All Clear All Clear SURVEY INFORMATION Medical/Nurse Ticket Dispatcher: Randa Szymanski 1. Your discharge instructions are important in guiding you through the recovery process. Is there anything I could help you clarify on your discharge instructions? (Standard Question) No 2. Do you have your follow up appointment related to your hospital stay scheduled within the next 30 days? (Standard Question) Yes 3. Do you have all the necessary equipment and supplies at home? (Standard Question) No 4. Many patients have concerns about their medications once they are home. Do you have any questions about getting or taking your medications? (Standard Question) No 5. Do you have any new or different symptoms? (Standard Question) No documented in this encounter [facility] 11-25-2022 History of Present illness Narrative TCM Home Visit Referral Source of Stratification: [facility] Admission Status: Discharged Readmission Risk Score: 16 ELI Score: 1 Patient meets program referral criteria: No Patient does not qualify for High Risk TCM Home Visit program due to: Discharged home, does not meet program criteria Anya Aldana RN November 25, 2022 3:43 PM TRANSITIONAL CARE MANAGEMENT (TCM) COMMUNITY MONITORING PROGRAM Provider Action/FYI: TCM Chart review. Pt had PCP f/u today. Telephone outreach deferred. Appointments for Next 60 Days Date Time Provider Location Dept Phone 11/25/2022 1:40 PM PODLOGAR, NAIMA [facility] [phone] 12/12/2022 9:30 AM NICK DEVIN Cabrera [phone] 12/12/2022 9:30 AM WSTR PR02 Marcos Cabrera [phone] SUMMARY: Discharge Network Status: In-Network Discharge Pt discharged from [facility] on 11/22/22. Admitted for: Small bowel obstruction SUMMARY OF WHAT HAPPENED WHILE I WAS IN THE HOSPITAL: This is a 67 year old male with hx of HTN, GERD, HLD, distant appendectomy, prostate CA with mets to lymph nodes s/p prostatectomy in 2020 and radiation (not currently on any treatment), and erectile dysfunction s/p penile implant 11/18 at [facility]. He presented to the ED complaining of abdominal pain and distention since his surgery 4 days ago. His last normal bowel movement was Friday. He passed a small amount of gas yesterday morning. He has developed nausea, and has vomited black/coffee ground emesis. He is taking Tramadol for postop pain and denies using NSAIDs. CT AP showed a postop ileus vs early SBO with non-abrupt tapering and without an obvious transition point. Also seen was a 6x2.7x9.5 cm postop fluid collection adjacent to the penile pump. Urology evaluated the patient for his penile pump, states that it appears stable and no acute urological interventions are needed at this time. Patient was made n.p.o. for bowel rest, started on IV fluids for hydration, NG tube was placed for decompression with low intermittent suction. General surgery was consulted, recommended conservative management at this time. Patient's nausea and vomiting as well as abdominal pain resolved. Patient's bowel function has improved, he is now having regular bowel movements. NG tube was discontinued and diet advance gradually as tolerated. Patient is tolerating diet well. No other acute complaints. Patient is being discharged home in stable condition. Should follow-up outpatient with PCP. Contact made with patient: No Outreach ended Anya Aldana RN documented in this encounter [facility] 11-25-2022 Instructions Naima Sinha APRN.CNP - 11/25/2022 1:54 PM EDT Check hemoglobin on Friday documented in this encounter [facility] 11-25-2022 History of Present illness Narrative 11/25/2022 Patient presents with: Hospital F/U: [facility]; impacted bowel and GI bleed SUBJECTIVE: This is a 67 year old, accompanied by that is here today for Above Complaints HOSPITAL/ER FOLLOW UP: Reason for visit: abdominal pain/ GI bleed Which facility: [facility] Date of visit: 11/18/2022-11/22/2022 Diagnosis: ileus partial SBO Testing done: CT ABD/PEL Treatment given: NG tube, IV fluids Had small bowel movement this AM. Taking colace as prescribed. Not taking tramadol anymore. Has a little pain to epigastric area but reports this is related to his GERD at times. Denies fevers, chills, nausea, vomiting, hematemesis, hematochezia or melana. Has colonoscopy on December 12 for screening colonoscopy Hospital records reviewed 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) ALLERGIES Morphine and Prednisone MEDICATIONS Current Outpatient Medications Medication Sig simvastatin (ZOCOR) 40 mg tablet Take 40 mg by mouth daily at bedtime. lisinopril (ZESTRIL) 20 mg tablet Take 20 mg by mouth once daily. gabapentin (NEURONTIN) 300 mg capsule Take 300 mg by mouth three times daily. omeprazole (PRILOSEC) 40 mg capsule Take 40 mg by mouth twice daily. hydroCHLOROthiazide 25 mg tablet Take 25 mg by mouth once daily. aspirin, enteric coated (ASPIRIN, ENTERIC COATED) 81 mg EC tablet Take 81 mg by mouth once daily. docusate sodium (STOOL SOFTENER) 100 mg capsule Take 100 mg by mouth twice daily. cholecalciferol (VITAMIN D-3) 50 mcg (2,000 unit) tablet Take 2,000 Units by mouth once daily. beta-carotene,A,-vits C,E/mins (OCUVITE ORAL) Take 1 tablet by mouth once daily. calcium carbonate (CALCIUM 600 ORAL) Take 1 tablet by mouth once daily. Multivitamin capsule Take 1 capsule by mouth once daily. meloxicam (MOBIC) 15 mg tablet Take 1 tablet by mouth once daily. With food. No current facility-administered medications for this visit. Medications and allergies reviewed by this provider. SOCIAL HISTORY Social History Tobacco Use Smoking status: Every Day Packs/day: 1.00 Years: 55.00 Additional pack years: 0.00 Total pack years: 55.00 Types: Cigarettes Smokeless tobacco: Never Substance Use Topics Alcohol use: Yes Comment: occasionaly Drug use: Never REVIEW OF SYSTEMS All other reviewed and negative other than HPI. OBJECTIVE: BP 132/80 Pulse 77 Resp 16 Wt 80.7 kg (178 lb) SpO2 96% BMI 24.83 kg/m . Vital signs reviewed by this provider. APPEARANCE Well appearing, alert, in no acute distress, well-hydrated, well nourished. EYES conjunctiva and sclera normal. HEART RRR with normal S1 and S2, no murmurs, no gallops, no JVD appreciated LUNG clear to auscultation. No wheezes, rhonchi or rales ABDOMEN bowel sounds hypoactive no bruits, soft, non-tender, non-distended, without organomegaly or palpable masses. No rebound tenderness or guarding SKIN Skin color, texture, turgor normal, no suspicious rashes or lesions to exposed skin ABDOMINAL AORTIC ANEURYSM SCREENING Never done HEPATITIS C SCREENING Never done DTAP,TDAP,TD(1 - Tdap) Never done LIPID SCREEN Never done LUNG CANCER SCREENING Never done ADVANCE DIRECTIVE DISCUSSION Never done DEPRESSION ASSESSMENT Never done SHINGRIX VACCINE(1 of 2) due on 10/26/2023 PNEUMOCOCCAL: 65+(1 - PCV) due on 10/26/2023 INFLUENZA(1) due on 12/06/2022 COVID-19 VACCINE(4 - Pfizer series) due on 02/25/2023 COLORECTAL CANCER SCREENING due on 11/19/2023 DIABETES SCREEN due on 11/20/2025 PROSTATE CANCER SCREENING DISCUSSION due on 09/21/2027 ASSESSMENT/PLAN: 1. Hospital discharge follow-up - ICD9: V67.59, ICD10: Z09 (primary diagnosis) - improved 2. Decreased hemoglobin - ICD9: 285.9, ICD10: R71.0 - will recheck next week - no red flag symptoms or exam findings - red flag symptoms discussed, verbalizes understanding - HEMOGLOBIN (HGB) - HEMATOCRIT (HCT) 3. Gastrointestinal hemorrhage, unspecified gastrointestinal hemorrhage type - ICD9: 578.9, ICD10: K92.2 - continue omeprazole - plan as in #2 4. Ileus (HCC) - ICD9: 560.1, ICD10: K56.7 - continue colace - no red flag symptoms or exam findings - red flag symptoms discussed, verbalizes understanding - follow-up as needed to ER with red flag symptoms 5. Small bowel obstruction (HCC) - ICD9: 560.9, ICD10: K56.609 - plan as in #4 Naima Sinha APRN.TOOL GRINDER SET UP OPERATOR GEAR Prescription instructions reviewed with patient as applicable. Patient advised if symptoms do not improve or if symptoms worsen sooner, to contact their primary care physician. Potential red flag symptoms discussed with the patient. Reviewed appropriate action plan to take if red flag symptoms occur. Patient agreeable to treatment plan. I spent a total of 30 minutes on the date of the service which included preparing to see the patient, [id number] patient care, completing clinical documentation, obtaining and/or reviewing separately obtained history, performing a medically appropriate examination, counseling and educating the patient/family/caregiver, and ordering medications, tests, or procedures. documented in this encounter [facility] 11-19-2022 Miscellaneous Notes Attempted to phone patient's spouse but received recording call could not be completed. [employer] message sent. I saw this come through this morning. I hope he gets better quickly and we will follow up with him on discharge. Patients calling wanting to let PCP know that patient was admitted to the [facility] yesterday for a small bowel obstruction and fluid in his abdomen. CRUZITO Perkins documented in this encounter [facility] 11-14-2022 Note Post Operative Note: PreOp Diagnosis: erectile dysfunction Post-Procedure Diagnosis: same Procedure: 1. insertion of 3 piece inflatable penile prosthesis 2. pharmacologic injection of penis for artificial erection Surgeon: Danica Resident/Fellow/Other Ticket Dispatcher: Jaja Anesthesia: general LMA I.V. Fluids: see anesthesia report Estimated Blood Loss (mL): 10 Specimen: no Complications: none Findings: right superificial submuscular 55 cc in 125 cc reservoir. narrow 16+1 bilaterally placed Coloplast Titan Narrow Base Patient Returned To/Condition: pacu Operative Report Dictated: Dictation: not applicable - note contains Operative Report Operative Report: PREOPERATIVE DIAGNOSIS: Erectile Dysfunction POSTOPERATIVE DIAGNOSIS: Erectile Dysfunction PROCEDURE: Placement of Coloplast Titan 3-piece inflatable penile prosthesis, Pharmacologic Injection of penis for artifical erection Cylinders: 16cm Rear tips:1cm bilaterally [place]:125 mL partially filled with 55 mL Site: right superifical submuscular INDICATIONS: The patient is a 70 year old male with a history of metastatic prostate cancer s/p RALP and RT/ADT, now on iADT with severe arterial insufficiency and corpora veno occlusive erectile dysfunction refractory to conservative management with PDE 5 inhibitors and intracavernosal therapy. Patient decided to undergo definitive surgical management with inflatable penile prosthesis. The risks (infection, erosion, decrease penile size, damage to other organs, device mechanical failure and need for replacement, etc) and benefits were explained and all questions and concerns were addressed. PROCEDURE: The patient was correctly identified in the preoperative holding area and informed consent was obtained and documented. He was examined in the preoperative area to ensure he had no scrotal or perineal rashes or skin infections. He received preoperative antibiotics in the form of vancomycin and gentamicin IV per pharmacy protocol. He was then brought to the operating room and placed on the table in supine position. After a universal timeout, SCD boots were placed and after adequate induction, general anesthesia was given. The external genitalia was shaved making sure not damage the scrotal or penile skin. A penile block was performed with a total of 15 mL of 0.5% Bupivacaine, and a pudendal block was performed a total of 15mL of 0.5% Bupivicine btotal ilaterally. The genitals were then washed with Dynahex. The patient was then prepped with Chloroprep and draped in a multilayer surgical fashion. A 16 Malian Fuentes catheter was placed sterilely on the field and the balloon inflated with 10 cc of sterile water. A retractor was brought onto the field and the urethral hook was placed at the 12 o'clock position of the meatus and penis was placed on stretch. A 3 cm incision was made sharply with the scalpel approximately one fingerbreadth below the penoscrotal junction in a transverse fashion. All surgeons then changed their top layer of gloves and hooks were then used with the retractor to properly expose the field. The incision was then brought down to the dartos fascia using Bovie electrocautery layer by layer until the corpora cavernosa were exposed. We then bluntly dissected between the corpora and scrotum in order to more easily expose the proximal corpora. We then performed an artifical erection with 50 cc of Marcaine and NS. 2-0 Vicryl holding sutures were placed and corporotomies were made using a scalpel. The corpora were dilated with the 9, 10, 11 Bird dilators. The patient's corpora were measured to be 9 cm in the proximal direction and 8 cm in the distal direction. We decided to place 16cm cylinders with 1 cm RTE. We then turned our attention to the placement of the reservoir. This was bluntly dissected on the right hand side by the surgeon through the external ring using the nasal speculum. The space was created through which we placed the reservoir. The reservoir was then filled with 90 mL of sterile saline. Copious amounts of antibiotic solution were used during this dissection and placement. Once this was complete, the penile prosthesis was prepared off the field and brought onto the field in a Verónica bag filled with antibiotic solution. The penile prosthesis cylinders were placed first proximally and then distally using a Aden needle on a Bertin passer. The holding sutures were then tied down to close the corporotomies. Copious amounts of antibiotic solution were used for irrigation during this part of the procedure. A Trini clamp and nasal speculum were used to develop a dartos pouch in which the penile prosthesis pump was placed. The pump was placed in the most dependent region of the scrotum and held down. The tubing was then connected using connectors from the penile prosthesis kit. The system was functional and a total of 55 cc (more content not included)... [facility] [place][note 2] 11-14-2022 History of Present illness Narrative 67 year old patient with history of prostate cancer s/p prostatectomy and ED now s/p IPP with Dr. Scales on 11/14/2022. He reports persistent nausea with vomiting since surgery. Reports abdominal distension and bloating. He has had 1 BM. He is passing flatus. He is unable to keep any medications down. He attempted to take Miralax but was unable to keep this down. No fevers or chills. Pain is well controlled. [id number] [place] Work Phone: 11-14-2022 Miscellaneous Notes Post Operative Note: PreOp Diagnosis: erectile dysfunction Post-Procedure Diagnosis: same Procedure: 1. insertion of 3 piece inflatable penile prosthesis 2. pharmacologic injection of penis for artificial erection Surgeon: Danica Resident/Fellow/Other Ticket Dispatcher: Jaja Anesthesia: general LMA I.V. Fluids: see anesthesia report Estimated Blood Loss (mL): 10 Specimen: no Complications: none Findings: right superificial submuscular 55 cc in 125 cc reservoir. narrow 16+1 bilaterally placed Coloplast Titan Narrow Base Patient Returned To/Condition: pacu Operative Report Dictated: Dictation: not applicable - note contains Operative Report Operative Report: PREOPERATIVE DIAGNOSIS: Erectile Dysfunction POSTOPERATIVE DIAGNOSIS: Erectile Dysfunction PROCEDURE: Placement of Coloplast Titan 3-piece inflatable penile prosthesis, Pharmacologic Injection of penis for artifical erection Cylinders: 16cm Rear tips: 1cm bilaterally [place]: 125 mL partially filled with 55 mL Site: right superifical submuscular INDICATIONS: The patient is a 70 year old male with a history of metastatic prostate cancer s/p RALP and RT/ADT, now on iADT with severe arterial insufficiency and corpora veno occlusive erectile dysfunction refractory to conservative management with PDE 5 inhibitors and intracavernosal therapy. Patient decided to undergo definitive surgical management with inflatable penile prosthesis. The risks (infection, erosion, decrease penile size, damage to other organs, device mechanical failure and need for replacement, etc) and benefits were explained and all questions and concerns were addressed. PROCEDURE: The patient was correctly identified in the preoperative holding area and informed consent was obtained and documented. He was examined in the preoperative area to ensure he had no scrotal or perineal rashes or skin infections. He received preoperative antibiotics in the form of vancomycin and gentamicin IV per pharmacy protocol. He was then brought to the operating room and placed on the table in supine position. After a universal timeout, SCD boots were placed and after adequate induction, general anesthesia was given. The external genitalia was shaved making sure not damage the scrotal or penile skin. A penile block was performed with a total of 15 mL of 0.5% Bupivacaine, and a pudendal block was performed a total of 15mL of 0.5% Bupivicine btotal ilaterally. The genitals were then washed with Dynahex. The patient was then prepped with Chloroprep and draped in a multilayer surgical fashion. A 16 Malian Fuentes catheter was placed sterilely on the field and the balloon inflated with 10 cc of sterile water. A retractor was brought onto the field and the urethral hook was placed at the 12 o'clock position of the meatus and penis was placed on stretch. A 3 cm incision was made sharply with the scalpel approximately one fingerbreadth below the penoscrotal junction in a transverse fashion. All surgeons then changed their top layer of gloves and hooks were then used with the retractor to properly expose the field. The incision was then brought down to the dartos fascia using Bovie electrocautery layer by layer until the corpora cavernosa were exposed. We then bluntly dissected between the corpora and scrotum in order to more easily expose the proximal corpora. We then performed an artifical erection with 50 cc of Marcaine and NS. 2-0 Vicryl holding sutures were placed and corporotomies were made using a scalpel. The corpora were dilated with the 9, 10, 11 Bird dilators. The patient's corpora were measured to be 9 cm in the proximal direction and 8 cm in the distal direction. We decided to place 16cm cylinders with 1 cm RTE. We then turned our attention to the placement of the reservoir. This was bluntly dissected on the right hand side by the surgeon through the external ring using the nasal speculum. The space was created through which we placed the reservoir. The reservoir was then filled with 90 mL of sterile saline. Copious amounts of antibiotic solution were used during this dissection and placement. Once this was complete, the penile prosthesis was prepared off the field and brought onto the field in a Verónica bag filled with antibiotic solution. The penile prosthesis cylinders were placed first proximally and then distally using a Aden needle on a Bertin passer. The holding sutures were then tied down to close the corporotomies. Copious amounts of antibiotic solution were used for irrigation during this part of the procedure. A Trini clamp and nasal speculum were used to develop a dartos pouch in which the penile prosthesis pump was placed. The pump was placed in the most dependent region of the scrotum and held down. The tubing was then connected using connectors from the penile prosthesis kit. The system was functional and a total of 55 cc remained in the system. Intervening tissue was closed using 2-0 Vicryl suture. A ANGELA drain was placed on the left hand side of the groin through a stab incision and placed dependently over the pump. The dartos was then closed in a running fashion using two layers of 2-0 Vicryl suture after copious amounts of antibiotic irrigation. The skin was then reapproximated using 3-0 Monocryl sutures in a simple interrupted fashion. The wound was then cleaned and dried and Dermabond was applied. Scrotal support and scrotal fluffs were placed on the patient. The Fuentes catheter was removed. The patient was then awoken from general anesthesia and seemed to tolerate the procedure quite well. [facility] to [facility] in stable condition. Attestation: Note Completion: I am a: Resident/Fellow Attending Attestation I was present for the entire procedure Electronic Signatures: Salazar Wilkinson (Resident)) (Signed 14-Nov-2022 16:26) Authored: Post Operative Note, Note Completion Juana Scales) (Signed 15-Nov-2022 07:32) Authored: Note Completion Co-Signer: Post Operative Note, Note Completion Last Updated: 15-Nov-2022 07:32 by Juana Scales) documented in this encounter [facility] Work Phone: 11-14-2022 Note Formatting of this n ote is different from the original. Post Operative Note: PreOp Diagnosis: erectile dysfunction Post-Procedure Diagnosis: same Procedure: 1. insertion of 3 piece inflatable penile prosthesis 2. pharmacologic injection of penis for artificial erection Surgeon: Danica Resident/Fellow/Other Ticket Dispatcher: Jaja Anesthesia: general LMA I.V. Fluids: see anesthesia report Estimated Blood Loss (mL): 10 Specimen: no Complications: none Findings: right superificial submuscular 55 cc in 125 cc reservoir. narrow 16+1 bilaterally placed Coloplast Titan Narrow Base Patient Returned To/Condition: pacu Operative Report Dictated: Dictation: not applicable - note contains Operative Report Operative Report: PREOPERATIVE DIAGNOSIS: Erectile Dysfunction POSTOPERATIVE DIAGNOSIS: Erectile Dysfunction PROCEDURE: Placement of Coloplast Titan 3-piece inflatable penile prosthesis, Pharmacologic Injection of penis for artifical erection Cylinders: 16cm Rear tips: 1cm bilaterally [place]: 125 mL partially filled with 55 mL Site: right superifical submuscular INDICATIONS: The patient is a 70 year old male with a history of metastatic prostate cancer s/p RALP and RT/ADT, now on iADT with severe arterial insufficiency and corpora veno occlusive erectile dysfunction refractory to conservative management with PDE 5 inhibitors and intracavernosal therapy. Patient decided to undergo definitive surgical management with inflatable penile prosthesis. The risks (infection, erosion, decrease penile size, damage to other organs, device mechanical failure and need for replacement, etc) and benefits were explained and all questions and concerns were addressed. PROCEDURE: The patient was correctly identified in the preoperative holding area and informed consent was obtained and documented. He was examined in the preoperative area to ensure he had no scrotal or perineal rashes or skin infections. He received preoperative antibiotics in the form of vancomycin and gentamicin IV per pharmacy protocol. He was then brought to the operating room and placed on the table in supine position. After a universal timeout, SCD boots were placed and after adequate induction, general anesthesia was given. The external genitalia was shaved making sure not damage the scrotal or penile skin. A penile block was performed with a total of 15 mL of 0.5% Bupivacaine, and a pudendal block was performed a total of 15mL of 0.5% Bupivicine btotal ilaterally. The genitals were then washed with Dynahex. The patient was then prepped with Chloroprep and draped in a multilayer surgical fashion. A 16 Malian Fuentes catheter was placed sterilely on the field and the balloon inflated with 10 cc of sterile water. A retractor was brought onto the field and the urethral hook was placed at the 12 o'clock position of the meatus and penis was placed on stretch. A 3 cm incision was made sharply with the scalpel approximately one fingerbreadth below the penoscrotal junction in a transverse fashion. All surgeons then changed their top layer of gloves and hooks were then used with the retractor to properly expose the field. The incision was then brought down to the dartos fascia using Bovie electrocautery layer by layer until the corpora cavernosa were exposed. We then bluntly dissected between the corpora and scrotum in order to more easily expose the proximal corpora. We then performed an artifical erection with 50 cc of Marcaine and NS. 2-0 Vicryl holding sutures were placed and corporotomies were made using a scalpel. The corpora were dilated with the 9, 10, 11 Bird dilators. The patient's corpora were measured to be 9 cm in the proximal direction and 8 cm in the distal direction. We decided to place 16cm cylinders with 1 cm RTE. We then turned our attention to the placement of the reservoir. This was bluntly dissected on the right hand side by the surgeon through the external ring using the nasal speculum. The space was created through which we placed the reservoir. The reservoir was then filled with 90 mL of sterile saline. Copious amounts of antibiotic solution were used during this dissection and placement. Once this was complete, the penile prosthesis was prepared off the field and brought onto the field in a Verónica bag filled with antibiotic solution. The penile prosthesis cylinders were placed first proximally and then distally using a Aden needle on a Bertin passer. The holding sutures were then tied down to close the corporotomies. Copious amounts of antibiotic solution were used for irrigation during this part of the procedure. A Trini clamp and nasal speculum were used to develop a dartos pouch in which the penile prosthesis pump was placed. The pump was placed in the most dependent region of the scrotum and held down. The tubing was then connected using connectors from the penile prosthesis kit. The system was functional and a total of 55 cc remained in the system. Intervening tissue was closed using 2-0 Vicryl suture. A ANGELA drain was placed on the left hand side of the groin through a stab incision and placed dependently over the pump. The dartos was then closed in a running fashion using two layers of 2-0 Vicryl suture after copious amounts of antibiotic irrigation. The skin was then reapproximated using 3-0 Monocryl sutures in a simple interrupted fashion. The wound was then cleaned and dried and Dermabond was applied. Scrotal support and scrotal fluffs were placed on the patient. The Fuentes catheter was removed. The patient was then awoken from general anesthesia and seemed to tolerate the procedure quite well. He was transferred to the stretcher and brought back to the PACU in stable condition. Attestation: Note Completion: I am a: Resident/Fellow Attending Attestation I was present for the entire procedure Electronic Signatures: Salazar Wilkinson (Resident)) (Signed 14-Nov-2022 16:26) Authored: Post Operative Note, Note Completion Juana Scales) (Signed 15-Nov-2022 07:32) Authored: Note Completion Co-Signer: Post Operative Note, Note Completion Last Updated: 15-Nov-2022 07:32 by Juana Scales) [facility] Work Phone: 11-14-2022 Note History & Physical R eviewed: I have reviewed the History and Physical dated: 04-Nov-2022 History and Physical reviewed and relevant findings noted. Patient examined to review pertinent physical findings.: No significant changes Home Medications Reviewed: no changes noted Allergies Reviewed: no changes noted ERAS (Enhanced Recovery After Surgery): ERAS Patient: no Consent: COVID-19 Consent: COVID-19 Risk ConsentSurgeon has reviewed campos risks related to the risk of laura COVID-19 and if they contract COVID-19 what the risks are. Attestation: Note Completion: I am a: Resident/Fellow Attending AttestationI saw and evaluated the patient. I personally obtained the campos and critical portions of the history and physical exam or was physically present for campos and critical portions performed by the resident/fellow. I reviewed the resident/fellows documentation and discussed the patient with the resident/fellow. I agree with the resident/fellows medical decision making as documented in the note. I personally evaluated the patient [id number] Electronic Signatures: Salazar Wilkinson ( (Resident)) (Signed 14-Nov-2022 05:16) Authored: History & Physical Reviewed, ERAS, Consent, Note Completion Juana Scales) (Signed 15-Nov-2022 07:29) Authored: Note Completion Co-Signer: History & Physical Reviewed, ERAS, Consent, Note Completion Last Updated: 15-Nov-2022 07:29 by Juana Scales) [facility]– [place][note 2] 11-14-2022 History and physical note History & Physical Reviewed: I have reviewed the History and Physical dated: 04-Nov-2022 History and Physical reviewed and relevant findings noted. Patient examined to review pertinent physical findings.: No significant changes Home Medications Reviewed: no changes noted Allergies Reviewed: no changes noted ERAS (Enhanced Recovery After Surgery): ERAS Patient: no Consent: COVID-19 Consent: COVID-19 Risk Consent Surgeon has reviewed campos risks related to the risk of laura COVID-19 and if they contract COVID-19 what the risks are. Attestation: Note Completion: I am a: Resident/Fellow Attending Attestation I saw and evaluated the patient. I personally obtained the campos and critical portions of the history and physical exam or was physically present for campos and critical portions performed by the resident/fellow. I reviewed the resident/fellow?s documentation and discussed the patient with the resident/fellow. I agree with the resident/fellow?s medical decision making as documented in the note. I personally evaluated the patient on 14-Nov-2022 Electronic Signatures: Salazar Wilkinson ( (Resident)) (Signed 14-Nov-2022 05:16) Authored: History & Physical Reviewed, ERAS, Consent, Note Completion Juana Scales) (Signed 15-Nov-2022 07:29) Authored: Note Completion Co-Signer: History & Physical Reviewed, ERAS, Consent, Note Completion Last Updated: 15-Nov-2022 07:29 by Juana Scales) [facility] Work Phone: 11-14-2022 History and physical note History & Physical Reviewed: I have reviewed the History and Physical dated: 04-Nov-2022 History and Physical reviewed and relevant findings noted. Patient examined to review pertinent physical findings.: No significant changes Home Medications Reviewed: no changes noted Allergies Reviewed: no changes noted ERAS (Enhanced Recovery After Surgery): ERAS Patient: no Consent: COVID-19 Consent: COVID-19 Risk Consent Surgeon has reviewed campos risks related to the risk of laura COVID-19 and if they contract COVID-19 what the risks are. Attestation: Note Completion: I am a: Resident/Fellow Attending Attestation I saw and evaluated the patient. I personally obtained the campos and critical portions of the history and physical exam or was physically present for campos and critical portions performed by the resident/fellow. I reviewed the resident/fellow?s documentation and discussed the patient with the resident/fellow. I agree with the resident/fellow?s medical decision making as documented in the note. I personally evaluated the patient on 14-Nov-2022 Electronic Signatures: Salazar Wilkinson (Resident)) (Signed 14-Nov-2022 05:16) Authored: History & Physical Reviewed, ERAS, Consent, Note Completion Juana Scales) (Signed 15-Nov-2022 07:29) Authored: Note Completion Co-Signer: History & Physical Reviewed, ERAS, Consent, Note Completion Last Updated: 15-Nov-2022 07:29 by Juana Scales) documented in this encounter [facility] Work Phone: 11-04-2022 Note History of Present I llness: Admission Reason: Penile prosthesis inflatable HPI: Date of Consult: 11.04.22 Referring Provider: Dr. Scales Surgery, Date, and Length: Penile prosthesis inflatable, 11/14/22, 2HRS Luis Angel Aguila is a 67 year-old male who presents to the [facility] for perioperative risk assessment prior to surgery. Patient presents with a primary diagnosis of erectile dysfunction which has been a problem x 2021. He is unable to attain or maintain erections stiff enough for penetration. He has a h/o prostate cancer which was treated in 2021 with prostatectomy. He has tried PDE-5i (Viagra and Cialis) without benefit. He has also attempted intracavernosal injections but only in the office and not at home. He refers the effect was not significant enough to warrant trying at home. Pt wishes to proceed with penile prosthesis as planned. This note was created in part upon personal review of patients medical records. Patient is scheduled to have Penile prosthesis inflatable Medical History HTN HLD COPD Right hip pain Neck pain Lumbar radiculopathy ED Prostate cancer -- grade group 2, inv seminal vesicles bilat, extraprostatic extension, PNI/LVI, positive surgical margin, [address] pos - [id number] ([place] 3+4) --s/p androgen deprivation therapy (ADT) and RT (11/2021-12/2021), prostatectomy (04/2021) Urinary incontinence Nicotine dependence --1/2 PPD x 60 years STOP BANG = HTN, >50, male = 3 Caprini = 6 Surgical History Prostatectomy (04/2021) appendectomy b/l inguinal hernia repair L total shoulder replacement L acromion repair R shoulder surgery x 3 right bicep tendon repair lumbar spine surgery cervical spine surgery Pt denies any past history of anesthetic complications such as PONV, awareness, prolonged sedation, dental damage, aspiration, cardiac arrest, difficult intubation, difficult I.V. access or unexpected hospital admissions. NO malignant hyperthermia and or pseudocholinesterase deficiency. No history of blood transfusions The patient is not a Jehovahs witness and will accept blood and blood products if medically indicated. Type and screen sent. Body Measurements Height 177.8CM Weights 11/04 7:41: Weight in kg (Weight (kg)) 79.4 11/04 7:41: Weight in lbs ((lbs)) 175 11/04 7:41: BMI (kg/m2) (BMI (kg/m2)) 25.116 Family History: Asthma: no Bleeding Disorder: no Cancer: yes mother = lung CAD: no Diabetes: no Hyperlipidemia: no Hypertension: yes brother PVD: no Stroke: no VTE: no Social History: Social History Smoking Statuslight user (uses <10 cig/day, OR <0.5 ppd, OR 1 can/pouch loose leaf tobacco per week, OR <0.5 vape pods per day) Alcohol Useoccasionally Drug Usedenies Social History EtOH 3x per year 1/2PPD x 60 years Allergies: morphine: Itching, Hives/Urticaria predniSONE: Other Medications Prior to Admission: 7 DAYS BEFORE SURGERY, ON ___11/07/22 , STOP these medications: Ocuvite oral tablet: 1 tab(s) orally once a day calcium citrate: 600 milligram(s) orally once a day Multiple Vitamins oral tablet: 1 tab(s) orally once a day meloxicam 15 mg oral tablet: 1 tab(s) orally once a day Aleve 220 mg oral capsule: 1 cap(s) orally every 12 hours, As Needed aspirin 81 mg oral tablet: 1 tab(s) orally once a day THE NIGHT BEFORE AND MORNING OF SURGERY HOLD THESE MEDS: lisinopril 20 mg oral tablet: 1 tab(s) orally once a day DAY OF SURGERY, TAKE THESE MEDICATIONS: simvastatin 40 mg oral tablet: 1 tab(s) orally once a day gabapentin 300 mg oral capsule: 1 cap(s) orally 3 times a day omeprazole 40 mg oral delayed release capsule: 1 cap(s) orally 2 times a day hydroCHLOROthiazide 25 mg oral tablet: 1 tab(s) orally once a day DAY OF SURGERY, DO NOT TAKE THESE MEDICATIONS: Stool Softener with Laxative: 1 tab(s) orally 2 times a day Vitamin D3 50 mcg (2000 intl units) oral tablet: 1 tab(s) orally once a day Please swish, gargle and spit Peridex mouthwash the evening prior to surgery and the morning of surgery. Review of Systems: Constitutional: NEGATIVE: Fever, Chills, Anorexia, Weight Loss, Malaise Eyes: NEGATIVE: Blurry Vision, Drainage, Diploplia, Redness, Vision Loss/ Change; COMMENTS: wears glasses ENMT: NEGATIVE: Nasal Discharge, Nasal Congestion, Ear Pain, Mouth Pain, Throat Pain Respiratory: NEGATIVE: Dry Cough, Productive Cough, Hemoptysis, Wheezing, Shortness of Breath Cardiac: NEGATIVE: Chest Pain, Dyspnea on Exertion, Orthopnea, Palpitations, Syncope; COMMENTS: Functional 4 Mets. 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 [facility] [place]note 2] 10-01-2022 Note Clinic Note: Education Assessment: Learning BarriersNo barriers TaughtPatient, Spouse Primary Language of PatientEnglish Primary Language of Campos LearnerEnglish Name of Campos Learner & RelationshipPatient and Silvia New Patient/Pre-treatment: Topic(s): New Patient Pre-Treatment Follow up plan, How to reach MD, Patient Guide MethodVerbal, Teach-Back, Handout EvaluationTeaches back, States general concept Handout(s) GivenHow to reach MD, Patient Guide Notesreviewed the phone tree, pt guide and follow up plan with pt and spouse, phone visit in 3 months, pt and spouse verbalized Electronic Signatures: Tiffany Vásquez (RN) (Signed 01-Oct-2022 17:17) Authored: Education Assessment, New Patient/Pre-treatment Last Updated: 01-Oct-2022 17:17 by Tiffany Vásquez (BRYSON) [facility] 09-26-2022 History of Present illness Narrative Patient scheduled for [facility] visit in relation to ankle injury. Patient advised we do not see workers comp cases and directed to [facility] for follow up evaluation documented in this encounter [facility] 09-20-2022 Note Clinic Note: Education Assessment: Primary Language of PatientEnglish Primary Language of Campos LearnerEnglish Name of Campos Learner & RelationshipPatient and Silvia Blood: Topic(s): BloodLab Results MethodVerbal, Teach-Back EvaluationTeaches back, States general concept NotesReviewed relevance of monitoring PSA and Testosterone levels as part of plan of care. Electronic Signatures: Bridgette Mcguire (RN) (Signed 20-Sep-2022 10:27) Authored: Education Assessment, Blood Last Updated: 20-Sep-2022 10:27 by Bridgette Mcguire (RN) [facility] 09-11-2022 History of Present illness Narrative 67 year old patient who presents with an elevated PSA. Hx of prostate cancer.Last visit 09/11/22:-will fu for doppler, already scheduled.-S/p prostatectomy.-Cystoscopy normal, completed today without complication.-Smoking cessation encouraged.Today's visit:#Pain with urination-Presents today for cystoscopy.#Elevated PSAUrinary Difficulties: yesUnexpected weight loss: yesBone pain: yes-lower back/hipsFamily history of prostate cancer: yes-selfPrevious biopsy:yes, prostatectomySmoker? yesVeteran with agent orange exposure: No#Erectile Dysfunction-Patient presents today for doppler 20 units of mix #5.-Duration: 2 years-Rigidity of erections:0 /10-Able to maintain until ejaculation:no-Morning Erections: absent-s/p prostatectomy: yes-Hernia Repair? yes as a child-on nitrates/NTG?: no-smoker? yes from 2 packs to 1/2 pack.-partner- -Tried PDE5is?: no---Viagra/sildenafil - response: No response after prostatectomy.---Cialis/tadalafil- response: No response after prostatectomy.-Tried penile injections: no- Libido/Desire: strong- been on Testosterone /anabolic steroids? yes-Pain or curvature in penis when erect: none-Premature or delayed ejaculation: none-Pain on straining during urination.Urinalysis 07/08/22: Within normal ranges.Urine Culture 09/03/22: Negative. [id number] Work Phone: 07-22-2022 Note Clinic Note: Education Assessment: Learning BarriersNo barriers TaughtPatient, Spouse Primary Language of PatientEnglish Primary Language of Campos LearnerEnglish Name of Campos Learner & RelationshipPatient and Silvia Nursing Note: Nursing NotePatient here with his Silvia. Patient recently moved here from [place]. He was previously treated at [facility] for his prostate CA with radical prostatectomy and XRT. Patient was only able to complete 4/6 doses due to severe diarrhea and significant weight loss. Patient is currently declining future XRT treatments. He is currently seeing Dr Cohn (med onc) and has been started on Q3mth Lupron injections - last dose 06/21/22. Plan was to start Abiraterone as well but patient cannot tolerate Prednisone and therefor has not started the regimen. I made Dr Cohn nurse partner Bridgette Mcguire aware of this. Patient and vocalized concerns over sexual dysfunction s/p radical prostatectomy. MD made aware and will discuss a penile implant and sexual health consult with them. Verenice Colon RN Electronic Signatures: Verenice Colon (RN) (Signed 22-Jul-2022 11:18) Authored: Education Assessment, Nursing Note Last Updated: 22-Jul-2022 11:18 by Verenice Colon (RN) [facility] 06-21-2022 Note Clinic Note: Education Assessment: Learning BarriersNo barriers TaughtPatient Primary Language of PatientEnglish Primary Language of Campos LearnerEnglish Infusion: Topic(s): InfusionFollow-up plan MethodVerbal, Teach-Back EvaluationTeaches back Medications: Topic(s): MedicationLupron MethodVerbal, Teach-Back EvaluationTeaches back Electronic Signatures: Aisha Cruz) (Signed 21-Jun-2022 10:42) Authored: Education Assessment, Infusion, Medications Last Updated: 21-Jun-2022 10:42 by Aisha Cruz (BRYSON) [facility] 06-21-2022 Note Clinic Note: Education Assessment: Learning BarriersNo barriers TaughtPatient, Spouse Primary Language of PatientEnglish Primary Language of Campos LearnerEnglish Blood: Topic(s): BloodLab Results MethodVerbal, Teach-Back EvaluationTeaches back, States general concept NotesReviewed the need for monthly labs when patient starts oral medication. PSA and Testosterone are monitored to see effects on control/surveillance of prostate cancer. Electronic Signatures: Bridgette McguireRN) (Signed 21-Jun-2022 09:46) Authored: Education Assessment, Blood Last Updated: 21-Jun-2022 09:46 by Bridgette Mcguire (RN) [facility] 06-12-2022 Note Clinic Note: Education Assessment: Learning BarriersNo barriers TaughtPatient, Spouse Primary Language of PatientEnglish Primary Language of Campos LearnerEnglish New Patient/Pre-treatment: Topic(s): New Patient Pre-Treatment Patient Guide MethodVerbal, Teach-Back, Handout EvaluationTeaches back, States general concept Handout(s) GivenHow to reach MD Patient Daysi Side Effect: MethodVerbal, Teach-Back EvaluationTeaches back, States general concept NotesInstructed patient to take his BP medication as ordered and to keep a journal of BP values while taking Zytiga as it may elevate BP further. Instructed patient to take 5mg Prednisone with Zytiga daily. Electronic Signatures: Bridgette Mcguire (RN) (Signed 12-Jun-2022 12:35) Authored: Education Assessment, New Patient/Pre-treatment, Side Effect Last Updated: 12-Jun-2022 12:35 by Bridgette Mcguire (RN) [facility] Evaluation note Diagnosis Encounter related to worker's compensation claim- Primary Other general medical examination for administrative purposes [facility] Diagnosis Hospital discharge follow-up- Primary Other follow-up examination Decreased hemoglobin Anemia, unspecified Gastrointestinal hemorrhage, unspecified gastrointestinal hemorrhage type Ileus (HCC) Paralytic ileus Small bowel obstruction (HCC) Unspecified intestinal obstruction [facility] Diagnosis 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)- Primary [facility] Diagnosis 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)- Primary S/P prostatectomy Other postprocedural status History of small bowel obstruction Personal history of other diseases of digestive system Straining during bowel movements Other symptoms involving digestive system Chronic obstructive pulmonary disease, unspecified COPD type (HCC) Essential hypertension Unspecified essential hypertension Mixed hyperlipidemia Gastroesophageal reflux disease, unspecified whether esophagitis present Primary osteoarthritis involving multiple joints Tobacco use Tobacco use disorder [facility] Diagnosis Encounter for follow-up- Primary S/P insertion of penile implant Lower urinary tract symptoms (LUTS) 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 dysfunction Stress incontinence of urine Smoker Tobacco use disorder documented in this encounter [facility] Work Phone: Evaluation note* Diagnosis Chronic obstructive pulmonary disease, unspecified COPD type (HCC) [facility] Ileus (HCC)- Primary Paralytic ileus Screening for colon cancer Special screening for malignant neoplasms, colon [facility] Diagnosis NO SHOW- Primary [facility]* Diagnosis Male erectile dysfunction, unspecified documented in this encounter [facility] Work Phone: Evaluation note* Diagnosis 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)- Primary 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) [facility] Diagnosis 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)- Primary [facility] Diagnosis Bilateral hip pain- Primary Pain in joint, pelvic region and thigh Chronic bilateral low back pain with bilateral sciatica [facility] Diagnosis Chronic bilateral low back pain with bilateral sciatica- Primary [facility] Diagnosis Lumbar spondylosis- Primary Lumbosacral spondylosis without myelopathy [facility] Diagnosis Lumbar spondylosis- Primary Lumbosacral spondylosis without myelopathy Primary osteoarthritis of both hips Primary localized osteoarthrosis, pelvic region and thigh [facility] Diagnosis Chronic bilateral low back pain, unspecified whether sciatica present [facility] Diagnosis Lumbar spondylosis- Primary Lumbosacral spondylosis without myelopathy [facility] Diagnosis Lumbar spondylosis- Primary Lumbosacral spondylosis without myelopathy Primary osteoarthritis of both hips Primary localized osteoarthrosis, pelvic region and thigh Spinal stenosis of lumbar region with neurogenic claudication Spinal stenosis, lumbar region, with neurogenic claudication Anxiety due to invasive procedure [facility] Diagnosis Essential hypertension- Primary Unspecified essential hypertension Hyponatremia Hyposmolality and/or hyponatremia Bilateral leg edema Edema [facility] Diagnosis Essential hypertension- Primary Unspecified essential hypertension Bilateral leg edema Edema [facility] Diagnosis 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)- Primary 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) documented in this encounter [facility] note* Diagnosis 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)- Primary documented in this encounter [facility] note* Diagnosis Essential hypertension Unspecified essential hypertension documented in this encounter [facility] note* Diagnosis Lumbar spondylosis- Primary Lumbosacral spondylosis without myelopathy documented in this encounter [facility] note* Diagnosis Essential hypertension- Primary Unspecified essential hypertension documented in this encounter [facility] note* Diagnosis Chronic bilateral low back pain, unspecified whether sciatica present- Primary Lumbar spondylosis Lumbosacral spondylosis without myelopathy Primary osteoarthritis of both hips Primary localized osteoarthrosis, pelvic region and thigh Spinal stenosis of lumbar region with neurogenic claudication Spinal stenosis, lumbar region, with neurogenic claudication Bursitis of right hip, unspecified bursa Myalgia Mylagia and myositis, unspecified documented in this encounter [facility] note* Diagnosis Essential hypertension- Primary Unspecified essential hypertension documented in this encounter [facility] note* Diagnosis Chronic bilateral low back pain without sciatica- Primary Gastroesophageal reflux disease, unspecified whether esophagitis present Panlobular emphysema (HCC) Other emphysema Essential hypertension Unspecified essential hypertension Mixed hyperlipidemia Nicotine use disorder Tobacco use disorder [facility] Diagnosis Chronic bilateral low back pain without sciatica- Primary Gastroesophageal reflux disease, unspecified whether esophagitis present Panlobular emphysema (HCC) Other emphysema Essential hypertension Unspecified essential hypertension Mixed hyperlipidemia Nicotine use disorder Tobacco use disorder [facility] Diagnosis Lung nodule- Primary Other diseases of lung, not elsewhere classified Aortic aneurysm, unspecified portion of aorta, unspecified whether ruptured (HCC) [facility] Diagnosis Abnormal CT scan- Primary Other nonspecific (abnormal) findings on radiological and other examinations of body structure Ascending aorta dilatation (HCC) Thoracic aneurysm without mention of rupture Hypertension, unspecified type Aneurysm of the aortic arch, 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) [facility] Diagnosis Hemoptysis- Primary [facility] Diagnosis Hemoptysis- Primary Lung nodule Other diseases of lung, not elsewhere classified [facility] Diagnosis Lung nodule- Primary Other diseases of lung, not elsewhere classified [facility] Diagnosis Ascending aorta enlargement (HCC)- Primary documented in this encounter [facility] note* Diagnosis Lung nodule- Primary Other diseases of lung, not elsewhere classified documented in this encounter [facility] note* Diagnosis Lung nodule Other diseases of lung, not elsewhere classified Hemoptysis Mixed hyperlipidemia- Primary Essential hypertension Unspecified essential hypertension Aortic aneurysm, unspecified portion of aorta, unspecified whether ruptured (HCC) Panlobular emphysema (HCC) Other emphysema Gastroesophageal reflux disease, unspecified whether esophagitis present General medical exam Unspecified general medical examination Personal history of tobacco use Personal history of tobacco use, presenting hazards to [facility] At low risk for fall Chronic bilateral low back pain without sciatica Lung nodule Other diseases of lung, not elsewhere classified Hemoptysis documented in this encounter [facility] note* Diagnosis Preop respiratory exam- Primary Pre-operative respiratory examination Lung nodule Other diseases of lung, not elsewhere classified Hemoptysis documented in this encounter [facility] note* Diagnosis Gastroesophageal reflux disease, unspecified whether esophagitis present- Primary Heartburn GERD (gastroesophageal reflux disease) Esophageal reflux documented in this encounter [facility] note* Diagnosis Gastroesophageal reflux disease, unspecified whether esophagitis present- Primary Heartburn GERD (gastroesophageal reflux disease) Esophageal reflux Gastroesophageal reflux disease, unspecified whether esophagitis present Heartburn documented in this encounter [facility] note* Diagnosis 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- Primary documented in this encounter [facility] note* Diagnosis Lung nodule- Primary Other diseases of lung, not elsewhere classified Chronic obstructive pulmonary disease, unspecified COPD type (HCC) Cigarette smoker Tobacco use disorder documented in this encounter [facility] note* Diagnosis 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)- Primary documented in this encounter [facility] note* Diagnosis Bilateral hip pain Pain in joint, pelvic region and thigh Chronic bilateral low back pain with bilateral sciatica documented in this encounter [facility] note* Diagnosis Chronic bilateral low back pain without sciatica- Primary Gastroesophageal reflux disease, unspecified whether esophagitis present Panlobular emphysema (HCC) Other emphysema Essential hypertension Unspecified essential hypertension Mixed hyperlipidemia Nicotine use disorder Tobacco use disorder Lung nodule- Primary Other diseases of lung, not elsewhere classified Aortic aneurysm, unspecified portion of aorta, unspecified whether ruptured (HCC) Mixed hyperlipidemia- Primary Essential hypertension Unspecified essential hypertension Aortic aneurysm, unspecified portion of aorta, unspecified whether ruptured (HCC) Panlobular emphysema (HCC) Other emphysema Gastroesophageal reflux disease, unspecified whether esophagitis present General medical exam Unspecified general medical examination Personal history of tobacco use Personal history of tobacco use, presenting hazards to health At low risk for fall Chronic bilateral low back pain without sciatica Aortic ectasia, thoracic (HCC)- Primary documented in this encounter [facility] note* Diagnosis Chronic bilateral low back pain without sciatica- Primary Gastroesophageal reflux disease, unspecified whether esophagitis present Panlobular emphysema (HCC) Other emphysema Essential hypertension Unspecified essential hypertension Mixed hyperlipidemia Nicotine use disorder Tobacco use disorder Lung nodule- Primary Other diseases of lung, not elsewhere classified Aortic aneurysm, unspecified portion of aorta, unspecified whether ruptured (HCC) Mixed hyperlipidemia- Primary Essential hypertension Unspecified essential hypertension Aortic aneurysm, unspecified portion of aorta, unspecified whether ruptured (HCC) Panlobular emphysema (HCC) Other emphysema Gastroesophageal reflux disease, unspecified whether esophagitis present General medical exam Unspecified general medical examination Personal history of tobacco use Personal history of tobacco use, presenting hazards to health At low risk for fall Chronic bilateral low back pain without sciatica Aneurysm of ascending aorta 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)- Primary Aortic ectasia, thoracic (HCC) documented in this encounter [facility] note* Diagnosis Chronic bilateral low back pain without sciatica- Primary Gastroesophageal reflux disease, unspecified whether esophagitis present Panlobular emphysema (HCC) Other emphysema Essential hypertension Unspecified essential hypertension Mixed hyperlipidemia Nicotine use disorder Tobacco use disorder Lung nodule- Primary Other diseases of lung, not elsewhere classified Aortic aneurysm, unspecified portion of aorta, unspecified whether ruptured (HCC) Mixed hyperlipidemia- Primary Essential hypertension Unspecified essential hypertension Aortic aneurysm, unspecified portion of aorta, unspecified whether ruptured (HCC) Panlobular emphysema (HCC) Other emphysema Gastroesophageal reflux disease, unspecified whether esophagitis present General medical exam Unspecified general medical examination Personal history of tobacco use Personal history of tobacco use, presenting hazards to health At low risk for fall Chronic bilateral low back pain without sciatica Aneurysm of ascending aorta 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)- Primary Aortic ectasia, thoracic (HCC) documented in this encounter [facility] note* Diagnosis Chronic bilateral low back pain without sciatica- Primary Gastroesophageal reflux disease, unspecified whether esophagitis present Panlobular emphysema (HCC) Other emphysema Essential hypertension Unspecified essential hypertension Mixed hyperlipidemia Nicotine use disorder Tobacco use disorder Lung nodule- Primary Other diseases of lung, not elsewhere classified Aortic aneurysm, unspecified portion of aorta, unspecified whether ruptured (HCC) Mixed hyperlipidemia- Primary Essential hypertension Unspecified essential hypertension Aortic aneurysm, unspecified portion of aorta, unspecified whether ruptured (HCC) Panlobular emphysema (HCC) Other emphysema Gastroesophageal reflux disease, unspecified whether esophagitis present General medical exam Unspecified general medical examination Personal history of tobacco use Personal history of tobacco use, presenting hazards to health At low risk for fall Chronic bilateral low back pain without sciatica Aneurysm of ascending aorta 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)- Primary Aortic ectasia, thoracic (HCC) documented in this encounter [facility] note* Diagnosis Chronic bilateral low back pain without sciatica- Primary Gastroesophageal reflux disease, unspecified whether esophagitis present Panlobular emphysema (HCC) Other emphysema Essential hypertension Unspecified essential hypertension Mixed hyperlipidemia Nicotine use disorder Tobacco use disorder Lung nodule- Primary Other diseases of lung, not elsewhere classified Aortic aneurysm, unspecified portion of aorta, unspecified whether ruptured (HCC) Mixed hyperlipidemia- Primary Essential hypertension Unspecified essential hypertension Aortic aneurysm, unspecified portion of aorta, unspecified whether ruptured (HCC) Panlobular emphysema (HCC) Other emphysema Gastroesophageal reflux disease, unspecified whether esophagitis present General medical exam Unspecified general medical examination Personal history of tobacco use Personal history of tobacco use, presenting hazards to health At low risk for fall Chronic bilateral low back pain without sciatica Aneurysm of ascending aorta 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)- Primary Aortic ectasia, thoracic (HCC) documented in this encounter [facility] note* Diagnosis Chronic bilateral low back pain without sciatica- Primary Gastroesophageal reflux disease, unspecified whether esophagitis present Panlobular emphysema (HCC) Other emphysema Essential hypertension Unspecified essential hypertension Mixed hyperlipidemia Nicotine use disorder Tobacco use disorder Lung nodule- Primary Other diseases of lung, not elsewhere classified Aortic aneurysm, unspecified portion of aorta, unspecified whether ruptured (HCC) Mixed hyperlipidemia- Primary Essential hypertension Unspecified essential hypertension Aortic aneurysm, unspecified portion of aorta, unspecified whether ruptured (HCC) Panlobular emphysema (HCC) Other emphysema Gastroesophageal reflux disease, unspecified whether esophagitis present General medical exam Unspecified general medical examination Personal history of tobacco use Personal history of tobacco use, presenting hazards to health At low risk for fall Chronic bilateral low back pain without sciatica Aneurysm of ascending aorta 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)- Primary Aortic ectasia, thoracic (HCC) documented in this encounter [facility] note* Diagnosis Chronic bilateral low back pain without sciatica- Primary Gastroesophageal reflux disease, unspecified whether esophagitis present Panlobular emphysema (HCC) Other emphysema Essential hypertension Unspecified essential hypertension Mixed hyperlipidemia Nicotine use disorder Tobacco use disorder Lung nodule- Primary Other diseases of lung, not elsewhere classified Aortic aneurysm, unspecified portion of aorta, unspecified whether ruptured (HCC) Mixed hyperlipidemia- Primary Essential hypertension Unspecified essential hypertension Aortic aneurysm, unspecified portion of aorta, unspecified whether ruptured (HCC) Panlobular emphysema (HCC) Other emphysema Gastroesophageal reflux disease, unspecified whether esophagitis present General medical exam Unspecified general medical examination Personal history of tobacco use Personal history of tobacco use, presenting hazards to health At low risk for fall Chronic bilateral low back pain without sciatica Chest pain, unspecified type- Primary documented in this encounter [facility] note* Diagnosis Chronic bilateral low back pain without sciatica- Primary Gastroesophageal reflux disease, unspecified whether esophagitis present Panlobular emphysema (HCC) Other emphysema Essential hypertension Unspecified essential hypertension Mixed hyperlipidemia Nicotine use disorder Tobacco use disorder Lung nodule- Primary Other diseases of lung, not elsewhere classified Aortic aneurysm, unspecified portion of aorta, unspecified whether ruptured (HCC) Mixed hyperlipidemia- Primary Essential hypertension Unspecified essential hypertension Aortic aneurysm, unspecified portion of aorta, unspecified whether ruptured (HCC) Panlobular emphysema (HCC) Other emphysema Gastroesophageal reflux disease, unspecified whether esophagitis present General medical exam Unspecified general medical examination Personal history of tobacco use Personal history of tobacco use, presenting hazards to health At low risk for fall Chronic bilateral low back pain without sciatica Atypical chest pain- Primary Other chest pain documented in this encounter [facility] note* Diagnosis Acute cough- Primary COPD with exacerbation (HCC) Obstructive chronic bronchitis with exacerbation documented in this encounter [facility] note* Diagnosis Lumbar spondylosis Lumbosacral spondylosis without myelopathy Spinal stenosis of lumbar region with neurogenic claudication Spinal stenosis, lumbar region, with neurogenic claudication Primary osteoarthritis of both hips Primary localized osteoarthrosis, pelvic region and thigh documented in this encounter [facility] note* Diagnosis Chronic obstructive pulmonary disease, unspecified COPD type (HCC) Mixed hyperlipidemia documented in this encounter [facility] note* Diagnosis Acute cough COPD with exacerbation (HCC) Obstructive chronic bronchitis with exacerbation documented in this encounter [facility] note* Diagnosis Prostate cancer (Multi)- Primary Malignant neoplasm of prostate documented in this encounter [facility] Work Phone: Evaluation note* Diagnosis Spinal stenosis of lumbar region with neurogenic claudication- Primary Spinal stenosis, lumbar region, with neurogenic claudication Lumbar spondylosis Lumbosacral spondylosis without myelopathy Primary osteoarthritis of both hips Primary localized osteoarthrosis, pelvic region and thigh Chronic bilateral low back pain, unspecified whether sciatica present [facility]* Diagnosis 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)- Primary [facility] Diagnosis Prostate cancer (Multi)- Primary Malignant neoplasm of prostate documented in this encounter [facility] Work Phone: Evaluation note* Diagnosis Prostate cancer (Multi) Malignant neoplasm of prostate documented in this encounter [facility] Work Phone: Evaluation note* Diagnosis Prostate cancer (Multi)- Primary Malignant neoplasm of prostate documented in this encounter [facility] Work Phone: Evaluation note* Diagnosis 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)- Primary Rising PSA level Elevated prostate specific antigen (PSA) documented [facility]* Diagnosis Lumbar radiculopathy- Primary Thoracic or lumbosacral neuritis or radiculitis, unspecified [facility]* Diagnosis Prostate cancer (Multi) Malignant neoplasm of prostate documented in this encounter [facility] Work Phone: Evaluation note* Diagnosis Prostate cancer (Multi) Malignant neoplasm of prostate documented in this encounter [facility] Work Phone: Evaluation note* Diagnosis Spinal stenosis of lumbar region with neurogenic claudication- Primary Spinal stenosis, lumbar region, with neurogenic claudication Lumbar radiculopathy Thoracic or lumbosacral neuritis or radiculitis, unspecified Lumbar spondylosis Lumbosacral spondylosis without myelopathy Pain in left hip Pain in joint, pelvic region and thigh Primary osteoarthritis of both hips Primary localized osteoarthrosis, pelvic region and thigh [facility] Diagnosis Pain in left hip Pain in joint, pelvic region and thigh documented in this encounter [facility] note* Diagnosis Trochanteric bursitis of left hip- Primary Enthesopathy of hip region Lumbar radiculopathy Thoracic or lumbosacral neuritis or radiculitis, unspecified Lumbar spondylosis Lumbosacral spondylosis without myelopathy Spinal stenosis of lumbar region with neurogenic claudication Spinal stenosis, lumbar region, with neurogenic claudication Pain in left hip Pain in joint, pelvic region and thigh documented in this encounter [facility] note* Diagnosis Chronic bilateral low back pain without sciatica- Primary Gastroesophageal reflux disease, unspecified whether esophagitis present Panlobular emphysema (HCC) Other emphysema Essential hypertension Unspecified essential hypertension Mixed hyperlipidemia Nicotine use disorder Tobacco use disorder Lung nodule- Primary Other diseases of lung, not elsewhere classified Aortic aneurysm, unspecified portion of aorta, unspecified whether ruptured (HCC) Mixed hyperlipidemia- Primary Essential hypertension Unspecified essential hypertension Aortic aneurysm, unspecified portion of aorta, unspecified whether ruptured (HCC) Panlobular emphysema (HCC) Other emphysema Gastroesophageal reflux disease, unspecified whether esophagitis present General medical exam Unspecified general medical examination Personal history of tobacco use Personal history of tobacco use, presenting hazards to health At low risk for fall Chronic bilateral low back pain without sciatica Lung nodule- Primary Other diseases of lung, not elsewhere classified documented in this encounter [facility] note* Diagnosis Trochanteric bursitis of left hip- Primary Enthesopathy of hip region documented in this encounter [facility] note* Diagnosis Spinal stenosis of lumbar region with neurogenic claudication Spinal stenosis, lumbar region, with neurogenic claudication documented in this encounter [facility] note* Diagnosis Spinal stenosis of lumbar region with neurogenic claudication- Primary Spinal stenosis, lumbar region, with neurogenic claudication Lumbar radiculopathy Thoracic or lumbosacral neuritis or radiculitis, unspecified Trochanteric bursitis of left hip Enthesopathy of hip region documented in this encounter [facility] note* Diagnosis Mixed hyperlipidemia documented in this encounter [facility] note* Diagnosis 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)- Primary Continuous dependence on cigarette smoking [facility]* Diagnosis Rising PSA level Elevated prostate specific antigen (PSA) 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) [facility] Diagnosis Chronic bilateral low back pain without sciatica- Primary Gastroesophageal reflux disease, unspecified whether esophagitis present Panlobular emphysema (HCC) Other emphysema Essential hypertension Unspecified essential hypertension Mixed hyperlipidemia Nicotine use disorder Tobacco use disorder Lung nodule- Primary Other diseases of lung, not elsewhere classified Aortic aneurysm, unspecified portion of aorta, unspecified whether ruptured (HCC) Mixed hyperlipidemia- Primary Essential hypertension Unspecified essential hypertension Aortic aneurysm, unspecified portion of aorta, unspecified whether ruptured (HCC) Panlobular emphysema (HCC) Other emphysema Gastroesophageal reflux disease, unspecified whether esophagitis present General medical exam Unspecified general medical examination Personal history of tobacco use Personal history of tobacco use, presenting hazards to health At low risk for fall Chronic bilateral low back pain without sciatica Chronic obstructive pulmonary disease, unspecified COPD type (HCC)- Primary Lung nodule Other diseases of lung, not elsewhere classified Cigarette smoker Tobacco use disorder [facility]* Diagnosis Rising PSA level- Primary Elevated prostate specific antigen (PSA) Prostate cancer metastatic to bone (HCC) [facility]* Diagnosis Prostate cancer metastatic to bone (HCC)- Primary [facility]* Diagnosis Rising PSA level Elevated prostate specific antigen (PSA) Prostate cancer metastatic to bone (HCC) [facility]* Diagnosis Spinal stenosis of lumbar region with neurogenic claudication- Primary Spinal stenosis, lumbar region, with neurogenic claudication Lumbar radiculopathy Thoracic or lumbosacral neuritis or radiculitis, unspecified Lumbar spondylosis Lumbosacral spondylosis without myelopathy Pain in left hip Pain in joint, pelvic region and thigh [facility] Diagnosis Prostate cancer metastatic to bone (HCC)- Primary [facility] Diagnosis Malignant neoplasm of prostate metastatic to bone (HCC)- Primary Malignant neoplasm of prostate 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) [facility] Diagnosis OPENED IN ERROR- Primary To allow closing an encounter opened in error (used in SmartSet) [facility]* Diagnosis Prostate cancer metastatic to bone (HCC)- Primary [facility]* Diagnosis YADIEL (acute kidney injury)- Primary Acute kidney failure, unspecified Malignant neoplasm of prostate metastatic to bone (HCC) Malignant neoplasm of prostate 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) [facility] Diagnosis YADIEL (acute kidney injury) Acute kidney failure, unspecified Malignant neoplasm of prostate metastatic to bone (HCC) Malignant neoplasm of prostate 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) [facility]* Diagnosis Spinal stenosis of lumbar region with neurogenic claudication Spinal stenosis, lumbar region, with neurogenic claudication [facility]* Diagnosis Mixed hyperlipidemia [facility]* Diagnosis Essential (primary) hypertension- Primary Unspecified essential hypertension Mixed hyperlipidemia Chronic obstructive pulmonary disease, unspecified COPD type (HCC) Nicotine dependence, cigarettes, uncomplicated 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) S/P prostatectomy Other postprocedural status [facility]* Diagnosis Malignant neoplasm of prostate metastatic to bone (HCC)- Primary Malignant neoplasm of prostate Bilateral hip pain Pain in joint, pelvic region and thigh 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 Spinal stenosis, lumbar region, with neurogenic claudication [facility]* Diagnosis Malignant neoplasm of prostate metastatic to bone (HCC) Malignant neoplasm of prostate Bilateral hip pain Pain in joint, pelvic region and thigh [facility]* Diagnosis Malignant neoplasm of prostate metastatic to bone (HCC)- Primary Malignant neoplasm of prostate Prostate cancer metastatic to bone (HCC) Vitamin D deficiency Unspecified vitamin D deficiency Other specified disorders of bone density and structure, multiple sites [facility]* Diagnosis Chronic obstructive pulmonary disease, unspecified COPD type (HCC) [facility]* Diagnosis Asthma-COPD overlap syndrome (HCC)- Primary Lung nodules Other nonspecific abnormal finding of lung field Prostate cancer metastatic to bone (HCC) Cigarette smoker Tobacco use disorder [facility]* Diagnosis Malignant neoplasm of prostate metastatic to bone (HCC)- Primary Malignant neoplasm of prostate Other closed fracture of left acetabulum with delayed healing, subsequent encounter Malignant neoplasm of prostate metastatic to bone (HCC) Malignant neoplasm of prostate Other closed fracture of left acetabulum with delayed healing, subsequent encounter [facility]* Diagnosis Malignant neoplasm of prostate metastatic to bone (HCC) Malignant neoplasm of prostate Other closed fracture of left acetabulum with delayed healing, subsequent encounter [facility] Diagnosis Malignant neoplasm of prostate metastatic to bone (HCC)- Primary Malignant neoplasm of prostate [facility] Diagnosis Malignant neoplasm of prostate metastatic to bone (HCC)- Primary Malignant neoplasm of prostate [facility]* Diagnosis Malignant neoplasm of prostate metastatic to bone (HCC)- Primary Malignant neoplasm of prostate [facility] Diagnosis 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, bilateral Presbyopia [facility]* Diagnosis Malignant neoplasm of prostate metastatic to bone (HCC)- Primary Malignant neoplasm of prostate 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) [facility]* Diagnosis Malignant neoplasm of prostate metastatic to bone (HCC)- Primary Malignant neoplasm of prostate Left hip pain Pain in joint, pelvic region and thigh 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) [facility]* Diagnosis Malignant neoplasm of prostate metastatic to bone (HCC)- Primary Malignant neoplasm of prostate [facility] Diagnosis Malignant neoplasm of prostate metastatic to bone (HCC)- Primary Malignant neoplasm of prostate [facility] Patient who presents with an elevated PSA * #Elevated PSA * Urinary Difficulties: yes * Unexpected weight loss: yes * Bone pain: yes-lower back/hips * Family history of prostate cancer: yes-self * Previous biopsy:yes, prostatectomy * Smoker? yes * with agent orange exposure: No * #Erectile Dysfunction * -Duration: 2 years * -Rigidity of erections:0 /10 * -Able to maintain until ejaculation:no * -Morning Erections: absent * -s/p prostatectomy: yes * -Hernia Repair? yes as a child * -on nitrates/NTG?: no * -smoker? yes from 2 packs to 1/2 pack. * -partner- * -Tried PDE5is?: no * ---Viagra/sildenafil - response: No response after prostatectomy. * ---Cialis/tadalafil- response: No response after prostatectomy. * -Tried penile injections: no * - Libido/Desire: strong * - been on Testosterone /anabolic steroids? yes * -Pain or curvature in penis when erect: none * -Premature or delayed ejaculation: none * -Pain on straining during urination. * Urinalysis 07/08/22: Within normal ranges. * Urine Culture 07/08/22: Negative. [facility] Work Phone: History of Present illness Narrative* Patient returns for follow-up. He was seen recently by Gil Muñoz. Has a history of prostate cancer and previous laminectomy done in the in his lumbar spine. He has had progressively worsening lower back pain with difficulty standing and walking. The pain radiates down his posterior thighs bilaterally. He is quite miserable at this point. He has not had any formal treatment for his lower back. * He is a current smoker, cutting down from 2 packs a day, smokes just under a pack a day currently. * On exam he does not have any focal neurologic deficits. Normal gait without assistive device. * I personally reviewed imaging studies of his lumbar spine. These demonstrate previous laminectomy from L3-5. He has good central decompression. There is degenerative scoliosis present with persistentlateral recess and foraminal stenosis from L2-5. * At this point I explained we should attempt some conservative measures. I recommended physical therapy and pain management referrals. I also discussed the importance of smoking cessation and told himin this he quit smoking he is not really a surgical candidate at all. * He can follow-up with me as needed if he does not improve and would like to pursue surgery. * This note was dictated using speech recognition software and was not corrected for spelling or grammatical errors. [facility] Work Phone: History of Present illness Narrative* Rodolfo Ariza MD - 12/01/2023 4:20 PM EDT Patient ID: Luis Angel Aguila is a 68 y.o. male. Diagnosis: metastatic PC HISTORY OF PRESENT ILLNESS: 67 yo man visiting from [place] (Dr. Luis Escobedo) here for prostate cancer: H/o htn, oa, mild COPD. 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 12/[address] 01/25 biopsy with grade group 3 prostate adenocarcinoma Bone scan neg 04/20/21 Prostatectomy grade group 2, inv seminal vesicles bilat, extraprostatic extension, PNI/LVI,positive surgical margin, [address] pos - [id number] ([place] 3+4) Post op PSA 18 05/29/21 - PSMA - LN +. / no distant disease. back to OR for vesicoureteral anastomosis for leak 06/2021 Lupron 22.5 mg x 2 - stopped d/t patient preference along with apalutamide - stopped d/t constipation and brain fog 11/07/21 - 12/07/21 EBRT whole pelvis and prostate bed boost - aborted early during third week d/t bowel toxicity (severe diarrhea, c diff neg, nausea and poor by mouth intake) (patients decision) Pt has been on intermittent ADT 03/14/23 - ADT locally 11/10/23 - negative FDG PET. PSA low with ADT. discontinue ADT per pt preference PSA 11/06/23 - 0.02 -- T 6 09/12/23 - 0.03 -- T < 12 06/13/23 - 0.03 03/10/23 - 0.45 -- T 883 02/06/23 - 0.37 OBJECTIVE: VS / Pain: There were no vitals taken for this visit. BSA: There is no height or weight on file to calculate BSA. Performance Status: ECOG Score: 0- Fully active, able to carry on all pre-disease performance w/o restriction. Assessment/Plan I personally saw patient and counselled all visit on his diagnosis, kamilla history and coordination ofhis care. This is a 68 y.o. male man known with LN+ PC on ADT (d/c zytiga/pred and apa s/t AEs) with T > 50 and low PSA and negative recent PSMA (June 2022). He had incomplete salvage XRT but aborted s/t bowel tox. He is discontinuing ADT per pt preference - understands R/A of this decision. He was found with some lung abn, but PET was negative and bronch results negative. He is smoker. CPM with labs in 3 months We discussed the clinical significance of diagnosis, goals of care and treatment plan in detail. Thank you for the opportunity to be involved in the care of Luis Angel Aguila. Please do not hesitate to reach out with any questions. Thank you. Rodolfo Ariza MD, Msc, [facility] Chair in Cancer Research Co-Leader Genitourinary () Disease Team Director of Medical Oncology Research Program [facility] sports information director [address], [address] [place] [id number] [email or web address] in this [facility] Work Phone: Reason for referral (narrative)* Outpatient Procedure (Routine) - Authorized Specialty Diagnoses / Procedures Referred By Contac t Referred To Contact [facility] Diagnoses Chronic obstructive pulmonary disease, unspecified COPD type (HCC) Procedures SPIROMETRY - BASELINE AND POST DILATOR BRNCDILAT RSPSE SPMTRY PRE&POST-BRNCDILAT ADMN Erik Cota MD [address] [place] [address] [facility] [place] [address] [place] [id number] Referral ID Status Reason Start Date Expiration Date Visits Requested Visits Authorized [id number] Authorized Auto-Generat ed Referral 3 03/01/2024 1 1 * Consult, Test, Treat (Routine) - Authorized Specialty Diagnoses / Procedures Referred By Contac t Referred To Contact Oncology Diagnoses 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) Procedures CONSULT TO ONCOLOGY OFFICE/OUTPATIENT NEW HIGH MDM 60-74 MINUTES Erik Cota MD [address] [place] [address] Referral ID Status Reason Start Date Expiration Date Visits Requested Visits Authorized [id number] Authorized PCP Requested Referral 3 01/31/2024 1 1 [facility] for referral (narrative)* Outpatient Procedure (Routine) - Closed Specialty Diagnoses / Procedures [facility] Diagnoses Screening for colon cancer Procedures COLONOSCOPY SCREENING COLONOSCOPY FLX DX W/COLLJ SPEC WHEN PFRMD Naima Sinha APRN.TOOL GRINDER SET UP OPERATOR GEAR [address] [place] [address] [facility] [place] [address] [place] [address] Referral ID Status Reason Start Date Expiration Date V isits Requested Visits Authorized [id number] Closed Auto-Generate d Referral 10/25/2022 10/26/2023 1 1 [facility] for referral (narrative)* Diagnostic Procedure Only (Routine) - Closed Specialty Diagnoses / Procedures [facility] Referred To Contact XR IMAGING Diagnoses Bilateral hip pain Procedures XR HIP BILATERAL 5V PEL/AP/LAT EACH HIP RADEX HIPS BILATERAL WITH PELVIS MINIMUM 5 VIEWS Naima Sinha APRN.CNP [address] [place] [address] [place] [address] Referral ID Status Reason Start Date Expiration Date V isits Requested Visits Authorized [id number] Closed Auto-Generate d Referral 03/17/2023 04/15/2024 1 1 * Diagnostic Procedure Only (Routine) - Closed Specialty Diagnoses / Procedures Referred By Contac t Referred To Contact XR IMAGING Diagnoses Chronic bilateral low back pain with bilateral sciatica Procedures XR LUMBAR GENERAL 3V AP/LAT/L5-S1 RADEX SPINE LUMBOSACRAL 2/3 VIEWS PodlogarNaima APRN.TOOL GRINDER SET UP OPERATOR GEAR [address] [place] [address] [place] [address] Referral ID Status Reason Start Date Expiration Date V isits Requested Visits Authorized [id number] Closed Auto-Generate d Referral 03/17/2023 04/15/2024 1 1 * Consult, Test, Treat (Routine) - Authorized Specialty Diagnoses / Procedures Referred By Contac t Referred To Contact Pain Management Diagnoses Bilateral hip pain Chronic bilateral low back pain with bilateral sciatica Procedures CONSULT TO PAIN MGT OFFICE/OUTPATIENT [facility] 60-74 MINUTES PodlogNaima montilla APRN.TOOL GRINDER SET UP OPERATOR GEAR [address] [place] [address] Referral ID Status Reason Start Date Expiration Date Visits Requested Visits Authorized [id number] Authorized PCP Requested Referral 03/16/2024 1 1 [facility] Diagnostic Procedure Only (Routine) - Closed Specialty Diagnoses / Procedures Referred By Contac t Referred To Contact XR IMAGING Diagnoses Bilateral hip pain Procedures XR HIP BILATERAL 5V PEL/AP/LAT EACH HIP RADEX HIPS BILATERAL WITH PELVIS MINIMUM 5 VIEWS PodlogarNaima APRN.TOOL GRINDER SET UP OPERATOR GEAR [address] [place] [address] [place] [address] Referral ID Status Reason Start Date Expiration Date V isits Requested Visits Authorized [id number] Closed Auto-Generate d Referral 03/17/2023 04/15/2024 1 1 * Diagnostic Procedure Only (Routine) - Closed Specialty Diagnoses / Procedures Referred By Contac t Referred To Contact XR IMAGING Diagnoses Chronic bilateral low back pain with bilateral sciatica Procedures XR LUMBAR GENERAL 3V AP/LAT/L5-S1 RADEX SPINE LUMBOSACRAL 2/3 VIEWS Naima Sinha APRN.CNP [address] [place] [address] [place] [address] Referral ID Status Reason Start Date Expiration Date V isits Requested Visits Authorized [id number] Closed Auto-Generate d Referral 03/17/2023 04/15/2024 1 1 [facility] for referral (narrative)* Diagnostic Procedure Only (Routine) - Authorized Specialty Diagnoses / Procedures Referred By Kiko morillo Referred To Contact MOLECULAR & FUNCTIONAL IMAGING Diagnoses Rising PSA level 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) Procedures NM PET/CT PROSTATE WHOLE BODY IMAGING PET IMAGING CT ATTENUATION SKULL BASE MID-THIGH Kavon Nino [address] [place] [address] Molecular & Functional Imaging [address] [place] [address] Referral ID Status Reason Start Date Expiration Date Visits Requested Visits Authorized [id number] Authorized Auto-Generat ed Referral 06/16/2024 04/17/2025 1 1 [facility] for referral (narrative)* Diagnostic Procedure Only (Routine) - Closed Specialty Diagnoses / Procedures Referred By Kiko morillo Referred To Contact XR IMAGING Diagnoses Pain in left hip Procedures XR HIP GENERAL 3V PELV/AP/LAT LEFT RADEX HIP UNILATERAL WITH PELVIS 2-3 VIEWS Alina Bryson APRN.TOOL GRINDER SET UP OPERATOR GEAR [address] [place] [address] [place] [address] Referral ID Status Reason Start Date Expiration Date V isits Requested Visits Authorized [id number] Closed Auto-Generate d Referral 05/13/2024 06/12/2025 1 1 [facility] for visit Narrative* Outpatient Procedure (Routine) - Closed Specialty Diagnoses / Procedures Referred By Contac t Referred To Contact [facility] Diagnoses Screening for colon cancer Procedures COLONOSCOPY SCREENING COLONOSCOPY FLX DX W/COLLJ SPEC WHEN PFRMD PodlogNaima montilla APRN.TOOL GRINDER SET UP OPERATOR GEAR [address] [place] [address] [facility] [address] [place] [address] Referral ID Status Reason Start Date Expiration Date V isits Requested Visits Authorized [id number] Closed Auto-Generate d Referral 10/25/2022 10/26/2023 1 1 [facility] for visit Narrative* Diagnostic Procedure Only (Routine) - Closed Specialty Diagnoses / Procedures Referred By Kiko t Referred To Contact XR IMAGING Diagnoses Chronic bilateral low back pain with bilateral sciatica Procedures XR LUMBAR GENERAL 3V AP/LAT/L5-S1 RADEX SPINE LUMBOSACRAL 2/3 VIEWS KalpeshlogNaima montilla APRN.TOOL GRINDER SET UP OPERATOR GEAR [address] [place] [address] [place] [address] Referral ID Status Reason Start Date Expiration Date V isits Requested Visits Authorized [id number] Closed Auto-Generate d Referral 03/17/2023 04/15/2024 1 1 [facility] for visit Narrative* Imaging (Routine) - Authorized Specialty Diagnoses / Procedures Referred By Kiko t Referred To Contact Radiology Diagnoses Prostate cancer (Multi) Procedures NM PET [place] [address] [place] [address] Phone: tel: fax: Referral ID Status Reason Start Date Expiration Date Visits Requested Visits Authorized [id number] Authorized Perform Procedure 03/10/2024 03/10/2025 3 3 [facility] Work Phone: [facility] for visit Narrative* Imaging (Routine) - Authorized Specialty Diagnoses / Procedures Referred By Graysonac t Referred To Contact Radiology Diagnoses Prostate cancer (Multi) Procedures NM PET [place] [address] [place] [address] Phone: tel: fax: Referral ID Status Reason Start Date Expiration Date Visits Requested Visits Authorized [id number] Authorized Perform Procedure 03/10/2024 03/10/2025 3 3 [facility] Work Phone: Reason for visit Narrative* Diagnostic Procedure Only (Routine) - Closed Specialty Diagnoses / Procedures Referred By Contac t Referred To Contact XR IMAGING Diagnoses Pain in left hip Procedures XR HIP GENERAL 3V PELV/AP/LAT LEFT RADEX HIP UNILATERAL WITH PELVIS 2-3 VIEWS Prebish, Alina, HEAD START DIRECTOR.TOOL GRINDER SET UP OPERATOR GEAR [address] [place] [address] [place] [address] Referral ID Status Reason Start Date Expiration Date V isits Requested Visits Authorized [id number] Closed Auto-Generate d Referral 05/13/2024 06/12/2025 1 1 [facility] for visit Narrative* Diagnostic Procedure Only (Routine) - Closed Specialty Diagnoses / Procedures Referred By Contac t Referred To Contact MOLECULAR & FUNCTIONAL IMAGING Diagnoses Rising PSA level 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) Procedures NM PET/CT PROSTATE WHOLE BODY IMAGING PET IMAGING CT ATTENUATION SKULL BASE MID-THIGH Nino, Kavon [address] [place] [address] Phone: tel: fax: Molecular Imaging [address] [place] [address] Phone: tel: Referral ID Status Reason Start Date Expiration Date V isits Requested Visits Authorized [id number] Closed Auto-Generate d Referral 06/16/2024 04/17/2025 1 1 [facility] for visit Narrative* Diagnostic Procedure Only (Routine) - Closed Specialty Diagnoses / Procedures Referred By Contac t Referred To Contact MOLECULAR & FUNCTIONAL IMAGING Diagnoses Rising PSA level 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) Procedures NM PET/CT PROSTATE WHOLE BODY IMAGING PET IMAGING CT ATTENUATION SKULL BASE MID-THIGH Nino, Kavon [address] [place] [address] Phone: tel: fax: Molecular Imaging [address] [place], [place] [address] Phone: tel: Referral ID Status Reason Start Date Expiration Date V isits Requested Visits Authorized [id number] Closed Auto-Generate d Referral 06/16/2024 04/17/2025 1 1 [facility] for visit Narrative* Diagnostic Procedure Only (Routine) - Closed Specialty Diagnoses / Procedures Referred By Contac t Referred To Contact US IMAGING Diagnoses YADIEL (acute kidney injury) Malignant neoplasm of prostate metastatic to bone (HCC) 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) Procedures US KIDNEY/BLADDER US RETROPERITONEAL REAL TIME W/IMAGE COMPLETE Monica Jung, DO [address] [place] [address] Phone: tel: fax: [place] [address] Referral ID Status Reason Start Date Expiration Date V isits Requested Visits Authorized [id number] Closed Auto-Generate d Referral 08/19/2024 09/18/2025 1 1 [facility] for visit Narrative* MRI/CT (Routine) - Closed Specialty Diagnoses / Procedures Referred By Contac t Referred To Contact MR IMAGING Diagnoses Malignant neoplasm of prostate metastatic to bone (HCC) Bilateral hip pain Procedures MRI HIP WO/W IVCON LEFT MRI ANY JT LOWER EXTREM W/O & W/CONTRAST MATRL Monica Jung, DO [address] [place] [address] Phone: tel: fax: MR IMAGING [id number] Referral ID Status Reason Start Date Expiration Date V isits Requested Visits Authorized [id number] Closed Auto-Generate d Referral 08/27/2024 09/26/2025 1 1 [facility] for visit Narrative* Diagnostic Procedure Only (Urgent) - Closed Specialty Diagnoses / Procedures Referred By Contac t Referred To Contact XR IMAGING Diagnoses Malignant neoplasm of prostate metastatic to bone (HCC) Other closed fracture of left acetabulum with delayed healing, subsequent encounter Procedures XR HIP GENERAL 3V PELV/AP/LAT LEFT RADEX HIP UNILATERAL WITH PELVIS 2-3 VIEWS Monica Jung, DO [address] [place] [address] Phone: tel: fax: [place] [address] Referral ID Status Reason Start Date Expiration Date V isits Requested Visits Authorized [id number] Closed Auto-Generate d Referral 09/27/2024 10/27/2025 1 1 [facility] [place] Prior Authorization (Routine) - Authorized Specialty Diagnoses / Procedures Referred By Contac t Referred To Contact Diagnoses Malignant neoplasm of prostate metastatic to bone (HCC) Monica Jung, [address] [place] [address] Phone: tel: fax: Hematology/Oncology [address] [place] [address] Phone: tel: fax: Referral ID Status Reason Start Date Expiration Date V isits Requested Visits Authorized [id number] Authorized 09/30/2024 12/29/2024 99 99 [facility] Summary Purpose Family History No Family History Records FoundNo Family History Records FoundNo Family History Records FoundNo Family History Records FoundNo Family History Records FoundNo Family History Records FoundNo Family History Records FoundNo Family History Records FoundNo Family History Records FoundNo Family History Records FoundNo Family History Records FoundNo Family History Records FoundNo Family History Records FoundNo Family History Records FoundNo Family History Records Found Advance Directives Documents on File Type Date Recorded Patient Production Weigher Expl anation Healthcare Power of Atty 06/14/2022 10:17 AM Healthcare Power of Atty 06/14/2022 Documents on File Type Date Recorded Patient Production Weigher Expl anation Healthcare Power of Atty 06/14/2022 10:17 AM Healthcare Power of Atty 06/14/2022 Chief Complaint NPVLow back pain. MRI review.Doppler 20 units of mix #5.POV TOVFUV, IPP Medications Administered Section Inactive Administered Medications - up to 3 most recent administrations Medication Order MAR Action Action Date Dose Rate Site diphenhydrAMINE 12.5-50 mg injection (BENADRYL) 12.5-50 mg, INTRAVENOUS, DIRECTED, Starting on Janae 12/12/22 at 1030, Until Janae 12/12/22 at 1429, DOSING DIRECTED BY PHYSICIAN FOR PROCEDURAL SEDATION ONLY, Intraprocedure Given 12/12/2022 10:19 AM EDT 50 mg fentaNYL 50 mcg/mL 25-100 mcg injection (SUBLIMAZE) 25-100 mcg, INTRAVENOUS, DIRECTED, Starting on Janae 12/12/22 at 1030, Until Janae 12/12/22 at 1429, DOSING DIRECTED BY PHYSICIAN FOR PROCEDURAL SEDATION ONLY, Intraprocedure Given 12/12/2022 10:17 AM EDT 50 mcg lactated ringers iv infusion 30 mL/hr, INTRAVENOUS, CONTINUOUS, Starting on Janae 12/12/22 at 1000, Until Janae 12/12/22 at 1150, Preprocedure New Bag/Syringe/Bottle 12/12/2022 9:55 AM EDT 30 mL/hr 30 mL/hr midazolam 1-5 mg injection (VERSED) 1-5 mg, INTRAVENOUS, DIRECTED, Starting on Janae 12/12/22 at 1030, Until Janae 12/12/22 at 1429, DOSING DIRECTED BY PHYSICIAN FOR PROCEDURAL SEDATION ONLY, Intraprocedure Given 12/12/2022 10:22 AM EDT 2 mg Given 12/12/2022 10:17 AM EDT 3 mg Inactive Administered Medications - up to 3 most recent administrations Medication Order MAR Action Action Date Dose Rate Site leuprolide 22.5 mg injection (LUPRON DEPOT) 22.5 mg, INTRAMUSCULAR, ONCE, 1 dose, On Fri03/14/23 at 1130, Hazardous Chemotherapy Drug: Use appropriate PPE. Given 03/14/2023 11:27 AM EST 22.5 mg Buttocks, Right Reason for Referral Specialty Diagnoses / Procedures Referred By Kiko morillo Referred To Contact MR IMAGING Diagnoses Chronic bilateral low back pain, unspecified whether sciatica present Procedures MRI LUMBAR SPINE WO IVCON MRI SPINAL CANAL LUMBAR W/O CONTRAST MATERIAL Hector Ritchie MD [address] [place] [address] [place] [address] Referral ID Status Reason Start Date Expiration Date V isits Requested Visits Authorized [id number] Closed Auto-Generate d Referral 05/01/2023 05/30/2024 1 1 Specialty Diagnoses / Procedures Referred By Kiko morillo Referred To Contact Diagnoses Anxiety due to invasive procedure Cintia Martin PA-C [address] [address] Referral ID Status Reason Start Date Expiration Date V isits Requested Visits Authorized [id number] Pending Review 1 1 Specialty Diagnoses / Procedures Referred By Contac t Referred To Contact Radiology Diagnoses Essential hypertension Procedures US Renal and Bladder Gildardo Foster CNP [address] [place] [address] Referral ID Status Reason Start Date Expiration Date V isits Requested Visits Authorized [id number] Authorized 08/12/2023 08/11/2024 1 1 Specialty Diagnoses / Procedures Referred By Contac t Referred To Contact Radiology Diagnoses Nicotine use disorder Procedures CT Lung Cancer Screening Gildardo Foster CNP [address] [place] [address] Referral ID Status Reason Start Date Expiration Date V isits Requested Visits Authorized [id number] Authorized 08/12/2023 08/11/2024 1 1 Specialty Diagnoses / Procedures Referred By Contac t Referred To Contact Radiology Diagnoses Nicotine use disorder Procedures CT Lung Cancer Screening Gildardo Foster CNP [address] [place] [address] [phone] Specialty Diagnoses / Procedures Referred By Contac t Referred To Contact Cardiology Diagnoses Aortic aneurysm, unspecified portion of aorta, unspecified whether ruptured (HCC) Gildardo Foster CNP [address] [place] [address] Referral ID Status Reason Start Date Expiration Date V isits Requested Visits Authorized [id number] Authorized 08/28/2023 08/27/2024 1 1 Specialty Diagnoses / Procedures Referred By Contac t Referred To Contact Pulmonology Diagnoses Lung nodule Gildardo Foster CNP [address] [place] [address] Yon Quinteros MD [address] [place] [address] Referral ID Status Reason Start Date Expiration Date V isits Requested Visits Authorized [id number] Authorized 08/28/2023 08/27/2024 1 1 Specialty Diagnoses / Procedures Referred By Contac t Referred To Contact Cardiology Diagnoses Ascending aorta dilatation (HCC) Hypertension, unspecified type Abnormal CT scan Aneurysm of the aortic arch, 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) Procedures Echocardiogram complete Isai Bazan PA-C [address] [place] [address] Referral ID Status Reason Start Date Expiration Date V isits Requested Visits Authorized [id number] Authorized 09/04/2023 09/03/2024 1 1 Specialty Diagnoses / Procedures Referred By Contac t Referred To Contact Pulmonology Diagnoses Lung nodule Hemoptysis Yon Quinteros MD [address] [place] [address] Frank Quinteros MD [address] [place] [address] Referral ID Status Reason Start Date Expiration Date V isits Requested Visits Authorized [id number] Authorized 09/24/2023 09/23/2024 1 1 Specialty Diagnoses / Procedures Referred By Contac t Referred To Contact Radiology Diagnoses Lung nodule Procedures PET Tumor Imaging [place] [address] [place] [address] Referral ID Status Reason Start Date Expiration Date V isits Requested Visits Authorized [id number] New Request 09/24/2023 09/23/2024 4 4 Specialty Diagnoses / Procedures Referred By Contac t Referred To Contact Radiology Diagnoses Lung nodule Procedures CT Chest Without Contrast Linda, Rosalinda Nunez CNP [address] [facility] [address] [place] [address] Referral ID Status Reason Start Date Expiration Date V isits Requested Visits Authorized [id number] Pending Review 09/26/2023 09/25/2024 1 1 Specialty Diagnoses / Procedures Referred By Contac t Referred To Contact Radiology Diagnoses Lung nodule Procedures CT Chest Without Contrast Yon Quinteros MD [address] [place] [address] Referral ID Status Reason Start Date Expiration Date V isits Requested Visits Authorized [id number] Pending Review 01/06/2024 01/05/2025 1 1 Specialty Diagnoses / Procedures Referred By Contac t Referred To Contact General Surgery Diagnoses Gastroesophageal reflux disease, unspecified whether esophagitis present Gildardo Foster, TOOL GRINDER SET UP OPERATOR GEAR [address] [place] [address] [facility] [address] [facility] Medical Office Building, 5th [place] [address] Referral ID Status Reason Start Date Expiration Date V isits Requested Visits Authorized [id number] Authorized 10/30/2023 10/29/2024 1 1 Additional Source Comments (unrecognized sect ion and content) No Status Records FoundNo Status Records FoundNo Status Records FoundNo Status Records FoundNo Status Records FoundNo Status Records FoundNo Status Records FoundNo Status Records FoundNo Status Records FoundNo Status Records FoundNo Status Records FoundNo Status Records FoundNo Status Records FoundNo Status Records FoundNo Status Records Found INFORMATION SOURCE (unrecogn ized section and content) DATE CREATED AUTHOR 07/18/2022 [facility] DATE CREATED AUTHOR AUTHOR'S ORGANIZ ATION 09/17/2022 [facility] DATE CREATED AUTHOR AUTHOR'S ORGANIZ ATION 11/20/2022 [facility] [place][note 2] DATE CREATED AUTHOR AUTHOR'S ORGANIZ ATION 11/20/2022 [facility] DATE CREATED AUTHOR AUTHOR'S ORGANIZ ATION 12/26/2022 [facility] DATE CREATED AUTHOR AUTHOR'S ORGANIZ ATION 12/28/2022 [facility] DATE CREATED AUTHOR AUTHOR'S ORGANIZ ATION 02/08/2023 [facility] DATE CREATED AUTHOR AUTHOR'S ORGANIZ ATION 01/06/2024 [facility] DATE CREATED AUTHOR AUTHOR'S ORGANIZ ATION [facility] DATE CREATED AUTHOR AUTHOR'S ORGANIZ ATION 05/01/2024 [facility] DATE CREATED AUTHOR AUTHOR'S ORGANIZ ATION 05/24/2024 [facility] DATE CREATED AUTHOR AUTHOR'S ORGANIZ ATION 07/10/2024 [facility] DATE CREATED AUTHOR AUTHOR'S ORGANIZ ATION 07/11/2024 [facility] DATE CREATED AUTHOR AUTHOR'S ORGANIZ ATION 08/17/2024 [facility] DATE CREATED AUTHOR AUTHOR'S ORGANIZ ATION 11/03/2024 [facility] Source Comments (unrecognize d section and content) In the event this informatio n is protected by the Federal Confidentiality of Alcohol and Drug Abuse Patient Records regulations: The Federal rules restrict any use of the information to criminally investigate or prosecute any alcohol or drug abuse patient.[facility] the event this information is protected by the Federal Confidentiality of Alcohol and Drug Abuse Patient Records regulations: The Federal rules restrict any use of the information to criminally investigate or prosecute any alcohol or drug abuse patient.[facility] the event this information is protected by the Federal Confidentiality of Alcohol and Drug Abuse Patient Records regulations: The Federal rules restrict any use of the information to criminally investigate or prosecute any alcohol or drug abuse patient.[facility] the event this information is protected by the Federal Confidentiality of Alcohol and Drug Abuse Patient Records regulations: The Federal rules restrict any use of the information to criminally investigate or prosecute any alcohol or drug abuse patient.[facility] the event this information is protected by the Federal Confidentiality of Alcohol and Drug Abuse Patient Records regulations: The Federal rules restrict any use of the information to criminally investigate or prosecute any alcohol or drug abuse patient.[facility] the event this information is protected by the Federal Confidentiality of Alcohol and Drug Abuse Patient Records regulations: The Federal rules restrict any use of the information to criminally investigate or prosecute any alcohol or drug abuse patient.[facility] the event this information is protected by the Federal Confidentiality of Alcohol and Drug Abuse Patient Records regulations: The Federal rules restrict any use of the information to criminally investigate or prosecute any alcohol or drug abuse patient.[facility] the event this information is protected by the Federal Confidentiality of Alcohol and Drug Abuse Patient Records regulations: The Federal rules restrict any use of the information to criminally investigate or prosecute any alcohol or drug abuse patient.[facility] the event this information is protected by the Federal Confidentiality of Alcohol and Drug Abuse Patient Records regulations: The Federal rules restrict any use of the information to criminally investigate or prosecute any alcohol or drug abuse patient.[facility] the event this information is protected by the Federal Confidentiality of Alcohol and Drug Abuse Patient Records regulations: The Federal rules restrict any use of the information to criminally investigate or prosecute any alcohol or drug abuse patient.[facility] the event this information is protected by the Federal Confidentiality of Alcohol and Drug Abuse Patient Records regulations: The Federal rules restrict any use of the information to criminally investigate or prosecute any alcohol or drug abuse patient.[facility] the event this information is protected by the Federal Confidentiality of Alcohol and Drug Abuse Patient Records regulations: The Federal rules restrict any use of the information to criminally investigate or prosecute any alcohol or drug abuse patient.[facility] the event this information is protected by the Federal Confidentiality of Alcohol and Drug Abuse Patient Records regulations: The Federal rules restrict any use of the information to criminally investigate or prosecute any alcohol or drug abuse patient.[facility] the event this information is protected by the Federal Confidentiality of Alcohol and Drug Abuse Patient Records regulations: The Federal rules restrict any use of the information to criminally investigate or prosecute any alcohol or drug abuse patient.[facility] the event this information is protected by the Federal Confidentiality of Alcohol and Drug Abuse Patient Records regulations: The Federal rules restrict any use of the information to criminally investigate or prosecute any alcohol or drug abuse patient.[facility] the event this information is protected by the Federal Confidentiality of Alcohol and Drug Abuse Patient Records regulations: The Federal rules restrict any use of the information to criminally investigate or prosecute any alcohol or drug abuse patient.[facility] [place] the event this information is protected by the Federal Confidentiality of Alcohol and Drug Abuse Patient Records regulations: The Federal rules restrict any use of the information to criminally investigate or prosecute any alcohol or drug abuse patient.[facility] [place]In the event this information is protected by the Federal Confidentiality of Alcohol and Drug Abuse Patient Records regulations: The Federal rules restrict any use of the information to criminally investigate or prosecute any alcohol or drug abuse patient.[facility] [place]In the event this information is protected by the Federal Confidentiality of Alcohol and Drug Abuse Patient Records regulations: The Federal rules restrict any use of the information to criminally investigate or prosecute any alcohol or drug abuse patient.[facility] [place]In the event this information is protected by the Federal Confidentiality of Alcohol and Drug Abuse Patient Records regulations: The Federal rules restrict any use of the information to criminally investigate or prosecute any alcohol or drug abuse patient.[facility] [place]In the event this information is protected by the Federal Confidentiality of Alcohol and Drug Abuse Patient Records regulations: The Federal rules restrict any use of the information to criminally investigate or prosecute any alcohol or drug abuse patient.[facility] [place]In the event this information is protected by the Federal Confidentiality of Alcohol and Drug Abuse Patient Records regulations: The Federal rules restrict any use of the information to criminally investigate or prosecute any alcohol or drug abuse patient.[facility] [place]In the event this information is protected by the Federal Confidentiality of Alcohol and Drug Abuse Patient Records regulations: The Federal rules restrict any use of the information to criminally investigate or prosecute any alcohol or drug abuse patient.[facility] [place]In the event this information is protected by the Federal Confidentiality of Alcohol and Drug Abuse Patient Records regulations: The Federal rules restrict any use of the information to criminally investigate or prosecute any alcohol or drug abuse patient.[facility] [place]In the event this information is protected by the Federal Confidentiality of Alcohol and Drug Abuse Patient Records regulations: The Federal rules restrict any use of the information to criminally investigate or prosecute any alcohol or drug abuse patient.[facility] [place]In the event this information is protected by the Federal Confidentiality of Alcohol and Drug Abuse Patient Records regulations: The Federal rules restrict any use of the information to criminally investigate or prosecute any alcohol or drug abuse patient.[facility] [place]In the event this information is protected by the Federal Confidentiality of Alcohol and Drug Abuse Patient Records regulations: The Federal rules restrict any use of the information to criminally investigate or prosecute any alcohol or drug abuse patient.[facility] [place]In the event this information is protected by the Federal Confidentiality of Alcohol and Drug Abuse Patient Records regulations: The Federal rules restrict any use of the information to criminally investigate or prosecute any alcohol or drug abuse patient.[facility] [place]In the event this information is protected by the Federal Confidentiality of Alcohol and Drug Abuse Patient Records regulations: The Federal rules restrict any use of the information to criminally investigate or prosecute any alcohol or drug abuse patient.[facility] [place]In the event this information is protected by the Federal Confidentiality of Alcohol and Drug Abuse Patient Records regulations: The Federal rules restrict any use of the information to criminally investigate or prosecute any alcohol or drug abuse patient.[facility] [place]In the event this information is protected by the Federal Confidentiality of Alcohol and Drug Abuse Patient Records regulations: The Federal rules restrict any use of the information to criminally investigate or prosecute any alcohol or drug abuse patient.[facility] [place]In the event this information is protected by the Federal Confidentiality of Alcohol and Drug Abuse Patient Records regulations: The Federal rules restrict any use of the information to criminally investigate or prosecute any alcohol or drug abuse patient.[facility] [place]In the event this information is protected by the Federal Confidentiality of Alcohol and Drug Abuse Patient Records regulations: The Federal rules restrict any use of the information to criminally investigate or prosecute any alcohol or drug abuse patient.[facility] [place]In the event this information is protected by the Federal Confidentiality of Alcohol and Drug Abuse Patient Records regulations: The Federal rules restrict any use of the information to criminally investigate or prosecute any alcohol or drug abuse patient.[facility] [place]In the event this information is protected by the Federal Confidentiality of Alcohol and Drug Abuse Patient Records regulations: The Federal rules restrict any use of the information to criminally investigate or prosecute any alcohol or drug abuse patient.[facility] [place]In the event this information is protected by the Federal Confidentiality of Alcohol and Drug Abuse Patient Records regulations: The Federal rules restrict any use of the information to criminally investigate or prosecute any alcohol or drug abuse patient.[facility] [place]In the event this information is protected by the Federal Confidentiality of Alcohol and Drug Abuse Patient Records regulations: The Federal rules restrict any use of the information to criminally investigate or prosecute any alcohol or drug abuse patient.[facility] [place]In the event this information is protected by the Federal Confidentiality of Alcohol and Drug Abuse Patient Records regulations: The Federal rules restrict any use of the information to criminally investigate or prosecute any alcohol or drug abuse patient.[facility] [place]In the event this information is protected by the Federal Confidentiality of Alcohol and Drug Abuse Patient Records regulations: The Federal rules restrict any use of the information to criminally investigate or prosecute any alcohol or drug abuse patient.[facility] [place]In the event this information is protected by the Federal Confidentiality of Alcohol and Drug Abuse Patient Records regulations: The Federal rules restrict any use of the information to criminally investigate or prosecute any alcohol or drug abuse patient.[facility] [place]In the event this information is protected by the Federal Confidentiality of Alcohol and Drug Abuse Patient Records regulations: The Federal rules restrict any use of the information to criminally investigate or prosecute any alcohol or drug abuse patient.[facility] [place]In the event this information is protected by the Federal Confidentiality of Alcohol and Drug Abuse Patient Records regulations: The Federal rules restrict any use of the information to criminally investigate or prosecute any alcohol or drug abuse patient.[facility] [place]In the event this information is protected by the Federal Confidentiality of Alcohol and Drug Abuse Patient Records regulations: The Federal rules restrict any use of the information to criminally investigate or prosecute any alcohol or drug abuse patient.[facility] [place]In the event this information is protected by the Federal Confidentiality of Alcohol and Drug Abuse Patient Records regulations: The Federal rules restrict any use of the information to criminally investigate or prosecute any alcohol or drug abuse patient.[facility] [place]In the event this information is protected by the Federal Confidentiality of Alcohol and Drug Abuse Patient Records regulations: The Federal rules restrict any use of the information to criminally investigate or prosecute any alcohol or drug abuse patient.[facility] [place]In the event this information is protected by the Federal Confidentiality of Alcohol and Drug Abuse Patient Records regulations: The Federal rules restrict any use of the information to criminally investigate or prosecute any alcohol or drug abuse patient.[facility] [place]In the event this information is protected by the Federal Confidentiality of Alcohol and Drug Abuse Patient Records regulations: The Federal rules restrict any use of the information to criminally investigate or prosecute any alcohol or drug abuse patient.[facility] [place]In the event this information is protected by the Federal Confidentiality of Alcohol and Drug Abuse Patient Records regulations: The Federal rules restrict any use of the information to criminally investigate or prosecute any alcohol or drug abuse patient.[facility] [place]In the event this information is protected by the Federal Confidentiality of Alcohol and Drug Abuse Patient Records regulations: The Federal rules restrict any use of the information to criminally investigate or prosecute any alcohol or drug abuse patient.[facility] [place]In the event this information is protected by the Federal Confidentiality of Alcohol and Drug Abuse Patient Records regulations: The Federal rules restrict any use of the information to criminally investigate or prosecute any alcohol or drug abuse patient.[facility] [place]In the event this information is protected by the Federal Confidentiality of Alcohol and Drug Abuse Patient Records regulations: The Federal rules restrict any use of the information to criminally investigate or prosecute any alcohol or drug abuse patient.[facility] [place]In the event this information is protected by the Federal Confidentiality of Alcohol and Drug Abuse Patient Records regulations: The Federal rules restrict any use of the information to criminally investigate or prosecute any alcohol or drug abuse patient.[facility] [place]In the event this information is protected by the Federal Confidentiality of Alcohol and Drug Abuse Patient Records regulations: The Federal rules restrict any use of the information to criminally investigate or prosecute any alcohol or drug abuse patient.[facility] [place]In the event this information is protected by the Federal Confidentiality of Alcohol and Drug Abuse Patient Records regulations: The Federal rules restrict any use of the information to criminally investigate or prosecute any alcohol or drug abuse patient.[facility] [place]In the event this information is protected by the Federal Confidentiality of Alcohol and Drug Abuse Patient Records regulations: The Federal rules restrict any use of the information to criminally investigate or prosecute any alcohol or drug abuse patient.[facility] [place]In the event this information is protected by the Federal Confidentiality of Alcohol and Drug Abuse Patient Records regulations: The Federal rules restrict any use of the information to criminally investigate or prosecute any alcohol or drug abuse patient.[facility] [place]In the event this information is protected by the Federal Confidentiality of Alcohol and Drug Abuse Patient Records regulations: The Federal rules restrict any use of the information to criminally investigate or prosecute any alcohol or drug abuse patient.[facility] the event this information is protected by the Federal Confidentiality of Alcohol and Drug Abuse Patient Records regulations: The Federal rules restrict any use of the information to criminally investigate or prosecute any alcohol or drug abuse patient.[facility] [place]In the event this information is protected by the Federal Confidentiality of Alcohol and Drug Abuse Patient Records regulations: The Federal rules restrict any use of the information to criminally investigate or prosecute any alcohol or drug abuse patient.[facility] [place]In the event this information is protected by the Federal Confidentiality of Alcohol and Drug Abuse Patient Records regulations: The Federal rules restrict any use of the information to criminally investigate or prosecute any alcohol or drug abuse patient.[facility] [place]In the event this information is protected by the Federal Confidentiality of Alcohol and Drug Abuse Patient Records regulations: The Federal rules restrict any use of the information to criminally investigate or prosecute any alcohol or drug abuse patient.[facility] [place]In the event this information is protected by the Federal Confidentiality of Alcohol and Drug Abuse Patient Records regulations: The Federal rules restrict any use of the information to criminally investigate or prosecute any alcohol or drug abuse patient.[facility] [place]In the event this information is protected by the Federal Confidentiality of Alcohol and Drug Abuse Patient Records regulations: The Federal rules restrict any use of the information to criminally investigate or prosecute any alcohol or drug abuse patient.[facility] [place]In the event this information is protected by the Federal Confidentiality of Alcohol and Drug Abuse Patient Records regulations: The Federal rules restrict any use of the information to criminally investigate or prosecute any alcohol or drug abuse patient.[facility] [place]In the event this information is protected by the Federal Confidentiality of Alcohol and Drug Abuse Patient Records regulations: The Federal rules restrict any use of the information to criminally investigate or prosecute any alcohol or drug abuse patient.[facility] [place]In the event this information is protected by the Federal Confidentiality of Alcohol and Drug Abuse Patient Records regulations: The Federal rules restrict any use of the information to criminally investigate or prosecute any alcohol or drug abuse patient.[facility] [place]In the event this information is protected by the Federal Confidentiality of Alcohol and Drug Abuse Patient Records regulations: The Federal rules restrict any use of the information to criminally investigate or prosecute any alcohol or drug abuse patient.[facility] [place]In the event this information is protected by the Federal Confidentiality of Alcohol and Drug Abuse Patient Records regulations: The Federal rules restrict any use of the information to criminally investigate or prosecute any alcohol or drug abuse patient.[facility] [place]In the event this information is protected by the Federal Confidentiality of Alcohol and Drug Abuse Patient Records regulations: The Federal rules restrict any use of the information to criminally investigate or prosecute any alcohol or drug abuse patient.[facility] [place]In the event this information is protected by the Federal Confidentiality of Alcohol and Drug Abuse Patient Records regulations: The Federal rules restrict any use of the information to criminally investigate or prosecute any alcohol or drug abuse patient.[facility] [place]In the event this information is protected by the Federal Confidentiality of Alcohol and Drug Abuse Patient Records regulations: The Federal rules restrict any use of the information to criminally investigate or prosecute any alcohol or drug abuse patient.[facility] [place]In the event this information is protected by the Federal Confidentiality of Alcohol and Drug Abuse Patient Records regulations: The Federal rules restrict any use of the information to criminally investigate or prosecute any alcohol or drug abuse patient.[facility] [place]In the event this information is protected by the Federal Confidentiality of Alcohol and Drug Abuse Patient Records regulations: The Federal rules restrict any use of the information to criminally investigate or prosecute any alcohol or drug abuse patient.[facility] [place]In the event this information is protected by the Federal Confidentiality of Alcohol and Drug Abuse Patient Records regulations: The Federal rules restrict any use of the information to criminally investigate or prosecute any alcohol or drug abuse patient.[facility] [place]In the event this information is protected by the Federal Confidentiality of Alcohol and Drug Abuse Patient Records regulations: The Federal rules restrict any use of the information to criminally investigate or prosecute any alcohol or drug abuse patient.[facility] [place]In the event this information is protected by the Federal Confidentiality of Alcohol and Drug Abuse Patient Records regulations: The Federal rules restrict any use of the information to criminally investigate or prosecute any alcohol or drug abuse patient.[facility] [place]In the event this information is protected by the Federal Confidentiality of Alcohol and Drug Abuse Patient Records regulations: The Federal rules restrict any use of the information to criminally investigate or prosecute any alcohol or drug abuse patient.[facility] [place]In the event this information is protected by the Federal Confidentiality of Alcohol and Drug Abuse Patient Records regulations: The Federal rules restrict any use of the information to criminally investigate or prosecute any alcohol or drug abuse patient.[facility] [place]In the event this information is protected by the Federal Confidentiality of Alcohol and Drug Abuse Patient Records regulations: The Federal rules restrict any use of the information to criminally investigate or prosecute any alcohol or drug abuse patient.[facility] [place]In the event this information is protected by the Federal Confidentiality of Alcohol and Drug Abuse Patient Records regulations: The Federal rules restrict any use of the information to criminally investigate or prosecute any alcohol or drug abuse patient.[facility] [place]In the event this information is protected by the Federal Confidentiality of Alcohol and Drug Abuse Patient Records regulations: The Federal rules restrict any use of the information to criminally investigate or prosecute any alcohol or drug abuse patient.[facility] [place]In the event this information is protected by the Federal Confidentiality of Alcohol and Drug Abuse Patient Records regulations: The Federal rules restrict any use of the information to criminally investigate or prosecute any alcohol or drug abuse patient.[facility] [place]In the event this information is protected by the Federal Confidentiality of Alcohol and Drug Abuse Patient Records regulations: The Federal rules restrict any use of the information to criminally investigate or prosecute any alcohol or drug abuse patient.[facility] [place]In the event this information is protected by the Federal Confidentiality of Alcohol and Drug Abuse Patient Records regulations: The Federal rules restrict any use of the information to criminally investigate or prosecute any alcohol or drug abuse patient.[facility] [place]In the event this information is protected by the Federal Confidentiality of Alcohol and Drug Abuse Patient Records regulations: The Federal rules restrict any use of the information to criminally investigate or prosecute any alcohol or drug abuse patient.[facility] [place]In the event this information is protected by the Federal Confidentiality of Alcohol and Drug Abuse Patient Records regulations: The Federal rules restrict any use of the information to criminally investigate or prosecute any alcohol or drug abuse patient.[facility] [place]In the event this information is protected by the Federal Confidentiality of Alcohol and Drug Abuse Patient Records regulations: The Federal rules restrict any use of the information to criminally investigate or prosecute any alcohol or drug abuse patient.[facility] [place]In the event this information is protected by the Federal Confidentiality of Alcohol and Drug Abuse Patient Records regulations: The Federal rules restrict any use of the information to criminally investigate or prosecute any alcohol or drug abuse patient.[facility] [place]In the event this information is protected by the Federal Confidentiality of Alcohol and Drug Abuse Patient Records regulations: The Federal rules restrict any use of the information to criminally investigate or prosecute any alcohol or drug abuse patient.[facility] [place]In the event this information is protected by the Federal Confidentiality of Alcohol and Drug Abuse Patient Records regulations: The Federal rules restrict any use of the information to criminally investigate or prosecute any alcohol or drug abuse patient.[facility] [place]In the event this information is protected by the Federal Confidentiality of Alcohol and Drug Abuse Patient Records regulations: The Federal rules restrict any use of the information to criminally investigate or prosecute any alcohol or drug abuse patient.[facility] [place]In the event this information is protected by the Federal Confidentiality of Alcohol and Drug Abuse Patient Records regulations: The Federal rules restrict any use of the information to criminally investigate or prosecute any alcohol or drug abuse patient.[facility] [place]In the event this information is protected by the Federal Confidentiality of Alcohol and Drug Abuse Patient Records regulations: The Federal rules restrict any use of the information to criminally investigate or prosecute any alcohol or drug abuse patient.[facility] [place]In the event this information is protected by the Federal Confidentiality of Alcohol and Drug Abuse Patient Records regulations: The Federal rules restrict any use of the information to criminally investigate or prosecute any alcohol or drug abuse patient.[facility] [place]In the event this information is protected by the Federal Confidentiality of Alcohol and Drug Abuse Patient Records regulations: The Federal rules restrict any use of the information to criminally investigate or prosecute any alcohol or drug abuse patient.[facility] [place]In the event this information is protected by the Federal Confidentiality of Alcohol and Drug Abuse Patient Records regulations: The Federal rules restrict any use of the information to criminally investigate or prosecute any alcohol or drug abuse patient.[facility] [place]In the event this information is protected by the Federal Confidentiality of Alcohol and Drug Abuse Patient Records regulations: The Federal rules restrict any use of the information to criminally investigate or prosecute any alcohol or drug abuse patient.[facility] [place]In the event this information is protected by the Federal Confidentiality of Alcohol and Drug Abuse Patient Records regulations: The Federal rules restrict any use of the information to criminally investigate or prosecute any alcohol or drug abuse patient.[facility] JacksonIn the event this information is protected by the Federal Confidentiality of Alcohol and Drug Abuse Patient Records regulations: The Federal rules restrict any use of the information to criminally investigate or prosecute any alcohol or drug abuse patient.[facility] JacksonIn the event this information is protected by the Federal Confidentiality of Alcohol and Drug Abuse Patient Records regulations: The Federal rules restrict any use of the information to criminally investigate or prosecute any alcohol or drug abuse patient.[facility] JacksonIn the event this information is protected by the Federal Confidentiality of Alcohol and Drug Abuse Patient Records regulations: The Federal rules restrict any use of the information to criminally investigate or prosecute any alcohol or drug abuse patient.[facility] JacksonIn the event this information is protected by the Federal Confidentiality of Alcohol and Drug Abuse Patient Records regulations: The Federal rules restrict any use of the information to criminally investigate or prosecute any alcohol or drug abuse patient.[facility] JacksonIn the event this information is protected by the Federal Confidentiality of Alcohol and Drug Abuse Patient Records regulations: The Federal rules restrict any use of the information to criminally investigate or prosecute any alcohol or drug abuse patient.[facility] JacksonIn the event this information is protected by the Federal Confidentiality of Alcohol and Drug Abuse Patient Records regulations: The Federal rules restrict any use of the information to criminally investigate or prosecute any alcohol or drug abuse patient.[facility] JacksonIn the event this information is protected by the Federal Confidentiality of Alcohol and Drug Abuse Patient Records regulations: The Federal rules restrict any use of the information to criminally investigate or prosecute any alcohol or drug abuse patient.[facility] JacksonIn the event this information is protected by the Federal Confidentiality of Alcohol and Drug Abuse Patient Records regulations: The Federal rules restrict any use of the information to criminally investigate or prosecute any alcohol or drug abuse patient.[facility] JacksonIn the event this information is protected by the Federal Confidentiality of Alcohol and Drug Abuse Patient Records regulations: The Federal rules restrict any use of the information to criminally investigate or prosecute any alcohol or drug abuse patient.[facility] the event this information is protected by the Federal Confidentiality of Alcohol and Drug Abuse Patient Records regulations: The Federal rules restrict any use of the information to criminally investigate or prosecute any alcohol or drug abuse patient.[facility] JacksonIn the event this information is protected by the Federal Confidentiality of Alcohol and Drug Abuse Patient Records regulations: The Federal rules restrict any use of the information to criminally investigate or prosecute any alcohol or drug abuse patient.[facility] JacksonIn the event this information is protected by the Federal Confidentiality of Alcohol and Drug Abuse Patient Records regulations: The Federal rules restrict any use of the information to criminally investigate or prosecute any alcohol or drug abuse patient.[facility] JacksonIn the event this information is protected by the Federal Confidentiality of Alcohol and Drug Abuse Patient Records regulations: The Federal rules restrict any use of the information to criminally investigate or prosecute any alcohol or drug abuse patient.[facility] JacksonIn the event this information is protected by the Federal Confidentiality of Alcohol and Drug Abuse Patient Records regulations: The Federal rules restrict any use of the information to criminally investigate or prosecute any alcohol or drug abuse patient.[facility] JacksonIn the event this information is protected by the Federal Confidentiality of Alcohol and Drug Abuse Patient Records regulations: The Federal rules restrict any use of the information to criminally investigate or prosecute any alcohol or drug abuse patient.[facility] JacksonIn the event this information is protected by the Federal Confidentiality of Alcohol and Drug Abuse Patient Records regulations: The Federal rules restrict any use of the information to criminally investigate or prosecute any alcohol or drug abuse patient.[facility] JacksonIn the event this information is protected by the Federal Confidentiality of Alcohol and Drug Abuse Patient Records regulations: The Federal rules restrict any use of the information to criminally investigate or prosecute any alcohol or drug abuse patient.[facility] JacksonIn the event this information is protected by the Federal Confidentiality of Alcohol and Drug Abuse Patient Records regulations: The Federal rules restrict any use of the information to criminally investigate or prosecute any alcohol or drug abuse patient.[facility] JacksonIn the event this information is protected by the Federal Confidentiality of Alcohol and Drug Abuse Patient Records regulations: The Federal rules restrict any use of the information to criminally investigate or prosecute any alcohol or drug abuse patient.[facility] JacksonIn the event this information is protected by the Federal Confidentiality of Alcohol and Drug Abuse Patient Records regulations: The Federal rules restrict any use of the information to criminally investigate or prosecute any alcohol or drug abuse patient.[facility] Reason for Visit (unrecogniz ed section and content) Reason Comments Procedure mbb Back Pain Lower bilateral - ri ght is worse Hip Pain Bilateral Specialty Diagnoses / Procedures Referred By Contac t Referred To Contact Pain Management / PAIN MANAGEMENT Diagnoses Spondylosis without myelopathy or radiculopathy, lumbar region Medial Branch Block (Diagnostic only, NO STEROIDS) under fluoroscopic guidance BILATERAL SIDES at L4-5 and L5-S1 Procedures NJX DX/THER AGT PVRT FACET JT LMBR/SAC 1 LEVEL NJX DX/THER AGT PVRT FACET JT LMBR/SAC 2ND LEVEL PROCEDURE 20 Hector Ritchie MD [address] [address] [address] Hector Ritchie MD [email or web address] [address] Referral ID Status Reason Start Date Expiration Date V isits Requested Visits Authorized [id number] Pending Review 06/04/2023 09/02/2023 1 1 Reason Comments ER F/U Specialty Diagnoses / Procedures Referred By Contac t Referred To Contact Family Medicine / FAMILY MEDICINE Diagnoses ER follow up, Foot/injury, 09/13/22 [facility] Procedures REFERRAL TO [facility] 4C NEW HOSP/ER FU Self Chasidy Luciano APRN.TOOL GRINDER SET UP OPERATOR GEAR [address] [place] [address] Referral ID Status Reason Start Date Expiration Date V isits Requested Visits Authorized [id number] Outside PCP 09/20/2022 11/19/2022 1 1 Reason Comments Patient Update Reason Onset Date Comments Transition Of Care 11/25/2022 TCM Initial A [facility] Discharge 11/22/22 Reason Comments Hospital F/U [facility]; impac jessica bowel and GI bleed Reason Comments Follow Up All Clear Reason Onset Date Comments Transition Of Care 12/04/2022 TCM f/u call Reason Onset Date Comments Transition Of Care 12/12/2022 TCM Follow Up Reason Comments Results Reason Comments New Reason Comments New Patient Reason Comments Follow Up 3 month Reason Comments Spirometry Specialty Diagnoses / Procedures Referred By Contac t Referred To Contact [facility] Diagnoses Chronic obstructive pulmonary disease, unspecified COPD type (HCC) Procedures SPIROMETRY - BASELINE AND POST DILATOR BRNCDILAT RSPSE SPMTRY PRE&POST-BRNCDILAT Erik Garcia MD [address] [place] [address] [facility] [address] [place] [address] Referral ID Status Reason Start Date Expiration Date V isits Requested Visits Authorized [id number] Closed Auto-Generate d Referral 01/31/2023 03/01/2024 1 1 Reason Comments No Show Reason Comments Other Penile Prosthesis - Inflatable Reason Onset Date Comments Refill Request 03/05/2023 Reason Comments Established Patient Specialty Diagnoses / Procedures Referred By Contac t Referred To Contact Diagnoses 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) Monica Jung, DO [address] [place] [address] Rick [facility] [address] [place] [address] Referral ID Status Reason Start Date Expiration Date V isits Requested Visits Authorized [id number] Authorized 02/06/2023 05/07/2023 99 99 Reason Comments Pain Lower back and bilat eral hip pain Reason Comments Procedure MBB Back Pain LOWER - BILATERAL - HAD RADIATION IN BACK WHICH CAUSED THE BACK ISSUE 2 YEARS AGO Referral ID Status Reason Start Date Expiration Date V isits Requested Visits Authorized [id number] Pending Review 05/21/2023 08/19/2023 1 1 Reason Comments Follow Up Specialty Diagnoses / Procedures Referred By Contac t Referred To Contact MR IMAGING Diagnoses Chronic bilateral low back pain, unspecified whether sciatica present Procedures MRI LUMBAR SPINE WO IVCON MRI SPINAL CANAL LUMBAR W/O CONTRAST MATERIAL Hector Ritchie MD [address] [facility] [address] [place] [address] [place] [address] Referral ID Status Reason Start Date Expiration Date V isits Requested Visits Authorized [id number] Closed Auto-Generate d Referral 05/01/2023 05/30/2024 1 1 Reason Comments Follow Up Reason Comments BP Check Reason Comments Injection Questions Reason Comments Hypertension With bilateral lower extremity swelling Reason Comments Med Change Request Reason Comments Procedure rfa Back Pain Lower bilateral - ri ght is worse Specialty Diagnoses / Procedures Referred By Contac t Referred To Contact Pain Management / PAIN MANAGEMENT Diagnoses Spondylosis without myelopathy or radiculopathy, lumbar region Bilateral L4-5 and L5-S1 RFA under fluoroscopic guidance Procedures DSTR NROLYTC AGNT PARVERTEB FCT SNGL LMBR/SACRAL DSTR NROLYTC AGNT PARVERTEB FCT ADDL LMBR/SACRAL PROCEDURE 30 Cintia Martin PA-C [address] [facility] [address] [place] [address] Hector Ritchie MD [address] [facility] [address] [place] [address] Referral ID Status Reason Start Date Expiration Date V isits Requested Visits Authorized [id number] Outside PCP 07/16/2023 10/14/2023 1 1 Reason Comments Blood Pressure Check Reason Comments Follow Up Back Pain Lower Reason Comments Establish Care [facility] [place] [facility] Spicer OncologyBlood pressure has been running high x3 weeks. 180/100s Sodium was low so stopped hydrochlorothiazide. Increased to 75mg. 188/98 this morning Gap Closure (Health Maintenance) PSA Lev el Never doneTetanus: Every 10yrs Never doneWellness Visit Never doneDepression Screening (PHQ-2/9) Never doneHepatitis C Screening Never doneZoster Vaccines(1 of 2) Never doneFalls Risk Assessment Never donePneumococcal Vaccine: Age 65+(1 of 1 - PCV) Never doneCOVID-19 Vaccine(2022-24 season) due on 12/20/2022 Reason Comments Follow-up Discuss recent CT sc an Reason Comments Consult Lung Nodule Specialty Diagnoses / Procedures Referred By Kiko t Referred To Contact Pulmonology Diagnoses Lung nodule Gildardo Foster, TOOL GRINDER SET UP OPERATOR GEAR [address] [place] [address] Yon Quinteros MD [address] [place] [address] Referral ID Status Reason Start Date Expiration Date Visits Re quested Visits Authorized [id number] Closed 08/28/2023 08/27/2024 1 1 Reason Comments Establish Care Reason Onset Date Comments Medication Refill 10/11/2023 Reason Onset Date Comments Hypertension 128/70 last BP a t home Gap Closure (Health Maintenance) Medicare Wellness Visit Never doneFalls Risk Assessment Never done Medicare Wellness Visit Fall Risk Screening 10/30/2023 Reason Comments Consult New Patient/Epic Ref erral in Office/Dr Yon Quinteros/Lung Nodule Specialty Diagnoses / Procedures Referred By Kiko morillo Referred To Contact Pulmonology Diagnoses Lung nodule Hemoptysis Yon Quinteros MD [address] [place] [address] Frank Quinteros MD [address] [place] [address] [place] [address] Referral ID Status Reason Start Date Expiration Date Visits Re quested Visits Authorized [id number] Closed 09/24/2023 09/23/2024 1 1 Reason Comments Consult New pt ref Spieldenn er - GERD, hx ulcers Specialty Diagnoses / Procedures Referred By Kiko t Referred To Contact General Surgery Diagnoses Gastroesophageal reflux disease, unspecified whether esophagitis present Gildardo Foster, TOOL GRINDER SET UP OPERATOR GEAR [address] [place] [address] [facility] [facility] [address] [facility] Office Building, [address]th [place] [address] Referral ID Status Reason Start Date Expiration Date Visits Re quested Visits Authorized [id number] Closed 10/30/2023 10/29/2024 1 1 Reason Comments Follow-up EGD Reason Comments Follow-up Lung Nodule Reason Comments 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 AORTIC ECTASIA Specialty Diagnoses / Procedures Referred By Kiko t Referred To Contact Cardiothoracic Surgery Diagnoses Aortic ectasia, thoracic (HCC) Yon Quinteros MD [address] [place] [address] Phone: tel: fax: Heron Willis MD [address] [place], [place] [address]m[place] [address] Phone: tel: fax: Referral ID Status Reason Start Date Expiration Date Visits Re quested Visits Authorized [id number] Closed 02/08/2024 02/07/2025 1 1 Reason Comments Cough Spitting up yellow p hlegm Reason Onset Date Comments Refill Request 03/01/2024 Reason Comments Injections Reason Comments Follow Up Back Pain Rx Refills Lyrica Reason Comments Appointment Reason Comments Established Patient 3 month OV with labs , possible Lupron injection Reason Comments Follow-up Reason Comments Established Patient 3 mo follow up with labs Reason Comments Procedure ilesi Back Pain Lower - bilateral Specialty Diagnoses / Procedures Referred By Contac t Referred To Contact Pain Management / PAIN MANAGEMENT Diagnoses Spinal stenosis, lumbar region with neurogenic claudication ILESI w fluoro at L5-S1 Procedures NJX DX/THER SBST INTRLMNR LMBR/SAC W/IMG GDN PROCEDURE Pre, Alina, HEAD START DIRECTOR.TOOL GRINDER SET UP OPERATOR GEAR [address] [place] [address] Amadeo Yee MD [address] [facility] [address] [place] [address] Referral ID Status Reason Start Date Expiration Date Visits Re quested Visits Authorized [id number] Closed 04/07/2024 04/06/2025 1 1 Reason Comments Established Patient Rx Refills Reason Comments Established Patient Injection effective until 05/06/24 Reason Comments Procedure L GTB injection Specialty Diagnoses / Procedures Referred By Contac t Referred To Contact Pain Management / PAIN MANAGEMENT Diagnoses Trochanteric bursitis, left hip Left GTB injection; 81mg asp Procedures ARTHROCENTESIS ASPIR&/INJ MAJOR JT/BURSA W/US PROCEDURE 20 Pre, Alina, HEAD START DIRECTOR.TOOL GRINDER SET UP OPERATOR GEAR [address] [place] [address] Phone: tel: fax: Amadeo Yee MD [address] [facility] [address] [place] [address] Phone: tel: fax: Referral ID Status Reason Start Date Expiration Date Visits Re quested Visits Authorized [id number] Closed 04/07/2024 04/06/2025 1 1 Reason Comments Established Patient Patient states the i njection was successful and he is still getting relief from the pain. Reason Onset Date Comments Refill Request 06/18/2024 Reason Comments Radiology NM Reason Comments Follow-up [address] Scan Reason Comments Consult Specialty Diagnoses / Procedures Referred By Contac t Referred To Contact Radiation Oncology Diagnoses Rising PSA level Prostate cancer metastatic to bone (HCC) Procedures RAD/ONC CONSULT OFFICE/OUTPATIENT NEW HIGH MDM 60 MINUTES Kavon Nino [address] [place] [address] Phone: tel: fax: Referral ID Status Reason Start Date Expiration Date V isits Requested Visits Authorized [id number] Closed PCP Requested Referral 07/08/2024 07/08/2025 1 1 Reason Comments Established Patient Follow Up Patient has cancer i n left hip and start radiation on July 20 for 10 days. 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) Monica Jung, [address] [place] [address] Phone: tel: fax: Monica Jung, DO [address] [place] [address] Phone: tel: fax: Referral ID Status Reason Start Date Expiration Date V isits Requested Visits Authorized [id number] Authorized 07/20/2024 10/18/2024 99 99 Reason Onset Date Comments Opened In Error 07/26/2024 Reason Comments Procedure ilesi Back Pain Lower - bilateral - right is worse Specialty Diagnoses / Procedures Referred By Contac t Referred To Contact Pain Management / PAIN MANAGEMENT Diagnoses Spinal stenosis, lumbar region with neurogenic claudication ILESI w fluoro at L5-S1; 81mg asp Procedures NJX DX/THER SBST INTRLMNR LMBR/SAC W/IMG GDN PROCEDURE Alina Bryson APRN.TOOL GRINDER SET UP OPERATOR GEAR [address] [place] [address] Phone: tel: fax: Amadeo Yee MD [address] [facility] [address] [place] [id number] Phone: tel: fax: Referral ID Status Reason Start Date Expiration Date Visits Re quested Visits Authorized [id number] Closed 04/07/2024 04/06/2025 1 1 Reason Comments Results Reason Onset Date Comments Refill Request 09/06/2024 Reason Comments Undercollar Baster - Other Oral Anti-Cance r Agents Education Reason Comments F/U 6 months Reason Comments Care Coordination ORAL ANTI-CANCER AGE NTS FOLLOW-UP PHONE CALL Specialty Diagnoses / Procedures Referred By Contac t Referred To Contact [facility] Diagnoses Chronic obstructive pulmonary disease, unspecified COPD type (HCC) Procedures LUNG DIFFUSION CAPACITY (DLCO) DIFFUSING CAPACITY Aimee العلي MD [address] [place] [address] Phone: tel: fax: [facility] [address] [place] [address] Referral ID Status Reason Start Date Expiration Date V isits Requested Visits Authorized [id number] Closed Auto-Generate d Referral 09/22/2024 10/22/2025 1 1 Specialty Diagnoses / Procedures Referred By Contac t Referred To Contact [facility] Diagnoses Chronic obstructive pulmonary disease, unspecified COPD type (HCC) Procedures SPIROMETRY WITH DILATOR IF OBSTRUCTED BRNCDILAT RSPSE SPMTRY PRE&POST-BRNCDILAT ADMAimee Omer MD [address] [place] [address] Phone: tel: fax: [facility] [address] [place] [address] Referral ID Status Reason Start Date Expiration Date V isits Requested Visits Authorized [id number] Closed Auto-Generate d Referral 09/22/2024 10/22/2025 1 1 Reason Comments New Patient COPD COPD Reason Comments Dental Clearance - Chemotherapy Reason Onset Date Comments SPP Oral Oncology/hematology - Medication Refill 10/04/2024 xtandi Reason Comments Yearly Exam Reason Onset Date Comments SPP Oral Oncology/hematology - Medication Refill 10/29/2024 Xtandi 80mg Reason Comments Non-Chemotherapy Treatment Specialty Diagnoses / Procedures Referred By Kiko t Referred To Contact Diagnoses Malignant neoplasm of prostate metastatic to bone (HCC) Monica Jung, DO [address] [place] [address] Phone: tel: fax: Hematology/Oncology [address] [place] [address] Phone: tel: fax: Referral ID Status Reason Start Date Expiration Date V isits Requested Visits Authorized [id number] Authorized 09/30/2024 12/29/2024 99 99 Care Teams (unrecognized sec tion and content) Model Maker Relationship Specialty Start Date End Date Erik Cota MD [address] [place], [place] [id number] PCP - General Family Medicine 10/25/22 Model Maker Relationship Specialty Start Date End Date Erik Cota MD [address] [place], [place] [id number] PCP - General Family Medicine 10/25/22 Anya Aldana RN [address] [place] [address] Primary Care [employer] Media Specialist Internal Medicine 11/25/22 12/25/22 Model Maker Relationship Specialty Start Date End Date Erik Cota MD [address] [place], [place] [address] PCP - General Family Medicine 10/25/22 Anya Aldana RN [address] [place], [place] [phone] Primary Care [employer] Media Specialist Internal Medicine 11/25/22 12/25/22 Model Maker Relationship Specialty Start Date End Date Erik Cota MD [address] [place], [place] [address]21 PCP - General Family Medicine 10/25/22 Anya Aldana RN [address] [place] [address] Primary Care [employer] Media Specialist Internal Medicine 11/25/22 12/25/22 Model Maker Relationship Specialty Start Date End Date Erik Cota MD [address] [place], [place] [id number] PCP - General Family Medicine 10/25/22 [place] [address] [place] [address] Specialty Quality Assurance Advisor Hematology/Oncology 01/06/23 Model Maker Relationship Specialty Start Date End Date Erik Cota MD [address] [place], [place] [id number] PCP - General Family Medicine 10/25/22 [place] [address] [place] [address] Specialty Quality Assurance Advisor Hematology/Oncology 01/06/23 Model Maker Relationship Specialty Start Date End Date Erik Cota MD [address] [place], [place] 090981 PCP - General Family Medicine 10/25/22 [place] [address] [place] [address] Specialty Quality Assurance Advisor Hematology/Oncology 01/06/23 Model Maker Relationship Specialty Start Date End Date Erik Cota MD [address] [place], [place] 895751 PCP - General Family Medicine 10/25/22 [place] [address] [place] [address] Specialty Quality Assurance Advisor Hematology/Oncology 01/06/23 Model Maker Relationship Specialty Start Date End Date Erik Cota MD [address] [place] [id number] PCP - General Family Medicine 10/25/22 [place] [address] [place] [address] Specialty Quality Assurance Advisor Hematology/Oncology 01/06/23 Model Maker Relationship Specialty Start Date End Date Erik Cota MD [address] [place] [id number] PCP - General Family Medicine 10/25/22 [place] [address] [place] [address] Specialty Quality Assurance Advisor Hematology/Oncology 01/06/23 Model Maker Relationship Specialty Start Date End Date Erik Cota MD [facility] [place], [place] 4368[address] PCP - General Family Medicine 10/25/22 Anya Aldana, BRYSON [address] [place], [place] [phone] Primary Care [employer] Media Specialist Internal Medicine 11/25/22 12/25/22 Model Maker Relationship Specialty Start Date End Date Erik Cota MD [address] [place], [place] 8[address]81 PCP - General Family Medicine 10/25/22 [place] [address] [place] [address] Specialty Quality Assurance Advisor Hematology/Oncology 01/06/23 Model Maker Relationship Specialty Start Date End Date Erik Cota MD [address] [place], [place] 241161 PCP - General Family Medicine 10/25/22 [place] [address] [place] [address] Specialty Quality Assurance Advisor Hematology/Oncology 01/06/23 Model Maker Relationship Specialty Start Date End Date Erik Cota MD [address] [place], [place] [phone] PCP - General Family Medicine 10/25/22 [place] [address] [place] [address] Specialty Quality Assurance Advisor Hematology/Oncology 01/06/23 Model Maker Relationship Specialty Start Date End Date Erik Cota MD [address] [place], [place] [id number] PCP - General Family Medicine 10/25/22 [place] [address] [place] [address] Specialty Quality Assurance Advisor Hematology/Oncology 01/06/23 Model Maker Relationship Specialty Start Date End Date Erik Cota MD [address] [place], [place] 9968[address] PCP - General Family Medicine 10/25/22 [place] [address] [place] [address] Specialty Quality Assurance Advisor Hematology/Oncology 01/06/23 Model Maker Relationship Specialty [place] [address] [place] [address] PCP - General Family Medicine 10/25/22 [place] [address] [place] [address] Specialty Quality Assurance Advisor Hematology/Oncology 01/06/23 Model Maker Relationship Specialty Start Date End Date Erik Cota MD [address] [place], [place] [phone] PCP - General Family Medicine 10/25/22 Tatiana Rahman [place] [address] [place] [address] Specialty Quality Assurance Advisor Hematology/Oncology 01/06/23 Model Maker Relationship Specialty Start Date End Date Erik Cota MD [address] [place], [place] 324241 PCP - General Family Medicine 10/25/22 [place] [address] [place] [address] Specialty Quality Assurance Advisor Hematology/Oncology 01/06/23 Model Maker Relationship Specialty Start Date End Date Erik Cota MD [address] [place], [place] 408771 PCP - General Family Medicine 10/25/22 [place] [address] [place] [address] Specialty Quality Assurance Advisor Hematology/Oncology 01/06/23 Model Maker Relationship Specialty [place] [address] [place] [address] [id number] PCP - General Family Medicine 10/25/22 [place] [address] [place] [address] Specialty Quality Assurance Advisor Hematology/Oncology 01/06/23 Model Maker Relationship Specialty Start Date End Date Erik Cota MD [address] [place], [place] [id number] PCP - General Family Medicine 10/25/22 Tatiana Rahman [place] [id number] [place] [address]217 Specialty Quality Assurance Advisor Hematology/Oncology 01/06/23 Model Maker Relationship Specialty Start Date End Date Erik Cota MD [address] [place], [place] 498521 PCP - General Family Medicine 10/25/22 [place] [address] [place] [address] Specialty Quality Assurance Advisor Hematology/Oncology 01/06/23 Model Maker Relationship Specialty Start Date End Date Erik Cota MD [address] [place], [place] 946361 PCP - General Family Medicine 10/25/22 [place] [address] [place] [address] Specialty Quality Assurance Advisor Hematology/Oncology 01/06/23 Model Maker Relationship Specialty [place] [address] [place] [address] 809431 PCP - General Family Medicine 10/25/22 [place] [address] [place] [address] Specialty Quality Assurance Advisor Hematology/Oncology 01/06/23 Model Maker Relationship Specialty Start Date End Date Erik Cota MD [address] [place], [place] [id number] PCP - General Family Medicine 10/25/22 Tatiana Rahman MD [address] [place] [address] Specialty Quality Assurance Advisor Hematology/Oncology 01/06/23 Model Maker Relationship Specialty Start Date End Date Erik Cota MD [address] [place], [place] 940211 PCP - General Family Medicine 10/25/22 [place] [address] [place] [address] Specialty Quality Assurance Advisor Hematology/Oncology 01/06/23 Model Maker Relationship Specialty Start Date End Date Erik Cota MD [address] [place] [address] PCP - General Family Medicine 10/25/22 [place] [address] [place] [address] Specialty Quality Assurance Advisor Hematology/Oncology 01/06/23 Model Maker Relationship Specialty Start Date End Date Gildardo Foster CNP [address] [place], [place] [phone] PCP - General Nurse Practitioner 08/12/23 Model Maker Relationship Specialty Start Date End Date Gildardo Foster CNP [address] [place], [place] [phone] PCP - General Nurse Practitioner 08/12/23 Model Maker Relationship Specialty Start Date End Date Gildardo Foster CNP [address] [place] [address] PCP - General Nurse Practitioner 08/12/23 Model Maker Relationship Specialty Start Date End Date Gildardo Foster CNP [address] [place], [place] [phone] PCP - General Nurse Practitioner 08/12/23 Model Maker Relationship Specialty Start Date End Date Gildardo Foster CNP [address] [place] [address] PCP - General Nurse Practitioner 08/12/23 Model Maker Relationship Specialty Start Date End Date Gildardo Foster CNP [address] [place] [facility] [place] [address] PCP - General Nurse Practitioner 08/12/23 Model Maker Relationship Specialty Start Date End Date Gildardo Foster CNP [address] [place] [facility] [place] [address] PCP - General Nurse Practitioner 08/12/23 Model Maker Relationship Specialty Start Date End Date Gildardo Foster CNP [address] [place] [facility] [place] [address] PCP - General Nurse Practitioner 08/12/23 Model Maker Relationship Specialty Start Date End Date Gildardo Foster CNP [address] [place] [facility] [place] [address] PCP - General Nurse Practitioner 08/12/23 Model Maker Relationship Specialty Start Date End Date Gildardo Foster CNP [address] [place] [facility] [place] [address] PCP - General Nurse Practitioner 08/12/23 Model Maker Relationship Specialty Start Date End Date Gildardo Foster CNP [address] [place] [facility] [place] [address] PCP - General Nurse Practitioner 08/12/23 Model Maker Relationship Specialty Start Date End Date Gildardo Foster CNP [address] [place] [facility] [place] [address] PCP - General Nurse Practitioner 08/12/23 Model Maker Relationship Specialty Start Date End Date Gildardo Foster CNP [address] [place] [facility] [place] [address] PCP - General Nurse Practitioner 08/12/23 Model Maker Relationship Specialty Start Date End Date Gildardo Foster CNP [address] [place] [address] PCP - General Nurse Practitioner 08/12/23 Model Maker Relationship Specialty Start Date End Date Gildardo Foster CNP [address] [place] [address] PCP - General Nurse Practitioner 08/12/23 Model Maker Relationship Specialty Start Date End Date Gildardo Foster CNP [address] [place] [phone] PCP - General Nurse Practitioner 08/12/23 Model Maker Relationship Specialty Start Date End Date Gildardo Foster CNP [address] [place] [phone] PCP - General Nurse Practitioner 08/12/23 Model Maker Relationship Specialty Start Date End Date Erik Cota MD [address] [place] [address] PCP - General Family Medicine 10/25/22 [place] [address] [place], [place] [phone] Specialty Quality Assurance Advisor Hematology/Oncology 01/06/23 Model Maker Relationship Specialty Start Date End Date Gildardo Foster CNP [address] [place] [address] PCP - General Nurse Practitioner 08/12/23 Model Maker Relationship Specialty Start Date End Date Gildardo Foster CNP [address] [place] [phone] PCP - General Nurse Practitioner 08/12/23 Model Maker Relationship Specialty Start Date End Date Gildardo Foster CNP [address] [place] [address] PCP - General Nurse Practitioner 08/12/23 Model Maker Relationship Specialty Start Date End Date Gildardo Foster CNP [address] [place] [address] PCP - General Nurse Practitioner 08/12/23 Model Maker Relationship Specialty Start Date End Date Gildardo Foster CNP [address] [place] [address] PCP - General Nurse Practitioner 08/12/23 Model Maker Relationship Specialty Start Date End Date Gildardo Foster CNP [address] [place] [address] PCP - General Nurse Practitioner 08/12/23 Model Maker Relationship Specialty Start Date End Date DaviononeilGildardo johnson CNP [address] [place] [address] PCP - General Nurse Practitioner 08/12/23 Model Maker Relationship Specialty Start Date End Date Erik Cota MD [address] [place] [address] PCP - General Family Medicine 10/25/22 [place] [address] [place], [place] [phone] Specialty Quality Assurance Advisor Hematology/Oncology 01/06/23 Model Maker Relationship Specialty Start Date End Date Generic Provider, No Assigned [place] [address] PCP - General Direct Selling Counselor 09/25/23 [place] [address] [place] [address] Consulting Physician Hematology and Oncology 09/30/23 Model Maker Relationship Specialty Start Date End Date Erik Cota MD [address] [place] [address] PCP - General Family Medicine 10/25/22 [place] [address] [place], [place] [phone] Specialty Quality Assurance Advisor Hematology/Oncology 01/06/23 Model Maker Relationship Specialty Start Date End Date Generic Provider, No [place] [address] PCP - General Direct Selling Counselor 09/25/23 [place] [address] [place] [address] Consulting Physician Hematology and Oncology 09/30/23 Model Maker Relationship Specialty Start Date End Date Generic Provider, No [place] [address] PCP - General Direct Selling Counselor 09/25/23 [place] [address] [place] [address] Consulting Physician Hematology and Oncology 09/30/23 Model Maker Relationship Specialty Start Date End Date Generic Provider, No Assigned PcpMD NONE [facility] [place] [address] PCP - General Direct Selling Counselor 09/25/23 [place] [address] [place] [address] Consulting Physician Hematology and Oncology 09/30/23 Model Maker Relationship Specialty Start Date End Date Erik Cota MD [address] [place], [place] 873051 PCP - General Family Medicine 10/25/22 [place] [address] [place], [place] [phone] Specialty Quality Assurance Advisor Hematology/Oncology 01/06/23 PodlogarNaima APRN.TOOL GRINDER SET UP OPERATOR GEAR [address] [place] [address] [facility] 03/13/24 Model Maker Relationship Specialty Start Date End Date Erik Cota MD [address] [place], [place] 098951 PCP - General Family Medicine 10/25/22 [place] [address] [place], [place] [phone] Specialty Quality Assurance Advisor Hematology/Oncology 01/06/23 PodlogarNaima APRN.TOOL GRINDER SET UP OPERATOR GEAR [address] [place] [address] [facility] 03/13/24 Model Maker Relationship Specialty Start Date End Date Generic Provider, No [place] [address] PCP - General Direct Selling Counselor 09/25/23 [place] [address] [place] [address] Consulting Physician Hematology and Oncology 09/30/23 Model Maker Relationship Specialty Start Date End Date Generic Provider, No [place] [address] PCP - General Direct Selling Counselor 09/25/23 [place] [address] [place] [address] Consulting Physician Hematology and Oncology 09/30/23 Model Maker Relationship Specialty Start Date End Date Generic Provider, No [place] [address] PCP - General Direct Selling Counselor 09/25/23 [place] [address] [place] [address] Consulting Physician Hematology and Oncology 09/30/23 Model Maker Relationship Specialty Start Date End Date Erik Cota MD [address] [place] [address] PCP - General Family Medicine 10/25/22 [place] [address] [place] [address] Specialty Quality Assurance Advisor Hematology/Oncology 01/06/23 PodlogarNaima, HEAD START DIRECTOR.TOOL GRINDER SET UP OPERATOR GEAR [address] [place] [address] [facility] 03/13/24 Model Maker Relationship Specialty Start Date End Date Erik Cota MD [address] [place] [address] PCP - General Family Medicine 10/25/22 [place] [address] [place], [place] [phone] Specialty Quality Assurance Advisor Hematology/Oncology 01/06/23 Podlogar, Naima, HEAD START DIRECTOR.TOOL GRINDER SET UP OPERATOR GEAR [address] [place] [address] [facility] 03/13/24 Model Maker Relationship Specialty Start Date End Date Erik Cota MD [address] [place], [place] 105391 PCP - General Family Medicine 10/25/22 [place] [address] [place] [address] Specialty Quality Assurance Advisor Hematology/Oncology 01/06/23 PodlogarNaima APRN.TOOL GRINDER SET UP OPERATOR GEAR [address] [place] [address] 358141 [facility] 03/13/24 Model Maker Relationship Specialty Start Date End Date Erik Cota MD [facility] [place], [place] 142851 PCP - General Family Medicine 10/25/22 Tatiana Rahman MD [address] [place] [address] [phone] Specialty Quality Assurance Advisor Hematology/Oncology 01/06/23 PodlogarNaima, HEAD START DIRECTOR.TOOL GRINDER SET UP OPERATOR GEAR [facility] [place] [address] Custom [employer] Family [facility] 03/13/24 Model Maker Relationship Specialty Start Date End Date Gildardo Foster CNP [address] [place] [address] [id number] PCP - General Nurse Practitioner 08/12/23 Model Maker Relationship Specialty Start Date End Date Erik Cota MD [address] [place], [place] 405281 PCP - General Family Medicine 10/25/22 [place] [address] [place] [address] Specialty Quality Assurance Advisor Hematology/Oncology 01/06/23 Podlogar, HARDY McnamaraN.TOOL GRINDER SET UP OPERATOR GEAR [address] [place], [place] 854931 [facility] 03/13/24 Model Maker Relationship Specialty Start Date End Date Erik Cota MD [address] [place], [place] 392601 PCP - General Family Medicine 10/25/22 [place] [address] [place] [address] Specialty Quality Assurance Advisor Hematology/Oncology 01/06/23 Podlogar, Naima, HEAD START DIRECTOR.TOOL GRINDER SET UP OPERATOR GEAR [address] [place], [place] 219301 [facility] 03/13/24 Model Maker Relationship Specialty Start Date End Date Erik Cota MD [address] [place], [place] 201471 PCP - General Family Medicine 10/25/22 [place] [address] [place], [place] [phone] Specialty Quality Assurance Advisor Hematology/Oncology 01/06/23 Podlogar, Naima, HEAD START DIRECTOR.TOOL GRINDER SET UP OPERATOR GEAR [address] [place], [place] 205241 [facility] 03/13/24 Model Maker Relationship Specialty Start Date End Date Erik Cota MD [address] [place], [place] 551281 PCP - General Family Medicine 10/25/22 [place] [address] [place], [place] 1558195 Specialty Quality Assurance Advisor Hematology/Oncology 01/06/23 PodlogarNaima HEAD START DIRECTOR.TOOL GRINDER SET UP OPERATOR GEAR [address] [place], [place] 766241 [facility] 03/13/24 Chasidy Luciano HEAD START DIRECTOR.TOOL GRINDER SET UP OPERATOR GEAR [address] [place] [address] 190771 [facility] 06/18/24 Model Maker Relationship Specialty Start Date End Date Erik Cota MD [address] [place], [place] [phone] PCP - General Family Medicine 10/25/22 [place] [address] [place], [place] [phone] Specialty Quality Assurance Advisor Hematology/Oncology 01/06/23 PodlogarNaima, HEAD START DIRECTOR.TOOL GRINDER SET UP OPERATOR GEAR [address] [place] [address] [facility] 03/13/24 Chasidy Luciano APRN.TOOL GRINDER SET UP OPERATOR GEAR [facility] [place], [place] 371051 [facility] 06/28/24 Model Maker Relationship Specialty Start Date End Date Erik Cota MD [address] [place], [place] 720931 PCP - General Family Medicine 10/25/22 [place] [address] [place], [place] [phone] Specialty Quality Assurance Advisor Hematology/Oncology 01/06/23 PodlogarNaima APRN.TOOL GRINDER SET UP OPERATOR GEAR [facility] [place], [place] 046321 [facility] 03/13/24 Chasidy Luciano APRN.TOOL GRINDER SET UP OPERATOR GEAR [address] [place] [address] [phone] [facility] 06/28/24 Model Maker Relationship Specialty Start Date End Date Erik Cota MD [address] [place] [address] 489051 PCP - General Family Medicine 10/25/22 [place] [address] [place], [place] [phone] Specialty Quality Assurance Advisor Hematology/Oncology 01/06/23 KalpeshlogNaima montilla APRN.TOOL GRINDER SET UP OPERATOR GEAR [facility] [place] [address] [facility] 03/13/24 Chasidy Luciano APRN.TOOL GRINDER SET UP OPERATOR GEAR [facility] [place], [place] 938991 [facility] 06/28/24 Model Maker Relationship Specialty Start Date End Date Erik Cota MD [facility] [place] [address] PCP - General Family Medicine 10/25/22 [place] [address] [place] [address] Specialty Quality Assurance Advisor Hematology/Oncology 01/06/23 PodlogarNaima APRN.TOOL GRINDER SET UP OPERATOR GEAR [facility] [place], [place] 389131 [facility] 03/13/24 Chasidy Luciano APRN.TOOL GRINDER SET UP OPERATOR GEAR [address] [place] [address] 516691 [facility] Family [facility] 06/28/24 Model Maker Relationship Specialty Start Date End Date Erik Cota MD [address] [place] [address] PCP - General Family Medicine 10/25/22 [place] [address] [place] [address] Specialty Quality Assurance Advisor Hematology/Oncology 01/06/23 PodlogarNaima APRN.TOOL GRINDER SET UP OPERATOR GEAR [facility] [place], [place] 536601 [facility] 03/13/24 Chasidy Luciano HEAD START DIRECTOR.TOOL GRINDER SET UP OPERATOR GEAR [address] [place], [place] [phone] [facility] 06/28/24 Model Maker Relationship Specialty Start Date End Date Erik Cota MD [address] [place], [place] [id number] PCP - General Family Medicine 10/25/22 [place] [address] [place], [place] [phone] Specialty Quality Assurance Advisor Hematology/Oncology 01/06/23 PodlogarNaima APRN.TOOL GRINDER SET UP OPERATOR GEAR [address] [place], [place] 143911 [facility] 03/13/24 Chasidy Luciano APRN.TOOL GRINDER SET UP OPERATOR GEAR [address] [place], [place] 562810 [phone] [facility] 06/28/24 oSbia Oakes MD [address] [place], [place] 819841 Radiation Oncology 07/09/24 Model Maker Relationship Specialty Start Date End Date Erik Cota MD [address] [place], [place] 206418 [phone] PCP - General Family Medicine 10/25/22 [place] [address] [place], [place] [phone] Specialty Quality Assurance Advisor Hematology/Oncology 01/06/23 PodlogarNaima HEAD START DIRECTOR.TOOL GRINDER SET UP OPERATOR GEAR [address] [place] [address] [facility] 03/13/24 Chasidy Luciano APRN.TOOL GRINDER SET UP OPERATOR GEAR [address] [place] [address] [facility] 06/28/24 Sobia Oakes MD [address] [place] [address] Radiation Oncology 07/09/24 Model Maker Relationship Specialty Start Date End Date Erik Cota MD [address] [place] [address] PCP - General Family Medicine 10/25/22 [place] [address] [place], [place] [phone] Specialty Quality Assurance Advisor Hematology/Oncology 01/06/23 PodlogarNaima APRN.TOOL GRINDER SET UP OPERATOR GEAR [address] [place] [address] [facility] 03/13/24 Chasidy Luciano APRN.TOOL GRINDER SET UP OPERATOR GEAR [facility] [place] [address] [facility] 06/28/24 Sobia Oakes MD [address] [place] [address] Radiation Oncology 07/09/24 Model Maker Relationship Specialty Start Date End Date Erik Cota MD [address] [place] [address] PCP - General Family Medicine 10/25/22 [place] [address] [place], [place] [phone] Specialty Quality Assurance Advisor Hematology/Oncology 01/06/23 PodlogarNaima, HEAD START DIRECTOR.TOOL GRINDER SET UP OPERATOR GEAR [facility] [place] 112154 [phone] [facility] Family [facility] 03/13/24 Chasidy Luciano APRN.TOOL GRINDER SET UP OPERATOR GEAR [address] [place], [place] 596964 [phone] Custom [employer] Family [facility] 06/28/24 Sobia Oakes MD [address] [place], [place] 268393 [phone] Radiation Oncology 07/09/24 Model Maker Relationship Specialty Start Date End Date Erik Cota MD [address] [place], [place] 771831 PCP - General Family Medicine 10/25/22 [place] [address] [place], [place] [phone] Specialty Quality Assurance Advisor Hematology/Oncology 01/06/23 PodlogarNaima APRN.TOOL GRINDER SET UP OPERATOR GEAR [address] [place] [address] [facility] 03/13/24 Chasidy Luciano HEAD START DIRECTOR.TOOL GRINDER SET UP OPERATOR GEAR [address] [place] [address] [facility] 06/28/24 Sobia Oakes MD [address] [place], [place] 890177 [phone] Radiation Oncology 07/09/24 Model Maker Relationship Specialty Start Date End Date rEik Cota MD [address] [place] [address] PCP - General Family Medicine 10/25/22 [place] [address] [place], [place] [phone] Specialty Quality Assurance Advisor Hematology/Oncology 01/06/23 PodlogarNaima APRN.TOOL GRINDER SET UP OPERATOR GEAR [address] [place] [address] [facility] 03/13/24 Chasidy Luciano APRN.TOOL GRINDER SET UP OPERATOR GEAR [address] [place] [address] [facility] 06/28/24 Sobia Oakes MD [address] [place], [place] 646401 Radiation Oncology 07/09/24 Model Maker Relationship Specialty Start Date End Date Erik Cota MD [address] [facility] [address] PCP - General Family Medicine 10/25/22 [place] [address] [place] [address] Specialty Quality Assurance Advisor Hematology/Oncology 01/06/23 PodlogarNaima APRN.TOOL GRINDER SET UP OPERATOR GEAR [address] [place] [address] [facility] 03/13/24 Chasidy Luciano APRN.TOOL GRINDER SET UP OPERATOR GEAR [address] [place] [address] [facility] 06/28/24 Sobia Oakes MD [address] [place] [address] Radiation Oncology 07/09/24 Model Maker Relationship Specialty Start Date End Date Erik Cota MD [address] [place], [place] 895871 PCP - General Family Medicine 10/25/22 [place] [address] [place] [address] Specialty Quality Assurance Advisor Hematology/Oncology 01/06/23 Podlogar, HARDY McnamaraN.TOOL GRINDER SET UP OPERATOR GEAR [address] [place] [address] [facility] 03/13/24 Chasidy Luciano APRN.TOOL GRINDER SET UP OPERATOR GEAR [address] [place] [address] 800559 [phone] [facility] 06/28/24 Sobia Oakes MD [address] [place] [address] Radiation Oncology 07/09/24 Model Maker Relationship Specialty Start Date End Date Erik Cota MD [address] [place] [address] PCP - General Family Medicine 10/25/22 [place] [address] [place] [address] Specialty Quality Assurance Advisor Hematology/Oncology 01/06/23 Podlogar, Naima, HEAD START DIRECTOR.TOOL GRINDER SET UP OPERATOR GEAR [address] [place] [address] [phone] [facility] 03/13/24 Chasidy Luciano, HEAD START DIRECTOR.TOOL GRINDER SET UP OPERATOR GEAR [address] [place] [address] [facility] 06/28/24 Sobia Oakes MD [address] [place], [place] 521233 [phone] Radiation Oncology 07/09/24 Model Maker Relationship Specialty Start Date End Date Erik Cota MD [address] [place], [place] 865999 [phone] PCP - General Family Medicine 10/25/22 [place] [address] [facility] [place], [place] [phone] Specialty Quality Assurance Advisor Hematology/Oncology 01/06/23 PodlogarNaima HEAD START DIRECTOR.TOOL GRINDER SET UP OPERATOR GEAR [address] [place], [place] 679881 [facility] Family [facility] 03/13/24 Chasidy Luciano, HEAD START DIRECTOR.TOOL GRINDER SET UP OPERATOR GEAR [address] [place] [address] [facility] 06/28/24 Sobia Oakes MD [address] [place] [address] Radiation Oncology 07/09/24 Model Maker Relationship Specialty Start Date End Date Erik Cota MD [address] [place] [address] PCP - General Family Medicine 10/25/22 [place] [address] [place] [address] Specialty Quality Assurance Advisor Hematology/Oncology 01/06/23 PodlogNaima [place] APRN.TOOL GRINDER SET UP OPERATOR GEAR [address] [place] [address] [facility] 03/13/24 Chasidy Luciano APRN.TOOL GRINDER SET UP OPERATOR GEAR [address] [place] [address] [facility] 06/28/24 Sobia Oakes MD [address] [place] [address] Radiation Oncology 07/09/24 Model Maker Relationship Specialty Start Date End Date Erik Cota MD [address] [place] [address] PCP - General Family Medicine 10/25/22 [place] [address] [place] [address] Specialty Quality Assurance Advisor Hematology/Oncology 01/06/23 PodlogarNaima APRN.TOOL GRINDER SET UP OPERATOR GEAR [address] [place] [address] [facility] 03/13/24 Chasidy Luciano APRN.TOOL GRINDER SET UP OPERATOR GEAR [address] [place], [place] 565644 [phone] [facility] 06/28/24 Sobia Oakes MD [address] [place] [address] Radiation Oncology 07/09/24 Model Maker Relationship Specialty Start Date End Date Erik Cota MD [address] [place], [place] 556541 PCP - General Family Medicine 10/25/22 [place] [address] [place] [address] Specialty Quality Assurance Advisor Hematology/Oncology 01/06/23 Podlogar, Naima, HEAD START DIRECTOR.TOOL GRINDER SET UP OPERATOR GEAR [address] [place], [place] 882851 [facility] 03/13/24 Sobia Oakes MD [address] [place], [place] 7[address] [phone] Radiation Oncology 07/09/24 Model Maker Relationship Specialty Start Date End Date Erik Cota MD [address] [place], [place] 566981 PCP - General Family Medicine 10/25/22 [place] [address] [place] [address] Specialty Quality Assurance Advisor Hematology/Oncology 01/06/23 Podlogar, Naima, HEAD START DIRECTOR.TOOL GRINDER SET UP OPERATOR GEAR [address] [place] [address] [facility] 03/13/24 Sobia Oakes MD [address] [place] [place] [address] Radiation Oncology 07/09/24 Model Maker Relationship Specialty Start Date End Date Erik Cota MD [address] [facility], [place] 648561 PCP - General Family Medicine 10/25/22 [place] [address] [place] [address] Specialty Quality Assurance Advisor Hematology/Oncology 01/06/23 PodlogarNaima APRN.TOOL GRINDER SET UP OPERATOR GEAR [address] [facility], [place] 169301 [facility] 03/13/24 Sobia Oakes MD [address] [place], [place] 978147 [phone] Radiation Oncology 07/09/24 Model Maker Relationship Specialty Start Date End Date Erik Cota MD [address] [facility], [place] 340531 PCP - General Family Medicine 10/25/22 [place] [address] [place] [address] Specialty Quality Assurance Advisor Hematology/Oncology 01/06/23 PodlogarNaima, HEAD START DIRECTOR.TOOL GRINDER SET UP OPERATOR GEAR [address] [facility] [place] [address] Custom [facility] Family Medicine 03/13/24 Sobia Oakes MD [address] [place] [address] Radiation Oncology 07/09/24 Model Maker Relationship Specialty Start Date End Date Erik Cota MD [address] [place] [address] PCP - General Family Medicine 10/25/22 [place] [address] [place] [address] Specialty Quality Assurance Advisor Hematology/Oncology 01/06/23 PodlogarNaima APRN.TOOL GRINDER SET UP OPERATOR GEAR [address] [place] [address] [employer] [facility] Family Medicine 03/13/24 Sobia Oakes MD [address] [place] [address] Radiation Oncology 07/09/24 Model Maker Relationship Specialty Start Date End Date Erik Cota MD [address] [facility] [place] [place] [address] PCP - General Family Medicine 10/25/22 [place] [address] [place] [address] Specialty Quality Assurance Advisor Hematology/Oncology 01/06/23 PodlogarNaima APRN.TOOL GRINDER SET UP OPERATOR GEAR [address] [facility] [place] [address] [facility] Family Medicine 03/13/24 Sobia Oakes MD [address] [place] [address]46[address] [phone] Radiation Oncology 07/09/24 Model Maker Relationship Specialty Start Date End Date Erik Cota MD [address] [place], [place] [address]291 PCP - General Family Medicine 10/25/22 [place] [address] [place] [address] Specialty Quality Assurance Advisor Hematology/Oncology 01/06/23 PodlogarNaima APRN.TOOL GRINDER SET UP OPERATOR GEAR [address] [facility] [place] [address] [facility] Family Medicine 03/13/24 Sobia Oakes MD [address] [place] [address] Radiation Oncology 07/09/24 Model Maker Relationship Specialty Start Date End Date Erik Cota MD [address] [facility] [address] [phone] PCP - General Family Medicine 10/25/22 [place] [address] [place] [address] Specialty Quality Assurance Advisor Hematology/Oncology 01/06/23 PodlogarNaima APRN.TOOL GRINDER SET UP OPERATOR GEAR [address] [facility] [place] [address] [employer] [facility] Family Medicine 03/13/24 Sobia Oakes MD [address] [place] [address] Radiation Oncology 07/09/24 Model Maker Relationship Specialty Start Date End Date Erik Cota MD [address] [place] [address] PCP - General Family Medicine 10/25/22 [place] [address] [place] [address] Specialty Quality Assurance Advisor Hematology/Oncology 01/06/23 PodlogarNaima APRN.TOOL GRINDER SET UP OPERATOR GEAR [address] [place] [address] Custom Furrier Family [facility] 03/13/24 Sobia Oakes MD [address] [place] [address] Radiation Oncology 07/09/24 Chasidy Luciano APRN.TOOL GRINDER SET UP OPERATOR GEAR [address] [place] [address] [facility] 09/16/24 Model Maker Relationship Specialty Start Date End Date Erik Cota MD [address] [place] [address] PCP - General Family Medicine 10/25/22 [place] [address] [place] [address] Specialty Quality Assurance Advisor Hematology/Oncology 01/06/23 PodlogarNaima APRN.TOOL GRINDER SET UP OPERATOR GEAR [address] [place] [address] [facility] 03/13/24 Sobia Oakes MD [address] [place] [address] Radiation Oncology 07/09/24 Chasidy Luciano APRN.TOOL GRINDER SET UP OPERATOR GEAR [address] [place] [address] [facility] 09/16/24 Model Maker Relationship Specialty Start Date End Date Erik Cota MD [address] [place], [place] 140201 PCP - General Family Medicine 10/25/22 [place] [address] [place] [address] Specialty Quality Assurance Advisor Hematology/Oncology 01/06/23 Podlogar, EMELY Mcnamara.TOOL GRINDER SET UP OPERATOR GEAR [address] [place], [place] 679161 [facility] Family [facility] 03/13/24 Sobia Oakes MD [address] [place], [place] [address] Radiation Oncology 07/09/24 Model Maker Relationship Specialty Start Date End Date Erik Cota MD [address] [place], [place] 474741 PCP - General Family Medicine 10/25/22 [place] [address] [place] [address] Specialty Quality Assurance Advisor Hematology/Oncology 01/06/23 Podlogar, Naima HEAD START DIRECTOR.TOOL GRINDER SET UP OPERATOR GEAR [address] [place], [place] [address]47[address] [facility] 03/13/24 Sobia Oakes MD [address] [place] [address] Radiation Oncology 07/09/24 Chasidy Luciano APRN.TOOL GRINDER SET UP OPERATOR GEAR [address] [place] [address] [facility] Model Maker Relationship Specialty Start Date End Date Erik Cota MD [address] [place] [address] PCP - General Family Medicine 10/25/22 [place] [address] [place], [place] [address] Specialty Quality Assurance Advisor Hematology/Oncology 01/06/23 PodlogarNaima APRN.TOOL GRINDER SET UP OPERATOR GEAR [address] [place] [address] [facility] Family [facility] 03/13/24 Sobia Oakes MD [address] [place] [address] Radiation Oncology 07/09/24 Chasidy Luciano APRN.TOOL GRINDER SET UP OPERATOR GEAR [address] [place] [address] [facility] 09/16/24 Model Maker Relationship Specialty Start Date End Date Erik Cota MD [address] [place] [address] PCP - General Family Medicine 10/25/22 [place] [address] [place], [place] [id number] Specialty Quality Assurance Advisor Hematology/Oncology 01/06/23 PodlogarNaima APRN.TOOL GRINDER SET UP OPERATOR GEAR [address] [place] [address] [facility] 03/13/24 Sobia Oakes MD [address] [place] [address] Radiation Oncology 07/09/24 Chasidy Luciano APRN.TOOL GRINDER SET UP OPERATOR GEAR [address] [place] [address] Custom Furrier Family [facility] 09/16/24 Model Maker Relationship Specialty Start Date End Date Erik Cota MD [address] [place] [address] PCP - General Family Medicine 10/25/22 [place] [address] [place] [address] Specialty Quality Assurance Advisor Hematology/Oncology 01/06/23 PodlogarNaima APRN.TOOL GRINDER SET UP OPERATOR GEAR [address] [place] [address] [facility] Family [facility] 03/13/24 Sobia Oakes MD [address] [place] [address] Radiation Oncology 07/09/24 Chasidy Luciano HEAD START DIRECTOR.TOOL GRINDER SET UP OPERATOR GEAR [address] [place] [address] [facility] 09/16/24 Model Maker Relationship Specialty Start Date End Date Erik Cota MD [address] [place] [address] PCP - General Family Medicine 10/25/22 [place] [address] [place], [place] [phone] Specialty Quality Assurance Advisor Hematology/Oncology 01/06/23 PodlogarNaima APRN.TOOL GRINDER SET UP OPERATOR GEAR [address] [facility], [place] [address] [facility] Family [facility] 03/13/24 Sobia Oakes MD [address] [place] [address] Radiation Oncology 07/09/24 Chasidy Luciano APRN.TOOL GRINDER SET UP OPERATOR GEAR [address] [place], [place] 4967[address] [facility] Family [facility] 09/16/24 Model Maker Relationship Specialty Start Date End Date Erik Cota MD [address] [place], [place] 521231 PCP - General Family Medicine 10/25/22 [place] [address] [place] [address] Specialty Quality Assurance Advisor Hematology/Oncology 01/06/23 PodlogarNaima APRN.TOOL GRINDER SET UP OPERATOR GEAR [address] [place] [address] [facility] Family Medicine 03/13/24 Sobia Oakes MD [address] [place] [address] Radiation Oncology 07/09/24 Chasidy Luciano APRN.TOOL GRINDER SET UP OPERATOR GEAR [address] [place] [address] Custom [employer] Family [facility] 09/16/24 Model Maker Relationship Specialty Start Date End Date Erik Cota MD [address] [place] [address] PCP - General Family Medicine 10/25/22 [place] [address] [place] [address] Specialty Quality Assurance Advisor Hematology/Oncology 01/06/23 PodlogarNaima APRN.TOOL GRINDER SET UP OPERATOR GEAR [address] [place] [address] [facility] 03/13/24 Sobia Oakes MD [address] [place] [address] Radiation Oncology 07/09/24 Chasidy Luciano HEAD START DIRECTOR.TOOL GRINDER SET UP OPERATOR GEAR [address] [place] [address] [facility] 09/16/24 Model Maker Relationship Specialty Start Date End Date Erik Cota MD [address] [place] [address] PCP - General Family Medicine 10/25/22 [place] [address] [place], [place] [phone] Specialty Quality Assurance Advisor Hematology/Oncology 01/06/23 PodlogarNaima, HEAD START DIRECTOR.TOOL GRINDER SET UP OPERATOR GEAR [facility] [place], [place] [address] [facility] 03/13/24 Sobia Oakes MD [address] [place], [place] 520[address] Radiation Oncology 07/09/24 Chasidy Luciano HEAD START DIRECTOR.TOOL GRINDER SET UP OPERATOR GEAR [address] [place] [address] [facility] 09/16/24 Model Maker Relationship Specialty Start Date End Date Erik Cota MD [address] [place], [place] 894071 PCP - General Family Medicine 10/25/22 [place] [address] [place], [place] [phone] Specialty Quality Assurance Advisor Hematology/Oncology 01/06/23 PodlogarNaima APRN.TOOL GRINDER SET UP OPERATOR GEAR [address] [place] [address] [facility] 03/13/24 Sobia Oakes MD [address] [place] [address] Radiation Oncology 07/09/24 Chasidy Luciano, HEAD START DIRECTOR.TOOL GRINDER SET UP OPERATOR GEAR [address] [place] [address] [facility] 09/16/24 Model Maker Relationship Specialty Start Date End Date Erik Cota MD [address] [place] [address] PCP - General Family Medicine 10/25/22 [place] [address] [place] [address] Specialty Quality Assurance Advisor Hematology/Oncology 01/06/23 PodlogarNaima APRN.TOOL GRINDER SET UP OPERATOR GEAR [address] [place] [address] Custom Furrier Family [facility] 03/13/24 Sobia Oakes MD [address] [place] [facility] [address] Radiation Oncology 07/09/24 Chasidy Luciano APRN.TOOL GRINDER SET UP OPERATOR GEAR [address] [place] [address] [facility] 09/16/24 Model Maker Relationship Specialty Start Date End Date Erik Cota MD [address] [place] [address] PCP - General Family Medicine 10/25/22 [place] [address] [place] [address] Specialty Quality Assurance Advisor Hematology/Oncology 01/06/23 PodlogarNaima APRN.TOOL GRINDER SET UP OPERATOR GEAR [address] [place] [address] [facility] Family [facility] 03/13/24 Sobia Oakes MD [address] [place] [address] Radiation Oncology 07/09/24 Chasidy Luciano APRN.TOOL GRINDER SET UP OPERATOR GEAR [address] [place] [address] [facility] Family [facility] 09/16/24 Model Maker Relationship Specialty Start Date End Date Erik Cota MD [address] [place], [place] 687384 [phone] PCP - General Family Medicine 10/25/22 [place] [address] [place], [place] [id number] Specialty Quality Assurance Advisor Hematology/Oncology 01/06/23 PodlogarNaima APRN.TOOL GRINDER SET UP OPERATOR GEAR [address] [place], [place] 401454 [phone] [facility] Family [facility] 03/13/24 Sobia Oakes MD [address] [place] [address] Radiation Oncology 07/09/24 Chasidy Luciano HEAD START DIRECTOR.TOOL GRINDER SET UP OPERATOR GEAR [address] [place] [address] [facility] 09/16/24 Model Maker Relationship Specialty Start Date End Date Erik Cota MD [address] [place] [address] PCP - General Family Medicine 10/25/22 [place] [address] [place], [place] [id number] Specialty Quality Assurance Advisor Hematology/Oncology 01/06/23 PodlogarNaima APRN.TOOL GRINDER SET UP OPERATOR GEAR [address] [place], [place] 731752 [phone] [facility] Family [facility] 03/13/24 Sobia Oakes MD [address] [place], [place] 5414[address] Radiation Oncology 07/09/24 Chasidy Luciano APRN.TOOL GRINDER SET UP OPERATOR GEAR [address] [place], [place] 303681 [facility] 09/16/24 Model Maker Relationship Specialty Start Date End Date Erik Cota MD [address] [place], [place] 255241 PCP - General Family Medicine 10/25/22 [place] [address] [place], [place] [id number] Specialty Quality Assurance Advisor Hematology/Oncology 01/06/23 PodlogarNaima APRN.TOOL GRINDER SET UP OPERATOR GEAR [address] [place], [place] 256741 [facility] 03/13/24 Sobia Oakes MD [address] [place], [place] 212[address] Radiation Oncology 07/09/24 Chasidy Luciano APRN.TOOL GRINDER SET UP OPERATOR GEAR [address] [place], [place] 655[address] [facility] 09/16/24 Inactive Administered Medications - up to 3 most recent administrations Administered Medications (un recognized section and content) Medication Order MAR Action Action Date Dose Rate Site bupivacaine(PF) 0.75 % (7.5 mg/mL) 7.5 mg injection (MARCAINE PF) 7.5 mg, OTHER, ONCE, 1 dose, On Fri05/21/23 at 0800 Given by [facility] 05/21/2023 7:53 AM EST 7.5 mg iohexol 300 mg injection (OMNIPAQUE 300) 300 mg, OTHER, ONCE, 1 dose, On Fri05/21/23 at 0800 Given by [facility] 05/21/2023 7:54 AM EST 300 mg lidocaine (PF) 10 mg/mL (1 %) 100 mg injection (XYLOCAINE) 100 mg, OTHER, ONCE, 1 dose, On Fri05/21/23 at 0800 Given by [facility] 05/21/2023 7:54 AM EST 100 mg Inactive Administered Medications - up to 3 most recent administrations Medication Order MAR Action Action Date Dose Rate Site bupivacaine(PF) 0.75 % (7.5 mg/mL) 7.5 mg injection (MARCAINE PF) 7.5 mg, OTHER, ONCE, 1 dose, On Fri06/04/23 at 0800 Given by [facility] 06/04/2023 7:43 AM EST 7.5 mg iohexol 300 mg injection (OMNIPAQUE 300) 300 mg, OTHER, ONCE, 1 dose, On Fri06/04/23 at 0800 Given by [facility] 06/04/2023 7:44 AM EST 300 mg lidocaine (PF) 10 mg/mL (1 %) 100 mg injection (XYLOCAINE) 100 mg, OTHER, ONCE, 1 dose, On Fri06/04/23 at 0800 Given by [facility] 06/04/2023 7:44 AM EST 100 mg Inactive Administered Medications - up to 3 most recent administrations Medication Order MAR Action Action Date Dose Rate Site leuprolide 22.5 mg injection (LUPRON DEPOT) 22.5 mg, INTRAMUSCULAR, ONCE, 1 dose, On Fri06/16/23 at 0900, Hazardous Chemotherapy Drug: Use appropriate PPE. Given 06/16/2023 9:04 AM EDT 22.5 mg Buttocks, Left Inactive Administered Medications - up to 3 most recent administrations Medication Order MAR Action Action Date Dose Rate Site 0.9% NaCl 10 mL flush 10 mL, OTHER, ONCE, 1 dose, On Fri07/16/23 at 1100 Given by [facility] 07/16/2023 11:12 AM EDT 10 mL bupivacaine(PF) 0.75 % (7.5 mg/mL) 7.5 mg injection (MARCAINE PF) 7.5 mg, OTHER, ONCE, 1 dose, On 4/10/24 at 1200 Given by [facility] 07/16/2023 11:51 AM EDT 7.5 mg lidocaine (PF) 20 mg/mL (2 %) 200 mg injection (XYLOCAINE) 200 mg, OTHER, ONCE, 1 dose, On Fri07/16/23 at 1100 Given by [facility] 07/16/2023 11:12 AM EDT 200 mg methylPREDNISolone acetate 40 mg injection (DEPO-Medrol) 40 mg, OTHER, ONCE, 1 dose, On Fri07/16/23 at 1100 Given by [facility] 07/16/2023 11:13 AM EDT 40 mg FOR RECORDS PERTAINING TO PATIENTS WHO ARE OR HAVE BEEN ENROLLED IN A CHEMICAL DEPENDENCY/SUBSTANCEABUSE PROGRAM, SOME INFORMATION MAY BE OMITTED. This clinical summary was aggregated from multiple sources. Caution should be exercised in using it in the provision of clinical care. This summary normalizes information from multiple sources, and as a consequence, information in this document may materially change the coding, format and clinical context of patient data. In addition, data may be omitted in some cases. CLINICAL DECISIONS SHOULD BE BASED ON THE PRIMARY CLINICAL RECORDS. [facility] [employer] [facility]. provides no warranty or guarantee of the accuracy or completeness of information in this document.
[2024-11-16 07:29] LABS: Hematocrit 38.0 % (40-54); Hemoglobin 12.7 g/dL (13.0-16.5); Immature Granulocytes Count 0.170 X10^3/uL (0.0-0.0); Mean Corp Hgb Conc 33.4 g/dL (32-36); Mean Corpuscular Volume 97.7 fL (80-94); Mean Platelet Vol. 9.9 fl (6.2-12.0); NRBC Flagged by Analyzer 0 % (0-5); POSITIVE DIFFERENTIAL YES; POSITIVE MORPHOLOGY YES; Platelet Count 223 K/mm3 (150-450); RBC Distribution Width CV 13.8 % (11.6-14.6); RBC Distribution Width SD 49.2 fl (35.1-43.9); Red Blood Count 3.89 M/mm3 (4.6-6.2); White Blood Count 18.2 K/mm3 (4.4-11.0)
[2024-11-16 07:42] LABS: Differential Indicated SCAN CRITERIA MET
--- NOTE | 2024-11-16 07:43 | EDS_ITS ---
HPI History of Present Illness Chief Complaint: Weakness Informant: patient and spouse/S.O. Narrative Narrative: Patient is a 69-year-old male with hypertension hyperlipidemia and stage IV prostate cancer currently on daily chemotherapy. He also receives monthly infusions. He states he does not typically have any issue with his medication. He states that last night he began to have subjective chills and overall sensation of feeling unwell and fatigue. Symptoms worsened this morning to the point where he was slow to respond having a headache and difficulty ambulating secondary to his generalized weakness. With concern for potential infection causing his symptoms EMS was called and he was brought in for evaluation [facility] Medical History Closed cervical spine fracture Prostate cancer metastatic to pelvis Home Medications ?Medication ?Instructions ?Recorded ?Last Taken ?Type acetaminophen 500 mg capsule 500 mg PO Q8H PRN 5 Unknown History albuterol sulfate 90 mcg/actuation 2 inh inhalation Q4 H 11/16/24 Unknown History aerosol inhaler amlodipine 5 mg tablet 5 mg PO DAILY 11/16/24 Unkno wn History atenolol 25 mg tablet 25 mg PO DAILY 11/16/24 Unkn own History atenolol 50 mg tablet 50 mg PO DAILY 11/16/24 Unkn own History atorvastatin 40 mg tablet 40 mg PO DAILY 11/16/24 Unkn own History cholecalciferol (vitamin D3) 50 50 mcg PO DAILY Unknown History mcg (2,000 unit) capsule cyclobenzaprine 10 mg tablet 10 mg PO QHS 11/16/24 Unk nown History dexamethasone 1 mg tablet 1 mg PO Q24H 11/16/24 Unknow n History enzalutamide 80 mg tablet (Xtandi) 160 mg PO Q24H 11/05 06/01 Unknown History famotidine 40 mg tablet 40 mg PO DAILY 11/16/24 Unkn own History fluticasone fur. 200 mcg-umeclid 1 inh inhalation EVELYNE Y 11/16/24 Unknown History 62.5 mcg-vilant 25 mcg inhalat.powder (Trelegy Ellipta) lisinopril 40 mg tablet 40 mg PO DAILY 11/16/24 Unkn own History meloxicam 15 mg tablet 15 mg PO DAILY 11/16/24 Unkn own History multivitamin 1 tab PO DAILY 11/16/24 Unkn own History omeprazole 40 mg capsule,delayed 40 mg PO BID 11/16/24 Unknown History release pregabalin 150 mg capsule 150 mg PO Q8 11/16/24 Unknow n History sennosides 8.6 mg capsule (senna) 8.6 mg PO BID Unknown History Allergy/AdvReac Type Severity Reaction Status Date / Time morphine Allergy Rash Verified 11/16/24 05:55 prednisone AdvReac Other Verified 11/16/24 05:55 Surgical History Hx of bladder repair surgery Hx of prostatectomy S/P ORIF (open reduction internal fixation) fracture History of herniorrhaphy Hx of appendectomy Social History (Updated 09/13/22 @ 21:[address] Sb Mitchell, DO) Smoking Status: Current every day smoker tobacco type: cigarettes ROS ROS ED Constitutional Constitutional ED: Reports chills, fever(s) and subjective Eyes Eyes: Denies change in vision ENT ENT ED: Denies rhinorrhea or sore throat Cardiovascular Cardiovascular: Denies chest pain Respiratory/Chest Respiratory/Chest: Denies cough or dyspnea Gastrointestinal Gastrointestinal: Denies abdominal pain, diarrhea, nausea or vomiting Genitourinary Genitourinary ED: Denies dysuria Musculoskeletal Musculoskeletal: Reports myalgias Integumentary Denies rash Neurologic Neurologic: Reports headache(s) and weakness Hematologic/Lymphatic Hematologic/Lymphatic: Denies easy bleeding or easy bruising EXAM Physical Exam Const Vital Signs: 11/16/24 05:55 11/16/24 05:59 Temperature 98.5 F Temperature Source Oral Pulse Rate 78 Respiratory Rate 17 Respiratory Effort Short of Breath Blood Pressure 117/71 Blood Pressure Mean 86 Pulse Ox 95 Positive well nourished and well developed General Appearance ED: well developed HEENT Reports dry mucous membranes HEENT Narrative: Normocephalic atraumatic No tongue or lip swelling no oral lesions no airway edema or compromise Mucous membranes are dry intact No secondary findings in the posterior pharynx to suggest infection Mouth ED: Yes dry mucous membranes Mouth: dry mucous membranes Eyes PERRL and EOMs intact bilaterally General Eye ED: Negative for pale conjunctiva or scleral icterus Neck supple and no JVD Neck Narrative: No nuchal rigidity or meningeal signs Chest Wall palpation of chest normal Resp normal respiratory effort and clear to auscultation bilaterally Resp Narrative: Breath sounds are diminished throughout but overall clear to auscultation without signs of respiratory distress Cardio regular rate and regular rhythm Rate: other Other Details: Heart is regular rate and rhythm Radial and carotid pulses are equal and symmetric GI non-tender, non-distended and no masses GI Narrative: Soft nontender nondistended with hypoactive bowel sounds. No voluntary guarding or rigidity or pulsatile mass. No peritoneal signs Auscultation: hypoactive bowel sounds Palpation: soft Extremity Extremity Narrative: +1 pitting edema to the bilateral lower extremities that is equal and symmetric No signs of long bone injury such as bony deformity or joint effusion All compartments are soft and compressible going against compartment syndrome Neuro oriented x3 and CN's II-XII intact bilaterally Neuro Narrative: GCS of 14; patient will open eyes to voice Patient is lethargic and slightly slow to respond but overall has no focal neurologic deficit NIH stroke scale score of 0 Sensorium / Orientation: lethargic Psych mental status grossly normal Skin no rashes or lesions noted and No skin turgor normal Skin Narrative: No overlying soft tissue changes to suggest trauma or infection Skin turgor is increased consistent with dry mucous membranes indicating dehydration General Skin Exam: Negative for jaundice MDM MDM MDM Narrative Medical decision making narrative: Patient arrived to the ER with stable vitals. He reported subjective fevers and chills beginning last night with increased fatigue this morning. Other than the subjective fevers chills and fatigue he denied cough congestion sore throat abdominal pain nausea vomiting diarrhea or dysuria. With his report of headache coupled with symptoms there is concern this could be viral in nature such as COVID influenza or RSV. Patient also could have atypical pneumonia. With headache and fatigue and known prostate cancer there is concern for metastatic lesions to the brain. As physical exam shows dehydration there is also concern for acute kidney injury or severe electrolyte abnormality. Secondary to this patient had a head CT and chest x-ray obtained. These images revealed no acute finding. Blood work was ordered as well as blood cultures secondary to his immunosuppression and concern for systemic infection. The white blood cell count is elevated to 18.2 and the neutrophil count is elevated at 15.3. This could be related to his daily dexamethasone use but is most likely secondary to a developing infection. As we are still pending lactic acid procalcitonin and urine sample I will hold off on antibiotics at this time especially as vital signs do not trigger septic protocol. Patient is not neutropenic. At this time the remainder of his labs and urine sample are still pending and patient may need further evaluation with CT scans to assess for a potential missed infection. He does not have meningeal signs and therefore I do not feel there is need for a lumbar puncture. As remainder of the labs are still pending with potential need for admission or transfer or further imaging studies I will sign the patient out to the day physician Dr. Sosa History & Record Review Discussion w/independent historian: Patient and Significant other Lab Data Attestation: I reviewed the patient's lab results. Labs: Laboratory Results - last 24 hr 11/16/24 07:08 WBC 18.2 H RBC 3.89 L Hgb 12.7 L Hct 38.0 L MCV 97.7 H MCH 32.6 H MCHC 33.4 RDW Std Deviation 49.2 H RDW Coeff of Maria De Jesus 13.8 Plt Count 223 MPV 9.9 Immature Gran % (Auto) 0.900 Neut % (Auto) 84.3 H Lymph % (Auto) 4.6 L [place] % (Auto) 9.6 Eos % (Auto) 0.2 Baso % (Auto) 0.4 Absolute Neuts (auto) 15.3 H Absolute Lymphs (auto) 0.83 Nucleated RBC % 0 Radiography Diagnostic Testing: Clinical Impression(s) from Imaging Studies Brain CT 11/16/24 06:08 IMPRESSION: 1. No acute intracranial hemorrhage, midline shift or mass effect. If symptoms persist, further evaluation with MRI is recommended. 2. Mild small vessel ischemic/degenerative changes. Reading Location: [facility] Chest X-Ray 11/16/24 06:45 IMPRESSION: No acute cardiopulmonary process. Reading Location: [facility] Chest x-ray as interpreted by the emergency medicine physician reveals no acute infiltrate pneumothorax or pleural effusion Discharge Plan Triage Chief Complaint: Weakness ED Provider: Darion Sanchez Dx/Rx/DC Orders Clinical Impression: Generalized weakness, Prostate cancer, Dehydration, Leukocytosis Prescriptions: No Action meloxicam 15 mg tablet 15 mg PO DAILY dexamethasone 1 mg tablet 1 mg PO Q24H Trelegy Ellipta 200-62.5-25 mcg blister with device 1 inh inhalation DAILY famotidine 40 mg tablet 40 mg PO DAILY amlodipine 5 mg tablet 5 mg PO DAILY omeprazole 40 mg capsule,delayed release(DR/EC) 40 mg PO BID lisinopril 40 mg tablet 40 mg PO DAILY senna 8.6 mg capsule 8.6 mg PO BID atorvastatin 40 mg tablet 40 mg PO DAILY atenolol 25 mg tablet 25 mg PO DAILY albuterol sulfate 90 mcg/actuation HFA aerosol inhaler 2 inh inhalation Q4H atenolol 50 mg tablet 50 mg PO DAILY pregabalin 150 mg capsule 150 mg PO Q8 Xtandi 80 mg tablet 160 mg PO Q24H cyclobenzaprine 10 mg tablet 10 mg PO QHS cholecalciferol (vitamin D3) 50 mcg (2,000 unit) capsule 50 mcg PO DAILY multivitamin Tablet 1 tab PO DAILY acetaminophen 500 mg capsule 500 mg PO Q8H PRN Primary Care Provider: Killian Howard Referrals: Killian Howard MD [Primary Care Provider] - Print Language: Setswana
[2024-11-16 08:09] LABS: Ammonia 15.8 umol/L (16-60)
[2024-11-16 08:12] LABS: AST(SGOT) 30 U/L (<=37); Alanine Aminotransfer ALT/SGPT 10 U/L (<=46); Albumin, Serum 3.7 g/dL (3.4-4.8); Alkaline Phosphatase 79 U/L (40-129); Anion Gap 12 (5-15); BUN 14 mg/dL (4-19); BUN/Creat Ratio 12.4 RATIO (10-20); Bilirubin, Direct 0.34 mg/dL (0.00-0.30); Calcium,Total 9.2 mg/dL (7.6-11.0); Carbon Dioxide 22.2 mmol/L (21.0-32.0); Chloride 102 mmol/L (98-108); Estimated Creatinine Clearance 67.16 ml/min (50-250); Globulin 3.4 g/dL (2.2-4.2); Glucose 102 mg/dL (70-99); Magnesium 1.9 mg/dL (1.5-2.2); Potassium 4.2 mmol/L (3.3-5.1); Procalcitonin 2.16 ng/mL (<=0.10)
[2024-11-16 09:38] LABS: Mucous, Urine 0 SEEN /hpf (<or=2+); Red Blood Cells-Urine 0 SEEN /hpf (0-5); Squamous Epithelial Cells - UA 0 SEEN /hpf (0-5)
[2024-11-16 09:54] LABS: Color, Urine Yellow (Yellow); Glucose, Dipstick Normal (Normal); Ketone-Dipstick Negative (Negative); Leukocyte Esterase-Dipstick Negative /ul (Negative); Nitrite-Dipstick Negative (Negative); Occult Blood-Urine 25 /ul (Negative); Protein-Dipstick 30 mg/dl (Negative); Specific Gravity, Urine 1.010 (1.002-1.030); Urine Bilirubin Dipstick Negative (Negative)
--- NOTE | 2024-11-16 11:15 | PCM.HP.STD ---
HPI - General General Date of Admission: 11/16/24 Date of Service: 11/16/24 Chief Complaint: weakness, fever HPI Narrative TETE AGUILA, is a 69 M with a PMH as outlined who presents via the ED On with a complaint of fever and chills as well as generalised feeling of unwellness and fatigue. He has a history of stage IV prostate cancer and is undergoing oral chemotherapy. and also gets a monthly iV chemo infusion. He denied any nausea, vomiting, shortness of breath, abdominal pain or any such symptoms. Review of systems was otherwise negative. Vitals in the ED were BP of 136/74, MO of 90, RR of 18 and oxygen sats of 95% on room air. CBC showed hb of 12.7, wbc of 18.2, platelets of 223. Chemistry showed sodium of 136, potassium of 4.2, bicarb of 22.2 and Cr of 1.09. Total bilirubin was 0.86, direct bilirubin of 0.34. Procalcitonin was 2.16 and urinalysis showed no evidence of UTI. He is being admitted to be managed for debility and weakness in patient with known prostate cancer of unclear etiology. [facility] Medical History (Updated 11/16/24 @ 11:54 by Sanket Mes[place]) Osteoarthritis Hyperlipidemia GERD (gastroesophageal reflux disease) HTN (hypertension) Abdominal aortic aneurysm (AAA) HTN (hypertension) COPD (chronic obstructive pulmonary disease) Closed cervical spine fracture Prostate cancer metastatic to pelvis Home Medications ?Medication ?Instructions ?Recorded ?Last Taken ?Type acetaminophen 500 mg capsule 500 mg PO Q8H PRN Pain 11/16/24 Unknown History albuterol sulfate 90 mcg/actuation 2 inh inhalation Q4H Respitory 11/16/24 11/15/24 History aerosol inhaler amlodipine 5 mg tablet 5 mg PO DAILY B/P 11/16/24 11/15/24 History atenolol 25 mg tablet 25 mg PO DAILY B/P 11/16/24 11/15/24 History atenolol 50 mg tablet 50 mg PO DAILY B/P 11/16/24 11/15/24 History atorvastatin 40 mg tablet 40 mg PO DAILY Cholesterol 11/16/24 11/15/24 History cholecalciferol (vitamin D3) 50 50 mcg PO DAILY Bone health 11/16/24 11/15/24 History mcg (2,000 unit) capsule cyclobenzaprine 10 mg tablet 10 mg PO QHS Muscle achs 11/16/24 11/15/24 History dexamethasone 1 mg tablet 1 mg PO Q24H chemo treatments 11/16/24 11/15/24 History enzalutamide 80 mg tablet (Xtandi) 160 mg PO Q24H Prostate cancer 11/16/24 11/15/24 History famotidine 40 mg tablet 40 mg PO DAILY Acid 11/16/24 11/15/24 History fluticasone fur. 200 mcg-umeclid 1 inh inhalation DAILY respitory 11/16/24 11/15/24 History 62.5 mcg-vilant 25 mcg inhalat.powder (Trelegy Ellipta) lisinopril 40 mg tablet 40 mg PO DAILY B/P 11/16/24 11/15/24 History meloxicam 15 mg tablet 15 mg PO DAILY 11/16/24 Unknown History multivitamin 1 tab PO DAILY General health 11/16/24 11/15/24 History omeprazole 40 mg capsule,delayed 40 mg PO BID Gerd 11/16/24 11/15/24 History release pregabalin 150 mg capsule 150 mg PO Q8 Mental health 11/16/24 11/15/24 History sennosides 8.6 mg capsule (senna) 8.6 mg PO BID constipation 11/16/24 11/15/24 History Allergy/AdvReac Type Severity Reaction Status Date / Time morphine Allergy Rash Verified 11/16/24 05:55 prednisone AdvReac Other Verified 11/16/24 05:55 Surgical History Hx of bladder repair surgery Hx of prostatectomy S/P ORIF (open reduction internal fixation) fracture History of herniorrhaphy Hx of appendectomy Social History (Updated 09/13/22 @ 21:[address] Sb Mitchell, DO) Smoking Status: Current every day smoker tobacco type: cigarettes ROS ROS Narrative mainly obtained from as he is very lethargic Constitutional Constitutional: Reports anorexia, chills, fatigue, fever(s), malaise and weakness Eyes Eyes: Denies change in vision ENT HEENT: Denies dysphagia, headache(s) or sore throat Cardiovascular Cardiovascular: Denies chest pain, dyspnea on exertion, lightheadedness, orthopnea, palpitations, paroxysmal nocturnal dyspnea, rapid heart rate or syncope Respiratory/Chest Respiratory/Chest: Denies cough, dyspnea, productive cough or shortness of breath with exertion Gastrointestinal Gastrointestinal: Denies constipation, diarrhea, nausea or vomiting Genitourinary Genitourinary: Denies burning urination or dysuria Musculoskeletal Musculoskeletal: Denies joint pain Neurologic Neurologic: Reports confusion; Denies dizziness, focal weakness, headache(s) or numbness Psychiatric Psychiatric: Denies anxiety Vital Signs Vital Signs Vital Signs: 11/16/24 05:55 11/16/24 05:59 11/16/24 07:55 Temperature 98.5 F Temperature Source Oral Pulse Rate 78 89 Respiratory Rate 17 18 Respiratory Effort Short of Breath Blood Pressure 117/71 134/78 H Blood Pressure Mean 86 96 Pulse Ox 95 98 Oxygen Delivery Method Room Air 11/16/24 09:00 11/16/24 11:00 Temperature Temperature Source Pulse Rate 83 90 Respiratory Rate 18 18 Respiratory Effort Blood Pressure 149/80 H 136/74 H Blood Pressure Mean 103 94 Pulse Ox 97 95 Oxygen Delivery Method Room Air Room Air Weight Weight: 178 lb 2.136 oz Body Mass Index (BMI) 24.8 Physical Exam Const Constitutional Narrative: confusedd, lethargic, frail and weak General Appearance: cooperative HEENT normocephalic and hearing grossly normal bilaterally HEENT Narrative: dry oral mucosal membranes Eyes EOMs intact bilaterally and conjunctivae normal Neck no lymphadenopathy and supple Resp normal respiratory effort, no retractions, no use of accessory muscles and clear to auscultation bilaterally Cardio regular rate, regular rhythm, S1 normal heart sound, S2 normal heart sound and no murmurs GI normal to inspection, nondistended, normoactive bowel sounds, soft to palpation, non-tender and non-distended Extremity normal to inspection and no clubbing, cyanosis or edema Neuro Neuro Narrative: lethargic, weak and frail Sensorium / Orientation: awake and alert Motor Exam: strength 5/5 throughout Psych affect normal Results Lab / Micro Data 11/16/24 07:08 11/16/24 07:08 Labs: Laboratory Results - last 24 hr 11/16/24 07:08: WBC 18.2 H, RBC 3.89 L, Hgb 12.7 L, Hct 38.0 L, MCV 97.7 H, MCH 32.6 H, MCHC 33.4, RDW Std Deviation 49.2 H, RDW Coeff of Maria De Jesus 13.8, Plt Count 223, MPV 9.9, Immature Gran % (Auto) 0.900, Neut % (Auto) 84.3 H, Lymph % (Auto) 4.6 L, [place] % (Auto) 9.6, Eos % (Auto) 0.2, Baso % (Auto) 0.4, Absolute Neuts (auto) 15.3 H, Absolute Lymphs (auto) 0.83, Nucleated RBC % 0, Platelet Estimate ADEQUATE, Sodium 136, Potassium 4.2, Chloride 102, Carbon Dioxide 22.2, Anion Gap 12, BUN 14, Creatinine 1.09, Estim Creat Clear Calc 67.16, Est GFR (MDRD) Non-Af 73, BUN/Creatinine Ratio 12.4, Glucose 102 H, Lactic Acid 1.2, Calcium 9.2, Magnesium 1.9, Total Bilirubin 0.86, Direct Bilirubin 0.34 H, AST 30, ALT 10, Alkaline Phosphatase 79, Ammonia 15.8 L, Total Protein 7.2, Albumin 3.7, Globulin 3.4, Procalcitonin 2.16 H 11/16/24 09:33: Urine Color Yellow, Urine Clarity Sl. Cloudy, Urine pH 6.5, Ur Specific [place] 1.010, Urine Protein 30 H, Urine Glucose (UA) Normal, Urine Ketones Negative, Urine Occult Blood 25 H, Urine Nitrite Negative, Urine Bilirubin Negative, Urine Urobilinogen Normal, Ur Leukocyte Esterase Negative, Urine RBC 0 SEEN, Urine WBC 0 SEEN, Ur Squamous Epith Cells 0 SEEN, Urine Bacteria 0 SEEN, Urine Mucus 0 SEEN Micro: Microbiology 11/16/24 06:30 Mucosa - Nose SARS-CoV-2, Influenza & RSV (PCR) - Final Imaging Radiology Impression Brain CT 11/16/24 06:08 IMPRESSION: 1. No acute intracranial hemorrhage, midline shift or mass effect. If symptoms persist, further evaluation with MRI is recommended. 2. Mild small vessel ischemic/degenerative changes. Reading Location: [facility] Chest X-Ray 11/16/24 06:45 IMPRESSION: No acute cardiopulmonary process. Reading Location: [facility] Assessment & Plan Assessment/Plan (1) Leukocytosis: (2) Dehydration: PLAN: Plan #Acute encephalopathy Patient admitted with a complaint of lethargy and confusion. He also had a fever and generally felt unwell. On admission he has elevated white cell count and was also febrile. Procalcitonin is also elevated. Blood and urine cultures obtained. Patient started on IV vancomycin and Zosyn. Hydrate gently with IV fluids and monitor. Urinalysis did not show any evidence of UTI. #SIRS criteria Patient was tachypneic and had a temperature of 103.2 Fahrenheit on admission and also has elevated WBC. However there is no evidence of endorgan damage so I cannot clearly say that he has sepsis. Procalcitonin is 2.16. On admission to the floor the symptoms resolved. His lactic acid was only 1.2. Management as above. #History of stage IV prostate cancer with mets to the bone He did have CT of the brain on admission we did not show any evidence of mets. According to his he gets Lupron shots as well as oral chemo- enzalutamide follows art Dai of [facility] oncology #Hypertension; on amlodipine and lisinopril as well as atenolol #Hyperlipidemia: on statin DVT prophylaxis: lovenox COde status: DNRCCA no intubation Patient's counseled extensively about different types of CODE STATUS including full code, DNR CCA and DNR CCA. Patient's stated that patient had always said he did not want CPR or intubation but would want everything else done for him. Total [id number] time with patient's 17 minutes. Charges/Coding Visit Charges Inpatient E&M: 35950 Init Hosp L3 Procedures Hospitalists Procedures: 39620 Advncd Care Plan 30 Min
[2024-11-16] MEDS: Cefepime HCl 2 GM in 0.9% Normal Saline (100mL MB+) 100 ML IV (11:32)
--- NOTE | 2024-11-16 12:31 | CASEMGMT ---
Care Management Face to Face with patient for initial transition planning/care coordination assessment in the ED.? This underwriter introduced self and role at [facility]. Patient alert and oriented. Patient willing to participate in assessment and is able to answer all questions appropriately.? Care providers, pharmacy, and demographics verified. Admitting Diagnosis: dehydration Other diagnosis history: ?stage 4 prostate cancer on daily chemo, hypertension, hyperlipidemia PCP: ?Lee Specialists: ?Salazar Dai Preferred Pharmacy: [facility] Insurance: Medicare Prescription Benefit: ?yes Living Will/HPOA: ?LW, HPOA completed LNOK: Living Arrangements: ?Lives with in one story home.? Patient has been independent with ADLs and IADLs.? 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 Transportation: patient drives DME: ?shower chair, cane HHC: ?none SNF/Rehab: ?none Community Resources: ?On Palliative care through [facility] History: ?depression Patient goals:? Discharge plans are uncertain at this time. Disposition Plan: admission to acute; RN CM/SW to follow for discharge planning needs that may arise. Laurie Landa, FRONT END MANAGER, POWDER WORKER
[2024-11-16] MEDS: 0.9% Normal Saline (1000mL) 1,000 ML 150 ML IV ×2 (15:16→22:41)
[2024-11-16] MEDS: Vancomycin HCl 2,000 MG in 0.9% Normal Saline (500mL Bag) 500 ML 250 MG IV (15:16)
[2024-11-16] MEDS: 0.9% Saline Lock 10 ML Syringe IV ×2 (15:17→22:41)
[2024-11-16] MEDS: Piperacil/Tazobactam 3.375 GM in 0.9% Normal Saline (50mL MB+) 50 ML IV ×2 (15:17→22:40)
--- NOTE | 2024-11-16 15:37 | PCM.RX.CS ---
Consult Antibiotic Management Pharmacy has been consulted to manage selected antibiotic: Vancomycin Type of Intervention Type of Consult: New start Suspected Infection Suspected Infection: Other (EMPIRIC) Prior Doses of Antibiotics Prior Doses of Antibiotics Received/Current Regimen: Vancomycin 2000 mg IV x 1 given 11/16/24 @ 2235 Labs Labs: Sodium 136 mmol/L (133-145) 11/16/24 07:08 Potassium 4.2 mmol/L (3.3-5.1) 11/16/24 07:08 Chloride 102 mmol/L (98-108) 11/16/24 07:08 Carbon Dioxide 22.2 mmol/L (21.0-32.0) 11/16/24 07:08 Anion Gap 12 (5-15) 11/16/24 07:08 BUN 14 mg/dL (4-19) 11/16/24 07:08 Creatinine 1.09 mg/dL (0.70-1.20) 11/16/24 07:08 Est GFR (MDRD) Non-Af 73 (>60) 11/16/24 07:08 BUN/Creatinine Ratio 12.4 RATIO (10-20) 11/16/24 07:08 Glucose 102 mg/dL (70-99) H 11/16/24 07:08 Microbiology Microbiology: Microbiology 11/16/24 06:30 Mucosa - Nose SARS-CoV-2, Influenza & RSV (PCR) - Final Dosing Weight Weight used for dosin.8 kg Estimated Creatinine Clearance Estimated Creatinine Clearance: ~ 67 Goal Trough Goal Trough: 15-20 mcg/mL Pharmacy Plan for Drug Dosing Pharmacy Plan for Drug Dosing: Vancomycin 2000 mg IV x 1 followed by 1000 mg Q12H Pharmacy Service will continue to monitor and adjust dosing as required. Follow-Up Labs Follow-Up Labs: Trough: Vancomycin Date/Time Labs Ordered Labs to be done on [date and time ordered]: 11/18/24 @ 0236
[2024-11-16] MEDS: ENZALUTAMIDE 80 MG TABLET 160 MG PO (18:49)
[2024-11-16] MEDS: Budesonide Respules 0.5 MG/2 ML AMPUL.NEB. INHALATION (20:43)
[2024-11-17 03:30] VITALS: BP 127/73; PULSE 79; RESP 14; TEMP 37.2; O2SAT 98
[2024-11-17] MEDS: Vancomycin HCl 1,000 MG in 0.9% Normal Saline (250mL Bag) 250 ML 250 MG IV ×2 (03:51→15:08)
[2024-11-17] MEDS: Piperacil/Tazobactam 3.375 GM in 0.9% Normal Saline (50mL MB+) 50 ML IV ×3 (06:10→21:01)
[2024-11-17 06:46] LABS: Hematocrit 31.9 % (40-54); Hemoglobin 10.4 g/dL (13.0-16.5); Immature Granulocytes Count 0.260 X10^3/uL (0.0-0.0); Mean Corp Hgb Conc 32.6 g/dL (32-36); Mean Corpuscular Volume 98.8 fL (80-94); Mean Platelet Vol. 10.5 fl (6.2-12.0); NRBC Flagged by Analyzer 0 % (0-5); POSITIVE MORPHOLOGY YES; Platelet Count 156 K/mm3 (150-450); RBC Distribution Width CV 14.0 % (11.6-14.6); RBC Distribution Width SD 50.7 fl (35.1-43.9); Red Blood Count 3.23 M/mm3 (4.6-6.2); White Blood Count 15.6 K/mm3 (4.4-11.0)
[2024-11-17 06:48] LABS: Differential Indicated SCAN CRITERIA MET
[2024-11-17 08:01] LABS: Anion Gap 11 (5-15); BUN 12 mg/dL (4-19); BUN/Creat Ratio 11.8 RATIO (10-20); Calcium,Total 7.8 mg/dL (7.6-11.0); Carbon Dioxide 19.3 mmol/L (21.0-32.0); Chloride 107 mmol/L (98-108); Estimated Creatinine Clearance 73.21 ml/min (50-250); Glucose 115 mg/dL (70-99); Potassium 3.3 mmol/L (3.3-5.1)
[2024-11-17 09:22] VITALS: BP 136/72; PULSE 90; RESP 20; TEMP 36.8; O2SAT 96
[2024-11-17] MEDS: Cholecalciferol (VIT D3) 25 MCG TABLET (1,000 UNITS) 50 MCG PO (09:24)
[2024-11-17] MEDS: Senna Tablet 1 TABLET PO ×2 (09:26→21:01)
--- NOTE | 2024-11-17 12:21 | PN_ITS ---
Subjective Subjective Patient seen and examined with his wrist by his bedside. His was also by his bedside. Patient is much more alert to communicative today. He does not recall what happened in the meeting come to the hospital. He denies any dizziness or lightheadedness, headache, shortness of breath or any other symptoms. Review of systems otherwise negative. Objective Data Objective Data Vital Signs: Vital Signs Temp Pulse Resp BP Pulse Ox O2 Del Method 98.3 F 90 20 H 136/72 H 96 Room Air 11/17/24 09:22 11/17/24 09:22 11/17/24 09:22 11/17/24 09:22 11/17/24 09:22 11/17/24 09:30 Oxygen Delivery Method Room Air Weight: 178 lb 2.136 oz Body Mass Index (BMI) 24.8 Intake & Output: Intake and Output for Last 24 Hours 11/15/24 11/16/24 11/17/24 23:59 23:59 23:59 Intake Total 2690 / 2690 1370 / 1370 Output Total 550 / 550 170 / 170 Balance 2140 / 2140 1200 / 1200 Lab / Micro Data 11/17/24 06:10 11/17/24 06:10 Labs: Laboratory Results - last 24 hr 11/17/24 06:10: WBC 15.6 H, RBC 3.23 L, Hgb 10.4 L, Hct 31.9 L, MCV 98.8 H, MCH 32.2 H, MCHC 32.6, RDW Std Deviation 50.7 H, RDW Coeff of Maria De Jesus 14.0, Plt Count 156, MPV 10.5, Immature Gran % (Auto) 1.700 H, Neut % (Auto) 85.7 H, Lymph % (Auto) 5.5 L, [place] % (Auto) 6.7, Eos % (Auto) 0.2, Baso % (Auto) 0.2, Absolute Neuts (auto) 13.4 H, Absolute Lymphs (auto) 0.85, Nucleated RBC % 0, Platelet Estimate ADEQUATE, Sodium 137, Potassium 3.3, Chloride 107, Carbon Dioxide 19.3 L, Anion Gap 11, BUN 12, Creatinine 1.00, Estim Creat Clear Calc 73.21, Est GFR (MDRD) Non-Af 81, BUN/Creatinine Ratio 11.8, Glucose 115 H, Calcium 7.8 Micro: Microbiology 11/16/24 06:30 Mucosa - Nose SARS-CoV-2, Influenza & RSV (PCR) - Final Physical Exam Const alert and oriented x3 Constitutional Narrative: confusion and lethargy have resolved. General Appearance: cooperative HEENT normocephalic, head/scalp atraumatic, hearing grossly normal bilaterally and moist oral mucous membranes Eyes EOMs intact bilaterally and conjunctivae normal Neck no lymphadenopathy and supple Resp normal respiratory effort, normal air movement, no retractions, no use of accessory muscles and clear to auscultation bilaterally Cardio regular rate, regular rhythm, S1 normal heart sound, S2 normal heart sound and no murmurs GI normal to inspection, nondistended, normoactive bowel sounds, soft to palpation, non-tender and non-distended Extremity normal to inspection, full ROM and no clubbing, cyanosis or edema General Extremity: no tenderness to palpation of joints or extremities Skin General Skin Exam: no breakdown Neuro oriented x3, CN's II-XII intact bilaterally, moves all extremities and no focal motor deficits Sensorium / Orientation: awake and alert Motor Exam: strength 5/5 throughout Psych affect normal Appearance: appropriate Assessment & Plan Assessment/Plan (1) Leukocytosis: (2) Dehydration: PLAN: Plan #Acute encephalopathy * Patient admitted with a complaint of lethargy and confusion. He also had a fever and generally felt unwell. * On admission he has elevated white cell count and was also febrile. Procalcitonin is also elevated. * Blood and urine cultures obtained. Patient started on IV vancomycin and Zosyn. * Encephalopathy has resolved and he is much more alert and communicative. Blood cultures and urine culture still pending. * Will monitor. * * #SIRS criteria * Patient was tachypneic and had a temperature of 103.2 Fahrenheit on admission and also has elevated WBC. * SIRS criteria has resolved. Fever has resolved and patient on room air. WBC down to 15.6. * on broad spectrum antibiotics as above. Will monitor. * #History of stage IV prostate cancer with mets to the bone * He did have CT of the brain on admission we did not show any evidence of mets. According to his he gets Lupron shots as well as oral chemo- enzalutamide * follows with Dr Dai of [facility] oncology * #Hypertension; on amlodipine and lisinopril as well as atenolol #Hyperlipidemia: on statin DVT prophylaxis: lovenox COde status: DNRCCA no intubation * Charges/Coding Visit Charges Inpatient E&M: 75598 Subs Hosp L2
[2024-11-17] MEDS: 0.9% Saline Lock 10 ML Syringe IV ×2 (15:09→21:00)
--- NOTE | 2024-11-17 16:35 | CASEMGMT ---
BRYSON QUEEN NOTE: Therapy notes reviewed. No additional therapy recommended by either PT or OT. Pt requesting walker d/t hip pain. Therapy note also states pt is active w/Palliative care. BRYSON QUEEN to room. Pt resting in bed. Introduced self and role. Pt confirms he would like to get a walker @ discharge. Discussed [employer] and he states to get from [employer]. Pt also verifies he is active w/palliative care through [facility]. Secure e-mail sent to Palliative/[facility] to notify them of pt's hospital admission. Viviane BENTLEY RN CM
[2024-11-17 16:41] VITALS: BP 145/85; PULSE 73; RESP 18; TEMP 36.8; O2SAT 95
[2024-11-17] MEDS: ENZALUTAMIDE 80 MG TABLET 160 MG PO (16:43)
[2024-11-17 20:30] VITALS: PULSE 70; RESP 17; O2SAT 97
[2024-11-17] MEDS: Budesonide Respules 0.5 MG/2 ML AMPUL.NEB. INHALATION (20:31)
[2024-11-17 20:48] VITALS: BP 149/82; PULSE 72; RESP 18; TEMP 36.4; O2SAT 98
[2024-11-17] MEDS: 0.9% Normal Saline (250mL Bag) 250 ML 15 ML IV (21:02)
[2024-11-18] MEDS: Vancomycin Trough/Random Due 1 LAB MC (02:44)
[2024-11-18 02:54] LABS: Hematocrit 33.7 % (40-54); Hemoglobin 11.3 g/dL (13.0-16.5); Immature Granulocytes Count 0.390 X10^3/uL (0.0-0.0); Mean Corp Hgb Conc 33.5 g/dL (32-36); Mean Corpuscular Volume 96.0 fL (80-94); Mean Platelet Vol. 10.1 fl (6.2-12.0); NRBC Flagged by Analyzer 0 % (0-5); POSITIVE MORPHOLOGY YES; Platelet Count 171 K/mm3 (150-450); RBC Distribution Width CV 13.5 % (11.6-14.6); RBC Distribution Width SD 47.8 fl (35.1-43.9); Red Blood Count 3.51 M/mm3 (4.6-6.2); White Blood Count 14.4 K/mm3 (4.4-11.0)
[2024-11-18 02:56] LABS: Differential Indicated SCAN CRITERIA MET
[2024-11-18 03:32] LABS: Anion Gap 11 (5-15); BUN 9 mg/dL (4-19); BUN/Creat Ratio 10.6 RATIO (10-20); Calcium,Total 8.4 mg/dL (7.6-11.0); Carbon Dioxide 19.0 mmol/L (21.0-32.0); Chloride 107 mmol/L (98-108); Estimated Creatinine Clearance 84.15 ml/min (50-250); Glucose 109 mg/dL (70-99); Potassium 3.3 mmol/L (3.3-5.1)
[2024-11-18 03:57] LABS: Vancomycin, Trough Level 11.4 ug/mL (5.0-15.0)
[2024-11-18 04:10] LABS: Differential Comment SCANNED
[2024-11-18] MEDS: Vancomycin HCl 1,500 MG in 0.9% Normal Saline (500mL Bag) 500 ML 250 MG IV ×2 (04:19→16:39)
--- NOTE | 2024-11-18 04:29 | PCM.RX.CS ---
Consult Antibiotic Management Pharmacy has been consulted to manage selected antibiotic: Vancomycin Type of Intervention Type of Consult: Follow-up Labs Labs: Sodium 136 mmol/L (133-145) 11/18/24 02:45 Potassium 3.3 mmol/L (3.3-5.1) 11/18/24 02:45 Chloride 107 mmol/L (98-108) 11/18/24 02:45 Carbon Dioxide 19.0 mmol/L (21.0-32.0) L 11/18/24 02:45 Anion Gap 11 (5-15) 11/18/24 02:45 BUN 9 mg/dL (4-19) 11/18/24 02:45 Creatinine 0.87 mg/dL (0.70-1.20) 11/18/24 02:45 Est GFR (MDRD) Non-Af 93 (>60) 11/18/24 02:45 BUN/Creatinine Ratio 10.6 RATIO (10-20) 11/18/24 02:45 Glucose 109 mg/dL (70-99) H 11/18/24 02:45 Vancomycin Trough 11.4 ug/mL (5.0-15.0) 11/18/24 02:45 Microbiology Microbiology: Microbiology 11/16/24 06:30 Mucosa - Nose SARS-CoV-2, Influenza & RSV (PCR) - Final Dosing Weight Weight used for dosin.8 kg Estimated Creatinine Clearance Estimated Creatinine Clearance: 84 Goal Trough Goal Trough: 15-20 mcg/mL Pharmacy Plan for Drug Dosing Pharmacy Plan for Drug Dosing: Vancomycin trough level of 11.4, drawn 11.5hrs post-dose, was below the target range of 15-20. Will increase dose to 1500mg q12h, and will draw another trough level prior to the fourth dose of the new regimen. Pharmacy Service will continue to monitor and adjust dosing as required. Follow-Up Labs Follow-Up Labs: Trough: Vancomycin Date/Time Labs Ordered Labs to be done on [date and time ordered]: 11/19/24 @1600
[2024-11-18 04:43] VITALS: BP 147/83; PULSE 71; RESP 16; TEMP 36.7; O2SAT 94
[2024-11-18] MEDS: Piperacil/Tazobactam 3.375 GM in 0.9% Normal Saline (50mL MB+) 50 ML IV ×3 (06:31→21:53)
[2024-11-18 09:45] VITALS: BP 136/79; PULSE 67; RESP 22; TEMP 36.7; O2SAT 96
[2024-11-18] MEDS: Potassium Chloride Oral Tablet 20 MEQ 40 MEQ PO (09:48)
[2024-11-18] MEDS: Cholecalciferol (VIT D3) 25 MCG TABLET (1,000 UNITS) 50 MCG PO (09:49)
[2024-11-18] MEDS: Senna Tablet 1 TABLET PO (09:50)
--- NOTE | 2024-11-18 10:58 | CT_ITS ---
PROCEDURE: ABDOMEN/PELVIS W IV CONT ONLY 11/18/2024 REASON FOR EXAM: FEVER OF UNKNOWN ORIGIN, ABD PAIN History of metastatic prostate carcinoma. TECHNIQUE: ABDOMEN/PELVIS W IV CONT ONLY Coronal and Sagittal reconstruction series were provided. CONTRAST: Isovue-300 VOLUME: 100 mL One or more dose reduction techniques were used (e.g., Automated exposure control, adjustment of the mA and/or kV according to patient size, use of iterative reconstruction technique. RADIATION DOSE SUMMARY: CTDlvol: 12.6 mGy DLP: 558.51 mGycm COMPARISON: None FINDINGS: Lung bases: Tiny bilateral pleural effusions and bibasilar atelectasis. Mild coronary artery calcification. Liver: Borderline hepatomegaly. There is a 11.1 cm hypodensity in the anterior aspect of the right lobe of the liver superiorly suggestive of a small cyst. Gallbladder: No gallstones. Spleen: Normal size. Pancreas: Diffuse fatty atrophy. Adrenals: Unremarkable Kidneys: Small bilateral renal cysts. Bladder: Distended urinary bladder. The patient is status post prostatectomy. Reproductive Organs: Penile implant is seen with the reservoir overlying the right groin. Bowel: Fluid-filled dilatation of multiple small bowel loops. The transition point is in the distal ileum. Possible inflammatory changes in the right lower quadrant. Appendix: The patient is status post appendectomy by history. Lymph nodes: Unremarkable. Vasculature: Mild diffuse atherosclerotic calcifications are noted. Peritoneum / Retroperitoneum: Unremarkable. Bones: Degenerative changes of the spine. CT/Abdomen/Pelvis W IV Cont ONLY IMPRESSION: Minimal pleural effusion with bibasilar atelectasis. Small hepatic cyst. Findings in keeping with small-bowel obstruction with the transition point in t he right lower quadrant. Reading Location: [place] [id number]
--- NOTE | 2024-11-18 11:53 | PN.HOSP_ITS ---
Reason for Visit Chief Complaint: weakness, fever Subjective Subjective Saw patient at bedside this morning, present. Patient was mildly fatigued appearing but otherwise sitting back fairly comfortably in bed, conversing normally, in no acute distress. Reports no fevers or chills overnight or this morning. Does note that he has had some abdominal pain and distention over the past day or so and does not feel like eating much. Has been having small bowel movements. No other acute concerns this morning. Objective Data Objective Data Vital Signs: Vital Signs Temp Pulse Resp BP Pulse Ox O2 Del Method 98.1 F 67 22 H 136/79 H 96 Room Air 11/18/24 09:45 11/18/24 09:45 11/18/24 09:45 11/18/24 09:45 11/18/24 09:45 11/18/24 09:45 Oxygen Delivery Method Room Air Weight: 80.8 kg Body Mass Index (BMI) 24.8 Intake & Output: Intake and Output for Last 24 Hours 11/16/24 11/17/24 11/18/24 23:59 23:59 23:59 Intake Total 2690 / 2690 1930 / 1930 822 / 822 Output Total 550 / 550 520 / 520 1300 / 1300 Balance 2140 / 2140 1410 / 1410 -478 / -478 Lab / Micro Data 11/18/24 02:45 11/18/24 02:45 Labs: Laboratory Results - last 24 hr 11/18/24 02:45: WBC 14.4 H, RBC 3.51 L, Hgb 11.3 L, Hct 33.7 L, MCV 96.0 H, MCH 32.2 H, MCHC 33.5, RDW Std Deviation 47.8 H, RDW Coeff of Maria De Jesus 13.5, Plt Count 171, MPV 10.1, Immature Gran % (Auto) 2.700 H, Neut % (Auto) 85.2 H, Lymph % (Auto) 4.4 L, [place] % (Auto) 6.5, Eos % (Auto) 0.9, Baso % (Auto) 0.3, Absolute Neuts (auto) 12.2 H, Absolute Lymphs (auto) 0.63 L, Nucleated RBC % 0, Differential Comment SCANNED, Sodium 136, Potassium 3.3, Chloride 107, Carbon Dioxide 19.0 L, Anion Gap 11, BUN 9, Creatinine 0.87, Estim Creat Clear Calc 84.15, Est GFR (MDRD) Non-Af 93, BUN/Creatinine Ratio 10.6, Glucose 109 H, Calcium 8.4, Phosphorus 1.7 L, Vancomycin Trough 11.4 Micro: Microbiology 11/16/24 07:35 Blood Culture (Wb) - Anticubital Right Blood Culture - Preliminary No growth in 48 hours. 11/16/24 07:30 Blood Culture (Wb) - Anticubital Left Blood Culture - Preliminary No growth in 48 hours. 11/16/24 06:30 Mucosa - Nose SARS-CoV-2, Influenza & RSV (PCR) - Final Physical Exam Const alert, oriented x3, no apparent distress and average body habitus Constitutional Narrative: Pleasant elderly male, mildly fatigued appearing, otherwise sitting back comfortably in bed, conversing normally, in no acute distress. General Appearance: cooperative and comfortable HEENT normocephalic, head/scalp atraumatic, hearing grossly normal bilaterally, nasal mucous membranes and turbinates normal and moist oral mucous membranes Eyes PERRL, EOMs intact bilaterally and conjunctivae normal Neck full ROM Chest inspection of chest normal Resp normal respiratory effort, normal air movement, no use of accessory muscles and clear to auscultation bilaterally Cardio regular rate, regular rhythm, no murmurs and peripheral pulses 2+ throughout GI GI Narrative: Abdomen mildly distended and hard to palpation. Minimal tenderness to palpation noted. Back/Spine normal ROM Extremity normal to inspection, full ROM and no pedal edema Skin no rashes or lesions noted Psych mental status grossly normal Assessment & Plan Assessment/Plan (1) Small bowel obstruction: (2) Gastrointestinal infection: PLAN: Plan Patient is a 69-year-old male who presented to [facility] ED on 11/16/2024 with confusion, fatigue and fevers. 1. Small bowel obstruction with suspected gastrointestinal infection ? Surgery following. Presented with fever/chills and confusion as below. Chest x-ray clear and UA negative so initially no clear source for infection. Patient with mild abdominal pain with distention but was having bowel movements so initially lower concern for intra-abdominal pathology. However, had worsening abdominal pain so CT abdomen pelvis obtained on 11/18 that showed findings consistent with small bowel obstruction with transition point in the right lower quadrant. Patient has significant surgical history for prostate cancer as below, and on further discussion with patient and family he had a small bowel obstruction that was managed conservatively with NG tube and small bowel follow- through at [facility] about 1 year ago with resolution. Per surgery, will place NG tube this evening and likely plan for small bowel follow-through tomorrow. N.p.o. status. Continue IV Zosyn. IV vancomycin discontinued on 11/18. Importantly, if patient was to need surgery, would prefer to have this done at a [facility] hospital so would need transfer at that time. 2. Acute metabolic encephalopathy, resolved ? Suspected that confusion was secondary to infection as above. Has been alert and oriented x 3 since 11/17. Resolved. 3. Metastatic prostate cancer ? Follows with Dr. Dai. Unable to find records but per patient report, was initially diagnosed in late 2020. Was treated with chemotherapy and then had radical prostatectomy done. Apparently had significant complication of bladder rupture about 1 month after prostatectomy requiring second intra-abdominal surgery. Recently found to have bone metastasis to the hip. Okay to continue home Xtandi and decadron while inpatient. Will need close outpatient follow-up on discharge. Chronic medical conditions: ? Hypertension/hyperlipidemia: Continue home amlodipine, atenolol, lisinopril, atorvastatin. ? GERD: Continue home PPI. ? COPD: Not in acute exacerbation. Continue home inhalers. ? Neuropathy: Continue home pregabalin. ? Tobacco dependence: Nicotine patch in place per patient request. Discussed cessation of discharge. DVT prophylaxis: Lovenox CODE STATUS: DNR CCA, DNI Expected disposition: TBD Total clinical time spent by myself addressing the patient's medical issues, reviewing all the data, and collaborating with patient's care team: 35 minutes. Charges/Coding Visit Charges Inpatient E&M: 28676 Subs Hosp L2
[2024-11-18] MEDS: 0.9% Saline Lock 10 ML Syringe IV ×3 (14:19→21:53)
--- NOTE | 2024-11-18 15:17 | CON.PCM.SX_ITS ---
Assessment & Plan Assessment/Plan (1) Small bowel obstruction: PLAN: I have been consulted in conjunction with Dr. Garza. She will independently evaluate this patient. Patient is a 69 y/o M I am following for 1 day history of abdominal distention. CT scan of ab/pel shows a small bowel follow-through. Patient has a complex abdominal surgical history. I am recommending treating the patient with conservative measures with bowel rest, IV fluids and abdominal decompression via NG tube. Plan will be to order a small bowel follow-through tomorrow following decompression. If small bowel follow- through is abnormal, patient will need surgical intervention. Patient's requests that patient be transferred to [facility] for surgical intervention. Patient and patient's have had the opportunity to ask and have questions answered. Patient verbally understands and agrees with the plan. Thank you for allowing us to participate in this patient's care. HPI Consult Data Date of Consult: 11/18/24 HPI Narrative Reason for Consultation: Small bowel obstruction HPI Narrative: TETE AGUILA, is a 69 M who presents with generalized weakness, lethargy, confusion and dehydration of unknown etiology. Patient has stage IV Prostate cancer with mets to bone. He is on a daily chemotherapy medication and follows with Dr. Dai from [facility] oncology. Patient has an abdominal surgical history of a prostatectomy with bladder repair and approximately 20 years ago he had a ruptured appendicitis. He notes his bowel habits have not been the same since his appendectomy. 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 He denies any recent change in his diet. Patient's notes that he has been eating less over the last several days. He notes his last bowel movement was this morning. They deny any change in chemotherapy medication or dosage change. Patient states he has been on oral chemo for approximately 2 months now and has not had any side effects other than fatigue. Patient notes he was hospitalized 1 year ago with a small bowel obstruction at [facility]. He was treated with conservative measures at that time. He stated if the bowel obstruction reoccurred, he would have to have a surgical procedure. Patient's voiced if the patient needed any type of surgery, she wanted the patient to be transferred to [facility]. Patient notes his abdominal distention occurred overnight into today. Patient states he was on the [employer] [place] Patient notes multiple upper body injuries from his days. CT scan of the abdomen/pelvis demonstrated IMPRESSION: Minimal pleural effusion with bibasilar atelectasis. Small hepatic cyst. Findings in keeping with small-bowel obstruction with the transition point in the right lower quadrant. WBC is currently 14.4. [facility] Medical History (Updated 11/18/24 @ 15:36 by Tatiana VICKERS, PALayaC) Osteoarthritis Hyperlipidemia GERD (gastroesophageal reflux disease) HTN (hypertension) Abdominal aortic aneurysm (AAA) HTN (hypertension) COPD (chronic obstructive pulmonary disease) Closed cervical spine fracture Prostate cancer metastatic to pelvis Home Medications ?Medication ?Instructions ?Recorded ?Last Taken ?Type acetaminophen 500 mg capsule 500 mg PO Q8H PRN Pain Unknown History albuterol sulfate 90 mcg/actuation 2 inh inhalation Q4 H Respitory 11/16/24 11/15/24 History aerosol inhaler amlodipine 5 mg tablet 5 mg PO DAILY B/P 11/16/24 0 11/15/24 History atenolol 25 mg tablet 25 mg PO DAILY B/P 11/16/24 11/15/24 History atenolol 50 mg tablet 50 mg PO DAILY B/P 11/16/24 11/15/24 History atorvastatin 40 mg tablet 40 mg PO DAILY Cholesterol 0 11/16/24 11/15/24 History cholecalciferol (vitamin D3) 50 50 mcg PO DAILY Bone h ealth 11/16/24 11/15/24 History mcg (2,000 unit) capsule cyclobenzaprine 10 mg tablet 10 mg PO QHS Muscle achs 11/16/24 11/15/24 History dexamethasone 1 mg tablet 1 mg PO Q24H chemo treatment s 11/16/24 11/15/24 History enzalutamide 80 mg tablet (Xtandi) 160 mg PO Q24H Pros ryan cancer 11/16/24 11/15/24 History famotidine 40 mg tablet 40 mg PO DAILY Acid 11/16/24 11/15/24 History fluticasone fur. 200 mcg-umeclid 1 inh inhalation EVELYNE Y respitory 11/16/24 11/15/24 History 62.5 mcg-vilant 25 mcg inhalat.powder (Trelegy Ellipta) lisinopril 40 mg tablet 40 mg PO DAILY B/P 11/16/24 11/15/24 History meloxicam 15 mg tablet 15 mg PO DAILY 11/16/24 Unkn own History multivitamin 1 tab PO DAILY General healt h 11/16/24 11/15/24 History omeprazole 40 mg capsule,delayed 40 mg PO BID Gerd 03/3111/15/24 History release pregabalin 150 mg capsule 150 mg PO Q8 Mental health 0 11/16/24 11/15/24 History sennosides 8.6 mg capsule (senna) 8.6 mg PO BID consti pation 11/16/24 11/15/24 History Allergy/AdvReac Type Severity Reaction Status Date / Time morphine Allergy Rash Verified 11/16/24 05:55 prednisone AdvReac Other Verified 11/16/24 05:55 Surgical History Hx of bladder repair surgery Hx of prostatectomy S/P ORIF (open reduction internal fixation) fracture History of herniorrhaphy Hx of appendectomy Social History (Updated 09/13/22 @ 21:[address] Sb Mitchell, DO) Smoking Status: Current every day smoker tobacco type: cigarettes ROS Constitutional Constitutional: Reports systems reviewed and no addt'l complaints, except as documented Eyes Eyes: Reports systems reviewed and no addt'l complaints, except as documented ENT HEENT: Reports systems reviewed and no addt'l complaints, except as documented Cardiovascular Cardiovascular: Reports systems reviewed and no addt'l complaints, except as documented Respiratory/Chest Respiratory/Chest: Reports systems reviewed and no addt'l complaints, except as documented Gastrointestinal Gastrointestinal: Reports systems reviewed and no addt'l complaints, except as documented Genitourinary Genitourinary: Reports systems reviewed and no addt'l complaints, except as documented Musculoskeletal Musculoskeletal: Reports systems reviewed and no addt'l complaints, except as documented Integumentary Integumentary: Reports systems reviewed and no addt'l complaints, except as documented Neurologic Neurologic: Reports systems reviewed and no addt'l complaints, except as documented Psychiatric Psychiatric: Reports systems reviewed and no addt'l complaints, except as documented Endocrine Endocrinology: Reports systems reviewed and no addt'l complaints, except as documented Hematologic/Lymphatic Hematologic/Lymphatic: Reports systems reviewed and no addt'l complaints, except as documented Allergic/Immunologic Allergic/Immunologic: Reports systems reviewed and no addt'l complaints, except as documented Physical Exam Const alert, oriented x3 and no apparent distress HEENT normocephalic and head/scalp atraumatic Eyes PERRL Neck full ROM Resp normal respiratory effort and clear to auscultation bilaterally Cardio regular rate and regular rhythm GI GI Narrative: Abdomen- firm, distended, slight tenderness in the right lower quadrant, generalized pressure. Hypoactive bowel sounds. no CVA tenderness Back/Spine no CVA tenderness Extremity normal to inspection Skin no rashes or lesions noted Neuro no focal motor deficits and no sensory deficits noted Psych mental status grossly normal Lab / Micro Data 11/18/24 02:45 11/18/24 02:45 Labs: Laboratory Results - last 24 hr 11/18/24 02:45: WBC 14.4 H, RBC 3.51 L, Hgb 11.3 L, Hct 33.7 L, MCV 96.0 H, MCH 32.2 H, MCHC 33.5, RDW Std Deviation 47.8 H, RDW Coeff of Maria De Jesus 13.5, Plt Count 171, MPV 10.1, Immature Gran % (Auto) 2.700 H, Neut % (Auto) 85.2 H, Lymph % (Auto) 4.4 L, [place] % (Auto) 6.5, Eos % (Auto) 0.9, Baso % (Auto) 0.3, Absolute Neuts (auto) 12.2 H, Absolute Lymphs (auto) 0.63 L, Nucleated RBC % 0, Differential Comment SCANNED, Sodium 136, Potassium 3.3, Chloride 107, Carbon Dioxide 19.0 L, Anion Gap 11, BUN 9, Creatinine 0.87, Estim Creat Clear Calc 84.15, Est GFR (MDRD) Non-Af 93, BUN/Creatinine Ratio 10.6, Glucose 109 H, Calcium 8.4, Phosphorus 1.7 L, Vancomycin Trough 11.4 Micro: Microbiology 11/16/24 07:35 Blood Culture (Wb) - Anticubital Right Blood Culture - Preliminary No growth in 48 hours. 11/16/24 07:30 Blood Culture (Wb) - Anticubital Left Blood Culture - Preliminary No growth in 48 hours. Imaging Radiology Impression Abdomen/Pelvis CT 11/18/24 10:58 IMPRESSION: Minimal pleural effusion with bibasilar atelectasis. Small hepatic cyst. Findings in keeping with small-bowel obstruction with the transition point in the right lower quadrant. Reading Location: [id number] Charges/Coding Visit Charges Inpatient E&M: 68890 Init Hosp L2
[2024-11-18 16:26] VITALS: BP 154/85; PULSE 65; RESP 18; TEMP 37.4; O2SAT 93
--- NOTE | 2024-11-18 17:00 | RAD_ITS ---
PROCEDURE: ABDOMEN SINGLE VIEW (PORTABLE) 11/18/2024 REASON FOR EXAM: NG TUBE PLACEMENT TECHNIQUE: ABDOMEN SINGLE VIEW (PORTABLE) COMPARISON: Abdominal CT earlier same day 11/18/2024. FINDINGS: Enteric tube courses midline extending below the diaphragm, side port and distal tip terminating in the left upper quadrant in the expected location of the stomach. Imaged lung bases are clear. Mildly distended air-filled loops of bowel in the upper abdomen. No discernible free air. Multilevel degenerative changes of the spine. RAD/Abdomen Single View (Portable) IMPRESSION: Enteric tube terminating appropriately within the stomach. Reading Location: [id number]
[2024-11-18] MEDS: Potassium Phosphate 30 MM in 0.9% Normal Saline (250mL Bag) 250 ML 55 MM IV (19:01)
[2024-11-18 21:35] VITALS: BP 154/88; PULSE 64; RESP 14; TEMP 36.5; O2SAT 97
[2024-11-19 03:35] VITALS: BP 156/95; PULSE 77; RESP 16; TEMP 36.6; O2SAT 95
[2024-11-19] MEDS: Vancomycin HCl 1,500 MG in 0.9% Normal Saline (500mL Bag) 500 ML 250 MG IV (03:41)
[2024-11-19] MEDS: Piperacil/Tazobactam 3.375 GM in 0.9% Normal Saline (50mL MB+) 50 ML IV ×3 (06:09→21:25)
[2024-11-19 06:10] VITALS: BP 159/89; PULSE 67; RESP 14; TEMP 36.7; O2SAT 97
[2024-11-19 06:30] VITALS: O2SAT 95
[2024-11-19 07:02] LABS: Hematocrit 34.6 % (40-54); Hemoglobin 11.2 g/dL (13.0-16.5); Mean Corp Hgb Conc 32.4 g/dL (32-36); Mean Corpuscular Volume 96.6 fL (80-94); Mean Platelet Vol. 10.5 fl (6.2-12.0); Platelet Count 188 K/mm3 (150-450); RBC Distribution Width CV 13.6 % (11.6-14.6); RBC Distribution Width SD 48.7 fl (35.1-43.9); Red Blood Count 3.58 M/mm3 (4.6-6.2); White Blood Count 12.2 K/mm3 (4.4-11.0)
[2024-11-19 07:31] LABS: Anion Gap 9 (5-15); BUN 11 mg/dL (4-19); BUN/Creat Ratio 9.9 RATIO (10-20); Calcium,Total 9.0 mg/dL (7.6-11.0); Carbon Dioxide 20.9 mmol/L (21.0-32.0); Chloride 110 mmol/L (98-108); Estimated Creatinine Clearance 69.06 ml/min (50-250); Glucose 105 mg/dL (70-99); Potassium 4.0 mmol/L (3.3-5.1)
--- NOTE | 2024-11-19 07:35 | RAD_ITS ---
CLINICAL HISTORY: Partial small bowel obstruction. 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 Injected 120 mL enteric contrast/water. FINDINGS: Vamp Maker view: Enteric tube tip terminating in the gastric body. Small bowel loops are distended. Contrast progresses normally from the stomach through jejunum by 3 hours, reaching the colon and rectum by 6 hours. At 22 hours, a small amount of residual colonic contrast remains. RAD/Small Bowel Series Only IMPRESSION: 1. No evidence of complete bowel obstruction. Normal progression of contrast i nto the colon and rectum by 6 hours. 2. Diffuse small bowel distention, which may reflect an ileus or partial obstr uction. Recommend clinical correlation. Reading Location: [id number]
--- NOTE | 2024-11-19 07:38 | PN.SURG_ITS ---
Subjective Subjective Patient states he is having small amount of flatus. Patient's canisters at 700 with bilious fluid likely was not draining overnight as able to get about 200 out this morning with flushing out the air vent etc. Objective Data Objective Data Vital Signs: Vital Signs Temp Pulse Resp BP Pulse Ox O2 Del Method 98.1 F 67 14 159/89 H 97 Room Air 11/19/24 06:10 11/19/24 06:10 11/19/24 06:10 11/19/24 06:10 11/19/24 06:10 11/19/24 06:10 Oxygen Delivery Method Room Air Weight: 178 lb 2.136 oz Body Mass Index (BMI) 24.8 Intake & Output: Intake and Output for Last 24 Hours 11/17/24 11/18/24 11/19/24 23:59 23:59 23:59 Intake Total 1930 / 1930 2152 / 2152 640 / 640 Output Total 520 / 520 2250 / 2250 600 / 600 Balance 1410 / 1410 -98 / -98 40 / 40 Lab / Micro Data 11/19/24 06:45 11/19/24 06:45 Labs: Laboratory Results - last 24 hr 11/18/24 02:45: Phosphorus 1.7 L 11/19/24 06:45: WBC 12.2 H, RBC 3.58 L, Hgb 11.2 L, Hct 34.6 L, MCV 96.6 H, MCH 31.3, MCHC 32.4, RDW Std Deviation 48.7 H, RDW Coeff of Maria De Jesus 13.6, Plt Count 188, MPV 10.5, Sodium 140, Potassium 4.0, Chloride 110 H, Carbon Dioxide 20.9 L, Anion Gap 9, BUN 11, Creatinine 1.06, Estim Creat Clear Calc 69.06, Est GFR (MDRD) Non-Af 75, BUN/Creatinine Ratio 9.9 L, Glucose 105 H, Calcium 9.0 Micro: Microbiology 11/16/24 07:35 Blood Culture (Wb) - Anticubital Right Blood Culture - Preliminary No growth in 48 hours. 11/16/24 07:30 Blood Culture (Wb) - Anticubital Left Blood Culture - Preliminary No growth in 48 hours. 11/16/24 06:30 Mucosa - Nose SARS-CoV-2, Influenza & RSV (PCR) - Final Radiography Diagnostic Testing: Radiology Impression Abdomen/Pelvis CT 11/18/24 10:58 IMPRESSION: Minimal pleural effusion with bibasilar atelectasis. Small hepatic cyst. Findings in keeping with small-bowel obstruction with the transition point in the right lower quadrant. Reading Location: [facility] KUB X-Ray 11/18/24 17:00 IMPRESSION: Enteric tube terminating appropriately within the stomach. Reading Location: [facility] Physical Exam Narrative NG in place Const oriented x3 and no apparent distress Resp normal respiratory effort GI soft to palpation GI Narrative: Mildly distended Palpation: tender other (Mild diffuse no peritoneal signs) Assessment & Plan Assessment/Plan (1) Small bowel obstruction: PLAN: Plan to get a small bowel follow-through this morning. If patient does any surgical invention he request transfer to [facility]. Autumn Garza M.D. Pager: [phone] [facility] [address] [place] [address], [facility], [address] [place] [address] Office: [phone] Charges/Coding Visit Charges Inpatient E&M: 42298 Subs Hosp L2
[2024-11-19] MEDS: Famotidine 200 MG/20 ML MDV 20 MG in 0.9% Normal Saline (Pres. free 8 ML 300 MG IV ×2 (10:27→21:24)
--- NOTE | 2024-11-19 10:57 | CASEMGMT ---
Tertiary Hospitals In-network with?MCR insurance if transfer is recommended is as follows: [facility], [facility], [place], [facility], [facility], [facility], , [place], [facility], [facility], and [place]. Viviane BSN RN CM
--- NOTE | 2024-11-19 11:01 | PCM.PN.HOSP ---
Reason for Visit Chief Complaint: weakness, fever Subjective Subjective Saw patient at bedside this morning. Was sitting comfortably at the edge of the bed with NG tube in place. Noted that he was about to have a bowel movement when I saw him. Had significant NG tube output overnight and notes that his abdominal discomfort does feel moderately improved today. No other acute concerns currently. Objective Data Objective Data Vital Signs: Vital Signs Temp Pulse Resp BP Pulse Ox O2 Del Method 98.1 F 67 14 159/89 H 97 Room Air 11/19/24 06:10 11/19/24 06:10 11/19/24 06:10 11/19/24 06:10 11/19/24 06:10 11/19/24 08:12 Oxygen Delivery Method Room Air Weight: 80.8 kg Body Mass Index (BMI) 24.8 Intake & Output: Intake and Output for Last 24 Hours 11/17/24 11/18/24 11/19/24 23:59 23:59 23:59 Intake Total 1930 / 1930 2152 / 2152 730 / 730 Output Total 520 / 520 2250 / 2250 600 / 600 Balance 1410 / 1410 -98 / -98 130 / 130 Lab / Micro Data 11/19/24 06:45 11/19/24 06:45 Labs: Laboratory Results - last 24 hr 11/19/24 06:45: WBC 12.2 H, RBC 3.58 L, Hgb 11.2 L, Hct 34.6 L, MCV 96.6 H, MCH 31.3, MCHC 32.4, RDW Std Deviation 48.7 H, RDW Coeff of Maria De Jesus 13.6, Plt Count 188, MPV 10.5, Sodium 140, Potassium 4.0, Chloride 110 H, Carbon Dioxide 20.9 L, Anion Gap 9, BUN 11, Creatinine 1.06, Estim Creat Clear Calc 69.06, Est GFR (MDRD) Non-Af 75, BUN/Creatinine Ratio 9.9 L, Glucose 105 H, Calcium 9.0 Micro: Microbiology 11/17/24 08:04 Urine, Catheterized Urine Culture - Final Culture exhibits no growth. 11/16/24 07:35 Blood Culture (Wb) - Anticubital Right Blood Culture - Preliminary No growth in 48 hours. 11/16/24 07:30 Blood Culture (Wb) - Anticubital Left Blood Culture - Preliminary No growth in 48 hours. 11/16/24 06:30 Mucosa - Nose SARS-CoV-2, Influenza & RSV (PCR) - Final Radiography Diagnostic Testing: Radiology Impression Abdomen/Pelvis CT 11/18/24 10:58 IMPRESSION: Minimal pleural effusion with bibasilar atelectasis. Small hepatic cyst. Findings in keeping with small-bowel obstruction with the transition point in the right lower quadrant. Reading [facility] 11/18/24 17:00 IMPRESSION: Enteric tube terminating appropriately within the stomach. Reading Location: [facility] Physical Exam Const alert, oriented x3, no apparent distress and average body habitus Constitutional Narrative: Pleasant elderly male, mildly fatigued appearing, otherwise sitting back comfortably in bed, conversing normally, in no acute distress. Stable. General Appearance: cooperative and comfortable HEENT normocephalic, head/scalp atraumatic, hearing grossly normal bilaterally, nasal mucous membranes and turbinates normal and moist oral mucous membranes HEENT Narrative: NG tube in place; not connected to suction as patient was about to use the restroom. Eyes PERRL, EOMs intact bilaterally and conjunctivae normal Neck full ROM Chest inspection of chest normal Resp normal respiratory effort, normal air movement, no use of accessory muscles and clear to auscultation bilaterally Cardio regular rate, regular rhythm, no murmurs and peripheral pulses 2+ throughout GI GI Narrative: Abdomen still mildly distended but now soft and nontender to palpation. Improving. Back/Spine normal ROM Extremity normal to inspection, full ROM and no pedal edema Skin no rashes or lesions noted Psych mental status grossly normal Assessment & Plan Assessment/Plan (1) Small bowel obstruction: (2) Gastrointestinal infection: PLAN: Plan Patient is a 69-year-old male who presented to [facility] ED on 11/16/2024 with confusion, fatigue and fevers. 1. Small bowel obstruction with suspected gastrointestinal infection ? Surgery following. Presented with fever/chills and confusion as below. Chest x-ray clear and UA negative so initially no clear source for infection. However, had worsening abdominal pain and CT abdomen pelvis on 11/18 showed SBO with transition point in the RLQ. Significant surgical history for prostate cancer as below, including SBO in late 2022 at [facility] managed with NG tube with resolution. Patient and family noted that if surgery is needed, they would want transfer to a [facility] facility for this. NG tube placed on evening of 11/18 patient had approximately 900 cc of output by morning of 11/19. Small bowel follow-through completed on 11/19, read pending but per surgery it appears he continues to have SBO. Transfer initiated to [facility] on afternoon of 11/19. Continue IV Zosyn. N.p.o. status. Appreciate further surgery recommendations. 2. Acute metabolic encephalopathy, resolved ? Suspected that confusion was secondary to infection as above. Has been alert and oriented x 3 since 11/17. Resolved. 3. Metastatic prostate cancer ? Follows with Dr. Dai. Unable to find records but per patient report, was initially diagnosed in late 2020. Was treated with chemotherapy and then had radical prostatectomy done. Apparently had significant complication of bladder rupture about 1 month after prostatectomy requiring second intra-abdominal surgery. He was hospitalized at [facility] In late 2022 for a small bowel obstruction that improved with conservative management as above. Recently found to have bone metastasis to the hip. Okay to continue home Xtandi and decadron while inpatient. Chronic medical conditions: ? Hypertension/hyperlipidemia: Continue home amlodipine, atenolol, lisinopril, atorvastatin. ? GERD: Continue home PPI. ? COPD: Not in acute exacerbation. Continue home inhalers. ? Neuropathy: Continue home pregabalin. ? Tobacco dependence: Nicotine patch in place per patient request. Discussed cessation of discharge. DVT prophylaxis: Lovenox CODE STATUS: DNR CCA, DNI Expected disposition: Transfer to [facility], [facility] Total clinical time spent by myself addressing the patient's medical issues, reviewing all the data, and collaborating with patient's care team: 35 minutes. Charges/Coding Visit Charges Inpatient E&M: 00105 Subs Hosp L2
[2024-11-19 12:10] VITALS: BP 150/90; PULSE 66; RESP 17; TEMP 36.7; O2SAT 95
[2024-11-19 17:30] VITALS: BP 138/78; PULSE 68; RESP 17; TEMP 37; O2SAT 97
[2024-11-19 21:20] VITALS: BP 158/89; PULSE 71; RESP 16; TEMP 36.8; O2SAT 97
[2024-11-19] MEDS: 0.9% Saline Lock 10 ML Syringe IV (21:25)
[2024-11-20 03:25] VITALS: BP 146/85; PULSE 74; RESP 14; TEMP 36.2; O2SAT 96
[2024-11-20 05:35] VITALS: BP 153/81; PULSE 76; RESP 16; TEMP 36.5; O2SAT 95
[2024-11-20] MEDS: Piperacil/Tazobactam 3.375 GM in 0.9% Normal Saline (50mL MB+) 50 ML IV (05:40)
--- NOTE | 2024-11-20 08:59 | PCM.PN.SRG ---
Subjective Subjective Patient reports he is passing flatus and had a small bowel movement. He would like a diet and he would like to go home. He is not having any abdominal pain or nausea or vomiting. Objective Data Objective Data Vital Signs: Vital Signs Temp Pulse Resp BP Pulse Ox O2 Del Method 97.7 F L 76 16 153/81 H 95 Room Air 11/20/24 05:35 11/20/24 05:35 11/20/24 05:35 11/20/24 05:35 11/20/24 05:35 11/20/24 05:35 Oxygen Delivery Method Room Air Weight: 178 lb 2.136 oz Body Mass Index (BMI) 24.8 Intake & Output: Intake and Output for Last 24 Hours 11/18/24 11/19/24 11/20/24 23:59 23:59 23:59 Intake Total 2152 / 2152 820 / 820 50 / 50 Output Total 2250 / 2250 1250 / 1250 Balance -98 / -98 -430 / -430 50 / 50 Lab / Micro Data 11/19/24 06:45 11/19/24 06:45 Micro: Microbiology 11/17/24 08:04 Urine, Catheterized Urine Culture - Final Culture exhibits no growth. 11/16/24 07:35 Blood Culture (Wb) - Anticubital Right Blood Culture - Preliminary No growth in 48 hours. 11/16/24 07:30 Blood Culture (Wb) - Anticubital Left Blood Culture - Preliminary No growth in 48 hours. 11/16/24 06:30 Mucosa - Nose SARS-CoV-2, Influenza & RSV (PCR) - Final Physical Exam Const oriented x3 and no apparent distress Resp normal respiratory effort GI soft to palpation and non-tender Assessment & Plan Assessment/Plan (1) Small bowel obstruction: PLAN: The patient has bowel function today. He would like to try diet and go home today if possible. I was bedside to clear liquid diet and advance as tolerated. If he tolerates a diet he may be discharged home. Sanjiv Murray MD Pager: [facility] [address] [place] [address], [address] [place] [address] Office:
[2024-11-20] MEDS: Cholecalciferol (VIT D3) 25 MCG TABLET (1,000 UNITS) 50 MCG PO (12:02)
[2024-11-20] MEDS: Famotidine 200 MG/20 ML MDV 20 MG in 0.9% Normal Saline (Pres. free 8 ML 300 MG IV (12:16)
--- NOTE | 2024-11-20 13:16 | DCINST_ITS ---
Discharge Instructions DC O2, CPAP, BIPAP needs Home O2 Discharge instructions: No Dressing / Incision Discharge Activity: Return to Normal Activity Weight Bearing Status: Full weight bearing Follow Up Care Test Results: Test results from this visit will be discussed in further detail at your follow- up appointment, if applicable. Discharge Plan Admission Admit Date/Time: 11/16/24 11:32 Primary Reason for Your Visit: ileus Attending Provider: Shashank Carter Primary Care Provider: Killian Howard Consulting Providers: Grace Haley; Autumn Garza; Sander Feliz Discharge Orders/Prescriptions Prescriptions: New lactulose 10 gram/15 mL solution 20 g PO UD Qty: 946 0RF Rx Instructions: 20 g once or twice daily to avoid constipation Continued meloxicam 15 mg tablet 15 mg PO DAILY dexamethasone 1 mg tablet 1 mg PO Q24H Trelegy Ellipta 200-62.5-25 mcg blister with device 1 inh inhalation DAILY famotidine 40 mg tablet 40 mg PO DAILY amlodipine 5 mg tablet 5 mg PO DAILY omeprazole 40 mg capsule,delayed release(DR/EC) 40 mg PO BID lisinopril 40 mg tablet 40 mg PO DAILY senna 8.6 mg capsule 8.6 mg PO BID atorvastatin 40 mg tablet 40 mg PO DAILY atenolol 25 mg tablet 25 mg PO DAILY albuterol sulfate 90 mcg/actuation HFA aerosol inhaler 2 inh inhalation Q4H atenolol 50 mg tablet 50 mg PO DAILY pregabalin 150 mg capsule 150 mg PO Q8 Xtandi 80 mg tablet 160 mg PO Q24H cyclobenzaprine 10 mg tablet 10 mg PO QHS cholecalciferol (vitamin D3) 50 mcg (2,000 unit) capsule 50 mcg PO DAILY multivitamin Tablet 1 tab PO DAILY acetaminophen 500 mg capsule 500 mg PO Q8H PRN Referrals / Follow Up: Killian Howard MD [Primary Care Provider] - Within 2 Weeks Disposition Disposition (needs filled in before D/C Order can be placed): Home, Self Care
--- NOTE | 2024-11-20 13:22 | PCM.DC.SUM ---
Providers Date of Admission: 11/16/24 Date of Discharge: 11/20/24 Primary Care Physician: Dr. Killian Howard MD Consultations 11/18/24 14:15 Consult: General Surgery Routine Consulting Provider: Autumn Garza Reason for Consult: SBO EMERGENT Consult: No MD Notified: Yes Date Notified: 11/18/24 Time Notified: 14:25 Method of Notification: Text Reason For Visit: DEBILITY, WEAKNESS Diagnosis Discharge Diagnosis (1) Small bowel obstruction: Status: Acute Code(s): K56.609 - Unspecified intestinal obstruction, unspecified as to partial versus complete obstruction Plan 1. Small bowel obstruction #2 metabolic encephalopathy secondary to gastroenteritis #3 essential hypertension #4 hyperlipidemia #5 viral gastroenteritis Medications at Discharge Home Medications acetaminophen 500 mg capsule 500 mg PO Q8H PRN Pain 11/16/24 albuterol sulfate 90 mcg/actuation aerosol inhaler 2 inh inhalation Q4H Respitory 11/16/24 amlodipine 5 mg tablet 5 mg PO DAILY B/P 11/16/24 atenolol 25 mg tablet 25 mg PO DAILY B/P 11/16/24 atenolol 50 mg tablet 50 mg PO DAILY B/P 11/16/24 atorvastatin 40 mg tablet 40 mg PO DAILY Cholesterol 11/16/24 cholecalciferol (vitamin D3) 50 mcg (2,000 unit) capsule 50 mcg PO DAILY Bone health 11/16/24 cyclobenzaprine 10 mg tablet 10 mg PO QHS Muscle achs 11/16/24 dexamethasone 1 mg tablet 1 mg PO Q24H chemo treatments 11/16/24 enzalutamide 80 mg tablet (Xtandi) 160 mg PO Q24H Prostate cancer 11/16/24 famotidine 40 mg tablet 40 mg PO DAILY Acid 11/16/24 fluticasone fur. 200 mcg-umeclid 62.5 mcg-vilant 25 mcg inhalat.powder (Trelegy Ellipta) 1 inh inhalation DAILY respitory 11/16/24 lisinopril 40 mg tablet 40 mg PO DAILY B/P 11/16/24 meloxicam 15 mg tablet 15 mg PO DAILY pain 11/16/24 multivitamin 1 tab PO DAILY General health 11/16/24 omeprazole 40 mg capsule,delayed release 40 mg PO BID Gerd 11/16/24 pregabalin 150 mg capsule 150 mg PO Q8 Mental health 11/16/24 sennosides 8.6 mg capsule (senna) 8.6 mg PO BID constipation 11/16/24 lactulose 10 gram/15 mL oral solution 20 g (30 mL) PO UD #946 mL 11/20/24 Hospital Course Operations None Procedures None Summary of Care Provided Minutes Spent on Discharge: 31 Hospital Course: This 69-year-old white male was seen in the emergency room at [facility] with complaints of fever and chills as well as malaise and fatigue. Workup in the emergency room included labs which included a CHEM panel which was unremarkable, procalcitonin was elevated at 2.16, white blood cell count was elevated at 15.6, CT of the brain showed no acute intracranial hemorrhage midline shift or mass effect. Chest x-ray showed no acute cardiopulmonary process. Patient was febrile in the emergency room with a temp of 103.2. Patient was lethargic and slow to respond to questions. He had difficulty ambulating secondary to generalized weakness, due to the fact the patient is on daily oral chemotherapy for prostate cancer, IV antibiotics were administered and the patient was admitted to PCU. Patient improved with IV fluids and IV antibiotics, he did complain of some abdominal pain and distention, CT of the abdomen and pelvis was obtained on 11/18/2024 that showed findings consistent with small bowel obstruction with a transition point in the right lower quadrant. An NG was inserted and the patient was seen by general surgery. Patient's abdominal distention improved and he was passing flatus, NG was removed and the patient was placed on clear liquids and then his diet was advanced and he tolerated the change of diet. On 11/20/2024, patient was seen and examined: On examination he appeared in good health and spirits. Vital signs as documented. Skin warm and dry and without overt rashes. Neck without JVD, neck was supple, trachea midline, thyroid was normal. Lungs clear bilaterally, normal air movement was noted. Heart exam notable for regular rhythm, normal sounds and absence of murmurs, rubs or gallops. Abdomen unremarkable and without evidence of organomegaly, masses, or abdominal aortic enlargement. Bowel sounds are present, abdomen is not distended. Extremities nonedematous, no cyanosis was noted, no clubbing was noted. Neuro: Cranial nerves II through XII are grossly intact, no focal motor deficits were noted, sensation to light touch and pinprick intact, motor exam 5/5 throughout. Psych: Patient is alert and oriented x3, he does not appear anxious or depressed, he does not appear agitated. Patient was discharged home in stable condition on 11/20/2024. Weight / BMI Weight Weight: 80.8 kg Body Mass Index (BMI) 24.8 ABG / Lab / Microbiology Data 11/19/24 06:45 11/19/24 06:45 Microbiology: Microbiology 11/16/24 07:35 Blood Culture (Wb) - Anticubital Right Blood Culture - Final No growth in 5 days. 11/16/24 07:30 Blood Culture (Wb) - Anticubital Left Blood Culture - Final No growth in 5 days. 11/17/24 08:04 Urine, Catheterized Urine Culture - Final Culture exhibits no growth. 11/16/24 06:30 Mucosa - Nose SARS-CoV-2, Influenza & RSV (PCR) - Final Radiography Diagnostic Testing: Radiology Impression Small Bowel X-Ray 11/19/24 07:35 IMPRESSION: 1. No evidence of complete bowel obstruction. Normal progression of contrast into the colon and rectum by 6 hours. 2. Diffuse small bowel distention, which may reflect an ileus or partial obstruction. Recommend clinical correlation. Reading Location: [id number]/C Instructions Weight Bearing Status: Full weight bearing DC O2, CPAP, BIPAP Needs Home O2 Discharge instructions: No Meaningful Use Info Meaningful Use Meaningful Use Diagnoses (Choose all that apply): None applicable Discharge Plan Admission Admit Date/Time: 11/16/24 11:32 Primary Reason for Your Visit: ileus Attending Provider: Shashank Carter Primary Care Provider: Killian Howard Consulting Providers: Grace Haley; Autumn Garza; Sander Feliz Discharge Orders/Prescriptions Prescriptions: New lactulose 10 gram/15 mL solution 20 g PO UD Qty: 946 0RF Rx Instructions: 20 g once or twice daily to avoid constipation Continued meloxicam 15 mg tablet 15 mg PO DAILY dexamethasone 1 mg tablet 1 mg PO Q24H Trelegy Ellipta 200-62.5-25 mcg blister with device 1 inh inhalation DAILY famotidine 40 mg tablet 40 mg PO DAILY amlodipine 5 mg tablet 5 mg PO DAILY omeprazole 40 mg capsule,delayed release(DR/EC) 40 mg PO BID lisinopril 40 mg tablet 40 mg PO DAILY senna 8.6 mg capsule 8.6 mg PO BID atorvastatin 40 mg tablet 40 mg PO DAILY atenolol 25 mg tablet 25 mg PO DAILY albuterol sulfate 90 mcg/actuation HFA aerosol inhaler 2 inh inhalation Q4H atenolol 50 mg tablet 50 mg PO DAILY pregabalin 150 mg capsule 150 mg PO Q8 Xtandi 80 mg tablet 160 mg PO Q24H cyclobenzaprine 10 mg tablet 10 mg PO QHS cholecalciferol (vitamin D3) 50 mcg (2,000 unit) capsule 50 mcg PO DAILY multivitamin Tablet 1 tab PO DAILY acetaminophen 500 mg capsule 500 mg PO Q8H PRN Referrals / Follow Up: Killian Howard MD [Primary Care Provider] - Within 2 Weeks Disposition Disposition (needs filled in before D/C Order can be placed): Home, Self Care Charges/Coding Visit Charges Inpatient E&M: 81689 Disch Hosp >30min
== END 2024-11-20 14:14 | disposition home or self-care (01) | DRG 388 ==
LOC: ED 11:12 → PCU 12:23
PROVIDERS: Hospitalist; Admitting Provider Student in an Organized Health Care Education/Training Program; Emergency Provider Emergency Medicine; PCP Family Medicine; Visit Provider Internal Medicine
DX: K56.609 Unspecified intestinal obstruction, unspecified as to partial versus complete obstruction (principal); G93.41 Metabolic encephalopathy; C79.51 Secondary malignant neoplasm of bone; J98.11 Atelectasis; C61 Malignant neoplasm of prostate; D72.829 Elevated white blood cell count, unspecified; A08.4 Viral intestinal infection, unspecified; Z66 Do not resuscitate; J44.9 Chronic obstructive pulmonary disease, unspecified; K76.89 Other specified diseases of liver; I10 Essential (primary) hypertension; E78.5 Hyperlipidemia, unspecified; E86.0 Dehydration; K21.9 Gastro-esophageal reflux disease without esophagitis; G62.9 Polyneuropathy, unspecified; F17.210 Nicotine dependence, cigarettes, uncomplicated; Z79.51 Long term (current) use of inhaled steroids; Z79.899 Other long term (current) drug therapy
CPT/HCPCS: 36415; 70450; 71045; 74018; 74177; 74250; 80048; 80076; 80202; 81001; 82140; 83605; 83735; 84100; 84145; 85025; 85027; 87040; 87086; 87631; 94640; 97161; 97166; 99285; 99406; P9612; A4216